=== PATIENT | female | born 1975 | race Caucasian/White ===

== ENCOUNTER → 2023-11-15 | Outpatient (CLI) | payer MEDICAID, SELFPAY ==
[2023-11-15 17:38] LABS: Absolute Lymphocyte Count 2.49 X10^3/uL (0.83-4.51); Absolute Neutrophil Count 3.6 X10^3/uL (2.0-7.7); Basophil# 0.03 X10^3/uL; Basophil% 0.5 % (0-1); Eosinophil# 0.12 X10^3/uL; Eosinophils% 1.8 % (0-5); Hematocrit 40.8 % (37-47); Hemoglobin 13.4 g/dL (12.0-15.0); Lymphocyte # 2.49 X10^3/ul (0.83-4.51); Lymphocyte % 37.4 % (19-41); Mean Corp Hgb Conc 32.8 g/dL (32-36); Mean Corpuscular Hgb 29.8 pg (27.0-32.0); Mean Corpuscular Volume 90.7 fL (81-99); Mean Platelet Vol. 9.5 fl (6.2-12.0); Monocyte# 0.42 X10^3/uL; Monocyte% 6.3 % (0-10); NRBC Flagged by Analyzer 0 % (0-5); Neutrophil # 3.58 X10^3/uL (2.7-7.7); Neutrophil % 53.8 % (47-70); Platelet Count 343 K/mm3 (150-450); RBC Distribution Width CV 12.8 % (11.6-14.6); RBC Distribution Width SD 41.7 fl (35.1-43.9); White Blood Count 6.7 K/mm3 (4.4-11.0)
[2023-11-15 18:07] LABS: AST(SGOT) 34 U/L (15-37); Alanine Aminotransfer ALT/SGPT 42 U/L (13-56); Albumin, Serum 3.9 g/dL (3.2-5.0); Alkaline Phosphatase 82 U/L (45-117); Anion Gap 5 (5-15); BUN 12 mg/dL (7-18); BUN/Creat Ratio 12.3 RATIO (10-20); Chloride 106 mmol/L (98-107); Cholesterol 209 mg/dL (200); Creatinine, Serum 0.98 mg/dL (0.55-1.02); EST Glomerular Filtration Rate 65 mL/min (>60); Est Glom Filt Rate - Afr Amer 79 mL/min (>60); Globulin 3.9 g/dL (2.2-4.2); Glucose 92 mg/dL (74-106); High Density Lipoprotein 53 mg/dL; Potassium 4.2 mmol/L (3.5-5.1); Protein, Total 7.8 g/dL (6.4-8.2); Sodium Level 137 mmol/L (136-145); Thyroid Stim Hormone (TSH) 1.98 uIU/mL (0.358-3.74); Triglycerides 164 mg/dL; Very Low Density Lipoprotein 33 mg/dL (5-40)
[2023-11-15 18:14] LABS: Vitamin D,25 Hydroxy 44.6 ng/mL
== END | disposition home or self-care (01) ==
PROVIDERS: PCP Family Medicine; Visit Provider Family Medicine
DX: I10 Essential (primary) hypertension (principal)
CPT/HCPCS: 36415; 80053; 80061; 82306; 84443; 85025

== ENCOUNTER 2023-12-04 07:02 | Emergency (ER) | payer MEDICAID, SELFPAY ==
[2023-12-04 07:02] VITALS: BP 160/91; PULSE 64; RESP 17; TEMP 35.9; O2SAT 100; BMI 31.3
--- NOTE | 2023-12-04 07:12 | CT_ITS ---
HISTORY: right lower back/flank pain. TECHNIQUE: Helically acquired images were obtained of the abdomen and pelvis without oral or IV contrast. A radiation dose optimization technique was used for this scan. 470 images. COMPARISON: None.. FINDINGS: LOWER CHEST: Mild atelectasis in the lung bases. BOWEL: Bowel including appendix nondilated. No focal pericolonic inflammatory change. PERITONEUM: No significant free fluid. LIVER: Fatty infiltration. Calcified granuloma in the right lobe. GALLBLADDER/BILIARY TREE: Surgical clips in the gallbladder fossa. SPLEEN/PANCREAS/ADRENAL GLANDS: Nonenlarged. KIDNEYS AND URETERS: 4 mm and 7 mm right lower pole calculi without hydronephrosis. No left nephrolithiasis or hydronephrosis. VESSELS: No abdominal aortic aneurysm. PELVIC ORGANS: Absent uterus. 3.3 cm left adnexal cyst. ABDOMINAL WALL: Small fat-containing umbilical hernia. BONES: Intact. CT/Abdomen/Pelvis without Cont IMPRESSION: Nonobstructing right renal calculi. Hepatic steatosis. Cholecystectomy. Small left ovarian cyst. Electronically Signed: Anitra Moya MD at 8:10 EDT ,
--- NOTE | 2023-12-04 07:14 | EDS_ITS ---
HPI History of Present Illness Chief Complaint: Back Detail of Chief Complaint: Back pain Informant: patient Onset/Context/Timing Current Severity: 04/10 Narrative Narrative: Patient presents to the emergency room complaining of back pain. Patient states initially she started with pain in her right lower back/hip a week ago. Pain and can spread across her entire low back and also feels it in her lower abdomen and has had some labor like cramping. Patient's had prior hysterectomy. She denies fevers or chills or sweats. She denies urinary symptoms. She does have remote history of kidney stones and is not sure if this feels the same. Pain is worse with certain movements at times. She denies any pain rating down her legs. She denies numbness or tingling in her legs. She denies weakness to the extremities. Denies loss of bowel or bladder function. She denies dysuria, urgency, or frequency. [facility] Medical History (Updated 12/04/23 @ 08:[address] Attila Mares, DO) Pulmonary embolism Cholecystectomy planned Hypertension Kidney stones Home Medications ?Medication ?Instructions ?Recorded ?Last Taken ?Type albuterol sulfate 90 mcg/actuation 1 - 2 puff inhalation Q4H PRN PRN 05/09/13 01/28/16 History aerosol inhaler (ProAir HFA) Asthma fluticasone propionate 100 1 puff inhalation BID 08/15/15 01/28/16 History mcg/actuation blister powder for inhalation (Flovent Diskus) ondansetron 4 mg disintegrating 4 mg PO Q8H PRN PRN Nausea #10 tabs 01/29/16 Unknown Rx tablet amlodipine 5 mg tablet 5 mg PO DAILY 12/04/23 Unknown History apixaban 5 mg tablet (Eliquis) 5 mg PO BID 12/04/23 Unknown History carvedilol 6.25 mg tablet 6.25 mg PO BID 12/04/23 Unknown History cyclobenzaprine 10 mg tablet 10 mg PO TID PRN Muscle Spasm #20 12/04/23 Unknown Rx TABLETS famotidine 40 mg tablet 40 mg PO QHS 12/04/23 Unknown History fluticasone propionate 50 2 spray intranasal DAILY 12/04/23 Unknown History mcg/actuation nasal spray,suspension hydrocodone-acetaminophen 5-325mg 1 tab PO Q4H PRN PRN Pain 2 days 12/04/23 Unknown Rx 5mg-325mg #10 TABLETS pantoprazole 40 mg tablet,delayed 40 mg PO DAILY 12/04/23 Unknown History release ropinirole 0.25 mg tablet 0.25 mg PO QHS PRN PRN restless 12/04/23 Unknown History legs Allergy/AdvReac Type Severity Reaction Status Date / Time Penicillins Allergy Anaphylaxis Verified 12/04/23 07:34 codeine AdvReac Nausea Verified 12/04/23 07:34 Social History Smoking Status: Never smoker ROS ROS ED Review of Systems ROS Unobtainable: other Constitutional Constitutional ED: Reports lethargy; Denies chills, fever(s), sweats or weight loss Eyes Eyes: Denies blurry vision, change in vision or diplopia ENT ENT ED: Denies rhinorrhea or sore throat Cardiovascular Cardiovascular: Denies chest pain, orthopnea or racing heartbeat Respiratory/Chest Respiratory/Chest: Denies cough, dyspnea, dyspnea on exertion, orthopnea or sputum Gastrointestinal Gastrointestinal: Denies abdominal pain, diarrhea, nausea or vomiting Genitourinary Genitourinary ED: Denies dysuria, hematuria or urinary frequency Musculoskeletal Musculoskeletal: Reports back pain; Denies arthralgias, myalgias or neck pain Integumentary Denies abscess, Abrasions or rash Neurologic Neurologic: Denies headache(s) or weakness Psychiatric Psychiatric: Denies anxiety, depression or suicidal thoughts Endocrine Endocrinology: Denies polydipsia, polyphagia or polyuria Hematologic/Lymphatic Hematologic/Lymphatic: Denies easy bleeding, easy bruising or lymphadenopathy Allergic/Immunologic Allergic/Immunologic ED: Denies mouth swelling, tongue swelling or urticaria EXAM Physical Exam Const Vital Signs: 12/04/23 07:02 Temperature 96.7 F L Temperature Source Temporal Pulse Rate 64 Respiratory Rate 17 Blood Pressure 160/91 H Blood Pressure Mean 114 Pulse Ox 100 Oxygen Delivery Method Room Air Positive well nourished and well developed General Appearance ED: well developed and NAD HEENT Reports TM's clear and moist mucous membranes normocephalic and atraumatic; Negative for trauma or tenderness Tympanic Membrane ED: Yes TM's clear Eyes PERRL and EOMs intact bilaterally General Eye ED: Negative for pale conjunctiva or scleral icterus Neck no lymphadenopathy, supple and no JVD General: Negative for tenderness Chest Wall inspection of chest normal and palpation of chest normal Chest: Negative for tenderness Resp normal respiratory effort and clear to auscultation bilaterally Effort and Inspection: Negative for respiratory distress or pain with movement Auscultation: Negative for rhonchi, wheezes or diminished lung sounds Cardio regular rate, regular rhythm, S1 normal heart sound, S2 normal heart sound and no murmurs Peripheral Pulses: pulses 2+ throughout GI normal to inspection, nondistended, normoactive bowel sounds, soft to palpation, non-tender, non-distended and no masses Back/Spine no thoracic nor lumbar tenderness; Negative for no CVA tenderness Back/Spine Narrative: No erythema or warmth noted to her back. She does have diffuse tenderness palpation over lumbar paraspinal musculature bilaterally. Negative straight leg raises. Deep tendon reflexes plus 2 out of 4 bilaterally at the patella and Achilles. She has normal 5 extension bilaterally. She has normal sensation to light touch. General Back: CVA tenderness bilateral Extremity normal to inspection General Extremety ED: Negative for edema General Extremity: Negative for edema Neuro oriented x3, CN's II-XII intact bilaterally, no sensory deficits noted and gait normal Sensorium / Orientation: awake, alert, oriented to person, oriented to place and oriented to time Motor Exam: strength 5/5 throughout and strength abnormal Psych mental status grossly normal Skin no rashes or lesions noted and no wounds MDM MDM MDM Narrative Medical decision making narrative: Patient presenting with back pain for about a week without injury. Pain towards the right hip and across her lower back and abdomen area. She denies pain down the legs. IV line established. She was medicated with morphine and Zofran and Toradol. CBC with differential obtained showed a white count of 5.5 with hemoglobin 13 and platelet count of 304. Chemistries unremarkable. Urinalysis was normal. I did do a CT scan of the abdomen pelvis with IV contrast to evaluate for kidney stone or other intra-abdominal process and this was essentially unremarkable. She did have nonobstructing right renal calculi. Patient also with a small left ovarian cyst. This point etiology of her pain unclear but I suspect musculoskeletal etiology. Patient will be started on Flexeril and a few [place] for pain. Advised to follow-up with her primary care physician within next 5 to 7 days. Patient advised to return if worsening pain, weakness in extremity, loss of bowel or bladder function, or condition should worsen anyway. Lab Data Attestation: I reviewed the patient's lab results. Labs: Laboratory Results - last 24 hr 12/04/23 07:35 WBC 5.5 RBC 4.34 Hgb 13.0 Hct 39.7 MCV 91.5 MCH 30.0 MCHC 32.7 RDW Std Deviation 42.9 RDW Coeff of Bibi 12.8 Plt Count 304 MPV 8.9 Immature Gran % (Auto) 0.400 Neut % (Auto) 45.7 L Lymph % (Auto) 43.3 H [place] % (Auto) 7.6 Eos % (Auto) 2.5 Baso % (Auto) 0.5 Absolute Neuts (auto) 2.5 Absolute Lymphs (auto) 2.39 Nucleated RBC % 0 Sodium 138 Potassium 3.9 Chloride 108 H Carbon Dioxide 25.0 Anion Gap 5 BUN 11 Creatinine 0.87 Estim Creat Clear Calc 83.18 Est GFR (MDRD) Af Amer 89 Est GFR (MDRD) Non-Af 74 BUN/Creatinine Ratio 12.6 Glucose 105 Calcium 8.9 Urine Color Yellow Urine Clarity Clear Urine pH 6.0 Ur Specific [place] 1.010 Urine Protein Negative Urine Glucose (UA) Normal Urine Ketones Negative Urine Occult Blood Negative Urine Nitrite Negative Urine Bilirubin Negative Urine Urobilinogen Normal Ur Leukocyte Esterase Negative Urine RBC 0 SEEN Urine WBC 0-5 SEEN Ur Squamous Epith Cells 0-5 SEEN Urine Bacteria 0 SEEN Urine Mucus 0 SEEN Radiography Diagnostic Testing: Clinical Impression(s) from Imaging Studies Abdomen/Pelvis CT 12/04/23 07:12 IMPRESSION: Nonobstructing right renal calculi. Hepatic steatosis. Cholecystectomy. Small left ovarian cyst. Electronically Signed: Anitra Moya MD at 8:10 EDT , Discharge Plan Triage Chief Complaint: Back ED Provider: Attila Mares Dx/Rx/DC Orders Clinical Impression: Back pain Instructions: ED Back Pain (Acute or Chronic) Prescriptions: New cyclobenzaprine 10 mg tablet 10 mg PO TID PRN (Reason: Muscle Spasm) Qty: 20 0RF hydrocodone-acetaminophen 5-325 mg tablet 1 tab PO Q4H PRN PRN (Reason: Pain) 2 Days Qty: 10 0RF No Action albuterol sulfate [ProAir HFA] 1 PUFF inhaler 1 - 2 puff inhalation Q4H PRN PRN (Reason: Asthma) Patient Comments: shortness of breath fluticasone propionate [Flovent Diskus] 1 PUFF inhaler 1 puff inhalation BID Patient Comments: breathing ondansetron 4 MG tablet 4 mg PO Q8H PRN PRN (Reason: Nausea) Qty: 10 0RF Patient Comments: nausea famotidine 40 mg tablet 40 mg PO QHS pantoprazole 40 mg tablet,delayed release (DR/EC) 40 mg PO DAILY fluticasone propionate 50 mcg/actuation spray,suspension 2 spray INTRANASAL DAILY carvedilol 6.25 mg tablet 6.25 mg PO BID amlodipine 5 mg tablet 5 mg PO DAILY ropinirole 0.25 mg tablet 0.25 mg PO QHS PRN PRN (Reason: restless legs) Eliquis 5 mg tablet 5 mg PO BID Primary Care Provider: Dwayne Dorado Referrals: Bradly Asher MD [Non-Staff] - Print Language: Slovak Disposition Disposition: Home, Self Care
[2023-12-04] MEDS: 0.9% Normal Saline (1000mL) 1,000 ML 150 ML IV (07:28)
[2023-12-04] MEDS: Ondansetron 4 MG/2 ML Vial IV (07:29)
[2023-12-04] MEDS: Morphine 4 MG/ML Syringe IV (07:29)
[2023-12-04] MEDS: Ketorolac 30 MG/ML Syringe IV (07:29)
[2023-12-04 07:43] LABS: Bacteria 0 SEEN /hpf (None Seen); Mucous, Urine 0 SEEN /hpf (<or=2+); Red Blood Cells-Urine 0 SEEN /hpf (0-5)
[2023-12-04 07:46] LABS: Absolute Lymphocyte Count 2.39 X10^3/uL (0.83-4.51); Absolute Neutrophil Count 2.5 X10^3/uL (2.0-7.7); Basophil# 0.03 X10^3/uL; Basophil% 0.5 % (0-1); Eosinophil# 0.14 X10^3/uL; Eosinophils% 2.5 % (0-5); Hematocrit 39.7 % (37-47); Lymphocyte # 2.39 X10^3/ul (0.83-4.51); Lymphocyte % 43.3 % (19-41); Mean Corp Hgb Conc 32.7 g/dL (32-36); Mean Corpuscular Volume 91.5 fL (81-99); Mean Platelet Vol. 8.9 fl (6.2-12.0); Monocyte# 0.42 X10^3/uL; Monocyte% 7.6 % (0-10); NRBC Flagged by Analyzer 0 % (0-5); Neutrophil # 2.52 X10^3/uL (2.7-7.7); Neutrophil % 45.7 % (47-70); Platelet Count 304 K/mm3 (150-450); RBC Distribution Width CV 12.8 % (11.6-14.6); RBC Distribution Width SD 42.9 fl (35.1-43.9); Red Blood Count 4.34 M/mm3 (4.2-5.4); White Blood Count 5.5 K/mm3 (4.4-11.0)
[2023-12-04 07:57] LABS: Anion Gap 5 (5-15); BUN 11 mg/dL (7-18); BUN/Creat Ratio 12.6 RATIO (10-20); Calcium,Total 8.9 mg/dL (8.5-10.1); Chloride 108 mmol/L (98-107); Creatinine, Serum 0.87 mg/dL (0.55-1.02); EST Glomerular Filtration Rate 74 mL/min (>60); Est Glom Filt Rate - Afr Amer 89 mL/min (>60); Estimated Creatinine Clearance 83.18 ml/min; Glucose 105 mg/dL (74-106); Potassium 3.9 mmol/L (3.5-5.1); Sodium Level 138 mmol/L (136-145)
[2023-12-04 08:12] LABS: Color, Urine Yellow (Yellow); Glucose, Dipstick Normal (Normal); Ketone-Dipstick Negative (Negative); Leukocyte Esterase-Dipstick Negative /ul (Negative); Nitrite-Dipstick Negative (Negative); Occult Blood-Urine Negative /ul (Negative); Protein-Dipstick Negative (Negative); Urine Bilirubin Dipstick Negative (Negative); Urine Clarity Clear (Clear); Urine Urobilinogen Normal (Normal)
[2023-12-04 08:20] LABS: Squamous Epithelial Cells - UA 0-5 SEEN /hpf (5-10); White Blood Cells 0-5 SEEN /hpf (0-5)
[2023-12-04 08:45] VITALS: BP 128/76; PULSE 94; RESP 16; TEMP 36.2; O2SAT 98
== END 2023-12-04 08:48 | disposition home or self-care (01) ==
PROVIDERS: Emergency Provider Emergency Medicine; PCP Family Medicine; Visit Provider Emergency Medicine
DX: M54.9 Dorsalgia, unspecified (principal); Z90.710 Acquired absence of both cervix and uterus; Z90.49 Acquired absence of other specified parts of digestive tract; I10 Essential (primary) hypertension; Z79.899 Other long term (current) drug therapy
CPT/HCPCS: 74176; 80048; 81001; 85025; 96361; 96374; 96375; 99283; J7030; A4216; J2405

== ENCOUNTER 2024-01-03 08:03 | Emergency (ER) | payer MEDICAID, SELFPAY ==
[2024-01-03 08:04] VITALS: BP 153/99; PULSE 95; RESP 14; TEMP 36.6; O2SAT 96; BMI 30.8
--- NOTE | 2024-01-03 08:30 | ED.VIS.LOWEX ---
HPI History of Present Illness Chief Complaint: Lower Extremity Injury Narrative Narrative: 48-year-old female past medical history of pulmonary emboli, on Eliquis, presents with pain in her left calf after trying to push a large vehicle. She states that her daughter ran out of gas, and she was helping to push a large SUV. She felt a pop and cramping in her left calf. She states that the cramping is so bad that she is unable to fully flatten her foot at times. It is worse with movement. She denies other injury. She did not fall, or hit her head. She has diffuse pain throughout her left calf on both sides. She was able to drive herself here, however. This happened a few hours ago. [facility] Medical History Pulmonary embolism Cholecystectomy planned Hypertension Kidney stones Home Medications ?Medication ?Instructions ?Recorded ?Last Taken ?Type albuterol sulfate 90 mcg/actuation 1 - 2 puff inhalation Q4H PRN PRN 05/09/13 01/28/16 History aerosol inhaler (ProAir HFA) Asthma fluticasone propionate 100 1 puff inhalation BID 08/15/15 01/28/16 History mcg/actuation blister powder for inhalation (Flovent Diskus) ondansetron 4 mg disintegrating 4 mg PO Q8H PRN PRN Nausea #10 tabs 01/29/16 Unknown Rx tablet amlodipine 5 mg tablet 5 mg PO DAILY 12/04/23 Unknown History apixaban 5 mg tablet (Eliquis) 5 mg PO BID 12/04/23 Unknown History carvedilol 6.25 mg tablet 6.25 mg PO BID 12/04/23 Unknown History cyclobenzaprine 10 mg tablet 10 mg PO TID PRN Muscle Spasm #20 12/04/23 Unknown Rx TABLETS famotidine 40 mg tablet 40 mg PO QHS 12/04/23 Unknown History fluticasone propionate 50 2 spray intranasal DAILY 12/04/23 Unknown History mcg/actuation nasal spray,suspension hydrocodone-acetaminophen 5-325mg 1 tab PO Q4H PRN PRN Pain 2 days 12/04/23 Unknown Rx 5mg-325mg #10 TABLETS pantoprazole 40 mg tablet,delayed 40 mg PO DAILY 12/04/23 Unknown History release ropinirole 0.25 mg tablet 0.25 mg PO QHS PRN PRN restless 12/04/23 Unknown History legs cyclobenzaprine 10 mg tablet 10 mg PO TID PRN Muscle Spasm #20 01/03/24 Unknown Rx TABLETS tramadol 50 mg tablet 50 mg PO Q6H PRN pain 3 days #12 01/03/24 Unknown Rx tabs Allergy/AdvReac Type Severity Reaction Status Date / Time Penicillins Allergy Anaphylaxis Verified 01/03/24 08:05 codeine AdvReac Nausea Verified 01/03/24 08:05 Social History Smoking Status: Never smoker ROS ROS ED ROS Narrative Constitutional: No fever, no chills. HEENT: No sore throat. No neck pain. No loss of vision. No rhinorrhea. Cardiovascular: No chest pain. No palpitations. No pedal edema. Respiratory: No cough, no shortness of breath. Abdominal: No abdominal pain. No nausea. No vomiting. Genitourinary: No dysuria. No hematuria. Musculoskeletal: Left calf pain. Positive cramping, worse with movement of foot. Mild difficulty standing and weightbearing. No arthralgias. Neurologic: No headaches. No dizziness. No lightheadedness. Skin: No rash. No change in color. EXAM Physical Exam Narrative Exam Narrative: Afebrile. Vital signs noted. Regular rate and rhythm. Lungs clear to auscultation bilaterally. Abdomen soft and nontender with normal active bowel sounds. Diffuse tenderness to palpation left calf. Negative Sotelo sign while lying on stomach. Neurovascular intact distally with palpable dorsalis pedis pulse. No palpable deficit of Achilles tendon distally. Able to flex and extend at left knee. Able to raise leg off bed without difficulty. Const Vital Signs: 01/03/24 08:04 01/03/24 08:04 Temperature 97.9 F Temperature Source Temporal Pulse Rate 95 95 Respiratory Rate 14 14 Blood Pressure 153/99 H 153/99 H Blood Pressure Mean 117 117 Pulse Ox 96 96 Oxygen Delivery Method Room Air Room Air MDM MDM MDM Narrative Medical decision making narrative: In the differential diagnosis would be Achilles tendon rupture versus calf strain. I have low suspicion for DVT as she is already on Eliquis. Given her diffuse tenderness to palpation of the bilateral calfs and negative Sotelo test while lying on stomach, I have low suspicion for Achilles tendon rupture. Patient did drive herself here so I am unable to give her anything stronger for pain. She was given Tylenol. Additionally, she is on a blood thinner. I wrote her prescriptions for a muscle relaxer that she can take at home. I did write her for 12 tramadol tablets as well. She was placed in an [place]ek wrap by the RN and given crutches to be weightbearing as tolerated. I feel she can be discharged to follow-up. Return instructions to the emergency department were reviewed. Disposition is discharged home in stable condition. Discharge Plan Triage Chief Complaint: Lower Extremity Injury ED Provider: Eulogio Acuña Dx/Rx/DC Orders Clinical Impression: Strain of left calf muscle Instructions: ED Muscle Strain, Extremity Prescriptions: New tramadol 50 mg tablet 50 mg PO Q6H PRN (Reason: pain) 3 Days Qty: 12 0RF cyclobenzaprine 10 mg tablet 10 mg PO TID PRN (Reason: Muscle Spasm) Qty: 20 0RF No Action albuterol sulfate [ProAir HFA] 1 PUFF inhaler 1 - 2 puff inhalation Q4H PRN PRN (Reason: Asthma) Patient Comments: shortness of breath fluticasone propionate [Flovent Diskus] 1 PUFF inhaler 1 puff inhalation BID Patient Comments: breathing ondansetron 4 MG tablet 4 mg PO Q8H PRN PRN (Reason: Nausea) Qty: 10 0RF Patient Comments: nausea famotidine 40 mg tablet 40 mg PO QHS pantoprazole 40 mg tablet,delayed release (DR/EC) 40 mg PO DAILY fluticasone propionate 50 mcg/actuation spray,suspension 2 spray INTRANASAL DAILY carvedilol 6.25 mg tablet 6.25 mg PO BID amlodipine 5 mg tablet 5 mg PO DAILY ropinirole 0.25 mg tablet 0.25 mg PO QHS PRN PRN (Reason: restless legs) Eliquis 5 mg tablet 5 mg PO BID cyclobenzaprine 10 mg tablet 10 mg PO TID PRN (Reason: Muscle Spasm) Qty: 20 0RF hydrocodone-acetaminophen 5-325 mg tablet 1 tab PO Q4H PRN PRN (Reason: Pain) 2 Days Qty: 10 0RF Primary Care Provider: Dwayne Dorado Referrals: Dwayne Dorado MD [Primary Care Provider] - 1 Week Print Language: Telugu Disposition Disposition: Home, Self Care
[2024-01-03] MEDS: Acetaminophen 500 MG Tablet 1000 MG PO (08:32)
[2024-01-03 08:41] VITALS: BP 134/66; PULSE 61; RESP 18; TEMP 36.4; O2SAT 99
== END 2024-01-03 08:45 | disposition home or self-care (01) ==
LOC: ED 09:13
PROVIDERS: Emergency Provider Emergency Medicine; PCP Family Medicine; Visit Provider Emergency Medicine
DX: S86.112A Strain of other muscle(s) and tendon(s) of posterior muscle group at lower leg level, left leg, initial encounter (principal); I10 Essential (primary) hypertension; Z86.711 Personal history of pulmonary embolism; Z79.01 Long term (current) use of anticoagulants; X58.XXXA Exposure to other specified factors, initial encounter; Y93.89 Activity, other specified; Z90.49 Acquired absence of other specified parts of digestive tract; Z79.899 Other long term (current) drug therapy
CPT/HCPCS: 99283

== ENCOUNTER 2024-01-22 20:10 | Emergency (ER) | payer MEDICAID, SELFPAY ==
[2024-01-22 20:10] VITALS: BP 148/103; PULSE 132; RESP 22; TEMP 38.2; O2SAT 95
[2024-01-22 20:15] VITALS: BP 134/95; PULSE 117; RESP 19; TEMP 37.6; O2SAT 95
--- NOTE | 2024-01-22 20:23 | EDS_ITS ---
HPI History of Present Illness Chief Complaint: Fever Narrative Narrative: 48-year-old female with cough, congestion, fevers, chills, myalgias. Patient states this started this morning. Patient states has been taking Tylenol and ibuprofen but has to be careful with the ibuprofen because she is on Eliquis for history of PE. She has not missed any doses. She is not having chest pain. She is coughing. She has rhinorrhea congestion. She last took ibuprofen about an hour ago. [facility] Medical History Pulmonary embolism Cholecystectomy planned Hypertension Kidney stones Home Medications ?Medication ?Instructions ?Recorded ?Last Taken ?Type albuterol sulfate 90 mcg/actuation 1 - 2 puff inhalation Q4H PRN PRN 05/09/13 01/22/24 History aerosol inhaler (ProAir HFA) Asthma fluticasone propionate 100 1 puff inhalation BID 08/15/15 01/22/24 History mcg/actuation blister powder for inhalation (Flovent Diskus) amlodipine 5 mg tablet 5 mg PO DAILY 12/04/23 01/22/24 History apixaban 5 mg tablet (Eliquis) 5 mg PO BID 12/04/23 01/22/24 History carvedilol 6.25 mg tablet 6.25 mg PO BID 12/04/23 01/22/24 History famotidine 40 mg tablet 40 mg PO QHS 12/04/23 01/21/24 History fluticasone propionate 50 2 spray intranasal DAILY 12/04/23 01/22/24 History mcg/actuation nasal spray,suspension pantoprazole 40 mg tablet,delayed 40 mg PO DAILY 12/04/23 01/22/24 History release ropinirole 0.25 mg tablet 0.25 mg PO QHS PRN PRN restless 12/04/23 01/21/24 Hi story legs ondansetron 4 mg disintegrating 4 mg PO Q8H PRN PRN Nausea #14 tabs 01/22/24 Unknown Rx tablet Allergy/AdvReac Type Severity Reaction Status Date / Time Penicillins Allergy Anaphylaxis Verified 01/22/24 20:10 codeine AdvReac Nausea Verified 01/22/24 20:10 Surgical History History of bladder surgery History of hysterectomy Social History Smoking Status: Never smoker ROS ROS ED Constitutional Constitutional ED: Reports chills and fever(s); Denies sweats Eyes Eyes: Denies blurry vision or change in vision ENT ENT ED: Reports sore throat; Denies ear pain Cardiovascular Cardiovascular: Denies chest pain, palpitations or racing heartbeat Respiratory/Chest Respiratory/Chest: Reports cough; Denies dyspnea or sputum Gastrointestinal Gastrointestinal: Denies abdominal pain, constipation, diarrhea, nausea or vomiting Genitourinary Genitourinary ED: Denies dysuria, hematuria or urinary frequency Musculoskeletal Musculoskeletal: Reports myalgias; Denies arthralgias or neck pain Integumentary Denies abscess, Abrasions or rash Neurologic Neurologic: Reports headache(s); Denies paresthesias or weakness Psychiatric Psychiatric: Denies anxiety, depression, suicidal ideation or suicidal thoughts Endocrine Endocrinology: Denies polydipsia or polyuria EXAM Physical Exam Const Vital Signs: 01/22/24 20:10 01/22/24 20:15 01/22/24 20:19 Temperature 100.8 F H 99.7 F H Temperature Source Temporal Oral Pulse Rate 132 H 117 H Respiratory Rate 22 H 19 H Respiratory Effort Normal Respiratory Pattern Normal Blood Pressure 148/103 H 134/95 H Blood Pressure Mean 118 108 Pulse Ox 95 95 Oxygen Delivery Method Room Air Room Air Positive well nourished General Appearance ED: NAD; Negative for pallor HEENT Reports moist mucous membranes Eyes PERRL and EOMs intact bilaterally Neck no lymphadenopathy Chest Wall inspection of chest normal Resp normal respiratory effort and clear to auscultation bilaterally Auscultation: Negative for rales, rhonchi or wheezes Cardio regular rhythm Rate: tachycardic GI normal to inspection, nondistended, normoactive bowel sounds Neuro oriented x3 Sensorium / Orientation: alert Psych mental status grossly normal Skin no rashes or lesions noted General Skin Exam: Negative for jaundice or pallor MDM MDM MDM Narrative Medical decision making narrative: Patient presenting with fever, chills, 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 I suspect this is a viral etiology that started this morning. Differential also includes pneumonia, de hydration, anemia. Patient is febrile on arrival but her fever broke. She was initially tachycardic and tachypneic. Will obtain a CBC to assess white blood cell count, hemoglobin complaints. BMP to assess renal function and electrolytes. Patient is given IV fluids. Will check a chest x-ray. CBC shows normal white blood cell count of 6.4. Hemoglobin 13.1. Platelets are normal at 268. Renal function is normal. Electrolytes normal except for potassium 3.3. Chest x-ray interpreted by myself shows no acute cardiopulmonary process. The radiologist interprets this and agrees. Rapid COVID came back as positive. Patient counseled on findings. I will send her home with Kalyani. She is to use Tylenol at home for fevers. I recommend she drink plenty of fluids. Return precautions are discussed. Impression: 1. COVID-19 Lab Data Attestation: I reviewed the patient's lab results. Labs: Laboratory Results - last 24 hr 01/22/24 20:32 WBC 6.4 RBC 4.27 Hgb 13.1 Hct 38.8 MCV 90.9 MCH 30.7 MCHC 33.8 RDW Std Deviation 41.8 RDW Coeff of Bibi 12.8 Plt Count 268 MPV 8.8 Immature Gran % (Auto) 0.200 Neut % (Auto) 79.8 H Lymph % (Auto) 9.5 L [place] % (Auto) 9.1 Eos % (Auto) 1.1 Baso % (Auto) 0.3 Absolute Neuts (auto) 5.1 Absolute Lymphs (auto) 0.61 L Nucleated RBC % 0 Sodium 139 Potassium 3.3 L Chloride 106 Carbon Dioxide 25.0 Anion Gap 8 BUN 7 Creatinine 1.00 Estim Creat Clear Calc 73.56 Est GFR (MDRD) Af Amer 77 Est GFR (MDRD) Non-Af 63 BUN/Creatinine Ratio 7.0 L Glucose 103 Calcium 8.6 Discharge Plan Triage Chief Complaint: Fever ED Provider: Dany Stanley Dx/Rx/DC Orders Instructions: Coronavirus Disease 2019 (COVID-19): Caring for Yourself or Others Prescriptions: New ondansetron 4 mg tablet,disintegrating 4 mg PO Q8H PRN PRN (Reason: Nausea) Qty: 14 0RF No Action albuterol sulfate [ProAir HFA] 1 PUFF inhaler 1 - 2 puff inhalation Q4H PRN PRN (Reason: Asthma) Patient Comments: shortness of breath fluticasone propionate [Flovent Diskus] 1 PUFF inhaler 1 puff inhalation BID Patient Comments: breathing famotidine 40 mg tablet 40 mg PO QHS pantoprazole 40 mg tablet,delayed release (DR/EC) 40 mg PO DAILY fluticasone propionate 50 mcg/actuation spray,suspension 2 spray INTRANASAL DAILY carvedilol 6.25 mg tablet 6.25 mg PO BID amlodipine 5 mg tablet 5 mg PO DAILY ropinirole 0.25 mg tablet 0.25 mg PO QHS PRN PRN (Reason: restless legs) Eliquis 5 mg tablet 5 mg PO BID Stand Alone Forms: ED Work / School Excuse Primary Care Provider: Dwayne Dorado Referrals: Dwayne Dorado MD [Primary Care Provider] - Print Language: Qatari Disposition Disposition: Home, Self Care
[2024-01-22] MEDS: 0.9% Normal Saline (1000mL) 1,000 ML 999 ML IV (20:34)
[2024-01-22] MEDS: Ondansetron 4 MG/2 ML Vial IV (20:35)
--- NOTE | 2024-01-22 20:43 | RAD_ITS ---
INDICATION: cough EXAMINATION/TECHNIQUE: X-RAY - XR Chest 1 View COMPARISON: 11/03/2015 chest radiograph. 03/13/[address] Findings: Single frontal view of the chest. LUNG PARENCHYMA: No acute focal airspace disease or mass lesion. PLEURA: No pleural effusion. No pneumothorax. HEART/GREAT VESSELS: Prominent azygos vein at the azygous fissure again noted. Cardiomediastinal silhouette is otherwise unremarkable. BONES: Osseous structures are unremarkable for age. RAD/Chest 1 View (Portable) IMPRESSION: Stable chest with no acute disease. Electronically Signed: Winston Gomez MD at 21:45 EDT ,
[2024-01-22 20:47] LABS: Absolute Lymphocyte Count 0.61 X10^3/uL (0.83-4.51); Absolute Neutrophil Count 5.1 X10^3/uL (2.0-7.7); Basophil# 0.02 X10^3/uL; Basophil% 0.3 % (0-1); Eosinophil# 0.07 X10^3/uL; Eosinophils% 1.1 % (0-5); Hematocrit 38.8 % (37-47); Hemoglobin 13.1 g/dL (12.0-15.0); Lymphocyte # 0.61 X10^3/ul (0.83-4.51); Lymphocyte % 9.5 % (19-41); Mean Corp Hgb Conc 33.8 g/dL (32-36); Mean Corpuscular Hgb 30.7 pg (27.0-32.0); Mean Corpuscular Volume 90.9 fL (81-99); Mean Platelet Vol. 8.8 fl (6.2-12.0); Monocyte# 0.58 X10^3/uL; Monocyte% 9.1 % (0-10); NRBC Flagged by Analyzer 0 % (0-5); Neutrophil # 5.11 X10^3/uL (2.7-7.7); Neutrophil % 79.8 % (47-70); Platelet Count 268 K/mm3 (150-450); RBC Distribution Width CV 12.8 % (11.6-14.6); RBC Distribution Width SD 41.8 fl (35.1-43.9); Red Blood Count 4.27 M/mm3 (4.2-5.4); White Blood Count 6.4 K/mm3 (4.4-11.0)
[2024-01-22 21:02] LABS: Anion Gap 8 (5-15); BUN 7 mg/dL (7-18); Calcium,Total 8.6 mg/dL (8.5-10.1); Chloride 106 mmol/L (98-107); EST Glomerular Filtration Rate 63 mL/min (>60); Est Glom Filt Rate - Afr Amer 77 mL/min (>60); Estimated Creatinine Clearance 73.56 ml/min; Glucose 103 mg/dL (74-106); Potassium 3.3 mmol/L (3.5-5.1); Sodium Level 139 mmol/L (136-145)
[2024-01-22 21:55] VITALS: BP 142/85; PULSE 118; RESP 18; TEMP 37.6; O2SAT 95
== END 2024-01-22 21:55 | disposition home or self-care (01) ==
PROVIDERS: Emergency Provider Student in an Organized Health Care Education/Training Program; PCP Family Medicine; Visit Provider Student in an Organized Health Care Education/Training Program
DX: U07.1 COVID-19 (principal); I10 Essential (primary) hypertension; Z79.01 Long term (current) use of anticoagulants; Z79.899 Other long term (current) drug therapy; Z86.711 Personal history of pulmonary embolism
CPT/HCPCS: 71045; 80048; 85025; 87631; 96361; 96374; 99282; J7030; A4216; J2405

== ENCOUNTER → 2024-02-18 | Outpatient (CLI) | payer MEDICAID, SELFPAY ==
[2024-02-18 11:02] LABS: Anion Gap 2 (5-15); BUN 13 mg/dL (7-18); BUN/Creat Ratio 14.3 RATIO (10-20); Calcium,Total 9.1 mg/dL (8.5-10.1); Chloride 108 mmol/L (98-107); Creatinine, Serum 0.91 mg/dL (0.55-1.02); EST Glomerular Filtration Rate 71 mL/min (>60); Est Glom Filt Rate - Afr Amer 86 mL/min (>60); Glucose 104 mg/dL (74-106); Potassium 4.3 mmol/L (3.5-5.1); Sodium Level 138 mmol/L (136-145)
== END | disposition home or self-care (01) ==
PROVIDERS: PCP Family Medicine; Referring Provider Family Medicine; Visit Provider Family Medicine
DX: Z00.00 Encounter for general adult medical examination without abnormal findings (principal)
CPT/HCPCS: 36415; 80048

== ENCOUNTER → 2024-02-22 | Outpatient (CLI) | payer MEDICAID, SELFPAY ==
--- NOTE | 2024-02-22 14:18 | BI_ITS ---
MAMMOGRAPHY - BILATERAL SCREENING REASON FOR EXAM: Female, 48 years old. Routine annual screening examination. PERTINENT HISTORY: Grandmother with breast cancer. TECHNIQUE: Digital bilateral breast rebekah (3D mammographic acquisition) in the CC and MLO projections. 2-D mediolateral oblique (MLO) and craniocaudad (CC) views of both breasts were obtained. CAD: Full Field Digital Mammography with Computer Added Detection was performed. COMPARISON: Comparison is made with prior outside examination dated March 09, 2018. FINDINGS: Breast Composition: There are scattered areas of fibroglandular density. There are no dominant masses or suspicious calcifications. No other significant abnormalities are identified. There has been no significant change since the prior study. BI/SCRN MAMM (CAD)W/REBEKAH BILAT IMPRESSION: Stable bilateral screening mammogram. Yearly follow-up mammogram recommended. (A) ASSESSMENT CATEGORY: BIRADS Category 1: Negative. A letter regarding these results will be sent to the patient by the facility within 30 days. Approximately 10% of breast cancers are not detected by mammography. A normal mammogram should not delay biopsy of a clinically suspicious abnormality. [id number] Electronically Signed: Alvaro Ornelas MD at 15:02 EDT ,
== END | disposition home or self-care (01) ==
LOC: OPBI 14:17
PROVIDERS: PCP Family Medicine; Referring Provider Family Medicine; Visit Provider Family Medicine
DX: Z12.31 Encounter for screening mammogram for malignant neoplasm of breast (principal); Z80.3 Family history of malignant neoplasm of breast
CPT/HCPCS: 77063; 77067

== ENCOUNTER 2024-03-24 08:58 | Emergency (ER) | payer MEDICAID, SELFPAY ==
[2024-03-24 08:59] VITALS: BP 170/99; PULSE 71; RESP 16; TEMP 36.6; O2SAT 99
[2024-03-24 09:48] VITALS: BMI 30.4
--- NOTE | 2024-03-24 10:20 | CT_ITS ---
STUDY: CT ABDOMEN AND PELVIS WITH CONTRAST REASON FOR EXAM: Female, 48 years old.abdominal pain diarrhea ABD PAIN X-WEEKS X-HTN SURG-HYST RADIATION DOSAGE (If Supplied By Facility): CTDIvol = ( 17.52 ) mGy, DLP = ( 993.78 ) mGycm TECHNIQUE: Transaxial images were obtained from the dome of the diaphragm to the symphysis pubis without oral contrast. ml of 100mL Isovue-300 contrast was administered. Sagittal and coronal images were reconstructed. Individualized dose optimization techniques were used for this CT. COMPARISON: CT of abdomen and pelvis dated December 04, 2023 FINDINGS: The visualized lung bases are unremarkable. The visualized portions of the heart are within normal limits. There is decreased attenuation of the liver consistent with steatosis. There are surgical clips in the gallbladder fossa consistent with a prior cholecystectomy. Normal spleen. Normal pancreas. Normal bilateral adrenal glands. Redemonstration of multiple calyceal stones of the right kidney maximally measuring 6.5 mm, without hydronephrosis or pyelonephritis or perinephric stranding. No renal masses are present. Normal left kidney. Normal visualized stomach. Normal small intestine. Normal colon. The appendix is visualized and appears normal. No free air or free fluid or bowel dilatation. No abscess is present. No bowel wall thickening is present. No colonic diverticula are seen. Normal abdominal aorta. Normal inferior vena cava. Normal retroperitoneum. Normal urinary bladder. Prior supracervical hysterectomy. No interval change in small simple cyst of the left ovary measuring 3.84 cm in diameter that does not require any additional imaging. Small parenchymal calcification of the left ovary unchanged. Normal abdominal wall. Normal osseous structures. CT/Abdomen/Pelvis W IV Cont ONLY IMPRESSION: 1. Stable nonobstructing right kidney stones 2. Prior supracervical hysterectomy. No interval change in small simple cyst of the left ovary measuring 3.84 cm in diameter that does not require any additional imaging. Small parenchymal calcification of the left ovary unchanged. Electronically Signed: Moses Hernandez MD at 12:03 EDT ,
--- NOTE | 2024-03-24 10:30 | EX.ED.DYSGE1 ---
HPI History of Present Illness Chief Complaint: Abd Pain Informant: patient Narrative Narrative: 48-year-old female presenting to the emergency room with a chief complaint of abdominal pain. Patient states that she has been having abdominal pain for months. She states that last fall she was admitted to [facility] for several weeks following who for ectomy that was complicated with blood clots and neurologic symptoms. She states at that time she had a colonoscopy due to abdominal pain and diarrhea. She states that symptoms have worsened over the past weeks. She notes chronically that when she eats foods she frequently gets diarrhea. She states she saw her primary care doctor who has been trying to get her a CT scan and has referred her to GI with appointment in April. She states that over the weekend the abdominal pain across the lower abdomen and into her low back is worse. No reported fevers. No history of diverticulitis or colitis. She denies any urinary symptoms. She states that she has had prior hysterectomy and cholecystectomy. [facility] Medical History Pulmonary embolism Cholecystectomy planned Hypertension Kidney stones Home Medications ?Medication ?Instructions ?Recorded ?Last Taken ?Type albuterol sulfate 90 mcg/actuation 1 - 2 puff inhalation Q4H PRN PRN 05/09/13 01/22/24 History aerosol inhaler (ProAir HFA) Asthma fluticasone propionate 100 1 puff inhalation BID 08/15/15 01/22/24 History mcg/actuation blister powder for inhalation (Flovent Diskus) amlodipine 5 mg tablet 5 mg PO DAILY 12/04/23 01/22/24 History apixaban 5 mg tablet (Eliquis) 5 mg PO BID 12/04/23 01/22/24 History carvedilol 6.25 mg tablet 6.25 mg PO BID 12/04/23 01/22/24 History famotidine 40 mg tablet 40 mg PO QHS 12/04/23 01/21/24 History fluticasone propionate 50 2 spray intranasal DAILY 12/04/23 01/22/24 History mcg/actuation nasal spray,suspension pantoprazole 40 mg tablet,delayed 40 mg PO DAILY 12/04/23 01/22/24 History release ropinirole 0.25 mg tablet 0.25 mg PO QHS PRN PRN restless 12/04/23 01/21/24 History legs ondansetron 4 mg disintegrating 4 mg PO Q8H PRN PRN Nausea #14 tabs 01/22/24 Unknown Rx tablet potassium chloride 10 mEq 10 meq PO QDAY 03/06/24 Unknown History capsule,extended release dicyclomine 20 mg tablet 20 mg PO TID #30 tabs 03/24/24 Unknown Rx Allergy/AdvReac Type Severity Reaction Status Date / Time Penicillins Allergy Anaphylaxis Verified 03/24/24 09:03 naproxen (From Naprosyn) AdvReac Unknown Nausea Verified 03/24/24 09:03 codeine AdvReac Nausea Verified 03/24/24 09:03 Surgical History History of bladder surgery History of hysterectomy Social History Smoking Status: Never smoker ROS ROS ED Constitutional Constitutional ED: Denies chills, fever(s) or weight loss Eyes Eyes: Denies change in vision or diplopia ENT ENT ED: Denies ear pain, rhinorrhea or sore throat Cardiovascular Cardiovascular: Denies chest pain, orthopnea, palpitations or racing heartbeat Respiratory/Chest Respiratory/Chest: Denies cough, dyspnea or orthopnea Gastrointestinal Gastrointestinal: Reports abdominal pain and diarrhea; Denies nausea or vomiting Genitourinary Genitourinary ED: Denies dysuria, hematuria or urinary frequency Musculoskeletal Musculoskeletal: Reports back pain; Denies arthralgias, myalgias or neck pain Integumentary Denies abscess or rash Neurologic Neurologic: Denies headache(s) or weakness Psychiatric Psychiatric: Denies anxiety, depression, suicidal ideation or suicidal thoughts Endocrine Endocrinology: Denies polydipsia, polyphagia or polyuria Allergic/Immunologic Allergic/Immunologic ED: Denies mouth swelling, tongue swelling or urticaria EXAM Physical Exam Const Vital Signs: 03/24/24 08:59 03/24/24 11:10 Temperature 98 F Temperature Source Oral Pulse Rate 71 75 Respiratory Rate 16 16 Blood Pressure 170/99 H 139/93 H Blood Pressure Mean 122 108 Pulse Ox 99 97 Oxygen Delivery Method Room Air Room Air Positive well nourished, well developed and obese General Appearance ED: well developed Nutritional Appearance: obese HEENT Reports normocephalic, head/scalp atraumatic and moist mucous membranes Eyes PERRL and EOMs intact bilaterally Neck no lymphadenopathy, supple and no JVD Resp normal respiratory effort and clear to auscultation bilaterally Cardio regular rate, regular rhythm and no murmurs GI no masses Inspection: Negative for abdominal distention Auscultation: normoactive bowel sounds Palpation: soft and tender LLQ, RLQ and suprapubic; Negative for guarding or rebound tenderness present Back/Spine no CVA tenderness and normal ROM Extremity normal to inspection General Extremety ED: Negative for edema General Extremity: Negative for edema Neuro oriented x3 and CN's II-XII intact bilaterally Sensorium / Orientation: alert Motor Exam: strength 5/5 throughout Psych mental status grossly normal Mood & Affect: Negative for depressed or tearful Skin no rashes or lesions noted and no wounds MDM MDM MDM Narrative Medical decision making narrative: Differential diagnosis includes but not limited to inflammatory bowel syndrome/disease, colitis, intra-abdominal abscess, food allergy, pancreatitis White count 6.2 hemoglobin 13.9 platelet count 322. BMP liver enzymes and lipase essentially negative. Urinalysis no overt infection. CT of the abdomen pelvis demonstrates an ovarian cyst on the left. This is measuring at 3.84 cm. Do not see any obvious abscess or inflammatory condition. Patient was treated with Toradol and Zofran. Believe the patient can be discharged home I can write for some Bentyl. I suggest she keep a food diary. She should obtain her colonoscopy results from last. Take them with her to her GI appointment the beginning of next month. History & Record Review Discussion w/independent historian: Patient Lab Data Attestation: I reviewed the patient's lab results. Labs: Laboratory Results - last 24 hr 03/24/24 03/24/24 09:50 11:01 WBC 6.2 RBC 4.58 Hgb 13.9 Hct 42.0 MCV 91.7 MCH 30.3 MCHC 33.1 RDW Std Deviation 43.1 RDW Coeff of Bibi 12.9 Plt Count 322 MPV 9.0 Immature Gran % (Auto) 0.200 Neut % (Auto) 49.3 Lymph % (Auto) 41.3 H [place] % (Auto) 6.9 Eos % (Auto) 1.8 Baso % (Auto) 0.5 Absolute Neuts (auto) 3.1 Absolute Lymphs (auto) 2.58 Nucleated RBC % 0 Sodium 140 Potassium 3.7 Chloride 107 Carbon Dioxide 25.0 Anion Gap 8 BUN 17 Creatinine 0.83 Estim Creat Clear Calc 89.21 Est GFR (MDRD) Af Amer 95 Est GFR (MDRD) Non-Af 78 BUN/Creatinine Ratio 20.5 H Glucose 99 Calcium 9.3 Total Bilirubin 0.40 Direct Bilirubin 0.13 AST 25 ALT 32 Alkaline Phosphatase 81 Total Protein 7.9 Albumin 3.7 Globulin 4.2 Lipase 36 Urine Color Yellow Urine Clarity Sl. Cloudy Urine pH 6.0 Ur Specific [place] 1.020 Urine Protein 15 H Urine Glucose (UA) Normal Urine Ketones Negative Urine Occult Blood Negative Urine Nitrite Negative Urine Bilirubin Negative Urine Urobilinogen Normal Ur Leukocyte Esterase 25 H Urine RBC 0 SEEN Urine WBC 0-5 SEEN Ur Squamous Epith Cells 5-10 SEEN Urine Bacteria 1+ Urine Mucus 0 SEEN Radiography Diagnostic Testing: Clinical Impression(s) from Imaging Studies Abdomen/Pelvis CT 03/24/24 10:20 IMPRESSION: 1. Stable nonobstructing right kidney stones 2. Prior supracervical hysterectomy. No interval change in small simple cyst of the left ovary measuring 3.84 cm in diameter that does not require any additional imaging. Small parenchymal calcification of the left ovary unchanged. Electronically Signed: Moses Hernandez MD at 12:03 EDT Reading Location ID and State: [facility] / [place] , Service support , Discharge Plan Triage Chief Complaint: Abd Pain ED Provider: Zen Davis Dx/Rx/DC Orders Clinical Impression: Abdominal pain, Diarrhea Instructions: Abdominal Pain, ED Irritable Bowel Syndrome Prescriptions: New dicyclomine 20 mg tablet 20 mg PO TID Qty: 30 0RF No Action potassium chloride 10 mEq capsule, extended release 10 meq PO QDAY albuterol sulfate [ProAir HFA] 1 PUFF inhaler 1 - 2 puff inhalation Q4H PRN PRN (Reason: Asthma) Patient Comments: shortness of breath fluticasone propionate [Flovent Diskus] 1 PUFF inhaler 1 puff inhalation BID Patient Comments: breathing famotidine 40 mg tablet 40 mg PO QHS pantoprazole 40 mg tablet,delayed release (DR/EC) 40 mg PO DAILY fluticasone propionate 50 mcg/actuation spray,suspension 2 spray INTRANASAL DAILY carvedilol 6.25 mg tablet 6.25 mg PO BID amlodipine 5 mg tablet 5 mg PO DAILY ropinirole 0.25 mg tablet 0.25 mg PO QHS PRN PRN (Reason: restless legs) Eliquis 5 mg tablet 5 mg PO BID ondansetron 4 mg tablet,disintegrating 4 mg PO Q8H PRN PRN (Reason: Nausea) Qty: 14 0RF Primary Care Provider: Dwayne Dorado Referrals: Dwayne Dorado MD [Primary Care Provider] - As soon as possible Print Language: Yoruba Disposition Disposition: Home, Self Care
[2024-03-24 10:46] LABS: Absolute Lymphocyte Count 2.58 X10^3/uL (0.83-4.51); Absolute Neutrophil Count 3.1 X10^3/uL (2.0-7.7); Basophil# 0.03 X10^3/uL; Basophil% 0.5 % (0-1); Eosinophil# 0.11 X10^3/uL; Eosinophils% 1.8 % (0-5); Hemoglobin 13.9 g/dL (12.0-15.0); Lymphocyte # 2.58 X10^3/ul (0.83-4.51); Lymphocyte % 41.3 % (19-41); Mean Corp Hgb Conc 33.1 g/dL (32-36); Mean Corpuscular Hgb 30.3 pg (27.0-32.0); Mean Corpuscular Volume 91.7 fL (81-99); Monocyte# 0.43 X10^3/uL; Monocyte% 6.9 % (0-10); NRBC Flagged by Analyzer 0 % (0-5); Neutrophil # 3.08 X10^3/uL (2.7-7.7); Neutrophil % 49.3 % (47-70); Platelet Count 322 K/mm3 (150-450); RBC Distribution Width CV 12.9 % (11.6-14.6); RBC Distribution Width SD 43.1 fl (35.1-43.9); Red Blood Count 4.58 M/mm3 (4.2-5.4); White Blood Count 6.2 K/mm3 (4.4-11.0)
[2024-03-24] MEDS: 0.9% Normal Saline (1000mL) 1,000 ML 999 ML IV (10:49)
[2024-03-24 10:59] LABS: AST(SGOT) 25 U/L (15-37); Alanine Aminotransfer ALT/SGPT 32 U/L (13-56); Albumin, Serum 3.7 g/dL (3.2-5.0); Alkaline Phosphatase 81 U/L (45-117); Anion Gap 8 (5-15); BUN 17 mg/dL (7-18); BUN/Creat Ratio 20.5 RATIO (10-20); Bilirubin, Direct 0.13 mg/dL (0.00-0.30); Calcium,Total 9.3 mg/dL (8.5-10.1); Chloride 107 mmol/L (98-107); Creatinine, Serum 0.83 mg/dL (0.55-1.02); EST Glomerular Filtration Rate 78 mL/min (>60); Est Glom Filt Rate - Afr Amer 95 mL/min (>60); Estimated Creatinine Clearance 89.21 ml/min; Globulin 4.2 g/dL (2.2-4.2); Glucose 99 mg/dL (74-106); Lipase 36 U/L (13-75); Potassium 3.7 mmol/L (3.5-5.1); Protein, Total 7.9 g/dL (6.4-8.2); Sodium Level 140 mmol/L (136-145)
[2024-03-24 11:07] LABS: Mucous, Urine 0 SEEN /hpf (<or=2+); Red Blood Cells-Urine 0 SEEN /hpf (0-5)
[2024-03-24] MEDS: Ketorolac 30 MG/ML Syringe IV (11:07)
[2024-03-24] MEDS: Ondansetron 4 MG/2 ML Vial IV (11:07)
[2024-03-24 11:10] VITALS: BP 139/93; PULSE 75; RESP 16; O2SAT 97
[2024-03-24 11:29] LABS: Color, Urine Yellow (Yellow); Glucose, Dipstick Normal (Normal); Ketone-Dipstick Negative (Negative); Leukocyte Esterase-Dipstick 25 /ul (Negative); Nitrite-Dipstick Negative (Negative); Occult Blood-Urine Negative /ul (Negative); Protein-Dipstick 15 mg/dl (Negative); Urine Bilirubin Dipstick Negative (Negative); Urine Clarity Sl. Cloudy (Clear); Urine Urobilinogen Normal (Normal)
[2024-03-24 12:20] LABS: Bacteria 1+ /hpf (None Seen); White Blood Cells 0-5 SEEN /hpf (0-5)
[2024-03-24 12:21] LABS: Squamous Epithelial Cells - UA 5-10 SEEN /hpf (5-10)
== END 2024-03-24 12:39 | disposition home or self-care (01) ==
PROVIDERS: Emergency Provider Emergency Medicine; PCP Family Medicine; Visit Provider Emergency Medicine
DX: R10.30 Lower abdominal pain, unspecified (principal); R19.7 Diarrhea, unspecified; I10 Essential (primary) hypertension; Z79.01 Long term (current) use of anticoagulants; Z79.899 Other long term (current) drug therapy; Z90.710 Acquired absence of both cervix and uterus; Z90.49 Acquired absence of other specified parts of digestive tract
CPT/HCPCS: 74177; 80048; 80076; 81001; 83690; 85025; 96361; 96374; 96375; 99282; J7030; Q9967; A4216; J2405

== ENCOUNTER → 2024-04-17 | Outpatient (CLI) | payer MEDICAID, SELFPAY ==
--- NOTE | 2024-04-17 12:58 | NM_ITS ---
CLINICAL: 48-year-old female with history of chronic nausea. SEMI-SOLID PHASE 99m Tc SULFUR COLLOID GASTRIC EMPTYING STUDY COMPARISON: CT of the abdomen-pelvis report 03/24/2024 FINDINGS: The patient was administered 1.0 mCi of 99m Tc sulfur colloid mixed with oatmeal and consumed per os. Image acquisitions in the anterior-posterior projections were obtained for 60 minutes. There is prompt visualization of the stomach. There is no gastroesophageal reflux identified. The T ? raw data emptying was calculated to be 49.38 minutes, (Normal: 12-56 minutes). NM/Gastric Emptying Study IMPRESSION: 1. NORMAL 99m Tc sulfur colloid semi-solid phase (oatmeal) gastric emptying imaging examination. A. There is normal and preserved semi-solid phase gastric emptying compared to normal controls. (Nicky et al, J Nucl Med Tech 38: 186, 2010). Electronically Signed: Gus Farias DO at 9:35 EDT ,
== END | disposition home or self-care (01) ==
LOC: NM 12:58
PROVIDERS: PCP Family Medicine; Referring Provider Student in an Organized Health Care Education/Training Program; Visit Provider Student in an Organized Health Care Education/Training Program
DX: R11.0 Nausea (principal)
CPT/HCPCS: 78264; A9541

== ENCOUNTER → 2024-04-23 | Outpatient (CLI) | payer MEDICAID, SELFPAY ==
--- OUTSIDE RECORDS SUMMARY | 2024-04-23 09:27 | XMS RPT_ITS | CCD ---
Author Organization [facility] Care Team Providers Care User Experience Researcher Name Role Phone Francisco Murguia Unavailable Unavailable Unavailable Kimberly Murguia MD Primary Care Provider iKmberly Murguia MD Primary Care Provider ELIZABETH LOWE Unavailable Yoav HSIEH MD [facility] Primary Care Physician [phone] Yemi Toribio Attending Unavail able KIMBERLY MURGUIA Primary Care UnavailKIMBERLY Hardin Attending Unavailabl e KIMBERLY MURGUIA Primary Care Unavailabl KIMBERLY Rodriguez Primary Care Unavailrose e ELIZABETH LOWE Attending Unavailable AIDAN SHAH Unavailable AIDAN LEMONS Unavailable ROSE JEAN Unavailable Kimberly Murguia Unavailable Main Reed Unavailable Konrad Delgado Unavailable Unavailable Francisco Murguia MD Primary Care Provider Francisco Murguia MD Unavailable Roxana Price Unavailable Unavailable Deejay Cain Referring Unavailable Deejay Cain Attending Unavailable Dr. Francisco Murguia Primary Care Unavailable Dr. Konrad Delgado Attending Unatn Dr. Farnaz Pena Referring Unavailab valentina Murguia, Dr. Francisco Woodall Primary Care Unavailable Emre, Dr. Demarco Ruby Admitting Unavailable Unavailable Unavailable Francisco Murguia MD Unavailable Roxana Price Unavailable Unavailable Blayne Peguero MD Primary Care Provider Francisco MURGUIA Primary Care Unavailable JANNY BAI Attending Unavailable JANNY BAI Referring Unavailable BLAYNE PEGUERO Primary Care Unavailable Kimberly Murguia MD Primary Care Provider Sonja, Dr. Marinelli Attending Unavailable Sonja, Dr. Marinelli Referring Unavailable Yoav, Dr. Francisco Woodall Primary Care Unavailable Galilea, Dr. German Rhodes Attending Unava ilable Yoav, Dr. Francisco Woodall Primary Care Unavailable MAIN REED Admitting Unavailable MAIN REED Attending Unavailable BLAYNE PEGUERO Primary Care Unavailable BLAYNE PEGUERO Attending Unavailable Francisco MURGUIA Primary Care Unavailable BLAYNE PEGUERO Referring Unavailable JANNY BAI Attending Unavailable Francisco MURGUIA Primary Care Unavailable BLAYNE PEGUERO Primary Care Unavailable MAIN REED Attending Unavailable BLAYNE PEGUERO Primary Care Unavailable BLAYNE PEGUERO Attending Unavailable BLAYNE PEGUERO Primary Care Unavailable MAIN REED Attending Unavailable BLAYNE PEGUERO Primary Care Unavailable Unavailable Primary Care Provider UnavailAidan Smith DO Unavailable KIMBERLY MURGUIA Primary Care Unavailable MODE MELINDA Referring Unavailable ZAINAB CROFT Attending Unavailable ZAINAB CROFT Admitting Unavailable Marylin AREVALO Consulting Unavailable KIMBERLY MURGUIA Primary Care Unavailable Unavailable Primary Care Provider UnavailMYNOR Mullins Attending Unavailable MYNOR LYNN Admitting Unavailable JUSTYN MALDONADO Referring Unavailable LUL CHIN Attending Unavailable BLAYNE PEGUERO Primary Care Unavailable LUL CHIN Referring Unavailable BLAYNE PEGUERO Primary Care Unavailable BLAYNE PEGUERO Primary Care Unavailable VERONA COOK Attending Unavailable Allergies Allergy Classification Reported Allergen(s) Allergy Type Date of Onset Reaction(s) Facility Penicillins (antibiotic) (6 sources) Penicillins; Translations: [Penicillins] Drug Allergy [facility] Work Phone: (20 sources) Codeine; Translations: [CODEINE] Drug Allergy 03-13-20 05 Rash [facility] (14 sources) Penicillins; Translations: [PENICILLINS] Drug Allergy 03-13-20 05 Anaphylaxis [facility] (20 sources) Sulfamethoxazole / Trimethoprim; Translations: [SULFAMETHOXAZOLE-T RIMETHOPRIM] Drug Allergy 03-13-20 05 Other [facility] Work Phone: (20 sources) traMADol; Translations: [TRAMADOL HCL] Drug Allergy 03-13-20 05 Intolerance, Unknown [facility] (17 sources) Naproxen; Translations: [Naproxen TABS] Drug Allergy 03-20-20 23 Other [facility] Work Phone: (6 sources) Penicillins; Translations: [Penicillins] Allergy to drug (finding) Anaphylaxis [facility] Work Phone: (20 sources) Penicillins; Translations: [Penicillins] Drug Allergy 03-13-20 05 Anaphylaxis, Hives [facility] (6 sources) Penicillin Drug Allergy ANAPHYLAXIS [facility]. Other (4 sources) Naproxen; Translations: [NAPROXEN] Drug Allergy 03-20-20 23 [facility] (4 sources) Bee Venom Protein (Honey Bee); Translations: [BEE VENOM PROTEIN (HONEY BEE)] Propensity to adverse reactions 08-06-19 24 Anaphylaxis [facility] NEGATED: Highlighted row has been ruled out! (1 source) natural latex rubber; Translations: [LATEX, NATURAL RUBBER] Drug allergy (disorder) [facility] [place] NEGATED: Highlighted row has been ruled out! (1 source) No IV Contrast Allergy.; Translations: [IV Dye, Iodine Containing] Drug allergy (disorder) [facility] [place] Medications Current Medications Medication Drug Class(es) Dates Sig (Normalized) Sig (Original) acetaminophen 500 mg oral tablet (20 sources) Start: 05-28-2023 take 2 tablets by mouth every six hours for pain acetaminophen (Tylenol) 500 mg tablet Indications: Adnexal mass Take 2 tablets (1,000 mg) by mouth every 6 hours if needed for mild pain (1 - 3). 30 tablet 0 05/28/2023 Active Start: 05-14-2023 End: 05-29-2023 take 2 tablets by mouth twice daily acetaminophen (Tylenol) 500 mg tablet Indications: Kidney stone , Abdominal pain, unspecified abdominal location Take 2 tablets (1,000 mg) by mouth 2 times a day for 15 days. 90 tablet 0 05/14/2023 05/29/2023 End: 05-28-2023 take 2 capsules by mouth every six hours as needed acetaminophen (TylenoL) 325 mg capsule Take 2 capsules (650 mg) by mouth every 6 hours if needed. 0 05/28/2023 Discontinued (Med List Cleanup) [id number] 200 actuat albuterol 0.09 mg/actuat metered dose inhaler (20 sources) beta2-Adrenergic Agonist Start: 03-20-2023 End: 03-19-2024 take 2 puff(s) by inhalation every four hours for wheezing albuterol (Ventolin HFA) 90 mcg/actuation inhaler Indications: Moderate asthma without complication, unspecified whether persistent Inhale 2 puffs every 4 hours if needed for wheezing or shortness of breath. 8 g 5 03/20/2023 03/19/2024 Active Start: 02-28-2022 Albuterol Sulf ate (2.5 MG/3ML) 0.083% 3 ml Inhalation Three times a day for 10 day(s) Jan, Active Start: 02-09-2020 End: 05-28-2023 take 1-2 puff(s) by mouth every four to six hours as needed Albuterol Sulfate HFA 108 (90 Base) MCG/ACT Inhalation Aerosol Solution INHALE 1 TO 2 PUFFS BY MOUTH EVERY 4 TO 6 HOURS NEEDED Quantity: 72 Refills: 0 Ordered: 19-Mar-2020 DO Start : 09-Feb-2020 Active Start: 02-09-2020 take 1-2 puff(s) by mouth every four to six hours as needed Albuterol Sulfate HFA 108 (90 Base) MCG/ACT Inhalation Aerosol Solution INHALE 1 TO 2 PUFFS BY MOUTH EVERY 4 TO 6 HOURS NEEDED Quantity: 72 Refills: 0 Ordered: 19-Mar-2020 DO Start : 09-Feb-2020 Active Start: 06-19-2019 take 2.5 mg by inhal ation every six hours as needed albuterol (PROVENTIL) 2.5 mg /3 mL (0.083 %) nebulizer solution Use 3 mL via nebulizer every 6 hours as needed for Wheezing/Shortness of Breath. Inhale over 5-15 minutes 100 Vial 5 06/19/2019 Active Start: 04-14-2016 take 2 puff(s) by in halation every six hours as needed for wheezing albuterol HFA (PROAIR HFA) 90 mcg/actuation inhaler 2 Puffs every 6 hours as needed for Wheezing/Shortness of Breath. Take as directed 3 Inhaler 0 04/14/2016 Active take 2 puff(s) by in halation every six hours as needed albuterol 90 mcg/inh inhalation powder ; 2 puff(s) inhaled every 6 hours, As Needed Quantity: 0 Refills: 0 Ordered: 08-Mar-2023 Judy Mariscal Generic Substitution Allowed take 2 puff(s) by in halation every four hours as needed Ventolin HFA 108 (90 Base) MCG/ACT 2 puffs as needed Inhalation every 4 hrs for 30 days Active Comment on above: 2 Puffs every 6 hour s as needed for Wheezing/Shortness of Breath. Take as directed Use 3 mL via nebuliz er every 6 hours as needed for Wheezing/Shortness of Breath. Inhale over 5-15 minutes amLODIPine 5 mg oral tablet (5 sources) Dihydropyridine Calcium Channel Robby Start: End: take 1 tablet by mouth once amLODIPine (NORVASC) 5 mg tablet Take 1 tablet by mouth every afternoon. 0 09/20/2023 Active Comment on above: Take 1 tablet by arnol th every afternoon. azithromycin 500 mg oral tablet (2 sources) Macrolide Antimicrobial Start: Azithromycin 500 MG as directed Orally Once a day for 5 day(s) Jan, Active benzonatate 100 mg oral capsule (1 source) Non-narcotic Antitussive Start: End: take 2 capsules by mouth three times daily as needed benzonatate (TESSALON PERLE) 100 mg capsule Indications: URI, acute Take 2 capsules by mouth three times a day as needed for up to 10 days. 60 capsule 0 10/09/2023 10/19/2023 Active Comment on above: Take 2 capsules by m outh three times a day as needed for up to 10 days. Blood Pressure Monitor/Arm - (3 sources) Start: Blood Pressure Monitor/Arm - as directed Apr, Active calcium chloride 0.0014 meq/ml / potassium chloride 0.004 meq/ml / sodium chloride 0.103 meq/ml / sodium lactate 0.028 meq/ml injectable solution (1 source) Start: lactated Ringer's infusion carvedilol 3.125 mg oral tablet (19 sources) alpha-Adrenergic Robby, beta-Adrenergic Robby Start: take 1 tablet by mouth twice daily at mealtime carvedilol (COREG) 3.125 mg tablet Take 1 tablet by mouth two times a day with meals. 06/11/2023 Active Start: 03-14-2023 End: 04-19-2023 take 1 tablet by mouth twice daily carvedilol (Coreg) 6.25 mg tablet Indications: Heart failure, unspecified HF chronicity, unspecified heart failure type (CMS/HCC) , Dysphagia, unspecified type Take 1 tablet (6.25 mg) by mouth 2 times a day. 90 tablet 2 04/19/2023 Active Comment on above: Take 6.25 mg by mout h two times a day with meals. Take 1 tablet by arnol th two times a day with meals. ciprofloxacin 500 mg oral tablet (1 source) Quinolone Antimicrobial Start: take 1 tablet by mouth twice daily ciprofloxacin 500 mg oral tablet ; 1 tab(s) orally 2 times a day Quantity: 10 Refills: 0 Ordered: 14-Mar-2023 Konrad Delgado Start: 14-Mar-2023 Generic Substitution Allowed Comments: Avoid prolonged or excessive exposure to direct and/or artificial sunlight while taking this medication.Check with your doctor before becoming .Do not take dairy products, antacids, or iron preparations within one hour of this medication.Finish all this medication unless otherwise directed by prescriber.Medicati on should be taken with plenty of water. Comment on above: Avoid prolonged or e xcessive exposure to direct and/or artificial sunlight while taking this medication.Check with your doctor before becoming .Do not take dairy products, antacids, or iron preparations within one hour of this medication.Finish all this medication unless otherwise directed by prescriber.Medication should be taken with plenty of water. dicyclomine hydrochloride 20 mg oral tablet (8 sources) Anticholinergic Start: 023 take 1 tablet by mouth four times daily before mealtime dicyclomine (Bentyl) 20 mg tablet Indications: Kidney stone , Abdominal pain, unspecified abdominal location Take 1 tablet (20 mg) by mouth 4 times a day before meals. 30 tablet 0 05/14/2023 Active docusate sodium 100 mg oral capsule (5 sources) Start: 017 take 1 capsule by mouth once daily as needed Colace 100 MG 1 capsule as needed Orally Daily prn for 30 day(s) Mar, Active [id number] 0.3 ml EPINEPHrine 1 mg/ml auto-injector (20 sources) alpha-Adrenergic Agonist, beta-Adrenergic Agonist, Catecholamine Start: 020 EPINEPHrine 0.3 mg/0.3 mL injection syringe Use as directed for bee sting 0 08/08/2019 Active Comment on above: Use as directed for bee sting Flovent Diskus 50 MCG/BLIST (1 source) take 1 puff(s) by inhalation twice daily Flovent Diskus 50 MCG/BLIST 1 puff Inhalation Twice a day Active fluticasone propionate 0.05 mg/actuat metered dose nasal spray (20 sources) Corticosteroid Start: 024 take 2 spray(s) by mouth once daily fluticasone (FLONASE) 50 mcg/actuation nasal spray Indications: URI, acute Use 2 Sprays in each nostril once daily. Rinse mouth after use. 1 Each 0 10/09/2023 Active Start: 11-03-2020 End: 08-06-2023 take 1 spray(s) nasal route twice daily fluticasone (Flonase) 50 mcg/actuation nasal spray Administer 1 spray into each nostril 2 times a day. 0 11/03/2020 08/06/2023 Discontinued (Med List Cleanup) Start: 11-03-2020 take 1 spray(s) nasa l route twice daily Fluticasone Propionate 50 MCG/ACT Nasal Suspension APPLY ONE SPRAY INTO EACH NOSTRIL TWICE DAILY Quantity: 16 Refills: 0 Ordered: 03-Nov-2020 DO Start : 03-Nov-2020 Active take 1 puff(s) by in halation twice daily Flovent Diskus 50 MCG/BLIST 1 puff Inhalation Twice a day Active take 1 spray(s) nasa l route once daily Fluticasone Propionate 50 MCG/ACT 1 spray in each nostril Nasally Once a day Active Comment on above: Use 2 Sprays in each nostril once daily. Rinse mouth after use. 60 actuat formoterol fumarate 0.005 mg/actuat / mometasone furoate 0.2 mg/actuat metered dose inhaler (20 sources) Corticosteroid, beta2-Adrenergic Agonist Start: 06-11-2023 take 2 puff(s) by inhalation twice daily mometasone-formoter ol (DULERA) 200-5 mcg/actuation inhaler Inhale 2 Puffs as instructed two times a day. 06/11/2023 Active Start: 06-19-2019 take 2 puff(s) by in halation twice daily mometasone-formoterol (DULERA) 200-5 mcg/actuation inhaler Inhale 2 Puffs as instructed twice daily. 1 Inhaler 5 06/19/2019 Active Comment on above: Inhale 2 Puffs as in structed twice daily. Inhale 2 Puffs as in structed two times a day. furosemide 20 mg oral tablet (1 source) Loop Diuretic take 1 tablet by mouth four times weekly furosemide 20 mg oral tablet ; 1 tab(s) orally 4 times a week Quantity: 0 Refills: 0 Ordered: 08-Mar-2023 Joseline Uriostegui Generic Substitution Allowed homatropine methylbromide 0.3 mg/ml / HYDROcodone bitartrate 1 mg/ml oral solution (6 sources) Opioid Agonist, Cholinergic Muscarinic Agonist Start: 02-29-20 22 0.5 ml HYDROmorphone hydrochloride 1 mg/ml prefilled syringe (3 sources) Opioid Agonist Start: 05-28-20 23 HYDROmorphone (Dilaudid) injection 0.5 mg Start: 05-28-2023 HYDROmorphone PF (Dilaudid) injection 0.2 mg Start: 05-14-2023 End: 05-14-2023 HYDROmorphone (Dilaudid) inj ection 1 mg ibuprofen 800 mg oral tablet (16 sources) Nonsteroidal Anti-inflammatory Drug Start: 03-21-2022 End: 05-19-2023 take 1 tablet by mouth every eight hours as needed for arthritis and arthritis IBU 800 mg tablet Indications: Arthritis Take 1 tablet (800 mg) by mouth every 8 hours if needed for moderate pain (4 - 6). 90 tablet 1 03/20/2023 05/19/2023 Active take 1 tablet by arnol th every six hours at mealtime as needed Ibuprofen 600 MG 1 tablet with food or milk Orally every 6 hours prn Active ketorolac tromethamine 10 mg oral tablet (7 sources) Nonsteroidal Anti-inflammatory Drug, Cyclooxygenase Inhibitor Start: 05-28-2023 take 1 tablet by mouth every six hours for pain ketorolac (Toradol) 10 mg tablet Indications: Adnexal mass Take 1 tablet (10 mg) by mouth every 6 hours if needed for moderate pain (4 - 6). 20 tablet 0 05/28/2023 Active Start: 05-14-2023 End: 05-14-2023 ketorolac (Toradol) injectio n 15 mg Metoprolol (1 source) beta-Adrenergic Robby take 1 tablet by mouth once daily metoprolol tartrate 10 mg/mL oral solution ; 1 tab(s) orally once a day Quantity: 0 Refills: 0 Ordered: 08-Mar-2023 Joseline Uriostegui Generic Substitution Allowed ondansetron 4 mg oral tablet (20 sources) Serotonin-3 Receptor Antagonist Start: 05-28-20 End: 05-28-20 ondansetron (Zofran) injection 4 mg Start: 09-19-2019 take 1 tablet by arnol th every eight hours for nausea ondansetron (Zofran) 4 mg tablet Indications: Adnexal mass Take 1 tablet (4 mg) by mouth every 8 hours if needed for nausea or vomiting. 10 tablet 0 05/28/2023 Active Comment on above: Take 1 tablet by aronl th every 8 hours as needed. pantoprazole 40 mg injection (20 sources) Proton Pump Inhibitor Start: 05-14-2023 pantoprazole (ProtoNix) injection 40 mg Start: 03-14-2023 End: 04-17-2023 take 1 tablet by mouth once daily in the morning pantoprazole (ProtoNix) 40 mg EC tablet Indications: Gastroesophageal reflux disease, unspecified whether esophagitis present TAKE ONE TABLET BY MOUTH ONCE DAILY IN THE MORNING 90 tablet 1 04/17/2023 Active Comment on above: It is very important that you take or use this exactly as directed. Do not skip doses or discontinue unless directed by your doctor.Obtain medical advice before taking any non-prescription drugs as some may affect the action of this medication.Swallow whole. Do not crush. Take 40 mg by mouth once daily. polyethylene glycol 3350 69254 mg powder for oral solution (2 sources) Osmotic Laxative Start: 05-28-2023 End: 06-27-2023 polyethylene glycol (Glycolax, Miralax) 17 gram/dose powder Indications: Adnexal mass Take 17 g by mouth once daily. 510 g 0 05/28/2023 06/27/2023 Active polyethylene glycol 3350 [id number] mg / potassium chloride 1480 mg / sodium bicarbonate 5720 mg / sodium chloride 23528 mg powder for oral solution (16 sources) Osmotic Laxative Start: 04-05-2023 polyethylene glycol-electrolytes (Nulytely) solution 4,000 mL predniSONE 10 mg oral tablet (19 sources) Start: 10-22-2023 End: 10-28-2023 predniSONE (DELTASONE) 10 mg tablet Indications: Acute bilateral low back pain with right-sided sciatica Take by mouth 6 pills on day 1, 5 pills on day 2, 4 pills on day 3, 3 pills on day 4, 2 pills on day 5, 1 pill on day 6 21 tablet 0 10/22/2023 10/28/2023 Active Start: 02-28-2022 predniSONE 10 MG as directed Orally 3 tab for 3 days, then 2 tab for 3 days, then 1 tab for 3 days for 9 days Jan, Active Start: 10-07-2020 predniSONE (DE LTASONE) 10 mg tablet 4 tabs for 4 days, 3 tabs for 3 days, 2 tabs for 2 days, 1 tab for 2 days 31 tablet 0 10/07/2020 Suspended Comment on above: 4 tabs for 4 days, 3 tabs for 3 days, 2 tabs for 2 days, 1 tab for 2 days sertraline 50 mg oral tablet (6 sources) Serotonin Reuptake Inhibitor take 1 tablet by mouth every twenty-four hours Zoloft 50 mg 1 tablet Orally Once a day for 30 day(s) Active sucralfate 100 mg/ml oral suspension (9 sources) Aluminum Complex Start: 05-14-2023 sucralfate (Carafate) suspension 1 g Start: 05-14-2023 End: 05-13-2024 take 1 tablet by mouth four times daily before mealtime sucralfate (Carafate) 1 gram tablet Indications: Kidney stone , Abdominal pain, unspecified abdominal location Take 1 tablet (1 g) by mouth 4 times a day before meals. 120 tablet 0 05/14/2023 05/13/2024 Active Work note (1 source) Start: 03-14-2023 Work note ; Me elliott was admitted to the hospital on 03/08/23 and discharged on 03/14/23.She may return to work with no restrictions on or after 03/19/23 Quantity: 1 Refills: 0 Ordered: 14-Mar-2023 Konrad Delgado Start: 14-Mar-2023 Generic Substitution Allowed Completed/Discontinued Medications Medication Drug Class(es) Dates Sig (Normalized) Sig (Original) acetaminophen 325 mg / oxyCODONE hydrochloride 5 mg oral tablet (8 sources) Opioid Agonist Start: 04-06-2020 take 1 tablet by mouth every six hours as needed for pain oxyCODONE-Acetami nophen 5-325 MG Oral Tablet TAKE ONE TABLET BY MOUTH EVERY 6 HOURS NEEDED FOR PAIN Quantity: 120 Refills: 0 Ordered: 09-Apr-2020 DO Start : 06-Apr-2020 Active aluminum hydroxide 40 mg/ml / magnesium hydroxide 40 mg/ml / simethicone 4 mg/ml oral suspension (1 source) Start: 05-28-2023 End: 05-28-2023 alum-mag hydroxide-simeth (Mylanta) 200-200-20 mg/5 mL oral suspension 30 mL Start: 05-28-2023 End: 05-28-2023 alum-mag hydroxide-simeth (M ylanta) 200-200-20 mg/5 mL oral suspension 30 mL amLODIPine 5 mg / benazepril hydrochloride 10 mg oral capsule (12 sources) Dihydropyridine Calcium Channel Robby, Angiotensin Converting Enzyme Inhibitor Start: 04-05-2022 End: 08-06-2023 take 1 capsule by mouth once daily LotreL 5-10 mg capsule Take 1 capsule by mouth once daily. for 90 day(s) 0 04/05/2022 08/06/2023 Discontinued (Med List Cleanup) apixaban 5 mg oral tablet (12 sources) Factor Xa Inhibitor Start: 06-11-2023 End: 10-01-2023 take 1 tablet by mouth twice daily apixaban (ELIQUIS) 5 mg tab(s) Take 5 mg by mouth two times a day. 06/11/2023 10/01/2023 Comment on above: Take 5 mg by mouth t wo times a day. 24 hr dilTIAZem hydrochloride 180 mg extended release oral capsule (8 sources) Calcium Channel Robby Start: 12-09-2020 take 1 capsule by mouth once daily dilTIAZem HCl ER 180 MG Oral Capsule Extended Release 24 Hour TAKE 1 CAPSULE ONCE DAILY. Quantity: 90 Refills: 3 Ordered: 09-Dec-2020 Catracho Gomez MD Start : 09-Dec-2020 Active Start: 11-25-2020 take 1 tablet by arnol th once daily dilTIAZem HCl ER Coated Beads 180 MG Oral Tablet Extended Release 24 Hour TAKE 1 TABLET DAILY DIRECTED. Quantity: 90 Refills: 3 Ordered: 25-Nov-2020 Catracho Gomez MD Start : 25-Nov-2020 Active 2 ml famotidine 10 mg/ml injection (20 sources) Histamine-2 Receptor Antagonist Start: 05-28-2023 End: 05-28-2023 famotidine PF (Pepcid) injection 20 mg Start: 03-14-2023 End: 04-19-2023 take 1 tablet by mouth once daily at bedtime famotidine (Pepcid) 40 mg tablet Indications: Heart failure, unspecified HF chronicity, unspecified heart failure type (CMS/HCC) , Dysphagia, unspecified type Take 1 tablet (40 mg) by mouth once daily at bedtime. 90 tablet 2 04/19/2023 Active Comment on above: It is very important that you take or use this exactly as directed. Do not skip doses or discontinue unless directed by your doctor.Obtain medical advice before taking any non-prescription drugs as some may affect the action of this medication. Take 40 mg by mouth daily at bedtime. gabapentin 300 mg oral capsule (14 sources) Anti-epileptic Agent Start: 10-18-19 End: 08-06-19 take 300-600 mg by mouth at bedtime Gabapentin 300 MG Oral Capsule 300 to 600 mg at bedtime Quantity: 60 Refills: 5 Ordered: 17-Oct-2021 Joshua Frazier MD Start : 17-Oct-2021 Active gentamicin (Garamycin) 270 mg in dextrose 5 % in water (D5W) 100 mL IV (1 source) Start: 05-28-20 End: 05-28-20 gentamicin (Garamycin) 270 mg in dextrose 5 % in water (D5W) 100 mL IV 1 ml hydrALAZINE hydrochloride 20 mg/ml injection (2 sources) Arteriolar Vasodilator Start: 05-28-20 End: 05-28-20 hydrALAZINE (Apresoline) injection 2.6 mg Start: 05-28-2023 End: 05-28-2023 hydrALAZINE (Apresoline) inj ection 2.6 mg hydrOXYzine hydrochloride 25 mg oral tablet (10 sources) Antihistamine Start: 08-23-2022 End: 08-06-2023 hydrOXYzine HCL (Atarax) 25 mg tablet Take 1 tablet (25 mg) by mouth as needed at bedtime. for 90 day(s) 0 08/23/2022 08/06/2023 Discontinued (Med List Cleanup) lisinopril 20 mg oral tablet (13 sources) Angiotensin Converting Enzyme Inhibitor End: 08-06-2023 take 1 tablet by mouth once daily lisinopril 20 mg tablet Take 1 tablet (20 mg) by mouth once daily. 0 08/06/2023 Discontinued (Med List Cleanup) Lisinopril 20 MG Oral Tablet Quantity: 0 Refills: 0 Ordered: 28-Oct-2021 DO Active loratadine 10 mg oral tablet (16 sources) Start: 04-14-2016 take 1 tablet by mouth once daily loratadine (CLARITIN) 10 mg tablet Take 1 tablet by mouth once daily. 30 tablet 5 04/14/2016 Suspended Comment on above: Take 1 tablet by arnol th once daily. LORazepam 1 mg oral tablet (16 sources) Benzodiazepine End: 08-06-2023 take 1 tablet by mouth every twenty-four hours LORazepam (Ativan) 1 mg tablet Take 1 tablet (1 mg) by mouth once every 24 hours. 0 08/06/2023 Discontinued (Med List Cleanup) take 1 tablet by arnol th every twenty-four hours Ativan 1 MG 1 tablet as needed Orally once a day for 30 days Active losartan potassium 50 mg oral tablet (8 sources) Angiotensin 2 Receptor Robby Start: 11-03-2020 take 1 tablet by mouth once daily Losartan Potassium 50 MG Oral Tablet TAKE ONE TABLET BY MOUTH DAILY Quantity: 90 Refills: 0 Ordered: 03-Nov-2020 DO Start : 03-Nov-2020 Active Nebulizer and Compressor For Neb (18 sources) Start: 02-28-2022 Nebulizer and Compressor For Neb Indications: Mild intermittent asthma, unspecified whether complicated Dispense one nebulizer with lifetime supplies 1 Each 0 02/28/2022 Suspended Start: 02-28-2022 Nebulizer and Compressor For Neb Indications: Mild intermittent asthma, unspecified whether complicated Dispense one nebulizer with lifetime supplies 1 Each 0 02/28/2022 Active Start: 02-28-2022 End: 02-28-2022 Nebulizer and Compressor For Neb Indications: Mild intermittent asthma, unspecified whether complicated Dispense one nebulizer with lifetime supplies 1 Each 0 02/28/2022 02/28/2022 Discontinued Start: 07-07-2020 End: 02-27-2022 Nebulizer and Compressor For Neb Indications: Mild intermittent asthma, unspecified whether complicated Dispense one nebulizer with lifetime supplies 1 Each 0 07/07/2020 02/27/2022 Discontinued Start: 07-07-2020 Nebulizer and Compressor For Neb Indications: Mild intermittent asthma, unspecified whether complicated Dispense one nebulizer with lifetime supplies 1 Each 0 07/07/2020 Active Comment on above: Dispense one nebuliz er with lifetime supplies Nebulizers (18 sources) Start: 02-28-2022 Nebulizers Indications: Mild intermittent asthma, unspecified whether complicated Lifetime supplies 1 Each 0 02/28/2022 Suspended Start: 02-28-2022 Nebulizers Ind ications: Mild intermittent asthma, unspecified whether complicated Lifetime supplies 1 Each 0 02/28/2022 Active Start: 02-28-2022 End: 02-28-2022 Nebulizers Indications: Mild intermittent asthma, unspecified whether complicated Lifetime supplies 1 Each 0 02/28/2022 02/28/2022 Discontinued Start: 06-19-2019 End: 02-27-2022 Nebulizers Indications: Mild intermittent asthma, unspecified whether complicated Lifetime supplies 1 Each 0 06/19/2019 02/27/2022 Discontinued Start: 06-19-2019 Nebulizers Ind ications: Mild intermittent asthma, unspecified whether complicated Lifetime supplies 1 Each 0 06/19/2019 Active Comment on above: Lifetime supplies oxyCODONE hydrochloride 5 mg oral tablet (11 sources) Opioid Agonist Start: 3 End: take 1 tablet by mouth every six hours for pain oxyCODONE (Roxicodone) 5 mg immediate release tablet Indications: Adnexal mass Take 1 tablet (5 mg) by mouth every 6 hours if needed for severe pain (7 - 10). 15 tablet 0 05/28/2023 05/29/2023 Discontinued (Reorder) Start: 03-14-2023 End: 08-06-2023 take 1 tablet by mouth every eight hours as needed oxyCODONE (Roxicodone) 5 mg immediate release tablet Take 1 tablet (5 mg) by mouth every 8 hours if needed (for pain). 0 03/14/2023 08/06/2023 Discontinued (Med List Cleanup) Start: 03-14-2023 take 1 capsule by [facility] every eight hours oxyCODONE 5 mg oral capsule ; 1 cap orally every 8 hours as needed for painDx:N20.0 Quantity: 15 Refills: 0 Ordered: 14-Mar-2023 Konrad Delgado Start: 14-Mar-2023 Generic Substitution Allowed Comments: Caution [employer] law prohibits the transfer of this drug to any person other than the person for whom it was prescribed.It is very important that you take or use this exactly as directed. Do not skip doses or discontinue unless directed by your doctor.May cause drowsiness or dizziness.This prescription cannot be refilled.Using more of this medication than prescribed may cause serious breathing problems. Comment on above: Caution federal law prohibits the transfer of this drug to any person other than the person for whom it was prescribed.It is very important that you take or use this exactly as directed. Do not skip doses or discontinue unless directed by your doctor.May cause drowsiness or dizziness.This prescription cannot be refilled.Using more of this medication than prescribed may cause serious breathing problems. 1000 ml sodium chloride 9 mg/ml injection (1 source) Start: 05-14-20 End: 11-13-20 23 sodium chloride 0.9 % bolus 1,000 mL tamsulosin hydrochloride 0.4 mg oral capsule (20 sources) alpha-Adrenergic Robby Start: 07-25-19 End: 08-06-19 take 1 capsule by mouth once daily tamsulosin (Flomax) 0.4 mg 24 hr capsule Take 1 capsule (0.4 mg) by mouth once daily. 0 07/25/2019 08/06/2023 Discontinued (Med List Cleanup) Comment on above: Take 1 capsule by [facility] once daily. 30 minutes after the same meal each day. traZODone hydrochloride 50 mg oral tablet (12 sources) Serotonin Reuptake Inhibitor End: 08-06-19 24 traZODone (Desyrel) 50 mg tablet 1 tablet (50 mg). 0 08/06/2023 Discontinued (Med List Cleanup) traZODone HCl - 50 MG Oral Tablet Quantity: 0 Refills: 0 Ordered: 28-Oct-2021 DO Active Problems Active Problems Problem Classification Problem Date Documented Da te Episodic/Chronic Acute bronchitis (1 source) Acute bronchitis; Translations: [Acute Bronchitis] 05-04-2015 Episodic Allergic reactions (1 source) Allergy status to penicillin; Translations: [Allergy status to penicillin] Onset: 03-14-2023 Episodic Anxiety disorders (20 sources) Anxiety; Translations: [Anxiety disorder, unspecified] Onset: 03-27-2006 Resolved: 04-16-2008 02-15-2012 Chronic Asthma (20 sources) Asthma; Translations: [Unspecified asthma, uncomplicated] Onset: 02-15-2012 02-15-2012 Chronic Bacterial infection; unspecified site (1 source) Unspecified Escherichia coli [E. coli] as the cause of diseases classified elsewhere; Translations: [Unsp Escherichia coli as the cause of diseases classd elsr] Onset: 03-14-2023 Episodic Cardiac dysrhythmias (20 sources) Cardiac arrhythmia; Translations: [Cardiac dysrhythmia, unspecified] Onset: 04-02-2023 04-02-2023 Chronic Chronic obstructive pulmonary disease and bronchiectasis (1 source) Chronic obstructive pulmonary disease, unspecified; Translations: [Chronic obstructive pulmonary disease, unspecified] Onset: 03-14-2023 Chronic Chronic obstructive pulmonary disease and bronchiectasis (10 sources) Bronchitis; Translations: [Bronchitis, not specified as acute or chronic] Onset: 02-28-2022 Resolved: 02-28-2022 Episodic Congestive heart failure; nonhypertensive (12 sources) Heart failure; Translations: [Heart Failure] Onset: 04-02-2023 06-20-2015 Chronic Coronary atherosclerosis and other heart disease (12 sources) Acute coronary syndrome; Translations: [Acute Coronary Syndrome] Onset: 04-02-2023 07-04-2015 Chronic Disorders of teeth and jaw (1 source) Toothache; Translations: [Toothache] 12-29-2016 Episodic E Codes: Cut/pierceb (1 source) Contact with other sharp object(s), not elsewhere classified, initial encounter; Translations: [Contact with other sharp object(s), NEC, initial encounter] Onset: 03-15-2022 Episodic E Codes: Place of occurrence (1 source) Other place in unspecified non-institutional (private) residence as the place of occurrence of the external cause; Translations: [Oth place in unsp non-institut (private) residence as place] Onset: 03-15-2022 Episodic E Codes: Unspecified (1 source) Activity, other interior property and clothing maintenance; Translations: [Activity, other interior property and clothing maintenance] Onset: 03-15-2022 Episodic Esophageal disorders (1 source) Gastro-esophageal reflux disease without esophagitis; Translations: [Gastro-esophageal reflux disease without esophagitis] Onset: 03-14-2023 Chronic Essential hypertension (20 sources) Hypertensive disorder; Translations: [Unspecified essential hypertension] Onset: 03-14-2023 Chronic Fluid and electrolyte disorders (1 source) Hypokalemia; Translations: [Hypokalemia] Onset: 03-14-2023 Episodic Gastroduodenal ulcer (except hemorrhage) (1 source) Peptic ulcer, site unspecified, unspecified as acute or chronic, without hemorrhage or perforation; Translations: [Peptic ulc, site unsp, unsp as ac or chr, w/o hemor or perf] Onset: 03-14-2023 Chronic Genitourinary symptoms and ill-defined conditions (3 sources) Urinary incontinence; Translations: [Unspecified urinary incontinence] Onset: 05-22-2023 05-22-2023 Chronic Genitourinary symptoms and ill-defined conditions (1 source) Frequency of micturition; Translations: [Frequency of micturition] Onset: 03-14-2023 Episodic Headache; including migraine (1 source) Headache; Translations: [Headache] 07-27-2015 Episodic Immunizations and screening for infectious disease (5 sources) Encounter for immunization; Translations: [Other specified vaccinations against streptococcus pneumoniae [pneumococcus]] Onset: 03-15-2022 Episodic Joint disorders and dislocations; trauma-related (6 sources) Dislocation of shoulder joint; Translations: [Unspecified dislocation of unspecified shoulder joint, initial encounter] Episodic Menstrual disorders (17 sources) Menometrorrhagia; Translations: [Excessive and frequent menstruation with irregular cycle] Onset: 04-02-2023 04-02-2023 Chronic Nausea and vomiting (1 source) Nausea and vomiting; Translations: [Nausea & Vomiting] 11-25-2016 Episodic Open wounds of extremities (9 sources) Laceration of upper limb; Translations: [Upper Extremity Laceration] Onset: 03-15-2022 03-15-2022 Episodic Osteoarthritis (3 sources) Arthritis; Translations: [Unspecified osteoarthritis, unspecified site] Onset: 03-20-2023 03-20-2023 Chronic Other aftercare (3 sources) Prescribed medication regimen behavior finding; Translations: [Long-term (current) use of other medications] Episodic Other aftercare (2 sources) Drug therapy finding; Translations: [Long-term (current) use of other medications] Episodic Other aftercare (1 source) Surgical follow-up; Translations: [Encounter for follow-up examination after completed treatment for conditions other than malignant neoplasm] 06-08-2023 Episodic Other aftercare (2 sources) Encounter for follow-up examination after completed treatment for conditions other than malignant neoplasm; Translations: [Encounter for follow-up examination after completed treatment for conditions other than malignant neoplasm] Onset: 06-07-2023 Episodic Other circulatory disease (5 sources) H/O: hypertension; Translations: [Personal history of other diseases of circulatory system] Onset: 08-15-2023 08-15-2023 Episodic Other circulatory disease (1 source) Postural orthostatic tachycardia syndrome ; Translations: [Postural Orthostatic Tachycardia Syndrome] 02-26-2017 Episodic Other connective tissue disease (1 source) Fibromyalgia; Translations: [Fibromyalgia] Onset: 03-14-2023 Episodic Other connective tissue disease (2 sources) Myalgia, other site; Translations: [Myalgia, other site] Onset: 04-03-2023 Episodic Other diseases of bladder and urethra (2 sources) Overactive bladder; Translations: [Overactive bladder] Onset: 07-09-2023 Chronic Other female genital disorders (17 sources) Abnormal uterine bleeding; Translations: [Abnormal uterine and vaginal bleeding, unspecified] Onset: 04-02-2023 04-02-2023 Chronic Other female genital disorders (2 sources) Other specified conditions associated with female genital organs and menstrual cycle; Translations: [Other specified conditions associated with female genital organs and menstrual cycle] Onset: 05-14-2023 Episodic Other gastrointestinal disorders (3 sources) Esophageal dysphagia; Translations: [Other dysphagia] 04-05-2023 Episodic Other injuries and conditions due to external causes (1 source) Other injury of unspecified body region, initial encounter Episodic Other injuries and conditions due to external causes (2 sources) Injury of forearm; Translations: [Elbow, forearm, and wrist injury] Episodic Other injuries and conditions due to external causes (2 sources) Injury of finger of right hand; Translations: [Unspecified injury of right wrist, hand and finger(s), initial encounter] 09-22-2023 Episodic Other injuries and conditions due to external causes (1 source) Unspecified injury of right wrist, hand and finger(s), initial encounter; Translations: [Injury of finger of right hand, initial encounter] Onset: 09-22-2023 Episodic Other lower respiratory disease (1 source) Chronic pulmonary edema; Translations: [Chronic pulmonary edema] Onset: 03-14-2023 Chronic Other lower respiratory disease (20 sources) Cough; Translations: [Cough] Onset: 06-19-2019 06-19-2019 Episodic Other lower respiratory disease (3 sources) History of chronic obstructive airway disease; Translations: [Personal history of other diseases of respiratory system] Episodic Other lower respiratory disease (1 source) Personal history of pneumonia (recurrent); Translations: [Personal history of pneumonia (recurrent)] Onset: 03-15-2022 Episodic Other nervous system disorders (1 source) Lesion of ulnar nerve, left upper limb; Translations: [Lesion of ulnar nerve] Chronic Other upper respiratory disease (14 sources) Chronic rhinitis; Translations: [Chronic rhinitis] Onset: 04-02-2023 04-02-2023 Chronic Other upper respiratory disease (1 source) Nasal congestion; Translations: [Nasal Congestion] 05-04-2015 Episodic Other upper respiratory disease (1 source) Other diseases of bronchus, not elsewhere classified; Translations: [Bronchiolar disease] Onset: 08-16-2023 Episodic Other upper respiratory infections (2 sources) Acute upper respiratory infection; Translations: [Acute upper respiratory infection, unspecified] 10-09-2023 Episodic Ovarian cyst (1 source) Unspecified ovarian cyst, right side; Translations: [Unspecified ovarian cyst, right side] Onset: 03-14-2023 Episodic Residual codes; unclassified (1 source) Treatment not available; Translations: [Procedure and treatment not carried out for other reasons] Episodic Residual codes; unclassified (1 source) Influenza-like illness; Translations: [Laceration of peroneal artery] 10-14-2020 Episodic Spondylosis; intervertebral disc disorders; other back problems (20 sources) Neck pain; Translations: [Cervicalgia] Onset: 04-02-2023 06-07-2015 Episodic Substance-related disorders (1 source) Nicotine dependence, unspecified, uncomplicated; Translations: [Nicotine dependence, unspecified, uncomplicated] Onset: 03-14-2023 Chronic Unclassified (1 source) NO SHOW Unclassified (2 sources) Primary hypertension 03-09-2023 Unclassified (2 sources) Right nephrolithiasis 03-08-2023 Unclassified (1 source) Bilateral renal stones 03-08-2023 Unclassified (1 source) Adnexal mass 03-10-2023 Urinary tract infections (8 sources) Acute urinary tract infection; Translations: [Type 2 fracture of sacrum] Onset: 03-14-2023 07-04-2015 Episodic Comment on above: PYELONEPHRITIS Past or Other Problems Problem Classification Problem Date Documented Da te Episodic/Chronic Abdominal pain (20 sources) Epigastric pain; Translations: [Epigastric pain] Onset: 03-27-2012 Resolved: 10-14-2013 03-27-2012 Episodic Calculus of urinary tract (20 sources) Kidney stone; Translations: [Calculus of kidney] Onset: 07-24-2019 08-06-2019 Episodic Cardiac dysrhythmias (20 sources) Palpitations; Translations: [Palpitations] Onset: 03-17-2015 03-17-2015 Episodic Gastritis and duodenitis (20 sources) Acute gastritis; Translations: [Acute gastritis without bleeding] Onset: 04-03-2012 04-03-2012 Episodic Inflammatory diseases of female pelvic organs (20 sources) Acute pelvic inflammatory disease; Translations: [Acute parametritis and pelvic cellulitis] Onset: 03-17-2015 03-17-2015 Episodic Malaise and fatigue (20 sources) Fatigue; Translations: [Other fatigue] Onset: 03-17-2015 03-17-2015 Episodic Mood disorders (20 sources) Depressive disorder; Translations: [Major depressive disorder, single episode, unspecified] Onset: 03-27-2006 Resolved: 04-16-2008 04-02-2023 Chronic Nonspecific chest pain (20 sources) Chest pain; Translations: [Chest pain, unspecified] Onset: 04-02-2023 Resolved: 07-03-2023 05-04-2015 Episodic Other aftercare (2 sources) Other shelter (current) drug therapy; Translations: [Other shelter (current) drug therapy] Onset: 08-02-2021 Episodic Other connective tissue disease (20 sources) Myofascial pain; Translations: [Myalgia, other site] Onset: 06-14-2011 06-14-2011 Episodic Other connective tissue disease (16 sources) Fibromyalgia; Translations: [Myalgia and myositis, unspecified] Onset: 04-02-2023 04-02-2023 Episodic Other ear and sense organ disorders (14 sources) Abnormal auditory perception; Translations: [Abnormal auditory perception, unspecified] Onset: 04-02-2023 04-02-2023 Episodic Other ear and sense organ disorders (14 sources) Bilateral tinnitus; Translations: [Tinnitus, unspecified] Onset: 04-02-2023 04-02-2023 Episodic Other female genital disorders (13 sources) Mass of uterine adnexa; Translations: [Other specified symptoms associated with female genital organs] Onset: 05-14-2023 03-10-2023 Episodic Other gastrointestinal disorders (20 sources) Dysphagia; Translations: [Dysphagia, unspecified] Onset: 03-17-2015 03-17-2015 Episodic Other gastrointestinal disorders (4 sources) Other dysphagia; Translations: [Other dysphagia] Onset: 04-03-2023 Episodic Other gastrointestinal disorders (7 sources) Diarrhea; Translations: [Diarrhea, unspecified] Onset: 08-18-2023 08-18-2023 Episodic Other injuries and conditions due to external causes (2 sources) Unspecified injury of left forearm, initial encounter; Translations: [Unspecified injury of left forearm, initial encounter] Onset: 04-10-2022 Episodic Other injuries and conditions due to external causes (7 sources) Foreign body in lung; Translations: [Unspecified foreign body in other parts of respiratory tract causing other injury, initial encounter] Onset: 08-15-2023 08-15-2023 Episodic Other lower respiratory disease (20 sources) Dyspnea on exertion; Translations: [Other respiratory abnormalities] Onset: 04-02-2023 04-02-2023 Episodic Other lower respiratory disease (13 sources) Dyspnea; Translations: [Dyspnea, unspecified] Onset: 03-17-2015 06-06-2023 Episodic Other nervous system disorders (1 source) Other acute postprocedural pain; Translations: [Post-op pain] Onset: 06-01-2023 Episodic Other non-traumatic joint disorders (20 sources) Arthralgia of the pelvic region and thigh; Translations: [Pain in unspecified hip] Onset: 01-28-2008 01-28-2008 Episodic Other non-traumatic joint disorders (20 sources) Pain in lower limb; Translations: [Pain in unspecified knee] Onset: 01-28-2008 01-28-2008 Episodic Other non-traumatic joint disorders (20 sources) Shoulder pain; Translations: [Pain in unspecified shoulder] Onset: 03-18-2012 03-18-2012 Episodic Other screening for suspected conditions (not mental disorders or infectious disease) (20 sources) Patient encounter status; Translations: [Encounter for screening for other disorder] Onset: 03-20-2023 Episodic Otitis media and related conditions (14 sources) Dysfunction of eustachian tube; Translations: [Dysfunction of Eustachian tube] Onset: 04-02-2023 04-02-2023 Episodic Pleurisy; pneumothorax; pulmonary collapse (4 sources) Pleural effusion, not elsewhere classified; Translations: [Bilateral pleural effusion] Onset: 03-17-2015 Resolved: 07-24-2019 07-24-2019 Episodic Pneumonia (except that caused by tuberculosis or sexually transmitted disease) (9 sources) Pneumonia; Translations: [Pneumonia, unspecified organism] Onset: 03-17-2015 Resolved: 07-24-2019 07-24-2019 Episodic Pulmonary heart disease (20 sources) H/O: pulmonary embolus; Translations: [Personal history of pulmonary embolism] Onset: 06-01-2023 06-06-2023 Episodic Residual codes; unclassified (12 sources) Generalized aches and pains; Translations: [Generalized Aches & Pains] Onset: 04-02-2023 04-16-2015 Episodic Residual codes; unclassified (7 sources) Postoperative state; Translations: [Other specified postprocedural states] Onset: 06-07-2023 06-07-2023 Episodic Respiratory failure; insufficiency; arrest (adult) (12 sources) Acute respiratory failure; Translations: [Acute respiratory failure with hypoxia] Onset: 06-04-2023 06-04-2023 Episodic Sprains and strains (20 sources) Sprain of shoulder; Translations: [Unspecified sprain of right shoulder joint, initial encounter] Onset: 05-30-2005 09-08-2015 Episodic Unclassified (6 sources) [facility]; Translations: [[facility]] Unclassified (1 source) STOMACH FEVER CHILLS 03-08-2023 Comment on above: STOMACH FEVER CHILLS Unclassified (12 sources) Onset: 03-20-2023 Resolved: 08-06-2023 03-20-2023 Results Test Name Value Interpretation Reference Range Facility [facility] 10-22-2023 CN Office Visit (UCTR ) DAMARI RIOS ([id number]) 1975 F Date Time Provider Department 10/22/23 1:15 PM NAIF GIORDANO [facility] During your visit today, we recorded the following information about you: Temperature Pulse Respiration Blood pressure 97.5 degrees 82/minute 16/minute 148/82 Weight 81.5 kg Naif Goirdano MD 10/22/2023 1:26 PM Signed Patient presents with: Back Pain: right low back migrating into right leg pain x 10 days, moving furniture HPI: Back pain: Duration: moved about 2 weeks ago and has been hurting since Character: aching in the hips and right leg, pinching in the back Location: bilateral lower back Radiation: both hips, down the back of the leg to the calf and arch of the foot Aggravating: bending and twisting Relieving: Pain relievers: 800mg ibuprofen at night Associated: numbness/left can feel asleep, weakness after extended standing Pertinent negatives: Denies fever, loss of bladder or bowel control, falling ACTIVE PROBLEM LIST Sprain of Shoulder, Right Pain in Joint, Pelvic Region and Thigh Pain in Joint, Lower Leg Myofascial Pain Lumbar Sprain and Strain Anxiety Asthma Shoulder Pain Abdominal pain, epigastric Acute Gastritis Without Mention of Hemorrhage Dyspnea Sinus Tachycardia Pid (Acute Pelvic Inflammatory Disease) Asthma in Adult Fatigue Dysphagia Cough Renal Calculus, Right Other Pulmonary Embolism Without Acute Cor Pulmonale (Hcc) Chest Pain Hypertension History of Pulmonary Embolism Acute Hypoxic Respiratory Failure (Hcc) Abnormal Stress Test Postoperative State Abdominal Pain Moderate Persistent Asthma With Exacerbation Foreign Body in Lung Diarrhea MEDICATIONS: amLODIPine (NORVASC) 5 mg tablet Take 1 tablet by mouth every afternoon. apixaban (ELIQUIS) 5 mg tab(s) Take 5 mg by mouth two times a day. fluticasone (FLONASE) 50 mcg/actuation nasal spray Use 2 Sprays in each nostril once daily. Rinse mouth after use. carvedilol (COREG) 3.125 mg tablet Take 1 tablet by mouth two times a day with meals. mometasone-formoterol (DULERA) 200-5 mcg/actuation inhaler Inhale 2 Puffs as instructed two times a day. pantoprazole DR (PROTONIX) 40 mg tablet Take 40 mg by mouth once daily. famotidine (PEPCID) 40 mg tablet Take 40 mg by mouth daily at bedtime. albuterol (PROVENTIL) 2.5 mg /3 mL (0.083 %) nebulizer solution Use 3 mL via nebulizer every 6 hours as needed for Wheezing/Shortness of Breath. Inhale over 5-15 minutes albuterol HFA (PROAIR HFA) 90 mcg/actuation inhaler 2 Puffs every 6 hours as needed for Wheezing/Shortness of Breath. Take as directed ALLERGIES: ALLERGIES Allergen Reactions Penicillins Anaphylaxis Bactrim [Sulfametho* Ultram [Tramadol Hc* Intolerance VITALS: BP 148/82 Pulse 82 Temp 36.4 ?C (97.5 ?F) Resp 16 Wt 81.5 kg (179 lb 10.8 oz) LMP 07/24/2016 (Approximate) SpO2 98% BMI 30.84 kg/m? PHYSICAL EXAM: GEN: pleasant, no acute distress, alert HEART: regular rate, regular rhythm, no murmurs LUNGS: clear to auscultation, no wheezes or crackles, no increased WOB EXT: no clubbing, no cyanosis, no edema BACK: Normal curvature of spine. lumbar midline and paraspinal tenderness. Straight leg test positive (R>L). Deep tendon reflexes 2+/4 at patellas. Normal lower extremity strength. Mild limping gait. ASSESSMENT/PLAN: 1. Acute bilateral low back pain with right-sided sciatica - ICD9: 724.2, 724.3, 338.19, ICD10: M54.41 Advised against using NSAIDs with eliquis (post-op PE in June) which she is aware of. - PREDNISONE 10 MG TABLET taper. Reports has tolerated in the past for asthma. May use acetaminophen PRN. Continue protonix for gastritis protection. Declines muscle relaxer because of dizziness side effect. Seek immediate evaluation for loss of bladder or bowel control, unexplained fever, or progressive weakness or numbness. Naif Giordano MD Allergies As of Date: 10/22/2023 Noted Allergy Reaction PENICILLINS 03/13/2005 10 - Anaphylaxis BACTRIM (SULFAMETHOXAZOLE-TRIM ETH*03/13/2005 ULTRAM (TRAMADOL HCL) 03/13/2005 5 - Intolerance Date Reviewed: 10/22/2023 Reviewed by: Mounika Acosta MA - Fully Assessed Reason for Visit: Back Pain [12] Cmt: right low back migrating into right leg pain x 10 days, moving furniture Primary Visit Diagnosis:Acute bilateral low back pain with right-sided sciatica [M54.41] Order(s):predniSONE (DELTASONE) 10 mg tabletTake by mouth 6 pills on day 1, 5 pills on day 2, 4 pills on day 3, 3 pills on day 4, 2 pills on day 5, 1 pill on day 6Disp: 21 tabletRfl: 0 Prescriptions as of 10/22/2023 - predniSONE (DELTASONE) 10 mg tablet Take by mouth 6 pills on day 1, 5 pills on day 2, 4 pills on day 3, 3 pills on day 4, 2 pills on day 5, 1 pill on day 6 - amLODIPine (NORVASC) 5 mg tablet Take 1 tablet by mouth every after (more content not included)... Normal [facility] CNOVon 10-09-2023 CNOV Office Visit (UCWSTR ) DAMARI RIOS ([id number]) 1975 F Date Time Provider Department 10/09/23 8:30 AM ROLAND MCDANIEL WSTR During your visit today, we recorded the following information about you: Temperature Pulse Respiration Blood pressure 97.3 degrees 60/minute 18/minute 128/88 Weight 79 kg Destiny Scruggs 10/09/2023 9:06 AM Addendum Subjective Sore Throat Associated symptoms include congestion, coughing and ear pain. Pertinent negatives include no abdominal pain, diarrhea, ear discharge, headaches or vomiting. Pt presents to clinic on October 09, 2023 for CC: congestion and sore throat Symptoms since Sunday: nasal congestion, slight intermittent dry cough, decreased appetite, sore throat, R ear pain 5/10 achy, R ear feels clogged, chills, sweats, body aches, fatigue, not sleeping well due to congestion Denies: postnasal drip, decreased hearing, ringing in the ears, drainage, fever, dizziness, headaches, n/v, stomach pain Meds: tylenol No problems with elimination Has history of blood clots in lungs so gets nervous when she gets sick Sick exposures: granddaughter has strep Review of Systems Constitutional: Positive for chills, diaphoresis and malaise/fatigue. Negative for fever. HENT: Positive for congestion, ear pain and sore throat. Negative for ear discharge, hearing loss, sinus pain and tinnitus. Eyes: Negative for pain. Respiratory: Positive for cough. Negative for sputum production. Cardiovascular: Negative for chest pain. Gastrointestinal: Negative for abdominal pain, constipation, diarrhea, nausea and vomiting. Genitourinary: Negative for dysuria. Musculoskeletal: Positive for myalgias. Neurological: Negative for dizziness and headaches. BP 128/88 Pulse 60 Temp 36.3 ?C (97.3 ?F) Resp 18 Wt 79 kg (174 lb 2.6 oz) LMP 07/24/2016 (Approximate) SpO2 97% BMI 29.90 kg/m? PAST MEDICAL HISTORY Diagnosis Date - Bipolar I disorder, most recent episode (or current) unspecified - Calculus of bile duct without mention of cholecystitis, with obstruction - Irritable bowel syndrome - Kidney stone - Known health problems: none 04/04/2021 - Other and unspecified ovarian cyst - Other cholecystitis - Seasonal allergies - Temporomandibular joint disorders, unspecified - Unspecified asthma(493.90) PAST SURGICAL HISTORY Procedure Laterality Date - ADENOIDECTOMY PRIMARY Adenoidectomy - COLONOSCOPY FLX DX W/COLLJ SPEC WHEN PFRMD 04/03/2012 pt discomfort, normal to transverse colon - ordered BE - EGD TRANSORAL BIOPSY SINGLE/MULTIPLE 04/03/2012 mild gastritis - HYSTERECTOMY HX 2017 - LAPAROSCOPY SURG CHOLECYSTECTOMY 1999 Cholecystectomy, lap - LIG/TRNSXJ FLP TUBE ABDL/VAG APPR UNI/BI 1998 - PAST SURGICAL HISTORY OF 2016 ureteral stent placed - REMOVAL OF OVARY/TUBE(S) 2022 RSO, LS - SLING 2022 - TONSILLECTOMY PRIMARY/SECONDARY Tonsillectomy ALLERGIES Penicillins, Bactrim [Sulfamethoxazole-Trim ethoprim], and Ultram [Tramadol Hcl] MEDICATIONS - amLODIPine (NORVASC) 5 mg tablet Take 1 tablet by mouth every afternoon. - apixaban (ELIQUIS) 5 mg tab(s) Take 5 mg by mouth two times a day. - carvedilol (COREG) 3.125 mg tablet Take 1 tablet by mouth two times a day with meals. - mometasone-formoterol (DULERA) 200-5 mcg/actuation inhaler Inhale 2 Puffs as instructed two times a day. - pantoprazole DR (PROTONIX) 40 mg tablet Take 40 mg by mouth once daily. - famotidine (PEPCID) 40 mg tablet Take 40 mg by mouth daily at bedtime. - albuterol (PROVENTIL) 2.5 mg /3 mL (0.083 %) nebulizer solution Use 3 mL via nebulizer every 6 hours as needed for Wheezing/Shortness of Breath. Inhale over 5-15 minutes - albuterol HFA (PROAIR HFA) 90 mcg/actuation inhaler 2 Puffs every 6 hours as needed for Wheezing/Shortness of Breath. Take as directed FAMILY HISTORY Problem Relation Age of Onset - Hypertension Mother - Breast Cancer Paternal Grandmother lung - GI Paternal Grandfather - Diabetes Maternal Grandmother from lung ca - Diabetes Maternal Grandfather from unk cause - Colon Cancer Maternal Uncle age 43 - other (POTS) Sister - other (Lupus) Other niece - other (lupus) Other - Anesthesia Problems No Family History - Colon Polyps No Family History Social History Tobacco Use - Smoking status: Never - Smokeless tobacco: Never Vaping Use - Vaping Use: Never used Substance Use Topics - Alcohol use: Yes Comment: very rare- maybe 2x/ year - Drug use: No Objective Physical Exam Vitals and nursing note reviewed. Constitutional: General: She is not in acute distress. Appearance: Normal appearance. She is not ill-appearing, toxic-appearing or diaphoretic. HENT: Head: Normocephalic. Right Ear: Tympanic membrane, ear canal and external ear normal. There is no impacted cerumen. Left Ear: Tympanic membrane, (more content not included)... Normal [facility] STREP A MOLECULAR (POC)on Procedural Control Valid [facility] Strep A (POCT) Negative Negative [facility] CNOVon 09-29-2023 CNOV Office Visit (UCWSTR ) DAMARI RIOS ([id number]) 1975 F Date Time Provider Department 09/29/23 9:15 AM [facility] WSTR UCWSTR During your visit today, we recorded the following information about you: Colleen Cisneros PA-C 09/29/2023 9:17 AM Signed Patient presents to express care triage with worsening abdominal pain for 2-3 days. It is painful in the right flank and upper abdomen. She has had nausea. No fever. She has had multiple abdominal surgeries previously. She denies dysuria, frequency, urgency. Her urine has been dark. She does not have a primary care provider. She is already on protonix for gastritis. Discussed to be evaluated for abdominal pain, I would recommend ER at this point. Patient will go to [facility] ED. Allergies As of Date: 09/29/2023 Noted Allergy Reaction PENICILLINS 03/13/2005 10 - Anaphylaxis BACTRIM (SULFAMETHOXAZOLE-TRIM ETH*03/13/2005 ULTRAM (TRAMADOL HCL) 03/13/2005 5 - Intolerance Date Reviewed: 09/22/2023 Reviewed by: Justyn Maldonado APRN.[employer] - Fully Assessed Primary Visit Diagnosis:Abdominal pain, unspecified abdominal location [R10.9] Prescriptions as of 09/29/2023 - apixaban (ELIQUIS) 5 mg tab(s) Take 5 mg by mouth two times a day. - carvedilol (COREG) 3.125 mg tablet Take 1 tablet by mouth two times a day with meals. - mometasone-formoterol (DULERA) 200-5 mcg/actuation inhaler Inhale 2 Puffs as instructed two times a day. - pantoprazole DR (PROTONIX) 40 mg tablet Take 40 mg by mouth once daily. - famotidine (PEPCID) 40 mg tablet Take 40 mg by mouth daily at bedtime. - albuterol (PROVENTIL) 2.5 mg /3 mL (0.083 %) nebulizer solution Use 3 mL via nebulizer every 6 hours as needed for Wheezing/Shortness of Breath. Inhale over 5-15 minutes - albuterol HFA (PROAIR HFA) 90 mcg/actuation inhaler 2 Puffs every 6 hours as needed for Wheezing/Shortness of Breath. Take as directed Problem List As Of Date 09/29/2023 Noted Resolved Sprain of shoulder, right [S43.401A] 05/30/2005 BIPOLAR - MOST RECENTLY MIXED MILD [F31.61] 03/27/2006 04/16/2008 ANXIETY STATE NOS [F41.1] 03/27/2006 04/16/2008 PANIC DISORDER WITHOUT AGORAPHOBIA [F41.0] 03/27/2006 04/16/2008 JOINT PAIN-PELVIS [M25.559] 01/28/2008 PAIN IN JOINT, LOWER LEG [M25.569] 01/28/2008 Myofascial pain [M79.18] 06/14/2011 Lumbar sprain and strain 06/14/2011 Anxiety [F41.9] 02/15/2012 Asthma [J45.909] 02/15/2012 Shoulder pain [M25.519] 03/18/2012 Abdominal pain, epigastric [R10.13] 03/27/2012 Abdominal pain, unspecified site [R10.9] 04/03/2012 10/14/2013 Acute gastritis without mention of hemorrhage [*04/03/2012 Community acquired pneumonia [J18.9] 03/17/2015 07/24/2019 Bilateral pleural effusion [J90] 03/17/2015 07/24/2019 Dyspnea [R06.00] 03/17/2015 Sinus tachycardia [R00.0] 03/17/2015 PID (acute pelvic inflammatory disease) [N73.0] 03/17/2015 Asthma in adult [J45.909] 03/17/2015 Fatigue [R53.83] 03/17/2015 Dysphagia [R13.10] 03/17/2015 Cough [R05.9] 06/19/2019 Renal calculus, right [N20.0] 07/24/2019 Other pulmonary embolism without acute cor pulm*06/01/2023 Chest pain [R07.9] 06/02/2023 Hypertension [I10] 06/02/2023 History of pulmonary embolism [Z86.711] 06/02/2023 Acute hypoxic respiratory failure (HCC) [J96.01]06/04/2023 Abnormal stress test [R94.39] 06/07/2023 Postoperative state [Z98.890] 06/07/2023 Abdominal pain [R10.9] 06/07/2023 Moderate persistent asthma with exacerbation [J*06/11/2023 Foreign body in lung [T17.808A] 08/15/2023 Diarrhea [R19.7] 08/18/2023 Encounter Status:Closed by COLLEEN CISNEROS on 09/29/23 Normal [facility] CNOVon 09-22-2023 CNOV Office Visit (UCWSTR ) DAMARI RIOS ([id number]) 1975 F Date Time Provider Department 09/22/23 8:30 AM JUSTYN MALDONADO [facility] During your visit today, we recorded the following information about you: Temperature Pulse Respiration Blood pressure 97 degrees 84/minute 21/minute 122/90 Weight 78.3 kg Justyn Maldonado APRN.[employer] 09/22/2023 9:24 AM Signed Subjective HPI Nontoxic-appearing female presents urgent care chief complaint hand injury. Duration of symptom 1 day. Associated symptoms right hand pain. Patient states she got fourth digit in the car door yesterday around 8 PM. Feels swollen and painful today. States has not used any OTC medications. No weaknesses. Pain is increased by movement or palpation. [id number]. No surgeries or fractures in the past. Denies chance of . Is not breast-feeding. No numbness no tingling. No decrease sensation. Past medical history prescription medications allergies reviewed. .Patient presents with: Trauma: Smashed rt hand index finger in car door x 1 day PAST MEDICAL HISTORY Diagnosis Date Bipolar I disorder, most recent episode (or current) unspecified Calculus of bile duct without mention of cholecystitis, with obstruction Irritable bowel syndrome Kidney stone Known health problems: none 04/04/2021 Other and unspecified ovarian cyst Other cholecystitis Seasonal allergies Temporomandibular joint disorders, unspecified Unspecified asthma(493.90) PAST SURGICAL HISTORY Procedure Laterality Date ADENOIDECTOMY PRIMARY Adenoidectomy COLONOSCOPY FLX DX W/COLLJ SPEC WHEN PFRMD 04/03/2012 pt discomfort, normal to transverse colon - ordered BE EGD TRANSORAL BIOPSY SINGLE/MULTIPLE 04/03/2012 mild gastritis HYSTERECTOMY HX 2017 LAPAROSCOPY SURG CHOLECYSTECTOMY 2000 Cholecystectomy, lap LIG/TRNSXJ FLP TUBE ABDL/VAG APPR UNI/BI 1998 PAST SURGICAL HISTORY OF 2016 ureteral stent placed REMOVAL OF OVARY/TUBE(S) 2022 RSO, LS SLING 2022 TONSILLECTOMY PRIMARY/SECONDARY Tonsillectomy ALLERGIES Penicillins, Bactrim [Sulfamethoxazole-Trim ethoprim], and Ultram [Tramadol Hcl] MEDICATIONS apixaban (ELIQUIS) 5 mg tab(s) Take 5 mg by mouth two times a day. carvedilol (COREG) 3.125 mg tablet Take 1 tablet by mouth two times a day with meals. mometasone-formoterol (DULERA) 200-5 mcg/actuation inhaler Inhale 2 Puffs as instructed two times a day. pantoprazole DR (PROTONIX) 40 mg tablet Take 40 mg by mouth once daily. famotidine (PEPCID) 40 mg tablet Take 40 mg by mouth daily at bedtime. albuterol (PROVENTIL) 2.5 mg /3 mL (0.083 %) nebulizer solution Use 3 mL via nebulizer every 6 hours as needed for Wheezing/Shortness of Breath. Inhale over 5-15 minutes albuterol HFA (PROAIR HFA) 90 mcg/actuation inhaler 2 Puffs every 6 hours as needed for Wheezing/Shortness of Breath. Take as directed FAMILY HISTORY Problem Relation Age of Onset Hypertension Mother Breast Cancer Paternal Grandmother lung GI Paternal Grandfather Diabetes Maternal Grandmother from lung ca Diabetes Maternal Grandfather from unk cause Colon Cancer Maternal Uncle age 43 other (POTS) Sister other (Lupus) Other niece other (lupus) Other Anesthesia Problems No Family History Colon Polyps No Family History Social History Tobacco Use Smoking status: Never Smokeless tobacco: Never Vaping Use Vaping Use: Never used Substance Use Topics Alcohol use: Yes Comment: very rare- maybe 2x/ year Drug use: No BP 122/90 Pulse 84 Temp 36.1 ?C (97 ?F) Resp 21 Wt 78.3 kg (172 lb 9.9 oz) LMP 07/24/2016 (Approximate) SpO2 99% BMI 29.63 kg/m? Review of Systems Constitutional: Negative for chills, fever and malaise/fatigue. HENT: Negative for congestion, ear discharge, ear pain, sinus pain and sore throat. Eyes: Negative for blurred vision, pain, discharge and redness. Respiratory: Negative for cough, hemoptysis, sputum production, shortness of breath, wheezing and stridor. Cardiovascular: Negative for chest pain. Gastrointestinal: Negative for abdominal pain, diarrhea, nausea and vomiting. Musculoskeletal: Positive for joint pain. Negative for myalgias. Skin: Negative for itching and rash. Neurological: Negative for dizziness and headaches. Objective Physical Exam Constitutional: General: She is not in acute distress. Appearance: She is not toxic-appearing. HENT: Head: Normocephalic. Nose: Nose normal. Eyes: Pupils: Pupils are equal, round, and reactive to light. Cardiovascular: Rate and Rhythm: Normal rate. Pulmonary: Effort: Pulmonary effort is normal. No respiratory distress. Musculoskeletal: Hands: Cervical back: Normal range of motion. Comments: Pain with palpation the highlighted area. No breaks in the skin. No injury to nail or nailbed noted. Neurovascular intact. No weakn (more content not included)... Normal [facility] 09-22-2023 [facility] Telephone (UCTR) DAMARI RIOS ([id number]) 1975 F Date Time Provider Department 09/22/23 JUSTYN MALDONADO [facility] During your visit today, we recorded the following information about you: Justyn Maldonado APRN.BEN 09/22/2023 9:25 AM Signed Radiologist read no acute fractures on x-ray. I would recommend continue wearing splint over the next 5 to 7 days for comfort measures. Follow-up with PCP if symptoms or not improving. Justyn Maldonado APRN.Tammy Laughlin MA 09/22/2023 9:35 AM Signed Patient notified of results, verbalized understanding of instructions given. Tammy Flynn MA Allergies As of Date: 09/22/2023 Noted Allergy Reaction PENICILLINS 03/13/2005 10 - Anaphylaxis BACTRIM (SULFAMETHOXAZOLE-TRIM ETH*03/13/2005 ULTRAM (TRAMADOL HCL) 03/13/2005 5 - Intolerance Date Reviewed: 09/22/2023 Reviewed by: Justyn Maldonado APRN.[employer] - Fully Assessed Reason for Visit: Results [95] Prescriptions as of 09/22/2023 - apixaban (ELIQUIS) 5 mg tab(s) Take 5 mg by mouth two times a day. - carvedilol (COREG) 3.125 mg tablet Take 1 tablet by mouth two times a day with meals. - mometasone-formoterol (DULERA) 200-5 mcg/actuation inhaler Inhale 2 Puffs as instructed two times a day. - pantoprazole DR (PROTONIX) 40 mg tablet Take 40 mg by mouth once daily. - famotidine (PEPCID) 40 mg tablet Take 40 mg by mouth daily at bedtime. - albuterol (PROVENTIL) 2.5 mg /3 mL (0.083 %) nebulizer solution Use 3 mL via nebulizer every 6 hours as needed for Wheezing/Shortness of Breath. Inhale over 5-15 minutes - albuterol HFA (PROAIR HFA) 90 mcg/actuation inhaler 2 Puffs every 6 hours as needed for Wheezing/Shortness of Breath. Take as directed Problem List As Of Date 09/22/2023 Noted Resolved Sprain of shoulder, right [S43.401A] 05/30/2005 BIPOLAR - MOST RECENTLY MIXED MILD [F31.61] 03/27/2006 04/16/2008 ANXIETY STATE NOS [F41.1] 03/27/2006 04/16/2008 PANIC DISORDER WITHOUT AGORAPHOBIA [F41.0] 03/27/2006 04/16/2008 JOINT PAIN-PELVIS [M25.559] 01/28/2008 PAIN IN JOINT, LOWER LEG [M25.569] 01/28/2008 Myofascial pain [M79.18] 06/14/2011 Lumbar sprain and strain 06/14/2011 Anxiety [F41.9] 02/15/2012 Asthma [J45.909] 02/15/2012 Shoulder pain [M25.519] 03/18/2012 Abdominal pain, epigastric [R10.13] 03/27/2012 Abdominal pain, unspecified site [R10.9] 04/03/2012 10/14/2013 Acute gastritis without mention of hemorrhage [*04/03/2012 Community acquired pneumonia [J18.9] 03/17/2015 07/24/2019 Bilateral pleural effusion [J90] 03/17/2015 07/24/2019 Dyspnea [R06.00] 03/17/2015 Sinus tachycardia [R00.0] 03/17/2015 PID (acute pelvic inflammatory disease) [N73.0] 03/17/2015 Asthma in adult [J45.909] 03/17/2015 Fatigue [R53.83] 03/17/2015 Dysphagia [R13.10] 03/17/2015 Cough [R05.9] 06/19/2019 Renal calculus, right [N20.0] 07/24/2019 Other pulmonary embolism without acute cor pulm*06/01/2023 Chest pain [R07.9] 06/02/2023 Hypertension [I10] 06/02/2023 History of pulmonary embolism [Z86.711] 06/02/2023 Acute hypoxic respiratory failure (HCC) [J96.01]06/04/2023 Abnormal stress test [R94.39] 06/07/2023 Postoperative state [Z98.890] 06/07/2023 Abdominal pain [R10.9] 06/07/2023 Moderate persistent asthma with exacerbation [J*06/11/2023 Foreign body in lung [T17.808A] 08/15/2023 Diarrhea [R19.7] 08/18/2023 Encounter Status:Closed by T[facility] FLYNN [facility] 09[facility]22/[facility] ([id number]) 1975 F Date Time Provider Department 09/22/23 [facility] During your visit today, we recorded the following information about you: Janette Santa 09/22/2023 9:26 AM Signed Pt is previous pt of Lb, wondering if she can reestablish as she has recently moved back to [place]. Please review and advise. Janette Santa September 22, 2023 9:26 AM Elizabeth Vergara MA 09/24/2023 8:54 AM Signed Our practice is closed, no longer accepting any patients. She has not see Dr. Asher since 2013 and she no showed 3 times within that year. Elizabeth Vergara MA Allergies As of Date: 09/22/2023 Noted Allergy Reaction PENICILLINS 03/13/2005 10 - Anaphylaxis BACTRIM (SULFAMETHOXAZOLE-TRIM ETH*03/13/2005 ULTRAM (TRAMADOL HCL) 03/13/2005 5 - Intolerance Date Reviewed: 09/22/2023 Reviewed by: Justyn Maldonado APRN.[employer] - Fully Assessed Prescriptions as of 09/24/2023 - apixaban (ELIQUIS) 5 mg tab(s) Take 5 mg by mouth two times a day. - carvedilol (COREG) 3.125 mg tablet Take 1 tablet by mouth two times a day with meals. - mometasone-formoterol (DULERA) 200-5 mcg/actuation inhaler Inhale 2 Puffs as instructed two times a day. - pantoprazole DR (PROTONIX) 40 mg tablet Take 40 mg by mouth once daily. - famotidine (PEPCID) 40 mg tablet Take 40 mg by mouth daily at bedtime. - albuterol (PROVENTIL) 2.5 mg /3 mL (0.083 %) nebulizer solution Use 3 mL via nebulizer every 6 hours as needed for Wheezing/Shortness of Breath. Inhale over 5-15 minutes - albuterol HFA (PROAIR HFA) 90 mcg/actuation inhaler 2 Puffs every 6 hours as needed for Wheezing/Shortness of Breath. Take as directed Problem List As Of Date 09/22/2023 Noted Resolved Sprain of shoulder, right [S43.401A] 05/30/2005 BIPOLAR - MOST RECENTLY MIXED MILD [F31.61] 03/27/2006 04/16/2008 ANXIETY STATE NOS [F41.1] 03/27/2006 04/16/2008 PANIC DISORDER WITHOUT AGORAPHOBIA [F41.0] 03/27/2006 04/16/2008 JOINT PAIN-PELVIS [M25.559] 01/28/2008 PAIN IN JOINT, LOWER LEG [M25.569] 01/28/2008 Myofascial pain [M79.18] 06/14/2011 Lumbar sprain and strain 06/14/2011 Anxiety [F41.9] 02/15/2012 Asthma [J45.909] 02/15/2012 Shoulder pain [M25.519] 03/18/2012 Abdominal pain, epigastric [R10.13] 03/27/2012 Abdominal pain, unspecified site [R10.9] 04/03/2012 10/14/2013 Acute gastritis without mention of hemorrhage [*04/03/2012 Community acquired pneumonia [J18.9] 03/17/2015 07/24/2019 Bilateral pleural effusion [J90] 03/17/2015 07/24/2019 Dyspnea [R06.00] 03/17/2015 Sinus tachycardia [R00.0] 03/17/2015 PID (acute pelvic inflammatory disease) [N73.0] 03/17/2015 Asthma in adult [J45.909] 03/17/2015 Fatigue [R53.83] 03/17/2015 Dysphagia [R13.10] 03/17/2015 Cough [R05.9] 06/19/2019 Renal calculus, right [N20.0] 07/24/2019 Other pulmonary embolism without acute cor pulm*06/01/2023 Chest pain [R07.9] 06/02/2023 Hypertension [I10] 06/02/2023 History of pulmonary embolism [Z86.711] 06/02/2023 Acute hypoxic respiratory failure (HCC) [J96.01]06/04/2023 Abnormal stress test [R94.39] 06/07/2023 Postoperative state [Z98.890] 06/07/2023 Abdominal pain [R10.9] 06/07/2023 Moderate persistent asthma with exacerbation [J*06/11/2023 Foreign body in lung [T17.808A] 08/15/2023 Diarrhea [R19.7] 08/18/2023 Encounter Status:Closed by JANETTE SANTA on 09/24/23 Normal [facility] XR DIGIT 3V FRONTAL/LAT/OBL RTon 09-22-2023 XR DIGIT 3V FRONTAL/LAT/OBL RT * * *Final Report* * * DATE OF EXAM: Sep 22 2023 8:59AM WOX [id number] - XR DIGIT 3V FRONTAL/LAT/OBL RT / PROCEDURE REASON: Injury of finger of right hand, initial encounter * * * * Physician Interpretation * * * * EXAMINATION: XR DIGIT 3V FRONTAL/LAT/OBL RT CLINICAL HISTORY: Right ring finger injury Technique: XR DIGIT 3V FRONTAL/LAT/OBL RT -- RIGHT with 3 views on 3 images Comparison: None RESULT: No acute fracture or dislocation. Joint spaces are maintained. IMPRESSION: No acute osseous abnormality Mounter Saxophones: PSCB Transcribe Date/Time: Sep 22 2023 9:12A Dictated by : RUSS DILLON MD This examination was interpreted and the report reviewed and electronically signed by: RUSS DILLON MD on Sep 22 2023 9:13AM EST [id number] Normal [facility] XR Finger - right AP and Lat eral and obliqueon 09-22-2023 IMPRESSION: No acute osseous abnormality Mounter Saxophones: PSCB Transcribe Date/Time: Sep 22 2023 9:12A Dictated by : RUSS DILLON MD This examination was interpreted and the report reviewed and electronically signed by: RUSS DILLON MD on Sep 22 2023 9:13AM EST DIVISION OF RADIOLOGY * * *Final Report* * * DATE OF EXAM: Sep 22 2023 8:59AM WOX [id number] - XR DIGIT 3V FRONTAL/LAT/OBL RT / PROCEDURE REASON: Injury of finger of right hand, initial encounter * * * * Physician Interpretation * * * * EXAMINATION: XR DIGIT 3V FRONTAL/LAT/OBL RT CLINICAL HISTORY: Right ring finger injury Technique: XR DIGIT 3V FRONTAL/LAT/OBL RT -- RIGHT with 3 views on 3 images Comparison: None RESULT: No acute fracture or dislocation. Joint spaces are maintained. DIVISION OF RADIOLOGY Provider, [facility] - 09/22/2023 * * *Final Report* * * DATE OF EXAM: Sep 22 2023 8:59AM WOX [id number] - XR DIGIT 3V FRONTAL/LAT/OBL RT / PROCEDURE REASON: Injury of finger of right hand, initial encounter * * * * Physician Interpretation * * * * EXAMINATION: XR DIGIT 3V FRONTAL/LAT/OBL RT CLINICAL HISTORY: Right ring finger injury Technique: XR DIGIT 3V FRONTAL/LAT/OBL RT -- RIGHT with 3 views on 3 images Comparison: None RESULT: No acute fracture or dislocation. Joint spaces are maintained. IMPRESSION IMPRESSION: No acute osseous abnormality Mounter Saxophones: PSCB Transcribe Date/Time: Sep 22 2023 9:12A Dictated by : RUSS DILLON MD This examination was interpreted and the report reviewed and electronically signed by: RUSS DILLON MD on Sep 22 2023 9:13AM EST [facility] Radiology Study observation (narrative) [facility] XR Finger - right AP and Lat eral and obliqueOrdered By: Ccf Provider on 09-22-2023 [facility] CNPNon 08-21-2023 CNPN Telephone (PODCCP) DAMARI RIOS ([id number]) 1975 F Date Time Provider Department 08/21/23 NO PCP PODCCP During your visit today, we recorded the following information about you: Allergies As of Date: 08/21/2023 Noted Allergy Reaction PENICILLINS 03/13/2005 10 - Anaphylaxis BACTRIM (SULFAMETHOXAZOLE-TRIM ETH*03/13/2005 ULTRAM (TRAMADOL HCL) 03/13/2005 5 - Intolerance Date Reviewed: 08/18/2023 Reviewed by: Miguel Diaz RN - Fully Assessed Reason for Visit: Follow Up Phone Call [[phone]] Cmt: Post Discharge F/U - attempt made. No answer. Prescriptions as of 08/21/2023 - apixaban (ELIQUIS) 5 mg tab(s) Take 5 mg by mouth two times a day. - carvedilol (COREG) 3.125 mg tablet Take 1 tablet by mouth two times a day with meals. - mometasone-formoterol (DULERA) 200-5 mcg/actuation inhaler Inhale 2 Puffs as instructed two times a day. - pantoprazole DR (PROTONIX) 40 mg tablet Take 40 mg by mouth once daily. - famotidine (PEPCID) 40 mg tablet Take 40 mg by mouth daily at bedtime. - albuterol (PROVENTIL) 2.5 mg /3 mL (0.083 %) nebulizer solution Use 3 mL via nebulizer every 6 hours as needed for Wheezing/Shortness of Breath. Inhale over 5-15 minutes - albuterol HFA (PROAIR HFA) 90 mcg/actuation inhaler 2 Puffs every 6 hours as needed for Wheezing/Shortness of Breath. Take as directed Problem List As Of Date 08/21/2023 Noted Resolved Sprain of shoulder, right [S43.401A] 05/30/2005 BIPOLAR - MOST RECENTLY MIXED MILD [F31.61] 03/27/2006 04/16/2008 ANXIETY STATE NOS [F41.1] 03/27/2006 04/16/2008 PANIC DISORDER WITHOUT AGORAPHOBIA [F41.0] 03/27/2006 04/16/2008 JOINT PAIN-PELVIS [M25.559] 01/28/2008 PAIN IN JOINT, LOWER LEG [M25.569] 01/28/2008 Myofascial pain [M79.18] 06/14/2011 Lumbar sprain and strain 06/14/2011 Anxiety [F41.9] 02/15/2012 Asthma [J45.909] 02/15/2012 Shoulder pain [M25.519] 03/18/2012 Abdominal pain, epigastric [R10.13] 03/27/2012 Abdominal pain, unspecified site [R10.9] 04/03/2012 10/14/2013 Acute gastritis without mention of hemorrhage [*04/03/2012 Community acquired pneumonia [J18.9] 03/17/2015 07/24/2019 Bilateral pleural effusion [J90] 03/17/2015 07/24/2019 Dyspnea [R06.00] 03/17/2015 Sinus tachycardia [R00.0] 03/17/2015 PID (acute pelvic inflammatory disease) [N73.0] 03/17/2015 Asthma in adult [J45.909] 03/17/2015 Fatigue [R53.83] 03/17/2015 Dysphagia [R13.10] 03/17/2015 Cough [R05.9] 06/19/2019 Renal calculus, right [N20.0] 07/24/2019 Other pulmonary embolism without acute cor pulm*06/01/2023 Chest pain [R07.9] 06/02/2023 Hypertension [I10] 06/02/2023 History of pulmonary embolism [Z86.711] 06/02/2023 Acute hypoxic respiratory failure (HCC) [J96.01]06/04/2023 Abnormal stress test [R94.39] 06/07/2023 Postoperative state [Z98.890] 06/07/2023 Abdominal pain [R10.9] 06/07/2023 Moderate persistent asthma with exacerbation [J*06/11/2023 Foreign body in lung [T17.808A] 08/15/2023 Diarrhea [R19.7] 08/18/2023 Encounter Status:Closed by [facility]ILDS on 08/21/23 Normal [facility] CNCOon 08-18-2023 CNCO Letter Text Normal [facility] CNDSon 08-18-2023 [facility] HNO ID: [id number] Author: ZAINAB CROFT MD Service: Hospital Medicine Author Type: Physician Type: Discharge Summary Filed: 09/14/2023 19:38 Note Text: DISCHARGE SUMMARY PATIENT NAME: Damari Rios ADMISSION DATE: 08/14/2023 7:40 PM DISCHARGE DATE: 08/18/2023 Attending Physician: Zainab Croft V, MD Reason for Hospitalization: Primary Diagnosis: Foreign body in airway - Metallic FB in RLL on CT imaging; likely facial piercing she lost recently - successfully removed via bronchoscopy 08/16/23 Recent PE - Dx on CT 06/01/2023 - Likely provoked following salipingo-oophrectomy/ urethral sling surgery May 2023 - on Eliquis prior to admit, switched to heparin for bronch Asthma - Recently started on Dulera on discharge from recent prior admission - Stable Secondary Diagnoses: see hospital course Operations During Hospitalization: None Procedures During Hospitalization: Bronchoscopy Hospital Course: Foreign body in airway - Metallic FB in RLL on CT imaging; likely facial piercing she lost recently - successfully removed via bronchoscopy 08/16/23 Recent PE - Dx on CT 06/01/2023 - Likely provoked following salipingo-oophrectomy/ urethral sling surgery May 2023 - on Eliquis prior to admit, switched to heparin for bronch Asthma - Recently started on Dulera on discharge from recent prior admission - Stable Pulmonary Plan: - Continue LABA/ICS and albuterol nebs. Resume Dulera on discharge. - Ok to resume Eliquis from Pulmonary standpoint - Management for abdominal pain per Primary - Outpatient Pulmonary follow up scheduled Labs and Procedures Pending at Discharge: N/A Consulting Teams During Hospitalization: Treatment Team: Attending Provider: Zainab Croft V, MD Patient Condition @ Discharge: stable Discharge Disposition: Home with Self Care Discharge HPI: Discharge Physical Exam: VITAL SIGNS: BP 102/60 Pulse 68 Temp 36.6 ?C (97.9 ?F) (Oral) Resp 18 Ht 162.6 cm (5' 4 ) Wt 73.5 kg (162 lb) LMP 07/24/2016 (Approximate) SpO2 100% BMI 27.81 kg/m? GENERAL: Alert, no distress, cooperative LUNGS: Lungs clear to auscultation. Good diaphragmatic excursion. CARDIAC: normal S1 and S2; no rubs, murmurs, or gallops ABDOMEN: Soft, nontender EXTREMETIES: No LE edema. NEURO: Alert, oriented X 3, non focal Information Provided to Patient: Educated as appropriate Discharge Medications: Medication List CHANGE how you take these medications carvedilol 3.125 mg tablet Commonly known as: COREG Take 1 tablet by mouth two times a day with meals. What changed: how much to take CONTINUE taking these medications * albuterol HFA 90 mcg/actuation inhaler Commonly known as: PROAIR HFA 2 Puffs every 6 hours as needed for Wheezing/Shortness of Breath. Take as directed * albuterol 2.5 mg /3 mL (0.083 %) nebulizer solution Commonly known as: PROVENTIL Use 3 mL via nebulizer every 6 hours as needed for Wheezing/Shortness of Breath. Inhale over 5-15 minutes apixaban 5 mg tab(s) Commonly known as: ELIQUIS famotidine 40 mg tablet Commonly known as: PEPCID mometasone-formoterol 200-5 mcg/actuation inhaler Commonly known as: DULERA Inhale 2 Puffs as instructed two times a day. pantoprazole DR 40 mg tablet Commonly known as: PROTONIX * This list has 2 medication(s) that are the same as other medications prescribed for you. Read the directions carefully, and ask your doctor or other care provider to review them with you. STOP taking these medications amLODIPine 5 mg tablet Commonly known as: NORVASC EPINEPHrine 0.3 mg/0.3 mL auto-injector Commonly known as: EPIPEN Nebulizer and Compressor For Neb Nebulizers tamsulosin 0.4 mg Commonly known as: FLOMAX Future Appointments: Follow Up with PCP: No primary care provider on file. Discharge Management: I personally spent less than 30 minutes involved in the discharge management of this patient. SIGNATURE: Zainab Croft MD DATE: September 14, 2023 TIME: 7:36 PM [facility] CONSULT PROGon 08-18-2023 CONSULT PROG HNO ID: [id number] Author: HELEN EDWARDS APRN.[employer] Service: Gastroenterology Author Type: Nurse Practitioner Type: Consult Progress Note Filed: 08/18/2023 13:50 Note Text: Hoping to go home Some abdominal discomfort still, but no diarrhea Nausea yesterday, but none today, and tolerating diet Avss Abd soft, tender to palpation in lower quadrants, R>L Labs reviewed; unremarkable CT abd/pelvis wo IV contrast 08/15: LEFT ovarian cyst measuring about 3 cm x 3.8 cm x 2.8 cm. GI: No dilation. No wall thickening. Appendix is not visualized. Stable metallic density in the RIGHT lower quadrant, better demonstrated on the comparison KUB from 06/06/2023. IMPRESSION: Abdominal pain/diarrhea: acute diarrhea in pt with hx IBS -- no diarrhea now -- tolerating diet -- ok for discharge from GI -- discussed with pt: sx's likely due to IBS; will arrange for f/up with office to discuss chronic complaints, IBS Hx hepatic steatosis/elevated LFT s: saw Dr Miranda 2020 Most recent GI OP visit was with Dr Bai ( system). Appears to have had colonoscopy in April 2023. Will [address] contact information in her discharge instructions; she may f/up with either Dr Arita, or myself/Dr Miranda as she prefers. Helen Arvizuite, [place].[employer] August 18, 2023 1:49 PM [phone] [facility] NURSING PROGon 08-18-2023 NURSING PROG HNO ID: [id number] Author: ALVIN STAHL RN Service: ? Author Type: Registered Nurse Type: Nursing Progress Note Filed: 08/18/2023 15:25 Note Text: Other: Daily note 0900 Patient is alert sitting up in bed, denies need for pain medication or lidocaine patch, breathing has improved per patient since she had procedure done on . Still has some stomach upset this morning, denies need for medication, patient is really wanting to go home today. 1525 Patient is being discharged home this afternoon. IV has been removed. Discharge instructions reviewed with patient, denies any questions at this time. [facility] NURSING PROG HNO ID: [id number] Author: MIGUEL DIAZ RN Service: Nursing Author Type: Registered Nurse Type: Nursing Progress Note Filed: 08/18/2023 05:48 Note Text: Daily Note: Report completed. Patient is resting comfortably with call light in reach. 0548 Paged out, patient is having persistent nausea. Got prn zofran - can she have anything else? Thanks [facility] CBC panel Auto (Bld)on 08-17 Erythrocyte distribution width (RBC) [Ratio] 13.0 % Normal 11.5-15.0 [facility] Comment on above: Order Comment: Renetta la Type: BLOOD SPECIMEN Ordering Facility: [facility] Address: [address] [place] [address] Performed By: #### P TTAC #### [facility] CLIA [id number] [address] [place] [address] [place] Hematocrit (Bld) [Volume fraction] 38.8 % Normal 36.0-46.0 [facility] Comment on above: Order Comment: Renetta la Type: BLOOD SPECIMEN Ordering Facility: [facility] Address: [address] [place] [address] Performed By: #### P TTAC #### [facility] CLIA [id number] [address] [place] [address] [place] Hemoglobin (Bld) [Mass/Vol] 13.6 g/dL Normal 11.5-15.5 [facility] Comment on above: Order Comment: Speci men Type: BLOOD SPECIMEN Ordering Facility: [facility] Address: [address] [place] [address] Performed By: #### P TTAC #### [facility] CLIA [id number] [address] [place] [address] [place] MCH (RBC) [Entitic mass] 31.3 pg Normal 26.0-34.0 [facility] Comment on above: Order Comment: Speci men Type: BLOOD SPECIMEN Ordering Facility: [facility] Address: [address] [place] [address] Performed By: #### P TTAC #### [facility] CLIA [id number] [address] [place] [address] [place] MCHC (RBC) [Mass/Vol] 35.1 g/dL Normal 30.5-36.0 [facility] Comment on above: Order Comment: Speci men Type: BLOOD SPECIMEN Ordering Facility: [facility] Address: [address] [place] [address] Performed By: #### P TTAC #### [facility] [place] [id number] [address] [place] [address] [place] MCV (RBC) [Entitic vol] 89.2 fL Normal 80.0-100.0 [facility] Comment on above: Order Comment: Speci men Type: BLOOD SPECIMEN Ordering Facility: [facility] Address: [address] [place] [address] Performed By: #### P TTAC #### [facility] CLIA [id number] [address] [place] [address] [place] Nucleated RBC (Bld) [#/Vol] 10*3/uL Normal <0.01 [facility] Comment on above: Order Comment: Speci men Type: BLOOD SPECIMEN Ordering Facility: [facility] Address: [address] [place] [address] Performed By: #### P TTAC #### [facility] CLIA [id number] [address] [place] [address] [place] Platelet mean volume (Bld) [Entitic vol] 8.5 fL Low 9.0-12.7 [facility] Comment on above: Order Comment: Speci men Type: BLOOD SPECIMEN Ordering Facility: [facility] Address: [address] [place] [address] Performed By: #### P TTAC #### [facility] CLIA [id number] [address] [place] [address] [place] Platelets (Bld) [#/Vol] 286 10*3/uL Normal 150-400 [facility] Comment on above: Order Comment: Speci men Type: BLOOD SPECIMEN Ordering Facility: [facility] Address: [address] [place] [address] Performed By: #### P TTAC #### [facility] CLIA [id number] [address] [place] [address] [place] RBC (Bld) [#/Vol] 4.35 10*6/uL Normal 3.90-5.20 [facility] Comment on above: Order Comment: Speci men Type: BLOOD SPECIMEN Ordering Facility: [facility] Address: [address] [place] [address] Performed By: #### P TTAC #### [facility] CLIA [id number] [address] [place] [address] [place] WBC (Bld) [#/Vol] 9.64 10*3/uL Normal 3.70-11.00 [facility] Comment on above: Order Comment: Speci men Type: BLOOD SPECIMEN Ordering Facility: [facility] Address: [address] [place] [address] Performed By: #### P TTAC #### [facility] CLIA [id number] [address] [place] [address] [place] CONSULTon 08-17-2023 CONSULT HNO ID: [id number] Author: BRYAN CARR MD Service: Gastroenterology Author Type: Physician Type: Consults Filed: 08/17/2023 17:19 Note Text: INITIAL CONSULT GASTROENTEROLOGY SERVICE DATE: 08/17/2023 SERVICE TIME: 1530 Consulting Service: Gastroenterology Opinion/advice regarding: Abdominal pain, diarrhea Subjective HPI: This is a 47 year old female with PE on Eliquis who was admitted 08/14 for foreign body in her lung now s/p bronchoscopy with foreign body removal. GI was consulted for abdominal pain and diarrhea. She notes some lower abdominal discomfort and bloating, accompanied by watery diarrhea that is worsened with PO intake. No bloody stool. No nausea or vomiting. She has a history of IBS. CT a/p on 08/15/2023 showed: 1. No hydroureteronephrosis. Previous RIGHT renal stones or likely obscured by the excreting intravenous contrast, which also opacifies the decompressed urinary bladder. 2. Uterus is absent, probable LEFT ovarian cyst. If symptoms pertain to this region, consider follow-up with ultrasound. 3. Redemonstration of small metallic density in the RIGHT lateral subsegmental bronchus to the posterior segment of the RIGHT lower lobe. 4. No evidence of an obstructive or inflammatory bowel process. PAST MEDICAL HISTORY Diagnosis Date Bipolar I disorder, most recent episode (or current) unspecified Calculus of bile duct without mention of cholecystitis, with obstruction Irritable bowel syndrome Kidney stone Known health problems: none 04/04/2021 Other and unspecified ovarian cyst Other cholecystitis Seasonal allergies Temporomandibular joint disorders, unspecified Unspecified asthma(493.90) PAST SURGICAL HISTORY Procedure Laterality Date ADENOIDECTOMY PRIMARY Adenoidectomy COLONOSCOPY FLX DX W/COLLJ SPEC WHEN PFRMD 04/03/2012 pt discomfort, normal to transverse colon - ordered BE EGD TRANSORAL BIOPSY SINGLE/MULTIPLE 04/03/2012 mild gastritis HYSTERECTOMY HX 2017 LAPAROSCOPY SURG CHOLECYSTECTOMY 1999 Cholecystectomy, lap LIG/TRNSXJ FLP TUBE ABDL/VAG APPR UNI/BI 1998 PAST SURGICAL HISTORY OF 2016 ureteral stent placed REMOVAL OF OVARY/TUBE(S) 2022 RSO, LS SLING 2022 TONSILLECTOMY PRIMARY/SECONDARY Tonsillectomy FAMILY HISTORY Problem Relation Age of Onset Hypertension Mother Breast Cancer Paternal Grandmother lung GI Paternal Grandfather Diabetes Maternal Grandmother from lung ca Diabetes Maternal Grandfather from unk cause Colon Cancer Maternal Uncle age 43 other (POTS) Sister other (Lupus) Other niece other (lupus) Other Anesthesia Problems No Family History Colon Polyps No Family History Social History Tobacco Use Smoking status: Never Smokeless tobacco: Never Vaping Use Vaping Use: Never used Substance Use Topics Alcohol use: Yes Comment: very rare- maybe 2x/ year Drug use: No MEDICATIONS: Prior to Admission Medications: amLODIPine (NORVASC) 5 mg tabletTake 5 mg by mouth every 24 hours.Disp: Rfl: apixaban (ELIQUIS) 5 mg tab(s)Take 5 mg by mouth two times a day.Disp: Rfl: carvedilol (COREG) 3.125 mg tabletTake 1 tablet by mouth two times a day with meals.Disp: Rfl: (Patient taking differently: Take 6.25 mg by mouth two times a day with meals.) pantoprazole DR (PROTONIX) 40 mg tabletTake 40 mg by mouth once daily.Disp: Rfl: famotidine (PEPCID) 40 mg tabletTake 40 mg by mouth daily at bedtime.Disp: Rfl: albuterol (PROVENTIL) 2.5 mg /3 mL (0.083 %) nebulizer solutionUse 3 mL via nebulizer every 6 hours as needed for Wheezing/Shortness of Breath. Inhale over 5-15 minutesDisp: 100 VialRfl: 5 albuterol HFA (PROAIR HFA) 90 mcg/actuation inhaler2 Puffs every 6 hours as needed for Wheezing/Shortness of Breath. Take as directedDisp: 3 InhalerRfl: 0 Nebulizer and Compressor For NebDispense one nebulizer with lifetime suppliesDisp: 1 EachRfl: 0 NebulizersLifetime suppliesDisp: 1 EachRfl: 0 tamsulosin (FLOMAX) 0.4 mgTake 1 capsule by mouth once daily. 30 minutes after the same meal each day.Disp: 30 capsuleRfl: 0 mometasone-formoterol (DULERA) 200-5 mcg/actuation inhalerInhale 2 Puffs as instructed two times a day.Disp: Rfl: EPINEPHrine (EPIPEN) 0.3 mg/0.3 mL auto-injectorUse as directed for bee stingDisp: 2 EachRfl: 1 Current Facility-Administered Medications Medication Dose Route Frequency carvedilol 3.125 mg tab(s) (COREG) 3.125 mg ORAL BID w MEALS amLODIPine 5 mg tab(s) (NORVASC) 5 mg ORAL DAILY NaCl 0.9% iv flush bag 20 mL INTRAVENOUS PRN ondansetron 4 mg tab(s) (ZOFRAN) 4 mg ORAL q 6 H PRN Or ondansetron (PF) 4 mg injection (ZOFRAN) 4 mg INTRAVENOUS q 6 H PRN NaCl 0.9% iv flush bag 20 mL INTRAVENOUS PRN pantoprazole DR 40 mg tab(s) (PROTONIX) 40 mg ORAL DAILY (6 AM) famotidine 40 mg tab(s) (PEPCID) 40 mg ORAL AT BEDTIME mometasone-formoterol 100-5 mcg/actuation 2 Puff inhaler (DULERA) 2 Puff INHALATION BID guaiFENesin-dextrometh orphan 100-10 mg/5 m (more content not included)... Normal [facility] Comprehensive metabolic 2000 panelon 08-17-2023 Albumin [Mass/Vol] 4.1 g/dL Normal 3.9-4.9 [facility] Comment on above: Order Comment: Speci men Type: BLOOD SPECIMENOrdering Facility: [facility] Address: [address] [place] [address] Performed By: #### 2 4323-8 ####[facility] [id number] [place] [address] [place] ALP [Catalytic activity/Vol] 81 U/L Normal 34-123 [facility] Comment on above: Order Comment: Speci men Type: BLOOD SPECIMENOrdering Facility: [facility] Address: [address] [place] [address] Performed By: #### 2 4323-8 ####[facility] [id number] [place] [address] [place] ALT [Catalytic activity/Vol] 17 U/L Normal 7-38 [facility] Comment on above: Order Comment: Speci men Type: BLOOD SPECIMENOrdering Facility: [facility] Address: [address] [place] [address] Performed By: #### 2 4323-8 ####[facility] [id number] [place] [address] [place] Anion gap [Moles/Vol] 12 mmol/L Normal 9-18 [facility] Comment on above: Order Comment: Speci men Type: BLOOD SPECIMENOrdering Facility: [facility] Address: [address] [place] [address] Performed By: #### 2 4323-8 ####[facility] [id number] [place] [address] [place] AST [Catalytic activity/Vol] 14 U/L Normal 13-35 [facility] Comment on above: Order Comment: Speci men Type: BLOOD SPECIMENOrdering Facility: [facility] Address: [address] [place] [address] Performed By: #### 2 4323-8 ####[facility] [id number] [place] [address] [place] Bilirubin [Mass/Vol] 0.3 mg/dL Normal 0.2-1.3 [facility] Comment on above: Order Comment: Speci men Type: BLOOD SPECIMENOrdering Facility: [facility] Address: [address] [place] [address] Performed By: #### 2 4323-8 ####[facility] [id number] [place] [address] [place] Calcium [Mass/Vol] 9.0 mg/dL Normal 8.5-10.2 [facility] Comment on above: Order Comment: Speci men Type: BLOOD SPECIMENOrdering Facility: [facility] Address: [address] [place] [address] Performed By: #### 2 4323-8 ####[facility] [id number] [place] [address] [place] Chloride [Moles/Vol] 106 mmol/L High 97-105 [facility] Comment on above: Order Comment: Speci men Type: BLOOD SPECIMENOrdering Facility: [facility] Address: [address] [place] [address] Performed By: #### 2 4323-8 ####[facility] [id number] [place] [address] [place] CO2 [Moles/Vol] 19 mmol/L Low 22-30 [facility] Comment on above: Order Comment: Speci men Type: BLOOD SPECIMENOrdering Facility: [facility] Address: [address] [place] [address] Performed By: #### 2 4323-8 ####[facility] [id number] [place] [address] [place] Creatinine [Mass/Vol] 0.96 mg/dL Normal 0.58-0.96 [facility] Comment on above: Order Comment: Maikoli men Type: BLOOD SPECIMENOrdering Facility: [facility] Address: [address] [place] [address] Performed By: #### 2 4323-8 ####[facility] [id number] [place] [address] [place] Creatinine and Glomerular filtration rate.predicted panel (S/P/Bld) 74 mL/min/1.73m??? Normal >=60 [facility] Comment on above: Order Comment: Speci abhinav Type: BLOOD SPECIMENOrdering Facility: [facility] Address: [address] [place] [address] Result Comment: [facility] Glomerular Filtration Rate (eGFR) is calculated using the 2020 CKD-EPI creatinine equation. This equation utilizes serum creatinine, sex, and age as parameters. The creatinine assay has traceable calibration to isotope dilution-mass spectrometry. Refer to KDIGO guidelines for clinical interpretation. In patients with unstable renal function, e.g. those with acute kidney injury, the eGFR may not accurately reflect actual GFR. Performed By: #### 2 4323-8 ####[facility] [id number] [place] [address] [place] Glucose [Mass/Vol] 119 mg/dL High 74-99 [facility] Comment on above: Order Comment: Maikoli men Type: BLOOD SPECIMENOrdering Facility: [facility] Address: [address] [place], [place] [address] Result Comment: The [place] [employer] (ADA) provides guidance for cutoff values for fasting glucose and random glucose. The ADA defines fasting as no caloric intake for at least 8 hours. Fasting plasma glucose results between 100 to 125 mg/dL indicate increased risk for diabetes (prediabetes). Fasting plasma glucose results greater than or equal to 126 mg/dL meet the criteria for diagnosis of diabetes. In the absence of unequivocal hyperglycemia, results should be confirmed by repeat testing. In a patient with classic symptoms of hyperglycemia or hyperglycemic crisis, random plasma glucose results greater than or equal to 200 mg/dL meet the criteria for diagnosis of diabetes. Reference: Standards of Medical Care in Diabetes 2016, [place] [employer]. Diabetes Care. 2016.39(Suppl 1). Performed By: #### 2 4323-8 ####[facility] [id number] [place] [address] [place] Potassium [Moles/Vol] 4.1 mmol/L Normal 3.7-5.1 [facility] Comment on above: Order Comment: Speci men Type: BLOOD SPECIMENOrdering Facility: [facility] Address: [address] [place] [address] Performed By: #### 2 4323-8 ####[facility] [id number] [place] [address] [place] Protein [Mass/Vol] 7.2 g/dL Normal 6.3-8.0 [facility] Comment on above: Order Comment: Speci men Type: BLOOD SPECIMENOrdering Facility: [facility] Address: [address] [place] [address] Performed By: #### 2 4323-8 ####[facility] [id number] [place] [address] [place] Sodium [Moles/Vol] 137 mmol/L Normal 136-144 [facility] Comment on above: Order Comment: Speci men Type: BLOOD SPECIMENOrdering Facility: [facility] Address: [address] [place] [address] Performed By: #### 2 4323-8 ####[facility] [id number] [place] [address] [place] Urea nitrogen [Mass/Vol] 15 mg/dL Normal 7-21 [facility] Comment on above: Order Comment: Maikoli abhinav Type: BLOOD SPECIMENOrdering Facility: [facility] Address: [address] [place] [address] Performed By: #### 2 4323-8 ####[facility]ORATORYCLIA [id number] [place] [id number] [place] NURSING PROGon 08-17-2023 NURSING PROG HNO ID: [id number] Author: CRICKET LAU RN Service: Nursing Author Type: Registered Nurse Type: Nursing Progress Note Filed: 08/17/2023 20:20 Note Text: Other: 0718;Report received from RN. Pt resting in bed with call light within reach. No complaints or needs. Pt environment checked. Pt heparin checked and stopped for an hour due to new PTT result will restart in one hour following Aug. 0921: Pt medicated safely per Aug. Pt assessed see NPR. 1118: pt medicated safely per Aug. Due to right flank pain and head ache. 1236: pt medicated safely per Aug. Due to pain stated that pain meds ordered not helping. Will reach out to Dr for new med order. 1820: Verbal from Dr Croft to stop heparin drip and restart eliquis 5mg twice a day. Normal [facility] PTT, ANTICOAGULANT THERAPYon 08-17-2023 aPTT Coag (PPP) [Time] 68.0 s High 23.0-32.4 [facility] Comment on above: Order Comment: Speci men Type: BLOOD SPECIMEN [facility] Address: [address] [place] [address] Performed By: #### 5 8410-2 #### [facility] CLIA [id number] [address] [place] aPTT Coag (PPP) [Time] 100.8 s High 23.0-32.4 [facility] Comment on above: Order Comment: Speci men Type: BLOOD SPECIMENOrdering Facility: [facility] Address: [address] [place] [id number] Performed By: #### P TTAC ####[facility]ORYCLIA [id number] [place] [id number] [place] aPTT Coag (PPP) [Time] 78.0 s High 23.0-32.4 [facility] Comment on above: Order Comment: Speci men Type: BLOOD SPECIMENOrdering Facility: [facility] Address: [address] [place] [address] Performed By: #### P TTAC ####[facility]ORYCLIA [id number] [place] [address] [place] aPTT PPPon 08-17-2023 aPTT Coag (PPP) [Time] 83.7 s High 23.0-32.4 [facility] Comment on above: Order Comment: Speci men Type: BLOOD SPECIMEN [facility] Address: [address] [place] [address] Performed By: #### 5 8410-2 #### [facility] CLIA [id number] [address] [place] [address] [place] ANES POSTPROC EVALon 024 ANES POSTPROC EVAL HNO ID: [id number] Author: CHITO SUTTON MD Service: ? 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 PACU/ICU Patient Condition: stable. Anticipated Disposition: phase 2 then home. Neurological Status: aware and responsive. Pulmonary Status: breathing comfortably on supplemental oxygen Airway Control: returned to baseline unsupported. Cardiovascular Status: stable. Pain Management: clinically adequate - multimodal analgesia pain management approach Postoperative Hydration: acceptable. Intraoperative Events: no significant anesthesia events Post Operative Nausea/Vomiting Status: no significant post operative nausea or vomiting Recommendation: continue current plan of care. Anesthesia Observations No Documentation SIGNATURE: Chito Sutton MD PATIENT NAME: Damari Rios DATE: August 16, 2023 TIME: 4:40 PM CSN: [id number] Normal [facility] ANES PRE-OPon 08-16-2023 ANES PRE-OP HNO ID: [id number] Author: CHITO SUTTON MD Service: ? Author Type: Anesthesiologist Type: Anesthesia Preprocedure Evaluation Filed: 08/16/2023 14:23 Note Text: ANESTHESIOLOGY DAY OF SURGERY NOTE : 1975 Procedure Information Date/Time: 08/16/23 1330 Procedure: BRONCHOSCOPY FLEXIBLE ADULT (Bronchus) - Tier 2 Therapeutic- FB Removal (RLL) Heparin [facility] [phone] (PTP) [id number] Location: [place] [address] / [place] [address] Surgeons: Mynor Lynn MD Estimated body mass index is 27.81 kg/m? as calculated from the following: Height as of this encounter: 162.6 cm (5' 4 ). Weight as of this encounter: 73.5 kg (162 lb). Most recent hematocrit and potassium results: Hematocrit 40.1 08/16/2023 Potassium 4.0 08/15/2023 Relevant Problems CARDIO (+) Hypertension (+) Other pulmonary embolism without acute cor pulmonale (HCC) -RENAL (+) Renal calculus, right NEURO-PSYCH (+) History of pulmonary embolism PULMONARY (+) Asthma (+) Asthma in adult (+) Dyspnea (+) Moderate persistent asthma with exacerbation I - PHYSICAL EVALUATION AIRWAY Patient intubated: No. Tracheostomy tube not present Mallampati: II. TM distance: <3 FB. Neck ROM: full ROM without neurological symptoms. Mouth opening: adequate. Short neck: no. Thick neck: no II - ANESTHESIA PLAN ASA Score: 3 Anesthetic Plan: general Airway type: ETT NPO Status: adequate Beta Robby Monitoring Plan Monitoring plan: standard ASA. Post Procedure Analgesic Plan Postoperative analgesic plan: multimodal analgesia. Informed Consent Anesthetic risks, benefits, alternatives, personnel and consent discussed: yes. Patient / Responsible [employer] agrees to proceed: yes Patient / Surrogate agrees to blood products: Yes Significant changes in the patient condition since the History and Physical, not otherwise documented in primary service progress note: no. Potential Anesthesia issues that may suggest increased risk of complications or contraindication to planned procedure: other. Vitals Value Taken Time BP Pulse 68 08/16/23 1106 Resp 18 08/16/23 1106 Temp 36.4 ?C (97.5 ?F) 08/16/23 1106 SpO2 99 % 08/16/23 1106 Facility-Administered Medications as of 08/16/2023 Medication Dose Route Frequency - [Held on Transfer - Suspended Admission] ibuprofen 800 mg tab(s) (MOTRIN) 800 mg ORAL q 8 H PRN - [Held on Transfer - Suspended Admission] acetaminophen 650 mg tab(s) (TYLENOL) 650 mg ORAL q 6 H PRN - [Held on Transfer - Suspended Admission] mometasone-formoterol 100-5 mcg/actuation 2 Puff inhaler (DULERA) 2 Puff INHALATION BID - [Held on Transfer - Suspended Admission] guaiFENesin-dextrometh orphan 100-10 mg/5 mL 10 mL oral liquid (ROBITUSSIN DM) 10 mL ORAL q 4 H PRN - [] heparin iv infusion 25,000 units in NaCl 0.45% 250 mL STANDARD NOMOGRAM 0-3,000 Units/hr INTRAVENOUS CONTINUOUS And - [Held on Transfer - Suspended Admission] heparin RATE CHANGE bolus 1,000-10,000 Units for subtherapeutic PTTAC results 1,000-10,000 Units INTRAVENOUS PRN - [COMPLETED] heparin nomogram INITIAL BOLUS 80 units/kg/dose INTRAVENOUS ONCE (heparin bolus) - [Held on Transfer - Suspended Admission] methocarbamol 500 mg tab(s) (ROBAXIN) 500 mg ORAL TID PRN - [Held on Transfer - Suspended Admission] albuterol 2.5 mg /3 mL (0.083 %) 2.5 mg (PROVENTIL) 2.5 mg INHALATION q 4 H while awake - [Held on Transfer - Suspended Admission] carvedilol 3.125 mg tab(s) (COREG) 3.125 mg ORAL BID w MEALS - [Held on Transfer - Suspended Admission] amLODIPine 5 mg tab(s) (NORVASC) 5 mg ORAL DAILY - [Held on Transfer - Suspended Admission] NaCl 0.9% iv flush bag 20 mL INTRAVENOUS PRN - [Held on Transfer - Suspended Admission] ondansetron 4 mg tab(s) (ZOFRAN) 4 mg ORAL q 6 H PRN Or - [Held on Transfer - Suspended Admission] ondansetron (PF) 4 mg injection (ZOFRAN) 4 mg INTRAVENOUS q 6 H PRN - [Held on Transfer - Suspended Admission] NaCl 0.9% iv flush bag 20 mL INTRAVENOUS PRN - [COMPLETED] potassium chloride iv piggyback 20 mEq/100 mL 20 mEq INTRAVENOUS ONCE - [Held on Transfer - Suspended Admission] pantoprazole DR 40 mg tab(s) (PROTONIX) 40 mg ORAL DAILY (6 AM) - [Held on Transfer - Suspended Admission] famotidine 40 mg tab(s) (PEPCID) 40 mg ORAL AT BEDTIME - [COMPLETED] enoxaparin 70 mg injection (LOVENOX) 1 mg/kg/dose SUBCUTANEOUS q 12 HR Outpatient Medications as of 08/16/2023 Medication Sig - amLODIPine (NORVASC) 5 mg tablet Take 5 mg by mouth every 24 hours. - apixaban (ELIQUIS) 5 mg tab(s) Take 5 mg by mouth two times a day. - carvedilol (COREG) 3.125 mg tablet Take 1 tablet by mouth two times a day with meals. (Patient taking differently: Take 6.25 mg by mouth two times a day with meals.) - Nebulizer and Compressor For Neb Dispense one nebulizer with lifetime supplies - Nebulizers Lifetime supplies - tamsulosin (FLOMAX) 0.4 mg Take 1 capsule by mouth once daily. 30 minutes (more content not included)... Normal [facility] CBC panel Auto (Bld)on 08-16 Erythrocyte distribution width (RBC) [Ratio] 13.2 % Normal 11.5-15.0 [facility] Comment on above: Order Comment: Speci men Type: BLOOD SPECIMEN [facility] Address: [address] [place] [address] Performed By: #### P TTAC #### [facility] CLIA [id number] [address] [place] [address] [place] Hematocrit (Bld) [Volume fraction] 40.1 % Normal 36.0-46.0 [facility] Comment on above: Order Comment: Speci men Type: BLOOD SPECIMEN [facility] Address: [address] [place] [address] Performed By: #### P TTAC #### [facility] CLIA [id number] [address] [place] [address] [place] Hemoglobin (Bld) [Mass/Vol] 13.6 g/dL Normal 11.5-15.5 [facility] Comment on above: Order Comment: Speci men Type: BLOOD SPECIMEN [facility] Address: [address] [place] [address] Performed By: #### P TTAC #### [facility] CLIA [id number] [address] [place] [address] [place] MCH (RBC) [Entitic mass] 30.6 pg Normal 26.0-34.0 [facility] Comment on above: Order Comment: Speci men Type: BLOOD SPECIMEN [facility] Address: [address] [place] [address] Performed By: #### P TTAC #### [facility] CLIA [id number] [address] [place] [address] [place] MCHC (RBC) [Mass/Vol] 33.9 g/dL Normal 30.5-36.0 [facility] Comment on above: Order Comment: Speci men Type: BLOOD SPECIMEN [facility] Address: [address] [place] [address] Performed By: #### P TTAC #### [facility] CLIA [id number] [address] [place] [address] [place] MCV (RBC) [Entitic vol] 90.3 fL Normal 80.0-100.0 [facility] Comment on above: Order Comment: Speci men Type: BLOOD SPECIMEN [facility] Address: [address] [place] [address] Performed By: #### P TTAC #### [facility] CLIA [id number] [address] [place] [address] [place] Nucleated RBC (Bld) [#/Vol] 10*3/uL Normal <0.01 [facility] Comment on above: Order Comment: Speci men Type: BLOOD SPECIMEN [facility] Address: [address] [place] [address] Performed By: #### P TTAC #### [facility] CLIA [id number] [address] [place] [address] [place] Platelet mean volume (Bld) [Entitic vol] 8.9 fL Low 9.0-12.7 [facility] Comment on above: Order Comment: Speci men Type: BLOOD SPECIMEN [facility] Address: [address] [place] [address] Performed By: #### P TTAC #### [facility] CLIA [id number] [address] [place] [address] [place] Platelets (Bld) [#/Vol] 276 10*3/uL Normal 150-400 [facility] Comment on above: Order Comment: Speci men Type: BLOOD SPECIMEN [facility] Address: [address] [place] [address] Performed By: #### P TTAC #### [facility] CLIA [id number] [address] [place] [address] [place] RBC (Bld) [#/Vol] 4.44 10*6/uL Normal 3.90-5.20 [facility] Comment on above: Order Comment: Speci men Type: BLOOD SPECIMEN [facility] Address: [address] [place] [address] Performed By: #### P TTAC #### [facility] CLIA [id number] [address] [place] [address] [place] WBC (Bld) [#/Vol] 5.37 10*3/uL Normal 3.70-11.00 [facility] Comment on above: Order Comment: Speci men Type: BLOOD SPECIMEN [facility] Address: [facility] [place] [address] Performed By: #### P TTAC #### [facility] CLIA [id number] [address] [place] [id number] [facility] [place] CONSULT PROGon 08-16-2023 CONSULT PROG HNO ID: [id number] Author: ROBY HARRISON MD Service: Vascular Medicine Author Type: Physician Type: Consult Progress Note Filed: 08/16/2023 09:50 Note Text: CONSULT PROGRESS NOTE: VASCULAR MEDICINE SERVICE PATIENT NAME: Damari Rios SERVICE DATE: 08/16/2023 SERVICE TIME: 9:47 AM INTERVAL EVENTS: Feeling okay. She is anxious about the procedure today. Still has the chest pain that brought her into the hospital. Denies shortness of breath at rest. Assessment: Ms. Rios is a 47 yo woman with hx provoked PE on 06/01/23 in setting of right salpingo-oophorectomy and urethral sling procedure who presents with foreign body in lung on CT scan. Have reviewed scan with radiology and fortunately it shows resolution of previously visualized PE. Plan for foreign body retrieval at [facility] today. Plan: -Will remain on heparin infusion in the periprocedural period. Thereafter, she can resume Eliquis 5 mg twice daily once cleared by pulmonary. -Duration of anticoagulation is 6 months for this provoked event (06/01/23-12/01/23). -Already scheduled to follow-up in my vascular medicine clinic on 09/03/2023. Counseling: Discussed test results. Discussed plans. Thank you for this consult. Will sign off now. Do not hesitate to contact me if further questions arise. MEDICATIONS: Current Facility-Administered Medications Medication Dose Route Frequency carvedilol 3.125 mg tab(s) (COREG) 3.125 mg ORAL BID w MEALS amLODIPine 5 mg tab(s) (NORVASC) 5 mg ORAL DAILY NaCl 0.9% iv flush bag 20 mL INTRAVENOUS PRN ondansetron 4 mg tab(s) (ZOFRAN) 4 mg ORAL q 6 H PRN Or ondansetron (PF) 4 mg injection (ZOFRAN) 4 mg INTRAVENOUS q 6 H PRN NaCl 0.9% iv flush bag 20 mL INTRAVENOUS PRN pantoprazole DR 40 mg tab(s) (PROTONIX) 40 mg ORAL DAILY (6 AM) famotidine 40 mg tab(s) (PEPCID) 40 mg ORAL AT BEDTIME mometasone-formoterol 100-5 mcg/actuation 2 Puff inhaler (DULERA) 2 Puff INHALATION BID guaiFENesin-dextrometh orphan 100-10 mg/5 mL 10 mL oral liquid (ROBITUSSIN DM) 10 mL ORAL q 4 H PRN heparin RATE CHANGE bolus 1,000-10,000 Units for subtherapeutic PTTAC results 1,000-10,000 Units INTRAVENOUS PRN methocarbamol 500 mg tab(s) (ROBAXIN) 500 mg ORAL TID PRN albuterol 2.5 mg /3 mL (0.083 %) 2.5 mg (PROVENTIL) 2.5 mg INHALATION q 4 H while awake ibuprofen 800 mg tab(s) (MOTRIN) 800 mg ORAL q 8 H PRN acetaminophen 650 mg tab(s) (TYLENOL) 650 mg ORAL q 6 H PRN PHYSICAL EXAM: Alert, conversant and comfortable. No acute distress. Mood appropriate. JVD: Not present at 90 degrees. Lungs: Clear to ausculation bilaterally. Cardiac: No gallop, click or rub. Abdomen: Normoactive bowel sounds, Nontender, non-distended. Vascular: No carotid bruits. Palpable pedal pulses Lower Extremity Edema: None Body mass index is 27.81 kg/m?. Last 4 Encounter Wt Readings: Date: Wt: 08/14/2023 73.5 kg (162 lb) 06/01/2023 73.5 kg (162 lb) 04/04/2021 91.4 kg (201 lb 9.6 oz) 08/19/2019 79.4 kg (175 lb) O2 Therapy: Room Air No data recorded Patient Vitals for the past 24 hrs: BP Temp Temp src Pulse Resp SpO2 02/15/24 0810 -- -- -- 60 -- -- 08/16/23 0800 -- -- -- 70 18 97 % 08/16/23 0759 152/78 36.3 ?C (97.3 ?F) Oral 60 18 98 % 08/15/23 2336 126/85 36.4 ?C (97.5 ?F) Oral 60 18 98 % 08/15/23 2048 143/87 36.4 ?C (97.5 ?F) Oral 71 18 98 % 08/15/232020 -- -- -- 68 -- -- 08/15/232014 -- -- -- 74 -- 94 % 08/15/23 1554 132/82 36.6 ?C (97.9 ?F) Oral 62 21 97 % 08/15/23 1147 125/90 36.4 ?C (97.5 ?F) Oral 72 20 97 % DATA: Diagnostic tests reviewed for today's visit: Reviewed Labs: Yes. Reviewed Imaging: Yes Reviewed VS: Yes. Reviewed Meds: Yes. Cholesterol, Total (mg/dL) Date Value 06/07/2023 203 HDL Cholesterol (mg/dL) Date Value 06/07/2023 52 LDL Cholesterol (mg/dL) Date Value 06/07/2023 120 LDL Chol, Lianne (mg/dL) Date Value 02/15/2012 108 Triglyceride (mg/dL) Date Value 06/07/2023 156 AST (U/L) Date Value 08/14/2023 20 05/24/2021 58 NT Pro BNP (pg/mL) Date Value 06/01/2023 131 03/17/2015 71 No results found for: DIGOXIN No results found for: GFR @B7LHTYFYO(HbA1C: 1)@ AST (U/L) Date Value 08/14/2023 20 05/24/2021 58 Recent Labs 08/16/23 0505 08/15/23 2330 08/15/23 1957 08/15/23 1736 08/15/23 1103 08/15/23 1103 08/15/23 0748 08/14/23202808/14/23 1625 WBC 5.37 -- -- -- -- 5.14 -- -- 6.01 HB 13.6 -- -- -- -- 14.5 -- -- 15.1 HCT 40.1 -- -- -- -- 43.3 -- -- 45.2 PLT 276 -- -- -- -- 260 -- -- 330 INR -- -- -- -- -- 1.0 -- -- -- APTT -- 40.2* >139.0* >139.0* < > 49.1* -- -- -- NA -- -- -- -- -- -- 139 137 137 K -- -- -- -- -- -- 4.0 3.6* -- CHLOR -- -- -- -- -- -- 105 103 101 CO2 -- -- -- -- -- -- 22 24 25 BUN -- -- -- -- -- -- 19 13 14 CREAT -- -- -- -- -- -- 0.94 0.96 0.91 GLUC -- -- -- -- -- -- 79 86 85 CA -- -- -- -- -- -- 8.8 8.8 8.8 MG -- -- -- -- -- -- -- -- 2.2 < > = values in th (more content not included)... Normal [facility] NURSING PROGon 08-16-2023 NURSING PROG HNO ID: [id number] Author: BÁRBARA POLANCO RN Service: ? Author Type: Registered Nurse Type: Nursing Progress Note Filed: 08/17/2023 06:10 Note Text: Other: 0 text page out for anticoag and diet orders 2200 Phlebotomy aware of PTT due 08/17 413 text page sent to HUSSEIN re pt's pain 0510 phlebotomy aware of 0430 PTT due. 0545 Phlebotomy states that they are short staffed and will be over to draw labs delaney. 0610 Phlebotomy on floor to draw labs [facility] PTT, ANTICOAGULANT THERAPYon 08-16-2023 aPTT Coag (PPP) [Time] 40.2 s High 23.0-32.4 [facility] Comment on above: Order Comment: Speci men Type: BLOOD SPECIMEN [facility] Address: [address] [place] [address] Performed By: #### P [facility] #### [facility] [id number] [address] [place] [address] OF [facility] SURGICAL PATHOLOGYon 024 CASE REPORT Normal [facility] Comment on above: Order Comment: Speci men Type: FOREIGN BODY SUBMITTED SPECIMENOrdering Facility: [facility] Address: [address] [place] [address] Result Comment: Surg ical Pathology Report Case: [id number] Authorizing Provider: Mynor Lynn MD Collected: 08/16/2023 03:49 PM Ordering Location: Admitting Received: 08/16/2023 10:07 PM Pathologist: Abby Devlin MD Specimen: FOREIGN BODY(S), RIGHT LOWER LUNG POST Performed By: #### S ####[facility] LABCLIA [id number] [address] CLINICAL HISTORY Normal [facility] Comment on above: Order Comment: Speci men Type: FOREIGN BODY SUBMITTED SPECIMENOrdering Facility: [facility] Address: [address] [place] [address] Result Comment: Pre- op diagnosis: Bronchiolar disease [J98.09] Performed By: #### S ####[facility] LABCLIA [id number] [address] OF [facility] FINAL DIAGNOSIS Normal [facility] Comment on above: Order Comment: Speci men Type: FOREIGN BODY SUBMITTED SPECIMENOrdering Facility: [facility] Address: [address] [place] [address] Result Comment: A. R ight lower lung, foreign body, removal: - T-shaped metal foreign body (gross examination only). AJP/JENIFER/mm/08/17/2023 Performed By: #### S ####[facility] LABCLIA [id number] [address] [place] FINAL PERFORMING LAB Normal [facility] Comment on above: Order Comment: Speci men Type: FOREIGN BODY SUBMITTED SPECIMENOrdering Facility: [facility] Address: [address] [place] [address] Result Comment: Diag nostic interpretation performed at [facility], [address] [place] [address] CLIA# [id number] Vehicle Body Builder: Brodie Strickland M.D. Performed By: #### S ####[facility] LABCLIA [id number] [address] GROSS DESCRIPTION Normal [facility] Comment on above: Order Comment: Speci men Type: FOREIGN BODY SUBMITTED SPECIMENOrdering Facility: [facility] Address: [address] [place] [address] Result Comment: A. F OREIGN BODY(S) Received in formalin, labeled right lower lung post is a T-shaped metal post measuring 1.0 x 0.2 x 0.2 cm. An inscription is not present. Soft tissue is not attached. No gross abnormalities are identified. The specimen is submitted for gross examination only and reviewed with Dr. Devlin. JENIFER/nesha/08/17/2023 Gross examination performed at [facility], [address] [place] [address] CLIA# [id number] Performed By: #### S ####[facility] LABCLIA [id number] [address] [place] ALLIED HEALTHon 08-15-2023 ALLIED HEALTH HNO ID: [id number] Author: CARLEY SCHWARTZ RT(R) Service: Radiology Author Type: Technologist Type: Allied Health Filed: 08/15/2023 03:58 Note Text: Radiology Service Progress Note PATIENT NAME: Damari Rios DATE OF SERVICE: August 15, 2023 TIME: 3:58 AM PATIENT IDENTITY VERIFICATION COMPLETED USING TWO (2) IDENTIFIERS: Name and Date of confirmed by identification band. FALL SCREENING: Has the patient had 2 falls in the last year or 1 fall with injury or currently using an Ambulatory Assistive Device (Walker, Cane, Wheelchair, Crutches, etc.)? Inpatient: Screened on floor PATIENT GENDER DATA: Female. status: : No status: NO. PATIENT RELEVANT IMPLANT DATA REVIEWED: Not Applicable PATIENT PRESENTS WITH AN IMPLANTABLE OR ATTACHED AUTO BRAKE TECHNICIAN: No RADIOLOGY DEPARTMENT: CT; Exam(s) Completed: Abdomen/Pelvis PERIPHERAL IV DATA: Not applicable SIGNED BY: RT iGuliano(R) August 15, 2023 3:58 AM Normal [facility] Basic metabolic 2000 panelon 08-15-2023 Anion gap [Moles/Vol] 12 mmol/L Normal 9-18 [facility] Comment on above: Order Comment: Speci men Type: BLOOD SPECIMENOrdering Facility: [facility] Address: [address] [place] [address] Performed By: #### 2 4321-2 ####[facility] [id number] [place] [address] [place] Calcium [Mass/Vol] 8.8 mg/dL Normal 8.5-10.2 [facility] Comment on above: Order Comment: Speci men Type: BLOOD SPECIMENOrdering Facility: [facility] Address: [address] [place] [address] Performed By: #### 2 4321-2 ####[facility] [id number] [place] [address] [place] Chloride [Moles/Vol] 105 mmol/L Normal 97-105 [facility] Comment on above: Order Comment: Speci men Type: BLOOD SPECIMENOrdering Facility: [facility] Address: [address] [place] [address] Performed By: #### 2 4321-2 ####[facility] [id number] [place] [id number] [place] CO2 [Moles/Vol] 22 mmol/L Normal 22-30 [facility] Comment on above: Order Comment: Speci men Type: BLOOD SPECIMENOrdering Facility: [facility] Address: [address] [place] [address] Performed By: #### 2 4321-2 ####[facility] LABORATORYCLIA [id number] [place] [id number] [place] Creatinine [Mass/Vol] 0.94 mg/dL Normal 0.58-0.96 [facility] Comment on above: Order Comment: Renetta la Type: BLOOD SPECIMENOrdering Facility: [facility] Address: [address] [place] [address] Performed By: #### 2 4321-2 ####[facility] LABORATORYIA [id number] [place] [address] [place] Creatinine and Glomerular filtration rate.predicted panel (S/P/Bld) 76 mL/min/1.73m??? Normal >=60 [facility] Comment on above: Order Comment: Renetta la Type: BLOOD SPECIMENOrdering Facility: [facility] Address: [address] [place] [address] Result Comment: [facility] Glomerular Filtration Rate (eGFR) is calculated using the 2020 CKD-EPI creatinine equation. This equation utilizes serum creatinine, sex, and age as parameters. The creatinine assay has traceable calibration to isotope dilution-mass spectrometry. Refer to KDIGO guidelines for clinical interpretation. In patients with unstable renal function, e.g. those with acute kidney injury, the eGFR may not accurately reflect actual GFR. Performed By: #### 2 4321-2 ####[facility] LABORATORYIA [id number] [place] [address] [place] Glucose [Mass/Vol] 79 mg/dL Normal 74-99 [facility] Comment on above: Order Comment: Renetta la Type: BLOOD SPECIMENOrdering Facility: [facility] Address: [address] [place] [address] Result Comment: The [place] Diabetes Association (ADA) provides guidance for cutoff values for fasting glucose and random glucose. The ADA defines fasting as no caloric intake for at least 8 hours. Fasting plasma glucose results between 100 to 125 mg/dL indicate increased risk for diabetes (prediabetes). Fasting plasma glucose results greater than or equal to 126 mg/dL meet the criteria for diagnosis of diabetes. In the absence of unequivocal hyperglycemia, results should be confirmed by repeat testing. In a patient with classic symptoms of hyperglycemia or hyperglycemic crisis, random plasma glucose results greater than or equal to 200 mg/dL meet the criteria for diagnosis of diabetes. Reference: Standards of Medical Care in Diabetes 2016, [place] [employer]. Diabetes Care. 2016.39(Suppl 1). Performed By: #### 2 4321-2 ####[facility]ATORYCLIA [id number] [place] [address] [place] Potassium [Moles/Vol] 4.0 mmol/L Normal 3.7-5.1 [facility] Comment on above: Order Comment: Speci abhinav Type: BLOOD SPECIMENOrdering Facility: [facility] Address: [address] [place] [address] Performed By: #### 2 4321-2 ####[facility]ATORYCLIA [id number] [place] [address] [place] Sodium [Moles/Vol] 139 mmol/L Normal 136-144 [facility] Comment on above: Order Comment: Speci abhinav Type: BLOOD SPECIMENOrdering Facility: [facility] Address: [address] [place] [address] Performed By: #### 2 4321-2 ####[facility]ATORYCLIA [id number] [place] [address] [place] Urea nitrogen [Mass/Vol] 19 mg/dL Normal 7-21 [facility] Comment on above: Order Comment: Renetta la Type: BLOOD SPECIMENOrdering Facility: [facility] Address: [address] [place] [address] Performed By: #### 2 4321-2 ####[facility]ATORYCLIA [id number] [place] [address] [place] CBC panel Auto (Bld)on 08-15 Erythrocyte distribution width (RBC) [Ratio] 13.2 % Normal 11.5-15.0 [facility] Comment on above: Order Comment: Renetta la Type: BLOOD SPECIMENOrdering Facility: [facility] Address: [address] [place] [address] Performed By: #### 5 8410-2 ####[facility]ATORYCLIA [id number] [place] [address] [place] Hematocrit (Bld) [Volume fraction] 43.3 % Normal 36.0-46.0 [facility] Comment on above: Order Comment: Speci men Type: BLOOD SPECIMENOrdering Facility: [facility] Address: [address] [place] [address] Performed By: #### 5 8410-2 ####[facility]ORATORYCLIA [id number] [place] [address] [place] Hemoglobin (Bld) [Mass/Vol] 14.5 g/dL Normal 11.5-15.5 [facility] Comment on above: Order Comment: Speci men Type: BLOOD SPECIMENOrdering Facility: [facility] Address: [address] [place] [address] Performed By: #### 5 8410-2 ####[facility] LABORATORYCLIA [id number] [address] [place] MCH (RBC) [Entitic mass] 30.6 pg Normal 26.0-34.0 [facility] Comment on above: Order Comment: Speci men Type: BLOOD SPECIMENOrdering Facility: [facility] Address: [address] [place] [address] Performed By: #### 5 8410-2 ####[facility] LABORATORYCLIA [id number] [place] [address] [place] MCHC (RBC) [Mass/Vol] 33.5 g/dL Normal 30.5-36.0 [facility] Comment on above: Order Comment: Speci men Type: BLOOD SPECIMENOrdering Facility: [facility] Address: [address] [place] [address] Performed By: #### 5 8410-2 ####[facility]ORATORYCLIA [id number] [address] [place] MCV (RBC) [Entitic vol] 91.4 fL Normal 80.0-100.0 [facility] Comment on above: Order Comment: Speci men Type: BLOOD SPECIMENOrdering Facility: [facility] Address: [address] [place] [address] Performed By: #### 5 8410-2 ####[facility]ATORYCLIA [id number] [place] [address] [place] Nucleated RBC (Bld) [#/Vol] 10*3/uL Normal <0.01 [facility] Comment on above: Order Comment: Speci men Type: BLOOD SPECIMENOrdering Facility: [facility] Address: [address] [place] [address] Performed By: #### 5 8410-2 ####[facility]ORATORYCLIA [id number] [place] [address] [place] Platelet mean volume (Bld) [Entitic vol] 8.4 fL Low 9.0-12.7 [facility] Comment on above: Order Comment: Speci men Type: BLOOD SPECIMENOrdering Facility: [facility] Address: [address] [place] [address] Performed By: #### 5 8410-2 ####[facility]ORATORYCLIA [id number] [place] [address] [place] Platelets (Bld) [#/Vol] 260 10*3/uL Normal 150-400 [facility] Comment on above: Order Comment: Speci men Type: BLOOD SPECIMENOrdering Facility: [facility] Address: [address] [place] [address] Performed By: #### 5 8410-2 ####[facility]ATORYCLIA [id number] [place] [address] [place] RBC (Bld) [#/Vol] 4.74 10*6/uL Normal 3.90-5.20 [facility] Comment on above: Order Comment: Speci men Type: BLOOD SPECIMENOrdering Facility: [facility] Address: [address] [place] [address] Performed By: #### 5 8410-2 ####[facility]ORATORYCLIA [id number] [place] [id number] [place] WBC (Bld) [#/Vol] 5.14 10*3/uL Normal 3.70-11.00 [facility] Comment on above: Order Comment: Speci men Type: BLOOD SPECIMENOrdering Facility: [facility] Address: [address] [place] [address] Performed By: #### 5 8410-2 ####[facility]ORATORYCLIA [id number] [place] [address] [place] CONSULTon 08-15-2023 CONSULT HNO ID: [id number] Author: ROBY HARRISON MD Service: Vascular Medicine Author Type: Physician Type: Consults Filed: 08/15/2023 11:29 Note Text: CONSULT NOTE: VASCULAR MEDICINE SERVICE PATIENT NAME: Damari Rios SERVICE DATE: 08/15/2023 SERVICE TIME: 11:19 AM Reason for consult: Chest pain HPI: Ms. Rios is a 47 yo woman with hx provoked PE on 06/01/23 in setting of right salpingo-oophorectomy and urethral sling procedure who presents with foreign body in lung on CT scan. Since dishcarged last month, she has been taking Eliquis 5mg twice daily as prescribed. Has not missed any doses. States that 1 week ago she noticed her lip ring was missing and then developed SOB with exertion and CP. She says that these symptoms have gotten worse in past 2 days which led her to come to ED. She was worried that she could have recurrence of PE. FH: Father had a DVT. SH: She denies ever smoking cigarettes. She does not drink alcohol. She does not use marijuana. Assessment: Ms. Rios is a 47 yo woman with hx provoked PE on 06/01/23 in setting of right salpingo-oophorectomy and urethral sling procedure who presents with foreign body in lung on CT scan. Have reviewed scan with radiology and fortunately it shows resolution of previously visualized PE. Plan: -Hold Eliquis for now. Last dose yesterday morning. Will start heparin infusion now as will need bronchoscopy for FB retrieval. -Will eventually plan to resume Eliquis after all procedures completed. Duration of anticoagulation is 6 months for this provoked event (06/01/23-12/01/23). Counseling: Discussed test results. Discussed plans. Thank you for this consult. We will continue to follow with you. MEDICATIONS: Current Facility-Administered Medications Medication Dose Route Frequency carvedilol 3.125 mg tab(s) (COREG) 3.125 mg ORAL BID w MEALS amLODIPine 5 mg tab(s) (NORVASC) 5 mg ORAL DAILY NaCl 0.9% iv flush bag 20 mL INTRAVENOUS PRN ondansetron 4 mg tab(s) (ZOFRAN) 4 mg ORAL q 6 H PRN Or ondansetron (PF) 4 mg injection (ZOFRAN) 4 mg INTRAVENOUS q 6 H PRN NaCl 0.9% iv flush bag 20 mL INTRAVENOUS PRN acetaminophen 650 mg tab(s) (TYLENOL) 650 mg ORAL q [address] 40 mg tab(s) (PROTONIX) 40 mg ORAL DAILY (6 AM) famotidine 40 mg tab(s) (PEPCID) 40 mg ORAL AT BEDTIME mometasone-formoterol 100-5 mcg/actuation 2 Puff inhaler (DULERA) 2 Puff INHALATION BID albuterol 2.5 mg /3 mL (0.083 %) 2.5 mg (PROVENTIL) 2.5 mg INHALATION q 4 H PRN guaiFENesin-dextrometh orphan 100-10 mg/5 mL 10 mL oral liquid (ROBITUSSIN DM) 10 mL ORAL q 4 H PRN heparin iv infusion 25,000 units in NaCl 0.45% 250 mL STANDARD NOMOGRAM 0-3,000 Units/hr INTRAVENOUS CONTINUOUS And heparin RATE CHANGE bolus 1,000-10,000 Units for subtherapeutic PTTAC results 1,000-10,000 Units INTRAVENOUS PRN heparin nomogram INITIAL BOLUS 80 units/kg/dose INTRAVENOUS ONCE (heparin bolus) Body mass index is 27.81 kg/m?. Last 4 Encounter Wt Readings: Date: Wt: 08/14/2023 73.5 kg (162 lb) 06/01/2023 73.5 kg (162 lb) 04/04/2021 91.4 kg (201 lb 9.6 oz) 08/19/2019 79.4 kg (175 lb) O2 Therapy: Room Air No data recorded Patient Vitals for the past 24 hrs: BP Temp Temp src Pulse Resp SpO2 Height Weight 08/15/23 0715 136/90 36.5 ?C (97.7 ?F) Oral 78 20 97 % -- -- 08/15/23 0355 124/76 36.3 ?C (97.3 ?F) Oral 66 20 92 % -- -- 08/15/23 0114 -- -- -- -- -- -- 162.6 cm (5' 4 ) -- 08/14/23 2330 150/83 36.4 ?C (97.5 ?F) Oral 60 22 97 % -- -- 08/14/23 2233 160/96 36.4 ?C (97.5 ?F) Oral 65 20 99 % -- -- 08/14/23 2130 -- -- -- 75 18 95 % -- -- 08/14/23 2031 173/96 -- -- 68 16 98 % -- -- 08/14/23 1314 187/99 36.6 ?C (97.8 ?F) Oral 73 18 96 % -- 73.5 kg (162 lb) PHYSICAL EXAM: Alert, conversant and comfortable. No acute distress. Mood appropriate. JVD: Not present at 90 degrees. Lungs: Clear to ausculation bilaterally. Cardiac: No gallop, click or rub. Abdomen: Normoactive bowel sounds, Nontender, non-distended. Vascular: No carotid bruits. Palpable pedal pulses Lower Extremity Edema: None DATA: Diagnostic tests reviewed for today's visit: Reviewed Labs: Yes. Reviewed Imaging: Yes Reviewed VS: Yes. Reviewed Meds: Yes. Cholesterol, Total (mg/dL) Date Value 06/07/2023 203 HDL Cholesterol (mg/dL) Date Value 06/07/2023 52 LDL Cholesterol (mg/dL) Date Value 06/07/2023 120 LDL Chol, [place] (mg/dL) Date Value 02/15/2012 108 Triglyceride (mg/dL) Date Value 06/07/2023 156 AST (U/L) Date Value 08/14/2023 20 05/24/2021 58 NT Pro BNP (pg/mL) Date Value 06/01/2023 131 03/17/2015 71 No results found for: DIGOXIN No results found for: GFR No results found for: HBA1C AST (U/L) Date Value 08/14/2023 20 05/24/2021 58 Recent Labs 08/15/23 1103 08/15/23 0748 08/14/23202808/14/23 1625 WBC 5.14 -- -- 6.01 HB 14.5 -- -- 15.1 HCT 43.3 -- -- 45.2 PLT 260 -- -- 330 NA -- 139 (more content not included)... Normal [facility] CONSULT HNO ID: [id number] Author: MARYSOL GREENE MD Service: Pulmonary Disease Author Type: Physician Type: Consults Filed: 08/15/2023 15:37 Note Text: [facility] [place] STAFF PHYSICIAN NOTE OF PERSONAL INVOLVEMENT IN CARE I have reviewed the progress note obtained and documented by Sully Oneill PA-C, and I personally participated in the mayorga and non-keycomponents. I have examined the patient and personally reviewed labs and imaging and discussed the case and management of the patient's care. The following comments revise or confirm relevant mayorga components of their note. IMPRESSION/PLAN: 47F who we have been consulted for foreign body in the lung. Patient presenting with 1 week history of chest discomfort and shortness of breath. CT PE study revealed small metallic foreign body in right lower lobe segmental bronchus. Patient notes that she lost a lip piercing about a [place] ago [place] a water park and suspects that is the foreign body she aspirated. On exam she is AOx3, not in acute distress. Noted to have multiple piercings and tattoos. On room air, VSS, lungs without any wheezes, rhonchi or crackles. Metallic foreign body aspiration Recent acute PE involving lingula and left lower lobe without acute cor pulmonale. Suspected to be provoked secondary to recent surgery. Was on Eliquis Asthma. Never smoker. Last spirometry normal. Not in exacerbation. -Reviewed images and discussed with IP. Patient will go for [id number] bronchoscopy by interventional pulmonary for foreign body removal tomorrow at [facility]. Please keep n.p.o. from midnight. -Last Eliquis was on 2/13 a.m. Agree with heparin drip, needs to be held 6 hours prior to procedure. -Continue Dulera, albuterol as needed. Marysol Greene MD Pager: [phone] DATE OF SERVICE: 08/15/2023 PULMONARY CONSULT NOTE CONSULTING SERVICE: Pulmonary Medicine REQUESTING PHYSICIAN: Zainab Croft V, MD PRIMARY CARE PHYSICIAN: No primary care provider on file. REASON FOR CONSULT Lung FB ASSESSMENT/PLAN Foreign body in airway - Metallic FB in RLL on CT imaging; likely facial piercing she lost recently Recent PE - Dx on CT 06/01/2023 - Likely provoked following salipingo-oophrectomy/ urethral sling surgery May 2023 - on Eliquis prior to admit - last dose morning of 08/14/23 Asthma - Recently started on Dulera on discharge from recent prior admission - Stable Pulmonary Plan: - Will need bronchoscopy for FB retrieval. Dr Greene to review and assess whether advanced bronchoscopy is needed. - Eliquis on hold. Started on heparin while coordinating procedure. - Continue LABA/ICS with albuterol as needed CHIEF COMPLAINT Chest pain, shortness of breath HPI Patient is a 47 year old female, never smoker, with PMH of PE, asthma who presents for evaluation of foreign body in airway. Patient was admitted in Jun 2023 for acute PE. It thought to be provoked following surgery in May. She has been compliant with Eliquis. She developed chest pain and shortness of breath around 1 week days ago. Also has had dry cough. She presented to ED and work up included CT Chest which showed metallic foreign body in RLL segmental airway. She states she recently lost a facial lip piercing 1 week ago while at a water park. She was started on Dulera on discharge from prior admission which was affordable and was able to fill without issue. She has been using consistently since discharge. She has upcoming Pulmonary appointment with plans for lung function testing. She has never smoked. MEDICATIONS Current Facility-Administered Medications Medication Dose Route Frequency enoxaparin 70 mg injection (LOVENOX) 1 mg/kg/dose SUBCUTANEOUS q 12 HR mometasone-formoterol 100-5 mcg/actuation 2 Puff inhaler (DULERA) 2 Puff INHALATION BID albuterol 2.5 mg /3 mL (0.083 %) 2.5 mg (PROVENTIL) 2.5 mg INHALATION q 4 H PRN guaiFENesin-dextrometh orphan 100-10 mg/5 mL 10 mL oral liquid (ROBITUSSIN DM) 10 mL ORAL q 4 H PRN carvedilol 3.125 mg tab(s) (COREG) 3.125 mg ORAL BID w MEALS amLODIPine 5 mg tab(s) (NORVASC) 5 mg ORAL DAILY NaCl 0.9% iv flush bag 20 mL INTRAVENOUS PRN ondansetron 4 mg tab(s) (ZOFRAN) 4 mg ORAL q 6 H PRN Or ondansetron (PF) 4 mg injection (ZOFRAN) 4 mg INTRAVENOUS q 6 H PRN NaCl 0.9% iv flush bag 20 mL INTRAVENOUS PRN acetaminophen 650 mg tab(s) (TYLENOL) 650 mg ORAL q [address] 40 mg tab(s) (PROTONIX) 40 mg ORAL DAILY (6 AM) famotidine 40 mg tab(s) (PEPCID) 40 mg ORAL AT BEDTIME ALLERGIES ALLERGIES Allergen Reactions Penicillins Anaphylaxis Bactrim [Sulfametho* Codeine Rash Ultram [Tramadol Hc* Intolerance PAST MEDICAL HISTORY PAST MEDICAL HISTORY Diagnosis Date Bipolar I disorder, most recent episode (or current) unspecified Calculus of bile duct without mention of cholecystitis, with obstruction Irritable bowel syndrome Kidney stone Known health problems: none 04/04/2021 Other and unspecified ovari (more content not included)... Normal [facility] CT ABD/PEL WO IVCONon 2023 CT ABD/PEL WO IVCON * * *Final Report* * * DATE OF EXAM: Aug 15 2023 4:00AM [facility] 0531 - CT ABD/PEL WO IVCON / PROCEDURE REASON: Flank pain, kidney stone suspected * * * * Physician Interpretation * * * * RESULT: EXAMINATION: CT SCAN OF THE ABDOMEN AND PELVIS WITHOUT IV CONTRAST CLINICAL HISTORY: Flank pain, PE CT earlier TECHNIQUE: Non-IV contrast imaging of the abdomen was performed using standard technique, scanning from just above the dome of the diaphragm to the symphysis pubis. Unenhanced imaging is limited for the evaluation of some intra-abdominal pathology. Contrast: IV: None, however intravenous contrast was administered about 10 hours prior to this study. Oral: None CT Dose-Length Product: 432 mGy*cm CT Dose Reduction Employed: Automated exposure control(AEC) and iterative recon COMPARISON: Chest CT from 08/14/2023, abdomen pelvis CT from 06/06/2023, KUB from 06/06/2023 FINDINGS: Liver: Normal unenhanced liver. Biliary: No bile duct dilation. Cholecystectomy clips. Pancreas: Within normal limits. Spleen: Normal size. Incidental accessory spleen. Adrenal glands: Within normal limits. Kidneys: No hydroureteronephrosis. Collecting systems are opacified bilaterally with the previous intravenous contrast, prior RIGHT renal stones are not distinguishable. No perinephric inflammatory changes or fluid. No visible cyst or mass. GI tract: No dilation. No wall thickening. Appendix is not visualized. Stable metallic density in the RIGHT lower quadrant, better demonstrated on the comparison KUB from 06/06/2023. Lymph nodes: No enlarged retroperitoneal, mesenteric or pelvic lymph nodes. Mesentery/peritoneum: No ascites. No free air. No fluid collections. Retroperitoneum: No mass. Vasculature: Multiple phleboliths in the pelvis. Pelvis: No mass or ascites. Uterus is absent. LEFT ovarian cyst measuring about 3 cm x 3.8 cm x 2.8 cm. Urinary bladder was decompressed containing excreted intravenous contrast. Abdominal wall/musculoskeletal: No suspicious lytic or sclerotic osseous lesions. Subcutaneous gas and trace fluid in the anterior LEFT mid abdomen, suggesting recent injection. Lower thorax: Redemonstration of small metallic density in the RIGHT lateral subsegmental bronchus to the posterior segment of the RIGHT lower lobe. IMPRESSION: 1. No hydroureteronephrosis. Previous RIGHT renal stones or likely obscured by the excreting intravenous contrast, which also opacifies the decompressed urinary bladder. 2. Uterus is absent, probable LEFT ovarian cyst. If symptoms pertain to this region, consider follow-up with ultrasound. 3. Redemonstration of small metallic density in the RIGHT lateral subsegmental bronchus to the posterior segment of the RIGHT lower lobe. 4. No evidence of an obstructive or inflammatory bowel process. Transcribed Using Voice Recognition Transcribe Date/Time: Aug 15 2023 4:03A Dictated by: JENNA HAIDER MD This examination was interpreted and the report reviewed and electronically signed by: JENNA HAIDER MD on Aug 15 2023 4:28AM EST [id number] Normal [facility] HISTORY PHYSICALon HISTORY PHYSICAL HNO ID: [id number] Author: ZAINAB CROFT MD Service: Hospital Medicine Author Type: Physician Type: H&P Filed: 08/15/2023 11:54 Note Text: HISTORY AND PHYSICAL EXAMINATION PATIENT NAME: Damari Rios SERVICE DATE: 08/15/2023 SERVICE TIME: 11:52 AM PRIMARY CARE PHYSICIAN: No primary care provider on file. SUBJECTIVE CHIEF COMPLAINT: cp HPI: This is a 47 year old female who presents with History of asthma, pulm embolism, comes in for chest pain Imaging show metallic foreign body in the right lower lung segment. Apparently she lost the facial lip piercing while she was in a water park. Has had some cough and congestion. Currently seen by pulmonary, vascular medicine team. Plans for bronchoscopy for foreign body retrieval noted. PAST MEDICAL HISTORY: PAST MEDICAL HISTORY Diagnosis Date Bipolar I disorder, most recent episode (or current) unspecified Calculus of bile duct without mention of cholecystitis, with obstruction Irritable bowel syndrome Kidney stone Known health problems: none 04/04/2021 Other and unspecified ovarian cyst Other cholecystitis Seasonal allergies Temporomandibular joint disorders, unspecified Unspecified asthma(493.90) PAST SURGICAL HISTORY: PAST SURGICAL HISTORY Procedure Laterality Date ADENOIDECTOMY PRIMARY Adenoidectomy COLONOSCOPY FLX DX W/COLLJ SPEC WHEN PFRMD 04/03/2012 pt discomfort, normal to transverse colon - ordered BE EGD TRANSORAL BIOPSY SINGLE/MULTIPLE 04/03/2012 mild gastritis HYSTERECTOMY HX 2017 LAPAROSCOPY SURG CHOLECYSTECTOMY 1999 Cholecystectomy, lap LIG/TRNSXJ FLP TUBE ABDL/VAG APPR UNI/BI 1998 PAST SURGICAL HISTORY OF 2016 ureteral stent placed REMOVAL OF OVARY/TUBE(S) 2022 RSO, LS SLING 2022 TONSILLECTOMY PRIMARY/SECONDARY Tonsillectomy FAMILY HISTORY: FAMILY HISTORY Problem Relation Age of Onset Hypertension Mother Breast Cancer Paternal Grandmother lung GI Paternal Grandfather Diabetes Maternal Grandmother from lung ca Diabetes Maternal Grandfather from unk cause Colon Cancer Maternal Uncle age 43 other (POTS) Sister other (Lupus) Other niece other (lupus) Other Anesthesia Problems No Family History Colon Polyps No Family History SOCIAL HISTORY: Social History Tobacco Use Smoking status: Never Smokeless tobacco: Never Vaping Use Vaping Use: Never used Substance Use Topics Alcohol use: Yes Comment: very rare- maybe 2x/ year Drug use: No MEDICATIONS: Prior to Admission Medications amLODIPine (NORVASC) 5 mg tablet, Take 5 mg by mouth every 24 hours., Disp: , Rfl: , 08/14/2023 apixaban (ELIQUIS) 5 mg tab(s), Take 5 mg by mouth two times a day., Disp: , Rfl: , 08/14/2023 carvedilol (COREG) 3.125 mg tablet, Take 1 tablet by mouth two times a day with meals. (Patient taking differently: Take 6.25 mg by mouth two times a day with meals.), Disp: , Rfl: , 08/14/[address] (PROTONIX) 40 mg tablet, Take 40 mg by mouth once daily., Disp: , Rfl: , 08/14/2023 famotidine (PEPCID) 40 mg tablet, Take 40 mg by mouth daily at bedtime., Disp: , Rfl: , 08/13/2023 albuterol (PROVENTIL) 2.5 mg /3 mL (0.083 %) nebulizer solution, Use 3 mL via nebulizer every 6 hours as needed for Wheezing/Shortness of Breath. Inhale over 5-15 minutes, Disp: 100 Vial, Rfl: 5 albuterol HFA (PROAIR HFA) 90 mcg/actuation inhaler, 2 Puffs every 6 hours as needed for Wheezing/Shortness of Breath. Take as directed, Disp: 3 Inhaler, Rfl: 0 Nebulizer and Compressor For Neb, Dispense one nebulizer with lifetime supplies, Disp: 1 Each, Rfl: 0 Nebulizers, Lifetime supplies, Disp: 1 Each, Rfl: 0 tamsulosin (FLOMAX) 0.4 mg, Take 1 capsule by mouth once daily. 30 minutes after the same meal each day., Disp: 30 capsule, Rfl: 0 mometasone-formoterol (DULERA) 200-5 mcg/actuation inhaler, Inhale 2 Puffs as instructed two times a day., Disp: , Rfl: EPINEPHrine (EPIPEN) 0.3 mg/0.3 mL auto-injector, Use as directed for bee sting, Disp: 2 Each, Rfl: 1 CURRENT ALLERGIES: ALLERGIES Allergen Reactions Penicillins Anaphylaxis Bactrim [Sulfametho* Codeine Rash Ultram [Tramadol Hc* Intolerance COMPLETE REVIEW OF SYSTEMS: PAIN ASSESSMENT: Negative for pain, history of chronic pain, or current treatment for a chronic pain condition. GENERAL: No weight loss, malaise or fevers HEENT: Negative for frequent or significant headaches, No changes in hearing or vision, no nose bleeds or other nasal problems NECK: Negative for lumps, goiter, pain and significant neck swelling RESPIRATORY: Negative for cough, hemoptysis, wheezing or shortness of breath CARDIOVASCULAR: Negative for chest pain, leg swelling or palpitations GI: No nausea, vomiting, or diarrhea : No history of dysuria, frequency or incontinence MUSCULOSKELETAL: Negative for joint pain or swelling, back pain or muscle pain SKIN: Negative for lesions, rash, and itching PSYCH: Negative for sle (more content not included)... Normal [facility] HISTORY PHYSICAL HNO ID: [id number] Author: ECTOR LAZARO PA-C Service: Hospital Medicine Author Type: Physician Assembly Line Robot Operator Type: H&P Filed: 08/14/2023 23:49 Note Text: Summary: Admission Note HISTORY AND PHYSICAL EXAMINATION SERVICE DATE: 08/14/2023 SERVICE TIME: 11:07 PM Code Status: Full Code PRIMARY CARE PHYSICIAN: No primary care provider on file. ADMISSION DIAGNOSIS Subjective CHIEF COMPLAINT: Chest pain, SOB, cough, R flank pain HPI: This is a 47 year old female with PMH of HTN, PE on Eliquis, nonobstructing kidney stones, bipolar 1 disorder. She presents for admission with complaints of substernal chest pain mostly sharp at 8/10 worsening over the past few days. Ct imaging in the ED revealed foreign body in the RLL. She states about a week ago she was at [facility] and noted her lip ring came out, at the time she did not have any sx/or concern for aspirating it. She states chest pain, SOB, and cough began shortly after. She also endorses some right flank pain and epigastric pain, notes it is similar to her pain associated with prior kidney stones noted in June - at the time CT imaging showed 6 mm nonobstructing stones. She denies any fevers, dysuria, hematuria, frequency. FUNCTIONAL STATUS: Independent PAST MEDICAL HISTORY Diagnosis Date Bipolar I disorder, most recent episode (or current) unspecified Calculus of bile duct without mention of cholecystitis, with obstruction Irritable bowel syndrome Kidney stone Known health problems: none 04/04/2021 Other and unspecified ovarian cyst Other cholecystitis Seasonal allergies Temporomandibular joint disorders, unspecified Unspecified asthma(493.90) PAST SURGICAL HISTORY Procedure Laterality Date ADENOIDECTOMY PRIMARY Adenoidectomy COLONOSCOPY FLX DX W/COLLJ SPEC WHEN PFRMD 04/03/2012 pt discomfort, normal to transverse colon - ordered BE EGD TRANSORAL BIOPSY SINGLE/MULTIPLE 04/03/2012 mild gastritis HYSTERECTOMY HX 2017 LAPAROSCOPY SURG CHOLECYSTECTOMY 1999 Cholecystectomy, lap LIG/TRNSXJ FLP TUBE ABDL/VAG APPR UNI/BI 1998 PAST SURGICAL HISTORY OF 2016 ureteral stent placed REMOVAL OF OVARY/TUBE(S) 2022 RSO, LS SLING 2022 TONSILLECTOMY PRIMARY/SECONDARY Tonsillectomy FAMILY HISTORY Problem Relation Age of Onset Hypertension Mother Breast Cancer Paternal Grandmother lung GI Paternal Grandfather Diabetes Maternal Grandmother from lung ca Diabetes Maternal Grandfather from unk cause Colon Cancer Maternal Uncle age 43 other (POTS) Sister other (Lupus) Other niece other (lupus) Other Anesthesia Problems No Family History Colon Polyps No Family History Social History Tobacco Use Smoking status: Never Smokeless tobacco: Never Vaping Use Vaping Use: Never used Substance Use Topics Alcohol use: Yes Comment: very rare- maybe 2x/ year Drug use: No No current facility-administered medications on file prior to encounter. Current Outpatient Medications on File Prior to Encounter Medication Sig amLODIPine (NORVASC) 5 mg tablet Take 5 mg by mouth every 24 hours. apixaban (ELIQUIS) 5 mg tab(s) Take 5 mg by mouth two times a day. carvedilol (COREG) 3.125 mg tablet Take 1 tablet by mouth two times a day with meals. (Patient taking differently: Take 6.25 mg by mouth two times a day with meals.) pantoprazole DR (PROTONIX) 40 mg tablet Take 40 mg by mouth once daily. famotidine (PEPCID) 40 mg tablet Take 40 mg by mouth daily at bedtime. albuterol (PROVENTIL) 2.5 mg /3 mL (0.083 %) nebulizer solution Use 3 mL via nebulizer every 6 hours as needed for Wheezing/Shortness of Breath. Inhale over 5-15 minutes albuterol HFA (PROAIR HFA) 90 mcg/actuation inhaler 2 Puffs every 6 hours as needed for Wheezing/Shortness of Breath. Take as directed Nebulizer and Compressor For Neb Dispense one nebulizer with lifetime supplies Nebulizers Lifetime supplies tamsulosin (FLOMAX) 0.4 mg Take 1 capsule by mouth once daily. 30 minutes after the same meal each day. mometasone-formoterol (DULERA) 200-5 mcg/actuation inhaler Inhale 2 Puffs as instructed two times a day. EPINEPHrine (EPIPEN) 0.3 mg/0.3 mL auto-injector Use as directed for bee sting ALLERGIES Allergen Reactions Penicillins Anaphylaxis Bactrim [Sulfametho* Codeine Rash Ultram [Tramadol Hc* Intolerance COMPLETE REVIEW OF SYSTEMS: GENERAL: Negative for malaise, significant weight loss and fever, general weakness HEENT: No changes in hearing or vision, no nose bleeds or other nasal problems RESPIRATORY: Negative for cough, SOB, dyspnea, hemopytsis, exertional dyspnea, dyspnea at rest CARDIOVASCULAR: Negative for chest pain, leg swelling and palpitations GI: Negative for abd pain, constipation, diarrhea, nausea, vomiting, melena, hematoche (more content not included)... Normal [facility] NURSING PROGon 08-15-2023 NURSING PROG HNO ID: [id number] Author: LUDY PERDUE, RN Service: ? Author Type: Registered Nurse Type: Nursing Progress Note Filed: 08/16/2023 04:46 Note Text: [id number] Damari Rios. FYI pts PTT resulted >139.0 running hep gtt. thank you, Ludy [phone] received report from YUNI Delacruz. Pt resting in bed with call light in reach. Hep gtt stopped d/t PTT 2041 Assessment completed per NPR. Pt AANDOx3. Pt denies any dizziness, PACHECO. Pt reporting int SOB on RA. Pt reporting R abd pain and reporting diarrhea. No signs of distress. Call light in reach 2048 Medication administered per AUG. No further needs. Call light in reach [phone] Damari Rios. FYI pts PTT redraw after 1hr was >139 again. when would you like me to recheck PTT? thanks, Ludy [id number] -recheck in 2 hrs, order placed 0117 restarted hep gtt @11 per pharmacy 2 424-2 Damarijojo Rios. pt reporting R side 9/10 back pain and PACHECO, stating other PRNs did not help, is she able to get anything else? thanks, Ludy [phone] -motrin ordered 0406 hep gtt infusion complete 9 pt reporting 8/10 back pain, medication administered per AUG [facility] NURSING PROG HNO ID: [id number] Author: YVETTE PLEITEZ RN Service: ? Author Type: Registered Nurse Type: Nursing Progress Note Filed: 08/15/2023 14:55 Note Text: Spoke to YUNI Zhou at [facility]. Patient scheduled for a point to point bronchoscopy on 08/16/2023. To be NPO after midnight prior to the procedure, including tube feeds Hold anticoagulant (Heparin drip) / diuretic as directed. (Round trip) Transportation to be arranged by requesting Hospital staff. Patient to arrive at [facility] by 1130am on a stretcher/cart, escorted by medical personnel, via ambulance. Pre-op COVID testing: N/A- unless patient is symptomatic. [facility] RN will call for detailed report on the morning of the procedure. RN verbalized understanding. Normal [facility] NURSING PROG HNO ID: [id number] Author: LIZA MCCALLUM RN Service: ? Author Type: Registered Nurse Type: Nursing Progress Note Filed: 08/14/2023 22:28 Note Text: Other: 2225: pt arrived from ED with chest pain, assessment completed, iv site observed, wnl, call light, bedside tray within reach, instructed to use, verbalized understanding, bed in low position, locked. Normal [facility] PT panel Coag (PPP)on 2023 INR Coag (PPP) [Relative time] 1.0 {INR} Normal 0.9-1.3 [facility] Comment on above: Order Comment: Renetta la Type: BLOOD SPECIMEN Ordering Facility: [facility] Address: [address] [place] [address] Result Comment: Tiesha min K Antagonist (VKA) Therapeutic Range: INR 2 to 3 (Target INR of 2.5) Note: For patients treated with VKA drugs, such as warfarin, the [place] [employer] 2012 Guideline recommends a therapeutic INR range of 2 to 3 (target INR of 2.5). This recommendation includes high-risk patients with antiphospholipid syndrome with previous arterial or venous thromboembolism, current-generation mechanical or bioprosthetic aortic heart valve replacement. Note: Patients with mechanical aortic valve replacement and additional risk factors for thromboembolic events (atrial fibrillation, previous thromboembolism, LV dysfunction, hypercoagulable conditions) or an older generation mechanical AVR (i.e., ball in-Cage) or any mechanical MVR should have a INR therapeutic range of 2.5 to 3.5 (target INR of 3). Marisela GH, et al. Chest 2012, 141:7S-47S Roberta RA, et al. [facility] 2017, 70: 252-289 Performed By: #### P TTAC #### [facility] CLIA [id number] [address] [place] [address] [place] PT Coag (PPP) [Time] 10.8 s Normal 9.7-13.0 [facility] Comment on above: Order Comment: Renetta la Type: BLOOD SPECIMEN Ordering Facility: [facility] Address: [address] [place] [address] Performed By: #### P TTAC #### [facility] CLIA [id number] [address] [place] [address] [place] PTT, ANTICOAGULANT THERAPYon 08-15-2023 aPTT Coag (PPP) [Time] s High 23.0-32.4 [facility] Comment on above: Order Comment: Renetta la Type: BLOOD SPECIMENOrdering Facility: [facility] Address: [address] [place] [address] Result Comment: Samp le checked for clot. Result rechecked. Performed By: #### P TTAC ####[facility] [id number] [place] [address] [place] aPTT Coag (PPP) [Time] s High 23.0-32.4 [facility] Comment on above: Order Comment: Speci men Type: BLOOD SPECIMEN Ordering Facility: [facility] Address: [address] [place] [address] Result Comment: [facility]. Result rechecked. Performed By: #### P TTAC #### [facility] CLIA [id number] [address] [place] [address] [place] aPTT Coag (PPP) [Time] 49.1 s High 23.0-32.4 [facility] Comment on above: Order Comment: Speci men Type: BLOOD SPECIMEN Ordering Facility: [facility] Address: [address] [place] [address] Performed By: #### P TTAC #### [facility] CLIA [id number] [address] [place] [address] [place] Urinalysis complete panel (U )on 08-15-2023 Bacteria LM.HPF (Urine sed) [#/Area] Rare Abnormal None Seen [facility] Comment on above: Order Comment: Speci men Type: URINE SPECIMENOrdering Facility: [facility] Address: [address] [place] [address] Performed By: #### 2 4356-8 ####[facility] [id number] [place] [address] [place] Bilirubin Ql (U) Negative Normal Negative [facility] Comment on above: Order Comment: Speci men Type: URINE SPECIMENOrdering Facility: [facility] Address: [address] [place] [address] Performed By: #### 2 4356-8 ####[facility] [id number] [place] [address] [place] Clarity (Unsp spec) Clear Normal Clear [facility] Comment on above: Order Comment: Speci men Type: URINE SPECIMENOrdering Facility: [facility] Address: [address] [place] [address] Performed By: #### 2 4356-8 ####[facility] [id number] [place] [address] [place] Color (U) Light Yellow Normal Yellow [facility] Comment on above: Order Comment: Speci men Type: URINE SPECIMENOrdering Facility: [facility] Address: [address] [place] [address] Performed By: #### 2 4356-8 ####[facility] [id number] [place] [address] [place] Epithelial cells LM.HPF (Urine sed) [#/Area] Many Normal [facility] Comment on above: Order Comment: Speci men Type: URINE SPECIMENOrdering Facility: [facility] Address: [address] [place] [address] Performed By: #### 2 4356-8 ####[facility] [id number] [place] [address] [place] Glucose Test strip (U) [Mass/Vol] Negative Normal Trace, Negative [facility] Comment on above: Order Comment: Speci men Type: URINE SPECIMENOrdering Facility: [facility] Address: [address] [place] [address] Performed By: #### 2 4356-8 ####[facility] [id number] [place] [address] [place] Hemoglobin Ql (U) Negative Normal Negative, Trace [facility] Comment on above: Order Comment: Speci men Type: URINE SPECIMENOrdering Facility: [facility] Address: [address] [place] [address] Performed By: #### 2 4356-8 ####[facility] [id number] [place] [address] [place] Ketones Ql (U) Negative Normal Negative, Trace [facility] Comment on above: Order Comment: Speci men Type: URINE SPECIMENOrdering Facility: [facility] Address: [address] [place] [address] Performed By: #### 2 4356-8 ####[facility] [id number] [place] [address] [place] Leukocyte esterase Test strip Ql (U) Negative Normal Negative, 25 Souleymane/uL [facility] Comment on above: Order Comment: Speci men Type: URINE SPECIMENOrdering Facility: [facility] Address: [address] [place] [address] Performed By: #### 2 4356-8 ####[facility] [id number] [place] [address] [place] Nitrite Ql (U) Negative Normal Negative [facility] Comment on above: Order Comment: Speci men Type: URINE SPECIMENOrdering Facility: [facility] Address: [address] [place] [address] Performed By: #### 2 4356-8 ####[facility] [id number] [place] [address] [place] pH (U) 6.5 [pH] Normal 5.0-8.0 [facility] Comment on above: Order Comment: Speci men Type: URINE SPECIMENOrdering Facility: [facility] Address: [address] [place] [address] Performed By: #### 2 4356-8 ####[facility] [id number] [place] [address] [place] Protein (U) [Mass/Vol] 1+ Abnormal Trace , Negative [facility] Comment on above: Order Comment: Speci men Type: URINE SPECIMENOrdering Facility: [facility] Address: [address] [place] [address] Performed By: #### 2 4356-8 ####[facility] [id number] [place] [address] [place] RBC LM.HPF (Urine sed) [#/Area] 6-10 /HPF Abnormal 0-3 /HPF [facility] Comment on above: Order Comment: Speci men Type: URINE SPECIMENOrdering Facility: [facility] Address: [address] [place] [address] Performed By: #### 2 4356-8 ####[facility] [id number] [place] [id number] [place] Specific gravity (U) [Rel density] 1.010 Normal 1.005-1.030 [facility] Comment on above: Order Comment: Speci men Type: URINE SPECIMENOrdering Facility: [facility] Address: [address] [place] [address] Performed By: #### 2 4356-8 ####[facility] [id number] [place] [address] [place] Urobilinogen Ql (U) Normal Normal Normal [facility] Comment on above: Order Comment: Speci men Type: URINE SPECIMENOrdering Facility: [facility] Address: [address] [place] [address] Performed By: #### 2 4356-8 ####[facility]ORATORYCLIA [id number] [place] [address] [place] WBC LM.HPF (Urine sed) [#/Area] 11-25 /HPF Abnormal 0-5 /HPF [facility] Comment on above: Order Comment: Speci men Type: URINE SPECIMENOrdering Facility: [facility] Address: [address] [place] [address] Performed By: #### 2 4356-8 ####[facility] [id number] [place] [address] [place] ALLIED HEALTHon 08-14-2023 ALLIED HEALTH HNO ID: [id number] Author: SUPA SHERMAN RT(R) Service: ? Author Type: Technologist Type: Allied Health Filed: 08/14/2023 17:53 Note Text: Radiology Service Progress Note DATE OF SERVICE: August 14, 2023 TIME: 5:53 PM PATIENT IDENTITY VERIFICATION COMPLETED USING TWO (2) STANDARD IDENTIFIERS: Name and Date of confirmed by patient verbally. FALL SCREENING: Has the patient had 2 falls in the last year or 1 fall with injury or currently using an Ambulatory Assistive Device (Walker, Cane, Wheelchair, Crutches, etc.)? Emergency Room Patient: Screened in ED PATIENT GENDER DATA: Female. status: : No status: NO. 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 EXAM: CT -CONTRAST INDUCED NEPHROPATHY RISK FACTORS: Not applicable CREATININE: Creatinine Date Value Ref Range Status 08/14/2023 0.91 0.58 - 0.96 mg/dL Final 06/11/2023 0.95 0.58 - 0.96 mg/dL Final 06/06/2023 1.03 (H) 0.58 - 0.96 mg/dL Final Estimated Glomerular Filtration Rate Date Value Ref Range Status 08/14/2023 79 >=60 mL/min/1.73m? Final Comment: Estimated Glomerular Filtration Rate (eGFR) is calculated using the 2020 CKD-EPI creatinine equation. This equation utilizes serum creatinine, sex, and age as parameters. The creatinine assay has traceable calibration to isotope dilution-mass spectrometry. Refer to KDIGO guidelines for clinical interpretation. In patients with unstable renal function, e.g. those with acute kidney injury, the eGFR may not accurately reflect actual GFR. eGFR- Date Value Ref Range Status 06/19/2019 >60 Final P.O.C.T. RESULTS: N/A August 14, 2023 TREATMENT: N/A PERIPHERAL IV DATA: Inpatient - refer to LDA documentation RADIOLOGY DEPARTMENT: CT; Exam(s) Completed: Study SIGNATURE: RT Guicho(R) PATIENT NAME: Damari Rios DATE: August 14, 2023 TIME: 5:53 PM Normal [facility] CBC W Auto Differential pane l (Bld)on 08-14-2023 Basophils (Bld) [#/Vol] 10*3/uL Normal <0.11 [facility] Comment on above: Order Comment: Speci men Type: BLOOD SPECIMENOrdering Facility: [facility] Address: [address] [place] [address] Performed By: #### 5 7021-8 ####[facility]ORYCLIA [id number] [place] [address] [place] Basophils/100 WBC (Bld) 0.3 % Normal [facility] Comment on above: Order Comment: Speci men Type: BLOOD SPECIMENOrdering Facility: [facility] Address: [address] [place] [address] Performed By: #### 5 7021-8 ####[facility] [id number] [place] [address] [place] Differential cell count method Nom (Bld) Auto Normal [facility] Comment on above: Order Comment: Speci men Type: BLOOD SPECIMENOrdering Facility: [facility] Address: [address] [place] [address] Performed By: #### 5 7021-8 ####[facility] [id number] [place] [address] [place] Eosinophils (Bld) [#/Vol] 0.11 10*3/uL Normal <0.46 [facility] Comment on above: Order Comment: Speci men Type: BLOOD SPECIMENOrdering Facility: [facility] Address: [address] [place] [address] Performed By: #### 5 7021-8 ####[facility] [id number] [place] [address] [place] Eosinophils/100 WBC (Bld) 1.8 % Normal [facility] Comment on above: Order Comment: Speci men Type: BLOOD SPECIMENOrdering Facility: [facility] Address: [address] [place] [address] Performed By: #### 5 7021-8 ####[facility] [id number] [place] [address] [place] Erythrocyte distribution width (RBC) [Ratio] 13.3 % Normal 11.5-15.0 [facility] Comment on above: Order Comment: Speci men Type: BLOOD SPECIMENOrdering Facility: [facility] Address: [address] [place] [address] Performed By: #### 5 7021-8 ####[facility] [id number] [place] [address] [place] Hematocrit (Bld) [Volume fraction] 45.2 % Normal 36.0-46.0 [facility] Comment on above: Order Comment: Speci men Type: BLOOD SPECIMENOrdering Facility: [facility] Address: [address] [place] [address] Performed By: #### 5 7021-8 ####[facility] [id number] [place] [address] [place] Hemoglobin (Bld) [Mass/Vol] 15.1 g/dL Normal 11.5-15.5 [facility] Comment on above: Order Comment: Speci men Type: BLOOD SPECIMENOrdering Facility: [facility] Address: [address] [place] [address] Performed By: #### 5 7021-8 ####[facility] [id number] [place] [address] [place] Immature granulocytes (Bld) [#/Vol] 10*3/uL Normal <0.10 [facility] Comment on above: Order Comment: Speci men Type: BLOOD SPECIMENOrdering Facility: [facility] Address: [address] [place] [address] Performed By: #### 5 7021-8 ####[facility] [id number] [place] [address] [place] Immature granulocytes/100 WBC (Bld) 0.3 % Normal [facility] Comment on above: Order Comment: Speci men Type: BLOOD SPECIMENOrdering Facility: [facility] Address: [address] [place] [address] Performed By: #### 5 7021-8 ####[facility] [id number] [place] [address] [place] Lymphocytes (Bld) [#/Vol] 1.72 10*3/uL Normal 1.00-4.00 [facility] Comment on above: Order Comment: Speci men Type: BLOOD SPECIMENOrdering Facility: [facility] Address: [address] [place] [address] Performed By: #### 5 7021-8 ####[facility] [id number] [place] [address] [place] Lymphocytes/100 WBC (Bld) 28.6 % Normal [facility] Comment on above: Order Comment: Speci men Type: BLOOD SPECIMENOrdering Facility: [facility] Address: [address] [place] [address] Performed By: #### 5 7021-8 ####[facility] [id number] [place] [address] [place] MCH (RBC) [Entitic mass] 30.4 pg Normal 26.0-34.0 [facility] Comment on above: Order Comment: Speci men Type: BLOOD SPECIMENOrdering Facility: [facility] Address: [address] [place] [address] Performed By: #### 5 7021-8 ####[facility] [id number] [place] [address] [place] MCHC (RBC) [Mass/Vol] 33.4 g/dL Normal 30.5-36.0 [facility] Comment on above: Order Comment: Speci men Type: BLOOD SPECIMENOrdering Facility: [facility] Address: [address] [place] [address] Performed By: #### 5 7021-8 ####[facility] [id number] [place] [address] [place] MCV (RBC) [Entitic vol] 91.1 fL Normal 80.0-100.0 [facility] Comment on above: Order Comment: Speci men Type: BLOOD SPECIMENOrdering Facility: [facility] Address: [address] [place] [address] Performed By: #### 5 7021-8 ####[facility]ORATORYCLIA [id number] [place] [address] [place] Monocytes (Bld) [#/Vol] 0.35 10*3/uL Normal <0.87 [facility] Comment on above: Order Comment: Speci men Type: BLOOD SPECIMENOrdering Facility: [facility] Address: [address] [place] [address] Performed By: #### 5 7021-8 ####[facility]ORATORYCLIA [id number] [place] [address] [place] Monocytes/100 WBC (Bld) 5.8 % Normal [facility] Comment on above: Order Comment: Speci men Type: BLOOD SPECIMENOrdering Facility: [facility] Address: [address] [place] [address] Performed By: #### 5 7021-8 ####[facility]ORATORYCLIA [id number] [place] [address] [place] Neutrophils (Bld) [#/Vol] 3.79 10*3/uL Normal 1.45-7.50 [facility] Comment on above: Order Comment: Speci men Type: BLOOD SPECIMENOrdering Facility: [facility] Address: [address] [place] [address] Performed By: #### 5 7021-8 ####[facility]ORATORYCLIA [id number] [address] [place] Neutrophils/100 WBC (Bld) 63.2 % Normal [facility] Comment on above: Order Comment: Speci men Type: BLOOD SPECIMENOrdering Facility: [facility] Address: [address] [place] [address] Performed By: #### 5 7021-8 ####[facility]ORATORYCLIA [id number] [place] [address] [place] Nucleated RBC (Bld) [#/Vol] 10*3/uL Normal <0.01 [facility] Comment on above: Order Comment: Speci men Type: BLOOD SPECIMENOrdering Facility: [facility] Address: [address] [place] [address] Performed By: #### 5 7021-8 ####[facility]ORATORYCLIA [id number] [place] [address] [place] Nucleated RBC/100 WBC (Bld) [Ratio] 0.0 /100 WBC Normal [facility] Comment on above: Order Comment: Speci men Type: BLOOD SPECIMENOrdering Facility: [facility] Address: [address] [place] [address] Performed By: #### 5 7021-8 ####[facility]ORATORYCLIA [id number] [place] [address] [place] Platelet mean volume (Bld) [Entitic vol] 9.0 fL Normal 9.0-12.7 [facility] Comment on above: Order Comment: Speci men Type: BLOOD SPECIMENOrdering Facility: [facility] Address: [address] [place] [address] Performed By: #### 5 7021-8 ####[facility] LABORATORYCLIA [id number] [place] [address] [place] Platelets (Bld) [#/Vol] 330 10*3/uL Normal 150-400 [facility] Comment on above: Order Comment: Speci men Type: BLOOD SPECIMENOrdering Facility: [facility] Address: [address] [place] [address] Performed By: #### 5 7021-8 ####[facility] LABORATORYCLIA [id number] [place] [address] [place] RBC (Bld) [#/Vol] 4.96 10*6/uL Normal 3.90-5.20 [facility] Comment on above: Order Comment: Speci men Type: BLOOD SPECIMENOrdering Facility: [facility] Address: [address] [place] [address] Performed By: #### 5 7021-8 ####[facility]ORATORYCLIA [id number] [place] [address] [place] WBC (Bld) [#/Vol] 6.01 10*3/uL Normal 3.70-11.00 [facility] Comment on above: Order Comment: Speci men Type: BLOOD SPECIMENOrdering Facility: [facility] Address: [address] [place] [address] Performed By: #### 5 7021-8 ####[facility] [id number] [address] CHEST W IVCON PEon 2023 CT CHEST W IVCON PE * * *Final Report* * * DATE OF EXAM: Aug 14 2023 5:52PM [facility] 0540 - CT CHEST W IVCON PE / PROCEDURE REASON: Pulmonary embolism (PE) suspected, high prob * * * * Physician Interpretation * * * * RESULT: EXAMINATION: CHEST CT WITH CONTRAST (PULMONARY EMBOLISM PROTOCOL) CLINICAL HISTORY: Pulmonary embolism suspected, high probability Technique: Spiral CT acquisition of the chest from the thoracic inlet to the upper abdomen following IV contrast. Axial 1 mm thick slices plus coronal and sagittal reformatted images. Contrast: 77 mL Omnipaque [address] Radiation dose: Integrated Dose-length product (DLP) for this visit = 380 mGy*cm CT Dose Reduction Employed: Iterative recon and mAs-kVp adjusted using patient size-age Comparison: CT chest 06/01/2023 RESULT: Evaluation for thromboembolic disease: - Main pulmonary arteries: No thromboembolic disease. - Lobar pulmonary arteries: No thromboembolic disease. - Segmental pulmonary arteries: No thromboembolic disease. - Subsegmental pulmonary arteries: No thromboembolic disease. Lungs and pleura: Metallic foreign body in right lower lobe segmental airway best seen on axial image 182 and coronal image 178. This appears to be shaped like a screw and measures approximately 9 mm in length. No infiltrate, pleural effusion, or pneumothorax. Mediastinum: The thoracic aorta is normal in caliber. The cardiac chambers are normal in size. No coronary artery atherosclerotic calcifications are noted, although the study is not optimized for coronary assessment. No pericardial effusion or thickening. Bones and soft tissues: No destructive bone lesion. Chest wall is unremarkable. Upper abdomen: No abnormality in the imaged upper abdomen. Cholecystectomy. IMPRESSION: 1. No CT evidence of pulmonary embolism. 2. Small metallic screw-shaped foreign body in right lower lobe segmental airway measuring approximately 9 mm in length. This was not present on 06/01/2023. Communicated with Dr. Méndez on 08/14/2023 6:18 PM. Transcribed Using Voice Recognition Transcribe Date/Time: Aug 14 2023 6:07P Dictated by: SHANE SIMS MD This examination was interpreted and the report reviewed and electronically signed by: SHANE SIMS MD on Aug 14 2023 6:19PM EST [id number] Normal [facility] Comprehensive metabolic 2000 panelon 08-14-2023 Albumin [Mass/Vol] 4.1 g/dL Normal 3.9-4.9 [facility] Comment on above: Order Comment: Speci men Type: BLOOD SPECIMENOrdering Facility: [facility] Address: [address] [place] [address] Performed By: #### 2 4323-8, 3040-3, HSTNT ####[facility]ORATORYCLIA [id number] [place] [address] [place] ALP [Catalytic activity/Vol] 101 U/L Normal 34-123 [facility] Comment on above: Order Comment: Speci men Type: BLOOD SPECIMENOrdering Facility: [facility] Address: [address] [place] [address] Performed By: #### 2 4323-8, 3040-3, HSTNT ####[facility]ORATORYCLIA [id number] [place] [address] [place] ALT [Catalytic activity/Vol] 21 U/L Normal 7-38 [facility] Comment on above: Order Comment: Speci men Type: BLOOD SPECIMENOrdering Facility: [facility] Address: [address] [place] [address] Performed By: #### 2 4323-8, 3040-3, HSTNT ####[facility]ORATORYCLIA [id number] [place] [address] [place] Anion gap [Moles/Vol] 10 mmol/L Normal 9-18 [facility] Comment on above: Order Comment: Speci men Type: BLOOD SPECIMENOrdering Facility: [facility] Address: [address] [place] [address] Performed By: #### 2 4323-8, 3040-3, HSTNT ####[facility]ORATORYCLIA [id number] [place] [address] [place] AST [Catalytic activity/Vol] 20 U/L Normal 13-35 [facility] Comment on above: Order Comment: Speci men Type: BLOOD SPECIMENOrdering Facility: [facility] Address: [address] [place] [address] Performed By: #### 2 4323-8, 3040-3, HSTNT ####[facility]ORATORYCLIA [id number] [place] [address] [place] Bilirubin [Mass/Vol] 0.6 mg/dL Normal 0.2-1.3 [facility] Comment on above: Order Comment: Speci men Type: BLOOD SPECIMENOrdering Facility: [facility] Address: [address] [place] [address] Performed By: #### 2 4323-8, 3040-3, HSTNT ####[facility]ORATORYCLIA [id number] [place] [address] [place] Calcium [Mass/Vol] 8.8 mg/dL Normal 8.5-10.2 [facility] Comment on above: Order Comment: Speci men Type: BLOOD SPECIMENOrdering Facility: [facility] Address: [address] [place] [address] Performed By: #### 2 4323-8, 3040-3, HSTNT ####[facility]ORATORYCLIA [id number] [place] [address] [place] Chloride [Moles/Vol] 103 mmol/L Normal 97-105 [facility] Comment on above: Order Comment: Speci men Type: BLOOD SPECIMENOrdering Facility: [facility] Address: [address] [place] [address] Performed By: #### 2 4323-8, 3040-3, HSTNT ####[facility]ATORYCLIA [id number] [place] [address] [place] CO2 [Moles/Vol] 24 mmol/L Normal 22-30 [facility] Comment on above: Order Comment: Speci men Type: BLOOD SPECIMENOrdering Facility: [facility] Address: [address] [place] [address] Performed By: #### 2 4323-8, 3040-3, HSTNT ####[facility] LABORATORYCLIA [id number] [place] [id number] [place] Creatinine [Mass/Vol] 0.96 mg/dL Normal 0.58-0.96 [facility] Comment on above: Order Comment: Speci men Type: BLOOD SPECIMENOrdering Facility: [facility] Address: [address] [place] [address] Performed By: #### 2 4323-8, 3040-3, HSTNT ####[facility]ORATORYCLIA [id number] [place] [id number] [place] Creatinine and Glomerular filtration rate.predicted panel (S/P/Bld) 74 mL/min/1.73m??? Normal >=60 [facility] Comment on above: Order Comment: Renetta la Type: BLOOD SPECIMENOrdering Facility: [facility] Address: [address] [place] [address] Result Comment: Nura mated Glomerular Filtration Rate (eGFR) is calculated using the 2020 CKD-EPI creatinine equation. This equation utilizes serum creatinine, sex, and age as parameters. The creatinine assay has traceable calibration to isotope dilution-mass spectrometry. Refer to KDIGO guidelines for clinical interpretation. In patients with unstable renal function, e.g. those with acute kidney injury, the eGFR may not accurately reflect actual GFR. Performed By: #### 2 4323-8, 3040-3, HSTNT ####[facility]ORATORYCLIA [id number] [place] [address] [place] Glucose [Mass/Vol] 86 mg/dL Normal 74-99 [facility] Comment on above: Order Comment: Maikoli men Type: BLOOD SPECIMENOrdering Facility: [facility] Address: [address] [place] [address] Result Comment: The [place] [employer] (ADA) provides guidance for cutoff values for fasting glucose and random glucose. The ADA defines fasting as no caloric intake for at least 8 hours. Fasting plasma glucose results between 100 to 125 mg/dL indicate increased risk for diabetes (prediabetes). Fasting plasma glucose results greater than or equal to 126 mg/dL meet the criteria for diagnosis of diabetes. In the absence of unequivocal hyperglycemia, results should be confirmed by repeat testing. In a patient with classic symptoms of hyperglycemia or hyperglycemic crisis, random plasma glucose results greater than or equal to 200 mg/dL meet the criteria for diagnosis of diabetes. Reference: Standards of Medical Care in Diabetes 2016, [place] [employer]. Diabetes Care. 2016.39(Suppl 1). Performed By: #### 2 4323-8, 3040-3, HSTNT ####[facility]ORATORYCLIA [id number] [place] [address] [place] Potassium [Moles/Vol] 3.6 mmol/L Low 3.7-5.1 [facility] Comment on above: Order Comment: Renetta la Type: BLOOD SPECIMENOrdering Facility: [facility] Address: [address] [place] [address] Performed By: #### 2 4323-8, 0-3, HSTNT ####[facility]ORATORYCLIA [id number] [place] [address] [place] Protein [Mass/Vol] 7.0 g/dL Normal 6.3-8.0 [facility] Comment on above: Order Comment: Renetta la Type: BLOOD SPECIMENOrdering Facility: [facility] Address: [address] [place] [address] Performed By: #### 2 4323-8, 3040-3, HSTNT ####[facility]ORATORYCLIA [id number] [place] [id number] [place] Sodium [Moles/Vol] 137 mmol/L Normal 136-144 [facility] Comment on above: Order Comment: Renetta la Type: BLOOD SPECIMENOrdering Facility: [facility] Address: [address] [place] [address] Performed By: #### 2 4323-8, 3040-3, HSTNT ####[facility]ORATORYCLIA [id number] [place] [id number] [place] Urea nitrogen [Mass/Vol] 13 mg/dL Normal 7-21 [facility] Comment on above: Order Comment: Speci men Type: BLOOD SPECIMENOrdering Facility: [facility] Address: [address] [place] [address] Performed By: #### 2 4323-8, 3040-3, HSTNT ####[facility]ORATORYCLIA [id number] [place] [address] [place] Albumin [Mass/Vol] 4.4 g/dL Normal 3.9-4.9 [facility] Comment on above: Order Comment: Speci men Type: BLOOD SPECIMENOrdering Facility: [facility] Address: [address] [place] [address] Performed By: #### 2 4323-8, HSTNT, ####[facility]ORATORYCLIA [id number] [place] [address] [place] ALP [Catalytic activity/Vol] 100 U/L Normal 34-123 [facility] Comment on above: Order Comment: Speci men Type: BLOOD SPECIMENOrdering Facility: [facility] Address: [address] [place] [address] Performed By: #### 2 4323-8, HSTNT, ####[facility]ORATORYCLIA [id number] [place] [address] [place] ALT [Catalytic activity/Vol] Normal [facility] Comment on above: Order Comment: Speci men Type: BLOOD SPECIMENOrdering Facility: [facility] Address: [address] [place] [address] Result Comment: Unab le to assay due to interference from hemolysis. Suggest reorder as clinically indicated. Performed By: #### 2 4323-8, HSTNT, ####[facility]ORATORYCLIA [id number] [place] [address] [place] Anion gap [Moles/Vol] 11 mmol/L Normal 9-18 [facility] Comment on above: Order Comment: Speci men Type: BLOOD SPECIMENOrdering Facility: [facility] Address: [address] [place] [address] Performed By: #### 2 4323-8, HSTNT, ####[facility]ORATORYCLIA [id number] [place] [address] [place] AST [Catalytic activity/Vol] Normal [facility] Comment on above: Order Comment: Speci men Type: BLOOD SPECIMENOrdering Facility: [facility] Address: [facility] [place] [address] Result Comment: Unab le to assay due to interference from hemolysis. Suggest reorder as clinically indicated. Performed By: #### 2 4323-8, HSTNT, ####[facility]ORATORYCLIA [id number] [place] [address] [place] Bilirubin [Mass/Vol] 0.6 mg/dL Normal 0.2-1.3 [facility] Comment on above: Order Comment: Speci men Type: BLOOD SPECIMENOrdering Facility: [facility] Address: [address] [place] [address] Performed By: #### 2 4323-8, HSTNT, ####[facility]ORATORYCLIA [id number] [place] [address] [place] Calcium [Mass/Vol] 8.8 mg/dL Normal 8.5-10.2 [facility] Comment on above: Order Comment: Speci men Type: BLOOD SPECIMENOrdering Facility: [facility] Address: [address] [place] [address] Performed By: #### 2 4323-8, HSTNT, ####[facility]ORATORYCLIA [id number] [place] [address] [place] Chloride [Moles/Vol] 101 mmol/L Normal 97-105 [facility] Comment on above: Order Comment: Speci men Type: BLOOD SPECIMENOrdering Facility: [facility] Address: [address] [place] [address] Performed By: #### 2 4323-8, HSTNT, ####[facility] LABORATORYCLIA [id number] [place] [address] [place] CO2 [Moles/Vol] 25 mmol/L Normal 22-30 [facility] Comment on above: Order Comment: Speci men Type: BLOOD SPECIMENOrdering Facility: [facility] Address: [address] [place] [address] Performed By: #### 2 4323-8, HSTNT, ####[facility] LABORATORYCLIA [id number] [place] [address] [place] Creatinine [Mass/Vol] 0.91 mg/dL Normal 0.58-0.96 [facility] Comment on above: Order Comment: Speci men Type: BLOOD SPECIMENOrdering Facility: [facility] Address: [address] [place] [address] Performed By: #### 2 4323-8, HSTNT, ####[facility] LABORATORYCLIA [id number] [place] [address] [place] Creatinine and Glomerular filtration rate.predicted panel (S/P/Bld) 79 mL/min/1.73m??? Normal >=60 [facility] Comment on above: Order Comment: Speci men Type: BLOOD SPECIMENOrdering Facility: [facility] Address: [address] [place] [address] Result Comment: Nura mated Glomerular Filtration Rate (eGFR) is calculated using the 2020 CKD-EPI creatinine equation. This equation utilizes serum creatinine, sex, and age as parameters. The creatinine assay has traceable calibration to isotope dilution-mass spectrometry. Refer to KDIGO guidelines for clinical interpretation. In patients with unstable renal function, e.g. those with acute kidney injury, the eGFR may not accurately reflect actual GFR. Performed By: #### 2 4323-8, HSTNT, ####[facility]ORATORYCLIA [id number] [place] [address] [place] Glucose [Mass/Vol] 85 mg/dL Normal 74-99 [facility] Comment on above: Order Comment: Speci men Type: BLOOD SPECIMENOrdering Facility: [facility] Address: [address] [place] [address] Result Comment: The [place] Diabetes [employer] (ADA) provides guidance for cutoff values for fasting glucose and random glucose. The ADA defines fasting as no caloric intake for at least 8 hours. Fasting plasma glucose results between 100 to 125 mg/dL indicate increased risk for diabetes (prediabetes). Fasting plasma glucose results greater than or equal to 126 mg/dL meet the criteria for diagnosis of diabetes. In the absence of unequivocal hyperglycemia, results should be confirmed by repeat testing. In a patient with classic symptoms of hyperglycemia or hyperglycemic crisis, random plasma glucose results greater than or equal to 200 mg/dL meet the criteria for diagnosis of diabetes. Reference: Standards of Medical Care in Diabetes 2016, [place] [employer]. Diabetes Care. 2016.39(Suppl 1). Performed By: #### 2 4323-8, HSTNT, ####[employer] LABORATORYCLIA [id number] [place] [address] [place] Potassium [Moles/Vol] Normal [facility] Comment on above: Order Comment: Speci men Type: BLOOD SPECIMENOrdering Facility: [facility] Address: [address] [place] [address] Result Comment: Unab le to assay due to interference from hemolysis. Suggest reorder as clinically indicated. Performed By: #### 2 4323-8, HSTNT, ####[facility] LABORATORYCLIA [id number] [place] [address] [place] Protein [Mass/Vol] 7.6 g/dL Normal 6.3-8.0 [facility] Comment on above: Order Comment: Speci [facility] Type: BLOOD SPECIMENOrdering Facility: [facility] Address: [address] [place] [address] Performed By: #### 2 4323-8, HSTNT, ####[facility]ATORYCLIA [id number] [place] [address] [place] Sodium [Moles/Vol] 137 mmol/L Normal 136-144 [facility] Comment on above: Order Comment: Speci men Type: BLOOD SPECIMENOrdering Facility: [facility] Address: [address] [place] [address] Performed By: #### 2 4323-8, HSTNT, 94172-6 ####[facility] LABORATORYCLIA [id number] [place] [id number] [place] Urea nitrogen [Mass/Vol] 14 mg/dL Normal 7-21 [facility] Comment on above: Order Comment: Speci men Type: BLOOD SPECIMENOrdering Facility: [facility] Address: [address] [place] [address] Performed By: #### 2 4323-8, HSTNT, ####[facility] LABORATORYCLIA [id number] [place] [id number] [place] ECG COMPLETEon 08-14-2023 ECG COMPLETE Ventricular Rate : 7 3 BPM Atrial Rate : 73 BPM P-R Interval : 152 ms QRS Duration : 76 ms Q-T Interval : 350 ms QTC Calculation(Bazett) : 385 ms Calculated P [place] : 66 degrees Calculated R [place] : 48 degrees Calculated T [place] : 101 degrees NORMAL SINUS RHYTHM NONSPECIFIC T WAVE ABNORMALITY ABNORMAL ECG WHEN COMPARED WITH ECG OF 09-JUN-2023 11:16, NO SIGNIFICANT CHANGE WAS FOUND CONFIRMED 2147 Confirmed by DO PANCHAL STEPHANIE ([id number]), editor school photograph LAKISHA WALSH ([id number]) on 08/16/2023 10:59:59 AM NAME : DAMARI RIOS PID : [id number] : 1975 Gender : Female Race : ORD : [id number] Procedure Date : Aug 14 2023 13:11:33 Edit Date : Aug 16 2023 11:00:01 Diagnosis: NORMAL SINUS RHYTHM NONSPECIFIC T WAVE ABNORMALITY ABNORMAL ECG WHEN COMPARED WITH ECG OF 09-JUN-2023 11:16, NO SIGNIFICANT CHANGE WAS FOUND CONFIRMED 2147 Confirmed by DO PANCHAL STEPHANIE ([id number]), editor school photograph LAKISHA WALSH ([id number]) on 08/16/2023 10:59:59 AM Test Reason : Chest Pain Location : 26 : ER L Overread By : DO PANCHAL STEPHANIE Edited By : LAKISHA WALSH Referred By : , Acquired by : , Normal [facility] ED NOTEon 08-14-2023 ED NOTE HNO ID: [id number] Author: NIRMALA IBANEZ RN Service: ? Author Type: Registered Nurse Type: ED Notes Filed: 08/14/2023 19:40 Note Text: Bed: ED-28 Expected date: Expected time: Means of arrival: Comments: triage [facility] ED NOTE HNO ID: [id number] Author: ANTHONY SOSA RN Service: ? Author Type: Registered Nurse Type: ED Notes Filed: 08/14/2023 13:18 Note Text: Patient arrives to ED from home, patient states chest pain started yesterday around 1999. Patient states pain has been constant since today. Pt states she was here in June and had multiple blood clots, pt takes blood thinners. Patient states she has cardiac history and POTS. Patient ambulatory and AANDOx3. [facility] ED PROV NOTEon 08-14-2023 ED PROV NOTE HNO ID: [id number] Author: SALUD PANCHAL DO Service: Emergency Medicine Author Type: Physician Type: ED Provider Notes Filed: 08/14/2023 23:26 Note Text: ED Provider Note Patient Name: Damari Rios : 1975 SERVICE DATE: 08/14/23 History Patient presents with: Chest Pain Patient is a 47-year-old female with a history of pulmonary embolism on Eliquis taking as prescribed presents to the emergency department for chest discomfort, shortness of breath that is gradually worsened over the past week. Patient states that it feels somewhat similar to when she had her prior pulmonary embolism, she has had centralized chest pressure/sharp pains and shortness of breath that acutely worsened over the past 2 days but has been present for at least a week now, states that she gets winded when walking and talking which is new for her, mild cough present, no fevers or chills, no leg swelling or calf pain, compliant with her blood thinning medication. Patient also complains of mild epigastric abdominal pain. No diarrhea or constipation, no hematochezia or melena. PAST MEDICAL HISTORY Diagnosis Date - Bipolar I disorder, most recent episode (or current) unspecified - Calculus of bile duct without mention of cholecystitis, with obstruction - Irritable bowel syndrome - Kidney stone - Known health problems: none 04/04/2021 - Other and unspecified ovarian cyst - Other cholecystitis - Seasonal allergies - Temporomandibular joint disorders, unspecified - Unspecified asthma(493.90) PAST SURGICAL HISTORY Procedure Laterality Date - ADENOIDECTOMY PRIMARY Adenoidectomy - COLONOSCOPY FLX DX W/COLLJ SPEC WHEN PFRMD 04/03/2012 pt discomfort, normal to transverse colon - ordered BE - EGD TRANSORAL BIOPSY SINGLE/MULTIPLE 04/03/2012 mild gastritis - HYSTERECTOMY HX 2017 - LAPAROSCOPY SURG CHOLECYSTECTOMY 1999 Cholecystectomy, lap - LIG/TRNSXJ FLP TUBE ABDL/VAG APPR UNI/BI 1998 - PAST SURGICAL HISTORY OF 2015 ureteral stent placed - REMOVAL OF OVARY/TUBE(S) 2022 RSO, LS - SLING 2022 - TONSILLECTOMY PRIMARY/SECONDARY Tonsillectomy FAMILY HISTORY Problem Relation Age of Onset - Hypertension Mother - Breast Cancer Paternal Grandmother lung - GI Paternal Grandfather - Diabetes Maternal Grandmother from lung ca - Diabetes Maternal Grandfather from unk cause - Colon Cancer Maternal Uncle age 43 - other (POTS) Sister - other (Lupus) Other niece - other (lupus) Other - Anesthesia Problems No Family History - Colon Polyps No Family History Social History Tobacco Use - Smoking status: Never - Smokeless tobacco: Never Vaping Use - Vaping Use: Never used Substance and Sexual Activity - Alcohol use: Yes Comment: very rare- maybe 2x/ year - Drug use: No - Sexual activity: Yes Partners: Male control/protection: Tubal Ligation ALLERGIES Allergen Reactions - Penicillins Anaphylaxis - Bactrim [Sulfametho* - Codeine Rash - Ultram [Tramadol Hc* Intolerance Review of Systems Constitutional: Negative for activity change, appetite change, fatigue and fever. Respiratory: Positive for cough and shortness of breath. Cardiovascular: Positive for chest pain. Negative for palpitations and leg swelling. Gastrointestinal: Positive for abdominal pain. Negative for blood in stool, diarrhea, nausea and vomiting. Genitourinary: Negative for difficulty urinating, dysuria, frequency, hematuria and urgency. Neurological: Negative for dizziness, weakness and headaches. All other systems reviewed and are negative. Physical Exam Vitals [08/14/23 1314] BP Pulse Temp Temp src Resp SpO2 Weight Height 187/99 73 36.6 ?C (97.8 ?F) Oral 18 96 % 73.5 kg (162 lb) -- Physical Exam Vitals and nursing note reviewed. Constitutional: General: She is not in acute distress. Appearance: Normal appearance. She is normal weight. She is not ill-appearing or toxic-appearing. Cardiovascular: Rate and Rhythm: Normal rate and regular rhythm. Pulses: Normal pulses. Heart sounds: Normal heart sounds. Pulmonary: Effort: Pulmonary effort is normal. No respiratory distress. Breath sounds: Normal breath sounds. No wheezing or rhonchi. Abdominal: General: Abdomen is flat. Bowel sounds are normal. Palpations: Abdomen is soft. Tenderness: There is no abdominal tenderness. Musculoskeletal: General: No deformity. Right lower leg: No edema. Left lower leg: No edema. Skin: General: Skin is warm and dry. Capillary Refill: Capillary refill takes less than 2 seconds. Neurological: Mental Status: She is alert. Diagnostic Testing ED Labs Ordered and Reviewed COMP METABOLIC PANEL - Abnormal; Notable for the following components: Result Value Ref Range Potassium 3.6 (*) 3.7 - 5.1 mmol/L All other components within normal limits MAGNESIUM BLD - Normal HCG QUAL BLD - Normal HIGH SENSITIVITY TROPONIN T (more content not included)... Normal [facility] ED Triage Noteon 08-14-2023 ED Triage Note HNO ID: [id number] Author: ELLIS MÉNDEZ DO Service: Emergency Medicine Author Type: Physician Type: ED Triage Notes Filed: 08/14/2023 14:08 Note Text: ED INTAKE NOTE Patient Name: Damari Rios Service Date: 08/14/23 BRIEF HPI: -constant chest pressure since yesterday -feels SOB -mild cough -grandchildren are sick -Hx of PE which feels similar BRIEF EXAM: Coughing No distress Heart RRR Lungs CTA No leg edema, erythema, or warmth INTAKE WORKUP: CBC,CMP, Mag, Trop EKG CT PE Clinical Impression ICD-10-CM 1. Chest pain, unspecified type R07.9 2. History of pulmonary embolism Z86.711 SIGNATURE: Ellis Méndez DO Normal [facility] FLUABV+SARS-CoV-2+RSV Pnl Re sp ANDRY+probeon 08-14-2023 FLUABV+SARS-CoV-2+RSV Pnl Resp ANDRY+probe COVID 19 RESULT: Not detected The method used is RT-PCR or an equivalent NAAT method. Reference Range(the expected result in uninfected individuals): Not detected INFLUENZA A PCR: Not detected INFLUENZA B PCR: Not detected RSV PCR: Not detected Normal [facility] Comment on above: Performed By: #### 9 5941-1 ####[facility] [id number] [place] [address] [place] HCG QUAL BLDon 08-14-2023 HCG, QUALITATIVE Negative Normal Negative [facility] Comment on above: Order Comment: Renetta la Type: BLOOD SPECIMENOrdering Facility: [facility] Address: [address] [place] [address] Performed By: #### H CG ####[facility] [id number] [place] [address] [place] HIGH SENSITIVITY TROPONIN To n 08-14-2023 Troponin T.cardiac High sensitivity method [Mass/Vol] <6 Normal <12 [facility] Comment on above: Order Comment: Renetta la Type: BLOOD SPECIMENOrdering Facility: [facility] Address: [address] [place] [address] Result Comment: When assessing risk for acute coronary syndromes: In patients undergoing blood draw greater than or equal to 2 hours from symptom onset, with history of very low to moderate risk and non-ischemic ECG, an initial hs-Troponin T less than 12 ng/L AND a 1 hour delta hs-Troponin T less than 3 ng/L should be considered very low risk for 30 day MACE. Performed By: #### 2 4323-8, 3040-3, HSTNT ####[facility]ORYCLIA [id number] [place] [address] [place] Troponin T.cardiac High sensitivity method [Mass/Vol] <6 Normal <12 [facility] Comment on above: Order Comment: Renetta la Type: BLOOD SPECIMENOrdering Facility: [facility] Address: [address] [place] [address] Result Comment: When assessing risk for acute coronary syndromes: In patients undergoing blood draw greater than or equal to 2 hours from symptom onset, with history of very low to moderate risk and non-ischemic ECG, an initial hs-Troponin T less than 12 ng/L AND a 1 hour delta hs-Troponin T less than 3 ng/L should be considered very low risk for 30 day MACE. Performed By: #### H STNT ####[facility]ORYCLIA [id number] [place] [address] [place] Troponin T.cardiac High sensitivity method [Mass/Vol] Normal [facility] Comment on above: Order Comment: Speci men Type: BLOOD SPECIMENOrdering Facility: [facility] Address: [address] [place] [address] Result Comment: Unab le to assay due to interference from hemolysis. Suggest reorder as clinically indicated. Performed By: #### 2 4323-8, HSTNT, ####[facility]ORATORYCLIA [id number] [place] [address] [place] Lipase SerPl-cCncon 08-14-19 24 Lipase [Catalytic activity/Vol] 20 U/L Normal 16- [facility] Comment on above: Order Comment: Speci men Type: BLOOD SPECIMENOrdering Facility: [facility] Address: [address] [place] [address] Performed By: #### 2 4323-8, 3040-3, HSTNT ####[facility]ORATORYCLIA [id number] [place] [address] [place] Magnesium SerPl-mCncon 08-14 Magnesium [Mass/Vol] 2.2 mg/dL Normal 1.7-2.3 [facility] Comment on above: Order Comment: Speci men Type: BLOOD SPECIMENOrdering Facility: [facility] Address: [address] [place] [address] Performed By: #### 2 4323-8, HSTNT, 86488-3 ####[facility]ORATORYCLIA [id number] [place] [id number] [place] Max 06-19-2023 MARLYN Telephone (PODCCP) DAMARI RIOS ([id number]) 1975 F Date Time Provider Department 06/19/23 ADRIEN ALONSO During your visit today, we recorded the following information about you: Allergies As of Date: 06/19/2023 Noted Allergy Reaction PENICILLINS 03/13/2005 10 - Anaphylaxis BACTRIM (SULFAMETHOXAZOLE-TRIM ETH*03/13/2005 CODEINE 03/13/2005 2 - Rash ULTRAM (TRAMADOL HCL) 03/13/2005 5 - Intolerance Date Reviewed: 06/10/2023 Reviewed by: Radha Bill RN - Fully Assessed Reason for Visit: Follow Up Phone Call [1020] Cmt: Post Discharge F/U - attempt made. No answer. Prescriptions as of 06/19/2023 - carvedilol (COREG) 3.125 mg tablet Take 1 tablet by mouth two times a day with meals. - apixaban (ELIQUIS) 5 mg tab(s) Take 1 tablet by mouth two times a day. - Nebulizer and Compressor For Neb Dispense one nebulizer with lifetime supplies - Nebulizers Lifetime supplies - tamsulosin (FLOMAX) 0.4 mg Take 1 capsule by mouth once daily. 30 minutes after the same meal each day. - mometasone-formoterol (DULERA) 200-5 mcg/actuation inhaler Inhale 2 Puffs as instructed two times a day. - pantoprazole DR (PROTONIX) 40 mg tablet Take 40 mg by mouth once daily. - famotidine (PEPCID) 40 mg tablet Take 40 mg by mouth daily at bedtime. - EPINEPHrine (EPIPEN) 0.3 mg/0.3 mL auto-injector Use as directed for bee sting - albuterol (PROVENTIL) 2.5 mg /3 mL (0.083 %) nebulizer solution Use 3 mL via nebulizer every 6 hours as needed for Wheezing/Shortness of Breath. Inhale over 5-15 minutes - albuterol HFA (PROAIR HFA) 90 mcg/actuation inhaler 2 Puffs every 6 hours as needed for Wheezing/Shortness of Breath. Take as directed Problem List As Of Date 06/19/2023 Noted Resolved Sprain of shoulder, right [S43.401A] 05/30/2005 BIPOLAR - MOST RECENTLY MIXED MILD [F31.61] 03/27/2006 04/16/2008 ANXIETY STATE NOS [F41.1] 03/27/2006 04/16/2008 PANIC DISORDER WITHOUT AGORAPHOBIA [F41.0] 03/27/2006 04/16/2008 JOINT PAIN-PELVIS [M25.559] 01/28/2008 PAIN IN JOINT, LOWER LEG [M25.569] 01/28/2008 Myofascial pain [M79.18] 06/14/2011 Lumbar sprain and strain 06/14/2011 Anxiety [F41.9] 02/15/2012 Asthma [J45.909] 02/15/2012 Shoulder pain [M25.519] 03/18/2012 Abdominal pain, epigastric [R10.13] 03/27/2012 Abdominal pain, unspecified site [R10.9] 04/03/2012 10/14/2013 Acute gastritis without mention of hemorrhage [*04/03/2012 Community acquired pneumonia [J18.9] 03/17/2015 07/24/2019 Bilateral pleural effusion [J90] 03/17/2015 07/24/2019 Dyspnea [R06.00] 03/17/2015 Sinus tachycardia [R00.0] 03/17/2015 PID (acute pelvic inflammatory disease) [N73.0] 03/17/2015 Asthma in adult [J45.909] 03/17/2015 Fatigue [R53.83] 03/17/2015 Dysphagia [R13.10] 03/17/2015 Cough [R05.9] 06/19/2019 Renal calculus, right [N20.0] 07/24/2019 Other pulmonary embolism without acute cor pulm*06/01/2023 Chest pain [R07.9] 06/02/2023 Hypertension [I10] 06/02/2023 History of pulmonary embolism [Z86.711] 06/02/2023 Acute hypoxic respiratory failure (HCC) [J96.01]06/04/2023 Abnormal stress test [R94.39] 06/07/2023 Postoperative state [Z98.890] 06/07/2023 Abdominal pain [R10.9] 06/07/2023 Moderate persistent asthma with exacerbation [J*06/11/2023 Encounter Status:Closed by ADRIEN ALONSO on 06/19/23 Normal [facility] ALLIED HEALTHon 06-11-2023 ALLIED HEALTH HNO ID: [id number] Author: Lydia Mcgraw Chaplain Service: ? Author Type: Artistic Director Type: Allied Health Filed: 06/11/2023 12:00 PM Note Text: SPIRITUALCARE Spiritual Care Visit- Brief Note Name: Damari Rios Date: June 11, 2023 Notes: visited briefly with patient, who stated she was eager to be discharged (she is hoping today) so she can get back to her babies -- 15 grandchildren and two more (both boys) on the way. Patient stated she had a lot to do before the holidays. No spiritual needs noted. wished her -- and her family -- well. Artistic Director Signature: Chaplain Jill To contact the Spiritual Care Department: Please call [phone] [place] [phone]. Thank you for the opportunity to be of service. This is an electronically created document. IF PRINTED, PLEASE DO NOT REMOVE FROM THE CHART OR MODIFY PRINTED COPY. Normal [facility] Basic metabolic 2000 panelon 06-11-2023 Anion gap [Moles/Vol] 12 mmol/L Normal 9-18 [facility] Comment on above: Order Comment: Speci men Type: BLOOD SPECIMEN [facility] Address: [place] [address] Performed By: #### 5 8410-2 #### [facility] CLIA [id number] [address] [place] [address] [place] Calcium [Mass/Vol] 9.1 mg/dL Normal 8.5-10.2 [facility] Comment on above: Order Comment: Speci men Type: BLOOD SPECIMEN [facility] Address: [address] [place] [address] Performed By: #### 5 8410-2 #### [facility] CLIA [id number] [address] [place] [address] [place] Chloride [Moles/Vol] 101 mmol/L Normal 97-105 [facility] Comment on above: Order Comment: Speci men Type: BLOOD SPECIMEN [facility] Address: [address] [place] [address] Performed By: #### 5 8410-2 #### [facility] CLIA [id number] [address] [place] [address] [place] CO2 [Moles/Vol] 24 mmol/L Normal 22-30 [facility] Comment on above: Order Comment: Speci men Type: BLOOD SPECIMEN [facility] Address: [address] [place] [address] Performed By: #### 5 8410-2 #### [facility] CLIA [id number] [address] [place] [address] [place] Creatinine [Mass/Vol] 0.95 mg/dL Normal 0.58-0.96 [facility] Comment on above: Order Comment: Speci men Type: BLOOD SPECIMEN [facility] Address: [address] [place] [address] Performed By: #### 5 8410-2 #### [facility] CLIA [id number] [address] [place] [address] [place] Creatinine and Glomerular filtration rate.predicted panel (S/P/Bld) 75 mL/min/1.73m??? Normal >=60 [facility] Comment on above: Order Comment: Speci men Type: BLOOD SPECIMEN [facility] Address: [address] [place] [address] Result Comment: [facility] Glomerular Filtration Rate (eGFR) is calculated using the 2020 CKD-EPI creatinine equation. This equation utilizes serum creatinine, sex, and age as parameters. The creatinine assay has traceable calibration to isotope dilution-mass spectrometry. Refer to KDIGO guidelines for clinical interpretation. In patients with unstable renal function, e.g. those with acute kidney injury, the eGFR may not accurately reflect actual GFR. Performed By: #### 5 8410-2 #### [facility] [place] [id number] [address] [place] [address] [place] Glucose [Mass/Vol] 103 mg/dL High 74-99 [facility] Comment on above: Order Comment: Renetta la Type: BLOOD SPECIMEN [facility] Address: [address] [place] [address] Result Comment: The [place] [employer] (ADA) provides guidance for cutoff values for fasting glucose and random glucose. The ADA defines fasting as no caloric intake for at least 8 hours. Fasting plasma glucose results between 100 to 125 mg/dL indicate increased risk for diabetes (prediabetes). Fasting plasma glucose results greater than or equal to 126 mg/dL meet the criteria for diagnosis of diabetes. In the absence of unequivocal hyperglycemia, results should be confirmed by repeat testing. In a patient with classic symptoms of hyperglycemia or hyperglycemic crisis, random plasma glucose results greater than or equal to 200 mg/dL meet the criteria for diagnosis of diabetes. Reference: Standards of Medical Care in Diabetes 2016, [place] [employer]. Diabetes Care. 2016.39(Suppl 1). Performed By: #### 5 8410-2 #### [facility] [place] [id number] [address] [place] [address] [place] Potassium [Moles/Vol] 3.9 mmol/L Normal 3.7-5.1 [facility] Comment on above: Order Comment: Renetta la Type: BLOOD SPECIMEN [facility] Address: [address] [place] [address] Performed By: #### 5 8410-2 #### [facility] [place] [id number] [address] [place] [address] [place] Sodium [Moles/Vol] 137 mmol/L Normal 136-144 [facility] Comment on above: Order Comment: Renetta la Type: BLOOD SPECIMEN [facility] Address: [address] [place] [address] Performed By: #### 5 8410-2 #### [facility] CLIA [id number] [address] [place] [address] [place] Urea nitrogen [Mass/Vol] 19 mg/dL Normal 7-21 [facility] Comment on above: Order Comment: Speci men Type: BLOOD SPECIMEN [facility] Address: [address] [place] [address] Performed By: #### 5 8410-2 #### [facility] CLIA [id number] [address] [place] [address] [place] CBC panel Auto (Bld)on 06-11 Erythrocyte distribution width (RBC) [Ratio] 12.8 % Normal 11.5-15.0 [facility] Comment on above: Order Comment: Speci men Type: BLOOD SPECIMENOrdering Facility: [facility] Address: [address] [place] [address] Performed By: #### 5 8410-2 ####[facility] [id number] [address] [place] Hematocrit (Bld) [Volume fraction] 40.4 % Normal 36.0-46.0 [facility] Comment on above: Order Comment: Speci men Type: BLOOD SPECIMENOrdering Facility: [facility] Address: [address] [place] [address] Performed By: #### 5 8410-2 ####[facility]ORYCLIA [id number] [place] [address] [place] Hemoglobin (Bld) [Mass/Vol] 13.9 g/dL Normal 11.5-15.5 [facility] Comment on above: Order Comment: Speci men Type: BLOOD SPECIMENOrdering Facility: [facility] Address: [address] [place] [address] Performed By: #### 5 8410-2 ####[facility] [id number] [place] [address] [place] MCH (RBC) [Entitic mass] 31.0 pg Normal 26.0-34.0 [facility] Comment on above: Order Comment: Speci men Type: BLOOD SPECIMENOrdering Facility: [facility] Address: [address] [place] [address] Performed By: #### 5 8410-2 ####[facility]IA [id number] [address] [place] MCHC (RBC) [Mass/Vol] 34.4 g/dL Normal 30.5-36.0 [facility] Comment on above: Order Comment: Speci men Type: BLOOD SPECIMENOrdering Facility: [facility] Address: [address] [place] [address] Performed By: #### 5 8410-2 ####[facility]CLIA [id number] [place] [address] [place] MCV (RBC) [Entitic vol] 90.2 fL Normal 80.0-100.0 [facility] Comment on above: Order Comment: Speci men Type: BLOOD SPECIMENOrdering Facility: [facility] Address: [address] [place] [address] Performed By: #### 5 8410-2 ####[facility]CLIA [id number] [address] [place] Nucleated RBC (Bld) [#/Vol] 10*3/uL Normal <0.01 [facility] Comment on above: Order Comment: Speci men Type: BLOOD SPECIMENOrdering Facility: [facility] Address: [address] [place] [address] Performed By: #### 5 8410-2 ####[facility]CLIA [id number] [place] [address] [place] Platelet mean volume (Bld) [Entitic vol] 8.6 fL Low 9.0-12.7 [facility] Comment on above: Order Comment: Speci men Type: BLOOD SPECIMENOrdering Facility: [facility] Address: [address] [place] [address] Performed By: #### 5 8410-2 ####[facility] [id number] [place] [address] [place] Platelets (Bld) [#/Vol] 321 10*3/uL Normal 150-400 [facility] Comment on above: Order Comment: Speci men Type: BLOOD SPECIMENOrdering Facility: [facility] Address: [address] [place] [address] Performed By: #### 5 8410-2 ####[facility]ORYCLIA [id number] [place] [address] [place] RBC (Bld) [#/Vol] 4.48 10*6/uL Normal 3.90-5.20 [facility] Comment on above: Order Comment: Speci men Type: BLOOD SPECIMENOrdering Facility: [facility] Address: [address] [place] [address] Performed By: #### 5 8410-2 ####[facility]ORYCLIA [id number] [place] [address] [place] WBC (Bld) [#/Vol] 8.72 10*3/uL Normal 3.70-11.00 [facility] Comment on above: Order Comment: Speci men Type: BLOOD SPECIMENOrdering Facility: [facility] Address: [address] [place] [address] Performed By: #### 5 8410-2 ####[facility]ORYCLIA [id number] [address] [place] CNDSon 06-11-2023 CNDS HNO ID: [id number] Author: Zainab Croft V, MD Service: General Internal Medicine Author Type: Physician Type: Discharge Summary Filed: 06/12/2023 10:30 PM Note Text: DISCHARGE SUMMARY PATIENT NAME: Damari Rios Code Status: Not on file Highest Readmission Risk Score: 20 The 30 day readmissions risk score is derived from an internally validated risk model which evaluates patient level characteristics, utilization history, medication orders and lab results up until the day of discharge. Patients with a score of 40 or above are considered highest risk for readmission. Specific patient level drivers will be listed at the bottom of the summary. Admission Information Admission Information ADMIT DATE: 06/01/2023 DISCHARGE DATE: 06/11/23 MY DOCTORS AND MEDICAL TEAM: My Main Hospital Doctor: Zainab Croft V, MD Primary Care Provider: Kimberly Murguia MD My Medical Team Members: Treatment Team: Attending Provider: Zainab Croft V, MD Consulting: Autumn Keller MD Consulting: Adriana Martinez MD Nurse Practitioner: Anya Howard APRN.CNP MY CONDITION AT DISCHARGE: Stable REASON I WAS IN THE HOSPITAL: Pulmonary embolism SUMMARY OF WHAT HAPPENED WHILE I WAS IN THE HOSPITAL: You were admitted to the hospital for pulmonary embolism. Your care was managed by pulmonology, cardiology, vascular medicine and gynecology. Pulmonology was consulted for management of the pulmonary embolism, asthma and low oxygen. You were given a prednisone burst and breathing treatments; you were started on oxygen while in the hospital however you had a desaturation study and you will not require oxygen when discharged. Continue on Eliquis for 3 months. Please follow-up outpatient with pulmonology. Cardiology was consulted for the abnormal stress test and chest pain; you had a left heart catheterization done on 06/08. Vascular medicine was consulted for management of the pulmonary embolism and blood thinner-you are started on Eliquis and are to continue on it for 3 months-please follow-up outpatient with vascular medicine. LATIN PROFESSOR was consulted for follow-up after a salpingo-oophorectomy -no further evaluation was done and you are to follow-up outpatient with LATIN PROFESSOR. Please also follow-up with your primary care doctor. OTHER PROBLEMS/DIAGNOSIS: Principal Problem: Other pulmonary embolism without acute cor pulmonale (HCC) Active Problems: Dyspnea Chest pain Hypertension History of pulmonary embolism Acute hypoxic respiratory failure (HCC) Abnormal stress test Postoperative state Abdominal pain Moderate persistent asthma with exacerbation Resolved Problems: * No resolved hospital problems. * OPERATIONS PERFORMED WHILE IN THE HOSPITAL: None IMPORTANT TEST/PROCEDURES: -X-ray chest -CT chest, CT abdomen -Ultrasound DVT -X-ray abdomen -Stress test -CT flank -MRI lumbar -Echo -Heart catheterization TEST RESULTS NOT AVAILABLE AT THIS TIME: No pending results Discharge Disposition Discharge Disposition: Home With Self Care Activity When You Leave the Hospital Resume pre-hospital activity Diet Instructions Resume your pre-hospital diet Call Your Doctor If You have a severe headache You have lightheadedness, fainting, or confusion You have persistent nausea/vomiting over 24 hours You have persistent or heavy bleeding You have swollen glands or cold and clammy skin Your temperature is greater than 101F Additional Provider to Provider Information: No notes on file Malnutrition Diagnosis supported by Registered Dietitian:Mild Protein-Calorie Malnutrition Based on: Insufficient Energy Intake Assessment: I have reviewed the result of the malnutrition assessment and plan and agree Plan: Diet, Supplements, Medications Treatment Team: Attending Provider: Zainab Croft V, MD Consulting: Autumn Keller MD Consulting: Adriana Martinez MD Nurse Practitioner: Anya Howard APRN.CNP Transitions of Care Critical Issues: NEW BASELINE FOR PATIENT: stable LABS AND PROCEDURES PENDING AT DISCHARGE: No pending results. INCIDENTAL OR ACTIONABLE FINDING (Last Refresh: 06/11/2023 4:19 PM) Test(s): CT FLANK WO IVCON FOLLOW-UP APPOINTMENTS ALREADY SCHEDULED WITH A [facility] PROVIDER: Future Appointments Date Time Provider Department Center 07/24/2023 11:00 AM PULM LAB [address] AT 07/24/2023 11:15 AM PULM LAB [facility] AT 07/24/2023 11:40 AM Adriana Martinez MD [facility] AT Discharge Information Row Name ED to Hosp-Admission (Current) from 06/01/[address] Medical Follow-Up Appointment Specialty Medline: Free Physician Referral Service (Please call if you would like to get established with a [facility] PCP) ALLERGIES Allergen Reactions Penicillins Anaphylaxis Bactrim [Sulfametho* Codeine Rash Ultram [Tramadol Hc* Intolerance DISCHARGE MEDICATION (more content not included)... Normal [facility] CONSULT PROGon 06-11-2023 CONSULT PROG HNO ID: [id number] Author: Remedios Momin APRN.BEN Service: Pulmonary Disease Author Type: Nurse Practitioner Type: Consult Progress Note Filed: 06/11/2023 2:18 PM Note Text: .PULMONARY PROGRESS NOTE PATIENT NAME: Damari Rios DATE OF SERVICE: June 11, 2023 ASSESSMENT Acute hypoxic respiratory failure Pulmonary embolism without acute cor pulmonale -was weaned off O2 -provoked -no RH strain on CT , on echocardiogram RVSP 19 mmHg -LE.neg for DVT -on Eliquis Asthma exacerbation- POA -Improved. Pt having chronic dyspnea -started on Dulera 200-5,albuterol prn, -completed azithromycin, s/p prednisone Chest pain /NSTEMI -status post [facility] 06/08, no stenosis, LVEF 55% PULMONARY PLAN Continue AC Observe off steroids can continue albuterol TID and Dulera BID Cards consulted by attending Pt to f/u as OP with Pulm- appointment requested - will order a nebulizer machine and pt can be dc on Dulera and albuterol Pulm to s/o at this time . Please call with questions or concerns SUBJECTIVE/INTERVAL HISTORY Pt states she has some heart racing and SOB with activities but denies chest tightness, wheezing currently. She is currently on RA. MEDICATIONS Current Facility-Administered Medications Medication Dose Route Frequency carvedilol 3.125 mg tab(s) (COREG) 3.125 mg ORAL BID w MEALS albuterol 2.5 mg /3 mL (0.083 %) 2.5 mg (PROVENTIL) 2.5 mg INHALATION q 4 H while awake oxyCODONE IR 5 mg tab(s) (ROXICODONE) 5 mg ORAL q 8 H PRN acetaminophen 650 mg tab(s) (TYLENOL) 650 mg ORAL q 6 H PRN famotidine 40 mg tab(s) (PEPCID) 40 mg ORAL BID apixaban 5 mg tab(s) (ELIQUIS) 5 mg ORAL BID mometasone-formoterol 200-5 mcg/actuation 2 Puff inhaler (DULERA) 2 Puff INHALATION BID ondansetron (PF) 4 mg injection (ZOFRAN) 4 mg INTRAVENOUS q 6 H PRN docusate sodium 100 mg cap(s) (COLACE) 100 mg ORAL BID polyethylene glycol 3350 17 g packet 17 g ORAL DAILY lidocaine 4 % 1 Patch (SALONPAS) 1 Patch TRANSDERMAL DAILY And lidocaine patch - REMOVE OTHER AT BEDTIME And lidocaine - VERIFY PATCH OTHER q 8 H calcium carbonate 1,000 mg chewable tab(s) (TUMS) 1,000 mg ORAL TID PRN iv contrast (radiology procedure) INTRAVENOUS DIRECTED PRN tamsulosin 0.4 mg cap(s) (FLOMAX) 0.4 mg ORAL DAILY albuterol HFA 90 mcg/actuation 2 Puff (PROVENTIL HFA, VENTOLIN HFA) 2 Puff OTHER q 6 H PRN melatonin 3 mg tab(s) 3 mg ORAL DAILY (8 PM) NaCl 0.9% iv flush bag 20 mL INTRAVENOUS PRN LABS: CBC: Recent Labs 06/11/23 0559 WBC 8.72 RBC 4.48 HB 13.9 HCT 40.4 PLT 321 MCV 90.2 MCH 31.0 MPV 8.6* CMP: Recent Labs 06/11/23 0559 NA 137 K 3.9 CHLOR 101 CO2 24 BUN 19 CREAT 0.95 GLUC 103* CA 9.1 ANION 12 OBJECTIVE BP 126/75 Pulse 79 Temp 36.3 ?C (97.3 ?F) (Oral) Resp 18 Ht 162.6 cm (5' 4 ) Wt 73.5 kg (162 lb) LMP 07/24/2016 (Approximate) SpO2 100% BMI 27.81 kg/m? PHYSICAL EXAMINATION: General - no acute distress HEENT-normocephalic, atraumatic, supple neck, conjunctiva white Lungs - no rhonchi, wheeze or rales Heart - S1S2, RRR, no ectopy noted with auscultation Abd - non-tender, +BS Skin - warm,non-diaphoretic Extremities - no edema Neuro - alert, Moves all extremities grossly, speech is clear and appropriate Data: Reviewed most recent imaging and labs *Some of the elements have been copied from previous pulmonary note dated 06/10/23. The elements have been updated and reflects current decision making from today, 06/10/23. ~~~~~~~~~~~~~~~~~~~~~~ ~~~~~~~~~~~~~~~~~~~~~~ ~~~~~~~~~ HUSSEIN Signature: Remedios Momin [employer] Normal [facility] CBC panel Auto (Bld)on 06-10 Erythrocyte distribution width (RBC) [Ratio] 12.8 % Normal 11.5-15.0 [facility] Comment on above: Order Comment: Speci men Type: BLOOD SPECIMEN Ordering Facility: [facility] Address: [address] [place] [address] Performed By: #### 5 8410-2 #### [facility] CLIA [id number] [address] [place] [address] [place] Hematocrit (Bld) [Volume fraction] 40.7 % Normal 36.0-46.0 [facility] Comment on above: Order Comment: Speci men Type: BLOOD SPECIMEN Ordering Facility: [facility] Address: [address] [place] [address] Performed By: #### 5 8410-2 #### [facility] CLIA [id number] [address] [place] [address] [place] Hemoglobin (Bld) [Mass/Vol] 14.1 g/dL Normal 11.5-15.5 [facility] Comment on above: Order Comment: Speci men Type: BLOOD SPECIMEN Ordering Facility: [facility] Address: [address] [place] [address] Performed By: #### 5 8410-2 #### [facility] CLIA [id number] [address] [place] [address] [place] MCH (RBC) [Entitic mass] 30.9 pg Normal 26.0-34.0 [facility] Comment on above: Order Comment: Speci men Type: BLOOD SPECIMEN Ordering Facility: [facility] Address: [address] [place] [address] Performed By: #### 5 8410-2 #### [facility] CLIA [id number] [address] [place] [address] [place] MCHC (RBC) [Mass/Vol] 34.6 g/dL Normal 30.5-36.0 [facility] Comment on above: Order Comment: Speci men Type: BLOOD SPECIMEN Ordering Facility: [facility] Address: [address] [place] [address] Performed By: #### 5 8410-2 #### [facility] CLIA [id number] [address] [place] [address] [place] MCV (RBC) [Entitic vol] 89.1 fL Normal 80.0-100.0 [facility] Comment on above: Order Comment: Speci men Type: BLOOD SPECIMEN Ordering Facility: [facility] Address: [address] [place] [address] Performed By: #### 5 8410-2 #### [facility] CLIA [id number] [address] [place] [address] [place] Nucleated RBC (Bld) [#/Vol] 10*3/uL Normal <0.01 [facility] Comment on above: Order Comment: Speci men Type: BLOOD SPECIMEN Ordering Facility: [facility] Address: [address] [place] [address] Performed By: #### 5 8410-2 #### [facility] CLIA [id number] [address] [place] [address] [place] Platelet mean volume (Bld) [Entitic vol] 8.4 fL Low 9.0-12.7 [facility] Comment on above: Order Comment: Speci men Type: BLOOD SPECIMEN Ordering Facility: [facility] Address: [address] [place] [address] Performed By: #### 5 8410-2 #### [facility] CLIA [id number] [address] [place] [address] [place] Platelets (Bld) [#/Vol] 317 10*3/uL Normal 150-400 [facility] Comment on above: Order Comment: Speci men Type: BLOOD SPECIMEN Ordering Facility: [facility] Address: [address] [place] [address] Performed By: #### 5 8410-2 #### [facility] CLIA [id number] [address] [place] [address] [place] RBC (Bld) [#/Vol] 4.57 10*6/uL Normal 3.90-5.20 [facility] Comment on above: Order Comment: Speci men Type: BLOOD SPECIMEN Ordering Facility: [facility] Address: [address] [place] [address] Performed By: #### 5 8410-2 #### [facility] CLIA [id number] [address] [place] [address] [place] WBC (Bld) [#/Vol] 10.76 10*3/uL Normal 3.70-11.00 [facility] Comment on above: Order Comment: Speci men Type: BLOOD SPECIMEN Ordering Facility: [facility] Address: [address], [place] [address] Performed By: #### 5 8410-2 #### [facility] CLIA [id number] [address] [id number] [place] CONSULT PROGon 06-10-2023 CONSULT PROG HNO ID: [id number] Author: Jaquan Muñoz, [place].[employer] Service: Pulmonary Disease Author Type: Nurse Practitioner Type: Consult Progress Note Filed: 06/10/2023 9:45 AM Note Text: . PULMONARY PROGRESS NOTE PATIENT NAME: Damari Rios DATE OF SERVICE: June 10, 2023 *Some elements have been copied from Pulmonary/critical care note dated 06/09/23. The elements have been updated and reflect current decision making from today, 06/10/23. ASSESSMENT Pulmonary embolism without acute cor pulmonale -provoked -no RH strain on CT , on echocardiogram RVSP 19 mmHg -LE.neg for DVT -on eliquis Asthma exacerbation -started on dulera 200-5,albuterol prn, -completed azithromycin, prednisone 40 mg x 5 D Chest pain /NSTEMI -status post [facility] 06/08, no stenosis, LVEF 55% Acute hypoxic respiratory failure -was weaned off O2, -placed back on last night, this morning 06/10 followed on room air at 98% -complains of orthopnea, ? Fluid related from heart cath Plan: Monitor O2, currently on room air Scheduled bronchodilators Diuresis per primary Complete azithromycin Prednisone 40 mg x 5 days Recommend outpatient follow-up with pulmonary. SUBJECTIVE/INTERVAL HISTORY Resting in bed in no distress with no oxygen on. SpO2 at 98%. She reports slight SOB with ambulation to the bathroom. Denies wheezing but has slight dry cough. MEDICATIONS Current Facility-Administered Medications Medication Dose Route Frequency albuterol 2.5 mg /3 mL (0.083 %) 2.5 mg (PROVENTIL) 2.5 mg INHALATION q 4 H while awake oxyCODONE IR 5 mg tab(s) (ROXICODONE) 5 mg ORAL q 8 H PRN acetaminophen 650 mg tab(s) (TYLENOL) 650 mg ORAL q 6 H PRN famotidine 40 mg tab(s) (PEPCID) 40 mg ORAL BID apixaban 5 mg tab(s) (ELIQUIS) 5 mg ORAL BID mometasone-formoterol 200-5 mcg/actuation 2 Puff inhaler (DULERA) 2 Puff INHALATION BID ondansetron (PF) 4 mg injection (ZOFRAN) 4 mg INTRAVENOUS q 6 H PRN sodium chloride 0.9 % (flush) 2-10 mL (BD POSIFLUSH) 2-10 mL INTRAVENOUS DIRECTED PRN And perflutren lipid microspheres 1.1 mg/mL 1.3 mL injection (DEFINITY) 1.3 mL INTRAVENOUS DIRECTED PRN docusate sodium 100 mg cap(s) (COLACE) 100 mg ORAL BID polyethylene glycol 3350 17 g packet 17 g ORAL DAILY lidocaine 4 % 1 Patch (SALONPAS) 1 Patch TRANSDERMAL DAILY And lidocaine patch - REMOVE OTHER AT BEDTIME And lidocaine - VERIFY PATCH OTHER q 8 H calcium carbonate 1,000 mg chewable tab(s) (TUMS) 1,000 mg ORAL TID PRN carvedilol 6.25 mg tab(s) (COREG) 6.25 mg ORAL BID w MEALS amLODIPine 5 mg tab(s) (NORVASC) 5 mg ORAL DAILY iv contrast (radiology procedure) INTRAVENOUS DIRECTED PRN tamsulosin 0.4 mg cap(s) (FLOMAX) 0.4 mg ORAL DAILY albuterol HFA 90 mcg/actuation 2 Puff (PROVENTIL HFA, VENTOLIN HFA) 2 Puff OTHER q 6 H PRN melatonin 3 mg tab(s) 3 mg ORAL DAILY (8 PM) NaCl 0.9% iv flush bag 20 mL INTRAVENOUS PRN LABS: CBC: Recent Labs 06/10/23 0536 WBC 10.76 RBC 4.57 HB 14.1 HCT 40.7 PLT 317 MCV 89.1 MCH 30.9 MPV 8.4* OBJECTIVE BP 89/63 Pulse 70 Temp 36.4 ?C (97.5 ?F) (Oral) Resp 18 Ht 162.6 cm (5' 4 ) Wt 73.5 kg (162 lb) LMP 07/24/2016 (Approximate) SpO2 97% BMI 27.81 kg/m? Temp (24hrs), Av.5 ?C (97.7 ?F), Min:36.3 ?C (97.3 ?F), Max:36.7 ?C (98.1 ?F) General - awake, NAD, on room air Eyes - PERRLA, EOMI ENT - trachea midline, no JVD, wheezing, or stridor. MMM Lungs -CTA, no wheezing, rhonchi, rales Heart - RRR, no murmur, gallop, or rub Abd - Soft, NT, BS X4 Skin - warm and dry Extremities - no edema, cyanosis or clubing Neuro - alert and conversational Data: Last CT Chest - Impression Only CT CHEST W IVCON PE Exam End: 06/01/2023 5:49 PM (Final result) Impression: IMPRESSION: Multiple segmental pulmonary emboli in the lingula and left lower lobe as described. No right heart strain. Trace bilateral pleural effusions. Tiny foci of pneumoperitoneum the right upper quadrant likely related to recent surgery. CRITICAL TEST/RESULTS: CRITICAL TEST/RESULTS: Acuity: Critical... Last XR Chest - Impression Only XR CHEST 1V FRONTAL PORT Exam End: 06/06/2023 10:47 AM (Final result) Impression: IMPRESSION: Lines, tubes, and devices: None. Lungs and pleura: No focal infiltrate. No pleural effusion or pneumothorax. Cardiomediastinal silhouette: Stable cardiomediastinal silhouette. ... ~~~~~~~~~~~~~~~~~~~~~~ ~~~~~~~~~~~~~~~~~~~~~~ ~~~~~~~~~ HUSSEIN Signature: Jaquan Muñoz CNP Normal [facility] CBC panel Auto (Bld)on 06-09 Erythrocyte distribution width (RBC) [Ratio] 12.9 % Normal 11.5-15.0 [facility] Comment on above: Order Comment: Speci men Type: BLOOD SPECIMEN Ordering Facility: [facility] Address: [address] [place] [address] Performed By: #### 5 8410-2 #### [facility] CLIA [id number] [address] [id number] [place] Hematocrit (Bld) [Volume fraction] 39.3 % Normal 36.0-46.0 [facility] Comment on above: Order Comment: Speci men Type: BLOOD SPECIMEN Ordering Facility: [facility] Address: [address] [place] [address] Performed By: #### 5 8410-2 #### [facility] CLIA [id number] [address] [place] [address] [place] Hemoglobin (Bld) [Mass/Vol] 13.1 g/dL Normal 11.5-15.5 [facility] Comment on above: Order Comment: Speci men Type: BLOOD SPECIMEN Ordering Facility: [facility] Address: [address] [place] [address] Performed By: #### 5 8410-2 #### [facility] CLIA [id number] [address] [place] [address] [place] MCH (RBC) [Entitic mass] 30.8 pg Normal 26.0-34.0 [facility] Comment on above: Order Comment: Speci men Type: BLOOD SPECIMEN Ordering Facility: [facility] Address: [address] [place] [address] Performed By: #### 5 8410-2 #### [facility] CLIA [id number] [address] [place] [address] [place] MCHC (RBC) [Mass/Vol] 33.3 g/dL Normal 30.5-36.0 [facility] Comment on above: Order Comment: Speci men Type: BLOOD SPECIMEN Ordering Facility: [facility] Address: [address] [place] [address] Performed By: #### 5 8410-2 #### [facility] CLIA [id number] [address] [place] [address] [place] MCV (RBC) [Entitic vol] 92.5 fL Normal 80.0-100.0 [facility] Comment on above: Order Comment: Speci men Type: BLOOD SPECIMEN Ordering Facility: [facility] Address: [address] [place] [address] Performed By: #### 5 8410-2 #### [facility] CLIA [id number] [address] [place] [address] [place] Nucleated RBC (Bld) [#/Vol] 10*3/uL Normal <0.01 [facility] Comment on above: Order Comment: Speci men Type: BLOOD SPECIMEN Ordering Facility: [facility] Address: [address] [place] [address] Performed By: #### 5 8410-2 #### [facility] CLIA [id number] [address] [place] [address] [place] Platelet mean volume (Bld) [Entitic vol] 8.6 fL Low 9.0-12.7 [facility] Comment on above: Order Comment: Speci men Type: BLOOD SPECIMEN Ordering Facility: [facility] Address: [address] [place] [address] Performed By: #### 5 8410-2 #### [facility] CLIA [id number] [address] [place] [address] [place] Platelets (Bld) [#/Vol] 325 10*3/uL Normal 150-400 [facility] Comment on above: Order Comment: Speci men Type: BLOOD SPECIMEN Ordering Facility: [facility] Address: [address] [place] [address] Performed By: #### 5 8410-2 #### [facility] CLIA [id number] [address] [place] [address] [place] RBC (Bld) [#/Vol] 4.25 10*6/uL Normal 3.90-5.20 [facility] Comment on above: Order Comment: Speci men Type: BLOOD SPECIMEN Ordering Facility: [facility] Address: [address] [place] [address] Performed By: #### 5 8410-2 #### [facility] CLIA [id number] [address] [place] [address] [place] WBC (Bld) [#/Vol] 8.70 10*3/uL Normal 3.70-11.00 [facility] Comment on above: Order Comment: Speci men Type: BLOOD SPECIMEN Ordering Facility: [facility] Address: [address] [id number] Performed By: #### 5 8410-2 #### [facility] [id number] [address] [place] [address] [place] CONSULT [facility] 06-09-2023 CONSULT PROG HNO ID: [id number] Author: Brodie Henley MD Service: Pulmonary Disease Author Type: Physician Type: Consult Progress Note Filed: 06/09/2023 2:23 PM Note Text: SERVICE DATE: 06/09/2023 SERVICE TIME: 1400 SERVICE DEPARTMENT: PULMONARY ASSESSMENT AND PLAN: Pulmonary embolism without acute cor pulmonale -provoked -no RH strain on CT , on echocardiogram RVSP 19 mmHg -LE.neg for DVT -on eliquis Asthma exacerbation -started on dulera 200-5,albuterol prn, -completed azithromycin, prednisone 40 mg x 5 D Chest pain /NSTEMI -status post [facility] 06/08, no stenosis, LVEF 55% Acute hypoxic respiratory failure -was weaned off O2, -placed back on last night -complains of orthopnea, ? Fluid related from heart cath Plan: Scheduled bronchodilators 1 dose of lasix INTERVAL HPI: Damari Rios is a 47 year old female last night felt she was having more short of breath, could not lay flat. Continued through today. Asked for 1 aerosol today Hs dry cough unchanged, no chest pain MEDICATIONS: Current Facility-Administered Medications Medication Dose Route Frequency oxyCODONE IR 5 mg tab(s) (ROXICODONE) 5 mg ORAL q 8 H PRN acetaminophen 650 mg tab(s) (TYLENOL) 650 mg ORAL q 6 H PRN famotidine 40 mg tab(s) (PEPCID) 40 mg ORAL BID iv contrast (radiology procedure) INTRAVENOUS DIRECTED PRN mometasone-formoterol 200-5 mcg/actuation 2 Puff inhaler (DULERA) 2 Puff INHALATION BID ondansetron (PF) 4 mg injection (ZOFRAN) 4 mg INTRAVENOUS q 6 H PRN sodium chloride 0.9 % (flush) 2-10 mL (BD POSIFLUSH) 2-10 mL INTRAVENOUS DIRECTED PRN And perflutren lipid microspheres 1.1 mg/mL 1.3 mL injection (DEFINITY) 1.3 mL INTRAVENOUS DIRECTED PRN docusate sodium 100 mg cap(s) (COLACE) 100 mg ORAL BID polyethylene glycol 3350 17 g packet 17 g ORAL DAILY lidocaine 4 % 1 Patch (SALONPAS) 1 Patch TRANSDERMAL DAILY And lidocaine patch - REMOVE OTHER AT BEDTIME And lidocaine - VERIFY PATCH OTHER q 8 H calcium carbonate 1,000 mg chewable tab(s) (TUMS) 1,000 mg ORAL TID PRN carvedilol 6.25 mg tab(s) (COREG) 6.25 mg ORAL BID w MEALS amLODIPine 5 mg tab(s) (NORVASC) 5 mg ORAL DAILY iv contrast (radiology procedure) INTRAVENOUS DIRECTED PRN tamsulosin 0.4 mg cap(s) (FLOMAX) 0.4 mg ORAL DAILY albuterol 2.5 mg /3 mL (0.083 %) 2.5 mg (PROVENTIL) 2.5 mg INHALATION q 6 H PRN albuterol HFA 90 mcg/actuation 2 Puff (PROVENTIL HFA, VENTOLIN HFA) 2 Puff OTHER q 6 H PRN melatonin 3 mg tab(s) 3 mg ORAL DAILY (8 PM) NaCl 0.9% iv flush bag 20 mL INTRAVENOUS PRN OBJECTIVE PHYSICAL EXAM: Patient Vitals for the past 48 hrs: BP Temp Temp src Pulse Resp SpO2 Height Weight 06/09/23 1157 -- -- -- 67 20 100 % -- -- 06/09/23 1156 -- 36.3 ?C (97.3 ?F) -- -- -- -- -- -- 06/09/23 1150 -- -- -- 69 20 90 % -- -- 06/09/23 1059 -- -- -- 67 -- 92 % -- -- 06/09/23 1010 -- -- -- (!) 57 -- 94 % -- -- 06/09/23 0743 114/87 36.6 ?C (97.9 ?F) Oral 90 18 (!) 86 % -- -- 06/09/23 0507 116/62 36.6 ?C (97.9 ?F) Oral (!) 58 16 97 % -- -- 06/09/23 0101 113/69 36.5 ?C (97.7 ?F) Oral 71 18 94 % -- -- 06/08/23 2113 119/76 36.5 ?C (97.7 ?F) Oral 72 18 96 % -- -- 06/08/23 1415 123/76 -- -- 64 (!) 5 92 % -- -- 06/08/23 1400 130/80 -- -- 63 6 92 % -- -- 06/08/23 1345 134/78 -- -- 62 6 93 % -- -- 06/08/23 1330 125/72 -- -- 64 8 93 % -- -- 06/08/23 1315 126/76 -- -- 67 9 93 % -- -- 06/08/23 1300 121/76 -- -- 75 16 93 % -- -- 06/08/23 1245 129/79 -- -- 65 12 93 % -- -- 06/08/23 1230 127/83 -- -- 69 12 92 % -- -- 06/08/23 1215 150/86 -- -- 76 18 93 % -- -- 06/08/23 1205 142/86 -- -- 60 18 93 % -- -- 06/08/23 1015 -- -- -- 61 11 94 % -- -- 06/08/23 1006 179/98 -- -- 65 24 94 % -- -- 06/08/23 1002 164/95 -- -- -- 17 98 % 162.6 cm (5' 4 ) 73.5 kg (162 lb) 06/08/23 0737 121/84 36.5 ?C (97.7 ?F) Oral (!) 51 16 100 % -- -- 06/08/23 0409 98/69 36.5 ?C (97.7 ?F) Oral 60 16 96 % -- -- 06/08/23 0045 120/71 36.6 ?C (97.9 ?F) Oral 71 18 96 % -- -- 06/07/232005 128/63 36.5 ?C (97.7 ?F) Oral 68 16 98 % -- -- 06/07/23 1623 129/81 36.7 ?C (98.1 ?F) Oral 70 18 95 % -- -- O2 Therapy: Nasal Cannula, Liters: 2, %FIO2: 21 General appearance: alert and in no acute distress Respiratory: no rales no wheezing or rhonchi Cardiovascular: RR on gallop Ext; no edema Laboratory Recent Labs 06/09/23 0617 06/08/23 0534 06/07/23 0921 WBC 8.70 12.47* 11.51* RBC 4.25 4.04 4.40 HB 13.1 12.4 13.6 HCT 39.3 37.4 40.6 PLT 325 318 325 MCV 92.5 92.6 92.3 MCH 30.8 30.7 30.9 MCHC 33.3 33.2 33.5 RDWCV 12.9 13.0 13.1 MPV 8.6* 8.8* 8.8* Recent Labs 06/08/23 0534 06/07/23 2239 06/07/23 1643 06/07/23 0921 PTSEC -- -- -- 11.0 INR -- -- -- 1.0 APTT 84.5* 71.3* 113.0* 30.0 DATA: Diagnostic tests reviewed for today's visit, films/specimens were personally reviewed by me: Most recent labs and imaging results. SIGNATURE: Brodie Henley MD PATIENT NAME: Damari Rios DATE: June 09, 2023 (more content not included)... Normal [facility] ECG COMPLETEon 06-09-2023 ECG COMPLETE Ventricular Rate : 6 4 BPM Atrial Rate : 64 BPM P-R Interval : 162 ms QRS Duration : 74 ms Q-T Interval : 374 ms QTC Calculation(Bazett) : 385 ms Calculated P [place] : 57 degrees Calculated R [place] : 31 degrees Calculated T [place] : 75 degrees NORMAL SINUS RHYTHM NONSPECIFIC T WAVE ABNORMALITY ABNORMAL ECG WHEN COMPARED WITH ECG OF 06-JUN-2023 12:16, VENT. RATE HAS DECREASED BY 43 BPM NON-SPECIFIC CHANGE IN ST SEGMENT IN LATERAL LEADS QT HAS SHORTENED Confirmed by DEEJAY ASHRAF M.D. ([id number]) on 06/10/2023 9:59:40 AM NAME : DAMARI RIOS PID : [id number] : 1975 Gender : Female Race : ORD : [id number] Procedure Date : Jun 09 2023 11:16:56 Edit Date : Jun 10 2023 09:59:43 Diagnosis: NORMAL SINUS RHYTHM NONSPECIFIC T WAVE ABNORMALITY ABNORMAL ECG WHEN COMPARED WITH ECG OF 06-JUN-2023 12:16, VENT. RATE HAS DECREASED BY 43 BPM NON-SPECIFIC CHANGE IN ST SEGMENT IN LATERAL LEADS QT HAS SHORTENED Confirmed by DEEJAY ASHRAF M.D. ([id number]) on 06/10/2023 9:59:40 AM Test Reason : Chest Pain Location : 42 : 5W L 508 Overread By : DEEJAY ASHRAF M.D. Edited By : DEEJAY ASHRAF M.D. Referred By : , Acquired by : , [facility] NURSING PROGon 06-09-2023 NURSING PROG HNO ID: [id number] Author: Eliana August, YUNI Service: Nursing Author Type: Registered Nurse Type: Nursing Progress Note Filed: 06/09/2023 7:16 PM Note Text: Other: 1530: Assumed care of patient in stable condition. Report received from dayshift RN. No s/s of acute distress noted. Bed low and call light within reach. 1916: Plan of Care Continuous Tube Drawer VS q4h and PRN Treat pain and reassess per protocol Notify LIP of any acute arrhythmias, cp, sob, pulse ox < 94 percent. Maintain pt. Safety: Call light in reach, side rails up X2, bed low and locked, up with assistance. [facility] NURSING PROG HNO ID: [id number] Author: Sapna Gutierrez RN Service: ? Author Type: Registered Nurse Type: Nursing Progress Note Filed: 06/09/2023 1:44 PM Note Text: Other: At 1100 pt started complaining of SOB and chest tightness. HOB was elevated and vitals were stable. Rapid nurse was called. RN notified Dr of the recent changes. EKG was ordered, pulmonary was consulted. A prn breathing treatment was given from respiratory therapy. Pt is currently on oxygen. Call bender is in reach, patient safety is maintained. 1300 Pt is resting in bed still complaining of pain in chest, but states that the oxygen is helping. Call bender in reach, bed low and locked, patient safety maintained. [facility] ALLIED HEALTHon 06-08-2023 ALLIED HEALTH HNO ID: [id number] Author: Jose C Richmond RT(R) Service: ? Author Type: Technologist Type: Allied Health Filed: 06/08/2023 8:28 PM Note Text: Radiology Service Progress Note PATIENT NAME: Damari Rios DATE OF SERVICE: June 08, 2023 TIME: 8:28 PM PATIENT IDENTITY VERIFICATION COMPLETED USING TWO (2) IDENTIFIERS: Name and Date of confirmed by patient verbally and Name and Date of confirmed by identification band. FALL SCREENING: Has the patient had 2 falls in the last year or 1 fall with injury or currently using an Ambulatory Assistive Device (Walker, Cane, Wheelchair, Crutches, etc.)? Inpatient: Screened on floor PATIENT GENDER DATA: Female. status: : No status: NO. PATIENT RELEVANT IMPLANT DATA REVIEWED: Yes RADIOLOGY DEPARTMENT: MR; Exam(s) Completed: Spine: Lumbar spine PERIPHERAL IV DATA: Inpatient: see LDA documentation SIGNED BY: RT Nolberto(R) June 08, 2023 8:28 PM DERMAL PIERCING NON FERROMAGNETIC, PATIENT GIVEN SQUEEZEBALL. METAL ARTIFACT FROM ENDOSCOPIC CLIP, 3T COMPATIBLE Normal [facility] CBC panel Auto (Bld)on 06-08 Erythrocyte distribution width (RBC) [Ratio] 13.0 % Normal 11.5-15.0 [facility] Comment on above: Order Comment: Renetta la Type: BLOOD SPECIMENOrdering Facility: [facility] Address: [address] [place] [address] Performed By: #### 5 8410-2 ####[facility] LABORATORYCLIA [id number] [place] [address] [place] Hematocrit (Bld) [Volume fraction] 37.4 % Normal 36.0-46.0 [facility] Comment on above: Order Comment: Renetta la Type: BLOOD SPECIMENOrdering Facility: [facility] Address: [address] [place] [address] Performed By: #### 5 8410-2 ####[facility] LABORATORYCLIA [id number] [place] [address] [place] Hemoglobin (Bld) [Mass/Vol] 12.4 g/dL Normal 11.5-15.5 [facility] Comment on above: Order Comment: Speci men Type: BLOOD SPECIMENOrdering Facility: [facility] Address: [address] [place] [address] Performed By: #### 5 8410-2 ####[facility] [id number] [address] [place] [facility] MCH (RBC) [Entitic mass] 30.7 pg Normal 26.0-34.0 [facility] Comment on above: Order Comment: Speci men Type: BLOOD SPECIMENOrdering Facility: [facility] Address: [address] [place] [address] Performed By: #### 5 8410-2 ####[facility]ORY[facility] [id number] [address] [place] MCHC (RBC) [Mass/Vol] 33.2 g/dL Normal 30.5-36.0 [facility] Comment on above: Order Comment: Speci men Type: BLOOD SPECIMENOrdering Facility: [facility] Address: [address] [place] [address] Performed By: #### 5 8410-2 ####[facility]ORYCLIA [id number] [address] [place] MCV (RBC) [Entitic vol] 92.6 fL Normal 80.0-100.0 [facility] Comment on above: Order Comment: Speci men Type: BLOOD SPECIMENOrdering Facility: [facility] Address: [address] [place] [address] Performed By: #### 5 8410-2 ####[facility]ORYCL[facility] [id number] [address] [place] Nucleated RBC (Bld) [#/Vol] 10*3/uL Normal <0.01 [facility] Comment on above: Order Comment: Speci men Type: BLOOD SPECIMENOrdering Facility: [facility] Address: [address] [place] [address] Performed By: #### 5 8410-2 ####[facility]ORYCLIA [id number] [place] [address] [place] Platelet mean volume (Bld) [Entitic vol] 8.8 fL Low 9.0-12.7 [facility] Comment on above: Order Comment: Speci men Type: BLOOD SPECIMENOrdering Facility: [facility] Address: [place] [address] Performed By: #### 5 8410-2 ####[facility] LABORATORYCLIA [id number] [place] [id number] [place] Platelets (Bld) [#/Vol] 318 10*3/uL Normal 150-400 [facility] Comment on above: Order Comment: Speci men Type: BLOOD SPECIMENOrdering Facility: [facility] Address: [address] [place] [address] Performed By: #### 5 8410-2 ####[facility] LABORATORYCLIA [id number] [place] [address] [place] RBC (Bld) [#/Vol] 4.04 10*6/uL Normal 3.90-5.20 [facility] Comment on above: Order Comment: Speci men Type: BLOOD SPECIMENOrdering Facility: [facility] Address: [address] [place] [address] Performed By: #### 5 8410-2 ####[facility] LABORATORYCLIA [id number] [place] [address] [place] WBC (Bld) [#/Vol] 12.47 10*3/uL High 3.70-11.00 [facility] Comment on above: Order Comment: Speci men Type: BLOOD SPECIMENOrdering Facility: [facility] Address: [address] [place] [address] Performed By: #### 5 8410-2 ####[facility] LABORATORYCLIA [id number] [place] [address] [place] MRI LUMBAR SPINE WO/W IVCONo n 06-08-2023 MRI LUMBAR SPINE WO/W IVCON * * *Final Report* * * DATE OF EXAM: Jun 08 2023 8:54PM HCM 0304 - MRI LUMBAR SPINE WO/W IVCON / PROCEDURE REASON: Low back pain, cancer suspected * * * * Physician Interpretation * * * * RESULT: EXAMINATION: MRI LUMBAR SPINE WO/W IVCON CLINICAL HISTORY: Low back pain, cancer suspected TECHNIQUE: Routine lumbosacral spine MR protocol without and with intravenous gadolinium. MQ: [id number] Contrast: Dotarem. Contrast Dose: 15 cc Route of Administration: IV COMPARISON: CT flank 06/06/2023 RESULT: Counting reference: Lumbosacral junction. For the purposes of this report, L4-5 is considered the level of the iliac crest and assume there are 5 lumbar-type vertebrae. Anatomic variant: None. Localizer images: No significant findings. Alignment: Alignment is anatomic. Bone marrow signal/fracture: There are 2 intraosseous hemangiomas in the L2 vertebral body, with the largest one measuring up to 1.6 cm with intrinsic T1 hyperintensity corresponding to the lesion seen on the recent CT flank. The smaller intraosseous hemangioma measuring up to 8 mm. Few additional small intraosseous hemangiomas in the L5 vertebral body and S2 vertebral body. No evidence of pathologic marrow infiltration. No evidence of prior fracture. Conus: The conus is within normal limits of signal intensity and morphology. No abnormal enhancement. Paraspinal soft tissues: Paraspinal soft tissues are within normal limits. T11-T12 and T12-L1: Visualized lower thoracic canal and foramina are patent. L1-L2: Canal and foramina are patent. L2-L3: Canal and foramina are patent L3-L4: Canal and foramina are patent. Facet arthropathy is noted. L4-L5: Canal and foramina are patent. Facet arthropathy is noted. L5-S1: Canal and foramina are patent. Facet arthropathy is noted. Sacrum and iliac wings: The visualized sacrum and iliac wings are within normal limits. IMPRESSION: Minimal lumbar spondylosis without high-grade canal narrowing. Multiple benign intraosseous hemangiomas, for which no follow-up is needed, including the lucent lesion in the L2 vertebral body seen on the recent CT flank. Anatomic Lumbar Variant: None. L4-5 is considered the level of the iliac crest and assume there are 5 lumbar-type vertebrae. Transcribed Using Voice Recognition Transcribe Date/Time: Jun 08 2023 9:11P Dictated by: DEEJAY RUBY MD This examination was interpreted and the report reviewed and electronically signed by: DEEJAY RUBY MD on Jun 08 2023 9:17PM EST [id number] [facility] NURSING PROGon 06-08-2023 NURSING PROG HNO ID: [id number] Author: Kimberly Pino RN Service: Nursing Author Type: Registered Nurse Type: Nursing Progress Note Filed: 06/08/2023 8:25 PM Note Text: 0700, Assumed care of patient-- received bedside report from PM shift RN; Patient alert and oriented x3 per report, no complaints of pain/SOB noted. Patient resting in bed with eyes closed at this time; call bender within reach, patient safety maintained. Heparin gtt running, will continue to monitor. 0935 Patient off floor to [facility] at this time. 1500 Patient returned to floor at this time. [facility] NUTRITIONon 06-08-2023 NUTRITION HNO ID: [id number] Author: Francis Roman RD Service: Nutrition Therapy Author Type: Registered Dietitian Type: Nutrition Filed: 06/08/2023 10:31 AM Note Text: NUTRITION THERAPY INITIAL ASSESSMENT SERVICE DATE: 06/08/2023 SERVICE TIME: 8:45 am Nutrition Assessment: Recommended Malnutrition Diagnosis: Mild Protein-Calorie Malnutrition In the context of: Chronic Illness or Injury (With an acute component) Based on: Insufficient Energy Intake Nutrition Diagnosis: Problem: Suboptimal protein/energy intake Related to: Chronic illness As evidenced by: Food/nutrition related history, Intake records, Patient/family self-report, Medical condition Estimated kilocalorie needs: 1181-6090 Calorie Calculation Method: 20-25 kcals/kg Estimated protein needs (grams): 74-88 Grams protein determined by: 1.0 - 1.2 g/kg Care Plan: Follow for diet advancement to goal Supplements: Ensure Max (Upon diet advancement - BID total of 300 calories and 60g protein) Medications: Stool softener (Continue) Monitor and Evaluation: Monitor labs, I/Os, vital signs, weight, Monitor fluid/electrolyte balance, Monitor bowel function, Meet greater than 75% of estimated needs Discharge Recommendations: Diet;Oral Supplements Diet: Regular diet Oral Supplements: Daily nutrition supplement or per PO intake HPI: This patient is a 47 year old female with a PMHx of HTN, asthma, and pulmonary embolism. The patient presented with pleuritic pain and SOB, found to have pulmonary embolism. Of note, patient reports symptoms of not feeling well for several weeks leading up to this admission + has had other hospital admissions. This service is seeing patient for a LOS of 7 days. Intake History: Nutrition Intake Prior to Admission: Less than 75% estimated energy needs (Patient reports appetite has not been too good over the last few months, reports eating 1 meal/day with intermittent snacks, typically finishing 100% of the 1 meal. Reports drinking Boost intermittently for breakfast.) greater than or equal to 1 month Current Nutrition Intake: Less than 75% estimated energy needs (Patient with 25-80% intake of meals recorded x the past 6 days. Patient currently NPO after midnight for procedure, also prevously NPO after midnight on 06/06. Patient reports a so-so appetite this admission, reports eating ~25% of 3 meals/day.) Patient is agreeable to daily nutrition supplements, requesting strawberry. Current Intake Over time: Greater than or equal to 7 days Diet Orders (From admission, onward) Start Ordered 06/08/23 0001 DIET NPO AFTER MIDNIGHT Question Answer Comment NPO Restrictions EXCEPT MEDS NPO Restrictions FOR PROCEDURE 06/07/23 0906 Anthropometrics: Height: 162.6 cm (5' 4 ) Weight: 73.5 kg (162 lb) Dosing Weight: 73.5 kg (162 lb 0.6 oz) Usual Weight: 63.5 kg (140 lb) Few months ago - Last time this patient weighed ~140 lbs via chart review was 2014, questioning accuracy Usual Weight Obtained From: Patient Body mass index is 27.81 kg/m?. Weight change percentage over time: Potential 15.7% weight gain per subjective UBW, last weight recorded in chart from 04/2021 Weight Change: Weight gain Physical Exam: Subcutaneous fat loss: No fat loss Muscle loss: No muscle loss Potential micronutrient deficiency: No deficiency identified Edema/Ascites: No edema GI Symptoms: Constipation (+ tender abdomen. No BM recorded in chart yet, on bowel regimen.) Stool Amount: Decreased (No BM recorded x 7 days) Functional Status: Unable to assess Potential Signs of Inflammation: Chronic condition, Hyperglycemia, Leukocytosis MNT Billing: $ Initial Assessment: 1-15 minutes SIGNATURE: Francis Roman RD PATIENT NAME: Damari Rios DATE: June 08, 2023 TIME: 10:27 AM [facility] OPERATIVE NOon 06-08-2023 OPERATIVE NO HNO ID: [id number] Author: Tyler Greene MD Service: Interventional Cardiology Author Type: Physician Type: Operative Report Filed: 07/03/2023 12:01 PM Note Text: HOIST OPERATOR PROCEDURE REPORT SERVICE DATE: 06/08/2023 SERVICE TIME: 1:06 PM MANAGER UI: Tyler Greene MD ATTENDING: Zainab Croft V, MD PRIMARY CARE PHYSICIAN: Kimberly Murguia MD REFERRING PROVIDER: Marylin Arevalo MD [employer] [employer] HE[employer] and AGING SCALE:2=Well CARDIOVASCULAR INSTABILITY:No PRE-PROCEDURE DIAGNOSIS: Non-STEMI POST PROCEDURE DIAGNOSIS: Normal epicardial coronary arteries Preserved LV systolic function PROCEDURE: Left Heart Catheterization LV Gram MODERATE SEDATION: Moderate Sedation provided by Cardiology Nursing Staff. Moderate sedation consisting of continuous ECG, pulse oximetry and cardiopulmonary monitoring was performed by the Cardiology Nurse, overseen by supervising physician, for an intra-service time of 0 hr. 16 min. Sedative Medications: Drug: Versed Dose: 2 mg Route: IV Drug: Fentanyl Dose: 50 mcg Route: IV PRIORITY AT TIME OF PROCEDURE: Urgent SITE OF ENTRY: Radial:Right Radial CONTRAST: Omnipaque 350 mg Iodine/mL (iohexol injection, solution): 50 mL LEFT HEART CATHETERIZATION AND FINDINGS: The patient was taken to the cardiac manufacturing laborer where the entry site was prepped and draped in a sterile manner. Under local anesthesic with 2% Lidocaine, the vessel was cannulated with micropuncture technique using an arterial needle and a 5F sheath was introduced. Selective injections were made in the left and right coronary arteries and various right, left and oblique views were obtained. The aortic valve was crossed and hemodynamic measurements were recorded. LV Angiogram was performed. CORONARY ANGIOGRAPHY: LEFT MAIN TRUNK: No Stenosis LEFT ANTERIOR DESCENDING: No Stenosis DIAGONAL #1: No Stenosis LEFT CIRCUMFLEX: No Stenosis MARGINAL #1: No Stenosis MARGINAL #2: No Stenosis DOMINANT: NO RIGHT CORONARY: No Stenosis DOMINANT: YES POSTERIOR DESCENDING: No Stenosis POSTERIOR LATERAL: No Stenosis LV GRAM: LVEF: Normal ( 55% or Greater) WALL MOTION: Normal MITRAL VALVE REGURGITATION: Mild HEMODYNAMICS: LVEDP: 11 mmHg LV - AORTA: No Gradient The sheath was removed and hemostatsis was established using manual pressure using wrist band. There was no bleeding at the end of the procedure. The pt was returned to the recovery room in a stable condition. ESTIMATED BLOOD LOSS: Less Than Minimal Unless Noted Here. COMPLICATIONS: None SPECIMENS: No specimens obtained unless noted here. CONDITION: Stable RECOMMENDATIONS: Follow protocol of post-op orders. Aggressive modification of risk factors. Optimize Medical Management. May resume oral anticoagulation tonight at 9 PM if no access site bleeding. SIGNATURE: Tyler Greene MD PATIENT NAME: Damari Rios DATE: June 08, 2023 TIME: 1:06 PM Normal [facility] PTT, ANTICOAGULANT THERAPYon 06-08-2023 aPTT Coag (PPP) [Time] 84.5 s High 23.0-32.4 [facility] Comment on above: Order Comment: Renetta la Type: BLOOD SPECIMEN [facility] Address: [address] [place] [address] Performed By: #### P TTAC #### [facility] CLIA [id number] [address] [place] [address] [place] aPTT Coag (PPP) [Time] 71.3 s High 23.0-32.4 [facility] Comment on above: Order Comment: Renetta la Type: BLOOD SPECIMEN [facility] Address: [address] [place] [address] Performed By: #### P TTAC #### [facility] CLIA [id number] [address] [place] [address] [place] CBC panel Auto (Bld)on 06-07 Erythrocyte distribution width (RBC) [Ratio] 13.1 % Normal 11.5-15.0 [facility] Comment on above: Order Comment: Renetta la Type: BLOOD SPECIMENOrdering Facility: [facility] Address: [address] [place] [address] Performed By: #### 5 8410-2 ####[facility]ORATORYCLIA [id number] [place] [address] [place] Hematocrit (Bld) [Volume fraction] 40.6 % Normal 36.0-46.0 [facility] Comment on above: Order Comment: Speci men Type: BLOOD SPECIMENOrdering Facility: [facility] Address: [address] [place] [address] Performed By: #### 5 8410-2 ####[facility]CLIA [id number] [place] [address] [place] Hemoglobin (Bld) [Mass/Vol] 13.6 g/dL Normal 11.5-15.5 [facility] Comment on above: Order Comment: Speci men Type: BLOOD SPECIMENOrdering Facility: [facility] Address: [address] [place] [address] Performed By: #### 5 8410-2 ####[facility]ORYCLIA [id number] [place] [address] [place] MCH (RBC) [Entitic mass] 30.9 pg Normal 26.0-34.0 [facility] Comment on above: Order Comment: Speci men Type: BLOOD SPECIMENOrdering Facility: [facility] Address: [address] [place] [address] Performed By: #### 5 8410-2 ####[facility]ORYCLIA [id number] [place] [address] [place] MCHC (RBC) [Mass/Vol] 33.5 g/dL Normal 30.5-36.0 [facility] Comment on above: Order Comment: Speci men Type: BLOOD SPECIMENOrdering Facility: [facility] Address: [address] [place] [address] Performed By: #### 5 8410-2 ####[facility]ORYCLIA [id number] [place] [address] [place] MCV (RBC) [Entitic vol] 92.3 fL Normal 80.0-100.0 [facility] Comment on above: Order Comment: Speci men Type: BLOOD SPECIMENOrdering Facility: [facility] Address: [address] [place] [address] Performed By: #### 5 8410-2 ####[facility]ORYCLIA [id number] [place] [address] [place] Nucleated RBC (Bld) [#/Vol] 10*3/uL Normal <0.01 [facility] Comment on above: Order Comment: Speci men Type: BLOOD SPECIMENOrdering Facility: [facility] Address: [address] [place] [address] Performed By: #### 5 8410-2 ####[facility]ORYCLIA [id number] [place] [address] [place] Platelet mean volume (Bld) [Entitic vol] 8.8 fL Low 9.0-12.7 [facility] Comment on above: Order Comment: Speci men Type: BLOOD SPECIMENOrdering Facility: [facility] Address: [address] [place] [address] Performed By: #### 5 8410-2 ####[facility]ORATORYCLIA [id number] [place] [address] [place] Platelets (Bld) [#/Vol] 325 10*3/uL Normal 150-400 [facility] Comment on above: Order Comment: Speci men Type: BLOOD SPECIMENOrdering Facility: [facility] Address: [address] [place] [address] Performed By: #### 5 8410-2 ####[facility]ORATORYCLIA [id number] [place] [address] [place] RBC (Bld) [#/Vol] 4.40 10*6/uL Normal 3.90-5.20 [facility] Comment on above: Order Comment: Speci men Type: BLOOD SPECIMENOrdering Facility: [facility] Address: [address] [place] [address] Performed By: #### 5 8410-2 ####[facility]ORATORYCLIA [id number] [place] [address] [place] WBC (Bld) [#/Vol] 11.51 10*3/uL High 3.70-11.00 [facility] Comment on above: Order Comment: Speci men Type: BLOOD SPECIMENOrdering Facility: [facility] Address: [address] [place] [address] Performed By: #### 5 8410-2 ####[facility]ORYCLIA [id number] [place] [address] [place] CK TOTAL AND CK-MBon 023 CK [Catalytic activity/Vol] 24 U/L Low 42-196 [facility] Comment on above: Order Comment: Speci men Type: BLOOD SPECIMEN [facility] Address: [address] [place] [address] Performed By: #### 5 8410-2 #### [facility] CLIA [id number] [place] CK.MB [Mass/Vol] ng/mL Normal <4.4 [facility] Comment on above: Order Comment: Speci men Type: BLOOD SPECIMEN [facility] Address: [address] [place] [address] Performed By: #### 5 8410-2 #### [facility] CLIA [id number] [address] [place] [address] [place] CK.MB [Ratio] Normal [facility] Comment on above: Order Comment: Speci abhinav Type: BLOOD SPECIMEN [facility] Address: [address] [place] [address] Result Comment: CK M B % not reported with CK <100 U/L. Performed By: #### 5 8410-2 #### [facility] CLIA [id number] [address] [place] [address] [place] CONSULT PROGon 06-07-2023 CONSULT PROG HNO ID: [id number] Author: Melinda Mcqueen APRN.[employer] Service: Pulmonary Disease Author Type: Nurse Practitioner Type: Consult Progress Note Filed: 06/07/2023 12:25 PM Note Text: CONSULT PROGRESS NOTES Patient Name: Damari Rios SERVICE DATE: 06/07/2023 Consult Progress Note CONSULTING SERVICE: [facility] Some elements have been copied from consult note dated 06/05/23 The elements have been updated and reflect current decision making from today 06/07/23 ASSESSMENT AND PLAN: Provoked PE (post op) - resume Eliquis post LHC - no right heart strain, neg DVT study Asthma exacerbation - possibly contributing to symptoms, prednisone burst and Zithromax for possible sinusitis Hypoxia - resolved PLAN: Complete 5 days course of Zithromax, last day of Prednisone Continue albuterol prn Resume Eliquis post catheterization O/p follow up for asthma with Dr. Martinez in about 6 weeks - will order PFT, Vaughn O/p follow up with vascular medicine for PE Will start Dulera, continue as outpatient Pulmonary service will sign off, please, call if needed PERTINENT ROS and INTERVAL HISTORY: Laying in the bed, alert, NAD Still having continuous chest pain, anticipating LHC tomorrow, on heparin drip now for procedure Has dry cough. Has GARCÍA. Sinus symptomatology improving Underwent desaturation study, no need for supplemental oxygen VITALS: Temp (24hrs), Av.3 ?C (97.3 ?F), Min:36.3 ?C (97.3 ?F), Max:36.4 ?C (97.5 ?F) BP 118/67 Pulse (!) 58 Temp 36.3 ?C (97.3 ?F) (Oral) Resp 20 Ht 162.6 cm (5' 4 ) Wt 73.5 kg (162 lb) LMP 07/24/2016 (Approximate) SpO2 100% BMI 27.81 kg/m? INTAKE AND OUTPUT No intake or output data in the 24 hours ending 06/07/23 1218 Patient Vitals for the past 24 hrs: BP Temp Temp src Pulse Resp SpO2 06/07/23 0710 118/67 36.3 ?C (97.3 ?F) Oral (!) 58 20 100 % 06/07/23 0400 122/65 36.3 ?C (97.3 ?F) Oral (!) 55 15 93 % 06/07/23 0042 103/64 36.3 ?C (97.3 ?F) Oral 73 17 96 % 06/06/23 2004 119/67 36.3 ?C (97.3 ?F) Oral 64 16 -- 06/06/23 1546 120/75 36.3 ?C (97.3 ?F) Oral 60 20 100 % 06/06/23 1348 129/71 36.4 ?C (97.5 ?F) Oral 80 17 95 % PHYSICAL EXAMINATION: General appearance: Well appearing, alert, in no acute distress Skin: Skin color, texture, turgor normal Head: Normocephalic, no masses, lesions Oropharynx: Lips, mucosa, and tongue normal Lungs: Lungs clear to auscultation. No wheezing, rhonchi, rales Heart: RRR without murmur, gallop, or rubs. No ectopy Abdomen: Normal abdominal exam Extremities: No deformities, edema, skin discoloration, clubbing Peripheral pulses: Normal MEDICATIONS Current Facility-Administered Medications Medication Dose Route Frequency iv contrast (radiology procedure) INTRAVENOUS DIRECTED PRN tamsulosin 0.4 mg cap(s) (FLOMAX) 0.4 mg ORAL DAILY albuterol 2.5 mg /3 mL (0.083 %) 2.5 mg (PROVENTIL) 2.5 mg INHALATION q 6 H PRN albuterol HFA 90 mcg/actuation 2 Puff (PROVENTIL HFA, VENTOLIN HFA) 2 Puff OTHER q 6 H PRN acetaminophen 650 mg tab(s) (TYLENOL) 650 mg ORAL q 6 H PRN melatonin 3 mg tab(s) 3 mg ORAL DAILY (8 PM) NaCl 0.9% iv flush bag 20 mL INTRAVENOUS PRN carvedilol 6.25 mg tab(s) (COREG) 6.25 mg ORAL BID w MEALS amLODIPine 5 mg tab(s) (NORVASC) 5 mg ORAL DAILY famotidine 40 mg tab(s) (PEPCID) 40 mg ORAL AT BEDTIME calcium carbonate 1,000 mg chewable tab(s) (TUMS) 1,000 mg ORAL TID PRN lidocaine 4 % 1 Patch (SALONPAS) 1 Patch TRANSDERMAL DAILY And lidocaine patch - REMOVE OTHER AT BEDTIME And lidocaine - VERIFY PATCH OTHER q 8 H azithromycin 500 mg tab(s) (ZITHROMAX) 500 mg ORAL DAILY oxyCODONE IR 5 mg tab(s) (ROXICODONE) 5 mg ORAL q 6 H PRN ondansetron (PF) 4 mg injection (ZOFRAN) 4 mg INTRAVENOUS q 6 H PRN sodium chloride 0.9 % (flush) 2-10 mL (BD POSIFLUSH) 2-10 mL INTRAVENOUS DIRECTED PRN And perflutren lipid microspheres 1.1 mg/mL 1.3 mL injection (DEFINITY) 1.3 mL INTRAVENOUS DIRECTED PRN docusate sodium 100 mg cap(s) (COLACE) 100 mg ORAL BID polyethylene glycol 3350 17 g packet 17 g ORAL DAILY heparin iv infusion 25,000 units in NaCl 0.45% 250 mL STANDARD NOMOGRAM 0-3,000 Units/hr INTRAVENOUS CONTINUOUS And heparin RATE CHANGE bolus 1,000-10,000 Units for subtherapeutic PTTAC results 1,000-10,000 Units INTRAVENOUS PRN heparin nomogram - NO INITIAL BOLUS OTHER ONCE (heparin bolus) LABORATORY DATA Recent Labs 06/07/23 0921 06/06/23 0948 06/05/23 0940 WBC 11.51* 15.26* 12.53* RBC 4.40 4.41 4.43 HB 13.6 13.4 13.7 HCT 40.6 40.9 41.1 PLT 325 339 316 MCV 92.3 92.7 92.8 MCH 30.9 30.4 30.9 MCHC 33.5 32.8 33.3 RDWCV 13.1 13.0 13.1 MPV 8.8* 8.6* 8.7* NEUTP -- -- 60.1 ABSNEUT -- -- 7.52* LYMPHP -- -- 32.2 MONOP -- -- 6.1 BASOP -- -- 0.2 ABSMONO -- -- 0.77 ABSEOSIN -- -- 0.09 ABSBASO -- -- 0.03 Recent Labs 06/07/2392006/06/2348 06/05/23 0940 NA -- 139 139 K -- 4.2 3.8 CHLOR -- 1 (more content not included)... [facility] CONSULT PROG HNO ID: [id number] Author: Autumn Keller MD Service: Gynecology Author Type: Physician Type: Consult Progress Note Filed: 06/07/2023 12:47 PM Note Text: GYNECOLOGY INITIAL CONSULTATION SERVICE DATE: 06/07/2023 SERVICE TIME: 1230 CONSULTING PHYSICIAN: Zainab Croft MD REASON FOR CONSULT: abdominal pain Subjective HISTORY OF THE PRESENT ILLNESS This 47 year old female currently admitted since 06/02/23 for Pulmonary Embolism, Chest pain with plans for Heart Catheterization tomorrow. She underwent a laparoscopy RSO, LS and sling per patient on 05/28/2023 due to right abdominal pain that she had had for some time. She also has a history of hysterectomy in 2017. She notes she has continued to have that preop right sided abdominal pain. This is the same pain she notes today. Path noted in care everywhere to be simple ovarian cyst from the recent surgery. History regarding abdominal pain also significant for INA, epigastric pain with recent EGD. On Pepcid and Protonix. HISTORY: PAST MEDICAL HISTORY Diagnosis Date Bipolar I disorder, most recent episode (or current) unspecified Calculus of bile duct without mention of cholecystitis, with obstruction Irritable bowel syndrome Kidney stone Known health problems: none 04/04/2021 Other and unspecified ovarian cyst Other cholecystitis Seasonal allergies Temporomandibular joint disorders, unspecified Unspecified asthma(493.90) PAST SURGICAL HISTORY Procedure Laterality Date ADENOIDECTOMY PRIMARY Adenoidectomy COLONOSCOPY FLX DX W/COLLJ SPEC WHEN PFRMD 04/03/2012 pt discomfort, normal to transverse colon - ordered BE EGD TRANSORAL BIOPSY SINGLE/MULTIPLE 04/03/2012 mild gastritis HYSTERECTOMY HX 2017 LAPAROSCOPY SURG CHOLECYSTECTOMY 1999 Cholecystectomy, lap LIG/TRNSXJ FLP TUBE ABDL/VAG APPR UNI/BI 1998 PAST SURGICAL HISTORY OF 2015 ureteral stent placed REMOVAL OF OVARY/TUBE(S) 2022 RSO, LS SLING 2022 TONSILLECTOMY PRIMARY/SECONDARY Tonsillectomy FAMILY HISTORY Problem Relation Age of Onset Hypertension Mother Breast Cancer Paternal Grandmother lung GI Paternal Grandfather Diabetes Maternal Grandmother from lung ca Diabetes Maternal Grandfather from unk cause Colon Cancer Maternal Uncle age 43 other (POTS) Sister other (Lupus) Other niece other (lupus) Other Anesthesia Problems No Family History Colon Polyps No Family History Social History Tobacco Use Smoking status: Never Smokeless tobacco: Never Vaping Use Vaping Use: Never used Substance Use Topics Alcohol use: Yes Comment: very rare- maybe 2x/ year Drug use: No OB History T3 L4 SAB1 IAB0 Ectopic0 Multiple0 Live Births0 ALLERGIES Allergen Reactions Penicillins Anaphylaxis Bactrim [Sulfametho* Codeine Rash Ultram [Tramadol Hc* Intolerance No current facility-administered medications on file prior to encounter. Current Outpatient Medications on File Prior to Encounter Medication Sig pantoprazole DR (PROTONIX) 40 mg tablet Take 40 mg by mouth once daily. carvedilol (COREG) 6.25 mg tablet Take 6.25 mg by mouth two times a day with meals. famotidine (PEPCID) 40 mg tablet Take 40 mg by mouth daily at bedtime. Nebulizers Lifetime supplies ondansetron (ZOFRAN) 4 mg tablet Take 1 tablet by mouth every 8 hours as needed. tamsulosin ER (FLOMAX) 0.4 mg cap Take 1 capsule by mouth once daily. 30 minutes after the same meal each day. albuterol (PROVENTIL) 2.5 mg /3 mL (0.083 %) nebulizer solution Use 3 mL via nebulizer every 6 hours as needed for Wheezing/Shortness of Breath. Inhale over 5-15 minutes albuterol HFA (PROAIR HFA) 90 mcg/actuation inhaler 2 Puffs every 6 hours as needed for Wheezing/Shortness of Breath. Take as directed Nebulizer and Compressor For Neb Dispense one nebulizer with lifetime supplies predniSONE (DELTASONE) 10 mg tablet 4 tabs for 4 days, 3 tabs for 3 days, 2 tabs for 2 days, 1 tab for 2 days (Patient not taking: Reported on 04/04/2021 ) EPINEPHrine (EPIPEN) 0.3 mg/0.3 mL auto-injector Use as directed for bee sting loratadine (CLARITIN) 10 mg tablet Take 1 tablet by mouth once daily. (Patient not taking: Reported on 06/19/2019 ) Objective PHYSICAL EXAM: Blood pressure 125/75, pulse 83, temperature 36.3 ?C (97.3 ?F), temperature source Oral, resp. rate 20, height 162.6 cm (5' 4 ), weight 73.5 kg (162 lb), last menstrual period 07/24/2016, SpO2 95%. GENERAL: In no apparent distress. CARDIOVASCULAR: Regular rate and rhythm. PULMONARY: Lungs clear to all vora. ABDOMEN: Soft, mildly tender, non-distended, no rebound, no guarding, incisions all well healing including suprapubic incisions. BME: anterior vaginal wall sutures intact with no tenderness or evidence of hematoma. ASSESSMENT/PLAN 1) Abdominal pain, chronic not improved since surgical intervention with recent l/s RSO, LS no acute findings and benign exam maybe be s (more content not included)... Normal [facility] ECHOon 06-07-2023 Echocardiography Echocardiography Report: Transthoracic Echo [facility] Date of service: 06/07/2023 10:25:11 AM [facility] Ordering physician: SUKHJINDER LANDAVERDE Indication: Pulmonary embolism Technologist: Celestine Ramos [facility] Interpreting physician: Fernandez Arevalo MD PATIENT: Name: MRS. DAMARI RIOS : 1975 Age: 47 years Gender: F History of hypertension. Primary rhythm: sinus. Height: 162.56 cm BSA: 1.82 m Weight: 73.48 kg BMI: 27.8 kg/m Heart rate 67 bpm Blood pressure 118/67 mmHg Color Doppler was utilized to interrogate the cardiac valves assessed and spectral Doppler was utilized to determine the flow velocities and pressure gradients reported in this exam. Myocardial strain analysis was performed in this exam to aid in the assessment of cardiac function. MEASUREMENTS: Value Indexed Normal Max aortic dimension 3.1 cm Ao < 3.8 Left atrial volume 51 ml (biplane A-L) 28 ml/m Amilcar <= 34 LV ID (diastole) 3.9 cm (2D) 2.16 cm/m LV ID (systole) 2.4 cm (2D) 1.33 cm/m IVS, leaflet tips 1.2 cm (2D) Posterior wall thickness 1.2 cm (2D) Left ventricular mass 157 g (2D) 86 g/m Global peak long strain -17.6 % LV stroke volume 62 ml (2D biplane) LV end diastolic volume 95 ml (2D biplane) 52.3 ml/m 29<=EDVi<62 LV end systolic volume 33 ml (2D biplane) 18.2 ml/m Ejection Fraction 65 % (2D biplane) EF > 54 FINDINGS: LEFT VENTRICLE The left ventricle is normal in size. There is mild left ventricular hypertrophy. Left ventricular systolic function is normal globally. Global LV myocardial strain is normal. Normal left ventricular diastolic function. Mitral annular lateral E/e': 6.6. Mitral annular septal E/e': 8.9. Wall Motion: All scored segments are normal. RIGHT VENTRICLE The right ventricle is normal in size. Right ventricular systolic function is normal. RV systolic tissue Doppler velocity is 12.4 cm/s. Tricuspid annular displacement is 2.2 cm. Estimated right ventricular systolic pressure is likely underestimated due to a weak or incomplete tricuspid regurgitation signal and is, at least, 19 mmHg consistent with normal pulmonary artery pressures. Estimated right atrial pressure is 3 mmHg based on IVC assessment. LEFT ATRIUM The left atrial cavity is normal in size. RIGHT ATRIUM The right atrial cavity is normal in size. Inferior Vena Cava: The inferior vena cava appears normal measuring 2.0 cm. The vessel decreases greater than 50 percent with inspiration. MITRAL VALVE There is trace (trace - 1+) mitral valve regurgitation. There is mild thickening. The pressure half time is 74 msec. The peak mitral E/A ratio is 1.60. The average mitral E/e' ratio is 7.8. The mitral flow deceleration time is 255 msec. TRICUSPID VALVE The tricuspid valve leaflets are structurally normal. There is trace tricuspid valve regurgitation. The hepatic venous pattern showed normal systolic flow. AORTIC VALVE There is no aortic valve stenosis. There is mild (1+ - 2+) aortic valve regurgitation. There is mild thickening. There is mild calcification. The peak gradient is 11 mmHg (peak velocity = 168.0 cm/s). The LVOT diameter is 1.9 cm. PULMONIC VALVE The pulmonic valve was not seen or not interrogated. AORTA The visualized aorta is normal in size. Measurements - Sinus: 3.1 cm. Sinotubular junction 2.5 cm. Mid ascending aorta 3.1 cm. PULMONARY ARTERIES The pulmonary arteries are unseen or not interrogated. INTERATRIAL SEPTUM There is no evidence of intracardiac shunting as detected by Doppler. INTERVENTRICULAR SEPTUM There is no flow through the interventricular septum as detected by Doppler. PERICARDIUM There is no pericardial effusion. There is an epicardial fat pad. CONCLUSIONS: - Exam indication: Pulmonary embolism - The left ventricle is normal in size. There is mild left ventricular hypertrophy. Left ventricular systolic function is normal. EF = 65 5% (2D biplane) Normal left ventricular diastolic function. - The right ventricle is normal in size. Right ventricular systolic function is normal. - Unable to visualize aortic valve morphology. There is mild (1+ - 2+) aortic valve regurgitation. - Estimated right ventricular systolic pressure is likely underestimated due to a weak or incomplete tricuspid regurgitation signal and is, at least, 19 mmHg consistent with normal pulmonary artery pressures. Estimated right atrial pressure is 3 mmHg based on IVC assessment. - The patient has not had a prior CC echocardiographic exam for comparison. * * * Final * * * [facility] [employer] [facility] : [id number] Normal [facility] HCG Preg Ur Qlon 06-07-2023 HCG ( test) Ql (U) Negative Normal Negative [facility] Comment on above: Order Comment: Renetta la Type: URINE SPECIMENOrdering Facility: [facility] Address: [address] [place] [address] Result Comment: This test is intended to aid in the early detection of . Very dilute urine samples, as indicated by a low specific gravity, may not contain territory account representative levels of hCG. This test detects intact hCG only. This test does not reliably detect hCG degradation products, including free-beta subunit and beta-core fragment. Therefore, this test may show reduced reactivity in urine after 8 weeks gestation. A number of conditions other than , including trophoblastic disease and certain non-trophoblastic neoplasms cause elevated levels of hCG. As with any assay employing mouse antibodies, the possibility exists for interference by human anti-mouse antibodies (HAMA) in the specimen. The test provides a presumptive diagnosis for . Performed By: #### 2 106-3 ####[facility] [id number] [place] [address] [place] HIGH SENSITIVITY TROPONIN To n 06-07-2023 Troponin T.cardiac High sensitivity method [Mass/Vol] <6 Normal <12 [facility] Comment on above: Order Comment: Renetta la Type: BLOOD SPECIMEN [facility] Address: [address] [place] [address] Result Comment: When assessing risk for acute coronary syndromes: In patients undergoing blood draw greater than or equal to 2 hours from symptom onset, with history of very low to moderate risk and non-ischemic ECG, an initial hs-Troponin T less than 12 ng/L AND a 1 hour delta hs-Troponin T less than 3 ng/L should be considered very low risk for 30 day MACE. Performed By: #### 5 8410-2 #### [facility] CLIA [id number] [address] [place] [address] [place] Lipid 1996 panelon 3 Cholesterol [Mass/Vol] 203 mg/dL High <200 [facility] Comment on above: Order Comment: Speci men Type: BLOOD SPECIMEN [facility] Address: [address] [place] [address] Result Comment: <200 mg/dL, Desirable 200-239 mg/dL, Borderline high >239 mg/dL, High Performed By: #### 5 8410-2 #### [facility] CLIA [id number] [address] [place] [address] [place] Cholesterol in HDL [Mass/Vol] 52 mg/dL Normal >39 [facility] Comment on above: Order Comment: Speci men Type: BLOOD SPECIMEN [facility] Address: [address] [place] [address] Result Comment: 40-5 9 mg/dL, Acceptable >59 mg/dL, High: Negative risk factor for coronary heart disease <40 mg/dL, Low: Positive risk factor for coronary heart disease Performed By: #### 5 8410-2 #### [facility] CLIA [id number] [address] [place] [address] [place] Cholesterol in LDL [Mass/Vol] 120 mg/dL High <100 [facility] Comment on above: Order Comment: Speci men Type: BLOOD SPECIMEN [facility] Address: [address] [place] [address] Result Comment: <100 mg/dL, Optimal 100-129 mg/dL, Near optimal/above optimal 130-159 mg/dL, Borderline high 160-189 mg/dL, High >189 mg/dL, Very high Secondary prevention optimal LDL Cholesterol levels are recommended to be < 70 mg/dL Performed By: #### 5 8410-2 #### [facility] CLIA [id number] [address] [place] [address] [place] Cholesterol in LDL/Cholesterol in HDL [Mass ratio] 2.31 {ratio} Normal <2.54 [facility] Comment on above: Order Comment: Speci men Type: BLOOD SPECIMEN [facility] Address: [address] [place] [address] Result Comment: Mojgan ramon: 1. National Cholesterol Education Program ATP III Guideline At-A-Glance Quick Desk Reference: National Heart, Lung, and Blood [place]. National Institutes of Health. 2001: NIH Publication No. 01-3305. 2. An International Atherosclerosis Society position paper: global recommendations for the management of dyslipidemia: executive summary, Atherosclerosis. 2014: 232(2):410-413. Performed By: #### 5 8410-2 #### [facility] CLIA [id number] [address] [place] [address] [place] Cholesterol in VLDL [Mass/Vol] 31 mg/dL High <30 [facility] Comment on above: Order Comment: Renetta la Type: BLOOD SPECIMEN [facility] Address: [address] [place] [address] Performed By: #### 5 8410-2 #### [facility] CLIA [id number] [address] [place] [address] [place] Cholesterol non HDL [Mass/Vol] 151 mg/dL High <130 [facility] Comment on above: Order Comment: Maikolmiguel la Type: BLOOD SPECIMEN [facility] Address: [address] [place] [address] Result Comment: <130 mg/dL, Optimal 130-159 mg/dL, Near optimal/above optimal 160-189 mg/dL, Borderline high 190-219 mg/dL, High >219 mg/dL, Very high Secondary prevention optimal non HDL Cholesterol levels are recommended to be <100 mg/dL Performed By: #### 5 8410-2 #### [facility] CLIA [id number] [address] [place] [address] [place] Cholesterol.total/Chol esterol in HDL [Mass ratio] 3.90 {ratio} Normal <5.10 [facility] Comment on above: Order Comment: Renetta la Type: BLOOD SPECIMEN [facility] Address: [address] [place] [address] Performed By: #### 5 8410-2 #### [facility] CLIA [id number] [address] [place] [address] [place] FASTING TIME Normal [facility] Comment on above: Order Comment: Renetta la Type: BLOOD SPECIMEN [facility] Address: [address] [place] [address] Result Comment: Unkn own Performed By: #### 5 8410-2 #### [facility] CLIA [id number] [address] [place] [address] [place] Triglyceride [Mass/Vol] 156 mg/dL High <150 [facility] Comment on above: Order Comment: Renetta la Type: BLOOD SPECIMEN [facility] Address: [address] [place] [address] Result Comment: <150 mg/dL, Normal 150-199 mg/dL, Borderline high 200-499 mg/dL, High >499 mg/dL, Very high Performed By: #### 5 8410-2 #### [facility] CLIA [id number] [address] [place] [address] [place] PT panel Coag (PPP)on 2022 INR Coag (PPP) [Relative time] 1.0 {INR} Normal 0.9-1.3 [facility] Comment on above: Order Comment: Renetta la Type: BLOOD SPECIMENOrdering Facility: [facility] Address: [address] [place] [address] Result Comment: Tiesha min K Antagonist (VKA) Therapeutic Range: INR 2 to 3 (Target INR of 2.5) Note: For patients treated with VKA drugs, such as warfarin, the [place] [employer] 2012 Guideline recommends a therapeutic INR range of 2 to 3 (target INR of 2.5). This recommendation includes high-risk patients with antiphospholipid syndrome with previous arterial or venous thromboembolism, current-generation mechanical or bioprosthetic aortic heart valve replacement. Note: Patients with mechanical aortic valve replacement and additional risk factors for thromboembolic events (atrial fibrillation, previous thromboembolism, LV dysfunction, hypercoagulable conditions) or an older generation mechanical AVR (i.e., ball in-Cage) or any mechanical MVR should have a INR therapeutic range of 2.5 to 3.5 (target INR of 3). Marisela TIDWELL, et al. Chest 2012, 141:7S-47S Roberta RA, et al. [facility] 2017, 70: 252-289 Performed By: #### 3 4528-0, PTTAC ####[facility]IA [id number] [place] [address] [place] PT Coag (PPP) [Time] 11.0 s Normal 9.7-13.0 [facility] Comment on above: Order Comment: Speci men Type: BLOOD SPECIMENOrdering Facility: [facility] Address: [address] [place] [address] Performed By: #### 3 4528-0, PTTAC ####[facility] [id number] [address] [place] PTT, ANTICOAGULANT THERAPYon 06-07-2023 aPTT Coag (PPP) [Time] 113.0 s High 23.0-32.4 [facility] Comment on above: Order Comment: Speci men Type: BLOOD SPECIMEN [facility] Address: [address] [place] [address] Performed By: #### 5 8410-2 #### [facility] CLIA [id number] OF [facility] aPTT Coag (PPP) [Time] 30.0 s Normal 23.0-32.4 [facility] Comment on above: Order Comment: Speci men Type: BLOOD SPECIMENOrdering Facility: [facility] Address: [address] [place] [address] Performed By: #### 3 4528-0, PTTAC ####[facility] [id number] [address] [place] Urinalysis complete panel (U )on 06-07-2023 Bilirubin Ql (U) Negative Normal Negative [facility] Comment on above: Order Comment: Speci men Type: URINE SPECIMEN [facility] Address: [address] [place] [address] Performed By: #### 2 4356-8 #### [facility] CLIA [id number] [address] [place] [address] [place] Clarity (Unsp spec) Clear Normal Clear [facility] Comment on above: Order Comment: Speci men Type: URINE SPECIMEN [facility] Address: [address] [place] [address] Performed By: #### 2 4356-8 #### [facility] CLIA [id number] [address] [place] [address] [place] Color (U) Light Yellow Normal Yellow [facility] Comment on above: Order Comment: Speci men Type: URINE SPECIMEN [facility] Address: [address] [place] [address] Performed By: #### 2 4356-8 #### [facility] CLIA [id number] [address] [place] [address] [place] Epithelial cells LM.HPF (Urine sed) [#/Area] Few Normal [facility] Comment on above: Order Comment: Speci men Type: URINE SPECIMEN [facility] Address: [address] [place] [address] Performed By: #### 2 4356-8 #### [facility] CLIA [id number] [address] [place] [address] [place] Glucose Test strip (U) [Mass/Vol] Trace Normal Trace, Negative [facility] Comment on above: Order Comment: Speci men Type: URINE SPECIMEN [facility] Address: [address] [place] [address] Performed By: #### 2 4356-8 #### [facility] CLIA [id number] [address] [place] [address] [place] Hemoglobin Ql (U) Negative Normal Negative, Trace [facility] Comment on above: Order Comment: Speci men Type: URINE SPECIMEN [facility] Address: [address] [place] [address] Performed By: #### 2 4356-8 #### [facility] CLIA [id number] [address] [place] [address] [place] Ketones Ql (U) Negative Normal Negative, Trace [facility] Comment on above: Order Comment: Speci men Type: URINE SPECIMEN [facility] Address: [address] [place] [address] Performed By: #### 2 4356-8 #### [facility] CLIA [id number] [address] [place] [address] [place] Leukocyte esterase Test strip Ql (U) Negative Normal Negative, 25 Souleymane/uL [facility] Comment on above: Order Comment: Speci men Type: URINE SPECIMEN [facility] Address: [address] [place] [address] Performed By: #### 2 4356-8 #### [facility] CLIA [id number] [address] [place] [address] [place] Nitrite Ql (U) Negative Normal Negative [facility] Comment on above: Order Comment: Speci men Type: URINE SPECIMEN [facility] Address: [address] [place] [address] Performed By: #### 2 4356-8 #### [facility] CLIA [id number] [address] [place] [address] [place] pH (U) 6.5 [pH] Normal 5.0-8.0 [facility] Comment on above: Order Comment: Speci men Type: URINE SPECIMEN [facility] Address: [address] [place] [address] Performed By: #### 2 4356-8 #### [facility] CLIA [id number] [address] [place] [address] [place] Protein (U) [Mass/Vol] Negative Normal Trace , Negative [facility] Comment on above: Order Comment: Speci men Type: URINE SPECIMEN [facility] Address: [address] [place] [address] Performed By: #### 2 4356-8 #### [facility] CLIA [id number] [address] [place] [address] [place] RBC LM.HPF (Urine sed) [#/Area] 0-3 /HPF Normal 0-3 /HPF [facility] Comment on above: Order Comment: Speci men Type: URINE SPECIMEN Ordering Facility: [facility] Address: [address] [place] [address] Performed By: #### 2 4356-8 #### [facility] CLIA [id number] [address] [place] [address] [place] Specific gravity (U) [Rel density] 1.018 Normal 1.005-1.030 [facility] Comment on above: Order Comment: Speci men Type: URINE SPECIMEN Ordering Facility: [facility] Address: [address] [place] [address] Performed By: #### 2 4356-8 #### [facility] CLIA [id number] [address] [place] [address] Urobilinogen Ql (U) Negative Normal Negative [facility] Comment on above: Order Comment: Speci men Type: URINE SPECIMEN Ordering Facility: [facility] Address: [address] [place] [address] Performed By: #### 2 4356-8 #### [facility] CLIA [id number] [address] [place] [address] [place] WBC LM.HPF (Urine sed) [#/Area] 0-5 /HPF Normal 0-5 /HPF [facility] Comment on above: Order Comment: Speci men Type: URINE SPECIMEN Ordering Facility: [facility] Address: [address] [place] [address] Performed By: #### 2 4356-8 #### [facility] CLIA [id number] [address] [place] [address] [place] ALLIED HEALTHon 06-06-2023 ALLIED [facility]ALTH HNO ID: [id number] Author: Carley Schwartz RT(R) Service: Radiology Author Type: Technologist Type: Allied Health Filed: 06/06/2023 5:49 PM Note Text: Radiology Service Progress Note PATIENT NAME: Damari Rios DATE OF SERVICE: June 06, 2023 TIME: 5:48 PM PATIENT IDENTITY VERIFICATION COMPLETED USING TWO (2) IDENTIFIERS: Name and Date of confirmed by patient verbally and Name and Date of confirmed by identification band. FALL SCREENING: Has the patient had 2 falls in the last year or 1 fall with injury or currently using an Ambulatory Assistive Device (Walker, Cane, Wheelchair, Crutches, etc.)? Inpatient: Screened on floor PATIENT GENDER DATA: Female. status: : No status: NO. PATIENT RELEVANT IMPLANT DATA REVIEWED: Not Applicable RADIOLOGY DEPARTMENT: CT; Exam(s) Completed: Abdomen/Pelvis PERIPHERAL IV DATA: Not applicable SIGNED BY: RT Giuliano(R) June 06, 2023 5:48 PM [facility] HNO ID: [id number] Author: Suzanne Soliz RT(R) Service: Radiology Author Type: Technologist Type: Allied Health Filed: 06/06/2023 1:35 PM Note Text: Radiology Service Progress Note PATIENT NAME: Damari Rios DATE OF SERVICE: June 06, 2023 TIME: 1:35 PM PATIENT IDENTITY VERIFICATION COMPLETED USING TWO (2) IDENTIFIERS: Name and Date of confirmed by patient verbally and Name and Date of confirmed by identification band. FALL SCREENING: Has the patient had 2 falls in the last year or 1 fall with injury or currently using an Ambulatory Assistive Device (Walker, Cane, Wheelchair, Crutches, etc.)? Inpatient: Screened on floor PATIENT GENDER DATA: Female. status: : No status: NO. PATIENT RELEVANT IMPLANT DATA REVIEWED: Not Applicable RADIOLOGY DEPARTMENT: Ultrasound PERIPHERAL IV DATA: Not applicable SIGNED BY: RT Antoine(R) June 06, 2023 1:35 PM [facility] HNO ID: [id number] Author: Levy Tubbs RT(R) Service: Radiology Author Type: Technologist Type: Allied Health Filed: 06/06/2023 10:51 AM Note Text: Radiology Service Progress Note PATIENT NAME: Damari Rios DATE OF SERVICE: June 06, 2023 TIME: 10:50 AM PATIENT IDENTITY VERIFICATION COMPLETED USING TWO (2) IDENTIFIERS: Name and Date of confirmed by patient verbally and Name and Date of confirmed by identification band. FALL SCREENING: Has the patient had 2 falls in the last year or 1 fall with injury or currently using an Ambulatory Assistive Device (Walker, Cane, Wheelchair, Crutches, etc.)? Inpatient: Screened on floor PATIENT GENDER DATA: NO PATIENT RELEVANT IMPLANT DATA REVIEWED: Yes RADIOLOGY DEPARTMENT: General X-ray: Exam(s) Completed: Chest X-Ray Abdomen X-Ray: Abdomen PERIPHERAL IV DATA: Not applicable SIGNED BY: Levy Tubbs RT(R) June 06, 2023 10:50 AM Normal [facility] CBC panel Auto (Bld)on 06-06 Erythrocyte distribution width (RBC) [Ratio] 13.0 % Normal 11.5-15.0 [facility] Comment on above: Order Comment: Renetta la Type: BLOOD SPECIMENOrdering Facility: [facility] Address: [address] [place] [address] Performed By: #### 5 8410-2 ####[facility] [id number] [place] [address] [place] Hematocrit (Bld) [Volume fraction] 40.9 % Normal 36.0-46.0 [facility] Comment on above: Order Comment: Renetta la Type: BLOOD SPECIMENOrdering Facility: [facility] Address: [address] [place] [address] Performed By: #### 5 8410-2 ####[facility] [id number] [place] [address] [place] Hemoglobin (Bld) [Mass/Vol] 13.4 g/dL Normal 11.5-15.5 [facility] Comment on above: Order Comment: Renetta la Type: BLOOD SPECIMENOrdering Facility: [facility] Address: [address] [place] [address] Performed By: #### 5 8410-2 ####[facility] [id number] [place] [address] [place] MCH (RBC) [Entitic mass] 30.4 pg Normal 26.0-34.0 [facility] Comment on above: Order Comment: Speci men Type: BLOOD SPECIMENOrdering Facility: [facility] Address: [address] [place] [address] Performed By: #### 5 8410-2 ####[facility] [id number] [place] [address] [place] MCHC (RBC) [Mass/Vol] 32.8 g/dL Normal 30.5-36.0 [facility] Comment on above: Order Comment: Speci men Type: BLOOD SPECIMENOrdering Facility: [facility] Address: [address] [place] [address] Performed By: #### 5 8410-2 ####[facility] [id number] [place] [address] [place] MCV (RBC) [Entitic vol] 92.7 fL Normal 80.0-100.0 [facility] Comment on above: Order Comment: Speci men Type: BLOOD SPECIMENOrdering Facility: [facility] Address: [address] [place] [address] Performed By: #### 5 8410-2 ####[facility] [id number] [place] [address] [place] Nucleated RBC (Bld) [#/Vol] 10*3/uL Normal <0.01 [facility] Comment on above: Order Comment: Speci men Type: BLOOD SPECIMENOrdering Facility: [facility] Address: [address] [place] [address] Performed By: #### 5 8410-2 ####[facility] [id number] [place] [address] [place] Platelet mean volume (Bld) [Entitic vol] 8.6 fL Low 9.0-12.7 [facility] Comment on above: Order Comment: Speci men Type: BLOOD SPECIMENOrdering Facility: [facility] Address: [address] [place] [address] Performed By: #### 5 8410-2 ####[facility] [id number] [place] [address] [place] Platelets (Bld) [#/Vol] 339 10*3/uL Normal 150-400 [facility] Comment on above: Order Comment: Speci men Type: BLOOD SPECIMENOrdering Facility: [facility] Address: [address] [place] [address] Performed By: #### 5 8410-2 ####[facility] [id number] [place] [address] [place] RBC (Bld) [#/Vol] 4.41 10*6/uL Normal 3.90-5.20 [facility] Comment on above: Order Comment: Speci men Type: BLOOD SPECIMENOrdering Facility: [facility] Address: [address] [place] [address] Performed By: #### 5 8410-2 ####[facility] [id number] [place] [address] [place] WBC (Bld) [#/Vol] 15.26 10*3/uL High 3.70-11.00 [facility] Comment on above: Order Comment: Speci men Type: BLOOD SPECIMENOrdering Facility: [facility] Address: [address] [place] [address] Performed By: #### 5 8410-2 ####[facility] [id number] [place] [address] [place] CK TOTAL AND CK-MBon 023 CK [Catalytic activity/Vol] 32 U/L Low 42-196 [facility] Comment on above: Order Comment: Speci men Type: BLOOD SPECIMENOrdering Facility: [facility] Address: [address] [place] [address] Performed By: #### H STNT, CKCKMB ####[facility] [id number] [place] [address] [place] CK.MB [Mass/Vol] 1.1 ng/mL Normal <4.4 [facility] Comment on above: Order Comment: Speci men Type: BLOOD SPECIMENOrdering Facility: [facility] Address: [address] [place] [address] Performed By: #### H STNT, CKCKMB ####[facility] [id number] [address] [place] CK.MB [Ratio] Normal [facility] Comment on above: Order Comment: Speci men Type: BLOOD SPECIMENOrdering Facility: [facility] Address: [address] [place] [address] Result Comment: CK M B % not reported with CK <100 U/L. Performed By: #### H STNT, CKCKMB ####[facility] [id number] [address] [place] CNOVon 06-06-2023 CNOV Office Visit (PLMLBH ) DAMARI RIOS ([id number]) 1975 F Date Time Provider Department 06/06/23 10:00 AM [facility] PULM FCT 1PLMLBH During your visit today, we recorded the following information about you: Dania Sosa RRT 06/06/2023 10:20 AM Signed PULM FUNCTION SMARTBLOCK: Provider: Melinda Mcqueen APRN.[facility] Oximetry - Ambulation: 1 Dania Sosa RRT 06/06/2023 10:20 AM Signed RESPIRATORY THERAPY OXIMETRY WITH AMBULATION Oximetry with Ambulation Test for This Encounter O2 Device O2 Adapter NC O2 Flow SpO2% HR Activity Ft Walked (ft) Time (min) Avg Speed (MPH) R/A 99 67 Resting R/A 97 83 Walking, usual pace General Information Pulse Oximetry Site Total Time Spent 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 Patient reports feeling foggy with activity, requiring periods of rest x2 Referring Provider: MELINDA MCQUEEN [[id number]] Allergies As of Date: 06/06/2023 Noted Allergy Reaction PENICILLINS 03/13/2005 10 - Anaphylaxis BACTRIM (SULFAMETHOXAZOLE-TRIM ETH*03/13/2005 CODEINE 03/13/2005 2 - Rash ULTRAM (TRAMADOL HCL) 03/13/2005 5 - Intolerance Date Reviewed: 06/06/2023 Reviewed by: Marichuy Kwon, YUNI - Fully Assessed Reason for Visit: Dyspnea On Exertion [1283] Primary Visit Diagnosis:History of pulmonary embolism [Z86.711] Prescriptions as of 06/06/2023 - pantoprazole DR (PROTONIX) 40 mg tablet Take 40 mg by mouth once daily. - carvedilol (COREG) 6.25 mg tablet Take 6.25 mg by mouth two times a day with meals. - famotidine (PEPCID) 40 mg tablet Take 40 mg by mouth daily at bedtime. - Nebulizers Lifetime supplies - Nebulizer and Compressor For Neb Dispense one nebulizer with lifetime supplies - predniSONE (DELTASONE) 10 mg tablet 4 tabs for 4 days, 3 tabs for 3 days, 2 tabs for 2 days, 1 tab for 2 days - ondansetron (ZOFRAN) 4 mg tablet Take 1 tablet by mouth every 8 hours as needed. - EPINEPHrine (EPIPEN) 0.3 mg/0.3 mL auto-injector Use as directed for bee sting - tamsulosin ER (FLOMAX) 0.4 mg cap Take 1 capsule by mouth once daily. 30 minutes after the same meal each day. - albuterol (PROVENTIL) 2.5 mg /3 mL (0.083 %) nebulizer solution Use 3 mL via nebulizer every 6 hours as needed for Wheezing/Shortness of Breath. Inhale over 5-15 minutes - albuterol HFA (PROAIR HFA) 90 mcg/actuation inhaler 2 Puffs every 6 hours as needed for Wheezing/Shortness of Breath. Take as directed - loratadine (CLARITIN) 10 mg tablet Take 1 tablet by mouth once daily. Facility-Administered Medications as of 06/06/2023 - oxyCODONE IR 5 mg tab(s) (ROXICODONE) - ondansetron (PF) 4 mg injection (ZOFRAN) - sodium chloride 0.9 % (flush) 2-10 mL (BD POSIFLUSH) - perflutren lipid microspheres 1.1 mg/mL 1.3 mL injection (DEFINITY) - azithromycin 500 mg tab(s) (ZITHROMAX) - lidocaine 4 % 1 Patch (SALONPAS) - lidocaine patch - REMOVE - lidocaine - VERIFY PATCH - calcium carbonate 1,000 mg chewable tab(s) (TUMS) - predniSONE 40 mg tab(s) (DELTASONE) - carvedilol 6.25 mg tab(s) (COREG) - amLODIPine 5 mg tab(s) (NORVASC) - apixaban 10 mg tab(s) (ELIQUIS) - apixaban 5 mg tab(s) (ELIQUIS) - famotidine 40 mg tab(s) (PEPCID) - iv contrast (radiology procedure) - tamsulosin 0.4 mg cap(s) (FLOMAX) - albuterol 2.5 mg /3 mL (0.083 %) 2.5 mg (PROVENTIL) - albuterol HFA 90 mcg/actuation 2 Puff (PROVENTIL HFA, VENTOLIN HFA) - acetaminophen 650 mg tab(s) (TYLENOL) - melatonin 3 mg tab(s) - NaCl 0.9% iv flush bag Problem List As Of Date 06/06/2023 Noted Resolved Sprain of shoulder, right [S43.401A] 05/30/2005 BIPOLAR - MOST RECENTLY MIXED MILD [F31.61] 03/27/2006 04/16/2008 ANXIETY STATE NOS [F41.1] 03/27/2006 04/16/2008 PANIC DISORDER WITHOUT AGORAPHOBIA [F41.0] 03/27/2006 04/16/2008 JOINT PAIN-PELVIS [M25.559] 01/28/2008 PAIN IN JOINT, LOWER LEG [M25.569] 01/28/2008 Myofascial pain [M79.18] 06/14/2011 Lumbar sprain and strain 06/14/2011 Anxiety [F41.9] 02/15/2012 Asthma [J45.909] 02/15/2012 Shoulder pain [M25.519] 03/18/2012 Abdominal pain, epigastric [R10.13] 03/27/2012 Abdominal pain, unspecified site [R10.9] 04/03/2012 10/14/2013 Acute gastritis without mention of hemorrhage [*04/03/2012 Community acquired pneumonia [J18.9] 03/17/2015 07/24/2019 Bilateral pleural effusion [J90] 03/17/2015 07/24/2019 SOB (shortness of breath) [R06.02] 03/17/2015 07/24/2019 Sinus tachycardia [R00.0] 03/17/2015 PID (acute pelvic inflammatory disease) [N73.0] 03/17/2015 Asthma in adult [J45.909] 03/17/2015 Fatigue [R53.83] 03/17/2015 Dysphagia [R13.10] 03/17/2015 Cough [R05.9] 06/19/2019 Renal calculus, right [N20.0] 07/24/2019 Other pulmonary embolism wi (more content not included)... [facility] CONSULTon 06-06-2023 CONSULT HNO ID: [id number] Author: Marylin Arevalo MD Service: Clinical Cardiology Author Type: Physician Type: Consults Filed: 06/06/2023 1:50 PM Note Text: [facility]ARDI[facility]ASCULAR [facility]ICINE CONSULT NOTE [facility] Damari Rios [id number] PRIMARY SERVICE: Medicine CONSULTING SERVICE: CVM TEAM B DATE OF ADMISSION: 06/01/2023 DATE OF CONSULT: 06/06/2023 REASON FOR CONSULT CP, EKG changes HISTORY OF PRESENT ILLNESS Damari Rios is a 47 year old female with PMH of asthma and HTN presents with SOB and chest pain. She had right salpingo-oophorectomy and a urethral sling placed at about 1 week ago. Troponin levels negative. CTA shows acute PE. She is currently on Eliquis. Today reported chest burning and persistent GARCÍA, EKg shows non specific T waves changes, most likely consistent with known PE. She does report non radiating chest burning for quite some time, feels like something is stuck in her throat. No LE edema. Reports dizziness when she was walking with PT/ OT. No fever or chills. No cough or wheezing. No abd pain/n/v/d. PAST MEDICAL HISTORY PAST MEDICAL HISTORY Diagnosis Date Bipolar I disorder, most recent episode (or current) unspecified Calculus of bile duct without mention of cholecystitis, with obstruction Irritable bowel syndrome Kidney stone Known health problems: none 04/04/2021 Other and unspecified ovarian cyst Other cholecystitis Seasonal allergies Temporomandibular joint disorders, unspecified Unspecified asthma(493.90) PAST SURGICAL HISTORY Procedure Laterality Date COLONOSCOP W/ OR W/O BRSH SPEC 04/03/12 pt discomfort, normal to transverse colon - ordered BE EGD W/O BRSH SPECIMEN W/BX 04/03/12 mild gastritis HYSTERECTOMY HX 2017 LAPAROSCOPIC CHOLEYCYSTECTOMY 2000 Cholecystectomy, lap LIGATE FALLOPIAN TUBE 1998 NONE 04/04/2021 PAST SURGICAL HISTORY OF 2016 ureteral stent placed REMOVAL ADENOIDS,PRIMARY,<12 Y/O 2000 Adenoidectomy REMOVAL OF TONSILS,<12 Y/O 2000 Tonsillectomy FAMILY HISTORY FAMILY HISTORY Problem Relation Age of Onset Hypertension Mother Breast Cancer Paternal Grandmother lung GI Paternal Grandfather Diabetes Maternal Grandmother from lung ca Diabetes Maternal Grandfather from unk cause Colon Cancer Maternal Uncle age 43 other (POTS) Sister other (Lupus) Other niece other (lupus) Other Anesthesia Problems No Family History Colon Polyps No Family History SOCIAL HISTORY Social History Tobacco Use Smoking status: Never Smokeless tobacco: Never Vaping Use Vaping Use: Never used Substance Use Topics Alcohol use: Yes Comment: very rare- maybe 2x/ year Drug use: No HOME MEDICATIONS pantoprazole DR (PROTONIX) 40 mg tabletTake 40 mg by mouth once daily.Disp: Rfl: carvedilol (COREG) 6.25 mg tabletTake 6.25 mg by mouth two times a day with meals.Disp: Rfl: famotidine (PEPCID) 40 mg tabletTake 40 mg by mouth daily at bedtime.Disp: Rfl: NebulizersLifetime suppliesDisp: 1 EachRfl: 0 ondansetron (ZOFRAN) 4 mg tabletTake 1 tablet by mouth every 8 hours as needed.Disp: 10 tabletRfl: 0 tamsulosin ER (FLOMAX) 0.4 mg capTake 1 capsule by mouth once daily. 30 minutes after the same meal each day.Disp: 30 capsuleRfl: 0 albuterol (PROVENTIL) 2.5 mg /3 mL (0.083 %) nebulizer solutionUse 3 mL via nebulizer every 6 hours as needed for Wheezing/Shortness of Breath. Inhale over 5-15 minutesDisp: 100 VialRfl: 5 albuterol HFA (PROAIR HFA) 90 mcg/actuation inhaler2 Puffs every 6 hours as needed for Wheezing/Shortness of Breath. Take as directedDisp: 3 InhalerRfl: 0 Nebulizer and Compressor For NebDispense one nebulizer with lifetime suppliesDisp: 1 EachRfl: 0 predniSONE (DELTASONE) 10 mg tablet4 tabs for 4 days, 3 tabs for 3 days, 2 tabs for 2 days, 1 tab for 2 daysDisp: 31 tabletRfl: 0 (Patient not taking: Reported on 04/04/2021 ) EPINEPHrine (EPIPEN) 0.3 mg/0.3 mL auto-injectorUse as directed for bee stingDisp: 2 EachRfl: 1 loratadine (CLARITIN) 10 mg tabletTake 1 tablet by mouth once daily.Disp: 30 tabletRfl: 5 (Patient not taking: Reported on 06/19/2019 ) INPATIENT MEDICATIONS Current Facility-Administered Medications Medication Dose Route Frequency iv contrast (radiology procedure) INTRAVENOUS DIRECTED PRN tamsulosin 0.4 mg cap(s) (FLOMAX) 0.4 mg ORAL DAILY albuterol 2.5 mg /3 mL (0.083 %) 2.5 mg (PROVENTIL) 2.5 mg INHALATION q 6 H PRN albuterol HFA 90 mcg/actuation 2 Puff (PROVENTIL HFA, VENTOLIN HFA) 2 Puff OTHER q 6 H PRN acetaminophen 650 mg tab(s) (TYLENOL) 650 mg ORAL q 6 H PRN melatonin 3 mg tab(s) 3 mg ORAL DAILY (8 PM) NaCl 0.9% iv flush bag 20 mL INTRAVENOUS PRN carvedilol 6.25 mg tab(s) (COREG) 6.25 mg ORAL BID w MEALS amLODIPine 5 mg tab(s) (NORVASC) 5 mg ORAL DAILY apixaban 10 mg tab(s) (ELIQUIS) 10 mg ORAL BID Followed by [START ON 06/09/2023] apixaban 5 mg tab(s) (ELIQUIS) 5 m (more content not included)... Normal [facility] CT FLANK WO IVCONon 06-06-[address] FLANK WO IVCON * * *Final Report* * * DATE OF EXAM: Jun 06 2023 5:53PM [facility] 0529 - CT FLANK WO IVCON / PROCEDURE REASON: Flank pain, kidney stone suspected () * * * * Physician Interpretation * * * * RESULT: EXAMINATION: CT ABDOMEN AND PELVIS WITHOUT IV CONTRAST (Renal stone protocol) CLINICAL HISTORY: Unspecified flank pain. TECHNIQUE: Non-contrast imaging of the abdomen and pelvis was performed through the urinary tract. Study performed without intravenous or oral contrast to evaluate for urinary tract calculus. MQ: [id number] Contrast: IV contrast: None Oral contrast: None CT Radiation dose: Integrated dose-length product (DLP) for this visit = 202 mGy*cm. CT Dose Reduction Employed: Automated exposure control(AEC) and iterative recon COMPARISON: 06/01/2023 RESULT: Limitations: Unenhanced imaging is limited for the evaluation of some renal and other intra-abdominal and pelvic pathology. Urinary Tract: Right kidney and ureter: peripelvic calculi measuring up to 6 mm. Numerous pelvic phleboliths. No clear ureteral stone. No hydronephrosis. No finding to suggest cyst or mass in the unenhanced kidney. Left kidney and ureter: No calculus. No hydronephrosis. No finding to suggest cyst or mass in the unenhanced kidney. Bladder: No calculus. Abdomen and Pelvis: Liver: Unremarkable. Biliary: S/p cholecystectomy. Spleen: No splenomegaly. Pancreas: Unremarkable. Adrenals: Normal. GI Tract: No bowel dilation. Normal appendix. Lymph Nodes: No lymphadenopathy. Mesentery/peritoneum: No ascites. Vasculature: No abdominal aortic or iliac artery aneurysm. Pelvis: No mass or ascites. Bones and Soft Tissues: Thoracic lesion L2 vertebral body measures up to 1.5 cm Lower thorax: Tiny bilateral pleural effusions. Product Design Specialist (topogram) images: Unremarkable. IMPRESSION: Peripelvic nonobstructing right renal calculi. Tiny bilateral pleural effusions. Lucent lesion L2 vertebral body is indeterminate. This could be further characterized with MRI and/or nuclear medicine bone scan if necessary. ACTIONABLE RESULT: FOLLOW-UP Acuity: Actionable Findings: Musculoskeletal/Rheuma tologic System Routing Code: MSK_1 Recommendation: Unlisted Recommendation (see report) Time Frame: At the discretion of the clinical team. COMMUNICATION: Results will be communicated with the ordering provider via [employer] staff message or phone message by [facility] within 2 business days of report finalization. --END OF FINDING-- Transcribed Using Voice Recognition Transcribe Date/Time: Jun 06 2023 6:12P Dictated by: SUPA BEAR MD This examination was interpreted and the report reviewed and electronically signed by: SUPA BEAR MD on Jun 06 2023 6:19PM EST [id number] ACTIONABLE Invalid Interpretation Code [facility] Comprehensive metabolic 2000 panelon 06-06-2023 Albumin [Mass/Vol] 4.3 g/dL Normal 3.9-4.9 [facility] Comment on above: Order Comment: Speci men Type: BLOOD SPECIMEN Ordering Facility: [facility] Address: [address] [place] [address] Performed By: #### P TTAC #### [facility] CLIA [id number] [address] [place] [address] [place] ALP [Catalytic activity/Vol] 63 U/L Normal 34-123 [facility] Comment on above: Order Comment: Speci men Type: BLOOD SPECIMEN Ordering Facility: [facility] Address: [address] [place] [address] Performed By: #### P TTAC #### [facility] CLIA [id number] [address] [place] [address] [place] ALT [Catalytic activity/Vol] 9 U/L Normal 7-38 [facility] Comment on above: Order Comment: Speci men Type: BLOOD SPECIMEN Ordering Facility: [facility] Address: [address] [place] [address] Performed By: #### P TTAC #### [facility] CLIA [id number] [address] [place] [address] [place] Anion gap [Moles/Vol] 11 mmol/L Normal 9-18 [facility] Comment on above: Order Comment: Speci men Type: BLOOD SPECIMEN Ordering Facility: [facility] Address: [address] [place] [address] Performed By: #### P TTAC #### [facility] CLIA [id number] [address] [place] [address] [place] AST [Catalytic activity/Vol] 10 U/L Low 13-35 [facility] Comment on above: Order Comment: Speci men Type: BLOOD SPECIMEN Ordering Facility: [facility] Address: [address] [place] [address] Performed By: #### P TTAC #### [facility] CLIA [id number] [address] [place] [address] [place] Bilirubin [Mass/Vol] 0.4 mg/dL Normal 0.2-1.3 [facility] Comment on above: Order Comment: Speci men Type: BLOOD SPECIMEN Ordering Facility: [facility] Address: [address] [place] [address] Performed By: #### P TTAC #### [facility] CLIA [id number] [address] [place] [address] [place] Calcium [Mass/Vol] 10.0 mg/dL Normal 8.5-10.2 [facility] Comment on above: Order Comment: Speci men Type: BLOOD SPECIMEN Ordering Facility: [facility] Address: [address] [place] [address] Performed By: #### P TTAC #### [facility] CLIA [id number] [address] [place] [address] [place] Chloride [Moles/Vol] 102 mmol/L Normal 97-105 [facility] Comment on above: Order Comment: Speci men Type: BLOOD SPECIMEN Ordering Facility: [facility] Address: [address] [place] [address] Performed By: #### P TTAC #### [facility] CLIA [id number] [address] [place] [address] [place] CO2 [Moles/Vol] 26 mmol/L Normal 22-30 [facility] Comment on above: Order Comment: Speci men Type: BLOOD SPECIMEN Ordering Facility: [facility] Address: [address] [place] [address] Performed By: #### P TTAC #### [facility] CLIA [id number] [address] [place] [address] [place] Creatinine [Mass/Vol] 1.03 mg/dL High 0.58-0.96 [facility] Comment on above: Order Comment: Renetta la Type: BLOOD SPECIMEN Ordering Facility: [facility] Address: [address] [place] [address] Performed By: #### P TTAC #### [facility] CLIA [id number] [address] [place] [address] [place] Creatinine and Glomerular filtration rate.predicted panel (S/P/Bld) 68 mL/min/1.73m??? Normal >=60 [facility] Comment on above: Order Comment: Renetta la Type: BLOOD SPECIMEN Ordering Facility: [facility] Address: [address] [place] [address] Result Comment: [facility] Glomerular Filtration Rate (eGFR) is calculated using the 2020 CKD-EPI creatinine equation. This equation utilizes serum creatinine, sex, and age as parameters. The creatinine assay has traceable calibration to isotope dilution-mass spectrometry. Refer to KDIGO guidelines for clinical interpretation. In patients with unstable renal function, e.g. those with acute kidney injury, the eGFR may not accurately reflect actual GFR. Performed By: #### P TTAC #### [facility] CLIA [id number] [address] [place] [address] [place] Glucose [Mass/Vol] 100 mg/dL High 74-99 [facility] Comment on above: Order Comment: Renetta la Type: BLOOD SPECIMEN Ordering Facility: [facility] Address: [address] [place] [address] Result Comment: The [place] [employer] (ADA) provides guidance for cutoff values for fasting glucose and random glucose. The ADA defines fasting as no caloric intake for at least 8 hours. Fasting plasma glucose results between 100 to 125 mg/dL indicate increased risk for diabetes (prediabetes). Fasting plasma glucose results greater than or equal to 126 mg/dL meet the criteria for diagnosis of diabetes. In the absence of unequivocal hyperglycemia, results should be confirmed by repeat testing. In a patient with classic symptoms of hyperglycemia or hyperglycemic crisis, random plasma glucose results greater than or equal to 200 mg/dL meet the criteria for diagnosis of diabetes. Reference: Standards of Medical Care in Diabetes 2016, [place] [employer]. Diabetes Care. 2016.39(Suppl 1). Performed By: #### P TTAC #### [facility] CLIA [id number] [address] [place] [address] [place] Potassium [Moles/Vol] 4.2 mmol/L Normal 3.7-5.1 [facility] Comment on above: Order Comment: Speci men Type: BLOOD SPECIMEN Ordering Facility: [facility] Address: [address] [place] [address] Performed By: #### P TTAC #### [facility] CLIA [id number] [address] [place] [address] [place] Protein [Mass/Vol] 7.4 g/dL Normal 6.3-8.0 [facility] Comment on above: Order Comment: Renetta la Type: BLOOD SPECIMEN Ordering Facility: [facility] Address: [address] [place] [address] Performed By: #### P TTAC #### [facility] CLIA [id number] [address] [place] [address] [place] Sodium [Moles/Vol] 139 mmol/L Normal 136-144 [facility] Comment on above: Order Comment: Maikoli abhinav Type: BLOOD SPECIMEN Ordering Facility: [facility] Address: [address] [place] [address] Performed By: #### P TTAC #### [facility] CLIA [id number] [address] [place] [address] [place] Urea nitrogen [Mass/Vol] 31 mg/dL High 7-21 [facility] Comment on above: Order Comment: Maikoli abhinav Type: BLOOD SPECIMEN Ordering Facility: [facility] Address: [address] [place] [address] Performed By: #### P TTAC #### [facility] CLIA [id number] [address] [place] [address] [place] ECG COMPLETEon 06-06-2023 ECG COMPLETE Ventricular Rate : 5 7 BPM Atrial Rate : 57 BPM P-R Interval : 160 ms QRS Duration : 80 ms Q-T Interval : 412 ms QTC Calculation(Bazett) : 401 ms Calculated P [place] : 51 degrees Calculated R [place] : 31 degrees Calculated T [place] : 98 degrees SINUS BRADYCARDIA WITH SINUS ARRHYTHMIA T WAVE ABNORMALITY, CONSIDER LATERAL ISCHEMIA ABNORMAL ECG WHEN COMPARED WITH ECG OF 01-JUN-2023 15:34, MINIMAL CRITERIA FOR INFERIOR INFARCT ARE NO LONGER PRESENT T WAVE INVERSION NO LONGER EVIDENT IN INFERIOR LEADS T WAVE INVERSION MORE EVIDENT IN LATERAL LEADS Confirmed by DEEJAY ASHRAF M.D. ([id number]) on 06/06/2023 2:49:14 PM NAME : DAMARI RIOS PID : [id number] : 1975 Gender : Female Race : ORD : [id number] Procedure Date : Jun 06 2023 09:22:38 Edit Date : Jun 06 2023 14:49:19 Diagnosis: SINUS BRADYCARDIA WITH SINUS ARRHYTHMIA T WAVE ABNORMALITY, CONSIDER LATERAL ISCHEMIA ABNORMAL ECG WHEN COMPARED WITH ECG OF 01-JUN-2023 15:34, MINIMAL CRITERIA FOR INFERIOR INFARCT ARE NO LONGER PRESENT T WAVE INVERSION NO LONGER EVIDENT IN INFERIOR LEADS T WAVE INVERSION MORE EVIDENT IN LATERAL LEADS Confirmed by DEEJAY ASHRAF M.D. ([id number]) on 06/06/2023 2:49:14 PM Test Reason : Chest Pain Location : 40 : 5E L 508 Overread By : DEEJAY ASHRAF M.D. Edited By : DEEJAY ASHRAF M.D. Referred By : , Acquired by : JOSE ALMAGUER Normal [facility] HIGH SENSITIVITY TROPONIN To n 06-06-2023 Troponin T.cardiac High sensitivity method [Mass/Vol] <6 Normal <12 [facility] Comment on above: Order Comment: Speci men Type: BLOOD SPECIMENOrdering Facility: [facility] Address: [address] [place] [address] Result Comment: When assessing risk for acute coronary syndromes: In patients undergoing blood draw greater than or equal to 2 hours from symptom onset, with history of very low to moderate risk and non-ischemic ECG, an initial hs-Troponin T less than 12 ng/L AND a 1 hour delta hs-Troponin T less than 3 ng/L should be considered very low risk for 30 day MACE. Performed By: #### H STNT, CKCKMB ####[facility] [id number] [place] [address] [place] Troponin T.cardiac High sensitivity method [Mass/Vol] <6 Normal <12 [facility] Comment on above: Order Comment: Renetta la Type: BLOOD SPECIMEN Ordering Facility: [facility] Address: [address] [place] [address] Result Comment: When assessing risk for acute coronary syndromes: In patients undergoing blood draw greater than or equal to 2 hours from symptom onset, with history of very low to moderate risk and non-ischemic ECG, an initial hs-Troponin T less than 12 ng/L AND a 1 hour delta hs-Troponin T less than 3 ng/L should be considered very low risk for 30 day MACE. Performed By: #### P TTAC #### [facility] [place] [id number] [address] [place] [id number] [place] Magnesium SerPl-mCncon 06-06 Magnesium [Mass/Vol] 2.1 mg/dL Normal 1.7-2.3 [facility] Comment on above: Order Comment: Renetta la Type: BLOOD SPECIMEN Ordering Facility: [facility] Address: [address] [place] [address] Performed By: #### P TTAC #### [facility] [place] [id number] [address] [id number] [place] NM CARDIAC PERF STRESS/PHARM on 06-06-2023 NM CARDIAC PERF STRESS/PHARM * * *Final Report* * * * * * SEE BOTTOM OF REPORT FOR ADDENDED TEXT * * * DATE OF EXAM: Jun 06 2023 1:17PM [facility] 0006 - NM CARDIAC PERF STRESS/PHARM / PROCEDURE REASON: Chest pain/anginal equiv, intermediate CAD risk, not treadmill candidate * * * * Physician Interpretation * * * * RESULT: PATIENT: Name: MRS. DAMARI RIOS Age: 47 years Gender: F CONCLUSIONS: Images were re-acquired after waiting further. 1. Inferior segment is now better visualized and appears unremarkable. 2. There is now a small area of mild ischemia the territory of the LAD. 3. Left ventricle is normal in size. The left ventricle systolic function is normal. 4. This is a low risk scan. LVEF % 73 Prior Study Comparison No prior nuclear cardiology exam available for comparison. Nuclear Med Report:1-Day Gated SPECT Myocardial Perfusion with Regadenoson Stress: Myocardial perfusion imaging was performed at rest 30 minutes following the IV injection of the radiotracer. The patient received 0.4 mg of regadenoson, via rapid IV push, immediately followed by radiotracer IV. Gated post stress tomographic imaging was performed 30 to 60 minutes later. See administered radiotracer and doses below. [facility] Date of service: 06/06/2023 11:47:39 AM Ordering Physician: ADRIANA SHELBY. Requesting Physician: ADRIANA SHELBY Indication: Assessment for suspected CAD Interpreting physician: Tania Stewart MD Height: 162.56 cm BSA: 1.82 m? Weight: 73.48 kg BMI: 27.8 kg/m? Imaging Protocol Limitation Reason G.I. uptake. Exam Type: Rest Stress Radiopharm: Tc-99m Tetrofosmin Tc-99m Tetrofosmin Dosage(mCi): 12.8 34.8 Atten Correction: not performed not performed Stress Agent: Regadenoson 0.4mg Supply provided from [facility] Resting Blood Press: 139/78 mmHg Image Quality The overall study imaging quality was deemed to be poor. The following technical issues were noted: G.I. uptake. FINDINGS: LVEF: 73 % LEFT VENTRICLE The left ventricle is normal in size. Left ventricular systolic function is normal. Right Ventricle The right ventricle is unseen or not interrogated. * * * Final (Updated) * * * ------ Stress ECG Report: [facility] Date of service: 06/06/2023 11:47:39 AM Ordering physician: ADRIANA SHELBY flow specialist: Aliyah Rosenberg Assembly Line Robot Operator: Lydia Parrish Interpreting physician: Fernandez Arevalo MD Patient name: MRS. DAMARI RIOS Age: 47 years Gender: F Height: 162.56 cm BSA: 1.82 m? Weight: 73.48 kg BMI: 27.8 kg/m? Indication: Chest pressure / Chest tightness Stress ECG Conclusion: Conclusion: Normal with exception due to borderline ST changes Stress ECG Summary: The patient's resting heart rate was 63 bpm and blood pressure was 139/78 mmHg. The patient received regadenoson 0.4 mg IVP over approximately 15 seconds followed immediately by injection of nuclear isotope. The test was terminated due to end of protocol. No symptoms provoked during stress. The maximum heart rate was 136 bpm, which is 78% of the predicted heart rate for age. Peak blood pressure was 121/60 mmHg. The double product achieved was [address]. Medications: Last Used NORVASC 1 Days ELIQUIS 1 Days COREG 1 Days PEPCID 1 Days PROTONIX 1 Days PREDNISONE 1 Days FLOMAX 1 Days Resting ECG: Normal Sinus Rhythm and Nonspecific T Wave Changes Symptoms at rest: No symptoms Pharamcologic Protocol: Regadenoson Stress Exercise Table: +------+ +--- +---+---+ Stage Time (min) HR SYS ORAINA +------+ +--- +---+---+ 1 1.3 136 121 60 +------+ +--- +---+---+ +-----+---+---+---+ HR SYS ORIANA +-----+---+---+---+ Final 136 121 60 +-----+---+---+---+ Recovery Table: +------+ +--- +---+---+ Stage Time (min) HR SYS ORIANA +------+ +--- +---+---+ 1 0.5 126 144 61 +------+ +--- +---+---+ 2 2.5 114 138 64 +------+ +--- +---+---+ 3 4.5 105 136 66 +------+ +--- +---+---+ 4 5.1 100 +------+ +--- +---+---+ Stress Observations: Resting HR: 63 bpm Peak HR: 136 bpm (78% MPHR) Resting BP: 139 / 78 mmHg Peak BP: 121 / 60 mmHg Rate Pressure Product (RPP): 05621 Stress Exercise Observations: Reason for test termination: end of protocol, Symptoms during test: No symptoms provoked during stress, Blood pressure response: Normal BP response, ST segment and T wave changes: Borderline ST depression (<1 mm or any upslope) during stress and Borderline ST depression (<1 mm or any upslope) after stress and Arrhythmias: No arrhythmias Comments: Dr. Arevalo providing direct supervision during test Metabolic Exercise Data Variable: Observed (more content not included)... Normal [facility] NURSING PROGon 06-06-2023 NURSING PROG HNO ID: [id number] Author: Aliyah Rosenberg RN Service: ? Author Type: Registered Nurse Type: Nursing Progress Note Filed: 06/06/2023 12:29 PM Note Text: Covering staff development nurse, Dr. Arevalo, was contacted. Availability verified for direct supervision of the stress test. No contraindications to stress test noted. Pt. Id confirmed, allergies reviewed. IV assessed for patency. Lexiscan administered and observed per protocol. Denies c/o discomfort or allergic reaction. Normal [facility] Phosphate SerPl-mCncon 06-06 Phosphate [Mass/Vol] 4.0 mg/dL Normal 2.7-4.8 [facility] Comment on above: Order Comment: Speci men Type: BLOOD SPECIMEN Ordering Facility: [facility] Address: [address] [place] [address] Performed By: #### 5 8410-2 #### [facility] CLIA [id number] [address] [place] [address] [place] US KIDNEY/BLADDERon 06-06-20 US KIDNEY/BLADDER * * *Final Report* * * DATE OF EXAM: Jun 06 2023 1:34PM [facility]55 - US KIDNEY/BLADDER / PROCEDURE REASON: Flank pain, kidney stone suspected * * * * Physician Interpretation * * * * RESULT: EXAMINATION: RENAL ULTRASOUND CLINICAL HISTORY: Flank pain TECHNIQUE: Sonography of the kidneys and urinary bladder was performed. Images were obtained and stored in a permanent archive. MQ: UR_1 COMPARISON: 06/01/2023 RESULT: Right Kidney: -Renal length: 10.0 cm -Parenchyma: Normal parenchymal echogenicity. Normal parenchymal thickness. -Collecting system: No hydronephrosis. -Calculus: Lower pole calculi measuring 5-8 mm -Lesion: None. Left Kidney: -Renal length: 10.6 cm -Parenchyma: Normal parenchymal echogenicity. Normal parenchymal thickness. -Collecting system: No hydronephrosis. -Calculus: No echogenic, shadowing calculus. -Lesion: None. Bladder: Normal sonographic appearance. IMPRESSION: Nonobstructing right nephrolithiasis. No hydronephrosis Transcribed Using Voice Recognition Transcribe Date/Time: Jun 06 2023 2:24P Dictated by: ARISTEO STEPHENSON MD This examination was interpreted and the report reviewed and electronically signed by: ARISTEO STEPHENSON MD on Jun 06 2023 2:30PM EST [id number] [facility] XR ABDOMEN 1V SUPINEon 06-06 XR ABDOMEN 1V SUPINE * * *Final Report* * * DATE OF EXAM: Jun 06 2023 10:46AM [facility] 5289 - XR ABDOMEN 1V SUPINE / PROCEDURE REASON: Ileus vs obstruction * * * * Physician Interpretation * * * * RESULT: ABDOMINAL X-RAY, 1 VIEW. CLINICAL INFORMATION: Ileus versus obstruction CURRENT STUDY: 06/06/2023 10:46 AM COMPARISON: CT abdomen pelvis 06/01/2023 TECHNIQUE: Supine abdomen, 2 image(s) RESULT: See impression. IMPRESSION: Lines, tubes, and devices: None. Bowel: No air-filled dilated loops of large or small bowel. Moderate colonic fecal burden. Other: Pelvic phleboliths. Endoscopy clips overlie the right hemipelvis. Cholecystectomy clips. Right renal calculi. Transcribed Using Voice Recognition Transcribe Date/Time: Jun 06 2023 10:47A Dictated by: JYOTHI DELGADO MD This examination was interpreted and the report reviewed and electronically signed by: JYOTHI DELGADO MD on Jun 06 2023 10:48AM EST [id number] Normal [facility] XR CHEST 1V FRONTAL PORTon 1 08-07-2022 XR CHEST 1V FRONTAL PORT * * *Final Report* * * DATE OF EXAM: Jun 06 2023 10:46AM [facility] 5376 - XR CHEST 1V FRONTAL PORT / PROCEDURE REASON: Chest pain * * * * Physician Interpretation * * * * RESULT: EXAMINATION: CHEST RADIOGRAPH (PORTABLE SINGLE VIEW AP) Exam Date/Time: 06/06/2023 10:46 AM CLINICAL HISTORY: Chest pain MQ: XCPR_5 Comparison: 1 day prior RESULT: See impression. IMPRESSION: Lines, tubes, and devices: None. Lungs and pleura: No focal infiltrate. No pleural effusion or pneumothorax. Cardiomediastinal silhouette: Stable cardiomediastinal silhouette. Transcribed Using Voice Recognition Transcribe Date/Time: Jun 06 2023 10:58A Dictated by: JYOTHI DELGADO MD This examination was interpreted and the report reviewed and electronically signed by: JYOTHI DELGADO MD on Jun 06 2023 10:59AM EST [id number] Normal [facility] Basic metabolic 2000 panelon 06-05-2023 Anion gap [Moles/Vol] 9 mmol/L Normal 9-18 [facility] Comment on above: Order Comment: Speci men Type: BLOOD SPECIMENOrdering Facility: [facility] Address: [address] [place] [address] Performed By: #### 2 4321-2, 60241-2 ####[facility] [id number] [place] [address] [place] Calcium [Mass/Vol] 9.7 mg/dL Normal 8.5-10.2 [facility] Comment on above: Order Comment: Speci men Type: BLOOD SPECIMENOrdering Facility: [facility] Address: [address] [place] [address] Performed By: #### 2 4321-2, 21198-1 ####[facility] [id number] [place] [address] [place] Chloride [Moles/Vol] 103 mmol/L Normal 97-105 [facility] Comment on above: Order Comment: Speci men Type: BLOOD SPECIMENOrdering Facility: [facility] Address: [address] [place] [address] Performed By: #### 2 4321-2, 45944-6 ####[facility] [id number] [address] [place] [id number] [place] CO2 [Moles/Vol] 27 mmol/L Normal 22-30 [facility] Comment on above: Order Comment: Speci men Type: BLOOD SPECIMENOrdering Facility: [facility] Address: [address] [place] [address] Performed By: #### 2 4321-2, 40698-8 ####[facility] [id number] [place] [address] [place] Creatinine [Mass/Vol] 0.95 mg/dL Normal 0.58-0.96 [facility] Comment on above: Order Comment: Speci men Type: BLOOD SPECIMENOrdering Facility: [facility] Address: [address] [place] [address] Performed By: #### 2 4321-2, 36443-5 ####[facility] [id number] [place] [address] [place] Creatinine and Glomerular filtration rate.predicted panel (S/P/Bld) 75 mL/min/1.73m??? Normal >=60 [facility] Comment on above: Order Comment: Speci men Type: BLOOD SPECIMENOrdering Facility: [facility] Address: [address] [place] [address] Result Comment: Nura mated Glomerular Filtration Rate (eGFR) is calculated using the 2020 CKD-EPI creatinine equation. This equation utilizes serum creatinine, sex, and age as parameters. The creatinine assay has traceable calibration to isotope dilution-mass spectrometry. Refer to KDIGO guidelines for clinical interpretation. In patients with unstable renal function, e.g. those with acute kidney injury, the eGFR may not accurately reflect actual GFR. Performed By: #### 2 4321-2, 54541-7 ####[facility] [id number] [place] [address] [place] Glucose [Mass/Vol] 102 mg/dL High 74-99 [facility] Comment on above: Order Comment: Renetta la Type: BLOOD SPECIMENOrdering Facility: [facility] Address: [address] [place] [address] Result Comment: The [place] Diabetes [employer] (ADA) provides guidance for cutoff values for fasting glucose and random glucose. The ADA defines fasting as no caloric intake for at least 8 hours. Fasting plasma glucose results between 100 to 125 mg/dL indicate increased risk for diabetes (prediabetes). Fasting plasma glucose results greater than or equal to 126 mg/dL meet the criteria for diagnosis of diabetes. In the absence of unequivocal hyperglycemia, results should be confirmed by repeat testing. In a patient with classic symptoms of hyperglycemia or hyperglycemic crisis, random plasma glucose results greater than or equal to 200 mg/dL meet the criteria for diagnosis of diabetes. Reference: Standards of Medical Care in Diabetes 2016, [place] [employer]. Diabetes Care. 2016.39(Suppl 1). Performed By: #### 2 4321-2, 75474-5 ####[facility] [id number] [place] [id number] [place] Potassium [Moles/Vol] 3.8 mmol/L Normal 3.7-5.1 [facility] Comment on above: Order Comment: Renetta la Type: BLOOD SPECIMENOrdering Facility: [facility] Address: [address] [place] [address] Performed By: #### 2 4321-2, 91002-3 ####[facility] [id number] [place] [id number] [place] Sodium [Moles/Vol] 139 mmol/L Normal 136-144 [facility] Comment on above: Order Comment: Renetta la Type: BLOOD SPECIMENOrdering Facility: [facility] Address: [address] [place] [address] Performed By: #### 2 4321-2, 73373-8 ####[facility] [id number] [place] [address] [place] Urea nitrogen [Mass/Vol] 26 mg/dL High 7-21 [facility] Comment on above: Order Comment: Speci men Type: BLOOD SPECIMENOrdering Facility: [facility] Address: [address] [place] [address] Performed By: #### 2 4321-2, 29086-2 ####[facility] [id number] [place] [address] [place] CBC W Auto Differential pane l (Bld)on 06-05-2023 Basophils (Bld) [#/Vol] 0.03 10*3/uL Normal <0.11 [facility] Comment on above: Order Comment: Speci men Type: BLOOD SPECIMENOrdering Facility: [facility] Address: [address] [place] [address] Performed By: #### 5 7021-8 ####[facility] [id number] [place] [address] [place] Basophils/100 WBC (Bld) 0.2 % Normal [facility] Comment on above: Order Comment: Speci men Type: BLOOD SPECIMENOrdering Facility: [facility] Address: [address] [place] [address] Performed By: #### 5 7021-8 ####[facility] [id number] [place] [address] [place] Differential cell count method Nom (Bld) Auto Normal [facility] Comment on above: Order Comment: Speci men Type: BLOOD SPECIMENOrdering Facility: [facility] Address: [address] [place] [address] Performed By: #### 5 7021-8 ####[facility] [id number] [place] [address] [place] Eosinophils (Bld) [#/Vol] 0.09 10*3/uL Normal <0.46 [facility] Comment on above: Order Comment: Speci men Type: BLOOD SPECIMENOrdering Facility: [facility] Address: [address] [place] [address] Performed By: #### 5 7021-8 ####[facility] [id number] [place] [address] [place] Eosinophils/100 WBC (Bld) 0.7 % Normal [facility] Comment on above: Order Comment: Speci men Type: BLOOD SPECIMENOrdering Facility: [facility] Address: [address] [place] [address] Performed By: #### 5 7021-8 ####[facility] [id number] [place] [address] [place] Erythrocyte distribution width (RBC) [Ratio] 13.1 % Normal 11.5-15.0 [facility] Comment on above: Order Comment: Speci men Type: BLOOD SPECIMENOrdering Facility: [facility] Address: [address] [place] [address] Performed By: #### 5 7021-8 ####[facility] [id number] [place] [address] [place] Hematocrit (Bld) [Volume fraction] 41.1 % Normal 36.0-46.0 [facility] Comment on above: Order Comment: Speci men Type: BLOOD SPECIMENOrdering Facility: [facility] Address: [address] [place] [address] Performed By: #### 5 7021-8 ####[facility]ATORYCLIA [id number] [place] [address] [place] Hemoglobin (Bld) [Mass/Vol] 13.7 g/dL Normal 11.5-15.5 [facility] Comment on above: Order Comment: Speci men Type: BLOOD SPECIMENOrdering Facility: [facility] Address: [address] [place] [address] Performed By: #### 5 7021-8 ####[facility]ORATORYCLIA [id number] [place] [address] [place] Immature granulocytes (Bld) [#/Vol] 0.09 10*3/uL Normal <0.10 [facility] Comment on above: Order Comment: Speci men Type: BLOOD SPECIMENOrdering Facility: [facility] Address: [address] [place] [address] Performed By: #### 5 7021-8 ####[facility] LABORATORYCLIA [id number] [place] [address] [place] Immature granulocytes/100 WBC (Bld) 0.7 % Normal [facility] Comment on above: Order Comment: Speci men Type: BLOOD SPECIMENOrdering Facility: [facility] Address: [address] [place] [address] Performed By: #### 5 7021-8 ####[facility]ATORYCLIA [id number] [place] [address] [place] Lymphocytes (Bld) [#/Vol] 4.03 10*3/uL High 1.00-4.00 [facility] Comment on above: Order Comment: Speci men Type: BLOOD SPECIMENOrdering Facility: [facility] Address: [address] [place] [address] Performed By: #### 5 7021-8 ####[facility]ATORYCLIA [id number] [place] [address] [place] Lymphocytes/100 WBC (Bld) 32.2 % Normal [facility] Comment on above: Order Comment: Speci men Type: BLOOD SPECIMENOrdering Facility: [facility] Address: [address] [place] [address] Performed By: #### 5 7021-8 ####[facility]ATORYCLIA [id number] [place] [address] [place] MCH (RBC) [Entitic mass] 30.9 pg Normal 26.0-34.0 [facility] Comment on above: Order Comment: Speci men Type: BLOOD SPECIMENOrdering Facility: [facility] Address: [address] [place] [address] Performed By: #### 5 7021-8 ####[facility]ATORYCLIA [id number] [place] [address] [place] MCHC (RBC) [Mass/Vol] 33.3 g/dL Normal 30.5-36.0 [facility] Comment on above: Order Comment: Speci men Type: BLOOD SPECIMENOrdering Facility: [facility] Address: [address] [place] [address] Performed By: #### 5 7021-8 ####[facility]ORYCLIA [id number] [place] [address] [place] MCV (RBC) [Entitic vol] 92.8 fL Normal 80.0-100.0 [facility] Comment on above: Order Comment: Speci men Type: BLOOD SPECIMENOrdering Facility: [facility] Address: [address] [place] [address] Performed By: #### 5 7021-8 ####[facility]ORYCLIA [id number] [place] [address] [place] Monocytes (Bld) [#/Vol] 0.77 10*3/uL Normal <0.87 [facility] Comment on above: Order Comment: Speci men Type: BLOOD SPECIMENOrdering Facility: [facility] Address: [address] [place] [address] Performed By: #### 5 7021-8 ####[facility]ORYCLIA [id number] [place] [address] [place] Monocytes/100 WBC (Bld) 6.1 % Normal [facility] Comment on above: Order Comment: Speci men Type: BLOOD SPECIMENOrdering Facility: [facility] Address: [address] [place] [address] Performed By: #### 5 7021-8 ####[facility]ORYCLIA [id number] [place] [address] [place] Neutrophils (Bld) [#/Vol] 7.52 10*3/uL High 1.45-7.50 [facility] Comment on above: Order Comment: Speci men Type: BLOOD SPECIMENOrdering Facility: [facility] Address: [address] [place] [address] Performed By: #### 5 7021-8 ####[facility]ATORYCLIA [id number] [place] [address] [place] Neutrophils/100 WBC (Bld) 60.1 % Normal [facility] Comment on above: Order Comment: Speci men Type: BLOOD SPECIMENOrdering Facility: [facility] Address: [address] [place] [address] Performed By: #### 5 7021-8 ####[facility]ATORYCLIA [id number] [place] [address] [place] Nucleated RBC (Bld) [#/Vol] 10*3/uL Normal <0.01 [facility] Comment on above: Order Comment: Speci men Type: BLOOD SPECIMENOrdering Facility: [facility] Address: [address] [place] [address] Performed By: #### 5 7021-8 ####[facility]ATORYCLIA [id number] [place] [address] [place] Nucleated RBC/100 WBC (Bld) [Ratio] 0.0 /100 WBC Normal [facility] Comment on above: Order Comment: Speci men Type: BLOOD SPECIMENOrdering Facility: [facility] Address: [address] [place] [address] Performed By: #### 5 7021-8 ####[facility]ATORYCLIA [id number] [place] [address] [place] Platelet mean volume (Bld) [Entitic vol] 8.7 fL Low 9.0-12.7 [facility] Comment on above: Order Comment: Speci men Type: BLOOD SPECIMENOrdering Facility: [facility] Address: [address] [place] [address] Performed By: #### 5 7021-8 ####[facility]ATORYCLIA [id number] [place] [address] [place] Platelets (Bld) [#/Vol] 316 10*3/uL Normal 150-400 [facility] Comment on above: Order Comment: Speci men Type: BLOOD SPECIMENOrdering Facility: [facility] Address: [address] [place] [address] Performed By: #### 5 7021-8 ####[facility] LABORATORYCLIA [id number] [place] [address] [place] RBC (Bld) [#/Vol] 4.43 10*6/uL Normal 3.90-5.20 [facility] Comment on above: Order Comment: Speci men Type: BLOOD SPECIMENOrdering Facility: [facility] Address: [address] [place] [address] Performed By: #### 5 7021-8 ####[facility] LABORATORYCLIA [id number] [place] [address] [place] WBC (Bld) [#/Vol] 12.53 10*3/uL High 3.70-11.00 [facility] Comment on above: Order Comment: Speci men Type: BLOOD SPECIMENOrdering Facility: [facility] Address: [place] [address] Performed By: #### 5 7021-8 ####[facility] LABORATORYCLIA [id number] [address] OF [facility] CONSULT PROGon 06-05-2023 CONSULT PROG HNO ID: [id number] Author: Meilnda Mcqueen APRN.[employer] Service: Pulmonary Disease Author Type: Nurse Practitioner Type: Consult Progress Note Filed: 06/05/2023 3:24 PM Note Text: CONSULT PROGRESS NOTES Patient Name: Damari Rios SERVICE DATE: 06/05/2023 Consult Progress Note CONSULTING SERVICE: [facility] Some elements have been copied from consult note dated 06/04/23 The elements have been updated and reflect current decision making from today 06/05/23 ASSESSMENT AND PLAN: Provoked PE (post op) - cont Eliquis - no right heart strain, neg DVT study Asthma exacerbation - possibly contributing to symptoms, prednisone burst Hypoxia - now on 2 L , wean as able PLAN: Continue Eliquis Continue prednisone burst and add a dose of Solumedrol Continue Duoneb Continue Lidocaine patches Wean supplemental oxygen to maintain saturation >92% Add a course of Zithromax for asthma exacerbation/URI Desaturation study in am Will need to follow up with vascular medicine in 3-4 weeks - per notes review Screened for COVID/flu/RSV - negative Will check CXR given increased cough and SOB PERTINENT ROS and INTERVAL HISTORY: Laying in the bed, alert, NAD Still having mid-sternal chest pain, patches are not staying on well States getting very SOB and dizzy with activities, oxygen seems to help - saturating 100% with 2 lpm States developed increased cough, chest congestion, sinuses congestion, rhinorrhea , intermittent wheezing Afebrile, no leucocytosis VITALS: Temp (24hrs), Av.4 ?C (97.5 ?F), Min:36.3 ?C (97.3 ?F), Max:36.5 ?C (97.7 ?F) BP 129/76 Pulse 64 Temp 36.3 ?C (97.3 ?F) (Oral) Resp 20 Ht 162.6 cm (5' 4 ) Wt 73.5 kg (162 lb) LMP 07/24/2016 (Approximate) SpO2 100% BMI 27.81 kg/m? INTAKE AND OUTPUT No intake or output data in the 24 hours ending 06/05/23 1513 Patient Vitals for the past 24 hrs: BP Temp Temp src Pulse Resp SpO2 06/05/23 1117 129/76 36.3 ?C (97.3 ?F) Oral 64 20 100 % 06/05/23 0903 -- -- -- 78 18 -- 06/05/23 0853 -- -- -- 76 18 100 % 06/05/23 0728 120/71 36.4 ?C (97.5 ?F) Oral 62 20 100 % 06/05/23 0403 -- -- -- 81 18 -- 06/04/23 2312 112/62 36.4 ?C (97.5 ?F) Oral 74 17 100 % 06/04/23 2050 138/79 36.5 ?C (97.7 ?F) Oral 94 18 100 % 06/04/23 1642 143/96 36.5 ?C (97.7 ?F) Oral 93 18 98 % 06/04/23 1635 -- -- -- 90 18 97 % PHYSICAL EXAMINATION: General appearance: Well appearing, alert, in no acute distress Skin: Skin color, texture, turgor normal Head: Normocephalic, no masses Oropharynx: Lips, mucosa, and tongue normal Lungs: Lungs with decreased air exchange, very mild end of expiration wheezing Heart: RRR without murmur, gallop, or rubs. Abdomen: Normal abdominal exam Extremities: No deformities, edema, skin discoloration Peripheral pulses: Normal MEDICATIONS Current Facility-Administered Medications Medication Dose Route Frequency iv contrast (radiology procedure) INTRAVENOUS DIRECTED PRN tamsulosin 0.4 mg cap(s) (FLOMAX) 0.4 mg ORAL DAILY albuterol 2.5 mg /3 mL (0.083 %) 2.5 mg (PROVENTIL) 2.5 mg INHALATION q 6 H PRN albuterol HFA 90 mcg/actuation 2 Puff (PROVENTIL HFA, VENTOLIN HFA) 2 Puff OTHER q 6 H PRN acetaminophen 650 mg tab(s) (TYLENOL) 650 mg ORAL q 6 H PRN melatonin 3 mg tab(s) 3 mg ORAL DAILY (8 PM) NaCl 0.9% iv flush bag 20 mL INTRAVENOUS PRN carvedilol 6.25 mg tab(s) (COREG) 6.25 mg ORAL BID w MEALS amLODIPine 5 mg tab(s) (NORVASC) 5 mg ORAL DAILY apixaban 10 mg tab(s) (ELIQUIS) 10 mg ORAL BID Followed by [START ON 06/09/2023] apixaban 5 mg tab(s) (ELIQUIS) 5 mg ORAL BID famotidine 40 mg tab(s) (PEPCID) 40 mg ORAL AT BEDTIME calcium carbonate 1,000 mg chewable tab(s) (TUMS) 1,000 mg ORAL TID PRN predniSONE 40 mg tab(s) (DELTASONE) 40 mg ORAL DAILY lidocaine 4 % 1 Patch (SALONPAS) 1 Patch TRANSDERMAL DAILY And lidocaine patch - REMOVE OTHER AT BEDTIME And lidocaine - VERIFY PATCH OTHER q 8 H oxyCODONE IR 5 mg tab(s) (ROXICODONE) 5 mg ORAL BID PRN azithromycin 500 mg tab(s) (ZITHROMAX) 500 mg ORAL DAILY LABORATORY DATA Recent Labs 06/05/23 0940 WBC 12.53* RBC 4.43 HB 13.7 HCT 41.1 PLT 316 MCV 92.8 MCH 30.9 MCHC 33.3 RDWCV 13.1 MPV 8.7* NEUTP 60.1 ABSNEUT 7.52* LYMPHP 32.2 MONOP 6.1 BASOP 0.2 ABSMONO 0.77 ABSEOSIN 0.09 ABSBASO 0.03 Recent Labs 06/05/23 0940 NA 139 K 3.8 CHLOR 103 CO2 27 CREAT 0.95 BUN 26* GLUC 102* CA 9.7 ABG: Invalid input(s): [id number] Respiratory/Nursing Documentation: O2 Therapy: Nasal Cannula (06/05/23 1117) DATA: Diagnostic tests reviewed for today's visit: Most recent labs and imaging results. Melinda Mcqueen APRN.[employer] Case discussed with a respiratory institute staff physician DATE: June 05, 2023 TIME: 3:13 PM Normal [facility] FLUABV+SARS-CoV-2+RSV Pnl Re sp ANDRY+probeon 06-05-2023 FLUABV+SARS-CoV-2+RSV Pnl Resp ANDRY+probe COVID 19 RESULT: Not detected The method used is RT-PCR or an equivalent NAAT method. Reference Range(the expected result in uninfected individuals): Not detected INFLUENZA A PCR: Not detected INFLUENZA B PCR: Not detected RSV PCR: Not detected Normal [facility] Comment on above: Performed By: #### 9 5941-1 ####[facility] LABORATORYCLIA [id number] [place] [address] [place] Procalcitonin SerPl-mCncon 1 08-06-2022 Procalcitonin [Mass/Vol] ng/mL Normal <0.09 [facility] Comment on above: Order Comment: Speci men Type: BLOOD SPECIMENOrdering Facility: [facility] Address: [address] [place], [place] [address] [address] Result Comment: For a guided interpretation of test results, please visit the Change in Procalcitonin Calculator, [email or web address]. Performed By: #### 2 4321-2, 55415-0 ####[facility] LABORATORYCLIA [id number] [place] [address] [place] XR CHEST 2V FRONTAL/LATon XR CHEST 2V FRONTAL/LAT * * *Final Report* * * DATE OF EXAM: Jun 05 2023 4:09PM HCX 5291 - XR CHEST 2V FRONTAL/LAT / PROCEDURE REASON: Chest Pain * * * * Physician Interpretation * * * * RESULT: EXAMINATION: CHEST RADIOGRAPH (2 VIEW FRONTAL and LATERAL) CLINICAL HISTORY: Chest Pain, Cough, Shortness of breath MQ: [id number]_6 EXAM DATE/TIME: 06/05/2023 4:09 PM COMPARISON: 06/01/2023 RESULT: See impression IMPRESSION: Lines, tubes, and devices: None. Lungs and pleura: Mild left basilar atelectasis, otherwise no focal consolidation. No effusion or pneumothorax. Cardiomediastinal silhouette: Normal cardiomediastinal silhouette. Bones and soft tissues: Unremarkable. Transcribed Using Voice Recognition Transcribe Date/Time: Jun 06 2023 9:00A Dictated by: ARISTEO STEPHENSON MD This examination was interpreted and the report reviewed and electronically signed by: ARISTEO STEPHENSON MD on Jun 06 2023 9:02AM EST [id number] [facility] HEALTH 06-04-2023 ALLIED HEALTH HNO ID: [id number] Author: Alex Maddox RT(R) Service: ? Author Type: Technologist Type: Allied Health Filed: 06/04/2023 8:19 AM Note Text: Radiology Service Progress Note PATIENT NAME: Damari Rios DATE OF SERVICE: June 04, 2023 TIME: 8:18 AM PATIENT IDENTITY VERIFICATION COMPLETED USING TWO (2) IDENTIFIERS: Name and Date of confirmed by patient verbally and Name and Date of confirmed by identification band. FALL SCREENING: Has the patient had 2 falls in the last year or 1 fall with injury or currently using an Ambulatory Assistive Device (Walker, Cane, Wheelchair, Crutches, etc.)? Inpatient: Screened on floor PATIENT GENDER DATA: Female. status: : No status: NO. PATIENT RELEVANT IMPLANT DATA REVIEWED: Not Applicable RADIOLOGY DEPARTMENT: Ultrasound PERIPHERAL IV DATA: Not applicable SIGNED BY: Alex Maddox, RT(R) June 04, 2023 8:18 AM [facility] CONSULT PROGon 06-04-2023 CONSULT PROG HNO ID: [id number] Author: Melinda Mcqueen APRN.BEN Service: Pulmonary Disease Author Type: Nurse Practitioner Type: Consult Progress Note Filed: 06/04/2023 4:28 PM Note Text: CONSULT PROGRESS NOTES Patient Name: Damari Rios SERVICE DATE: 06/04/2023 Consult Progress Note CONSULTING SERVICE: [facility] Some elements have been copied from Dr. Martinez consult note dated 06/03/23 The elements have been updated and reflect current decision making from today 06/04/23 ASSESSMENT AND PLAN: Provoked PE (post op) - cont eliquis, no right heart strain, neg DVT study Asthma - possibly contributing to symptoms, prednisone burst Hypoxia - now on 2 L , wean as able PLAN: Wean supplemental oxygen to maintain saturation >92% Continue Eliquis Add Lidocaine patches for chest pain Will need to follow up with vascular medicine in 3-4 weeks - per notes review PERTINENT ROS and INTERVAL HISTORY: Laying in the bed, alert, NAD States still has mid-sternal chest pain, sharp/stabbing. Has SOB, worse with exertion Saturating sufficiently with 2 lpm VITALS: Temp (24hrs), Av.4 ?C (97.6 ?F), Min:36.3 ?C (97.3 ?F), Max:36.6 ?C (97.9 ?F) BP 115/86 Pulse 76 Temp 36.4 ?C (97.5 ?F) (Oral) Resp 18 Ht 162.6 cm (5' 4 ) Wt 73.5 kg (162 lb) LMP 07/24/2016 (Approximate) SpO2 97% BMI 27.81 kg/m? INTAKE AND OUTPUT Intake/Output Summary (Last 24 hours) at 06/04/2023 1616 Last data filed at 06/04/2023 1447 Gross per 24 hour Intake 400 ml Output 200 ml Net 200 ml Patient Vitals for the past 24 hrs: BP Temp Temp src Pulse Resp SpO2 06/04/23 1157 -- -- -- 76 -- 97 % 06/04/23 1157 115/86 36.4 ?C (97.5 ?F) Oral 71 18 (!) 75 % 06/04/23 1123 -- -- -- 88 18 -- 06/04/23 1101 -- -- -- 88 18 92 % 06/04/23 0743 135/96 36.3 ?C (97.3 ?F) Oral 86 18 92 % 06/04/23 0711 -- -- -- 100 18 -- 06/04/23 0701 -- -- -- 102 18 93 % 06/04/23 0448 -- -- -- 107 22 93 % 06/03/23 1947 -- -- -- 111 20 -- 06/03/23 1935 -- -- -- 99 20 93 % 06/03/23 1914 122/71 36.6 ?C (97.9 ?F) Oral 72 18 97 % PHYSICAL EXAMINATION: General appearance: Well appearing, alert, in no acute distress Skin: Skin color, texture, turgor normal Head: Normocephalic, no masses, lesions, tenderness Oropharynx: Lips, mucosa, and tongue normal Lungs: Lungs clear to auscultation. No wheezing, rhonchi, rales Heart: RRR without murmur, gallop, or rubs. No ectopy Abdomen: Normal abdominal exam Extremities: No deformities, edema, skin discoloration, clubbing Peripheral pulses: Normal MEDICATIONS Current Facility-Administered Medications Medication Dose Route Frequency iv contrast (radiology procedure) INTRAVENOUS DIRECTED PRN tamsulosin 0.4 mg cap(s) (FLOMAX) 0.4 mg ORAL DAILY albuterol 2.5 mg /3 mL (0.083 %) 2.5 mg (PROVENTIL) 2.5 mg INHALATION q 6 H PRN albuterol HFA 90 mcg/actuation 2 Puff (PROVENTIL HFA, VENTOLIN HFA) 2 Puff OTHER q 6 H PRN acetaminophen 650 mg tab(s) (TYLENOL) 650 mg ORAL q 6 H PRN melatonin 3 mg tab(s) 3 mg ORAL DAILY (8 PM) NaCl 0.9% iv flush bag 20 mL INTRAVENOUS PRN oxyCODONE IR 5 mg tab(s) (ROXICODONE) 5 mg ORAL q 8 H PRN carvedilol 6.25 mg tab(s) (COREG) 6.25 mg ORAL BID w MEALS amLODIPine 5 mg tab(s) (NORVASC) 5 mg ORAL DAILY apixaban 10 mg tab(s) (ELIQUIS) 10 mg ORAL BID Followed by [START ON 06/09/2023] apixaban 5 mg tab(s) (ELIQUIS) 5 mg ORAL BID famotidine 40 mg tab(s) (PEPCID) 40 mg ORAL AT BEDTIME calcium carbonate 1,000 mg chewable tab(s) (TUMS) 1,000 mg ORAL TID PRN predniSONE 40 mg tab(s) (DELTASONE) 40 mg ORAL DAILY lidocaine 4 % 1 Patch (SALONPAS) 1 Patch TRANSDERMAL DAILY And lidocaine patch - REMOVE OTHER AT BEDTIME And lidocaine - VERIFY PATCH OTHER q 8 H LABORATORY DATA Recent Labs 06/02/23 0553 WBC 9.25 RBC 4.65 HB 14.1 HCT 42.4 PLT 334 MCV 91.2 MCH 30.3 MCHC 33.3 RDWCV 13.2 MPV 8.8* Recent Labs 06/02/23 0553 06/01/23 1853 PTSEC -- 10.3 INR -- 1.0 APTT 83.7* 28.6 ABG: Invalid input(s): [id number] Respiratory/Nursing Documentation: O2 Therapy: Nasal Cannula (06/04/23 1157) DATA: Diagnostic tests reviewed for today's visit: Most recent labs and imaging results. Melinda Mcqueen APRN.[employer] Case discussed with a respiratory institute staff physician DATE: June 04, 2023 TIME: 4:16 PM [facility] PT EDon 06-04-2023 PT ED HNO ID: [id number] Author: Tommy Diggs RPh Service: Pharmacy Author Type: Pharmacist Type: Patient Education Filed: 06/04/2023 2:39 PM Note Text: PHARMACY ANTICOAGULATION EDUCATION Patient Name: Damari Rios Account #: Data Unavailable Admission Date: 06/01/2023 5:29 PM Date of Contact: June 04, 2023 Time of Contact: 2:39 PM Patient anticipated to be discharged on Apixaban as oral anticoagulation therapy. Anticoagulant history: Patient is new to anticoagulation therapy Indication for oral anticoagulation: pulmonary embolus (PE) Anticoagulant education status: Patient received full anticoagulation education Reason for taking anticoagulation How this anticoagulant works When to take medication and what to do if a dose is missed Drug interactions (Rx, OTC, herbal) and importance of notifying the doctor with any changes Do not take or discontinue any medication or over the counter medication except on the advice of the physician or pharmacist Signs/symptoms of bleeding and what to do if they occur Precautionary measures to decrease trauma/bleeding Signs/symptoms of thrombosis and what to do if they occur Need to limit or avoid alcohol consumption Carrying identification Importance of notifying healthcare provider when hospitalizations occur and when another healthcare provider has asked them to stop/hold anticoagulation medication before any procedure Importance of notifying all healthcare providers they are taking an anticoagulant Use of control measures, if applicable The importance of taking anticoagulation medication as instructed and the potential ramifications of non-compliance were explained to the patient The patient was provided supplemental material which includes the following topics: compliance Issues, follow-up with physician, follow-up monitoring, potential adverse drug reactions, and interactions. Tommy Diggs [facility] US DVT LOWER BILon 3 US DVT LOWER HANNA * * *Final Report* * * DATE OF EXAM: Jun 04 2023 8:17AM [facility] - US DVT LOWER HANNA / PROCEDURE REASON: Pulmonary embolism (PE), eval for therapy * * * * Physician Interpretation * * * * RESULT: EXAMINATION: RIGHT AND LEFT LOWER EXTREMITY DEEP VENOUS ULTRASOUND WITH DOPPLER IMAGING CLINICAL HISTORY: CT positive for pulmonary embolism. Evaluate for DVT. TECHNIQUE: Grayscale with compression maneuvers, color Doppler and spectral Doppler imaging of the right and left proximal deep veins was performed. Grayscale with compression maneuvers of the right and left peroneal and posterior tibial veins was performed. The right and left great and small saphenous veins were evaluated at their insertion to the deep system. Images were obtained and stored in a permanent archive. MQ: [id number]_1 COMPARISON: None RESULT: RIGHT LOWER EXTREMITY PROXIMAL DEEP VEINS Distal External Iliac, Common Femoral and Proximal Profunda Veins: Compression: Normal Doppler: Normal, spontaneous respirophasic flow. Normal response to augmentation. Femoral vein: Compression: Normal Doppler: Normal, spontaneous respirophasic flow. Normal response to augmentation. Popliteal vein: Compression: Normal Doppler: Normal, spontaneous respirophasic flow. Normal response to augmentation. CALF DEEP VEINS Peroneal veins: Normal compression. Posterior tibial veins: Normal compression. Gastrocnemius and Soleal veins: Not imaged. SUPERFICIAL VEINS Great saphenous: Patent and compressible at insertion into common femoral vein; not otherwise assessed. Small Saphenous: Patent and compressible in the proximal calf, not otherwise assessed. LEFT LOWER EXTREMITY PROXIMAL DEEP VEINS Distal External Iliac, Common Femoral and Proximal Profunda Veins: Compression: Normal Doppler: Normal, spontaneous respirophasic flow. Normal response to augmentation. Femoral vein: Compression: Normal Doppler: Normal, spontaneous respirophasic flow. Normal response to augmentation. Popliteal vein: Compression: Normal Doppler: Normal, spontaneous respirophasic flow. Normal response to augmentation. CALF DEEP VEINS Peroneal veins: Normal compression. Posterior tibial veins: Normal compression. Gastrocnemius and Soleal veins: Not imaged. SUPERFICIAL VEINS Great saphenous: Patent and compressible at insertion into common femoral vein; not otherwise assessed. Small Saphenous: Patent and compressible in the proximal calf, not otherwise assessed. IMPRESSION: Negative study for proximal DVT in the left and right lower extremities. Negative study for calf DVT in the left and right lower extremities. Negative study for superficial thrombophlebitis in the imaged segments of the left and right lower extremities. Transcribed Using Voice Recognition Transcribe Date/Time: Jun 04 2023 4:03P Dictated by: MARLA TANNER MD This examination was interpreted and the report reviewed and electronically signed by: MARLA TANNER MD on Jun 04 2023 4:03PM EST [id number] Normal [facility] Urinalysis complete panel (U )on 06-03-2023 Bacteria LM.HPF (Urine sed) [#/Area] Rare Abnormal None Seen [facility] Comment on above: Order Comment: Speci men Type: BLOOD SPECIMEN [facility] Address: [address] [place] [address] Performed By: #### 5 8410-2 #### [facility] CLIA [id number] [address] [place] [address] [place] Bilirubin Ql (U) Negative Normal Negative [facility] Comment on above: Order Comment: Renetta men Type: BLOOD SPECIMEN [facility] Address: [address] [place] [address] Performed By: #### 5 8410-2 #### [facility] CLIA [id number] [address] [place] [address] [place] Clarity (Unsp spec) Clear Normal Clear [facility] Comment on above: Order Comment: Speci men Type: BLOOD SPECIMEN [facility] Address: [address] [place], [place] [address] Performed By: #### 5 8410-2 #### [facility] CLIA [id number] [address] [place] [address] [place] Color (U) Light Yellow Normal Yellow [facility] Comment on above: Order Comment: Speci men Type: BLOOD SPECIMEN Ordering Facility: [facility] Address: [address] [place] [address] Performed By: #### 5 8410-2 #### [facility] CLIA [id number] [address] [place] [address] [place] Epithelial cells LM.HPF (Urine sed) [#/Area] Moderate Normal [facility] Comment on above: Order Comment: Speci men Type: BLOOD SPECIMEN Ordering Facility: [facility] Address: [address] [place] [address] Performed By: #### 5 8410-2 #### [facility] CLIA [id number] [address] [place] [address] [place] Glucose Test strip (U) [Mass/Vol] Negative Normal Trace, Negative [facility] Comment on above: Order Comment: Speci men Type: BLOOD SPECIMEN Ordering Facility: [facility] Address: [address] [place] [address] Performed By: #### 5 8410-2 #### [facility] CLIA [id number] [address] [place] [address] [place] Hemoglobin Ql (U) Negative Normal Negative, Trace [facility] Comment on above: Order Comment: Speci men Type: BLOOD SPECIMEN Ordering Facility: [facility] Address: [address] [place] [address] Performed By: #### 5 8410-2 #### [facility] CLIA [id number] [address] [place] [address] [place] Ketones Ql (U) Negative Normal Negative, Trace [facility] Comment on above: Order Comment: Speci men Type: BLOOD SPECIMEN Ordering Facility: [facility] Address: [address] [place] [address] Performed By: #### 5 8410-2 #### [facility] CLIA [id number] [address] [place] [address] [place] Leukocyte esterase Test strip Ql (U) Negative Normal Negative, 25 Souleymane/uL [facility] Comment on above: Order Comment: Speci men Type: BLOOD SPECIMEN Ordering Facility: [facility] Address: [address] [place] [address] Performed By: #### 5 8410-2 #### [facility] CLIA [id number] [address] [place] [address] [place] Nitrite Ql (U) Negative Normal Negative [facility] Comment on above: Order Comment: Speci men Type: BLOOD SPECIMEN Ordering Facility: [facility] Address: [address] [place] [address] Performed By: #### 5 8410-2 #### [facility] CLIA [id number] [address] [place] [address] [place] pH (U) 6.5 [pH] Normal 5.0-8.0 [facility] Comment on above: Order Comment: Speci men Type: BLOOD SPECIMEN Ordering Facility: [facility] Address: [address] [place] [address] Performed By: #### 5 8410-2 #### [facility] CLIA [id number] [address] [place] [address] [place] Protein (U) [Mass/Vol] Negative Normal Trace , Negative [facility] Comment on above: Order Comment: Speci men Type: BLOOD SPECIMEN Ordering Facility: [facility] Address: [address] [place] [address] Performed By: #### 5 8410-2 #### [facility] CLIA [id number] [address] [place] [address] [place] RBC LM.HPF (Urine sed) [#/Area] 0-3 /HPF Normal 0-3 /HPF [facility] Comment on above: Order Comment: Speci men Type: BLOOD SPECIMEN Ordering Facility: [facility] Address: [address] [place] [address] Performed By: #### 5 8410-2 #### [facility] CLIA [id number] [address] [place] [address] [place] Specific gravity (U) [Rel density] 1.012 Normal 1.005-1.030 [facility] Comment on above: Order Comment: Speci men Type: BLOOD SPECIMEN Ordering Facility: [facility] Address: [address] [place] [address] Performed By: #### 5 8410-2 #### [facility] CLIA [id number] [address] [place] [address] [place] Urobilinogen Ql (U) Negative Normal Negative [facility] Comment on above: Order Comment: Speci men Type: BLOOD SPECIMEN Ordering Facility: [facility] Address: [address] [place] [address] Performed By: #### 5 8410-2 #### [facility] CLIA [id number] [address] [place] [address] [place] WBC LM.HPF (Urine sed) [#/Area] 0-5 /HPF Normal 0-5 /HPF [facility] Comment on above: Order Comment: Speci men Type: BLOOD SPECIMEN Ordering Facility: [facility] Address: [address] [place] [address] Performed By: #### 5 8410-2 #### [facility] CLIA [id number] [address] [place] [address] [place] CBC panel Auto (Bld)on 06-02 Erythrocyte distribution width (RBC) [Ratio] 13.2 % Normal 11.5-15.0 [facility] Comment on above: Order Comment: Speci men Type: BLOOD SPECIMEN Ordering Facility: [facility] Address: [address] [place] [address] Performed By: #### [facility] #### [facility] CLIA [id number] [address] [place] [address] [place] Hematocrit (Bld) [Volume fraction] 42.4 % Normal 36.0-46.0 [facility] Comment on above: Order Comment: Speci men Type: BLOOD SPECIMEN Ordering Facility: [facility] Address: [address] [place] [address] Performed By: #### P TTAC #### [facility] CLIA [id number] [address] [place] [address] [place] Hemoglobin (Bld) [Mass/Vol] 14.1 g/dL Normal 11.5-15.5 [facility] Comment on above: Order Comment: Speci men Type: BLOOD SPECIMEN Ordering Facility: [facility] Address: [address] [place] [address] Performed By: #### P TTAC #### [facility] IA [id number] [address] [place] [address] [place] MCH (RBC) [Entitic mass] 30.3 pg Normal 26.0-34.0 [facility] Comment on above: Order Comment: Speci men Type: BLOOD SPECIMEN Ordering Facility: [facility] Address: [address] [place] [address] Performed By: #### P TTAC #### [facility] IA [id number] [address] [place] [address] [place] MCHC (RBC) [Mass/Vol] 33.3 g/dL Normal 30.5-36.0 [facility] Comment on above: Order Comment: Speci men Type: BLOOD SPECIMEN Ordering Facility: [facility] Address: [address] [place] [address] Performed By: #### P TTAC #### [facility] IA [id number] [address] [place] [address] [place] MCV (RBC) [Entitic vol] 91.2 fL Normal 80.0-100.0 [facility] Comment on above: Order Comment: Speci men Type: BLOOD SPECIMEN Ordering Facility: [facility] Address: [address] [place] [address] Performed By: #### P TTAC #### [facility] CLIA [id number] [address] [place] [address] [place] Nucleated RBC (Bld) [#/Vol] 10*3/uL Normal <0.01 [facility] Comment on above: Order Comment: Speci men Type: BLOOD SPECIMEN Ordering Facility: [facility] Address: [address] [place] [address] Performed By: #### P TTAC #### [facility] CLIA [id number] [address] [place] [address] [place] Platelet mean volume (Bld) [Entitic vol] 8.8 fL Low 9.0-12.7 [facility] Comment on above: Order Comment: Speci men Type: BLOOD SPECIMEN Ordering Facility: [facility] Address: [address] [place] [address] Performed By: #### P TTAC #### [facility] CLIA [id number] [address] [place] [address] [place] Platelets (Bld) [#/Vol] 334 10*3/uL Normal 150-400 [facility] Comment on above: Order Comment: Speci men Type: BLOOD SPECIMEN Ordering Facility: [facility] Address: [address] [place] [address] Performed By: #### P TTAC #### [facility] CLIA [id number] [address] [place] [address] [place] RBC (Bld) [#/Vol] 4.65 10*6/uL Normal 3.90-5.20 [facility] Comment on above: Order Comment: Speci men Type: BLOOD SPECIMEN Ordering Facility: [facility] Address: [address] [place] [address] Performed By: #### P TTAC #### [facility] CLIA [id number] [address] [place] [address] [place] WBC (Bld) [#/Vol] 9.25 10*3/uL Normal 3.70-11.00 [facility] Comment on above: Order Comment: Speci men Type: BLOOD SPECIMEN Ordering Facility: [facility] Address: [address], [place] [address] Performed By: #### [facility] #### [facility] CLIA [id number] [address] [place] [address] [place] CONSULTon 06-02-2023 CONSULT HNO ID: [id number] Author: Adriana Martinez MD Service: Pulmonary Disease Author Type: Physician Type: Consults Filed: 06/02/2023 3:57 PM Note Text: pulmonary INITIAL CONSULT NOTE SERVICE DATE: 06/02/2023 REASON FOR CONSULT: pulmonary embolism REQUESTING PHYSICIAN: dr zainab croft PRIMARY CARE PHYSICIAN: Kimberly Murguia MD Subjective Ms. Rios is a 47 year old female who presents for PE. Hx of asthma, bipolar disorder, just had a right salpingooophorectomy and urethral sling placed on may 28. Here for sob, chest pain, abdominal pain.ct chest with PE in the lingula and LLL, minimal bibasilar atelectasis. Seen by vascular medicine and eliquis started for a provoked PE. Feeling better but still with some chest pain. FUNCTIONAL STATUS: Independent PAST MEDICAL HISTORY Diagnosis Date Bipolar I disorder, most recent episode (or current) unspecified Calculus of bile duct without mention of cholecystitis, with obstruction Irritable bowel syndrome Kidney stone Known health problems: none 04/04/2021 Other and unspecified ovarian cyst Other cholecystitis Seasonal allergies Temporomandibular joint disorders, unspecified Unspecified asthma(493.90) PAST SURGICAL HISTORY Procedure Laterality Date COLONOSCOP W/ OR W/O BRSH SPEC 04/03/12 pt discomfort, normal to transverse colon - ordered BE EGD W/O BRSH SPECIMEN W/BX 04/03/12 mild gastritis HYSTERECTOMY HX 2017 LAPAROSCOPIC CHOLEYCYSTECTOMY 1999 Cholecystectomy, lap LIGATE FALLOPIAN TUBE 1998 NONE 04/04/2021 PAST SURGICAL HISTORY OF 2016 ureteral stent placed REMOVAL ADENOIDS,PRIMARY,<12 Y/O 2000 Adenoidectomy REMOVAL OF TONSILS,<12 Y/O 2000 Tonsillectomy FAMILY HISTORY Problem Relation Age of Onset Hypertension Mother Breast Cancer Paternal Grandmother lung GI Paternal Grandfather Diabetes Maternal Grandmother from lung ca Diabetes Maternal Grandfather from unk cause Colon Cancer Maternal Uncle age 43 other (POTS) Sister other (Lupus) Other niece other (lupus) Other Anesthesia Problems No Family History Colon Polyps No Family History Social History Tobacco Use Smoking status: Never Smokeless tobacco: Never Vaping Use Vaping Use: Never used Substance Use Topics Alcohol use: Yes Comment: very rare- maybe 2x/ year Drug use: No pantoprazole DR (PROTONIX) 40 mg tablet, Take 40 mg by mouth once daily., Disp: , Rfl: , 06/01/2023 carvedilol (COREG) 6.25 mg tablet, Take 6.25 mg by mouth two times a day with meals., Disp: , Rfl: , 06/01/2023 famotidine (PEPCID) 40 mg tablet, Take 40 mg by mouth daily at bedtime., Disp: , Rfl: , 06/01/2023 Nebulizers, Lifetime supplies, Disp: 1 Each, Rfl: 0, 06/01/2023 ondansetron (ZOFRAN) 4 mg tablet, Take 1 tablet by mouth every 8 hours as needed., Disp: 10 tablet, Rfl: 0, Unknown tamsulosin ER (FLOMAX) 0.4 mg cap, Take 1 capsule by mouth once daily. 30 minutes after the same meal each day., Disp: 30 capsule, Rfl: 0, 06/01/2023 albuterol (PROVENTIL) 2.5 mg /3 mL (0.083 %) nebulizer solution, Use 3 mL via nebulizer every 6 hours as needed for Wheezing/Shortness of Breath. Inhale over 5-15 minutes, Disp: 100 Vial, Rfl: 5, 06/01/2023 albuterol HFA (PROAIR HFA) 90 mcg/actuation inhaler, 2 Puffs every 6 hours as needed for Wheezing/Shortness of Breath. Take as directed, Disp: 3 Inhaler, Rfl: 0, 06/01/2023 Nebulizer and Compressor For Neb, Dispense one nebulizer with lifetime supplies, Disp: 1 Each, Rfl: 0 predniSONE (DELTASONE) 10 mg tablet, 4 tabs for 4 days, 3 tabs for 3 days, 2 tabs for 2 days, 1 tab for 2 days (Patient not taking: Reported on 04/04/2021 ), Disp: 31 tablet, Rfl: 0 EPINEPHrine (EPIPEN) 0.3 mg/0.3 mL auto-injector, Use as directed for bee sting, Disp: 2 Each, Rfl: 1, Unknown loratadine (CLARITIN) 10 mg tablet, Take 1 tablet by mouth once daily. (Patient not taking: Reported on 06/19/2019 ), Disp: 30 tablet, Rfl: 5 Current Facility-Administered Medications Medication Dose Route Frequency iv contrast (radiology procedure) INTRAVENOUS DIRECTED PRN tamsulosin 0.4 mg cap(s) (FLOMAX) 0.4 mg ORAL DAILY albuterol 2.5 mg /3 mL (0.083 %) 2.5 mg (PROVENTIL) 2.5 mg INHALATION q 6 H PRN albuterol HFA 90 mcg/actuation 2 Puff (PROVENTIL HFA, VENTOLIN HFA) 2 Puff OTHER q 6 H PRN acetaminophen 650 mg tab(s) (TYLENOL) 650 mg ORAL q 6 H PRN melatonin 3 mg tab(s) 3 mg ORAL DAILY (8 PM) NaCl 0.9% iv flush bag 20 mL INTRAVENOUS PRN oxyCODONE IR 5 mg tab(s) (ROXICODONE) 5 mg ORAL q 8 H PRN carvedilol 6.25 mg tab(s) (COREG) 6.25 mg ORAL BID w MEALS amLODIPine 5 mg tab(s) (NORVASC) 5 mg ORAL DAILY apixaban 10 mg tab(s) (ELIQUIS) 10 mg ORAL BID Followed by [START ON 06/09/2023] apixaban 5 mg tab(s) (ELIQUIS) 5 mg ORAL BID Allergies As of Date: 06/01/2023 Allergen Noted Reaction PENICILLINS 03/13/2005 Anaphylaxis BACTRIM [SULFAMETHOXAZOLE-TRIM ETH*03/13/2005 CODEINE 03/13/2005 Rash ULTRAM [TRAMADOL HCL] (more content not included)... [facility] CONSULT HNO ID: [id number] Author: Roby Harrison MD Service: Vascular Medicine Author Type: Physician Type: Consults Filed: 06/02/2023 9:51 AM Note Text: CONSULT NOTE: VASCULAR MEDICINE SERVICE PATIENT NAME: Damari Rios SERVICE DATE: 06/02/2023 SERVICE TIME: 9:46 AM Reason for consult: PE HPI: Ms. Rios is a 47-year-old woman with right salpingo-oophorectomy and urethral sling placed on Sunday who presents with shortness of breath and chest pain. She states that the chest pain is sharp and worse with deep breaths. She denies any lightheadedness or syncope. She had a CT chest that showed multiple segmental left-sided PE with no evidence of right heart strain. High-sensitivity troponin was negative and she remains in normal sinus rhythm. This morning, she states that she began feeling right leg cramping shortly after her surgery. She states that she developed chest discomfort and shortness of breath the following day which progressively got worse and led her to come into the hospital. She has never had DVT or PE in the past. Provoking factors Trauma: No Hospitalization or surgery: Yes COVID 19 infection: No Relevant illness: No Malignancy: No known Travel: No no Prolonged immobility: Hormonal therapy/OTC supplements: No FH: She states that her father had a DVT. She does not know the circumstances regarding that. SH: She denies ever smoking cigarettes. She does not drink alcohol. She does not use marijuana or illicit drugs. Assessment: Ms. Rios is a 47-year-old woman with right salpingo-oophorectomy and urethral sling placed on Sunday who presents with shortness of breath and chest pain and found to have acute PE. This will be considered a provoked event in the setting of her recent surgery. She has been maintained on therapeutic heparin infusion since presenting to the emergency department yesterday. Plan: -Okay to transition from heparin infusion to Eliquis 10 mg twice daily x 7 days followed by 5 mg twice daily. -Will obtain duplex lower extremity ultrasound. -Given negative cardiac biomarkers and no evidence of right heart strain on CT chest, no indication to obtain echocardiogram at this time. -No indication for hypercoagulable workup in the setting of this provoked event. -DVT ultrasound of the lower extremities have been ordered, will follow-up results. -Recommend follow-up in my vascular medicine clinic in 3 to 4 weeks. -OK for discharge from perspective. Counseling: Discussed test results. Discussed plans. Thank you for this consult. MEDICATIONS: Current Facility-Administered Medications Medication Dose Route Frequency iv contrast (radiology procedure) INTRAVENOUS DIRECTED PRN tamsulosin 0.4 mg cap(s) (FLOMAX) 0.4 mg ORAL DAILY albuterol 2.5 mg /3 mL (0.083 %) 2.5 mg (PROVENTIL) 2.5 mg INHALATION q 6 H PRN albuterol HFA 90 mcg/actuation 2 Puff (PROVENTIL HFA, VENTOLIN HFA) 2 Puff OTHER q 6 H PRN acetaminophen 650 mg tab(s) (TYLENOL) 650 mg ORAL q 6 H PRN melatonin 3 mg tab(s) 3 mg ORAL DAILY (8 PM) NaCl 0.9% iv flush bag 20 mL INTRAVENOUS PRN oxyCODONE IR 5 mg tab(s) (ROXICODONE) 5 mg ORAL q 8 H PRN carvedilol 6.25 mg tab(s) (COREG) 6.25 mg ORAL BID w MEALS amLODIPine 5 mg tab(s) (NORVASC) 5 mg ORAL DAILY apixaban 10 mg tab(s) (ELIQUIS) 10 mg ORAL BID Followed by [START ON 06/09/2023] apixaban 5 mg tab(s) (ELIQUIS) 5 mg ORAL BID Body mass index is 27.81 kg/m?. Last 4 Encounter Wt Readings: Date: Wt: 06/01/2023 73.5 kg (162 lb) 04/04/2021 91.4 kg (201 lb 9.6 oz) 08/19/2019 79.4 kg (175 lb) 07/24/2019 89.8 kg (198 lb) O2 Therapy: Room Air No data recorded Patient Vitals for the past 24 hrs: BP Temp Temp src Pulse Resp SpO2 Height Weight 06/02/23 0745 161/93 36.3 ?C (97.3 ?F) Oral 64 19 91 % -- -- 06/02/23 0426 155/101 -- Oral 65 18 100 % -- -- 06/01/23 2324 158/88 -- -- 80 17 97 % -- -- 06/01/23 2258 182/100 36.6 ?C (97.9 ?F) Oral 71 16 98 % -- -- 06/01/23 2230 164/94 -- -- 86 16 98 % -- -- 06/01/23 2100 160/92 -- -- 85 16 98 % -- -- 06/01/23 1930 195/101 -- -- 84 16 100 % -- -- 06/01/23 1855 (!) 213/95 -- -- 73 18 96 % -- -- 06/01/23 1735 (!) 206/105 36.9 ?C (98.4 ?F) Oral 66 18 96 % -- -- 06/01/23 1530 (!) 205/106 36.4 ?C (97.5 ?F) -- 74 18 (!) 94 % 162.6 cm (5' 4 ) 73.5 kg (162 lb) PHYSICAL EXAM: Alert, conversant and comfortable. No acute distress. Mood appropriate. JVD: Not present at 90 degrees. Lungs: Clear to ausculation bilaterally. Cardiac: No gallop, click or rub. Abdomen: Normoactive bowel sounds, Nontender, non-distended. Vascular: No carotid bruits. Palpable pedal pulses Lower Extremity Edema: None DATA: Diagnostic tests reviewed for today's visit: Reviewed Labs: Yes. Reviewed Imaging: Yes Reviewed VS: Yes. Reviewed Meds: Yes. LDL Chol, Lianne (mg/dL) Date Value 02/15/2012 108 AST (U/L) Date Value 06/01/2023 15 05/24/2021 58 N (more content not included)... Normal [facility] HISTORY PHYSICALon 3 HISTORY PHYSICAL HNO ID: [id number] Author: Zainab Croft V, MD Service: Hospital Medicine Author Type: Physician Type: HANDP Filed: 06/02/2023 2:46 PM Note Text: HISTORY AND PHYSICAL EXAMINATION PATIENT NAME: Damari Rios SERVICE DATE: 06/02/2023 SERVICE TIME: 2:42 PM PRIMARY CARE PHYSICIAN: Kimberly Murguia MD SUBJECTIVE CHIEF COMPLAINT: Pulm embolism HPI: This is a 47 year old female who presents with with family history of multiple family members having blood clots etc., recent right salpingo-oophorectomy and urethral sling at outside hospital comes in for pleuritic pain and found to have pulm embolism Of note that she has been having symptoms of not feeling well for several weeks leading up to that and has had other hospital admissions. In any event currently seen by cardiology/vascular medicine, with the transitioning from heparin to Eliquis. Ultrasound lower extremity ordered This was thought to be provoked. Awake alert comfortable. PAST MEDICAL HISTORY: PAST MEDICAL HISTORY Diagnosis Date Bipolar I disorder, most recent episode (or current) unspecified Calculus of bile duct without mention of cholecystitis, with obstruction Irritable bowel syndrome Kidney stone Known health problems: none 04/04/2021 Other and unspecified ovarian cyst Other cholecystitis Seasonal allergies Temporomandibular joint disorders, unspecified Unspecified asthma(493.90) PAST SURGICAL HISTORY: PAST SURGICAL HISTORY Procedure Laterality Date COLONOSCOP W/ OR W/O BRSH SPEC 04/03/12 pt discomfort, normal to transverse colon - ordered BE EGD W/O BRSH SPECIMEN W/BX 04/03/12 mild gastritis HYSTERECTOMY HX 2017 LAPAROSCOPIC CHOLEYCYSTECTOMY 2000 Cholecystectomy, lap LIGATE FALLOPIAN TUBE 1998 NONE 04/04/2021 PAST SURGICAL HISTORY OF 2016 ureteral stent placed REMOVAL ADENOIDS,PRIMARY,<12 Y/O 2000 Adenoidectomy REMOVAL OF TONSILS,<12 Y/O 2000 Tonsillectomy FAMILY HISTORY: FAMILY HISTORY Problem Relation Age of Onset Hypertension Mother Breast Cancer Paternal Grandmother lung GI Paternal Grandfather Diabetes Maternal Grandmother from lung ca Diabetes Maternal Grandfather from unk cause Colon Cancer Maternal Uncle age 43 other (POTS) Sister other (Lupus) Other niece other (lupus) Other Anesthesia Problems No Family History Colon Polyps No Family History SOCIAL HISTORY: Social History Tobacco Use Smoking status: Never Smokeless tobacco: Never Vaping Use Vaping Use: Never used Substance Use Topics Alcohol use: Yes Comment: very rare- maybe 2x/ year Drug use: No MEDICATIONS: Prior to Admission Medications pantoprazole DR (PROTONIX) 40 mg tablet, Take 40 mg by mouth once daily., Disp: , Rfl: , 06/01/2023 carvedilol (COREG) 6.25 mg tablet, Take 6.25 mg by mouth two times a day with meals., Disp: , Rfl: , 06/01/2023 famotidine (PEPCID) 40 mg tablet, Take 40 mg by mouth daily at bedtime., Disp: , Rfl: , 06/01/2023 Nebulizers, Lifetime supplies, Disp: 1 Each, Rfl: 0, 06/01/2023 ondansetron (ZOFRAN) 4 mg tablet, Take 1 tablet by mouth every 8 hours as needed., Disp: 10 tablet, Rfl: 0, Unknown tamsulosin ER (FLOMAX) 0.4 mg cap, Take 1 capsule by mouth once daily. 30 minutes after the same meal each day., Disp: 30 capsule, Rfl: 0, 06/01/2023 albuterol (PROVENTIL) 2.5 mg /3 mL (0.083 %) nebulizer solution, Use 3 mL via nebulizer every 6 hours as needed for Wheezing/Shortness of Breath. Inhale over 5-15 minutes, Disp: 100 Vial, Rfl: 5, 06/01/2023 albuterol HFA (PROAIR HFA) 90 mcg/actuation inhaler, 2 Puffs every 6 hours as needed for Wheezing/Shortness of Breath. Take as directed, Disp: 3 Inhaler, Rfl: 0, 06/01/2023 Nebulizer and Compressor For Neb, Dispense one nebulizer with lifetime supplies, Disp: 1 Each, Rfl: 0 predniSONE (DELTASONE) 10 mg tablet, 4 tabs for 4 days, 3 tabs for 3 days, 2 tabs for 2 days, 1 tab for 2 days (Patient not taking: Reported on 04/04/2021 ), Disp: 31 tablet, Rfl: 0 EPINEPHrine (EPIPEN) 0.3 mg/0.3 mL auto-injector, Use as directed for bee sting, Disp: 2 Each, Rfl: 1, Unknown loratadine (CLARITIN) 10 mg tablet, Take 1 tablet by mouth once daily. (Patient not taking: Reported on 06/19/2019 ), Disp: 30 tablet, Rfl: 5 CURRENT ALLERGIES: ALLERGIES Allergen Reactions Penicillins Anaphylaxis Bactrim [Sulfametho* Codeine Rash Ultram [Tramadol Hc* Intolerance COMPLETE REVIEW OF SYSTEMS: PAIN ASSESSMENT: Negative for pain, history of chronic pain, or current treatment for a chronic pain condition. GENERAL: No weight loss, malaise or fevers HEENT: Negative for frequent or significant headaches, No changes in hearing or vision, no nose bleeds or other nasal problems NECK: Negative for lumps, goiter, pain and significant neck swelling RESPIRATORY: Negative for cough, hemoptysis, wheezing or shortness of breath CARDIOVASCULAR: Positive for chest pain, shortness of breath GI: (more content not included)... Normal [facility] HISTORY PHYSICAL HNO ID: [id number] Author: Maggi Harrison APRN.BEN Service: General Internal Medicine Author Type: Nurse Practitioner Type: HANDP Filed: 06/02/2023 6:46 AM Note Text: Summary: admission History and Physical Examination SERVICE DATE: 06/02/2023 SERVICE TIME: 6:40 AM PRIMARY CARE PHYSICIAN: Kimberly Murguia MD Subjective CHIEF COMPLAINT: sob HPI: This is a 47 year old female who presents with sob and found to have a PE. Heparin IV started, home meds reviewed and continued. The PE is in lingula and left Lower lobe of lung space. EKG NSR, Chest xray was wnl. She does have a trace of pleural effusion. CMP and H+H wnl. Pleasant and cooperative. VS stable, no fever FUNCTIONAL STATUS: Independent PAST MEDICAL HISTORY Diagnosis Date Bipolar I disorder, most recent episode (or current) unspecified Calculus of bile duct without mention of cholecystitis, with obstruction Irritable bowel syndrome Kidney stone Known health problems: none 04/04/2021 Other and unspecified ovarian cyst Other cholecystitis Seasonal allergies Temporomandibular joint disorders, unspecified Unspecified asthma(493.90) PAST SURGICAL HISTORY Procedure Laterality Date COLONOSCOP W/ OR W/O BRSH SPEC 04/03/12 pt discomfort, normal to transverse colon - ordered BE EGD W/O BRSH SPECIMEN W/BX 04/03/12 mild gastritis HYSTERECTOMY HX 2017 LAPAROSCOPIC CHOLEYCYSTECTOMY 2000 Cholecystectomy, lap LIGATE FALLOPIAN TUBE 1998 NONE 04/04/2021 PAST SURGICAL HISTORY OF 2016 ureteral stent placed REMOVAL ADENOIDS,PRIMARY,<12 Y/O 2000 Adenoidectomy REMOVAL OF TONSILS,<12 Y/O 2000 Tonsillectomy FAMILY HISTORY Problem Relation Age of Onset Hypertension Mother Breast Cancer Paternal Grandmother lung GI Paternal Grandfather Diabetes Maternal Grandmother from lung ca Diabetes Maternal Grandfather from unk cause Colon Cancer Maternal Uncle age 43 other (POTS) Sister other (Lupus) Other niece other (lupus) Other Anesthesia Problems No Family History Colon Polyps No Family History Social History Tobacco Use Smoking status: Never Smokeless tobacco: Never Vaping Use Vaping Use: Never used Substance Use Topics Alcohol use: Yes Comment: very rare- maybe 2x/ year Drug use: No Nebulizers, Lifetime supplies, Disp: 1 Each, Rfl: 0, 06/01/2023 ondansetron (ZOFRAN) 4 mg tablet, Take 1 tablet by mouth every 8 hours as needed., Disp: 10 tablet, Rfl: 0, Unknown tamsulosin ER (FLOMAX) 0.4 mg cap, Take 1 capsule by mouth once daily. 30 minutes after the same meal each day., Disp: 30 capsule, Rfl: 0, 06/01/2023 albuterol (PROVENTIL) 2.5 mg /3 mL (0.083 %) nebulizer solution, Use 3 mL via nebulizer every 6 hours as needed for Wheezing/Shortness of Breath. Inhale over 5-15 minutes, Disp: 100 Vial, Rfl: 5, 06/01/2023 albuterol HFA (PROAIR HFA) 90 mcg/actuation inhaler, 2 Puffs every 6 hours as needed for Wheezing/Shortness of Breath. Take as directed, Disp: 3 Inhaler, Rfl: 0, 06/01/2023 Nebulizer and Compressor For Neb, Dispense one nebulizer with lifetime supplies, Disp: 1 Each, Rfl: 0 predniSONE (DELTASONE) 10 mg tablet, 4 tabs for 4 days, 3 tabs for 3 days, 2 tabs for 2 days, 1 tab for 2 days (Patient not taking: Reported on 04/04/2021 ), Disp: 31 tablet, Rfl: 0 EPINEPHrine (EPIPEN) 0.3 mg/0.3 mL auto-injector, Use as directed for bee sting, Disp: 2 Each, Rfl: 1, Unknown loratadine (CLARITIN) 10 mg tablet, Take 1 tablet by mouth once daily. (Patient not taking: Reported on 06/19/2019 ), Disp: 30 tablet, Rfl: 5 ALLERGIES Allergen Reactions Penicillins Anaphylaxis Bactrim [Sulfametho* Codeine Rash Ultram [Tramadol Hc* Intolerance COMPLETE REVIEW OF SYSTEMS: GENERAL: No weight loss, malaise or fevers HEENT: Negative for frequent or significant headaches, No changes in hearing or vision, no nose bleeds or other nasal problems NECK: Negative for lumps, goiter, pain and significant neck swelling, trachea midline RESPIRATORY: mild shortness of breath CARDIOVASCULAR: Negative for chest pain and palpitations GI: No nausea, vomiting, or diarrhea : No history of dysuria, frequency or incontinence MUSCULOSKELETAL: Negative for joint pain or swelling, back pain or muscle pain SKIN: Negative for lesions, rash, and itching PSYCH: Negative for sleep disturbance, mood disorder and recent psychosocial stressors NEURO: No history of headaches, syncope, paralysis, seizures or tremors Objective PHYSICAL EXAM: Physical Exam Performed: GENERAL: Alert, no distress, cooperative SKIN: Skin color, texture, turgor normal. No rashes or lesions. HEAD/SINUSES: No significant findings EYES: PERRLA, EOMI EARS: External ears normal, canals clear NOSE: Nares normal. Septum midline. OROPHARYNX: Neg (more content not included)... Normal [facility] NURSING PROGon 06-02-2023 NURSING PROG HNO ID: [id number] Author: Zuri Rascon RN Service: ? Author Type: Registered Nurse Type: Nursing Progress Note Filed: 06/01/2023 11:34 PM Note Text: Patient up to floor with belongings. AxOx3. Reports 4/10 abdominal pain and weakness. PRN Medication given and repositioned for comfort. Patient able to ambulate to bathroom with help. Educated patient on using call light and asking for assistance when ambulating to bathroom. Patient voiced understanding. Non skid footwear on, bed locked and in lowest position and call light in reach. Bed alarm on and functioning. [facility] PTT, ANTICOAGULANT THERAPYon 06-02-2023 aPTT Coag (PPP) [Time] 83.7 s High 23.0-32.4 [facility] Comment on above: Order Comment: Speci men Type: BLOOD SPECIMENOrdering Facility: [facility] Address: [place] [address] Performed By: #### P TTA ####[facility] [id number] [place] [id number] [place] [facility] HNO ID: [id number] Author: Selvin Duvall RT(Manuel) Service: Radiology Author Type: Technologist Type: Allied Health Filed: 06/01/2023 7:56 PM Note Text: Radiology Service Progress Note PATIENT NAME: Damari Rios DATE OF SERVICE: June 01, 2023 TIME: 7:56 PM PATIENT IDENTITY VERIFICATION COMPLETED USING TWO (2) IDENTIFIERS: Name and Date of confirmed by patient verbally and Name and Date of confirmed by identification band. FALL SCREENING: Has the patient had 2 falls in the last year or 1 fall with injury or currently using an Ambulatory Assistive Device (Walker, Cane, Wheelchair, Crutches, etc.)? Emergency Room Patient: Screened in ED PATIENT GENDER DATA: Female. status: : No status: NO. PATIENT RELEVANT IMPLANT DATA REVIEWED: Not Applicable RADIOLOGY DEPARTMENT: CT; Exam(s) Completed: Abdomen/Pelvis PERIPHERAL IV DATA: Not applicable SIGNED BY: RT Mauricio(Manuel) June 01, 2023 7:56 PM [facility] HNO ID: [id number] Author: Selvin Duvall RT(Manuel) Service: Radiology Author Type: Technologist Type: Allied Health Filed: 06/01/2023 5:46 PM Note Text: Radiology Service Progress Note DATE OF SERVICE: June 01, 2023 TIME: 5:45 PM PATIENT IDENTITY VERIFICATION COMPLETED USING TWO (2) STANDARD IDENTIFIERS: Name and Date of confirmed by patient verbally and Name and Date of confirmed by identification band. FALL SCREENING: Has the patient had 2 falls in the last year or 1 fall with injury or currently using an Ambulatory Assistive Device (Walker, Cane, Wheelchair, Crutches, etc.)? Emergency Room Patient: Screened in ED PATIENT GENDER DATA: Female. status: : No status: NO. PATIENT RELEVANT IMPLANT DATA REVIEWED: Not Applicable ALLERGIES: Reviewed and unchanged CONTRAST ALLERGY: NO. EXAM: CT -CONTRAST INDUCED NEPHROPATHY RISK FACTORS: Not applicable CREATININE: Creatinine Date Value Ref Range Status 06/01/2023 1.08 (H) 0.58 - 0.96 mg/dL Final 08/06/2019 1.11 (H) 0.58 - 0.96 mg/dL Final 08/05/2019 1.05 (H) 0.58 - 0.96 mg/dL Final Estimated Glomerular Filtration Rate Date Value Ref Range Status 06/01/2023 64 >=60 mL/min/1.73m? Final Comment: Estimated Glomerular Filtration Rate (eGFR) is calculated using the 2020 CKD-EPI creatinine equation. This equation utilizes serum creatinine, sex, and age as parameters. The creatinine assay has traceable calibration to isotope dilution-mass spectrometry. Refer to KDIGO guidelines for clinical interpretation. In patients with unstable renal function, e.g. those with acute kidney injury, the eGFR may not accurately reflect actual GFR. eGFR- Date Value Ref Range Status 06/19/2019 >60 Final P.O.C.T. RESULTS: POC done: Yes, See Lab Tab June 01, 2023 TREATMENT: N/A PERIPHERAL IV DATA: Inpatient - refer to LDA documentation RADIOLOGY DEPARTMENT: CT; Exam(s) Completed: PE Study SIGNATURE: RT Mauricio(Manuel) PATIENT NAME: Damari Rios DATE: June 01, 2023 TIME: 5:45 PM [facility] HNO ID: [id number] Author: Lelia Birmingham RT(Manuel) Service: Radiology Author Type: Technologist Type: Allied Health Filed: 06/01/2023 4:17 PM Note Text: Radiology Service Progress Note PATIENT NAME: Damari Rios DATE OF SERVICE: June 01, 2023 TIME: 4:17 PM PATIENT IDENTITY VERIFICATION COMPLETED USING TWO (2) IDENTIFIERS: Name and Date of confirmed by patient verbally. FALL SCREENING: Has the patient had 2 falls in the last year or 1 fall with injury or currently using an Ambulatory Assistive Device (Walker, Cane, Wheelchair, Crutches, etc.)? Emergency Room Patient: Screened in ED PATIENT GENDER DATA: Female. status: : No status: NO. PATIENT RELEVANT IMPLANT DATA REVIEWED: Not Applicable RADIOLOGY DEPARTMENT: General X-ray: Exam(s) Completed: Chest X-Ray PERIPHERAL IV DATA: Not applicable SIGNED BY: RT Agustín(R) June 01, 2023 4:17 PM Normal [facility] CBC panel Auto (Bld)on 06-01 Erythrocyte distribution width (RBC) [Ratio] 13.1 % Normal 11.5-15.0 [facility] Comment on above: Order Comment: Speci abhinav Type: BLOOD SPECIMEN [facility] Address: [address] [place] [address] Performed By: #### 5 8410-2 #### [facility] CLIA [id number] [address] [place] [address] [place] Hematocrit (Bld) [Volume fraction] 40.2 % Normal 36.0-46.0 [facility] Comment on above: Order Comment: Renetta la Type: BLOOD SPECIMEN [facility]: [facility] Address: [address] [place] [address] Performed By: #### 5 8410-2 #### [facility] CLIA [id number] [address] [place] [address] [place] Hemoglobin (Bld) [Mass/Vol] 13.8 g/dL Normal 11.5-15.5 [facility] Comment on above: Order Comment: Renetta la Type: BLOOD SPECIMEN [facility]: [facility] Address: [address] [place] [address] Performed By: #### 5 8410-2 #### [facility] CLIA [id number] [address] [place] [address] [place] MCH (RBC) [Entitic mass] 30.9 pg Normal 26.0-34.0 [facility] Comment on above: Order Comment: Renetta la Type: BLOOD SPECIMEN [facility] Address: [address] [place] [address] Performed By: #### 5 8410-2 #### [facility] CLIA [id number] [address] [place] [address] [place] MCHC (RBC) [Mass/Vol] 34.3 g/dL Normal 30.5-36.0 [facility] Comment on above: Order Comment: Speci men Type: BLOOD SPECIMEN [facility]: [facility] Address: [address] [place] [address] Performed By: #### 5 8410-2 #### [facility] CLIA [id number] [address] [place] [address] [place] MCV (RBC) [Entitic vol] 89.9 fL Normal 80.0-100.0 [facility] Comment on above: Order Comment: Speci men Type: BLOOD SPECIMEN [facility] Address: [address] [place] [address] Performed By: #### 5 8410-2 #### [facility] CLIA [id number] [address] [place] [address] [place] Nucleated RBC (Bld) [#/Vol] 10*3/uL Normal <0.01 [facility] Comment on above: Order Comment: Speci men Type: BLOOD SPECIMEN [facility]: [facility] Address: [address] [place] [address] Performed By: #### 5 8410-2 #### [facility] CLIA [id number] [address] [place] [address] [place] Platelet mean volume (Bld) [Entitic vol] 8.7 fL Low 9.0-12.7 [facility] Comment on above: Order Comment: Speci men Type: BLOOD SPECIMEN [facility] Address: [address] [place] [address] Performed By: #### 5 8410-2 #### [facility] CLIA [id number] [address] [place] [address] [place] Platelets (Bld) [#/Vol] 346 10*3/uL Normal 150-400 [facility] Comment on above: Order Comment: Speci men Type: BLOOD SPECIMEN [facility] Address: [address] [place] [address] Performed By: #### 5 8410-2 #### [facility] CLIA [id number] [address] [place] [address] [place] RBC (Bld) [#/Vol] 4.47 10*6/uL Normal 3.90-5.20 [facility] Comment on above: Order Comment: Speci men Type: BLOOD SPECIMEN [facility] Address: [address] [place] [address] Performed By: #### 5 8410-2 #### [facility] CLIA [id number] [address] [place] [address] [place] WBC (Bld) [#/Vol] 8.26 10*3/uL Normal 3.70-11.00 [facility] Comment on above: Order Comment: Speci men Type: BLOOD SPECIMEN [facility] Address: [address] [place] [address] Performed By: #### 5 8410-2 #### [facility] CLIA [id number] [address] [place] CT ABD/PEL WO IVCONon 2022 CT ABD/PEL WO IVCON * * *Final Report* * * DATE OF EXAM: Jun 01 2023 8:00PM [facility] 0531 - CT ABD/PEL WO IVCON / PROCEDURE REASON: Abdominal pain, post-op * * * * Physician Interpretation * * * * RESULT: EXAMINATION: CT ABDOMEN AND PELVIS WITHOUT IV CONTRAST HISTORY: Abdominal pain status post right salpingo-oophorectomy several days ago TECHNIQUE: CT of the abdomen and pelvis was performed using standard technique, scanning from just above the dome of the diaphragm to the symphysis pubis. M: CTAP_2 Contrast: None CT Radiation dose: Integrated Dose-length product (DLP) for this visit = 415 mGy*cm. CT Dose Reduction Employed: Automated exposure control. COMPARISON: CT abdomen pelvis 05/23/2019 RESULT: Liver: No mass. Biliary: No bile duct dilation. Cholecystectomy. Spleen: No mass. No splenomegaly. Small splenule. Pancreas: No mass or duct dilation. Adrenals: No mass. Kidneys: Contrast opacifies the bilateral collecting systems. No contour deforming mass or hydronephrosis. GI tract: Small hiatal hernia. No obstruction or wall thickening. Normal appendix. Lymph nodes: No abdominal or pelvic lymphadenopathy. Mesentery/Peritoneum: No ascites or mass. Small volume dependent pneumoperitoneum about the liver likely related to recent surgery. Vasculature: No abdominal aortic aneurysm. Pelvis: Hysterectomy and right salpingo-oophorectomy. Contrast opacifies the bladder. There is minimal stranding about the right vaginal cuff likely related to recent surgery. No pelvic ascites or mass. Bones/Soft Tissues: No suspicious osseous lesions. Subcutaneous gas about the right lower quadrant likely related to trocar insertion from salpingo-oophorectomy. Lower thorax: See concurrent CT PE for thoracic findings. IMPRESSION: No acute findings in the abdomen and pelvis. Minimal stranding about the right vaginal cuff likely related to recent right salpingo-oophorectomy. Trace residual pneumoperitoneum about the liver, likely within normal limits given recent postop status. Transcribed Using Voice Recognition Transcribe Date/Time: Jun 01 2023 8:04P Dictated by: LEIGH BLACK MD This examination was interpreted and the report reviewed and electronically signed by: LEIGH BLACK MD on Jun 01 2023 8:13PM EST [id number] Normal [facility] CT CHEST W IVCON PEon 2022 CT CHEST W IVCON PE * * *Final Report* * * DATE OF EXAM: Jun 01 2023 5:49PM [facility] 0540 - CT CHEST W IVCON PE / PROCEDURE REASON: Pulmonary embolism (PE) suspected, high prob * * * * Physician Interpretation * * * * RESULT: EXAMINATION: CHEST CT WITH CONTRAST (PULMONARY EMBOLISM PROTOCOL) CLINICAL HISTORY: Pulmonary embolism suspected, high pretest probability. Technique: Spiral CT acquisition of the chest from the thoracic inlet to the upper abdomen following IV contrast. Axial 1 and 3 mm thick slices plus coronal and sagittal reformatted images. MQ: CTCP_5 Contrast: 79 mL Omnipaque [address] Radiation dose: Integrated Dose-length product (DLP) for this visit = 291 mGy*cm CT Dose Reduction Employed: Automated exposure control(AEC) and iterative recon Comparison: CT PET 03/19/2015 RESULT: Limitations: None. Evaluation for thromboembolic disease: - Right heart chambers: No thromboembolic disease. No right heart strain. - Main pulmonary arteries: No thromboembolic disease. - Lobar pulmonary arteries: Multiple segmental pulmonary emboli in the lingula and left lower lobe. - Segmental pulmonary arteries: No thromboembolic disease. - Subsegmental pulmonary arteries: No thromboembolic disease. - Additional pulmonary artery findings: The main pulmonary artery is normal in caliber. Lines, tubes, and devices: None. Lung parenchyma and airways: Central airways are patent. No consolidating airspace opacities. Minimal bibasilar atelectasis. Pleural space: Trace bilateral pleural effusions. No pneumothorax. Lower neck, lymph nodes, and mediastinum: The imaged thyroid gland is normal. No lymphadenopathy in the supraclavicular, axillary, mediastinal, or hilar regions. Heart, pericardium, and thoracic vessels: The thoracic aorta is normal in caliber. The cardiac chambers are normal in size. No coronary artery atherosclerotic calcifications are noted, although the study is not optimized for coronary assessment. No pericardial effusion or thickening. Bones and soft tissues: No destructive bone lesion. Chest wall is unremarkable. Upper abdomen: Cholecystectomy. Tiny foci of dependent pneumoperitoneum in the right upper quadrant likely related to recent surgery. Product Design Specialist (topogram) images: Unremarkable. IMPRESSION: Multiple segmental pulmonary emboli in the lingula and left lower lobe as described. No right heart strain. Trace bilateral pleural effusions. Tiny foci of pneumoperitoneum the right upper quadrant likely related to recent surgery. CRITICAL TEST/RESULTS: CRITICAL TEST/RESULTS: Acuity: Critical Finding: Pulmonary embolus Communication: Communicated with Salud Panchal on 06/01/2023 6:05 PM via verbal communication. --END OF FINDING-- Transcribed Using Voice Recognition Transcribe Date/Time: Jun 01 2023 5:57P Dictated by: LEIGH BLACK MD This examination was interpreted and the report reviewed and electronically signed by: LEIGH BLACK MD on Jun 01 2023 6:06PM EST [id number] CRITICAL!! Invalid Interpretation Code [facility] Comprehensive metabolic 2000 panelon 06-01-2023 Albumin [Mass/Vol] 4.2 g/dL Normal 3.9-4.9 [facility] Comment on above: Order Comment: Speci men Type: BLOOD SPECIMEN [facility] Address: [address] [place] [address] Performed By: #### 5 8410-2 #### [facility] CLIA [id number] [address] [place] [address] [place] ALP [Catalytic activity/Vol] 65 U/L Normal 34-123 [facility] Comment on above: Order Comment: Speci men Type: BLOOD SPECIMEN [facility] Address: [address] [place] [address] Performed By: #### 5 8410-2 #### [facility] CLIA [id number] [address] [place] [address] [place] ALT [Catalytic activity/Vol] 14 U/L Normal 7-38 [facility] Comment on above: Order Comment: Speci men Type: BLOOD SPECIMEN [facility] Address: [address] [place] [address] Performed By: #### 5 8410-2 #### [facility] CLIA [id number] [address] [place] [address] [place] Anion gap [Moles/Vol] 10 mmol/L Normal 9-18 [facility] Comment on above: Order Comment: Speci men Type: BLOOD SPECIMEN [facility] Address: [address] [place] [address] Performed By: #### 5 8410-2 #### [facility] CLIA [id number] [address] [place] [address] [place] AST [Catalytic activity/Vol] 15 U/L Normal 13-35 [facility] Comment on above: Order Comment: Speci men Type: BLOOD SPECIMEN [facility] Address: [address] [place] [address] Performed By: #### 5 8410-2 #### [facility] CLIA [id number] [address] [place] [address] [place] Bilirubin [Mass/Vol] 0.4 mg/dL Normal 0.2-1.3 [facility] Comment on above: Order Comment: Speci men Type: BLOOD SPECIMEN [facility] Address: [address] [place] [address] Performed By: #### 5 8410-2 #### [facility] CLIA [id number] [address] [place] [address] [place] Calcium [Mass/Vol] 9.5 mg/dL Normal 8.5-10.2 [facility] Comment on above: Order Comment: Speci men Type: BLOOD SPECIMEN [facility] Address: [address] [place] [address] Performed By: #### 5 8410-2 #### [facility] CLIA [id number] [address] [place] [address] [place] Chloride [Moles/Vol] 102 mmol/L Normal 97-105 [facility] Comment on above: Order Comment: Speci men Type: BLOOD SPECIMEN [facility] Address: [address] [place] [address] Performed By: #### 5 8410-2 #### [facility] CLIA [id number] [address] [place] [address] [place] CO2 [Moles/Vol] 28 mmol/L Normal 22-30 [facility] Comment on above: Order Comment: Speci men Type: BLOOD SPECIMEN [facility] Address: [address] [place] [address] Performed By: #### 5 8410-2 #### [facility] CLIA [id number] [address] [place] [address] [place] Creatinine [Mass/Vol] 1.08 mg/dL High 0.58-0.96 [facility] Comment on above: Order Comment: Speci men Type: BLOOD SPECIMEN [facility] Address: [address] [place] [address] Performed By: #### 5 8410-2 #### [facility] CLIA [id number] [address] [place] [address] [place] Creatinine and Glomerular filtration rate.predicted panel (S/P/Bld) 64 mL/min/1.73m??? Normal >=60 [facility] Comment on above: Order Comment: Speci men Type: BLOOD SPECIMEN [facility] Address: [address] [place] [address] Result Comment: [facility] Glomerular Filtration Rate (eGFR) is calculated using the 2020 CKD-EPI creatinine equation. This equation utilizes serum creatinine, sex, and age as parameters. The creatinine assay has traceable calibration to isotope dilution-mass spectrometry. Refer to KDIGO guidelines for clinical interpretation. In patients with unstable renal function, e.g. those with acute kidney injury, the eGFR may not accurately reflect actual GFR. Performed By: #### 5 8410-2 #### [facility] CLIA [id number] [address] [place] [address] [place] Glucose [Mass/Vol] 90 mg/dL Normal 74-99 [facility] Comment on above: Order Comment: Renetta la Type: BLOOD SPECIMEN [facility] Address: [address] [place] [address] Result Comment: The [place] [employer] (ADA) provides guidance for cutoff values for fasting glucose and random glucose. The ADA defines fasting as no caloric intake for at least 8 hours. Fasting plasma glucose results between 100 to 125 mg/dL indicate increased risk for diabetes (prediabetes). Fasting plasma glucose results greater than or equal to 126 mg/dL meet the criteria for diagnosis of diabetes. In the absence of unequivocal hyperglycemia, results should be confirmed by repeat testing. In a patient with classic symptoms of hyperglycemia or hyperglycemic crisis, random plasma glucose results greater than or equal to 200 mg/dL meet the criteria for diagnosis of diabetes. Reference: Standards of Medical Care in Diabetes 2016, [place] [employer]. Diabetes Care. 2016.39(Suppl 1). Performed By: #### 5 8410-2 #### [facility] CLIA [id number] [address] [place] [address] [place] Potassium [Moles/Vol] 4.2 mmol/L Normal 3.7-5.1 [facility] Comment on above: Order Comment: Renetta la Type: BLOOD SPECIMEN [facility] [facility] Address: [address] [place] [address] Performed By: #### 5 8410-2 #### [facility] CLIA [id number] [address] [place], [place] [id number] [place] Protein [Mass/Vol] 7.3 g/dL Normal 6.3-8.0 [facility] Comment on above: Order Comment: Speci men Type: BLOOD SPECIMEN Ordering Facility: [facility] Address: [address] [place] [address] Performed By: #### 5 8410-2 #### [facility] CLIA [id number] [address] [place] [address] [place] Sodium [Moles/Vol] 140 mmol/L Normal 136-144 [facility] Comment on above: Order Comment: Speci men Type: BLOOD SPECIMEN Ordering Facility: [facility] Address: [address] [place] [address] Performed By: #### 5 8410-2 #### [facility] CLIA [id number] [address] [place] [address] [place] Urea nitrogen [Mass/Vol] 18 mg/dL Normal 7-21 [facility] Comment on above: Order Comment: Speci men Type: BLOOD SPECIMEN Ordering Facility: [facility] Address: [place] [address] Performed By: #### 5 8410-2 #### [facility] CLIA [id number] [address] [place] [address] [place] ECG COMPLETEon 06-01-2023 ECG COMPLETE Ventricular Rate : 6 6 BPM Atrial Rate : 66 BPM P-R Interval : 150 ms QRS Duration : 78 ms Q-T Interval : 382 ms QTC Calculation(Bazett) : 400 ms Calculated P [place] : 44 degrees Calculated R [place] : 62 degrees Calculated T [place] : 1 degrees NORMAL SINUS RHYTHM WITH SINUS ARRHYTHMIA CANNOT RULE OUT INFERIOR INFARCT , AGE UNDETERMINED ABNORMAL ECG WHEN COMPARED WITH ECG OF 17-MAR-2015 08:30, ST NO LONGER ELEVATED IN LATERAL LEADS T WAVE INVERSION NOW EVIDENT IN INFERIOR LEADS T WAVE INVERSION NOW EVIDENT IN LATERAL LEADS Confirmed by MD LYDIA, KONRAD ([id number]), editor school photograph JOSE C STEVE ([id number]) on 06/02/2023 10:12:19 AM NAME : DAMARI RIOS PID : [id number] : 1975 Gender : Female Race : ORD : [id number] Procedure Date : Jun 01 2023 15:34:17 Edit Date : Jun 02 2023 10:12:20 Diagnosis: NORMAL SINUS RHYTHM WITH SINUS ARRHYTHMIA CANNOT RULE OUT INFERIOR INFARCT , AGE UNDETERMINED ABNORMAL ECG WHEN COMPARED WITH ECG OF 17-MAR-2015 08:30, ST NO LONGER ELEVATED IN LATERAL LEADS T WAVE INVERSION NOW EVIDENT IN INFERIOR LEADS T WAVE INVERSION NOW EVIDENT IN LATERAL LEADS Confirmed by MD FREEMAN BRIAN ([id number]), editor school photograph JOSE C STEVE ([id number]) on 06/02/2023 10:12:19 AM Test Reason : Chest Pain Location : 26 : ER L ED Overread By : MD FREEMAN BRIAN Edited By : JOSE C STEVE Referred By : , Acquired by : , [facility] ED NOTEon 06-01-2023 ED NOTE HNO ID: [id number] Author: Amy Ralph RN Service: ? Author Type: Registered Nurse Type: ED Notes Filed: 06/01/2023 5:29 PM Note Text: Bed: ED-10 Expected date: Expected time: Means of arrival: Comments: Triage when clean [facility] ED PROV NOTEon 06-01-2023 ED PROV NOTE HNO ID: [id number] Author: Salud Panchal DO Service: Emergency Medicine Author Type: Physician Type: ED Provider Notes Filed: 06/02/2023 12:49 AM Note Text: ED Provider Note Patient Name: Damari Rios : 1975 SERVICE DATE: 06/01/23 History Patient presents with: Shortness of Breath Chest Pain: Pressure Post Op: Cyst removal Patient is a 47-year-old female with history of kidney stones, hypertension presenting with concerns for chest pain, abdominal pain. Patient states that she had surgery at on Sunday. She had a right salpingo-oophorectomy and a urethral sling placed. She notes that over the last day or so she started developing chest pain as well as some shortness of breath and the pain seemed to have gotten worse. She endorses right-sided abdominal pain that she has had since surgery but persistent. She denies history of DVT or PE. Denies other recent surgery, recent travel or major injury. She denies any hemoptysis, history of malignancy, leg edema or calf pain. She does endorse some right leg pain since surgery. She denies history of CAD. Does have history of hypertension but denies hyperlipidemia, diabetes. Non-smoker. She has had occasional vomiting without diarrhea, melena or hematochezia. She reports some dysuria on arrival to ED without other urinary symptoms. She denies any other acute complaints. PAST MEDICAL HISTORY Diagnosis Date Bipolar I disorder, most recent episode (or current) unspecified Calculus of bile duct without mention of cholecystitis, with obstruction Irritable bowel syndrome Kidney stone Known health problems: none 04/04/2021 Other and unspecified ovarian cyst Other cholecystitis Seasonal allergies Temporomandibular joint disorders, unspecified Unspecified asthma(493.90) PAST SURGICAL HISTORY Procedure Laterality Date COLONOSCOP W/ OR W/O BRSH SPEC 04/03/12 pt discomfort, normal to transverse colon - ordered BE EGD W/O BRSH SPECIMEN W/BX 04/03/12 mild gastritis HYSTERECTOMY HX 2017 LAPAROSCOPIC CHOLEYCYSTECTOMY 2000 Cholecystectomy, lap LIGATE FALLOPIAN TUBE 1998 NONE 04/04/2021 PAST SURGICAL HISTORY OF 2016 ureteral stent placed REMOVAL ADENOIDS,PRIMARY,<12 Y/O 2000 Adenoidectomy REMOVAL OF TONSILS,<12 Y/O 2000 Tonsillectomy FAMILY HISTORY Problem Relation Age of Onset Hypertension Mother Breast Cancer Paternal Grandmother lung GI Paternal Grandfather Diabetes Maternal Grandmother from lung ca Diabetes Maternal Grandfather from unk cause Colon Cancer Maternal Uncle age 43 other (POTS) Sister other (Lupus) Other niece other (lupus) Other Anesthesia Problems No Family History Colon Polyps No Family History Social History Tobacco Use Smoking status: Never Smokeless tobacco: Never Vaping Use Vaping Use: Never used Substance and Sexual Activity Alcohol use: Yes Comment: very rare- maybe 2x/ year Drug use: No Sexual activity: Yes Partners: Male control/protection: Tubal Ligation ALLERGIES Allergen Reactions Penicillins Anaphylaxis Bactrim [Sulfametho* Codeine Rash Ultram [Tramadol Hc* Intolerance Review of Systems Constitutional: Negative for chills and fever. Respiratory: Positive for shortness of breath. Cardiovascular: Positive for chest pain. Gastrointestinal: Positive for abdominal pain and vomiting. Negative for blood in stool and diarrhea. Genitourinary: Positive for dysuria. Negative for frequency, hematuria and urgency. Hematological: Does not bruise/bleed easily. Physical Exam Vitals BP Pulse Temp Temp src Resp SpO2 Weight Height 06/01/23 1530 06/01/23 1530 06/01/23 1530 06/01/23 1735 06/01/23 1530 06/01/23 1530 06/01/23 1530 06/01/23 1530 (!) 205/106 74 36.4 ?C (97.5 ?F) Oral 18 (!) 94 % 73.5 kg (162 lb) 1.626 m (5' 4 ) Physical Exam Vitals and nursing note reviewed. Constitutional: General: She is not in acute distress. Appearance: Normal appearance. She is not toxic-appearing or diaphoretic. HENT: Head: Normocephalic. Eyes: General: No scleral icterus. Conjunctiva/sclera: Conjunctivae normal. Cardiovascular: Rate and Rhythm: Normal rate and regular rhythm. Pulses: Radial pulses are 2+ on the right side and 2+ on the left side. Dorsalis pedis pulses are 2+ on the right side and 2+ on the left side. Pulmonary: Effort: Pulmonary effort is normal. No respiratory distress. Breath sounds: No wheezing or rales. Abdominal: Palpations: Abdomen is soft. Tenderness: There is abdominal tenderness. There is no guarding or rebound. Comments: Surgical incisions to abdomen are clean, dry and intact without signs of infection. Abdomen is soft, diffuse tenderness mostly on the right side without peritonitis Musculoskeletal: Right lower leg: No edema. Left lower leg: No edema. Comments: No leg edema, no calf tenderness to palpation bilaterally. No palpable (more content not included)... Normal [facility] FLUABV+SARS-CoV-2+RSV Pnl Re sp ANDRY+probeon 06-01-2023 FLUABV+SARS-CoV-2+RSV Pnl Resp ANDRY+probe COVID 19 RESULT: Not detected The method used is RT-PCR or an equivalent NAAT method. Reference Range(the expected result in uninfected individuals): Not detected INFLUENZA A PCR: Not detected INFLUENZA B PCR: Not detected RSV PCR: Not detected Normal [facility] Comment on above: Performed By: #### 9 5941-1 ####[facility] [id number] [place] [address] [place] HIGH SENSITIVITY TROPONIN T (INITIAL)on 06-01-2023 Troponin T.cardiac High sensitivity method [Mass/Vol] <6 Normal <12 [facility] Comment on above: Order Comment: Renetta la Type: BLOOD SPECIMEN Ordering Facility: [facility] Address: [address] [place] [address] Result Comment: When assessing risk for acute coronary syndromes: In patients undergoing blood draw greater than or equal to 2 hours from symptom onset, with history of very low to moderate risk and non-ischemic ECG, an initial hs-Troponin T less than 12 ng/L AND a 1 hour delta hs-Troponin T less than 3 ng/L should be considered very low risk for 30 day MACE. Performed By: #### 5 8410-2 #### [facility] CLIA [id number] [address] [place] [address] [place] HIGH SENSITIVITY TROPONIN T (SECOND)on 06-01-2023 Troponin T.cardiac High sensitivity method [Mass/Vol] <6 Normal <12 [facility] Comment on above: Order Comment: Renetta la Type: BLOOD SPECIMENOrdering Facility: [facility] Address: [address] [place] [address] Result Comment: When assessing risk for acute coronary syndromes: In patients undergoing blood draw greater than or equal to 2 hours from symptom onset, with history of very low to moderate risk and non-ischemic ECG, an initial hs-Troponin T less than 12 ng/L AND a 1 hour delta hs-Troponin T less than 3 ng/L should be considered very low risk for 30 day MACE. Performed By: #### 3 3762-6, [id number] ####[facility] [id number] [place] [address] [place] Magnesium SerPl-mCncon 06-01 Magnesium [Mass/Vol] 2.1 mg/dL Normal 1.7-2.3 [facility] Comment on above: Order Comment: Renetta la Type: BLOOD SPECIMEN Ordering Facility: [facility] Address: [address] [place] [address] Performed By: #### 5 8410-2 #### [facility] CLIA [id number] [address] [place] [address] [place] NT-proBNP SerPl-mCncon 06-01 Natriuretic peptide.B prohormone N-Terminal [Mass/Vol] 131 pg/mL High <125 [facility] Comment on above: Order Comment: Renetta la Type: BLOOD SPECIMENOrdering Facility: [facility] Address: [address] [place] [address] Performed By: #### 3 3762-6, [id number] ####[facility] [id number] [place] [address] [place] PT panel Coag (PPP)on 2022 INR Coag (PPP) [Relative time] 1.0 {INR} Normal 0.9-1.3 [facility] Comment on above: Order Comment: Renetta la Type: BLOOD SPECIMENOrdering Facility: [facility] Address: [address] [place] [address] Result Comment: Tiesha min K Antagonist (VKA) Therapeutic Range: INR 2 to 3 (Target INR of 2.5) Note: For patients treated with VKA drugs, such as warfarin, the [place] [employer] 2012 Guideline recommends a therapeutic INR range of 2 to 3 (target INR of 2.5). This recommendation includes high-risk patients with antiphospholipid syndrome with previous arterial or venous thromboembolism, current-generation mechanical or bioprosthetic aortic heart valve replacement. Note: Patients with mechanical aortic valve replacement and additional risk factors for thromboembolic events (atrial fibrillation, previous thromboembolism, LV dysfunction, hypercoagulable conditions) or an older generation mechanical AVR (i.e., ball in-Cage) or any mechanical MVR should have a INR therapeutic range of 2.5 to 3.5 (target INR of 3). Marisela TIDWELL, et al. Chest 2012, 141:7S-47S Roberta RA, et al. JAC 2017, 70: 252-289 Performed By: #### 3 4528-0, 81317-3 ####[facility]IA [id number] [place] [address] [place] PT Coag (PPP) [Time] 10.3 s Normal 9.7-13.0 [facility] Comment on above: Order Comment: Renetta la Type: BLOOD SPECIMENOrdering Facility: [facility] Address: [address] [place] [address] [place] [address] Performed By: #### 3 4528-0, 44926-2 ####[facility] [id number] [address] Surgical pathology studyOrde red By: Mia Terry on 06-01-2023 Laboratory comment Ed (Report) a8wfdROzQCCzk7jaBLFcuL FuZzEwMzNcZnRuYmpcdWMx KFsqikHhSWsen7XbB6UtEi AwMFxhbnNpXGRlZmxhbmcx IAWoYUU5dhRmJFZnADlsWK TlYColDr7owTTkyZizCkXr IEGhq8twycCJTKezTVNDMX a5a6kxFJRtScP4iWNaSMmo A5umehTjtMMqR6Nwu3UwBK v0nN90IOGnyS8xkHGaSVuh acHqPbT4VXcoIUNuYlR0VU AozEEwOYWzO7caPIYeLJtw CHVuCGmdrDIcQTX9bYrrc4 T9dAAdyPKsmJftOyRfZvPv TwRHu6AaZKt6sEnaZ8ViBL JiSbE8mVYmSICzFTaePSMv TESyafH9sY15AVxperJ5cR Tkf1Tmc37pn238pO9psAMk RAJ1FQQfUYBptXBmFJVcOY G2JTFhbDTaI6puMwKrkKRo H2YzAfNpqOWkL3OyPgFssZ OzC9QqYfUzvWKfSNUmdNI8 VBihx384AZA0EgDjGO1hS9 Uqi1G3bH7tqUAeSYIblZCy LtFwRRPfsn8mvCLfWXsjx1 BdBAO2jyO2qLCcrZBwQQYa KC32Hexrx1HaPqijCOE0UX OqslYhs6Rbn1qtIqBjbtSp T9wmJ7GhLRXmOQAmTLSvXd EiotNdq3Mcl3NstZQgjDx9 w2dvDOZsRAQlaOkbz6egKH L2HXQuN1V2hRZll7psPNuh YWWivXR9hoT8ALxtBZSibp B0ejW8FXjvLUAevSP0heI0 JPaqWMFxKoQ8nqQ0PSfzBD LdWVA0WaGkXFTlv2Afjbfd PeQgo9DnoAYvRBrhI61yx1 43YTLblpUrE0ppyNQjzcww dDSmrmooPUmqwiU9CYTdXA BsYWluXGYxXGZzMjBcbGFu ZzEwMzNcaGljaFxmMVxkYm XmJOKbVKjlE2atNiFdYyGq IHALjJN0jNHcp5ztmtC9uL FsPZ8fGPPyvLDfptTvf3J0 TUY5vPLthS9nwEWmRQTcdA EdbkFjtd71kKDaqEZ2PPPs QEPscAOtzS3eWJMxAPOMqN 5hbCBJbnRlcnByZXRhdGlv os7VgEZelx3cnZUlF6KibL lmaWVzIHRoYXQgdGhleSBo ZHOzBBLgcfggy0AiRUAtlK [id number] [facility] Work Phone: Pathology report Cancer Narrative Surgical Pathology Case: [id number] Authorizing Provider: Main Reed MD Collected: 05/28/2023 1335 Ordering Location: [facility] Received: 05/28/2023 1415 OR Pathologist: Mia Terry MD Specimen: OVARY OOPHORECTOMY RIGHT, RIGHT OVARY [facility] Work Phone: Pathology report final diagnosis Narrative e0cawMBtBTCerDNzTSPcQP wnucLhWZGrzVFfG8Jdsufy CIckJW9aRO7omEdamDJuyS OiVDQcLuYwy7zre560lGRt i0bcOYGAKKfxBKEJOCl2iZ rrG29zo0C5PvlsL97elRBf FKO9NVNwAUVdjLAcYJUgCO W6KKDahHVlM3lpXUDqGX0s nlepTHihNCohVMEkcIH2YC UkhPZeG7VmYBYmPRddIVZx ggg2QnTgDg4jkZFzoKkiHU xwYXJkXHBsYWluXGJcZnMy MCBBLiBSSUdIVCBPVkFSWS ygW23SUN7LTVHDD22NRHky YjAgIFxwYXJccGFyZCAtLS SViiFlpWL8wXQxKDGoiHxp D0SbDJTkS2ctuTipJCA0 [facility] Work Phone: Pathology report gross observation Narrative g5dtxVGeZPNvrNOERRA1UN JuLL0piXybqTt3gIztXAJl srW7eNQeSKeaq4fbUJC8p6 fwojWLBblkFCAoCC2uXAde ZMLnRN7nYkXcWVSrJxWgSO BhcGVydzEyMjQwXHBhcGVy eQJ0WEJcQO4jhunqOZylMQ ymMMCaqhA2UVJhsLTfW1Hf MSKdFT2trpjmVGH7BLESPb zuHo0hyFAalQfuFmCkPpJo HYPiJYWrLJNnuPiuK0Tte0 UcKJp2eH0NJyyfXST7BFYS WgyvXqojtIlkc6XrtOWfMN NnIFxcaWQgNTEwMDAgXFxk OoYNKxXiDeM6Eds6HOw1Uz C9SGh6GAZJAAIiQlG6Ahl3 OYK5QXd4UHTkFN7pTZkdsT NiKRylSnszYAxaA444DShm OKVvG0FfK1LaZMctWnEhAX ktGKIzTBEiMAxnNTBjS2TL YGSbIOS2HBI7QiSgIWc5WN lpE9GRBFFvLGR4Vuu5CWR1 DzT0EFt0LTLMCb3sNkB3Nf SbUylyKTV5GpC0KNehegdx RKh8JAExSZtlpyBuDJsuQk frZBgmY08qdKDpLBNYQkqa bGFpblxlcGljTmVzdERvYz GiCIvujPTjmQSeGV6SYKu9 cmNoXGZzMjIgQTogUmVjZW a1OBLhcS9iYo2fdKZrcB6f OKouXhAxXKBhk3g1xRO3bF EuePL5tLXkiSmcUR7kmXUp IE9uCUyow2XljTZtJE33zF AbvzVyxmVlKtJkO9u6YC19 XOI5GgdddCHyDE8fqO80JF A4MJNrk5UqxTs3TLR2moD4 lDFiWEVfxoWjeHZ7cGInUF KisGUbJN8ujC0kdjXdiSZy hV3kjWgck8vhkFRzmRuiTF ZwKTy9RodwRQteh8Q2MVQx p5WxBtYkPTinnBXmi9XltA 7sBBCuISP4LRAlTzC8MTCk MCBjbSBhbmQgMTAuMSBnLi BhWLqsOPQ6vPRpnaMzCCV5 maFzJ6ZljTJpsP0uMRXxKp vwB2jxWZCNTGR8bN6rpF5z IHJldmVhbHMgYSBkaXNydX W7LCVcWUCxm635mKYwfK5b SOPscVO1VKUjxq6bVKAuEb Oaj002XG29qcmudIDbd2Ll aU8nXNVpKKX9QXFuFPV9DO EqOGKsgL5qWJHdCYKsQV6p cS8mrpvjR1P1BBA2zoTqX4 UrfLGdxJcnl6i3NHQpMIBu Jyg9vXDdeR75ZBBjk4AheE h2QYPqAD6vuC22sknrAP5i IGZpYnJvdGljLiAgQSBkZW Prxpa2aYKoJU3tr1RzyUSe df32RNtjJU38tGLoYHVlPB FSYGRlFUCboyXohOa1LFHp NYL7bM1rysXielXjn3WuwB z0xFQcISwaOPRnG3Gkr9K1 bWXiCFXgWSdxP6b1VCGxIF wzgqJhbYVtTYX8q6JuPWGI mG13b8weVCMrhnAeanEthK KdDK9xILMhimIKEaAAI1wy HGDlIJxcv3AgLZuhyIqcRR PjCyJsCPgkCEGrA18wm0HR j3Njv2hsiDefr3SnpAJdUL 06NNFkjMXiSLH2OB4gdFhw YXIgDQpccGFyZCANClxwbG FpbiANCn0= [facility] Work Phone: Pathology report relevant history Narrative d7wgsUUzZIJft9vdAOYdnL NtEzIgBtIhVwLaCxz4BBHy uxC5Bti1UJXbMHspgV5kRR IxKYpfG6plqiAlgJOdB6Cb p2QiRCy5iI2lnVkdvS8pLv LjOyGqZFZCygRoh7NmWOge B69lz6tdWemmVSVkQDHkTM hhbCBtYXNzIFtOOTQuODld XHBhciB9 [facility] Work Phone: [facility] Work Phone: XR CHEST 1V FRONTAL PORTon 1 08-02-2022 XR CHEST 1V FRONTAL PORT * * *Final Report* * * DATE OF EXAM: Jun 01 2023 4:17PM HCX [id number] - XR CHEST 1V FRONTAL PORT / PROCEDURE REASON: Chest pain * * * * Physician Interpretation * * * * RESULT: EXAMINATION: CHEST RADIOGRAPH (PORTABLE SINGLE VIEW AP) Exam Date/Time: 06/01/2023 4:17 PM CLINICAL HISTORY: Chest pain MQ: XCPR_5 Comparison: 10/27/2020, and others RESULT: Lines, tubes, and devices: None. Lungs and pleura: No consolidation. No lung mass. No pleural effusion. Right azygos lobe. Cardiomediastinal silhouette: Normal cardiomediastinal silhouette. Other: No acute bony abnormalities. IMPRESSION: No acute radiographic abnormality. Transcribed Using Voice Recognition Transcribe Date/Time: Jun 01 2023 4:46P Dictated by: SUPA BEAR MD This examination was interpreted and the report reviewed and electronically signed by: SUPA BEAR MD on Jun 01 2023 4:47PM EST [id number] Normal [facility] aPTT PPPon 06-01-2023 aPTT Coag (PPP) [Time] 28.6 s Normal 23.0-32.4 [facility] Comment on above: Order Comment: Speci men Type: BLOOD SPECIMENOrdering Facility: [facility] Address: [address] [place] [address] Performed By: #### 3 4528-0, 21928-7 ####[facility]ORYCLIA [id number] [address] OF [facility] ECG 12 leadOrdered By: Mahesh Harrell on 05-29-2023 Atrial Rate 63 BPM [facility] Work Phone: P [place] 50 degrees [facility] Work Phone: MI Interval 173 ms [facility] Work Phone: Q Onset 252 ms [facility] Work Phone: QRS Count 12 beats [facility] Work Phone: QRS Duration 89 ms [facility] Work Phone: QT Interval 399 ms [facility] Work Phone: QTC Calculation(Bazett) 418 ms [facility] Work Phone: QTC Fredericia 412 ms [facility] Work Phone: R [place] 24 degrees [facility] Work Phone: T [place] 103 degrees [facility] Work Phone: T Offset 452 ms [facility] Work Phone: Ventricular Rate 66 BPM [facility] Work Phone: [facility] Work Phone: ECG 12 leadon 05-29-2023 Sinus rhythm Ventricular premature complex Nonspecific T abnormalities, lateral leads ST elev, probable normal early repol pattern Baseline wander in lead(s) V3,V6 Confirmed by Mahesh Harrell ([id number]) on 05/29/2023 9:35:19 AM MUSE Mahesh Harrell DO - 05/29/2023 Sinus rhythm Ventricular premature complex Nonspecific T abnormalities, lateral leads ST elev, probable normal early repol pattern Baseline wander in lead(s) V3,V6 Confirmed by Mahesh Harrell ([id number]) on 05/29/2023 9:35:19 AM [facility] Work Phone: ECG 12-LEADon 05-28-2023 ECG 12-LEAD Ventricular Rate 66 Atrial Rate 63 P-R Interval 173 QRS Duration 89 Q-T Interval 399 QTC Calculation(Bazett) 418 P [place] 50 R [place] 24 T [place] 103 QRS Count 12 Q Onset 252 T Offset 452 QTC Fredericia 412 Diagnosis Sinus rhythm Ventricular premature complex Nonspecific T abnormalities, lateral leads ST elev, probable normal early repol pattern Baseline wander in lead(s) V3,V6 Confirmed by Mahesh Harrell ([id number]) on 05/29/2023 9:35:19 AM Normal [facility] Surgical pathology studyon 1 07-28-2022 Surgical pathology study Pathology report.total SEE COMMENT Surgical Pathology Case: [id number] Authorizing Provider: Mani Reed MD Collected: 05/28/2023 1335 Ordering Location: [facility] Received: 05/28/2023 1415 OR Pathologist: Mia Terry MD Specimen: OVARY OOPHORECTOMY RIGHT, RIGHT OVARY Path report.final diagnosis SEE COMMENT A. RIGHT OVARY, OOPHORECTOMY : -- Ovary with follicular cyst Laboratory comment By the signature on this report, the individual or group listed as making the Final Interpretation/Diagnos is certifies that they have reviewed this case. Path report.relevant Hx SEE COMMENT Pre-op diagnosis: Adnexal mass [N94.89] Path report.gross observation SEE COMMENT A: Received in formalin, labeled with the patient's name and hospital number and right ovary , is an intact, focally punctured ovary with a predominantly smooth white-leiva outer surface, measuring 3.5 x 3.3 x 2.0 cm and 10.1 g. The external surface is inked black. Sectioning reveals a disrupted, smooth lined cyst devoid of contents, measuring 1.5 x 1.0 x 0.5 cm. The remaining cut surface is pink-yellow, focally edematous, and fibrotic. A definitive mass is not identified. [employer] Pick[employer] sections are submitted in 4 cassettes to include disrupted cyst. Photographs are taken. ANS Normal [facility] Comment on above: Order Comment: Pre-o p diagnosis: Adnexal mass [N94.89] Tropinin I.cardiac panel Hig h sensitivity methodon 05-28-2023 Interpretation and review of laboratory results Normal [facility] Less than 99th percentile of normal range cutoff- Female and children under 18 years old <14 ng/L; Male <21 ng/L: Negative Repeat testing should be performed if clinically indicated. Female and children under 18 years old 14-50 ng/L; Male 21-50 ng/L: Consistent with possible cardiac damage and possible increased clinical risk. Serial measurements may help to assess extent of myocardial damage. >50 ng/L: Consistent with cardiac damage, increased clinical risk and myocardial infarction. Serial measurements may help assess extent of myocardial damage. NOTE: Children less than 1 year old may have higher baseline troponin levels and results should be interpreted in conjunction with the overall clinical context. NOTE: Troponin I testing is performed using a different testing methodology at [facility] than at other [facility]. Direct result comparisons should only be made within the same method. [facility] Troponin I, High Sensitivity , Initialon 05-28-2023 Tropinin I.cardiac panel High sensitivity method 3 ng/L 0 - 13 ng/L [facility] Troponin I.cardiac panelon 1 07-28-2022 Tropinin I.cardiac panel High sensitivity method 3 ng/L Normal 0-13 [facility] Comment on above: Order Comment: LIBRADO MAL PACU GERD SYMPTOMS Less than 99th percentile of normal range cutoff- Female and children under 18 years old <14 ng/L; Male <21 ng/L: Negative Repeat testing should be performed if clinically indicated. Female and children under 18 years old 14-50 ng/L; Male 21-50 ng/L: Consistent with possible cardiac damage and possible increased clinical risk. Serial measurements may help to assess extent of myocardial damage. >50 ng/L: Consistent with cardiac damage, increased clinical risk and myocardial infarction. Serial measurements may help assess extent of myocardial damage. NOTE: Children less than 1 year old may have higher baseline troponin levels and results should be interpreted in conjunction with the overall clinical context. NOTE: Troponin I testing is performed using a different testing methodology at [facility] than at other [facility]. Direct result comparisons should only be made within the same method. Performed By: #### 8 9577-1 #### RADHA Mcclain ([id number]) [facility] ([facility] [place]) [address] [place] [address] POCT UA (nonautomated) vini zepeda 05-22-2023 Appearance (U) Clear Clear [facility] Work Phone: Glucose Test strip (U) [Mass/Vol] Negative NEGATIVE mg/dl [facility] Work Phone: Hemoglobin Ql (U) Negative NEGATIVE [facility] Work Phone: Leukocyte esterase Test strip Ql (U) Negative NEGATIVE [facility] Work Phone: Nitrite Ql (U) Negative NEGATIVE [facility] Work Phone: pH (U) 6.5 [pH] No Reference Range Established [facility] Work Phone: POC Bilirubin, Urine Negative NEGATIVE [facility] Work Phone: POC Color, Urine Yellow Straw, Yellow, Light-Yellow [facility] Work Phone: POC Ketones, Urine Negative NEGATIVE mg/dl [facility] Work Phone: POC Protein, Urine Negative NEGATIVE, 30 (1+) mg/dl [facility] Work Phone: POC Specific Raysal, Urine 1.025 1.005 - 1.035 [facility] Work Phone: POC Urobilinogen, Urine 0.2 0.2, 1.0 EU/DL [facility] Work Phone: [facility] Work Phone: CBC W Auto Differential pane l (Bld)on 05-14-2023 Basophils (Bld) [#/Vol] 0.04 10*3/uL [facility] Basophils/100 WBC (Bld) 0.5 % 0.0 - 2.0 % [facility] Eosinophils (Bld) [#/Vol] 0.22 10*3/uL [facility] Eosinophils/100 WBC (Bld) 2.8 % 0.0 - 6.0 % [facility] Erythrocyte distribution width (RBC) [Ratio] 12.8 % 11.5 - 14.5 % [facility] Hematocrit (Bld) [Volume fraction] 43.2 % 36.0 - 46.0 % [facility] Hemoglobin (Bld) [Mass/Vol] 14.1 g/dL 12.0 - 16.0 g/dL [facility] Immature granulocytes (Bld) [#/Vol] 0.02 10*3/uL [facility] Immature granulocytes/100 WBC (Bld) 0.3 % 0.0 - 0.9 % [facility] Comment on above: Immature Granulocyte Count (IG) includes promyelocytes, myelocytes and metamyelocytes but does not include bands. Percent differential counts (%) should be interpreted in the context of the absolute cell counts (cells/UL). Lymphocytes (Bld) [#/Vol] 2.58 10*3/uL [facility] Lymphocytes/100 WBC (Bld) 32.3 % 13.0 - 44.0 % [facility] MCH (RBC) [Entitic mass] 29.7 pg 26.0 - 34.0 pg [facility] MCHC (RBC) [Mass/Vol] 32.6 g/dL 32.0 - 36.0 g/dL [facility] MCV (RBC) [Entitic vol] 91 fL 80 - 100 fL [facility] Monocytes (Bld) [#/Vol] 0.48 10*3/uL [facility] Monocytes/100 WBC (Bld) 6.0 % 2.0 - 10.0 % [facility] Neutrophils (Bld) [#/Vol] 4.66 10*3/uL [facility] Comment on above: Percent differential counts (%) should be interpreted in the context of the absolute cell counts (cells/uL). Neutrophils/100 WBC (Bld) 58.1 % 40.0 - 80.0 % [facility] Nucleated RBC/100 WBC (Bld) [Ratio] 0.0 % [facility] Platelets (Bld) [#/Vol] 352 10*3/uL [facility] RBC (Bld) [#/Vol] 4.74 10*6/uL [facility] WBC (Bld) [#/Vol] 8.0 10*3/uL [facility] Basophils (Bld) [#/Vol] 0.04 x10*3/uL Normal 0.00-0.10 [facility] Comment on above: Performed By: #### 5 7021-8 #### RIRI Hawkins ([id number]) [facility] ([facility]) [address] [place] [address] Basophils/100 WBC (Bld) 0.5 % Normal 0.0-2.0 [facility] Comment on above: Performed By: #### 5 7021-8 #### RIRI Hawkins ([id number]) [facility] ([facility]) [address] [place] [address] Eosinophils (Bld) [#/Vol] 0.22 x10*3/uL Normal 0.00-0.70 [facility] Comment on above: Performed By: #### 5 7021-8 #### RIRI Hawkins ([id number]) [facility] ([facility]) [address] [place] [address] Eosinophils/100 WBC (Bld) 2.8 % Normal 0.0-6.0 [facility] Comment on above: Performed By: #### 5 7021-8 #### RIRI Hawkins ([id number]) [facility] ([facility]) [address] [place] [address] Erythrocyte distribution width (RBC) [Ratio] 12.8 % Normal 11.5-14.5 [facility] Comment on above: Performed By: #### 5 7021-8 #### RIRI Hawkins ([id number]) [facility] ([facility]) [address] [place] [address] Hematocrit (Bld) [Volume fraction] 43.2 % Normal 36.0-46.0 [facility] Comment on above: Performed By: #### 5 7021-8 #### RIRI Hawkins ([id number]) [facility] ([facility]) [address] [facility] [place] [address] Hemoglobin (Bld) [Mass/Vol] 14.1 g/dL Normal 12.0-16.0 [facility] Comment on above: Performed By: #### 5 7021-8 #### RIRI Hawkins ([id number]) [facility] ([facility]) [address] [facility] [place] [address] Immature granulocytes (Bld) [#/Vol] 0.02 x10*3/uL Normal 0.00-0.70 [facility] Comment on above: Performed By: #### 5 7021-8 #### RIRI Hawkins ([id number]) [facility] ([facility]) [address] [place] [address] Immature granulocytes/100 WBC (Bld) 0.3 % Normal 0.0-0.9 [facility] Comment on above: Result Comment: Evelina ture Granulocyte Count (IG) includes promyelocytes, myelocytes and metamyelocytes but does not include bands. Percent differential counts (%) should be interpreted in the context of the absolute cell counts (cells/UL). Performed By: #### 5 7021-8 #### RIRI Hawkins ([id number]) [facility] ([facility]) [address] [place] [address] Lymphocytes (Bld) [#/Vol] 2.58 x10*3/uL Normal 1.20-4.80 [facility] Comment on above: Performed By: #### 5 7021-8 #### RIRI Hawkins ([id number]) [facility] ([facility]) [address] [place] [address] Lymphocytes/100 WBC (Bld) 32.3 % Normal 13.0-44.0 [facility] Comment on above: Performed By: #### 5 7021-8 #### RIRI Hawkins ([id number]) [facility] ([facility]) [address] [facility] [place] [address] MCH (RBC) [Entitic mass] 29.7 pg Normal 26.0-34.0 [facility] Comment on above: Performed By: #### 5 7021-8 #### RIRI Hawkins ([id number]) [facility] ([facility]) [address] [place] [address] MCHC (RBC) [Mass/Vol] 32.6 g/dL Normal 32.0-36.0 [facility] Comment on above: Performed By: #### 5 7021-8 #### RIRI Hawkins ([id number]) [facility] ([facility]) [address] [place] [address] MCV (RBC) [Entitic vol] 91 fL Normal 80-100 [facility] Comment on above: Performed By: #### 5 7021-8 #### RIRI Hawkins ([id number]) [facility] ([facility]) [address] [place] [address] Monocytes (Bld) [#/Vol] 0.48 x10*3/uL Normal 0.10-1.00 [facility] Comment on above: Performed By: #### 5 7021-8 #### RIRI Hawkins ([id number]) [facility] ([facility]) [address] [place] [address] Monocytes/100 WBC (Bld) 6.0 % Normal 2.0-10.0 [facility] Comment on above: Performed By: #### 5 7021-8 #### RIRI Hawkins ([id number]) [facility] ([facility]) [address] [place] [address] Neutrophils (Bld) [#/Vol] 4.66 x10*3/uL Normal 1.20-7.70 [facility] Comment on above: Result Comment: Perc ent differential counts (%) should be interpreted in the context of the absolute cell counts (cells/uL). Performed By: #### 5 7021-8 #### RIRI Hawkins ([id number]) [facility] ([facility]) [address] [facility] [place] [address] Neutrophils/100 WBC (Bld) 58.1 % Normal 40.0-80.0 [facility] Comment on above: Performed By: #### 5 7021-8 #### RIRI Hawkins ([id number]) [facility] ([facility]) [address] [facility] [place] [address] Nucleated RBC/100 WBC (Bld) [Ratio] 0.0 /100 WBCs Normal 0.0-0.0 [facility] Comment on above: Performed By: #### 5 7021-8 #### RIRI Hawkins ([id number]) [facility] ([facility]) [address] [facility] [place] [address] Platelets (Bld) [#/Vol] 352 x10*3/uL Normal 150-450 [facility] Comment on above: Performed By: #### 5 7021-8 #### RIRI Hawkins ([id number]) [facility] ([facility]) [address] [facility] [place] [address] RBC (Bld) [#/Vol] 4.74 x10*6/uL Normal 4.00-5.20 [facility] Comment on above: Performed By: #### 5 7021-8 #### RIRI Hawkins ([id number]) [facility] ([facility]) [address] [place] [address] WBC (Bld) [#/Vol] 8.0 x10*3/uL Normal 4.4-11.3 [facility] Comment on above: Performed By: #### 5 7021-8 #### RIRI Hawkins ([id number]) [facility] ([facility]) [address] [place] [address] CT ABDOMEN PELVIS WO IV CONT RASTon 05-14-2023 CT ABDOMEN PELVIS WO IV CONTRAST STUDY: CT Abdomen and Pelvis without IV Contrast; 05/14/2023 at 5:41 PM. INDICATION: Pain. COMPARISON: US pelvis 03/09/2023; CT AP 03/08/2023. ACCESSION NUMBER(S): [id number] ORDERING CLINICIAN: MERCEDES AZUL TECHNIQUE: CT of the abdomen and pelvis was performed. Contiguous axial images were obtained at 3 mm slice thickness through the abdomen and pelvis. Coronal and sagittal reconstructions at 3 mm slice thickness were performed. No intravenous contrast was administered. Automated mA/kV exposure control was utilized and patient examination was performed in strict accordance with principles of ALARA. FINDINGS: Please note that the evaluation of vessels, lymph nodes and organs is limited without intravenous contrast. LOWER CHEST: No cardiomegaly. No pericardial effusion. Lung bases are clear. ABDOMEN: LIVER: No hepatomegaly. Smooth surface contour. Normal attenuation. BILE DUCTS: No intrahepatic or extrahepatic biliary ductal dilatation. GALLBLADDER: The gallbladder is surgically absent. STOMACH: No abnormalities identified. PANCREAS: No masses or ductal dilatation. SPLEEN: No splenomegaly or focal splenic lesion. ADRENAL GLANDS: No thickening or nodules. KIDNEYS AND URETERS: Kidneys are normal in size and location. On the right there are nonobstructing calculi in the lower pole collecting system 4 and 7 mm in diameter but there is no hydronephrosis on either side and both ureters appear normal. No calculi are identified on the left. PELVIS: BLADDER: No abnormalities identified. REPRODUCTIVE ORGANS: There has been a hysterectomy. The cystic mass seen in the right adnexa on the prior study is no longer present BOWEL: No abnormalities identified. The appendix is normal. VESSELS: No abnormalities identified. Abdominal aorta is normal in caliber. PERITONEUM/RETROPERITO NEUM/LYMPH NODES: No free fluid. No pneumoperitoneum. No lymphadenopathy. ABDOMINAL WALL: No abnormalities identified. SOFT TISSUES: No abnormalities identified. BONES: No acute fracture or aggressive osseous lesion. IMPRESSION: 2 nonobstructing calculi are seen in the lower pole collecting system on the right but no additional calculi are seen and there is no hydronephrosis on either side.. Signed by Jose C Paz MD [facility] CT Abdomen WO contraston 2 nonobstructing calculi are seen in the lower pole collecting system on the right but no additional calculi are seen and there is no hydronephrosis on either side.. Signed by Jose C Paz MD TELERADIOLOGY STUDY: CT Abdomen and Pelvis without IV Contrast; 05/14/2023 at 5:41 PM. INDICATION: Pain. COMPARISON: US pelvis 03/09/2023; CT AP 03/08/2023. ACCESSION NUMBER(S): [id number] ORDERING CLINICIAN: MERCEDES AZUL TECHNIQUE: CT of the abdomen and pelvis was performed. Contiguous axial images were obtained at 3 mm slice thickness through the abdomen and pelvis. Coronal and sagittal reconstructions at 3 mm slice thickness were performed. No intravenous contrast was administered. Automated mA/kV exposure control was utilized and patient examination was performed in strict accordance with principles of ALARA. FINDINGS: Please note that the evaluation of vessels, lymph nodes and organs is limited without intravenous contrast. LOWER CHEST: No cardiomegaly. No pericardial effusion. Lung bases are clear. ABDOMEN: LIVER: No hepatomegaly. Smooth surface contour. Normal attenuation. BILE DUCTS: No intrahepatic or extrahepatic biliary ductal dilatation. GALLBLADDER: The gallbladder is surgically absent. STOMACH: No abnormalities identified. PANCREAS: No masses or ductal dilatation. SPLEEN: No splenomegaly or focal splenic lesion. ADRENAL GLANDS: No thickening or nodules. KIDNEYS AND URETERS: Kidneys are normal in size and location. On the right there are nonobstructing calculi in the lower pole collecting system 4 and 7 mm in diameter but there is no hydronephrosis on either side and both ureters appear normal. No calculi are identified on the left. PELVIS: BLADDER: No abnormalities identified. REPRODUCTIVE ORGANS: There has been a hysterectomy. The cystic mass seen in the right adnexa on the prior study is no longer present BOWEL: No abnormalities identified. The appendix is normal. VESSELS: No abnormalities identified. Abdominal aorta is normal in caliber. PERITONEUM/RETROPERITO NEUM/LYMPH NODES: No free fluid. No pneumoperitoneum. No lymphadenopathy. ABDOMINAL WALL: No abnormalities identified. SOFT TISSUES: No abnormalities identified. BONES: No acute fracture or aggressive osseous lesion. TELERADIOLOGY Jose C Paz MD - 05/14/2023 STUDY: CT Abdomen and Pelvis without IV Contrast; 05/14/2023 at 5:41 PM. INDICATION: Pain. COMPARISON: US pelvis 03/09/2023; CT AP 03/08/2023. ACCESSION NUMBER(S): [id number] ORDERING CLINICIAN: MERCEDES AZUL TECHNIQUE: CT of the abdomen and pelvis was performed. Contiguous axial images were obtained at 3 mm slice thickness through the abdomen and pelvis. Coronal and sagittal reconstructions at 3 mm slice thickness were performed. No intravenous contrast was administered. Automated mA/kV exposure control was utilized and patient examination was performed in strict accordance with principles of ALARA. FINDINGS: Please note that the evaluation of vessels, lymph nodes and organs is limited without intravenous contrast. LOWER CHEST: No cardiomegaly. No pericardial effusion. Lung bases are clear. ABDOMEN: LIVER: No hepatomegaly. Smooth surface contour. Normal attenuation. BILE DUCTS: No intrahepatic or extrahepatic biliary ductal dilatation. GALLBLADDER: The gallbladder is surgically absent. STOMACH: No abnormalities identified. PANCREAS: No masses or ductal dilatation. SPLEEN: No splenomegaly or focal splenic lesion. ADRENAL GLANDS: No thickening or nodules. KIDNEYS AND URETERS: Kidneys are normal in size and location. On the right there are nonobstructing calculi in the lower pole collecting system 4 and 7 mm in diameter but there is no hydronephrosis on either side and both ureters appear normal. No calculi are identified on the left. PELVIS: BLADDER: No abnormalities identified. REPRODUCTIVE ORGANS: There has been a hysterectomy. The cystic mass seen in the right adnexa on the prior study is no longer present BOWEL: No abnormalities identified. The appendix is normal. VESSELS: No abnormalities identified. Abdominal aorta is normal in caliber. PERITONEUM/RETROPERITO NEUM/LYMPH NODES: No free fluid. No pneumoperitoneum. No lymphadenopathy. ABDOMINAL WALL: No abnormalities identified. SOFT TISSUES: No abnormalities identified. BONES: No acute fracture or aggressive osseous lesion. IMPRESSION: 2 nonobstructing calculi are seen in the lower pole collecting system on the right but no additional calculi are seen and there is no hydronephrosis on either side.. Signed by Jose C Paz MD [facility] Work Phone: Radiology Study observation (narrative) [facility] Work Phone: CT Abdomen WO contrastOrdere d By: Jose C Paz on 05-14-2023 [facility] Work Phone: Comprehensive metabolic 2000 panelon 05-14-2023 Albumin BCP dye [Mass/Vol] 4.2 g/dL 3.4 - 5.0 g/dL [facility] ALP [Catalytic activity/Vol] 57 U/L 33 - 110 U/L [facility] ALT With P-5'-P [Catalytic activity/Vol] 14 U/L 7 - 45 U/L [facility] Comment on above: Patients treated wit h Sulfasalazine may generate falsely decreased results for ALT. Anion gap [Moles/Vol] 12 mmol/L 10 - 2 0 mmol/L [facility] AST With P-5'-P [Catalytic activity/Vol] 16 U/L 9 - 39 U/L [facility] Bilirubin [Mass/Vol] 0.3 mg/dL 0.0 - 1 .2 mg/dL [facility] Calcium [Mass/Vol] 9.4 mg/dL 8.6 - 10. 3 mg/dL [facility] Chloride [Moles/Vol] 104 mmol/L 98 - 10 7 mmol/L [facility] CO2 [Moles/Vol] 28 mmol/L 21 - 32 mmol/L [facility] Creatinine [Mass/Vol] 1.17 mg/dL High 0.50 - 1.05 mg/dL [facility] GFR/1.73 sq M.predicted MDRD (S/P/Bld) [Vol rate/Area] 58 mL/min/{1.73_m2} Low - PINF [facility] Comment on above: Calculations of nura mated GFR are performed using the 2020 CKD-EPI Study Refit equation without the race variable for the IDMS-Traceable creatinine methods. https://jasn.asnjournals.org/content/early//ASN.31484 58950 Glucose [Mass/Vol] 93 mg/dL 74 - 99 mg/dL [facility] Interpretation and review of laboratory results Abnormal [facility] Potassium [Moles/Vol] 3.9 mmol/L 3.5 - 5.3 mmol/L [facility] Protein [Mass/Vol] 7.2 g/dL 6.4 - 8.2 g/dL [facility] Sodium [Moles/Vol] 140 mmol/L 136 - 145 mmol/L [facility] Urea nitrogen [Mass/Vol] 21 mg/dL 6 - 23 mg/dL [facility] Albumin BCP dye [Mass/Vol] 4.2 g/dL Normal 3.4-5.0 [facility] Comment on above: Performed By: #### 2 4323-8 #### RIRI Hawkins ([id number]) [facility] ([facility]) [address] [place] [address] ALP [Catalytic activity/Vol] 57 U/L Normal 33-110 [facility] Comment on above: Performed By: #### 2 4323-8 #### RIRI Hawkins ([id number]) [facility] ([facility]) [address] [place] [address] ALT With P-5'-P [Catalytic activity/Vol] 14 U/L Normal 7-45 [facility] Comment on above: Result Comment: Anjelica ents treated with Sulfasalazine may generate falsely decreased results for ALT. Performed By: #### 2 4323-8 #### RIRI Hawkins ([id number]) [facility] ([facility]) [address] [place] [address] Anion gap [Moles/Vol] 12 mmol/L Normal 10-20 [facility] Comment on above: Performed By: #### 2 4323-8 #### RIRI Hawkins ([id number]) [facility] ([facility]) [address] [place] [address] AST With P-5'-P [Catalytic activity/Vol] 16 U/L Normal 9-39 [facility] Comment on above: Performed By: #### 2 4323-8 #### RIRI Hawkins ([id number]) [facility] ([facility]) [address] [place] [address] Bilirubin [Mass/Vol] 0.3 mg/dL Normal 0.0-1.2 [facility] Comment on above: Performed By: #### 2 4323-8 #### RIRI Hawkins ([id number]) [facility] ([facility]) [address] [place] [address] Calcium [Mass/Vol] 9.4 mg/dL Normal 8.6-10.3 [facility] Comment on above: Performed By: #### 2 4323-8 #### RIRI Hawkins ([id number]) [facility] ([facility]) [address] [place] [address] Chloride [Moles/Vol] 104 mmol/L Normal 98-107 [facility] Comment on above: Performed By: #### 2 4323-8 #### RIRI Hawkins ([id number]) [facility] ([facility]) [address] [place] [address] CO2 [Moles/Vol] 28 mmol/L Normal 21-32 [facility] Comment on above: Performed By: #### 2 4323-8 #### RIRI Hawkins ([id number]) [facility] ([facility]) [address] [place] [address] Creatinine [Mass/Vol] 1.17 mg/dL High 0.50-1.05 [facility] Comment on above: Performed By: #### 2 4323-8 #### RIRI Hawkins ([id number]) [facility] ([facility]) [address] [place] [address] GFR/1.73 sq M.predicted MDRD (S/P/Bld) [Vol rate/Area] 58 mL/min/1.73m*2 Low >60 [facility] Comment on above: Result Comment: Calc ulations of estimated GFR are performed using the 2020 CKD-EPI Study Refit equation without the race variable for the IDMS-Traceable creatinine methods. https://jasn.asnjournals.org/content/early/ASN.54481 97274 Performed By: #### 2 4323-8 #### RIRI Hawkins ([id number]) [facility] ([facility]) [address] [place] [address] Glucose [Mass/Vol] 93 mg/dL Normal 74-99 [facility] Comment on above: Performed By: #### 2 4323-8 #### RIRI Hawkins ([id number]) [facility] ([facility]) [address] [place] [address] Potassium [Moles/Vol] 3.9 mmol/L Normal 3.5-5.3 [facility] Comment on above: Performed By: #### 2 4323-8 #### RIRI Hawkins ([id number]) [facility] ([facility]) [address] [place] [address] Protein [Mass/Vol] 7.2 g/dL Normal 6.4-8.2 [facility] Comment on above: Performed By: #### 2 4323-8 #### RIRI Hawkins ([id number]) [facility] ([facility]) [address] [place] [address] Sodium [Moles/Vol] 140 mmol/L Normal 136-145 [facility] Comment on above: Performed By: #### 2 4323-8 #### RIRI Hawkins ([id number]) [facility] ([facility]) [address] [place] [address] Urea nitrogen [Mass/Vol] 21 mg/dL Normal 6-23 [facility] Comment on above: Performed By: #### 2 4323-8 #### RIRI Hawkins ([id number]) [facility] ([facility]) [address] [place] [address] FLUAV and FLUBV RNA ANDRY+prob e Nom (Unsp spec)on 05-14-2023 FLUAV RNA ANDRY+probe Ql (Resp) Not detected Not Detected [facility] FLUBV RNA ANDRY+probe Ql (Resp) Not detected Not Detected [facility] This assay is an in vitro diagnostic multiplex nucleic acid amplification test for the detection and discrimination of Influenza A & B from nasopharyngeal specimens, and has been validated for use at [facility]. Negative results do not preclude Influenza A/B infections, and should not be used as the sole basis for diagnosis, treatment, or other management decisions. If Influenza A/B and RSV PCR results are negative, testing for Parainfluenza virus, Adenovirus and Metapneumovirus is routinely performed for [facility] pediatric oncology and intensive care inpatients, and is available on other patients by placing an add-on request. [facility] FLUAV RNA ANDRY+probe Ql (Resp) Not detected Normal Not Detected [facility] Comment on above: Order Comment: This assay is an in vitro diagnostic multiplex nucleic acid amplification test for the detection and discrimination of Influenza A & B from nasopharyngeal specimens, and has been validated for use at [facility]. Negative results do not preclude Influenza A/B infections, and should not be used as the sole basis for diagnosis, treatment, or other management decisions. If Influenza A/B and RSV PCR results are negative, testing for Parainfluenza virus, Adenovirus and Metapneumovirus is routinely performed for [facility] pediatric oncology and intensive care inpatients, and is available on other patients by placing an add-on request. Performed By: #### 4 8509-4 #### RIRI Hawkins ([id number]) [facility] ([facility]) [address] [place] [address] FLUBV RNA ANDRY+probe Ql (Resp) Not detected Normal Not Detected [facility] Comment on above: Order Comment: This assay is an in vitro diagnostic multiplex nucleic acid amplification test for the detection and discrimination of Influenza A & B from nasopharyngeal specimens, and has been validated for use at [facility]. Negative results do not preclude Influenza A/B infections, and should not be used as the sole basis for diagnosis, treatment, or other management decisions. If Influenza A/B and RSV PCR results are negative, testing for Parainfluenza virus, Adenovirus and Metapneumovirus is routinely performed for [facility] pediatric oncology and intensive care inpatients, and is available on other patients by placing an add-on request. Performed By: #### 4 8509-4 #### RIRI Hawkins ([id number]) [facility] ([facility]) [address] [place] [address] Lactateon 05-14-2023 Lactate [Moles/Vol] 0.9 mmol/L 0.4 - 2. 0 mmol/L [facility] Lactate [Moles/Vol] 0.9 mmol/L Normal 0.4-2.0 [facility] Comment on above: Order Comment: Venip uncture immediately after or during the administration of Metamizole may lead to falsely low results. Testing should be performed immediately prior to Metamizole dosing. Performed By: #### 2 524-7 #### RIRI Hawkins ([id number]) [facility] ([facility]) [address] [place] [address] Lactate [Moles/Vol]on 2022 Interpretation and review of laboratory results Normal [facility] Venipuncture immediately after or during the administration of Metamizole may lead to falsely low results. Testing should be performed immediately prior to Metamizole dosing. [facility] Lipaseon 05-14-2023 Lipase [Catalytic activity/Vol] 42 U/L 9 - 82 U/L [facility] Lipase [Catalytic activity/V ol]on 05-14-2023 Interpretation and review of laboratory results Normal [facility] Venipuncture immediately after or during the administration of Metamizole may lead to falsely low results. Testing should be performed immediately prior to Metamizole dosing. [facility] No Panel Informationon 05-14 Interpretation and review of laboratory results Normal [facility] RSV PCRon 05-14-2023 RSV RNA ANDRY+probe Ql (Resp) Not detected Not Detected [facility] RSV RNA ANDRY+probe Ql (Resp)o n 05-14-2023 This assay is an FDA-cleared, in vitro diagnostic nucleic acid amplification test for the detection of RSV from nasopharyngeal specimens, and has been validated for use at [facility]. Negative results do not preclude RSV infections, and should not be used as the sole basis for diagnosis, treatment, or other management decisions. If Influenza A/B and RSV PCR results are negative, testing for Parainfluenza virus, Adenovirus and Metapneumovirus is routinely performed for pediatric oncology and intensive care inpatients at [facility], and is available on other patients by placing an add-on request. [facility] Respiratory syncytial virus RNAon 05-14-2023 RSV RNA ANDRY+probe Ql (Resp) Not detected Normal Not Detected [facility] Comment on above: Order Comment: This assay is an FDA-cleared, in vitro diagnostic nucleic acid amplification test for the detection of RSV from nasopharyngeal specimens, and has been validated for use at [facility]. Negative results do not preclude RSV infections, and should not be used as the sole basis for diagnosis, treatment, or other management decisions. If Influenza A/B and RSV PCR results are negative, testing for Parainfluenza virus, Adenovirus and Metapneumovirus is routinely performed for pediatric oncology and intensive care inpatients at [facility], and is available on other patients by placing an add-on request. Performed By: #### 9 2131-2 #### RIRI Hawkins ([id number]) [facility] ([facility]) [address] [place] [address] SARS coronavirus 2 RNAon SARS-CoV-2 (COVID-19) RNA ANDRY+probe Ql (Resp) Not detected Normal Not Detected [facility] Comment on above: Order Comment: This assay has received FDA Emergency Use Authorization (EUA) and is only authorized for the duration of time that circumstances exist to justify the authorization of the emergency use of in vitro diagnostic tests for the detection of SARS-CoV-2 virus and/or diagnosis of COVID-19 infection under section 564(b)(1) of the Act, 21 U.S.C. 360bbb-3(b)(1). This assay is an in vitro diagnostic nucleic acid amplification test for the qualitative detection of SARS-CoV-2 from nasopharyngeal specimens and has been validated for use at [facility]. Negative results do not preclude COVID-19 infections and should not be used as the sole basis for diagnosis, treatment, or other management decisions. Performed By: #### 9 4500-6 #### RIRI Hawkins ([id number]) [facility] ([facility]) [address] [place] [address] SARS-CoV-2 (COVID-19) RNA NA A+probe Ql (Resp)on 05-14-2023 This assay has received FDA Emergency Use Authorization (EUA) and is only authorized for the duration of time that circumstances exist to justify the authorization of the emergency use of in vitro diagnostic tests for the detection of SARS-CoV-2 virus and/or diagnosis of COVID-19 infection under section 564(b)(1) of the Act, 21 U.S.C. 360bbb-3(b)(1). This assay is an in vitro diagnostic nucleic acid amplification test for the qualitative detection of SARS-CoV-2 from nasopharyngeal specimens and has been validated for use at [facility]. Negative results do not preclude COVID-19 infections and should not be used as the sole basis for diagnosis, treatment, or other management decisions. [facility] Sars-CoV-2 PCR, Symptomatico n 05-14-2023 SARS-CoV-2 (COVID-19) RNA ANDRY+probe Ql (Resp) Not detected Not Detected [facility] Triacylglycerol lipaseon Lipase [Catalytic activity/Vol] 42 U/L Normal 9-82 [facility] Comment on above: Order Comment: Venip uncture immediately after or during the administration of Metamizole may lead to falsely low results. Testing should be performed immediately prior to Metamizole dosing. Performed By: #### 3 040-3 #### RIRI Hawkins ([id number]) [facility] ([facility]) [address] [place] [address] Tropinin I.cardiac panel Hig h sensitivity methodon 05-14-2023 Interpretation and review of laboratory results Normal [facility] Less than 99th percentile of normal range cutoff- Female and children under 18 years old <14 ng/L; Male <21 ng/L: Negative Repeat testing should be performed if clinically indicated. Female and children under 18 years old 14-50 ng/L; Male 21-50 ng/L: Consistent with possible cardiac damage and possible increased clinical risk. Serial measurements may help to assess extent of myocardial damage. >50 ng/L: Consistent with cardiac damage, increased clinical risk and myocardial infarction. Serial measurements may help assess extent of myocardial damage. NOTE: Children less than 1 year old may have higher baseline troponin levels and results should be interpreted in conjunction with the overall clinical context. NOTE: Troponin I testing is performed using a different testing methodology at [facility] than at other [facility]. Direct result comparisons should only be made within the same method. [facility] Troponin I, High Sensitivity on 05-14-2023 Tropinin I.cardiac panel High sensitivity method 4 ng/L 0 - 13 ng/L [facility] Troponin I.cardiac panelon 1 07-14-2022 Tropinin I.cardiac panel High sensitivity method 4 ng/L Normal 0-13 [facility] Comment on above: Order Comment: Less than 99th percentile of normal range cutoff- Female and children under 18 years old <14 ng/L; Male <21 ng/L: Negative Repeat testing should be performed if clinically indicated. Female and children under 18 years old 14-50 ng/L; Male 21-50 ng/L: Consistent with possible cardiac damage and possible increased clinical risk. Serial measurements may help to assess extent of myocardial damage. >50 ng/L: Consistent with cardiac damage, increased clinical risk and myocardial infarction. Serial measurements may help assess extent of myocardial damage. NOTE: Children less than 1 year old may have higher baseline troponin levels and results should be interpreted in conjunction with the overall clinical context. NOTE: Troponin I testing is performed using a different testing methodology at [facility] than at other [facility]. Direct result comparisons should only be made within the same method. Performed By: #### 8 9577-1 #### RIRI Hawkins ([id number]) [facility] ([facility]) [address] [place] [address] Urinalysis complete panel (U )on 05-14-2023 Appearance (U) Hazy Abnormal Clear [facility] Bilirubin (U) [Mass/Vol] Negative NEGATIVE [facility] Color (U) Yellow Straw, Yellow [facility] Glucose Auto test strip (U) [Mass/Vol] Negative NEGATIVE mg/dL [facility] Interpretation and review of laboratory results Abnormal [facility] Ketones (U) [Mass/Vol] Negative NEGAT MARIBELL mg/dL [facility] Leukocyte esterase Auto test strip Ql (U) Negative NEGATIVE [facility] Nitrite Auto test strip Ql (U) Negative NEGATIVE [facility] pH (U) 7.0 [pH] 5.0, 5.5, 6.0, 6.5, 7.0, 7.5, 8.0 [facility] Protein (U) [Mass/Vol] Negative NEGAT MARIBELL mg/dL [facility] RBC (U) [#/Vol] Negative NEGATIVE [facility] Specific gravity (U) [Rel density] 1.017 1.005 - 1.035 [facility] Urobilinogen (U) [Mass/Vol] mg/dL NINF - 2.0 mg/dL [facility] Appearance (U) Hazy Normal Clear [facility] Comment on above: Performed By: #### 2 4356-8 ####RIRI Hawkins ([id number])[facility] ([facility])[address] [place] [address] Bilirubin (U) [Mass/Vol] Negative Normal NEGATIVE [facility] Comment on above: Performed By: #### 2 4356-8 ####RIRI Hawkins ([id number])[facility] ([facility])[address] [place] [address] Color (U) Yellow Normal Straw, Yellow [facility] Comment on above: Performed By: #### 2 4356-8 ####RIRI Hawkins ([id number])[facility] ([facility])[address] [place] [address] Glucose Auto test strip (U) [Mass/Vol] Negative Normal NEGATIVE [facility] Comment on above: Performed By: #### 2 4356-8 ####RIRI Hawkins ([id number])[facility] ([facility])[address] [place] [address] Ketones (U) [Mass/Vol] Negative Normal NEGATIVE Un [facility] Comment on above: Performed By: #### 2 4356-8 ####RIRI Hawkins ([id number])[facility] ([facility])[address] [place] [address] Leukocyte esterase Auto test strip Ql (U) Negative Normal NEGATIVE [facility] Comment on above: Performed By: #### 2 4356-8 ####RIRI Hawkins ([id number])[facility] ([facility])[address] [place] [address] Nitrite Auto test strip Ql (U) Negative Normal NEGATIVE [facility] Comment on above: Performed By: #### 2 4356-8 ####RIRI Hawkins ([id number])[facility] ([facility])[address] [place] [address] pH (U) 7.0 [pH] Normal 5.0, 5.5, 6.0, 6.5, 7.0, 7.5, 8.0 [facility] Comment on above: Performed By: #### 2 4356-8 ####RIRI Hawkins ([id number])[facility] ([facility])[address] [place] [address] Protein (U) [Mass/Vol] Negative Normal NEGATIVE Un [facility] Comment on above: Performed By: #### 2 4356-8 ####RIRI Hawkins ([id number])[facility] ([facility])[address] [place] [address] RBC (U) [#/Vol] Negative Normal NEGATIVE [facility] Comment on above: Performed By: #### 2 4356-8 ####RIRI Hawkins ([id number])[facility] ([facility])[address] [place] [address] Specific gravity (U) [Rel density] 1.017 Normal 1.005-1.035 [facility] Comment on above: Performed By: #### 2 4356-8 ####RIRI Hawkins ([id number])[facility] ([facility])[address] [place] [address] Urobilinogen (U) [Mass/Vol] mg/dL Normal <2.0 [facility] Comment on above: Performed By: #### 2 4356-8 ####RIRI Hawkins ([id number])[facility] ([facility])[address] [place] [address] XR CHEST 1 VIEWon 05-14-2023 XR CHEST 1 VIEW STUDY: Chest Radiograph; 05/14/2023 at 5:17 PM INDICATION: Chest pain. COMPARISON: 03/11/23 XR Chest ACCESSION NUMBER(S): [id number] ORDERING CLINICIAN: MERCEDES AZUL TECHNIQUE: Frontal chest was obtained at 17:17 hours. FINDINGS: CARDIOMEDIASTINAL SILHOUETTE: Cardiomediastinal silhouette is normal in size and configuration. LUNGS: Lungs are clear. ABDOMEN: No remarkable upper abdominal findings. BONES: No acute osseous changes. IMPRESSION: No regions of airspace consolidation. Signed by Riri Zavala MD [facility] XR Chest Single viewon 05-14 No regions of airspa ce consolidation. Signed by Riri Zavala MD TELERADIOLOGY STUDY: Chest Radiograph; 05/14/2023 at 5:17 PM INDICATION: Chest pain. COMPARISON: 03/11/23 XR Chest ACCESSION NUMBER(S): [id number] ORDERING CLINICIAN: MERCEDES AZUL TECHNIQUE: Frontal chest was obtained at 17:17 hours. FINDINGS: CARDIOMEDIASTINAL SILHOUETTE: Cardiomediastinal silhouette is normal in size and configuration. LUNGS: Lungs are clear. ABDOMEN: No remarkable upper abdominal findings. BONES: No acute osseous changes. TELERADIOLOGY Riri Zavala MD - 05/14/2023 STUDY: Chest Radiograph; 05/14/2023 at 5:17 PM INDICATION: Chest pain. COMPARISON: 03/11/23 XR Chest ACCESSION NUMBER(S): [id number] ORDERING CLINICIAN: MERCEDES AZUL TECHNIQUE: Frontal chest was obtained at 17:17 hours. FINDINGS: CARDIOMEDIASTINAL SILHOUETTE: Cardiomediastinal silhouette is normal in size and configuration. LUNGS: Lungs are clear. ABDOMEN: No remarkable upper abdominal findings. BONES: No acute osseous changes. IMPRESSION: No regions of airspace consolidation. Signed by Riri Zavala MD [facility] Work Phone: Radiology Study observation (narrative) [facility] Work Phone: XR Chest Single viewOrdered By: Riri Zavala on 05-14-2023 [facility] Work Phone: Surgical pathology studyon 1 Surgical pathology study Pathology report.total SEE COMMENT Surgical Pathology Case: [id number] Authorizing Provider: Janny Bai MD Collected: 04/24/2023 1028 Ordering Location: [facility] Received: 04/25/2023 1155 Center Pathologist: Radha Sheirdan MD Specimens: A) - DUODENAL BULB BIOPSY, DUODENUM, DUODENAL BULB, SECOND PART, COLD FORCEP B) - STOMACH ANTRUM BIOPSY, STOMACH, BODY, ANTRUM, COLD FORCEP BIOPSY C) - ESOPHAGOGASTRIC JUNCTION BIOPSY, ESOPHAGUS, G-E JUNCTION, IRREGULAR ZLINE, COLD FORCEP BIOPSY D) - ESOPHAGUS MID BIOPSY, ESOPHAGUS, MIDDLE THIRD, COLD FORCEP BIOPSY E) - COLON - RANDOM BIOPSY, RANDOM BIOPSY, COLD FORCEP BIOPSY F) - COLON - CECUM BIOPSY, COLON, CECUM, POLYP, COLD SNARE POLYPECTOMY Path report.final diagnosis SEE COMMENT A. DUODENAL BULB AND SECOND PART DUODENUM, BIOPSIES: - NO SIGNIFICANT HISTOPATHOLOGIC CHANGES; NEGATIVE FOR DUODENITIS. - SPRUE/SPRUE-LIKE CHANGES NOT PRESENT. - PARASITES NOT IDENTIFIED. B. ANTRUM AND BODY (STOMACH), BIOPSIES: - NO SIGNIFICANT HISTOPATHOLOGIC CHANGES; NEGATIVE FOR GASTRITIS AND DYSPLASIA/MALIGNANCY. - H. PYLORI MICROORGANISMS NOT IDENTIFIED. - NO EVIDENCE OF INTESTINAL METAPLASIA. C. GE JUNCTION, BIOPSIES: - BENIGN CARDIA-TYPE MUCOSA WITH MILD CHRONIC INFLAMMATION; NEGATIVE FOR DYSPLASIA. - NONKERATINIZED SQUAMOUS (ESOPHAGEAL) EPITHELIUM AND SPECIALIZED COLUMNAR (GOBLET CELL METAPLASTIC) EPITHELIUM NOT PRESENT IN SUBMITTED MATERIAL. D. MID ESOPHAGUS, BIOPSIES: - UNREMARKABLE NONKERATINIZED SQUAMOUS (ESOPHAGEAL) EPITHELIUM; NEGATIVE FOR DYSPLASIA. - NO EVIDENCE OF EOSINOPHILIC ESOPHAGITIS IN SUBMITTED MATERIAL. - GLANDULAR/SPECIALIZED COLUMNAR (GOBLET CELL METAPLASTIC) EPITHELIUM NOT PRESENT. E. COLON, RANDOM BIOPSIES: - NO SIGNIFICANT HISTOPATHOLOGIC CHANGES; NEGATIVE FOR COLITIS AND DYSPLASIA. - GRANULOMAS NOT PRESENT IN SUBMITTED MATERIAL. F. POLYP (CECUM), EXCISIONAL BIOPSIES: - ADENOMATOUS POLYP (TUBULAR ADENOMA). Laboratory comment By the signature on this report, the individual or group listed as making the Final Interpretation/Diagnos is certifies that they have reviewed this case. Path report.relevant Hx SEE COMMENT Screening for colorectal malignant neoplasm, this is the patient's first colonoscopy, chronic diarrhea-starts prio to cholecystectomy, dyphagia, gastro-esophageal reflux disease A: diarrhea, rule out celiac sprue B: gastritis, rule out helicobacter pylori C: rule out haque's D: rule out EoE E: rule out microscopic colitis Path report.gross observation SEE COMMENT A: Received in formalin, labeled with the patient's name and hospital number and duodenum-duodenal bulb, second part, cold forceps , are multiple fragments of shaw, soft tissue aggregating to 0.5 x 0.3 x 0.2 cm. The specimen is submitted in toto in one cassette. MKM B: Received in formalin, labeled with the patient's name and hospital number and stomach body, antrum, cold forceps , are multiple fragments of shaw, soft tissue aggregating to 0.4 x 0.3 x 0.2 cm. The specimen is submitted in toto in one cassette. MKM C: Received in formalin, labeled with the patient's name and hospital number and esophagus-GE junction, irregular Z-line, cold forceps , are multiple fragments of shaw, soft tissue aggregating to 0.4 x 0.3 x 0.2 cm. The specimen is submitted in toto in one cassette. MKM D: Received in formalin, labeled with the patient's name and hospital number and esophagus-middle third, cold forceps , are multiple fragments of shaw, soft tissue aggregating to 0.5 x 0.3 x 0.2 cm. The specimen is submitted in toto in one cassette. MKM E: Received in formalin, labeled with the patient's name and hospital number and random biopsy, cold forceps , are multiple fragments of shaw, soft tissue aggregating to 0.5 x 0.3 x 0.2 cm. The specimen is submitted in toto in one cassette. MKM F: Received in formalin, labeled with the patient's name and hospital number and colon-cecum, polyp, cold snare , are 2 fragments of shaw, soft tissue aggregating to 0.4 x 0.3 x 0.2 cm. The specimen is submitted in toto in one cassette. [facility] Path report.microscopic observation Microscopic slides examined. [facility] HIV 1/2 ANTIGEN/ANTIBODY SCR EEN WITH REFLEX TO CONFIRMATIONon 03-26-2023 HIV 1+2 Ab Qn (S) Non-Reactive See Below [facility] Work Phone: Comment on above: SOURCE: Reference Ra nge: NONREACTIVE HIV Ag/Ab screen is performed using the [employer] HIV Ag/Ab Combo assay which detects the presence of HIV p24 antigen as well as antibodies to HIV-1 (Group M and O) and HIV-2..No laboratory evidence of HIV infection. If acute HIV infection is suspected, consider testing for HIV RNA by PCR (viral load). Hemoglobin A1Con 03-26-2023 Glucose [Mass/Vol] 108 mg/dL [facility] Work Phone: HbA1c (Bld) [Mass fraction] 5.4 % [facility] Work Phone: Comment on above: Diagnosis of Diabete s-Adults Non-Diabetic: < or = 5.6% Increased risk for developing diabetes: 5.7-6.4% Diagnostic of diabetes: > or = 6.5%. Monitoring of Diabetes Age (y) Therapeutic Goal (%) Adults: >18 <7.0 Pediatrics: 13-18 <7.5 7-12 <8.0 0- 6 7.5-8.5 [place] [employer]. Diabetes Care 33(S1), Jul 2009. Hepatitis C Antibody Teston 03-26-2023 Hepatitis C Antibody Test Non-Reactive See Below [facility] Work Phone: Comment on above: SOURCE: Reference Ra nge: NONREACTIVE Results from patients taking biotin supplements or receiving high-dose biotin therapy should be interpreted with caution due to possible interference with this test. Providers may contact their local laboratory for further information. Lipid Panelon 03-26-2023 Cholesterol [Mass/Vol] 178 mg/dL 0 - 199 [facility] Work Phone: Comment on above: SOURCE: . AGE DESIRA BLE BORDERLINE HIGH HIGH 0-19 Y 0 - 169 170 - 199 >/= 200 20-24 Y 0 - 189 190 - 224 >/= 225 >24 Y 0 - 199 200 - 239 >/= 240 All ranges are based on fasting samples. Specific therapeutic targets will vary based on patient-specific cardiac risk.. Pediatric guidelines reference:Pediatrics 2011, 128(S5). Adult guidelines reference: NCEP ATPIII Guidelines, NANCY 2001, 258:2486-97. Venipuncture immediately after or during the administration of Metamizole may lead to falsely low results. Testing should be performed immediately prior to Metamizole dosing. Cholesterol in HDL [Mass/Vol] 56.2 mg/dL [facility] Work Phone: Comment on above: . AGE VERY LOW LOW N ORMAL HIGH 0-19 Y < 35 < 40 40-45 ---- 20-24 Y ---- < 40 >45 ---- >24 Y ---- < 40 40-60 >60. Cholesterol in LDL [Mass/Vol] 103 mg/dL above high threshold 0 - 99 [facility] Work Phone: Comment on above: . NEAR BORD AGE BECKY RABLE OPTIMAL HIGH HIGH VERY HIGH 0-19 Y 0 - 109 --- 110-129 >/= 130 ---- 20-24 Y 0 - 119 --- 120-159 >/= 160 ---- >24 Y 0 - 99 100-129 130-159 160-189 >/=190. Cholesterol.total/Chol esterol in HDL [Mass ratio] 3.2 {ratio} [facility] Work Phone: Comment on above: REF VALUESDESIRABLE < 3.4HIGH RISK > 5.0 Triglyceride [Mass/Vol] 93 mg/dL 0 - 149 [facility] Work Phone: Comment on above: . AGE DESIRABLE BORD LILIA HIGH HIGH VERY HIGH 0 D-90 D 19 - 174 ---- ---- ----91 D- 9 Y 0 - 74 75 - 99 >/= 100 ---- 10-19 Y 0 - 89 90 - 129 >/= 130 ---- 20-24 Y 0 - 114 115 - 149 >/= 150 ---- >24 Y 0 - 149 150 - 199 200- 499 >/= 500. Venipuncture immediately after or during the administration of Metamizole may lead to falsely low results. Testing should be performed immediately prior to Metamizole dosing. Lipid Panel 19 mg/dL 0 - 40 [facility] Work Phone: Vitamin D 25-Hydroxyon 03-26 25-hydroxyvitamin D3 [Mass/Vol] 57 ng/mL [facility] Work Phone: Comment on above: SOURCE: .DEFICIENCY: < 20 NG/MLINSUFFICIENCY: 20-29 NG/MLSUFFICIENCY: 30-100 NG/MLTHIS ASSAY ACCURATELY QUANTIFIES THE SUM OFVITAMIN D3, 25-HYDROXY AND VIT D2,25-HYDROXY. BASIC METABOLIC PANELon 03-02 Anion gap [Moles/Vol] 10 mmol/L Normal 10 - 20 [facility] Comment on above: Performed By: #### B MP #### [facility] [address] [place] [address] Calcium [Mass/Vol] 9.0 mg/dL Normal 8.6 - 10.3 [facility] Comment on above: Performed By: #### B MP #### [facility] [address] [place] [address] Chloride [Moles/Vol] 101 mmol/L Normal 98 - 107 [facility] Comment on above: Performed By: #### B MP #### [facility] [address] [place] [address] Creatinine [Mass/Vol] 1.06 mg/dL High 0.50 - 1.05 [facility] Comment on above: Performed By: #### B MP #### [facility] [address] [place] [address] GFR/1.73 sq M.predicted among non-blacks MDRD (S/P/Bld) [Vol rate/Area] 65 mL/min/{1.73_m2} Normal >90 [facility] Comment on above: Result Comment: CALC ULATIONS OF ESTIMATED GFR ARE PERFORMED USING THE 2020 CKD-EPI STUDY REFIT EQUATION WITHOUT THE RACE VARIABLE FOR THE IDMS-TRACEABLE CREATININE METHODS. https://jasn.asnjournals.org/content//ASN.03248 25237 Performed By: #### B MP #### [facility] [address] [place] [address] Glucose [Mass/Vol] 90 mg/dL Normal 74 - 99 [facility] Comment on above: Performed By: #### B MP #### [facility] [address] [place] [address] HCO3 (Bld) [Moles/Vol] 31 mmol/L Normal 21 - 32 [facility] Comment on above: Performed By: #### B MP #### [facility] [address] [place] [address] Potassium [Moles/Vol] 3.8 mmol/L Normal 3.5 - 5.3 [facility] Comment on above: Performed By: #### B MP #### [facility] [address] [place] [address] Sodium [Moles/Vol] 138 mmol/L Normal 136 - 145 [facility] Comment on above: Performed By: #### B MP #### [facility] [address] [place] [address] Urea nitrogen [Mass/Vol] 11 mg/dL Normal 6 - 23 [facility] Comment on above: Performed By: #### B MP #### [facility] [address] [place] [address] ANION GAP Canceled Normal [facility] Comment on above: Order Comment: TEST BASIC METABOLIC PANEL WAS CANCELLED, 03/14/2023 10:39 Performed By: #### T RP #### [facility] [address] [place] [address] BICARBONATE Canceled Normal [facility] Comment on above: Order Comment: TEST BASIC METABOLIC PANEL WAS CANCELLED, 03/14/2023 10:39 Performed By: #### T RPHS #### [facility] [address] [place] [address] CALCIUM Canceled Normal [facility] Comment on above: Order Comment: TEST BASIC METABOLIC PANEL WAS CANCELLED, 03/14/2023 10:39 Performed By: #### T RPHS #### [facility] [address] [place] [address] CHLORIDE Canceled Normal [facility] Comment on above: Order Comment: TEST BASIC METABOLIC PANEL WAS CANCELLED, 03/14/2023 10:39 Performed By: #### T RPHS #### [facility] [address] [place] [address] CREATININE Canceled Normal [facility] Comment on above: Order Comment: TEST BASIC METABOLIC PANEL WAS CANCELLED, 03/14/2023 10:39 Performed By: #### T RPHS #### [facility] [address] [place] [address] eGFR FEMALE Canceled Normal [facility] Comment on above: Order Comment: TEST BASIC METABOLIC PANEL WAS CANCELLED, 03/14/2023 10:39 Result Comment: CALC ULATIONS OF ESTIMATED GFR ARE PERFORMED USING THE 2020 CKD-EPI STUDY REFIT EQUATION WITHOUT THE RACE VARIABLE FOR THE IDMS-TRACEABLE CREATININE METHODS. https://jasn.asnjournals.org/content/early/ASN.32599 78463 Performed By: #### T RPHS #### [facility] [address] [place] [address] eGFR MALE Canceled Normal [facility] Comment on above: Order Comment: TEST BASIC METABOLIC PANEL WAS CANCELLED, 03/14/2023 10:39 Result Comment: CALC ULATIONS OF ESTIMATED GFR ARE PERFORMED USING THE 2020 CKD-EPI STUDY REFIT EQUATION WITHOUT THE RACE VARIABLE FOR THE IDMS-TRACEABLE CREATININE METHODS. https://jasn.asnjournals.org/content/early/ASN.89891 50720 Performed By: #### T RPHS #### [facility] [address] [place] [address] GLUCOSE Canceled Normal [facility] Comment on above: Order Comment: TEST BASIC METABOLIC PANEL WAS CANCELLED, 03/14/2023 10:39 Performed By: #### T RPHS #### [facility] [address] [place] [address] POTASSIUM Canceled Normal [facility] Comment on above: Order Comment: TEST BASIC METABOLIC PANEL WAS CANCELLED, 03/14/2023 10:39 Performed By: #### T RPHS #### [facility] [address] [place] [address] SODIUM Canceled Normal [facility] Comment on above: Order Comment: TEST BASIC METABOLIC PANEL WAS CANCELLED, 03/14/2023 10:39 Performed By: #### T RPHS #### [facility] [address] [place] [address] UREA NITROGEN Canceled Normal [facility] Comment on above: Order Comment: TEST BASIC METABOLIC PANEL WAS CANCELLED, 03/14/2023 10:39 Performed By: #### T RPHS #### [facility] [address] [place] [address] Clinical Event Note-Patient called backon 03-14-2023 Clinical Event Note-Patient called back Clinical Event: Clinical Event Note: TopicPatient called back Details Patient called concerning blood pressure medication. She reports she was out of her previously prescribed metoprolol and Lasix. She reports she has not been unable to fill these medications due to loss of her PCP. In review of her chart her blood pressure did not have good control with metoprolol, so metoprolol which changed to Coreg 6.25 mg twice daily, and called in. The Lasix will be deferred to PCP Electronic Signatures: Konrad Delgado () (Signed 14-Mar-2023 17:39) Authored: Clinical Event Note Last Updated: 14-Mar-2023 17:39 by Konrad Delgado () Normal [facility] - Chemistry and C hemistry - challengeon 03-14-2023 Anion gap [Moles/Vol] 10 mmol/L 10 - 20 [facility] Work Phone: Calcium [Mass/Vol] 9.0 mg/dL 8.6 - 10.3 [facility] Work Phone: Chloride [Moles/Vol] 101 mmol/L 98 - 107 [facility] Work Phone: CO2 [Moles/Vol] 31 mmol/L 21 - 32 [facility] Work Phone: Creatinine [Mass/Vol] 1.06 mg/dL above high threshold See Below [facility] Work Phone: Comment on above: Reference Range: 0.5 0 - 1.05 Glucose [Mass/Vol] 90 mg/dL 74 - 99 [facility] Work Phone: Potassium [Moles/Vol] 3.8 mmol/L 3.5 - 5.3 [facility] Work Phone: Sodium [Moles/Vol] 138 mmol/L 136 - 145 [facility] Work Phone: Urea nitrogen [Mass/Vol] 11 mg/dL 6 - 23 [facility] Work Phone: No Panel Informationon 03-14 65 {mL/min/1.73m2} >90 [facility] Work Phone: Comment on above: CALCULATIONS OF NURA MATED GFR ARE PERFORMED USING THE 2020 CKD-EPI STUDY REFIT EQUATION WITHOUT THE RACE VARIABLE FOR THE IDMS-TRACEABLE CREATININE METHODS.https://jasn.asnjournals.org/content//A SN.[email or web address] CBCon 03-13-2023 Erythrocyte distribution width (RBC) [Ratio] 12.5 % Normal 11.5 - 14.5 [facility] Comment on above: Performed By: #### C BC #### [facility] [address] [place] [address] Hematocrit (Bld) [Volume fraction] 39.3 % Normal 36.0 - 46.0 [facility] Comment on above: Performed By: #### C BC #### [facility] [address] [place] [address] Hemoglobin (Bld) [Mass/Vol] 12.9 g/dL Normal 12.0 - 16.0 [facility] Comment on above: Performed By: #### C BC #### [facility] [address] [place] [address] MCHC (RBC) [Mass/Vol] 32.8 g/dL Normal 32.0 - 36.0 [facility] Comment on above: Performed By: #### C BC #### [facility] [address] [place] [address] MCV (RBC) [Entitic vol] 90 fL Normal 80 - 100 [facility] Comment on above: Performed By: #### C BC #### [facility] [address] [place] [address] Platelets (Bld) [#/Vol] 304 10*3/uL Normal 150 - 450 [facility] Comment on above: Performed By: #### C BC #### [facility] [address] [place] [address] RBC 4.35 x10E12/L Normal 4.00 - 5.20 [facility] Comment on above: Performed By: #### C BC #### [facility] [address] [place] [address] WBC (Bld) [#/Vol] 7.8 10*3/uL Normal 4.4 - 11.3 [facility] Comment on above: Performed By: #### C BC #### [facility] [address] [place] [address] Daily Progress Note-Medicine on 03-13-2023 Daily Progress Note-Medicine Service: Medicine Subjective Data: DAMARI RIOS is a 47 year old Female who is Hospital Day # 6. Overnight Events: Patient had an uneventful night. Objective Data: Objective Information: T PRBPMAPSpO2 [id number]/9096% Date/Time03/13 5: 5: 5: 5: 5:20 Range(35.6C - 36.4C ) (55 - 83 ) (16 - 18 ) (152 - 174 )/ (89 - 109 ) (96% - 97% ) Pain reported at 03/13 10:14: 7 = Severe Physical Exam by System: Constitutional: Patient is alert. NAD. Eyes: Clear sclera. Respiratory/Thorax: CTAB. Cardiovascular: RRR. Gastrointestinal: Soft. Mild, diffuse abdominal tenderness with no guarding. Bowel sounds present. Extremities: No pitting edema bilat ankles. Psychological: Cooperative. Recent Lab Results: Results: CBC: 03/13/2023 06:10 \ Hgb / \ 12.9 / WBC Plt 7.8 304 / Hct \ / 39.3 \ RBC: 4.35 MCV: 90 RFP: 03/13/2023 06:10 NA+ Cl- BUN / 138 100 9 / Glucose ----- 110 H K+ HCO3- Creat \ 3.9 32 1.14 H \ Calcium : 8.8Anion Gap : 10 Albumin : 3.4 Phos : 2.9 Radiology Results: Results: Impression: No acute pulmonary embolism Small pleural effusions as well as moderate interstitial pulmonary edema Signed by Aristeo Muñoz MD CT Angio Chest for PE [Mar 11 2023 9:25PM] Assessment and Plan: Comorbidities: ComorbidityOther Code Status: Code StatusFull Code Assessment: Patient is a 47-year-old female with past medical history of nephrolithiasis, hypertension, fibromyalgia, chronic opiate use, COPD, was admitted to the hospital with pyelonephritis, right renal calculi. Pyelonephritis -Question of possible recently passed calculus but pyelonephritis could not be excluded. -Urine culture growing E. coli which is sensitive to cipro. -Continue Cipro. -Urology following and did not recommend any acute urologic interventions at this time. -Continue IV fluids, antiemetics. -Monitor. Pulmonary edema -Patient complained of shortness of breath and some chest pain on 03/11. -EKG was performed which did not reveal any acute ST-T changes. -Troponin x2 was within normal limits. -D-dimer was elevated, so obtained CT angiogram of the chest which did not reveal PE, but did reveal small pleural effusions as well as moderate interstitial pulm edema. -BNP was mildly elevated at 199. Pulmonary edema likely secondary to IV fluids which were going at 125 cc/h discontinued on 03/11. No known history of CHF. -Improved with lasix Right ovarian cystic lesion -Urogyn following and patient with a complex adnexal mass. Urogyn recommends a CA125 and if normal, urogyn adding her on for laparoscopic right oophorectomy at the end of the month, but if positive, will refer to Dr. Herr. CA 125 was within normal limits at 8.8. to follow up with Urogyn as an outpatient Nephrolithiasis -Urology following and does not recommend any acute urologic invention at this time. -To follow up with urology at discharge Hypokalemia -resolved Hypertension -Continue metoprolol and monitor. DVT prophylaxis -Lovenox subcu. Disposition: Patient being treated for pyelonephritis now with some pulmonary edema. Patient is very slowly improving with continued nausea, abdominal pain. Patient's oral intake is limited, I am concerned about dehydration upon discharge. We will continue treatment another day and reevaluate in a.m. with hopes of discharging in a.m. Electronic Signatures: Konrad Delgado () (Signed 13-Mar-2023 12:47) Authored: Service, Subjective Data, Objective Data, Assessment and Plan, Note Completion Last Updated: 13-Mar-2023 12:47 by Konrad Delgado () [facility] Discharge [id number] Discharge Profile2 Discharge Orders: Anticipated Discharge Date: Anticipated Discharge [id number] Code Status: Code Status at Discharge: Full Code DNR Order Additional Instructions (peds only): Activity: activity as tolerated. Diet: Dietregular Hospital Course (Home Care/Gold Form): Hospital Course: Hospital Course: include significant abnormal lab values Patient is a 47-year-old female with past medical history of nephrolithiasis, hypertension, fibromyalgia, chronic opiate use, COPD, was admitted to the hospital with pyelonephritis, right renal calculi. She was found to have acute pyelonephritis complicated by nephrolithiasis. She was evaluated by urology who recommended no acute urologic intervention at this time but to follow-up with urology as an outpatient. Imaging also noted a right ovarian cystic lesion. Here I see a 125 was ordered and found to be within normal limits. She is advised to follow-up with urogyn for a possible laparoscopic right oophorectomy near the end of the month. Her stay was complicated by shortness of breath. This was attributed to pulmonary edema. EKG showed no acute ST/T wave changes, troponins were within normal limits x2 and D-dimer was elevated and a CT angio was obtained that did not reveal a PE but did reveal a small pleural effusion and moderate interstitial pulmonary edema. This was attributed to IV fluids. She received Lasix during this hospitalization and her symptoms improved. Patient also reported epigastric pain with eating. She is status postcholecystectomy however reports that her symptoms have been present over the past month. She also reports recent NSAID use. She is advised to decrease the bout of NSAIDs and start Protonix. 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 Provider FINAL REVIEW of Orders: Final Review: Final Review of Medication Reconciliation and Orders Completedby Physician Reviewing ProviderKonrad Delgado DO at 14-Mar-2023 12:19:10 Appointments: Follow-Up Appointment 01: Physician/Dept/Service Dr. Reed Reason for ReferralNephrolithasis and right ovarian cystic lesion Follow-Up Appointment 02: Physician/Dept/Service PCP Reason for ReferralHospital follow up Call to Schedule in1 week Follow-Up Appointment 03: Physician/Dept/Service Dr. Bai Other Clinician Instructions: Other Instructions: Nursing InstructionsSIGNS AND SYMPTOMS Painful or burning urination Frequency or urgency Increased side or back pain Fever/chills Weakness Confusion Other Clinician InstructionsRESPONSIBI LITIES FOR HEALTH MANAGEMENT Take medications as directed and DO NOT stop any without talking to your doctor first Attend follow up appointments Drink plenty of fluids Take complete course of antibiotics Incorporate rest periods with activity Electronic Signatures: Konrad Delgado) (Signed 14-Mar-2023 12:19) Authored: Discharge Orders, Hospital Course (Home Care/Gold Form), Provider FINAL REVIEW of Orders, Appointments, Gold Form - Buffing Line Set Up Worker Summary Jayce Cuellar (BRYS[place]) (Signed 14-Mar-2023 13:23) Authored: Discharge Orders, Other Clinician Instructions Last Updated: 14-Mar-2023 13:23 by Jayce Cuellar (BRYS[place]) Normal [facility] - Hematology and Cell countson 03-13-2023 Erythrocyte distribution width (RBC) [Ratio] 12.5 % See Below [facility] Work Phone: Comment on above: Reference Range: 11. 5 - 14.5 Hematocrit (Bld) [Volume fraction] 39.3 % See Below [facility] Work Phone: Comment on above: Reference Range: 36. 0 - 46.0 Hemoglobin (Bld) [Mass/Vol] 12.9 g/dL See Below [facility] Work Phone: Comment on above: Reference Range: 12. 0 - 16.0 MCHC (RBC) [Mass/Vol] 32.8 g/dL See Below [facility] Work Phone: Comment on above: Reference Range: 32. 0 - 36.0 MCV (RBC) [Entitic vol] 90 fL 80 - 100 [facility] Work Phone: Platelets (Bld) [#/Vol] 304 10*3/uL 150 - 450 [facility] Work Phone: RBC (Bld) [#/Vol] 4.35 {x10E12/L} See Below [facility] Work Phone: Comment on above: Reference Range: 4.0 0 - 5.20 WBC (Bld) [#/Vol] 7.8 10*3/uL 4.4 - 11.3 [facility] Work Phone: Order Reconciliationon 03-13 Order Reconciliation Page 1 Discharge Reconciliation Document Reconciliation Type: Discharge requested on behalf of Konrad Delgado (Physician) done by Konrad Delgado () Discharge - Partial Reconciliation: 13-Mar-2023 10:16 by: Konrad Delgado () Discharge - Reconciliation: 14-Mar-2023 11:58 by: Konrad Delgado () Discharge - Reset to Incomplete: 14-Mar-2023 17:36 by: Konrad Delgado (DO) Discharge - Reconciliation: 14-Mar-2023 17:37 by: Konrad Delgado (DO) Home Medications EnteredHOME MEDICATIONS AT DISCHARGE DateReconciliation Comment/ Additional Information albuterol 90 mcg/inh inhalation powder 2 puff(s) inhaled every 6 hours, As Needed 08-Mar-2023 20:34 albuterol 90 mcg/inh inhalation powder 2 puff(s) inhaled every 6 hours, As Needed 08-Mar-2023 20:34 albuterol 90 mcg/inh inhalation powder is continued as albuterol 90 mcg/inh inhalation powder furosemide 20 mg oral tablet 1 tab(s) orally 4 times a week 08-Mar-2023 22:09 furosemide 20 mg oral tablet 1 tab(s) orally 4 times a week 08-Mar-2023 22:09 furosemide 20 mg oral tablet is continued as furosemide 20 mg oral tablet ibuprofen 800 mg oral tablet 1 tab(s) orally every 8 hours, As Needed 08-Mar-2023 20:33 ibuprofen 800 mg oral tablet 1 tab(s) orally every 8 hours, As Needed 08-Mar-2023 20:33 ibuprofen 800 mg oral tablet is continued as ibuprofen 800 mg oral tablet metoprolol tartrate 10 mg/mL oral solution 1 tab(s) orally once a day 08-Mar-2023 22:08 metoprolol tartrate 10 mg/mL oral solution 1 tab(s) orally once a day 08-Mar-2023 22:08 metoprolol tartrate 10 mg/mL oral solution is continued as metoprolol tartrate 10 mg/mL oral solution Current OrdersDateHOME MEDICATIONS AT DISCHARGE DateReconciliation Comment/ Additional Information Acetaminophen Tablet (TYLENOL)DOSE = 975 mg Oral Every 8 Hours 08-Mar-2023 20:17 Acetaminophen is not required Ciprofloxacin 400 mg IVPB/ Premixed Soln 200 mL (CIPRO)Every 12 HoursRecommended Infusion Time: 60 minute(s) 08-Mar-2023 20:17 Ciprofloxacin 400 mg IVPB/ Premixed Soln 200 mL is not required Dicyclomine Capsule (BENTYL)DOSE = 10 mg Oral 4 Times a Day Before Meals 14-Mar-2023 08:33 Dicyclomine is not required Docusate Capsule (COLACE)DOSE = 100 mg Oral 2 Times a Day 07-Sep-2023 20:17 Docusate is not required Enoxaparin SubCutaneous (LOVENOX)DOSE = 40 mg SubCutaneous Every 24 Hours 08-Mar-2023 20:17 Enoxaparin SubCutaneous is not required Ketorolac Injectable (TORADOL)DOSE = 30 mg IntraVenous Push Every 6 HoursStop After 5 Days 08-Mar-2023 20:17 Ketorolac Injectable is not required Magnesium Hydroxide Oral Liquid (MILK OF MAGNESIA)DOSE = 10 mL Oral Every 24 Hours, PRN Constipation 08-Mar-2023 20:17 Magnesium Hydroxide Oral Liquid is not required Melatonin TabletDOSE = 3 mg Oral At Bedtime, PRN Insomnia 08-Mar-2023 20:17 Melatonin is not required Metoprolol Succinate Extended Release Tablet, Extended Release (TOPROL-XL)DOSE = 25 mg Oral Daily 09-Mar-2023 00:23 Metoprolol Succinate Extended Release is not required Ondansetron Injectable (ZOFRAN)DOSE = 4 mg IntraVenous Push Every 4 Hours, PRN Nausea and/or Vomiting 08-Mar-2023 20:17 Ondansetron Injectable is not required oxyCODONE Immediate Release Tablet (OXYIR, ROXICODONE)DOSE = 5 mg Oral Every 6 Hours, PRN Pain - Severe (7-10) 12-Mar-2023 14:30 oxyCODONE Immediate Release is not required Pantoprazole Injectable (PROTONIX)DOSE = 40 mg IntraVenous Push Every 12 Hours 12-Mar-2023 19:39 Pantoprazole Injectable is not required Prochlorperazine Injectable (COMPAZINE)DOSE = 5 mg IntraVenous Push Every 6 Hours, PRN Nausea 10-Mar-2023 11:27 Prochlorperazine Injectable is not required Sodium Chloride 0.9% Injectable Flush via Peripheral LineVolume = 10 mL IntraVenous Flush Every 8 Hours and as Needed 08-Mar-2023 20:17 Sodium Chloride 0.9% Injectable Flush is not required Home Medications Added During Discharge Reconciliation ciprofloxacin 500 mg oral tablet 1 tab(s) orally 2 times a day Coreg 6.25 mg oral tablet 1 tab(s) orally 2 times a day Discharge Discharge Diagnosis< N12 Pyelonephritis Discharge Provider, Konrad Delgado Discharge Disposition : .Home Condition at Discharge: Satisfactory Discharge Communication Instructions for Nursing Only: Remove IV prior to discharge from hospital. Do not remove any midline, if present, without an order from the provider. Discharge Instructions - PHR After your discharge from the hospital, two Summary of Care Documents will be available online in your Personal Health Record (PHR). [facility] ([facility]) Patient Discharge Summary This document is a summary of your hospital stay to be kept for your reference.2.C-CDA Visit Summary This document is a summary of your hospital stay to be shared with your follow-up providers (doctor, beverage sales consultant, physical therapist, etc.). Guidelines for a Healthy Lifestyle oxyCODONE 5 mg oral capsule 1 c (more content not included)... Normal [facility] RENAL FUNCTION PANELon 03-13 Albumin [Mass/Vol] 3.4 g/dL Normal 3.4 - 5.0 [facility] Comment on above: Performed By: #### R ENAL #### [facility] [address] [place] [address] Anion gap [Moles/Vol] 10 mmol/L Normal 10 - 20 [facility] Comment on above: Performed By: #### R ENAL #### [facility] [address] [place] [address] Calcium [Mass/Vol] 8.8 mg/dL Normal 8.6 - 10.3 [facility] Comment on above: Performed By: #### R ENAL #### [facility] [address] [place] [address] Chloride [Moles/Vol] 100 mmol/L Normal 98 - 107 [facility] Comment on above: Performed By: #### R ENAL #### [facility] [address] [place] [address] Creatinine [Mass/Vol] 1.14 mg/dL High 0.50 - 1.05 [facility] Comment on above: Performed By: #### R ENAL #### [facility] [address] [place] [address] GFR/1.73 sq M.predicted among non-blacks MDRD (S/P/Bld) [Vol rate/Area] 60 mL/min/{1.73_m2} Normal >90 [facility] Comment on above: Result Comment: CALC ULATIONS OF ESTIMATED GFR ARE PERFORMED USING THE 2020 CKD-EPI STUDY REFIT EQUATION WITHOUT THE RACE VARIABLE FOR THE IDMS-TRACEABLE CREATININE METHODS. https://jasn.asnjournals.org/content//ASN.79446 43542 Performed By: #### R ENAL #### [facility] [address] [place] [address] Glucose [Mass/Vol] 110 mg/dL High 74 - 99 [facility] Comment on above: Performed By: #### R ENAL #### [facility] [address] [place] [address] HCO3 (Bld) [Moles/Vol] 32 mmol/L Normal 21 - 32 [facility] Comment on above: Performed By: #### R ENAL #### [facility] [address] [place] [address] Phosphate [Mass/Vol] 2.9 mg/dL Normal 2.5 - 4.9 [facility] Comment on above: Result Comment: The performance characteristics of phosphorus testing in heparinized plasma have been validated by the individual laboratory site where testing is performed. Testing on heparinized plasma is not approved by the FDA; however, such approval is not necessary. Performed By: #### R ENAL #### [facility] [address] [place] [address] Potassium [Moles/Vol] 3.9 mmol/L Normal 3.5 - 5.3 [facility] Comment on above: Performed By: #### R ENAL #### [facility] [address] [place] [address] Sodium [Moles/Vol] 138 mmol/L Normal 136 - 145 [facility] Comment on above: Performed By: #### R ENAL #### [facility] [address] [place] [address] Urea nitrogen [Mass/Vol] 9 mg/dL Normal 6 - 23 [facility] Comment on above: Performed By: #### R ENAL #### [facility] [address] [place] [address] Renal Function Panelon 03-13 Albumin BCP dye [Mass/Vol] 3.4 g/dL 3.4 - 5.0 [facility] Work Phone: Anion gap [Moles/Vol] 10 mmol/L 10 - 20 [facility] Work Phone: Calcium [Mass/Vol] 8.8 mg/dL 8.6 - 10.3 [facility] Work Phone: Chloride [Moles/Vol] 100 mmol/L 98 - 107 [facility] Work Phone: CO2 [Moles/Vol] 32 mmol/L 21 - 32 [facility] Work Phone: Creatinine [Mass/Vol] 1.14 mg/dL above high threshold See Below [facility] Work Phone: Comment on above: Reference Range: 0.5 0 - 1.05 Glucose [Mass/Vol] 110 mg/dL above high threshold 74 - 99 [facility] Work Phone: Phosphate [Mass/Vol] 2.9 mg/dL 2.5 - 4.9 [facility] Work Phone: Comment on above: The performance casey acteristics of phosphorus testing in heparinized plasma have been validated by the individual laboratory site where testing is performed. Testing on heparinized plasma is not approved by the FDA; however, such approval is not necessary. Potassium [Moles/Vol] 3.9 mmol/L 3.5 - 5.3 [facility] Work Phone: Sodium [Moles/Vol] 138 mmol/L 136 - 145 [facility] Work Phone: Urea nitrogen [Mass/Vol] 9 mg/dL 6 - 23 [facility] Work Phone: Renal Function Panel 60 {mL/min/1.73m2} >90 [facility] Work Phone: Comment on above: CALCULATIONS OF NURA MATED GFR ARE PERFORMED USING THE 2020 CKD-EPI STUDY REFIT EQUATION WITHOUT THE RACE VARIABLE FOR THE IDMS-TRACEABLE CREATININE METHODS.https://jasn.asnjournals.org/content//A SN.7379467344 CBCon 03-12-2023 Erythrocyte distribution width (RBC) [Ratio] 12.9 % Normal 11.5 - 14.5 [facility] Comment on above: Performed By: #### R ENAL #### [facility] [address] [place] [address] Hematocrit (Bld) [Volume fraction] 37.7 % Normal 36.0 - 46.0 [facility] Comment on above: Performed By: #### R ENAL #### [facility] [address] [facility] [place] [place] [address] Hemoglobin (Bld) [Mass/Vol] 12.1 g/dL Normal 12.0 - 16.0 [facility] Comment on above: Performed By: #### R ENAL #### [facility] [address] [place] [address] MCHC (RBC) [Mass/Vol] 32.1 g/dL Normal 32.0 - 36.0 [facility] Comment on above: Performed By: #### R ENAL #### [facility] [address] [place] [address] MCV (RBC) [Entitic vol] 92 fL Normal 80 - 100 [facility] Comment on above: Performed By: #### R ENAL #### [facility] [address] [facility] [place] [address] Platelets (Bld) [#/Vol] 288 10*3/uL Normal 150 - 450 [facility] Comment on above: Performed By: #### R ENAL #### [facility] [address] [place] [address] RBC 4.09 x10E12/L Normal 4.00 - 5.20 [facility] Comment on above: Performed By: #### R ENAL #### [facility] [address] [place] [address] WBC (Bld) [#/Vol] 6.1 10*3/uL Normal 4.4 - 11.3 [facility] Comment on above: Performed By: #### R ENAL #### [facility] [address] [place] [address] Clinical Event Noteon 2022 Clinical Event Note Clinical Event: Clinical Event Note: Details I interviewed the patient again this evening and she states she still having some shortness of breath with lying flat. Patient still having some abdominal pain and nausea. We will give another dose of Lasix 20 mg IV x1 now. We will also start patient on Protonix 40 mg IV twice daily in case she has gastritis complicating her pyelonephritis with nausea as well. If no improvement of abdominal pain, may consider repeat imaging at some point. Monitor. Demarco Alcazar D.O. Electronic Signatures: Demarco Alcazar (DO) (Signed 12-Mar-2023 19:40) Authored: Clinical Event Note Last Updated: 12-Mar-2023 19:40 by Demarco Alcazar (DO) Normal [facility] Clinical Event Note-CT PEon 03-12-2023 Clinical Event Note-CT PE Clinical Event: Clinical Event Note: TopicCT PE Details CT PE neg and no evidence for PE, some evidence of interstitial edema. Objective Information T PRBPMAPSpO2 [id number] % Date/Time03/11 19:319/10 20:159/10 19:31910 20:15910 19:31 Range(35.9C - 36.7C ) (55 - 73 ) (18 - 18 ) (126 - 190 )/ (83 - 109 ) (92% - 97% ) Electronic Signatures: JANA ESTRADA (ETL PROGRAMMER[employer]IAN [employer]) (Signed 11-Mar-2023 22:33) Authored: Clinical Event Note Last Updated: 11-Mar-2023 22:33 by JANA ESTRADA (ETL PROGRAMMER[employer]IAN [employer]) Normal [facility] Daily Progress Note-Medicine on 03-12-2023 Daily Progress Note-Medicine Service: Medicine Subjective Data: DAMARI RIOS is a 47 year old Female who is Hospital Day # 5. Patient reports having shortness of breath with lying flat primarily. She admits to still having some nausea. She reports having diarrhea yesterday. Objective Data: Objective Information: T PRBPMAPSpO2 [id number] % Date/Time03/12 5: 5: 5: 5: 5:45 Range(36C - 36.7C ) (55 - 83 ) (16 - 18 ) (147 - 190 )/ (87 - 109 ) (94% - 97% ) Pain reported at 03/12 12:00: 7 = Severe Physical Exam by System: Constitutional: Patient is alert. NAD. Eyes: Clear sclera. Respiratory/Thorax: CTAB. Cardiovascular: RRR. Gastrointestinal: Soft. Mild, diffuse abdominal tenderness with no guarding. Bowel sounds present. Extremities: No pitting edema bilat ankles. Psychological: Cooperative. Medication: Medications: Continuous Medications No continuous medications are active Scheduled Medications 1. Acetaminophen: 975 mg Oral Every 8 Hours 2. Ciprofloxacin 400 mg IVPB/ Premixed Soln 200 mL: 200 mL IntraVenous Piggyback Every 12 Hours 3. Docusate: 100 mg Oral 2 Times a Day 4. Enoxaparin SubCutaneous: 40 mg SubCutaneous Every 24 Hours 5. Ketorolac Injectable: 30 mg IntraVenous Push Every 6 Hours 6. Metoprolol Succinate Extended Release: 25 mg Oral Daily PRN Medications 1. HYDROmorphone Injectable: 1 mg IntraVenous Push Every 3 Hours 2. Magnesium Hydroxide Oral Liquid: 10 mL Oral Every 24 Hours 3. Melatonin: 3 mg Oral At Bedtime 4. Ondansetron Injectable: 4 mg IntraVenous Push Every 4 Hours 5. Prochlorperazine Injectable: 5 mg IntraVenous Push Every 6 Hours 6. Sodium Chloride 0.9% Injectable Flush: 10 mL IntraVenous Flush Every 8 Hours and as Needed Recent Lab Results: Results: CBC: 03/12/2023 06:21 \ Hgb / \ 12.1 / WBC Plt 6.1 288 / Hct \ / 37.7 \ RBC: 4.09 MCV: 92 CMP: 03/11/2023 16:28 NA+ Cl- BUN / 137 104 8 / Glucose ----- 92 K+ HCO3- Creat \ 4.0 27 0.85 \ \ T Bili / \ 0.3 / AST x ---- x ALT 19 x ---- x 20 / Alk P \ / 89 \ Calcium : 8.1 L Anion Gap : 10 Albumin : 3.0 L T Protein : 5.7 L RFP: 03/12/2023 06:21 NA+ Cl- BUN / 139 103 5 L / Glucose ----- 83 K+ HCO3- Creat \ 3.9 30 0.84 \ Calcium : 8.5 LAnion Gap : 10 Albumin : 3.2 L Phos : 3.3 Coagulation: null PT / / -------< INR < PTT\ \ Radiology Results: Results: Impression: No acute pulmonary embolism Small pleural effusions as well as moderate interstitial pulmonary edema Signed by Aristeo Muñoz MD CT Angio Chest for PE [Mar 11 2023 9:25PM] Assessment and Plan: Comorbidities: ComorbidityOther Code Status: Code StatusFull Code Assessment: Patient is a 47-year-old female with past medical history of nephrolithiasis, hypertension, fibromyalgia, chronic opiate use, COPD, was admitted to the hospital with pyelonephritis, right renal calculi. Pyelonephritis -Question of possible recently passed calculus but pyelonephritis could not be excluded. -Urine culture growing E. coli which is sensitive to cipro. -Continue Cipro. -Urology following and did not recommend any acute urologic interventions at this time. -Continue IV fluids, antiemetics. -Monitor. Pulmonary edema -Patient complained of shortness of breath and some chest pain on 03/11. EKG was performed which did not reveal any acute ST-T changes. Troponin x2 was within normal limits. D-dimer was elevated, so obtained CT angiogram of the chest which did not reveal PE, but did reveal small pleural effusions as well as moderate interstitial pulm edema. Patient reports increased shortness of breath with lying flat. BNP was mildly elevated at 199. Pulmonary edema likely secondary to IV fluids which were going at 125 cc/h discontinued on 03/11. No known history of CHF. -We will give Lasix 20 mg IV x1 now and holding off on further Lasix at the moment as patient has decreased oral intake. If patient still having symptoms, will give another 20 mg of IV Lasix. Monitor. Right ovarian cystic lesion -Urogyn following and patient with a complex adnexal mass. Urogyn recommends a CA125 and if normal, urogyn adding her on for laparoscopic right oophorectomy at the end of the month, but if positive, will refer to Dr. Herr. CA 125 was within normal limits at 8.8. We will discuss with urogyn. Nephrolithiasis -Urology following and does not recommend any acute urologic invention at this time. Urology recommends to follow-up with Dr. Peraza in the office upon discharge. Hypokalemia -Replaced. -Monitor. Hypert (more content not included)... Normal [facility] Laboratory - Hematology and Cell countson 03-12-2023 Erythrocyte distribution width (RBC) [Ratio] 12.9 % See Below [facility] Work Phone: Comment on above: Reference Range: 11. 5 - 14.5 Hematocrit (Bld) [Volume fraction] 37.7 % See Below [facility] Work Phone: Comment on above: Reference Range: 36. 0 - 46.0 Hemoglobin (Bld) [Mass/Vol] 12.1 g/dL See Below [facility] Work Phone: Comment on above: Reference Range: 12. 0 - 16.0 MCHC (RBC) [Mass/Vol] 32.1 g/dL See Below [facility] Work Phone: Comment on above: Reference Range: 32. 0 - 36.0 MCV (RBC) [Entitic vol] 92 fL 80 - 100 [facility] Work Phone: Platelets (Bld) [#/Vol] 288 10*3/uL 150 - 450 [facility] Work Phone: RBC (Bld) [#/Vol] 4.09 {x10E12/L} See Below [facility] Work Phone: Comment on above: Reference Range: 4.0 0 - 5.20 WBC (Bld) [#/Vol] 6.1 10*3/uL 4.4 - 11.3 [facility] Work Phone: MAGNESIUMon 03-12-2023 Magnesium [Mass/Vol] 1.94 mg/dL Normal 1.60 - 2.40 [facility] Comment on above: Performed By: #### M G #### [facility] [address] [place] [address] Magnesium [Mass/Vol] 1.89 mg/dL Normal 1.60 - 2.40 [facility] Comment on above: Performed By: #### R ENAL #### [facility] [address] [place] [address] Magnesium, Serumon Magnesium [Mass/Vol] 1.94 mg/dL See Below [facility] Work Phone: Comment on above: Reference Range: 1.6 0 - 2.40 Magnesium [Mass/Vol] 1.89 mg/dL See Below [facility] Work Phone: Comment on above: Reference Range: 1.6 0 - 2.40 RENAL FUNCTION PANELon 03-12 Albumin [Mass/Vol] 3.2 g/dL Low 3.4 - 5.0 [facility] Comment on above: Performed By: #### R ENAL #### [facility] [address] [place] [address] Anion gap [Moles/Vol] 10 mmol/L Normal 10 - 20 [facility] Comment on above: Performed By: #### R ENAL #### [facility] [address] [place] [address] Calcium [Mass/Vol] 8.5 mg/dL Low 8.6 - 10.3 [facility] Comment on above: Performed By: #### R ENAL #### [facility] [address] [place] [address] Chloride [Moles/Vol] 103 mmol/L Normal 98 - 107 [facility] Comment on above: Performed By: #### R ENAL #### [facility] [address] [place] [address] Creatinine [Mass/Vol] 0.84 mg/dL Normal 0.50 - 1.05 [facility] Comment on above: Performed By: #### R ENAL #### [facility] [address] [place] [address] GFR/1.73 sq M.predicted among non-blacks MDRD (S/P/Bld) [Vol rate/Area] 87 mL/min/{1.73_m2} Normal >90 [facility] Comment on above: Result Comment: CALC ULATIONS OF ESTIMATED GFR ARE PERFORMED USING THE 2020 CKD-EPI STUDY REFIT EQUATION WITHOUT THE RACE VARIABLE FOR THE IDMS-TRACEABLE CREATININE METHODS. https://jasn.asnjournals.org/content//ASN.96035 [id number] Performed By: #### R ENAL #### [facility] [address] [place] [address] Glucose [Mass/Vol] 83 mg/dL Normal 74 - 99 [facility] Comment on above: Performed By: #### R ENAL #### [facility] [address] [place] [address] HCO3 (Bld) [Moles/Vol] 30 mmol/L Normal 21 - 32 [facility] Comment on above: Performed By: #### R ENAL #### [facility] [address] [place] [address] Phosphate [Mass/Vol] 3.3 mg/dL Normal 2.5 - 4.9 [facility] Comment on above: Result Comment: The performance characteristics of phosphorus testing in heparinized plasma have been validated by the individual laboratory site where testing is performed. Testing on heparinized plasma is not approved by the FDA; however, such approval is not necessary. Performed By: #### R ENAL #### [facility] [address] [place] [address] Potassium [Moles/Vol] 3.9 mmol/L Normal 3.5 - 5.3 [facility] Comment on above: Performed By: #### R ENAL #### [facility] [address] [place] [address] Sodium [Moles/Vol] 139 mmol/L Normal 136 - 145 [facility] Comment on above: Performed By: #### R ENAL #### [facility] [address] [place] [address] Urea nitrogen [Mass/Vol] 5 mg/dL Low 6 - 23 [facility] Comment on above: Performed By: #### R ENAL #### [facility] [address] [place] [address] Renal Function Panelon 03-12 Albumin BCP dye [Mass/Vol] 3.2 g/dL below low threshold 3.4 - 5.0 [facility] Work Phone: Anion gap [Moles/Vol] 10 mmol/L 10 - 20 [facility] Work Phone: Calcium [Mass/Vol] 8.5 mg/dL below low threshold 8.6 - 10.3 [facility] Work Phone: Chloride [Moles/Vol] 103 mmol/L 98 - 107 [facility] Work Phone: CO2 [Moles/Vol] 30 mmol/L 21 - 32 [facility] Work Phone: Creatinine [Mass/Vol] 0.84 mg/dL See Below [facility] Work Phone: Comment on above: Reference Range: 0.5 0 - 1.05 Glucose [Mass/Vol] 83 mg/dL 74 - 99 [facility] Work Phone: Phosphate [Mass/Vol] 3.3 mg/dL 2.5 - 4.9 [facility] Work Phone: Comment on above: The performance casey acteristics of phosphorus testing in heparinized plasma have been validated by the individual laboratory site where testing is performed. Testing on heparinized plasma is not approved by the FDA; however, such approval is not necessary. Potassium [Moles/Vol] 3.9 mmol/L 3.5 - 5.3 [facility] Work Phone: Sodium [Moles/Vol] 139 mmol/L 136 - 145 [facility] Work Phone: Urea nitrogen [Mass/Vol] 5 mg/dL below low threshold 6 - 23 [facility] Work Phone: Renal Function Panel 87 {mL/min/1.73m2} >90 [facility] Work Phone: Comment on above: CALCULATIONS OF NURA MATED GFR ARE PERFORMED USING THE 2020 CKD-EPI STUDY REFIT EQUATION WITHOUT THE RACE VARIABLE FOR THE IDMS-TRACEABLE CREATININE METHODS.https://jasn.asnjournals.org/content//A SN.9166042742 BNPon 03-11-2023 Natriuretic peptide B (Bld) [Mass/Vol] 199 pg/mL High 0 - 99 [facility] Comment on above: Result Comment: . <1 00 pg/mL - Heart failure unlikely 100-299 pg/mL - Intermediate probability of acute heart . failure exacerbation. Correlate with clinical . context and patient history. >=300 pg/mL - Heart Failure likely. Correlate with clinical . context and patient history. BNP testing is performed using different testing methodology at [facility] than at other [facility]. Direct result comparisons should only be made within the same method. Performed By: #### M G #### [facility] [address] [place] [address] CANCER AG 125on 03-11-2023 Cancer Ag 125 Qn 8.8 [arb'U]/mL Normal 0.0 - 30.2 [facility] Comment on above: Result Comment: CA 1 25 testing is performed by chemiluminescent immunoassay using the [employer]. Values obtained with different analytic methods cannot be used interchangeably. . Serum CA 125 measurement is intended for use as an aid in monitoring patients previously treated for ovarian cancer. This assay is not intended for screening or diagnosis of cancer in the general population. The results must not be used as the sole means for clinical diagnosis or patient management decisions. Performed By: #### T RP #### [facility] [address] [place] [address] CBCon 03-11-2023 Erythrocyte distribution width (RBC) [Ratio] 13.2 % Normal 11.5 - 14.5 [facility] Comment on above: Performed By: #### T RP #### [place] [id number] [place] [address] Hematocrit (Bld) [Volume fraction] 34.9 % Low 36.0 - 46.0 [facility] Comment on above: Performed By: #### T RP #### [address] [address] Hemoglobin (Bld) [Mass/Vol] 11.5 g/dL Low 12.0 - 16.0 [facility] Comment on above: Performed By: #### T RP #### [facility] [id number] [place] [address] MCHC (RBC) [Mass/Vol] 33.0 g/dL Normal 32.0 - 36.0 [facility] Comment on above: Performed By: #### T RP #### [facility] [address] [place] [address] MCV (RBC) [Entitic vol] 94 fL Normal 80 - 100 [facility] Comment on above: Performed By: #### T RP #### [facility] [address] [place] [address] Platelets (Bld) [#/Vol] 253 10*3/uL Normal 150 - 450 [facility] Comment on above: Performed By: #### T RP #### [facility] [address] [place] [address] RBC 3.73 x10E12/L Low 4.00 - 5.20 [facility] Comment on above: Performed By: #### T RPHS #### [facility] [address] [facility] [place] [address] WBC (Bld) [#/Vol] 6.8 10*3/uL Normal 4.4 - 11.3 [facility] Comment on above: Performed By: #### T RPHS #### [facility] [address] [facility] [place] [address] Erythrocyte distribution width (RBC) [Ratio] 13.0 % Normal 11.5 - 14.5 [facility] Comment on above: Performed By: #### T RP #### [facility] [id number] [place] [address] [place] [address] Hematocrit (Bld) [Volume fraction] 33.7 % Low 36.0 - 46.0 [facility] Comment on above: Performed By: #### T RP #### [facility] [id number] [place] [address] [place] [address] Hemoglobin (Bld) [Mass/Vol] 10.8 g/dL Low 12.0 - 16.0 [facility] Comment on above: Performed By: #### T RP #### [facility] [id number] [place] [address] [place] [address] MCHC (RBC) [Mass/Vol] 32.0 g/dL Normal 32.0 - 36.0 [facility] Comment on above: Performed By: #### T RP #### [facility] [address] [place] [address] MCV (RBC) [Entitic vol] 93 fL Normal 80 - 100 [facility] Comment on above: Performed By: #### T RPHS #### [facility] [address] [place] [address] Platelets (Bld) [#/Vol] 220 10*3/uL Normal 150 - 450 [facility] Comment on above: Performed By: #### T RPHS #### [facility] [address] [place] [address] RBC 3.61 x10E12/L Low 4.00 - 5.20 [facility] Comment on above: Performed By: #### T [facility] #### [facility] [address] [place] [address] WBC (Bld) [#/Vol] 6.5 10*3/uL Normal 4.4 - 11.3 [facility] Comment on above: Performed By: #### T [facility] #### [facility] [address] [place] [address] COMPREHENSIVE PANELon 2022 Albumin [Mass/Vol] 3.0 g/dL Low 3.4 - 5.0 [facility] Comment on above: Performed By: #### R ENAL #### [facility] [address] [place] [address] ALP [Catalytic activity/Vol] 89 U/L Normal 33 - 110 [facility] Comment on above: Performed By: #### R ENAL #### [facility] [address] [facility] [place] [address] ALT [Catalytic activity/Vol] 20 U/L Normal 7 - 45 [facility] Comment on above: Result Comment: Anjelica ents treated with Sulfasalazine may generate falsely decreased results for ALT. Performed By: #### R ENAL #### [facility] [address] [place] [address] Anion gap [Moles/Vol] 10 mmol/L Normal 10 - 20 [facility] Comment on above: Performed By: #### R ENAL #### [facility] [address] [place] [address] AST [Catalytic activity/Vol] 19 U/L Normal 9 - 39 [facility] Comment on above: Performed By: #### R ENAL #### [facility] [address] [facility] [place] [address] Bilirubin [Mass/Vol] 0.3 mg/dL Normal 0.0 - 1.2 [facility] Comment on above: Performed By: #### R ENAL #### [facility] [address] [place] [address] Calcium [Mass/Vol] 8.1 mg/dL Low 8.6 - 10.3 [facility] [facility] Comment on above: Performed By: #### R ENAL #### [facility] [address] [place] [address] Chloride [Moles/Vol] 104 mmol/L Normal 98 - 107 [facility] Comment on above: Performed By: #### R ENAL #### [facility] [address] [place] [address] Creatinine [Mass/Vol] 0.85 mg/dL Normal 0.50 - 1.05 [facility] Comment on above: Performed By: #### R ENAL #### [facility] [address] [place] [address] GFR/1.73 sq M.predicted among non-blacks MDRD (S/P/Bld) [Vol rate/Area] 85 mL/min/{1.73_m2} Normal >90 [facility] Comment on above: Result Comment: CALC ULATIONS OF ESTIMATED GFR ARE PERFORMED USING THE 2020 CKD-EPI STUDY REFIT EQUATION WITHOUT THE RACE VARIABLE FOR THE IDMS-TRACEABLE CREATININE METHODS. https://jasn.asnjournals.org/content/early//ASN.56528 38340 Performed By: #### R ENAL #### [facility] [address] [place] [address] Glucose [Mass/Vol] 92 mg/dL Normal 74 - 99 [facility] Comment on above: Performed By: #### R ENAL #### [facility] [address] [place] [address] HCO3 (Bld) [Moles/Vol] 27 mmol/L Normal 21 - 32 [facility] Comment on above: Performed By: #### R ENAL #### [facility] [address] [place] [address] Potassium [Moles/Vol] 4.0 mmol/L Normal 3.5 - 5.3 [facility] Comment on above: Performed By: #### R ENAL #### [facility] [address] [place] [address] Protein [Mass/Vol] 5.7 g/dL Low 6.4 - 8.2 [facility] Comment on above: Performed By: #### R ENAL #### [facility] [address] [place] [address] Sodium [Moles/Vol] 137 mmol/L Normal 136 - 145 [facility] Comment on above: Performed By: #### R ENAL #### [facility] [address] [facility] [place] [address] Urea nitrogen [Mass/Vol] 8 mg/dL Normal 6 - 23 [facility] Comment on above: Performed By: #### R ENAL #### [facility] [address] [facility] [place] [address] CT ANGIO CHEST FOR PEon - CT ANGIO CHEST FOR PE STUDY: CT Angiogram of the Chest; 03/11/2023 at 8:39 PM INDICATION: Dyspnea with elevated D-dimer, chest pressure and non-productive cough for a couple of days, getting worse. No surgeries to chest. COMPARISON: XR chest 03/08/2023, XR chest 02/28/2022 (images only; no report). ACCESSION NUMBER(S): [id number] ORDERING CLINICIAN: DEMARCO ALCAZAR DO TECHNIQUE: CTA of the chest was performed with intravenous contrast. Image post-processing was generated on workstation. Omnipaque 350 71 mL was administered intravenously. Automated mA/kV exposure control was utilized and patient examination was performed in strict accordance with principles of ALARA. FINDINGS: Pulmonary arteries are adequately opacified without acute or chronic filling defects. The thoracic aorta is normal in course and caliber without dissection or aneurysm. Borderline cardiomegaly. Thoracic lymph nodes are not enlarged. Small pleural effusions. The airways are patent. Moderate interstitial pulmonary edema as well as diffuse moderate bronchial thickening. The. Upper abdomen demonstrates no acute pathology. There are no acute fractures. No suspicious bony lesions. IMPRESSION: No acute pulmonary embolism Small pleural effusions as well as moderate interstitial pulmonary edema Signed by Aristeo Muñoz MD Electronically signed by: ARISTEO MUÑOZ MD [facility] Clinical Event Note-ED Post Discharge Result Follow Up: [facility] 03-11-2023 Clinical Event Note-ED Post Discharge Result Follow Up: Comp Clinical Event: Clinical Event Note: TopicED Post Discharge Result Follow Up: Complete : Urine : E.coli Details Emergency Department Post-Discharge Group (outpatient pharmacists) reviewed the results of a positive urine culture that was collected from the patient in the emergency room. The patient was admitted to [facility]). The Culture Callback Team will turn over care to the inpatient providers. Please refer to inpatient pharmacist team if providers would like recommendations regarding these results. No further follow up is necessary. Patient's urine culture positive for E.coli. Inpatient treatment includes ciprofloxacin which is appropriate and susceptible per C/S report. If there are any other questions for the ED Post-Discharge Culture Follow Up Team, please contact [phone]. . Adriana Thrasher, PharmD, [facility] PGY1 [employer] Electronic Signatures: Dora Singh ([facility]) (Signed 12-Mar-2023 14:59) Co-Signer: Clinical Event Note Adriana Thrasher ([facility]) (Signed 11-Mar-2023 11:20) Authored: Clinical Event Note Last Updated: 12-Mar-2023 14:59 by Dora Singh ([facility]) Normal [facility] D-DIMER, NON VTEon 3 D-DIMER, NON VTE 1589 ng/mL FEU Abnormal = 500 [facility] Comment on above: Result Comment: THE D-DIMER ASSAY IS REPORTED IN NG/ML FIBRINOGEN EQUIVALENT UNITS (FEU). THE RESULTS OF THIS ASSAY SHOULD NOT BE USED FOR THE EXCLUSION OF DEEP VEIN THROMBOSIS AND/OR PULMONARY EMBOLISM. Performed By: #### M G #### [facility] [address] [place] [address] Daily Progress Note-Medicine on 03-11-2023 Daily Progress Note-Medicine Service: Medicine Subjective Data: DAMARI RIOS is a 47 year old Female who is Hospital Day # 4. Patient reports still having nausea and did have some diarrhea overnight. She denies chest pain, shortness of breath. Objective Data: Objective Information: T PRBPMAPSpO2 [id number]% Date/Time03/11 9: 9: 9: 9: 9:30 Range(35.9C - 36.2C ) (55 - 73 ) (18 - 18 ) (126 - 156 )/ (83 - 99 ) (92% - 97% ) Pain reported at 03/11 8:59: 8 = Severe Physical Exam by System: Constitutional: Patient is alert. No acute distress. Eyes: Clear sclera. Respiratory/Thorax: CTAB. Cardiovascular: RRR. Gastrointestinal: Soft. Bowel sounds present. Mild diffuse abdominal tenderness to palpation without guarding. Bilateral flank tenderness on palpation as well. Extremities: No pitting edema bilateral ankles. Psychological: Cooperative. Medication: Medications: Continuous Medications 1. Lactated Ringers Infusion: 1000 mL IntraVenous Scheduled Medications 1. Acetaminophen: 975 mg Oral Every 8 Hours 2. Ciprofloxacin 400 mg IVPB/ Premixed Soln 200 mL: 200 mL IntraVenous Piggyback Every 12 Hours 3. Docusate: 100 mg Oral 2 Times a Day 4. Enoxaparin SubCutaneous: 40 mg SubCutaneous Every 24 Hours 5. Ketorolac Injectable: 30 mg IntraVenous Push Every 6 Hours 6. Metoprolol Succinate Extended Release: 25 mg Oral Daily 7. Potassium Chloride 20 mEq/Sterile Water 100 mL Premix IVPB: 20 mEq IntraVenous Piggyback Every 2 Hours PRN Medications 1. HYDROmorphone Injectable: 1 mg IntraVenous Push Every 3 Hours 2. Magnesium Hydroxide Oral Liquid: 10 mL Oral Every 24 Hours 3. Melatonin: 3 mg Oral At Bedtime 4. Ondansetron Injectable: 4 mg IntraVenous Push Every 4 Hours 5. Prochlorperazine Injectable: 5 mg IntraVenous Push Every 6 Hours 6. Sodium Chloride 0.9% Injectable Flush: 10 mL IntraVenous Flush Every 8 Hours and as Needed Recent Lab Results: Results: CBC: 03/11/2023 05:58 \ Hgb / \ 10.8 L / WBC Plt 6.5 220 / Hct \ / 33.7 L \ RBC: 3.61 L MCV: 93 RFP: 03/11/2023 05:58 NA+ Cl- BUN / 137 105 9 / Glucose ----- 80 K+ HCO3- Creat \ 3.4 L 24 0.85 \ Calcium : 8.1 LAnion Gap : 11 Albumin : 2.8 L Phos : 3.0 Radiology Results: Results: Impression: 1. There is mild fullness of the right renal collecting system and proximal right ureter with extensive urothelial hyperenhancement of the right renal pelvis and right perinephric edema without evidence of obstructing renalcalculus. This may represent recently passed calculus, however pyelonephritis can not be excluded. There are additionally multiple nonobstructing right-sided intrarenal calculi. 2. Right ovarian cystic lesion has increased since 2019, now measuring 5.0 x 5.3 cm, previously 4.1 cm. Further evaluation with pelvic ultrasound is recommended. CT Abdomen and Pelvis with IV Contrast [Mar 08 2023 7:22PM] Impression: No acute cardiopulmonary process. Xray Chest 2 View PA + Lateral [Mar 08 2023 5:42PM] Assessment and Plan: Comorbidities: ComorbidityOther Code Status: Code StatusFull Code Assessment: Patient is a 47-year-old female with past medical history of nephrolithiasis, hypertension, fibromyalgia, chronic opiate use, COPD, was admitted to the hospital with pyelonephritis, right renal calculi. Pyelonephritis -Question of possible recently passed calculus but pyelonephritis could not be excluded. -Urine culture growing E. coli which is sensitive to cipro. -Continue Cipro. -Urology following and did not recommend any acute urologic interventions at this time. -Continue IV fluids, antiemetics. -Monitor. Right ovarian cystic lesion -Urogyn following and patient with a complex adnexal mass. Urogyn recommends a CA125 and if normal, urogyn adding her on for laparoscopic right oophorectomy at the end of the month, but if positive, will refer to Dr. Herr. CA 125 was within normal limits at 8.8. We will discuss with urogyn. Nephrolithiasis -Urology following and does not recommend any acute urologic invention at this time. Urology recommends to follow-up with Dr. Peraza in the office upon discharge. Hypokalemia -Replace and monitor. Hypertension -Continue metoprolol and monitor. DVT prophylaxis -Lovenox subcu. Electronic Signatures: Demarco Alcazar (DO) (Signed 11-Mar-2023 12:04) Authored: Service, Subjective Data, Objective Data, Assessment and Plan, Note Completion Last Updated: 11-Mar-2023 12:04 by Demarco Alcazar (DO) Normal [facility] EMR ADDONon 03-11-2023 ADDON CONFIRMATION REQUEST REC'D Normal [facility] Comment on above: Performed By: #### R ENAL #### [facility] [address] [place] [address] Performed By: #### M G #### [facility] [address] [place] [address] Electrocardiogram 12 Leadon 03-11-2023 Electrocardiogram 12 Lead Ventricular Rate 67 Atrial Rate 67 P-R Interval 148 QRS Duration 76 Q-T Interval 390 QTC Calculation(Bazett) 412 P [place] 38 R [place] 5 T [place] 89 QRS Count 11 Q Onset 220 P Onset 146 P Offset 191 T Offset 415 QTC Fredericia 404 Diagnosis Class Abnormal Diagnosis Normal sinus rhythm Nonspecific ST and T wave abnormality Abnormal ECG Confirmed by Sina Medina ([id number]) on 03/17/2023 11:44:43 AM Normal [facility] Laboratory - Chemistry and C hemistry - challengeon 03-11-2023 Albumin BCP dye [Mass/Vol] 3.0 g/dL below low threshold 3.4 - 5.0 [facility] Work Phone: ALP [Catalytic activity/Vol] 89 U/L 33 - 110 [facility] Work Phone: ALT With P-5'-P [Catalytic activity/Vol] 20 U/L 7 - 45 [facility] Work Phone: Comment on above: Patients treated wit h Sulfasalazine may generate falsely decreased results for ALT. Anion gap [Moles/Vol] 10 mmol/L 10 - 20 [facility] Work Phone: AST With P-5'-P [Catalytic activity/Vol] 19 U/L 9 - 39 [facility] Work Phone: Bilirubin [Mass/Vol] 0.3 mg/dL 0.0 - 1.2 [facility] Work Phone: Calcium [Mass/Vol] 8.1 mg/dL below low threshold 8.6 - 10.3 [facility] Work Phone: Chloride [Moles/Vol] 104 mmol/L 98 - 107 [facility] Work Phone: CO2 [Moles/Vol] 27 mmol/L 21 - 32 [facility] Work Phone: Creatinine [Mass/Vol] 0.85 mg/dL See Below [facility] Work Phone: Comment on above: Reference Range: 0.5 0 - 1.05 Glucose [Mass/Vol] 92 mg/dL 74 - 99 [facility] Work Phone: Natriuretic peptide B (Bld) [Mass/Vol] 199 pg/mL above high threshold 0 - 99 [facility] Work Phone: Comment on above: . <100 pg/mL - Heart failure -034 pg/mL - Intermediate probability of acute heart. failure exacerbation. Correlate with clinical. context and patient history. >=300 pg/mL - Heart Failure likely. Correlate with clinical. context and patient history.BNP testing is performed using different testing methodology at [facility] than at other [facility]. Direct result comparisons should only be made within the same method. Potassium [Moles/Vol] 4.0 mmol/L 3.5 - 5.3 [facility] Work Phone: Protein [Mass/Vol] 5.7 g/dL below low threshold 6.4 - 8.2 [facility] Work Phone: Sodium [Moles/Vol] 137 mmol/L 136 - 145 [facility] Work Phone: Urea nitrogen [Mass/Vol] 8 mg/dL 6 - 23 [facility] Work Phone: Laboratory - Coagulationon 0 03-11-2023 Fibrin D-dimer DDU (PPP) [Mass/Vol] 1589 {ng/mL_FEU} Abnormal = 500 [facility] Work Phone: Comment on above: THE D-DIMER ASSAY IS REPORTED IN NG/ML FIBRINOGEN EQUIVALENT UNITS (FEU). THE RESULTS OF THIS ASSAY SHOULD NOT BE USED FOR THE EXCLUSION OF DEEP VEIN THROMBOSIS AND/OR PULMONARY EMBOLISM. Laboratory - Hematology and Cell countson 03-11-2023 Erythrocyte distribution width (RBC) [Ratio] 13.2 % See Below [facility] Work Phone: Comment on above: Reference Range: 11. 5 - 14.5 Hematocrit (Bld) [Volume fraction] 34.9 % below low threshold See Below [facility] Work Phone: Comment on above: Reference Range: 36. 0 - 46.0 Hemoglobin (Bld) [Mass/Vol] 11.5 g/dL below low threshold See Below [facility] Work Phone: Comment on above: Reference Range: 12. 0 - 16.0 MCHC (RBC) [Mass/Vol] 33.0 g/dL See Below [facility] Work Phone: Comment on above: Reference Range: 32. 0 - 36.0 MCV (RBC) [Entitic vol] 94 fL 80 - 100 [facility] Work Phone: Platelets (Bld) [#/Vol] 253 10*3/uL 150 - 450 [facility] Work Phone: RBC (Bld) [#/Vol] 3.73 {x10E12/L} below low threshold See Below [facility] Work Phone: Comment on above: Reference Range: 4.0 0 - 5.20 WBC (Bld) [#/Vol] 6.8 10*3/uL 4.4 - 11.3 [facility] Work Phone: Erythrocyte distribution width (RBC) [Ratio] 13.0 % See Below [facility] Work Phone: Comment on above: Reference Range: 11. 5 - 14.5 Hematocrit (Bld) [Volume fraction] 33.7 % below low threshold See Below [facility] Work Phone: Comment on above: Reference Range: 36. 0 - 46.0 Hemoglobin (Bld) [Mass/Vol] 10.8 g/dL below low threshold See Below [facility] Work Phone: Comment on above: Reference Range: 12. 0 - 16.0 MCHC (RBC) [Mass/Vol] 32.0 g/dL See Below [facility] Work Phone: Comment on above: Reference Range: 32. 0 - 36.0 MCV (RBC) [Entitic vol] 93 fL 80 - 100 [facility] Work Phone: Platelets (Bld) [#/Vol] 220 10*3/uL 150 - 450 [facility] Work Phone: RBC (Bld) [#/Vol] 3.61 {x10E12/L} below low threshold See Below [facility] Work Phone: Comment on above: Reference Range: 4.0 0 - 5.20 WBC (Bld) [#/Vol] 6.5 10*3/uL 4.4 - 11.3 [facility] Work Phone: MAGNESIUMon 03-11-2023 Magnesium [Mass/Vol] 1.80 mg/dL Normal 1.60 - 2.40 [facility] Comment on above: Performed By: #### M G #### [facility] [address] [place] [address] Magnesium [Mass/Vol] 1.91 mg/dL Normal 1.60 - 2.40 [facility] Comment on above: Performed By: #### M G #### [facility] [address] [place] [address] Magnesium, Serumon Magnesium [Mass/Vol] 1.80 mg/dL See Below [facility] Work Phone: Comment on above: Reference Range: 1.6 0 - 2.40 Magnesium [Mass/Vol] 1.91 mg/dL See Below [facility] Work Phone: Comment on above: Reference Range: 1.6 0 - 2.40 No Panel Informationon 03-11 85 {mL/min/1.73m2} >90 [facility] Work Phone: Comment on above: CALCULATIONS OF NURA MATED GFR ARE PERFORMED USING THE 2020 CKD-EPI STUDY REFIT EQUATION WITHOUT THE RACE VARIABLE FOR THE IDMS-TRACEABLE CREATININE METHODS.https://jasn.asnjournals.org/content/early//A SN.0411273062 https://[facility] – CLEVELANDEXPRDWE 1:8080/musescripts/mus eweb.dll?RetrieveTestB yDateTime?PatientID=[id number]&Date= 3&Time=16%3a16%3a38%3a 00&TestType=ECG&Site=1 &OutputType=PDF&Ext=PD F [facility] Work Phone: Normal sinus rhythm [facility] Work Phone: Abnormal [facility] Work Phone: [phone] [facility] Work Phone: [phone] [facility] Work Phone: [phone] [facility] Work Phone: [phone] [facility] Work Phone: [phone] [facility] Work Phone: 11 [phone] [facility] Work Phone: [phone] [facility] Work Phone: [phone] [facility] Work Phone: [phone] [facility] Work Phone: [phone] [facility] Work Phone: [phone] [facility] Work Phone: [phone] [facility] Work Phone: [phone] [facility] Work Phone: [phone] [facility] Work Phone: PHOSPHORUSon 03-11-2023 Phosphate [Mass/Vol] 2.7 mg/dL Normal 2.5 - 4.9 [facility] Comment on above: Result Comment: The performance characteristics of phosphorus testing in heparinized plasma have been validated by the individual laboratory site where testing is performed. Testing on heparinized plasma is not approved by the FDA; however, such approval is not necessary. Performed By: #### R ENAL #### [facility] [address] [place] [address] Phosphorus, Serumon 03-11-20 23 Phosphate [Mass/Vol] 2.7 mg/dL 2.5 - 4.9 [facility] Work Phone: Comment on above: The performance casey acteristics of phosphorus testing in heparinized plasma have been validated by the individual laboratory site where testing is performed. Testing on heparinized plasma is not approved by the FDA; however, such approval is not necessary. RENAL FUNCTION PANELon 03-11 Albumin [Mass/Vol] 2.8 g/dL Low 3.4 - 5.0 [facility] Comment on above: Performed By: #### R ENAL #### [facility] [address] [place] [address] Anion gap [Moles/Vol] 11 mmol/L Normal 10 - 20 [facility] Comment on above: Performed By: #### R ENAL #### [facility] [address] [place] [address] Calcium [Mass/Vol] 8.1 mg/dL Low 8.6 - 10.3 [facility] Comment on above: Performed By: #### R ENAL #### [facility] [address] [place] [address] Chloride [Moles/Vol] 105 mmol/L Normal 98 - 107 [facility] Comment on above: Performed By: #### R ENAL #### [facility] [address] [place] [address] Creatinine [Mass/Vol] 0.85 mg/dL Normal 0.50 - 1.05 [facility] Comment on above: Performed By: #### R ENAL #### [facility] [address] [place] [address] GFR/1.73 sq M.predicted among non-blacks MDRD (S/P/Bld) [Vol rate/Area] 85 mL/min/{1.73_m2} Normal >90 [facility] Comment on above: Result Comment: CALC ULATIONS OF ESTIMATED GFR ARE PERFORMED USING THE 2020 CKD-EPI STUDY REFIT EQUATION WITHOUT THE RACE VARIABLE FOR THE IDMS-TRACEABLE CREATININE METHODS. https://jasn.asnjournals.org/content//ASN.48363 77036 Performed By: #### R ENAL #### [facility] [address] [place] [address] Glucose [Mass/Vol] 80 mg/dL Normal 74 - 99 [facility] Comment on above: Performed By: #### R ENAL #### [facility] [address] [facility] [place] [address] HCO3 (Bld) [Moles/Vol] 24 mmol/L Normal 21 - 32 [facility] Comment on above: Performed By: #### R ENAL #### [facility] [address] [place] [address] Phosphate [Mass/Vol] 3.0 mg/dL Normal 2.5 - 4.9 [facility] Comment on above: Result Comment: The performance characteristics of phosphorus testing in heparinized plasma have been validated by the individual laboratory site where testing is performed. Testing on heparinized plasma is not approved by the FDA; however, such approval is not necessary. Performed By: #### R ENAL #### [facility] [address] [place] [address] Potassium [Moles/Vol] 3.4 mmol/L Low 3.5 - 5.3 [facility] Comment on above: Performed By: #### R ENAL #### [facility] [address] [place] [address] Sodium [Moles/Vol] 137 mmol/L Normal 136 - 145 [facility] Comment on above: Performed By: #### R ENAL #### [facility] [address] [facility] [place] [address] Urea nitrogen [Mass/Vol] 9 mg/dL Normal 6 - 23 [facility] Comment on above: Performed By: #### R ENAL #### [facility] [address] [place] [address] Radiologyon 03-11-2023 XR Chest Single view Normal [facility] Work Phone: Renal Function Panelon 03-11 Albumin BCP dye [Mass/Vol] 2.8 g/dL below low threshold 3.4 - 5.0 [facility] Work Phone: Anion gap [Moles/Vol] 11 mmol/L 10 - 20 [facility] Work Phone: Calcium [Mass/Vol] 8.1 mg/dL below low threshold 8.6 - 10.3 [facility] Work Phone: Chloride [Moles/Vol] 105 mmol/L 98 - 107 [facility] Work Phone: CO2 [Moles/Vol] 24 mmol/L 21 - 32 [facility] Work Phone: Creatinine [Mass/Vol] 0.85 mg/dL See Below [facility] Work Phone: Comment on above: Reference Range: 0.5 0 - 1.05 Glucose [Mass/Vol] 80 mg/dL 74 - 99 [facility] Work Phone: Phosphate [Mass/Vol] 3.0 mg/dL 2.5 - 4.9 [facility] Work Phone: Comment on above: The performance casey acteristics of phosphorus testing in heparinized plasma have been validated by the individual laboratory site where testing is performed. Testing on heparinized plasma is not approved by the FDA; however, such approval is not necessary. Potassium [Moles/Vol] 3.4 mmol/L below low threshold 3.5 - 5.3 [facility] Work Phone: Sodium [Moles/Vol] 137 mmol/L 136 - 145 [facility] Work Phone: Urea nitrogen [Mass/Vol] 9 mg/dL 6 - 23 [facility] Work Phone: Renal Function Panel 85 {mL/min/1.73m2} >90 [facility] Work Phone: Comment on above: CALCULATIONS OF NURA MATED GFR ARE PERFORMED USING THE 2020 CKD-EPI STUDY REFIT EQUATION WITHOUT THE RACE VARIABLE FOR THE IDMS-TRACEABLE CREATININE METHODS.https://jasn.asnjournals.org/content//A SN.5780369253 CT Angio Chest For PEon 0 03-11-2023 CT Angio Chest For PE Normal [facility] Work Phone: TROPONIN I, HIGH SENSITIVITY on 03-11-2023 TROPONIN I, HIGH SENSITIVITY 8 ng/L Normal 0 - 13 [facility] Comment on above: Result Comment: . Less than 99th percentile of normal range cutoff- Female and children under 18 years old <14 ng/L; Male <21 ng/L: Negative Repeat testing should be performed if clinically indicated. . Female and children under 18 years old 14-50 ng/L; Male 21-50 ng/L: Consistent with possible cardiac damage and possible increased clinical risk. Serial measurements may help to assess extent of myocardial damage. . >50 ng/L: Consistent with cardiac damage, increased clinical risk and myocardial infarction. Serial measurements may help assess extent of myocardial damage. . NOTE: Children less than 1 year old may have higher baseline troponin levels and results should be interpreted in conjunction with the overall clinical context. . NOTE: Troponin I testing is performed using a different testing methodology at [facility] than at other [facility]. Direct result comparisons should only be made within the same method. Performed By: #### T [facility] #### [facility] [address] [place] [address] TROPONIN I, HIGH SENSITIVITY 8 ng/L Normal 0 - 13 [facility] Comment on above: Result Comment: . Less than 99th percentile of normal range cutoff- Female and children under 18 years old <14 ng/L; Male <21 ng/L: Negative Repeat testing should be performed if clinically indicated. . Female and children under 18 years old 14-50 ng/L; Male 21-50 ng/L: Consistent with possible cardiac damage and possible increased clinical risk. Serial measurements may help to assess extent of myocardial damage. . >50 ng/L: Consistent with cardiac damage, increased clinical risk and myocardial infarction. Serial measurements may help assess extent of myocardial damage. . NOTE: Children less than 1 year old may have higher baseline troponin levels and results should be interpreted in conjunction with the overall clinical context. . NOTE: Troponin I testing is performed using a different testing methodology at [facility] than at other [facility]. Direct result comparisons should only be made within the same method. Performed By: #### T [facility] #### [facility] [address] [place] [address] Tropinin I.cardiac panel High sensitivity method 8 ng/L 0 - 13 [facility] Work Phone: Comment on above: .Less than 99th perc entile of normal range cutoff-Female and children under 18 years old <14 ng/L; Male <21 ng/L: NegativeRepeat testing should be performed if clinically indicated. .Female and children under 18 years old 14-50 ng/L; Male 21-50 ng/L:Consistent with possible cardiac damage and possible increased clinical risk. Serial measurements may help to assess extent of myocardial damage. .>50 ng/L: Consistent with cardiac damage, increased clinical risk andmyocardial infarction. Serial measurements may help assess extent of myocardial damage. . NOTE: Children less than 1 year old may have higher baseline troponin levels and results should be interpreted in conjunction with the overall clinical context. .NOTE: Troponin I testing is performed using a different testing methodology at [facility] than at other [facility]. Direct result comparisons should only be made within the same method. Tropinin I.cardiac panel High sensitivity method 8 ng/L 0 - 13 [facility] Work Phone: Comment on above: .Less than 99th perc entile of normal range cutoff-Female and children under 18 years old <14 ng/L; Male <21 ng/L: NegativeRepeat testing should be performed if clinically indicated. .Female and children under 18 years old 14-50 ng/L; Male 21-50 ng/L:Consistent with possible cardiac damage and possible increased clinical risk. Serial measurements may help to assess extent of myocardial damage. .>50 ng/L: Consistent with cardiac damage, increased clinical risk andmyocardial infarction. Serial measurements may help assess extent of myocardial damage. . NOTE: Children less than 1 year old may have higher baseline troponin levels and results should be interpreted in conjunction with the overall clinical context. .NOTE: Troponin I testing is performed using a different testing methodology at [facility] than at other [facility]. Direct result comparisons should only be made within the same method. BASIC METABOLIC PANELon 09-0 Anion gap [Moles/Vol] 10 mmol/L Normal 10 - 20 [facility] Comment on above: Performed By: #### M G #### [facility] [address] [place] [address] Calcium [Mass/Vol] 8.0 mg/dL Low 8.6 - 10.3 [facility] Comment on above: Performed By: #### M G #### [facility] [address] [place] [address] Chloride [Moles/Vol] 102 mmol/L Normal 98 - 107 [facility] Comment on above: Performed By: #### M G #### [facility] [address] [place] [address] Creatinine [Mass/Vol] 0.91 mg/dL Normal 0.50 - 1.05 [facility] Comment on above: Performed By: #### M G #### [facility] [address] [place] [address] GFR/1.73 sq M.predicted among non-blacks MDRD (S/P/Bld) [Vol rate/Area] 79 mL/min/{1.73_m2} Normal >90 [facility] Comment on above: Result Comment: CALC ULATIONS OF ESTIMATED GFR ARE PERFORMED USING THE 2020 CKD-EPI STUDY REFIT EQUATION WITHOUT THE RACE VARIABLE FOR THE IDMS-TRACEABLE CREATININE METHODS. https://jasn.asnjournals.org/content//ASN.62028 31934 Performed By: #### M G #### [facility] [address] [place] [address] Glucose [Mass/Vol] 89 mg/dL Normal 74 - 99 [facility] Comment on above: Performed By: #### M G #### [facility] [address] [place] [address] HCO3 (Bld) [Moles/Vol] 28 mmol/L Normal 21 - 32 [facility] Comment on above: Performed By: #### M G #### [facility] [address] [place] [address] Potassium [Moles/Vol] 3.7 mmol/L Normal 3.5 - 5.3 [facility] Comment on above: Performed By: #### M G #### [facility] [address] [place] [address] Sodium [Moles/Vol] 136 mmol/L Normal 136 - 145 [facility] Comment on above: Performed By: #### M G #### [facility] [address] [place] [address] Urea nitrogen [Mass/Vol] 10 mg/dL Normal 6 - 23 [facility] Comment on above: Performed By: #### M G #### [facility] [address] [place] [address] CBCon 03-10-2023 Erythrocyte distribution width (RBC) [Ratio] 12.8 % Normal 11.5 - 14.5 [facility] Comment on above: Performed By: #### T RPHS #### [facility] [address] [place] [address] Hematocrit (Bld) [Volume fraction] 33.8 % Low 36.0 - 46.0 [facility] Comment on above: Performed By: #### T RPHS #### [facility] [address] [place] [address] Hemoglobin (Bld) [Mass/Vol] 11.0 g/dL Low 12.0 - 16.0 [facility] Comment on above: Performed By: #### T RP #### [facility] [address] [place] [address] MCHC (RBC) [Mass/Vol] 32.5 g/dL Normal 32.0 - 36.0 [facility] Comment on above: Performed By: #### T RP #### [facility] [address] [place] [address] MCV (RBC) [Entitic vol] 93 fL Normal 80 - 100 [facility] Comment on above: Performed By: #### T RPHS #### [facility] [address] [place] [address] Platelets (Bld) [#/Vol] 222 10*3/uL Normal 150 - 450 [facility] Comment on above: Performed By: #### T RP #### [facility] [address] [place] [address] RBC 3.63 x10E12/L Low 4.00 - 5.20 [facility] Comment on above: Performed By: #### T RP #### [facility] [address] [place] [address] WBC (Bld) [#/Vol] 8.0 10*3/uL Normal 4.4 - 11.3 [facility] Comment on above: Performed By: #### T RP #### [facility] [address] [place] [address] Cancer Antigen, 125on 2022 Cancer Ag 125 Qn 8.8 [arb'U]/mL 0.0 - 30.2 [facility] Work Phone: Comment on above: CA 125 testing is pe rformed by chemiluminescent immunoassay using the [employer]. Values obtained with different analytic methods cannot be used interchangeably.. Serum CA 125 measurement is intended for use as an aid in monitoring patients previously treated for ovarian cancer. This assay is not intended for screening or diagnosis of cancer in the general population. The results must not be used as the sole means for clinical diagnosis or patient management decisions. Consult-Urologyon 03-10-2023 Consult-Urology Service: Service: Urology Consult: Consult requested by (Attending Name): Zina Alexander Reason: Right renal calculi History of Present Illness: HPI: DAMARI RIOS is a 47 year old Female Admitted with right flank pain. Urine culture is positive but still pending on sensitivities and speciation. CT scan revealed kidney stones in the right kidney, none of these are obstructive, there is some enhancement of the renal pelvis and perinephric stranding. He is complaining of flank pain. She did have fevers at home. She has a history of kidney stones. CT also made note of a right ovarian mass, this was seen on 2019 and has slightly increased in size. Ultrasound confirmed a complex mass measuring a little over 5 cm in the right adnexa. Patient has a history of hysterectomy for abnormal bleeding, she reports this was done vaginally at [facility]. She reports her maternal aunt had some history of of reproductive organ cancer but she is not sure what it was. 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) Constitutional: COMMENTS: See HPI Eyes: NEGATIVE: Blurry Vision, Drainage, Diploplia, Redness, Vision Loss/ Change ENMT: NEGATIVE: Nasal Discharge, Nasal Congestion, Ear Pain, Mouth Pain, Throat Pain Respiratory: NEGATIVE: Dry Cough, Productive Cough, Hemoptysis, Wheezing, Shortness of Breath Cardiac: NEGATIVE: Chest Pain, Dyspnea on Exertion, Orthopnea, Palpitations, Syncope Gastrointestinal: COMMENTS: See HPI Genitourinary: COMMENTS: See HPI Musculoskeletal: NEGATIVE: Decreased ROM, Pain, Swelling, Stiffness, Weakness Neurological: NEGATIVE: Dizziness, Confusion, Headache, Seizures, Syncope Psychiatric: NEGATIVE: Mood Changes, Anxiety, Hallucinations, Sleep Changes, Suicidal Ideas Skin: NEGATIVE: Mass, Pain, Pruritus, Rash, Ulcer Endocrine: NEGATIVE: Heat Intolerance, Cold Intolerance, Sweat, Polyuria, Thirst Hematologic/Lymph: NEGATIVE: Anemia, Bruising, Easy Bleeding, Night Sweats, Petechiae Allergic/Immunologic: NEGATIVE: Anaphylaxis, Itchy/ Teary Eyes, Itching, Sneezing, Swelling Allergies: penicillin: Anaphylaxis Intolerances: codeine: GI Upset Objective: Physical Exam by System: Constitutional: Well developed, well nourished and in no apparent distress at rest. Alert and oriented x3, cooperative. Eyes: EOMI, no scleral icterus and no conjunctival injection ENMT: Mucous membranes moist, clear throat without erythema or exudate Head/Neck: Neck supple, thyroid without mass or tenderness, No JVD, no carotid bruits, trachea midline. Respiratory/Thorax: CTAB. No rales, rhonchi or wheezes. Thorax symmetric Cardiovascular: S1 and S2 regular. No murmur, rub or gallop. [place] beat not displaced. Gastrointestinal: Soft, tender in RLQ, no rebound tenderness or guarding, no masses palpable, no organomegaly, normoactive bowel sounds, no bruits Genitourinary: Right CVAT Musculoskeletal: FROM present in all major joints. No visible joint deformities. No muscle, bone or joint tenderness. Extremities: No cyanosis, clubbing or edema. Distal pulses palpable 2+ Neurological: Normal cognition. No focal motor or sensory deficits. Lymphatic: No significant lymphadenopathy Psychological: Appropriate mood and behavior Skin: Intact, warm and dry, no lesions, no rashes Medications: Medications: Continuous Medications 1. Lactated Ringers Infusion: 1000 mL IntraVenous Scheduled Medications 1. Acetaminophen: 975 mg Oral Every 8 Hours 2. Ciprofloxacin 400 mg IVPB/ Premixed Soln 200 mL: 200 mL IntraVenous Piggyback Every 12 Hours 3. Docusate: 100 mg Oral 2 Times a Day 4. Enoxaparin SubCutaneous: 40 mg SubCutaneous Every 24 Hours 5. Influenza Virus QUADRIVALENT (Inactive) ADULT Vaccine: 0.5 mL IntraMuscular Once 6. Ketorolac Injectable: 30 mg IntraVenous Push Every 6 Hours 7. Metoprolol Succinate Extended Release: 25 mg Oral Daily PRN Medications 1. HYDROmorphone Injectable: 1 mg IntraVenous Push Every 3 Hours 2. Magnesium Hydroxide Oral Liquid: 10 mL Oral Every 24 Hours 3. Melatonin: 3 mg Oral At Bedtime 4. Ondansetron Injectable: 4 mg IntraVenous Push Every 4 Hours 5. Prochlorperazine Injectable: 5 mg IntraVenous Push Every 6 Hours 6. Sodium Chloride 0.9% Injectable Flush: 10 mL IntraVenous Flush Every 8 Hours and as Needed Recent Lab Results: Results: I have reviewed these laboratory results: Hepatic Function Panel 08-Mar-2023 17:46:00 ResultValue Aspartate Transaminase, Serum 26 ALB 3. (more content not included)... Normal [facility] Daily Progress Note-Medicine on 03-10-2023 Daily Progress Note-Medicine Service: Medicine Subjective Data: DAMARI RIOS is a 47 year old Female who is Hospital Day # 3. Patient reports still having some nausea and some diffuse abdominal pain. She denies chest pain or shortness of breath. Objective Data: Objective Information: T PRBPMAPSpO2 [id number]% Date/Time03/10 14: 14: 14: 14: 14:31 Range(36C - 36.6C ) (55 - 84 ) (16 - 18 ) (115 - 174 )/ (70 - 99 ) (92% - 96% ) Pain reported at 03/10 9:51: 8 = Severe Physical Exam by System: Constitutional: Patient is alert. NAD. Eyes: Clear sclera. Respiratory/Thorax: CTAB. Cardiovascular: RRR. Gastrointestinal: Soft. +BS. Mild diffuse abdominal tenderness to palpation without guarding. Extremities: No pitting edema bilat ankles. Psychological: Cooperative. Medication: Medications: Continuous Medications 1. Lactated Ringers Infusion: 1000 mL IntraVenous Scheduled Medications 1. Acetaminophen: 975 mg Oral Every 8 Hours 2. Ciprofloxacin 400 mg IVPB/ Premixed Soln 200 mL: 200 mL IntraVenous Piggyback Every 12 Hours 3. Docusate: 100 mg Oral 2 Times a Day 4. Enoxaparin SubCutaneous: 40 mg SubCutaneous Every 24 Hours 5. Influenza Virus QUADRIVALENT (Inactive) ADULT Vaccine: 0.5 mL IntraMuscular Once 6. Ketorolac Injectable: 30 mg IntraVenous Push Every 6 Hours 7. Metoprolol Succinate Extended Release: 25 mg Oral Daily PRN Medications 1. HYDROmorphone Injectable: 1 mg IntraVenous Push Every 3 Hours 2. Magnesium Hydroxide Oral Liquid: 10 mL Oral Every 24 Hours 3. Melatonin: 3 mg Oral At Bedtime 4. Ondansetron Injectable: 4 mg IntraVenous Push Every 4 Hours 5. Prochlorperazine Injectable: 5 mg IntraVenous Push Every 6 Hours 6. Sodium Chloride 0.9% Injectable Flush: 10 mL IntraVenous Flush Every 8 Hours and as Needed Recent Lab Results: Results: CBC: 03/10/2023 06:02 \ Hgb / \ 11.0 L / WBC Plt 8.0 222 / Hct \ / 33.8 L \ RBC: 3.63 L MCV: 93 BMP: 03/10/2023 06:02 NA+ Cl- BUN / 136 102 10 / Glucose ----- 89 K+ HCO3- Creat \ 3.7 28 0.91 \ Calcium : 8.0 L Anion Gap : 10 Radiology Results: Results: Impression: 1. There is mild fullness of the right renal collecting system and proximal right ureter with extensive urothelial hyperenhancement of the right renal pelvis and right perinephric edema without evidence of obstructing renalcalculus. This may represent recently passed calculus, however pyelonephritis can not be excluded. There are additionally multiple nonobstructing right-sided intrarenal calculi. 2. Right ovarian cystic lesion has increased since 2019, now measuring 5.0 x 5.3 cm, previously 4.1 cm. Further evaluation with pelvic ultrasound is recommended. CT Abdomen and Pelvis with IV Contrast [Mar 08 2023 7:22PM] Impression: No acute cardiopulmonary process. Xray Chest 2 View PA + Lateral [Mar 08 2023 5:42PM] Assessment and Plan: Comorbidities: ComorbidityOther Code Status: Code StatusFull Code Assessment: Patient is a 47-year-old female with past medical history of nephrolithiasis, hypertension, fibromyalgia, chronic opiate use, COPD, was admitted to the hospital with pyelonephritis, right renal calculi. Pyelonephritis -Question of possible recently passed calculus but pyelonephritis could not be excluded. -Continue Cipro and follow urine cultures. -Urology following and did not recommend any acute urologic interventions at this time. -Continue IV fluids, antiemetics. -Monitor. Right ovarian cystic lesion -Urogyn following and patient with a complex adnexal mass. Urogyn recommends a CA125 and if normal, urogyn adding her on for laparoscopic right oophorectomy at the end of the month, but if positive, will refer to Dr. Herr. Nephrolithiasis -Urology following and does not recommend any acute urologic invention at this time. Urology recommends to follow-up with Dr. Peraza in the office upon discharge. I discussed case with urology and he recommends pelvic ultrasound. -Monitor. Hypertension -Continue metoprolol and monitor. DVT prophylaxis -Lovenox subcu. Electronic Signatures: Demarco Alcazar (DO) (Signed 10-Mar-2023 18:05) Authored: Service, Subjective Data, Objective Data, Assessment and Plan, Note Completion Last Updated: 10-Mar-2023 18:05 by Demarco Alcazar (DO) Normal [facility] Laboratory - Chemistry and C hemistry - challengeon 03-10-2023 Anion gap [Moles/Vol] 10 mmol/L 10 - 20 [facility] Work Phone: Calcium [Mass/Vol] 8.0 mg/dL below low threshold 8.6 - 10.3 [facility] Work Phone: Chloride [Moles/Vol] 102 mmol/L 98 - 107 [facility] Work Phone: CO2 [Moles/Vol] 28 mmol/L 21 - 32 [facility] Work Phone: Creatinine [Mass/Vol] 0.91 mg/dL See Below [facility] Work Phone: Comment on above: Reference Range: 0.5 0 - 1.05 Glucose [Mass/Vol] 89 mg/dL 74 - 99 [facility] Work Phone: Potassium [Moles/Vol] 3.7 mmol/L 3.5 - 5.3 [facility] Work Phone: Sodium [Moles/Vol] 136 mmol/L 136 - 145 [facility] Work Phone: Urea nitrogen [Mass/Vol] 10 mg/dL 6 - 23 [facility] Work Phone: Laboratory - Hematology and Cell countson 03-10-2023 Erythrocyte distribution width (RBC) [Ratio] 12.8 % See Below [facility] Work Phone: Comment on above: Reference Range: 11. 5 - 14.5 Hematocrit (Bld) [Volume fraction] 33.8 % below low threshold See Below [facility] Work Phone: Comment on above: Reference Range: 36. 0 - 46.0 Hemoglobin (Bld) [Mass/Vol] 11.0 g/dL below low threshold See Below [facility] Work Phone: Comment on above: Reference Range: 12. 0 - 16.0 MCHC (RBC) [Mass/Vol] 32.5 g/dL See Below [facility] Work Phone: Comment on above: Reference Range: 32. 0 - 36.0 MCV (RBC) [Entitic vol] 93 fL 80 - 100 [facility] Work Phone: Platelets (Bld) [#/Vol] 222 10*3/uL 150 - 450 [facility] Work Phone: RBC (Bld) [#/Vol] 3.63 {x10E12/L} below low threshold See Below [facility] Work Phone: Comment on above: Reference Range: 4.0 0 - 5.20 WBC (Bld) [#/Vol] 8.0 10*3/uL 4.4 - 11.3 [facility] Work Phone: No Panel Informationon 03-10 79 {mL/min/1.73m2} >90 [facility] Work Phone: Comment on above: CALCULATIONS OF NURA MATED GFR ARE PERFORMED USING THE 2020 CKD-EPI STUDY REFIT EQUATION WITHOUT THE RACE VARIABLE FOR THE IDMS-TRACEABLE CREATININE METHODS.https://jasn.asnjournals.org/content//A [id number] BASIC METABOLIC PANELon Calcium [Mass/Vol] 8.5 mg/dL Low 8.6 - 10.3 [facility] Comment on above: Performed By: #### T RPHS #### [facility] [address] [place] [address] Anion gap [Moles/Vol] 10 mmol/L Normal 10 - 20 [facility] Comment on above: Performed By: #### T RPHS #### [facility] [address] [place] [address] Chloride [Moles/Vol] 103 mmol/L Normal 98 - 107 [facility] Comment on above: Performed By: #### T RPHS #### [facility] [address] [place] [address] Creatinine [Mass/Vol] 0.96 mg/dL Normal 0.50 - 1.05 [facility] Comment on above: Performed By: #### T RPHS #### [facility] [address] [place] [address] GFR/1.73 sq M.predicted among non-blacks MDRD (S/P/Bld) [Vol rate/Area] 74 mL/min/{1.73_m2} Normal >90 [facility] Comment on above: Result Comment: CALC ULATIONS OF ESTIMATED GFR ARE PERFORMED USING THE 2020 CKD-EPI STUDY REFIT EQUATION WITHOUT THE RACE VARIABLE FOR THE IDMS-TRACEABLE CREATININE METHODS. https://jasn.asnjournals.org/content//ASN.42773 82039 Performed By: #### T RPHS #### [facility] [address] [place] [address] Glucose [Mass/Vol] 96 mg/dL Normal 74 - 99 [facility] Comment on above: Performed By: #### T RPHS #### [facility] [address] [place] [address] HCO3 (Bld) [Moles/Vol] 27 mmol/L Normal 21 - 32 [facility] Comment on above: Performed By: #### T RPHS #### [facility] [address] [place] [address] Potassium [Moles/Vol] 3.7 mmol/L Normal 3.5 - 5.3 [facility] Comment on above: Performed By: #### T RPHS #### [facility] [address] [place] [address] Sodium [Moles/Vol] 136 mmol/L Normal 136 - 145 [facility] Comment on above: Performed By: #### T RPHS #### [facility] [address] [place] [address] Urea nitrogen [Mass/Vol] 14 mg/dL Normal 6 - 23 [facility] Comment on above: Performed By: #### T RPHS #### [facility] [address] [place] [address] CBCon 03-09-2023 Erythrocyte distribution width (RBC) [Ratio] 12.9 % Normal 11.5 - 14.5 [facility] Comment on above: Performed By: #### T RPHS #### [facility] [address] [place] [address] Hematocrit (Bld) [Volume fraction] 37.0 % Normal 36.0 - 46.0 [facility] Comment on above: Performed By: #### T RPHS #### [facility] [address] [place] [address] Hemoglobin (Bld) [Mass/Vol] 11.9 g/dL Low 12.0 - 16.0 [facility] Comment on above: Performed By: #### T [facility] #### [facility] [address] [place] [address] MCHC (RBC) [Mass/Vol] 32.2 g/dL Normal 32.0 - 36.0 [facility] Comment on above: Performed By: #### T [facility] #### [facility] [address] [place] [address] MCV (RBC) [Entitic vol] 93 fL Normal 80 - 100 [facility] Comment on above: Performed By: #### T [facility] #### [facility] [address] [place] [address] Platelets (Bld) [#/Vol] 203 10*3/uL Normal 150 - 450 [facility] Comment on above: Performed By: #### T [facility] #### [facility] [address] [place] [address] RBC 3.97 x10E12/L Low 4.00 - 5.20 [facility] Comment on above: Performed By: #### T RP #### [facility] [address] [place] [address] WBC (Bld) [#/Vol] 8.1 10*3/uL Normal 4.4 - 11.3 [facility] Comment on above: Performed By: #### T [facility] #### [facility] [address] [place] [address] Daily Progress Note-Medicine on 03-09-2023 Daily Progress Note-Medicine Service: Medicine Subjective Data: DAMARI RIOS is a 47 year old Female who is Hospital Day # 2. Patient reports having nausea, vomiting, abdominal pain, right flank pain. She denies shortness of breath or diarrhea. Objective Data: Objective Information: T PRBPMAPSpO2 [id number]% Date/Time03/09 13: 13: 13: 13: 13:44 Range(36.2C - 37.1C ) (70 - 119 ) (16 - 18 ) (115 - 192 )/ (70 - 99 ) (94% - 100% ) Highest temp of 37.1 C was recorded at 03/08 15:54 Pain reported at 03/09 14:09: 8 = Severe Physical Exam by System: Constitutional: Patient is alert. No acute distress. Eyes: Clear sclera. Respiratory/Thorax: CTAB. Cardiovascular: RRR. Gastrointestinal: Soft. Bowel sounds present. Mild diffuse abdominal tenderness to palpation. Bilateral flank tenderness on palpation worse on the right side. Extremities: No pitting edema bilateral ankles. Psychological: Cooperative. Medication: Medications: Continuous Medications 1. Lactated Ringers Infusion: 1000 mL IntraVenous Scheduled Medications 1. Acetaminophen: 975 mg Oral Every 8 Hours 2. Ciprofloxacin 400 mg IVPB/ Premixed Soln 200 mL: 200 mL IntraVenous Piggyback Every 12 Hours 3. Docusate: 100 mg Oral 2 Times a Day 4. Enoxaparin SubCutaneous: 40 mg SubCutaneous Every 24 Hours 5. Influenza Virus QUADRIVALENT (Inactive) ADULT Vaccine: 0.5 mL IntraMuscular Once 6. Iohexol (Omnipaque 350-Radiology Contrast): 116.1 mL IntraVenous Push Once 7. Ketorolac Injectable: 30 mg IntraVenous Push Every 6 Hours 8. Metoprolol Succinate Extended Release: 25 mg Oral Daily PRN Medications 1. HYDROmorphone Injectable: 1 mg IntraVenous Push Every 3 Hours 2. Magnesium Hydroxide Oral Liquid: 10 mL Oral Every 24 Hours 3. Melatonin: 3 mg Oral At Bedtime 4. Ondansetron Injectable: 4 mg IntraVenous Push Every 4 Hours 5. Sodium Chloride 0.9% Injectable Flush: 10 mL IntraVenous Flush Every 8 Hours and as Needed Recent Lab Results: Results: CBC: 03/09/2023 05:59 \ Hgb / \ 11.9 L / WBC Plt 8.1 203 / Hct \ / 37.0 \ RBC: 3.97 L MCV: 93 Neutrophil %: 80.5 BMP: 03/09/2023 05:59 NA+ Cl- BUN / 136 103 14 / Glucose ----- 96 K+ HCO3- Creat \ 3.7 27 0.96 \ Calcium : 8.5 L Anion Gap : 10 Radiology Results: Results: Impression: 1. There is mild fullness of the right renal collecting system and proximal right ureter with extensive urothelial hyperenhancement of the right renal pelvis and right perinephric edema without evidence of obstructing renalcalculus. This may represent recently passed calculus, however pyelonephritis can not be excluded. There are additionally multiple nonobstructing right-sided intrarenal calculi. 2. Right ovarian cystic lesion has increased since 2019, now measuring 5.0 x 5.3 cm, previously 4.1 cm. Further evaluation with pelvic ultrasound is recommended. CT Abdomen and Pelvis with IV Contrast [Mar 08 2023 7:22PM] Impression: No acute cardiopulmonary process. Xray Chest 2 View PA + Lateral [Mar 08 2023 5:42PM] Assessment and Plan: Comorbidities: ComorbidityOther Code Status: Code StatusFull Code Assessment: Patient is a 47-year-old female with past medical history of nephrolithiasis, hypertension, fibromyalgia, chronic opiate use, COPD, was admitted to the hospital with pyelonephritis, right renal calculi. Pyelonephritis -Question of possible recently passed calculus but pyelonephritis could not be excluded. -Continue Cipro and follow urine cultures. -Urology consulted and await their recommendations. -Follow cultures. -Patient still having significant nausea and vomiting. Also, patient with decreased urine output today and bladder scan did not show significant retention. We will continue maintenance IV fluids and also give a 500 cc IV fluid bolus. -Monitor. Right ovarian cystic lesion -I discussed case with urology and he recommends pelvic ultrasound. -Monitor. Hypertension -Continue metoprolol and monitor. DVT prophylaxis -Lovenox subcu. Electronic Signatures: Demarco Alcazar (DO) (Signed 09-Mar-2023 17:30) Authored: Service, Subjective Data, Objective Data, Assessment and Plan, Note Completion Last Updated: 09-Mar-2023 17:30 by Demarco Alcazar (DO) [facility] Discharge Planning Mxna2io 0 03-09-2023 Discharge Planning Note2 Discharge Planning: Planned Dispositionhome Discharge DestinationHome with roommate AMPAC < 20no [place] of Choice Explainedyes Anticipated Discharge [id number] Discharge Planning 03/09/23: 13:33 Transitional Greenhouse Worker Note: Discussed with interdisciplinary team. Met with the patient at the bedside to discuss discharge planning. The patient is alert and oriented x 3 and lives independently at home with her roommate. The patient uses no assistive devices and does drive. The patient is admitted for Pyelonephritis and (R) Nephrolithiasis. Urology is on consult. The patient is denying any discharge needs at this time. Will continue to follow. Nataly Saenz RNrn training Coordinator 03/13/23: 14:03 Transitional Greenhouse Worker Note: Discussed with interdisciplinary team. Met with the patient at the bedside to touch base regarding discharge plan. The patient continues to feel poorly. The patient continues to deny any discharge needs at this time. Will continue to follow. Nataly Saenz RNrn training Coordinator 03/14/23 supervisor [employer] dc pt to home. RN removed 1 IV intact. RN provided dc instructions, educational material and teaching. Pt stated they understood teaching. Pt is being transported to ride by wheelchair. Jayce Cuellar RN Assessment: Discharge Planning Assessment [id number] Discharge Planning Assessment Completed byNataly Saenz RNrn training Coordinator Primary Contact Name and NumberStacy Rory (Friend) [phone] Prior Level of FunctioningIndependent Lives Withalone(1) Living Arrangementshouse(1) Stated Reason for AdmissionDamien stones(1) Arrived Fromemergency department (1) PCPDr. Kimberly Murguia MD [facility] [place] Resource/Environmental Concernsnone(1) Anticipated Transition [place](1) Services Anticipated at Transitionnone(1) Readmission Within the Last 30 Daysno previous admission in last 30 days InsuranceCaresource Anticipated Changes Related to Illnessnone Equipment Needed After Dischargenone Anticipated Discharge Facility/Level of Care Needs.Home Transportation Home Who/HowFriend Medication Adherence/Afford/Obtai jess Nursing Checklist: Lines/Cathetersremoved /appropriate for next level of care Discharge Med Rec Reconciled with Gisele Patient has Prescriptionsyes Transportation for Discharge Confirmedyes Follow up Reviewedyes Discharge Instructions Reviewed WithPatient Discharge Instructions Outcomeverbalize recall/understanding Discharge Instructions Review Completed with Patient/Family (diet, activity, pt instructions)yes Discharge Documentation: Discharge/Transfer Date/[id number] 13:53 Transportation Methodprivate car Discharge Modewheelchair Code StatusCode Status order at time of discharge: Full Code Discharge Order Writtenyes [place] DNR Form Sent with Patient and/or Familyn/a Belongings CommentTele in bin Final Disposition.Home Electronic Signatures: Nataly Saenz (CLIN [place]OR) (Signed 13-Mar-2023 14:04) Authored: Discharge Planning, Assessment, Discharge Documentation Jayce Cuellar (BRYSON) (Signed 14-Mar-2023 13:53) Authored: Discharge Planning, Nursing Checklist, Discharge Documentation Last Updated: 14-Mar-2023 13:53 by Jayce Cuellar (BRYSON) References: 1. Data Referenced From Patient Profile - Adult v2 09-Mar-2023 13:00 Normal [facility] Laboratory - Chemistry and C hemistry - challengeon 03-09-2023 Anion gap [Moles/Vol] 10 mmol/L 10 - 20 [facility] Work Phone: Calcium [Mass/Vol] 8.5 mg/dL below low threshold 8.6 - 10.3 [facility] Work Phone: Chloride [Moles/Vol] 103 mmol/L 98 - 107 [facility] Work Phone: CO2 [Moles/Vol] 27 mmol/L 21 - 32 [facility] Work Phone: Creatinine [Mass/Vol] 0.96 mg/dL See Below [facility] Work Phone: Comment on above: Reference Range: 0.5 0 - 1.05 Glucose [Mass/Vol] 96 mg/dL 74 - 99 [facility] Work Phone: Potassium [Moles/Vol] 3.7 mmol/L 3.5 - 5.3 [facility] Work Phone: Sodium [Moles/Vol] 136 mmol/L 136 - 145 [facility] Work Phone: Urea nitrogen [Mass/Vol] 14 mg/dL 6 - 23 [facility] Work Phone: Laboratory - Hematology and Cell countson 03-09-2023 Erythrocyte distribution width (RBC) [Ratio] 12.9 % See Below [facility] Work Phone: Comment on above: Reference Range: 11. 5 - 14.5 Hematocrit (Bld) [Volume fraction] 37.0 % See Below [facility] Work Phone: Comment on above: Reference Range: 36. 0 - 46.0 Hemoglobin (Bld) [Mass/Vol] 11.9 g/dL below low threshold See Below [facility] Work Phone: Comment on above: Reference Range: 12. 0 - 16.0 MCHC (RBC) [Mass/Vol] 32.2 g/dL See Below [facility] Work Phone: Comment on above: Reference Range: 32. 0 - 36.0 MCV (RBC) [Entitic vol] 93 fL 80 - 100 [facility] Work Phone: Platelets (Bld) [#/Vol] 203 10*3/uL 150 - 450 [facility] Work Phone: RBC (Bld) [#/Vol] 3.97 {x10E12/L} below low threshold See Below [facility] Work Phone: Comment on above: Reference Range: 4.0 0 - 5.20 WBC (Bld) [#/Vol] 8.1 10*3/uL 4.4 - 11.3 [facility] Work Phone: No Panel Informationon 03-09 Normal [facility] Work Phone: 74 {mL/min/1.73m2} >90 [facility] Work Phone: Comment on above: CALCULATIONS OF NURA MATED GFR ARE PERFORMED USING THE 2020 CKD-EPI STUDY REFIT EQUATION WITHOUT THE RACE VARIABLE FOR THE IDMS-TRACEABLE CREATININE METHODS.https://jasn.asnjournals.org/content/22/A .4122375001 Order Reconciliationon 03-09 Order Reconciliation Page 1 Admission Reconciliation Document Reconciliation Type: ED to Observation requested on behalf of Zina Alexander (Physician) done by Zina Alexander) ED to Observation - Reconciliation: 08-Mar-2023 23:47 by: Zina Alexander) ED to Observation - AutoLinked: 08-Mar-2023 23:47 by: Zina Alexander) Home MedicationsEnteredLast Dose TakenReconciled with current Order Reconciliation Comment/ Additional Information albuterol 90 mcg/inh inhalation powder 2 puff(s) inhaled every 6 hours, As [id number] p-2022 AM Reviewed and Held furosemide 20 mg oral tablet 1 tab(s) orally 4 times a [id number] Reviewed and Held ibuprofen 800 mg oral tablet 1 tab(s) orally every 8 hours, As Needed 12:00 AM Reviewed and Held metoprolol tartrate 10 mg/mL oral solution 1 tab(s) orally once a day 08-Mar-2023 Reviewed and Held Additional Current Orders Acetaminophen Tablet (TYLENOL)DOSE = 975 mg Oral Every 8 Hours Ciprofloxacin 400 mg IVPB/ Premixed Soln 200 mL (CIPRO)Every 12 HoursRecommended Infusion Time: 60 minute(s) Docusate Capsule (COLACE)DOSE = 100 mg Oral 2 Times a Day Enoxaparin SubCutaneous (LOVENOX)DOSE = 40 mg SubCutaneous Every 24 Hours Influenza Virus QUADRIVALENT (Inactive) ADULT Vaccine DOSE = 0.5 mL IntraMuscular OnceClinician Notes: :: Must be given prior to discharge. Order entered from Admission Screen. Iohexol (Omnipaque 350-Radiology Contrast) (OMNIPAQUE)DOSE = 116.1 mL IntraVenous Push OnceCa.5 mL/Kg/DOSE x 77.4 Kg = 116.1 mL/Dose (Daily Total is 116.1 mL) Ketorolac Injectable (TORADOL)DOSE = 30 mg IntraVenous Push Every 6 HoursStop After 5 Days Lactated Ringers Infusion IV Bag Volume = 1,000 mL Run at: 125 mL/hr IntraVenous Magnesium Hydroxide Oral Liquid (MILK OF MAGNESIA)DOSE = 10 mL Oral Every 24 Hours, PRN Constipation Melatonin TabletDOSE = 3 mg Oral At Bedtime, PRN Insomnia Ondansetron Injectable (ZOFRAN)DOSE = 4 mg IntraVenous Push Every 4 Hours, PRN Nausea and/or Vomiting Sodium Chloride 0.9% Injectable Flush via Peripheral LineVolume = 10 mL IntraVenous Flush Every 8 Hours and as Needed Normal [facility] Patient Profile - Adult v2on 03-09-2023 Patient Profile - Adult v2 Profile: Initial Info: How to be AddressedMelanie Spoken Language PreferredEnglish Stated Reason for AdmissionKidney stones Wants Family/Rep Notified of Admissionaware Notify PCPdo not notify PCP Informed of Patient Visiting Rightsyes Arrived Fromemergency department Patient Belongingsremains with patient Patient Belongings Remaining with Patientclothing; cell phone/electronics Medications Brought to Hospitalno General Health: Weight in kg77.4 kilogram(s)(1) Weight in wso744.6 pound(s) Weight Methodactual (measured) Scale Typebed Height in cm162.5 centimeter(s)(1) Height in feet5 feet Height in inches3.98 inch(es) Height Methodstated BMI (kg/m2)29.311 square meter RSP Based Care: How would you like to participate in your careHowever is needed What is the number one concern for you during this hospitalizationPain control. getting rid of the kidney stones What is the most important thing we can do to support you during this hospitalizationRelief from pain Is there anything we need to know to best care for youNo Substance: Smoking Statusmoderate user (uses 11-30 cig/day, OR 0.5-1.5 ppd, OR 2-3 cans/pouches loose leaf tobacco per week, OR 0.5-1.5 vape pods per day) (2) Tobacco Cessation Education (provide if tobacco use within the last 12 mos) patient declined Alcohol Usedenies(2) Drug Usedenies (2) Health Mgmt: Symptoms/Conditions Managed at [place] Are You no (2) Are You Currently Breastfeedingno (2) Relationship/Environ: Resource/Environmental Concernsnone Primary Source of Support/Comfortfriend Lives Withalone Living Arrangementshouse Services Anticipated at Transitionnone [facility] Significant IndicatorsComplete Information Review: Allergies, Home Meds and Significant Events have been Reviewed and Verified with Patient/Familyyes ALLERGY, INTOLERANCE, ADVERSE EVENT: Allergies: penicillin: Drug, Anaphylaxis, Active Intolerances: codeine: Drug, GI Upset, Active Electronic Signatures: Suzanne Nj (YUNI) (Signed 09-Mar-2023 13:02) Authored: Initial Info, General Health, RSP Based Care, Substance, Health Mgmt, Relationship/Environ, Additional Information Last Updated: 09-Mar-2023 13:02 by Suzanne Nj (YUNI) References: 1. Data Referenced From 1. Vital Signs 08-Mar-2023 15:54 2. Data Referenced From History and Physical 08-Mar-2023 23:30 Normal [facility] Admission Risk Screen - Adul ton 03-08-2023 Admission Risk Screen - Adult Allergies: Allergies: penicillin: Anaphylaxis Intolerances: codeine: GI Upset Patient Verification: New W ID Band Applied in my Departmentno Type of ID Patient is WearingW wristband, but not applied here Patient Transferred from Other Facility ([facility], [facility],etc)no Patient Identity Verified Bypatient ID Band FULL Name, include Middle, spelling matches patient's ID used for verificationyes ID Band Matches Patient ID used for Verficationyes ID Band MRN Matches EMR MRNyes Visitor Restriction: Coronavirus Visitor Restriction: Reasonable restrictions to in-person visitors will be observed due to current coronavirus pandemic. Travel History: COVID-19 Screening Completedno exposure or symptoms(1) Travel or Exposure Past 30 DaysNO travel to International locations in the past 30 days Ebola AlertFor Ebola-like Symptoms: Isolate Patient and Notify Provider/Pet House Sitter For Contact: Notify Provider/Pet House Sitter Advance Directive: Advance Directive/DNRno (2) Advance Directive Information Givenpatient/family declined [place] Fall Screen: History of falling (immediate or previous)no (0) Secondary Diagnosisyes (15) Intravenous Therapy/ Heparin/Saline Lockyes (20) Gait/Transferringnorma l/bedrest/wheelchair (0) Ambulatory Aidsnone/bedrest/nurse assist (0) Mental Statusoriented to own ability (0) Score: Low risk (<25). Moderate risk (25-44). High risk (>44).35 Cooper InterventionsMODERATE INTERVENTIONS: *Low Interventions Plus: * falls risk band/sticker applied to patient, *yellow non-skid footwear, *instruct to call for assistance before getting out of bed, *bed/chair/bedside commode/toilet alarms, *sensory devices/ambulatory aides available and in reach, *medications reviewed for potential side effects and care planning. Family Violence Screen: Are you or have you been threatened or abused physically, emotionally, or sexually by anyoneno Do you feel UNSAFE going back to the place where you are livingno Clinical assessment: Are there any apparent signs of injuries/behaviors that could be related to abuse/neglectno Social Service Consult for abuse/neglect needed this visitno Functional Screen: Functional Screen: In the recent/past 2-4 weeks, patient or family have noticedno issues that require a speech/language consult at this time AM-PAC- Basic Mobility/Daily Activity: Patient baseline bedboundno Learning Assessment (Patient): Patient is Able to be Assessed for Learningyes Factors Influencing Readiness to Learninterest in learning Factors that Impact Ability to Learnnone Devices/Methods Used to Communicatenone Learning Preferencesaudio; skill demonstration; verbal instruction Cultural Considerationsnone Developmental Considerationsnone Islam Considerationsnone Learning Assessment (Other Learner): Other learner availableno Depression Screen: During the past month, have you often been bothered by feeling down, depressed or hopelessno During the past month, have you often had little interest or pleasure in doing thingsno Have you had any thoughts of harming anyone elseno (1) [place] Suicide: Risk Screen Not Applicable/Able to Answerable to be screened In the Past Month: Have you wished you were or could go to sleep and not wake upno(1) In the Past Month: Have you had any actual thoughts of killing yourself no(1) Lifetime: Have you ever done, started to do, or prepared to do anything to end your lifeno [place] Suicide Risknegative Adult Nutrition Screen: Have you recently lost weight without tryingno Have you been eating poorly because of a decreased appetiteno Malnutrition Screening Tool Score0 Malnutrition Screening Tool RiskMST = 0 or 1 Not at risk. Eating well with little or no weight loss Nutrition Consult needed this visitno Can Patient Participate in Room Serviceyes, with assistance Patient requires Paper Dishes/Plastic Utensilsno Pain Screen: Pain Scalenumerical 0-10 Pain Scale Educationteaching provided Current Pain Level7 = Severe Acceptable Pain Level2 = Mild Expression of Pain (nonverbal)none Chronic Painno Spiritual Screen: Are there any cultural, spiritual, yazidism practices/values/needs that are important for us to knowno CAGE: Is this an injured patient at a Trauma Center ([facility]/[place]/[facility]/[place]): no (2) Vaccinations: Vaccination - Influenza Vaccination Screen: Is it flu season (between and September 29)Yes Screening for identified contraindications to influenza vaccinationno contraindications identified Influenza vaccine indicatedyes Vaccination - Pneumonia Vaccination Screen: Patient has received a previous pneumonia vaccine:no/unknown... Immunocompetent persons with underlying chronic conditions or reside in shelter care facilitiesnone of these conditions Persons with Functional o (more content not included)... Normal [facility] BASIC METABOLIC PANELon 09-0 -2022 Anion gap [Moles/Vol] 15 mmol/L Normal 10 - 20 [facility] Comment on above: Performed By: #### B MP #### [facility] [address] [place] [address] Calcium [Mass/Vol] 9.1 mg/dL Normal 8.6 - 10.3 [facility] Comment on above: Performed By: #### B MP #### [facility] [address] [place] [address] Chloride [Moles/Vol] 100 mmol/L Normal 98 - 107 [facility] Comment on above: Performed By: #### B MP #### [facility] [address] [place] [address] Creatinine [Mass/Vol] 0.96 mg/dL Normal 0.50 - 1.05 [facility] Comment on above: Performed By: #### B MP #### [facility] [address] [place] [address] GFR/1.73 sq M.predicted among non-blacks MDRD (S/P/Bld) [Vol rate/Area] 74 mL/min/{1.73_m2} Normal >90 [facility] Comment on above: Result Comment: CALC ULATIONS OF ESTIMATED GFR ARE PERFORMED USING THE 2020 CKD-EPI STUDY REFIT EQUATION WITHOUT THE RACE VARIABLE FOR THE IDMS-TRACEABLE CREATININE METHODS. https://jasn.asnjournals.org/content/early/ASN.29852 38246 Performed By: #### B MP #### [facility] [address] [place] [address] Glucose [Mass/Vol] 87 mg/dL Normal 74 - 99 [facility] Comment on above: Performed By: #### B MP #### [facility] [address] [place] [address] HCO3 (Bld) [Moles/Vol] 25 mmol/L Normal 21 - 32 [facility] Comment on above: Performed By: #### B MP #### [facility] [address] [place] [address] Potassium [Moles/Vol] 4.6 mmol/L Normal 3.5 - 5.3 [facility] Comment on above: Result Comment: MILD HEMOLYSIS DETECTED. The result may be falsely elevated due to hemolysis or other interferents. Clinical correlation is recommended. Repeat testing may be considered. Performed By: #### B MP #### [facility] [address] [place] [address] Sodium [Moles/Vol] 135 mmol/L Low 136 - 145 [facility] Comment on above: Performed By: #### B MP #### [facility] [address] [place] [address] Urea nitrogen [Mass/Vol] 15 mg/dL Normal 6 - 23 [facility] Comment on above: Performed By: #### B MP #### [facility] [address] [place] [address] CBC AND DIFFERENTIALon 03-08 % AUTOMATED IMMATURE GRAN 0.5 % Normal 0.0 - 0.9 [facility] Comment on above: Result Comment: Evelina ture Granulocyte Count (IG) includes promyelocytes, myelocytes and metamyelocytes but does not include bands. Percent differential counts (%) should be interpreted in the context of the absolute cell counts (cells/L). Performed By: #### C BCDF #### [facility] [address] [place] [address] Basophils (Bld) [#/Vol] 0.03 10*3/uL Normal 0.00 - 0.10 [facility] Comment on above: Performed By: #### C BCDF #### [facility] [id number] [place] [address] Basophils/100 WBC (Bld) 0.3 % Normal 0.0 - 2.0 [facility] Comment on above: Performed By: #### C BCDF #### [facility] [id number] [place] [address] Eosinophils (Bld) [#/Vol] 0.01 10*3/uL Normal 0.00 - 0.70 [facility] [facility] Comment on above: Performed By: #### C BCDF #### [facility] [id number] [place] [address] Eosinophils/100 WBC (Bld) 0.1 % Normal 0.0 - 6.0 [facility] Comment on above: Performed By: #### C BCDF #### [facility] [address] [place] [address] Erythrocyte distribution width (RBC) [Ratio] 12.9 % Normal 11.5 - 14.5 [facility] Comment on above: Performed By: #### C BCDF #### [facility] [address] [place] [address] Hematocrit (Bld) [Volume fraction] 41.6 % Normal 36.0 - 46.0 [facility] Comment on above: Performed By: #### C BCDF #### [facility] [address] [place] [address] Hemoglobin (Bld) [Mass/Vol] 14.0 g/dL Normal 12.0 - 16.0 [facility] Comment on above: Performed By: #### C BCDF #### [facility] [address] [facility] [place] [address] Lymphocytes (Bld) [#/Vol] 1.09 10*3/uL Low 1.20 - 4.80 [facility] Comment on above: Performed By: #### C BCDF #### [facility] [address] [place] [address] Lymphocytes/100 WBC (Bld) 10.1 % Normal 13.0 - 44.0 [facility] Comment on above: Performed By: #### C BCDF #### [facility] [id number] [place] [address] [place] [address] MCHC (RBC) [Mass/Vol] 33.7 g/dL Normal 32.0 - 36.0 [facility] Comment on above: Performed By: #### C BCDF #### [facility] [id number] [place], [place] [address] [address] MCV (RBC) [Entitic vol] 90 fL Normal 80 - 100 [facility] Comment on above: Performed By: #### C BCDF #### [facility] [id number] [place] [place] [address] [place] [address] Monocytes (Bld) [#/Vol] 0.92 10*3/uL Normal 0.10 - 1.00 [facility] Comment on above: Performed By: #### C BCDF #### [facility] [id number] [place], [place] [address] [address] Monocytes/100 WBC (Bld) 8.5 % Normal 2.0 - 10.0 [facility] Comment on above: Performed By: #### C BCDF #### [facility] [address] [facility] [place] [address] Neutrophils (Bld) [#/Vol] 8.73 10*3/uL High 1.20 - 7.70 [facility] Comment on above: Performed By: #### C BCDF #### [facility] [address] [place] [address] Neutrophils/100 WBC (Bld) 80.5 % Normal 40.0 - 80.0 [facility] Comment on above: Performed By: #### C BCDF #### [facility] [address] [place] [address] Platelets (Bld) [#/Vol] 260 10*3/uL Normal 150 - 450 [facility] Comment on above: Performed By: #### C BCDF #### [facility] [address] [place] [address] RBC 4.64 x10E12/L Normal 4.00 - 5.20 [facility] Comment on above: Performed By: #### C BCDF #### [facility] [address] [place] [address] WBC (Bld) [#/Vol] 10.8 10*3/uL Normal 4.4 - 11.3 [facility] Comment on above: Performed By: #### C BCDF #### [facility] [address] [place] [address] CT Abdomen and Pelvis with I V Contraston 03-08-2023 CT Abdomen and Pelvis W contrast IV Normal [facility] Work Phone: Complete Blood Count + Diffe rentialon 03-08-2023 Basophils/100 WBC (Bld) 0.3 % 0.0 - 2.0 [facility] Work Phone: Erythrocyte distribution width (RBC) [Ratio] 12.9 % See Below [facility] Work Phone: Comment on above: Reference Range: 11. 5 - 14.5 Hematocrit (Bld) [Volume fraction] 41.6 % See Below [facility] Work Phone: Comment on above: Reference Range: 36. 0 - 46.0 Hemoglobin (Bld) [Mass/Vol] 14.0 g/dL See Below [facility] Work Phone: Comment on above: Reference Range: 12. 0 - 16.0 Lymphocytes/100 WBC (Bld) 10.1 % See Below [facility] Work Phone: Comment on above: Reference Range: 13. 0 - 44.0 MCHC (RBC) [Mass/Vol] 33.7 g/dL See Below [facility] Work Phone: Comment on above: Reference Range: 32. 0 - 36.0 MCV (RBC) [Entitic vol] 90 fL 80 - 100 [facility] Work Phone: Monocytes/100 WBC (Bld) 8.5 % 2.0 - 10.0 [facility] Work Phone: Neutrophils/100 WBC (Bld) 80.5 % See Below [facility] Work Phone: Comment on above: Reference Range: 40. 0 - 80.0 Platelets (Bld) [#/Vol] 260 10*3/uL 150 - 450 [facility] Work Phone: RBC (Bld) [#/Vol] 4.64 {x10E12/L} See Below [facility] Work Phone: Comment on above: Reference Range: 4.0 0 - 5.20 WBC (Bld) [#/Vol] 10.8 10*3/uL 4.4 - 11.3 [facility] Work Phone: Complete Blood Count + Differential 0.03 {x10E9/L} See Below [facility] Work Phone: Comment on above: Reference Range: 0.0 0 - 0.10 Complete Blood Count + Differential 0.01 {x10E9/L} See Below [facility] Work Phone: Comment on above: Reference Range: 0.0 0 - 0.70 Complete Blood Count + Differential 0.92 {x10E9/L} See Below [facility] Work Phone: Comment on above: Reference Range: 0.1 0 - 1.00 Complete Blood Count + Differential 1.09 {x10E9/L} below low threshold See Below [facility] Work Phone: Comment on above: Reference Range: 1.2 0 - 4.80 Complete Blood Count + Differential 8.73 {x10E9/L} above high threshold See Below [facility] Work Phone: Comment on above: Reference Range: 1.2 0 - 7.70 Complete Blood Count + Differential 0.1 % 0.0 - 6.0 [facility] Work Phone: Complete Blood Count + Differential 0.5 % 0.0 - 0.9 [facility] Work Phone: Comment on above: Immature Granulocyte Count (IG) includes promyelocytes, myelocytes and metamyelocytes but does not include bands. Percent differential counts (%) should be interpreted in the context of the absolute cell counts (cells/L). Cult, Urineon 03-08-2023 Bacteria identified Cx Nom (U) Abnormal [facility] Work Phone: HEPATIC FUNCTION PANELon Albumin [Mass/Vol] 3.8 g/dL Normal 3.4 - 5.0 [facility] Comment on above: Performed By: #### T RPHS #### [facility] [address] [place] [address] ALP [Catalytic activity/Vol] 73 U/L Normal 33 - 110 [facility] Comment on above: Performed By: #### T RPHS #### [facility] [address] [place] [address] ALT [Catalytic activity/Vol] 16 U/L Normal 7 - 45 [facility] Comment on above: Result Comment: Anjelica ents treated with Sulfasalazine may generate falsely decreased results for ALT. Performed By: #### T RPHS #### [facility] [address] [place] [address] AST [Catalytic activity/Vol] 26 U/L Normal 9 - 39 [facility] Comment on above: Result Comment: MILD HEMOLYSIS DETECTED. The result may be falsely elevated due to hemolysis or other interferents. Clinical correlation is recommended. Repeat testing may be considered. Performed By: #### T RPHS #### [facility] [address] [place] [address] Bilirubin [Mass/Vol] 0.9 mg/dL Normal 0.0 - 1.2 [facility] Comment on above: Performed By: #### T RP #### [facility] [address] [place] [address] Bilirubin.indirect [Mass/Vol] 0.1 mg/dL Normal 0.0 - 0.3 [facility] Comment on above: Result Comment: MILD HEMOLYSIS DETECTED. The result may be falsely decreased due to hemolysis or other interferents. Clinical correlation is recommended. Repeat testing may be considered. Performed By: #### T RP #### [facility] [address] [place] [address] Protein [Mass/Vol] 7.3 g/dL Normal 6.4 - 8.2 [facility] Comment on above: Performed By: #### T [facility] #### [facility] [address] [place] [address] Hepatic Function Panelon Albumin BCP dye [Mass/Vol] 3.8 g/dL 3.4 - 5.0 [facility] Work Phone: ALP [Catalytic activity/Vol] 73 U/L 33 - 110 [facility] Work Phone: ALT With P-5'-P [Catalytic activity/Vol] 16 U/L 7 - 45 [facility] Work Phone: Comment on above: Patients treated wit h Sulfasalazine may generate falsely decreased results for ALT. AST With P-5'-P [Catalytic activity/Vol] 26 U/L 9 - 39 [facility] Work Phone: Comment on above: MILD HEMOLYSIS DETEC IMELDA. The result may be falsely elevated due tohemolysis or other interferents. Clinical correlation is recommended.Repeat testing may be considered. Bilirubin [Mass/Vol] 0.9 mg/dL 0.0 - 1.2 [facility] Work Phone: Bilirubin.direct [Mass/Vol] 0.1 mg/dL 0.0 - 0.3 [facility] Work Phone: Comment on above: MILD HEMOLYSIS DETEC IMELDA. The result may be falsely decreased due tohemolysis or other interferents. Clinical correlation is recommended.Repeat testing may be considered. Protein [Mass/Vol] 7.3 g/dL 6.4 - 8.2 [facility] Work Phone: LACTATEon 03-08-2023 Lactate [Moles/Vol] 0.5 mmol/L Normal 0.4 - 2.0 [facility] Comment on above: Result Comment: Yesi puncture immediately after or during the administration of Metamizole may lead to falsely low results. Testing should be performed immediately prior to Metamizole dosing. Performed By: #### L ACT #### [facility] [address] [place] [address] LIPASEon 03-08-2023 Lipase [Catalytic activity/Vol] 13 U/L Normal 9 - 82 [facility] Comment on above: Result Comment: Yesi puncture immediately after or during the administration of Metamizole may lead to falsely low results. Testing should be performed immediately prior to Metamizole dosing. D-zukwxj-d-benzoquinone imine (metabolite of Acetaminophen) will generate erroneously low results in samples for patients that have taken toxic doses of acetaminophen. Performed By: #### R ENAL #### [facility] [address] [place] [address] Laboratory - Chemistry and C hemistry - challengeon 03-08-2023 Anion gap [Moles/Vol] 15 mmol/L 10 - 20 [facility] Work Phone: Calcium [Mass/Vol] 9.1 mg/dL 8.6 - 10.3 [facility] Work Phone: Chloride [Moles/Vol] 100 mmol/L 98 - 107 [facility] Work Phone: CO2 [Moles/Vol] 25 mmol/L 21 - 32 [facility] Work Phone: Creatinine [Mass/Vol] 0.96 mg/dL See Below [facility] Work Phone: Comment on above: Reference Range: 0.5 0 - 1.05 Glucose [Mass/Vol] 87 mg/dL 74 - 99 [facility] Work Phone: Potassium [Moles/Vol] 4.6 mmol/L 3.5 - 5.3 [facility] Work Phone: Comment on above: MILD HEMOLYSIS DETEC IMELDA. The result may be falsely elevated due tohemolysis or other interferents. Clinical correlation is recommended.Repeat testing may be considered. Sodium [Moles/Vol] 135 mmol/L below low threshold 136 - 145 [facility] Work Phone: TSH Qn 0.67 m[IU]/L See Below [facility] Work Phone: Comment on above: Reference Range: 0.4 4 - 3.98 TSH testing is performed using different testing methodology at [facility] than at [facility]. Direct result comparisons should only be made within the same method. TSH Qn Canceled [facility] Work Phone: Comment on above: TSH testing is perfo rmed using different testing methodology at [facility] than at [facility]. Direct result comparisons should only be made within the same method. Urea nitrogen [Mass/Vol] 15 mg/dL 6 - 23 [facility] Work Phone: Lactate, Levelon 03-08-2023 Lactate [Moles/Vol] 0.5 mmol/L 0.4 - 2.0 [facility] Work Phone: Comment on above: Venipuncture immedia tely after or during the administration of Metamizole may lead to falsely low results. Testing should be performed immediately prior to Metamizole dosing. Lipase, Serumon 03-08-2023 Lipase [Catalytic activity/Vol] 13 U/L 9 - 82 [facility] Work Phone: Comment on above: Venipuncture immedia tely after or during the administration of Metamizole may lead to falsely low results. Testing should be performed immediately prior to Metamizole dosing. H-alarov-l-benzoquinone imine (metabolite of Acetaminophen) will generate erroneously low results in samples for patients that have taken toxic doses of acetaminophen. No Panel Informationon 03-08 74 {mL/min/1.73m2} >90 [facility] Work Phone: Comment on above: CALCULATIONS OF NURA MATED GFR ARE PERFORMED USING THE 2020 CKD-EPI STUDY REFIT EQUATION WITHOUT THE RACE VARIABLE FOR THE IDMS-TRACEABLE CREATININE METHODS.https://jasn.asnjournals.org/content//A SN.1079680498 Provider Note - ED v3on Provider Note - ED v3 Provider Note: Results/Vital Signs: Pediatric Clinical Scoring (TERRY) is no recent TERRY charted on this account Chart Review: ED NOTES ED NOTES: HPI: 47-year-old female with a past medical history of nephrolithiasis, hypertension, presents to the emergency department complaining of right-sided abdominal, flank pain since yesterday, patient states that she noticed a fever yesterday as well, states that she has had vague generalized abdominal pain over the past 1 week. Currently describes the pain as punching like states that it does not travel however does cover that large area. She denies any urinary symptoms but does endorse suprapubic tenderness. Denies any abnormal vaginal bleeding or vaginal discharge, denies any concern for STI. Does endorse that she feels it is difficult to breathing when she is in a lot of pain however denies any shortness of breath or chest pain otherwise. States that she does have high heart rate at baseline, additionally does feel as though her heart is racing. Endorse that her symptoms do not relate to food, states that she did have a cholecystectomy many years ago with no complications as well as a hysterectomy. Has been stooling at baseline, denies any vomiting though does endorse nausea. Denies any recent cough, congestion. Has been out of her home medications thus has not taken her hypertension medications for some time, has been trying to get in touch with her PCP. Limitations to history: none Independent Historians: friend at bedside ROS: 10 point ROS negative except as indicated in HPI. PE: VITALS: Vital signs reviewed in nursing triage note, EMR flow sheets, and at patient's bedside. CONSTITUTIONAL: 47F, laying in bed. VS on arrival show tachycardia, elevated BP. afebrile, stating well on RA without increased respiratory effort. HEAD: Normocephalic; atraumatic. EYES: Conjunctiva and sclera are clear bilaterally. PERRL; EOMI. ENT: No rhinorrhea noted. Normal pharynx with no tonsillar hypertrophy; uvula midline; mucous membranes pink/moist, no erythema, no exudate. NECK: Supple; non-tender CARD: tachycardic, regular rhythm, no murmurs RESP: Normal respiratory effort; breath sounds clear and equal bilaterally; no wheezes, rhonchi, or crackles. ABD:, Nondistended, patient does have tenderness to palpation over the right upper, right lower, suprapubic quadrants without rebound or rigidity, does have some voluntary guarding. Right and left flank tenderness with no overlying skin changes. EXT: Normal ROM in all four extremities; 2+ radial and DP pulses bilaterally, no edema. SKIN: Normal for age and race; warm; dry; good turgor; no apparent lesions, rashes or ulcers. NEURO: Alert, lucid; Articulate speech, moves all 4 extremities freely and independently. CN II-XII grossly intact. 5/5 strength and LT sensation in all 4 extremities. PSYCH: Appropriate mood and affect. Assessment/Plan/MDM 47-year-old female the past medical history of nephrolithiasis, hypertension, presents to the emergency department complaining of right-sided abdominal, flank pain, fevers and nausea. Vital signs on arrival do show tachycardia, she is hypertensive. On my evaluation, she is lying comfortably in bed, does have tenderness to palpation over the right upper, right lower and suprapubic regions as well as bilateral flanks, is soft and nondistended, does have some voluntary guarding. Differential includes nephrolithiasis, infected stone, pyelonephritis, appendicitis, pneumonia, lower suspicion for PE as patient does not have any pleuritic component to her pain, she is tachycardic though notes that this is at her baseline. Low suspicion for PID, patient denies any concerns for STI, denies any vaginal discharge and has had a hysterectomy. IV analgesia administered, in addition to IV fluids. We will plan on obtaining CT, labs, and reevaluation. On reevaluation, patient is only slightly improved. No leukocytosis, metabolic panel is unremarkable, creatinine within normal limits, lactate is negative. CT does show concern for pyelonephritis, multiple intrarenal stones are noted, in setting of UA concerning for UTI, concern for Matthieu nephritis and nephrolithiasis, no obstructive stone is appreciated thus urology does not need to be consulted at this time, she does remain hemodynamically stable. She was started on IV ciprofloxacin as she does have an anaphylactic allergy to penicillins. Discussed with the medicine team for admission, they accepted, she remains hemodynamically stable. Clinical Impression: nephrolithiasis, pyelonephritis Dispo: ADM Patient seen and discussed with attending physician Dr. Kelly Matthews, DO EM PGY3 HISTORY OF PRESENTING ILLNESS DAMARI is a 47 year old Female and was seen by me at 08-Mar-2023 15:58 for a chief complaint of abdominal pain (Patient c/o right sided abdominal pain for the past week, (more content not included)... Normal [facility] Radiologyon 03-08-2023 XR Chest [address] [facility] Work Phone: Risk Screen - Adult Emergenc yon 03-08-2023 Risk Screen - Adult Emergency Preferred Language: Preferred Language: Preferred Language for Discussing Health Care (patient/designee)Engl [facility] Patient Preferred Pharmacy: Patient Preferred Pharmacy Statement: I have reviewed and updated the patient's preferred pharmacy selection for today's visit. Advanced Directives: Advance Directive/DNRno Family Violence Adult: Abuse Screen: Are you or have you been threatened or abused physically, emotionally, or sexually by anyoneno Learning Assessment (Patient): Learning Assessment (Patient): Patient is Able to be Assessed for Learningno Reason Unable to Assessed Learning Assessment (Other Learner): Learning Assessment (Other Learner): Other learner availableno Pressure Injury/TB/Substance: Pressure Injury: Do you have a coughno Smoking Statusmoderate user (uses 11-30 cig/day, OR 0.5-1.5 ppd, OR 2-3 cans/pouches loose leaf tobacco per week, OR 0.5-1.5 vape pods per day) Tobacco Cessation Education (provide if tobacco use within the last 12 mos) patient declined Alcohol Usedenies Drug Usedenies Admission Risk Screen: Significant IndicatorsComplete CAGE: CAGE: Is this an injured patient at a Trauma Center ([facility]/[place]/[facility]/[place]): no Electronic Signatures: Dion Cedeño (RN) (Signed 08-Mar-2023 15:56) Authored: Preferred Language, Patient Preferred Pharmacy, Advanced Directives, Family Violence Adult, Learning Assessment (Patient), Learning Assessment (Other Learner), Pressure Injury/TB/Substance, Pressure Injury, CAGE Last Updated: 08-Mar-2023 15:56 by Dion Cedeño (RN) Normal [facility] TSH WITH REFLEX TO FREE T4 I F ABNORMALon 03-08-2023 TSH Qn 0.67 m[IU]/L Normal 0.44 - 3.98 [facility] Comment on above: Result Comment: TSH testing is performed using different testing methodology at [facility] than at [facility]. Direct result comparisons should only be made within the same method. Performed By: #### R ENAL #### [facility] [address] [facility] [place] [address] TSH Canceled Normal [facility] Comment on above: Order Comment: TEST TSH WITH REFLEX TO FREE T4 IF ABNORMAL WAS CANCELLED, 03/08/2023 17:57Condensed orders with other chemistries. Result Comment: TSH testing is performed using different testing methodology at [facility] than at [facility]. Direct result comparisons should only be made within the same method. Performed By: #### R ENAL #### [facility] [address] [facility] [place] [address] Triage - EDon 03-08-2023 Triage - ED Quick Triage: Are You no Have You Given In The Last 6 Weeksno Are You Currently Breastfeedingno Chart Review: ARRIVAL INFORMATION Mode of Arrival: private vehicle CHIEF COMPLAINT DAMARI RIOS is a Female patient with a chief complaint of abdominal pain (Patient c/o right sided abdominal pain for the past week, yesterday she developed nausea, fevers and chills.). Triage Date/Time: 08-Mar-2023 15:54 NUHA: 3 Pain Rating (0-10): 6 = Moderate Vital Signs: Temperature: 98.7F ( 37.1C) taken skin probe Blood Pressure: 192/99 Mean: Heart Rate: 119 Respiratory Rate: 18 Pulse Oximetry: 100% on room air, no respiratory support. Height: 5 feet 4.00 inches. 162.5 CM Weight: 170.6 pounds. Calculated 77.4 kg. (scale measurement) Calculated BMI (kg/m2): 29.311 Calculated BSA (m2) 1.87 Patrick Coma Scale: Best Eye Response: (E4) spontaneous Best Motor Response: (M6) obeys commands Best Verbal Response: (V5) oriented Patrick Score: 15 Allergies: yes Patient has homicidal thoughts: no Symptoms Are POSITIVE For: fever and nausea. Symptoms Are Negative For: anorexia, constipation, diaphoresis, diarrhea, distention, rectal blood and vomiting. Risk Screens Suicide Risk Screen In the Past Month: Have you wished you were or wished you could go to sleep and not wake up no In the Past Month: Have you had any actual thoughts of killing yourself no In Your Lifetime: Have you ever done anything, started to do anything, or prepared to do anything to end your life no Cooper Fall Scale Screening Has the patient fallen before (or is the patient in the ED as a result of a fall) has not had a fall Does the patient have an impaired gait does not have impaired gait Is the patient cognitively impaired not cognitively impaired Interventions: Cooper Fall Interventions: LOW INTERVENTIONS: *patient oriented to surroundings and call system, * patient/family falls education completed and documented, *patients fall status communicated during bedside handoff, *whiteboard updated, *mode of toileting discussed with patient, *bed in low position with brakes locked, *call light in reach, * non-skid footwear TRAVEL HISTORY Travel History Coronavirus Screening: no exposure or symptoms Travel Exposure History: NO travel to International locations in the past 30 days PAIN Pain Scale Used: SIVA Pain Rating (0-10): 6 = Moderate Past Medical History: Past Medical History Reviewedno Electronic Signatures: Dion Cedeño (YUNI) (Signed 08-Mar-2023 15:56) Entered: Risk Screens, Pain, Travel History, Chart Review, Scores, Past Medical History Authored: Quick Triage, Risk Screens, Pain, Travel History, Chart Review, Scores, Past Medical History Last Updated: 08-Mar-2023 15:56 by Dion Cedeño (YUNI) Normal [facility] UA MICROSCOPICon 03-08-2023 BACTERIA 4+ /HPF Abnormal [facility] Comment on above: Performed By: #### R ENAL #### [facility] [address] [place] [address] Mucus Ql (Urine sed) 3+ /LPF Normal [facility] Comment on above: Performed By: #### R ENAL #### [facility] [address] [place] [address] RBC 4 /HPF Normal 0-5 [facility] Comment on above: Performed By: #### R ENAL #### [facility] [address] [place] [address] SQUAMOUS EPITH. CELLS 11 /HPF Normal [facility] Comment on above: Performed By: #### R ENAL #### [facility] [address] [place] [address] WBC (U) [#/Vol] /uL Abnormal 0-5 [facility] Comment on above: Performed By: #### R ENAL #### [facility] [address] [place] [address] WBC CLUMPS FEW Normal [facility] Comment on above: Performed By: #### R ENAL #### [facility] [address] [place] [address] URINALYSIS WITH CULTURE IF I NDICATEDon 03-08-2023 Appearance (U) HAZY Normal CLEAR [facility] Comment on above: Performed By: #### R ENAL #### [facility] [address] [place] [address] Bilirubin Ql (U) Negative Normal NEGATIVE [facility] Comment on above: Performed By: #### R ENAL #### [facility] [address] [place] [address] Color (U) YELLOW Normal STRAW,YELLOW [facility] Comment on above: Performed By: #### R ENAL #### [facility] [address] [place] [address] Glucose Ql (U) Negative Normal NEGATIVE [facility] Comment on above: Performed By: #### R ENAL #### [facility] [address] [place] [address] Hemoglobin Ql (U) SMALL(1+) Abnormal NEGATIVE [facility] Comment on above: Performed By: #### R ENAL #### [facility] [address] [facility] [place] [address] Ketones Ql (U) Negative Normal NEGATIVE [facility] Comment on above: Performed By: #### R ENAL #### [facility] [address] [facility] [address] Leukocyte esterase Test strip Ql (U) LARGE(3+) Abnormal NEGATIVE [facility] Comment on above: Performed By: #### R ENAL #### [facility] [address] [place] [address] Nitrite Ql (U) Positive Abnormal NEGATIVE [facility] Comment on above: Performed By: #### R ENAL #### [facility] [address] [facility] [place] [address] pH (U) 5.0 [pH] Normal 5.0 - 8.0 [facility] Comment on above: Performed By: #### R ENAL #### [facility] [id number] [place] [address] Protein Ql (U) 100(2+) Abnormal NEGATIVE [facility] Comment on above: Performed By: #### R ENAL #### [facility] [address] [place] [address] Specific gravity (U) [Rel density] 1.018 Normal 1.005 - 1.035 [facility] Comment on above: Performed By: #### R ENAL #### [facility] [address] [place] [address] Urobilinogen (U) [Mass/Vol] mg/dL Normal 0.0 - 1.9 [facility] Comment on above: Performed By: #### R ENAL #### [facility] [address] [place] [address] Color (U) YELLOW See Below [facility] Work Phone: Comment on above: Reference Range: STR AW,YELLOW Glucose Ql (U) Negative NEGATIVE [facility] Work Phone: Ketones Ql (U) Negative NEGATIVE [facility] Work Phone: Leukocyte esterase Test strip Ql (U) LARGE(3+) Abnormal NEGATIVE [facility] Work Phone: pH (U) 5.0 [pH] 5.0 - 8.0 [facility] Work Phone: Protein (U) [Mass/Vol] 100(2+) Abnormal NEGATIVE [facility] Work Phone: RBC (U) [#/Vol] SMALL(1+) Abnormal NEGATIVE [facility] Work Phone: Specific gravity (U) [Rel density] 1.018 1 See Below [facility] Work Phone: Comment on above: Reference Range: 1.0 05 - 1.035 URINALYSIS WITH CULTURE IF INDICATED Positive Abnormal NEGATIVE [facility] Work Phone: URINALYSIS WITH CULTURE IF INDICATED <2.0 0.0 - 1.9 [facility] Work Phone: URINALYSIS WITH CULTURE IF INDICATED Negative NEGATIVE [facility] Work Phone: URINALYSIS WITH CULTURE IF INDICATED HAZY CLEAR [facility] Work Phone: URINE CULTURE,BACTERIALon URINE CULTURE,BACTERIAL PATIENT: DAMARI RIOS LOCATION: [address]#: [id number] : 77 AGE: SEX: F ORDERED BY: FARNAZ WILSON SOURCE: URINE COLLECTED: 03/08/23 16:54 ANTIBIOTICS AT [facility].: RECEIVED : 03/09/23 01:06 SITE: R E S U L T S URINE CULTURE,BACTERIAL FINAL 03/11/23 09:04 ISOLATE1 : Escherichia coli >100,000 CFU/ML Organism E coli Antibiotic BP INTRP Ampicillin R Amox/Clavulanate S Ceftriaxone S Cefazolin S Ciprofloxacin S Nitrofurantoin S Gentamicin S Levofloxacin S Piperc/Tazobact S Trimeth/Sulfa R S=SUSCEPTIBLE I=INTERMEDIATE R=RESISTANT SDD=SUSCEPTIBLE DOSE DEPENDENT NS=NONSUSCEPTIBLE X=REPORTED IN ERROR Normal [facility] Comment on above: Performed By: #### T [facility] #### [facility] [address] [place] [address] Urinalysis, Microscopicon Urinalysis, Microscopic 3+ [facility] Work Phone: Urinalysis, Microscopic 4+ Abnormal [facility] Work Phone: Urinalysis, Microscopic 11 {/HPF} [facility] Work Phone: Urinalysis, Microscopic 4 {/HPF} 0-5 [facility] Work Phone: Urinalysis, Microscopic FEW [facility] Work Phone: Urinalysis, Microscopic >182 Abnormal 0-5 [facility] Work Phone: CHEST 2 VIEWon 02-28-2022 CHEST 2 VIEW *FINAL Date of Service: 02/28/2022 15:21 Adm #: [id number] Reading Dr:ELLIS Oliveros Dr: ELLIS VARGAS PROCEDURE: CHEST 2 VIEW - NXR 0020 REASON FOR EXAM: cough short of breath RESULT: Patient Name: DAMARI RIOS STUDY: CHEST 2 VIEW; 02/28/2022 3:21 pm INDICATION: cough short of breath; COMPARISON: October 31, 2016 ACCESSION NUMBER(S): [id number] ORDERING CLINICIAN: ELIZABETH LOWE TECHNIQUE: Views: PA and Lateral FINDINGS: RESULTS: The cardiac silhouette is within normal limits. Mediastinal contours are unremarkable. The lungs demonstrate no infiltrate or atelectasis. There is no evidence for pleural effusion. The osseous structures are unremarkable. IMPRESSION: No radiographic evidence for acute cardiopulmonary disease. Dictation workstation: [id number] Original Interpreting Physician: ELLIS VARGAS MD Original Transcribed by/Date: MMNICK Feb 28 2022 3:09P Original Electronically Signed by/Date: ELLIS VARGAS MD Feb 28 2022 4:58P Addendum Interpreting Physician: Addendum Transcribed by/Date: NO ADDENDUM Addendum Electronically Signed by/Date: [facility] Tobacco Screening.on 022 Tobacco use status CPHS b) No [facility] 103 DO Work Phone: Falls Risk Screeningon 10-17 Fall risk assessment a) No falls within the last year [facility] 2300 Work Phone: Laboratory - Drug toxicology on 10-17-2021 Amphetamines Screen Ql (U) Negative NEGATIVE [facility] 890 202 DO Work Phone: Comment on above: CUTOFF LEVEL: 500 NG /ML Cross-reactivity has been reported with high concentrations of the following drugs: buproprion, chloroquine, chlorpromazine, ephedrine, mephentermine, fenfluramine, phentermine, phenylpropanolamine, pseudoephedrine, and propranolol. Barbiturates Screen Ql (U) Negative NEGATIVE [facility] 890 202 DO Work Phone: Comment on above: CUTOFF LEVEL: 200 NG /ML Benzodiazepines Ql (U) Negative NEGATIVE [facility] 890 202 DO Work Phone: Comment on above: CUTOFF LEVEL: 200 NG /ML Benzoylecgonine Screen Ql (U) Negative NEGATIVE [facility] 890 202 DO Work Phone: Comment on above: CUTOFF LEVEL: 150 NG /ML Cannabinoids Screen Ql (U) Negative NEGATIVE [facility] 890 202 DO Work Phone: Comment on above: CUTOFF LEVEL: 50 NG/ ML Methadone Screen Ql (U) Negative NEGATIVE [facility] 890 202 DO Work Phone: Comment on above: CUTOFF LEVEL: 150 NG /ML The metabolite Y-lohzv-luxnkqwhsqeyql (LAAM) is not detected by this method in concentrations that would be found in the urine of patients on LAAM therapy. Opiates Screen Ql (U) Negative NEGATIVE [facility] 890 202 DO Work Phone: Comment on above: CUTOFF LEVEL: 300 NG /ML The opiate screen does not detect fentanyl, meperidine, or tramadol. Oxycodone is not consistently detected (refer to Oxycodone Screen, Urine result). oxyCODONE+oxyMORphone Screen Ql (U) Negative NEGATIVE [facility] 890 202 DO Work Phone: Comment on above: CUTOFF LEVEL: 100 NG /ML This test will accurately detect both oxycodone and oxymorphone. Phencyclidine Ql (U) Negative NEGATIVE [facility] 890 202 DO Work Phone: Comment on above: CUTOFF LEVEL: 25 NG/ ML Cross-reactivity has been reported with dextromethorphan. No Panel Informationon 10-17 Negative NEGATIVE [facility] 890 202 DO Work Phone: Comment on above: CUTOFF LEVEL: 1 NG/M L SEE BELOW [facility] 890 202 DO Work Phone: Comment on above: Drug screen results are presumptive and should not be used to assess compliance with prescribed medication. Definitive confirmatory drug testing has been added to this sample for any positive screen result and will be reported separately. .Toxicology screening results are reported qualitatively. The concentration must be greater than or equal to the cutoff to be reported as positive. The concentration at which the screening test can detect an individual drug or metabolite varies. The absence of expected drug(s) and/or drug metabolite(s) may indicate non-compliance, inappropriate timing of specimen collection relative to drug administration, poor drug absorption, diluted/adulterated urine, or limitations of testing. For medical purposes only; not valid for forensic use. .Interpretive questions should be directed to the laboratory medical directors. Radiologyon 10-17-2021 XR Lumbar spine AP and Lateral Normal [facility] 890 202 DO Work Phone: CALCIUM TOTAL [facility] 09-27-19 22 Calcium [Mass/Vol] 9.5 mg/dL 8.5 - 10. 2 mg/dL [facility] PTH INTACT Don 09-26-2021 Parathyrin.intact [Mass/Vol] 33 pg/mL 15 - 65 pg/mL [facility] UA DIP, URINE (POC)on 2021 BILIRUBIN UA (POCT) Negative Negative [facility] CLARITY UA (POCT) Clear [facility] COLOR UA (POCT) Yellow [facility] GLUCOSE UA (POCT) Negative Negative mg/dL [facility] HEMOGLOBIN/BLOOD UA (POCT) Large Abnormal Negative [facility] KETONE UA (POCT) Negative Negative mg/dL [facility] LEUKOCYTES UA (POCT) Negative Negative [facility] NITRITE UA (POCT) Negative Negative [facility] PH UA (POCT) 5.0 4.5 - 8.0 [facility] Protein Ql (U) 100 mg/dL Abnormal Negative mg/dL [facility] SPECIFIC GRAVITY UA (POCT) >=1.030 1.005 - 1.030 [facility] UROBILINOGEN UA (POCT) 0.2 E.U./dL Alexa l E.U./dL [facility] URIC ACID BLOODon 09-26-2021 Urate [Mass/Vol] 5.1 mg/dL 2.5 - 6.6 mg/dL [facility] Antidep Panel, Urineon 08-11 AMITRIPTYLINE [facility] Comment on above: Result Comment: NONE DET Unit: ng/mL Urine Reporting Limit: 100 ng/mL Synonym(s): Elavil(R); Endep(R) Analysis by Gas Chromatography (GC) and Gas Chromatography/Mass Spectrometry (GC/MS) Performed By: #### U TCAQT #### [address] [address] AMOXAPINE [facility] Comment on above: Result Comment: NONE DET Unit: ng/mL Urine Reporting Limit: 100 ng/mL Synonym(s): Asendin(R) Analysis by Gas Chromatography (GC) and Gas Chromatography/Mass Spectrometry (GC/MS) Performed By: #### U TCAQT #### [address] [address] CLOMIPRAMINE [facility] Comment on above: Result Comment: NONE DET Unit: ng/mL Urine Reporting Limit: 100 ng/mL Synonym(s): Anafranil(R) Analysis by Gas Chromatography (GC) and Gas Chromatography/Mass Spectrometry (GC/MS) Performed By: #### U TCAQT #### [place] [address] DESIPRAMINE [facility] Comment on above: Result Comment: NONE DET Unit: ng/mL Urine Reporting Limit: 100 ng/mL Synonym(s): Imipramine Metabolite; Norpramin(R); Pertofrane(R) Desipramine is a metabolite of Imipramine and is also available as an independent therapeutic agent. 24-hour post-dose urine typically contains less than 1% of an administered dose. Analysis by Gas Chromatography (GC) and Gas Chromatography/Mass Spectrometry (GC/MS) Performed By: #### U TCAQT #### [place] [address] DESMETHYLCLOMIPRAMINE [facility] Comment on above: Result Comment: NONE DET Unit: ng/mL Urine Reporting Limit: 100 ng/mL Synonym(s): Clomipramine Metabolite Analysis by Gas Chromatography (GC) and Gas Chromatography/Mass Spectrometry (GC/MS) Performed By: #### U TCAQT #### [address] [address] DESMETHYLDOXEPIN [facility] Comment on above: Result Comment: NONE DET Unit: ng/mL Urine Reporting Limit: 100 ng/mL Synonym(s): Doxepin Metabolite Analysis by Gas Chromatography (GC) and Gas Chromatography/Mass Spectrometry (GC/MS) Performed By: #### U TCAQT #### [place] [address] DESMETHYLTRIMIPRAMINE [facility] Comment on above: Result Comment: NONE DET Unit: ng/mL Urine Reporting Limit: 100 ng/mL Synonym(s): Trimipramine Metabolite Analysis by Gas Chromatography (GC) and Gas Chromatography/Mass Spectrometry (GC/MS) Performed By: #### U TCAQT #### [place] [address] DOXEPIN [facility] Comment on above: Result Comment: NONE DET Unit: ng/mL Urine Reporting Limit: 100 ng/mL Synonym(s): Sinequan(R) Analysis by Gas Chromatography (GC) and Gas Chromatography/Mass Spectrometry (GC/MS) Performed By: #### U TCAQT #### [place] [address] FLUOXETINE [facility] Comment on above: Result Comment: NONE DET Unit: ng/mL Urine Reporting Limit: 100 ng/mL Synonym(s): Prozac(R) Analysis by Gas Chromatography (GC) and Gas Chromatography/Mass Spectrometry (GC/MS) Performed By: #### U TCAQT #### [place] [address] IMIPRAMINE [facility] Comment on above: Result Comment: NONE DET Unit: ng/mL Urine Reporting Limit: 100 ng/mL Synonym(s): Tofranil(R) Analysis by Gas Chromatography (GC) and Gas Chromatography/Mass Spectrometry (GC/MS) Performed By: #### U TCAQT #### [place] [address] MAPROTILINE [facility] Comment on above: Result Comment: NONE DET Unit: ng/mL Urine Reporting Limit: 100 ng/mL Synonym(s): Ludiomil(R) Analysis by Gas Chromatography (GC) and Gas Chromatography/Mass Spectrometry (GC/MS) Performed By: #### U TCAQT #### [place] [address] MIRTAZAPINE [facility] Comment on above: Result Comment: NONE DET Unit: ng/mL Urine Reporting Limit: 100 ng/mL Synonym(s): Remeron(R) Analysis by Gas Chromatography (GC) and Gas Chromatography/Mass Spectrometry (GC/MS) This test was developed and its performance characteristics determined by [facility]. It has not been cleared or approved by the [place] Food and Drug Administration. Testing performed at [facility] [address] [place] [phone] CLIA [id number] Test performed by: [facility], [address] [place] [address], unless otherwise specified. Performed at the [facility] Laboratory unless otherwise noted. Performed By: #### U TCAQT #### [facility] [address] [place] [address] NORFLUOXETINE [facility] Comment on above: Result Comment: NONE DET Unit: ng/mL Urine Reporting Limit: 100 ng/mL Synonym(s): Fluoxetine Metabolite Analysis by Gas Chromatography (GC) and Gas Chromatography/Mass Spectrometry (GC/MS) Performed By: #### U TCAQT #### [address] [address] NORTRIPTYLINE [facility] Comment on above: Result Comment: NONE DET Unit: ng/mL Urine Reporting Limit: 100 ng/mL Synonym(s): Amitriptyline Metabolite; Aventyl(R); Pamelor(R) Nortriptyline is a metabolite of Amitriptyline and is also available as an independent therapeutic agent. Less than 5% of a given dose is typically excreted as unchanged drug in 24-hour post-dose urine. Analysis by Gas Chromatography (GC) and Gas Chromatography/Mass Spectrometry (GC/MS) Performed By: #### U TCAQT #### [address] [address] PROTRIPTYLINE [facility] Comment on above: Result Comment: NONE DET Unit: ng/mL Urine Reporting Limit: 100 ng/mL Synonym(s): Vivactil(R) Substance(s) known to interfere with the identity and/or quantity of the reported result: Norcyclobenzaprine (Cyclobenzaprine metabolite) and Desmethylsertraline (Sertraline metabolite). Analysis by Gas Chromatography (GC) and Gas Chromatography/Mass Spectrometry (GC/MS) Performed By: #### U TCAQT #### [place] [address] [place] [address] TRAZODONE [facility] Comment on above: Result Comment: NONE DET Unit: mcg/mL Urine Reporting Limit: 0.20 mcg/mL Synonym(s): Desyrel(R) Analysis by Gas Chromatography (GC) and Gas Chromatography/Mass Spectrometry (GC/MS) Performed By: #### U TCAQT #### [place] [address] [place] [address] TRIMIPRAMINE [facility] Comment on above: Result Comment: NONE DET Unit: ng/mL Urine Reporting Limit: 100 ng/mL Synonym(s): Surmontil(R) Analysis by Gas Chromatography (GC) and Gas Chromatography/Mass Spectrometry (GC/MS) Performed By: #### U TCAQT #### [address] [address] URINE DRUG SCREENon 08-02-19 AMPHETAMINE/ECSTASY [facility] Comment on above: Result Comment: NEGA TIVE Performed at [address] [place] [address] Performed By: #### U DS #### [facility] [address] [place] [address] [address] BARBITURATE [facility] Comment on above: Result Comment: NEGA TIVE Performed at [address] [place] [address] Performed By: #### U DS #### [facility] [address] [place] [address] [facility] [address] [place] [address] [place] [address] BENZODIAZEPINE [facility] Comment on above: Result Comment: NEGA TIVE Performed at [address] [place] [address] Performed By: #### U DS #### [facility] [address] [place] [address] [facility] [address] [place] [address] COCAINE METABOLITES [facility] Comment on above: Result Comment: NEGA TIVE Performed at [facility] [address] [place] [address] Performed By: #### U DS #### [facility] [address] [place] [address] [facility] [address] [place] [address] METHADONE [facility] Comment on above: Result Comment: NEGA TIVE Performed at [facility] [address] [place] [address] Performed By: #### U DS #### [facility] [address] [place] [address] [facility] [address] [place] [address] OPIATE [facility] Comment on above: Result Comment: NEGA TIVE Performed at [facility] [address] [place] [address] Performed By: #### U DS #### [facility] [address] [place] [address] [facility] [address] [place] [address] OXYCODONE [facility] Comment on above: Result Comment: NEGA TIVE Performed at [facility] [address] [place] [address] Performed By: #### U DS #### [facility] [address] [place] [address] [facility] [address] [place] [address] PCP [facility] Comment on above: Result Comment: NEGA TIVE Performed at [facility] [address] [place] [address] Performed By: #### U DS #### [facility] [address] [place] [address] [facility] [address] [place] [address] THC/CANNABINOIDS [facility] Comment on above: Result Comment: NEGA TIVE Performed at [facility] [address] [place] [address] Performed By: #### U DS #### [facility] [address] [place] [address] [facility] [address] [place] [address] COMMENT [facility] Comment on above: Result Comment: Thes e Toxicological Screening Tests provide unconfirmed qualitative measurements to aid in treatment and diagnosis in cases of drug use or overdose. This test is used only for medical purposes. A positive result does not indicate or measure intoxication. For specific test performance or pathologist consultation, please contact the Laboratory. The following threshold concentrations are used for these analyses. Values at or above the threshold concentration are reported as Positive. Values below the threshold are reported as negative. Drug Screening Threshold THC/CANNABINOIDS 50 ng/ml METHADONE 300 ng/ml COCAINE METABOLITES 300 ng/ml BENZODIAZEPINE 300 ng/ml PCP 25 ng/ml OPIATE 300 ng/ml AMPHETAMINE/ECSTASY 1000 ng/ml BARBITURATE 200 ng/ml OXYCODONE 100 ng/ml Performed at [facility],[address] [place] [address] Performed By: #### U DS #### [address] [place] [address] [facility] [address] [place] [address] US KIDNEY/BLADDERon 03-04-20 21 [facility] [address] Cardiac Scoringon 021 CT Cardiac Scoring Normal [facility] [place] Work Phone: Laboratory - Chemistry and C hemistry - challengeon 11-25-2020 Albumin BCP dye [Mass/Vol] 4.3 g/dL 3.4 - 5.0 [facility] Work Phone: ALP [Catalytic activity/Vol] 86 U/L 33 - 110 [facility] Work Phone: ALT With P-5'-P [Catalytic activity/Vol] 116 U/L above high threshold 7 - 45 [facility] Work Phone: Comment on above: Patients treated wit h Sulfasalazine may generate falsely decreased results for ALT. Anion gap [Moles/Vol] 12 mmol/L 10 - 20 [facility] Work Phone: AST With P-5'-P [Catalytic activity/Vol] 107 U/L above high threshold 9 - 39 [facility] Work Phone: Bilirubin [Mass/Vol] 0.8 mg/dL 0.0 - 1.2 [facility] Work Phone: Calcium [Mass/Vol] 9.2 mg/dL 8.6 - 10.3 [facility] Work Phone: Chloride [Moles/Vol] 104 mmol/L 98 - 107 [facility] Work Phone: CO2 [Moles/Vol] 26 mmol/L 21 - 32 [facility] Work Phone: Creatinine [Mass/Vol] 0.97 mg/dL See Below [facility] Work Phone: Comment on above: Reference Range: 0.5 0 - 1.05 Glucose [Mass/Vol] 98 mg/dL 74 - 99 [facility] [employer] Work Phone: Potassium [Moles/Vol] 3.9 mmol/L 3.5 - 5.3 [facility] Work Phone: Protein [Mass/Vol] 7.3 g/dL 6.4 - 8.2 [facility] Work Phone: Sodium [Moles/Vol] 138 mmol/L 136 - 145 [facility] Work Phone: TSH Qn 1.84 m[IU]/L See Below [facility] Work Phone: Comment on above: Reference Range: 0.4 4 - 3.98 TSH testing is performed using different testing methodology at [facility] than at other [facility]. Direct result comparisons should only be made within the same method. Urea nitrogen [Mass/Vol] 12 mg[facility]dL - [facility]: Laboratory - Hematology and Cell countson 11-25-2020 Erythrocyte distribution width (RBC) [Ratio] 13.5 % See Below [facility]: Comment on above: Reference Range: 11. 5 - 14.5 Hematocrit (Bld) [Volume fraction] 43.2 % See Below [facility] [employer] Phone: Comment on above: Reference Range: 36. 0 - 46.0 Hemoglobin (Bld) [Mass/Vol] 14.2 g/dL See Below [facility] Phone: Comment on above: Reference Range: 12. 0 - 16.0 MCHC (RBC) [Mass/Vol] 32.9 g/dL See Below [facility] Work Phone: Comment on above: Reference Range: 32. 0 - 36.0 MCV (RBC) [Entitic vol] 95 fL 80 - 100 [facility] [employer] Phone: Platelets (Bld) [#/Vol] 299 10*3/uL 150 - 450 [facility] [employer] Phone: RBC (Bld) [#/Vol] 4.55 {x10E12/L} See Below [facility] Work Phone: Comment on above: Reference Range: 4.0 0 - 5.20 WBC (Bld) [#/Vol] 5.8 10*3/uL 4.4 - 11.3 [facility] Work Phone: Lipid Panelon 11-25-2020 Cholesterol [Mass/Vol] 169 mg/dL 0 - 199 [facility] [employer] Phone: Comment on above: . AGE DESIRABLE BORD LILIA HIGH HIGH 0-19 Y 0 - 169 170 - 199 >/= 200 20-24 Y 0 - 189 190 - 224 >/= 225 >24 Y 0 - 199 200 - 239 >/= 240 All ranges are based on fasting samples. Specific therapeutic targets will vary based on patient-specific cardiac risk.. Pediatric guidelines reference:Pediatrics 2011, 128(S5). Adult guidelines reference: NCEP ATPIII Guidelines, NANCY 2001, 258:2486-97. Venipuncture immediately after or during the administration of Metamizole may lead to falsely low results. Testing should be performed immediately prior to Metamizole dosing. Cholesterol in HDL [Mass/Vol] 34.9 mg/dL Abnormal [employer] Work Phone: Comment on above: . AGE VERY LOW LOW N ORMAL HIGH 0-19 Y < 35 < 40 40-45 ---- 20-24 Y ---- < 40 >45 ---- >24 Y ---- < 40 40-60 >60. Cholesterol in LDL [Mass/Vol] 100 mg/dL above high threshold 0 - 99 [employer] Phone: Comment on above: . NEAR BORD AGE BECKY RABLE OPTIMAL HIGH HIGH VERY HIGH 0-19 Y 0 - 109 --- 110-129 >/= 130 ---- 20-24 Y 0 - 119 --- 120-159 >/= 160 ---- >24 Y 0 - 99 100-129 130-159 160-189 >/=190. Cholesterol.total/Chol esterol in HDL [Mass ratio] 4.8 {ratio} [employer] Phone: Comment on above: REF VALUESDESIRABLE < 3.4HIGH RISK > 5.0 Triglyceride [Mass/Vol] 171 mg/dL above high threshold 0 - 149 [employer] Phone: Comment on above: . AGE DESIRABLE BORD LILIA HIGH HIGH VERY HIGH 0 D-90 D 19 - 174 ---- ---- ----91 D- 9 Y 0 - 74 75 - 99 >/= 100 ---- 10-19 Y 0 - 89 90 - 129 >/= 130 ---- 20-24 Y 0 - 114 115 - 149 >/= 150 ---- >24 Y 0 - 149 150 - 199 200- 499 >/= 500. Venipuncture immediately after or during the administration of Metamizole may lead to falsely low results. Testing should be performed immediately prior to Metamizole dosing. Lipid Panel 34 mg/dL 0 - 40 [employer] Phone: No Panel Informationon 11-25 >60 >60 [employer] Phone: Comment on above: CALCULATIONS OF NURA MATED GFR ARE PERFORMED USING THE MDRD STUDY EQUATION FOR THE IDMS-TRACEABLE CREATININE METHODS. CLIN CHEM 2007;53:766-72 [email or web address] 1: [email or web address] eb.[email or web address]?RetrieveTestByD ateTime?LjrouafRA=[email or web address]&Date=25-11-2020& Time=10%3a52%3a21%3a00 &TestType=ECG&Site=7&O utputType=PDF&Ext=PDF [facility] Work Phone: Normal sinus rhythm with sinus arrhythmia [facility] Work Phone: Borderline Abnormal Unive [facility] [employer] Work Phone: [phone] [facility] Work Phone: 200 1 [facility] Work Phone: 146 1 [facility] Work Phone: [phone] 1 [facility] Work Phone: 13 1 [facility] Work Phone: 52 1 [facility] Work Phone: 34 1 [facility] Work Phone: 45 1 [facility] Work Phone: [phone] 1 [facility] Work Phone: 370 1 [facility] Work Phone: 74 1 [facility] Work Phone: 148 1 [facility] Work Phone: 79 1 [facility] Work Phone: XR Chest PA and Lateralon IMPRESSION: No acute radiographic abnormality. Mounter Saxophones: PSCB Transcribe Date/Time: Oct 08 2020 3:02P Dictated by : NABOR SELF MD This examination was interpreted and the report reviewed and electronically signed by: NABOR SELF MD on Oct 08 2020 3:02PM [facility] DIVISION OF RADIOLOGY * * *Final Report* * * DATE OF EXAM: Oct 08 2020 2:34PM [id number] - XR CHEST 2V FRONTAL/LAT / PROCEDURE REASON: Cough * * * * Physician Interpretation * * * * EXAMINATION: CHEST RADIOGRAPH (2 VIEW FRONTAL & LATERAL) CLINICAL HISTORY: Cough MQ: XC2_6 EXAM DATE/TIME: 10/08/2020 2:34 PM COMPARISON: 12/30/2019 RESULT: Lines, tubes, and devices: None. Lungs and pleura: No consolidation. No lung mass. No pleural effusion. No pneumothorax. Cardiomediastinal silhouette: Normal cardiomediastinal silhouette. Bones and soft tissues: Unremarkable. DIVISION OF RADIOLOGY Provider, Joseph Barker - 10/08/2020 * * *Final Report* * * DATE OF EXAM: Oct 08 2020 2:34PM [id number] - XR CHEST 2V FRONTAL/LAT / PROCEDURE REASON: Cough * * * * Physician Interpretation * * * * EXAMINATION: CHEST RADIOGRAPH (2 VIEW FRONTAL & LATERAL) CLINICAL HISTORY: Cough MQ: XC2_6 EXAM DATE/TIME: 10/08/2020 2:34 PM COMPARISON: 12/30/2019 RESULT: Lines, tubes, and devices: None. Lungs and pleura: No consolidation. No lung mass. No pleural effusion. No pneumothorax. Cardiomediastinal silhouette: Normal cardiomediastinal silhouette. Bones and soft tissues: Unremarkable. IMPRESSION IMPRESSION: No acute radiographic abnormality. Mounter Sax[employer]: PSCB Transcribe Date/Time: Oct 08 2020 3:02P Dictated by : NABOR SELF MD This examination was interpreted and the report reviewed and electronically signed by: NABOR SELF MD on Oct 08 2020 3:02PM EST [facility] Radiology Study observation (narrative) [facility] XR Chest PA and LateralOrder ed By: [facility] Provider on 10-08-2020 [facility] Vital Signs Date Time Vital Sign Value Performing Clinician Faci lity 10-22-2023 13:04-0400 Body mass index (BMI) [Ratio] 30.84 kg/m2 Naif Giordano MD Work Phone: [facility] 10-22-2023 13:04040 Body temperature 97.5 [degF] Naif Giordano MD Work Phone: [facility] 10-22-2023 13:04-0400 Body weight 81.5 kg Naif Giordano MD Work Phone: [facility] 10-22-2023 13:04-0400 Diastolic blood pressure 82 mm[Hg] Naif Giordano MD Work Phone: [facility] 10-22-2023 13:04-0400 Heart rate 82 /min Naif Giordano MD Work Phone: [facility] 10-22-2023 13:04-0400 Respiratory rate 16 /min Naif Giordano MD Work Phone: [facility] 10-22-2023 13:04-0400 SaO2% (BldA) [Mass fraction] 98 % Naif Giordano MD Work Phone: [facility] 10-22-2023 13:04-0400 Systolic blood pressure 148 mm[Hg] Naif Giordano MD Work Phone: [facility] 10-09-2023 08:36-0400 Body temperature 97.3 [degF] Roland Praisler-Wood [employer] Work Phone: [facility] 10-09-2023 08:36-0400 Body weight 79 kg Roland Praisler-Wood [employer] Work Phone: [facility] 10-09-2023 08:36-0400 Diastolic blood pressure 88 mm[Hg] Roland Praisler-Wood [employer] PROGRAM[employer] Work Phone: [facility] 10-09-2023 08:36-0400 Heart rate 60 /min Roland Praisler-Wood [employer] PRO[employer] Work Phone: [facility] 10-09-2023 08:36-0400 Respiratory rate 18 /min Roland Praisler-Wood [employer] PRO[employer] Work Phone: [facility] 10-09-2023 08:36-0400 SaO2% (BldA) [Mass fraction] 97 % Roland Praisler-Wood [employer] Work Phone: [facility] 10-09-2023 08:36-0400 Systolic blood pressure 128 mm[Hg] Roland Praisler-Wood [employer] PRO[employer] Work Phone: [facility] 09-22-2023 08:26-0400 Body temperature 97 [degF] Justyn Maldonado [employer] Work Phone: [facility] 09-22-2023 08:26-0400 Body weight 78.3 kg Justyn Maldonado [employer]TL PROGRAM[employer] Work Phone: [facility] 09-22-2023 08:26-0400 Diastolic blood pressure 90 mm[Hg] Justyn Maldonado [employer] PRO[employer] Work Phone: [facility] 09-22-2023 08:26-0400 Heart rate 84 /min Justyn Maldonado [employer] Work Phone: [facility] 09-22-2023 08:26-0400 Respiratory rate 21 /min Justyn Maldonado [employer] PROGRAM[employer] Work Phone: [facility] 09-22-2023 08:26-0400 SaO2% (BldA) [Mass fraction] 99 % Justyn Maldonado [employer] PROGRAM[employer] Work Phone: [facility] 09-22-2023 08:26-0400 Systolic blood pressure 122 mm[Hg] Justyn Maldonado [employer] PROGRAM[employer] Work Phone: [facility] 08-06-2023 14:34-0500 Body mass index (BMI) [Ratio] 29.74 kg/m2 Lul de Capite [employer] Work Phone: [facility] 08-06-2023 14:34-0500 Body weight 78.6 kg Lul de Capite [employer] Work Phone: [facility] 08-06-2023 14:34-0500 Diastolic blood pressure 90 mm[Hg] Lul de Capite [employer] Work Phone: [facility] 08-06-2023 14:34-0500 Heart rate 66 /min Lul de Capite [employer] Work Phone: [facility] 08-06-2023 14:34-0500 SaO2% (BldA) [Mass fraction] 94 % Lul Chin [employer] Work Phone: [facility] 08-06-2023 14:34-0500 Systolic blood pressure 162 mm[Hg] Lul Chin [employer] Work Phone: [facility] 07-03-2023 15:03-0500 Body height 162.6 cm Blayne Peguero MD Work Phone: [facility] 07-03-2023 15:03-0500 Body mass index (BMI) [Ratio] 29.35 kg/m2 Blayne Peguero MD Work Phone: [facility] 07-03-2023 15:03-0500 Body temperature 97.11 [degF] Blayne Peguero MD Work Phone: [facility] 07-03-2023 15:03-0500 Body weight 77.56 kg Blayne Peguero MD Work Phone: [facility] 07-03-2023 15:03-0500 Diastolic blood pressure 80 mm[Hg] Blayne Peguero MD Work Phone: [facility] 07-03-2023 15:03-0500 Heart rate 106 /min Blayne Peguero MD Work Phone: [facility] 07-03-2023 15:03-0500 SaO2% (BldA) [Mass fraction] 97 % Blayne Peguero MD Work Phone: [facility] 07-03-2023 15:03-0500 Systolic blood pressure 130 mm[Hg] Blayne Peguero MD Work Phone: [facility] 05-28-2023 17:15-0500 Heart rate 73 /min Main Reed MD Work Phone: [facility] 05-28-2023 17:15-0500 SaO2% (BldA) [Mass fraction] 95 % Main Reed MD Work Phone: [facility] 05-28-2023 17:00-0500 Diastolic blood pressure 90 mm[Hg] Main Reed MD Work Phone: [facility] 05-28-2023 17:00-0500 Respiratory rate 20 /min Main Reed MD Work Phone: [facility] 05-28-2023 17:00-0500 Systolic blood pressure 143 mm[Hg] Main Reed MD Work Phone: [facility] 05-28-2023 14:01-0500 Body temperature 97.11 [degF] Main Reed MD Work Phone: [facility] 05-28-2023 10:40-0500 Body height 162.6 cm Main Reed MD Work Phone: [facility] 05-28-2023 10:40-0500 Body mass index (BMI) [Ratio] 27.81 kg/m2 Main Reed MD Work Phone: [facility] 05-28-2023 10:40-0500 Body weight 73.48 kg Main Reed MD Work Phone: [facility] 05-14-2023 19:56-0500 Diastolic blood pressure 76 mm[Hg] Verona Cook MD Work Phone: [facility] 05-14-2023 19:56-0500 Heart rate 81 /min Verona Cook MD Work Phone: [facility] 05-14-2023 19:56-0500 SaO2% (BldA) [Mass fraction] 98 % Verona Cook MD Work Phone: [facility] 05-14-2023 19:56-0500 Systolic blood pressure 168 mm[Hg] Verona Cook MD Work Phone: [facility] 05-14-2023 19:28-0500 Respiratory rate 16 /min Verona Cook MD Work Phone: [facility] 05-14-2023 16:11-0500 Body height 162.6 cm Verona Cook MD Work Phone: [facility] 05-14-2023 16:11-0500 Body mass index (BMI) [Ratio] 27.81 kg/m2 Verona Cook MD Work Phone: [facility] 05-14-2023 16:11-0500 Body weight 73.48 kg Verona Cook MD Work Phone: [facility] 04-05-2023 15:07-0400 Body height 162.6 cm Janny Bai MD Work Phone: [facility] 04-05-2023 15:07-0400 Body mass index (BMI) [Ratio] 27.64 kg/m2 Janny Bai MD Work Phone: [facility] 04-05-2023 15:07-0400 Body weight 73.03 kg Janny Bai MD Work Phone: [facility] 04-05-2023 15:07-0400 Diastolic blood pressure 96 mm[Hg] Janny Bai MD Work Phone: [facility] 04-05-2023 15:07-0400 Heart rate 73 /min Janny Bai MD Work Phone: [facility] 04-05-2023 15:07-0400 Systolic blood pressure 186 mm[Hg] Janny Bai MD Work Phone: [facility] 03-20-2023 14:46-0400 Body height 163.8 cm Blayne Peguero MD Work Phone: [facility] 03-20-2023 14:46-0400 Body mass index (BMI) [Ratio] 27.55 kg/m2 Blayne Peguero MD Work Phone: [facility] 03-20-2023 14:46-0400 Body temperature 96.91 [degF] Blayne Peguero MD Work Phone: [facility] 03-20-2023 14:46-0400 Body weight 73.94 kg Blayne Peguero MD Work Phone: [facility] 03-20-2023 14:46-0400 Diastolic blood pressure 74 mm[Hg] Blayne Peguero MD Work Phone: [facility] 03-20-2023 14:46-0400 Heart rate 60 /min Blayne Peguero MD Work Phone: [facility] 03-20-2023 14:46-0400 SaO2% (BldA) [Mass fraction] 97 % Blayne Peguero MD Work Phone: [facility] 03-20-2023 14:46-0400 Systolic blood pressure 126 mm[Hg] Blayne Peguero MD Work Phone: [facility] 03-14-2023 11:59-0400 Body temperature 97.16 [degF] Haitham Kousa Other Phone: [facility] 03-14-2023 11:59-0400 Diastolic blood pressure 104 mm[Hg] Haitham Kousa Other Phone: [facility] 03-14-2023 11:59-0400 Heart rate 56 /min Haitham Kousa Other Phone: [facility] 03-14-2023 11:59-0400 Respiratory rate 18 /min Haitham Kousa Other Phone: [facility] 03-14-2023 11:59-0400 SaO2% (BldA) [Mass fraction] 96 % Haitham Kousa Other Phone: [facility] 03-14-2023 11:59-0400 Systolic blood pressure 162 mm[Hg] Haitham Kousa Other Phone: [facility] 08-23-2022 09:30-0500 Body height 163.83 cm ROSE JEAN Other [facility] [employer] Other 08-23-2022 09:30-0500 Body mass index (BMI) [Ratio] 29.91 kg/m2 ROSEMADELYN JEAN Other [facility] [employer] Other 08-23-2022 09:30-0500 Body temperature 96.6 [degF] ROSE JEAN Other [facility] [employer] Other 08-23-2022 09:30-0500 Body weight 80.29 kg ROSE JEAN Other [facility] [employer] Other 08-23-2022 09:30-0500 Diastolic blood pressure 100 mm[Hg] ROSE JEAN Other [facility] [employer] Other 08-23-2022 09:30-0500 Heart rate 76 /min ROSE JEAN Other [facility] [employer] Other 08-23-2022 09:30-0500 Respiratory rate 18 /min ROSEMADELYN JEAN Other [facility] [employer] Other 08-23-2022 09:30-0500 Systolic blood pressure 142 mm[Hg] ROSE JEAN Other [facility] [employer] Other 04-05-2022 12:00-0400 Body height 163.83 cm AIDAN SHAH Other [facility] [employer] Other 04-05-2022 12:00-0400 Body mass index (BMI) [Ratio] 32.44 kg/m2 AIDAN SHAH Other [facility] [employer] Other 04-05-2022 12:00-0400 Body temperature 98 [degF] AIDAN SHAH Other [facility] [employer] Other 04-05-2022 12:00-0400 Body weight 87.09 kg AIDAN SHAH Other [facility] [employer] Other 04-05-2022 12:00-0400 Diastolic blood pressure 106 mm[Hg] AIDAN SHAH Other [facility] [employer] Other 04-05-2022 12:00-0400 Heart rate 74 /min AIDAN SHAH Other [facility] [employer] Other 04-05-2022 12:00-0400 Respiratory rate 18 /min AIDAN SHAH Other [facility] [employer] Other 04-05-2022 12:00-0400 Systolic blood pressure 192 mm[Hg] AIDAN SHAH Other [facility] [employer] Other 03-21-2022 12:00-0400 Body height 163.83 cm AIDAN SHAH Other [facility] [employer] Other 03-21-2022 12:00-0400 Body mass index (BMI) [Ratio] 27.88 kg/m2 AIDAN SHAH Other [facility] [employer] Other 03-21-2022 12:00-0400 Body temperature 98 [degF] AIDAN LÓPEZUS Other [facility] [employer] Other 03-21-2022 12:00-0400 Body weight 74.84 kg AIDAN SHAH Other [facility] [employer] Other 03-21-2022 12:00-0400 Diastolic blood pressure 94 mm[Hg] AIDAN SHAH Other [employer] [facility] [employer] Other 03-21-2022 12:00-0400 Heart rate 67 /min AIDAN SHAH Other [facility] [employer] Other 03-21-2022 12:00-0400 Respiratory rate 21 /min AIDAN SHAH Other [facility] [employer] Other 03-21-2022 12:00-0400 Systolic blood pressure 164 mm[Hg] AIDAN SHAH Other [facility] [employer] Other 03-15-2022 23:12-0400 Body height 172.72 cm DO Christopher Longinow DO [employer] 03-15-2022 23:12-0400 Body mass index (BMI) [Ratio] 29.4 kg/m2 DO Christopher Longinow DO [employer] 03-15-2022 23:12-0400 Body weight 87.9 kg DO Christopher Longinow DO [employer] 02-28-2022 13:30-0400 Body height 163.83 cm ELIZABETH LOWE Other [facility] [employer] Other 02-28-2022 13:30-0400 Body mass index (BMI) [Ratio] 27.88 kg/m2 ELIZABETH LOWE Other [employer] [facility] [employer] Other 02-28-2022 13:30-0400 Body temperature 97 [degF] ELIZABETH LOWE Other [facility] [employer] Other 02-28-2022 13:30-0400 Body weight 74.84 kg ELIZABETH LOWE Other [facility] [employer] Other 02-28-2022 13:30-0400 Diastolic blood pressure 100 mm[Hg] ELIZABETH LOWE Other [facility] [employer] Other 02-28-2022 13:30-0400 Systolic blood pressure 178 mm[Hg] ELIZABETH LOWE Other [facility] [employer] Other 10-28-2021 12:11-0400 Body height 162.56 cm H J [employer] Work Phone: [place] [id number] DO Work Phone: 10-28-2021 12:11-0400 Body mass index (BMI) [Ratio] 33.82 kg/m2 H J [employer] Work Phone: [place] [address] DO Work Phone: 10-28-2021 12:11-0400 Body surface area Derived from formula 1.94 m2 H J Kousa Work Phone: [place] [address] DO Work Phone: 10-28-2021 12:11-0400 Body temperature 97.6 [degF] H J Kousa Work Phone: [place] [address] DO Work Phone: 10-28-2021 12:11-0400 Body weight 89.36 kg H J Kousa Work Phone: [place] [address] DO Work Phone: 10-17-2021 09:42-0400 Body height 162.56 cm H J Kousa Work Phone: [facility] Work Phone: 10-17-2021 09:42-0400 Body mass index (BMI) [Ratio] 33.99 kg/m2 H J Kousa Work Phone: [facility] Work Phone: 10-17-2021 09:42-0400 Body surface area Derived from formula 1.95 m2 H J Kousa Work Phone: [facility] Work Phone: 10-17-2021 08:13-0400 Body height 10.16 cm H J Kousa Work Phone: [facility] Work Phone: 10-17-2021 08:13-0400 Body mass index (BMI) [Ratio] 8700.65 kg/m2 H J Kousa Work Phone: [facility] Work Phone: 10-17-2021 08:13-0400 Body surface area Derived from formula 0.26 m2 H J Kousa Work Phone: [facility] Work Phone: 10-17-2021 08:13-0400 Body weight 89.81 kg H J Kousa Work Phone: [facility] Work Phone: 10-17-2021 08:13-0400 Diastolic blood pressure 84 mm[Hg] H J Kousa Work Phone: [facility] Work Phone: 10-17-2021 08:13-0400 Heart rate 84 /min H J Kousa Work Phone: [facility] Work Phone: 10-17-2021 08:13-0400 Respiratory rate 18 /min H J Kousa Work Phone: [facility] Work Phone: 10-17-2021 08:13-0400 SaO2% (BldA) [Mass fraction] 98 % H J Kousa Work Phone: [facility] Work Phone: 10-17-2021 08:13-0400 Systolic blood pressure 148 mm[Hg] H J Kousa Work Phone: [facility] Work Phone: 11-25-2020 11:01-0400 Diastolic blood pressure 96 mm[Hg] H J Kousa Work Phone: [facility] Work Phone: 11-25-2020 11:01-0400 Systolic blood pressure 158 mm[Hg] H J Kousa Work Phone: [facility]Br[facility]kt [facility] Work Phone: 11-25-2020 10:53-0400 Body height 162.56 cm H J Kousa Work Phone: [facility]hy[facility]ly [facility] Work Phone: 11-25-2020 10:53-0400 Body mass index (BMI) [Ratio] 28.32 kg/m2 H J Kousa Work Phone: [facility] Work Phone: 11-25-2020 10:53-0400 Body surface area Derived from formula 1.8 m2 H J Kousa Work Phone: [facility]Knlfgbycwh-Nlgj [facility] Work Phone: 11-25-2020 10:53-0400 Body weight 74.84 kg H J Kousa Work Phone: MH[facility]Jrbtskcexb-Ucyk [facility] Work Phone: 11-25-2020 10:53-0400 Diastolic blood pressure 99 mm[Hg] H J Kousa Work Phone: CQ[facility]zqunks[facility] Work Phone: 11-25-2020 10:53-0400 Heart rate 84 /min H J Kousa Work Phone: CA[facility]Vldsgajrye[facility]Awcf [facility] Work Phone: 11-25-2020 10:53-0400 SaO2% (BldA) [Mass fraction] 95 % H J Kousa Work Phone: IV[facility]Neixchnkfh-Bjwx [facility] Work Phone: 11-25-2020 10:53-0400 Systolic blood pressure 154 mm[Hg] H J Kousa Work Phone: WC-Xpttxfbawr-Qgiz [facility] Work Phone: Encounters Encounter Date Encounter Type Care Provider Facility Start: 10-22-2023 End: 10-22-2023 [facility] Facility:[facility] Start: 10-22-2023 End: 10-22-2023 Patient encounter procedure Naif Giordano MD Work Phone: [facility] Comment on above: Acute bilateral low back pain with right-sided sciatica (Primary Dx) Start: 10-09-2023 End: 10-09-2023 [facility] Facility:[facility] Start: 10-09-2023 End: 10-09-2023 Patient encounter procedure Roland Mcdaniel ETL PROGRAMMER.[employer]IAN [employer] Work Phone: [facility] Comment on above: URI, acute (Primary Dx); Sore throat Start: 09-29-2023 End: 09-29-2023 [facility] Facility:[facility] Start: 09-22-2023 Telephone encounter Justyn lund ETL PROGRAMMER.[employer]IAN [employer] Work Phone: [facility] Comment on above: Results Start: 09-22-2023 End: 09-22-2023 ambulatory JUSTYN MALDONADO Facility:[facility] Start: 09-22-2023 End: 09-22-2023 Subsequent hospital visit by physician Barb [facility] Work Phone: Radiology Comment on above: Injury of finger of right hand, initial encounter [S69.91XA] Start: 09-22-2023 End: 09-22-2023 Office outpatient visit 15 minutes Justyn Maldonado ETL PROGRAMMER.[employer] Work Phone: [facility] Comment on above: Injury of finger of right hand, initial encounter (Primary Dx) Start: 08-31-2023 End: 08-31-2023 Subsequent hospital visit by physician Darby [facility] Comment on above: Heart palpitations Start: 08-31-2023 End: 08-31-2023 ambulatory [facility] Start: 08-21-2023 Telephone encounter No Pcp ETL PROGRAMMER NOC Comment on above: Follow Up Phone Call (Post Discharge F/U - attempt made. No answer.) Start: 08-16-2023 End: 08-16-2023 ambulatory MYNOR LYNN Facility:[facility] Start: 08-06-2023 End: 08-06-2023 Office outpatient new 45 minutes Lul Chin ETL PROGRAMMER-[employer]IAN [employer] Work Phone: [facility] Office Building Comment on above: Heart palpitations ( Primary Dx); Essential hypertension Start: 08-06-2023 End: 08-06-2023 ambulatory [facility] Start: 07-09-2023 End: 07-09-2023 ambulatory [facility] Ambulatory Start: 07-03-2023 End: 07-04-2023 ambulatory [facility] Ambulatory Start: 07-03-2023 End: 07-03-2023 Office outpatient visit 15 minutes Blayne Peguero MD Work Phone: [facility] Comment on above: Other acute pulmonar y embolism without acute cor pulmonale (CMS/HCC) (Primary Dx); Need for pneumococcal vaccine Start: 06-07-2023 ambulatory [facility] Ambulatory Start: 06-07-2023 End: 06-07-2023 Postop follow up visit related to original px Main Reed MD Work Phone: [facility] Comment on above: Postop check (Primar y Dx) Start: 06-06-2023 End: 06-06-2023 Evaluation and management of inpatient [facility] Pulm Fct 1 Work Phone: [facility] Pulmonary Function Lab Comment on above: History of pulmonary embolism (Primary Dx) Start: 06-01-2023 End: 06-11-2023 Evaluation and management of inpatient ZAINAB CROFT Facility:[facility] Start: 05-28-2023 End: 05-28-2023 ambulatory [facility] Start: 05-28-2023 End: 05-28-2023 Subsequent hospital visit by physician Main Reed MD Work Phone: [facility] [place] Comment on above: Adnexal mass (Primar y Dx); Myofascial pain Start: 05-22-2023 End: 05-22-2023 ambulatory [facility] Ambulatory Start: 05-22-2023 End: 05-22-2023 Patient encounter procedure Urology [address] Comment on above: Urinary incontinence in female (Primary Dx) Start: 05-14-2023 End: 05-14-2023 Emergency department patient visit Verona Cook MD Work Phone: [facility] Emergency Medicine Comment on above: Kidney stone (Primar y Dx); Abdominal pain, unspecified abdominal location Start: 04-27-2023 End: 04-27-2023 ambulatory [facility] Start: 04-24-2023 End: 04-27-2023 Patient encounter procedure Janny Bai MD Work Phone: [facility] Comment on above: Esophageal dysphagia ; Colon cancer screening Start: 04-05-2023 End: 04-05-2023 ambulatory [facility] Ambulatory Start: 04-05-2023 End: 04-05-2023 Office outpatient new 30 minutes Janny Bai MD Work Phone: [facility] Comment on above: Colon cancer screeni ng (Primary Dx); Esophageal dysphagia Start: 03-28-2023 SURGGRH, Provider: Main Reed, Status: Pen, Time: 7:30 AM Francisco Murguia Work Phone: [facility] Work Phone: Start: 03-26-[address] Main Reed Facilit y:[id number] Start: 03-26-2023 Office outpatient vi sit 40 minutes H Grace [facility] Work Phone: [facility] Work Phone: Start: 03-26-2023 Patient encounter procedure H Grace Murguia Work Phone: [facility] Work Phone: Start: 03-26-2023 End: 03-27-2023 ambulatory [facility] Start: 03-26-2023 End: 03-27-2023 Encounter for general adult medical examination without abnormal findings [facility] Start: 03-21-[address] German Quezada [facility] Facility:[id number] Start: 03-20-2023 End: 03-21-2023 ambulatory [facility] Ambulatory Start: 03-20-2023 End: 03-21-2023 Encounter for general adult medical examination without abnormal findings [facility] Ambulatory Start: 03-20-2023 End: 03-20-2023 Initial preventive medicine new patient 40-64yrs Blayne Peguero MD Work Phone: [facility] Comment on above: Breast cancer screen ing by mammogram (Primary Dx); Encounter for annual physical exam; Colon cancer screening; Arthritis; Moderate asthma without complication, unspecified whether persistent Start: 03-20-2023 End: 03-20-2023 Patient encounter procedure Blayne Peguero MD Work Phone: [facility] Work Phone: Start: 03-09-2023 End: 03-14-2023 Evaluation and management of inpatient Dr. Konrad Delgado Facility: Start: 03-08-2023 End: 03-14-2023 Evaluation and management of inpatient Konradwayne Pastor Obs 2 Rm 219 [address] B Start: 08-23-2022 End: 08-23-2022 ambulatory ROSE JEAN Other [facility] 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 Other Start: 04-05-2022 Office outpatient vi sit 15 minutes [facility] Start: 04-04-2022 End: 04-04-2022 ambulatory AIDAN LEMONS Other [facility] Other Start: 04-04-2022 Telephone encounter [facility]EMONS [facility] Start: 03-21-2022 End: 03-21-2022 ambulatory AIDAN SHAH Other [facility] Other Start: 03-21-2022 Office outpatient vi sit 15 minutes [facility] SHAH [facility] Start: 03-15-2022 End: 03-16-2022 ambulatory Yemi Toribio Facility:UNKNOWN Start: 02-28-2022 (TELEVNP) Televisit with HAND SURGEON ELIZABETH LOWE [facility] Start: 02-28-2022 (X-RAY) X-RAY Inhouse [facility]ETH LOWE [facility] Start: 02-28-2022 End: 02-28-2022 Refill Adriana Martinez MD Work Phone: Pulmonary Medicine Comment on above: Refill Request Start: 02-27-2022 Refill Adriana Curtis Work Phone: Pulmonary Medicine Comment on above: Refill Request Start: 02-21-2022 ambulatory Bárbara Campuzano ams ETL PROGRAMMER.LIBR[employer]IAN [employer] Work Phone: Telemedicine Comment on above: Treatment not availa ble (Primary Dx) Start: 10-28-2021 NPV, Provider: Keo Brown, Status: Pen, Time: 11:30 AM H J Kousa Work Phone: [facility] [phone] DO Work Phone: Start: 10-28-2021 DUALAUDIO, Provider: Lucila Davis, Status: Pen, Time: 11:00 AM H J Kousa Work Phone: [facility] [phone] DO Work Phone: Start: 10-28-2021 Patient encounter procedure H J Kousa Work Phone: [facility] 103 DO Work Phone: Start: 10-26-2021 Chart Update H J Kousa Work Phone: [facility] [phone] DO Work Phone: Start: 10-18-2021 ambulatory Riri Matthew MD Work Phone: Urology Start: 10-17-2021 Office outpatient ne w 45 minutes H J Kousa Work Phone: [facility] 2300 Work Phone: Start: 10-04-2021 ambulatory Riri Matthew MD Work Phone: Urology Start: 09-29-2021 ambulatory Marin ortiz MD Work Phone: Urology Comment on above: Question regarding U S ABD RT UPPER QUADRANT Start: 09-29-2021 Patient encounter procedure Marin Gutierrez MD Work Phone: Urology Start: 09-28-2021 ambulatory Bárbara Escudero RN [facility] Comment on above: UTI Start: 09-28-2021 Patient encounter procedure Marin Gutierrez MD Work Phone: Urology Start: 09-26-2021 End: 09-26-2021 Patient encounter procedure Marin Gutierrez MD Work Phone: Urology Comment on above: Kidney stones (Prima ry Dx) Start: 09-25-2021 ambulatory Adriana Curtis Work Phone: Pulmonary Medicine Comment on above: Make apt Start: 08-02-2021 ambulatory KIMBERLY MURGUIA Fa cility:UNKNOWN Start: 03-04-2021 End: 03-04-2021 Subsequent hospital visit by physician [facility] Radiology Comment on above: Renal calculus, righ t [N20.0] Start: 01-20-2021 ECHO, Provider: GILBERTO ORD ECHOCARDIOGRAM 1,CHCECHO 1, Status: Pen, Time: 8:00 AM H [facility] Work Phone: [facility] Work Phone: Start: 01-19-2021 Chart Update H J [employer] Work Phone: DZ[facility]Urymdponfm[facility]Rqwbsan Work Phone: Start: 12-09-2020 AUDIT H J [employer] Work Phone: [facility]Ogkmdeodrk[facility]gkjnbd Work Phone: Start: 11-25-2020 Current tobacco non- user cad cap copd pv dm H J [employer] Work Phone: XI-Izqpvqovbs-Codpcfg [facility] Work Phone: Start: 10-08-2020 End: 10-08-2020 Subsequent hospital visit by physician Xr [facility] Work Phone: Radiology Comment on above: Cough [R05] Start: 04-13-2015 Physical examination ELIZABETH HOOVER Other [facility]. Other DO Yemi Toribio DO [facility] Procedures Date Procedure Procedure Detail Performing Clinician Start: 10-09-2023 STREP A MOLECULAR (POC) [facility] Provider Start: 09-22-2023 Radex fingr minimum 2 views Justyn bassett ETL PROGRAMMER.LIBR[employer]IAN [employer] Work Phone: Start: 08-31-2023 HOLTER OR EVENT WASTEWATER [employer]ANT CIVIL ENGINEER LUL MARIE Start: 07-03-2023 PNEUMOCOCCAL CONJUGATE VACCINE 20-VALENT IM BLAYNE PEGUERO Start: 06-07-2023 Lipid 1996 panel - Serum or Plasma No Pc p ETL PROGRAMMER Start: 06-06-2023 Noninvasive ear/pulse oximetry multiple deter Melinda Mcqueen ETL PROGRAMMER.LIBR[employer]IAN [employer] Work Phone: Start: 05-29-2023 ECG 12-LEAD MAIN REED Start: 05-29-2023 Ecg routine ecg w/least 12 lds trcg only w/o i&r Jean Schreiber DO Work Phone: Start: 05-28-2023 TROPONIN SERIES- (INITIAL, 1 HR) MAIN TRAN Start: 05-28-2023 Assay of troponin quantitative Jean maradiaga DO Work Phone: Start: 05-28-2023 PULSE OXIMETRY, CONTINUOUS MAIN REED Start: 05-28-2023 SURGICAL PATHOLOGY EXAM MAIN REED Start: 05-28-2023 PULSE OXIMETRY, CONTINUOUS Jean Schreiber DO Work Phone: Start: 05-28-2023 DISCHARGE PATIENT MAIN REED Start: 05-28-2023 Level iv surg pathology gross&microscopic exam Main Reed MD Work Phone: Start: 05-28-2023 End: 05-28-2023 Oophorectomy partial/total uni/bi Main Reed MD Work Phone: Start: 05-28-2023 FULL CODE MAIN REED Start: 05-28-2023 PLACE IN OUTPATIENT/HOSPITAL AMBULATORY SURGERY MAIN REED Start: 05-22-2023 Urnls dip stick/tablet rgnt non-auto w/o micrscp Melinda Perez MD Work Phone: Start: 05-14-2023 URINALYSIS WITH REFLEX MICROSCOPIC RACHE L DE CAPITE Start: 05-14-2023 CT ABDOMEN PELVIS WO IV CONTRAST LUL DE CAPITE Start: 05-14-2023 INFLUENZA A AND B PCR LUL DE CAPITE Start: 05-14-2023 RSV PCR LUL DE CAPITE Start: 05-14-2023 SARS-COV-2 PCR, SYMPTOMATIC [facility] P[facility] Start: 05-14-2023 XR CHEST 1 VIEW LUL DE CAPITE Start: 05-14-2023 CBC W Auto Differential panel - Blood LUL DE CAPITE Start: 05-14-2023 Comprehensive metabolic 2000 panel - Serum or Plasma LUL DE CAPITE Start: 05-14-2023 Lactate [Moles/volume] in Serum or Plasma LUL DE CAPITE Start: 05-14-2023 Lipase [Enzymatic activity/volume] in Serum or Plasma LUL DE CAPITE Start: 05-14-2023 TROPONIN I, HIGH SENSITIVITY [facility] Start: 05-14-2023 ECG 12-LEAD LUL DE CAPITE Start: 05-14-2023 Urnls dip stick/tablet rgnt auto w/o microscopy Mercedes Azul ETL PROGRAMMER-[employer]IAN [employer] Work Phone: Start: 05-14-2023 Ct abdomen & pelvis w/o contrast material Mercedes Azul ETL PROGRAMMER-[employer] Work Phone: Start: 05-14-2023 Influenza virus A and B RNA [Identifier] in Unspecified specimen by ANDRY with probe detection Mercedes Azul ETL PROGRAMMER-[employer] Work Phone: Start: 05-14-2023 Respiratory syncytial virus RNA [Presence] in Respiratory specimen by ANDRY with probe detection Mercedes Azul ETL PROGRAMMER-[employer] Work Phone: Start: 05-14-2023 SARS-CoV-2 (COVID-19) RNA [Presence] in Respiratory specimen by ANDRY with probe detection Mercedes Azul ETL PROGRAMMER-[employer]IAN [employer]RARY Work Phone: Start: 05-14-2023 Radiologic exam chest single view Willia pau Azul ETL PROGRAMMER-[facility] Work Phone: Start: 05-14-2023 Comprehensive metabolic panel Mercedes Azul ETL PROGRAMMER-[facility] Work Phone: Start: 05-04-2023 Colonoscopy Janny Bai MD Work Phone: Start: 04-27-2023 Colonoscopy NA KOUSA Start: 04-27-2023 Esophagogastroduodenoscopy NA KOUSA Start: 03-26-2023 Hemoglobin A1c/Hemoglobin.total in Blood NA KOUSA Start: 03-26-2023 HEPATITIS C ANTIBODY NA KOUSA Start: 03-26-2023 HIV 1/2 ANTIGEN/ANTIBODY SCREEN WIH REFLEX TO CONFIRMATION NA KOUSA Start: 03-26-2023 Lipid panel NA KOUSA Start: 03-26-2023 VITAMIN D 25-HYDROXY,TOTAL NA KOUSA Start: 03-26-2023 Lipid 1996 panel - Serum or Plasma Richi Bai MD Work Phone: Start: 03-11-2023 End: 03-11-2023 EKG impression Zeeshan Matthews Start: 03-08-2023 End: 03-08-2023 EKG impression Zeeshan Matthews Start: 09-26-2021 Urnls dip stick/tablet rgnt auto w/o microscopy Marin Gutierrez MD Work Phone: Start: 03-04-2021 Us retroperitoneal real time w/image complete Marin Gutierrez MD Work Phone: Start: 11-25-2020 Lipid 1996 panel - Serum or Plasma Blayne Peguero MD Work Phone: Start: 10-08-2020 Radiologic exam chest 2 views Adriana beltran MD Work Phone: Start: 11-01-2018 Mammography Blayne Peguero MD Work Phone: Start: 03-01-2017 Completed VAG HYST INCLUDING T/O, on 03/01/2017 10:59 AM DO Yemi Toribio DO Start: 12-25-2016 Microscopic observation [Identifier] in Cervix by Cyto stain Blayne Peguero MD Work Phone: Start: 12-09-2015 Adult depression screening assessment Adriana Martinez MD Work Phone: Start: 04-03-2012 Colonoscopy Bárbara Chan ETL PROGRAMMER.LIBR[employer]IAN [employer]RARY Work Phone: Start: 02-15-2012 Lipid 1996 panel - Serum or Plasma Us 1 Plan of Treatment Date Care Activity Detail Author Start: 05-04-2033 Screening for malignant neoplasm of colon [facility] Start: 03-21-2032 DTaP/Tdap/Td Vaccines (3 - Td or Tdap) DTaP/Tdap/Td Vaccines (3 - Td or Tdap) [facility] Start: 03-21-2032 Urine microalbumin profile DTaP,Tdap,Td Vaccine (3 - Td or Tdap) [facility] Start: 06-07-2028 Lipid panel Lipid Screening [facility] Start: 03-26-2028 Lipid 1996 panel - Serum or Plasma Lipid Screening [facility] Start: 03-26-2028 Lipid panel Lipid Panel [facility] Start: 2026 Zoster Vaccines (1 of 2) Zoster Vaccines (1 of 2) [facility] Start: 08-17-2026 Diabetes Screening Diabetes Screening [facility] Start: 06-06-2026 Diabetes Screening Diabetes Screening [facility] Start: 11-25-2025 Lipid panel Lipid Panel [facility] Start: 03-26-2024 Diabetes mellitus screening Diabetes Screening [facility] Start: 03-21-2024 Yearly Adult Physical Yearly Adult Physical [facility] Start: 03-02-2024 Covid-19 Vaccine () Covid-19 Vaccine () [facility] Start: 03-02-2024 Covid-19 Vaccine (3 - 2024-25 season) Covid-19 Vaccine ( season) [facility] Start: 03-02-2024 Influenza vaccination Influenza Vaccine (#1) [facility] Start: 12-03-2023 End: 12-03-2023 Patient encounter procedure 12/03/2023 9:00 AM EDT Office Visit Cardiology [address] [place] [address] Blayne Guerra MD [address] [place] [address] Elevated BP Cardiology Comment on above: Elevated BP Start: 12-03-2023 End: 12-03-2023 ambulatory 12/03/2023 8:00 AM EDT Results Only Cardiology [address] [place] [address] Elevated BP Cardiology Comment on above: Elevated BP Start: 11-21-2023 End: 11-21-2023 Patient encounter procedure 11/21/2023 10:00 AM EDT Office Visit OB/Gynecology [address] [place] [address] Suzanne Gallardo APRN.CN [address] [place] [address] annual OB/Gynecology Comment on above: annual Start: 10-22-2023 End: 10-22-2023 Patient encounter procedure 10/22/2023 1:40 PM EDT Office Visit [facility] [address] [address] [facility] [address] [place] [phone] [place] [address] [facility] [address] [place] [address] [facility] Start: 10-10-2023 End: 10-10-2023 Patient encounter procedure 10/10/2023 1:40 PM EDT Office Visit [facility] [address] [place] [phone] Lul Chin, ETL PROGRAMMER-LIBRARIAN [employer]RARY [address] [facility] [place] [address] [facility] Start: 10-08-2023 End: 10-08-2023 Patient encounter procedure 10/08/2023 1:40 PM EDT Office Visit [facility] [address] [place] [phone] Lul Chin, ETL PROGRAMMER-LIBRARIAN [employer]RARY [address] [facility] [place] [address] [facility] Start: 10-04-2023 End: 10-04-2023 Patient encounter procedure 10/04/2023 2:00 PM EDT Office Visit [facility] [address] [phone] Blayne Peguero MD [address] [address] [facility] Start: 08-20-2023 End: 08-20-2023 Patient encounter procedure 08/20/2023 1:30 PM EST Office Visit [facility] [address] [facility] [address] [place] [address] [place] [address] [facility] [place] [address] [facility] Start: 08-13-2023 End: 08-13-2023 Patient encounter procedure 08/13/2023 1:30 PM EST Appointment [facility] [address] [place] [phone] [facility] Start: 08-06-2023 End: 08-06-2025 Holter monitor study Holter Or Event Tube [facility] Routine Heart palpitations Expected: 08/06/2023 (Approximate), Expires: 08/06/2025 [facility] Service Area Work Phone: Comment on above: Expected: 08/06/2023 (Approximate), Expi res: 08/06/2025 Start: 07-31-2023 End: 07-31-2023 Patient encounter procedure 07/31/2023 1:30 PM EST Office Visit [facility] [address] [facility]Note 2] [address] [place] [address] [place] [address] [place] [address] [facility] Start: 07-05-2023 End: 07-05-2023 Patient encounter procedure 07/05/2023 9:20 AM EST Office Visit [facility] [address] [phone] [place] [address] [phone] [facility] Start: 07-02-2023 Behavioral Health Screening Behavioral Health Screening [facility] Start: 07-02-2023 Depression Assessment Depression Assessment [facility] Start: 06-08-2023 End: 06-08-2023 Admission to same day surgery center 06/08/2023 1:00 PM EST - 06/08/2023 2:00 PM EST Surgery [facility] [place] [address] [place] [phone] [place] [address] [address] RIGHT OOPHORECTOMY, SLING PLACEMENT [97411 (CPT )] [facility] [place] Comment on above: RIGHT OOPHORECTOMY, SLING PLACEMENT [586 61 (CPT )] Start: 06-08-2023 End: 06-08-2023 Laparoscopy w/rmvl adnexal structures Excision Cyst Laparoscopy Ovary 06/08/2023 1:00 PM EST [facility] Start: 06-08-2023 End: 06-08-2023 Sling operation stress incontinence Suspension Urethra with Retropubic Sling 06/08/2023 1:00 PM EST [facility] Start: 06-08-2023 Subsequent hospital visit by physician 06/08/2023 11:30 AM EST Hospital Encounter [facility] [place] [address] [place] [phone] [place] [address] [facility], [address] [address] [facility] [place] Start: 06-07-2023 End: 06-07-2023 Patient encounter procedure 06/07/2023 3:00 PM EST Office Visit [facility] [address] [facility] 1st [place] [phone] [place] [address] [place], [place] [phone] [facility] Start: 06-07-2023 End: 06-07-2023 Telemedicine consultation with patient 06/07/2023 9:20 AM EST Telemedicine [facility] [address] [phone] [place] [address] [facility], [address] [address] [facility] Start: 05-28-2023 End: 05-28-2023 Admission to same day surgery center 05/28/2023 12:00 PM EST - 05/28/2023 1:15 PM EST Surgery [facility] [place] [address] [place] [phone] [place] [address] [facility], [address] [phone] Oophorectomy [49349 (CPT )] [facility] [place] Comment on above: Oophorectomy [60936 (CPT )] Start: 05-28-2023 End: 05-28-2023 Anesthesia consultation 05/28/2023 12:00 PM EST Anesthesia Event [facility] [place] [address] [place] [phone] Jean Schreiber DO [address] [place] [address] [phone] [facility] [place] Start: 05-28-2023 End: 05-28-2023 Oophorectomy partial/total uni/bi Oophorectomy Adnexal mass 05/28/2023 12:00 PM EST [facility] [place] Start: 05-28-2023 Subsequent hospital visit by physician 05/28/2023 10:30 AM EST Hospital Encounter [facility] [place] [address] [place] [phone] [place] [address] [facility], [address] [address] [facility] [place] Start: 05-22-2023 End: 05-22-2023 Patient encounter procedure 05/22/2023 8:30 AM EST Procedure Visit [facility] [address] [place] [address] [address] [place] [address] [facility] Start: 05-21-2023 End: 05-21-2023 Patient encounter procedure 05/21/2023 3:00 PM EST Office Visit [facility] [address] [id number] Blayne Peguero MD [address] [id number] [facility] Start: 04-05-2023 End: 10-04-2024 Colonoscopy Colonoscopy Screening Endoscopy Routine Esophageal dysphagia Colon cancer screening Expected: 04/05/2023, Expires: 10/04/2024 [facility] Work Phone: Comment on above: Expected: 04/05/2023, Expires: Start: 04-05-2023 End: 04-05-2024 Esophagogastroduodenoscopy EGD Endoscopy Routine Esophageal dysphagia Colon cancer screening Expected: 04/05/2023 (Approximate), Expires: 04/05/2024 [facility] Work Phone: Comment on above: Expected: 04/05/2023 (Approximate), Expi res: 04/05/2024 Start: 03-20-2023 End: 03-20-2024 25-hydroxyvitamin D3 [Mass/volume] in Serum or Plasma Vitamin D 25-Hydroxy,Total (for eval of Vitamin D levels) Lab Routine Encounter for annual physical exam Expected: 03/20/2023 (Approximate), Expires: 03/20/2024 [facility] Work Phone: Comment on above: Expected: 03/20/2023 (Approximate), Expi res: 03/20/2024 Start: 03-20-2023 End: 03-20-2024 Colonoscopy Colonoscopy Screening Endoscopy Routine Colon cancer screening Expected: 03/20/2023 (Approximate), Expires: 03/20/2024 [facility] Work Phone: Comment on above: Expected: 03/20/2023 (Approximate), Expi res: 03/20/2024 Start: 03-20-2023 End: 05-20-2024 DBT Breast - bilateral BI mammo bilateral screening tomosynthesis Imaging Routine Breast cancer screening by mammogram Expected: 03/20/2023, Expires: 05/20/2024 [facility] Work Phone: Comment on above: Expected: 03/20/2023, Expires: Start: 03-20-2023 End: 03-20-2024 Hemoglobin A1c/Hemoglobin.total in Blood Hemoglobin A1C Lab Routine Encounter for annual physical exam Expected: 03/20/2023 (Approximate), Expires: 03/20/2024 [facility] Work Phone: Comment on above: Expected: 03/20/2023 (Approximate), Expi res: 03/20/2024 Start: 03-20-2023 End: 03-20-2024 Hepatitis C virus Ab [Presence] in Serum Hepatitis C Antibody Lab Routine Encounter for annual physical exam Expected: 03/20/2023 (Approximate), Expires: 03/20/2024 [facility] Work Phone: Comment on above: Expected: 03/20/2023 (Approximate), Expi res: 03/20/2024 Start: 03-20-2023 End: 03-20-2024 HIV 1+2 Ab+HIV1 p24 Ag [Presence] in Serum or Plasma by Immunoassay HIV 1/2 Antigen/Antibody Screen with Reflex to Confirmation Lab Routine Encounter for annual physical exam Expected: 03/20/2023 (Approximate), Expires: 03/20/2024 [facility] Work Phone: Comment on above: Expected: 03/20/2023 (Approximate), Expi res: 03/20/2024 Start: 03-20-2023 End: 03-20-2024 Lipid 1996 panel - Serum or Plasma Lipid Panel Lab Routine Encounter for annual physical exam Expected: 03/20/2023 (Approximate), Expires: 03/20/2024 [facility] Work Phone: Comment on above: Expected: 03/20/2023 (Approximate), Expi res: 03/20/2024 Start: 03-08-2023 End: 03-08-2024 [facility] Start: 03-02-2023 Covid-19 Vaccine ( season) Covid-19 Vaccine ( season) [facility] Start: 03-02-2023 Influenza vaccination Influenza Vaccine (#1) [facility] Start: 08-06-2022 DIABETES SCREEN DIABETES SCREEN [facility] Start: 08-06-2022 Diabetes Screening Diabetes Screening [facility] Start: 07-02-2022 Depression Assessment Depression Assessment [facility] Start: 03-02-2022 Influenza vaccination [facility] Start: 12-05-2021 FUV, Provider: Joshua Tena, Status: Pen, Time: 8:15 AM FUV, Provider: Joshua Tena, Status: Pen, Time: 8:15 AM [facility] Work Phone: Start: 2021 COLOGUARD (FIT-DNA) COLOGUARD (FIT-DNA) [facility] Start: 2021 Colonoscopy COLONOSCOPY [facility] Start: 2021 COLORECTAL CANCER SCREENING COLORECTAL CANCER SCREENING [facility] Start: [address] COLONOGRAPHY [facility] Start: 2021 FECAL OCCULT BLOOD FECAL OCCULT BLOOD [facility] Start: 2021 Lipid 1996 panel - Serum or Plasma Lipid Screening [facility] Start: 2021 LIPID SCREEN LIPID SCREEN [facility] Start: 2021 Screening for malignant neoplasm of colon [facility] Start: 2021 SIGMOIDOSCOPY SIGMOIDOSCOPY [facility] Start: 10-28-2021 NPV, Provider: Keo Brown, Status: Pen, Time: 11:30 AM NPV, Provider: Keo Brown, Status: Pen, Time: 11:30 AM [facility] Work Phone: Start: 10-28-2021 DUALDM, Provider: Lucila Davis, Status: Pen, Time: 11:00 AM DUALAUDIO, Provider: Lucila Davis, Status: Pen, Time: 11:00 AM [facility] Work Phone: Start: 09-26-2021 End: 11-26-2021 STONE PANEL URINE STONE PANEL URINE Lab Routine Kidney stones Expected: 09/26/2021, Expires: 11/26/2021 [facility] Work Phone: Comment on above: Expected: 09/26/2021, Expires: 2 Start: 09-15-2021 COVID-19 VACCINE (3 - Booster for Pfizer series) COVID-19 VACCINE (3 - Booster for Pfizer series) [facility] Start: 07-02-2021 DEPRESSION ASSESSMENT DEPRESSION ASSESSMENT [facility] Start: 06-12-2021 COVID-19 VACCINE (3 - Booster for Pfizer series) COVID-19 VACCINE (3 - Booster for Pfizer series) [facility] Start: 06-12-2021 COVID-19 Vaccine (3 - Pfizer series) COVID-19 Vaccine (3 - Pfizer series) [facility] Start: 03-02-2021 Influenza vaccination INFLUENZA (#1) [facility] Start: 01-27-2021 STRESS DONA, Provider: [facility] STRESS TEST,CHCSTRESS, Status: Pen, Time: 11:00 AM STRESS DONA, Provider: [facility]CORD STRESS TEST,CHCSTRESS, Status: Pen, Time: 11:00 AM [facility] Work Phone: Start: 01-20-2021 STRESS DONA, Provider: [facility]ORD STRESS TEST,CHCSTRESS, Status: Pen, Time: 9:00 AM STRESS DONA, Provider: [facility]CORD STRESS TEST,CHCSTRESS, Status: Pen, Time: 9:00 AM [facility] Work Phone: Start: 01-20-2021 ECHO, Provider: [facility] ECHOCARDIOGRAM 1,CHCECHO 1, Status: Pen, Time: 8:00 AM ECHO, Provider: [facility] ECHOCARDIOGRAM 1,CHCECHO 1, Status: Pen, Time: 8:00 AM [facility] Work Phone: Start: 12-30-2020 STRESS DONA, Provider: [facility]CORD STRESS TEST,CHCSTRESS, Status: Pen, Time: 11:00 AM STRESS DONA, Provider: [facility]CORD STRESS TEST,CHCSTRESS, Status: Pen, Time: 11:00 AM [facility] Work Phone: Start: 12-30-2020 ECHO, Provider: CONCORD ECHOCARDIOGRAM 1,CHCECHO 1, Status: Pen, Time: 10:00 AM ECHO, Provider: CONCORD ECHOCARDIOGRAM 1,CHCECHO 1, Status: Pen, Time: 10:00 AM [facility] Work Phone: Start: 12-26-2019 Screening for malignant neoplasm of cervix Pap Smear [facility] Start: 11-02-2019 Screening for malignant neoplasm of breast Mammogram [facility] Start: 03-09-2019 Screening for malignant neoplasm of breast Mammogram Screening [facility] Start: 10-14-2018 HPV TESTING HPV TESTING [facility] Start: 10-14-2018 PAP TESTING PAP TESTING [facility] Start: 10-14-2018 Screening for malignant neoplasm of cervix [facility] Start: 12-08-2016 Adult depression screening assessment DEPRESSION SCREENING [facility] Start: 2016 Mammography [facility] Start: 10-30-2013 Urine microalbumin profile DTAP,TDAP,TD (2 - Tdap) [facility] Start: 1997 Screening for malignant neoplasm of cervix HPV/Cotest [facility] Start: 11-16-1995 Hepatitis B Vaccine (1 of 3 - 19+ 3-dose series) Hepatitis B Vaccine (1 of 3 - 19+ 3-dose series) [facility] Start: 1994 ANNUAL PCP TEAM CHRONIC DISEASE VISIT ANNUAL PCP TEAM CHRONIC DISEASE VISIT [facility] Start: 1994 BP Controlled (<130/80) BP Controlled (<130/80) [facility] Start: 1994 Depression Screening Depression Screening [facility] Start: 1994 Diabetes mellitus screening Diabetes Screening [facility] Start: 1994 Hepatitis C screening Hepatitis C Screening [facility] Start: 1994 HIV SCREENING HIV SCREENING [facility] Start: 1994 HIV screening HIV Screening [facility] Start: 1982 PNEUMOCOCCAL (1 - PCV) PNEUMOCOCCAL (1 - PCV) [facility] Start: 1982 Pneumococcal vaccination Pneumococcal Vaccine (1 - PCV) [facility] Start: 1982 Pneumococcal Vaccine: Pediatrics (0 to 5 Years) and At-Risk Patients (6 to 64 Years) (1 - PCV) Pneumococcal Vaccine: Pediatrics (0 to 5 Years) and At-Risk Patients (6 to 64 Years) (1 - PCV) [facility] Start: 1977 MMR Vaccines (1 of 1 - Standard series) MMR Vaccines (1 of 1 - Standard series) [facility] Start: 1976 HEPATITIS B (1 of 3 - 3-dose series) HEPATITIS B (1 of 3 - 3-dose series) [facility] Start: 1976 Hepatitis B Vaccine (1 of 3 - 3-dose series) Hepatitis B Vaccine (1 of 3 - 3-dose series) [facility] Start: 1976 Hepatitis B Vaccines (1 of 3 - 3-dose series) Hepatitis B Vaccines (1 of 3 - 3-dose series) [facility] Start: 1976 HIV screening HIV Screening [facility] Start: 1976 Screening for malignant neoplasm of colon [facility] End: 05-28-2023 Choriogonadotropin ( test) [Presence] in Urine POCT , urine manually resulted Point of Care Testing Routine Once (Lab) for 1 Occurrences starting 05/28/2023 until 05/28/2023 [facility] Work Phone: Comment on above: Once (Lab) for 1 Occurrences starting until 05/28/2023 End: 10-26-2022 Ct abdomen & pelvis w/o contrast material CT FLANK WO IVCON Radiology Routine Kidney stones 1 Occurrences starting 09/26/2021 until 10/26/2022 [facility] Work Phone: Comment on above: 1 Occurrences starting 09/26/2021 until 10/26/2022 End: 05-14-2023 ECG 12 lead ECG 12 lead ECG STAT Once for 1 Occurrences starting 05/14/2023 until 05/14/2023 [facility] Work Phone: Comment on above: Once for 1 Occurrences starting 05/14/20 23 until 05/14/2023 End: 04-25-2023 EMG(NEURO/NI) EMG(NEURO/NI) EMG Routine Cubital tunnel syndrome on left 1 Occurrences starting 04/25/2022 until 04/25/2023 [facility] Work Phone: Comment on above: 1 Occurrences starting 04/25/2022 until 04/25/2023 Glucose [Mass/volume ] in Serum or Plasma POCT Glucose Point of Care Testing - Docked Device Routine As needed (Lab) until discontinued starting 05/28/2023 [facility] Work Phone: Comment on above: As needed (Lab) until discontinued start ing 05/28/2023 End: 08-31-2023 Holter monitor study [facility] Work Phone: Comment on above: Once for 1 Occurrences starting 08/31/19 24 until 08/31/2023 NEUROMUSCULAR ULTRASOUND/NEUROLOGY NEUROMUSCULAR ULTRASOUND/NEUROLOGY Procedures Routine Cubital tunnel syndrome on left Laceration of left forearm, sequela Ordered: 04/25/2022 [facility] Work Phone: Comment on above: Ordered: 04/25/2022 End: 05-28-2023 Troponin I.cardiac panel - Serum or Plasma by High sensitivity method [facility] Work Phone: Comment on above: STAT (Lab) for 1 Occurrences starting until 05/28/2023 Once for 1 Occurrenc es starting 05/28/2023 until 05/28/2023 URINALYSIS, REFLEX MICROSCOPIC U RINALYSIS, REFLEX MICROSCOPIC Lab Routine Screening for genitourinary condition Ordered: 10/04/2021 [facility] Work Phone: Comment on above: Ordered: 10/04/2021 [facility] Immunizations Immunization Date Immunization Notes Care Provider Fa bib 07-03-2023 Pneumococcal conjugate vaccine, 20-valent (PREVNAR 20) Blayne Peguero MD Work Phone: [facility] Work Phone: 03-11-2023 influenza, injectable, quadrivalent, preservative free Haitham Kousa Other Phone: [facility] 03-11-2023 influenza virus vaccine, unspecified formulation Xr Lianne Work Phone: [facility] 03-21-2022 influenza, injectable, quadrivalent, preservative free H J Kousa Work Phone: [facility] Work Phone: 03-21-2022 tetanus toxoid, reduced diphtheria toxoid, and acellular pertussis vaccine, adsorbed AIDAN SHAH Other [facility]. Other 03-21-2022 influenza, injectable, quadrivalent, contains preservative AIDAN SHAH Other [facility] Other 03-21-2022 influenza virus vaccine, unspecified formulation 1 [facility] 04-17-2021 Pfizer-BioNTech COVID-19 Vacc 30 MCG/0.3ML Intramuscular Suspension H J Kousa Work Phone: [facility] Work Phone: 03-27-2021 Pfizer-BioNTech COVID-19 Vacc 30 MCG/0.3ML Intramuscular Suspension H J Kousa Work Phone: [facility] Work Phone: 06-19-2019 influenza, injectable, quadrivalent, contains preservative H J Kousa Work Phone: [facility] 04-13-2015 influenza, injectable, quadrivalent, contains preservative H J Kousa Work Phone: [facility] Work Phone: 04-28-2013 influenza virus vaccine, unspecified formulation Adriana Martinez MD Work Phone: [facility] 04-12-2012 influenza virus vaccine, unspecified formulation Adriana Martinez MD Work Phone: [facility] Work Phone: 03-02-2010 influenza virus vaccine, unspecified formulation Adriana Martinez MD Work Phone: [facility] 10-31-2003 diphtheria and tetanus toxoids, adsorbed for pediatric use Adriana Martinez MD Work Phone: [facility] Work Phone: NEGATED: Highlighted row has not occurred! 2 tetanus toxoid, reduced diphtheria toxoid, and acellular pertussis vaccine, adsorbed; Translations: [DIPH/PERTUSS(ACELL )/TET (TDAP)] Patient Objection DO Yemi Toribio DO [facility] [place] Payers Date Payer Category Payer Medicaid [employer] [facility] [id number] 2014-Present [phone] [address] [place] [address] Medicaid [id number] 2014 Medicaid [id number] 2014 Unknown 2014 Unknown [id number] 1976 Unknown [id number] [id number] 1976 Unknown [id number] [id number] 1976 Unknown [id number] [id number]. 1976 Unknown [id number] [id number] 1976 Unknown [id number] [id number]6 1976 Unknown [id number] [id number] 1976 Unknown [id number] 2.16.840.1.349602.3.579.2.1244 1976 Unknown [id number] 2.16.840.1.043091.3.579.2.356 1976 Unknown [id number] 2.16.840.1.514876.3.579.2.356 1976 Unknown [id number] 2.16.840.1.648613.3.579.2.1242 1976 Unknown [id number] 2.16.840.1.785748.3.579.2.1244 1976 Unknown [id number] 2.16.840.1.260282.3.579.2.1244 1976 Unknown [id number] 2.16.840.1.282414.3.579.2.4 1976 Unknown [id number] 2.16.840.1.621407.3.579.2.1244 1976 Unknown [id number] 2.16.840.1.761265.3.579.2.1243 1976 Unknown [id number] 2.16.840.1.337838.3.579.2.124 1976 Unknown [id number] 2.16.840.1.062656.3.579.2.1241 1976 Unknown [id number] 2.16.840.1.195673.3.579.2.2 1976 Unknown [id number] [id number] Medicaid [id number] Social History Date Type Detail Facility Start: 06-07-2020 End: 03-20-2023 Never a smoker Never a smoker [facility] Work Phone: Comment on above: 2 cups per day; Start: 12-19-2013 End: 06-06-2019 Tobacco smoking status NHIS Never smoked tobacco [facility] Start: 12-19-2013 End: 06-06-2019 Tobacco use and exposure Smokeless tobacco non-user [facility] Start: 07-24-2019 End: 04-04-2021 Alcohol intake Current drinker of alcohol (finding) [facility] Start: 07-24-2019 History SDOH Alcohol Frequency 99 [facility] Start: 07-24-2019 History SDOH Alcohol Comment very rare- maybe 2x/ year [facility] Start: 1975 Sex Assigned At Not on file [facility] Start: 09-08-2020 End: 08-31-2023 Exposure to SARS-CoV-2 (event) Not sure [facility] Start: 06-07-2020 End: 03-20-2023 Sex Assigned At [facility] [place] Tobacco smoking consumption unknown [facility] Start: 03-20-2023 End: 08-06-2023 Alcohol intake Lifetime non-drinker (finding) [facility] Work Phone: Frequency of Alcohol Consumption Monthly or less [facility] Start: 04-17-2023 End: 04-27-2023 Exposure to SARS-CoV-2 (event) Unable to assess [facility] Start: 05-28-2023 Alcohol Comment onoce every co uple months [facility] Work Phone: Start: 08-06-2023 Alcohol Comment once every cou ple months [facility] Work Phone: NEGATED: Highlighted rowStart: NINF History of tobacco use Passive smoker [facility] Work Phone: Functional Status Date Assessment Result Facility Functional observable [facility] Mental Status Date Assessment Result Facility 03-13-2023 Cognitive functions [id number] [facility] Clinical Notes 03-17-2015 to 10-22-2023 Naif Giordano MD - 10/22/2023 1:05 PM EDTPatient InstructionsDestiny Scruggs - 10/09/2023 8:56 AM EDTTelephone Encounter - Elizabeth Vergara MA - 09/24/2023 8:52 AM EDTPatient Instructions Note Date & Type Note Facility 10-22-2023 Note HNO ID: [id number] Author: NAIF GIORDANO MD Service: ? Author Type: Physician Type: Progress Notes Filed: 10/22/2023 13:26 Note Text: Patient presents with: Back Pain: right low back migrating into right leg pain x 10 days, moving furniture HPI: Back pain: Duration: moved about 2 weeks ago and has been hurting since Character: aching in the hips and right leg, pinching in the back Location: bilateral lower back Radiation: both hips, down the back of the leg to the calf and arch of the foot Aggravating: bending and twisting Relieving: Pain relievers: 800mg ibuprofen at night Associated: numbness/left can feel asleep, weakness after extended standing Pertinent negatives: Denies fever, loss of bladder or bowel control, falling ACTIVE PROBLEM LIST Sprain of Shoulder, Right Pain in Joint, Pelvic Region and Thigh Pain in Joint, Lower Leg Myofascial Pain Lumbar Sprain and Strain Anxiety Asthma Shoulder Pain Abdominal pain, epigastric Acute Gastritis Without Mention of Hemorrhage Dyspnea Sinus Tachycardia Pid (Acute Pelvic Inflammatory Disease) Asthma in Adult Fatigue Dysphagia Cough Renal Calculus, Right Other Pulmonary Embolism Without Acute Cor Pulmonale (Hcc) Chest Pain Hypertension History of Pulmonary Embolism Acute Hypoxic Respiratory Failure (Hcc) Abnormal Stress Test Postoperative State Abdominal Pain Moderate Persistent Asthma With Exacerbation Foreign Body in Lung Diarrhea MEDICATIONS: amLODIPine (NORVASC) 5 mg tablet Take 1 tablet by mouth every afternoon. apixaban (ELIQUIS) 5 mg tab(s) Take 5 mg by mouth two times a day. fluticasone (FLONASE) 50 mcg/actuation nasal spray Use 2 Sprays in each nostril once daily. Rinse mouth after use. carvedilol (COREG) 3.125 mg tablet Take 1 tablet by mouth two times a day with meals. mometasone-formoterol (DULERA) 200-5 mcg/actuation inhaler Inhale 2 Puffs as instructed two times a day. pantoprazole DR (PROTONIX) 40 mg tablet Take 40 mg by mouth once daily. famotidine (PEPCID) 40 mg tablet Take 40 mg by mouth daily at bedtime. albuterol (PROVENTIL) 2.5 mg /3 mL (0.083 %) nebulizer solution Use 3 mL via nebulizer every 6 hours as needed for Wheezing/Shortness of Breath. Inhale over 5-15 minutes albuterol HFA (PROAIR HFA) 90 mcg/actuation inhaler 2 Puffs every 6 hours as needed for Wheezing/Shortness of Breath. Take as directed ALLERGIES: ALLERGIES Allergen Reactions Penicillins Anaphylaxis Bactrim [Sulfametho* Ultram [Tramadol Hc* Intolerance VITALS: BP 148/82 Pulse 82 Temp 36.4 ?C (97.5 ?F) Resp 16 Wt 81.5 kg (179 lb 10.8 oz) LMP 07/24/2016 (Approximate) SpO2 98% BMI 30.84 kg/m? PHYSICAL EXAM: GEN: pleasant, no acute distress, alert HEART: regular rate, regular rhythm, no murmurs LUNGS: clear to auscultation, no wheezes or crackles, no increased WOB EXT: no clubbing, no cyanosis, no edema BACK: Normal curvature of spine. lumbar midline and paraspinal tenderness. Straight leg test positive (R>L). Deep tendon reflexes 2+/4 at patellas. Normal lower extremity strength. Mild limping gait. ASSESSMENT/PLAN: 1. Acute bilateral low back pain with right-sided sciatica - ICD9: 724.2, 724.3, 338.19, ICD10: M54.41 Advised against using NSAIDs with eliquis (post-op PE in June) which she is aware of. - PREDNISONE 10 MG TABLET taper. Reports has tolerated in the past for asthma. May use acetaminophen PRN. Continue protonix for gastritis protection. Declines muscle relaxer because of dizziness side effect. Seek immediate evaluation for loss of bladder or bowel control, unexplained fever, or progressive weakness or numbness. Naif Giordano MD [facility] 10-22-2023 History of Present illness Narrative Patient presents with: Back Pain: right low back migrating into right leg pain x 10 days, moving furniture HPI: Back pain: Duration: moved about 2 weeks ago and has been hurting since Character: aching in the hips and right leg, pinching in the back Location: bilateral lower back Radiation: both hips, down the back of the leg to the calf and arch of the foot Aggravating: bending and twisting Relieving: Pain relievers: 800mg ibuprofen at night Associated: numbness/left can feel asleep, weakness after extended standing Pertinent negatives: Denies fever, loss of bladder or bowel control, falling ACTIVE PROBLEM LIST Sprain of Shoulder, Right Pain in Joint, Pelvic Region and Thigh Pain in Joint, Lower Leg Myofascial Pain Lumbar Sprain and Strain Anxiety Asthma Shoulder Pain Abdominal pain, epigastric Acute Gastritis Without Mention of Hemorrhage Dyspnea Sinus Tachycardia Pid (Acute Pelvic Inflammatory Disease) Asthma in Adult Fatigue Dysphagia Cough Renal Calculus, Right Other Pulmonary Embolism Without Acute Cor Pulmonale (Hcc) Chest Pain Hypertension History of Pulmonary Embolism Acute Hypoxic Respiratory Failure (Hcc) Abnormal Stress Test Postoperative State Abdominal Pain Moderate Persistent Asthma With Exacerbation Foreign Body in Lung Diarrhea MEDICATIONS: amLODIPine (NORVASC) 5 mg tablet Take 1 tablet by mouth every afternoon. apixaban (ELIQUIS) 5 mg tab(s) Take 5 mg by mouth two times a day. fluticasone (FLONASE) 50 mcg/actuation nasal spray Use 2 Sprays in each nostril once daily. Rinse mouth after use. carvedilol (COREG) 3.125 mg tablet Take 1 tablet by mouth two times a day with meals. mometasone-formoterol (DULERA) 200-5 mcg/actuation inhaler Inhale 2 Puffs as instructed two times a day. pantoprazole DR (PROTONIX) 40 mg tablet Take 40 mg by mouth once daily. famotidine (PEPCID) 40 mg tablet Take 40 mg by mouth daily at bedtime. albuterol (PROVENTIL) 2.5 mg /3 mL (0.083 %) nebulizer solution Use 3 mL via nebulizer every 6 hours as needed for Wheezing/Shortness of Breath. Inhale over 5-15 minutes albuterol HFA (PROAIR HFA) 90 mcg/actuation inhaler 2 Puffs every 6 hours as needed for Wheezing/Shortness of Breath. Take as directed ALLERGIES: ALLERGIES Allergen Reactions Penicillins Anaphylaxis Bactrim [Sulfametho* Ultram [Tramadol Hc* Intolerance VITALS: BP 148/82 Pulse 82 Temp 36.4 C (97.5 F) Resp 16 Wt 81.5 kg (179 lb 10.8 oz) LMP 07/24/2016 (Approximate) SpO2 98% BMI 30.84 kg/m PHYSICAL EXAM: GEN: pleasant, no acute distress, alert HEART: regular rate, regular rhythm, no murmurs LUNGS: clear to auscultation, no wheezes or crackles, no increased WOB EXT: no clubbing, no cyanosis, no edema BACK: Normal curvature of spine. lumbar midline and paraspinal tenderness. Straight leg test positive (R>L). Deep tendon reflexes 2+/4 at patellas. Normal lower extremity strength. Mild limping gait. ASSESSMENT/PLAN: 1. Acute bilateral low back pain with right-sided sciatica - ICD9: 724.2, 724.3, 338.19, ICD10: M54.41 Advised against using NSAIDs with eliquis (post-op PE in June) which she is aware of. - PREDNISONE 10 MG TABLET taper. Reports has tolerated in the past for asthma. May use acetaminophen PRN. Continue protonix for gastritis protection. Declines muscle relaxer because of dizziness side effect. Seek immediate evaluation for loss of bladder or bowel control, unexplained fever, or progressive weakness or numbness. Naif Giordano MD documented in this encounter [facility] 10-09-2023 Note HNO ID: [id number] Author: ROLAND MCDANIEL APRN.CNP Service: ? Author Type: ? Type: Progress Notes Filed: 10/09/2023 09:13 Note Text: Subjective Sore Throat Associated symptoms include congestion, coughing and ear pain. Pertinent negatives include no abdominal pain, diarrhea, ear discharge, headaches or vomiting. Pt presents to clinic on October 09, 2023 for CC: congestion and sore throat Symptoms since Sunday: nasal congestion, slight intermittent dry cough, decreased appetite, sore throat, R ear pain 5/10 achy, R ear feels clogged, chills, sweats, body aches, fatigue, not sleeping well due to congestion Denies: postnasal drip, decreased hearing, ringing in the ears, drainage, fever, dizziness, headaches, n/v, stomach pain Meds: tylenol No problems with elimination Has history of blood clots in lungs so gets nervous when she gets sick Sick exposures: granddaughter has strep Review of Systems Constitutional: Positive for chills, diaphoresis and malaise/fatigue. Negative for fever. HENT: Positive for congestion, ear pain and sore throat. Negative for ear discharge, hearing loss, sinus pain and tinnitus. Eyes: Negative for pain. Respiratory: Positive for cough. Negative for sputum production. Cardiovascular: Negative for chest pain. Gastrointestinal: Negative for abdominal pain, constipation, diarrhea, nausea and vomiting. Genitourinary: Negative for dysuria. Musculoskeletal: Positive for myalgias. Neurological: Negative for dizziness and headaches. BP 128/88 Pulse 60 Temp 36.3 ?C (97.3 ?F) Resp 18 Wt 79 kg (174 lb 2.6 oz) LMP 07/24/2016 (Approximate) SpO2 97% BMI 29.90 kg/m? PAST MEDICAL HISTORY Diagnosis Date - Bipolar I disorder, most recent episode (or current) unspecified - Calculus of bile duct without mention of cholecystitis, with obstruction - Irritable bowel syndrome - Kidney stone - Known health problems: none 04/04/2021 - Other and unspecified ovarian cyst - Other cholecystitis - Seasonal allergies - Temporomandibular joint disorders, unspecified - Unspecified asthma(493.90) PAST SURGICAL HISTORY Procedure Laterality Date - ADENOIDECTOMY PRIMARY Adenoidectomy - COLONOSCOPY FLX DX W/COLLJ SPEC WHEN PFRMD 04/03/2012 pt discomfort, normal to transverse colon - ordered BE - EGD TRANSORAL BIOPSY SINGLE/MULTIPLE 04/03/2012 mild gastritis - HYSTERECTOMY HX 2017 - LAPAROSCOPY SURG CHOLECYSTECTOMY 1999 Cholecystectomy, lap - LIG/TRNSXJ FLP TUBE ABDL/VAG APPR UNI/BI 1998 - PAST SURGICAL HISTORY OF 2016 ureteral stent placed - REMOVAL OF OVARY/TUBE(S) 2022 RSO, LS - SLING 2022 - TONSILLECTOMY PRIMARY/SECONDARY Tonsillectomy ALLERGIES Penicillins, Bactrim [Sulfamethoxazole-Trimethoprim], and Ultram [Tramadol Hcl] MEDICATIONS - amLODIPine (NORVASC) 5 mg tablet Take 1 tablet by mouth every afternoon. - apixaban (ELIQUIS) 5 mg tab(s) Take 5 mg by mouth two times a day. - carvedilol (COREG) 3.125 mg tablet Take 1 tablet by mouth two times a day with meals. - mometasone-formoterol (DULERA) 200-5 mcg/actuation inhaler Inhale 2 Puffs as instructed two times a day. - pantoprazole DR (PROTONIX) 40 mg tablet Take 40 mg by mouth once daily. - famotidine (PEPCID) 40 mg tablet Take 40 mg by mouth daily at bedtime. - albuterol (PROVENTIL) 2.5 mg /3 mL (0.083 %) nebulizer solution Use 3 mL via nebulizer every 6 hours as needed for Wheezing/Shortness of Breath. Inhale over 5-15 minutes - albuterol HFA (PROAIR HFA) 90 mcg/actuation inhaler 2 Puffs every 6 hours as needed for Wheezing/Shortness of Breath. Take as directed FAMILY HISTORY Problem Relation Age of Onset - Hypertension Mother - Breast Cancer Paternal Grandmother lung - GI Paternal Grandfather - Diabetes Maternal Grandmother from lung ca - Diabetes Maternal Grandfather from unk cause - Colon Cancer Maternal Uncle age 43 - other (POTS) Sister - other (Lupus) Other niece - other (lupus) Other - Anesthesia Problems No Family History - Colon Polyps No Family History Social History Tobacco Use - Smoking status: Never - Smokeless tobacco: Never Vaping Use - Vaping Use: Never used Substance Use Topics - Alcohol use: Yes Comment: very rare- maybe 2x/ year - Drug use: No Objective Physical Exam Vitals and nursing note reviewed. Constitutional: General: She is not in acute distress. Appearance: Normal appearance. She is not ill-appearing, toxic-appearing or diaphoretic. HENT: Head: Normocephalic. Right Ear: Tympanic membrane, ear canal and external ear normal. There is no impacted cerumen. Left Ear: Tympanic membrane, ear canal and external ear normal. There is no impacted cerumen. Nose: Congestion present. No rhinorrhea. Mouth/Throat: Mouth: Mucous membranes are moist. Pharynx: No oropharyngeal exudate or posterior oropharyngeal erythema. Eyes: General: Right eye: No discharge. Left eye: (more content not included)... [facility] 10-09-2023 Instructions Roland Mcdaniel, [place].[facility] - 10/09/2023 9:05 AM EDT ASSESSMENT/PLAN: 1. URI, acute - ICD9: 465.9, ICD10: J06.9 - Discussed viral etiology and rationale for treatment. - Group A strep molecular testing negative Office Visit on 10/09/2023 Component Date Value Ref Range Status Strep A (POCT) 10/09/2023 Negative Negative Final Procedural Control 10/09/2023 Valid Final - Symptomatic treatment with prn analgesia - Supportive care with fluids and rest - Recommended us of Flonase nasal spray to help with congestion - FLUTICASONE PROPIONATE 50 MCG/ACTUATION NASAL SPRAY,SUSPENSION 2. Sore throat - ICD9: 462, ICD10: J02.9 - Group A strep molecular testing negative Treatment for Viral Upper Respiratory Tract Infections Your body will kill off the virus by itself. Additionally, you can prime your body's immune system. This may help you get better more quickly. Drink lots of fluids Make sure you are eating well Get plenty of rest We do not have any medications that kill off these viruses. Antibiotics are used to treat bacterial infections; however, they are not active against viral infections. There are some things that might help you feel better, though. Vaporizers, humidifiers, hot showers, and hot fluids help open respiratory and sinus passages [place] Nasal [place] may offer relief of nasal and head congestion Scot's Vapor Rub may relieve congestion Tylenol and Advil help control fevers and headaches Salt water gargles help relieve sore throats Chloraceptic spray or throat lozenges may also help relieve sore throat symptoms Occasionally, viral infections turn into something more serious. You should see your doctor or return to the Urgent Care if: You have fevers for longer than five days You have fevers above 102 degrees You are still sick after 10 days You have shortness of breath or wheezing After several days you are getting worse rather than better documented in this encounter [facility] 10-09-2023 History of Present illness Narrative Subjective Sore Throat Associated symptoms include congestion, coughing and ear pain. Pertinent negatives include no abdominal pain, diarrhea, ear discharge, headaches or vomiting. Pt presents to clinic on October 09, 2023 for CC: congestion and sore throat Symptoms since Sunday: nasal congestion, slight intermittent dry cough, decreased appetite, sore throat, R ear pain 5/10 achy, R ear feels clogged, chills, sweats, body aches, fatigue, not sleeping well due to congestion Denies: postnasal drip, decreased hearing, ringing in the ears, drainage, fever, dizziness, headaches, n/v, stomach pain Meds: tylenol No problems with elimination Has history of blood clots in lungs so gets nervous when she gets sick Sick exposures: granddaughter has strep Review of Systems Constitutional: Positive for chills, diaphoresis and malaise/fatigue. Negative for fever. HENT: Positive for congestion, ear pain and sore throat. Negative for ear discharge, hearing loss, sinus pain and tinnitus. Eyes: Negative for pain. Respiratory: Positive for cough. Negative for sputum production. Cardiovascular: Negative for chest pain. Gastrointestinal: Negative for abdominal pain, constipation, diarrhea, nausea and vomiting. Genitourinary: Negative for dysuria. Musculoskeletal: Positive for myalgias. Neurological: Negative for dizziness and headaches. BP 128/88 Pulse 60 Temp 36.3 C (97.3 F) Resp 18 Wt 79 kg (174 lb 2.6 oz) LMP 07/24/2016 (Approximate) SpO2 97% BMI 29.90 kg/m PAST MEDICAL HISTORY Diagnosis Date Bipolar I disorder, most recent episode (or current) unspecified Calculus of bile duct without mention of cholecystitis, with obstruction Irritable bowel syndrome Kidney stone Known health problems: none 04/04/2021 Other and unspecified ovarian cyst Other cholecystitis Seasonal allergies Temporomandibular joint disorders, unspecified Unspecified asthma(493.90) PAST SURGICAL HISTORY Procedure Laterality Date ADENOIDECTOMY PRIMARY <AGE 12 2000 Adenoidectomy COLONOSCOPY FLX DX W/COLLJ SPEC WHEN PFRMD 04/03/2012 pt discomfort, normal to transverse colon - ordered BE EGD TRANSORAL BIOPSY SINGLE/MULTIPLE 04/03/2012 mild gastritis HYSTERECTOMY HX 2017 LAPAROSCOPY SURG CHOLECYSTECTOMY 1999 Cholecystectomy, lap LIG/TRNSXJ FLP TUBE ABDL/VAG APPR UNI/BI 1998 PAST SURGICAL HISTORY OF 2016 ureteral stent placed REMOVAL OF OVARY/TUBE(S) 2022 RSO, LS SLING 2022 TONSILLECTOMY PRIMARY/SECONDARY <AGE 13 2000 Tonsillectomy ALLERGIES Penicillins, Bactrim [Sulfamethoxazole-Trimethoprim], and Ultram [Tramadol Hcl] MEDICATIONS amLODIPine (NORVASC) 5 mg tablet Take 1 tablet by mouth every afternoon. apixaban (ELIQUIS) 5 mg tab(s) Take 5 mg by mouth two times a day. carvedilol (COREG) 3.125 mg tablet Take 1 tablet by mouth two times a day with meals. mometasone-formoterol (DULERA) 200-5 mcg/actuation inhaler Inhale 2 Puffs as instructed two times a day. pantoprazole DR (PROTONIX) 40 mg tablet Take 40 mg by mouth once daily. famotidine (PEPCID) 40 mg tablet Take 40 mg by mouth daily at bedtime. albuterol (PROVENTIL) 2.5 mg /3 mL (0.083 %) nebulizer solution Use 3 mL via nebulizer every 6 hours as needed for Wheezing/Shortness of Breath. Inhale over 5-15 minutes albuterol HFA (PROAIR HFA) 90 mcg/actuation inhaler 2 Puffs every 6 hours as needed for Wheezing/Shortness of Breath. Take as directed FAMILY HISTORY Problem Relation Age of Onset Hypertension Mother Breast Cancer Paternal Grandmother lung GI Paternal Grandfather Diabetes Maternal Grandmother from lung ca Diabetes Maternal Grandfather from unk cause Colon Cancer Maternal Uncle age 43 other (POTS) Sister other (Lupus) Other niece other (lupus) Other Anesthesia Problems No Family History Colon Polyps No Family History Social History Tobacco Use Smoking status: Never Smokeless tobacco: Never Vaping Use Vaping Use: Never used Substance Use Topics Alcohol use: Yes Comment: very rare- maybe 2x/ year Drug use: No Objective Physical Exam Vitals and nursing note reviewed. Constitutional: General: She is not in acute distress. Appearance: Normal appearance. She is not ill-appearing, toxic-appearing or diaphoretic. HENT: Head: Normocephalic. Right Ear: Tympanic membrane, ear canal and external ear normal. There is no impacted cerumen. Left Ear: Tympanic membrane, ear canal and external ear normal. There is no impacted cerumen. Nose: Congestion present. No rhinorrhea. Mouth/Throat: Mouth: Mucous membranes are moist. Pharynx: No oropharyngeal exudate or posterior oropharyngeal erythema. Eyes: General: Right eye: No discharge. Left eye: No discharge. Conjunctiva/sclera: Conjunctivae normal. Cardiovascular: Rate and Rhythm: Normal rate and regular rhythm. Heart sounds: Normal heart sounds. No murmur heard. No gallop. Pulmonary: Effort: Pulmonary effort is normal. No respiratory distress. Breath sounds: Normal breath sounds. No stridor. No wheezing, rhonchi or rales. Chest: Chest wall: No tenderness. Neurological: Mental Status: She is alert and oriented to person, place, and time. Psychiatric: Mood and Affect: Mood normal. Behavior: Behavior normal. Thought Content: Thought content normal. Judgment: Judgment normal. ASSESSMENT/PLAN: 1. URI, acute - ICD9: 465.9, ICD10: J06.9 - Discussed viral etiology and rationale for treatment. - Group A strep molecular testing negative Office Visit on 10/09/2023 Component Date Value Ref Range Status Strep A (POCT) 10/09/2023 Negative Negative Final Procedural Control 10/09/2023 Valid Final - Symptomatic treatment with prn analgesia - Supportive care with fluids and rest - Recommended us of Flonase nasal spray to help with congestion - FLUTICASONE PROPIONATE 50 MCG/ACTUATION NASAL SPRAY,SUSPENSION 2. Sore throat - ICD9: 462, ICD10: J02.9 - Group A strep molecular testing negative ALBINA Loera TEACHING PROVIDER (Physician/PA/ETL PROGRAMMER) NOTE OF PERSONAL INVOLVEMENT IN CARE: I have personally seen and examined the patient and performed the medical decision-making components. I have reviewed the Advanced Practice Registered Nurse (ETL PROGRAMMER) Student's documentation and verified the findings in the note as written. Any additions or changes are noted in bold/italics. Signature: Roland Mcdaniel Date: 10/09/2023 Time: 9:13 AM documented in this encounter [facility] 09-29-2023 Note HNO ID: [id number] Author: COLLEEN CISNEROS PA-C Service: ? Author Type: Physician Assembly Line Robot Operator Type: Progress Notes Filed: 09/29/2023 09:17 Note Text: Patient presents to express care triage with worsening abdominal pain for 2-3 days. It is painful in the right flank and upper abdomen. She has had nausea. No fever. She has had multiple abdominal surgeries previously. She denies dysuria, frequency, urgency. Her urine has been dark. She does not have a primary care provider. She is already on protonix for gastritis. Discussed to be evaluated for abdominal pain, I would recommend ER at this point. Patient will go to [facility] ED. [facility] 09-24-2023 Miscellaneous Notes Our practice is closed, no longer accepting any patients. She has not see Dr. Asher since 2013 and she no showed 3 times within that year. Elizabeth Vergara MA Pt is previous pt of Lb, wondering if she can reestablish as she has recently moved back to [place]. Please review and advise. Janette Santa September 22, 2023 9:26 AM documented in this encounter [facility] 09-22-2023 Note HNO ID: [id number] Author: LEVY ELIAS RT(R) Service: Radiology Author Type: Technologist Type: Progress Notes Filed: 09/22/2023 09:00 Note Text: Radiology Service Progress Note PATIENT NAME: Damari Rios DATE OF SERVICE: September 22, 2023 TIME: 8:54 AM PATIENT IDENTITY VERIFICATION COMPLETED USING TWO (2) IDENTIFIERS: Name and Date of confirmed by patient verbally. FALL SCREENING: Has the patient had 2 falls in the last year or 1 fall with injury or currently using an Ambulatory Assistive Device (Walker, Cane, Wheelchair, Crutches, etc.)? No PATIENT GENDER DATA: Female. status: : No status: NO. PATIENT RELEVANT IMPLANT DATA REVIEWED: Not Applicable PATIENT PRESENTS WITH AN IMPLANTABLE OR ATTACHED AUTO BRAKE TECHNICIAN: No RADIOLOGY DEPARTMENT: General X-ray: Exam(s) Completed: Upper Extremity X-Ray(s): Fingers/Thumb, right PERIPHERAL IV DATA: Not applicable SIGNED BY: RT Shruthi(R) September 22, 2023 8:54 AM [facility] 09-22-2023 Note HNO ID: [id number] Author: JUSTYN MALDONADO APRN.[facility] Service: ? Author Type: Nurse Practitioner Type: Progress Notes Filed: 09/22/2023 09:24 Note Text: Subjective HPI Nontoxic-appearing female presents urgent care chief complaint hand injury. Duration of symptom 1 day. Associated symptoms right hand pain. Patient states she got fourth digit in the car door yesterday around 8 PM. Feels swollen and painful today. States has not used any OTC medications. No weaknesses. Pain is increased by movement or palpation. [id number]. No surgeries or fractures in the past. Denies chance of . Is not breast-feeding. No numbness no tingling. No decrease sensation. Past medical history prescription medications allergies reviewed. .Patient presents with: Trauma: Smashed rt hand index finger in car door x 1 day PAST MEDICAL HISTORY Diagnosis Date Bipolar I disorder, most recent episode (or current) unspecified Calculus of bile duct without mention of cholecystitis, with obstruction Irritable bowel syndrome Kidney stone Known health problems: none 04/04/2021 Other and unspecified ovarian cyst Other cholecystitis Seasonal allergies Temporomandibular joint disorders, unspecified Unspecified asthma(493.90) PAST SURGICAL HISTORY Procedure Laterality Date ADENOIDECTOMY PRIMARY Adenoidectomy COLONOSCOPY FLX DX W/COLLJ SPEC WHEN PFRMD 04/03/2012 pt discomfort, normal to transverse colon - ordered BE EGD TRANSORAL BIOPSY SINGLE/MULTIPLE 04/03/2012 mild gastritis HYSTERECTOMY HX 2017 LAPAROSCOPY SURG CHOLECYSTECTOMY 2000 Cholecystectomy, lap LIG/TRNSXJ FLP TUBE ABDL/VAG APPR UNI/BI 1998 PAST SURGICAL HISTORY OF 2015 ureteral stent placed REMOVAL OF OVARY/TUBE(S) 2022 RSO, LS SLING 2022 TONSILLECTOMY PRIMARY/SECONDARY Tonsillectomy ALLERGIES Penicillins, Bactrim [Sulfamethoxazole-Trimethoprim], and Ultram [Tramadol Hcl] MEDICATIONS apixaban (ELIQUIS) 5 mg tab(s) Take 5 mg by mouth two times a day. carvedilol (COREG) 3.125 mg tablet Take 1 tablet by mouth two times a day with meals. mometasone-formoterol (DULERA) 200-5 mcg/actuation inhaler Inhale 2 Puffs as instructed two times a day. pantoprazole DR (PROTONIX) 40 mg tablet Take 40 mg by mouth once daily. famotidine (PEPCID) 40 mg tablet Take 40 mg by mouth daily at bedtime. albuterol (PROVENTIL) 2.5 mg /3 mL (0.083 %) nebulizer solution Use 3 mL via nebulizer every 6 hours as needed for Wheezing/Shortness of Breath. Inhale over 5-15 minutes albuterol HFA (PROAIR HFA) 90 mcg/actuation inhaler 2 Puffs every 6 hours as needed for Wheezing/Shortness of Breath. Take as directed FAMILY HISTORY Problem Relation Age of Onset Hypertension Mother Breast Cancer Paternal Grandmother lung GI Paternal Grandfather Diabetes Maternal Grandmother from lung ca Diabetes Maternal Grandfather from unk cause Colon Cancer Maternal Uncle age 43 other (POTS) Sister other (Lupus) Other niece other (lupus) Other Anesthesia Problems No Family History Colon Polyps No Family History Social History Tobacco Use Smoking status: Never Smokeless tobacco: Never Vaping Use Vaping Use: Never used Substance Use Topics Alcohol use: Yes Comment: very rare- maybe 2x/ year Drug use: No BP 122/90 Pulse 84 Temp 36.1 ?C (97 ?F) Resp 21 Wt 78.3 kg (172 lb 9.9 oz) LMP 07/24/2016 (Approximate) SpO2 99% BMI 29.63 kg/m? Review of Systems Constitutional: Negative for chills, fever and malaise/fatigue. HENT: Negative for congestion, ear discharge, ear pain, sinus pain and sore throat. Eyes: Negative for blurred vision, pain, discharge and redness. Respiratory: Negative for cough, hemoptysis, sputum production, shortness of breath, wheezing and stridor. Cardiovascular: Negative for chest pain. Gastrointestinal: Negative for abdominal pain, diarrhea, nausea and vomiting. Musculoskeletal: Positive for joint pain. Negative for myalgias. Skin: Negative for itching and rash. Neurological: Negative for dizziness and headaches. Objective Physical Exam Constitutional: General: She is not in acute distress. Appearance: She is not toxic-appearing. HENT: Head: Normocephalic. Nose: Nose normal. Eyes: Pupils: Pupils are equal, round, and reactive to light. Cardiovascular: Rate and Rhythm: Normal rate. Pulmonary: Effort: Pulmonary effort is normal. No respiratory distress. Musculoskeletal: Hands: Cervical back: Normal range of motion. Comments: Pain with palpation the highlighted area. No breaks in the skin. No injury to nail or nailbed noted. Neurovascular intact. No weaknesses. Mild edema noted. No erythema. Skin: General: Skin is warm and dry. Neurological: General: No focal deficit present. Mental Status: She is alert. ASSESSMENT/PLAN: 1. Injury of finger of right hand, initial encounter - ICD9: 959.5, ICD10: S69.91XA - XR DIGIT GENERAL 3V (more content not included)... [facility] 09-22-2023 Miscellaneous Notes Patient notified of results, verbalized understanding of instructions given. Tammy Flynn MA Radiologist read no acute fractures on x-ray. I would recommend continue wearing splint over the next 5 to 7 days for comfort measures. Follow-up with PCP if symptoms or not improving. Justyn Maldonado APRN.[facility] documented in this encounter [facility] 09-22-2023 History of Present illness Narrative Radiology Service Progress Note PATIENT NAME: Damari Rios DATE OF SERVICE: September 22, 2023 TIME: 8:54 AM PATIENT IDENTITY VERIFICATION COMPLETED USING TWO (2) IDENTIFIERS: Name and Date of confirmed by patient verbally. FALL SCREENING: Has the patient had 2 falls in the last year or 1 fall with injury or currently using an Ambulatory Assistive Device (Walker, Cane, Wheelchair, Crutches, etc.)? No PATIENT GENDER DATA: Female. status: : No status: NO. PATIENT RELEVANT IMPLANT DATA REVIEWED: Not Applicable PATIENT PRESENTS WITH AN IMPLANTABLE OR ATTACHED AUTO BRAKE TECHNICIAN: No RADIOLOGY DEPARTMENT: General X-ray: Exam(s) Completed: Upper Extremity X-Ray(s): Fingers/Thumb, right PERIPHERAL IV DATA: Not applicable SIGNED BY: RT Shruthi(R) September 22, 2023 8:54 AM documented in this encounter [facility] 09-22-2023 History of Present illness Narrative Images from the original note were not included. Subjective HPI Nontoxic-appearing female presents urgent care chief complaint hand injury. Duration of symptom 1 day. Associated symptoms right hand pain. Patient states she got fourth digit in the car door yesterday around 8 PM. Feels swollen and painful today. States has not used any OTC medications. No weaknesses. Pain is increased by movement or palpation. [id number]. No surgeries or fractures in the past. Denies chance of . Is not breast-feeding. No numbness no tingling. No decrease sensation. Past medical history prescription medications allergies reviewed. .Patient presents with: Trauma: Smashed rt hand index finger in car door x 1 day PAST MEDICAL HISTORY Diagnosis Date Bipolar I disorder, most recent episode (or current) unspecified Calculus of bile duct without mention of cholecystitis, with obstruction Irritable bowel syndrome Kidney stone Known health problems: none 04/04/2021 Other and unspecified ovarian cyst Other cholecystitis Seasonal allergies Temporomandibular joint disorders, unspecified Unspecified asthma(493.90) PAST SURGICAL HISTORY Procedure Laterality Date ADENOIDECTOMY PRIMARY <AGE 12 2000 Adenoidectomy COLONOSCOPY FLX DX W/COLLJ SPEC WHEN PFRMD 04/03/2012 pt discomfort, normal to transverse colon - ordered BE EGD TRANSORAL BIOPSY SINGLE/MULTIPLE 04/03/2012 mild gastritis HYSTERECTOMY HX 2017 LAPAROSCOPY SURG CHOLECYSTECTOMY 1999 Cholecystectomy, lap LIG/TRNSXJ FLP TUBE ABDL/VAG APPR UNI/BI 1998 PAST SURGICAL HISTORY OF 2016 ureteral stent placed REMOVAL OF OVARY/TUBE(S) 2022 RSO, LS SLING 2022 TONSILLECTOMY PRIMARY/SECONDARY <AGE 13 2000 Tonsillectomy ALLERGIES Penicillins, Bactrim [Sulfamethoxazole-Trimethoprim], and Ultram [Tramadol Hcl] MEDICATIONS apixaban (ELIQUIS) 5 mg tab(s) Take 5 mg by mouth two times a day. carvedilol (COREG) 3.125 mg tablet Take 1 tablet by mouth two times a day with meals. mometasone-formoterol (DULERA) 200-5 mcg/actuation inhaler Inhale 2 Puffs as instructed two times a day. pantoprazole DR (PROTONIX) 40 mg tablet Take 40 mg by mouth once daily. famotidine (PEPCID) 40 mg tablet Take 40 mg by mouth daily at bedtime. albuterol (PROVENTIL) 2.5 mg /3 mL (0.083 %) nebulizer solution Use 3 mL via nebulizer every 6 hours as needed for Wheezing/Shortness of Breath. Inhale over 5-15 minutes albuterol HFA (PROAIR HFA) 90 mcg/actuation inhaler 2 Puffs every 6 hours as needed for Wheezing/Shortness of Breath. Take as directed FAMILY HISTORY Problem Relation Age of Onset Hypertension Mother Breast Cancer Paternal Grandmother lung GI Paternal Grandfather Diabetes Maternal Grandmother from lung ca Diabetes Maternal Grandfather from unk cause Colon Cancer Maternal Uncle age 43 other (POTS) Sister other (Lupus) Other niece other (lupus) Other Anesthesia Problems No Family History Colon Polyps No Family History Social History Tobacco Use Smoking status: Never Smokeless tobacco: Never Vaping Use Vaping Use: Never used Substance Use Topics Alcohol use: Yes Comment: very rare- maybe 2x/ year Drug use: No BP 122/90 Pulse 84 Temp 36.1 C (97 F) Resp 21 Wt 78.3 kg (172 lb 9.9 oz) LMP 07/24/2016 (Approximate) SpO2 99% BMI 29.63 kg/m Review of Systems Constitutional: Negative for chills, fever and malaise/fatigue. HENT: Negative for congestion, ear discharge, ear pain, sinus pain and sore throat. Eyes: Negative for blurred vision, pain, discharge and redness. Respiratory: Negative for cough, hemoptysis, sputum production, shortness of breath, wheezing and stridor. Cardiovascular: Negative for chest pain. Gastrointestinal: Negative for abdominal pain, diarrhea, nausea and vomiting. Musculoskeletal: Positive for joint pain. Negative for myalgias. Skin: Negative for itching and rash. Neurological: Negative for dizziness and headaches. Objective Physical Exam Constitutional: General: She is not in acute distress. Appearance: She is not toxic-appearing. HENT: Head: Normocephalic. Nose: Nose normal. Eyes: Pupils: Pupils are equal, round, and reactive to light. Cardiovascular: Rate and Rhythm: Normal rate. Pulmonary: Effort: Pulmonary effort is normal. No respiratory distress. Musculoskeletal: Hands: Cervical back: Normal range of motion. Comments: Pain with palpation the highlighted area. No breaks in the skin. No injury to nail or nailbed noted. Neurovascular intact. No weaknesses. Mild edema noted. No erythema. Skin: General: Skin is warm and dry. Neurological: General: No focal deficit present. Mental Status: She is alert. ASSESSMENT/PLAN: 1. Injury of finger of right hand, initial encounter - ICD9: 959.5, ICD10: S69.91XA - XR DIGIT GENERAL 3V FRONTAL/LAT/OBL RIGHT IMPRESSION: No acute osseous abnormality Placed in splint. Use as needed for comfort. Follow-up with PCP if symptoms or not improving. Patient was educated on supportive therapies. Patient will follow up with primary care provider as needed. Patient was instructed to immediately proceed to emergency room for any new, worsening, or symptoms lasting longer than anticipated. The patient's clinical presentation is otherwise unremarkable at this time. Based on exam and clinical finding, the patient is stable for discharge. Plan of care was discussed with patient. Patient verbalizes understanding and agrees to plan of care. This note was generated using [employer] software. It may contain errors in wording, punctuation, or spelling. Justyn Maldonado APRN.LIBR[employer] documented in this encounter [facility] 08-18-2023 Note HNO ID: [id number] Author: DEMETRICE HENLEY RN Service: Care Management Author Type: Registered Nurse Type: Care Mgt Progress Note Filed: 08/18/2023 13:30 Note Text: CARE MANAGEMENT DISCHARGE NOTE SERVICE DATE: August 18, 2023 SERVICE TIME: 1:29 PM Admission Date: 08/14/2023 LOS: 4 days Discharge Arrangement Discharge Arrangement: Home with Self Care Caregiver Assessment Caregiver is ready, willing and able to meet the patient's needs as recommended by the inter-professional team: No Caregiver needed Additional Information: Pt medically cleared for discharge. Disposition home, self-care. Friend, Ysabel, to transport patient home. No skilled needs. SIGNATURE: Demetrice Henley RN PATIENT NAME: Damari Rios DATE: August 18, 2023 TIME: 1:29 PM CONTACT #: [phone] [facility] 08-17-2023 Note HNO ID: [id number] Author: ZAINAB CROFT MD Service: Hospital Medicine Author Type: Physician Type: Progress Notes Filed: 08/17/2023 20:19 Note Text: PROGRESS NOTE - INTERNAL MEDICINE PATIENT NAME: Damari Rios SERVICE DATE: 08/17/2023 SERVICE TIME: 8:18 PM SUBJECTIVE INTERVAL HISTORY OF PRESENT ILLNESS: Irritable bowel suspected. GI following. Stool studies ordered. Remains on as needed Levsin Diet advance. Discussed with nursing staff, heparin discontinued back on Eliquis. ROS: OBJECTIVE PHYSICAL EXAM: Patient Vitals for the past 24 hrs: BP Temp Temp src Pulse Resp SpO2 08/17/232008 112/65 36.5 ?C (97.7 ?F) Oral 76 18 100 % 08/17/23 1730 113/67 -- -- 60 -- 100 % 08/17/23 1506 104/66 36.7 ?C (98.1 ?F) Oral 61 18 98 % 08/17/23 1210 -- -- -- 67 -- -- 08/17/23 1202 -- -- -- 69 18 98 % 08/17/23 1106 104/61 36.5 ?C (97.7 ?F) Oral (!) 57 18 96 % 08/17/23 0919 -- -- -- 72 -- 100 % 08/17/23 0823 -- -- -- 61 -- -- 08/17/23 0814 -- -- -- 67 16 100 % 08/17/23 0714 122/73 36.6 ?C (97.9 ?F) Oral (!) 59 18 97 % 08/17/23 0405 122/63 36.3 ?C (97.3 ?F) Oral 70 18 96 % 08/16/23 2259 129/76 36.4 ?C (97.5 ?F) Oral 83 18 92 % 08/16/232108 -- -- -- 88 -- 96 % 08/16/232101 -- -- -- 74 18 94 % Body mass index is 27.81 kg/m?. Intake/Output Summary (Last 24 hours) at 08/17/2023 0659 Last data filed at 08/16/2023 1615 Gross per 24 hour Intake 600 ml Output -- Net 600 ml GENERAL: healthy, alert, no distress, cooperative SKIN: NECK: no jugulovenous distention, no carotid bruits, carotid pulse normal contour, supple LUNGS: Lungs clear to auscultation. Good diaphragmatic excursion. CARDIAC: normal S1 and S2; no rubs, murmurs, or gallops ABDOMEN: Abdomen soft, non-tender. BS normal. No masses or organomegaly. EXTREMETIES: Extremities normal. No deformities, edema, clubbing or skin discoloration. NEURO: Alert, oriented X 3, Gait normal. Reflexes normal and symmetric. Sensation grossly intact., Cranial nerves II-XII intact PULSES: 2+ radial, 2+ carotid DATA: Diagnostic tests reviewed for today's visit: CBC: Recent Labs 08/17/23918 WBC 9.64 RBC 4.35 HB 13.6 HCT 38.8 PLT 286 MCV 89.2 MCH 31.3 MPV 8.5* Coags: Recent Labs 08/17/23 1253 APTT 68.0* BMP: Recent Labs 08/17/23 0919 NA 137 K 4.1 CHLOR 106* CO2 19* BUN 15 CREAT 0.96 GLUC 119* Cardiac Enzymes: No results for input(s): CK , MB , CKMB , TROPT in the last 24 hours. Liver Function, Amylase, Lipase: Recent Labs 08/17/23 0919 TPROT 7.2 ALB 4.1 ALT 17 AST 14 ALKPHOS 81 TBILI 0.3 MG/PHOS: No results for input(s): MG , P in the last 24 hours. ABG's: No results for input(s): PH , PCO2 , PO2 , BE , HCO3 , CO2CT , O2HB , COHB , MHGB , TEMP , PHTC , PCO2T , PO2T , O2AD in the last 24 hours. Recent diagnostic tests reviewed. ASSESSMENT AND PLAN Active Hospital Problems Chest pain [R07.9] Foreign body in lung [T17.808A] S/p bronchoscopic retrieval. Abdominal pain being well for GI. Approaching discharge, likely discharge tomorrow SIGNATURE: Zainab Croft MD DATE: August 17, 2023 TIME: 8:18 PM [facility] 08-17-2023 Note HNO ID: [id number] Author: SULLY ONEILL PA-C Service: Pulmonary Disease Author Type: Physician Assembly Line Robot Operator Type: Progress Notes Filed: 08/17/2023 11:49 Note Text: PULMONARY PROGRESS NOTE *Some elements have been copied from the Pulmonary note dated 08/16/23. The elements have been updated where appropriate and reflect current decision making from today, August 17, 2023. ASSESSMENT/PLAN Foreign body in airway - Metallic FB in RLL on CT imaging; likely facial piercing she lost recently - successfully removed via bronchoscopy 08/16/23 Recent PE - Dx on CT 06/01/2023 - Likely provoked following salipingo-oophrectomy/urethral sling surgery May 2023 - on Eliquis prior to admit, switched to heparin for bronch Asthma - Recently started on Dulera on discharge from recent prior admission - Stable Pulmonary Plan: - Continue LABA/ICS and albuterol nebs. Resume Dulera on discharge. - Ok to resume Eliquis from Pulmonary standpoint - Management for abdominal pain per Primary - Outpatient Pulmonary follow up scheduled No further recommendations at this time. Will sign off. Thank you for allowing us to participate in the care of this patient. Please call with any questions. TODAY'S VISIT Reassess respiratory status INTERVAL HISTORY Underwent bronchoscopy with facial piercing removed yesterday. Breathing stable. No wheezing or hemoptysis. Reports abdomonial pain which has persisted since admission. MEDICATIONS Current Facility-Administered Medications Medication Dose Route Frequency lidocaine 4 % 1 Patch (SALONPAS) 1 Patch TRANSDERMAL DAILY And lidocaine - VERIFY PATCH OTHER q 8 H ibuprofen 800 mg tab(s) (MOTRIN) 800 mg ORAL q 8 H PRN acetaminophen 650 mg tab(s) (TYLENOL) 650 mg ORAL q 6 H PRN heparin iv infusion 25,000 units in NaCl 0.45% 250 mL STANDARD NOMOGRAM 0-3,000 Units/hr INTRAVENOUS CONTINUOUS And heparin RATE CHANGE bolus 1,000-10,000 Units for subtherapeutic PTTAC results 1,000-10,000 Units INTRAVENOUS PRN HYDROcodone 5 mg - acetaminophen 325 mg tablet (NORCO) 1 tablet ORAL q 6 H PRN benzocaine-menthol 1 Lozenge (CEPACOL) 1 Lozenge MUCOUS MEMBRANE (TOPICAL MOUTH AND THROAT) q 2 H PRN mometasone-formoterol 100-5 mcg/actuation 2 Puff inhaler (DULERA) 2 Puff INHALATION BID guaiFENesin-dextromethorphan 100-10 mg/5 mL 10 mL oral liquid (ROBITUSSIN DM) 10 mL ORAL q 4 H PRN heparin RATE CHANGE bolus 1,000-10,000 Units for subtherapeutic PTTAC results 1,000-10,000 Units INTRAVENOUS PRN methocarbamol 500 mg tab(s) (ROBAXIN) 500 mg ORAL TID PRN albuterol 2.5 mg /3 mL (0.083 %) 2.5 mg (PROVENTIL) 2.5 mg INHALATION q 4 H while awake carvedilol 3.125 mg tab(s) (COREG) 3.125 mg ORAL BID w MEALS amLODIPine 5 mg tab(s) (NORVASC) 5 mg ORAL DAILY NaCl 0.9% iv flush bag 20 mL INTRAVENOUS PRN ondansetron 4 mg tab(s) (ZOFRAN) 4 mg ORAL q 6 H PRN Or ondansetron (PF) 4 mg injection (ZOFRAN) 4 mg INTRAVENOUS q 6 H PRN NaCl 0.9% iv flush bag 20 mL INTRAVENOUS PRN pantoprazole DR 40 mg tab(s) (PROTONIX) 40 mg ORAL DAILY (6 AM) famotidine 40 mg tab(s) (PEPCID) 40 mg ORAL AT BEDTIME OBJECTIVE BP 104/61 Pulse (!) 57 Temp 36.5 ?C (97.7 ?F) (Oral) Resp 18 Ht 162.6 cm (5' 4 ) Wt 73.5 kg (162 lb) LMP 07/24/2016 (Approximate) SpO2 96% BMI 27.81 kg/m? Temp (24hrs), Av.4 ?C (97.6 ?F), Min:36.3 ?C (97.3 ?F), Max:36.6 ?C (97.9 ?F) Oxygen - Room air Gen'l - Awake in bed. Conversant. HENT - Normocephalic, atraumatic Lungs - Clear to auscultation, bilaterally Cardio/Vasc - No LE edema Skin - No cyanosis MS/Extrems - NORTON Neuro/Psych - Alert and oriented Data: CBC, Coags, BMP, Mg, Phos Recent Labs 08/17/23 0919 08/17/23 0559 08/16/23 2219 08/16/23 0505 08/15/23 2330 08/15/23 1736 08/15/23 1103 08/15/23 0748 08/14/23 2029 08/14/23 1625 WBC 9.64 -- -- 5.37 -- -- 5.14 -- -- 6.01 HB 13.6 -- -- 13.6 -- -- 14.5 -- -- 15.1 HCT 38.8 -- -- 40.1 -- -- 43.3 -- -- 45.2 PLT 286 -- -- 276 -- -- 260 -- -- 330 INR -- -- -- -- -- -- 1.0 -- -- -- APTT -- 100.8* 78.0* -- 40.2* < > 49.1* -- -- -- NA 137 -- -- -- -- -- -- 139 137 137 K 4.1 -- -- -- -- -- -- 4.0 3.6* -- CHLOR 106* -- -- -- -- -- -- 105 103 101 CO2 19* -- -- -- -- -- -- 22 24 25 BUN 15 -- -- -- -- -- -- 19 13 14 CREAT 0.96 -- -- -- -- -- -- 0.94 0.96 0.91 GLUC 119* -- -- -- -- -- -- 79 86 85 CA 9.0 -- -- -- -- -- -- 8.8 8.8 8.8 MG -- -- -- -- -- -- -- -- -- 2.2 < > = values in this interval not displayed. Plan above discussed with staff Trim Sawyer Dr. Greene ~~~~~~~~~~~~~~~~~~~~~~~~~~~~~~~~~~~ ~~~~~~~~~~~~~~~~~~ Sully Oneill PA-C [facility] Pager: [phone] [facility] 08-17-2023 Note HNO ID: [id number] Author: SUMANTH ESCALANTE RN Service: Care Management Author Type: Registered Nurse Type: Care Mgt Progress Note Filed: 08/17/2023 10:50 Note Text: CARE MANAGEMENT PROGRESS NOTE SERVICE DATE: 08/17/2023 SERVICE TIME: 10:49 AM LOS: 3 days Medical/Social barriers to discharge: None Discharge plan: Plan is discharge home self care, friend to transport home at discharge. CM to continue to follow. SIGNATURE: Sumanth Escalante RN PATIENT NAME: Damari Rios DATE: August 17, 2023 TIME: 10:49 AM PAGER/CONTACT #: [phone] [facility] 08-16-2023 Note HNO ID: [id number] Author: ZAINAB CROFT MD Service: Hospital Medicine Author Type: Physician Type: Progress Notes Filed: 08/16/2023 15:51 Note Text: PROGRESS NOTE - INTERNAL MEDICINE PATIENT NAME: Damari Rios SERVICE DATE: 08/16/2023 SUBJECTIVE INTERVAL HISTORY OF PRESENT ILLNESS: Plans for bronchoscopy to remove foreign body retrieval noted Pulmonary, vascular medicine team following. ROS: OBJECTIVE PHYSICAL EXAM: Patient Vitals for the past 24 hrs: BP Temp Temp src Pulse Resp SpO2 08/16/23 0810 -- -- -- 60 -- -- 08/16/23 0800 -- -- -- 70 18 97 % 08/16/23 0759 152/78 36.3 ?C (97.3 ?F) Oral 60 18 98 % 08/15/23 2336 126/85 36.4 ?C (97.5 ?F) Oral 60 18 98 % 08/15/23 2048 143/87 36.4 ?C (97.5 ?F) Oral 71 18 98 % 08/15/232020 -- -- -- 68 -- -- 08/15/232014 -- -- -- 74 -- 94 % 08/15/23 1554 132/82 36.6 ?C (97.9 ?F) Oral 62 21 97 % Body mass index is 27.81 kg/m?. Intake/Output Summary (Last 24 hours) at 08/16/2023 0659 Last data filed at 08/15/2023 1309 Gross per 24 hour Intake 0 ml Output -- Net 0 ml GENERAL: healthy, alert, no distress, cooperative SKIN: NECK: no jugulovenous distention, no carotid bruits, carotid pulse normal contour, supple LUNGS: Lungs clear to auscultation. Good diaphragmatic excursion. CARDIAC: normal S1 and S2; no rubs, murmurs, or gallops ABDOMEN: Abdomen soft, non-tender. BS normal. No masses or organomegaly. EXTREMETIES: Extremities normal. No deformities, edema, clubbing or skin discoloration. NEURO: Alert, oriented X 3, Gait normal. Reflexes normal and symmetric. Sensation grossly intact., Cranial nerves II-XII intact PULSES: 2+ radial, 2+ carotid DATA: Diagnostic tests reviewed for today's visit: CBC: Recent Labs 08/16/23 0505 WBC 5.37 RBC 4.44 HB 13.6 HCT 40.1 PLT 276 MCV 90.3 MCH 30.6 MPV 8.9* Coags: Recent Labs 08/15/23 2330 APTT 40.2* BMP: No results for input(s): NA , K , CHLOR , CO2 , BUN , CREAT , GLUC in the last 24 hours. Cardiac Enzymes: No results for input(s): CK , MB , CKMB , TROPT in the last 24 hours. Liver Function, Amylase, Lipase: No results for input(s): TPROT , ALB , ALT , AST , ALKPHOS , TBILI , AMYLASE , LIPASE , LACTATE in the last 24 hours. MG/PHOS: No results for input(s): MG , P in the last 24 hours. ABG's: No results for input(s): PH , PCO2 , PO2 , BE , HCO3 , CO2CT , O2HB , COHB , MHGB , TEMP , PHTC , PCO2T , PO2T , O2AD in the last 24 hours. Recent diagnostic tests reviewed. ASSESSMENT AND PLAN Active Hospital Problems Chest pain [R07.9] Foreign body in lung [T17.808A] Pulm embolism Case management following for discharge considerations SIGNATURE: Zainab Croft MD DATE: August 16, 2023 TIME: 3:50 PM [facility] 08-16-2023 Note HNO ID: [id number] Author: TOBIN SONI APRN.ASSISTANT COUNTY ENGINEER Service: ? Author Type: Nurse Blunger Loader Type: Anesthesia Procedure Notes Filed: 08/16/2023 15:31 Note Text: ANESTHESIOLOGY PROCEDURE NOTE Airway General Information Procedure Start Time/Medication Administration: 08/16/2023 3:18 PM Patient location during procedure: OR Timeout Performed Pre-procedure: timeout performed Patient identity confirmed: arm band, care steam fitter and patient Staffing Anesthesiologist: Chito Sutton MD ASSISTANT COUNTY ENGINEER: Tobin Soni APRN.ASSISTANT COUNTY ENGINEER Performed by: WEI Indications and Patient Condition Indications for airway management: anesthesia Preoxygenated: yes anesthesia circuit Patient position: sniffing Method: asleep Cricoid Pressure: No Manual In-Line Stabilization: No Difficult Mask: No Final Airway Details Final airway type: endotracheal airway Final Endotracheal Airway: ETT Cuffed: yes Successful intubation technique: video laryngoscopy Devices used: Gregory Endotracheal tube insertion site: oral Blade size: #3 ETT size (mm): 8.5 Measured from: lips Measurement (cm): 22 Placement verified by: bronchoscopy and capnometry Cormack-Lehane Classification: grade I - full view of glottis Number of attempts at approach: 1 Failed airway: no Unrecognized esophageal intubation: no Airway not difficult SIGNATURE: Tobin Soni APRN.CRNA PATIENT NAME: Damari Rios DATE: August 16, 2023 TIME: 3:29 PM CSN: [id number] [facility] 08-16-2023 Note Patient Name: Jelena Rios Procedure Date: 08/16/2023 2:56 PM Date of : 1975 Admit Type: Outpatient Age: 47 Gender: Female Note Status: Finalized Procedure: Bronchoscopy Indications: Foreign body retrieval Providers: Mynor Lynn MD (Doctor) Referring MD: Requesting Physician: Marysol Greene MD Patient Profile: This is a 47 year old female. Refer to note in patient chart for documentation of history and physical. Medicines: General Anesthesia Complications: No immediate complications Estimated Blood Loss: Estimated blood loss: none. Procedure: Pre-Anesthesia Assessment: - A History and Physical has been performed. Patient meds and allergies have been reviewed. The risks and benefits of the procedure and the sedation options and risks were discussed with the patient. All questions were answered and informed consent was obtained. Patient identification and proposed procedure were verified prior to the procedure by the physician, the nurse, the anesthesiologist and the medicine technologist in the procedure room. Mental Status Examination: normal. Airway Examination: normal oropharyngeal airway. Respiratory Examination: clear to auscultation. CV Examination: regular rate and rhythm. ASA Grade Assessment: I - A normal healthy patient. After reviewing the risks and benefits, the patient was deemed in satisfactory condition to undergo the procedure. The anesthesia plan was to use general anesthesia. Immediately prior to administration of medications, the patient was re-assessed for adequacy to receive sedatives. The heart rate, respiratory rate, oxygen saturations, blood pressure, adequacy of pulmonary ventilation, and response to care were monitored throughout the procedure. The physical status of the patient was re-assessed after the procedure. After confirmation of universal protocol, the bronchoscope was introduced. The Bronchoscope was introduced through the mouth, via the endotracheal tube (the patient was intubated for the procedure) and advanced to the tracheobronchial tree. The bronchoscope was introduced through the mouth, via the endotracheal tube (the patient was intubated for the procedure) and advanced to the right lung only. The procedure was accomplished without difficulty. The patient tolerated the procedure well. Findings: The endotracheal tube is well positioned via the tracheostomy. The visualized portion of the trachea is of normal caliber. The oswaldo is sharp. The tracheobronchial tree of the left lung was examined to at least the first subsegmental level. Bronchial mucosa and anatomy are normal; there are no endobronchial lesions, and no secretions. Right Lung Abnormalities: Piercing post was found in the lateral basal segment of the right lower lobe (B9). Could not retrieve with forceps, could not pull forward with #3 Franco Balloon. Was able to get the NCircle Nitinol Stone extractor to pull back the retrieve the post. No airway injury- the segment was washed with saline. no other lesion seen- limited exam Impression: - The airway examination of the left lung was normal. - Piercing post was found in the lateral basal segment of the right lower lobe (B9). and removed. Recommendation: - [facility]. Attending Participation: I personally performed the entire procedure. MD Mynor Valdes MD 08/16/2023 4:02:52 PM This report has been signed electronically by Mynor Lynn MD Number of Addenda: 0 Note Initiated On: 08/16/2023 2:56 PM Procedure Start: 3:23:58 PM Procedure End: 3:45:43 PM [facility] 08-16-2023 Note HNO ID: [id number] Author: SULLY ONEILL PA-C Service: Pulmonary Disease Author Type: Physician Assembly Line Robot Operator Type: Progress Notes Filed: 08/16/2023 09:53 Note Text: PULMONARY PROGRESS NOTE *Some elements have been copied from the Pulmonary note dated 08/15/23. The elements have been updated where appropriate and reflect current decision making from today, August 16, 2023. ASSESSMENT/PLAN Foreign body in airway - Metallic FB in RLL on CT imaging; likely facial piercing she lost recently Recent PE - Dx on CT 06/01/2023 - Likely provoked following salipingo-oophrectomy/urethral sling surgery May 2023 - on Eliquis prior to admit - last dose morning of 08/14/23 Asthma - Recently started on Dulera on discharge from recent prior admission - Stable Pulmonary Plan: - Planned for point to point bronchoscopy by IP team today to remove foreign body - AC on hold - Continue LABA/ICS with bronchodilator nebs - Patient states that previously listed allergy to codeine (reaction: rash) is incorrect and she has taken it in the past without adverse reactions. Allergy was removed. TODAY'S VISIT Reassess respiratory status INTERVAL HISTORY Feeling ok. No wheeze. Remains on room air. Have discussed with nursing and HOIST OPERATOR. HOIST OPERATOR called this morning to confirm transport for point to point bronchoscopy. MEDICATIONS Current Facility-Administered Medications Medication Dose Route Frequency ibuprofen 800 mg tab(s) (MOTRIN) 800 mg ORAL q 8 H PRN acetaminophen 650 mg tab(s) (TYLENOL) 650 mg ORAL q 6 H PRN mometasone-formoterol 100-5 mcg/actuation 2 Puff inhaler (DULERA) 2 Puff INHALATION BID guaiFENesin-dextromethorphan 100-10 mg/5 mL 10 mL oral liquid (ROBITUSSIN DM) 10 mL ORAL q 4 H PRN heparin RATE CHANGE bolus 1,000-10,000 Units for subtherapeutic PTTAC results 1,000-10,000 Units INTRAVENOUS PRN methocarbamol 500 mg tab(s) (ROBAXIN) 500 mg ORAL TID PRN albuterol 2.5 mg /3 mL (0.083 %) 2.5 mg (PROVENTIL) 2.5 mg INHALATION q 4 H while awake carvedilol 3.125 mg tab(s) (COREG) 3.125 mg ORAL BID w MEALS amLODIPine 5 mg tab(s) (NORVASC) 5 mg ORAL DAILY NaCl 0.9% iv flush bag 20 mL INTRAVENOUS PRN ondansetron 4 mg tab(s) (ZOFRAN) 4 mg ORAL q 6 H PRN Or ondansetron (PF) 4 mg injection (ZOFRAN) 4 mg INTRAVENOUS q 6 H PRN NaCl 0.9% iv flush bag 20 mL INTRAVENOUS PRN pantoprazole DR 40 mg tab(s) (PROTONIX) 40 mg ORAL DAILY (6 AM) famotidine 40 mg tab(s) (PEPCID) 40 mg ORAL AT BEDTIME OBJECTIVE BP 152/78 Pulse 60 Temp 36.3 ?C (97.3 ?F) (Oral) Resp 18 Ht 162.6 cm (5' 4 ) Wt 73.5 kg (162 lb) LMP 07/24/2016 (Approximate) SpO2 97% BMI 27.81 kg/m? Temp (24hrs), Av.4 ?C (97.5 ?F), Min:36.3 ?C (97.3 ?F), Max:36.6 ?C (97.9 ?F) Oxygen - Room air Gen'l - Awake in bed. Conversant. HENT - Normocephalic, atraumatic Lungs - Clear to auscultation, bilaterally Cardio/Vasc - No LE edema Skin - Warm, dry MS/Extrems - [place] Neuro/Psych - Alert and oriented Data: CBC, Coags, BMP, Mg, Phos Recent Labs 08/16/23 0505 08/15/23 2330 08/15/23 1957 08/15/23 1736 08/15/23 1103 08/15/23 1103 08/15/23 0748 08/14/23202808/14/23 1625 WBC 5.37 -- -- -- -- 5.14 -- -- 6.01 HB 13.6 -- -- -- -- 14.5 -- -- 15.1 HCT 40.1 -- -- -- -- 43.3 -- -- 45.2 PLT 276 -- -- -- -- 260 -- -- 330 INR -- -- -- -- -- 1.0 -- -- -- APTT -- 40.2* >139.0* >139.0* < > 49.1* -- -- -- NA -- -- -- -- -- -- 139 137 137 K -- -- -- -- -- -- 4.0 3.6* -- CHLOR -- -- -- -- -- -- 105 103 101 CO2 -- -- -- -- -- -- 24 25 BUN -- -- -- -- -- -- 19 13 14 CREAT -- -- -- -- -- -- 0.94 0.96 0.91 GLUC -- -- -- -- -- -- 79 86 85 CA -- -- -- -- -- -- 8.8 8.8 8.8 MG -- -- -- -- -- -- -- -- 2.2 < > = values in this interval not displayed. Plan above discussed with staff Trim Sawyer Dr. Greene ~~~~~~~~~~~~~~~~~~~~~~~~~~~~~~~~~~~ ~~~~~~~~~~~~~~~~~~ Sully Oneill PA-C [facility] Pager: [phone] [facility] 08-16-2023 Note HNO ID: [id number] Author: CATRACHITA WELDON RN Service: Care Management Author Type: Registered Nurse Type: Care Mgt Progress Note Filed: 08/16/2023 09:00 Note Text: CARE MANAGEMENT PROGRESS NOTE SERVICE DATE: 08/16/2023 SERVICE TIME: 8:59 AM LOS: 2 days Post-Acute Discharge Planning Patient Goal(s): The patient/family expressed post-acute services are not needed at this time. Anticipated # of Days Until Discharge: 2 Needs Prior to Discharge: Needs Prior to Discharge: Discharge Prescriptions Post-Acute Discharge Plan: Bronchoscopy scheduled for today at [facility], for removal of foreign body. Spoke with [facility] transport set up for [phone], she is calling to confirm. Per staff, patient to return following procedure. Current plan to return home with self-care, independent prior to admission. Anticipate no skilled needs or d/c transport. SIGNATURE: Catarchita Weldon RN PATIENT NAME: Damari Rios DATE: August 16, 2023 TIME: 8:59 AM PAGER/CONTACT #: [facility] 08-15-2023 Note HNO ID: [id number] Author: RODDY RASHEED RN Service: Care Management Author Type: Registered Nurse Type: Care Mgt Initial Assessment Filed: 08/15/2023 14:43 Note Text: CARE MANAGEMENT: ASSESSMENT AND DISCHARGE PLAN SERVICE DATE: August 15, 2023 SERVICE TIME: 2:40 PM PCP: No primary care provider on file. Primary Contact: Extended Emergency Contact Information Primary Emergency Contact: Ysabel Valadez Address: [address] [address] [facility] Mobile Relation: Friend Admission Status: Inpatient Insurance Provider: [facility] MEDICA[employer] Discharge Planning requested by: Per Department Practice Potential Transition Plans Home Advance Directives Current Advance Directive: Health Care Power of Casino Gaming Worker In Chart: Yes Up To Date and Valid: Yes Current Living Arrangements and Support Lives with: Friends Type of Residence: Private Residence (House) Does the patient have to climb stairs at home?: Yes;stairs outside the home Support: Children, Family members, Friends/neighbors How do you manage to accomplish the following: Independent: Ambulation;Bathe/Shower;Dress;Meals /Meal Prep;Going to the bathroom;Medication Management;Transportation to appointments/community Current Services/Equipment Current Post-Acute Service(s): None Discharge Planning Patient Goal(s): The patient/family expressed post-acute services are not needed at this time. [place] of Choice Explained: [place] of Choice Given: No Reason Not Given: No placements necessary Are you interested in bedside delivery of your medications? No Discharge Planning Participant(s): Patient Caregiver Assessment: Caregiver is ready, willing and able to meet the patient's needs as recommended by the inter-professional team: No Caregiver needed Transport at Discharge: Transportation Arrangements: Car Needs Prior to Discharge: Needs Prior to Discharge: Discharge Prescriptions Post-Acute Discharge Plan: NCM spoke with patient at bedside. Patient admitted with chest pain. Telemetry. NPO. Heparin drip. Lovenox. Gastroccult. Monitor IANDO's. Monitor lab and imaging results. Cardiology consult. Patient plans to discharge home self-care. Patient drove herself to the hospital and plans to drive herself home. CM to continue to follow. SIGNATURE: Roddy Rasheed RN PATIENT NAME: Damari Rios DATE: August 15, 2023 TIME: 2:40 PM CONTACT #: [phone] [facility] 08-06-2023 History of Present illness Narrative Referred by Dr. No ref. provider found for Hypertension History Of Present Illness: Dear Dr. Peguero, I had the pleasure of meeting Mrs. Brand today at [facility] for evaluation of hypertension. The patient is seen in collaboration with Dr. Veronica. Mrs. Brand is a very pleasant 47 year old female with a history of HTN, fibromyalgia, astthma, GERD and PE (06/2023), she denies history of smoking. Family history of HTN, and CAD. She has had difficulty controlling her blood pressure. She was admitted in June 2023 with a PE at [facility], echocardiogram showed a preserved LV function. Heart cath during her admission showed normal coronary arteries. Blood pressure has been elevated. She complains of frequent intermittent heart palpitations, will notice them sitting and on exertion. With the heart palpitations she has shortness of breath and chest pain. She states she feels her heart is popping out of her chest and has lightheadness. Complains of general fatigue and frequent heart burn. She will notice the heart palpitations wake her up at night. Feels her hands are swollen at times. Review of Systems Constitutional: Positive for malaise/fatigue. HENT: Negative. Eyes: Negative. Cardiovascular: Positive for dyspnea on exertion and palpitations. Respiratory: Negative. Endocrine: Negative. Hematologic/Lymphatic: Negative. Skin: Negative. Musculoskeletal: Positive for muscle weakness and myalgias. Gastrointestinal: Negative. Neurological: Negative. Psychiatric/Behavioral: Negative. Past Medical History: She has a past medical history of Asthma, Colon polyp, COPD (chronic obstructive pulmonary disease) ([facility]), Dysfunctional uterine bleeding, GERD (gastroesophageal reflux disease), Hypertension, Nephrolithiasis, Personal history of other diseases of the circulatory system, Personal history of other diseases of the respiratory system, and Polycystic ovarian disease. Past Surgical History: She has a past surgical history that includes Hysterectomy; Tubal ligation; Cholecystectomy; and Cystoscopy. Social History: She reports that she has never smoked. She has never been exposed to tobacco smoke. She has never used smokeless tobacco. She reports that she does not drink alcohol and does not use drugs. Family History: Family History Problem Relation Name Age of Onset Ovarian cancer Mother Coronary artery disease Mother Other (Diabetes mellitus) Mother Hypertension Father Heart disease Father Hypertension Sister Heart disease Sister Hypertension Other grandparent Heart disease Other grandparent Heart disease Other grandmother 52 Allergies: Bee venom protein (honey bee), Penicillins, Naproxen, Sulfamethoxazole-trimethoprim, and Tramadol hcl Outpatient Medications: Current Outpatient Medications Medication Instructions acetaminophen (TYLENOL) 1,000 mg, oral, Every 6 hours PRN albuterol (Ventolin HFA) 90 mcg/actuation inhaler 2 puffs, inhalation, Every 4 hours PRN albuterol 2.5 mg /3 mL (0.083 %) nebulizer solution 3 mL, inhalation, Every 6 hours PRN, Inhale over 5-15 minutes
apixaban (ELIQUIS) 5 mg, oral, 2 times daily carvedilol (COREG) 6.25 mg, oral, 2 times daily dicyclomine (BENTYL) 20 mg, oral, 4 times daily before meals and nightly EPINEPHrine 0.3 mg/0.3 mL injection syringe Use as directed for bee sting famotidine (PEPCID) 40 mg, oral, Nightly ketorolac (TORADOL) 10 mg, oral, Every 6 hours PRN ondansetron (ZOFRAN) 4 mg, oral, Every 8 hours PRN pantoprazole (PROTONIX) 40 mg, oral, Daily before breakfast sucralfate (CARAFATE) 1 g, oral, 4 times daily before meals and nightly Last Recorded Vitals: Vitals: 08/06/23 1434 BP: 162/90 Pulse: 66 SpO2: 94% Weight: 78.6 kg (173 lb 4.5 oz) Physical Exam: Physical Exam Vitals reviewed. HENT: Head: Normocephalic. Nose: Nose normal. Eyes: Pupils: Pupils are equal, round, and reactive to light. Cardiovascular: Rate and Rhythm: Normal rate and regular rhythm. Pulmonary: Effort: Pulmonary effort is normal. Breath sounds: Normal breath sounds. Abdominal: General: Abdomen is flat. Palpations: Abdomen is soft. Musculoskeletal: General: Normal range of motion. Cervical back: Normal range of motion. Skin: General: Skin is warm and dry. Neurological: General: No focal deficit present. Mental Status: He is alert and oriented to person, place, and time. Psychiatric: Mood and Affect: Mood normal. Last Labs: CBC - Lab Results Component Value Date WBC 8.0 05/14/2023 HGB 14.1 05/14/2023 HCT 43.2 05/14/2023 MCV 91 05/14/2023 PLT 352 05/14/2023 CMP - Lab Results Component Value Date CALCIUM 9.4 05/14/2023 PHOS 2.9 03/13/2023 PROT 7.2 05/14/2023 ALBUMIN 4.2 05/14/2023 AST 16 05/14/2023 ALT 14 05/14/2023 ALKPHOS 57 05/14/2023 BILITOT 0.3 05/14/2023 LIPID PANEL - Lab Results Component Value Date CHOL 178 03/26/2023 TRIG 93 03/26/2023 HDL 56.2 03/26/2023 CHHDL 3.2 03/26/2023 CHHDL 4.3 07/08/2020 LDLF 103 (H) 03/26/2023 VLDL 19 03/26/2023 RENAL FUNCTION PANEL - Lab Results Component Value Date GLUCOSE 93 05/14/2023 NA 140 05/14/2023 K 3.9 05/14/2023 CL 104 05/14/2023 CO2 28 05/14/2023 ANIONGAP 12 05/14/2023 BUN 21 05/14/2023 CREATININE 1.17 (H) 05/14/2023 GFRMALE CANCELED 03/14/2023 CALCIUM 9.4 05/14/2023 PHOS 2.9 03/13/2023 ALBUMIN 4.2 05/14/2023 Lab Results Component Value Date BNP 199 (H) 03/11/2023 HGBA1C 5.4 03/26/2023 Last Cardiology Tests: ECG: ECG 12 lead 05/29/2023 sinus rhythm heart rate 54 bpm Echo: Echo 12/2020 1. The left ventricular systolic function is normal with a 65% estimated ejection fraction. 2. There is mild aortic valve regurgitation. Ejection Fractions: LVEF 65% Cath: Stress Test: Stress test 12/2020 1. No electrocardiographic evidence for ischemia at a maximal workload. 2. Patient had chest pain with exercise. 3. The adequate level of stress was achieved. Cardiac Imaging: CT HEART CALCIUM SCORING WO IV CONTRAST 01/18/2021 LM 0, LAD 0, LCx 0, RCA 0, Total 0 Assessment/Plan Mrs. Rios is a very pleasant 47 year old female with a history of asthma, HTN, and GERD, recently admitted to [facility] 06/2023 with PE. She had a heart cath that showed normal coronary arteries, echo showed a preserved LV function. She complains of increased heart palpitations that occur intermittently through out the day. She will have a heart monitor to evaluate for an arrhythmia. Blood pressure is elevated, she will be started on Amlodipine 5 mg daily. Plan -call with any questions -start Amlodipine 5 mg daily -continue Carvedilol -heart monitor for two weeks -follow up in two months -continue Eliquis I appreciate the opportunity to participate in the patient's care, please call with any questions NASREEN Hawley documented in this encounter [facility] Work Phone: 08-06-2023 Instructions NASREEN Hawley - 08/06/2023 2:20 PM EST CALL WITH ANY QUESTIONS HEART MONITOR FOR TWO WEEKS START AMLODIPINE 5 MG DAILY FOLLOW UP IN TWO MONTHS documented in this encounter [facility] Work Phone: 07-03-2023 History of Present illness Narrative Subjective Patient ID: Damari Rios is a 47 y.o. female who presents for URI (Recent PE-06/07. Now URI, negative covid test today. States recent exposure to RSV). HPI Patient recently diagnosed with left sided multiple segmental PE after recent surgical procedure. She is on Eliquis now. Patient need medicine to be renewed. Also patient has been exposed to RSV and has fatigue symptoms. Review of Systems Constitutional: Positive for fatigue. Negative for activity change, appetite change, fever and unexpected weight change. HENT: Negative for dental problem, ear discharge, hearing loss, nosebleeds, postnasal drip, sinus pain, sore throat, trouble swallowing and voice change. Eyes: Negative for photophobia, pain and visual disturbance. Respiratory: Negative for cough, chest tightness, shortness of breath, wheezing and stridor. Cardiovascular: Negative for chest pain, palpitations and leg swelling. Gastrointestinal: Negative for abdominal pain, blood in stool, constipation, diarrhea, nausea and vomiting. Endocrine: Negative for polydipsia, polyphagia and polyuria. Genitourinary: Negative for decreased urine volume, dyspareunia, dysuria, flank pain, hematuria and urgency. Musculoskeletal: Negative for arthralgias, back pain, gait problem, joint swelling, myalgias and neck pain. Skin: Negative for color change, rash and wound. Allergic/Immunologic: Negative for environmental allergies and food allergies. Neurological: Positive for weakness. Negative for dizziness, tremors, seizures, syncope, facial asymmetry, speech difficulty, numbness and headaches. Hematological: Negative for adenopathy. Psychiatric/Behavioral: Negative for behavioral problems, confusion, hallucinations, self-injury, sleep disturbance and suicidal ideas. The patient is not nervous/anxious. Objective BP 130/80 Pulse 106 Temp 36.2 C (97.1 F) Ht 1.626 m (5' 4 ) Wt 77.6 kg (171 lb) LMP 07/01/2017 (Approximate) Comment: hyster in 2017 SpO2 97% BMI 29.35 kg/m Physical Exam Constitutional: General: She is not in acute distress. Appearance: Normal appearance. She is not ill-appearing or toxic-appearing. HENT: Head: Normocephalic and atraumatic. Nose: Nose normal. Cardiovascular: Rate and Rhythm: Normal rate and regular rhythm. Pulses: Normal pulses. Heart sounds: Normal heart sounds. No murmur heard. Pulmonary: Effort: Pulmonary effort is normal. No respiratory distress. Breath sounds: Normal breath sounds. No stridor. No wheezing or rales. Musculoskeletal: General: No swelling or deformity. Normal range of motion. Cervical back: Normal range of motion and neck supple. No rigidity or tenderness. Skin: General: Skin is warm. Neurological: General: No focal deficit present. Mental Status: She is alert and oriented to person, place, and time. Psychiatric: Mood and Affect: Mood normal. Behavior: Behavior normal. Thought Content: Thought content normal. Judgment: Judgment normal. Assessment/Plan Problem List Items Addressed This Visit Coag and Thromboembolic Other pulmonary embolism without acute cor pulmonale (CMS/HCC) - Primary Relevant Medications apixaban (Eliquis) 5 mg tablet Other Visit Diagnoses Need for pneumococcal vaccine Relevant Orders Pneumococcal conjugate vaccine, 20-valent (PREVNAR 20) (Completed) documented in this encounter [facility] Work Phone: 06-11-2023 Note HNO ID: [id number] Author: Gerry (HumanAPI)Shyam Service: Pharmacy Author Type: ? Type: Plan of Care Filed: 06/11/2023 4:49 PM Note Text: The following medications were delivered to the patient: ELIQUIS 5 mg tab(s) Generic drug: apixaban Take 1 tablet by mouth two times a day. tamsulosin 0.4 mg Commonly known as: FLOMAX Take 1 capsule by mouth once daily. 30 minutes after the same meal each day. Shyam Garrett (Human[employer]) PAGER: discharge pharmacy [facility] June 11, 2023 4:49 PM [facility] 06-11-2023 Note HNO ID: [id number] Author: Sumanth Greene RN Service: Care Management Author Type: Registered Nurse Type: Care Mgt Progress Note Filed: 06/11/2023 3:51 PM Note Text: CARE MANAGEMENT DISCHARGE NOTE SERVICE DATE: June 11, 2023 SERVICE TIME: 3:50 PM Admission Date: 06/01/2023 LOS: 10 days Discharge Arrangement Discharge Arrangement: Home with Self Care Services Arranged Medical Services: Other: See Comment (none) Caregiver Assessment Caregiver is ready, willing and able to meet the patient's needs as recommended by the inter-professional team: No Caregiver needed Transportation Arrangements Transportation Arrangements: Car Handoff Communication: Handoff to: Primary Care Physician Primary Care Physician Name/Phone: Dr. Kimberly Murguia sent summary of care Additional Information: none Discharge Information Row Name ED to Hosp-Admission (Current) from 06/01/[address] Medical Follow-Up Appointment Specialty Medline: Free Physician Referral Service (Please call if you would like to get established with a CC PCP) Pt medically cleared for discharge. Pt will return home, family/friend to provide transport. Pt returns home w/no skilled needs identified at this time. Pt aware of discharge and agreeable. SIGNATURE: Sumanth Greene RN PATIENT NAME: Damari Rios DATE: June 11, 2023 TIME: 3:50 PM CONTACT #: [phone] [facility] 06-11-2023 Note HNO ID: [id number] Author: Zainab Croft V, MD Service: General Internal Medicine Author Type: Physician Type: Progress Notes Filed: 06/12/2023 10:29 PM Note Text: PROGRESS NOTE - INTERNAL MEDICINE PATIENT NAME: Damari Rios ADMITTING PHYSICIAN: Zainab Croft V, MD SUBJECTIVE INTERVAL HISTORY OF PRESENT ILLNESS: Resting in bed. Reports chest pain and shortness of breath improved. Anxious for discharge. OBJECTIVE PHYSICAL EXAM: BP 126/75 Pulse 79 Temp 36.3 ?C (97.3 ?F) (Oral) Resp 18 Ht 162.6 cm (5' 4 ) Wt 73.5 kg (162 lb) LMP 07/24/2016 (Approximate) SpO2 100% BMI 27.81 kg/m? No intake or output data in the 24 hours ending 06/11/23 1117 GENERAL: Alert, no distress, cooperative LUNGS: Lungs clear to auscultation. Breathing unlabored CARDIAC: normal S1 and S2; no rubs, murmurs, or gallops ABDOMEN: Soft, + BS EXTREMETIES: No LE edema. NEURO: Alert, oriented X 3, [place] DATA: Diagnostic tests reviewed for today's visit: Most recent labs Most recent imaging CBC, Coags, BMP, Mg, Phos Recent Labs 06/11/23 0559 06/10/23 0536 06/09/23 0617 WBC 8.72 10.76 8.70 HB 13.9 14.1 13.1 HCT 40.4 40.7 39.3 PLT 321 317 325 NA 137 -- -- K 3.9 -- -- CHLOR 101 -- -- CO2 24 -- -- BUN 19 -- -- CREAT 0.95 -- -- GLUC 103* -- -- CA 9.1 -- -- Liver Function, Amylase, AND Lipase Cardiac Enzymes ASSESSMENT AND PLAN PE, provoked - Eliquis- on heparin gtt for now - Needs a/c for 3 months per Pulm- s/o - desat study 06/06- Patient does not require oxygen - titrate O2- RA Asthma exacerbation -started on dulera 200-5,albuterol prn, -completed azithromycin, prednisone 40 mg x 5 D per Pulmonary - OP f/u Chest pain - Nuclear stress test shows mild ischemia in the LAD - ECHO - EF = 65 ? 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 PROFESSOR- OP f/u Bipolar dx Mild Protein-Calorie Malnutrition DVT prophylaxis: AC D/c planning Megan Joshua APRN.[employer] June 11, 2023 [facility] 06-11-2023 Note HNO ID: [id number] Author: Adriana Shelby APRN.BEN Service: Clinical Cardiology Author Type: Nurse Practitioner Type: Plan of Care Filed: 06/11/2023 11:15 AM Note Text: CHART REVIEWED CONSULTING SERVICE: CVM TEAM B Part of this note was copied from my service's previous note, all content has been individually reviewed, updated as necessary, and thoroughly reviewed, and patient assessed with updates/ changes documented/adjusted. ASSESSMENT AND RECOMMENDATIONS Current presentation for acute provoked PE in the setting of recent surgery (right salpingo-oophorectomy and a urethral sling placed at about 1 week ago) Chest pain. Non specific T wave changes noted. Negative troponin levels. Nuclear stress test shows mild ischemia in the LAD. S/p LHC showing Normal epicardial coronary arteries HTN Asthma exacerbation L2 lesion noted on CT HLD, LDL 120 Re consulted for tachycardia with ambulation in the setting of PE. Continue current medications. No need for additional cardiac testing Continue current meds for HTN On eliquis for acute PE Will sign off Assessment and Recommendations discussed and collaborated with Dr. Okeefe SIGNATURE: Adriana Shelby APRN.CNP DATE: June 11, 2023 TIME: 11:12 AM CONTACTING [facility] CARDIOVASCULAR MEDICINE: Team A: (M-F 8:00 am - 5:00 pm) Sheela Mishra Scharfstein, Sparano, Vekstein, Wiseman, Gupta, Rogers - PAGE [phone] Team B: (M-F 8:00 am - 5:00 pm) Janny Flores Hawwa, Kaminski, Kruithoff, Mattina, Taraben, Mercedes, Abdelghany- PAGE [phone] Night and Weekend Cardiovascular Medicine (consults, inpatient management questions, transfers, etc.): CALL [phone] (not the physician listed) - All calls triaged via answering service. Please include the patient's name, location, MRN, and 10-digit call-back number. [facility] 06-10-2023 Note HNO ID: [id number] Author: Zainab Croft V, MD Service: Hospital Medicine Author Type: Physician Type: Progress Notes Filed: 06/10/2023 1:48 PM Note Text: PROGRESS NOTE - INTERNAL MEDICINE PATIENT NAME: Damari Rios ADMITTING PHYSICIAN: Zainab Croft V, MD SUBJECTIVE INTERVAL HISTORY OF PRESENT ILLNESS: Requiring any oxygen. Overall feeling better. Blood pressure borderline low, amlodipine discontinued Remains on Eliquis. Pulmonary following. Had some tachycardia when ambulating, will watch her overnight. Remains on beta-blockers with parameters OBJECTIVE PHYSICAL EXAM: BP 96/66 Pulse 75 Temp 36.4 ?C (97.5 ?F) (Oral) Resp 16 Ht 162.6 cm (5' 4 ) Wt 73.5 kg (162 lb) LMP 07/24/2016 (Approximate) SpO2 95% BMI 27.81 kg/m? No intake or output data in the 24 hours ending 06/10/23 1348 GENERAL: Alert, no distress, cooperative LUNGS: Lungs clear to auscultation. Good diaphragmatic excursion. CARDIAC: normal S1 and S2; no rubs, murmurs, or gallops ABDOMEN: Soft, tender EXTREMETIES: No LE edema. NEURO: Alert, oriented X 3, [place] DATA: Diagnostic tests reviewed for today's visit: Most recent labs Most recent imaging CBC, Coags, BMP, Mg, Phos Recent Labs 06/10/23 0536 06/09/23 0617 06/08/23 0534 06/07/23 2239 06/07/23 1643 WBC 10.76 8.70 12.47* -- -- HB 14.1 13.1 12.4 -- -- HCT 40.7 39.3 37.4 -- -- PLT 317 325 318 -- -- APTT -- -- 84.5* 71.3* 113.0* Liver Function, Amylase, AND Lipase Cardiac Enzymes ASSESSMENT AND PLAN PE, provoked - Eliquis- on heparin gtt for now - Needs a/c for 3 months per Pulm- s/o - desat study 06/06- Patient does not require oxygen - titrate O2- RA Chest pain - Nuclear stress test shows mild ischemia in the LAD - ECHO - EF = 65 ? 5%, mild AR - LHC 06/08 Abdominal pain - Recent right salpingo-oophorectomy and urethral sling at OSH - LATIN PROFESSOR- OP f/u Bipolar dx Mild Protein-Calorie Malnutrition DVT prophylaxis: AC Zainab Croft MD [facility] 06-09-2023 Note HNO ID: [id number] Author: Zainab Croft V, MD Service: Hospital Medicine Author Type: Physician Type: Progress Notes Filed: 06/09/2023 3:46 PM Note Text: PROGRESS NOTE - INTERNAL MEDICINE PATIENT NAME: Damari Rios ADMITTING PHYSICIAN: Zainab Croft V, MD SUBJECTIVE INTERVAL HISTORY OF PRESENT ILLNESS: Had some shortness of breath now requiring oxygen Cardiac catheterization completed. Seen by pulmonary, plans for diuresis noted. Remains on aerosol Back on anticoagulation. Remains on Dulera. MRI discussed with the patient, no discharge today OBJECTIVE PHYSICAL EXAM: BP 114/87 Pulse 67 Temp 36.3 ?C (97.3 ?F) Resp 20 Ht 162.6 cm (5' 4 ) Wt 73.5 kg (162 lb) LMP 07/24/2016 (Approximate) SpO2 100% BMI 27.81 kg/m? Intake/Output Summary (Last 24 hours) at 06/09/2023 1545 Last data filed at 06/09/2023 1342 Gross per 24 hour Intake 380 ml Output -- Net 380 ml GENERAL: Alert, no distress, cooperative LUNGS: Lungs clear to auscultation. Good diaphragmatic excursion. CARDIAC: normal S1 and S2; no rubs, murmurs, or gallops ABDOMEN: Soft, tender EXTREMETIES: No LE edema. NEURO: Alert, oriented X 3, [place] DATA: Diagnostic tests reviewed for today's visit: Most recent labs Most recent imaging CBC, Coags, BMP, Mg, Phos Recent Labs 06/09/23 0617 06/08/23 0534 06/07/23 2239 06/07/23 1643 06/07/23 0921 WBC 8.70 12.47* -- -- 11.51* HB 13.1 12.4 -- -- 13.6 HCT 39.3 37.4 -- -- 40.6 PLT 325 318 -- -- 325 INR -- -- -- -- 1.0 APTT -- 84.5* 71.3* 113.0* 30.0 Liver Function, Amylase, AND Lipase Cardiac Enzymes Recent Labs 06/07/23 0448 06/06/23 2133 CK 24* 32* MB <1.0 1.1 ASSESSMENT AND PLAN PE, provoked - Eliquis- on heparin gtt for now - Needs a/c for 3 months per Pulm- s/o - desat study 06/06- Patient does not require oxygen - titrate O2- RA Chest pain - Nuclear stress test shows mild ischemia in the LAD - ECHO - EF = 65 ? 5%, mild AR - LHC 06/08 Abdominal pain - Recent right salpingo-oophorectomy and urethral sling at OSH - LATIN PROFESSOR- OP f/u Bipolar dx Mild Protein-Calorie Malnutrition DVT prophylaxis: DAVID Croft MD [facility] 06-08-2023 Note HNO ID: [id number] Author: Sina Emmanuel RN Service: Care Management Author Type: Registered Nurse Type: Care Mgt Progress Note Filed: 06/08/2023 3:44 PM Note Text: CARE MANAGEMENT PROGRESS NOTE SERVICE DATE: 06/08/2023 SERVICE TIME: 3:30 PM LOS: 7 days Post-Acute Discharge Planning Patient Goal(s): Be able to go home, General wellness Needs Prior to Discharge: Needs Prior to Discharge: To Be Determined, None Post-Acute Discharge Plan: Plan to return home, self-care, independent prior to admission with ADL's, still drives, lives with a roommate. 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 Back to room air. + stress test, Heart cath done today. SIGNATURE: Sina Emmanuel RN PATIENT NAME: Damari Rios DATE: June 08, 2023 TIME: 3:30 PM PAGER/CONTACT #: Office:[phone] [facility] 06-08-2023 Note HNO ID: [id number] Author: Zainab Croft V, MD Service: General Internal Medicine Author Type: Physician Type: Progress Notes Filed: 06/08/2023 7:24 PM Note Text: PROGRESS NOTE - INTERNAL MEDICINE PATIENT NAME: Damari Rios ADMITTING PHYSICIAN: Zainab Croft V, MD SUBJECTIVE INTERVAL HISTORY OF PRESENT ILLNESS: Resting in bed. Seen in [facility]. Reports her breathing is little better. Still with abdominal pain and chest pain as well as nausea. OBJECTIVE PHYSICAL EXAM: BP 179/98 Pulse 61 Temp 36.5 ?C (97.7 ?F) (Oral) Resp 11 Ht 162.6 cm (5' 4 ) Wt 73.5 kg (162 lb) LMP 07/24/2016 (Approximate) SpO2 94% BMI 27.81 kg/m? Intake/Output Summary (Last 24 hours) at 06/08/2023 1040 Last data filed at 06/08/2023 0536 Gross per 24 hour Intake 176 ml Output -- Net 176 ml GENERAL: Alert, no distress, cooperative LUNGS: Lungs clear to auscultation. Good diaphragmatic excursion. CARDIAC: normal S1 and S2; no rubs, murmurs, or gallops ABDOMEN: Soft, tender EXTREMETIES: No LE edema. NEURO: Alert, oriented X 3, [place] DATA: Diagnostic tests reviewed for today's visit: Most recent labs Most recent imaging CBC, Coags, BMP, Mg, Phos Recent Labs 06/08/23 0534 06/07/23 2239 06/07/23 1643 06/07/23 0921 06/07/23 0921 06/06/23 0948 WBC 12.47* -- -- -- 11.51* 15.26* HB 12.4 -- -- -- 13.6 13.4 HCT 37.4 -- -- -- 40.6 40.9 PLT 318 -- -- -- 325 339 INR -- -- -- -- 1.0 -- APTT 84.5* 71.3* 113.0* < > 30.0 -- NA -- -- -- -- -- 139 K -- -- -- -- -- 4.2 CHLOR -- -- -- -- -- 102 CO2 -- -- -- -- -- 26 BUN -- -- -- -- -- 31* CREAT -- -- -- -- -- 1.03* GLUC -- -- -- -- -- 100* CA -- -- -- -- -- 10.0 MG -- -- -- -- -- 2.1 P -- -- -- -- -- 4.0 < > = values in this interval not displayed. Liver Function, Amylase, AND Lipase Recent Labs 06/06/23 0948 TPROT 7.4 ALB 4.3 ALT 9 AST 10* ALKPHOS 63 TBILI 0.4 Cardiac Enzymes Recent Labs 06/07/23 0448 06/06/23 2133 CK 24* 32* MB <1.0 1.1 ASSESSMENT AND PLAN PE, provoked - Eliquis- on heparin gtt for now - Needs a/c for 3 months per Pulm- s/o - desat study 06/06- Patient does not require oxygen - titrate O2- RA Chest pain - Nuclear stress test shows mild ischemia in the LAD - ECHO - EF = 65 ? 5%, mild AR - LHC 06/08 Abdominal pain - Recent right salpingo-oophorectomy and urethral sling at [facility] - [employer] PROF[employer]- OP f/u Bipolar dx Mild Protein-Calorie Malnutrition DVT prophylaxis: AC SIGNATURE: Megan Joshua APRN.[employer] DATE: June 08, 2023 Cardiac catheterization completed. Restart Eliquis tonight. Having some vague abdominal discomfort. MRI pending. Cardiology pulm examination as noted above. Approaching discharge. Likely discharge tomorrow [facility] 06-07-2023 Note HNO ID: [id number] Author: Zainab Croft V, MD Service: Hospital Medicine Author Type: Physician Type: Progress Notes Filed: 06/07/2023 5:08 PM Note Text: PROGRESS NOTE - INTERNAL MEDICINE PATIENT NAME: Damari Rios SERVICE DATE: 06/07/2023 SUBJECTIVE INTERVAL HISTORY OF PRESENT ILLNESS: Finishing up prednisone, antibiotics. Gynecological team following for abdominal pain but no further intervention. Appreciate input. ROS: OBJECTIVE PHYSICAL EXAM: Patient Vitals for the past 24 hrs: BP Temp Temp src Pulse Resp SpO2 06/07/23 1623 129/81 36.7 ?C (98.1 ?F) Oral 70 18 95 % 06/07/23 1224 125/75 -- -- 83 -- 95 % 06/07/23 0710 118/67 36.3 ?C (97.3 ?F) Oral (!) 58 20 100 % 06/07/23 0400 122/65 36.3 ?C (97.3 ?F) Oral (!) 55 15 93 % 06/07/23 0042 103/64 36.3 ?C (97.3 ?F) Oral 73 17 96 % 06/06/232003 119/67 36.3 ?C (97.3 ?F) Oral 64 16 -- Body mass index is 27.81 kg/m?. No intake or output data in the 24 hours ending 06/07/23 0659 GENERAL: healthy, alert, no distress, cooperative SKIN: NECK: no jugulovenous distention, no carotid bruits, carotid pulse normal contour, supple LUNGS: Lungs clear to auscultation. Good diaphragmatic excursion. CARDIAC: normal S1 and S2; no rubs, murmurs, or gallops ABDOMEN: Abdomen soft, non-tender. BS normal. No masses or organomegaly. EXTREMETIES: Extremities normal. No deformities, edema, clubbing or skin discoloration. NEURO: Alert, oriented X 3, Gait normal. Reflexes normal and symmetric. Sensation grossly intact., Cranial nerves II-XII intact PULSES: 2+ radial, 2+ carotid DATA: Diagnostic tests reviewed for today's visit: CBC: Recent Labs 06/07/23920 WBC 11.51* RBC 4.40 HB 13.6 HCT 40.6 PLT 325 MCV 92.3 MCH 30.9 MPV 8.8* Coags: Recent Labs 06/07/23920 INR 1.0 APTT 30.0 BMP: No results for input(s): NA , K , CHLOR , CO2 , BUN , CREAT , GLUC in the last 24 hours. Cardiac Enzymes: Recent Labs 06/07/23 0448 CK 24* MB <1.0 Liver Function, Amylase, Lipase: No results for input(s): TPROT , ALB , ALT , AST , ALKPHOS , TBILI , AMYLASE , LIPASE , LACTATE in the last 24 hours. MG/PHOS: No results for input(s): MG , P in the last 24 hours. ABG's: No results for input(s): PH , PCO2 , PO2 , BE , HCO3 , CO2CT , O2HB , COHB , MHGB , TEMP , PHTC , PCO2T , PO2T , O2AD in the last 24 hours. Recent diagnostic tests reviewed. ASSESSMENT AND PLAN Active Hospital Problems Other pulmonary embolism without acute cor pulmonale (HCC) [I26.99] Abnormal stress test [R94.39] Postoperative state [Z98.890] Abdominal pain [R10.9] Acute respiratory failure with hypoxia (HCC) [J96.01] Chest pain [R07.9] Hypertension [I10] History of pulmonary embolism [Z86.711] Dyspnea [R06.00] Stress test positive, plans for cardiac catheterization noted. Transition to heparin, Eliquis on hold SIGNATURE: Zainab Croft MD DATE: June 07, 2023 TIME: 5:08 PM [facility] 06-07-2023 Note HNO ID: [id number] Author: Adriana Shelby APRN.CNP Service: Clinical Cardiology Author Type: Nurse Practitioner Type: Progress Notes Filed: 06/07/2023 9:12 AM Note Text: CONSULT PROGRESS NOTES CARDIOVASCULAR MEDICINE [facility] Patient Name: Damari Rios SERVICE DATE: 06/07/2023 SERVICE TIME: 9:09 AM CONSULTING SERVICE: CVM TEAM B Part of this note was copied from my service's previous note, all content has been individually reviewed, updated as necessary, and thoroughly reviewed, and patient assessed with updates/ changes documented/adjusted. INTERVAL HPI: Still with reports of chest burning. Hemodynamically stable. Reviewed stress test results. ASSESSMENT AND RECOMMENDATIONS Current presentation for acute provoked PE in the setting of recent surgery (right salpingo-oophorectomy and a urethral sling placed at about 1 week ago) Chest pain. Non specific T wave changes noted. Negative troponin levels. Nuclear stress test shows mild ischemia in the LAD HTN Asthma exacerbation L2 lesion noted on CT Schedule [facility] with Dr. Greene. NPO p MN Send Lipid panel Echo pending Continue current meds for HTN Hold Eliquis, place on Heparin gtt in preparation for [facility] tomorrow Assessment and Recommendations discussed and collaborated with Dr. Hawwa MEDICATIONS: Current Facility-Administered Medications Medication Dose Route Frequency iv contrast (radiology procedure) INTRAVENOUS DIRECTED PRN tamsulosin 0.4 mg cap(s) (FLOMAX) 0.4 mg ORAL DAILY albuterol 2.5 mg /3 mL (0.083 %) 2.5 mg (PROVENTIL) 2.5 mg INHALATION q 6 H PRN albuterol HFA 90 mcg/actuation 2 Puff (PROVENTIL HFA, VENTOLIN HFA) 2 Puff OTHER q 6 H PRN acetaminophen 650 mg tab(s) (TYLENOL) 650 mg ORAL q 6 H PRN melatonin 3 mg tab(s) 3 mg ORAL DAILY (8 PM) NaCl 0.9% iv flush bag 20 mL INTRAVENOUS PRN carvedilol 6.25 mg tab(s) (COREG) 6.25 mg ORAL BID w MEALS amLODIPine 5 mg tab(s) (NORVASC) 5 mg ORAL DAILY famotidine 40 mg tab(s) (PEPCID) 40 mg ORAL AT BEDTIME calcium carbonate 1,000 mg chewable tab(s) (TUMS) 1,000 mg ORAL TID PRN lidocaine 4 % 1 Patch (SALONPAS) 1 Patch TRANSDERMAL DAILY And lidocaine patch - REMOVE OTHER AT BEDTIME And lidocaine - VERIFY PATCH OTHER q 8 H azithromycin 500 mg tab(s) (ZITHROMAX) 500 mg ORAL DAILY oxyCODONE IR 5 mg tab(s) (ROXICODONE) 5 mg ORAL q 6 H PRN ondansetron (PF) 4 mg injection (ZOFRAN) 4 mg INTRAVENOUS q 6 H PRN sodium chloride 0.9 % (flush) 2-10 mL (BD POSIFLUSH) 2-10 mL INTRAVENOUS DIRECTED PRN And perflutren lipid microspheres 1.1 mg/mL 1.3 mL injection (DEFINITY) 1.3 mL INTRAVENOUS DIRECTED PRN docusate sodium 100 mg cap(s) (COLACE) 100 mg ORAL BID polyethylene glycol 3350 17 g packet 17 g ORAL DAILY heparin iv infusion 25,000 units in NaCl 0.45% 250 mL STANDARD NOMOGRAM 0-3,000 Units/hr INTRAVENOUS CONTINUOUS And heparin RATE CHANGE bolus 1,000-10,000 Units for subtherapeutic PTTAC results 1,000-10,000 Units INTRAVENOUS PRN heparin nomogram - NO INITIAL BOLUS OTHER ONCE (heparin bolus) PHYSICAL EXAM: BP 118/67 Pulse (!) 58 Temp 36.3 ?C (97.3 ?F) (Oral) Resp 20 Ht 162.6 cm (5' 4 ) Wt 73.5 kg (162 lb) LMP 07/24/2016 (Approximate) SpO2 100% BMI 27.81 kg/m? Body mass index is 27.81 kg/m?. GENERAL: no distress NEURO: AANDOx3 and moves all extremities x 4 HEENT: Head normocephalic NECK: no jugulovenous distention LUNGS: Lungs clear to auscultation. CARDIAC: normal S1 and S2; with no murmur EXTREMITIES: Extremities with no edema DATA: Reviewed Diagnostic tests reviewed for today's visit: Most recent labs Most recent imaging Most recent EKG SIGNATURE: Adriana Shelby APRN.[employer] DATE: June 07, 2023 TIME: 9:09 AM CONTACTING [facility] CARDIOVASCULAR MEDICINE: Team A: (M-F 8:00 am - 5:00 pm) Sheela Mishra Scharfstein, Sparano, Vekstein, Wiseman, Gupta, Rogers - PAGE [phone] Team B: (M-F 8:00 am - 5:00 pm) Janny Flores Hawwa, Kaminski, Kruithoff, Mattina, Taraben, William, Abdelghany- PAGE [phone] Night and Weekend Cardiovascular Medicine (consults, inpatient management questions, transfers, etc.): CALL [phone] (not the physician listed) - All calls triaged via answering service. Please include the patient's name, location, MRN, and 10-digit call-back number. [facility] 06-07-2023 History of Present illness Narrative CHIEF COMPLAINT: Virtual FUV UDS test results HISTORY OF PRESENT ILLNESS: This is a 47 y.o. female, status post sling and right oophorectomy 05/28/2023. Surgical pathology was benign. She she is currently admitted for a PE and is being evaluated for cardiac issue as well. HISTORY OF PRESENT ILLNESS: Past Medical History She has a past medical history of Asthma, Colon polyp, COPD (chronic obstructive pulmonary disease) (CMS/HCC), Dysfunctional uterine bleeding, GERD (gastroesophageal reflux disease), Hypertension, Nephrolithiasis, Personal history of other diseases of the circulatory system, Personal history of other diseases of the respiratory system, and Polycystic ovarian disease. Surgical History She has a past surgical history that includes Hysterectomy; Tubal ligation; Cholecystectomy; and Cystoscopy. Social History She reports that she has never smoked. She has never been exposed to tobacco smoke. She has never used smokeless tobacco. She reports that she does not drink alcohol and does not use drugs. Family History Family History Problem Relation Name Age of Onset Ovarian cancer Mother Coronary artery disease Mother Other (Diabetes mellitus) Mother Hypertension Father Heart disease Father Hypertension Sister Heart disease Sister Hypertension Other grandparent Heart disease Other grandparent Heart disease Other grandmother 52 Allergies Penicillins, Naproxen, Sulfamethoxazole-trimethoprim, Tramadol hcl, and Codeine A comprehensive 10+ review of systems was negative except for: see hpi Assessment: 47-year-old with complex right adnexal mass negative tumor markers and stress urinary incontinence Adnexal mass: Post right salpingo-oophorectomy 05/28/23 pathology benign Stress incontinence: Status post sling 05/28/23 doing well Pelvic floor Pain: Follow-up with me after she is released from the hospital will further treat her pelvic pain Follow up in 3 months Main Reed MD documented in this encounter [facility] Work Phone: 06-06-2023 Note HNO ID: [id number] Author: Zainab Croft V, MD Service: Hospital Medicine Author Type: Physician Type: Progress Notes Filed: 06/06/2023 9:10 PM Note Text: PROGRESS NOTE - INTERNAL MEDICINE PATIENT NAME: Damari Rios SERVICE DATE: 06/06/2023 SERVICE TIME: 9:10 PM SUBJECTIVE INTERVAL HISTORY OF PRESENT ILLNESS: Abnormal EKG with chest pain noted. Plans for stress test per cardiology. Pulmonary following. CAT scan flank shows possible L2 lesion will get MRI Remains on oral pain medicines. ROS: OBJECTIVE PHYSICAL EXAM: Patient Vitals for the past 24 hrs: BP Temp Temp src Pulse Resp SpO2 06/06/23 2004 119/67 36.3 ?C (97.3 ?F) Oral 64 16 -- 06/06/23 1546 120/75 36.3 ?C (97.3 ?F) Oral 60 20 100 % 06/06/23 1348 129/71 36.4 ?C (97.5 ?F) Oral 80 17 95 % 06/06/23 0719 127/73 36.3 ?C (97.3 ?F) Oral (!) 51 17 100 % 06/06/23 0334 111/59 -- Oral 78 18 100 % 06/06/23 0212 -- -- -- (!) 55 20 99 % 06/05/23 2249 106/69 36.5 ?C (97.7 ?F) -- 70 -- 99 % 06/05/23 2136 115/66 36.4 ?C (97.5 ?F) -- 72 -- 100 % Body mass index is 27.81 kg/m?. No intake or output data in the 24 hours ending 06/06/23 0659 GENERAL: healthy, alert, no distress, cooperative SKIN: NECK: no jugulovenous distention, no carotid bruits, carotid pulse normal contour, supple LUNGS: Lungs clear to auscultation. Good diaphragmatic excursion. CARDIAC: normal S1 and S2; no rubs, murmurs, or gallops ABDOMEN: Abdomen soft, non-tender. BS normal. No masses or organomegaly. EXTREMETIES: Extremities normal. No deformities, edema, clubbing or skin discoloration. NEURO: Alert, oriented X 3, Gait normal. Reflexes normal and symmetric. Sensation grossly intact., Cranial nerves II-XII intact PULSES: 2+ radial, 2+ carotid DATA: Diagnostic tests reviewed for today's visit: CBC: Recent Labs 06/06/23 0948 WBC 15.26* RBC 4.41 HB 13.4 HCT 40.9 PLT 339 MCV 92.7 MCH 30.4 MPV 8.6* Coags: No results for input(s): PT , INR , APTT in the last 24 hours. BMP: Recent Labs 06/06/23 0948 NA 139 K 4.2 CHLOR 102 CO2 26 BUN 31* CREAT 1.03* GLUC 100* Cardiac Enzymes: No results for input(s): CK , MB , CKMB , TROPT in the last 24 hours. Liver Function, Amylase, Lipase: Recent Labs 06/06/23 0948 TPROT 7.4 ALB 4.3 ALT 9 AST 10* ALKPHOS 63 TBILI 0.4 MG/PHOS: Recent Labs 06/06/23 0948 MG 2.1 P 4.0 ABG's: No results for input(s): PH , PCO2 , PO2 , BE , HCO3 , CO2CT , O2HB , COHB , MHGB , TEMP , PHTC , PCO2T , PO2T , O2AD in the last 24 hours. Recent diagnostic tests reviewed. ASSESSMENT AND PLAN Active Hospital Problems Other pulmonary embolism without acute cor pulmonale (HCC) [I26.99] Acute respiratory failure with hypoxia (HCC) [J96.01] Chest pain [R07.9] Hypertension [I10] History of pulmonary embolism [Z86.711] Dyspnea [R06.00] SIGNATURE: Zainab Croft MD DATE: June 06, 2023 TIME: 9:10 PM [facility] 06-06-2023 Note HNO ID: [id number] Author: Melinda Mcqueen APRN.[facility] Service: Pulmonary Disease Author Type: Nurse Practitioner Type: Plan of Care Filed: 06/06/2023 4:55 PM Note Text: Daamri Rios [id number] Attempted to see today, was taken to stress test, on the second attempt was sleeping post procedure Will resume care tomorrow Melinda Mcqueen APRN.[facility] 06-06-2023 Note HNO ID: [id number] Author: Dania Sosa RRT Service: ? 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 Patient reports feeling foggy with activity, requiring periods of rest x2 [facility] 06-06-2023 Note HNO ID: [id number] Author: Dania Sosa, DETECTIVE CHIEF Service: ? Author Type: Respiratory Therapist Type: Progress Notes Filed: 06/06/2023 10:20 AM Note Text: PULM FUNCTION SMARTBLOCK: Provider: Melinda Mcqueen APRN.[employer] Oximetry - Ambulation: 1 [facility] 06-06-2023 Note HNO ID: [id number] Author: Sukhjinder Landaverde APRN.[employer] Service: Critical Care Author Type: Nurse Practitioner Type: Progress Notes Filed: 06/06/2023 10:26 AM Note Text: INPATIENT PROGRESS NOTES * SERVICE DATE: 06/06/2023 SERVICE TIME: 855 Subjective Assessment: Ms Damari Rios is a 47 year old female with a hx of kidney stones and HTN who initially presented to the ED on 06/01 after having a right salpingo-oophorectomy and a urethral sling placed at the prior week. She came to the ED with complaints of SOB, chest pain, and abdominal pain. CT PE on 06/01 showed multiple pulmonary emboli in the lingula and LLL. She is currently on eliquis. 06/06: Paged by primary RN to assess patient per Dr. Croft for increasing pain levels. Patient sitting in bed complaining of 10/10 abdominal pain that wraps all the way around is stabbing in nature. This pain also radiates to her right back. Patient also endorses chest pain which she states she has been having since yesterday. Reported shortness of breath. States that she also has some acid reflux which is present at home and nausea/trouble eating today. Chest pain Flank pain Shortness of breath Plan: - STAT EKG obtained: T wave inversion in lateral leads suggestive of possible ischemia - Consulted cardiology- EKG reviewed per Dr. Arevalo - NPO for stress test per cardiology team - Echo ordered - US kidney bladder -chest xray, KUB unremarkable - UA pending - Labs: Trend high sensitivity trop and obtain CMP, CBC, mag, phosph, procalcitonin - 5mg oxycodone q6 PRN - Malox, protonix, zofran MEDICATIONS: Current Facility-Administered Medications Medication Dose Route Frequency iv contrast (radiology procedure) INTRAVENOUS DIRECTED PRN tamsulosin 0.4 mg cap(s) (FLOMAX) 0.4 mg ORAL DAILY albuterol 2.5 mg /3 mL (0.083 %) 2.5 mg (PROVENTIL) 2.5 mg INHALATION q 6 H PRN albuterol HFA 90 mcg/actuation 2 Puff (PROVENTIL HFA, VENTOLIN HFA) 2 Puff OTHER q 6 H PRN acetaminophen 650 mg tab(s) (TYLENOL) 650 mg ORAL q 6 H PRN melatonin 3 mg tab(s) 3 mg ORAL DAILY (8 PM) NaCl 0.9% iv flush bag 20 mL INTRAVENOUS PRN carvedilol 6.25 mg tab(s) (COREG) 6.25 mg ORAL BID w MEALS amLODIPine 5 mg tab(s) (NORVASC) 5 mg ORAL DAILY apixaban 10 mg tab(s) (ELIQUIS) 10 mg ORAL BID Followed by [START ON 06/09/2023] apixaban 5 mg tab(s) (ELIQUIS) 5 mg ORAL BID famotidine 40 mg tab(s) (PEPCID) 40 mg ORAL AT BEDTIME calcium carbonate 1,000 mg chewable tab(s) (TUMS) 1,000 mg ORAL TID PRN predniSONE 40 mg tab(s) (DELTASONE) 40 mg ORAL DAILY lidocaine 4 % 1 Patch (SALONPAS) 1 Patch TRANSDERMAL DAILY And lidocaine patch - REMOVE OTHER AT BEDTIME And lidocaine - VERIFY PATCH OTHER q 8 H azithromycin 500 mg tab(s) (ZITHROMAX) 500 mg ORAL DAILY oxyCODONE IR 5 mg tab(s) (ROXICODONE) 5 mg ORAL q 6 H PRN pantoprazole 40 mg injection (PROTONIX) 40 mg INTRAVENOUS ONCE aluminum-magnesium hydroxide-simethicone 200-200-20 mg/5 mL 30 mL 30 mL ORAL ONCE ondansetron (PF) 4 mg injection (ZOFRAN) 4 mg INTRAVENOUS q 6 H PRN sodium chloride 0.9 % (flush) 2-10 mL (BD POSIFLUSH) 2-10 mL INTRAVENOUS DIRECTED PRN And perflutren lipid microspheres 1.1 mg/mL 1.3 mL injection (DEFINITY) 1.3 mL INTRAVENOUS DIRECTED PRN Objective PHYSICAL EXAM: Patient Vitals for the past 24 hrs: BP Temp Temp src Pulse Resp SpO2 12/06/23 0719 127/73 36.3 ?C (97.3 ?F) Oral (!) 51 17 100 % 06/06/23 0334 111/59 -- Oral 78 18 100 % 06/06/23 0212 -- -- -- (!) 55 20 99 % 06/05/23 2249 106/69 36.5 ?C (97.7 ?F) -- 70 -- 99 % 06/05/23 2136 115/66 36.4 ?C (97.5 ?F) -- 72 -- 100 % 06/05/23 1648 -- -- -- 86 21 100 % 06/05/23 1624 140/82 36.4 ?C (97.5 ?F) Oral 84 20 100 % 06/05/23 1117 129/76 36.3 ?C (97.3 ?F) Oral 64 20 100 % Body mass index is 27.81 kg/m?. GENERAL: Alert, cooperative. LUNGS: Clear to auscultation bilaterally. CARDIAC: Normal S1 and S2; no rubs, murmurs, or gallops ABDOMEN: right flank tenderness. Abdomen soft. EXTREMITIES: No edema. Moves all extremities times 4. NEURO: Alert and oriented x 3, no focal deficits. Assessment/Plan Other pulmonary embolism without acute cor pulmonale (HCC) (POA: Yes) Chest pain (POA: Unknown) Hypertension (POA: Unknown) History of pulmonary embolism (POA: Unknown) Acute respiratory failure with hypoxia (HCC) (POA: Unknown Medication and Non-Pharmacologic VTE Prophylaxis/Anticoagulants Anticoagulant AND Antiplatelet Medications (From admission, onward) Start Dose Route Frequency Last Action Ordered Stop 06/09/23 0900 apixaban 5 mg tab(s) (ELIQUIS) (apixaban tab(s) (ELIQUIS)) See Hyperspace for full Linked Orders Report. 5 mg ORAL 2 TIMES DAILY Ordered 06/02/23921 -- 06/02/23 0930 apixaban 10 mg tab(s) (ELIQUIS) (apixaban tab(s) (ELIQUIS)) See Hyperspace for full Linked Orders Report. 10 mg ORAL 2 TIMES DAILY Given, 06/06 0821 06/02/2392106/09/23 0859 06/01/23 2200 vte current anticoag (more content not included)... 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 Patient reports feeling foggy with activity, requiring periods of rest x2 documented in this encounter [facility] 06-06-2023 History of Present illness Narrative PULM FUNCTION SMARTBLOCK: Provider: Melinda Mcqueen APRN.[employer] Oximetry - Ambulation: 1 documented in this encounter [facility] 06-04-2023 Note HNO ID: [id number] Author: Zainab Croft V, MD Service: Hospital Medicine Author Type: Physician Type: Progress Notes Filed: 06/04/2023 7:40 PM Note Text: PROGRESS NOTE - INTERNAL MEDICINE PATIENT NAME: Damari Rios SERVICE DATE: 06/04/2023 SERVICE TIME: 7:39 PM SUBJECTIVE INTERVAL HISTORY OF PRESENT ILLNESS: Remains on oxygen but remains on anticoagulation Reports having chest wall pain Pulmonary team following. Remains on steroids. Case management following for discharge considerations. Cardiology pulm examination as noted above ROS: OBJECTIVE PHYSICAL EXAM: Patient Vitals for the past 24 hrs: BP Temp Temp src Pulse Resp SpO2 06/04/23 1642 143/96 36.5 ?C (97.7 ?F) Oral 93 18 98 % 06/04/23 1635 -- -- -- 90 18 97 % 06/04/23 1157 -- -- -- 76 -- 97 % 06/04/23 1157 115/86 36.4 ?C (97.5 ?F) Oral 71 18 (!) 75 % 06/04/23 1123 -- -- -- 88 18 -- 06/04/23 1101 -- -- -- 88 18 92 % 06/04/23 0743 135/96 36.3 ?C (97.3 ?F) Oral 86 18 92 % 06/04/23 0711 -- -- -- 100 18 -- 06/04/23 0701 -- -- -- 102 18 93 % 06/04/23 0448 -- -- -- 107 22 93 % 06/03/23 1947 -- -- -- 111 20 -- Body mass index is 27.81 kg/m?. Intake/Output Summary (Last 24 hours) at 06/04/2023 0659 Last data filed at 06/03/2023 1636 Gross per 24 hour Intake -- Output 200 ml Net -200 ml GENERAL: healthy, alert, no distress, cooperative SKIN: NECK: no jugulovenous distention, no carotid bruits, carotid pulse normal contour, supple LUNGS: Lungs clear to auscultation. Good diaphragmatic excursion. CARDIAC: normal S1 and S2; no rubs, murmurs, or gallops ABDOMEN: Abdomen soft, non-tender. BS normal. No masses or organomegaly. EXTREMETIES: Extremities normal. No deformities, edema, clubbing or skin discoloration. NEURO: Alert, oriented X 3, Gait normal. Reflexes normal and symmetric. Sensation grossly intact., Cranial nerves II-XII intact PULSES: 2+ radial, 2+ carotid DATA: Diagnostic tests reviewed for today's visit: CBC: No results for input(s): WBC , RBC , HB , HCT , PLT , MCV , MCH , MPV , RDW in the last 24 hours. Coags: No results for input(s): PT , INR , APTT in the last 24 hours. BMP: No results for input(s): NA , K , CHLOR , CO2 , BUN , CREAT , GLUC in the last 24 hours. Cardiac Enzymes: No results for input(s): CK , MB , CKMB , TROPT in the last 24 hours. Liver Function, Amylase, Lipase: No results for input(s): TPROT , ALB , ALT , AST , ALKPHOS , TBILI , AMYLASE , LIPASE , LACTATE in the last 24 hours. MG/PHOS: No results for input(s): MG , P in the last 24 hours. ABG's: No results for input(s): PH , PCO2 , PO2 , BE , HCO3 , CO2CT , O2HB , COHB , MHGB , TEMP , PHTC , PCO2T , PO2T , O2AD in the last 24 hours. Recent diagnostic tests reviewed. ASSESSMENT AND PLAN Active Hospital Problems Other pulmonary embolism without acute cor pulmonale (HCC) [I26.99] Acute respiratory failure with hypoxia (HCC) [J96.01] Chest pain [R07.9] Hypertension [I10] History of pulmonary embolism [Z86.711] SIGNATURE: Zainab Croft MD DATE: June 04, 2023 TIME: 7:39 PM [facility] 06-04-2023 Note HNO ID: [id number] Author: Sina Emmanuel RN Service: Care Management Author Type: Registered Nurse Type: Care Mgt Progress Note Filed: 06/04/2023 2:25 PM Note Text: CARE MANAGEMENT PROGRESS NOTE SERVICE DATE: 06/04/2023 SERVICE TIME: 2:16 PM LOS: 3 days Post-Acute Discharge Planning Patient Goal(s): Be able to go home, General wellness Transport at Discharge: Transportation Arrangements: Car Needs Prior to Discharge: Needs Prior to Discharge: To Be Determined, None Post-Acute Discharge Plan: Plan to return home, self-care, independent prior to admission with ADL's, still drives, lives with a roommate. 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 Currently on 2L, but normally room air at baseline. Ultrasound lower extremities ordered. Pulm following. SIGNATURE: Sina Emmanuel RN PATIENT NAME: Damari Rios DATE: June 04, 2023 TIME: 2:16 PM PAGER/CONTACT #: Office:[phone] [facility] 06-03-2023 Note HNO ID: [id number] Author: Adriana Martinez MD Service: Pulmonary Disease Author Type: Physician Type: Progress Notes Filed: 06/03/2023 5:25 PM Note Text: pulmonary SERVICE CONSULT PROGRESS NOTE SERVICE DATE: 06/03/2023 A/p Provoked PE - cont eliquis, no right heart strain Asthma - possibly contributing to symptoms, add prednisone Hypoxia - now on 3 L , wean as able Subjective INTERVAL HPI: chest pain and sob, on 3 L nc Current Facility-Administered Medications Medication Dose Route Frequency iv contrast (radiology procedure) INTRAVENOUS DIRECTED PRN tamsulosin 0.4 mg cap(s) (FLOMAX) 0.4 mg ORAL DAILY albuterol 2.5 mg /3 mL (0.083 %) 2.5 mg (PROVENTIL) 2.5 mg INHALATION q 6 H PRN albuterol HFA 90 mcg/actuation 2 Puff (PROVENTIL HFA, VENTOLIN HFA) 2 Puff OTHER q 6 H PRN acetaminophen 650 mg tab(s) (TYLENOL) 650 mg ORAL q 6 H PRN melatonin 3 mg tab(s) 3 mg ORAL DAILY (8 PM) NaCl 0.9% iv flush bag 20 mL INTRAVENOUS PRN oxyCODONE IR 5 mg tab(s) (ROXICODONE) 5 mg ORAL q 8 H PRN carvedilol 6.25 mg tab(s) (COREG) 6.25 mg ORAL BID w MEALS amLODIPine 5 mg tab(s) (NORVASC) 5 mg ORAL DAILY apixaban 10 mg tab(s) (ELIQUIS) 10 mg ORAL BID Followed by [START ON 06/09/2023] apixaban 5 mg tab(s) (ELIQUIS) 5 mg ORAL BID famotidine 40 mg tab(s) (PEPCID) 40 mg ORAL AT BEDTIME calcium carbonate 1,000 mg chewable tab(s) (TUMS) 1,000 mg ORAL TID PRN Objective PHYSICAL EXAM: Physical Exam Performed: LUNGS: Lungs clear to auscultation, Good diaphragmatic excursion CARDIAC: Normal S1 and S2; no rubs, murmurs, or gallops BP 132/78 Pulse 66 Temp (Src) 97.7 (Oral) Resp 20 Ht 5' 4 (1.63m) Wt 162 lb (73.5kg) SpO2 93% LMP 07/24/2016 BMI 27.79 kg/(m2). O2 Therapy: Nasal Cannula, Liters: 3.00 DATA: Diagnostic tests reviewed for today's visit: Most recent labs and imaging results. SIGNATURE: Adriana Martinez MD PATIENT NAME: Damari Rios DATE: June 03, 2023 TIME: 2:09 PM PAGER: [phone] [facility] 06-03-2023 Note HNO ID: [id number] Author: Zainab Croft V, MD Service: Hospital Medicine Author Type: Physician Type: Progress Notes Filed: 06/03/2023 1:47 PM Note Text: PROGRESS NOTE - INTERNAL MEDICINE PATIENT NAME: Damari Rios SERVICE DATE: 06/03/2023 SERVICE TIME: 1:47 PM SUBJECTIVE INTERVAL HISTORY OF PRESENT ILLNESS: Somewhat short of breath needing oxygen overnight Resting in bed Ultrasound lower extremities ordered Discussed with pulmonary team, reconsult pulmonary ROS: OBJECTIVE PHYSICAL EXAM: Patient Vitals for the past 24 hrs: BP Temp Temp src Pulse Resp SpO2 06/03/23 1108 132/78 -- Oral 66 20 93 % 06/03/23 0914 128/84 -- -- 71 -- 96 % 06/03/23 0730 116/80 36.5 ?C (97.7 ?F) Oral 67 18 97 % 06/03/23 0036 138/77 36.5 ?C (97.7 ?F) Oral 72 18 95 % 06/02/23 2001 122/78 36.8 ?C (98.2 ?F) Oral 80 18 97 % 06/02/23 1547 135/90 36.6 ?C (97.9 ?F) Oral 70 20 -- Body mass index is 27.81 kg/m?. Intake/Output Summary (Last 24 hours) at 06/03/2023 0659 Last data filed at 06/02/20232050 Gross per 24 hour Intake 60 ml Output -- Net 60 ml GENERAL: healthy, alert, no distress, cooperative SKIN: NECK: no jugulovenous distention, no carotid bruits, carotid pulse normal contour, supple LUNGS: Lungs clear to auscultation. Good diaphragmatic excursion. CARDIAC: normal S1 and S2; no rubs, murmurs, or gallops ABDOMEN: Abdomen soft, non-tender. BS normal. No masses or organomegaly. EXTREMETIES: Extremities normal. No deformities, edema, clubbing or skin discoloration. NEURO: Alert, oriented X 3, Gait normal. Reflexes normal and symmetric. Sensation grossly intact., Cranial nerves II-XII intact PULSES: 2+ radial, 2+ carotid DATA: Diagnostic tests reviewed for today's visit: CBC: No results for input(s): WBC , RBC , HB , HCT , PLT , MCV , MCH , MPV , RDW in the last 24 hours. Coags: No results for input(s): PT , INR , APTT in the last 24 hours. BMP: No results for input(s): NA , K , CHLOR , CO2 , BUN , CREAT , GLUC in the last 24 hours. Cardiac Enzymes: No results for input(s): CK , MB , CKMB , TROPT in the last 24 hours. Liver Function, Amylase, Lipase: No results for input(s): TPROT , ALB , ALT , AST , ALKPHOS , TBILI , AMYLASE , LIPASE , LACTATE in the last 24 hours. MG/PHOS: No results for input(s): MG , P in the last 24 hours. ABG's: No results for input(s): PH , PCO2 , PO2 , BE , HCO3 , CO2CT , O2HB , COHB , MHGB , TEMP , PHTC , PCO2T , PO2T , O2AD in the last 24 hours. Recent diagnostic tests reviewed. ASSESSMENT AND PLAN Active Hospital Problems Other pulmonary embolism without acute cor pulmonale (HCC) [I26.99] Chest pain [R07.9] Hypertension [I10] History of pulmonary embolism [Z86.711] May need oxygen upon discharge SIGNATURE: Zainab Croft MD DATE: June 03, 2023 TIME: 1:47 PM [facility] 06-03-2023 Note HNO ID: [id number] Author: June Longo RN Service: Care Management Author Type: Registered Nurse Type: Care Mgt Initial Assessment Filed: 06/03/2023 10:47 AM Note Text: CARE MANAGEMENT: ASSESSMENT AND DISCHARGE PLAN SERVICE DATE: June 03, 2023 SERVICE TIME: 10:38 AM Pt stated has not seen this PCP for awhile, is affiliated with , would like new PCP with [facility], Medline information to be placed in follow up tab, pt aware will be in discharge paperwork. PCP: Kimberly Murguia MD Primary Contact: Extended Emergency Contact Information Primary Emergency Contact: Ysabel Valadez Address: [address] [address] [facility] Mobile Relation: Friend Admission Status: Inpatient Insurance Provider: [facility] MEDICA[employer] Discharge Planning requested by: Per Department Practice Potential Transition Plans Home Advance Directives Current Advance Directive: Health Care Power of Casino Gaming Worker In Chart: Yes Up To Date and Valid: No Box Toe Cementer Attempted to Assist with AD Completion: Yes Action: Education Provided Current Living Arrangements and Support Lives with: Other person(s) (Roommate) Type of Residence: Private Residence (House) Support: Family members, Children How do you manage to accomplish the following: Independent: Ambulation;Bathe/Shower;Dress;Meals /Meal Prep;Going to the bathroom;Medication Management;Transportation to appointments/community Current Services/Equipment Current Post-Acute Service(s): None Discharge Planning Patient Goal(s): Be able to go home, General wellness [place] Explained: [place] Given: No Reason Not Given: No placements necessary Caregiver Assessment: Caregiver is ready, willing and able to meet the patient's needs as recommended by the inter-professional team: No Caregiver needed Transport at Discharge: Transportation Arrangements: Car (Daughter to transport) Needs Prior to Discharge: Needs Prior to Discharge: To Be Determined;None Post-Acute Discharge Plan: lead case manager called patient at bedside. Explained role of batch and furnace operator and discharge planning. Pt anticipated returning home, self-care, denies any home going skilled needs at this time, independent prior to admission with ADL's, still drives, lives with a roommate. Stated her Daughter is an SERVOMECHANISM ASSEMBLER, and roommate is an RN. Pt denies any concerns getting medications at home or groceries. No skilled needs anticipated at this time. Pt here for for pleuritic pain and found to have pulm embolism, pulmonary and vascular surgery consulted. US DVT ordered today. Care management team is following patient for skilled needs and discharge planning. SIGNATURE: June Longo RN PATIENT NAME: Damari Rios DATE: June 03, 2023 TIME: 10:38 AM CONTACT #: [phone] [facility] 06-02-2023 Note HNO ID: [id number] Author: Note, Interface Service: ? Author Type: ? Type: Progress Notes Filed: 06/02/2023 5:57 AM Note Text: Epic Scheduled Downtime: 06/02/2023 1:00:00 AM to 06/02/2023 5:38:00 AM [facility] 05-28-2023 Note Formatting of this n ote might be different from the original. MEDICAATEDD WITH FENTANYL PER ASSISTANT COUNTY ENGINEER [facility] 05-28-2023 Note Formatting of this n ote might be different from the original. ESTHER PAD HAS SM AMT RED DRAINAGE PRESEENT [facility] Work Phone: 05-28-2023 Miscellaneous Notes MEDICAATEDD WITH FENTANYL PER ASSISTANT COUNTY ENGINEER ESTHER PAD HAS SM AMT RED DRAINAGE PRESEENT C/O HEARTBURN, LIKE SOMETHING STUCK IN MY CHEST -MIDSTERNAL BLOOD DRAWN FOR TROPONIN MEDICATED WITH MYLANTA FOR HEARTBURN EKG DONE 2ND DOSE OF HYDRALAZINE GIVEN FOR HTN MEDICATED FOR HTN VOIDING TRIAL STARTED Midurethral sling, cystoscopy, right oophorectomy Operative Note Date: 05/28/2023 OR Location: [facility] OR Name: Damari Rios, : 1975, Age: 47 y.o., , Sex: female Diagnosis Pre-op Diagnosis * Adnexal mass [N94.89] Post-op Diagnosis * Adnexal mass [N94.89] Procedures Laparoscopic right salpingoophorectomy Mid-urethral sling Surgeons * Main Reed - Primary Resident/Fellow/Other Assembly Line Robot Operator: Surgeon(s) and Role: Emma Teran Procedure Summary Anesthesia: General ASA: III Anesthesia Staff: ASSISTANT COUNTY ENGINEER: Judy De La Fuente APRN-ASSISTANT COUNTY ENGINEER Estimated Blood Loss: 10 mL Intra-op Medications: Medication Name Total Dose BUPivacaine HCl (Marcaine) 0.5 % (5 mg/mL) injection 15 mL clindamycin in D5W (Cleocin) IVPB 900 mg 900 mg Anesthesia Record Intraprocedure I/O Totals Intake LR 1500.00 mL Propofol Drip 0.00 mL The total shown is the total volume documented since Anesthesia Start was filed. Total Intake 1500 mL Specimen: ID Type Source Tests Collected by Time 1 : RIGHT OVARY Tissue OVARY OOPHORECTOMY RIGHT SURGICAL PATHOLOGY EXAM Main Reed MD 05/28/2023 9555 Staff: Optics Engineer: Alisia Gant RN; Nadya Langley RN Relief Scrub: Obey Storm Scrub Person: Russ Petit RN Drains and/or Catheters: Urethral Catheter Non-latex 16 Fr. (Active) Tourniquet Times: Implants: Findings: small cyst on right ovary , thin adhesions Indications: Damari Rios is an 47 y.o. female who is having surgery for Adnexal mass [N94.89]. The patient was seen in the preoperative area. The risks, benefits, complications, treatment options, non-operative alternatives, expected recovery and outcomes were discussed with the patient. The possibilities of reaction to medication, pulmonary aspiration, injury to surrounding structures, bleeding, recurrent infection, the need for additional procedures, failure to diagnose a condition, and creating a complication requiring transfusion or operation were discussed with the patient. The patient concurred with the proposed plan, giving informed consent. The site of surgery was properly noted/marked if necessary per policy. The patient has been actively warmed in preoperative area. Preoperative antibiotics have been ordered and given within 1 hours of incision. Venous thrombosis prophylaxis have been ordered including bilateral sequential compression devices Procedure Details: After general anesthesia was induced we entered the abdomen using the open Rivero technique. A 12 mm port was placed through the umbilicus. 2 5 mm ports were placed in the right and left lower quadrants under direct visualization and the third 5 mm port was placed 3 cm above the pubic bone at the midline. A survey of the abdomen revealed the findings above. We began the procedure by using LigaSure to come across the right IP ligament and completely amputate the ovary and tube off of the pelvic sidewall. The specimen was placed in the pelvis. It was then placed in the bag and removed through the umbilicus. Hemostasis was noted prior to completion of the procedure. All ports were removed the fascia was closed using 2-0 Vicryl stitch all skin incisions closed using 4-0 Monocryl. Two sites were identified with each site 2.5 cm. from the midline at the level of the symphysis pubis. 1% lidocaine with epinephrine was injected vaginally under the urethra in the vaginal epithelium and bilaterally in the direction of two periurethral tunnels that were about to be created for the sling. At this point, a 2 cm. sagittal excision was performed vaginally, beginning 1 cm. beneath the urethral meatus. Sharp dissection was carried out bilaterally using Metzenbaum scissors and periurethral tunnels were created bilaterally. A Elliott catheter with a catheter guide was inserted into the bladder. The TVT trocars were passed vaginally and retropubically with bladder deviation to the opposite side until it appeared suprapubically through a stab incision. The catheter was removed. A cystoscopy was performed, which was entirely normal. The bladder was drained. The trocars were brought up entirely suprapubically and excised. The end of the mesh was held in place with a Stephany clamp. The end of the mesh was held in place with a Stephany clamp. Tension was adjusted on the mesh by drawing up on the suprapubic ends with a #8 Hegar dilator maintained between the tape and the urethra. The plastic sheaths were removed bilaterally. The excess mesh was excised suprapubically. The suprapubic sites were closed with interrupted stitches of 4-0 Vicryl suture. The vaginal incision was closed with a running stitch of 0 Vicryl suture. Complications: None; patient tolerated the procedure well. Disposition: PACU - hemodynamically stable. Condition: stable Additional Details: Attending Attestation: I was present and scrubbed for the entire procedure. Main Reed documented in this encounter [facility] Work Phone: 05-28-2023 Note Formatting of this n ote might be different from the original. C/O HEARTBURN, LIKE SOMETHING STUCK IN MY CHEST -MIDSTERNAL [facility] Work Phone: 05-28-2023 Note Formatting of this n ote might be different from the original. BLOOD DRAWN FOR TROPONIN [facility] Work Phone: 05-28-2023 Note Formatting of this n ote might be different from the original. MEDICATED WITH MYLANTA FOR HEARTBURN [facility] Work Phone: 05-28-2023 Note Formatting of this n ote might be different from the original. EKG DONE [facility] Work Phone: 11-27-2023 Note Formatting of this n ote might be different from the original. 2ND DOSE OF HYDRALAZINE GIVEN FOR HTN [facility] Work Phone: 05-28-2023 Note Formatting of this n ote might be different from the original. MEDICATED FOR HTN [facility] Work Phone: 05-28-2023 Note Formatting of this n ote might be different from the original. VOIDING TRIAL STARTED [facility] Work Phone: 05-28-2023 Note Formatting of this n ote is different from the original. Midurethral sling, cystoscopy, right oophorectomy Operative Note Date: 05/28/2023 OR Location: [facility] OR Name: Damari Rios, : 1975, Age: 47 y.o., , Sex: female Diagnosis Pre-op Diagnosis * Adnexal mass [N94.89] Post-op Diagnosis * Adnexal mass [N94.89] Procedures Laparoscopic right salpingoophorectomy Mid-urethral sling Surgeons * Main Reed - Primary Resident/Fellow/Other Assembly Line Robot Operator: Surgeon(s) and Role: Emma Teran Procedure Summary Anesthesia: General ASA: III Anesthesia Staff: ASSISTANT COUNTY ENGINEER: Judy De La Fuente APRN-ASSISTANT COUNTY ENGINEER Estimated Blood Loss: 10 mL Intra-op Medications: Medication Name Total Dose BUPivacaine HCl (Marcaine) 0.5 % (5 mg/mL) injection 15 mL clindamycin in D5W (Cleocin) IVPB 900 mg 900 mg Anesthesia Record Intraprocedure I/O Totals Intake LR 1500.00 mL Propofol Drip 0.00 mL The total shown is the total volume documented since Anesthesia Start was filed. Total Intake 1500 mL Specimen: ID Type Source Tests Collected by Time 1 : RIGHT OVARY Tissue OVARY OOPHORECTOMY RIGHT SURGICAL PATHOLOGY EXAM Main Reed MD 05/28/2023 1335 Staff: Optics Engineer: Alisia Gant RN; Nadya Langley RN Relief Scrub: Obey Storm Scrub Person: Russ Petit RN Drains and/or Catheters: Urethral Catheter Non-latex 16 Fr. (Active) Tourniquet Times: Implants: Findings: small cyst on right ovary , thin adhesions Indications: Damari Rios is an 47 y.o. female who is having surgery for Adnexal mass [N94.89]. The patient was seen in the preoperative area. The risks, benefits, complications, treatment options, non-operative alternatives, expected recovery and outcomes were discussed with the patient. The possibilities of reaction to medication, pulmonary aspiration, injury to surrounding structures, bleeding, recurrent infection, the need for additional procedures, failure to diagnose a condition, and creating a complication requiring transfusion or operation were discussed with the patient. The patient concurred with the proposed plan, giving informed consent. The site of surgery was properly noted/marked if necessary per policy. The patient has been actively warmed in preoperative area. Preoperative antibiotics have been ordered and given within 1 hours of incision. Venous thrombosis prophylaxis have been ordered including bilateral sequential compression devices Procedure Details: After general anesthesia was induced we entered the abdomen using the open Rivero technique. A 12 mm port was placed through the umbilicus. 2 5 mm ports were placed in the right and left lower quadrants under direct visualization and the third 5 mm port was placed 3 cm above the pubic bone at the midline. A survey of the abdomen revealed the findings above. We began the procedure by using LigaSure to come across the right IP ligament and completely amputate the ovary and tube off of the pelvic sidewall. The specimen was placed in the pelvis. It was then placed in the bag and removed through the umbilicus. Hemostasis was noted prior to completion of the procedure. All ports were removed the fascia was closed using 2-0 Vicryl stitch all skin incisions closed using 4-0 Monocryl. Two sites were identified with each site 2.5 cm. from the midline at the level of the symphysis pubis. 1% lidocaine with epinephrine was injected vaginally under the urethra in the vaginal epithelium and bilaterally in the direction of two periurethral tunnels that were about to be created for the sling. At this point, a 2 cm. sagittal excision was performed vaginally, beginning 1 cm. beneath the urethral meatus. Sharp dissection was carried out bilaterally using Metzenbaum scissors and periurethral tunnels were created bilaterally. A Elliott catheter with a catheter guide was inserted into the bladder. The TVT trocars were passed vaginally and retropubically with bladder deviation to the opposite side until it appeared suprapubically through a stab incision. The catheter was removed. A cystoscopy was performed, which was entirely normal. The bladder was drained. The trocars were brought up entirely suprapubically and excised. The end of the mesh was held in place with a Stephany clamp. The end of the mesh was held in place with a Stephany clamp. Tension was adjusted on the mesh by drawing up on the suprapubic ends with a #8 Hegar dilator maintained between the tape and the urethra. The plastic sheaths were removed bilaterally. The excess mesh was excised suprapubically. The suprapubic sites were closed with interrupted stitches of 4-0 Vicryl suture. The vaginal incision was closed with a running stitch of 0 Vicryl suture. Complications: None; patient tolerated the procedure well. Disposition: PACU - hemodynamically stable. Condition: stable Additional Details: Attending Attestation: I was present and scrubbed for the entire procedure. Main Reed [facility] Work Phone: 05-28-2023 Hospital Discharge instructions Emma Teran MD - 05/28/2023 12:[address] Reed for any problems and/or concerns *Walk as much as possible, it is ok to use stairs carefully *Continue the coughing and deep breathing exercises that your learned in the hospital *No lifting/straining greater than 10 pounds for 6 weeks (Avoid strenuous activity) *Vaginal rest for 6 weeks (Do not put anything in your vagina. Do not use tampons or douches. Do not have sex until cleared by physician) *Prevent constipation by using stool softeners and staying hydrated, so that you do not strain against your stitches or have pain from constipation Call Doctor right away for: *Fever above 100.4/shaking chills *Bright red vaginal bleeding or bleeding that soaks more than one sanitary pad per hour *A foul smelling discharge from the vagina *Trouble urinating or burning with urination *Severe pain or bloating in your abdomen *Persistent nausea/vomiting *Redness, swelling, or drainage at your incision sites *Chest pain/shortness of breath-call 911. - You will be going home with prescriptions for pain medication. If you are able to take them, alternate a dose of Acetaminophen (Tylenol) and toradol (NSAID) every 3 hours. (For example, 1000mg of Tylenol at 09:00am, 10mg tolradol at 12:00pm, 1000mg of Tylenol at 3:00pm, 10mg toradol at 6:00pm). Use any prescribed narcotic (ie tramadol) for breakthrough pain as prescribed. Use a stool softener, such as Miralax, to prevent constipation from the narcotic medication. documented in this encounter [facility] Work Phone: 05-28-2023 History and physical note History Of Present Illness Damari Rios is a 47 y.o. female with hx of complex adnexal mass and SIDRA who presents for surgical management. I have met the patient, reviewed her history. Since she was last seen by Dr. Reed 03/26/23, she underwent UDS which demonstrated + SIDRA. She also was seen in the ER () for abdominal / pelvic pain and she was treated for presumed nephrolithiasis. CT scan during ER visit showed: R-sided nonobstructing calculi in the lower pole collecting system 4 and 7 mm in diameter but there is no hydronephrosis on either side and both ureters appear normal. Previously seen cystic mass in R adenxa no longer present. No free fluid, no lymphadenopathy. TVUS (03/09/23): Within the right pelvis/adnexal region there is a complex cystic lesion measuring 5.4 x 5.1 x 4.6 cm with intrinsic septation or daughter cyst as well as some low level intrinsic echoes possibly representing debris. L ovary not seen. Small volume free fluid. S/p hyst. Ca125: 8.8 Past Medical History Past Medical History: Diagnosis Date Asthma Colon polyp COPD (chronic obstructive pulmonary disease) (CMS/HCC) Dysfunctional uterine bleeding GERD (gastroesophageal reflux disease) Hypertension Nephrolithiasis Personal history of other diseases of the circulatory system History of hypertension Personal history of other diseases of the respiratory system History of chronic obstructive lung disease Polycystic ovarian disease Surgical History Past Surgical History: Procedure Laterality Date CHOLECYSTECTOMY CYSTOSCOPY HYSTERECTOMY TUBAL LIGATION Social History She reports that she has never smoked. She has never been exposed to tobacco smoke. She has never used smokeless tobacco. She reports that she does not drink alcohol and does not use drugs. Family History Family History Problem Relation Name Age of Onset Ovarian cancer Mother Coronary artery disease Mother Other (Diabetes mellitus) Mother Hypertension Father Heart disease Father Hypertension Sister Heart disease Sister Hypertension Other grandparent Heart disease Other grandparent Heart disease Other grandmother 52 Allergies Penicillins, Naproxen, Sulfamethoxazole-trimethoprim, Tramadol hcl, and Codeine Review of Systems Constitutional: Negative. HENT: Negative. Eyes: Negative. Respiratory: Negative. Cardiovascular: Negative. Gastrointestinal: Negative. Neurological: Negative. Physical Exam Last Recorded Vitals Blood pressure (!) 184/111, pulse 68, temperature 36.7 C (98 F), temperature source Temporal, resp. rate 12, height 1.626 m (5' 4 ), weight 73.5 kg (162 lb), last menstrual period 07/01/2017, SpO2 100 %. GEN: pt resting comfortably in preop CV: RRR Pulm: breathing comfortably on RA, no extra WOB Abdomen: Soft, non-distended LE: no edema Pelvic: defer to OR Assessment/Plan Principal Problem: Adnexal mass - Consents: MUS, cystoscopy, BS, possible RO, possible LO - PCN allergy (anaphylaxis/ hives), plan for Gent/clinda - Dispo: home following surgery Emma Teran MD [facility] Work Phone: 05-28-2023 History and physical note History Of Present Illness Damari Rios is a 47 y.o. female with hx of complex adnexal mass and SIDRA who presents for surgical management. I have met the patient, reviewed her history. Since she was last seen by Dr. Reed 03/26/23, she underwent UDS which demonstrated + SIDRA. She also was seen in the ER () for abdominal / pelvic pain and she was treated for presumed nephrolithiasis. CT scan during ER visit showed: R-sided nonobstructing calculi in the lower pole collecting system 4 and 7 mm in diameter but there is no hydronephrosis on either side and both ureters appear normal. Previously seen cystic mass in R adenxa no longer present. No free fluid, no lymphadenopathy. TVUS (03/09/23): Within the right pelvis/adnexal region there is a complex cystic lesion measuring 5.4 x 5.1 x 4.6 cm with intrinsic septation or daughter cyst as well as some low level intrinsic echoes possibly representing debris. L ovary not seen. Small volume free fluid. S/p hyst. Ca125: 8.8 Past Medical History Past Medical History: Diagnosis Date Asthma Colon polyp COPD (chronic obstructive pulmonary disease) (CMS/HCC) Dysfunctional uterine bleeding GERD (gastroesophageal reflux disease) Hypertension Nephrolithiasis Personal history of other diseases of the circulatory system History of hypertension Personal history of other diseases of the respiratory system History of chronic obstructive lung disease Polycystic ovarian disease Surgical History Past Surgical History: Procedure Laterality Date CHOLECYSTECTOMY CYSTOSCOPY HYSTERECTOMY TUBAL LIGATION Social History She reports that she has never smoked. She has never been exposed to tobacco smoke. She has never used smokeless tobacco. She reports that she does not drink alcohol and does not use drugs. Family History Family History Problem Relation Name Age of Onset Ovarian cancer Mother Coronary artery disease Mother Other (Diabetes mellitus) Mother Hypertension Father Heart disease Father Hypertension Sister Heart disease Sister Hypertension Other grandparent Heart disease Other grandparent Heart disease Other grandmother 52 Allergies Penicillins, Naproxen, Sulfamethoxazole-trimethoprim, Tramadol hcl, and Codeine Review of Systems Constitutional: Negative. HENT: Negative. Eyes: Negative. Respiratory: Negative. Cardiovascular: Negative. Gastrointestinal: Negative. Neurological: Negative. Physical Exam Last Recorded Vitals Blood pressure (!) 184/111, pulse 68, temperature 36.7 C (98 F), temperature source Temporal, resp. rate 12, height 1.626 m (5' 4 ), weight 73.5 kg (162 lb), last menstrual period 07/01/2017, SpO2 100 %. GEN: pt resting comfortably in preop CV: RRR Pulm: breathing comfortably on RA, no extra WOB Abdomen: Soft, non-distended LE: no edema Pelvic: defer to OR Assessment/Plan Principal Problem: Adnexal mass - Consents: MUS, cystoscopy, BS, possible RO, possible LO - PCN allergy (anaphylaxis/ hives), plan for Gent/clinda - Dispo: home following surgery Emma Teran MD documented in this encounter [facility] Work Phone: 05-22-2023 History of Present illness Narrative Damari Rios 47 y.o. female Procedures: Patient referred by Dr. Reed for urodynamics to evaluate urinary incontinence. Dr. Perez was present in office at time of study. Urine was clear for uti today. Pre-uroflow was completed today with pvr of 50 ml. Patient did leak on CLPP. Pvr after study was 0 ml. Patient instructed to increase fluids if she has any burning or blood in urine. Patient made aware she may have blood rectally due to abdominal catheter insertion. Patient understood and consented to urodynamics. Patient will follow up with Dr. Reed to review results. 05/22/2023/las documented in this encounter [facility] Work Phone: 04-24-2023 History of Present illness Narrative See report documented in this encounter [facility] Work Phone: 04-05-2023 History of Present illness Narrative Subjective Patient ID: Damari Rios is a 47 y.o. female who presents for No chief complaint on file.. HPI This is a 47-year-old female with history of hypertension, S/P cholecystectomy, fibromyalgia, nephrolithiasis, chronic back pain-opioid/NSAIDs use, COPD [place] [facility] [place], right renal calculi who came to GI clinic for further evaluation due to epigastric pain, dysphagia. She used to have GERD with symptom of heartburn for a while however experiences trouble swallowing mostly with solid with epigastric pain for last 3 to 4 months associated with vomiting/regurgitation. Feels like food is stuck in esophagus .Also report abdominal bloating mostly in the morning. She was started on pantoprazole on discharge from hospital. Some improvement of symptoms with pantoprazole but not resolved. Also reports intermittent diarrhea since gallbladder removal at the age of 21. She denies constipation melena/hematochezia. Takes NSAIDs as needed due to chronic back pain. Denies heavy alcohol, smoking. CBC, CMP unremarkable. CT scan on 03/08/2023: Hepatic steatosis. No family history of colon cancer. No previous EGD, colonoscopy Review of Systems Constitutional: Negative for fever and unexpected weight change. Cardiovascular: Negative. Gastrointestinal: Positive for abdominal distention, abdominal pain, diarrhea and vomiting. Musculoskeletal: Positive for back pain. Skin: Negative for color change. Neurological: Negative for dizziness. 12 Point ROS negative outside of symptoms stated above in HPI Past Medical History: Diagnosis Date Hypertension Personal history of other diseases of the circulatory system History of hypertension Personal history of other diseases of the respiratory system History of chronic obstructive lung disease Past Surgical History: Procedure Laterality Date CHOLECYSTECTOMY HYSTERECTOMY TUBAL LIGATION No relevant family history has been documented for this patient. reports that she has never smoked. She has never been exposed to tobacco smoke. She has never used smokeless tobacco. She reports that she does not drink alcohol and does not use drugs. Allergies Allergen Reactions Penicillins Anaphylaxis and Hives Naproxen Other Sulfamethoxazole-Trimethoprim Other Tramadol Hcl Unknown Codeine Rash Objective Current Outpatient Medications: acetaminophen (TylenoL) 325 mg capsule, Take 2 capsules (650 mg) by mouth every 6 hours if needed., Disp: , Rfl: albuterol (Ventolin HFA) 90 mcg/actuation inhaler, Inhale 2 puffs every 4 hours if needed for wheezing or shortness of breath., Disp: 8 g, Rfl: 5 albuterol 2.5 mg /3 mL (0.083 %) nebulizer solution, Inhale 3 mL every 6 hours if needed for wheezing or shortness of breath. Inhale over 5-15 minutes, Disp: , Rfl: carvedilol (Coreg) 6.25 mg tablet, Take 1 tablet (6.25 mg) by mouth 2 times a day., Disp: , Rfl: EPINEPHrine 0.3 mg/0.3 mL injection syringe, Use as directed for bee sting, Disp: , Rfl: famotidine (Pepcid) 40 mg tablet, Take 1 tablet (40 mg) by mouth once daily at bedtime., Disp: , Rfl: IBU 800 mg tablet, Take 1 tablet (800 mg) by mouth every 8 hours if needed for moderate pain (4 - 6)., Disp: 90 tablet, Rfl: 1 lisinopril 20 mg tablet, Take 1 tablet (20 mg) by mouth once daily., Disp: , Rfl: LotreL 5-10 mg capsule, Take 1 capsule by mouth once daily. for 90 day(s), Disp: , Rfl: pantoprazole (ProtoNix) 40 mg EC tablet, Take 1 tablet (40 mg) by mouth once daily in the morning. Take before meals., Disp: , Rfl: albuterol 90 mcg/actuation inhaler, Inhale 1-2 puffs. Every 4-6 hours as needed, Disp: , Rfl: fluticasone (Flonase) 50 mcg/actuation nasal spray, Administer 1 spray into each nostril 2 times a day., Disp: , Rfl: gabapentin (Neurontin) 300 mg capsule, Take 1-2 capsules (300-600 mg) by mouth once daily at bedtime., Disp: , Rfl: hydrOXYzine HCL (Atarax) 25 mg tablet, Take 1 tablet (25 mg) by mouth as needed at bedtime. for 90 day(s), Disp: , Rfl: LORazepam (Ativan) 1 mg tablet, Take 1 tablet (1 mg) by mouth once every 24 hours., Disp: , Rfl: oxyCODONE (Roxicodone) 5 mg immediate release tablet, Take 1 tablet (5 mg) by mouth every 8 hours if needed (for pain)., Disp: , Rfl: tamsulosin (Flomax) 0.4 mg 24 hr capsule, Take 1 capsule (0.4 mg) by mouth once daily., Disp: , Rfl: traZODone (Desyrel) 50 mg tablet, 1 tablet (50 mg)., Disp: , Rfl: BP (!) 186/96 (BP Location: Left arm, Patient Position: Sitting) Pulse 73 Ht 1.626 m (5' 4 ) Wt 73 kg (161 lb) BMI 27.64 kg/m Physical Exam Constitutional: General: She is not in acute distress. Appearance: She is not ill-appearing. HENT: Head: Normocephalic. Mouth/Throat: Mouth: Mucous membranes are moist. Cardiovascular: Rate and Rhythm: Normal rate and regular rhythm. Pulmonary: Effort: Pulmonary effort is normal. Breath sounds: Normal breath sounds. Abdominal: General: Abdomen is flat. Bowel sounds are normal. There is no distension. Palpations: Abdomen is soft. Tenderness: There is abdominal tenderness. There is no guarding or rebound. Comments: Mild epigastric tenderness Skin: Comments: Multiple tattoos Neurological: Mental Status: She is alert and oriented to person, place, and time. Assessment/Plan GERD Dysphagia-rule out reflux esophagitis, stricture, dysmotility Change of bowel habit since cholecystectomy. Hepatic steatosis. Normal LFTs EGD for further evaluation Screening colonoscopy Further recommendation as per EGD findings Yearly monitor LFTs Avoid alcohol, NSAIDs Follow-up with GI in 2 months documented in this encounter [facility] Work Phone: 04-05-2023 Instructions Janny Bai MD - 04/05/2023 3:00 PM EDT EGD for further evaluation Screening colonoscopy Further recommendation as per EGD findings Avoid alcohol, NSAIDs Follow-up with GI in 2 months documented in this encounter [facility] Work Phone: 03-20-2023 History of Present illness Narrative Subjective Patient ID: Damari Rios is a 47 y.o. female who presents for Establish Care and Med Refill. HPI Patient presented to the office to establish care. She also need medication refill. Review of Systems Constitutional: Negative for activity change, appetite change, fatigue, fever and unexpected weight change. HENT: Negative for dental problem, ear discharge, hearing loss, nosebleeds, postnasal drip, sinus pain, sore throat, trouble swallowing and voice change. Eyes: Negative for photophobia, pain and visual disturbance. Respiratory: Negative for cough, chest tightness, shortness of breath, wheezing and stridor. Cardiovascular: Negative for chest pain, palpitations and leg swelling. Gastrointestinal: Negative for abdominal pain, blood in stool, constipation, diarrhea, nausea and vomiting. Endocrine: Negative for polydipsia, polyphagia and polyuria. Genitourinary: Negative for decreased urine volume, dyspareunia, dysuria, flank pain, frequency, hematuria and urgency. Musculoskeletal: Negative for arthralgias, back pain, gait problem, joint swelling, myalgias and neck pain. Skin: Negative for color change, rash and wound. Allergic/Immunologic: Negative for environmental allergies and food allergies. Neurological: Negative for dizziness, tremors, seizures, syncope, facial asymmetry, speech difficulty, weakness, light-headedness, numbness and headaches. Hematological: Negative for adenopathy. Psychiatric/Behavioral: Negative for behavioral problems, confusion, hallucinations, self-injury, sleep disturbance and suicidal ideas. The patient is not nervous/anxious. Objective BP 126/74 Pulse 60 Temp 36.1 C (96.9 F) Ht 1.638 m (5' 4.5 ) Wt 73.9 kg (163 lb) SpO2 97% BMI 27.55 kg/m Physical Exam Constitutional: General: She is not in acute distress. Appearance: Normal appearance. She is not ill-appearing or toxic-appearing. HENT: Head: Normocephalic and atraumatic. Nose: Nose normal. Eyes: General: Right eye: No discharge. Left eye: No discharge. Extraocular Movements: Extraocular movements intact. Conjunctiva/sclera: Conjunctivae normal. Pupils: Pupils are equal, round, and reactive to light. Cardiovascular: Rate and Rhythm: Normal rate and regular rhythm. Pulses: Normal pulses. Heart sounds: Normal heart sounds. No murmur heard. No gallop. Pulmonary: Effort: Pulmonary effort is normal. No respiratory distress. Breath sounds: Normal breath sounds. No stridor. No wheezing or rales. Abdominal: General: Bowel sounds are normal. Palpations: Abdomen is soft. Tenderness: There is no abdominal tenderness. There is no right CVA tenderness or left CVA tenderness. Musculoskeletal: General: No swelling or deformity. Normal range of motion. Cervical back: Normal range of motion and neck supple. No rigidity or tenderness. Right lower leg: No edema. Left lower leg: No edema. Skin: General: Skin is warm. Coloration: Skin is not jaundiced. Findings: No bruising, erythema or rash. Comments: She has several skin Tattoos. Neurological: General: No focal deficit present. Mental Status: She is alert and oriented to person, place, and time. Cranial Nerves: No cranial nerve deficit. Gait: Gait normal. Psychiatric: Mood and Affect: Mood normal. Behavior: Behavior normal. Thought Content: Thought content normal. Judgment: Judgment normal. Assessment/Plan Problem List Items Addressed This Visit None Visit Diagnoses Breast cancer screening by mammogram - Primary Relevant Orders BI mammo bilateral screening tomosynthesis Encounter for annual physical exam Relevant Orders Hemoglobin A1C Vitamin D 25-Hydroxy,Total (for eval of Vitamin D levels) Hepatitis C Antibody HIV 1/2 Antigen/Antibody Screen with Reflex to Confirmation Lipid Panel Colon cancer screening Relevant Orders Colonoscopy Screening Arthritis Relevant Medications IBU 800 mg tablet Moderate asthma without complication, unspecified whether persistent Relevant Medications albuterol (Ventolin HFA) 90 mcg/actuation inhaler documented in this encounter [facility] Work Phone: 03-14-2023 Note Send Summary: Discharge Summary Providers: Provider RoleProvider Name Farnaz Daniel Brian ConsultingSheyn, David PrimaryKousa, Haitham Joseph Note Recipients: Kimberly Murguia MD - [id number] [Preferred] Discharge: Summary: Admission Date: .08-Mar-2023 15:36:00 Discharge Date: 14-Mar-2023 Attending Physician at Discharge: Konrad Delgado Admission Reason: Right renal calculi and pyelonephritis(1) Final Discharge Diagnoses: Pyelonephritis, lithiasis, pulmonary edema, right ovarian cystic lesion, hypertension, hypokalemia, GERD with concerns of peptic ulcer disease Procedures: none Condition at Discharge: Satisfactory Disposition at Discharge: .Home Vital Signs: T PRBPMAPSpO2 [id number]% Date/Time03/14 9: 9: 9: 9: 9:59 Range(35.9C - 36.5C ) (53 - 66 ) (17 - 18 ) (142 - 180 )/ (78 - 104 ) (95% - 99% ) Date: Weight/Scale Type:Height: 09-Mar-2023 13:0077.4 kg / yzt422.5 cm Physical Exam: Constitutional: Patient is alert. NAD. Eyes: Clear sclera. Respiratory/Thorax: CTAB. Cardiovascular: RRR. Gastrointestinal: Soft. Mild, diffuse abdominal tenderness with no guarding. Bowel sounds present. Psychological: Cooperative. Hospital Course: Patient is a 47-year-old female with past medical history of nephrolithiasis, hypertension, fibromyalgia, chronic opiate use, COPD, was admitted to the hospital with pyelonephritis, right renal calculi. She was found to have acute pyelonephritis complicated by nephrolithiasis. She was evaluated by urology who recommended no acute urologic intervention at this time but to follow-up with urology as an outpatient. Imaging also noted a right ovarian cystic lesion. Here I see a 125 was ordered and found to be within normal limits. She is advised to follow-up with urogyn for a possible laparoscopic right oophorectomy near the end of the month. Her stay was complicated by shortness of breath. This was attributed to pulmonary edema. EKG showed no acute ST/T wave changes, troponins were within normal limits x2 and D-dimer was elevated and a CT angio was obtained that did not reveal a PE but did reveal a small pleural effusion and moderate interstitial pulmonary edema. This was attributed to IV fluids. She received Lasix during this hospitalization and her symptoms improved. Patient also reported epigastric pain with eating. She is status postcholecystectomy however reports that her symptoms have been present over the past month. She also reports recent NSAID use. She is advised to decrease the bout of NSAIDs and start Protonix. 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 Overall time spent on discharge was longer than 35 min. Immunizations: Immunizations: 11-Mar-2023 .Influenza- Influenza Virus: Immunizations, 11-Mar-2023 Discharge Information: and Continuing Care: Lab Results - Pending: None Radiology Results - Pending: None Discharge Instructions: Activity: activity as tolerated. Nutrition/Diet: regular Follow Up Appointments: Follow-Up Appointment 01: Physician/Dept/Service: Dr. Reed Reason for Referral: Nephrolithasis and right ovarian cystic lesion Follow-Up Appointment 02: Physician/Dept/Service: PCP Reason for Referral: Hospital follow up Call to Schedule in: 1 week Follow-Up Appointment 03: Physician/Dept/Service: Dr. Bai Discharge Medications: Home Medication metoprolol tartrate 10 mg/mL oral solution - 1 tab(s) orally once a day furosemide 20 mg oral tablet - 1 tab(s) orally 4 times a week ciprofloxacin 500 mg oral tablet - 1 tab(s) orally 2 times a day Protonix 40 mg oral delayed release tablet - 1 tab(s) orally once a day (in the morning) Pepcid 40 mg oral tablet - 1 tab(s) orally once a day (at bedtime) oxyCODONE 5 mg oral capsule - 1 cap orally every 8 hours as needed for pain Dx:N20.0 Work note - Damari was admitted to the hospital on 03/08/23 and discharged on 03/14/23. She may return to work with no restrictions on or after 03/19/23 PRN Medication ibuprofen 800 mg oral tablet - 1 tab(s) orally every 8 hours, As Needed albuterol 90 mcg/inh inhalation powder - 2 puff(s) inhaled every 6 hours, As Needed DNR Status: Code StatusCode Status order at time of discharge: Full Code Electronic Signatures: Konrad Delgado () (Signed 14-Mar-2023 12:28) Authored: Send Summary, Summary Content, Immunizations, Ongoing Care, DNR Status, Note Completion Last Updated: 14-Mar-2023 12:28 by Konrad Delgado () References: 1. Data Referenced From History and Physical 08-Mar-2023 23:30 [facility] 03-09-2023 Note History of Present I llness: /Lactating: Are You no (1) Are You Currently Breastfeedingno (1) Admission Reason: Right renal calculi and pyelonephritis HPI: DAMARI RIOS is a 47 year old Female with history of nephrolithiasis and hypertension who presented to the emergency department with generalized abdominal pain, worse in right lower quadrant, associated with nausea, fever with a temperature of 102, chills, and rigors that began a week ago. She admits to urinary frequency and back pain but denied dysuria or hematuria. No diarrhea, hematemesis, hematochezia or melena. Labs in the ED were notable mainly for findings of a UTI on UA. CT of the abdomen and pelvis revealed multiple right-sided renal calculi with right perinephric edema and fullness suggestive of pyelonephritis. 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 Allergies: penicillin: Anaphylaxis Intolerances: codeine: GI Upset Medications Prior to Admission: ibuprofen 800 mg oral tablet: 1 tab(s) orally every 8 hours, As Needed albuterol 90 mcg/inh inhalation powder: 2 puff(s) inhaled every 6 hours, As Needed metoprolol tartrate 10 mg/mL oral solution: 1 tab(s) orally once a day furosemide 20 mg oral tablet: 1 tab(s) orally 4 times a week. Review of Systems: Constitutional: COMMENTS: See HPI Eyes: NEGATIVE: Blurry Vision, Drainage, Diploplia, Redness, Vision Loss/ Change ENMT: NEGATIVE: Nasal Discharge, Nasal Congestion, Ear Pain, Mouth Pain, Throat Pain Respiratory: NEGATIVE: Dry Cough, Productive Cough, Hemoptysis, Wheezing, Shortness of Breath Cardiac: NEGATIVE: Chest Pain, Dyspnea on Exertion, Orthopnea, Palpitations, Syncope Gastrointestinal: COMMENTS: See HPI Genitourinary: COMMENTS: See HPI Musculoskeletal: NEGATIVE: Decreased ROM, Pain, Swelling, Stiffness, Weakness Neurological: NEGATIVE: Dizziness, Confusion, Headache, Seizures, Syncope Psychiatric: NEGATIVE: Mood Changes, Anxiety, Hallucinations, Sleep Changes, Suicidal Ideas Skin: NEGATIVE: Mass, Pain, Pruritus, Rash, Ulcer Endocrine: NEGATIVE: Heat Intolerance, Cold Intolerance, Sweat, Polyuria, Thirst Hematologic/Lymph: NEGATIVE: Anemia, Bruising, Easy Bleeding, Night Sweats, Petechiae Allergic/Immunologic: NEGATIVE: Anaphylaxis, Itchy/ Teary Eyes, Itching, Sneezing, Swelling Objective: Objective Information: T PRBPMAPSpO2 [id number]% Date/Time03/08 21: 21: 21: 20:399/7 21:06 Range(36.3C - 37.1C ) (89 - 119 ) (16 - 18 ) (152 - 192 )/ (78 - 99 ) (97% - 100% ) Highest temp of 37.1 C was recorded at 03/08 15:54 Pain reported at 03/08 17:57: 6 = Moderate Physical Exam by System: Constitutional: Well developed, well nourished and in no apparent distress at rest. Alert and oriented x3, cooperative. Eyes: EOMI, no scleral icterus and no conjunctival injection ENMT: Mucous membranes moist, clear throat without erythema or exudate Head/Neck: Neck supple, thyroid without mass or tenderness, No JVD, no carotid bruits, trachea midline. Respiratory/Thorax: CTAB. No rales, rhonchi or wheezes. Thorax symmetric Cardiovascular: S1 and S2 regular. No murmur, rub or gallop. [place] beat not displaced. Gastrointestinal: Soft, tender in RLQ, no rebound tenderness or guarding, no masses palpable, no organomegaly, normoactive bowel sounds, no bruits Genitourinary: Right CVAT Musculoskeletal: FROM present in all major joints. No visible joint deformities. No muscle, bone or joint tenderness. Extremities: No cyanosis, clubbing or edema. Distal pulses palpable 2+ Neurological: Normal cognition. No focal motor or sensory deficits. Lymphatic: No significant lymphadenopathy Psychological: Appropriate mood and behavior Skin: Intact, warm and dry, no lesions, no rashes Medications: Medications: Continuous Medications 1. Lactated Ringers Infusion: 1000 mL IntraVenous Scheduled Medications 1. Acetaminophen: 975 mg Oral Every 8 Hours 2. Ciprofloxacin 400 mg IVPB/ Premixed Soln 200 mL: 200 mL IntraVenous Piggyback Every 12 Hours 3. Docusate: 100 mg Oral 2 Times a Day 4. Enoxaparin SubCutaneous: 40 mg SubCutaneous Every 24 Hours 5. Influenza Virus QUADRIVALENT (Inactive) ADULT Vaccine: 0.5 mL IntraMuscular Once 6. Iohexol (Omnipaque 350-Radiology Contrast): 116.1 mL IntraVenous Push Once 7. Ketorola (more content not included)... [facility] 08-23-2022 Evaluation note Encounter Date Diagnosis Assessment Notes Aug, Encounter for screening mammogram for malignant neoplasm of breast (ICD-10 - Z12.31) Aug, Blood blister (ICD-10 - T14.8XXA) Aug, Anxiety (ICD-10 - F41.9) [facility]. Other 10-25-2022 History of Present illness Narrative* Aristeo Maldonado PA-C - 04/25/2022 8:19 AM EDT New patient referred by Self for L hand concerns. Chief Complaint: L hand numbness HPI: Ms. Rios is a R hand dominant 46 year old female who is active with a chief complaint of intermittent L hand numbness. The symptoms have been going on for 1 month. Pt states it started around the time she suffered a L forearm laceration. The patient C/O intermittent L small and ring finger numbness. Evaluation to date has included XR. Treatment to date has included none. The current symptoms are rated a 6/10. The symptoms are improved by rest and exacerbated by use. + changes to digital sensation. Pt is not diabetic PAST MEDICAL HISTORY Diagnosis Date Bipolar I disorder, most recent episode (or current) unspecified Calculus of bile duct without mention of cholecystitis, with obstruction Irritable bowel syndrome Kidney stone Known health problems: none 04/04/2021 Other and unspecified ovarian cyst Other cholecystitis Seasonal allergies Temporomandibular joint disorders, unspecified Unspecified asthma(493.90) Current Outpatient Medications Medication Sig Dispense Refill Nebulizers Lifetime supplies 1 Each 0 Nebulizer and Compressor For Neb Dispense one nebulizer with lifetime supplies 1 Each 0 ondansetron (ZOFRAN) 4 mg tablet Take 1 tablet by mouth every 8 hours as needed. 10 tablet 0 EPINEPHrine (EPIPEN) 0.3 mg/0.3 mL auto-injector Use as directed for bee sting 2 Each 1 tamsulosin ER (FLOMAX) 0.4 mg cap Take 1 capsule by mouth once daily. 30 minutes after the same meal each day. 30 capsule 0 albuterol (PROVENTIL) 2.5 mg /3 mL (0.083 %) nebulizer solution Use 3 mL via nebulizer every 6 hours as needed for Wheezing/Shortness of Breath. Inhale over 5-15 minutes 100 Vial 5 albuterol HFA (PROAIR HFA) 90 mcg/actuation inhaler 2 Puffs every 6 hours as needed for Wheezing/Shortness of Breath. Take as directed 3 Inhaler 0 predniSONE (DELTASONE) 10 mg tablet 4 tabs for 4 days, 3 tabs for 3 days, 2 tabs for 2 days, 1 tab for 2 days (Patient not taking: Reported on 04/04/2021 ) 31 tablet 0 mometasone-formoterol (DULERA) 200-5 mcg/actuation inhaler Inhale 2 Puffs as instructed twice daily. (Patient not taking: Reported on 04/04/2021 ) 1 Inhaler 5 loratadine (CLARITIN) 10 mg tablet Take 1 tablet by mouth once daily. (Patient not taking: Reportedon 06/19/2019 ) 30 tablet 5 No current facility-administered medications for this visit. ALLERGIES Allergen Reactions Penicillins Anaphylaxis Bactrim [Sulfametho* Codeine Rash Ultram [Tramadol Hc* Intolerance ROS: REVIEW OF SYMPTOMS: Constitutional: patient denies any recent fever or significant change in weight Gastrointestinal: patient denies any current abdominal discomfort Musculoskeletal: as noted in the HPI Neurologic: as noted in the HPI SOCIAL HISTORY: Tobacco Use: Never All medical history, medications and allergies have been discussed with the patient today. PHYSICAL EXAMINATION: Ms.. Rios is a healthy appearing female in no acute distress. Vitals: LMP 07/24/2016 Orientation: Normal: Oriented to person, place and time Psych: normal MSK exam: Bilateral upper limbs have equal and intact peripheral pulses. Skin does not demonstrate any rashes or lesions. Cervical spine has full range of motion and no tenderness to palpation, Negative Spurling's on the bilateral side(s). Shoulders have pain freerange of motion. Well healed 2cm laceration over the dorsal ulnar aspect of the L forearm. + hard scar tissue palpated under the laceration site. + hypersensitivity over the scar. + tinel over the L cubital tunnel. Sensation intact allfingers. + sensation decreased with prolonged L elbow flexion. Negative tinel over the L carpal tunnel CLINICAL IMPRESSION / ASSESSMENT: Cubital tunnel syndrome on left (primary encounter diagnosis) Laceration of left forearm, sequela Plan: I discussed with Ms.. Rios the diagnosis and different treatment options. We discussed observation,further testing, splinting, cortisone injections, surgical intervention, and the risks and benefits of all were clearly outlined. After discussing in detail the patient elects for NMUS and EMG to evaluate the nerves of the arm. RTC after both obtained Aristeo Maldonado PA-C April 25, 2022 8:30 AM documented in this encounterOhio[facility] note* Encounter Date Diagnosis Assessment Notes Treatment Notes Treatment Clinical Notes Apr, Hypertension (ICD-10 - I10) I will have her stop her metoprolol for now due to her asthma an change to lotrel 11/08. keep bp log and recheck 4-6 wks with log. Apr, Laceration of forearm, left (ICD-10 - S51.812A) sutures removed and follow up with ortho as scheduled near future. [facility]. Other 09-20-2022 Evaluation note* Encounter Date Diagnosis Assessment Notes Treatment Notes Treatment Clinical Notes Mar, Encounter for immunization (ICD-10 - Z23) Patient Educated with: www.cdc.gov/vaccin es/hcp/vis/current -vis.html (www.cdc.gov/vacci ashwini/hcp/vis/xiomara t-vis.html) Mar, Laceration of forearm, left (ICD-10 - S51.812A) Mar, Other Observation 20 minutes post injection - no side effects [facility]. Other 09-15-2022 Hospital Discharge instructions ED Discharge Education Evaluation from 03/16/2022 12:20 AM: * Discharge Instruction : Reviewed Discharge Instructions with Patient/Significant Other,Patient/Significant Other Verbalized Understanding of Discharge Instructions * Educ Topic #1 : Disease Specific * Barriers to Learning : No Barriers * Teaching Method : Audiovisual,Demonstration * Evaluation Method : Written,Verbal Patient Transfer Information from 03/15/2022 8:02 PM: * LOC : Alert Physician Follow-up Plan/Appointments from 03/16/2022 12:01 AM: * Patient stated Primary Care Provider : Frankie Gaspar MD ([id number]) - Internal Medicine [facility] 08-30-2022 Evaluation note* Encounter Date Diagnosis Assessment Notes Treatment Notes Treatment Clinical Notes Jan, Bronchitis (ICD-10 - J40) nebulizer and xray today [facility] Other 08-30-2022 Evaluation note* Encounter Date Diagnosis Assessment Notes Treatment Notes Treatment Clinical Notes Jan, Bronchitis (ICD-10 - J40) [facility]. Other 08-30-2022 Miscellaneous Notes* Telephone Encounter - Elida Alvarez RN - 02/28/2022 9:04 AM EDT Refill request for nebulizer and supplies. [facility] 06/19/2019. Will send patient message to schedule appt. Elida Alvarez RN documented in this encounterOhiohealth [facility]ady [facility]08-23-2022 History of Present illness Narrative* Bárbara Chan APRN.[employer] - 02/21/2022 1:09 PM EDT This is an Express Care eVisit note for Damari Rios eVisit/Questionnaire reviewed The chief complaint for the visit - Patient presents with: Sinus Problem Recommendations/Treatment plan - See My Chart Message to patient Bárbara Chan APRN.CNP Total time spent on e-Visit: 3 minutes documented in this encounterOhiohealth Grady [facility]03-30-2022 Miscellaneous Notes* Telephone Encounter - Bárbara Escudero RN - 09/28/2021 9:37 PM EDT Reason for call: Patient calling with pressure and fullness in vaginal area, stating that if feels heavy. Patient unable to void full stream since yesterday. States that she has only been able to void a few drops; patient states if she urinated in a specimen cup, it would only fill the bottom of the cup. reports extreme pressure in lower abdominal/vaginal area. Outcome: Recommendation for ED now. Patient verbally understands and agrees with recommendations. Patient will go to ED now. Reason for Disposition [1] Unable to urinate (or only a few drops) > 4 hours AND [2] bladder feels very full (e.g., palpable bladder or strong urge to urinate) Protocols used: URINARY [id number] documented in this encounterOhiohealth [facility]03-28-2022 History of Present illness Narrative* Marin Gutierrez MD - 09/26/2021 1:30 PM EDT UROLOGY CLINIC 09/26/2021 CHIEF COMPLAINT: kidney stones HPI: Damari Rios is a 45 year old female. Today She reports right flank pain. She denies any dysuria, hematuria, urinary leakage, urinary incontinence, abnormal urinary stream, nocturia, usage of pads, hesitancy, urgency, or modifying urologic factors. ROS: Denies any fevers, chills, nausea, vomiting, chest pain, cough, shortness of breath, easy bruising or bleeding, weight loss, night sweats, malaise, new bone pain, hematochezia, melena, diarrhea, polydipsia, neurological symptoms, focal weakness, new visual problems, dysphagia, or rashes. Remainder of ROS is reviewed and negative, except as noted in the HPI. HISTORY: PAST MEDICAL HISTORY Diagnosis Date Bipolar I disorder, most recent episode (or current) unspecified Calculus of bile duct without mention of cholecystitis, with obstruction Irritable bowel syndrome Kidney stone Known health problems: none 04/04/2021 Other and unspecified ovarian cyst Other cholecystitis Seasonal allergies Temporomandibular joint disorders, unspecified Unspecified asthma(493.90) PAST SURGICAL HISTORY Procedure Laterality Date COLONOSCOP W/ OR W/O BRSH SPEC 04/03/12 pt discomfort, normal to transverse colon - ordered BE EGD W/O BRSH SPECIMEN W/BX 04/03/12 mild gastritis HYSTERECTOMY HX 2017 LAPAROSCOPIC CHOLEYCYSTECTOMY 2000 Cholecystectomy, lap LIGATE FALLOPIAN TUBE 1998 NONE 04/04/2021 PAST SURGICAL HISTORY OF 2016 ureteral stent placed REMOVAL ADENOIDS,PRIMARY,<12 Y/O 2000 Adenoidectomy REMOVAL OF TONSILS,<12 Y/O 2000 Tonsillectomy FAMILY HISTORY Problem Relation Age of Onset Hypertension Mother Breast Cancer Paternal Grandmother lung GI Paternal Grandfather Diabetes Maternal Grandmother from lung ca Diabetes Maternal Grandfather from unk cause Colon Cancer Maternal Uncle age 43 other (POTS) Sister other (Lupus) Other niece other (lupus) Other Anesthesia Problems No Family History Colon Polyps No Family History Social History Tobacco Use Smoking status: Never Smoker Smokeless tobacco: Never Used Vaping Use Vaping Use: Never used Substance Use Topics Alcohol use: Yes Comment: very rare- maybe 2x/ year Drug use: No ALLERGIES Allergen Reactions Penicillins Anaphylaxis Bactrim [Sulfametho* Codeine Rash Ultram [Tramadol Hc* Intolerance MEDICATIONS: Current Outpatient Medications Medication Sig Dispense Refill predniSONE (DELTASONE) 10 mg tablet 4 tabs for 4 days, 3 tabs for 3 days, 2 tabs for 2 days, 1 tab for 2 days (Patient not taking: Reported on 04/04/2021 ) 31 tablet 0 Nebulizer and Compressor For Neb Dispense one nebulizer with lifetime supplies 1 Each 0 ondansetron (ZOFRAN) 4 mg tablet Take 1 tablet by mouth every 8 hours as needed. 10 tablet 0 EPINEPHrine (EPIPEN) 0.3 mg/0.3 mL auto-injector Use as directed for bee sting 2 Each 1 tamsulosin ER (FLOMAX) 0.4 mg cap Take 1 capsule by mouth once daily. 30 minutes after the same meal each day. 30 capsule 0 Nebulizers Lifetime supplies 1 Each 0 mometasone-formoterol (DULERA) 200-5 mcg/actuation inhaler Inhale 2 Puffs as instructed twice daily. (Patient not taking: Reported on 04/04/2021 ) 1 Inhaler 5 albuterol (PROVENTIL) 2.5 mg /3 mL (0.083 %) nebulizer solution Use 3 mL via nebulizer every 6 hours as needed for Wheezing/Shortness of Breath. Inhale over 5-15 minutes 100 Vial 5 albuterol HFA (PROAIR HFA) 90 mcg/actuation inhaler 2 Puffs every 6 hours as needed for Wheezing/Shortness of Breath. Take as directed 3 Inhaler 0 loratadine (CLARITIN) 10 mg tablet Take 1 tablet by mouth once daily. (Patient not taking: Reportedon 06/19/2019 ) 30 tablet 5 No current facility-administered medications for this visit. PHYSICAL EXAM: GENERAL: Well developed, well nourished, healthy appearing and in no acute distress. HEENT: PERRLA. EOMI. MMM. RESP: NL effort, no retractions or purse-lip breathing. CV: No extremity swelling, varices, edema, pallor, erythema ABDOMEN: Soft, nontender, nondistended, no masses. Normal bowel sounds. HERNIAS: None SKIN/LYMPH: No rash, lesions. No axillary or femoral lymphadenopathy. NEURO: Alert and oriented x3. Normal Speech. PSYCH: No signs of depression, anxiety, or agitation. EXTREMITIES: Extremities normal. No deformities, edema, clubbing or skin discoloration. FROM. LABS: UA: large blood, 100 protein No results found for: PSA, PSAPER Creatinine (mg/dL) Date Value 08/06/2019 1.11 08/05/2019 1.05 06/19/2019 0.87 03/17/2015 0.64 10/14/2013 0.80 IMAGING: US Kidney/Bladder 03/04/2021 IMPRESSION: Small nonobstructing right renal calculi. No hydronephrosis. ASSESSMENT AND PLAN: This is a 45 year old female who presents to the office today for the above complaints. Pt presents with right flank pain. UA shows large blood, [address] Stone and stone workup ordered. Follow up will call or sooner if she develops any concerning or worsening symptoms. All questions were answered satisfactorily for the patient. ATTESTATION: By signing my name below, I, Analilia Arias Contractor, attest that this documentation has been prepared under the direction and in the presence of Marin Gutierrez MD. Electronically Signed:Analilia Camachoorwyatt, September 26, 2021 12:49 PM Provider Attestation: I, Dr. Marin Gutierrez MD, personally performed the services described in this documentation. All medical record entries made by the scribe were at my direction and in my presence. I have reviewed thechart and discharge instructions (if applicable) and agree that the record reflects my personal perf ormance and is accurate and complete. Dr. Marin Gutierrez MD. September 26, 2021 1:50 PM documented in this encounterOhio[facility]09-03-2021 History of Present illness Narrative* Demetrice Ignacio Tech - 03/04/2021 10:30 AM EDT Radiology Service Progress Note PATIENT NAME: Damari RIOS DATE OF SERVICE: March 04, 2021 TIME: 2:13 PM PATIENT IDENTITY VERIFICATION COMPLETED USING TWO (2) IDENTIFIERS: Name and Date of confirmedby patient verbally. FALL SCREENING: Has the patient had 2 falls in the last year or 1 fall with injury or currently using an Ambulatory Assistive Device (Walker, Cane, Wheelchair, Crutches, etc.)? No PATIENT GENDER DATA: Female. status: : No status: NO. PATIENT RELEVANT IMPLANT DATA REVIEWED: Not Applicable RADIOLOGY DEPARTMENT: Ultrasound KIDNEY PERIPHERAL IV DATA: Not applicable SIGNED BY: Zoey Ken March 04, 2021 2:13 PM documented in this encounterOhiohealth [facility]05-02-2021 History of Present illness Narrative* 45 yo WF w/ h/o HTN, asthma, GERD now here for cardiology consult. Over the past couple of months, she is having occ mid CP x minutes at rest/exertion, occ radiation to RUE, occ assoc dyspnea/diaph, no change with touch/position/food. +ch GARCÍA (mild-mod exertion), improved w/ MDI. +occ palps at rest/exertion x few minutes; HR once 180s on POx during episode. * No LH/dizziness/syncope. No edema. No claudication. +ch cough. * ECG 11/19: SR (79), [facility] [place] Work Phone: 1(202) 932-690605-02-2021 History of Present illness Narrative* 45 yo WF w/ h/o HTN, asthma, GERD now here for cardiology consult. Over the past couple of months, she is having occ mid CP x minutes at rest/exertion, occ radiation to RUE, occ assoc dyspnea/diaph, no change with touch/position/food. +ch GARCÍA (mild-mod exertion), improved w/ MDI. +occ palps at rest/exertion x few minutes; HR once 180s on POx during episode. * No LH/dizziness/syncope. No edema. No claudication. +ch cough. * ECG 11/19: SR (79), [facility] [place] Work Phone: 1(728) 338-489604-09-2021 History of Present illness Narrative* Stanley Katz Tech - 10/08/2020 2:10 PM EDT Radiology Service Progress Note PATIENT NAME: Damari RIOS DATE OF SERVICE: October 08, 2020 TIME: 2:13 PM PATIENT IDENTITY VERIFICATION COMPLETED USING TWO (2) IDENTIFIERS: Name and Date of confirmedby patient verbally. FALL SCREENING: Has the patient had 2 falls in the last year or 1 fall with injury or currently using an Ambulatory Assistive Device (Walker, Cane, Wheelchair, Crutches, etc.)? No PATIENT GENDER DATA: Female. status: : No status: NO. PATIENT RELEVANT IMPLANT DATA REVIEWED: Not Applicable RADIOLOGY DEPARTMENT: General X-ray: Exam(s) Completed: Chest X-Ray PERIPHERAL IV DATA: Not applicable SIGNED BY: RT Jill(R) October 08, 2020 2:13 PM documented in this encounterOhiohealth [facility]04-05-2021 History of Present illness Narrative* 45 yo WF w/ h/o HTN, asthma, GERD now here for cardiology consult. Over the past couple of months, she is having occ mid CP x minutes at rest/exertion, occ radiation to RUE, occ assoc dyspnea/diaph, no change with touch/position/food. +ch GARCÍA (mild-mod exertion), improved w/ MDI. +occ palps at rest/exertion x few minutes; HR once 180s on POx during episode. * No LH/dizziness/syncope. No edema. No claudication. +ch cough. * ECG 11/19: SR (79), normal [facility] [place] Work Phone: [phone]) 671-472703-27-2021 History of Present illness Narrative* 45 yo WF w/ h/o HTN, asthma, GERD now here for cardiology consult. Over the past couple of months, she is having occ mid CP x minutes at rest/exertion, occ radiation to RUE, occ assoc dyspnea/diaph, no change with touch/position/food. +ch GARCÍA (mild-mod exertion), improved w/ MDI. +occ palps at rest/exertion x few minutes; HR once 180s on POx during episode. * No LH/dizziness/syncope. No edema. No claudication. +ch cough. * ECG 11/19: SR (79), normal [id number] Work Phone: 1(861) 566-348809-16-2015 History of Past illness Narrative* Problem Noted Date Resolved Date Community acquired pneumonia 03/17/2015 Bilateral pleural effusion 03/17/201507/24 SOB (shortness of breath) 03/17/20152019 Abdominal pain, unspecified site 04/03/2012 10/14/2013 Bipolar I disorder, most rec ent episode (or current) mixed, mild 03/27/2006 04/16/2008 Anxiety state, unspecified 03/27/200604/16 Panic disorder without agoraphobia 03/27/2006 04/16/2008 documented as of this encounter (statuses as of 09/26/2021) [facility] of Past illness Narrative* Problem Noted Date Resolved Date Community acquired pneumonia 03/17/2015 Bilateral pleural effusion 03/17/201507/24 SOB (shortness of breath) 03/17/20152019 Abdominal pain, unspecified site 04/03/2012 10/14/2013 Bipolar I disorder, most rec ent episode (or current) mixed, mild 03/27/2006 04/16/2008 Anxiety state, unspecified 03/27/200604/16 Panic disorder without agoraphobia 03/27/2006 04/16/2008 documented as of this encounter (statuses as of 09/26/2021) [facility] of Past illness Narrative* Problem Noted Date Resolved Date Community acquired pneumonia 03/17/2015 Bilateral pleural effusion 03/17/201507/24 SOB (shortness of breath) 03/17/20152019 Abdominal pain, unspecified site 04/03/2012 10/14/2013 Bipolar I disorder, most rec ent episode (or current) mixed, mild 03/27/2006 04/16/2008 Anxiety state, unspecified 03/27/200604/16 Panic disorder without agoraphobia 03/27/2006 04/16/2008 documented as of this encounter (statuses as of 09/29/2021) [facility] of [facility] illness Narrative* Problem Noted Date Resolved Date Community acquired pneumonia 03/17/2015 Bilateral pleural effusion 03/17/201507/24 SOB (shortness of breath) 03/17/20152019 Abdominal pain, unspecified site 04/03/2012 10/14/2013 Bipolar I disorder, most rec ent episode (or current) mixed, mild 03/27/2006 04/16/2008 Anxiety state, unspecified 03/27/200604/16 Panic disorder without agoraphobia 03/27/2006 04/16/2008 documented as of this encounter (statuses as of 09/29/2021) [facility] Narrative* Problem Noted Date Resolved Date Community acquired pneumonia 03/17/2015 Bilateral pleural effusion 03/17/201507/24 SOB (shortness of breath) 03/17/20152019 Abdominal pain, unspecified site 04/03/2012 10/14/2013 Bipolar I disorder, most rec ent episode (or current) mixed, mild 03/27/2006 04/16/2008 Anxiety state, unspecified 03/27/200604/16 Panic disorder without agoraphobia 03/27/2006 04/16/2008 documented as of this encounter (statuses as of 09/30/2021) [facility] Narrative* Problem Noted Date Resolved Date Community acquired pneumonia 03/17/2015 Bilateral pleural effusion 03/17/201507/24 SOB (shortness of breath) 03/17/20152019 Abdominal pain, unspecified site 04/03/2012 10/14/2013 Bipolar I disorder, most rec ent episode (or current) mixed, mild 03/27/2006 04/16/2008 Anxiety state, unspecified 03/27/200604/16 Panic disorder without agoraphobia 03/27/2006 04/16/2008 documented as of this encounter (statuses as of 10/07/2021) [facility] Narrative* Problem Noted Date Resolved Date Community acquired pneumonia 03/17/2015 Bilateral pleural effusion 03/17/201507/24 SOB (shortness of breath) 03/17/20152019 Abdominal pain, unspecified site 04/03/2012 10/14/2013 Bipolar I disorder, most rec ent episode (or current) mixed, mild 03/27/2006 04/16/2008 Anxiety state, unspecified 03/27/200604/16 Panic disorder without agoraphobia 03/27/2006 04/16/2008 documented as of this encounter (statuses as of 10/21/2021) [facility] Narrative* Problem Noted Date Resolved Date Community acquired pneumonia 03/17/2015 Bilateral pleural effusion 03/17/201507/24 SOB (shortness of breath) 03/17/20152019 Abdominal pain, unspecified site 04/03/2012 10/14/2013 Bipolar I disorder, most rec ent episode (or current) mixed, mild 03/27/2006 04/16/2008 Anxiety state, unspecified 03/27/200604/16 Panic disorder without agoraphobia 03/27/2006 04/16/2008 documented as of this encounter (statuses as of 02/21/2022) [facility] Narrative* Problem Noted Date Resolved Date Community acquired pneumonia 03/17/2015 Bilateral pleural effusion 03/17/201507/24 SOB (shortness of breath) 03/17/20152019 Abdominal pain, unspecified site 04/03/2012 10/14/2013 Bipolar I disorder, most rec ent episode (or current) mixed, mild 03/27/2006 04/16/2008 Anxiety state, unspecified 03/27/200604/16 Panic disorder without agoraphobia 03/27/2006 04/16/2008 documented as of this encounter (statuses as of 02/28/2022) [facility] Narrative* Problem Noted Date Resolved Date Community acquired pneumonia 03/17/2015 Bilateral pleural effusion 03/17/201507/24 SOB (shortness of breath) 03/17/20152019 Abdominal pain, unspecified site 04/03/2012 10/14/2013 Bipolar I disorder, most rec ent episode (or current) mixed, mild 03/27/2006 04/16/2008 Anxiety state, unspecified 03/27/200604/16 Panic disorder without agoraphobia 03/27/2006 04/16/2008 documented as of this encounter (statuses as of 02/28/2022) [facility] Narrative* Problem Noted Date Resolved Date Community acquired pneumonia 03/17/2015 Bilateral pleural effusion 03/17/201507/24 SOB (shortness of breath) 03/17/20152019 Abdominal pain, unspecified site 04/03/2012 10/14/2013 Bipolar I disorder, most rec ent episode (or current) mixed, mild 03/27/2006 04/16/2008 Anxiety state, unspecified 03/27/200604/16 Panic disorder without agoraphobia 03/27/2006 04/16/2008 documented as of this encounter (statuses as of 04/25/2022) [facility] History of Past illness Narrative* Problem Noted Date Resolved Date Community acquired pneumonia 03/17/2015 Bilateral pleural effusion 03/17/201507/24 SOB (shortness of breath) 03/17/20152019 Abdominal pain, unspecified site 04/03/2012 10/14/2013 Bipolar I disorder, most rec ent episode (or current) mixed, mild 03/27/2006 04/16/2008 Anxiety state, unspecified 03/27/200604/16 Panic disorder without agoraphobia 03/27/2006 04/16/2008 documented as of this encounter (statuses as of 05/02/2022) [facility] History of Past illness Narrative* Problem Noted Date Diagnosed Date Resolved Date Community acquired pneumonia 03/17/2015 07/24/2019 Bilateral pleural effusion 03/17/2015 0 07/24/2019 SOB (shortness of breath) 03/17/2015 Abdominal pain, unspecified site 04/03/2012 10/14/2013 Bipolar I disorder, most rec ent episode (or current) mixed, mild 03/27/2006 04/16/2008 Anxiety state, unspecified 03/27/2006 1 Panic disorder without agoraphobia 03/27/2006 04/16/2008 documented as of this encounter (statuses as of 05/06/2023) [facility] History of Past illness Narrative* Problem Noted Date Diagnosed Date Resolved Date Community acquired pneumonia 03/17/2015 07/24/2019 Bilateral pleural effusion 03/17/2015 0 07/24/2019 Abdominal pain, unspecified site 04/03/2012 10/14/2013 Bipolar I disorder, most rec ent episode (or current) mixed, mild 03/27/2006 04/16/2008 Anxiety state, unspecified 03/27/2006 1 Panic disorder without agoraphobia 03/27/2006 04/16/2008 documented as of this encounter (statuses as of 06/06/2023) [facility] History of Past illness Narrative* Problem Noted Date Diagnosed Date Resolved Date Community acquired pneumonia 03/17/2015 07/24/2019 Bilateral pleural effusion 03/17/2015 0 07/24/2019 Abdominal pain, unspecified site 04/03/2012 10/14/2013 Bipolar I disorder, most rec ent episode (or current) mixed, mild 03/27/2006 04/16/2008 Anxiety state, unspecified 03/27/2006 1 Panic disorder without agoraphobia 03/27/2006 04/16/2008 documented as of this encounter (statuses as of 08/21/2023) [facility] History of Past illness Narrative* Problem Noted Date Diagnosed Date Resolved Date Community acquired pneumonia 03/17/2015 07/24/2019 Bilateral pleural effusion 03/17/2015 0 07/24/2019 Abdominal pain, unspecified site 04/03/2012 10/14/2013 Bipolar I disorder, most rec ent episode (or current) mixed, mild 03/27/2006 04/16/2008 Anxiety state, unspecified 03/27/2006 1 Panic disorder without agoraphobia 03/27/2006 04/16/2008 documented as of this encounter (statuses as of 09/22/2023) [facility] History of Past illness Narrative* Problem Noted Date Diagnosed Date Resolved Date Community acquired pneumonia 03/17/2015 07/24/2019 Bilateral pleural effusion 03/17/2015 0 07/24/2019 Abdominal pain, unspecified site 04/03/2012 10/14/2013 Bipolar I disorder, most rec ent episode (or current) mixed, mild 03/27/2006 04/16/2008 Anxiety state, unspecified 03/27/2006 1 Panic disorder without agoraphobia 03/27/2006 04/16/2008 documented as of this encounter (statuses as of 09/22/2023) [facility] History of Past illness Narrative* Problem Noted Date Diagnosed Date Resolved Date Community acquired pneumonia 03/17/2015 07/24/2019 Bilateral pleural effusion 03/17/2015 0 07/24/2019 Abdominal pain, unspecified site 04/03/2012 10/14/2013 Bipolar I disorder, most rec ent episode (or current) mixed, mild 03/27/2006 04/16/2008 Anxiety state, unspecified 03/27/2006 1 Panic disorder without agoraphobia 03/27/2006 04/16/2008 documented as of this encounter (statuses as of 09/24/2023) [facility] History of Past illness Narrative* Problem Noted Date Diagnosed Date Resolved Date Community acquired pneumonia 03/17/2015 07/24/2019 Bilateral pleural effusion 03/17/2015 0 07/24/2019 Abdominal pain, unspecified site 04/03/2012 10/14/2013 Bipolar I disorder, most rec ent episode (or current) mixed, mild 03/27/2006 04/16/2008 Anxiety state, unspecified 03/27/2006 1 Panic disorder without agoraphobia 03/27/2006 04/16/2008 documented as of this encounter (statuses as of 10/09/2023) [facility] complaint Narrative - ReportedDAMARI RIOS is being seen for a cardiovascular evaluation of palpitations.[facility] Work Phone: [place] complaint Narrative - ReportedDAMARI RIOS is being seen for a cardiovascular evaluation of palpitations.[facility] Work [facility]: [place] complaint Narrative - ReportedDAMARI RIOS is being seen for a cardiovascular evaluation of palpitations.[facility] Work Phone: Evaluation + Plan note [facility] Evaluation note* Diagnosis Kidney stones- Primary Calculus of kidney [facility] Diagnosis Screening for genitourinary condition Screening for other and unspecified genitourinary condition documented in this encounter [facility] note* Diagnosis Renal calculi Calculus of kidney [facility]* Diagnosis Treatment not available- Primary Procedure not carried out for other reasons documented [facility]* Diagnosis Mild intermittent asthma, unspecified whether complicated documented in this encounter [facility] note* Diagnosis Mild intermittent asthma, unspecified whether complicated [facility]No [facility] Other Evaluation note* Diagnosis Cubital tunnel syndrome on left- Primary Lesion of ulnar nerve Laceration of left forearm, sequela [facility]* Diagnosis NO SHOW- Primary documented in this encounter [facility] note* Psychological: Cooperative.Extremities: No pitting edema bilat ankles.Gastrointestinal: Soft. Mild,diffuse abdominal tenderness with no guarding. Bowel sounds present.Cardiovascular: RRR.Respiratory/Thorax: CTAB.Eyes: Clear sclera.Constitutional: Patient is alert. NAD. [facility]* Diagnosis Breast cancer screening by mammogram- Primary Encounter for annual physical exam Colon cancer screening Special screening for malignant neoplasms, colon Arthritis Unspecified arthropathy, site unspecified Moderate asthma without complication, unspecified whether persistent documented in this encounter [facility] Work Phone: Evaluation note* Diagnosis Colon cancer screening- Primary Special screening for malignant neoplasms, colon Esophageal dysphagia Dysphagia, pharyngoesophageal phase documented in this encounter [facility] Work Phone: Evaluation note* Diagnosis Colon cancer screening- Primary Special screening for malignant neoplasms, colon Esophageal dysphagia Dysphagia, pharyngoesophageal phase documented in this encounter [facility] Work Phone: Evaluation note* Diagnosis Renal calculus, right Calculus of kidney [facility]* Diagnosis Esophageal dysphagia Dysphagia, pharyngoesophageal phase Colon cancer screening Special screening for malignant neoplasms, colon documented in this encounter [facility] Work Phone: Evaluation note* Diagnosis Adnexal mass- Primary Other specified symptom associated with female genital organs Kidney stone- Primary Calculus of kidney Abdominal pain, unspecified abdominal location Adnexal mass Other specified symptom associated with female genital organs documented in this encounter [facility] Work Phone: Evaluation note* Diagnosis Adnexal mass- Primary Other specified symptom associated with female genital organs Urinary incontinence in female- Primary Adnexal mass Other specified symptom associated with female genital organs documented in this encounter [facility] Work Phone: Evaluation note* Diagnosis History of pulmonary embolism- Primary Personal history of pulmonary embolism documented [facility]* Diagnosis Postop check- Primary Follow-up examination, following unspecified surgery documented in this encounter [facility] Work Phone: Evaluation note* Diagnosis Adnexal mass- Primary Other specified symptom associated with female genital organs Adnexal mass Other specified symptom associated with female genital organs Myofascial pain Unspecified myalgia and myositis documented in this encounter [facility] Work Phone: Evaluation note* Diagnosis Other acute pulmonary embolism without acute cor pulmonale (CMS/HCC)- Primary Need for pneumococcal vaccine Need for prophylactic vaccination against streptococcus pneumoniae (pneumococcus) documented in this encounter [facility] Work Phone: Evaluation note* Diagnosis Heart palpitations- Primary Palpitations Essential hypertension Unspecified essential hypertension documented in this encounter [facility] Work Phone: Evaluation note* Diagnosis Heart palpitations Palpitations documented in this encounter [facility] Work Phone: Evaluation note* Diagnosis Injury of finger of right hand, initial encounter- Primary [facility] Diagnosis URI, acute- Primary Acute upper respiratory infections of unspecified site Sore throat Acute pharyngitis [facility]* Diagnosis Acute bilateral low back pain with right-sided sciatica- Primary [facility] Diagnosis Preop examination- Primary Preoperative examination, unspecified Kidney stone Calculus of kidney Uncomplicated asthma, unspecified asthma severity, unspecified whether persistent Cough Preoperative examination- Primary Preoperative examination, unspecified Renal calculus, right Calculus of kidney Uncomplicated asthma, unspecified asthma severity, unspecified whether persistent Anxiety Anxiety state, unspecified Injury of finger of right hand, initial encounter [facility] Diagnosis Preop examination- Primary Preoperative examination, unspecified Kidney stone Calculus of kidney Uncomplicated asthma, unspecified asthma severity, unspecified whether persistent Cough Preoperative examination- Primary Preoperative examination, unspecified Renal calculus, right Calculus of kidney Uncomplicated asthma, unspecified asthma severity, unspecified whether persistent Anxiety Anxiety state, unspecified Cough documented in this encounter [facility] general Narrative - Reported* Type Description Date Medical History anxiety Medical History Low back pain Medical History Right shoulder dislocation. Medical History ASTHMA Surgical History GALLBLADDER REMOVAL Surgical History BTL Surgical History T&A Surgical History STENT FOR KIDNEY STONES- SINCE REMOVED Surgical History RIGHT OVARIAN CYST REMOVED 2014 Surgical History TV 03/01/17 Hospitalization History PNEUMONIA 2014 [facility]. Other History of Present illness Narrative* This is a pleasant 45-year-old female who presents to the pain clinic at [facility], with history of chronic upper mid and lower back pain. She also complains of pain in her right lower extremity and right shoulder. * Patient has been self-referred to me. She has been a patient of Dr. Jose C Murguia MD. * Patient states that she has been treated for fibromyalgia by Dr. Murguia who has been giving her oxycodone 4 tablets/day. * Patient had physical therapy 2-1/2 years ago. She had back injections by a physician in [place] in 2014. She had total of 2 back injections with only temporary relief. Patient has never been referred to a spine surgeon. * Patient states that she had imaging studies done including CAT scan however I do not have access toany of those. * Patient's past medical history significant for hypertension, arrhythmia, history of chest pain, palpitation, dyspnea on exertion, fibromyalgia and obesity. * Patient rates her pain as 7 on a visual analog scale of 0-10. She describes the pain is shooting, aching and stabbing in character. * Aggravating factors include walking, sitting, standing, bending and twisting. * Alleviating factors include elevation of ice, sitting down and laying down. * Patient also complains of weakness in her arms and legs with persistent numbness. 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 Her pain affects her activities of daily living and her work. She however rates quality of her social life is average with current treatment. [facility] [facility] Work Phone: Hospital course Located within [facility] Discharge instructions* Activity:activity as tolerated. * Follow Up Appointment 1:Physician/Dept/Service: Dr. Cleaning for Referral: Nephrolithasis and right ovarian cystic lesionPhone Number: * Follow Up Appointment 2:Physician/Dept/Service: Ebony for Referral: Hospital follow up * Follow Up Appointment 3:Physician/Dept/Service: Dr. BaiPhone Number: * Gold Form - Other Clinicians:Nursing Instructions: SIGNS AND SYMPTOMSPainful or burning urinationFrequency or urgencyIncreased side or back painFever/chillsWeaknessConfusionOther Clinician Instructions: RESPONSIBILITIES FOR HEALTH MANAGEMENTTake medications as directed and DO NOT stop any without talking to your doctor firstAttend follow up appointmentsDrink plenty of fluidsTake complete course of antibioticsIncorporate rest periods with activity [facility] (narrative)* Outpatient Procedure (Routine) - Authorized Specialty Diagnoses / Procedures Referred By Shaye vieyra Referred To Contact [facility] Diagnoses Cubital tunnel syndrome on left Procedures EMG(NEURO/NI) NERVE CONDUCTION STUDIES 9-10 STUDIES Aristeo Maldonado PA-C [address] [place] [address] Neu[facility] [place] [address] [place] [address] Referral ID Status Reason Start Date Expiration Date Visits Requested Visits Authorized [id number] Authorized Auto-Generat ed Referral 07/01/2022 1 1 [facility] for referral (narrative)* Diagnostic Procedure Only (Urgent) - Closed Specialty Diagnoses / Procedures Referred By Shaye vieyra Referred To Contact XR IMAGING Diagnoses Injury of finger of right hand, initial encounter Procedures XR DIGIT GENERAL 3V FRONTAL/LAT/OBL RIGHT RADEX FINGR MINIMUM 2 VIEWS Justyn Maldonado APRN.[facility] [address] [place] [address] [place] [address] Referral ID Status Reason Start Date Expiration Date V isits Requested Visits Authorized [id number] Closed Auto-Generate d Referral 09/22/2023 10/21/2024 1 1 [facility] for referral (narrative)* Diagnostic Procedure Only (Urgent) - Closed Specialty Diagnoses / Procedures Referred By Shaye vieyra Referred To Contact XR IMAGING Diagnoses Injury of finger of right hand, initial encounter Procedures XR DIGIT GENERAL 3V FRONTAL/LAT/OBL RIGHT RADEX FINGR MINIMUM 2 VIEWS Justyn Maldonado APRN.CNP [address] [place] [address] [place] [address] Referral ID Status Reason Start Date Expiration Date V isits Requested Visits Authorized [id number] Closed Auto-Generate d Referral 09/22/2023 10/21/2024 1 1 [facility] for visit Narrative* Diagnostic Procedure Only (Urgent) - Closed Specialty Diagnoses / Procedures Referred By Contdavid t Referred To Contact XR IMAGING Diagnoses Injury of finger of right hand, initial encounter Procedures XR DIGIT GENERAL 3V FRONTAL/LAT/OBL RIGHT RADEX FINGR MINIMUM 2 VIEWS Justyn Maldonado APRN.[facility] [address] [place] [address] [place] [address] Referral ID Status Reason Start Date Expiration Date V isits Requested Visits Authorized [id number] Closed Auto-Generate d Referral 09/22/2023 10/21/2024 1 1 [facility] Family History Unknown Family Member Name Dates Details Family history of cardiac di sorder: Father, Sister, Grandparent(V17.49, Z82.49) Comments:grandma [address]; Status:Active Family history of hypertensi on: Father, Sister, Grandparent(V17.49, Z82.49) Status:Active Unknown Family Member Name Dates Details Family history of hypertensi on: Father, Sister, Grandparent(V17.49, Z82.49) Status:Active Family history of cardiac di sorder: Father, Sister, Grandparent(V17.49, Z82.49) Comments:grandma 52dad [address] 40; Status:Active Unknown Family Member Name Dates Details Family history of cardiac di sorder: Father, Sister, Grandparent(V17.49, Z82.49) Comments:grandma 52dad [address] 40; Status:Active Family history of hypertensi on: Father, Sister, Grandparent(V17.49, Z82.49) Status:Active Unknown Family Member Name Dates Details Family history of cardiac di sorder: Father, Sister, Grandparent(V17.49, Z82.49) Comments:grandma 52dad [address] 40; Status:Active Family history of hypertensi on: Father, Sister, Grandparent(V17.49, Z82.49) Status:Active Unknown Family Member Name Dates Details Family history of cardiac di sorder: Father, Sister, Grandparent(V17.49, Z82.49) Comments:grandma 52dad [address] 40; Status:Active Family history of hypertensi on: Father, Sister, Grandparent(V17.49, Z82.49) Status:Active Unknown Family Member Name Dates Details Family history of cardiac di sorder: Father, Sister, Grandparent(V17.49, Z82.49) Comments:grandma 52dad [address] 40; Status:Active Family history of hypertensi on: Father, Sister, Grandparent(V17.49, Z82.49) Status:Active Unknown Family Member Name Dates Details Family history of cardiac di sorder: Father, Sister, Grandparent(V17.49, Z82.49) Comments:grandma 52dad [address] 40; Status:Active Family history of hypertensi on: Father, Sister, Grandparent(V17.49, Z82.49) Status:Active Unknown Family Member Name Dates Details Family history of cardiac di sorder: Father, Sister, Grandparent(V17.49, Z82.49) Comments:grandma 52dad [address] 40; Status:Active Family history of hypertensi on: Father, Sister, Grandparent(V17.49, Z82.49) Status:Active Unknown Family Member Name Dates Details Family history of cardiac di sorder: Father, Sister, Grandparent(V17.49, Z82.49) Comments:grandma 52dad [address] 40; Status:Active Family history of hypertensi on: Father, Sister, Grandparent(V17.49, Z82.49) Status:Active Unknown Family Member Name Dates Details Family history of cardiac di sorder: Father, Sister, Grandparent(V17.49, Z82.49) Comments:grandma 52dad [address] 40; Status:Active Family history of hypertensi on: Father, Sister, Grandparent(V17.49, Z82.49) Status:Active Advance Directives Documents on File Type Date Recorded 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 Advance Directive(s) 06/19/2019 2:32 PM Date Activated Date Inactivated Comments 08/14/2023 11:00 PM 08/16/2023 11:26 AM Question Answer Comments Full Code Order Discussed With: Patient Documents on File Type Date Recorded 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 Advance Directive(s) 04/06/2021 9:37 AM Advance Directive(s) 07/04/2019 3:48 PM Advance Directive(s) 07/01/2019 10:34 AM Advance Directive(s) 06/19/2019 2:32 PM Documents on File Type Date Recorded 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 Advance Directive(s) 04/06/2021 9:37 AM Advance Directive(s) 07/04/2019 3:48 PM Advance Directive(s) 07/01/2019 10:34 AM Advance Directive(s) 06/19/2019 2:32 PM Documents on File Type Date Recorded 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 Advance Directive(s) 06/19/2019 2:32 PM Latest Code Status on File Code Status Date Activated Date Inactivated Comments Full Code 05/28/2023 10:29 AM Question Answer Comments Plan of Care: Code Status Discussion Completed Decision Maker: Patient Latest Code Status on File Code Status Date Activated Date Inactivated Comments Full Code 05/28/2023 10:29 AM Question Answer Comments Plan of Care: Code Status Discussion Completed Decision Maker: Patient Latest Code Status on File Code Status Date Activated Date Inactivated Comments Full Code 08/14/2023 11:00 PM 08/16/2023 11:26 AM Question Answer Comments Full Code Order Discussed With: Patient Latest Code Status on File Code Status Date Activated Date Inactivated Comments Full Code 05/28/2023 10:29 AM Question Answer Comments Plan of Care: Code Status Discussion Completed Decision Maker: Patient Date Activated Date Inactivated Comments 08/14/2023 11:00 PM 08/16/2023 11:26 AM Question Answer Comments Full Code Order Discussed With: Patient Reason for Referral Specialty Diagnoses / Procedures Referred By Contac t Referred To Contact CT IMAGING Diagnoses Kidney stones Procedures CT FLANK WO IVCON CT ABD & PELVIS W/O CONTRAST Marin Gutierrez MD [address] [address] [address] Imaging Referral ID Status Reason Start Date Expiration Date Visits Requested Visits Authorized [id number] Authorized Auto-Generat ed Referral 09/26/2021 11/25/2021 1 1 Reason EVAL AND TREAT // ul ed nerve injury? R1 03/21/22 Diagnosis 1 Laceration of forear m, left (S51.812A) Referral Organization [facility] Referring Provider First Name AIDAN Referring Provider Last Name ALYSSA Referring Provider Specialty Family Prac jamie Referred Provider Fazal Raphael ( [facility]) Referred Provider Specialty Orthopedic S urgery Referral Priority Routine General Notes Ludy Bishop 03/03 09:39:13 AM >REFERRAL AND NOTES SENT, PATIENT TO SCHEDULE APPOINTMENT. PLEASE BE AWARE WE HAVE INSTRUCTED THE PATIENT TO VERIFY YOU ARE IN NETWORK WITH THEIR INSURANCE AND THAT A REFERRAL HAS BEEN APPROVED BY THEIR INSURANCE COMPANY. Specialty Diagnoses / Procedures Referred By Shaye t Referred To Contact Gastroenterology Diagnoses Colon cancer screening Procedures Colonoscopy Screening MI COLONOSCOPY FLX DX W/COLLJ SPEC WHEN PFRMD MI COLON CA SCRN NOT HI RSK IND MI COLORECTAL SCRN; HI RISK IND MI COLONOSCOPY W/BIOPSY SINGLE/MULTIPLE MI COLSC FLX W/RMVL OF TUMOR POLYP LESION SNARE TQ MI COLSC FLX W/REMOVAL LESION BY HOT BX FORCEPS Blayne Peguero MD [address] [address] Referral ID Status Reason Start Date Expiration Date V isits Requested Visits Authorized [id number] Pending Review 03/20/2023 09/16/2023 1 1 Specialty Diagnoses / Procedures Referred By Shaye t Referred To Contact Radiology Diagnoses Breast cancer screening by mammogram Procedures BI mammo bilateral screening tomos[place] [address] [address] Referral ID Status Reason Start Date Expiration Date Visits Requested Visits Authorized [id number] Authorized Perform Procedure 03/20/2023 09/16/2023 1 1 Specialty Diagnoses / Procedures Referred By Parulac t Referred To Contact Gastroenterology Diagnoses Esophageal dysphagia Colon cancer screening Procedures Colonoscopy Screening MI COLONOSCOPY FLX DX W/COLLJ SPEC WHEN PFRMD MI COLON CA SCRN NOT HI RSK IND MI COLORECTAL SCRN; HI RISK IND MI COLONOSCOPY W/BIOPSY SINGLE/MULTIPLE MI COLSC FLX W/RMVL OF TUMOR POLYP LESION SNARE TQ MI COLSC FLX W/REMOVAL L[place]ION [place] [address] [place] [address] Referral ID Status Reason Start Date Expiration Date V isits Requested Visits Authorized [id number] Pending Review 04/05/2023 10/02/2023 1 1 Specialty Diagnoses / Procedures Referred By Contact Referred To Contact Gastroenterology Diagnoses Esophageal dysphagia Colon cancer screening Procedures EGD MI ESOPHAGOGASTRODUODENOSCOPY TRANSORAL DIAGNOSTIC MI EGD TRANSORAL BIOPSY SINGLE/[place] [address] [place] [address] Referral ID Status Reason Start Date Expiration Date V isits Requested Visits Authorized [id number] Pending Review 04/05/2023 10/02/2023 1 1 Referral ID Status Reason Start Date Expiration Date V isits Requested Visits Authorized [id number] Authorized 04/05/2023 10/02/2023 1 1 Referral ID Status Reason Start Date Expiration Date V isits Requested Visits Authorized [id number] Authorized 04/05/2023 10/02/2023 1 1 Specialty Diagnoses / Procedures Referred By Contac t Referred To Contact Cardiology Diagnoses Heart palpitations Procedures Holter Or Event Tube Drawer Lul Chin, ETL PROGRAMMER-LIBRARIAN SPECIAL LIBRARY [address] [facility] [place] [address] Referral ID Status Reason Start Date Expiration Date V isits Requested Visits Authorized [id number] Pending Review 08/06/2023 08/05/2024 1 1 Referral ID Status Reason Start Date Expiration Date V isits Requested Visits Authorized [id number] Authorized 08/06/2023 08/05/2024 1 1 Chief Complaint * NEW PATIENT - / YOAV BUCKLEY. * PAIN IS LOCATED IN THE UPPER, MIDDLE AND LOWER BACK AND GOES DOWN THE RIGHT LEG. * PATIENT HAS BEEN DEALING WITH THE PAIN FOR ABOUT 5/10 TODAY. * PAIN LEVEL IS AT A 7/10 TODAY. PATIENT REPORTS A SUDDEN DROP IN HEARING IN HER RIGHT EAR 6 OR 7 MONTHS AGO. COULDN'T HEAR ANYTHING . REPORTS PCP PUT ON ANTIBIOTIC TREATMENT; CONTINUES TO FEEL MUFFLED RIGHT EAR. LEFT EAR HEARINGWELL. NO DIZZINESS; RINGING; IMBALANCE. Summary Purpose Additional Source Comments Source Comments (unrecognize d section and content) In the event this informatio n is protected by the Federal Confidentiality of Alcohol and Drug Abuse Patient Records regulations: The Federal rules restrict any use of the information to criminally investigate or prosecute any alcohol or drug abuse patient.[facility] HospitalIn the event this information is protected by the Federal Confidentiality of Alcohol and Drug Abuse Patient Records regulations: The Federal rules restrict any use of the information to criminally investigate or prosecute any alcohol or drug abuse patient.[facility] HospitalIn the event this information is protected by the Federal Confidentiality of Alcohol and Drug Abuse Patient Records regulations: The Federal rules restrict any use of the information to criminally investigate or prosecute any alcohol or drug abuse patient.[facility] HospitalIn the event this information is protected by the Federal Confidentiality of Alcohol and Drug Abuse Patient Records regulations: The Federal rules restrict any use of the information to criminally investigate or prosecute any alcohol or drug abuse patient.[facility] HospitalIn the event this information is protected by the Federal Confidentiality of Alcohol and Drug Abuse Patient Records regulations: The Federal rules restrict any use of the information to criminally investigate or prosecute any alcohol or drug abuse patient.[facility] HospitalIn the event this information is protected by the Federal Confidentiality of Alcohol and Drug Abuse Patient Records regulations: The Federal rules restrict any use of the information to criminally investigate or prosecute any alcohol or drug abuse patient.[facility] HospitalIn the event this information is protected by the Federal Confidentiality of Alcohol and Drug Abuse Patient Records regulations: The Federal rules restrict any use of the information to criminally investigate or prosecute any alcohol or drug abuse patient.[facility] HospitalIn the event this information is protected by the Federal Confidentiality of Alcohol and Drug Abuse Patient Records regulations: The Federal rules restrict any use of the information to criminally investigate or prosecute any alcohol or drug abuse patient.[facility] HospitalIn the event this information is protected by the Federal Confidentiality of Alcohol and Drug Abuse Patient Records regulations: The Federal rules restrict any use of the information to criminally investigate or prosecute any alcohol or drug abuse patient.[facility] HospitalIn the event this information is protected by the Federal Confidentiality of Alcohol and Drug Abuse Patient Records regulations: The Federal rules restrict any use of the information to criminally investigate or prosecute any alcohol or drug abuse patient.[facility] HospitalIn the event this information is protected by the Federal Confidentiality of Alcohol and Drug Abuse Patient Records regulations: The Federal rules restrict any use of the information to criminally investigate or prosecute any alcohol or drug abuse patient.[facility] HospitalIn the event this information is protected by the Federal Confidentiality of Alcohol and Drug Abuse Patient Records regulations: The Federal rules restrict any use of the information to criminally investigate or prosecute any alcohol or drug abuse patient.[facility] HospitalIn the event this information is protected by the Federal Confidentiality of Alcohol and Drug Abuse Patient Records regulations: The Federal rules restrict any use of the information to criminally investigate or prosecute any alcohol or drug abuse patient.[facility] HospitalIn the event this information is protected by the Federal Confidentiality of Alcohol and Drug Abuse Patient Records regulations: The Federal rules restrict any use of the information to criminally investigate or prosecute any alcohol or drug abuse patient.[facility] HospitalIn the event this information is protected by the Federal Confidentiality of Alcohol and Drug Abuse Patient Records regulations: The Federal rules restrict any use of the information to criminally investigate or prosecute any alcohol or drug abuse patient.[facility] HospitalIn the event this information is protected by the Federal Confidentiality of Alcohol and Drug Abuse Patient Records regulations: The Federal rules restrict any use of the information to criminally investigate or prosecute any alcohol or drug abuse patient.[facility] HospitalIn the event this information is protected by the Federal Confidentiality of Alcohol and Drug Abuse Patient Records regulations: The Federal rules restrict any use of the information to criminally investigate or prosecute any alcohol or drug abuse patient.[facility] HospitalIn the event this information is protected by the Federal Confidentiality of Alcohol and Drug Abuse Patient Records regulations: The Federal rules restrict any use of the information to criminally investigate or prosecute any alcohol or drug abuse patient.[facility] HospitalIn the event this information is protected by the Federal Confidentiality of Alcohol and Drug Abuse Patient Records regulations: The Federal rules restrict any use of the information to criminally investigate or prosecute any alcohol or drug abuse patient.[facility] HospitalIn the event this information is protected by the Federal Confidentiality of Alcohol and Drug Abuse Patient Records regulations: The Federal rules restrict any use of the information to criminally investigate or prosecute any alcohol or drug abuse patient.[facility] HospitalIn the event this information is protected by the Federal Confidentiality of Alcohol and Drug Abuse Patient Records regulations: The Federal rules restrict any use of the information to criminally investigate or prosecute any alcohol or drug abuse patient.[facility] HospitalIn the event this information is protected by the Federal Confidentiality of Alcohol and Drug Abuse Patient Records regulations: The Federal rules restrict any use of the information to criminally investigate or prosecute any alcohol or drug abuse patient.[facility] HospitalIn the event this information is protected by the Federal Confidentiality of Alcohol and Drug Abuse Patient Records regulations: The Federal rules restrict any use of the information to criminally investigate or prosecute any alcohol or drug abuse patient.[facility] HospitalIn the event this information is protected by the Federal Confidentiality of Alcohol and Drug Abuse Patient Records regulations: The Federal rules restrict any use of the information to criminally investigate or prosecute any alcohol or drug abuse patient.[facility] Care Teams (unrecognized sec tion and content) User Experience Researcher Relationship Specialty Start Date End Date Kimberly Murguia MD [address] [place] [address] [place] [phone] PCP - General Internal Medicine 01/21/21 User Experience Researcher Relationship Specialty Start Date End Date Kimberly Murguia MD [address] [place] [address] [place] [address] PCP - General Internal Medicine 01/21/21 User Experience Researcher Relationship Specialty Start Date End Date Kimberly Murguia MD [address] [facility] [address] [place] [address] PCP - General Internal Medicine 01/21/21 User Experience Researcher Relationship Specialty Start Date End Date Kimberly Murguia MD [address] [facility] [address] [place] [address] PCP - General Internal Medicine 01/21/21 User Experience Researcher Relationship Specialty Start Date End Date Kimberly Murguia MD [address] [facility] [address] [place] [address] PCP - General Internal Medicine 01/21/21 User Experience Researcher Relationship Specialty Start Date End Date Kimberly Murguia MD [address] [place] [address] [facility] [address] [place] [phone] PCP - General Internal Medicine 01/21/21 User Experience Researcher Relationship Specialty Start Date End Date Kimberly Murguia MD [address] [place] [address] [facility] [address] [place] [phone] PCP - General Internal Medicine 01/21/21 User Experience Researcher Relationship Specialty Start Date End Date Kimberly Murguia MD [address] [place] [address] [facility] [address] [place] [phone] PCP - General Internal Medicine 01/21/21 User Experience Researcher Relationship Specialty Start Date End Date Kimberly Murguia MD [address] [place] [address] [facility] [address] [place] [phone] PCP - General Internal Medicine 01/21/21 User Experience Researcher Relationship Specialty Start Date End Date Kimberly Murguia MD [address] [place] [address] [facility] [address] [place] [phone] PCP - General Internal Medicine 01/21/21 User Experience Researcher Relationship Specialty Start Date End Date Francisco Murguia MD [address] [place] [address] [facility] [address] [place] [address] PCP - General 11/16/20 Francisco Murguia MD [address] [place] [address] [facility] [address] [place] [address] PCP - [facility] PCP 07/02/22 Roxana Price Box Toe CementerGaming Floor Supervisor 03/15/23 User Experience Researcher Relationship Specialty Start Date End Date Francisco Murguia MD [address] [place] [address] [facility] [address] [place] [address] PCP - General 11/16/20 Francisco Murguia MD [address] [place] [address] [facility] [address] [place] [address] PCP - [facility] PCP 07/02/22 Roxana Price Box Toe CementerGaming Floor Supervisor 03/15/23 User Experience Researcher Relationship Specialty Start Date End Date Francisco Murguia MD [address] [place] [address] [facility] [address] [place] [address] PCP - [facility] PCP 07/02/22 Blayne Peguero MD [address] [address] PCP - General Internal Medicine 03/08/23 Roxana Price Box Toe CementerGaming Floor Supervisor 03/15/23 04/16/23 User Experience Researcher Relationship Specialty Start Date End Date Kimberly Murguia MD [address] [place] [address] [facility] [address] [place] [address] PCP - General Internal Medicine 01/21/21 User Experience Researcher Relationship Specialty Start Date End Date Francisco Murguia MD [address] [place] [address] [facility] [address] [place] [address] [facility] 07/02/22 Blayne Peguero MD [address] [address] PCP - General Internal Medicine 03/08/23 User Experience Researcher Relationship Specialty Start Date End Date Francisco Murguia MD [address] [place] [address] [facility] [address] [place] [address] PCP - [facility] PCP 07/02/22 Blayne Peguero MD [address] [facility] [address] [place] [address] PCP - General Internal Medicine 03/08/23 User Experience Researcher Relationship Specialty Start Date End Date Francisco Murguia MD [address] [place] [address] [facility] [address] [place] [address] PCP - [facility] PCP 07/02/22 Blayne Peguero MD [address] [address] PCP - General Internal Medicine 03/08/23 User Experience Researcher Relationship Specialty Start Date End Date Kimberly Murguia MD [address] [place] [address] [facility] [address] [place] [address] PCP - General Internal Medicine 01/21/21 User Experience Researcher Relationship Specialty Start Date End Date Blayne Peguero MD [address] [address] PCP - General Internal Medicine 03/08/23 User Experience Researcher Relationship Specialty Start Date End Date Blayne Peguero MD [address] [address] PCP - General Internal Medicine 03/08/23 User Experience Researcher Relationship Specialty Start Date End Date Blayne Peguero MD [address] [address] PCP - General Internal Medicine 03/08/23 User Experience Researcher Relationship Specialty Start Date End Date Blayne Peguero MD [address] [facility] [address] [place] [address] PCP - General Internal Medicine 03/08/23 User Experience Researcher Relationship Specialty Start Date End Date [employer] 06/07/23 User Experience Researcher Relationship Specialty Start Date End Date Blayne Peguero MD [address]055 [facility] [address] [place] [address] PCP - General Internal Medicine 03/08/23 Aidan Shah DO [address] [facility] [address] [place] [address] PCP - [facility] Medicaid PCP 07/02/23 User Experience Researcher Relationship Specialty Start Date End Date [facility] 06/07/23 User Experience Researcher Relationship Specialty Start Date End Date [facility] [facility] 06/07/23 User Experience Researcher Relationship Specialty Start Date End Date [employer] [facility] 06/07/23 User Experience Researcher Relationship Specialty Start Date End Date [employer] [facility] 06/07/23 User Experience Researcher Relationship Specialty Start Date End Date [employer] [facility] 06/07/23 Reason for Visit (unrecogniz ed section and content) Reason Comments Consult Kidney Stones Reason Comments UTI Reason Comments Sinus Problem Reason Onset Date Comments Refill Request 02/27/2022 Reason Onset Date Comments Refill Request 02/28/2022 Reason Comments New Lt arm numbness and tingling x 1 month- Pt had a cut on her Lt forearm patient thinks this may be related. No imaging Numbness Lt arm numbness and tingling x 1 month- Pt had a cut on her Lt forearm patient thinks this may be related. No imaging Reason Comments Kidney Stones Reason Comments Establish Care Med Refill Specialty Diagnoses / Procedures [facility] To Contact G[facility]enterology Diagnoses Esophageal dysphagia Colon cancer screening Procedures Colonoscopy Screening MI COLONOSCOPY FLX DX W/COLLJ SPEC WHEN PFRMD MI COLON CA SCRN NOT HI RSK IND MI COLORECTAL SCRN; HI RISK IND MI COLONOSCOPY W/BIOPSY SINGLE/MULTIPLE MI COLSC FLX W/RMVL OF TUMOR POLYP LESION SNARE TQ MI COLSC FLX W/REMOVAL L[place]ION [place] [address] [place] [address] Referral ID Status Reason Start Date Expiration Date V isits Requested Visits Authorized [id number] Authorized 04/05/2023 10/02/2023 1 1 Reason Comments Abdominal Pain Right side abd pain with known ovarian cyst. Pt states pain increasing. Pt has nausea Reason Comments Urinary Incontinence Reason Comments Dyspnea On Exertion Specialty Diagnoses / Procedures [facility] Referred To Contact Diagnoses Pulmonary embolism, unspecified chronicity, unspecified pulmonary embolism type, unspecified whether acute cor pulmonale present (HCC) Procedures NA -[address] [place] [address] Referral ID Status Reason Start Date Expiration Date Visits Re quested Visits Authorized [id number] 1 1 Specialty Diagnoses / Procedures [facility] Referred To Contact Diagnoses Adnexal mass Adnexal mass [N94.89] Procedures MI OOPHORECTOMY PARTIAL/TOTAL UNI/BI [place]AROSCOP[place] [address] [facility] [place], [address] [address] [address] [place] [address] Referral ID Status Reason Start Date Expiration Date Visits Re quested Visits Authorized [id number] 1 1 Reason Comments URI Recent PE-06/07. Now URI, negative covid test today. States recent exposure to RSV Reason Comments Hypertension Reason Comments Follow Up Phone Call Post Discharge F/U - attempt made. No answer. Specialty Diagnoses / Procedures [facility] Referred To Contact Cardiology Diagnoses Heart palpitations Procedures Holter Or Event Tube Drawer Lul Chin, ETL PROGRAMMER-LIBRARIAN SPECIAL LIBRARY [address] [facility] [place] [address] Referral ID Status Reason Start Date Expiration Date V isits Requested Visits Authorized [id number] Authorized 08/06/2023 08/05/2024 1 1 Reason Comments Trauma Smashed rt hand inde x finger in car door x 1 day Reason Comments Results Reason Comments Sore Throat Congested, stomach a tammy x 4 days Reason Comments Back Pain right low back migra ting into right leg pain x 10 days, moving furniture Goals (unrecognized section and content) INFORMATION SOURCE (unrecogn ized section and content) DATE CREATED AUTHOR 03/29/2022 [facility] DATE CREATED AUTHOR AUTHOR'S ORGANIZ ATION 03/19/2023 [facility] DATE CREATED AUTHOR AUTHOR'S ORGANIZ ATION 03/21/2023 [facility] DATE CREATED AUTHOR AUTHOR'S ORGANIZ ATION 05/06/2023 [facility] DATE CREATED AUTHOR AUTHOR'S ORGANIZ ATION 05/30/2023 [facility] DATE CREATED AUTHOR AUTHOR'S ORGANIZ ATION 06/17/2023 [facility] DATE CREATED AUTHOR AUTHOR'S ORGANIZ ATION 07/12/2023 [facility] DATE CREATED AUTHOR AUTHOR'S ORGANIZ ATION 09/16/2023 [facility] DATE CREATED AUTHOR AUTHOR'S ORGANIZ ATION 10/23/2023 [facility] DATE CREATED AUTHOR AUTHOR'S ORGANIZ ATION 03/15/2024 [facility] <item> Privacy Markings (unrecogniz ed section and content) Section Author: Maribell Dai PROHIBITION ON REDISCLOSURE OF CONFIDENTIAL INFORMATION This notice accompanies a disclosure of information concerning a client made to you with the consent of such client. Scheduled Active and Recently Administ ered Medications (unrecognized section and content) Medication Order 05/12/2023 05/13/2023 05/14/2023 HYDROmorphone (Dilaudid) injection 1 mg (COMPLETED) 1 mg, intravenous, Once, On Sun05/14/23 at 1850, For 1 dose 1922 (Given - Provid er: Dasha Dunn RN) ketorolac (Toradol) injection 15 mg (COMPLETED) 15 mg, intravenous, Once, On Sun05/14/23 at 1720, For 1 dose 1736 (Given - Provid er: Dasha Dunn RN) pantoprazole (ProtoNix) injection 40 mg (COMPLETED) 40 mg, intravenous, Once, On Sun05/14/23 at 1720, For 1 dose, Reconstitute with 10 mL sodium chloride 0.9% for injection. Push over 2 minutes. 1736 (Given - Provid er: Dasha Dunn RN) sodium chloride 0.9 % bolus 1,000 mL (COMPLETED) 1,000 mL, intravenous, at 2,000 mL/hr, Administer over 30 Minutes, Once, On Sun05/14/23 at 1720, For 1 dose 1736 (New Bag - Prov ider: Dasha Dunn RN)180 (Stopped - Provider: Dasha Dunn RN) sucralfate (Carafate) suspension 1 g 1 g, oral, Every 6 hours scheduled, First dose on Sun05/14/23 at 1910, SHAKE WELL 192 (Given - Provid er: Dasha Dunn RN) Scheduled Medication Order 05/26/2023 05/27/2023 05/28/2023 alum-mag hydroxide-simeth (Mylanta) 200-200-20 mg/5 mL oral suspension 30 mL (COMPLETED) 30 mL, oral, Once, On Sun05/28/23 at 1630, For 1 dose, Recovery & On Unit, FOR PACU GERD SYMPTOMS 162 (Given - Provid er: Amanda Oneill RN) clindamycin in D5W (Cleocin) IVPB 900 mg (COMPLETED) 900 mg, intravenous, at 50 mL/hr, Administer over 60 Minutes, Once, On Sun05/28/23 at 1215, For 1 dose, Intraprocedure, premix bag, Dosing of this medication varies based on severity of illness. Does this patient have sepsis or concern for sepsis (probable or documented infection plus systemic manifestations of infection)? No, Suspected Indication (Select all that apply): Surgical Wound Infection 1239 (Given - Provid er: DIAMANTE Berry) famotidine PF (Pepcid) injection 20 mg (COMPLETED) 20 mg, intravenous, Once, On Sun05/28/23 at 1030, For 1 dose, Preprocedure 1119 (Given - Provid er: Audra Aleman RN) gentamicin (Garamycin) 270 mg in dextrose 5 % in water (D5W) 100 mL IV (COMPLETED) 270 mg (rounded from 273.5 mg = 5 mg/kg 54.7 kg [place] weight), intravenous, at 100 mL/hr, Administer over 60 Minutes, Once, On Sun05/28/23 at 1215, For 1 dose, Intraprocedure, Dosing of this medication varies based on severity of illness. Does this patient have sepsis or concern for sepsis (probable or documented infection plus systemic manifestations of infection)? No, Suspected Indication (Select all that apply): Surgical Wound Infection 1247 (New Bag - Prov ider: DIAMANTE Berry)1347 (Stopped - Provider: DIAMANTE Berry) hydrALAZINE (Apresoline) injection 2.6 mg (COMPLETED) 2.6 mg (rounded from 2.5 mg), intravenous, Once, On Sun05/28/23 at 1600, For 1 dose, Recovery (only), FOR PACU HTN 1557 (Given - Provid er: Amanda Oneill RN) hydrALAZINE (Apresoline) injection 2.6 mg (COMPLETED) 2.6 mg (rounded from 2.5 mg), intravenous, Once, On Sun05/28/23 at 1630, For 1 dose, Recovery (only), 2ND DOSE FOR PACU HTN 1624 (Given - Provid er: Amanda Oneill RN) ondansetron (Zofran) injection 4 mg (COMPLETED) 4 mg, intravenous, Once, On Sun05/28/23 at 1030, For 1 dose, Preprocedure, When administering via IV Push, administer over 3-5 minutes. 1119 (Given - Provid er: Audra Aleman RN) Continuous Medication Order 05/26/2023 05/27/2023 05/28/2023 lactated Ringer's infusion 50 mL/hr, intravenous, Continuous, Starting on Sun05/28/23 at 1030, Preprocedure 1119 (New Bag - Prov ider: Audra Aleman RN)1519 (New Bag - Provider: Amanda Oneill RN)1730 (Stopped - Provider: Amanda Oneill RN) PRN Medication Order 05/26/2023 05/27/2023 05/28/2023 BUPivacaine HCl (Marcaine) 0.5 % (5 mg/mL) injection (CANCELED) As needed, Starting on Sun05/28/23 at 1306, Intraprocedure 1306 (Given - Provid er: Main Reed MD - Comment: TO PORT SITES) HYDROmorphone (Dilaudid) injection 0.5 mg 0.5 mg, intravenous, Every 5 min PRN, pain severe (7-10), first line, Starting on Sun05/28/23 at 1413, Recovery (only), Max total of 4 mg regardless of dose. 1429 (Given - Provid er: Amanda Oneill RN)1442 (Given - Provider: Amanda Oneill RN) HYDROmorphone PF (Dilaudid) injection 0.2 mg 0.2 mg, intravenous, Every 5 min PRN, pain moderate (4-6), first line, Starting on Sun05/28/23 at 1413, Recovery (only), Max total of 4 mg regardless of dose. 1417 (Given - Provid er: Amanda Oneill RN)1457 (Given - Provider: Amanda Oneill, YUNI)1514 (Given - Provider: Amanda Oneill, YUNI)1535 (Given - Provider: Amanda Oneill, RN)1630 (Given - Provider: Amanda Oneill, RN) ondansetron (Zofran) injection 4 mg 4 mg, intravenous, Once as needed, nausea/vomiting, first line, Starting on Sun05/28/23 at 1413, For 1 dose, Recovery (only), When administering via IV Push, administer over 3-5 minutes. sodium chloride 0.9 % irrigation solution (CANCELED) As needed, Starting on Sun05/28/23 at 1340, Intraprocedure 1340 (Given - Provid er: Main Reed MD) sterile water irrigation solution (CANCELED) As needed, Starting on Sun05/28/23 at 1345, Intraprocedure 1345 (Given - Provid er: Main Reed MD - Comment: FOR CYSTO) FOR RECORDS PERTAINING TO PATIENTS WHO ARE OR HAVE BEEN ENROLLED IN A CHEMICAL DEPENDENCY/SUBSTANCEABUSE PROGRAM, SOME INFORMATION MAY BE OMITTED. This clinical summary was aggregated from multiple sources. Caution should be exercised in using it in the provision of clinical care. This summary normalizes information from multiple sources, and as a consequence, information in this document may materially change the coding, format and clinical context of patient data. In addition, data may be omitted in some cases. CLINICAL DECISIONS SHOULD BE BASED ON THE PRIMARY CLINICAL RECORDS. [employer] provides no warranty or guarantee of the accuracy or completeness of information in this document.
[2024-04-23 09:46] LABS: Absolute Lymphocyte Count 2.31 X10^3/uL (0.83-4.51); Absolute Neutrophil Count 3.3 X10^3/uL (2.0-7.7); Basophil# 0.03 X10^3/uL; Basophil% 0.5 % (0-1); Eosinophil# 0.13 X10^3/uL; Eosinophils% 2.1 % (0-5); Hematocrit 38.1 % (37-47); Hemoglobin 12.9 g/dL (12.0-15.0); Lymphocyte # 2.31 X10^3/ul (0.83-4.51); Lymphocyte % 37.3 % (19-41); Mean Corp Hgb Conc 33.9 g/dL (32-36); Mean Corpuscular Hgb 30.9 pg (27.0-32.0); Mean Corpuscular Volume 91.4 fL (81-99); Mean Platelet Vol. 9.9 fl (6.2-12.0); Monocyte# 0.42 X10^3/uL; Monocyte% 6.8 % (0-10); NRBC Flagged by Analyzer 0 % (0-5); Neutrophil # 3.29 X10^3/uL (2.7-7.7); Neutrophil % 53.1 % (47-70); Platelet Count 293 K/mm3 (150-450); RBC Distribution Width SD 42.9 fl (35.1-43.9); Red Blood Count 4.17 M/mm3 (4.2-5.4); White Blood Count 6.2 K/mm3 (4.4-11.0)
[2024-04-23 11:07] LABS: ALB/GLOB Ratio 0.8 RATIO (0.9-2.4); AST(SGOT) 40 U/L (15-37); Alanine Aminotransfer ALT/SGPT 30 U/L (13-56); Albumin, Serum 3.2 g/dL (3.2-5.0); Alkaline Phosphatase 67 U/L (45-117); Anion Gap 1 (5-15); BUN 17 mg/dL (7-18); Chloride 107 mmol/L (98-107); Creatinine, Serum 0.77 mg/dL (0.55-1.02); EST Glomerular Filtration Rate 85 mL/min (>60); Est Glom Filt Rate - Afr Amer 103 mL/min (>60); Globulin 4.2 g/dL (2.2-4.2); Glucose 95 mg/dL (74-106); Potassium 4.4 mmol/L (3.5-5.1); Protein, Total 7.4 g/dL (6.4-8.2); Sodium Level 135 mmol/L (136-145)
[2024-04-27 01:07] LABS: Calprotectin, Stool 96 ug/g (0-120); Fats, Neutral Normal (.); Fats, Total Normal (.)
[2024-04-28 10:08] LABS: Pancreatic Elastase, Fecal > 800 (>200)
== END | disposition home or self-care (01) ==
PROVIDERS: PCP Family Medicine; Referring Provider Student in an Organized Health Care Education/Training Program; Visit Provider Student in an Organized Health Care Education/Training Program
DX: R11.0 Nausea (principal); R19.7 Diarrhea, unspecified; K58.9 Irritable bowel syndrome, unspecified
CPT/HCPCS: 36415; 80053; 82274; 82653; 82705; 83630; 83993; 85025; 87177; 87209; 87329; 87493; 87506

== ENCOUNTER 2024-05-08 09:39 | Day surgery (SDC) | payer MEDICAID, SELFPAY ==
[2024-05-08] VITALS (8 sets, daily range): BP systolic 130–154; BP diastolic 88–104; PULSE 82–106; RESP 16–18; TEMP 36.2–37.1; O2SAT 92–99; BMI 30.7
== END 2024-05-08 12:35 | disposition home or self-care (01) ==
LOC: EN 09:41 → AC 09:42
PROVIDERS: PCP Family Medicine; Referring Provider Family Medicine; Visit Provider Internal Medicine Gastroenterology
PROC: 0DJ08ZZ Inspection of Upper Intestinal Tract, Via Natural or Artificial Opening Endoscopic (ICD-10-PCS; CPT 43235; principal; 2024-05-08 10:55)
DX: K29.70 Gastritis, unspecified, without bleeding (principal); K58.9 Irritable bowel syndrome, unspecified; K25.9 Gastric ulcer, unspecified as acute or chronic, without hemorrhage or perforation; K31.89 Other diseases of stomach and duodenum; J45.909 Unspecified asthma, uncomplicated; I10 Essential (primary) hypertension; K21.9 Gastro-esophageal reflux disease without esophagitis; Z79.01 Long term (current) use of anticoagulants; Z79.899 Other long term (current) drug therapy
CPT/HCPCS: 43239; 88305; 88342; A4216; J2405

== ENCOUNTER 2024-05-09 14:03 | Emergency (ER) | payer MEDICAID, SELFPAY ==
[2024-05-09 14:04] VITALS: BP 180/101; PULSE 79; RESP 16; TEMP 36.4; O2SAT 98; BMI 30.6
[2024-05-09 15:04] LABS: Hematocrit 38.8 % (37-47); Mean Corp Hgb Conc 33.5 g/dL (32-36); Mean Corpuscular Hgb 30.8 pg (27.0-32.0); Mean Corpuscular Volume 91.9 fL (81-99); Mean Platelet Vol. 8.5 fl (6.2-12.0); Platelet Count 305 K/mm3 (150-450); RBC Distribution Width CV 12.9 % (11.6-14.6); RBC Distribution Width SD 43.3 fl (35.1-43.9); Red Blood Count 4.22 M/mm3 (4.2-5.4)
[2024-05-09] MEDS: Famotidine 200 MG/20 ML MDV 20 MG in 0.9% Normal Saline (Pres. free 8 ML 300 MG IV (15:14)
[2024-05-09] MEDS: Ondansetron 4 MG/2 ML Vial IV (15:14)
[2024-05-09] MEDS: Mag Hydrox/Al Hydrox/Simeth 30 ML UDC PO (15:15)
[2024-05-09] MEDS: Lidocaine 2% Viscous15 ML UDC 15 ML PO (15:15)
[2024-05-09 15:23] LABS: AST(SGOT) 21 U/L (15-37); Alanine Aminotransfer ALT/SGPT 32 U/L (13-56); Albumin, Serum 3.5 g/dL (3.2-5.0); Alkaline Phosphatase 78 U/L (45-117); Anion Gap 5 (5-15); BUN 9 mg/dL (7-18); BUN/Creat Ratio 10.3 RATIO (10-20); Bilirubin, Direct 0.08 mg/dL (0.00-0.30); Calcium,Total 8.3 mg/dL (8.5-10.1); Chloride 109 mmol/L (98-107); Creatinine, Serum 0.88 mg/dL (0.55-1.02); EST Glomerular Filtration Rate 73 mL/min (>60); Est Glom Filt Rate - Afr Amer 89 mL/min (>60); Estimated Creatinine Clearance 84.32 ml/min; Globulin 3.6 g/dL (2.2-4.2); Glucose 88 mg/dL (74-106); Lipase 52 U/L (13-75); Potassium 3.5 mmol/L (3.5-5.1); Protein, Total 7.1 g/dL (6.4-8.2); Sodium Level 139 mmol/L (136-145); Troponin-I HS 5 pg/mL (3.0-54.0)
[2024-05-09 16:35] VITALS: BP 144/108; PULSE 63; RESP 14; TEMP 36.4; O2SAT 98
== END 2024-05-09 16:36 | disposition home or self-care (01) ==
PROVIDERS: Emergency Provider Emergency Medicine; PCP Family Medicine; Visit Provider Emergency Medicine
DX: G89.18 Other acute postprocedural pain (principal); R11.2 Nausea with vomiting, unspecified; R10.13 Epigastric pain; I10 Essential (primary) hypertension; R07.9 Chest pain, unspecified; K21.9 Gastro-esophageal reflux disease without esophagitis; J45.909 Unspecified asthma, uncomplicated; Z79.899 Other long term (current) drug therapy; Z86.711 Personal history of pulmonary embolism
CPT/HCPCS: 71275; 80048; 80076; 83690; 84484; 85027; 93005; 96374; 96375; 99284; Q9967; A4216; J2405; J3490

== ENCOUNTER → 2024-06-03 | Outpatient (CLI) | payer MEDICAID, SELFPAY ==
--- NOTE | 2024-06-03 16:27 | US_ITS ---
STUDY: ULTRASOUND OF THE FEMALE PELVIS - COMPLETE REASON FOR EXAM: Female, 48 years old. Pelvic pain. LMP: Patient is status post hysterectomy. TECHNIQUE: Transabdominal and Transvaginal TECHNICAL QUALITY: Adequate. COMPARISON: None. FINDINGS: The patient is status post hysterectomy. Patient is status post right oophorectomy. The left ovary is visualized. The left ovary measures 3.5 cm x 3.4 cm x 3.1 cm. There is a 2 cm x 2 cm x 2 cm cyst in the left lobe There is no visualized left adnexal mass or complex lesion. There is normal arterial and normal venous vascularity. There is no fluid in the cul-de-sac. The pre void volume of the bladder was 53 ml. US/Pelvic w/ Transvaginal IMPRESSION: Status post hysterectomy and right oophorectomy. 2 cm x 2 cm x 2 cm left ovarian cyst. Electronically Signed: Alvaro Ornelas MD at 15:29 EST ,
== END | disposition home or self-care (01) ==
PROVIDERS: PCP Family Medicine; Referring Provider Nurse Practitioner Women's Health; Visit Provider Nurse Practitioner Women's Health
DX: R10.2 Pelvic and perineal pain (principal); N83.202 Unspecified ovarian cyst, left side
CPT/HCPCS: 76830; 76856

== ENCOUNTER 2024-06-07 13:52 | Observation (INO) | payer MEDICAID, SELFPAY ==
[2024-06-07 13:52] VITALS: BP 158/97; PULSE 65; RESP 14; TEMP 36.1; O2SAT 100; BMI 32.3
--- NOTE | 2024-06-07 14:03 | CT_ITS ---
STUDY: CT ABDOMEN AND PELVIS WITHOUT CONTRAST REASON FOR EXAM: Female, 48 years old. Pain RADIATION DOSAGE (If Supplied By Facility): CTDIvol = ( 10.59 ) mGy, DLP = ( 569.06 ) mGycm TECHNIQUE: Transaxial images were obtained from the dome of the diaphragm to the symphysis pubis without oral contrast, and without intravenous contrast. Sagittal and coronal images were reconstructed. Individualized dose optimization techniques were used for this CT. COMPARISON: 03/24/2024 FINDINGS: Lung bases show interstitial edema. Heart size is normal. Normal liver. There are surgical clips in the gallbladder fossa consistent with a prior cholecystectomy. Normal spleen. Normal pancreas. Normal bilateral adrenal glands. There is dilatation of the right renal pelvis and the right ureter is likely due to the presence of a 8 mm stone at the right UPJ. No perinephric or periureteral inflammatory stranding. There are other nonobstructing stones in the right kidney as well. Left kidney is free of obstructive uropathy or suspicious solid renal lesion. Normal visualized stomach. Normal small intestine. Normal colon. The appendix is visualized and appears normal. Appendix seen on coronal recon images 56 through 62. Normal abdominal aorta. Normal inferior vena cava. Normal retroperitoneum. Normal urinary bladder. There is absence of the uterus consistent with a prior hysterectomy. Stable 3.8 cm left adnexal cyst. Normal abdominal wall. Normal osseous structures. CT/Abdomen/Pelvis without Cont IMPRESSION: There is a 8 mm stone in the right UPJ causing distention of the right renal pelvis and the lower pole calyx. No perinephric or periureteral inflammatory stranding Nonobstructing right renal stones Normal-appearing left kidney No free intraperitoneal fluid, air, or suspicious adenopathy Interstitial edema in the lung bases Stable 3.8 cm left adnexal cyst, no specific follow-up needed Electronically Signed: Arcadio Humphreys MD at 15:25 EST ,
--- NOTE | 2024-06-07 14:04 | EX.ED.DYSGE1 ---
HPI <ADAM Tran - Last Filed: 06/07/24 15:46> History of Present Illness Chief Complaint: Complaint Narrative Narrative: Patient is a 48-year-old female history of obesity, chronic abdominal pain, hypertension hyperlipidemia kidney stones who presents to the [facility] apartment with blood in her urine. Patient is currently on Eliquis secondary to blood clots. Patient states of the last 2 days, patient has some pain to the right flank, nausea and is here for evaluation. Denies any fever or chills. States to have no vomiting. PFS <ADAM Tran - Last Filed: 06/07/24 15:46> [facility] Medical History Wears glasses Post-menopausal Pulmonary embolism Easy bruising Excessive bleeding History of IBS Gastric reflux Non-smoker Asthma Shortness of breath on exertion Cardiology follow-up encounter Pulmonary embolism Cholecystectomy planned Hypertension Kidney stones Home Medications ?Medication ?Instructions ?Recorded ?Last Taken ?Type albuterol sulfate 90 mcg/actuation 1 - 2 puff inhalation Q4H PRN PRN 05/09/13 01/22/24 History aerosol inhaler (ProAir HFA) Asthma amlodipine 5 mg tablet 5 mg PO DAILY 12/04/23 05/08/24 History apixaban 5 mg tablet (Eliquis) 5 mg PO BID 12/04/23 05/03/24 History famotidine 40 mg tablet 40 mg PO QHS 12/04/23 05/03/24 History fluticasone propionate 50 2 spray intranasal DAILY 12/04/23 01/22/24 History mcg/actuation nasal spray,suspension pantoprazole 40 mg tablet,delayed 40 mg PO DAILY 12/04/23 05/03/24 History release ropinirole 0.25 mg tablet 0.25 mg PO QHS PRN PRN restless 12/04/23 01/21/24 History legs potassium chloride 10 mEq 10 meq PO QDAY 03/06/24 Unknown History capsule,extended release dicyclomine 20 mg tablet 20 mg PO TID #30 tabs 03/24/24 05/03/24 Rx ondansetron 4 mg disintegrating 4 mg PO Q8H #20 tabs 04/21/24 Unknown Rx tablet carvedilol 3.125 mg tablet 1.5625 mg PO DAILY 05/05/24 05/08/24 History ondansetron 4 mg disintegrating 4 mg PO Q8H PRN PRN Nausea 7 days 05/09/24 Unknown Rx tablet #21 tabs sucralfate 1 gram tablet (Carafate) 1 g PO TID chest discomfort 4 05/16/24 Unknown Rx weeks #90 tabs Allergy/AdvReac Type Severity Reaction Status Date / Time Penicillins Allergy Anaphylaxis Verified 06/07/24 13:52 naproxen (From Naprosyn) AdvReac Unknown Nausea Verified 06/07/24 13:52 codeine AdvReac Nausea Verified 06/07/24 13:52 Family History Brother Asthma Grandmother Diabetes Myocardial infarction Father Hypertension Mother Uterine cancer Surgical History History of cardiac catheterization History of laparoscopic cholecystectomy History of bladder surgery History of hysterectomy Social History Smoking Status: Never smoker ROS <ADAM Tran - Last Filed: 06/07/24 15:46> [facility] [[email or web address]] ED ROS Narrative Constitutional: Negative for fever, chills, weight loss, weakness Eyes: Negative for vision loss, vision change, double vision ENT: Negative for any sore throat, ear pain, congestion Cardiovascular: Negative for any chest pain, tightness, palpitations Respiratory: Negative for any cough, sputum production, hemoptysis, dyspnea, dyspnea on exertion, orthopnea Gastrointestinal: Negative for any abdominal pain, vomiting, diarrhea, constipation, blood in stool, blood in vomit. Positive for nausea : Negative for any urinary frequency, dysuria, retention, blood in urine Muscle skeletal: Negative for any neck pain. Positive for left-sided flank pain Neurological: Negative for any headache, syncope, dizziness Skin: Negative for any rashes, itching, abrasions, lacerations Psychiatric: Negative for any depression, anxiety, stress, suicidal ideation, homicidal ideation Hematologic: Negative for any excessive bruising, easy bleeding <Dr. Albert Sykes DO - Last Filed: 06/07/24 15:58> [facility] [[email or web address]] ED ROS Narrative Constitutional: Negative for fever, chills, weight loss, weakness Eyes: Negative for vision loss, vision change, double vision ENT: Negative for any sore throat, ear pain, congestion Cardiovascular: Negative for any chest pain, tightness, palpitations Respiratory: Negative for any cough, sputum production, hemoptysis, dyspnea, dyspnea on exertion, orthopnea Gastrointestinal: Negative for any abdominal pain, vomiting, diarrhea, constipation, blood in stool, blood in vomit. Positive for nausea : Negative for any urinary frequency, dysuria, retention, + blood in urine Muscle skeletal: Negative for any neck pain. Positive for left-sided flank pain Neurological: Negative for any headache, syncope, dizziness Skin: Negative for any rashes, itching, abrasions, lacerations Psychiatric: Negative for any depression, anxiety, stress, suicidal ideation, homicidal ideation Hematologic: Negative for any excessive bruising, easy bleeding EXAM <ADAM Tran - Last Filed: 06/07/24 15:46> Physical Exam Narrative Exam Narrative: Vital signs reviewed. HEET: Head normocephalic atraumatic, TMs clear bilaterally. Posterior pharynx is clear, moist mucous membranes. Nares clear bilaterally. Neck: Supple with no lymphadenopathy or tenderness. No signs of meningismus. Cardiac: Regular rate and rhythm no murmurs gallops or rubs, equal peripheral pulses bilaterally. Respiratory: Lungs clear to auscultation bilaterally. No chest tenderness. Abdomen: Soft, nontender, nondistended. No abdominal bruit or pulsatile masses. No hepatosplenomegaly Extremities: No peripheral edema, no signs of gross trauma or deformity. Active full range of motion of all extremities. Neuro: Cranial nerves II through XII intact, no focal neurological deficits. Skin: Clean dry and intact with no rash, purpura, petechiae, vesicles or pustules. Backs/flank: Positive for right sided CVA tenderness, no midline spinal tenderness, no deformity. Psych: Normal mood and affect. No SI, HI or acute psychosis. Const Vital Signs: 06/07/24 13:52 Temperature 97 F L Temperature Source Temporal Pulse Rate 65 Respiratory Rate 14 Blood Pressure 158/97 H Blood Pressure Mean 117 Pulse Ox 100 Oxygen Delivery Method Room Air <Dr. Albert Sykes DO - Last Filed: 06/07/24 15:58> Physical Exam Const Vital Signs: 06/07/24 13:52 Temperature 97 F L Temperature Source Temporal Pulse Rate 65 Respiratory Rate 14 Blood Pressure 158/97 H Blood Pressure Mean 117 Pulse Ox 100 Oxygen Delivery Method Room Air [facility] <ADAM Tran - Last Filed: 06/07/24 15:46> [facility] Lab Data Labs: Laboratory Results - last 24 hr 06/07/24 06/07/24 14:03 14:13 WBC 8.1 RBC 4.15 L Hgb 13.0 Hct 38.5 MCV 92.8 MCH 31.3 MCHC 33.8 RDW Std Deviation 43.2 RDW Coeff of Bibi 12.7 Plt Count 314 MPV 8.7 Immature Gran % (Auto) 0.200 Neut % (Auto) 51.8 Lymph % (Auto) 39.6 [place] % (Auto) 6.0 Eos % (Auto) 2.0 Baso % (Auto) 0.4 Absolute Neuts (auto) 4.2 Absolute Lymphs (auto) 3.19 Nucleated RBC % 0 Sodium 138 Potassium 3.3 L Chloride 104 Carbon Dioxide 28.0 Anion Gap 6 BUN 16 Creatinine 0.87 Estim Creat Clear Calc 84.49 Est GFR (MDRD) Af Amer 90 Est GFR (MDRD) Non-Af 74 BUN/Creatinine Ratio 18.4 Glucose 86 Calcium 8.7 Total Bilirubin 0.60 AST 20 ALT 25 Alkaline Phosphatase 68 Total Protein 7.6 Albumin 3.9 Globulin 3.7 Albumin/Globulin Ratio 1.1 Lipase 34 Urine Color Red Urine Clarity Sl. Cloudy Urine pH 6.5 Ur Specific [place] 1.010 Urine Protein 30 H Urine Glucose (UA) Normal Urine Ketones Negative Urine Occult Blood 250 H Urine Nitrite Negative Urine Bilirubin Negative Urine Urobilinogen Normal Ur Leukocyte Esterase 25 H Urine RBC > 100 SEEN Urine WBC 0-5 SEEN Ur Squamous Epith Cells 0-5 SEEN Urine Bacteria 1+ Urine Mucus 0 SEEN Radiography Diagnostic Testing: Clinical Impression(s) from Imaging Studies Abdomen/Pelvis CT 06/07/24 14:03 IMPRESSION: There is a 8 mm stone in the right UPJ causing distention of the right renal pelvis and the lower pole calyx. No perinephric or periureteral inflammatory stranding Nonobstructing right renal stones Normal-appearing left kidney No free intraperitoneal fluid, air, or suspicious adenopathy Interstitial edema in the lung bases Stable 3.8 cm left adnexal cyst, no specific follow-up needed Electronically Signed: Arcadio Humphreys MD at 15:25 EST , Treatment and Re-Evaluation :: Differential diagnosis includes however is not limited to: Pyelonephritis, UTI, acute on chronic abdominal pain, hematuria, obstructing uropathy, infected kidney stone. Patient appears generally well, vital signs are stable, patient is nontoxic-appearing. Presenting to the emergency department with complaints of dysuria, hematuria, right-sided flank pain. Patient was use of basic laboratory eval as well as urinalysis. Patient received a CT scan noncontrast looking for any obstructive uropathy, pyelonephritis. All radiologic examinations were read, reviewed by the emergency department attending. From these reads, a plan of care will be put in place., Patient will be reevaluated. IV Zofran, Toradol given. Patient on reevaluation was feeling improved. Patient's CBC showed no acute leukocytosis, patient's urinalysis showed 1+ bacteria, greater than 100 white blood cells, 25 leukocytes. Negative nitrites. Positive for occult blood. CT scan of the abdomen pelvis out contrast was completed. Patient continued to have pain, she was given IV morphine. Patient states that this only helped slightly, and she is still having pain. Patient CT scan of the abdomen pelvis shows an 8 mm stone to the right UPJ causing distention of the right renal pelvis and the lower pole calyx. No [place]in phrenic or periureteral inflammatory stranding. Secondary to the size of the stone, the patient continued having pain, I did contact Dr. Disla, patient will be admitted by urology. Patient restarted IV Cipro secondary to anaphylaxis to penicillin. IV Dilaudid will be given. At this time, patient stable for admission. <Dr. Albert Sykes, DO - Last Filed: 06/07/24 15:58> [facility] Lab Data Labs: Laboratory Results - last 24 hr 06/07/24 06/07/24 14:03 14:13 WBC 8.1 RBC 4.15 L Hgb 13.0 Hct 38.5 MCV 92.8 MCH 31.3 MCHC 33.8 RDW Std Deviation 43.2 RDW Coeff of Bibi 12.7 Plt Count 314 MPV 8.7 Immature Gran % (Auto) 0.200 Neut % (Auto) 51.8 Lymph % (Auto) 39.6 [place] % (Auto) 6.0 Eos % (Auto) 2.0 Baso % (Auto) 0.4 Absolute Neuts (auto) 4.2 Absolute Lymphs (auto) 3.19 Nucleated RBC % 0 Sodium 138 Potassium 3.3 L Chloride 104 Carbon Dioxide 28.0 Anion Gap 6 BUN 16 Creatinine 0.87 Estim Creat Clear Calc 84.49 Est GFR (MDRD) Af Amer 90 Est GFR (MDRD) Non-Af 74 BUN/Creatinine Ratio 18.4 Glucose 86 Calcium 8.7 Total Bilirubin 0.60 AST 20 ALT 25 Alkaline Phosphatase 68 Total Protein 7.6 Albumin 3.9 Globulin 3.7 Albumin/Globulin Ratio 1.1 Lipase 34 Urine Color Red Urine Clarity Sl. Cloudy Urine pH 6.5 Ur Specific [place] 1.010 Urine Protein 30 H Urine Glucose (UA) Normal Urine Ketones Negative Urine Occult Blood 250 H Urine Nitrite Negative Urine Bilirubin Negative Urine Urobilinogen Normal Ur Leukocyte Esterase 25 H Urine RBC > 100 SEEN Urine WBC 0-5 SEEN Ur Squamous Epith Cells 0-5 SEEN Urine Bacteria 1+ Urine Mucus 0 SEEN Radiography Diagnostic Testing: Clinical Impression(s) from Imaging Studies Abdomen/Pelvis CT 06/07/24 14:03 IMPRESSION: There is a 8 mm stone in the right UPJ causing distention of the right renal pelvis and the lower pole calyx. No perinephric or periureteral inflammatory stranding Nonobstructing right renal stones Normal-appearing left kidney No free intraperitoneal fluid, air, or suspicious adenopathy Interstitial edema in the lung bases Stable 3.8 cm left adnexal cyst, no specific follow-up needed Electronically Signed: Arcadio Humphreys MD at 15:25 EST , Treatment and Re-Evaluation :: Differential diagnosis includes however is not limited to: Pyelonephritis, UTI, acute on chronic abdominal pain, hematuria, obstructing uropathy, infected kidney stone. Patient appears generally well, vital signs are stable, patient is nontoxic-appearing. Presenting to the emergency department with complaints of dysuria, hematuria, right-sided flank pain. Patient was use of basic laboratory eval as well as urinalysis. Patient received a CT scan noncontrast looking for any obstructive uropathy, pyelonephritis. All radiologic examinations were read, reviewed by the emergency department attending. From these reads, a plan of care will be put in place., Patient will be reevaluated. IV Zofran, Toradol given. Patient on reevaluation was feeling improved. Patient's CBC showed no acute leukocytosis, patient's urinalysis showed 1+ bacteria, greater than 100 white blood cells, 25 leukocytes. Negative nitrites. Positive for occult blood. CT scan of the abdomen pelvis out contrast was completed. Patient continued to have pain, she was given IV morphine. Patient states that this only helped slightly, and she is still having pain. Patient CT scan of the abdomen pelvis shows an 8 mm stone to the right UPJ causing distention of the right renal pelvis and the lower pole calyx. No Destin phrenic or periureteral inflammatory stranding. Secondary to the size of the stone, the patient continued having pain, I did contact Dr. Disla, patient will be admitted by urology. Patient restarted IV Cipro secondary to anaphylaxis to penicillin. IV Dilaudid will be given. At this time, patient stable for admission. ED attending note: I evaluated the patient in conjunction with the HUSSEIN. I agree with his/her statements and above findings. I have personally performed a face to face assessment of the patient and have reviewed the HUSSEIN Note. I performed a substantive portion of the visit including all aspects of the following. I personally saw the patient performed chart review, physical exam, reviewed labs, imaging (if obtained), and formulated a treatment and management plan. This note was generated with [employer] dictation software. It may contain incorrect words, spelling, and punctuation that were not noted in review of the chart prior to signing. Discharge Plan Dx/Rx/DC Orders Clinical Impression: Hydronephrosis with renal calculous obstruction, Acute flank pain Disposition Disposition: [facility]
[2024-06-07 14:09] LABS: Mucous, Urine 0 SEEN /hpf (<or=2+)
[2024-06-07 14:11] LABS: Color, Urine Red (Yellow); Glucose, Dipstick Normal (Normal); Ketone-Dipstick Negative (Negative); Leukocyte Esterase-Dipstick 25 /ul (Negative); Nitrite-Dipstick Negative (Negative); Occult Blood-Urine 250 /ul (Negative); Protein-Dipstick 30 mg/dl (Negative); Urine Bilirubin Dipstick Negative (Negative); Urine Clarity Sl. Cloudy (Clear); Urine Urobilinogen Normal (Normal); Urine pH 6.5 (5.0 - 8.0)
[2024-06-07] MEDS: Ondansetron 4 MG/2 ML Vial IV ×2 (14:11→20:21)
[2024-06-07] MEDS: Ketorolac 15 MG/ML Vial IV ×2 (14:12→20:20)
[2024-06-07 14:17] LABS: Bacteria 1+ /hpf (None Seen); Red Blood Cells-Urine > 100 SEEN /hpf (0-5); Squamous Epithelial Cells - UA 0-5 SEEN /hpf (5-10); White Blood Cells 0-5 SEEN /hpf (0-5)
[2024-06-07 14:19] LABS: Absolute Lymphocyte Count 3.19 X10^3/uL (0.83-4.51); Absolute Neutrophil Count 4.2 X10^3/uL (2.0-7.7); Basophil# 0.03 X10^3/uL; Basophil% 0.4 % (0-1); Eosinophil# 0.16 X10^3/uL; Hematocrit 38.5 % (37-47); Lymphocyte # 3.19 X10^3/ul (0.83-4.51); Lymphocyte % 39.6 % (19-41); Mean Corp Hgb Conc 33.8 g/dL (32-36); Mean Corpuscular Hgb 31.3 pg (27.0-32.0); Mean Corpuscular Volume 92.8 fL (81-99); Mean Platelet Vol. 8.7 fl (6.2-12.0); Monocyte# 0.48 X10^3/uL; NRBC Flagged by Analyzer 0 % (0-5); Neutrophil # 4.17 X10^3/uL (2.7-7.7); Neutrophil % 51.8 % (47-70); Platelet Count 314 K/mm3 (150-450); RBC Distribution Width CV 12.7 % (11.6-14.6); RBC Distribution Width SD 43.2 fl (35.1-43.9); Red Blood Count 4.15 M/mm3 (4.2-5.4); White Blood Count 8.1 K/mm3 (4.4-11.0)
[2024-06-07 14:43] LABS: ALB/GLOB Ratio 1.1 RATIO (0.9-2.4); AST(SGOT) 20 U/L (15-37); Alanine Aminotransfer ALT/SGPT 25 U/L (13-56); Albumin, Serum 3.9 g/dL (3.2-5.0); Alkaline Phosphatase 68 U/L (45-117); Anion Gap 6 (5-15); BUN 16 mg/dL (7-18); BUN/Creat Ratio 18.4 RATIO (10-20); Calcium,Total 8.7 mg/dL (8.5-10.1); Chloride 104 mmol/L (98-107); Creatinine, Serum 0.87 mg/dL (0.55-1.02); EST Glomerular Filtration Rate 74 mL/min (>60); Est Glom Filt Rate - Afr Amer 90 mL/min (>60); Estimated Creatinine Clearance 84.49 ml/min; Globulin 3.7 g/dL (2.2-4.2); Glucose 86 mg/dL (74-106); Lipase 34 U/L (13-75); Potassium 3.3 mmol/L (3.5-5.1); Protein, Total 7.6 g/dL (6.4-8.2); Sodium Level 138 mmol/L (136-145)
[2024-06-07] MEDS: Morphine 4 MG/ML Syringe IV (15:04)
[2024-06-07] MEDS: Ciprofloxacin 400 MG/200 ML BAG 200 MG IV (15:57)
[2024-06-07] MEDS: HYDROmorphone 0.5 MG/0.5 ML SYRINGE IV (15:57)
[2024-06-07 16:01] VITALS: BP 162/94; PULSE 77; RESP 19; TEMP 36.8; O2SAT 96
[2024-06-07 17:00] VITALS: BP 142/99; PULSE 78; RESP 19; O2SAT 98
[2024-06-07 17:25] VITALS: BMI 30.1
[2024-06-07 17:27] VITALS: BP 142/100; PULSE 66; RESP 14; TEMP 36.6; O2SAT 99
[2024-06-07] MEDS: Morphine 2 MG/ML Syringe IV ×2 (18:44→23:51)
[2024-06-07] MEDS: 0.9% Saline Lock 10 ML Syringe IV ×3 (18:45→23:51)
[2024-06-07] MEDS: Potassium Chloride Oral Tablet 20 MEQ 40 MEQ PO (18:45)
[2024-06-07] MEDS: Acetaminophen 500 MG Tablet 1000 MG PO (20:20)
[2024-06-07] MEDS: oxyCODONE 5 MG Tablet 10 MG PO (20:20)
[2024-06-07 20:31] VITALS: BP 133/100; PULSE 74; RESP 16; TEMP 36.6; O2SAT 97
[2024-06-07] MEDS: proCHLORPERazine 10 MG/2 ML Vial 5 MG IV (23:51)
[2024-06-08] VITALS (7 sets, daily range): BP systolic 114–148; BP diastolic 67–83; PULSE 71–81; RESP 16–18; TEMP 36.3–36.7; O2SAT 94–99; BMI 30.1
[2024-06-08] MEDS: Acetaminophen 500 MG Tablet 1000 MG PO ×3 (05:03→21:16)
[2024-06-08] MEDS: oxyCODONE 5 MG Tablet 10 MG PO (05:07)
[2024-06-08] MEDS: Ketorolac 15 MG/ML Vial IV ×2 (05:08→21:16)
[2024-06-08] MEDS: 0.9% Saline Lock 10 ML Syringe IV ×3 (05:09→21:16)
--- NOTE | 2024-06-08 09:02 | PCM.HP.STD ---
HPI - General General Date of Admission: 06/07/24 Date of Service: 06/08/24 HPI Narrative LETA RIOS, is a 48 F who presented to the emergency room with acute onset right-sided flank pain. She has been having nausea intermittently for some time and has been throwing up with this as well. There are no symptoms of urinary tract infection at this time. She does have a history of stones and has required ureteral stent insertion in the past. This morning her pain is okay but her nausea has suddenly returned. She does not feel this will be adequately managed on oral medications at this time. She also has a history of coagulopathy with pulmonary emboli in the past and is on anticoagulation. This will have to be held for shockwave lithotripsy. [facility] Medical History Wears glasses Post-menopausal Pulmonary embolism Easy bruising Excessive bleeding History of IBS Gastric reflux Non-smoker Asthma Shortness of breath on exertion Cardiology follow-up encounter Pulmonary embolism Cholecystectomy planned Hypertension Kidney stones Home Medications ?Medication ?Instructions ?Recorded ?Last Taken ?Type albuterol sulfate 90 mcg/actuation 1 - 2 puff inhalation Q4H PRN PRN 05/09/13 01/22/24 History aerosol inhaler (ProAir HFA) Asthma amlodipine 5 mg tablet 5 mg PO DAILY blood pressure 12/04/23 05/08/24 History apixaban 5 mg tablet (Eliquis) 5 mg PO BID blood thinner 12/04/23 05/03/24 History famotidine 40 mg tablet 40 mg PO QHS stomach 12/04/23 05/03/24 History fluticasone propionate 50 2 spray intranasal DAILY congestion 12/04/23 01/22/24 History mcg/actuation nasal spray,suspension pantoprazole 40 mg tablet,delayed 40 mg PO DAILY reflux 12/04/23 05/03/24 History release ropinirole 0.25 mg tablet 0.25 mg PO QHS PRN PRN restless 12/04/23 01/21/24 History legs potassium chloride 10 mEq 10 meq PO QDAY supplement 03/06/24 Unknown History capsule,extended release carvedilol 3.125 mg tablet 1.5625 mg PO DAILY heart 05/05/24 05/08/24 History ondansetron 4 mg disintegrating 4 mg PO Q8H PRN PRN Nausea 7 days 05/09/24 Unknown Rx tablet #21 tabs ondansetron 4 mg disintegrating 4 mg PO Q8H PRN nausea and vomiting 06/07/24 Unknown History tablet Allergy/AdvReac Type Severity Reaction Status Date / Time Penicillins Allergy Anaphylaxis Verified 06/07/24 13:52 naproxen (From Naprosyn) AdvReac Unknown Nausea Verified 06/07/24 13:52 codeine AdvReac Nausea Verified 06/07/24 13:52 Family History Brother Asthma Grandmother Diabetes Myocardial infarction Father Hypertension Mother Uterine cancer Surgical History History of cardiac catheterization History of laparoscopic cholecystectomy History of bladder surgery History of hysterectomy Social History Smoking Status: Never smoker ROS Constitutional Constitutional: Denies chills or fever(s) Eyes Eyes: Reports systems reviewed and no addt'l complaints, except as documented ENT HEENT: Reports systems reviewed and no addt'l complaints, except as documented Cardiovascular Cardiovascular: Reports abdominal pain and dyspnea on exertion; Denies chest pain Respiratory/Chest Respiratory/Chest: Reports dyspnea on exertion; Denies chest tightness, cough or inability to speak Gastrointestinal Gastrointestinal: Reports abdominal pain, nausea and vomiting Genitourinary Genitourinary: Reports flank pain; Denies dysuria, hematuria or urinary urgency Musculoskeletal Musculoskeletal: Reports back pain Integumentary Integumentary: Reports systems reviewed and no addt'l complaints, except as documented Neurologic Neurologic: Reports systems reviewed and no addt'l complaints, except as documented Psychiatric Psychiatric: Reports systems reviewed and no addt'l complaints, except as documented Endocrine Endocrinology: Reports systems reviewed and no addt'l complaints, except as documented Hematologic/Lymphatic Hematologic/Lymphatic: Reports systems reviewed and no addt'l complaints, except as documented Allergic/Immunologic Allergic/Immunologic: Reports systems reviewed and no addt'l complaints, except as documented Vital Signs Vital Signs Vital Signs: 06/07/24 13:52 06/07/24 16:01 06/07/24 17:00 Temperature 97 F L 98.2 F Temperature Source Temporal Pulse Rate 65 77 78 Respiratory Rate 14 19 H 19 H Respiratory Effort Respiratory Depth Respiratory Pattern Blood Pressure 158/97 H 162/94 H 142/99 H Blood Pressure Mean 117 116 113 Blood Pressure Source Blood Pressure Position Blood Pressure Location Pulse Ox 100 96 98 Oxygen Delivery Method Room Air Room Air 06/07/24 17:27 06/07/24 17:34 06/07/24 20:31 Temperature 97.8 F 97.9 F Temperature Source Oral Oral Pulse Rate 66 74 Respiratory Rate 14 16 Respiratory Effort Normal Non-Labored Respiratory Depth Normal Respiratory Pattern Normal Blood Pressure 142/100 H 133/100 H Blood Pressure Mean 114 111 Blood Pressure Source Monitor Monitor Blood Pressure Position Semi-Fowlers Semi-Fowlers Blood Pressure Location Right Arm Right Arm Pulse Ox 99 97 Oxygen Delivery Method Room Air Room Air Room Air 06/07/24 20:31 06/08/24 05:54 06/08/24 08:00 Temperature 97.6 F L Temperature Source Oral Pulse Rate 81 Respiratory Rate 16 18 Respiratory Effort Normal Non-Labored Normal Non-Labored Respiratory Depth Normal Respiratory Pattern Normal Blood Pressure 116/70 Blood Pressure Mean 85 Blood Pressure Source Monitor Blood Pressure Position Blood Pressure Location Right Arm Pulse Ox 97 Oxygen Delivery Method Room Air Room Air Room Air 06/08/24 08:08 Temperature 97.4 F L Temperature Source Oral Pulse Rate 78 Respiratory Rate 18 Respiratory Effort Respiratory Depth Respiratory Pattern Blood Pressure 148/82 H Blood Pressure Mean 104 Blood Pressure Source Monitor Blood Pressure Position Semi-Fowlers Blood Pressure Location Right Arm Pulse Ox 99 Oxygen Delivery Method Room Air Weight Weight: 82.1 kg Body Mass Index (BMI) 30.1 Physical Exam Const alert, oriented x3 and no apparent distress General Appearance: cooperative and comfortable HEENT normocephalic, head/scalp atraumatic, hearing grossly normal bilaterally, external ears normal, external nose normal and moist oral mucous membranes Eyes General Eye: normal appearance of both eyes Neck General: trachea midline Lymph Lymphatic: no lymphedema noted Chest inspection of chest normal Chest: symmetrical chest wall rise Resp normal respiratory effort, normal air movement and no retractions Cardio regular rate GI soft to palpation, non-tender and non-distended Bladder / Kidney Exam: CVA tenderness right Back/Spine General Back: CVA tenderness right Extremity normal to inspection Skin no rashes or lesions noted, no jaundice, no petechiae and no mottling Neuro oriented x3, CN's II-XII intact bilaterally and moves all extremities Psych mental status grossly normal and thought process normal Results Lab / Micro Data 06/07/24 14:13 06/07/24 14:13 Labs: Laboratory Results - last 24 hr 06/07/24 14:03: Urine Color Red, Urine Clarity Sl. Cloudy, Urine pH 6.5, Ur Specific [place] 1.010, Urine Protein 30 H, Urine Glucose (UA) Normal, Urine Ketones Negative, Urine Occult Blood 250 H, Urine Nitrite Negative, Urine Bilirubin Negative, Urine Urobilinogen Normal, Ur Leukocyte Esterase 25 H, Urine RBC > 100 SEEN, Urine WBC 0-5 SEEN, Ur Squamous Epith Cells 0-5 SEEN, Urine Bacteria 1+, Urine Mucus 0 SEEN 06/07/24 14:13: WBC 8.1, RBC 4.15 L, Hgb 13.0, Hct 38.5, MCV 92.8, MCH 31.3, MCHC 33.8, RDW Std Deviation 43.2, RDW Coeff of Bibi 12.7, Plt Count 314, MPV 8.7, Immature Gran % (Auto) 0.200, Neut % (Auto) 51.8, Lymph % (Auto) 39.6, [place] % (Auto) 6.0, Eos % (Auto) 2.0, Baso % (Auto) 0.4, Absolute Neuts (auto) 4.2, Absolute Lymphs (auto) 3.19, Nucleated RBC % 0, Sodium 138, Potassium 3.3 L, Chloride 104, Carbon Dioxide 28.0, Anion Gap 6, BUN 16, Creatinine 0.87, Estim Creat Clear Calc 84.49, Est GFR (MDRD) Af Amer 90, Est GFR (MDRD) Non-Af 74, BUN/Creatinine Ratio 18.4, Glucose 86, Calcium 8.7, Total Bilirubin 0.60, AST 20, ALT 25, Alkaline Phosphatase 68, Total Protein 7.6, Albumin 3.9, Globulin 3.7, Albumin/Globulin Ratio 1.1, Lipase 34 Imaging Radiology Impression Abdomen/Pelvis CT 06/07/24 14:03 IMPRESSION: There is a 8 mm stone in the right UPJ causing distention of the right renal pelvis and the lower pole calyx. No perinephric or periureteral inflammatory stranding Nonobstructing right renal stones Normal-appearing left kidney No free intraperitoneal fluid, air, or suspicious adenopathy Interstitial edema in the lung bases Stable 3.8 cm left adnexal cyst, no specific follow-up needed Electronically Signed: Arcadio Humphreys MD at 15:25 EST , Assessment & Plan Assessment/Plan (1) Hydronephrosis with renal calculous obstruction: (2) Acute flank pain: (3) Nausea: PLAN: Plan Cystoscopy with right ureteral stent insertion planned for tomorrow Continue supportive care Will plan for stone management as an outpatient with negative culture and shockwave lithotripsy with anticoagulation held Plan for discharge tomorrow after ureteral stent insertion Restart home meds
[2024-06-08] MEDS: Ondansetron 4 MG/2 ML Vial IV (09:36)
[2024-06-08] MEDS: Potassium Chloride Oral Tablet 10 MEQ PO (10:57)
[2024-06-08] MEDS: Carvedilol 3.125 MG TABLET 1.5625 MG PO (10:58)
[2024-06-08] MEDS: amLODIPine 5 MG Tablet PO (10:58)
[2024-06-08] MEDS: Pantoprazole Sodium 40 MG Tablet PO (10:58)
[2024-06-08] MEDS: Fluticasone 0.05% 1 SPRAY NASAL.SRY 2 SPRAY NASAL (11:29)
[2024-06-08] MEDS: proCHLORPERazine 10 MG/2 ML Vial 5 MG IV (14:32)
[2024-06-08] MEDS: Famotidine 20 MG Tablet 40 MG PO (21:16)
[2024-06-09] VITALS (13 sets, daily range): BP systolic 118–151; BP diastolic 79–95; PULSE 66–82; RESP 16–18; TEMP 36.2–37.1; O2SAT 93–100; BMI 30.1
[2024-06-09] MEDS: Ciprofloxacin 400 MG/200 ML BAG 200 MG IV (06:02)
[2024-06-09] MEDS: Ondansetron 4 MG/2 ML Vial IV (06:05)
[2024-06-09] MEDS: oxyCODONE 5 MG Tablet 10 MG PO (06:05)
[2024-06-09] MEDS: Acetaminophen 500 MG Tablet 1000 MG PO (06:06)
[2024-06-09 06:08] LABS: Absolute Lymphocyte Count 2.48 X10^3/uL (0.83-4.51); Absolute Neutrophil Count 3.5 X10^3/uL (2.0-7.7); Basophil# 0.02 X10^3/uL; Basophil% 0.3 % (0-1); Eosinophil# 0.12 X10^3/uL; Eosinophils% 1.8 % (0-5); Hematocrit 35.1 % (37-47); Hemoglobin 12.1 g/dL (12.0-15.0); Lymphocyte # 2.48 X10^3/ul (0.83-4.51); Lymphocyte % 37.8 % (19-41); Mean Corp Hgb Conc 34.5 g/dL (32-36); Mean Corpuscular Hgb 31.9 pg (27.0-32.0); Mean Corpuscular Volume 92.6 fL (81-99); Mean Platelet Vol. 8.8 fl (6.2-12.0); Monocyte# 0.39 X10^3/uL; Monocyte% 5.9 % (0-10); NRBC Flagged by Analyzer 0 % (0-5); Neutrophil # 3.53 X10^3/uL (2.7-7.7); Neutrophil % 53.9 % (47-70); Platelet Count 271 K/mm3 (150-450); RBC Distribution Width CV 12.8 % (11.6-14.6); RBC Distribution Width SD 43.4 fl (35.1-43.9); Red Blood Count 3.79 M/mm3 (4.2-5.4); White Blood Count 6.6 K/mm3 (4.4-11.0)
[2024-06-09 06:36] LABS: Partial Thromboplast Time 23.9 Seconds (24.1-36.2)
[2024-06-09 06:43] LABS: Anion Gap 3 (5-15); BUN 17 mg/dL (7-18); BUN/Creat Ratio 19.6 RATIO (10-20); Calcium,Total 8.8 mg/dL (8.5-10.1); Chloride 109 mmol/L (98-107); Creatinine, Serum 0.87 mg/dL (0.55-1.02); EST Glomerular Filtration Rate 74 mL/min (>60); Est Glom Filt Rate - Afr Amer 90 mL/min (>60); Glucose 99 mg/dL (74-106); Potassium 3.8 mmol/L (3.5-5.1); Sodium Level 138 mmol/L (136-145)
[2024-06-09 07:30] LABS: International Normalized Ratio 1.2; Prothrombin Time (Protime)PT. 14.8 SECONDS (11.7-14.9)
--- NOTE | 2024-06-09 11:25 | CASEMGMT ---
RN CM NOTE: RN CM to room to complete assessment. Pt out of room. Assessment to be completed at a later time. Elsi SAAVEDRAN RN CM
[2024-06-09] MEDS: Carvedilol 3.125 MG TABLET 1.5625 MG PO (11:54)
[2024-06-09] MEDS: Fluticasone 0.05% 1 SPRAY NASAL.SRY 2 SPRAY NASAL (11:54)
--- NOTE | 2024-06-09 12:12 | PRE.ANES_ITS ---
ASA Classification* ASA Classification ASA Classification: 2 Assessment & Plan Anesthesia* Anesthesia Assessment Anesthesia Assessment: Discussed sedation and/or anesthesia options, risks, benefits, and alternatives with patient/parents/legal guardian/POA. Questions invited. The patient/parents/legal guardian/POA seems to understand and agrees to proceed with anesthesia plan. Reviewed the physical assessment, medical history, allergy history and patient home medications list prior to surgery/procedure/anesthetic and documented any changes. Performed airway and anesthesia risk assessments. Anesthesia Type Anesthesia Type: MAC Anesthesia Focused Assessment* Temperature: 98.8 F Pulse Rate: 78 Blood Pressure: 118/82 Respiratory Rate: 18 Pulse Ox: 100 Airway Assessment Mouth opens: >3 cm Mallampati Score: II Focused Labs Anesthesia Preop lab: CBC WBC 6.6 K/mm3 (4.4-11.0) 06/09/24 05:49 RBC 3.79 M/mm3 (4.2-5.4) L 06/09/24 05:49 Hgb 12.1 g/dL (12.0-15.0) 06/09/24 05:49 Hct 35.1 % (37-47) L 06/09/24 05:49 Plt Count 271 K/mm3 (150-450) 06/09/24 05:49 CHEMISTRY Potassium 3.8 mmol/L (3.5-5.1) 06/09/24 05:49 Sodium 138 mmol/L (136-145) 06/09/24 05:49 Magnesium 2.3 mg/dL (1.8-2.4) 01/30/16 06:21 BUN 17 mg/dL (7-18) 06/09/24 05:49 Creatinine 0.87 mg/dL (0.55-1.02) 06/09/24 05:49 Glucose 99 mg/dL (74-106) 06/09/24 05:49 TSH 1.98 uIU/mL (0.358-3.74) 11/15/23 14:07 COAG PT 14.8 SECONDS (11.7-14.9) 06/09/24 05:49 HCG, Quant < 1 mIU/mL (<9 non-preg) 04/27/14 19:40 Urine Test Negative Negative 02/28/15 03:50 Pre-Assessment Diagnosis/Proposed Procedure Planned Operative Procedure(s): Cystoscopy, stent placement Anesthesia History 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 When Was Last Pacemaker Check QUESTION #4 FULL TEXT: You/Your Family Experience fever (hyperthermia) with Anesthesia Last Oral Intake Last Oral intake: Last Oral Intake NPO since 00:00 06/09/24 10:43 Meds taken in AM with sips of Yes 06/09/24 10:43 water? 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 Female HX of Motion Sickness HX of N/V After Surgery Non-Smoker Duration of Surgery greater than 60 minutes Number of Risk Factors PONV Score Height & Weight Height & Weight: Anesthesia: Height & Weight Height 5 ft 5 in 06/09/24 10:43 Weight: 82.1 kg 06/09/24 10:43 Body Mass Index (BMI) 30.1 06/09/24 10:43 Respiratory Assessment Respiratory Assessment - safety pin assembling machine operator: Respiratory Tract Infection Hx - safety pin assembling machine operator Hx Respiratory Tract Infection No 06/08/24 20:44 STOP Sleep Apnea STOP Sleep Apnea - safety pin assembling machine operator: STOP Sleep Apnea - safety pin assembling machine operator Hx Hypertension Yes: CONTROLLED ON MED 06/07/24 17:13 Hx Sleep Apnea No 06/07/24 17:13 CPAP No 06/07/24 17:13 BIPAP No 06/07/24 17:13 Do you snore loudly (louder No 06/07/24 17:13 than talking or can be heard Do you often feel tired/ No 06/07/24 17:13 fatigued/ sleepy during daytime? Has anyone observed you stop No 06/07/24 17:13 breathing during sleep? STOP Results Negative 06/07/24 17:13 QUESTION #5 FULL TEXT : Do you snore loudly (louder than talking or can be heard through closed doors)? 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 Specify any problems Hx of Preganancy in last 3 N/A 06/07/24 17:13 Months Nurse Filling Out Transfusion DSLOAN 06/07/24 17:13 & Questions: Date: 06/07/24 06/07/24 17:13 Time: 17:15 06/07/24 17:13 Patient unable to answer at this time (ie. 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 INHALATION Q4H PRN PRN Asthma Amlodipine Besylate 5 mg 06/08/24 10:00 06/09/24 10:35 Amlodipine 5 Mg Tablet PO Not Given DAILY CEM Protocol Apixaban 5 mg 06/08/24 10:00 06/09/24 10:35 Apixaban 5 Mg Tablet PO Not Given BID CEM Carvedilol 1.5625 mg 06/08/24 10:00 06/09/24 11:54 Carvedilol 3.125 Mg Tablet PO 1.5625 mg DAILY CEM Administration Protocol Famotidine 40 mg 06/08/24 22:00 06/08/24 21:16 Famotidine 20 Mg Tablet PO 40 mg QHS CEM Administration Fluticasone Propionate 2 spray 06/08/24 10:00 06/09/24 11:54 Fluticasone 0.05% 1 [place] Nasal.Sry NASAL 2 spray DAILY CEM Administration Sodium Chloride 500 mls @ 15 mls/hr 06/07/24 17:09 IV .[id number] PRN Saline Flush Sodium Chloride 500 mls @ 15 mls/hr 06/07/24 17:09 IV .[id number] PRN Additional IVPB Infusion Ciprofloxacin 400 mg in 200 mls @ 200 mls/hr 06/09/24 05:30 06/09/24 06:02 Cipro IV 200 mls/hr Q12 CEM Administration Magnesium Hydroxide 30 ml 06/07/24 18:19 Magnesium Hydroxide 30 Ml Udc PO DAILY PRN PRN Constipation Melatonin 3 mg 06/07/24 18:19 Melatonin 3 Mg Tablet PO QHS PRN PRN INSOMNIA Morphine Sulfate 2 - 4 mg 06/07/24 18:19 06/07/24 23:51 Morphine 2 Mg/Ml Syringe IV 4 mg Q3H PRN PRN Administration Pain Score 6-10 Ondansetron HCl 4 mg 06/07/24 18:19 06/09/24 06:05 Ondansetron 4 Mg/2 Ml Vial IV 4 mg Q8H PRN PRN Administration NAUSEA/VOMITING Oxycodone HCl 10 mg 06/07/24 18:19 06/09/24 06:05 Oxycodone 5 Mg Tablet PO 10 mg Q4H PRN PRN Administration Pain Score 4-10 Pantoprazole Sodium 40 mg 06/08/24 10:00 06/09/24 10:35 Pantoprazole Sodium 40 Mg Tablet PO Not Given DAILY CEM Potassium Chloride 10 meq 06/08/24 09:15 06/09/24 10:35 Potassium Chloride Oral Tablet 10 Meq [facility] Prochlorperazine Edisylate 5 mg 06/07/24 18:19 06/08/24 14:32 Prochlorperazine 10 Mg/2 Ml Vial IV 5 mg Q4H PRN PRN Administration Breakthrough nausea/vomiting Sodium Chloride 10 - 40 ml 06/07/24 17:09 06/08/24 21:16 0.9% Saline Lock 10 Ml Syringe IV 10 ml UD PRN Administration SALINE FLUSH PFSH Medical History Wears glasses Post-menopausal Pulmonary embolism Easy bruising Excessive bleeding History of IBS Gastric reflux Non-smoker Asthma Shortness of breath on exertion Cardiology follow-up encounter Pulmonary embolism Cholecystectomy planned Hypertension Kidney stones Home Medications ?Medication ?Instructions ?Recorded ?Last Taken ?Type albuterol sulfate 90 mcg/actuation 1 - 2 puff inhalation Q4H PRN PRN 05/09/13 01/22/24 History aerosol inhaler (ProAir HFA) Asthma amlodipine 5 mg tablet 5 mg PO DAILY blood pressure 12/04/23 05/08/24 History apixaban 5 mg tablet (Eliquis) 5 mg PO BID blood thinner 12/04/23 05/03/24 History famotidine 40 mg tablet 40 mg PO QHS stomach 12/04/23 05/03/24 History fluticasone propionate 50 2 spray intranasal DAILY congestion 12/04/23 01/22/24 History mcg/actuation nasal spray,suspension pantoprazole 40 mg tablet,delayed 40 mg PO DAILY reflux 12/04/23 05/03/24 History release ropinirole 0.25 mg tablet 0.25 mg PO QHS PRN PRN restless 12/04/23 01/21/24 History legs potassium chloride 10 mEq 10 meq PO QDAY supplement 03/06/24 Unknown History capsule,extended release carvedilol 3.125 mg tablet 1.5625 mg PO DAILY heart 05/05/24 05/08/24 History ondansetron 4 mg disintegrating 4 mg PO Q8H PRN PRN Nausea 7 days 05/09/24 Unknown Rx tablet #21 tabs ondansetron 4 mg disintegrating 4 mg PO Q8H PRN nausea and vomiting 06/07/24 Unknown History tablet Allergy/AdvReac Type Severity Reaction Status Date / Time Penicillins Allergy Anaphylaxis Verified 06/07/24 13:52 naproxen (From Naprosyn) AdvReac Unknown Nausea Verified 06/07/24 13:52 codeine AdvReac Nausea Verified 06/07/24 13:52 Family History Brother Asthma Grandmother Diabetes Myocardial infarction Father Hypertension Mother Uterine cancer Surgical History History of cardiac catheterization History of laparoscopic cholecystectomy History of bladder surgery History of hysterectomy Social History Smoking Status: Never smoker Review of Systems (Anesthesia) ROS Narrative System reviewed and no additional complaints, except as documented.
--- NOTE | 2024-06-09 12:20 | EX.PCM.DISCH ---
Discharge Instructions Diet Discharge Diet: No restrictions Activity Discharge Activity: Return to Normal Activity Dressing / Incision Call your doctor if you observe: Fever of 101 or Higher, Inability to urinate and Inability to have a bowel movement Follow Up Care Please Follow Up With: Anyi Disla MD When: The office will call her to make follow up arrangements for surgery Test Results: Test results from this visit will be discussed in further detail at your follow-up appointment, if applicable. Discharge Plan Admission Admit Date/Time: 06/07/24 18:19 Attending Provider: Anyi Disla Primary Care Provider: Dwayne Dorado Discharge Orders/Prescriptions Prescriptions: New oxycodone-acetaminophen [Percocet] 5-325 mg tablet 1 tab PO Q8H PRN (Reason: pain) 3 Days Qty: 10 0RF phenazopyridine [Pyridium] 200 mg tablet 200 mg PO TID PRN PRN (Reason: Bladder Spasms) 7 Days Qty: 30 1RF ciprofloxacin HCl 500 mg tablet 500 mg PO BID Qty: 6 0RF Continued potassium chloride 10 mEq capsule, extended release 10 meq PO QDAY albuterol sulfate [ProAir HFA] 1 PUFF inhaler 1 - 2 puff inhalation Q4H PRN PRN (Reason: Asthma) Patient Comments: shortness of breath famotidine 40 mg tablet 40 mg PO QHS pantoprazole 40 mg tablet,delayed release (DR/EC) 40 mg PO DAILY fluticasone propionate 50 mcg/actuation spray,suspension 2 spray INTRANASAL DAILY amlodipine 5 mg tablet 5 mg PO DAILY ropinirole 0.25 mg tablet 0.25 mg PO QHS PRN PRN (Reason: restless legs) Eliquis 5 mg tablet 5 mg PO BID Patient Comments: STOP 5 DAYS PRIOR carvedilol 3.125 mg tablet 1.5625 mg PO DAILY ondansetron 4 mg tablet,disintegrating 4 mg PO Q8H PRN (Reason: nausea and vomiting) ondansetron 4 mg tablet,disintegrating 4 mg PO Q8H PRN PRN (Reason: Nausea) 7 Days Qty: 21 0RF Referrals / Follow Up: Dwayne Dorado MD [Primary Care Provider] - Disposition Disposition (needs filled in before D/C Order can be placed): Home, Self Care
--- NOTE | 2024-06-09 12:24 | PCM.OPRPT ---
Problems Associated Problem List Diagnoses (1) Hydronephrosis with renal calculous obstruction: Operative Report (Standard) Operative Information Date of Procedure: 06/09/24 Pre-Operative Diagnosis: Right renal stone with hydronephrosis Post-Operative Diagnosis: Same, uncontrolled pain and nausea Surgery/Procedure Performed: Cystoscopy with insertion of right ureteral stent wood calker: No Type of Anesthesia: MAC RN Documented Start/Stop Times: Operation Date: 06/09/24 12:30 Case Time Into Pre-Op 06/09/24 11:34 Procedure Start Time: 12:36 Procedure Stop Time: 12:43 Select all DRAINS/GRAFTS/IMPLANTS that apply: Drains Drain details: 6 Micron[place] x 26 cm JJ stent Estimated Blood Loss: <5cc Specimen collected: No Description of surgery: The patient is a 48-year-old female with an 8 mm right renal pelvic stone that is causing intermittent obstruction of the renal pelvis. Her pain is uncontrolled and she presents for a cystoscopy and right ureteral stent insertion. Informed consent was obtained. The patient was taken to the operating room and placed on the operating room table. Anesthesia monitored the head, neck, airway, IV access and vital signs throughout the case. Once anesthesia was appropriately administered, she was placed into dorsolithotomy position and was prepped and draped in usual sterile fashion. The cystoscope was inserted through the urethra under direct visualization into the urinary bladder. The bladder mucosa revealed no evidence of mass, erythema, foreign body or other abnormality. The right ureteral orifice was visualized and intubated with a 0.035 Glidewire which was seen within the renal pelvis on fluoroscopy. A 6 [place] 26 cm JJ stent was then passed over the wire with good positioning in the renal pelvis as well as the urinary bladder. At this time the patient's bladder was emptied and the wire and cystoscope were both removed. She was awakened and taken to the recovery room in good condition. There were no complications during the procedure. Surgical Findings: Right 8 mm renal stone visualized, 6 [place]ron[place] x 26 cm JJ stent placed without issues Complications Complications: No Admit VTE Documentation VTE Present on Admission: Yes VTE Mechan Device Prophylaxis: SCD's VTE Pharm Prophylaxis ordered?: Yes
--- NOTE | 2024-06-09 12:28 | DCINST_ITS ---
Discharge Instructions Diet Discharge Diet: No restrictions Dressing / Incision Call your doctor if you observe: Fever of 101 or Higher, Inability to urinate and Inability to have a bowel movement Follow Up Care Please Follow Up With: Anyi Disla MD Test Results: Test results from this visit will be discussed in further detail at your follow- up appointment, if applicable. Discharge Plan Admission Admit Date/Time: 06/07/24 18:19 Attending Provider: Anyi Disla Primary Care Provider: Dwayne Dorado Discharge Orders/Prescriptions Prescriptions: New oxycodone-acetaminophen [Percocet] 5-325 mg tablet 1 tab PO Q8H PRN (Reason: pain) 3 Days Qty: 10 0RF phenazopyridine [Pyridium] 200 mg tablet 200 mg PO TID PRN PRN (Reason: Bladder Spasms) 7 Days Qty: 30 1RF ciprofloxacin HCl 500 mg tablet 500 mg PO BID Qty: 6 0RF oxycodone-acetaminophen 5-325 mg tablet 1 tab PO Q8H PRN PRN (Reason: Pain) 3 Days Qty: 10 0RF Continued potassium chloride 10 mEq capsule, extended release 10 meq PO QDAY albuterol sulfate [ProAir HFA] 1 PUFF inhaler 1 - 2 puff inhalation Q4H PRN PRN (Reason: Asthma) Patient Comments: shortness of breath famotidine 40 mg tablet 40 mg PO QHS pantoprazole 40 mg tablet,delayed release (DR/EC) 40 mg PO DAILY fluticasone propionate 50 mcg/actuation spray,suspension 2 spray INTRANASAL DAILY amlodipine 5 mg tablet 5 mg PO DAILY ropinirole 0.25 mg tablet 0.25 mg PO QHS PRN PRN (Reason: restless legs) Eliquis 5 mg tablet 5 mg PO BID Patient Comments: STOP 5 DAYS PRIOR carvedilol 3.125 mg tablet 1.5625 mg PO DAILY ondansetron 4 mg tablet,disintegrating 4 mg PO Q8H PRN (Reason: nausea and vomiting) ondansetron 4 mg tablet,disintegrating 4 mg PO Q8H PRN PRN (Reason: Nausea) 7 Days Qty: 21 0RF Referrals / Follow Up: Dwayne Dorado MD [Primary Care Provider] - Disposition Disposition (needs filled in before D/C Order can be placed): Home, Self Care
--- NOTE | 2024-06-09 12:55 | PCM.POST.ANE ---
Anesthesia: Postop Eval I Current Vital Signs Temperature: 98.5 F Pulse Rate: 76 Blood Pressure: 121/88 Respiratory Rate: 16 Pulse Ox: 93 Oxygen Delivery Method: Room Air Assessment Airway patent: Yes Spontaneous unlabored respirations: Yes Mental status: Awake and Calm nausea: No Vomiting: No Anesthesia Complication: No Fluid Hydration Crystalloid volume administer (ml): 10 Total IV fluid infused: 10 Progress Note Anesthesia document: Postop Eval 1 completed: Yes
--- NOTE | 2024-06-09 14:01 | CASEMGMT ---
RN SUSANNA EXPRESSIVE MUSIC THERAPIST SUSANNA?to room to meet with patient for initial transition planning/care coordination assessment. RN SUSANNA?introduced self and role at [facility]. Pt voices understanding and consents to assessment?at this time. Pt resting in bed in no distress at this time. Pt is A/O at this time and answers all questions appropriately. Care providers, pharmacy, and demographics verified/updated at this time. Strata:?3 PCP: Dr Dorado Specialists: Dr Prakash. [place] [employer]. Preferred Pharmacy: [facility] Retail @ discharge Insurance: [employer] Prescription Benefit: Yes Living Will/HPOA: Pt states she has done HCPOA and that Eddie, her boyfriend, is primary agent. Made aware this is not on-file @ [facility]. LNOK: Pt has adult children. Eddie, boyfriend, is only contact listed. She states they are getting this Sunday. Living Arrangements: Lives w/Eddie. Independent. Transportation:?Pt states drives self and states no transportation concerns at this time. Eddie also drives and will be taking pt home. DME: Denies using any DME HHC/SNF: No hx. No needs identified. Pt wishes to return home and states has no concerns with going home. PLAN: Home Elsi SOLO RN, CM
--- NOTE | 2024-06-09 15:27 | PHA.DC.MC.R ---
Pharmacy [facility] Pharm[facility] Service has performed discharge medication reconciliation and counseling for this patient. 1. CIPROFLOXACIN 500MG PO BID X 3 DAYS 2. OXYCODONE/ACETAMINOPHEN 5/325MG PO Q8H PRN PAIN 3. PHENAZOPYRIDINE 200MG PO TID PRN BLADDER SPASMS The patient's discharge medication list was reviewed for discrepancies and discrepancies were resolved. The patient was counseled on the following discharge medications and changes in medications for homegoing were reviewed. The Reason for Use, instructions for use, and potential side effects were reviewed for all new medications. The patient's questions regarding all of their medications were answered. The patient was able to verbally demonstrate an understanding of their discharge medications. Medications at Discharge Home Medications albuterol sulfate 90 mcg/actuation aerosol inhaler (ProAir HFA) 1 - 2 puff inhalation Q4H PRN PRN Asthma 05/09/13 amlodipine 5 mg tablet 5 mg PO DAILY blood pressure 12/04/23 apixaban 5 mg tablet (Eliquis) 5 mg PO BID blood thinner 12/04/23 famotidine 40 mg tablet 40 mg PO QHS stomach 12/04/23 fluticasone propionate 50 mcg/actuation nasal spray,suspension 2 spray intranasal DAILY congestion 12/04/23 pantoprazole 40 mg tablet,delayed release 40 mg PO DAILY reflux 12/04/23 ropinirole 0.25 mg tablet 0.25 mg PO QHS PRN PRN restless legs 12/04/23 potassium chloride 10 mEq capsule,extended release 10 meq PO QDAY supplement 03/06/24 carvedilol 3.125 mg tablet 1.5625 mg PO DAILY heart 05/05/24 ondansetron 4 mg disintegrating tablet 4 mg PO Q8H PRN PRN Nausea 7 days #21 tabs 05/09/24 ciprofloxacin HCl 500 mg tablet 500 mg PO BID #6 TABLETS 06/09/24 oxycodone-acetaminophen 5 mg-325 mg tablet 1 tab PO Q8H PRN PRN Pain 3 days #10 tabs 06/09/24 oxycodone-acetaminophen 5 mg-325 mg tablet (Percocet) 1 tab PO Q8H PRN pain 3 days #10 tabs 06/09/24 phenazopyridine 200 mg tablet (Pyridium) 200 mg PO TID PRN PRN Bladder Spasms 7 days #30 tabs 06/09/24
--- NOTE | 2024-06-09 17:51 | POSTOPAN2_ITS ---
Anesthesia Postop Eval I Sum Postop Eval Completion status Anesthesia document: Postop Eval 1 completed: Yes Anesthesia Postop Eval I Summary Anesthesia Postop Eval I Summary: Anesthesia Postop Eval I: Assessment Summary Airway patent Yes 06/09/24 12:56 JAVA GOLDEN GATE DEVELOPER.WAYLONOBYokasta Spontaneous unlabored Yes 06/09/24 12:56 JAVA GOLDEN GATE DEVELOPER.IZABELLA respirations Mental status Awake,Calm 06/09/24 12:56 JAVA GOLDEN GATE DEVELOPER.IZABELLA nausea No 06/09/24 12:56 JAVA GOLDEN GATE DEVELOPER.IZABELLA Vomiting No 06/09/24 12:56 JAVA GOLDEN GATE DEVELOPER.IZABELLA Anesthesia Postop Eval I: Fluid Summary Crystalloid volume administer 10 06/09/24 12:56 JAVA GOLDEN GATE DEVELOPER.WAYLONOBY (ml) Colloids volume administered ( ml) Blood Product volume administered (ml) Total IV fluid infused 10 06/09/24 12:56 JAVA GOLDEN GATE DEVELOPER.IZABELLA Anesthesia Postop Eval I: Summary Notes Anesthesia Complication No 06/09/24 12:56 JAVA GOLDEN GATE DEVELOPERSINTIA Anesthesia Complication Comment: Post-operative progress note Anesthesia: Postop Eval II Evaluation Mental status: Awake Pain Level: 0 nausea: No Vomiting: No
--- NOTE | 2024-06-09 17:51 | PCM.POSTANE2 ---
Anesthesia Postop Eval I Sum Postop Eval Completion status Anesthesia document: Postop Eval 1 completed: Yes Anesthesia Postop Eval I Summary Anesthesia Postop Eval I Summary: Anesthesia Postop Eval I: Assessment Summary Airway patent Yes 06/09/24 12:56 FINANCIAL PROFESSIONAL.WAYLONOBYokasta Spontaneous unlabored Yes 06/09/24 12:56 FINANCIAL PROFESSIONAL.IZABELLA respirations Mental status Awake,Calm 06/09/24 12:56 FINANCIAL PROFESSIONAL.IZABELLA nausea No 06/09/24 12:56 FINANCIAL PROFESSIONAL.IZABELLA Vomiting No 06/09/24 12:56 FINANCIAL PROFESSIONAL.IZABELLA Anesthesia Postop Eval I: Fluid Summary Crystalloid volume administer 10 06/09/24 12:56 FINANCIAL PROFESSIONAL.WAYLONOBY (ml) Colloids volume administered ( ml) Blood Product volume administered (ml) Total IV fluid infused 10 06/09/24 12:56 FINANCIAL PROFESSIONAL.IZABELLA Anesthesia Postop Eval I: Summary Notes Anesthesia Complication No 06/09/24 12:56 FINANCIAL PROFESSIONALSINTIA Anesthesia Complication Comment: Post-operative progress note Anesthesia: Postop Eval II Evaluation Mental status: Awake Pain Level: 0 nausea: No Vomiting: No
== END 2024-06-09 16:17 | disposition home or self-care (01) | DRG 661 ==
LOC: ED 15:46 → MS3 17:04
PROVIDERS: Anesthesiology; Nurse Practitioner; Admitting Provider Urology; Emergency Provider Emergency Medicine; PCP Family Medicine; Visit Provider Urology
PROC: (CPT 52332; principal; 2024-06-09 12:20)
DX: N13.2 Hydronephrosis with renal and ureteral calculous obstruction (principal); E66.9 Obesity, unspecified; E78.5 Hyperlipidemia, unspecified; I10 Essential (primary) hypertension; J45.909 Unspecified asthma, uncomplicated; G89.29 Other chronic pain; Z88.0 Allergy status to penicillin; Z79.01 Long term (current) use of anticoagulants; Z79.899 Other long term (current) drug therapy; Z86.718 Personal history of other venous thrombosis and embolism; Z86.711 Personal history of pulmonary embolism; K21.9 Gastro-esophageal reflux disease without esophagitis; Z68.30 Body mass index [BMI] 30.0-30.9, adult
CPT/HCPCS: 52332; 00910; 36415; 74176; 76000; 80048; 80053; 81001; 83690; 85025; 85610; 85730; 87086; 87088; 96365; 96366; 96375; 96376; 99221; 99283; A4216; C2617; G0378; J0744; J2405

== ENCOUNTER 2024-06-19 12:02 | Day surgery (SDC) | payer MEDICAID, SELFPAY ==
--- NOTE | 2024-06-18 16:54 | PAT.ANESEVAL ---
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 When Was Last Pacemaker Check QUESTION #4 FULL TEXT: You/Your Family Experience fever (hyperthermia) with Anesthesia Last Oral Intake Last Oral intake: Last Oral Intake NPO since Meds taken in AM with sips of water? Meds patient instructed to take am of surgery PONV PONV - special day class teacher: PONV - special day class teacher Female Yes 06/18/24 10:37 HX of Motion Sickness No 06/18/24 10:37 HX of N/V After Surgery No 06/18/24 10:37 Non-Smoker Yes 06/18/24 10:37 Duration of Surgery greater Yes 06/18/24 10:37 than 60 minutes Number of Risk Factors 3 06/18/24 10:37 PONV Score Moderate Risk 06/18/24 10:37 Height & Weight Height & Weight: Anesthesia: Height & Weight Height 5 ft 5 in 06/09/24 10:43 Respiratory Assessment Respiratory Assessment - special day class teacher: Respiratory Tract Infection Hx - special day class teacher Hx Respiratory Tract Infection No 06/18/24 10:37 STOP Sleep Apnea STOP Sleep Apnea - special day class teacher: STOP Sleep Apnea - special day class teacher Hx Hypertension Yes: CONTROLLED ON MED 06/18/24 10:37 Hx Sleep Apnea No 06/18/24 10:37 CPAP No 06/18/24 10:37 BIPAP No 06/18/24 10:37 Do you snore loudly (louder No 06/18/24 10:37 than talking or can be heard Do you often feel tired/ No 06/18/24 10:37 fatigued/ sleepy during daytime? Has anyone observed you stop No 06/18/24 10:37 breathing during sleep? STOP Results Negative 06/18/24 10:37 QUESTION #5 FULL TEXT : Do you snore loudly (louder than talking or can be heard through closed doors)? 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 Specify any problems Hx of Preganancy in last 3 No 06/18/24 10:37 Months Nurse Filling Out Transfusion DSCHRIBER 06/18/24 10:37 & Questions: Date: 06/18/24 06/18/24 10:37 Time: 10:38 06/18/24 10:37 Patient unable to answer at this time (ie. confused, unrespo /Reproduction History /Reproductive History - special day class teacher: /Reproductive Hx- special day class teacher Hx Now No 06/18/24 10:37 Gestational Age (in weeks): EDC: Hx Hx Para Hx Section SAB No 06/18/24 10:37 Active Medications Active Medications: Current Medications Generic Name Dose Route Start Last Admin Trade Name Freq PRN Reason Stop Dose Admin Ciprofloxacin 400 mg in 200 mls @ 200 mls/hr 06/19/24 13:40 Cipro IV 06/19/24 14:39 PREOP ONE PFSH Medical History (Updated 06/18/24 @ 10:47 by Emily Montalvo) Anemia Easy bruising Restless legs History of stress test Wears glasses Post-menopausal Pulmonary embolism History of IBS Gastric reflux Non-smoker Asthma Cardiology follow-up encounter Hypertension Home Medications ?Medication ?Instructions ?Recorded ?Last Taken ?Type albuterol sulfate 90 mcg/actuation 1 - 2 puff inhalation Q4H PRN PRN 05/09/13 01/22/24 History aerosol inhaler (ProAir HFA) Asthma amlodipine 5 mg tablet 5 mg PO DAILY blood pressure 12/04/23 05/08/24 History apixaban 5 mg tablet (Eliquis) 5 mg PO BID blood thinner 12/04/23 06/16/24 History famotidine 40 mg tablet 40 mg PO QHS stomach 12/04/23 05/03/24 History fluticasone propionate 50 2 spray intranasal DAILY congestion 12/04/23 01/22/24 History mcg/actuation nasal spray,suspension pantoprazole 40 mg tablet,delayed 40 mg PO DAILY reflux 12/04/23 05/03/24 History release ropinirole 0.25 mg tablet 0.25 mg PO QHS PRN PRN restless 12/04/23 01/21/24 History legs potassium chloride 10 mEq 10 meq PO QDAY supplement 03/06/24 Unknown History capsule,extended release carvedilol 3.125 mg tablet 1.5625 mg PO DAILY heart 05/05/24 05/08/24 History ondansetron 4 mg disintegrating 4 mg PO Q8H PRN PRN Nausea 7 days 05/09/24 Unknown Rx tablet #21 tabs Allergy/AdvReac Type Severity Reaction Status Date / Time Penicillins Allergy Anaphylaxis Verified 06/18/24 10:34 naproxen (From Naprosyn) AdvReac Unknown Nausea Verified 06/18/24 10:34 codeine AdvReac Nausea Verified 06/18/24 10:34 Family History Brother Asthma Grandmother Diabetes Myocardial infarction Father Hypertension Mother Uterine cancer Surgical History (Updated 06/18/24 @ 10:47 by Emily Montalvo) History of cystoscopy History of cardiac catheterization History of laparoscopic cholecystectomy History of bladder surgery History of hysterectomy Social History Smoking Status: Never smoker Audit: Pertinent Findings Pertinent Findings EKG Perinent findings: May 09, 2024. Normal sinus rhythm Stress test pertinent findings: June 06, 2023. Ejection fraction 73%. Small area of mild ischemia in the territory of the LAD. Normal left ventricular systolic function. This is a low risk scan. Echo (EF%) pertinent findings: June 06, 2003. Ejection fraction 65%. right ventricular systolic pressure is at least 19 mmHg. There is no aortic stenosis. Heart catheterization pertinent findings: June 08, 2023 Recommendation Anesthesia Recommendation Anesthesia recommendation: F/U recommended (Patient had ischemia on her stress test. A cardiac cath was done. There is no results of the catheterization in the computer.)
[2024-06-19] VITALS (7 sets, daily range): BP systolic 127–141; BP diastolic 83–99; PULSE 72–92; RESP 16; TEMP 36.1–37; O2SAT 93–100; BMI 29.8
[2024-06-19] MEDS: 0.9% Normal Saline (1000mL) 1,000 ML 15 ML IV (12:57)
--- NOTE | 2024-06-19 13:33 | PAT.ANESEVAL ---
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 When Was Last Pacemaker Check QUESTION #4 FULL TEXT: You/Your Family Experience fever (hyperthermia) with Anesthesia Last Oral Intake Last Oral intake: Last Oral Intake NPO since 06:30 06/19/24 12:31 Meds taken in AM with sips of Yes 06/19/24 12:31 water? 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 Female Yes 06/18/24 10:37 HX of Motion Sickness No 06/18/24 10:37 HX of N/V After Surgery No 06/18/24 10:37 Non-Smoker Yes 06/18/24 10:37 Duration of Surgery greater Yes 06/18/24 10:37 than 60 minutes Number of Risk Factors 3 06/18/24 10:37 PONV Score Moderate Risk 06/18/24 10:37 Height & Weight Height & Weight: Anesthesia: Height & Weight Height 5 ft 5 in 06/19/24 12:31 Weight: 81.4 kg 06/19/24 12:31 Body Mass Index (BMI) 29.8 06/19/24 12:31 Respiratory Assessment Respiratory Assessment - elocution teacher: Respiratory Tract Infection Hx - elocution teacher Hx Respiratory Tract Infection No 06/18/24 10:37 STOP Sleep Apnea STOP Sleep Apnea - elocution teacher: STOP Sleep Apnea - elocution teacher Hx Hypertension Yes: CONTROLLED ON MED 06/18/24 10:37 Hx Sleep Apnea No 06/18/24 10:37 CPAP No 06/18/24 10:37 BIPAP No 06/18/24 10:37 Do you snore loudly (louder No 06/18/24 10:37 than talking or can be heard Do you often feel tired/ No 06/18/24 10:37 fatigued/ sleepy during daytime? Has anyone observed you stop No 06/18/24 10:37 breathing during sleep? STOP Results Negative 06/18/24 10:37 QUESTION #5 FULL TEXT : Do you snore loudly (louder than talking or can be heard through closed doors)? 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 Specify any problems Hx of Preganancy in last 3 No 06/18/24 10:37 Months Nurse Filling Out Transfusion DSCHRIBER 06/18/24 10:37 & Questions: Date: 06/18/24 06/18/24 10:37 Time: 10:38 06/18/24 10:37 Patient unable to answer at this time (ie. 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: /Reproductive Hx- elocution teacher Hx Now No 06/18/24 10:37 Gestational Age (in weeks): EDC: Hx Hx Para Hx Section SAB No 06/18/24 10:37 Active Medications Active Medications: Current Medications Generic Name Dose Route Start Last Admin Trade Name Freq PRN Reason Stop Dose Admin Ciprofloxacin 400 mg in 200 mls @ 200 mls/hr 06/19/24 13:40 Cipro IV 06/19/24 14:39 PREOP ONE Sodium Chloride 1,000 mls @ 15 mls/hr 06/19/24 12:15 06/19/24 12:57 IV 06/25/24 01:34 15 mls/hr .Q48H CEM Administration Protocol PFSH Medical History (Updated 06/18/24 @ 10:47 by Emily Montalvo) Anemia Easy bruising Restless legs History of stress test Wears glasses Post-menopausal Pulmonary embolism History of IBS Gastric reflux Non-smoker Asthma Cardiology follow-up encounter Hypertension Home Medications ?Medication ?Instructions ?Recorded ?Last Taken ?Type albuterol sulfate 90 mcg/actuation 1 - 2 puff inhalation Q4H PRN PRN 05/09/13 01/22/24 History aerosol inhaler (ProAir HFA) Asthma amlodipine 5 mg tablet 5 mg PO DAILY blood pressure 12/04/23 06/19/24 History apixaban 5 mg tablet (Eliquis) 5 mg PO BID blood thinner 12/04/23 06/16/24 History famotidine 40 mg tablet 40 mg PO QHS stomach 12/04/23 05/03/24 History fluticasone propionate 50 2 spray intranasal DAILY congestion 12/04/23 01/22/24 History mcg/actuation nasal spray,suspension pantoprazole 40 mg tablet,delayed 40 mg PO DAILY reflux 12/04/23 06/19/24 History release ropinirole 0.25 mg tablet 0.25 mg PO QHS PRN PRN restless 12/04/23 01/21/24 History legs potassium chloride 10 mEq 10 meq PO QDAY supplement 03/06/24 Unknown History capsule,extended release carvedilol 3.125 mg tablet 1.5625 mg PO DAILY heart 05/05/24 06/19/24 History ondansetron 4 mg disintegrating 4 mg PO Q8H PRN PRN Nausea 7 days 05/09/24 Unknown Rx tablet #21 tabs Allergy/AdvReac Type Severity Reaction Status Date / Time Penicillins Allergy Anaphylaxis Verified 06/19/24 12:30 naproxen (From Naprosyn) AdvReac Unknown Nausea Verified 06/19/24 12:30 codeine AdvReac Nausea Verified 06/19/24 12:30 Family History Brother Asthma Grandmother Diabetes Myocardial infarction Father Hypertension Mother Uterine cancer Surgical History (Updated 06/18/24 @ 10:47 by Emily Montalvo) History of cystoscopy History of cardiac catheterization History of laparoscopic cholecystectomy History of bladder surgery History of hysterectomy Social History Smoking Status: Never smoker Audit: Pertinent Findings HISTORY of Pertinent Findings History of Pertinent Findings: EKG Pertinent Findings EKG Perinent findings May 09, 2024. Normal 06/18/24 16:58 sinus rhythm Stress Test Pertinent Findings Stress test pertinent findings June 06, 2023. Ejection 06/18/24 17:25 fraction 73%. Small area of mild ischemia in the territory of the LAD. Normal left ventricular systolic function. This is a low risk scan. Echo Pertinent Findings Echo (EF%) pertinent findings June 06, 2003. Ejection 06/18/24 17:31 fraction 65%. right ventricular systolic pressure is at least 19 mmHg . There is no aortic stenosis. Heart Catheterization Pertinent Findings Heart catheterization June 08, 2023 06/18/24 17:31 pertinent findings Pertinent Findings Heart catheterization pertinent findings: June 08, 2023. No stenosis. Left ventricular ejection fraction is 55%. Recommendation Anesthesia Recommendation Anesthesia recommendation: OPTIMIZED for anesthesia
--- NOTE | 2024-06-19 13:40 | PRE.ANES_ITS ---
ASA Classification* ASA Classification ASA Classification: 2 Assessment & Plan Anesthesia* Anesthesia Assessment Anesthesia Assessment: Discussed sedation and/or anesthesia options, risks, benefits, and alternatives with patient/parents/legal guardian/POA. Questions invited. The patient/parents/legal guardian/POA seems to understand and agrees to proceed with anesthesia plan. Reviewed the physical assessment, medical history, allergy history and patient home medications list prior to surgery/procedure/anesthetic and documented any changes. Performed airway and anesthesia risk assessments. Anesthesia Type Anesthesia Type: General History Source History Obtained from:: Patient and Chart Anesthesia Focused Assessment* Temperature: 98.6 F Pulse Rate: 72 Blood Pressure: 141/99 Respiratory Rate: 16 Pulse Ox: 100 Oxygen Delivery Method: Room Air Airway Assessment Mouth opens: >3 cm Mallampati Score: IV Teeth Condition: Intact Neck Range of motion (ROM): Full ROM Focused Labs Anesthesia Preop lab: CBC WBC 6.6 K/mm3 (4.4-11.0) 06/09/24 05:49 RBC 3.79 M/mm3 (4.2-5.4) L 06/09/24 05:49 Hgb 12.1 g/dL (12.0-15.0) 06/09/24 05:49 Hct 35.1 % (37-47) L 06/09/24 05:49 Plt Count 271 K/mm3 (150-450) 06/09/24 05:49 CHEMISTRY Potassium 3.8 mmol/L (3.5-5.1) 06/09/24 05:49 Sodium 138 mmol/L (136-145) 06/09/24 05:49 Magnesium 2.3 mg/dL (1.8-2.4) 01/30/16 06:21 BUN 17 mg/dL (7-18) 06/09/24 05:49 Creatinine 0.87 mg/dL (0.55-1.02) 06/09/24 05:49 Glucose 99 mg/dL (74-106) 06/09/24 05:49 TSH 1.98 uIU/mL (0.358-3.74) 11/15/23 14:07 COAG PT 14.8 SECONDS (11.7-14.9) 06/09/24 05:49 HCG, Quant < 1 mIU/mL (<9 non-preg) 04/27/14 19:40 Urine Test Negative Negative 02/28/15 03:50 Pre-Assessment Diagnosis/Proposed Procedure Planned Operative Procedure(s): RIGHT RENAL ESWL Anesthesia History 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 When Was Last Pacemaker Check QUESTION #4 FULL TEXT: You/Your Family Experience fever (hyperthermia) with Anesthesia Last Oral Intake Last Oral intake: Last Oral Intake NPO since 06:30 06/19/24 12:31 Meds taken in AM with sips of Yes 06/19/24 12:31 water? Meds patient instructed to take am of surgery Any additional information?: Yes NPO since: 06:30 (Patient had sips of water at 6:30 AM with medications.) Meds taken in AM with sips of water?: Yes PONV PONV - bleach chlorinator: PONV - bleach chlorinator Female Yes 06/18/24 10:37 HX of Motion Sickness No 06/18/24 10:37 HX of N/V After Surgery No 06/18/24 10:37 Non-Smoker Yes 06/18/24 10:37 Duration of Surgery greater Yes 06/18/24 10:37 than 60 minutes Number of Risk Factors 3 06/18/24 10:37 PONV Score Moderate Risk 06/18/24 10:37 Height & Weight Height & Weight: Anesthesia: Height & Weight Height 5 ft 5 in 06/19/24 12:31 Weight: 81.4 kg 06/19/24 12:31 Body Mass Index (BMI) 29.8 06/19/24 12:31 Respiratory Assessment Respiratory Assessment - bleach chlorinator: Respiratory Tract Infection Hx - bleach chlorinator Hx Respiratory Tract Infection No 06/18/24 10:37 STOP Sleep Apnea STOP Sleep Apnea - bleach chlorinator: STOP Sleep Apnea - bleach chlorinator Hx Hypertension Yes: CONTROLLED ON MED 06/18/24 10:37 Hx Sleep Apnea No 06/18/24 10:37 CPAP No 06/18/24 10:37 BIPAP No 06/18/24 10:37 Do you snore loudly (louder No 06/18/24 10:37 than talking or can be heard Do you often feel tired/ No 06/18/24 10:37 fatigued/ sleepy during daytime? Has anyone observed you stop No 06/18/24 10:37 breathing during sleep? STOP Results Negative 06/18/24 10:37 QUESTION #5 FULL TEXT : Do you snore loudly (louder than talking or can be heard through closed doors)? 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 Specify any problems Hx of Preganancy in last 3 No 06/18/24 10:37 Months Nurse Filling Out Transfusion DSCHRIBER 06/18/24 10:37 & Questions: Date: 06/18/24 06/18/24 10:37 Time: 10:38 06/18/24 10:37 Patient unable to answer at this time (ie. confused, unrespo /Reproduction History /Reproductive History - bleach chlorinator: /Reproductive Hx- bleach chlorinator Hx Now No 06/18/24 10:37 Gestational Age (in weeks): EDC: Hx Hx Para Hx Section SAB No 06/18/24 10:37 Active Medications Active Medications: Current Medications Generic Name Dose Route Start Last Admin Trade Name Freq PRN Reason Stop Dose Admin Ciprofloxacin 400 mg in 200 mls @ 200 mls/hr 06/19/24 13:40 Cipro IV 06/19/24 14:39 PREOP ONE Sodium Chloride 1,000 mls @ 15 mls/hr 06/19/24 12:15 06/19/24 12:57 IV 06/25/24 01:34 15 mls/hr .Q48H CEM [facility] History Anemia Easy bruising Restless legs History of stress test Wears glasses Post-menopausal Pulmonary embolism History of IBS Gastric reflux Non-smoker Asthma Cardiology follow-up encounter Hypertension Home Medications ?Medication ?Instructions ?Recorded ?Last Taken ?Type albuterol sulfate 90 mcg/actuation 1 - 2 puff inhalation Q4H PRN PRN 05/09/13 01/22/24 History aerosol inhaler (ProAir HFA) Asthma amlodipine 5 mg tablet 5 mg PO DAILY blood pressure 12/04/23 06/19/24 History apixaban 5 mg tablet (Eliquis) 5 mg PO BID blood thinner 12/04/23 06/16/24 History famotidine 40 mg tablet 40 mg PO QHS stomach 12/04/23 05/03/24 History fluticasone propionate 50 2 spray intranasal DAILY congestion 12/04/23 01/22/24 History mcg/actuation nasal spray,suspension pantoprazole 40 mg tablet,delayed 40 mg PO DAILY reflux 12/04/23 06/19/24 History release ropinirole 0.25 mg tablet 0.25 mg PO QHS PRN PRN restless 12/04/23 01/21/24 History legs potassium chloride 10 mEq 10 meq PO QDAY supplement 03/06/24 Unknown History capsule,extended release carvedilol 3.125 mg tablet 1.5625 mg PO DAILY heart 05/05/24 06/19/24 History ondansetron 4 mg disintegrating 4 mg PO Q8H PRN PRN Nausea 7 days 05/09/24 Unknown Rx tablet #21 tabs Allergy/AdvReac Type Severity Reaction Status Date / Time Penicillins Allergy Anaphylaxis Verified 06/19/24 12:30 naproxen (From Naprosyn) AdvReac Unknown Nausea Verified 06/19/24 12:30 codeine AdvReac Nausea Verified 06/19/24 12:30 Family History Brother Asthma Grandmother Diabetes Myocardial infarction Father Hypertension Mother Uterine cancer Surgical History History of cystoscopy History of cardiac catheterization History of laparoscopic cholecystectomy History of bladder surgery History of hysterectomy Social History Smoking Status: Never smoker Review of Systems (Anesthesia) ROS Narrative System reviewed and no additional complaints, except as documented.
[2024-06-19] MEDS: Ciprofloxacin 400 MG/200 ML BAG 200 MG IV (13:54)
--- NOTE | 2024-06-19 14:07 | EX.PCM.DISCH ---
Discharge Instructions Diet Discharge Diet: No restrictions Activity Discharge Activity: Return to Normal Activity May resume sexual activity in: No Restrictions Dressing / Incision Call your doctor if you observe: Fever of 101 or Higher, Inability to urinate and Inability to have a bowel movement Follow Up Care Please Follow Up With: Anyi Disla MD When: In the office in 3 weeks with KUB with possible cystoscopy and stent removal. Test Results: Test results from this visit will be discussed in further detail at your follow-up appointment, if applicable. Discharge Plan Admission Attending Provider: Anyi Disla Primary Care Provider: Dwayne Dorado Instructions Print Language: Japanese Discharge Orders/Prescriptions Prescriptions: New oxycodone-acetaminophen 5-325 mg tablet 1 tab PO Q8H PRN PRN (Reason: Pain) 3 Days Qty: 10 0RF nitrofurantoin monohyd/m-cryst [Macrobid] 100 mg capsule 100 mg PO BID Qty: 6 0RF Rx Instructions: must administer with a meal/food phenazopyridine [Pyridium] 200 mg tablet 200 mg PO TID PRN PRN (Reason: Bladder Spasms) 7 Days Qty: 30 0RF Continued potassium chloride 10 mEq capsule, extended release 10 meq PO QDAY albuterol sulfate [ProAir HFA] 1 PUFF inhaler 1 - 2 puff inhalation Q4H PRN PRN (Reason: Asthma) Patient Comments: shortness of breath famotidine 40 mg tablet 40 mg PO QHS pantoprazole 40 mg tablet,delayed release (DR/EC) 40 mg PO DAILY fluticasone propionate 50 mcg/actuation spray,suspension 2 spray INTRANASAL DAILY amlodipine 5 mg tablet 5 mg PO DAILY ropinirole 0.25 mg tablet 0.25 mg PO QHS PRN PRN (Reason: restless legs) Eliquis 5 mg tablet 5 mg PO BID carvedilol 3.125 mg tablet 1.5625 mg PO DAILY ondansetron 4 mg tablet,disintegrating 4 mg PO Q8H PRN PRN (Reason: Nausea) 7 Days Qty: 21 0RF Referrals / Follow Up: Dwayne Dorado MD [Primary Care Provider] - Disposition Disposition (needs filled in before D/C Order can be placed): Home, Self Care
--- NOTE | 2024-06-19 14:13 | PCM.OPRPT ---
Operative Report (Standard) Operative Information Date of Procedure: 06/19/24 Pre-Operative Diagnosis: Right renal calculus Post-Operative Diagnosis: Same Surgery/Procedure Performed: Right renal extracorporeal shockwave lithotripsy carton counter feeder: No Type of Anesthesia: General RN Documented Start/Stop Times: Operation Date: 06/19/24 13:40 Case Time Into Pre-Op 06/19/24 12:13 Out of Pre-Op 06/19/24 13:48 Anesthesia Start 06/19/24 13:54 Into Room 06/19/24 13:54 Procedure Start 06/19/24 14:02 Procedure Start Time: 14:02 Procedure Stop Time: 14:41 Select all DRAINS/GRAFTS/IMPLANTS that apply: None Estimated Blood Loss: <5cc Specimen collected: No Description of surgery: The patient is a 48-year-old female with a right renal stone who now presents for surgical intervention. Informed consent was obtained. She was taken to the operating room and placed on the lithotripsy table. Anesthesia monitored the head, neck, airway, IV access and vital signs throughout the case. Once anesthesia was appropriately administered, she was aligned with the lithotripter and the stone was easily visualized adjacent to the ureteral stent proximal curl. 3000 shocks were applied to the stone which appeared to be fragmented at the conclusion of the case. She was awakened and taken to the recovery room in good condition. There were no complications during this procedure. Surgical Findings: Stone easily visualized and well fragmented at the conclusion of the case Complications Complications: No Admit VTE Documentation VTE Present on Admission: Yes VTE Mechan Device Prophylaxis: SCD's VTE Pharm Prophylaxis ordered?: Yes Reason prophylaxis not ordered: Treatment Not Indicated
--- NOTE | 2024-06-19 14:51 | PCM.POST.ANE ---
Anesthesia: Postop Eval I Current Vital Signs Temperature: 97 F Pulse Rate: 92 Blood Pressure: 133/83 Respiratory Rate: 16 Pulse Ox: 93 Oxygen Delivery Method: Room Air Assessment Airway patent: Yes Spontaneous unlabored respirations: Yes Mental status: Awake and Calm nausea: No Vomiting: No Anesthesia Complication: No Fluid Hydration Crystalloid volume administer (ml): 400 Total IV fluid infused: 400 Progress Note Anesthesia document: Postop Eval 1 completed: Yes
[2024-06-19] MEDS: Acetaminophen 325 MG Tablet 650 MG PO (15:23)
[2024-06-19] MEDS: oxyCODONE 5 MG Tablet 10 MG PO (15:24)
--- NOTE | 2024-06-20 07:59 | POSTOPAN2_ITS ---
Anesthesia Postop Eval I Sum Postop Eval Completion status Anesthesia document: Postop Eval 1 completed: Yes Anesthesia Postop Eval I Summary Anesthesia Postop Eval I Summary: Anesthesia Postop Eval I: Assessment Summary Airway patent Yes 06/19/24 14:52 JOB SUPERINTENDENT.[email or web address] Spontaneous unlabored Yes 06/19/24 14:52 JOB SUPERINTENDENT.IZABELLA respirations Mental status Awake,Calm 06/19/24 14:52 JOB SUPERINTENDENT.WAYLONOBYokasta nausea No 06/19/24 14:52 JOB SUPERINTENDENT.WAYLONOBYokasta Vomiting No 06/19/24 14:52 JOB SUPERINTENDENT.WAYLONOBYokasta Anesthesia Postop Eval I: Fluid Summary Crystalloid volume administer 400 06/19/24 14:52 JOB SUPERINTENDENT.SKOBY (ml) Colloids volume administered ( ml) Blood Product volume administered (ml) Total IV fluid infused 400 06/19/24 14:52 JOB SUPERINTENDENT.IZABELLA Anesthesia Postop Eval I: Summary Notes Anesthesia Complication No 06/19/24 14:52 JOB SUPERINTENDENT.IZABELLA Anesthesia Complication Comment: Post-operative progress note Anesthesia: Postop Eval II Evaluation Mental status: Awake Pain Level: 0 nausea: No Vomiting: No
--- NOTE | 2024-06-20 07:59 | PCM.POSTANE2 ---
Anesthesia Postop Eval I Sum Postop Eval Completion status Anesthesia document: Postop Eval 1 completed: Yes Anesthesia Postop Eval I Summary Anesthesia Postop Eval I Summary: Anesthesia Postop Eval I: Assessment Summary Airway patent Yes 06/19/24 14:52 RESIDENT CARE TECHNICIAN.[email or web address] Spontaneous unlabored Yes 06/19/24 14:52 RESIDENT CARE TECHNICIAN.IZABELLA respirations Mental status Awake,Calm 06/19/24 14:52 RESIDENT CARE TECHNICIAN.WAYLONOBYokasta nausea No 06/19/24 14:52 RESIDENT CARE TECHNICIAN.WAYLONOBYokasta Vomiting No 06/19/24 14:52 RESIDENT CARE TECHNICIAN.WAYLONOBYokasta Anesthesia Postop Eval I: Fluid Summary Crystalloid volume administer 400 06/19/24 14:52 RESIDENT CARE TECHNICIAN.SKOBY (ml) Colloids volume administered ( ml) Blood Product volume administered (ml) Total IV fluid infused 400 06/19/24 14:52 RESIDENT CARE TECHNICIAN.IZABELLA Anesthesia Postop Eval I: Summary Notes Anesthesia Complication No 06/19/24 14:52 RESIDENT CARE TECHNICIAN.IZABELLA Anesthesia Complication Comment: Post-operative progress note Anesthesia: Postop Eval II Evaluation Mental status: Awake Pain Level: 0 nausea: No Vomiting: No
== END 2024-06-19 16:15 | disposition home or self-care (01) ==
LOC: SDC 12:04 → AC 12:11
PROVIDERS: PCP Family Medicine; Referring Provider Urology; Visit Provider Urology
PROC: (CPT 50590; principal; 2024-06-19 13:30)
DX: N13.2 Hydronephrosis with renal and ureteral calculous obstruction (principal); Z87.442 Personal history of urinary calculi; Z86.711 Personal history of pulmonary embolism; Z79.01 Long term (current) use of anticoagulants; K21.9 Gastro-esophageal reflux disease without esophagitis; I10 Essential (primary) hypertension; Z90.49 Acquired absence of other specified parts of digestive tract; Z79.899 Other long term (current) drug therapy; J45.909 Unspecified asthma, uncomplicated
CPT/HCPCS: 50590; 00873; J0744; J2405

== ENCOUNTER 2024-06-27 20:01 | Observation (INO) | payer MEDICAID, SELFPAY ==
[2024-06-27 20:01] VITALS: BP 143/109; PULSE 86; RESP 20; TEMP 36.4; O2SAT 99; BMI 29.7
--- NOTE | 2024-06-27 20:46 | CT_ITS ---
STUDY: CT ABDOMEN AND PELVIS WITHOUT CONTRAST REASON FOR EXAM: Female, 48 years old. Flank pain RADIATION DOSAGE (If Supplied By Facility): CTDIvol = ( 9.19 ) mGy, DLP = ( 475.15 ) mGycm TECHNIQUE: Transaxial images were obtained from the dome of the diaphragm to the symphysis pubis without oral contrast, and without intravenous contrast. Sagittal and coronal images were reconstructed. Individualized dose optimization techniques were used for this CT. COMPARISON: 06/07/2024 FINDINGS: The visualized lung bases are unremarkable. The visualized portions of the heart are within normal limits. Normal liver. There are surgical clips in the gallbladder fossa consistent with a prior cholecystectomy. Normal spleen. Normal pancreas. Normal bilateral adrenal glands. Since the previous study, a right-sided JJ stent has been placed. The previously noted right renal pelvis calcification is no longer identified. There is persistent mild right hydronephrosis along with periureteral inflammatory stranding likely due to the presence of the ureteral stent. There is no demonstrated calcification within the right ureter or bladder. Left kidney is free of obstructive uropathy. Normal visualized stomach. Normal small intestine. Normal colon. The appendix is visualized and appears normal. Appendix is seen on coronal recon images 60 through 63. Normal abdominal aorta. Normal inferior vena cava. Normal retroperitoneum. Normal urinary bladder. Normal abdominal wall. There are diffuse degenerative changes of the visualized lumbar spine, and pelvis. CT/Abdomen/Pelvis without Cont IMPRESSION: Since the previous study, a right-sided JJ stent has been placed. There is mild right hydronephrosis. There is periureteral inflammatory stranding, both likely due to the presence of the JJ stent. There is no obstructing stone identified within the right kidney or ureter. Left kidney is free of obstructive uropathy or suspicious solid renal lesion No free intraperitoneal fluid, air, or suspicious adenopathy, normal appendix visualized Electronically Signed: Arcadio Humphreys MD at 22:29 EST ,
--- NOTE | 2024-06-27 20:48 | EDS_ITS ---
HPI <ADAM Tran - Last Filed: 06/27/24 21:55> History of Present Illness Chief Complaint: Flank Pain Narrative Narrative: Patient is a 48-year-old female with history of blood clots is on Eliquis, history of kidney stones. I saw the patient on 07 June, diagnosed with a 8 mm obstructing stone to the right UPJ. Patient on June 19, 2024 received a procedure to break the stone. Patient states that she had a stent placed. Patient states she is continue to have pain, nausea and is here for evaluation. She denies any fever or chills. She states she is still having blood in her urine. PFS <ADAM Tran - Last Filed: 06/27/24 21:55> [facility] Medical History Anemia Easy bruising Restless legs History of stress test Wears glasses Post-menopausal Pulmonary embolism History of IBS Gastric reflux Non-smoker Asthma Cardiology follow-up encounter Hypertension Home Medications ?Medication ?Instructions ?Recorded ?Last Taken ?Type albuterol sulfate 90 mcg/actuation 1 - 2 puff inhalation Q4H PRN PRN 05/09/13 01/22/24 History aerosol inhaler (ProAir HFA) Asthma amlodipine 5 mg tablet 5 mg PO DAILY blood pressure 12/04/23 06/19/24 History apixaban 5 mg tablet (Eliquis) 5 mg PO BID blood thinner 12/04/23 06/16/24 H istory famotidine 40 mg tablet 40 mg PO QHS stomach 12/04/23 05/03/24 History fluticasone propionate 50 2 spray intranasal DAILY congestion 12/04/23 01/22/24 History mcg/actuation nasal spray,suspension pantoprazole 40 mg tablet,delayed 40 mg PO DAILY reflux 12/04/23 06/19/24 History release ropinirole 0.25 mg tablet 0.25 mg PO QHS PRN PRN restless 12/04/23 01/21/24 History legs potassium chloride 10 mEq 10 meq PO QDAY supplement 03/06/24 Unknown History capsule,extended release carvedilol 3.125 mg tablet 1.5625 mg PO DAILY heart 05/05/24 06/19/24 History ondansetron 4 mg disintegrating 4 mg PO Q8H PRN PRN Nausea 7 days 05/09/24 Unknown Rx tablet #21 tabs ciprofloxacin HCl 500 mg tablet 500 mg PO BID #14 TABLETS 06/28/24 Unknown Rx ondansetron 4 mg disintegrating 4 mg PO Q8H PRN PRN Nausea #10 tabs 06/28/24 Unknown Rx tablet oxycodone 5 mg tablet 5 mg PO Q6H PRN pain 3 days #12 06/28/24 Unknown Rx tabs Allergy/AdvReac Type Severity Reaction Status Date / Time Penicillins Allergy Anaphylaxis Verified 06/27/24 20:03 naproxen (From Naprosyn) AdvReac Unknown Nausea Verified 06/27/24 20:03 codeine AdvReac Nausea Verified 06/27/24 20:03 Family History Brother Asthma Grandmother Diabetes Myocardial infarction Father Hypertension Mother Uterine cancer Surgical History History of cystoscopy History of cardiac catheterization History of laparoscopic cholecystectomy History of bladder surgery History of hysterectomy Social History Smoking Status: Never smoker ROS <ADAM Tran - Last Filed: 06/27/24 21:55> ROS ED ROS Narrative Constitutional: Negative for fever, chills, weight loss, weakness Eyes: Negative for vision loss, vision change, double vision ENT: Negative for any sore throat, ear pain, congestion Cardiovascular: Negative for any chest pain, tightness, palpitations Respiratory: Negative for any cough, sputum production, hemoptysis, dyspnea, dyspnea on exertion, orthopnea Gastrointestinal: Negative for any diarrhea, constipation, blood in stool, blood in vomit. Positive for right-sided flank pain, right sided lower abdominal pain : Negative for any urinary frequency, dysuria, retention, blood in urine Muscle skeletal: Negative for any neck pain, back pain Neurological: Negative for any headache, syncope, dizziness Skin: Negative for any rashes, itching, abrasions, lacerations Psychiatric: Negative for any depression, anxiety, stress, suicidal ideation, homicidal ideation Hematologic: Negative for any excessive bruising, easy bleeding EXAM <ADAM Tran - Last Filed: 06/27/24 21:55> Physical Exam Narrative Exam Narrative: Vital signs reviewed. HEET: Head normocephalic atraumatic, TMs clear bilaterally. Posterior pharynx is clear, moist mucous membranes. Nares clear bilaterally. Neck: Supple with no lymphadenopathy or tenderness. No signs of meningismus. Cardiac: Regular rate and rhythm no murmurs gallops or rubs, equal peripheral pulses bilaterally. Respiratory: Lungs clear to auscultation bilaterally. No chest tenderness. Abdomen: Soft, nontender, nondistended. No abdominal bruit or pulsatile masses. No hepatosplenomegaly Extremities: No peripheral edema, no signs of gross trauma or deformity. Active full range of motion of all extremities. Neuro: Cranial nerves II through XII intact, no focal neurological deficits. Skin: Clean dry and intact with no rash, purpura, petechiae, vesicles or pustules. Backs/flank: Positive right sided CVA tenderness no midline spinal tenderness, no deformity. Psych: Normal mood and affect. No SI, HI or acute psychosis. Const Vital Signs: 06/27/24 20:01 06/27/24 21:03 06/27/24 22:01 Temperature 97.5 F L 98 F Temperature Source Temporal Oral Pulse Rate 86 78 71 Respiratory Rate 20 H 18 18 Blood Pressure 143/109 H 152/103 H 142/81 H Blood Pressure Mean 120 119 101 Pulse Ox 99 94 97 Oxygen Delivery Method Room Air Room Air Room Air 06/28/24 00:00 06/28/24 00:38 Temperature 98 F Temperature Source Pulse Rate 74 78 Respiratory Rate 18 20 H Blood Pressure 137/78 H 137/78 H Blood Pressure Mean 97 97 Pulse Ox 94 95 Oxygen Delivery Method Room Air Positive well nourished, well developed and obese General Appearance ED: well developed Nutritional Appearance: obese <Dr. Albert Sykes DO - Last Filed: 06/28/24 01:36> Physical Exam Const Vital Signs: 06/27/24 20:01 06/27/24 21:03 06/27/24 22:01 Temperature 97.5 F L 98 F Temperature Source Temporal Oral Pulse Rate 86 78 71 Respiratory Rate 20 H 18 18 Blood Pressure 143/109 H 152/103 H 142/81 H Blood Pressure Mean 120 119 101 Pulse Ox 99 94 97 Oxygen Delivery Method Room Air Room Air Room Air 06/28/24 00:00 06/28/24 00:38 Temperature 98 F Temperature Source Pulse Rate 74 78 Respiratory Rate 18 20 H Blood Pressure 137/78 H 137/78 H Blood Pressure Mean 97 97 Pulse Ox 94 95 Oxygen Delivery Method Room Air [facility] <Jean DuranADAM - Last Filed: 06/27/24 21:55> [facility] Lab Data Labs: Laboratory Results - last 24 hr 06/27/24 06/27/24 21:10 22:25 WBC 8.9 RBC 4.07 L Hgb 12.6 Hct 37.0 MCV 90.9 MCH 31.0 MCHC 34.1 RDW Std Deviation 41.9 RDW Coeff of Bibi 12.8 Plt Count 376 MPV 8.7 Immature Gran % (Auto) 0.200 Neut % (Auto) 45.6 L Lymph % (Auto) 43.5 H Kenedy % (Auto) 7.8 Eos % (Auto) 2.5 Baso % (Auto) 0.4 Absolute Neuts (auto) 4.1 Absolute Lymphs (auto) 3.87 Nucleated RBC % 0 Sodium 142 Potassium 3.2 L Chloride 110 H Carbon Dioxide 26.0 Anion Gap 6 BUN 17 Creatinine 1.01 Estim Creat Clear Calc 72.48 Est GFR (MDRD) Af Amer 75 Est GFR (MDRD) Non-Af 62 BUN/Creatinine Ratio 16.8 Glucose 117 H Calcium 9.1 Total Bilirubin 0.30 AST 24 ALT 35 Alkaline Phosphatase 81 Total Protein 7.4 Albumin 3.5 Globulin 3.9 Albumin/Globulin Ratio 0.9 Lipase 69 Urine Color Red Urine Clarity Cloudy Urine pH 6.5 Ur Specific Eminence 1.015 Urine Protein 100 H Urine Glucose (UA) Normal Urine Ketones 5 H Urine Occult Blood 250 H Urine Nitrite Positive H Urine Bilirubin Negative Urine Urobilinogen 1 H Ur Leukocyte Esterase 100 H Urine RBC > 100 SEEN Urine WBC 50-100 SEEN Ur Squamous Epith Cells 5-10 SEEN Urine Bacteria 1+ Urine Mucus 1+ Radiography Diagnostic Testing: Clinical Impression(s) from Imaging Studies Abdomen/Pelvis CT 06/27/24 20:46 IMPRESSION: Since the previous study, a right-sided JJ stent has been placed. There is mild right hydronephrosis. There is periureteral inflammatory stranding, both likely due to the presence of the JJ stent. There is no obstructing stone identified within the right kidney or ureter. Left kidney is free of obstructive uropathy or suspicious solid renal lesion No free intraperitoneal fluid, air, or suspicious adenopathy, normal appendix visualized Electronically Signed: Arcadio Humphreys MD at 22:29 EST , Treatment and Re-Evaluation :: Differential diagnosis includes however is not limited to: Recurrent kidney stone to the right side, stent failure, hydronephrosis, pyelonephritis, UTI, intractable back pain Patient appears generally well, vital signs are stable, patient is nontoxic- appearing. Presenting to the [facility] apartment with ongoing pain to the right flank, right abdomen post lithotripsy of the right 8 mm obstructing stone. Patient will receive repeat laboratory values, IV fluids, Zofran IV Dilaudid. Patient was seen a CT scan of the abdomen pelvis without contrast. Urinalysis will be obtained. All radiologic examinations were read, [place] [facility] [place] [place] attending. From these reads, a plan of care will be put in place. Patient's laboratory values showed no leukocytosis, patient's hemoglobin is stable at 12.6. Patient's chemistries show potassium of 3.2, chloride of 110, creatinine baseline at 1. Glucose 117, lipase was negative. Currently waiting CT scan of the abdomen pelvis without contrast. <Dr. Albert Sykes, DO - Last Filed: 06/28/24 01:36> [facility] Lab Data Labs: Laboratory Results - last 24 hr 06/27/24 06/27/24 21:10 22:25 WBC 8.9 RBC 4.07 L Hgb 12.6 Hct 37.0 MCV 90.9 MCH 31.0 MCHC 34.1 RDW Std Deviation 41.9 RDW Coeff of Bibi 12.8 Plt Count 376 MPV 8.7 Immature Gran % (Auto) 0.200 Neut % (Auto) 45.6 L Lymph % (Auto) 43.5 H Kenedy % (Auto) 7.8 Eos % (Auto) 2.5 Baso % (Auto) 0.4 Absolute Neuts (auto) 4.1 Absolute Lymphs (auto) 3.87 Nucleated RBC % 0 Sodium 142 Potassium 3.2 L Chloride 110 H Carbon Dioxide 26.0 Anion Gap 6 BUN 17 Creatinine 1.01 Estim Creat Clear Calc 72.48 Est GFR (MDRD) Af Amer 75 Est GFR (MDRD) Non-Af 62 BUN/Creatinine Ratio 16.8 Glucose 117 H Calcium 9.1 Total Bilirubin 0.30 AST 24 ALT 35 Alkaline Phosphatase 81 Total Protein 7.4 Albumin 3.5 Globulin 3.9 Albumin/Globulin Ratio 0.9 Lipase 69 Urine Color Red Urine Clarity Cloudy Urine pH 6.5 Ur Specific Eminence 1.015 Urine Protein 100 H Urine Glucose (UA) Normal Urine Ketones 5 H Urine Occult Blood 250 H Urine Nitrite Positive H Urine Bilirubin Negative Urine Urobilinogen 1 H Ur Leukocyte Esterase 100 H Urine RBC > 100 SEEN Urine WBC 50-100 SEEN Ur Squamous Epith Cells 5-10 SEEN Urine Bacteria 1+ Urine Mucus 1+ Radiography Diagnostic Testing: Clinical Impression(s) from Imaging Studies Abdomen/Pelvis CT 06/27/24 20:46 IMPRESSION: Since the previous study, a right-sided JJ stent has been placed. There is mild right hydronephrosis. There is periureteral inflammatory stranding, both likely due to the presence of the JJ stent. There is no obstructing stone identified within the right kidney or ureter. Left kidney is free of obstructive uropathy or suspicious solid renal lesion No free intraperitoneal fluid, air, or suspicious adenopathy, normal appendix visualized Electronically Signed: Arcadio Humphreys MD at 22:29 EST Reading Location ID and State: [address] [place] [address] , Service support , Treatment and Re-Evaluation :: Differential diagnosis includes however is not limited to: Recurrent kidney stone to the right side, stent failure, hydronephrosis, pyelonephritis, UTI, intractable back pain Patient appears generally well, vital signs are stable, patient is nontoxic- appearing. Presenting to the [facility] with ongoing pain to the right flank, right abdomen post lithotripsy of the right 8 mm obstructing stone. Patient will receive repeat laboratory values, IV fluids, Zofran IV Dilaudid. Patient was seen a CT scan of the abdomen pelvis without contrast. Urinalysis will be obtained. All radiologic examinations were read, reviewed by the emergency department attending. From these reads, a plan of care will be put in place. Patient's laboratory values showed no leukocytosis, patient's hemoglobin is stable at 12.6. Patient's chemistries show potassium of 3.2, chloride of 110, creatinine baseline at 1. Glucose 117, lipase was negative. Currently waiting CT scan of the abdomen pelvis without contrast. ED attending note: I evaluated the patient in conjunction with the [facility]. I agree with his/her statements and above findings. I have personally performed a face to face assessment of the patient and have reviewed the [facility] Note. I performed a substantive portion of the visit including all aspects of the following. I personally saw the patient performed chart review, physical exam, reviewed labs, imaging (if obtained), and formulated a treatment and management plan. 48-year-old female presents status post right renal extracorporeal shockwave lithotripsy on 06/19/[address] Disla. Presents with right flank pain. Patient right CVA tenderness on exam. CT scan showed stranding about the right ureter, urine was positive for signs of urinary formation, concern for UTI/pyelonephritis. Given patient's nausea, recent operation presents of the stent I did consult urology spoke with Dr. Disla. Dr. Disla recommended a p.o. trial with ciprofloxacin. Dr. Disla noted the patient tolerate p.o. she is appropriate discharge home. P.o. trials attempted with oral ciprofloxacin however patient cannot tolerate p.o. and had another episode of nonbloody nonbilious vomitus. Given intractable nausea and vomiting, signs of pyelonephritis and need for IV antibiotics patient be admitted. I sent the patient's urine for culture. Gave her a dose of IV ciprofloxacin here in the emergency department. This note was generated with [employer] dictation software. It may contain incorrect words, spelling, and punctuation that were not noted in review of the chart prior to signing. Discharge Plan Triage Chief Complaint: Flank Pain ED Midlevel Provider: Jean Duran ED Provider: Albert ySkes Dx/Rx/DC Orders Clinical Impression: Pyelonephritis Primary Care Provider: Dwayne Dorado Disposition Disposition: Home, Self Care
[2024-06-27 21:03] VITALS: BP 152/103; PULSE 78; RESP 18; TEMP 36.6; O2SAT 94
[2024-06-27] MEDS: 0.9% Normal Saline (1000mL) 1,000 ML 999 ML IV (21:09)
[2024-06-27] MEDS: Ondansetron 4 MG/2 ML Vial IV (21:10)
[2024-06-27] MEDS: HYDROmorphone 1 MG/ML Syringe IV (21:10)
[2024-06-27 21:25] LABS: Absolute Lymphocyte Count 3.87 X10^3/uL (0.83-4.51); Absolute Neutrophil Count 4.1 X10^3/uL (2.0-7.7); Basophil# 0.04 X10^3/uL; Basophil% 0.4 % (0-1); Eosinophil# 0.22 X10^3/uL; Eosinophils% 2.5 % (0-5); Hemoglobin 12.6 g/dL (12.0-15.0); Lymphocyte # 3.87 X10^3/ul (0.83-4.51); Lymphocyte % 43.5 % (19-41); Mean Corp Hgb Conc 34.1 g/dL (32-36); Mean Corpuscular Volume 90.9 fL (81-99); Mean Platelet Vol. 8.7 fl (6.2-12.0); Monocyte# 0.69 X10^3/uL; Monocyte% 7.8 % (0-10); NRBC Flagged by Analyzer 0 % (0-5); Neutrophil # 4.05 X10^3/uL (2.7-7.7); Neutrophil % 45.6 % (47-70); Platelet Count 376 K/mm3 (150-450); RBC Distribution Width CV 12.8 % (11.6-14.6); RBC Distribution Width SD 41.9 fl (35.1-43.9); Red Blood Count 4.07 M/mm3 (4.2-5.4); White Blood Count 8.9 K/mm3 (4.4-11.0)
[2024-06-27 21:44] LABS: ALB/GLOB Ratio 0.9 RATIO (0.9-2.4); AST(SGOT) 24 U/L (15-37); Alanine Aminotransfer ALT/SGPT 35 U/L (13-56); Albumin, Serum 3.5 g/dL (3.2-5.0); Alkaline Phosphatase 81 U/L (45-117); Anion Gap 6 (5-15); BUN 17 mg/dL (7-18); BUN/Creat Ratio 16.8 RATIO (10-20); Calcium,Total 9.1 mg/dL (8.5-10.1); Chloride 110 mmol/L (98-107); Creatinine, Serum 1.01 mg/dL (0.55-1.02); EST Glomerular Filtration Rate 62 mL/min (>60); Est Glom Filt Rate - Afr Amer 75 mL/min (>60); Estimated Creatinine Clearance 72.48 ml/min; Globulin 3.9 g/dL (2.2-4.2); Glucose 117 mg/dL (74-106); Lipase 69 U/L (13-75); Potassium 3.2 mmol/L (3.5-5.1); Protein, Total 7.4 g/dL (6.4-8.2); Sodium Level 142 mmol/L (136-145)
[2024-06-27 22:01] VITALS: BP 142/81; PULSE 71; RESP 18; O2SAT 97
[2024-06-27 22:49] LABS: Color, Urine Red (Yellow); Glucose, Dipstick Normal (Normal); Ketone-Dipstick 5 mg/dl (Negative); Leukocyte Esterase-Dipstick 100 /ul (Negative); Nitrite-Dipstick Positive (Negative); Occult Blood-Urine 250 /ul (Negative); Protein-Dipstick 100 mg/dl (Negative); Specific Gravity, Urine 1.015 (1.002-1.030); Urine Bilirubin Dipstick Negative (Negative); Urine Clarity Cloudy (Clear); Urine Urobilinogen 1 mg/dl (Normal); Urine pH 6.5 (5.0 - 8.0)
[2024-06-27 23:17] LABS: Red Blood Cells-Urine > 100 SEEN /hpf (0-5); Squamous Epithelial Cells - UA 5-10 SEEN /hpf (5-10); White Blood Cells 50-100 SEEN /hpf (0-5)
[2024-06-27 23:18] LABS: Bacteria 1+ /hpf (None Seen); Mucous, Urine 1+ /hpf (<or=2+)
[2024-06-28] VITALS (7 sets, daily range): BP systolic 126–147; BP diastolic 66–101; PULSE 55–78; RESP 16–20; TEMP 36.3–36.8; O2SAT 94–98; BMI 29.7
[2024-06-28] MEDS: Ketorolac 15 MG/ML Vial IV ×2 (00:34→07:27)
[2024-06-28] MEDS: Ciprofloxacin 500 MG Tablet PO (00:35)
[2024-06-28] MEDS: HYDROmorphone 1 MG/ML Syringe IV (00:35)
[2024-06-28] MEDS: Ciprofloxacin 400 MG/200 ML BAG 200 MG IV ×2 (01:52→09:48)
[2024-06-28] MEDS: oxyCODONE 5 MG Tablet 10 MG PO ×3 (03:45→13:46)
[2024-06-28] MEDS: Lactated Ringers 1,000 ML 125 ML IV (03:45)
[2024-06-28] MEDS: proMETHazine 25 MG/ML Syringe IM (03:46)
[2024-06-28] MEDS: Acetaminophen 500 MG Tablet 1000 MG PO ×2 (05:25→13:46)
[2024-06-28] MEDS: Famotidine 20 MG Tablet PO (09:09)
[2024-06-28] MEDS: Ondansetron 4 MG/2 ML Vial IV (12:11)
[2024-06-28 12:34] LABS: Absolute Lymphocyte Count 2.96 X10^3/uL (0.83-4.51); Absolute Neutrophil Count 2.8 X10^3/uL (2.0-7.7); Basophil# 0.03 X10^3/uL; Basophil% 0.5 % (0-1); Eosinophil# 0.21 X10^3/uL; Eosinophils% 3.2 % (0-5); Hemoglobin 11.5 g/dL (12.0-15.0); Lymphocyte # 2.96 X10^3/ul (0.83-4.51); Lymphocyte % 45.7 % (19-41); Mean Corp Hgb Conc 32.9 g/dL (32-36); Mean Corpuscular Hgb 30.7 pg (27.0-32.0); Mean Corpuscular Volume 93.3 fL (81-99); Mean Platelet Vol. 8.7 fl (6.2-12.0); Monocyte# 0.51 X10^3/uL; Monocyte% 7.9 % (0-10); NRBC Flagged by Analyzer 0 % (0-5); Neutrophil # 2.75 X10^3/uL (2.7-7.7); Neutrophil % 42.5 % (47-70); Platelet Count 317 K/mm3 (150-450); RBC Distribution Width CV 12.9 % (11.6-14.6); RBC Distribution Width SD 43.9 fl (35.1-43.9); Red Blood Count 3.75 M/mm3 (4.2-5.4); White Blood Count 6.5 K/mm3 (4.4-11.0)
[2024-06-28 13:01] LABS: Anion Gap 3 (5-15); BUN 12 mg/dL (7-18); BUN/Creat Ratio 12.3 RATIO (10-20); Calcium,Total 8.3 mg/dL (8.5-10.1); Chloride 107 mmol/L (98-107); Creatinine, Serum 0.97 mg/dL (0.55-1.02); EST Glomerular Filtration Rate 65 mL/min (>60); Est Glom Filt Rate - Afr Amer 79 mL/min (>60); Estimated Creatinine Clearance 75.38 ml/min; Glucose 108 mg/dL (74-106); Potassium 3.4 mmol/L (3.5-5.1); Sodium Level 139 mmol/L (136-145)
--- NOTE | 2024-06-28 15:09 | PCM.HP.STD ---
HPI - General General Date of Admission: 06/28/24 Date of Service: 06/28/24 Chief Complaint: Nausea and flank pain HPI Narrative LETA RIOS, is a 48 F who had a right renal extracorporal shockwave lithotripsy approximately 9 days ago and she had already had a right ureteral stent at that time. About 5 days ago she reports she started having fatigue and nausea. She continued to feel worse until she presented to the emergency room yesterday with vomiting. She was admitted secondary to right sided flank pain and nausea with vomiting up oral medications in the emergency room. She reports that she is feeling about the same as yesterday but willing to try going home. She has kept some fluids down and food today. The pain that she reports is in her right flank and is worse when she is voiding. She is still having gross hematuria intermittently. There is no dysuria, increased urgency or frequency. She reports that she did have a fever to 101 ?F 4 or 5 days ago that resolved with ibuprofen and did not recur. Today she has voided twice. [facility] Medical History (Updated 06/28/24 @ 15:[address] Anyi Disla MD) Urinary tract infection Flank pain Anemia Easy bruising Restless legs History of stress test Wears glasses Post-menopausal Pulmonary embolism History of IBS Gastric reflux Non-smoker Asthma Cardiology follow-up encounter Hypertension Home Medications ?Medication ?Instructions ?Recorded ?Last Taken ?Type albuterol sulfate 90 mcg/actuation 1 - 2 puff inhalation Q4H PRN PRN 05/09/13 01/22/24 History aerosol inhaler (ProAir HFA) Asthma amlodipine 5 mg tablet 5 mg PO DAILY blood pressure 12/04/23 06/19/24 History apixaban 5 mg tablet (Eliquis) 5 mg PO BID blood thinner 12/04/23 06/16/24 History famotidine 40 mg tablet 40 mg PO QHS stomach 12/04/23 05/03/24 History fluticasone propionate 50 2 spray intranasal DAILY congestion 12/04/23 01/22/24 History mcg/actuation nasal spray,suspension pantoprazole 40 mg tablet,delayed 40 mg PO DAILY reflux 12/04/23 06/19/24 History release ropinirole 0.25 mg tablet 0.25 mg PO QHS PRN PRN restless 12/04/23 01/21/24 History legs potassium chloride 10 mEq 10 meq PO QDAY supplement 03/06/24 Unknown History capsule,extended release carvedilol 3.125 mg tablet 1.5625 mg PO DAILY heart 05/05/24 06/19/24 History ondansetron 4 mg disintegrating 4 mg PO Q8H PRN PRN Nausea 7 days 05/09/24 Unknown Rx tablet #21 tabs ciprofloxacin HCl 500 mg tablet 500 mg PO BID #14 TABLETS 06/28/24 Unknown Rx ondansetron 4 mg disintegrating 4 mg PO Q8H PRN PRN Nausea #10 tabs 06/28/24 Unknown Rx tablet oxycodone 5 mg tablet 5 mg PO Q6H PRN pain 3 days #12 06/28/24 Unknown Rx tabs Allergy/AdvReac Type Severity Reaction Status Date / Time Penicillins Allergy Anaphylaxis Verified 06/27/24 20:03 naproxen (From Naprosyn) AdvReac Unknown Nausea Verified 06/27/24 20:03 codeine AdvReac Nausea Verified 06/27/24 20:03 Family History Brother Asthma Grandmother Diabetes Myocardial infarction Father Hypertension Mother Uterine cancer Surgical History History of cystoscopy History of cardiac catheterization History of laparoscopic cholecystectomy History of bladder surgery History of hysterectomy Social History Smoking Status: Never smoker ROS Constitutional Constitutional: Reports systems reviewed and no addt'l complaints, except as documented, fatigue and lethargy; Denies chills or fever(s) Eyes Eyes: Reports systems reviewed and no addt'l complaints, except as documented ENT HEENT: Reports systems reviewed and no addt'l complaints, except as documented Cardiovascular Cardiovascular: Reports systems reviewed and no addt'l complaints, except as documented, nausea and vomiting; Denies dyspnea or tachypnea Respiratory/Chest Respiratory/Chest: Reports systems reviewed and no addt'l complaints, except as documented; Denies cough or dyspnea Gastrointestinal Gastrointestinal: Reports systems reviewed and no addt'l complaints, except as documented, abdominal pain, diarrhea, nausea and vomiting Genitourinary Genitourinary: Reports systems reviewed and no addt'l complaints, except as documented, flank pain and hematuria; Denies difficulty urinating, dysuria, urinary frequency, urinary hesitancy or urinary urgency Musculoskeletal Musculoskeletal: Reports back pain Integumentary Integumentary: Reports systems reviewed and no addt'l complaints, except as documented Neurologic Neurologic: Reports systems reviewed and no addt'l complaints, except as documented Psychiatric Psychiatric: Reports systems reviewed and no addt'l complaints, except as documented Endocrine Endocrinology: Reports systems reviewed and no addt'l complaints, except as documented Hematologic/Lymphatic Hematologic/Lymphatic: Reports systems reviewed and no addt'l complaints, except as documented Allergic/Immunologic Allergic/Immunologic: Reports systems reviewed and no addt'l complaints, except as documented Vital Signs Vital Signs Vital Signs: 06/27/24 20:01 06/27/24 21:03 06/27/24 22:01 Temperature 97.5 F L 98 F Temperature Source Temporal Oral Pulse Rate 86 78 71 Respiratory Rate 20 H 18 18 Respiratory Effort Respiratory Depth Respiratory Pattern Blood Pressure 143/109 H 152/103 H 142/81 H Blood Pressure Mean 120 119 101 Blood Pressure Source Blood Pressure Position Blood Pressure Location Pulse Ox 99 94 97 Oxygen Delivery Method Room Air Room Air Room Air 06/28/24 00:00 06/28/24 00:38 06/28/24 01:54 Temperature 98 F Temperature Source Pulse Rate 74 78 72 Respiratory Rate 18 20 H 16 Respiratory Effort Respiratory Depth Respiratory Pattern Blood Pressure 137/78 H 137/78 H 144/96 H Blood Pressure Mean 97 97 112 Blood Pressure Source Blood Pressure Position Blood Pressure Location Pulse Ox 94 95 94 Oxygen Delivery Method Room Air Room Air 06/28/24 02:46 06/28/24 02:53 06/28/24 07:39 Temperature 97.4 F L Temperature Source Oral Pulse Rate 71 Respiratory Rate 16 Respiratory Effort Normal Non-Labored Respiratory Depth Normal Respiratory Pattern Normal Blood Pressure 147/101 H Blood Pressure Mean 116 Blood Pressure Source Monitor Blood Pressure Position Semi-Fowlers Blood Pressure Location Left Arm Pulse Ox 94 94 Oxygen Delivery Method Room Air Room Air Room Air 06/28/24 09:02 06/28/24 09:04 06/28/24 14:35 Temperature 97.5 F L 98.3 F Temperature Source Temporal Temporal Pulse Rate 55 L 77 Respiratory Rate 18 18 Respiratory Effort Normal Non-Labored Respiratory Depth Normal Respiratory Pattern Normal Blood Pressure 126/82 H 133/66 H Blood Pressure Mean 96 88 Blood Pressure Source Monitor Monitor Blood Pressure Position Semi-Fowlers Semi-Fowlers Blood Pressure Location Left Arm Left Arm Pulse Ox 98 95 Oxygen Delivery Method Room Air Room Air Room Air 06/28/24 14:37 Temperature Temperature Source Pulse Rate Respiratory Rate Respiratory Effort Normal Non-Labored Respiratory Depth Normal Respiratory Pattern Normal Blood Pressure Blood Pressure Mean Blood Pressure Source Blood Pressure Position Blood Pressure Location Pulse Ox Oxygen Delivery Method Weight Weight: 80.995 kg Body Mass Index (BMI) 29.7 Physical Exam Const alert, oriented x3 and no apparent distress General Appearance: cooperative, comfortable and well developed HEENT normocephalic, head/scalp atraumatic, hearing grossly normal bilaterally, external ears normal, external nose normal and moist oral mucous membranes Eyes General Eye: normal appearance of both eyes Neck supple General: normal visual inspection and trachea midline Lymph Lymphatic: no lymphedema noted Chest inspection of chest normal Chest: symmetrical chest wall rise Resp normal respiratory effort, normal air movement and no retractions Cardio regular rate GI soft to palpation and non-distended GI Narrative: Mildly tender Bladder / Kidney Exam: CVA tenderness right Back/Spine General Back: CVA tenderness right Extremity normal to inspection Skin no rashes or lesions noted, no jaundice, no petechiae and no mottling Neuro oriented x3, CN's II-XII intact bilaterally and moves all extremities Psych mental status grossly normal, thought process normal and cooperative Results Lab / Micro Data 06/28/24 12:18 06/28/24 12:18 Labs: Laboratory Results - last 24 hr 06/27/24 21:10: WBC 8.9, RBC 4.07 L, Hgb 12.6, Hct 37.0, MCV 90.9, MCH 31.0, MCHC 34.1, RDW Std Deviation 41.9, RDW Coeff of Bibi 12.8, Plt Count 376, MPV 8.7, Immature Gran % (Auto) 0.200, Neut % (Auto) 45.6 L, Lymph % (Auto) 43.5 H, [place] % (Auto) 7.8, Eos % (Auto) 2.5, Baso % (Auto) 0.4, Absolute Neuts (auto) 4.1, Absolute Lymphs (auto) 3.87, Nucleated RBC % 0, Sodium 142, Potassium 3.2 L, Chloride 110 H, Carbon Dioxide 26.0, Anion Gap 6, BUN 17, Creatinine 1.01, Estim Creat Clear Calc 72.48, Est GFR (MDRD) Af Amer 75, Est GFR (MDRD) Non-Af 62, BUN/Creatinine Ratio 16.8, Glucose 117 H, Calcium 9.1, Total Bilirubin 0.30, AST 24, ALT 35, Alkaline Phosphatase 81, Total Protein 7.4, Albumin 3.5, Globulin 3.9, Albumin/Globulin Ratio 0.9, Lipase 69 06/27/24 22:25: Urine Color Red, Urine Clarity Cloudy, Urine pH 6.5, Ur Specific [place]out 1.015, Urine Protein 100 H, Urine Glucose (UA) Normal, Urine Ketones 5 H, Urine Occult Blood 250 H, Urine Nitrite Positive H, Urine Bilirubin Negative, Urine Urobilinogen 1 H, Ur Leukocyte Esterase 100 H, Urine RBC > 100 SEEN, Urine WBC 50-100 SEEN, Ur Squamous Epith Cells 5-10 SEEN, Urine Bacteria 1+, Urine Mucus 1+ 06/28/24 12:18: WBC 6.5, RBC 3.75 L, Hgb 11.5 L, Hct 35.0 L, MCV 93.3, MCH 30.7, MCHC 32.9, RDW Std Deviation 43.9, RDW Coeff of Bibi 12.9, Plt Count 317, MPV 8.7, Immature Gran % (Auto) 0.200, Neut % (Auto) 42.5 L, Lymph % (Auto) 45.7 H, [place] % (Auto) 7.9, Eos % (Auto) 3.2, Baso % (Auto) 0.5, Absolute Neuts (auto) 2.8, Absolute Lymphs (auto) 2.96, Nucleated RBC % 0, Sodium 139, Potassium 3.4 L, Chloride 107, Carbon Dioxide 29.0, Anion Gap 3 L, BUN 12, Creatinine 0.97, Estim Creat Clear Calc 75.38, Est GFR (MDRD) Af Amer 79, Est GFR (MDRD) Non-Af 65, BUN/Creatinine Ratio 12.3, Glucose 108 H, Calcium 8.3 L Imaging Radiology Impression Abdomen/Pelvis CT 06/27/24 20:46 IMPRESSION: Since the previous study, a right-sided JJ stent has been placed. There is mild right hydronephrosis. There is periureteral inflammatory stranding, both likely due to the presence of the JJ stent. There is no obstructing stone identified within the right kidney or ureter. Left kidney is free of obstructive uropathy or suspicious solid renal lesion No free intraperitoneal fluid, air, or suspicious adenopathy, normal appendix visualized Electronically Signed: Arcadio Humphreys MD at 22:29 EST , Assessment & Plan Assessment/Plan (1) Nausea: (2) Flank pain: (3) Urinary tract infection: PLAN: Plan Discharge home today with Cipro, Zofran, pain medication Plan for follow-up on urine culture and cystoscopy with ureteral stent removal in the office this week I discussed with the patient that there is possibility for a gastroenteritis as a source of her nausea, vomiting and diarrhea. She does have evidence of urinary tract infection and she clearly does have stent pain. There has been no fever since admission, tachycardia and her laboratory studies are essentially normal. She is aware that if symptoms worsen, she will get in touch with me through the answering service and otherwise I will see her on Sunday in the office.
--- NOTE | 2024-06-28 15:17 | DCINST_ITS ---
Discharge Instructions Diet Discharge Diet: No restrictions Activity Discharge Activity: Return to Normal Activity Dressing / Incision Call your doctor if you observe: Fever of 101 or Higher, Inability to urinate and Inability to have a bowel movement Follow Up Care Please Follow Up With: Anyi Disla MD When: In the office on Sunday morning at 8:30am for cystoscopy and ureteral stent removal Test Results: Test results from this visit will be discussed in further detail at your follow- up appointment, if applicable. Discharge Plan Admission Admit Date/Time: 06/28/24 03:08 Attending Provider: Anyi Disla Primary Care Provider: Dwayne Dorado Instructions Patient Instructions: Having a Ureteral Stent, ED Pyelonephritis, Female (Adult) Additional Instructions / Restrictions: Thank you for trusting us with your care today! Your labs images were consistent with likely urine/kidney infection. This treated antibiotics. Please take antibiotics until course is complete. Please take Zofran as needed for nausea and vomiting Please take Tylenol (2 pills, 650 mg), ibuprofen (2 pills, 400 mg) every 6 hours as needed for pain and fever control. Please take oxycodone for breakthrough pain if the above regimen does not control your pain adequately. Please return to the emergency department if your symptoms change or worsen. Specifically vomit and cannot tolerate antibiotics. If you develop severe fever or severe pain that is not controlled by the above regimen. Please follow with your primary care physician for further outpatient evaluation and management. Discharge Orders/Prescriptions Prescriptions: New oxycodone 5 mg tablet 5 mg PO Q6H PRN (Reason: pain) 3 Days Qty: 12 0RF ondansetron 4 mg tablet,disintegrating 4 mg PO Q8H PRN PRN (Reason: Nausea) Qty: 10 0RF ciprofloxacin HCl 500 mg tablet 500 mg PO BID Qty: 14 0RF No Action potassium chloride 10 mEq capsule, extended release 10 meq PO QDAY albuterol sulfate [ProAir HFA] 1 PUFF inhaler 1 - 2 puff inhalation Q4H PRN PRN (Reason: Asthma) Patient Comments: shortness of breath famotidine 40 mg tablet 40 mg PO QHS pantoprazole 40 mg tablet,delayed release (DR/EC) 40 mg PO DAILY fluticasone propionate 50 mcg/actuation spray,suspension 2 spray INTRANASAL DAILY amlodipine 5 mg tablet 5 mg PO DAILY ropinirole 0.25 mg tablet 0.25 mg PO QHS PRN PRN (Reason: restless legs) Eliquis 5 mg tablet 5 mg PO BID carvedilol 3.125 mg tablet 1.5625 mg PO DAILY ondansetron 4 mg tablet,disintegrating 4 mg PO Q8H PRN PRN (Reason: Nausea) 7 Days Qty: 21 0RF Referrals / Follow Up: Dwayne Dorado MD [Primary Care Provider] - Anyi Disla MD [Med Staff - Active Staff] - Disposition Disposition (needs filled in before D/C Order can be placed): Home, Self Care
== END 2024-06-28 16:44 | disposition home or self-care (01) ==
LOC: ED 06-28 00:54 → MS3 06-28 01:36
PROVIDERS: Nurse Practitioner; Admitting Provider Urology; Emergency Provider Emergency Medicine; PCP Family Medicine; Visit Provider Urology
DX: N12 Tubulo-interstitial nephritis, not specified as acute or chronic (principal); I10 Essential (primary) hypertension; K21.9 Gastro-esophageal reflux disease without esophagitis; Z86.718 Personal history of other venous thrombosis and embolism; Z79.01 Long term (current) use of anticoagulants; J45.909 Unspecified asthma, uncomplicated; Z86.711 Personal history of pulmonary embolism; Z79.899 Other long term (current) drug therapy
CPT/HCPCS: 36415; 74176; 80048; 80053; 81001; 83690; 85025; 87086; 87088; 96361; 96365; 96366; 96372; 96375; 96376; 99221; 99283; A4216; G0378; J0744; J2405

== ENCOUNTER → 2024-07-08 | Outpatient (CLI) | payer MEDICAID, SELFPAY ==
--- NOTE | 2024-07-08 15:31 | RAD_ITS ---
HISTORY: KUB- KIDNEY STONE. TECHNIQUE: XR Abdomen 1 View. COMPARISON: CT 06/27/2024. FINDINGS: BOWEL GAS PATTERN: No dilated bowel loops identified. Moderate stool in the colon. FREE AIR: Not assessed on supine view. CALCIFICATIONS: Multiple pelvic phleboliths observed. Limited evaluation of the right renal lower pole due to overlying bowel gas. Right ureteral stent removed. 3 mm calcification in the region of the right distal ureter. BONES: Unremarkable. SOFT TISSUES: Metallic jewelry at the chest wall and umbilicus. Right upper quadrant surgical clips RAD/Abdomen Single View IMPRESSION: Interval removal of right ureteral stent. Possible 3 mm right distal ureteral calculus. Electronically Signed: Anitra Moya MD at 10:01 EST ,
== END | disposition home or self-care (01) ==
PROVIDERS: PCP Family Medicine; Referring Provider Urology; Visit Provider Urology
DX: N20.0 Calculus of kidney (principal)
CPT/HCPCS: 74018

== ENCOUNTER 2024-07-30 15:26 | Emergency (ER) | payer MEDICAID, SELFPAY ==
[2024-07-30 15:27] VITALS: BP 140/92; PULSE 88; RESP 16; TEMP 36.3; O2SAT 99; BMI 27.9
[2024-07-30 15:29] VITALS: BP 140/72; PULSE 88; RESP 16; TEMP 36.3; O2SAT 99
[2024-07-30 17:54] VITALS: BP 133/84; PULSE 63; RESP 18; O2SAT 97
[2024-07-30 17:59] LABS: Mucous, Urine 0 SEEN /hpf (<or=2+); Red Blood Cells-Urine 0 SEEN /hpf (0-5)
[2024-07-30 18:01] LABS: Absolute Lymphocyte Count 2.92 X10^3/uL (0.83-4.51); Absolute Neutrophil Count 3.5 X10^3/uL (2.0-7.7); Basophil# 0.02 X10^3/uL; Basophil% 0.3 % (0-1); Eosinophil# 0.22 X10^3/uL; Hematocrit 35.2 % (37-47); Lymphocyte # 2.92 X10^3/ul (0.83-4.51); Lymphocyte % 40.4 % (19-41); Mean Corp Hgb Conc 34.1 g/dL (32-36); Mean Corpuscular Hgb 30.8 pg (27.0-32.0); Mean Corpuscular Volume 90.5 fL (81-99); Mean Platelet Vol. 8.8 fl (6.2-12.0); Monocyte# 0.51 X10^3/uL; Monocyte% 7.1 % (0-10); NRBC Flagged by Analyzer 0 % (0-5); Neutrophil # 3.54 X10^3/uL (2.7-7.7); Neutrophil % 48.9 % (47-70); Platelet Count 307 K/mm3 (150-450); RBC Distribution Width CV 12.6 % (11.6-14.6); Red Blood Count 3.89 M/mm3 (4.2-5.4); White Blood Count 7.2 K/mm3 (4.4-11.0)
[2024-07-30 18:02] LABS: Color, Urine Yellow (Yellow); Glucose, Dipstick Normal (Normal); Ketone-Dipstick Negative (Negative); Leukocyte Esterase-Dipstick 25 /ul (Negative); Nitrite-Dipstick Negative (Negative); Occult Blood-Urine Negative /ul (Negative); Protein-Dipstick 15 mg/dl (Negative); Urine Bilirubin Dipstick Negative (Negative); Urine Clarity Clear (Clear); Urine Urobilinogen Normal (Normal)
[2024-07-30 18:07] LABS: Internal QC Validated? YES +Cl - CLEAR BKGD; Pregnancy, Serum, hCG Quali. NEGATIVE Negative
[2024-07-30 18:12] LABS: ALB/GLOB Ratio 1.1 RATIO (0.9-2.4); AST(SGOT) 27 U/L (15-37); Alanine Aminotransfer ALT/SGPT 36 U/L (13-56); Albumin, Serum 3.9 g/dL (3.2-5.0); Alkaline Phosphatase 79 U/L (45-117); Anion Gap 5 (5-15); BUN 23 mg/dL (7-18); BUN/Creat Ratio 22.1 RATIO (10-20); Calcium,Total 9.4 mg/dL (8.5-10.1); Chloride 106 mmol/L (98-107); Creatinine, Serum 1.04 mg/dL (0.55-1.02); EST Glomerular Filtration Rate 60 mL/min (>60); Est Glom Filt Rate - Afr Amer 73 mL/min (>60); Estimated Creatinine Clearance 68.28 ml/min; Globulin 3.7 g/dL (2.2-4.2); Glucose 85 mg/dL (74-106); Potassium 4.1 mmol/L (3.5-5.1); Protein, Total 7.6 g/dL (6.4-8.2); Sodium Level 139 mmol/L (136-145)
[2024-07-30 18:13] LABS: Bacteria 1+ /hpf (None Seen); Squamous Epithelial Cells - UA 0-5 SEEN /hpf (5-10); White Blood Cells 0-5 SEEN /hpf (0-5)
--- NOTE | 2024-07-30 18:22 | CT_ITS ---
PROCEDURE: ABDOMEN/PELVIS WITHOUT CONT REASON FOR EXAM: Right flank pain; hematuria. TECHNIQUE: Abdomen and pelvis CT without intravenous contrast. COMPARISON: 06/27/2024 CT. FINDINGS: Lung bases: Trace bilateral pleural effusions. Liver: Right hepatic lobe calcification which may represent sequela prior infection. Gallbladder: Surgically absent. Spleen: Unremarkable. Pancreas: Unremarkable. Adrenals: Unremarkable. Kidneys: Bilateral punctate nonobstructive renal calculi. No hydroureteronephrosis. Bladder: Unremarkable. Reproductive Organs: Unremarkable. Bowel: Unremarkable. Appendix: Normal. Lymph nodes: No suspicious lymph node enlargement. Vasculature: Major vascular structures are unremarkable. Peritoneum / Retroperitoneum: No ascites. No free air. Bones: Unremarkable. CT/Abdomen/Pelvis without Cont IMPRESSION: Bilateral nonobstructing nephrolithiasis. Trace bilateral pleural effusions. One or more dose reduction techniques were used (e.g., Automated exposure contr ol, adjustment of the mA and/or kV according to patient size, use of iterative reconstruction technique). Reading Location: [id number]
--- NOTE | 2024-07-30 18:23 | EDS_ITS ---
HPI History of Present Illness Chief Complaint: Flank Pain Informant: patient Onset/Context/Timing Onset: Weeks (1) Context: Gradual Onset Timing: Continuous Quality: Stabbing Location: Right flank Worsened by: Movement, eating Relieved by: Nothing Narrative Narrative: Patient presents with right flank pain that has been getting worse over the past week. Patient describes the pain as stabbing. Patient states it is mainly over the right flank area. Patient states it is worse with movement and with eating. Patient states she saw her urologist recently and was told she had a 3 mm right renal calculus. Patient thinks that this calculus is now into the ureter. P atient admits to some nausea and vomiting. Patient admits to some hematuria. Patient denies any fevers or chills. PFSH [facility], LATER [facility] Medical History Urinary tract infection Flank pain Anemia Easy bruising Restless legs History of stress test Wears glasses Post-menopausal Pulmonary embolism History of IBS Gastric reflux Non-smoker Asthma Cardiology follow-up encounter Hypertension Home Medications ?Medication ?Instructions ?Recorded ?Last Taken ?Type albuterol sulfate 90 mcg/actuation 1 - 2 puff inhalation Q4H PRN PRN 05/09/13 01/22/24 History aerosol inhaler (ProAir HFA) Asthma amlodipine 5 mg tablet 5 mg PO DAILY blood pressure 12/04/23 06/19/24 History apixaban 5 mg tablet (Eliquis) 5 mg PO BID blood thinner 12/04/23 06/16/24 History famotidine 40 mg tablet 40 mg PO QHS stomach 12/04/23 05/03/24 History fluticasone propionate 50 2 spray intranasal DAILY congestion 12/04/23 01/22/24 History mcg/actuation nasal spray,suspension pantoprazole 40 mg tablet,delayed 40 mg PO DAILY reflux 12/04/23 06/19/24 History release ropinirole 0.25 mg tablet 0.25 mg PO QHS PRN PRN restless 12/04/23 01/21/24 History legs potassium chloride 10 mEq 10 meq PO QDAY supplement 03/06/24 Unknown History capsule,extended release carvedilol 3.125 mg tablet 1.5625 mg PO DAILY heart 05/05/24 06/19/24 History ondansetron 4 mg disintegrating 4 mg PO Q8H PRN PRN Nausea 7 days 05/09/24 Unknown Rx tablet #21 tabs ciprofloxacin HCl 500 mg tablet 500 mg PO BID #14 TABLETS 06/28/24 Unknown Rx ondansetron 4 mg disintegrating 4 mg PO Q8H PRN PRN Nausea #10 tabs 06/28/24 Unknown Rx tablet oxycodone 5 mg tablet 5 mg PO Q6H PRN pain 3 days #12 06/28/24 Unknown Rx tabs tramadol 50 mg tablet 50 mg PO Q6H PRN PRN Pain 3 days 07/30/24 Unknown Rx #12 tabs Allergy/AdvReac Type Severity Reaction Status Date / Time Penicillins Allergy Anaphylaxis Verified 06/27/24 20:03 naproxen (From Naprosyn) AdvReac Unknown Nausea Verified 06/27/24 20:03 codeine AdvReac Nausea Verified 06/27/24 20:03 Family History Brother Asthma Grandmother Diabetes Myocardial infarction Father Hypertension Mother Uterine cancer Surgical History History of cystoscopy History of cardiac catheterization History of laparoscopic cholecystectomy History of bladder surgery History of hysterectomy Social History Smoking Status: Never smoker ROS ROS ED Constitutional Constitutional ED: Denies chills or fever(s) Eyes Eyes: Denies blurry vision or change in vision ENT ENT ED: Denies rhinorrhea or sore throat Cardiovascular Cardiovascular: Denies chest pain or palpitations Respiratory/Chest Respiratory/Chest: Reports dyspnea; Denies cough Gastrointestinal Gastrointestinal: Reports nausea and vomiting Genitourinary Genitourinary ED: Reports hematuria; Denies dysuria Musculoskeletal Musculoskeletal: Reports back pain; Denies neck pain Integumentary Denies abscess or rash Neurologic Neurologic: Reports headache(s); Denies weakness Allergic/Immunologic Allergic/Immunologic ED: Denies mouth swelling or urticaria EXAM Physical Exam Const Vital Signs: 07/30/24 15:27 07/30/24 15:29 07/30/24 17:54 Temperature 97.3 F L 97.3 F L Temperature Source Oral Temporal Pulse Rate 88 88 63 Respiratory Rate 16 16 18 Blood Pressure 140/92 H 140/72 H 133/84 H Blood Pressure Mean 108 94 100 Pulse Ox 99 99 97 Oxygen Delivery Method Room Air Room Air Room Air 07/30/24 19:00 Temperature Temperature Source Pulse Rate Respiratory Rate Blood Pressure 135/87 H Blood Pressure Mean 101 Pulse Ox 95 Oxygen Delivery Method Positive well nourished and well developed General Appearance ED: well developed and NAD HEENT Reports moist mucous membranes Neck supple and no JVD Resp normal respiratory effort and clear to auscultation bilaterally Cardio regular rate and regular rhythm GI non-distended Palpation: soft and tender RLQ and RUQ Back/Spine General Back: CVA tenderness right Neuro oriented x3, CN's II-XII intact bilaterally and no sensory deficits noted Sensorium / Orientation: alert Motor Exam: strength 5/5 throughout Psych mental status grossly normal MDM MDM MDM Narrative Medical decision making narrative: Differential diagnosis includes ureteral calculus, pyelonephritis, renal calculus, colitis, choledocholithiasis, peptic ulcer disease, duodenal ulcer, and electrolyte abnormality. CBC will be obtained to assess for leukocytosis an d anemia. Comprehensive metabolic profile will be obtained to assess for hepatic function, renal function, and electrolyte abnormality. Serum hCG will be obtained to assess for . Urinalysis will be obtained to assess for urinary tract infection and hematuria. CT scan of the abdomen and pelvis will be obtained to assess for ureteral calculus and pyelonephritis. Lab Data Attestation: I reviewed the patient's lab results. Lab results narrative: CBC was reviewed and was within normal limits. Comprehensive metabolic profile was reviewed. BUN was slightly elevated at 23 and creatinine was slightly elevated at 1.04. The remainder is within normal limits. Serum hCG was reviewed and was negative. Urinalysis was reviewed. There is no evidence of urinary tract infection or hematuria. Labs: Laboratory Results - last 24 hr 07/30/24 17:30 WBC 7.2 RBC 3.89 L Hgb 12.0 Hct 35.2 L MCV 90.5 MCH 30.8 MCHC 34.1 RDW Std Deviation 41.0 RDW Coeff of Bibi 12.6 Plt Count 307 MPV 8.8 Immature Gran % (Auto) 0.300 Neut % (Auto) 48.9 Lymph % (Auto) 40.4 Beckham % (Auto) 7.1 Eos % (Auto) 3.0 Baso % (Auto) 0.3 Absolute Neuts (auto) 3.5 Absolute Lymphs (auto) 2.92 Nucleated RBC % 0 Sodium 139 Potassium 4.1 Chloride 106 Carbon Dioxide 28.0 Anion Gap 5 BUN 23 H Creatinine 1.04 H Estim Creat Clear Calc 68.28 Est GFR (MDRD) Af Amer 73 Est GFR (MDRD) Non-Af 60 BUN/Creatinine Ratio 22.1 H Glucose 85 Calcium 9.4 Total Bilirubin 0.40 AST 27 ALT 36 Alkaline Phosphatase 79 Total Protein 7.6 Albumin 3.9 Globulin 3.7 Albumin/Globulin Ratio 1.1 Serum , Qual NEGATIVE Urine Color Yellow Urine Clarity Clear Urine pH 5.0 Ur Specific [place] 1.020 Urine Protein 15 H Urine Glucose (UA) Normal Urine Ketones Negative Urine Occult Blood Negative Urine Nitrite Negative Urine Bilirubin Negative Urine Urobilinogen Normal Ur Leukocyte Esterase 25 H Urine RBC 0 SEEN Urine WBC 0-5 SEEN Ur Squamous Epith Cells 0-5 SEEN Urine Bacteria 1+ Urine Mucus 0 SEEN Radiography Diagnostic Testing: Clinical Impression(s) from Imaging Studies Abdomen/Pelvis CT 07/30/24 18:22 IMPRESSION: Bilateral nonobstructing nephrolithiasis. Trace bilateral pleural effusions. One or more dose reduction techniques were used (e.g., Automated exposure control, adjustment of the mA and/or kV according to patient size, use of iterative reconstruction technique). Reading Location: [facility] CT scan of the abdomen and pelvis was obtained. There are bilateral nonobstructing renal calculi. There is no ureteral calculus noted. There are trace bilateral pleural effusions. This was interpreted by the radiologist was also independently reviewed by myself. Treatment and Re-Evaluation :: Patient was given IV fluids, morphine, and Zofran. Patient was advised of her findings. Patient was given a prescription for a short course of tramadol. Patient was instructed to follow-up with her primary care physician in 5 to 7 days. Patient was instructed to return if worse in any way. Patient understood and was agreeable with the plan. All questions were answered. Discharge Plan Triage Chief Complaint: Flank Pain Other Complaint: Abd Pain ED Provider: Sumanth Coyne Dx/Rx/DC Orders Clinical Impression: Right flank pain, Nausea Instructions: ED Flank Pain, Uncertain Cause Prescriptions: New tramadol 50 mg tablet 50 mg PO Q6H PRN PRN (Reason: Pain) 3 Days Qty: 12 0RF No Action potassium chloride 10 mEq capsule, extended release 10 meq PO QDAY albuterol sulfate [ProAir HFA] 1 PUFF inhaler 1 - 2 puff inhalation Q4H PRN PRN (Reason: Asthma) Patient Comments: shortness of breath famotidine 40 mg tablet 40 mg PO QHS pantoprazole 40 mg tablet,delayed release (DR/EC) 40 mg PO DAILY fluticasone propionate 50 mcg/actuation spray,suspension 2 spray INTRANASAL DAILY amlodipine 5 mg tablet 5 mg PO DAILY ropinirole 0.25 mg tablet 0.25 mg PO QHS PRN PRN (Reason: restless legs) Eliquis 5 mg tablet 5 mg PO BID carvedilol 3.125 mg tablet 1.5625 mg PO DAILY oxycodone 5 mg tablet 5 mg PO Q6H PRN (Reason: pain) 3 Days Qty: 12 0RF ondansetron 4 mg tablet,disintegrating 4 mg PO Q8H PRN PRN (Reason: Nausea) Qty: 10 0RF ciprofloxacin HCl 500 mg tablet 500 mg PO BID Qty: 14 0RF ondansetron 4 mg tablet,disintegrating 4 mg PO Q8H PRN PRN (Reason: Nausea) 7 Days Qty: 21 0RF Primary Care Provider: Dwayne Dorado Referrals: Dwayne Dorado MD [Primary Care Provider] - 5-7 Days Anyi Disla MD [Med Staff - Active Staff] - 3-5 Days Print Language: Indonesian Disposition Disposition: Home, Self Care
[2024-07-30] MEDS: Morphine 4 MG/ML Syringe IV (18:51)
[2024-07-30] MEDS: Ondansetron 4 MG/2 ML Vial IV (18:51)
[2024-07-30] MEDS: 0.9% Normal Saline (1000mL) 1,000 ML 1000 ML IV (18:51)
[2024-07-30 19:00] VITALS: BP 135/87; O2SAT 95
[2024-07-30 21:00] VITALS: BP 113/66; O2SAT 93
== END 2024-07-30 21:19 | disposition home or self-care (01) ==
PROVIDERS: Emergency Provider Emergency Medicine; PCP Family Medicine; Visit Provider Emergency Medicine
DX: R10.9 Unspecified abdominal pain (principal); N20.0 Calculus of kidney; R31.9 Hematuria, unspecified; R11.2 Nausea with vomiting, unspecified; I10 Essential (primary) hypertension; J45.909 Unspecified asthma, uncomplicated; K21.9 Gastro-esophageal reflux disease without esophagitis; Z79.01 Long term (current) use of anticoagulants; Z79.899 Other long term (current) drug therapy; Z90.710 Acquired absence of both cervix and uterus
CPT/HCPCS: 74176; 80053; 81001; 84703; 85025; 96361; 96374; 96375; 99284; J2405

== ENCOUNTER → 2024-08-04 | Outpatient (CLI) | payer MEDICAID, SELFPAY ==
--- NOTE | 2024-08-04 15:32 | RAD_ITS ---
PROCEDURE: ANKLE MIN 3 VIEWS REASON FOR EXAM: Pain, trauma TECHNIQUE: 3 views of the right ankle COMPARISON: None FINDINGS: See impression RAD/Ankle min 3 Views IMPRESSION: Negative for acute fracture or subluxation. No significant arthropathy. Soft tissues are within normal limits. Reading Location: [facility]
== END | disposition home or self-care (01) ==
LOC: MTRAD 15:29
PROVIDERS: PCP Family Medicine; Referring Provider Family Medicine; Visit Provider Family Medicine
DX: S93.401A Sprain of unspecified ligament of right ankle, initial encounter (principal); X58.XXXA Exposure to other specified factors, initial encounter
CPT/HCPCS: 73610

== ENCOUNTER 2024-08-11 17:31 | Emergency (ER) | payer MEDICAID, SELFPAY ==
[2024-08-11 17:33] VITALS: BP 168/97; PULSE 79; RESP 18; TEMP 36.1; O2SAT 98; BMI 31.7
--- NOTE | 2024-08-11 18:27 | EX.ED.DYSGE1 ---
HPI History of Present Illness Chief Complaint: Edema Informant: patient Narrative Narrative: Cough congestion for the past week. Couple days migraine symptoms. No head injuries. No fevers. Today itching to the left eye she rubbed it noticed swelling there is redness in the eye. She is on Eliquis for history of pulmonary embolism. Denies any dental pain in the area. Sick contacts with coworkers. Prior similar symptoms: Yes PFSH PFSH Medical History Urinary tract infection Flank pain Anemia Easy bruising Restless legs History of stress test Wears glasses Post-menopausal Pulmonary embolism History of IBS Gastric reflux Non-smoker Asthma Cardiology follow-up encounter Hypertension Home Medications ?Medication ?Instructions ?Recorded ?Last Taken ?Type amlodipine 5 mg tablet 5 mg PO DAILY blood pressure 12/04/23 06/19/24 History apixaban 5 mg tablet (Eliquis) 5 mg PO BID blood thinner 12/04/23 06/16/24 History pantoprazole 40 mg tablet,delayed 40 mg PO DAILY reflux 12/04/23 06/19/24 History release carvedilol 3.125 mg tablet 1.5625 mg PO DAILY heart 05/05/24 06/19/24 History oxycodone 5 mg tablet 5 mg PO Q6H PRN pain 3 days #12 06/28/24 Unknown Rx tabs carvedilol 25 mg tablet 25 mg PO DAILY 07/30/24 Unknown History esomeprazole magnesium 40 mg 40 mg PO DAILY 07/30/24 Unknown History capsule,delayed release ondansetron 8 mg disintegrating 8 mg PO TID PRN PRN nausea and 07/30/24 Unknown History tablet vomiting tramadol 50 mg tablet 50 mg PO Q6H PRN PRN Pain 3 days 07/30/24 Unknown Rx #12 tabs loratadine 10 mg tablet 10 mg PO DAILY #30 tabs 08/11/24 Unknown Rx (Allerclear) Allergy/AdvReac Type Severity Reaction Status Date / Time Penicillins Allergy Anaphylaxis Verified 08/11/24 17:32 naproxen (From Naprosyn) AdvReac Unknown Nausea Verified 08/11/24 17:32 codeine AdvReac Nausea Verified 08/11/24 17:32 Family History Brother Asthma Grandmother Diabetes Myocardial infarction Father Hypertension Mother Uterine cancer Surgical History History of cystoscopy History of cardiac catheterization History of laparoscopic cholecystectomy History of bladder surgery History of hysterectomy Social History Smoking Status: Never smoker ROS ROS ED Constitutional Constitutional ED: Denies chills, fever(s) or sweats ENT ENT ED: Reports other Details: Sinus congestion, left facial swelling ; Denies sore throat Cardiovascular Cardiovascular: Denies chest pain, leg edema, palpitations or racing heartbeat Respiratory/Chest Respiratory/Chest: Reports cough; Denies dyspnea or dyspnea on exertion Gastrointestinal Gastrointestinal: Denies abdominal pain, diarrhea, nausea or vomiting Genitourinary Genitourinary ED: Denies dysuria, hematuria or urinary frequency Musculoskeletal Musculoskeletal: Denies back pain, extremity pain or neck pain Integumentary Denies rash or wounds Neurologic Neurologic: Reports headache(s); Denies paresthesias or weakness EXAM Physical Exam Const Vital Signs: 08/11/24 17:32 08/11/24 17:33 08/11/24 19:32 Temperature 97 F L Temperature Source Temporal Pulse Rate 79 84 Respiratory Rate 18 16 Respiratory Effort Normal Non-Labored Respiratory Pattern Normal Blood Pressure 168/97 H 155/86 H Blood Pressure Mean 120 109 Pulse Ox 98 98 Oxygen Delivery Method Room Air Positive well nourished and well developed General Appearance ED: well developed and NAD HEENT Reports moist mucous membranes HEENT Narrative: Edentulous left upper except for tooth #13. No gum swelling. normocephalic and atraumatic Eyes Eyes Narrative: Mild infraorbital swelling left side, small subconjunctival hemorrhage lateral sclera, no corneal involvement. Neck full ROM Neck Narrative: No meningismus. Chest Wall Chest: Negative for tenderness Resp normal respiratory effort and normal air movement Effort and Inspection: symmetric chest movement; Negative for respiratory distress Cardio regular rate, regular rhythm and no murmurs Peripheral Pulses: pulses 2+ throughout GI normal to inspection, nondistended, normoactive bowel sounds and non-tender Palpation: Negative for guarding or rebound tenderness present Extremity normal to inspection General Extremety ED: Negative for edema or tenderness General Extremity: Negative for edema Neuro oriented x3, CN's II-XII intact bilaterally and no sensory deficits noted Sensorium / Orientation: awake and alert Skin no rashes or lesions noted and no wounds MDM MDM MDM Narrative Medical decision making narrative: Interventions / MDM: Differential diagnosis: Viral syndrome, headache, subconjunctival hemorrhage, chronic anticoagulant Diagnosis considered but do not suspect: No clinical meningitis, no periorbital cellulitis My EKG interpretation: N/A Imaging independently reviewed and interpreted by myself: N/A External documents reviewed: N/A Test considered but not ordered:N/A ED course: Patient nontoxic no meningismus. Periorbital swelling with no redness just reports pruritic symptoms. With history concerns for traumatic subconjunctival hemorrhage with her on anticoagulants. No corneal involvement. Predict symptoms will treat with loratadine. Headache symptoms she would like medications therefore Imitrex will be ordered. Will reevaluate. Headache improved on reevaluation swelling also slightly improved. Should be continued on loratadine. Outpatient follow-up with her doctors. All questions were answered. Re-evaluation: stable Disposition discussed with patient/family/significant other: Patient Case discussed with consulting clinician: N/A This note was generated with [employer] dictation software. It may contain incorrect words, spelling, and punctuation that were not noted in checking the note before signing. Discharge Plan Triage Chief Complaint: Edema ED Provider: Haroon Vieira Dx/Rx/DC Orders Clinical Impression: Acute viral syndrome, CEM (subconjunctival hemorrhage), Left facial swelling, Chronic anticoagulation Instructions: ED Subconjunctival Hemorrhage, ED URI, Viral, No Abx (Adult) Prescriptions: New loratadine [Allerclear] 10 mg tablet 10 mg PO DAILY Qty: 30 0RF No Action pantoprazole 40 mg tablet,delayed release (DR/EC) 40 mg PO DAILY amlodipine 5 mg tablet 5 mg PO DAILY Eliquis 5 mg tablet 5 mg PO BID carvedilol 3.125 mg tablet 1.5625 mg PO DAILY oxycodone 5 mg tablet 5 mg PO Q6H PRN (Reason: pain) 3 Days Qty: 12 0RF tramadol 50 mg tablet 50 mg PO Q6H PRN PRN (Reason: Pain) 3 Days Qty: 12 0RF carvedilol 25 mg tablet 25 mg PO DAILY ondansetron 8 mg tablet,disintegrating 8 mg PO TID PRN PRN (Reason: nausea and vomiting) esomeprazole magnesium 40 mg capsule,delayed release(DR/EC) 40 mg PO DAILY Stand Alone Forms: ED Work / School Excuse Primary Care Provider: Dwayne Dorado Referrals: Dwayne Dorado MD [Primary Care Provider] - 1 Week Activity Restrictions/Additional Instructions: Use loratadine as needed for swelling and itching. Print Language: Algerian Disposition Disposition: Home, Self Care Discharge Date/Time: 08/11/24 20:32
[2024-08-11] MEDS: SUMAtriptan 6 MG/0.5 ML Vial SC (19:01)
[2024-08-11] MEDS: Loratadine 10 MG Tablet PO (19:01)
[2024-08-11 19:32] VITALS: BP 155/86; PULSE 84; RESP 16; O2SAT 98
== END 2024-08-11 20:32 | disposition home or self-care (01) ==
PROVIDERS: Emergency Provider Emergency Medicine; PCP Family Medicine; Visit Provider Emergency Medicine
DX: B34.9 Viral infection, unspecified (principal); H11.32 Conjunctival hemorrhage, left eye; R51.9 Headache, unspecified; I10 Essential (primary) hypertension; R22.0 Localized swelling, mass and lump, head; N83.202 Unspecified ovarian cyst, left side; J45.909 Unspecified asthma, uncomplicated; Z79.01 Long term (current) use of anticoagulants; Z79.899 Other long term (current) drug therapy; Z86.711 Personal history of pulmonary embolism
CPT/HCPCS: 76830; 76856; 96372; 99282; J3030

== ENCOUNTER → 2024-08-11 | Outpatient (CLI) | payer MEDICAID, SELFPAY ==
--- NOTE | 2024-08-11 16:24 | US_ITS ---
PROCEDURE: PELVIC W/ TRANSVAGINAL REASON FOR EXAM: Follow-up of left ovarian cyst. TECHNIQUE: Transabdominal and transvaginal pelvic ultrasound COMPARISON: Comparison is made with prior study dated June 03, 2024. FINDINGS: Measurements: Uterus: Status post hysterectomy. Right Ovary: Status post right oophorectomy. Left Ovary: 2.7 cm x 1.4 cm x 1.4 cm. Dominant follicle measuring 1.2 cm x 0.6 cm x 0.7 cm. This has decreased in size. TRANSABDOMINAL: Uterus: Status post hysterectomy. Right ovary: Status post right oophorectomy. Left ovary: 1.2 cm x 0.6 cm x 0.7 cm follicle. No large pelvic mass identified. Transvaginal sonography was performed to further characterize the ovarian findings. TRANSVAGINAL: Uterus: Status post hysterectomy. Right ovary: Status post right oophorectomy. Left ovary: 1.2 cm x 0.6 cm x 0.7 cm dominant follicle. US/Pelvic w/ Transvaginal IMPRESSION: Residual 1.2 cm x 0.6 cm x 0.7 cm follicle in the left ovary. Reading Location: [id number]
== END | disposition home or self-care (01) ==
PROVIDERS: PCP Family Medicine; Referring Provider Nurse Practitioner Women's Health; Visit Provider Nurse Practitioner Women's Health
DX: N83.202 Unspecified ovarian cyst, left side (principal)
CPT/HCPCS: 76830; 76856

== ENCOUNTER → 2024-08-29 | Outpatient (CLI) | payer MEDICAID, SELFPAY ==
--- NOTE | 2024-08-29 09:50 | RAD_ITS ---
PROCEDURE: LUMBAR SPINE 2 OR 3 VIEWS REASON FOR EXAM: Sciatica of right leg TECHNIQUE: 3 view(s) of the lumbar spine COMPARISON: None. FINDINGS: Normal lumbar vertebral heights. No evidence of fracture. Mild multilevel disc space narrowing. Moderate facet arthropathy. Normal alignment. No spondylolisthesis. RAD/Lumbar Spine 2 or 3 Views IMPRESSION: Degenerative changes in the lumbar spine with no acute abnormality. Reading Location: [facility]
== END | disposition home or self-care (01) ==
LOC: MTRAD 09:30
PROVIDERS: PCP Family Medicine; Referring Provider Family Medicine; Visit Provider Family Medicine
DX: M54.31 Sciatica, right side (principal); M54.10 Radiculopathy, site unspecified
CPT/HCPCS: 72100

== ENCOUNTER 2024-09-04 14:40 | Emergency (ER) | payer MEDICAID, SELFPAY ==
[2024-09-04 14:41] VITALS: BP 168/108; PULSE 58; RESP 16; TEMP 35.7; O2SAT 100; BMI 32.1
--- NOTE | 2024-09-04 14:57 | CT_ITS ---
PROCEDURE: ABDOMEN/PELVIS WITHOUT CONT REASON FOR EXAM: Right flank pain. TECHNIQUE: Contiguous axial scans of 3.75 mm slice thicknesses. Sagittal and coronal reconstruction images were obtained. One or more dose reduction techniques were used (e.g., automated exposure control, adjustment of mA and/or kv according to patient size, use of iterative reconstruction technique). COMPARISON: CT abdomen and pelvis dated 06/27/2024 FINDINGS: Lung bases: Clear Liver: Unremarkable. Gallbladder: Surgically absent. Spleen: Unremarkable. Pancreas: Unremarkable. Adrenals: Unremarkable. Kidneys: Unremarkable. Bladder: Unremarkable. Reproductive Organs: Uterus is surgically absent Bowel: Unremarkable. Appendix: Normal. Lymph nodes: No suspicious lymph node enlargement. Vasculature: Numerous calcified phleboliths in the pelvis Peritoneum / Retroperitoneum: No ascites. No free air. Bones: Unremarkable. CT/Abdomen/Pelvis without Cont IMPRESSION: No evidence of an obstructive uropathy. Status post hysterectomy and cholecystectomy. One or more dose reduction techniques were used (e.g., Automated exposure contr ol, adjustment of the mA and/or kV according to patient size, use of iterative reconstruction technique). Reading Location: [place] [id number]
--- NOTE | 2024-09-04 14:59 | EX.ED.DYSGE1 ---
HPI History of Present Illness Chief Complaint: General Illness Narrative Narrative: 48-year-old female presents with 1 week of right flank pain. She has pain in her low back and right flank. Yesterday, she started having cough and shortness of breath. She had subjective fever as well. She had nausea and vomiting as well. Past medical history does include hypertension and she is on Eliquis for pulmonary emboli. She denies any exacerbating or alleviating symptoms to her right flank pain, but states she has history of kidney stones which required stenting as well. [facility] Medical History Urinary tract infection Flank pain Anemia Easy bruising Restless legs History of stress test Wears glasses Post-menopausal Pulmonary embolism History of IBS Gastric reflux Non-smoker Asthma Cardiology follow-up encounter Hypertension Home Medications ?Medication ?Instructions ?Recorded ?Last Taken ?Type amlodipine 5 mg tablet 5 mg PO DAILY blood pressure 12/04/23 06/19/24 History apixaban 5 mg tablet (Eliquis) 5 mg PO BID blood thinner 12/04/23 06/16/24 History pantoprazole 40 mg tablet,delayed 40 mg PO DAILY reflux 12/04/23 06/19/24 History release carvedilol 3.125 mg tablet 1.5625 mg PO DAILY heart 05/05/24 06/19/24 History oxycodone 5 mg tablet 5 mg PO Q6H PRN pain 3 days #12 06/28/24 Unknown Rx tabs carvedilol 25 mg tablet 25 mg PO DAILY 07/30/24 Unknown History esomeprazole magnesium 40 mg 40 mg PO DAILY 07/30/24 Unknown History capsule,delayed release ondansetron 8 mg disintegrating 8 mg PO TID PRN PRN nausea and 07/30/24 Unknown History tablet vomiting tramadol 50 mg tablet 50 mg PO Q6H PRN PRN Pain 3 days 07/30/24 Unknown Rx #12 tabs loratadine 10 mg tablet 10 mg PO DAILY #30 tabs 08/11/24 Unknown Rx (Allerclear) Allergy/AdvReac Type Severity Reaction Status Date / Time Penicillins Allergy Anaphylaxis Verified 09/04/24 14:41 naproxen (From Naprosyn) AdvReac Unknown Nausea Verified 09/04/24 14:41 codeine AdvReac Nausea Verified 09/04/24 14:41 Family History Brother Asthma Grandmother Diabetes Myocardial infarction Father Hypertension Mother Uterine cancer Surgical History History of cystoscopy History of cardiac catheterization History of laparoscopic cholecystectomy History of bladder surgery History of hysterectomy Social History housing: house Smoking Status: Never smoker ROS ROS ED ROS Narrative Constitutional: Subjective fever, no chills. HEENT: No sore throat. No neck pain. Cardiovascular: No chest pain. No palpitations. No pedal edema. Respiratory: Positive cough, positive shortness of breath. Abdominal: No abdominal pain. No nausea. No vomiting. Genitourinary: No dysuria. No hematuria. Positive right flank pain. Musculoskeletal: No myalgias. No arthralgias. Neurologic: No headaches. No dizziness. No lightheadedness. EXAM Physical Exam Narrative Exam Narrative: Afebrile. Vital signs noted. Nontoxic-appearing. Cardiovascular examination reveals a regular rate and rhythm. Lungs are clear to auscultation bilaterally. Abdomen is soft and nontender without guarding or rebound. Questionable tenderness to percussion right CVA. Positive bowel sounds. Neurological examination nonfocal and nonlateralizing. Seen ambulating to the ED room without difficulty. Const Vital Signs: 09/04/24 14:41 09/04/24 14:47 Temperature 96.3 F L Temperature Source Temporal Pulse Rate 58 L Respiratory Rate 16 Respiratory Effort Normal Non-Labored Respiratory Pattern Normal Blood Pressure 168/108 H Blood Pressure Mean 128 Pulse Ox 100 Oxygen Delivery Method Room Air MDM MDM MDM Narrative Medical decision making narrative: Differential diagnosis includes but not limited to pyelonephritis versus ureterolithiasis as a cause of her right flank pain. Additionally, she may have more of an upper respiratory infection or bronchitis versus pneumonia. She is status post cholecystectomy so I doubt acute cholecystitis. She had right flank symptoms for 1 week prior to her becoming sick over the last 1 to 2 days. I reviewed her laboratory work and she has normal white count of 6.7 with hemoglobin 12.8, hematocrit 37.3, platelet count normal at 324. AST is slightly elevated at 33 with ALT 47 which I think is nonspecific, normal alk phos. Urinalysis obtained and is negative for infection. I do not feel antibiotics are indicated. Negative ketones. Lipase normal at 51 so I doubt pancreatitis. As there is no blood or infection in her urine, I doubt ureterolithiasis as a source of her flank pain. I reviewed the radiology report of the CT of the abdomen and pelvis without contrast and there is no acute process, no hydronephrosis, no obstructive uropathy. Chest x-ray in 1 view interpreted by myself independently shows no evidence of pneumonia or pneumothorax. I reviewed the radiology report which confirms my independent interpretation. Patient had been given a dose of morphine and requested something for nausea so she was administered Zofran 4 mg ODT. At this point in time, as her respiratory swabs are negative for COVID, influenza, and RSV I do not feel that she requires an antiviral. Treatment will continue to be symptomatic with [id number] medications as needed for pain. She may be having more of a different type of viral syndrome. I do not feel she requires observation or admission. Return instructions to the emergency department were reviewed. Disposition is discharged home in stable condition. History & Record Review Discussion w/independent historian: Patient Lab Data Attestation: I reviewed the patient's lab results. Labs: Laboratory Results - last 24 hr 09/04/24 09/04/24 15:05 15:08 WBC 6.7 RBC 4.10 L Hgb 12.8 Hct 37.3 MCV 91.0 MCH 31.2 MCHC 34.3 RDW Std Deviation 41.1 RDW Coeff of Bibi 12.5 Plt Count 324 MPV 8.6 Immature Gran % (Auto) 0.100 Neut % (Auto) 44.1 L Lymph % (Auto) 46.3 H [place] % (Auto) 5.8 Eos % (Auto) 3.3 Baso % (Auto) 0.4 Absolute Neuts (auto) 3.0 Absolute Lymphs (auto) 3.11 Nucleated RBC % 0 Sodium 139 Potassium 4.1 Chloride 106 Carbon Dioxide 23.0 Anion Gap 10 BUN 16 Creatinine 1.00 Estim Creat Clear Calc 75.99 Est GFR (MDRD) Non-Af 70 BUN/Creatinine Ratio 16.2 Glucose 92 Calcium 9.2 Total Bilirubin 0.26 AST 33 H ALT 47 H Alkaline Phosphatase 86 Total Protein 7.3 Albumin 4.2 Globulin 3.0 Albumin/Globulin Ratio 1.4 Lipase 51 Urine Color Yellow Urine Clarity Clear Urine pH 6.0 Ur Specific [place] 1.020 Urine Protein 15 H Urine Glucose (UA) Normal Urine Ketones Negative Urine Occult Blood Negative Urine Nitrite Negative Urine Bilirubin Negative Urine Urobilinogen Normal Ur Leukocyte Esterase Negative Urine RBC 0-5 SEEN Urine WBC 0-5 SEEN Ur Squamous Epith Cells 5-10 SEEN Urine Bacteria 1+ Urine Mucus 0 SEEN Radiography Diagnostic Testing: Clinical Impression(s) from Imaging Studies Abdomen/Pelvis CT 09/04/24 14:57 IMPRESSION: No evidence of an obstructive uropathy. Status post hysterectomy and cholecystectomy. One or more dose reduction techniques were used (e.g., Automated exposure control, adjustment of the mA and/or kV according to patient size, use of iterative reconstruction technique). Reading Location: [place] [address] Chest X-Ray 09/04/24 15:25 IMPRESSION: No active cardiopulmonary disease. Reading Location: [place] [address] Discharge Plan Triage Chief Complaint: General Illness ED Provider: Eulogio Acuña Dx/Rx/DC Orders Clinical Impression: Flank pain, Shortness of breath Instructions: ED Dyspnea, ED Flank Pain, Uncertain Cause, ED Pain, Acute, Uncertain Cause Prescriptions: No Action pantoprazole 40 mg tablet,delayed release (DR/EC) 40 mg PO DAILY amlodipine 5 mg tablet 5 mg PO DAILY Eliquis 5 mg tablet 5 mg PO BID carvedilol 3.125 mg tablet 1.5625 mg PO DAILY oxycodone 5 mg tablet 5 mg PO Q6H PRN (Reason: pain) 3 Days Qty: 12 0RF tramadol 50 mg tablet 50 mg PO Q6H PRN PRN (Reason: Pain) 3 Days Qty: 12 0RF carvedilol 25 mg tablet 25 mg PO DAILY ondansetron 8 mg tablet,disintegrating 8 mg PO TID PRN PRN (Reason: nausea and vomiting) esomeprazole magnesium 40 mg capsule,delayed release(DR/EC) 40 mg PO DAILY loratadine [Allerclear] 10 mg tablet 10 mg PO DAILY Qty: 30 0RF Primary Care Provider: Dwayne Dorado Referrals: Dwayne Dorado MD [Primary Care Provider] - 1 Week if not improving Activity Restrictions/Additional Instructions: Continue your [id number] medications as needed for pain. Return with increased difficulty breathing, new or worsening symptoms. Print Language: Indonesian Disposition Disposition: Home, Self Care
[2024-09-04 15:14] LABS: Mucous, Urine 0 SEEN /hpf (<or=2+)
[2024-09-04 15:16] LABS: Color, Urine Yellow (Yellow); Glucose, Dipstick Normal (Normal); Ketone-Dipstick Negative (Negative); Leukocyte Esterase-Dipstick Negative /ul (Negative); Nitrite-Dipstick Negative (Negative); Occult Blood-Urine Negative /ul (Negative); Protein-Dipstick 15 mg/dl (Negative); Urine Bilirubin Dipstick Negative (Negative); Urine Clarity Clear (Clear); Urine Urobilinogen Normal (Normal)
[2024-09-04 15:16] LABS: Absolute Lymphocyte Count 3.11 X10^3/uL (0.83-4.51); Basophil# 0.03 X10^3/uL; Basophil% 0.4 % (0-1); Eosinophil# 0.22 X10^3/uL; Eosinophils% 3.3 % (0-5); Hematocrit 37.3 % (37-47); Hemoglobin 12.8 g/dL (12.0-15.0); Lymphocyte # 3.11 X10^3/ul (0.83-4.51); Lymphocyte % 46.3 % (19-41); Mean Corp Hgb Conc 34.3 g/dL (32-36); Mean Corpuscular Hgb 31.2 pg (27.0-32.0); Mean Platelet Vol. 8.6 fl (6.2-12.0); Monocyte# 0.39 X10^3/uL; Monocyte% 5.8 % (0-10); NRBC Flagged by Analyzer 0 % (0-5); Neutrophil # 2.96 X10^3/uL (2.7-7.7); Neutrophil % 44.1 % (47-70); Platelet Count 324 K/mm3 (150-450); RBC Distribution Width CV 12.5 % (11.6-14.6); RBC Distribution Width SD 41.1 fl (35.1-43.9); White Blood Count 6.7 K/mm3 (4.4-11.0)
[2024-09-04] MEDS: Morphine 4 MG/ML Syringe IV (15:19)
--- NOTE | 2024-09-04 15:25 | RAD_ITS ---
PROCEDURE: CHEST 1 VIEW (PORTABLE) REASON FOR EXAM: Cough. Shortness of breath. TECHNIQUE: Frontal view of the chest. COMPARISON: CTA chest dated 05/09/2024. FINDINGS: Lungs: Lungs clear of pneumonia and congestion. Pleura: No pleural effusions, thickening, or pneumothorax. Heart: Normal in size and configuration. Mediastinum/Radha: Unremarkable. Great vessels: Unremarkable. Bones/soft tissues: Unremarkable. RAD/Chest 1 View (Portable) IMPRESSION: No active cardiopulmonary disease. Reading Location: [place] [id number]
[2024-09-04 15:29] LABS: Bacteria 1+ /hpf (None Seen); Red Blood Cells-Urine 0-5 SEEN /hpf (0-5); Squamous Epithelial Cells - UA 5-10 SEEN /hpf (5-10); White Blood Cells 0-5 SEEN /hpf (0-5)
[2024-09-04 15:34] LABS: ALB/GLOB Ratio 1.4 RATIO (0.9-2.4); AST(SGOT) 33 U/L (<=31); Alanine Aminotransfer ALT/SGPT 47 U/L (<=34); Albumin, Serum 4.2 g/dL (3.5-5.0); Alkaline Phosphatase 86 U/L (35-104); Anion Gap 10 (5-15); BUN 16 mg/dL (4-19); BUN/Creat Ratio 16.2 RATIO (10-20); Calcium,Total 9.2 mg/dL (7.6-11.0); Chloride 106 mmol/L (98-108); EST Glomerular Filtration Rate 70 (>60); Estimated Creatinine Clearance 75.99 ml/min (50-250); Glucose 92 mg/dL (70-99); Lipase 51 U/L (13-75); Potassium 4.1 mmol/L (3.3-5.1); Protein, Total 7.3 g/dL (5.9-8.4); Sodium Level 139 mmol/L (133-145); Total Bilirubin 0.26 mg/dL (0.00-1.30)
[2024-09-04 16:22] VITALS: BP 128/89; PULSE 78; RESP 16; TEMP 36.6; O2SAT 99
[2024-09-04] MEDS: Ondansetron ODT 4 MG Tablet PO (16:25)
== END 2024-09-04 16:27 | disposition home or self-care (01) ==
PROVIDERS: Emergency Provider Emergency Medicine; PCP Family Medicine; Referring Provider Emergency Medicine; Visit Provider Emergency Medicine
DX: R10.9 Unspecified abdominal pain (principal); R06.02 Shortness of breath; I10 Essential (primary) hypertension; R11.2 Nausea with vomiting, unspecified; M54.50 Low back pain, unspecified; J45.909 Unspecified asthma, uncomplicated; R05.9 Cough, unspecified; Z11.52 Encounter for screening for COVID-19; Z79.01 Long term (current) use of anticoagulants; Z79.899 Other long term (current) drug therapy
CPT/HCPCS: 71045; 74176; 80053; 81001; 83690; 85025; 87631; 96374; 99283; A4216

== ENCOUNTER 2024-09-24 21:38 | Emergency (ER) | payer MEDICAID, SELFPAY ==
[2024-09-24 21:39] VITALS: BP 169/89; PULSE 79; RESP 16; TEMP 36.6; O2SAT 98; BMI 32.8
[2024-09-24 22:01] LABS: Absolute Neutrophil Count 3.3 X10^3/uL (2.0-7.7); Basophil# 0.04 X10^3/uL; Basophil% 0.5 % (0-1); Eosinophil# 0.28 X10^3/uL; Eosinophils% 3.7 % (0-5); Hematocrit 35.7 % (37-47); Hemoglobin 12.4 g/dL (12.0-15.0); Lymphocyte % 45.7 % (19-41); Mean Corp Hgb Conc 34.7 g/dL (32-36); Mean Corpuscular Hgb 31.2 pg (27.0-32.0); Mean Corpuscular Volume 89.9 fL (81-99); Mean Platelet Vol. 8.6 fl (6.2-12.0); Monocyte# 0.53 X10^3/uL; Monocyte% 6.9 % (0-10); NRBC Flagged by Analyzer 0 % (0-5); Neutrophil # 3.29 X10^3/uL (2.7-7.7); Neutrophil % 42.9 % (47-70); Platelet Count 344 K/mm3 (150-450); RBC Distribution Width CV 12.6 % (11.6-14.6); RBC Distribution Width SD 41.2 fl (35.1-43.9); Red Blood Count 3.97 M/mm3 (4.2-5.4); White Blood Count 7.7 K/mm3 (4.4-11.0)
[2024-09-24 22:28] LABS: Lipase 47 U/L (13-75)
[2024-09-24 22:29] LABS: ALB/GLOB Ratio 1.4 RATIO (0.9-2.4); AST(SGOT) 39 U/L (<=31); Alanine Aminotransfer ALT/SGPT 43 U/L (<=34); Albumin, Serum 4.2 g/dL (3.5-5.0); Alkaline Phosphatase 85 U/L (35-104); Anion Gap 11 (5-15); BUN 20 mg/dL (4-19); BUN/Creat Ratio 19.3 RATIO (10-20); Calcium,Total 9.1 mg/dL (7.6-11.0); Carbon Dioxide 22.7 mmol/L (21.0-32.0); Chloride 108 mmol/L (98-108); Creatinine, Serum 1.01 mg/dL (0.70-1.20); EST Glomerular Filtration Rate 69 (>60); Estimated Creatinine Clearance 76.03 ml/min (50-250); Globulin 3.1 g/dL (2.2-4.2); Glucose 109 mg/dL (70-99); Internal QC Validated? YES +Cl - CLEAR BKGD; Potassium 4.2 mmol/L (3.3-5.1); Pregnancy, Serum, hCG Quali. NEGATIVE Negative; Protein, Total 7.3 g/dL (5.9-8.4); Sodium Level 141 mmol/L (133-145); Total Bilirubin 0.19 mg/dL (0.00-1.30)
--- NOTE | 2024-09-24 22:39 | CT_ITS ---
PROCEDURE: ABDOMEN/PELVIS W IV CONT ONLY 09/24/2024 REASON FOR EXAM: 48-year-old female, abdominal pain, nausea, vomiting x6 days. TECHNIQUE: Abdomen and pelvis CT without and with intravenous contrast. Coronal and Sagittal reconstruction series were provided. PATIENT PREPARATION: Per protocol ORAL CONTRAST TYPE: None. CONTRAST: Isovue-300 VOLUME: 100ML One or more dose reduction techniques were used (e.g., Automated exposure control, adjustment of the mA and/or kV according to patient size, use of iterative reconstruction technique. RADIATION DOSE SUMMARY: CTDlvol: 35 mGy DLP: 1300 mGycm COMPARISON: CT abdomen pelvis 09/04/2024. FINDINGS: Lung bases: The lung bases are clear. The heart is normal in size. Liver: Mild hepatomegaly with diffuse hepatic steatosis. The major portal veins are patent. No biliary ductal dilation. Gallbladder: Surgically absent. Spleen: Unremarkable. Pancreas: Unremarkable. Adrenals: Unremarkable. Kidneys: Tiny nonobstructing left renal calculus. No hydronephrosis. Bladder: Decompressed. Reproductive Organs: Prior hysterectomy. Bowel: The bowel loops are normal in caliber. No ascites or pneumoperitoneum. Normal appendix. Lymph nodes: No lymphadenopathy. Vasculature: The abdominal aorta and IVC are normal. Bones: No aggressive osseous lesions. CT/Abdomen/Pelvis W IV Cont ONLY IMPRESSION: 1. No acute abdominopelvic finding. 2. Mild hepatomegaly with diffuse hepatic steatosis. Reading Location: [id number]
--- NOTE | 2024-09-24 22:40 | ED.VIS.GI ---
HPI HPI - GI History of Present Illness Chief Complaint: Abd Pain Informant: patient Abdominal Pain/Flank Pain Onset: Days (5-6) Context: Gradual Onset Timing: Continuous Quality: Sharp Location: Diffuse Worsened by: Food Relieved by: Nothing Nausea/Vomiting/Emesis GI Symptom: Positive for Nausea and Vomiting Quality: Positive for Nonbilious; Negative for Blood streaks, Coffee ground or Hematemesis Diarrhea/Melena/Hematochezia GI Symptom: Negative for Diarrhea, Melena or Hematochezia Associated Symptoms Associated Symptoms: Negative for Dysuria, Frequency or Hematuria LMP: Hysterectomy Narrative Narrative: Patient presents with abdominal pain that has been getting worse over the past 5 to 6 days. Patient states it is gradually getting worse. Patient states it is constant. Patient describes her pain as sharp. Patient states that her pain is diffuse across her entire abdomen. Patient states it is worse with eating or drinking. Patient admits to some nausea and vomiting. Patient states her emesis is undigested food. Patient denies any hematemesis or coffee-ground emesis. Patient denies any diarrhea, melena, or hematochezia. Patient denies any urinary complaints. Patient has had a prior hysterectomy. [facility] Medical History Urinary tract infection Flank pain Anemia Easy bruising Restless legs History of stress test Wears glasses Post-menopausal Pulmonary embolism History of IBS Gastric reflux Non-smoker Asthma Cardiology follow-up encounter Hypertension Home Medications ?Medication ?Instructions ?Recorded ?Last Taken ?Type amlodipine 5 mg tablet 5 mg PO DAILY blood pressure 12/04/23 06/19/24 History apixaban 5 mg tablet (Eliquis) 5 mg PO BID blood thinner 12/04/23 06/16/24 History pantoprazole 40 mg tablet,delayed 40 mg PO DAILY reflux 12/04/23 06/19/24 History release carvedilol 3.125 mg tablet 1.5625 mg PO DAILY heart 05/05/24 06/19/24 History carvedilol 25 mg tablet 25 mg PO DAILY 07/30/24 Unknown History tramadol 50 mg tablet 50 mg PO Q6H PRN PRN Pain 3 days 07/30/24 Unknown Rx #12 tabs ondansetron 4 mg disintegrating 4 mg PO Q8H PRN PRN Nausea #10 tabs 09/25/24 Unknown Rx tablet Allergy/AdvReac Type Severity Reaction Status Date / Time Penicillins Allergy Anaphylaxis Verified 09/24/24 21:41 naproxen (From Naprosyn) AdvReac Unknown Nausea Verified 09/24/24 21:41 codeine AdvReac Nausea Verified 09/24/24 21:41 Family History Brother Asthma Grandmother Diabetes Myocardial infarction Father Hypertension Mother Uterine cancer Surgical History History of cystoscopy History of cardiac catheterization History of laparoscopic cholecystectomy History of bladder surgery History of hysterectomy Social History housing: house Smoking Status: Never smoker ROS ROS ED Constitutional Constitutional ED: Denies chills or fever(s) Eyes Eyes: Denies blurry vision or change in vision ENT ENT ED: Denies rhinorrhea or sore throat Cardiovascular Cardiovascular: Denies chest pain or palpitations Respiratory/Chest Respiratory/Chest: Denies cough or dyspnea Gastrointestinal Gastrointestinal: Reports abdominal pain, nausea and vomiting; Denies constipation, diarrhea or melena Genitourinary Genitourinary ED: Denies dysuria or hematuria Musculoskeletal Musculoskeletal: Reports back pain; Denies neck pain Integumentary Reports rash; Denies abscess Neurologic Neurologic: Denies headache(s) or weakness Allergic/Immunologic Allergic/Immunologic ED: Denies mouth swelling or urticaria EXAM Physical Exam Const Vital Signs: 09/24/24 21:39 09/24/24 23:39 Temperature 97.9 F Temperature Source Temporal Pulse Rate 79 86 Respiratory Rate 16 18 Blood Pressure 169/89 H 132/81 H Blood Pressure Mean 115 98 Pulse Ox 98 97 Oxygen Delivery Method Room Air Room Air Positive well nourished and well developed Constitutional Narrative: BMI is 32.8 General Appearance ED: well developed and NAD HEENT Reports moist mucous membranes normocephalic and atraumatic Neck supple and no JVD Resp normal respiratory effort and clear to auscultation bilaterally Cardio regular rate and regular rhythm GI non-distended Palpation: soft and tender epigastric, LLQ, RLQ, LUQ, RUQ, periumbilical and suprapubic; Negative for guarding or rebound tenderness present Extremity full ROM General Extremety ED: Negative for edema or tenderness General Extremity: Negative for edema Neuro CN's II-XII intact bilaterally, moves all extremities and no sensory deficits noted Sensorium / Orientation: alert Motor Exam: strength 5/5 throughout Psych mental status grossly normal and thought process normal MDM MDM MDM Narrative Medical decision making narrative: Differential diagnosis includes but is not limited to bowel obstruction, perforation, gastritis, peptic ulcer disease, duodenal ulcer, pancreatitis, choledocholithiasis, urinary tract infection, pyelonephritis, colitis, and viral illness. CBC will be obtained to assess for leukocytosis and anemia. Comprehensive metabolic profile will be obtained to assess for electrolyte abnormality, hepatic function, and renal function. Lipase will be obtained to assess for pancreatitis. Urinalysis will be obtained to assess for urinary tract infection and hematuria. CT scan of the abdomen and pelvis will be obtained to assess for bowel obstruction, perforation, and pancreatitis. Lab Data Attestation: I reviewed the patient's lab results. Lab results narrative: CBC was reviewed and was essentially within normal limits. Comprehensive metabolic profile was reviewed. Glucose was slightly elevated at 109. AST was slightly elevated at 39 and ALT was slightly elevated at 43. The remainder is within normal limits. Lipase was reviewed and was negative. Nursing protocol serum hCG was reviewed and was negative. Urinalysis was reviewed. There are 5-10 squamous epithelial cells. There is no evidence of urinary tract infection or hematuria. Labs: Laboratory Results - last 24 hr 09/24/24 09/24/24 21:50 23:00 WBC 7.7 RBC 3.97 L Hgb 12.4 Hct 35.7 L MCV 89.9 MCH 31.2 MCHC 34.7 RDW Std Deviation 41.2 RDW Coeff of Bibi 12.6 Plt Count 344 MPV 8.6 Immature Gran % (Auto) 0.300 Neut % (Auto) 42.9 L Lymph % (Auto) 45.7 H [place] % (Auto) 6.9 Eos % (Auto) 3.7 Baso % (Auto) 0.5 Absolute Neuts (auto) 3.3 Absolute Lymphs (auto) 3.50 Nucleated RBC % 0 Sodium 141 Potassium 4.2 Chloride 108 Carbon Dioxide 22.7 Anion Gap 11 BUN 20 H Creatinine 1.01 Estim Creat Clear Calc 76.03 Est GFR (MDRD) Non-Af 69 BUN/Creatinine Ratio 19.3 Glucose 109 H Calcium 9.1 Total Bilirubin 0.19 AST 39 H ALT 43 H Alkaline Phosphatase 85 Total Protein 7.3 Albumin 4.2 Globulin 3.1 Albumin/Globulin Ratio 1.4 Lipase 47 Serum , Qual NEGATIVE Urine Color Yellow Urine Clarity Sl. Cloudy Urine pH 5.0 Ur Specific [place] 1.025 Urine Protein 30 H Urine Glucose (UA) Normal Urine Ketones Negative Urine Occult Blood 10 H Urine Nitrite Negative Urine Bilirubin Negative Urine Urobilinogen Normal Ur Leukocyte Esterase Negative Urine RBC 0-5 SEEN Urine WBC 0-5 SEEN Ur Squamous Epith Cells 5-10 SEEN Amorphous Sediment 1+ Urine Bacteria 2+ Urine Mucus 0 SEEN Radiography Diagnostic Testing: Clinical Impression(s) from Imaging Studies Abdomen/Pelvis CT 09/24/24 22:39 IMPRESSION: 1. No acute abdominopelvic finding. 2. Mild hepatomegaly with diffuse hepatic steatosis. Reading Location: [facility] CT scan of the abdomen and pelvis was obtained. There is no acute intra-abdominal finding. There is no free air or free fluid. There is no evidence of bowel obstruction or perforation. There is mild hepatomegaly. This was interpreted by the radiologist and was also independently reviewed by myself. Treatment and Re-Evaluation :: Patient was given IV fluids, morphine, and Zofran. Patient was resting comfortably on reevaluation. Patient was advised of her findings. Patient was instructed to start with a liquid diet and advance as tolerated. Patient is given prescription for Zofran. Patient was instructed to follow-up with her primary care physician in 5 to 7 days. Patient was instructed to return if worse in any way. Patient understood and was agreeable with the plan. All questions were answered. Discharge Plan Triage Chief Complaint: Abd Pain ED Provider: Sumanth Coyne Dx/Rx/DC Orders Clinical Impression: Abdominal pain, Elevated blood pressure reading, Body mass index (BMI) of 30 to 39 in adult Instructions: ED Abdominal Pain Unkn Cause Fem Prescriptions: New ondansetron 4 mg tablet,disintegrating 4 mg PO Q8H PRN PRN (Reason: Nausea) Qty: 10 0RF Discontinued ondansetron 8 mg tablet,disintegrating 8 mg PO TID PRN PRN (Reason: nausea and vomiting) No Action pantoprazole 40 mg tablet,delayed release (DR/EC) 40 mg PO DAILY amlodipine 5 mg tablet 5 mg PO DAILY Eliquis 5 mg tablet 5 mg PO BID carvedilol 3.125 mg tablet 1.5625 mg PO DAILY tramadol 50 mg tablet 50 mg PO Q6H PRN PRN (Reason: Pain) 3 Days Qty: 12 0RF carvedilol 25 mg tablet 25 mg PO DAILY Primary Care Provider: Dwayne Dorado Referrals: Dwayne Dorado MD [Primary Care Provider] - 5-7 Days Print Language: Pashto Disposition Disposition: Home, Self Care
[2024-09-24] MEDS: Morphine 4 MG/ML Syringe IV (22:55)
[2024-09-24] MEDS: Ondansetron 4 MG/2 ML Vial IV (22:55)
[2024-09-24] MEDS: Contrast Allergy Safety Check IV (22:56)
[2024-09-24] MEDS: 0.9% Normal Saline (1000mL) 1,000 ML 999 ML IV (22:56)
[2024-09-24 23:06] LABS: Color, Urine Yellow (Yellow); Glucose, Dipstick Normal (Normal); Ketone-Dipstick Negative (Negative); Leukocyte Esterase-Dipstick Negative /ul (Negative); Nitrite-Dipstick Negative (Negative); Occult Blood-Urine 10 /ul (Negative); Protein-Dipstick 30 mg/dl (Negative); Specific Gravity, Urine 1.025 (1.002-1.030); Urine Bilirubin Dipstick Negative (Negative); Urine Clarity Sl. Cloudy (Clear); Urine Urobilinogen Normal (Normal)
[2024-09-24 23:13] LABS: Bacteria 2+ /hpf (None Seen); Mucous, Urine 0 SEEN /hpf (<or=2+); Red Blood Cells-Urine 0-5 SEEN /hpf (0-5); Squamous Epithelial Cells - UA 5-10 SEEN /hpf (5-10); White Blood Cells 0-5 SEEN /hpf (0-5)
[2024-09-24 23:14] LABS: Amorphous Sediment 1+
[2024-09-24 23:39] VITALS: BP 132/81; PULSE 86; RESP 18; O2SAT 97
== END 2024-09-25 01:07 | disposition home or self-care (01) ==
PROVIDERS: Emergency Provider Emergency Medicine; PCP Family Medicine; Referring Provider Emergency Medicine; Visit Provider Emergency Medicine
DX: R10.9 Unspecified abdominal pain (principal); R11.2 Nausea with vomiting, unspecified; I73.9 Peripheral vascular disease, unspecified; I10 Essential (primary) hypertension; Z79.01 Long term (current) use of anticoagulants; Z79.899 Other long term (current) drug therapy; Z90.710 Acquired absence of both cervix and uterus
CPT/HCPCS: 74177; 80053; 81001; 83690; 84703; 85025; 93922; 96361; 96374; 96375; 99282; Q9967; A4216; J2405

== ENCOUNTER → 2024-09-25 | Outpatient (CLI) | payer MEDICAID, SELFPAY ==
--- NOTE | 2024-09-25 13:58 | ART_ITS ---
Reason For Study Reason For Study: PVD Procedure A bilateral lower extremity continuous wave Doppler with analog waveform analysis and ankle brachial indexes. Left Segmental Pressures Left brachial= 127mmHg. Left posterior tibial artery = 147mmHg. Left dorsalis pedis artery = 152mmHg. Left digit = 137 mmHg. The left dorsalis pedis waveforms are triphasic. The left posterior tibial artery waveforms are triphasic. Right Segmental Pressures Right brachial= 127mmHg. Right posterior tibial artery = 154mmHg. Right dorsalis pedis artery = 147mmHg. Right digit = 163 mmHg. The right dorsalis pedis waveforms are triphasic. The right posterior tibial artery waveforms are triphasic. Indices The right ankle brachial index by the dorsalis pedis is 1.16. The right ankle brachial index by the posterior tibial artery is 1.21. The right digital-brachial index is 1.28. The left ankle brachial index by the dorsalis pedis is 1.20. The left ankle brachial index by the posterior tibial artery is 1.16. The left digital-brachial index is 1.08. VL/Ankle Brachial Index Interpretation Summary Right GIANNI 1.21, normal. TBI and Doppler/PVR waveforms of the right ankle normal at rest. Left GIANNI 1.2, normal. TBI and Doppler/PVR waveforms of the left ankle normal at rest. Ordering Physician: Dwayne Dorado Referring Physician: DWAYNE DORADO MD Performed By: AMIRA THORPE RVT
== END | disposition home or self-care (01) ==
LOC: CVS 13:54
PROVIDERS: PCP Family Medicine; Referring Provider Family Medicine; Visit Provider Family Medicine
DX: I73.9 Peripheral vascular disease, unspecified (principal)
CPT/HCPCS: 93922

== ENCOUNTER 2024-10-01 21:22 | Emergency (ER) | payer MEDICAID, SELFPAY ==
[2024-10-01 21:23] VITALS: BP 153/93; PULSE 86; RESP 16; TEMP 36.6; O2SAT 100
[2024-10-01 21:25] VITALS: BMI 33.5
--- NOTE | 2024-10-01 21:27 | EDS_ITS ---
HPI History of Present Illness Chief Complaint: Lower Extremity Injury PFSH PFS Medical History Urinary tract infection Flank pain Anemia Easy bruising Restless legs History of stress test Wears glasses Post-menopausal Pulmonary embolism History of IBS Gastric reflux Non-smoker Asthma Cardiology follow-up encounter Hypertension Home Medications ?Medication ?Instructions ?Recorded ?Last Taken ?Type amlodipine 5 mg tablet 5 mg PO DAILY blood pressure 12/04/23 06/19/24 History apixaban 5 mg tablet (Eliquis) 5 mg PO BID blood thinn er 12/04/23 06/16/24 History pantoprazole 40 mg tablet,delayed 40 mg PO DAILY reflu x 12/04/23 06/19/24 History release carvedilol 3.125 mg tablet 1.5625 mg PO DAILY heart 06/19/24 History carvedilol 25 mg tablet 25 mg PO DAILY 07/30/24 Unkn own History tramadol 50 mg tablet 50 mg PO Q6H PRN PRN Pain 3 days 07/30/24 Unknown Rx #12 tabs ondansetron 4 mg disintegrating 4 mg PO Q8H PRN PRN Na usea #10 tabs 09/25/24 Unknown Rx tablet Allergy/AdvReac Type Severity Reaction Status Date / Time Penicillins Allergy Anaphylaxis Verified 10/01/24 21:25 naproxen (From Naprosyn) AdvReac Unknown Nausea Verified 10/01/24 21:25 codeine AdvReac Nausea Verified 10/01/24 21:25 Family History Brother Asthma Grandmother Diabetes Myocardial infarction Father Hypertension Mother Uterine cancer Surgical History History of cystoscopy History of cardiac catheterization History of laparoscopic cholecystectomy History of bladder surgery History of hysterectomy Social History housing: house Smoking Status: Never smoker EXAM Physical Exam Const Vital Signs: 10/01/24 21:23 Temperature 97.8 F Temperature Source Oral Pulse Rate 86 Respiratory Rate 16 Blood Pressure 153/93 H Blood Pressure Mean 113 Pulse Ox 100 Oxygen Delivery Method Room Air MDM MDM MDM Narrative Medical decision making narrative: HISTORY OF PRESENT ILLNESS: Chief complaint: Leg pain 48-year-old female presents with pain in left louis after hitting leg on stairs. She notes takes Eliquis. She further states she was walking up the stairs and her foot slipped. Her left anterior upper louis hit the corner of the stair. Happened approximately 3 PM. Since then she has had swelling and concerned because he is on a blood thinner. Denies any knee or hip pain. Denies any head trauma or loss of consciousness. REVIEW OF SYSTEMS: Pertinent positives: Leg pain Pertinent negatives: Numbness, tingling, loss of sensation PHYSICAL EXAM: Nursing triage notes reviewed, Vital signs reviewed Constitutional: please see mdm Lungs: Clear to auscultation, No wheezing or rales. No increased work of breathing, no conversational dyspnea, no accessory muscle use, no nasal flaring. No respiratory distress noted Heart: Regular rate and rhythm, No murmurs, No rubs and No gallops, 2+ distal pulses (radial, femoral, posterior tibial) in all extremities Extremities: Approximately 2 x 2 cm area of hematoma noted to the proximal anterior tibia. Tender to touch. Compartments are soft. No obvious bleeding. Neuro: Intact sensation L1-S1 dermatomal distributions. Intact 5/5 strength in hip flexion (T12-L3). Knee extension (L2-L4). Ankle dorsiflexion (L4-L5). Ankle plantar flexion (S1). Great toe extension (L5). 2+ patellar and Achilles DTRs. Skin: No rash MEDICAL DECISION MAKING: Chief Complaint: please see HPI External records reviewed: Reviewed prior imaging studies: Reviewed x-ray of the left tib-fib from 2023 showed no acute osseous abnormality. Factors affecting care: VTE on Eliquis, GERD, hypertension, Social determinants of health: none History obtained from others: none Consults: none [facility] Narrative: The patient was initially hemodynamically stable, afebrile and nontoxic- appearing. Exam with a left/tibia hematoma. I considered the following differential diagnosis: Bone contusion, hematoma, fracture I obtained an x-ray to rule out a bony injury. ALL IMAGES (IF OBTAINED) HAVE BEEN PERSONALLY REVIEWED AND INTERPRETED BY MYSELF. X-ray of the left tibia/fibula was read and reviewed by myself and showed no acute fracture or dislocation. RICE therapy recommended. Strict return precautions discussed. The patient and/or family, caregivers express understanding. The patient and/or family, caregivers agrees with the plan. Shared decision making: I will have a discussion with the patient and or visitors regarding risk/benefi ts of further testing or admission. They will be made aware of of the risk/benefits inherent in this decision they will be given the opportunity to voice understanding. Total critical care time today provided was at least 0 minutes. This excludes separately billable procedures. Critical care time (if documented) is secondary to the patient having high probability of clinically significant/life threatening deterioration in the patient's condition which required my urgent intervention. Impression: 1. Acute left leg pain 2. Left leg hematoma Dispo: discharge This note was generated with [employer] dictation software. It may contain incorrect words, spelling, and punctuation that were not noted in review of the chart prior to signing. Radiography Diagnostic Testing: Clinical Impression(s) from Imaging Studies Tibia/Fibula X-Ray 10/01/24 21:33 IMPRESSION: NO ACUTE FRACTURE OR DISLOCATION. Mild soft tissue swelling of the anterior proximal leg. [facility] Discharge Plan Triage Chief Complaint: Lower Extremity Injury ED Provider: Albert Sykes Dx/Rx/DC Orders Clinical Impression: Hematoma Instructions: ED Hematoma, ED RICE Prescriptions: No Action pantoprazole 40 mg tablet,delayed release (DR/EC) 40 mg PO DAILY amlodipine 5 mg tablet 5 mg PO DAILY Eliquis 5 mg tablet 5 mg PO BID carvedilol 3.125 mg tablet 1.5625 mg PO DAILY tramadol 50 mg tablet 50 mg PO Q6H PRN PRN (Reason: Pain) 3 Days Qty: 12 0RF carvedilol 25 mg tablet 25 mg PO DAILY ondansetron 4 mg tablet,disintegrating 4 mg PO Q8H PRN PRN (Reason: Nausea) Qty: 10 0RF Stand Alone Forms: ED Work / School Excuse Primary Care Provider: Dwayne Dorado Referrals: Dwayne Dorado MD [Primary Care Provider] - Activity Restrictions/Additional Instructions: Thank you for trusting us with your care today! Your x-ray was negative for signs of a fracture or broken bone. You are suffering from a hematoma. Please rest, ice and elevate the involved extremity. Please add compression with an Meek wrap. Please take Tylenol (2 pills, 650 mg) every 6 hours as needed for pain and fever control. Please return to the emergency department if your symptoms change or worsen. Please follow with your primary care physician for further outpatient evaluation and management. Print Language: Finnish Disposition Disposition: Home, Self Care Discharge Date/Time: 10/01/24 22:36
--- NOTE | 2024-10-01 21:33 | RAD_ITS ---
PROCEDURE: TIBIA FIBULA 2 VIEWS 10/01/2024 REASON FOR EXAM: PROXIMAL TIBIAL TTP, HEMATOMA R/O FX TECHNIQUE: 2 views of the left tibia and fibula COMPARISON: None FINDINGS: Bones: No fracture. No suspicious bone lesion. Joints: Normal alignment at the knee and ankle. Soft tissues: Mild soft tissue swelling of the anterior proximal leg. Other: RAD/Tibia & Fibula 2 Views IMPRESSION: NO ACUTE FRACTURE OR DISLOCATION. Mild soft tissue swelling of the anterior proximal leg. Reading Location: [facility]
== END 2024-10-01 22:36 | disposition home or self-care (01) ==
PROVIDERS: Emergency Provider Emergency Medicine; PCP Family Medicine; Visit Provider Emergency Medicine
DX: S80.12XA Contusion of left lower leg, initial encounter (principal); W18.43XA Slipping, tripping and stumbling without falling due to stepping from one level to another, initial encounter; I10 Essential (primary) hypertension; K21.9 Gastro-esophageal reflux disease without esophagitis; Z79.01 Long term (current) use of anticoagulants; Z79.899 Other long term (current) drug therapy
CPT/HCPCS: 73590; 99282

== ENCOUNTER → 2024-10-16 | Outpatient (CLI) | payer MEDICAID, SELFPAY ==
[2024-10-16 21:54] LABS: D-Dimer Quantitative (DVT/PE) 0.27 FEU/ug/m (0.27-0.49)
== END | disposition home or self-care (01) ==
LOC: MFPLAB 16:13
PROVIDERS: PCP Family Medicine; Referring Provider Family Medicine; Visit Provider Family Medicine
DX: R22.40 Localized swelling, mass and lump, unspecified lower limb (principal)
CPT/HCPCS: 36415; 85379

== ENCOUNTER → 2024-10-17 | Outpatient (CLI) | payer MEDICAID, SELFPAY ==
--- NOTE | 2024-10-17 09:56 | VDLE_ITS ---
Reason For Study Reason For Study: Swelling RIGHT LEFT CFV is compressible, spontaneous, phasic, competent GSV is normal. and demonstrates normal augmentation. CFV is compressible, spontaneous, phasic, competent, Procedure and demonstrates normal augmentation. This is a venous duplex using B-mode, color flow and FV is compressible, spontaneous, phasic, competent spectral Doppler. and demonstrates normal augmentation. Exam performed in department. POP V is compressible, spontaneous, phasic, competent A preliminary report was called and/or faxed to and demonstrates normal augmentation. Dwayne Dorado MD. T/P Trunk is compressible. PTV is compressible. LT PerV is compressible. VL/Venous Duplex US, Unilateral Interpretation Summary Deep veins of the left lower extremity are patent and compressible segmentally. There is no evidence of left lower extremity deep vein thrombosis. The left great saphenous vein appears patent an d compressible segmentally. Ordering Physician: Dwayne Dorado Referring Physician: Dwayne Dorado Performed By: Venus Flores RVT
== END | disposition home or self-care (01) ==
LOC: CVS 09:50
PROVIDERS: PCP Family Medicine; Referring Provider Family Medicine; Visit Provider Family Medicine
DX: R22.40 Localized swelling, mass and lump, unspecified lower limb (principal)
CPT/HCPCS: 93971

== ENCOUNTER 2024-10-23 11:36 | Emergency (ER) | payer MEDICAID, SELFPAY ==
[2024-10-23] VITALS (7 sets, daily range): BP systolic 120–138; BP diastolic 80–94; PULSE 74–79; RESP 15–16; TEMP 36.4–37.2; O2SAT 96–99; BMI 31.5
--- NOTE | 2024-10-23 12:39 | CT_ITS ---
PROCEDURE: ABDOMEN/PELVIS W IV CONT ONLY 10/23/2024 REASON FOR EXAM: RIGHT FLANK PAIN, FEVER, VOMITING/DIARRHEA TECHNIQUE: Abdomen and pelvis CT with intravenous contrast. Coronal and Sagittal reconstruction series were provided. PATIENT PREPARATION: Per protocol ORAL CONTRAST TYPE: None. CONTRAST: Isovue-300 VOLUME: 100 mL One or more dose reduction techniques were used (e.g., Automated exposure control, adjustment of the mA and/or kV according to patient size, use of iterative reconstruction technique. RADIATION DOSE SUMMARY: CTDlvol: 16.3 mGy DLP: 926.87 mGycm COMPARISON: Comparison is made with prior study dated September 24, 2004. FINDINGS: Lung bases: Unremarkable Liver: Diffuse fatty infiltration. Mild hepatomegaly. Gallbladder: Surgically absent. Spleen: Normal size. Pancreas: Normal size without evidence of mass surrounding inflammation or ductal dilation. Adrenals: Unremarkable Kidneys: Normal renal sizes. No hydronephrosis. Bladder: Unremarkable Reproductive Organs: Unremarkable Bowel: Colonic diverticulosis without diverticulitis. Small hiatal hernia. Appendix: Unremarkable Lymph nodes: Unremarkable. Vasculature: The abdominal aorta and IVC are normal. Peritoneum / Retroperitoneum: Unremarkable Bones: Unremarkable CT/Abdomen/Pelvis W IV Cont ONLY IMPRESSION: Mild hepatomegaly and diffuse fatty infiltration of the liver. Status post cholecystectomy. Reading Location: [place] [address]
[2024-10-23] MEDS: 0.9% Normal Saline (1000mL) 1,000 ML 999 ML IV (13:17)
[2024-10-23] MEDS: Ondansetron 4 MG/2 ML Vial IV (13:17)
[2024-10-23] MEDS: Morphine 4 MG/ML Syringe IV (13:19)
[2024-10-23 13:23] LABS: Absolute Neutrophil Count 5.1 X10^3/uL (2.0-7.7); Basophil# 0.01 X10^3/uL; Basophil% 0.1 % (0-1); Eosinophil# 0.17 X10^3/uL; Eosinophils% 2.1 % (0-5); Hematocrit 38.2 % (37-47); Lymphocyte % 26.3 % (19-41); Mean Corpuscular Hgb 30.9 pg (27.0-32.0); Mean Corpuscular Volume 90.7 fL (81-99); Mean Platelet Vol. 9.1 fl (6.2-12.0); Monocyte# 0.57 X10^3/uL; Monocyte% 7.1 % (0-10); NRBC Flagged by Analyzer 0 % (0-5); Neutrophil # 5.12 X10^3/uL (2.7-7.7); Neutrophil % 64.1 % (47-70); Platelet Count 273 K/mm3 (150-450); RBC Distribution Width CV 12.8 % (11.6-14.6); Red Blood Count 4.21 M/mm3 (4.2-5.4)
[2024-10-23 13:52] LABS: ALB/GLOB Ratio 1.3 RATIO (0.9-2.4); AST(SGOT) 67 U/L (<=31); Alanine Aminotransfer ALT/SGPT 78 U/L (<=34); Albumin, Serum 4.1 g/dL (3.5-5.0); Alkaline Phosphatase 98 U/L (35-104); Anion Gap 11 (5-15); BUN 17 mg/dL (4-19); BUN/Creat Ratio 16.6 RATIO (10-20); Chloride 106 mmol/L (98-108); Creatinine, Serum 1.04 mg/dL (0.70-1.20); EST Glomerular Filtration Rate 67 (>60); Estimated Creatinine Clearance 72.42 ml/min (50-250); Globulin 3.3 g/dL (2.2-4.2); Glucose 96 mg/dL (70-99); Lactic Acid < 1.0 mmol/L (0.0-2.0); Lipase 40 U/L (13-75); Potassium 3.2 mmol/L (3.3-5.1); Protein, Total 7.4 g/dL (5.9-8.4); Sodium Level 139 mmol/L (133-145); Total Bilirubin 0.48 mg/dL (0.00-1.30)
--- NOTE | 2024-10-23 13:58 | EX.ED.DYSGE1 ---
HPI History of Present Illness Chief Complaint: Nausea/Vomiting/Diarrhea Informant: patient Narrative Narrative: Patient is a 48-year-old female with history of kidney stones requiring stents and left ovarian cyst presenting with fever, nausea, vomiting and diarrhea as well as right-sided abdominal pain. Patient states her symptoms started Sunday evening. She denies any sick contacts. She is continue to have regular vomiting and diarrhea. She denies any black or blood in her vomit or her stool. She is last night she had a fever up to 103. She also states she cannot eat and she cannot give anything down. She states she has pain on the right side of her abdomen that radiates into her back. She is having associated leg cramps. Denies any urinary symptoms such as dysuria, hematuria or frequency. Denies any history of C. difficile denies any recent antibiotics. She initially spoke to her primary care doctor this morning recommend she come to the ER for further evaluation. No longer has her gallbladder. Does follow with Dr. Disla for her kidney stones. No other complaints or concerns reported at this time. [facility] Medical History Urinary tract infection Flank pain Anemia Easy bruising Restless legs History of stress test Wears glasses Post-menopausal Pulmonary embolism History of IBS Gastric reflux Non-smoker Asthma Cardiology follow-up encounter Hypertension Home Medications ?Medication ?Instructions ?Recorded ?Last Taken ?Type amlodipine 5 mg tablet 5 mg PO DAILY blood pressure 12/04/23 06/19/24 History apixaban 5 mg tablet (Eliquis) 5 mg PO BID blood thinner 12/04/23 06/16/24 History pantoprazole 40 mg tablet,delayed 40 mg PO DAILY reflux 12/04/23 06/19/24 History release carvedilol 3.125 mg tablet 1.5625 mg PO DAILY heart 05/05/24 06/19/24 History carvedilol 25 mg tablet 25 mg PO DAILY 07/30/24 Unknown History tramadol 50 mg tablet 50 mg PO Q6H PRN PRN Pain 3 days 07/30/24 Unknown Rx #12 tabs ondansetron 4 mg disintegrating 4 mg PO Q8H PRN PRN Nausea #10 tabs 09/25/24 Unknown Rx tablet dicyclomine 20 mg tablet 20 mg PO TID PRN abdominal pain 10/23/24 Unknown Rx #10 tabs ondansetron 4 mg disintegrating 4 mg PO Q8H PRN PRN Nausea #10 tabs 10/23/24 Unknown Rx tablet Allergy/AdvReac Type Severity Reaction Status Date / Time Penicillins Allergy Anaphylaxis Verified 10/23/24 11:39 naproxen (From Naprosyn) AdvReac Unknown Nausea Verified 10/23/24 11:39 codeine AdvReac Nausea Verified 10/23/24 11:39 Family History Brother Asthma Grandmother Diabetes Myocardial infarction Father Hypertension Mother Uterine cancer Surgical History History of cystoscopy History of cardiac catheterization History of laparoscopic cholecystectomy History of bladder surgery History of hysterectomy Social History housing: house Smoking Status: Never smoker EXAM Physical Exam Const Vital Signs: 10/23/24 11:36 10/23/24 11:38 10/23/24 12:38 Temperature 97.7 F L 97.7 F L 98.9 F Temperature Source Oral Oral Oral Pulse Rate 76 76 76 Respiratory Rate 16 16 16 Blood Pressure 138/94 H 138/94 H 136/88 H Blood Pressure Mean 108 108 104 Pulse Ox 96 97 98 Oxygen Delivery Method Room Air Room Air Room Air 10/23/24 13:36 10/23/24 15:00 Temperature Temperature Source Pulse Rate 79 77 Respiratory Rate 15 16 Blood Pressure 131/80 H 120/81 H Blood Pressure Mean 97 94 Pulse Ox 97 98 Oxygen Delivery Method Room Air MDM MDM MDM Narrative Medical decision making narrative: Patient presents with nausea, vomiting, diarrhea and right flank pain. She reports fever last night up to 103. Patient vital signs normal in the emergency room. Differential includes gastroenteritis, diverticulitis, renal colic, pyelonephritis, UTI, OSIRIS and electrolyte abnormality. Patient initially given IV fluids, Zofran and morphine for symptom control. CBC and BMP largely normal. She has mild hypokalemia potassium of 3.2. Is a mild transaminitis with an AST of 67 and a ALT of 78 which is only minimally above her baseline. Likely this is reactive associate with her vomiting. Lipase is normal suspicion for pancreatitis. Urinalysis is not consistent with infection with no nitrates, negative leukocyte esterase and contamination. She does not report any dysuria or frequency. CT of the abdomen pelvis does not show any acute process to explain her symptoms. Patient was given oral Bentyl but states she did throw up it is unclear she threw up this medication. Is complaining of further nausea and is given a dose of IV Haldol. She has further improvement of this and tolerate oral potassium in the emergency room per nursing staff. Will discharge patient home with a prescription for Zofran as well as Bentyl. Counseled that the cause of her symptoms is not clear but is possible this could be more viral in nature. At this time I do not think she requires admission for antibiotics or intractable pain/vomiting. Given return precautions. Discharged home in stable condition. Lab Data Attestation: I reviewed the patient's lab results. Labs: Laboratory Results - last 24 hr 10/23/24 10/23/24 13:12 14:24 WBC 8.0 RBC 4.21 Hgb 13.0 Hct 38.2 MCV 90.7 MCH 30.9 MCHC 34.0 RDW Std Deviation 42.0 RDW Coeff of Bibi 12.8 Plt Count 273 MPV 9.1 Immature Gran % (Auto) 0.300 Neut % (Auto) 64.1 Lymph % (Auto) 26.3 [place] % (Auto) 7.1 Eos % (Auto) 2.1 Baso % (Auto) 0.1 Absolute Neuts (auto) 5.1 Absolute Lymphs (auto) 2.10 Nucleated RBC % 0 Sodium 139 Potassium 3.2 L Chloride 106 Carbon Dioxide 23.0 Anion Gap 11 BUN 17 Creatinine 1.04 Estim Creat Clear Calc 72.42 Est GFR (MDRD) Non-Af 67 BUN/Creatinine Ratio 16.6 Glucose 96 Lactic Acid < 1.0 Calcium 9.0 Total Bilirubin 0.48 AST 67 H ALT 78 H Alkaline Phosphatase 98 Total Protein 7.4 Albumin 4.1 Globulin 3.3 Albumin/Globulin Ratio 1.3 Lipase 40 Urine Color Yellow Urine Clarity Sl. Cloudy Urine pH 6.0 Ur Specific [place] 1.020 Urine Protein 30 H Urine Glucose (UA) Normal Urine Ketones Negative Urine Occult Blood 10 H Urine Nitrite Negative Urine Bilirubin 1 H Urine Urobilinogen 1 H Ur Leukocyte Esterase Negative Urine RBC 0 SEEN Urine WBC 0-5 SEEN Ur Squamous Epith Cells 5-10 SEEN Urine Bacteria 2+ Urine Mucus 1+ Radiography Diagnostic Testing: Clinical Impression(s) from Imaging Studies Abdomen/Pelvis CT 10/23/24 12:39 IMPRESSION: Mild hepatomegaly and diffuse fatty infiltration of the liver. Status post cholecystectomy. Reading Location: [place] [address] Discharge Plan Triage Chief Complaint: Nausea/Vomiting/Diarrhea ED Provider: Neeta Gonzales Dx/Rx/DC Orders Clinical Impression: Acute hypokalemia, Nausea vomiting and diarrhea Instructions: ED Diet Vomiting Diarrhea, ED Flank Pain, Uncertain Cause, ED FOOD POIS or G-ENTERITIS 6y-adam, ED Hypokalemia Prescriptions: New ondansetron 4 mg tablet,disintegrating 4 mg PO Q8H PRN PRN (Reason: Nausea) Qty: 10 0RF dicyclomine 20 mg tablet 20 mg PO TID PRN (Reason: abdominal pain) Qty: 10 0RF No Action pantoprazole 40 mg tablet,delayed release (DR/EC) 40 mg PO DAILY amlodipine 5 mg tablet 5 mg PO DAILY Eliquis 5 mg tablet 5 mg PO BID carvedilol 3.125 mg tablet 1.5625 mg PO DAILY tramadol 50 mg tablet 50 mg PO Q6H PRN PRN (Reason: Pain) 3 Days Qty: 12 0RF carvedilol 25 mg tablet 25 mg PO DAILY ondansetron 4 mg tablet,disintegrating 4 mg PO Q8H PRN PRN (Reason: Nausea) Qty: 10 0RF Primary Care Provider: Dwayne Dorado Referrals: Dwayne Dorado MD [Primary Care Provider] - Activity Restrictions/Additional Instructions: Your potassium is mildly low but your lab work is otherwise normal or at your baseline today. No acute kidney stone, kidney/bladder infection or intestinal infection noted today. The exact cause your symptoms is not clear but this could be viral in nature. Continue to push fluids, take Tylenol as needed for fever or discomfort. Follow-up with your primary care doctor. Return if you have progression or worsening of your symptoms. Print Language: Ivorian Disposition Disposition: Home, Self Care
[2024-10-23 14:29] LABS: Red Blood Cells-Urine 0 SEEN /hpf (0-5)
[2024-10-23 14:57] LABS: Color, Urine Yellow (Yellow); Glucose, Dipstick Normal (Normal); Ketone-Dipstick Negative (Negative); Leukocyte Esterase-Dipstick Negative /ul (Negative); Nitrite-Dipstick Negative (Negative); Occult Blood-Urine 10 /ul (Negative); Protein-Dipstick 30 mg/dl (Negative); Urine Clarity Sl. Cloudy (Clear); Urine Urobilinogen 1 mg/dl (Normal)
[2024-10-23] MEDS: Dicyclomine 10 MG Capsule 20 MG PO (15:09)
[2024-10-23 15:44] LABS: Urine Bilirubin Dipstick 1 mg/dL (Negative)
[2024-10-23 16:06] LABS: White Blood Cells 0-5 SEEN /hpf (0-5)
[2024-10-23 16:07] LABS: Bacteria 2+ /hpf (None Seen); Mucous, Urine 1+ /hpf (<or=2+); Squamous Epithelial Cells - UA 5-10 SEEN /hpf (5-10)
[2024-10-23] MEDS: Potassium Chloride Oral Soln 20 MEQ/15 ML UDC PO (16:31)
[2024-10-23] MEDS: Haloperidol Lactate 5 MG/ML Vial 1 MG IV (16:31)
== END 2024-10-23 17:24 | disposition home or self-care (01) ==
PROVIDERS: Emergency Provider Emergency Medicine; PCP Family Medicine; Visit Provider Emergency Medicine
DX: E87.6 Hypokalemia (principal); R11.2 Nausea with vomiting, unspecified; R50.9 Fever, unspecified; R19.7 Diarrhea, unspecified; I10 Essential (primary) hypertension; K21.9 Gastro-esophageal reflux disease without esophagitis; Z79.01 Long term (current) use of anticoagulants; Z79.899 Other long term (current) drug therapy; Z90.49 Acquired absence of other specified parts of digestive tract
CPT/HCPCS: 74177; 80053; 81001; 83605; 83690; 85025; 96361; 96374; 96375; 99283; Q9967; A4216; J2405

== ENCOUNTER 2024-11-30 15:24 | Emergency (ER) | payer MEDICAID, SELFPAY ==
[2024-11-30 15:25] VITALS: BP 131/84; PULSE 65; RESP 18; TEMP 36.6; O2SAT 98; BMI 32.6
--- NOTE | 2024-11-30 15:28 | RAD_ITS ---
PROCEDURE: WRIST MIN 3 VIEWS 11/30/2024 REASON FOR EXAM: PAIN TECHNIQUE: Three views of the right wrist. COMPARISON: None. FINDINGS: No evidence of acute fracture or dislocation. The soft tissues are unremarkable. RAD/Wrist min 3 Views IMPRESSION: No acute osseous abnormalities. Reading Location: [place] [address]
--- NOTE | 2024-11-30 15:54 | EX.ED.UPPERE ---
HPI History of Present Illness Chief Complaint: Upper Extremity Injury Narrative Narrative: 49-year-old female, [id number], past medical history of DVT/PE on Eliquis presents with right hand injury from a few days ago. She states that she was rearranging large [employer] tubs/boxes. 1 started to fall onto her over her head. She tried to brace it with her right hand. She sustained a hyper extension injury and complains of pain mainly on the back of her hand and radiating up towards her wrist. Pain is worse with movement. She denies other injuries. No hitting of her head or loss of consciousness. [facility] Medical History Peripheral vascular disease Urinary tract infection Flank pain Anemia Easy bruising Restless legs History of stress test Wears glasses Post-menopausal Pulmonary embolism History of IBS Gastric reflux Non-smoker Asthma Cardiology follow-up encounter Hypertension Home Medications ?Medication ?Instructions ?Recorded ?Last Taken ?Type apixaban 5 mg tablet (Eliquis) 5 mg PO BID blood thinner 12/04/23 06/16/24 History carvedilol 3.125 mg tablet 1.5625 mg PO DAILY heart 05/05/24 06/19/24 History carvedilol 25 mg tablet 25 mg PO DAILY 07/30/24 Unknown History tramadol 50 mg tablet 50 mg PO Q6H PRN PRN Pain 3 days 07/30/24 Unknown Rx #12 tabs ondansetron 4 mg disintegrating 4 mg PO Q8H PRN PRN Nausea #10 tabs 09/25/24 Unknown Rx tablet dicyclomine 20 mg tablet 20 mg PO TID PRN abdominal pain 10/23/24 Unknown Rx #10 tabs ondansetron 4 mg disintegrating 4 mg PO Q8H PRN PRN Nausea #10 tabs 10/23/24 Unknown Rx tablet methocarbamol 500 mg tablet 500 mg PO TID PRN pain/spasms #60 11/04/24 Unknown Rx tabs pantoprazole 40 mg tablet,delayed 40 mg PO BID #90 tabs 11/13/24 Unknown Rx release amlodipine 5 mg tablet 10 mg PO DAILY blood pressure 11/26/24 Unknown History cilostazol 50 mg tablet 50 mg PO BID 11/26/24 Unknown History famotidine 20 mg tablet 20 mg PO QDAY 11/26/24 Unknown History hydrocodone-acetaminophen 5-325mg 1 tab PO BID PRN 11/26/24 Unknown History 5mg-325mg ipratropium bromide 42 mcg (0.06 2 spray intranasal TID PRN 11/26/24 Unknown History %) nasal spray potassium chloride 10 mEq 10 meq PO QDAY 11/26/24 Unknown History capsule,extended release Allergy/AdvReac Type Severity Reaction Status Date / Time Penicillins Allergy Anaphylaxis Verified 11/30/24 15:26 naproxen (From Naprosyn) AdvReac Unknown Nausea Verified 11/30/24 15:26 codeine AdvReac Nausea Verified 11/30/24 15:26 Family History Brother Asthma Grandmother Diabetes Myocardial infarction Father Hypertension Mother Uterine cancer Surgical History History of cystoscopy History of cardiac catheterization History of laparoscopic cholecystectomy History of bladder surgery History of hysterectomy Social History housing: house Smoking Status: Never smoker ROS ROS ED ROS Narrative Review of systems positive for right hand pain proximally/right wrist pain worse with movement. No other injury. Uninjured at the elbow and above. EXAM Physical Exam Narrative Exam Narrative: GCS 15. ABCs intact. Cardiovascular examination regular rate and rhythm. Lungs are clear to auscultation bilaterally. Abdomen is soft, nontender, with normoactive bowel sounds. No crepitance of the wrist. Palpable radial pulse. No anatomical snuffbox tenderness. No tenderness at the elbow and above. Mild tenderness to palpation in the middle of carpal bones. No fluctuance. Able to oppose thumb. Adduction and abduction of fingers intact. Const Vital Signs: 11/30/24 15:25 Temperature 97.8 F Temperature Source Oral Pulse Rate 65 Respiratory Rate 18 Blood Pressure 131/84 H Blood Pressure Mean 99 Pulse Ox 98 Oxygen Delivery Method Room Air MDM MDM MDM Narrative Medical decision making narrative: With concern is for wrist sprain versus fracture versus carpal bone fracture versus ligamentous disruption with possible displacement. X-rays were obtained of the right wrist and 3 views and interpreted by myself independently. I see no evidence of acute fracture or osseous abnormality. I reviewed the radiology report which confirms my independent interpretation. At this point in time, she was placed in a Velcro cock up splint and told to follow-up with her primary care provider. Ice and elevation at home. She was also referred to plastic surgery/hand to follow-up as needed. I feel [id number] medications are sufficient for analgesia for her wrist/hand sprain. Return instructions to the emergency department were reviewed. Disposition is discharged home in stable condition. History & Record Review Discussion w/independent historian: Patient Radiography X-Ray: Read by ED Physician, Read by Radiologist and No Fracture Discharge Plan Triage Chief Complaint: Upper Extremity Injury ED Provider: Eulogio Acuña Dx/Rx/DC Orders Clinical Impression: Sprain of right wrist, Hand sprain Instructions: ED Hand Sprain, ED Wrist Sprain Prescriptions: No Action methocarbamol 500 mg tablet 500 mg PO TID PRN (Reason: pain/spasms) Qty: 60 0RF potassium chloride 10 mEq capsule, extended release 10 meq PO QDAY cilostazol 50 mg tablet 50 mg PO BID hydrocodone-acetaminophen 5-325 mg tablet 1 tab PO BID PRN famotidine 20 mg tablet 20 mg PO QDAY ipratropium bromide 42 mcg (0.06 %) spray,non-aerosol 2 spray intranasal TID PRN pantoprazole 40 mg tablet,delayed release (DR/EC) 40 mg PO BID Qty: 90 2RF Eliquis 5 mg tablet 5 mg PO BID amlodipine 5 mg tablet 10 mg PO DAILY carvedilol 3.125 mg tablet 1.5625 mg PO DAILY tramadol 50 mg tablet 50 mg PO Q6H PRN PRN (Reason: Pain) 3 Days Qty: 12 0RF carvedilol 25 mg tablet 25 mg PO DAILY ondansetron 4 mg tablet,disintegrating 4 mg PO Q8H PRN PRN (Reason: Nausea) Qty: 10 0RF ondansetron 4 mg tablet,disintegrating 4 mg PO Q8H PRN PRN (Reason: Nausea) Qty: 10 0RF dicyclomine 20 mg tablet 20 mg PO TID PRN (Reason: abdominal pain) Qty: 10 0RF Primary Care Provider: Dwayne Dorado Referrals: Dwayne Dorado MD [Primary Care Provider] - 1 Week if not improving Jarrett Felix MD [Med Staff - Active Staff] - As Needed Print Language: Eritrean Disposition Disposition: Home, Self Care
[2024-11-30 17:03] VITALS: BP 146/86; PULSE 70; RESP 16; TEMP 37.1; O2SAT 98
== END 2024-11-30 17:03 | disposition home or self-care (01) ==
PROVIDERS: Emergency Provider Emergency Medicine; PCP Family Medicine; Visit Provider Emergency Medicine
DX: S63.8X1A Sprain of other part of right wrist and hand, initial encounter (principal); X58.XXXA Exposure to other specified factors, initial encounter; I10 Essential (primary) hypertension; J45.909 Unspecified asthma, uncomplicated; Z79.01 Long term (current) use of anticoagulants; Z79.899 Other long term (current) drug therapy; Z86.718 Personal history of other venous thrombosis and embolism; Z86.711 Personal history of pulmonary embolism
CPT/HCPCS: 73110; 99283

== ENCOUNTER 2024-12-04 06:15 | Emergency (ER) | payer OTHER, MEDICAID, SELFPAY ==
[2024-12-04 06:17] VITALS: BP 124/76; PULSE 70; RESP 18; TEMP 36.7; O2SAT 98; BMI 32.8
--- NOTE | 2024-12-04 06:45 | RAD_ITS ---
PROCEDURE: ANKLE MIN 3 VIEWS 12/04/2024 REASON FOR EXAM: PAIN TECHNIQUE: Three views of the left ankle were obtained. COMPARISON: None. FINDINGS: There is no evidence of fracture or dislocation. There are no joint space abnormalities. There are no soft tissue abnormalities. RAD/Ankle min 3 Views IMPRESSION: Normal left ankle. Reading Location: [id number]
--- NOTE | 2024-12-04 06:45 | RAD_ITS ---
EXAM: Left tibia and fibula. CLINICAL HISTORY: Trauma. COMPARISON: None. TECHNIQUE: AP and lateral views of the left tibia and fibula were obtained. FINDINGS: The left tibia and fibula are intact. Limited evaluation of the left knee and left ankle are unremarkable. There are no soft tissue abnormalities. RAD/Tibia & Fibula 2 Views IMPRESSION: Normal left tibia and fibula. Reading Location: [id number]
--- NOTE | 2024-12-04 06:45 | RAD_ITS ---
PROCEDURE: FOOT MIN 3 VIEWS 12/04/2024 REASON FOR EXAM: PAIN TECHNIQUE: Three views of the left foot were obtained. COMPARISON: None. FINDINGS: There is no evidence of fracture or dislocation. There are no joint space abnormalities. There are no soft tissue abnormalities. RAD/Foot min 3 Views IMPRESSION: Normal left foot. Reading Location: [id number]
[2024-12-04] MEDS: oxyCODONE 5 MG Tablet 10 MG PO (06:50)
--- NOTE | 2024-12-04 07:07 | EDS_ITS ---
HPI History of Present Illness Chief Complaint: Lower Extremity Injury Informant: patient Narrative Narrative: Patient is a 49-year-old female with past medical history of hypertension and previous PE currently on Eliquis. The patient states she was at work this morning roughly half hour ago when a stack of chairs fell over and struck her on the left leg. She denies any trauma to her head or other parts of her body or loss of consciousness. She states she has pain essentially from the louis down and is concerned for potential fracture and therefore comes in for evaluation. [facility] Medical History (Updated 12/04/24 @ 22:[address] Jovani Thurman, DO) Peripheral vascular disease Urinary tract infection Flank pain Anemia Easy bruising Restless legs History of stress test Wears glasses Post-menopausal Pulmonary embolism History of IBS Gastric reflux Non-smoker Asthma Cardiology follow-up encounter Hypertension Home Medications ?Medication ?Instructions ?Recorded ?Last Taken ?Type apixaban 5 mg tablet (Eliquis) 5 mg PO BID blood thinn er 12/04/23 06/16/24 History ondansetron 4 mg disintegrating 4 mg PO Q8H PRN PRN Na usea #10 tabs 10/23/24 Unknown Rx tablet pantoprazole 40 mg tablet,delayed 40 mg PO BID #90 tab s 11/13/24 Unknown Rx release famotidine 20 mg tablet 20 mg PO QDAY 11/26/24 Unkno wn History potassium chloride 10 mEq 10 meq PO QDAY 11/26/24 Unkn own History capsule,extended release amlodipine 10 mg tablet 10 mg PO DAILY 12/02/24 Unkn own History carvedilol 3.125 mg tablet 3.125 mg PO DAILY heart 09/23 Unknown History Allergy/AdvReac Type Severity Reaction Status Date / Time Penicillins Allergy Anaphylaxis Verified 12/04/24 06:16 naproxen (From Naprosyn) AdvReac Unknown Nausea Verified 12/04/24 06:16 codeine AdvReac Nausea Verified 12/04/24 06:16 Family History Brother Asthma Grandmother Diabetes Myocardial infarction Father Hypertension Mother Uterine cancer Surgical History History of cystoscopy History of cardiac catheterization History of laparoscopic cholecystectomy History of bladder surgery History of hysterectomy Social History housing: house Smoking Status: Never smoker alcohol intake: never substance use type: does not use caffeine: Yes ROS ROS ED Constitutional Constitutional ED: Denies chills or fever(s) Eyes Eyes: Denies blurry vision or change in vision ENT ENT ED: Denies sore throat Cardiovascular Cardiovascular: Reports other Details: Negative syncope ; Denies chest pain Respiratory/Chest Respiratory/Chest: Denies cough or dyspnea Gastrointestinal Gastrointestinal: Denies abdominal pain, diarrhea, nausea or vomiting Genitourinary Genitourinary ED: Denies dysuria Musculoskeletal Musculoskeletal: Reports other Details: Positive left lower leg pain Integumentary Denies Abrasions or rash Neurologic Neurologic: Denies headache(s), paresthesias or weakness Hematologic/Lymphatic Hematologic/Lymphatic: Reports easy bleeding and easy bruising EXAM Physical Exam Const Vital Signs: 12/04/24 06:17 12/04/24 07:46 Temperature 98.1 F 97.8 F Temperature Source Oral Pulse Rate 70 68 Respiratory Rate 18 16 Blood Pressure 124/76 H 126/86 H Blood Pressure Mean 92 99 Pulse Ox 98 98 Oxygen Delivery Method Room Air Positive well nourished, well developed and obese General Appearance ED: well developed Nutritional Appearance: obese HEENT HEENT Narrative: Normocephalic atraumatic Eyes PERRL and EOMs intact bilaterally General Eye ED: Negative for scleral icterus Neck supple Neck Narrative: No bony deformity or step-off of the cervical spine no midline tenderness to palpation Chest Wall palpation of chest normal Resp normal respiratory effort and clear to auscultation bilaterally Cardio regular rate and regular rhythm Back/Spine Back/Spine Narrative: No bony deformity or step-off of the thoracic or lumbar spine no midline tenderness to palpation Extremity Extremity Narrative: Pelvis is stable there is no shortening or external rotation of either lower extremity There is mild soft tissue swelling and faint ecchymosis to the anterior aspect of the anterior aspect of the middle third of the louis. There is diffuse pain on palpation of the left lower leg below the knee. No obvious bony deformity or joint effusion. No ligamentous laxity or tendon injury noted. Compartments are soft and compressible going against compartment syndrome Neuro oriented x3, CN's II-XII intact bilaterally and no sensory deficits noted Sensorium / Orientation: alert Psych mental status grossly normal Skin no rashes or lesions noted Skin Narrative: Mild ecchymosis and soft tissue swelling to the anterior aspect of the left lower leg as documented above consistent with contusion No secondary findings of infection MDM MDM MDM Narrative Medical decision making narrative: Patient arrived to ER with stable vitals and reported mechanical trauma to the left lower leg. Differential diagnosis is for contusion versus fracture. By exam there is no signs of ligamentous or tendon injury. She does not have any signs of compartment syndrome. There are no open wounds that require closure. Therefore this time there is no need for further workup other than x-rays of the lower leg. The x-rays revealed no signs of acute fracture or dislocation or joint effusion indicating patient has multiple contusions. Therefore there is no need for further workup and she is otherwise safe for discharge with symptomatic care. History & Record Review Discussion w/independent historian: Patient Radiography Diagnostic Testing: Clinical Impression(s) from Imaging Studies Ankle X-Ray 12/04/24 06:45 IMPRESSION: Normal left ankle. Reading Location: [facility] Foot X-Ray 12/04/24 06:45 IMPRESSION: Normal left foot. Reading Location: [facility] Tibia/Fibula X-Ray 12/04/24 06:45 IMPRESSION: Normal left tibia and fibula. Reading Location: [facility] Left ankle x-rays interpreted by the emergency medicine physician reveals no acute fracture or dislocation Left foot x-ray is interpreted by the emergency medicine physician reveals no acute fracture or dislocation Left tibia/fibula x-ray as interpreted by the emergency medicine physician reveals no acute fracture or dislocation Discharge Plan Triage Chief Complaint: Lower Extremity Injury ED Provider: Jovani Thurman Dx/Rx/DC Orders Clinical Impression: Contusion of left lower leg, initial encounter, Current use of shelter anticoagulation, Hypertension Instructions: ED Contusion, Lower Extremity Prescriptions: No Action potassium chloride 10 mEq capsule, extended release 10 meq PO QDAY famotidine 20 mg tablet 20 mg PO QDAY amlodipine 10 mg tablet 10 mg PO DAILY pantoprazole 40 mg tablet,delayed release (DR/EC) 40 mg PO BID Qty: 90 2RF Eliquis 5 mg tablet 5 mg PO BID carvedilol 3.125 mg tablet 3.125 mg PO DAILY ondansetron 4 mg tablet,disintegrating 4 mg PO Q8H PRN PRN (Reason: Nausea) Qty: 10 0RF Primary Care Provider: Dwayne Dorado Referrals: [facility] [Provider Group] Dwayne Dorado MD [Primary Care Provider] - Activity Restrictions/Additional Instructions: Your x-ray showed no acute fracture or dislocation indicating your pain is secondary to soft tissue and bone bruising. Continue to ice the area to reduce pain and speed healing and take [id number] medication for pain control. Follow-up with Workmen's [employer]. for repeat evaluation and return to the ER should you have any further concerns Print Language: Italian Disposition Disposition: Home, Self Care Discharge Date/Time: 12/04/24 07:48
--- OUTSIDE RECORDS SUMMARY | 2024-12-04 07:07 | XMS RPT_ITS | CCD ---
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 Role Phone Francisco Cason Unavailable Unavailable Unavailable Kimberly Cason MD Primary Care Provider Kimberly Cason MD Primary Care Provider ELIZABETH LOWE Unavailable Yoav HSIEH MD [facility] Primary Care Physician Yemi Toribio Attending Unavail able KIMBERLY CASON Primary Care UnavailKIMBERLY Hardin Attending UnavailKIMBERLY Hardin Primary Care UnavailKIMBERLY Hardin Primary Care UnavailELIZABETH Urban Attending Unavailable AIDAN SHAH Unavailable AIDAN LEMONS Unavailable ROSE JEAN Unavailable Kimberly Cason Unavailable Main Reed Unavailable Konrad Delgado Unavailable Unavailable Francisco Cason MD Primary Care Provider [phone] Francisco Cason MD Unavailable Roxana Price Unavailable Unavailable Deejay Cain Referring Unavailable Deejay Cain Attending Unavailable Dr. Francisco Cason Primary Care Unavailable Dr. Konrad Delgado Attending Unava ilable Barrett, Dr. Farnaz López Referring Unavailab valentina Cason, Dr. Francisco Woodall Primary Care Unavailable Emre, Dr. Demarco Ruby Admitting Unavailable Unavailable Unavailable Francisco Cason MD Unavailable Roxana Price Unavailable Unavailable Blayne Weeks MD Primary Care Provider Francisco CASON Primary Care Unavailable JANNY BAI Attending Unavailable JANNY BAI Referring Unavailable BLAYNE WEEKS Primary Care Unavailable Kimberly Casno MD Primary Care Provider Sonja, Dr. Marinelli Attending Unavailable Sonja, Dr. Marinelli Referring Unavailable Yoav, Dr. Francisco Woodall Primary Care Unavailable Galilea, Dr. German Rhodes Attending Unava iljack Cason, Dr. Francisco Woodall Primary Care Unavailable MAIN REED Admitting Unavailable MAIN REED Attending Unavailable BLAYNE WEEKS Primary Care Unavailable BLAYNE WEEKS Attending Unavailable YOAV H Grace Primary Care Unavailable BLAYNE WEEKS Referring Unavailable JUAN RAMON BAIED K Attending Unavailable YOAV H Grace Primary Care Unavailable BLAYNE WEEKS Primary Care Unavailable MAIN REED Attending Unavailable DESI, BLAYNE Primary Care Unavailable BLAYNE WEEKS Attending Unavailable WEEKS, BLAYNE Primary Care Unavailable MAIN REED Attending Unavailable WEEKS, BLAYNE Primary Care Unavailable Unavailable Primary Care Provider Unavailabl e Aidan Shah DO Unavailable YOAV [facility] Primary Care Unavailable MELINDA COELLO Referring Unavailable ZAINAB CROFT Attending Unavailable REGIS CROFTI Admitting Unavailable Marylin SWEET Consulting Unavailable KOUSA, [facility] J Primary Care Unavailable Unavailable Primary Care Provider Unavailabl e DE CAPLUL GRAVES Attending Unavailable WEEKS, BLAYNE Primary Care Unavailable DE CAPITE, LUL C Referring Unavailable WEEKS, BLAYNE Primary Care Unavailable WEEKS, BLAYNE Primary Care Unavailable VERONA COOK Attending Unavailable Dwayne Stephens MD Primary Care Provider Dwayne Stephens MD Unavailable DWAYNE STEPHENS Primary Care Unavailable JUSTYN MALDONADO Referring Unavailable MYNOR LYNN Attending Unavailable GILDEA, MYNOR R Admitting Unavailable Dwayne Stephens MD Primary Care Provider Dwayne Stephens MD Referring Provider [place] IT PROGRAM AUDITOR-C, Rachel Attending Provider [phone] Mo CHAPIN, Dr. Garcia Attending Provider Mo CHAPIN, Dr. Garcia Other Provider Mony CHAPIN, Dr. Price Attending Provider Mony CHAPIN, Dr. Price Emergency Provider [place] IT PROGRAM AUDITOR-C, Rachel Referring Provider Naif HSIEH, Dr. De Santiago Admit Provider Naif HSIEH, Dr. De Santiago Attending Provider Naif HSIEH, Dr. De Santiago Referring Provider Stanford CHAPIN, Dr. Julio Attending Provider Dr. Sumanth Coyne DO Emergency Provider Dwayne Stephens MD Attending Provider Dr. Haroon Vieira DO Attending Provider Dr. Haroon Vieira DO Emergency Provider Eulogio Acuña MD Referring Provider Eulogio Acuña MD Emergency Provider Kat HSIEH, Dwayne Primary Care Provider [place] IT PROGRAM AUDITOR-C, Rachel Attending Provider Kaelyn IT PROGRAM AUDITOR-C, Rachel Referring Provider Dr. Albert Sykes DO Emergency Provider Naif HSIEH, Dr. De Santiago Admit Provider Naif HSIEH, Dr. De Santiago Attending Provider Naif HSIEH, Dr. De Santiago Referring Provider Stanford CHAPIN, Dr. Julio Attending Provider Stanford CHAPINDr. Julio Emergency Provider Dwayne Stephens MD Attending Provider Dwayne Stephens MD Referring Provider Valentina CHAPIN, Dr. Patiño Attending Provider Dr. Haroon Vieira DO Emergency Provider Eulogio Acuña MD Referring Provider Eulogio Acuña MD Emergency Provider Eulogio Acuña MD Attending Provider Dr. Sumanth Coyne DO Referring Provider Carey HSIEH, Dr. Julio Attending Provider Kat HSIEH, Dwayne Primary Care Provider Dr. Albert Sykes DO Emergency Provider Naif HSIEH, Dr. De Santiago Admit Provider Naif HSIEH, Dr. De Santiago Attending Provider Dr. Anyi Disla MD Referring Provider Kaelyn PRIETO-CRachel Attending Provider Kaelyn PEARSONCRachel Referring Provider Dr. Albert Sykes DO Attending Provider Kat HSIEH, wDayne Primary Care Provider Dr. Albert Sykes DO Emergency Provider Dr. Neeta Gonzales DO Attending Provider Dr. Neeta Gonzales DO Emergency Provider Mirian Lynch Attending Provider Paul HSIEH, Dr. Garzon Attending Provider Uma Mendes Attending Provider Kat HSIEH, Dwayne Primary Care Provider Dr. Sumanth Coyne DO Attending Provider Dr. Sumanth Coyne DO Emergency Provider Kat, Chalon Primary Care Unavailable Sumanth Coyne Attending Unavailable Kat, Chalon Primary Care Unavailable Uma Harper Attending Unavailable Uma Harper Referring Unavailable Kat, Chalon Referring Unavailable CareySumanth Attending Unavailable Kat, Chalon Primary Care Unavailable Kat, Chalon Primary Care Unavailable MonyAlbert Attending Unavailable Kat, Chalon Referring Unavailable Kat, Chalon Primary Care Unavailable [place] RidgeRachel Attending Unavailable Kat, Chalon Referring Unavailable Kat, Chalon Primary Care Unavailable Friend, Jose Consulting Unavailable Friend, Jose Attending Unavailable Kat, Chalon Primary Care Unavailable Iron RidgeRachel Attending Unavailable [place], Rachel Referring Unavailable Kat, Chalon Primary Care Unavailable Uma Harper Attending Unavailable Atanasov, Uma Referring Unavailable Kat, Chalon Primary Care Unavailable KaelynRachel Attending Unavailable [place], Rachel Referring Unavailable Kat, Chalon Referring Unavailable RonaldSumanth Attending Unavailable Kat, Chalon Primary Care Unavailable Kat, Chalon Referring Unavailable Kat, Chalon Primary Care Unavailable Uma Harper Attending Unavailable Kat, Chalon Primary Care Unavailable Wyneski, Anyi Referring Unavailable WyneskiAnyi Attending Unavailable Kat, Chalon Primary Care Unavailable WyneskiItzely Admitting Unavailable WyneskiItzely Attending Unavailable Kat, Chalon Primary Care Unavailable Friend, Jose Attending Unavailable Kat, Chalon Referring Unavailable Kat, Chalon Primary Care Unavailable WyneskiAnyi Attending Unavailable Wyneski, Anyi Referring Unavailable Kat, Chalon Attending Unavailable Kat, Chalon Primary Care Unavailable Kat, Chalon Referring Unavailable Kat, Chalon Primary Care Unavailable Uma Harper Attending Unavailable Kat, Chalon Referring Unavailable Kat, Chalon Referring Unavailable Kat, Chalon Primary Care Unavailable Mirian Gurrola Attending Unavailable Duran Miller Attending Unavailable Kat, Chalon Primary Care Unavailable Kat, Chalon Primary Care Unavailable Wyneski, Anyi Admitting Unavailable WyneskiItzely Attending Unavailable Kat, Chalon Primary Care Unavailable Aidan Davis Attending Unavailable Kat, Chalon Primary Care Unavailable Eulogio Acuña Attending Unavailable Kat, Chalon Primary Care Unavailable Neeta Gonzales Attending Unavailable Kat, Chalon Primary Care Unavailable Dany Stnaley Attending Unavailable Kat, Chalon Referring Unavailable Kat, Chalon Attending Unavailable Kat, Chalon Primary Care Unavailable Kat, Chalon Primary Care Unavailable Kat, Chalon Attending Unavailable Kat, Chalon Referring Unavailable Kat, Chalon Primary Care Unavailable Sincere Christiansen Attending Unavailable Kat, Chalon Referring Unavailable Kat, Chalon Attending Unavailable Kat, Chalon Primary Care Unavailable Kat, Chalon Referring Unavailable Schwiger, Sumanth Attending Unavailable Schwiger, Sumanth Referring Unavailable Kat, Chalon Primary Care Unavailable Kat, Chalon Primary Care Unavailable Reodica, Eulogio Attending Unavailable Kat, Chalon Referring Unavailable Kat, Chalon Primary Care Unavailable Kat, Chalon Attending Unavailable Mony, Albert Attending Unavailable Kat, Chalon Primary Care Unavailable Reodica, Eulogio Attending Unavailable Reodica, Eulogio Referring Unavailable Kat, Chalon Primary Care Unavailable Kat, Chalon Primary Care Unavailable Haroon Vieira Attending Unavailable Kat, Chalon Attending Unavailable Kat, Chalon Referring Unavailable Kat, Chalon Primary Care Unavailable Kat, Chalon Attending Unavailable Kat, Chalon Referring Unavailable Kat, Chalon Primary Care Unavailable Kat, Chalon Attending Unavailable Kat, Chalon Referring Unavailable Kat, Chalon Primary Care Unavailable Kat, Chalon Primary Care Unavailable Galileo, Mirian Attending Unavailable Galileo, Mirian Referring Unavailable Kat, Chalon Referring Unavailable Kat, Chalon Primary Care Unavailable Kat, Chalon Attending Unavailable Kat, Chalon Primary Care Unavailable Duran Miller Attending Unavailable Kat, Chalon Referring Unavailable Kat, Chalon Primary Care Unavailable Ellis Irizarry Attending Unavailable Allergies Allergy Classification Reported Allergen(s) Allergy Type Date of Onset Reaction(s) Facility Penicillins (antibiotic) (6 sources) Penicillins; Translations: [Penicillins] [facility]: (20 sources) Codeine; Translations: [CODEINE] Drug Allergy 03-13-20 05 Rash [facility] (14 sources) Penicillins; Translations: [PENICILLINS] Drug Allergy 03-13-20 05 Anaphylaxis [facility] (20 sources) Sulfamethoxazole / Trimethoprim; Translations: [SULFAMETHOXAZOLE-T RIMETHOPRIM] Drug Allergy 03-13-20 05 Other [facility] Work Phone: (20 sources) traMADol; Translations: [TRAMADOL HCL] Drug Allergy 03-13-20 05 Intolerance, Unknown [facility] (20 sources) Naproxen; Translations: [Naproxen TABS] Drug Allergy 03-20-20 23 Other, [facility] Work Phone: (6 sources) Penicillins; Translations: [Penicillins] Allergy to drug (finding) Anaphylaxis [facility] Work Phone: (20 sources) Penicillins; Translations: [Penicillins] Drug Allergy 03-13-20 05 Anaphylaxis, [facility] (6 sources) Penicillin Drug Allergy ANAPHYLAXIS [facility]. Other (6 sources) Naproxen; Translations: [NAPROXEN] Drug Allergy 03-20-20 23 [facility] (5 sources) Bee Venom Protein (Honey Bee); Translations: [BEE VENOM PROTEIN (HONEY BEE)] Propensity to adverse reactions 08-06-19 24 Anaphylaxis [facility] (8 sources) Penicillins Allergy to substance 09-05-19 25 Anaphylaxis [facility] (1 source) Codeine Drug Allergy 12-03-19 25 [facility] (1 source) Penicillins Drug allergy (disorder) 12-03-19 25 [facility] Repository NEGATED: Highlighted row has been ruled out! (1 source) natural latex rubber; Translations: [LATEX, NATURAL RUBBER] Drug allergy (disorder) [facility] [place] NEGATED: Highlighted row has been ruled out! (1 source) No IV Contrast Allergy.; Translations: [IV Dye, Iodine Containing] Drug allergy (disorder) [facility] [place] Medications Current Medications Medication Drug Class(es) Dates [...] needed. 0 05/28/2023 Discontinued (Med List Cleanup) acetaminophen 325 mg / HYDROcodone bitartrate 5 mg oral tablet (20 sources) Opioid Agonist Start: 11-26-2024 Hydrocodone-Ac etaminophen 5-325 mg tablet Active 1 {tbl} PO TWICE A DAY as needed November 26, 2024 12:00am Start: 01-29-2016 End: 12-04-2023 Hydrocodone-Acetaminophen (V icodin 5-300 Mg Tablet) 1 EACH tablet Discontinued 1 {tbl} PO EVERY 6 HOURS NEEDED as needed for Pain 14 January 29, 2016 12:00am December 04, 2023 7:36am Start: 2015 End: 01-08-2024 Hydrocodone-Acetaminophen 5- 325 mg tablet Discontinued 1 {tbl} PO EVERY 4 HOURS NEEDED as needed for Pain 10 December 04, 2023 January 08, 2024 2:32pm [id number] 200 actuat albuterol 0.09 mg/actuat metered dose [...] 5-15 minutes amLODIPine 5 mg oral tablet (15 sources) Dihydropyridine Calcium Channel Robby Start: 11-27-19 take 2 tablets by mouth once daily Amlodipine 5 mg tablet Active 10 mg PO DAILY November 26, 2024 1:33pm Start: 08-06-2023 End: 11-26-2024 take 1 tablet by mouth once daily Amlodipine 5 mg tablet Discontinued 5 mg PO DAILY December 04, 2023 12:00am November 26, 2024 1:36pm Comment on above: Take 1 tablet by arnol th every afternoon. apixaban 5 mg oral tablet (20 sources) Factor Xa Inhibitor Start: 12-04-2023 take 1 tablet by mouth twice daily Apixaban (Eliquis) 5 mg tablet Active 5 mg PO TWICE A DAY December 04, 2023 12:00am Start: 06-11-2023 End: 10-01-2023 take 1 tablet by mouth twice daily apixaban (ELIQUIS) 5 mg tab(s) Take 5 mg by mouth two times a day. 06/11/2023 10/01/2023 Comment on above: Take 5 mg by mouth t wo times a day. azithromycin 250 mg oral tablet (3 sources) Macrolide Antimicrobial Start: 07-18-19 End: 07-23-19 take 2 tablets by mouth once daily, then take 1 tablet by mouth once daily azithromycin (ZITHROMAX) 250 mg tablet Indications: Acute otitis media, right Take 2 tablets by mouth once daily for 1 day, THEN 1 tablet once daily for 4 days. 6 tablet 07/18/2024 07/23/2024 Active Start: 02-28-2022 Azithromycin 5 00 MG as directed Orally Once a day for 5 day(s) Jan, Active benzonatate 100 mg oral capsule (1 source) Non-narcotic Antitussive Start: 10-09-2023 End: 10-19-2023 take 2 capsules by mouth three times [...] Blood Pressure Monitor/Arm - (3 sources) Start: 04-05-2022 Blood Pressure Monitor/Arm - as directed Apr, Active calcium chloride 0.0014 meq/ml / potassium chloride 0.004 meq/ml / sodium chloride 0.103 meq/ml / sodium lactate 0.028 meq/ml injectable solution (1 source) Start: 05-28-2023 lactated Ringer's infusion carvedilol 25 mg oral tablet (20 sources) alpha-Adrenergic Robby, beta-Adrenergic Robby Start: 07-30-2024 take 1 tablet by mouth once daily Carvedilol 25 mg tablet Active 25 mg PO DAILY July 30, 2024 1:00am Start: 05-05-2024 take 1.5625 mg by mo [facility] once daily Carvedilol 3.125 mg tablet Active 1.5625 mg PO DAILY May 05, 2024 1:00am Start: 12-04-2023 End: 05-05-2024 take 1 tablet by mouth twice daily Carvedilol 6.25 mg tablet Discontinued 6.25 mg PO TWICE A DAY December 04, 2023 12:00am May 05, 2024 3:41pm Start: 06-11-2023 take 1 tablet by arnol twice daily at mealtime carvedilol (COREG) 3.125 [...] th two times a day with meals. cilostazol 50 mg oral tablet (1 source) Phosphodiesterase 3 Inhibitor Start: 11-27-19 take 1 tablet by mouth twice daily Cilostazol 50 mg tablet Active 50 mg PO TWICE A DAY November 26, 2024 12:00am dicyclomine hydrochloride 20 mg oral tablet (19 sources) Anticholinergic Start: 10-24-19 take 1 tablet by mouth three times daily as needed for pain Dicyclomine 20 mg tablet Active 20 mg PO THREE TIMES A DAY as needed for abdominal pain October 23, 2024 5:13pm Start: 03-24-2024 End: 06-07-2024 take 1 tablet by mouth three times daily Dicyclomine 20 mg tablet Discontinued 20 mg PO THREE TIMES A DAY March 24, 2024 12:00am June 07, 2024 5:00pm Start: 05-14-2023 dicyclomine (B ENTYL) 20 mg tablet Take 20 mg by mouth. 05/14/2023 Active docusate sodium 100 mg oral capsule (5 sources) Start: 03-12-2017 take 1 capsule by mouth once daily as needed Colace 100 MG 1 capsule as needed Orally Daily prn for 30 day(s) Mar, Active [id number] 0.3 ml EPINEPHrine 1 mg/ml auto-injector (20 sources) alpha-Adrenergic Agonist, beta-Adrenergic Agonist, Catecholamine Start: 08-08-2019 EPINEPHrine (EPIPEN) 0.3 mg/0.3 mL auto-injector EPINEPHrine 0.3 mg/0.3 mL injection syringe Use as directed for bee sting 0 08/08/2019 Active 08/08/2019 Active Comment on above: Use as directed for bee sting famotidine 20 mg oral tablet (20 sources) Histamine-2 Receptor Antagonist Start: 11-26-2024 take 1 tablet by mouth once daily Famotidine 20 mg tablet Active 20 mg PO daily November 26, 2024 12:00am Start: 12-04-2023 End: 07-30-2024 take 1 tablet by mouth at bedtime Famotidine 40 mg tablet Discontinued 40 mg PO AT BEDTIME December 04, 2023 12:00am July 30, 2024 10:17pm Start: 05-28-2023 End: 05-28-2023 famotidine PF (Pepcid) injec tion 20 mg Start: 03-14-2023 End: 04-19-2023 take [...] 40 mg by mouth daily at bedtime. Flovent Diskus 50 MCG/BLIST (1 source) take 1 puff(s) by inhalation twice daily Flovent Diskus 50 MCG/BLIST 1 puff Inhalation Twice a day Active 60 actuat formoterol fumarate 0.005 mg/actuat / mometasone furoate 0.2 mg/actuat metered dose inhaler (20 sources) Corticosteroid, beta2-Adrenergic Agonist Start: 06-11-20 take 2 puff(s) by inhalation twice daily mometasone-formot all (DULERA) 200-5 mcg/actuation inhaler Inhale 2 Puffs [...] milk Orally every 6 hours prn Active ipratropium bromide 0.042 mg/actuat metered dose nasal spray (1 source) Anticholinergic Start: 11-26-2024 Ipratropium [place]leton 42 mcg (0.06 %) spray,non-aerosol Active 2 NMA INTRANASAL THREE TIMES A DAY as needed November 26, 2024 12:00am ketorolac tromethamine 10 mg oral tablet (7 [...] 05-14-2023 ketorolac (Toradol) injectio n 15 mg methocarbamol 500 mg oral tablet (2 sources) Muscle Relaxant Start: 11-04-2024 take 1 tablet by mouth three times daily as needed for pain Methocarbamol 500 mg tablet Active 500 mg PO THREE TIMES A DAY as needed for pain/spasms 60 November 04, 2024 12:00am Metoprolol (1 source) beta-Adrenergic Robby take 1 tablet by mouth once daily metoprolol tartrate 10 mg/mL oral solution ; 1 tab(s) orally once a day Quantity: 0 Refills: 0 Ordered: 08-Mar-2023 Joseline Uriostegui Generic Substitution Allowed ondansetron 4 mg disintegrating oral tablet (20 sources) Serotonin-3 Receptor Antagonist Start: 09-25-2024 take 1 tablet by mouth every eight hours as needed for nausea Ondansetron 4 mg tablet,disintegrati ng Active 4 mg PO EVERY 8 HOURS NEEDED as needed for Nausea October 23, 2024 12:00am Start: 07-30-2024 End: 09-25-2024 take 1 tablet by mouth three times daily as needed for nausea and vomiting Ondansetron 8 mg tablet,disintegrating Discontinued 8 mg PO 3 TIMES DAILY NEEDED as needed for nausea and vomiting July 30, 2024 1:00am September 25, 2024 12:43am Start: 05-28-2023 End: 05-28-2023 ondansetron (Zofran) injecti on 4 mg Start: 09-19-2019 take 1 tablet by arnol th every eight hours for nausea ondansetron (Zofran) 4 mg tablet Indications: Adnexal mass Take 1 tablet (4 mg) by mouth every 8 hours if needed for nausea or vomiting. 10 tablet 0 05/28/2023 Active Start: 09-08-2015 End: 07-30-2024 take 1 tablet by mouth every eight hours Ondansetron 4 mg tablet,disintegrating Discontinued 4 mg PO Q8H April 21, 2024 8:40am June 07, 2024 6:22pm Comment on above: Take 1 tablet by arnol th every 8 hours as needed. pantoprazole 40 mg delayed release oral tablet (20 sources) Proton Pump Inhibitor Start: take 1 tablet by mouth twice daily Pantoprazole 40 mg tablet,delayed release (DR/EC) Active 40 mg PO TWICE A DAY November 13, 2024 12:00am Start: 12-04-2023 End: 11-26-2024 take 1 tablet by mouth once daily Pantoprazole 40 mg tablet,delayed release (DR/EC) Discontinued 40 mg PO DAILY December 04, 2023 12:00am November 26, 2024 1:34pm Start: 05-14-2023 pantoprazole ( ProtoNix) injection 40 mg Start: 03-14-2023 End: 04-17-2023 [...] by mouth once daily. polyethylene glycol 3350 78368 mg powder for oral solution (2 sources) Osmotic Laxative Start: End: polyethylene glycol (Glycolax, Miralax) 17 gram/dose powder Indications: Adnexal mass Take 17 g by mouth once daily. 510 g 0 05/28/2023 06/27/2023 Active polyethylene glycol 3350 [id number] mg / potassium chloride 1480 mg / sodium bicarbonate 5720 mg / sodium chloride 00427 mg powder for oral solution (16 sources) Osmotic Laxative Start: polyethylene glycol-electrolytes (Nulytely) solution 4,000 mL potassium chloride 10 meq extended release oral capsule (9 sources) Start: take 1 capsule by mouth once daily Potassium Chloride 10 mEq capsule, extended release Active 10 meq PO daily November 26, 2024 12:00am Start: 03-06-2024 End: 07-30-2024 take 1 capsule by mouth once daily Potassium Chloride 10 mEq capsule, extended release Discontinued 10 meq PO daily March 06, 2024 12:00am July 30, 2024 10:18pm predniSONE 10 mg oral tablet (20 sources) Start: 10-22-2023 End: 10-28-2023 predniSONE (DELTASONE) [...] 2 days 31 tablet 0 10/07/2020 Suspended Start: 12-04-2014 predniSONE (DE LTASONE) 10 mg tablet Take by mouth. 12/04/2014 Active Comment on above: 4 tabs for 4 days, 3 tabs for 3 days, 2 tabs for 2 days, 1 tab for 2 days sertraline 50 mg oral tablet (6 sources) Serotonin Reuptake Inhibitor take 1 tablet by mouth every twenty-four hours Zoloft 50 mg 1 tablet Orally Once a day for 30 day(s) Active traMADol hydrochloride 50 mg oral tablet (16 sources) Opioid Agonist Start: 07-30-2024 take 1 tablet by mouth every six hours as needed for pain Tramadol 50 mg tablet Active 50 mg PO EVERY 6 HOURS NEEDED as needed for Pain 12 July 30, 2024 10:03pm Start: 01-03-2024 End: 01-22-2024 take 1 tablet by mouth every six hours as needed for pain Tramadol 50 mg tablet Discontinued 50 mg PO EVERY 6 HOURS as needed for pain 12 January 03, 2024 12:00am January 22, 2024 8:22pm Work note (1 source) Start: 03-14-2023 Work [...] / oxyCODONE hydrochloride 5 mg oral tablet (20 sources) Opioid Agonist Start: 06-19-2024 End: 06-27-2024 Oxycodone-Acetamino phen 5-325 mg tablet Discontinued 1 {tbl} PO EVERY 8 HOURS NEEDED as needed for Pain 04 03June 19, 2024 June 27, 2024 10:13pm Start: 06-09-2024 End: 06-18-2024 Oxycodone-Acetaminophen (Per cocet) 5-325 mg tablet Discontinued 1 {tbl} PO Q8H as needed for pain 04 03June 09, 2024 June 18, 2024 11:35am Start: 04-06-2020 take 1 tablet by arnol th every six hours as needed for pain oxyCODONE-Acetaminophen 5-325 MG Oral Tablet TAKE ONE TABLET BY MOUTH EVERY 6 HOURS NEEDED FOR PAIN Quantity: 120 Refills: 0 Ordered: 09-Apr-2020 DO Start : 06-Apr-2020 Active Albuterol Sulfate (Proair Hf a) 1 PUFF inhaler (8 sources) Start: 05-09-2013 End: 07-30-2024 Albuterol Sulfate (Proair Hf a) 1 PUFF inhaler Discontinued 1 - 2 NMA INHALATION EVERY 4 HOURS NEEDED as needed for Asthma May 09, 2013 1:00am July 30, 2024 10:17pm Start: 05-09-2013 End: 07-30-2024 Albuterol Sulfate (Proair Hf a) 1 PUFF inhaler Discontinued 1 - 2 NMA INHALATION EVERY 4 HOURS NEEDED as needed for Asthma May 09, 2013 12:00am July 30, 2024 9:17pm aluminum hydroxide 40 mg/ml / magnesium hydroxide [...] 0 04/05/2022 08/06/2023 Discontinued (Med List Cleanup) ciprofloxacin 500 mg oral tablet (20 sources) Quinolone Antimicrobial Start: 06-28-2024 End: 07-30-2024 take 1 tablet by mouth twice daily Ciprofloxacin Hcl 500 mg tablet Discontinued 500 mg PO TWICE A DAY June 28, 2024 1:00am July 30, 2024 10:17pm Start: 06-09-2024 End: 06-18-2024 take 1 tablet by mouth twice daily Ciprofloxacin Hcl 500 mg tablet Discontinued 500 mg PO TWICE A DAY June 09, 2024 1:00am June 18, 2024 11:34am Start: 01-29-2016 End: 12-04-2023 take 1 tablet by mouth twice daily Ciprofloxacin Hcl 500 MG tablet Discontinued 500 mg PO TWICE A DAY January 29, 2016 12:00am December 04, 2023 7:36am Comment on above: Avoid prolonged or e xcessive exposure to direct and/or artificial sunlight while taking this medication.Check with your doctor before becoming .Do not take dairy products, antacids, or iron preparations within one hour of this medication.Finish all this medication unless otherwise directed by prescriber.Medication should be taken with plenty of water. cyclobenzaprine hydrochloride 5 mg oral tablet (20 sources) Muscle Relaxant Start: 2023 End: 2023 take 1 tablet by mouth three times daily as needed Cyclobenzaprine 5 mg tablet Discontinued 5 mg PO THREE TIMES A DAY as needed March 06, 2024 12:00am March 24, 2024 9:51am Start: 12-04-2023 End: 01-22-2024 take 1 tablet by mouth three times daily as needed for muscle spasms Cyclobenzaprine 10 mg tablet Discontinued 10 mg PO THREE TIMES A DAY as needed for Muscle Spasm January 03, 2024 12:00am January 22, 2024 8:21pm 24 hr dilTIAZem hydrochloride 180 mg extended release oral capsule (8 sources) Calcium Channel Robby Start: 12-09-2020 take 1 capsule by mouth once daily dilTIAZem HCl ER 180 MG Oral Capsule Extended Release 24 Hour TAKE 1 CAPSULE ONCE DAILY. Quantity: 90 Refills: 3 Ordered: 09-Dec-2020 Catracho Gomez MD Start : 09-Dec-2020 Active Start: 11-25-2020 take 1 tablet by arnol once daily dilTIAZem HCl ER Coated Beads 180 MG Oral Tablet Extended Release 24 Hour TAKE 1 TABLET DAILY DIRECTED. Quantity: 90 Refills: 3 Ordered: 25-Nov-2020 Catracho Gomez MD Start : 25-Nov-2020 Active doxycycline monohydrate 100 mg oral capsule (8 sources) Tetracycline-class Drug Start: 05-09-2013 End: 06-10-2013 take 1 capsule by mouth twice daily Doxycycline Hyclate 100 MG capsule Discontinued 100 mg PO TWICE A DAY May 09, 2013 1:00am June 10, 2013 5:48pm esomeprazole 40 mg delayed release oral capsule (8 sources) Proton Pump Inhibitor Start: 07-30-2024 End: 09-24-2024 take 1 capsule by mouth once daily Esomeprazole Magnesium 40 mg capsule,delayed release(DR/EC) Discontinued 40 mg PO DAILY July 30, 2024 1:00am September 24, 2024 10:44pm fluticasone propionate 0.05 mg/actuat metered dose nasal spray (20 sources) Corticosteroid Start: 12-04-2023 End: 07-30-2024 Fluticasone Propionate 50 mcg/actuation spray,suspension Discontinued 2 NMA INTRANASAL DAILY December 04, 2023 12:00am July 30, 2024 10:17pm Start: 10-09-2023 take 2 spray(s) by m outh once daily fluticasone (FLONASE) 50 mcg/actuation nasal spray Indications: URI, acute Use 2 Sprays in each nostril once daily. Rinse mouth after use. 1 Each 10/09/2023 Active Start: 11-03-2020 End: 08-06-2023 take [...] Ordered: 03-Nov-2020 DO Start : 03-Nov-2020 Active Start: 08-15-2015 End: 05-05-2024 Fluticasone Propionate (Flov ent Diskus 100 Mcg) 1 PUFF inhaler Discontinued 1 NMA INHALATION TWICE A DAY August 15, 2015 1:00am May 05, 2024 3:42pm Start: 08-15-2015 End: 05-05-2024 Fluticasone Propionate (Flov ent Diskus 100 Mcg) 1 PUFF inhaler Discontinued 1 NMA INHALATION TWICE A DAY August 15, 2015 12:00am May 05, 2024 2:42pm take 1 puff(s) by in halation twice daily Flovent Diskus 50 MCG/BLIST 1 puff Inhalation Twice a day Active take 1 spray(s) nasa l route once daily Fluticasone Propionate 50 MCG/ACT 1 spray in each nostril Nasally Once a day Active Comment on above: Use 2 Sprays in each nostril once daily. Rinse mouth after use. gabapentin 300 mg oral capsule (14 sources) Anti-epileptic Agent Start: 2 End: 4 take 300-600 mg by mouth at bedtime Gabapentin 300 MG Oral Capsule 300 to 600 mg at bedtime Quantity: 60 Refills: 5 Ordered: 17-Oct-2021 Joshua Frazier MD Start : 17-Oct-2021 Active gentamicin (Garamycin) 270 mg in dextrose 5 % in water (D5W) 100 mL IV (1 source) Start: 3 End: 3 gentamicin (Garamycin) 270 mg in dextrose 5 % in water (D5W) 100 mL IV 1 ml hydrALAZINE hydrochloride 20 mg/ml injection (2 sources) Arteriolar Vasodilator Start: 3 End: 3 hydrALAZINE (Apresoline) injection 2.6 mg Start: 05-28-2023 End: 05-28-2023 hydrALAZINE (Apresoline) inj ection 2.6 mg hydrOXYzine hydrochloride 25 mg oral tablet (10 sources) Antihistamine Start: 08-23-2022 End: 08-06-2023 hydrOXYzine HCL (Atarax) 25 mg tablet Take 1 tablet (25 mg) by mouth as needed at bedtime. for 90 day(s) 0 08/23/2022 08/06/2023 Discontinued (Med List Cleanup) lansoprazole 30 mg delayed release oral capsule (8 sources) Proton Pump Inhibitor Start: 03-06-2024 End: 03-24-2024 take 1 capsule by mouth once daily Lansoprazole (Prevacid) 30 mg capsule,delayed release(DR/EC) Discontinued 30 mg PO daily March 06, 2024 12:00am March 24, 2024 9:51am lisinopril 20 mg oral tablet (13 sources) Angiotensin Converting Enzyme Inhibitor End: 08-06-2023 take 1 tablet by mouth once daily lisinopril 20 mg tablet Take 1 tablet (20 mg) by mouth once daily. 0 08/06/2023 Discontinued (Med List Cleanup) Lisinopril 20 MG Oral Tablet Quantity: 0 Refills: 0 Ordered: 28-Oct-2021 DO Active loratadine 10 mg oral tablet (20 sources) Start: 08-11-2024 End: 09-24-2024 take 1 tablet by mouth once daily Loratadine (Allerclear) 10 mg tablet Discontinued 10 mg PO DAILY August 11, 2024 1:00am September 24, 2024 10:45pm Start: 04-14-2016 take 1 tablet by arnol th once daily loratadine (CLARITIN) 10 mg tablet Take 1 tablet by mouth once daily. 30 tablet 5 04/14/2016 Suspended Comment on above: Take 1 tablet by arnol th once daily. LORazepam 1 mg oral tablet (16 sources) Benzodiazepine End: take 1 tablet by mouth every twenty-four [...] 06/19/2019 Active Comment on above: [employer] nitrofurantoin, macrocrystals 25 mg / nitrofurantoin, monohydrate 75 mg oral capsule (8 sources) Nitrofuran Antibacterial Start: End: take 1 capsule by mouth twice daily at mealtime Nitrofurantoin Monohyd/M-Cryst (Macrobid) 100 mg capsule Discontinued 100 mg PO TWICE A DAY June 19, 2024 1:00am June 27, 2024 10:13pm must administer with a meal/food oxyCODONE hydrochloride 5 mg oral tablet (20 sources) Opioid Agonist Start: End: take 1 tablet by mouth every six hours as needed for pain Oxycodone 5 mg tablet Discontinued 5 mg PO EVERY 6 HOURS as needed for pain 12 3 June 28, 2024 September 24, 2024 10:45pm Start: 05-28-2023 End: 05-29-2023 take 1 tablet by mouth every six [...] Cleanup) Start: 03-14-2023 take 1 capsule by mo [facility] every eight hours oxyCODONE 5 mg oral capsule ; 1 cap orally every 8 hours as needed for painDx:N20.0 Quantity: 15 Refills: 0 Ordered: 14-Mar-2023 Konrad Delgado Start: 14-Mar-2023 Generic Substitution Allowed Comments: Caution federal law prohibits the transfer of this drug to any person other than the person for whom it was prescribed.It is very important that you take or use this exactly as directed. Do not skip doses or discontinue unless directed by your doctor.May cause drowsiness or dizziness.This prescription cannot be refilled.Using more of this medication than prescribed may cause serious breathing problems. Start: 03-14-2014 End: 03-14-2014 take 2 tablets by mouth every four hours as needed for pain Oxycodone 5 MG tablet Discontinued 10 mg PO EVERY 4 HOURS NEEDED as needed for Moderate Pain (pain scale 4-5) March 14, 2014 12:00am March 14, 2014 3:33pm Comment on above: Caution federal law prohibits [...] than prescribed may cause serious breathing problems. phenazopyridine hydrochloride 200 mg oral tablet (16 sources) Start: End: take 1 tablet by mouth three times daily as needed for muscle spasms Phenazopyridine (Pyridium) 200 mg tablet Discontinued 200 mg PO 3 TIMES DAILY NEEDED as needed for Bladder Spasms 28 01June 19, 2024 1:00am June 27, 2024 10:14pm rOPINIRole 0.25 mg oral tablet (9 sources) Nonergot Dopamine Agonist Start: End: take 1 tablet by mouth at bedtime as needed Ropinirole 0.25 mg tablet Discontinued 0.25 mg PO AT BEDTIME NEEDED as needed for restless legs December 04, 2023 12:00am July 30, 2024 10:18pm 1000 ml sodium chloride 9 mg/ml injection (1 source) Start: End: sodium chloride 0.9 % bolus 1,000 mL sucralfate 1000 mg oral tablet (20 sources) Aluminum Complex Start: End: take 1 tablet by mouth three times daily Sucralfate (Carafate) 1 gram tablet Discontinued 1 g PO THREE TIMES A DAY May 16, 2024 1:58pm June 12, 2024 1:00am June 07, 2024 5:01pm Start: 05-14-2023 sucralfate (Ca rafate) suspension 1 g Start: 05-14-2023 End: 05-13-2024 take 1 tablet by mouth four times daily before mealtime sucralfate (Carafate) 1 gram tablet Indications: Kidney stone , Abdominal pain, unspecified abdominal location Take 1 tablet (1 g) by mouth 4 times a day before meals. 120 tablet 0 05/14/2023 05/13/2024 Active tamsulosin hydrochloride 0.4 mg oral capsule (20 sources) alpha-Adrenergic Robby Start: 07-25-2019 End: 08-06-2023 take 1 capsule by mouth once daily tamsulosin (Flomax) 0.4 mg 24 hr capsule Take 1 capsule (0.4 mg) by mouth once daily. 0 07/25/2019 08/06/2023 Discontinued (Med List Cleanup) Comment on above: Take 1 capsule by [facility] once daily. 30 minutes after the same meal each day. traZODone hydrochloride 50 mg oral tablet (12 sources) Serotonin Reuptake Inhibitor End: 08-06-2023 traZODone (Desyrel) 50 mg tablet 1 tablet (50 mg). 0 08/06/2023 Discontinued (Med List Cleanup) traZODone HCl - 50 MG Oral Tablet Quantity: 0 Refills: 0 Ordered: 28-Oct-2021 DO Active Problems Active Problems Problem Classification Problem Date Documented Da te Episodic/Chronic Abdominal pain (20 sources) Epigastric pain; Translations: [Epigastric pain] Onset: 03-27-2012 Resolved: 10-14-2013 03-27-2012 Episodic Acute bronchitis (1 source) Acute bronchitis; Translations: [...] [Cardiac dysrhythmia, unspecified] Onset: 04-02-2023 04-02-2023 Chronic Cardiac dysrhythmias (20 sources) Palpitations; Translations: [Palpitations] Onset: 03-17-2015 03-17-2015 Episodic Chronic obstructive pulmonary disease and bronchiectasis (1 [...] 07-04-2015 Chronic Disorders of teeth and jaw (9 sources) Toothache; Translations: [Toothache] 12-29-2016 Episodic E Codes: [...] Translations: [Unspecified essential hypertension] Onset: 03-14-2023 Chronic Comment on above: CONTROLLED ON MED Fluid and electrolyte disorders (3 sources) Hypokalemia; Translations: [Acute hypokalemia] Onset: 03-14-2023 10-31-2024 Episodic Gastritis and duodenitis (20 sources) Acute gastritis; Translations: [Acute gastritis without bleeding] Onset: 04-03-2012 04-03-2012 Episodic Gastroduodenal ulcer (except hemorrhage) (1 source) Peptic ulcer, site unspecified, unspecified as acute or chronic, without hemorrhage or perforation; Translations: [Peptic ulc, site unsp, unsp as ac or chr, w/o hemor or perf] Onset: 03-14-2023 Chronic Genitourinary symptoms and ill-defined conditions (3 sources) Urinary incontinence; Translations: [Unspecified urinary incontinence] Onset: 05-22-2023 05-22-2023 Chronic Headache; including migraine (1 source) Headache; Translations: [Headache] 07-27-2015 Episodic Immunizations and screening for infectious disease (5 sources) Encounter for immunization; Translations: [Other specified vaccinations against streptococcus pneumoniae [pneumococcus]] Onset: 03-15-2022 Episodic Inflammatory diseases of female pelvic organs (20 sources) Acute pelvic inflammatory disease; Translations: [Acute parametritis and pelvic cellulitis] Onset: 03-17-2015 03-17-2015 Episodic Joint disorders and dislocations; trauma-related (6 sources) Dislocation of shoulder joint; Translations: [Unspecified dislocation of unspecified shoulder joint, initial encounter] Episodic Menstrual disorders (17 sources) Menometrorrhagia; Translations: [Excessive and frequent menstruation with irregular cycle] Onset: 04-02-2023 04-02-2023 Chronic Nausea and vomiting (20 sources) Nausea and vomiting; Translations: [Nausea & Vomiting] Onset: 05-28-2024 11-25-2016 Episodic Open wounds of extremities (9 [...] than malignant neoplasm] Onset: 06-07-2023 Episodic Other aftercare (8 sources) Long-term current use of anticoagulant; Translations: [care home (current) use of anticoagulants] 08-19-2024 Episodic Other circulatory disease (5 sources) H/O: hypertension; Translations: [Personal history of other diseases of circulatory system] Onset: 08-15-2023 08-15-2023 Episodic Other circulatory disease (1 source) Postural orthostatic tachycardia syndrome ; Translations: [Postural Orthostatic Tachycardia Syndrome] 02-26-2017 Episodic Other circulatory disease (6 sources) Elevated blood pressure; Translations: [Elevated blood-pressure reading, without diagnosis of hypertension] 09-25-2024 Episodic Other connective tissue disease (1 source) Fibromyalgia; Translations: [Fibromyalgia] Onset: 03-14-2023 Episodic Other connective tissue disease (2 sources) Myalgia, other site; Translations: [Myalgia, other site] Onset: 04-03-2023 Episodic Other diseases of bladder and urethra (2 sources) Overactive bladder; Translations: [Overactive bladder] Onset: 07-09-2023 Chronic Other eye disorders (8 sources) Subconjunctival hemorrhage; Translations: [Conjunctival hemorrhage, unspecified eye] 08-19-2024 Episodic Other female genital disorders (17 sources) Abnormal uterine bleeding; Translations: [Abnormal uterine and vaginal bleeding, unspecified] Onset: 04-02-2023 04-02-2023 Chronic Other female genital disorders (2 sources) Other specified conditions associated with female genital organs and menstrual cycle; Translations: [Other specified conditions associated with female genital organs and menstrual cycle] Onset: 05-14-2023 Episodic Other gastrointestinal disorders (2 sources) Irritable bowel syndrome; Translations: [Irritable bowel syndrome without diarrhea] 11-13-2024 Chronic Other gastrointestinal disorders (3 sources) Esophageal dysphagia; Translations: [Other dysphagia] 04-05-2023 Episodic Other gastrointestinal disorders (16 sources) Diarrhea; Translations: [Diarrhea, unspecified] Onset: 08-18-2023 08-18-2023 Episodic Other gastrointestinal disorders (2 sources) Finding of abdomen; Translations: [Other specified symptoms and signs involving the digestive system and abdomen] 11-13-2024 Episodic Other injuries and conditions due to [...] injuries and conditions due to external causes (4 sources) Hematoma; Translations: [Other injury of unspecified body region, initial encounter] 10-01-2024 Episodic Other injuries and conditions due to external causes (1 source) Unspecified injury of left lower leg, initial encounter; Translations: [Unspecified injury of left lower leg, initial encounter] Onset: 10-07-2024 Episodic Other lower respiratory disease (1 source) Chronic pulmonary edema; Translations: [Chronic pulmonary edema] Onset: 03-14-2023 Chronic Other lower respiratory disease (3 sources) History of chronic obstructive airway disease; Translations: [Personal history of other diseases of respiratory system] Episodic Other lower respiratory disease (1 source) Personal history of pneumonia (recurrent); Translations: [Personal history of pneumonia (recurrent)] Onset: 03-15-2022 Episodic Other lower respiratory disease (20 sources) Dyspnea; Translations: [Dyspnea, unspecified] Onset: 03-17-2015 06-06-2023 Episodic Other nervous system disorders (1 source) Lesion of ulnar nerve, left upper limb; Translations: [Lesion of ulnar nerve] Chronic Other nervous system disorders (8 sources) Postoperative pain ; Translations: [Other acute postprocedural pain] 05-17-2024 Episodic Other nutritional; endocrine; and metabolic disorders (8 sources) Hypomagnesemia; Translations: [Hypomagnesemia] 01-29-2016 Chronic Other nutritional; endocrine; and metabolic disorders (6 sources) Body mass index 30+ - obesity 09-25-2024 Chronic Other skin disorders (8 sources) Facial swelling ; Translations: [Localized swelling, mass and lump, head] 08-19-2024 Episodic Other skin disorders (8 sources) Decorative tattoo; Translations: [Other specified disorders of pigmentation] 01-29-2016 Episodic Other skin disorders (1 source) Localized swelling, mass and lump, unspecified lower limb; Translations: [Localized swelling, mass and lump, unspecified lower limb] Onset: 10-23-2024 Episodic Other upper respiratory disease (14 sources) Chronic rhinitis; Translations: [Chronic rhinitis] Onset: 04-02-2023 04-02-2023 Chronic Other upper respiratory disease (1 source) Nasal congestion; Translations: [Nasal Congestion] 05-04-2015 Episodic Other upper respiratory infections (2 sources) Acute upper respiratory infection; Translations: [Acute upper respiratory infection, unspecified] 10-09-2023 Episodic Otitis media and related conditions (15 sources) Dysfunction of eustachian tube; Translations: [Dysfunction of Eustachian tube] Onset: 04-02-2023 04-02-2023 Episodic Peripheral and visceral atherosclerosis (1 source) Peripheral vascular disease, unspecified; Translations: [Peripheral vascular disease, unspecified] Onset: 09-30-2024 Chronic Pleurisy; pneumothorax; pulmonary collapse (13 sources) Pleural effusion, not elsewhere classified; Translations: [Bilateral pleural effusion] Onset: 03-17-2015 Resolved: 07-24-2019 07-24-2019 Episodic Pneumonia (except that caused by tuberculosis or sexually transmitted disease) (18 sources) Pneumonia; Translations: [Pneumonia, unspecified organism] Onset: 03-17-2015 Resolved: 07-24-2019 07-24-2019 Episodic Residual codes; unclassified (1 source) Treatment [...] 03-08-2023 Unclassified (1 source) Adnexal mass 03-10-2023 Unclassified (4 sources) M54.16 - Radiculopathy, lumbar region Unclassified (1 source) Low back pain, unspecified; Translations: [Low back pain, unspecified] Onset: 11-04-2024 Urinary tract infections (20 sources) Acute urinary tract infection; Translations: [Type 2 fracture of sacrum] Onset: 03-14-2023 07-04-2015 Episodic Comment on above: PYELONEPHRITIS Viral infection (8 sources) Acute viral disease; Translations: [Viral infection, unspecified] 08-19-2024 Episodic Past or Other Problems Problem Classification Problem Date Documented Da te Episodic/Chronic Calculus of urinary tract (20 sources) Kidney stone; Translations: [Calculus of kidney] Onset: 07-24-2019 08-06-2019 Episodic Fever of unknown origin (1 source) Fever, unspecified; Translations: [Fever, unspecified] Onset: 02-09-2024 Episodic Genitourinary symptoms and ill-defined conditions (2 sources) Frequency of micturition; Translations: [Hematuria, unspecified] Onset: 03-14-2023 Episodic Malaise and fatigue (20 sources) Fatigue; Translations: [Other fatigue] Onset: 03-17-2015 03-17-2015 Episodic Mood disorders (20 sources) Depressive disorder; Translations: [Major depressive disorder, single episode, unspecified] Onset: 03-27-2006 Resolved: 04-16-2008 04-02-2023 Chronic Nonspecific chest pain (20 sources) Chest pain; Translations: [Chest pain, unspecified] Onset: 04-02-2023 Resolved: 07-03-2023 05-04-2015 Episodic Other aftercare (2 sources) Other senior care (current) drug therapy; Translations: [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] Onset: 08-02-2021 Episodic Other connective tissue disease (20 sources) Myofascial pain; Translations: [Myalgia, other site] Onset: 06-14-2011 06-14-2011 Episodic Other connective tissue disease (16 sources) Fibromyalgia; Translations: [Myalgia and myositis, unspecified] Onset: 04-02-2023 04-02-2023 Episodic Other diseases of kidney and ureters (14 sources) Hydronephrosis with renal and ureteral calculous obstruction; Translations: [Hydronephrosis with urinary obstruction due to renal calculus] Onset: 07-01-2024 06-07-2024 Episodic Other ear and sense organ disorders [...] dysphagia] Onset: 04-03-2023 Episodic Other gastrointestinal disorders (1 source) Abdominal distension (gaseous); Translations: [Abdominal distension (gaseous)] Onset: 07-17-2024 Episodic Other gastrointestinal disorders (1 source) Other specified symptoms and signs involving the digestive system and abdomen; Translations: [Other specified symptoms and signs involving the digestive system and abdomen] Onset: 04-07-2024 Episodic Other gastrointestinal disorders (1 source) Diarrhea, unspecified; Translations: [Diarrhea, unspecified] Onset: 04-07-2024 Episodic Other injuries and conditions due to external causes (2 sources) Unspecified injury of left forearm, initial encounter; Translations: [Unspecified injury of left forearm, initial encounter] Onset: 04-10-2022 Episodic Other injuries and conditions due to external causes (8 sources) Foreign body in lung; Translations: [Unspecified foreign body in other parts of respiratory tract causing other injury, initial encounter] Onset: 08-15-2023 08-15-2023 Episodic Other injuries and conditions due to external causes (1 source) Unspecified injury of right wrist, hand and finger(s), initial encounter; Translations: [Injury of finger of right hand, initial encounter] Onset: 09-22-2023 Episodic Other lower respiratory disease (20 sources) Dyspnea on exertion; Translations: [Other respiratory abnormalities] Onset: 04-02-2023 04-02-2023 Episodic Other lower respiratory disease (20 sources) Cough; Translations: [Cough] Onset: 06-19-2019 06-19-2019 Episodic Other nervous system disorders (1 source) [...] screening for other disorder] Onset: 03-20-2023 Episodic Other upper respiratory disease (1 source) Other diseases of bronchus, not elsewhere classified; Translations: [Bronchiolar disease] Onset: 08-16-2023 Episodic Ovarian cyst (11 sources) Unspecified ovarian cyst, right side; Translations: [Cyst of ovary] Onset: 03-14-2023 05-07-2024 Episodic Pulmonary heart disease (20 sources) H/O: pulmonary embolus; Translations: [Personal history of pulmonary embolism] Onset: 06-01-2023 06-06-2023 Episodic Residual codes; unclassified (12 sources) Generalized aches and pains; Translations: [Generalized Aches & Pains] Onset: 04-02-2023 04-16-2015 Episodic Residual codes; unclassified (8 sources) Postoperative state; Translations: [Other specified postprocedural states] Onset: 06-07-2023 06-07-2023 Episodic Residual codes; unclassified (1 source) Edema, unspecified; Translations: [Edema, unspecified] Onset: 08-25-2024 Episodic Respiratory failure; insufficiency; arrest (adult) (13 sources) Acute respiratory failure; Translations: [Acute respiratory [...] Test Name Value Interpretation Reference Range Facility Cardiology Visit Reporton Cardiology Visit Report Normal [facility] Emergency Department Summary on 11-30-2024 Emergency Department Summary Normal [facility] Wrist min 3 Viewson 12-01-19 25 Wrist min 3 Views Normal [facility] Gastroenterology Visit Repor ton 11-13-2024 Gastroenterology Visit Report Normal [facility] L/S Spine Bending Flex/[place] 11-04-2024 L/S Spine Bending Flex/Ext Normal [facility] Orthopedic Visit Reporton Orthopedic Visit Report Normal [facility] Abdomen/Pelvis W IV Cont ONL Yon 10-23-2024 Abdomen/Pelvis W IV Cont ONLY Normal [facility] Absolute lymphocyte countOrd ered By: Neeta Gonzales on 10-23-2024 Lymphocytes Auto (Unsp spec) [#/Vol] 2.10 10*3/uL 0.83-4.51 [facility] Absolute neutrophil countOrd ered By: Neeta Gonzales on 10-23-2024 Neutrophils (Bld) [#/Vol] 5.1 10*3/uL 2.0-7.7 [facility] Anion gap in Serum or Plasma Ordered By: Neeta Gonzales on 10-23-2024 Anion gap [Moles/Vol] 11 mmol/L 5-15 [facility] Automated lymphocyte count a s percentage of total leukocytesOrdered By: Neeta Gonzales on 10-23-2024 Lymphocytes/100 WBC Auto (Unsp spec) 26.3 % 19-41 [facility] BUN/creatinine ratioOrdered By: Neeta Gonzales on 10-23-2024 Urea nitrogen/Creatinine [Mass ratio] 16.6 mg/mg 10-20 [facility] Basophil percentageOrdered B y: Neeta oGnzales on 10-23-2024 Basophils/100 WBC (Bld) 0.1 % 0-1 [facility] Bilirubin Test strip Ql (U)O rdered By: Neeta Gonzales on 10-23-2024 Bilirubin Ql (U) 1 mg/dL High Negative [facility] Comment on above: COLOR OF URINE MAY A FFECT DIPSTICK RESULTS. Bilirubin, totalOrdered By: Neeta Gonzales on 10-23-2024 Bilirubin [Mass/Vol] 0.48 mg/dL 0.00-1.30 [facility] CBC W/Diff, Automatedon 10-01 Absolute Lymph 2.10 X10 3/uL Normal 0.83-4.51 [facility] Comment on above: Performed By: #### L 100.0100, L503.6005, L500.4050, L501.2450 ####[facility] [id number] [place], [address] Absolute Neut 5.1 X10 3/uL Normal 2.0-7.7 [facility] [facility] Comment on above: Performed By: #### L 100.0100, L503.6005, L500.4050, L501.2450 ####[facility] [address] [place], [address] Basophils/100 WBC (Bld) 0.1 % Normal 0-1 [facility] Comment on above: Performed By: #### L 100.0100, L503.6005, L500.4050, L501.2450 ####[facility] [address] [place], [address] Eosinophils/100 WBC (Bld) 2.1 % Normal 0-5 [facility] Comment on above: Performed By: #### L 100.0100, L503.6005, L500.4050, L501.2450 ####[facility] [address] [place], [address] Erythrocyte distribution width (RBC) [Ratio] 12.8 % Normal 11.6-14.6 [facility] Comment on above: Performed By: #### L 100.0100, L503.6005, L500.4050, L501.2450 ####[facility] [address] [place], [address] Hematocrit (Bld) [Volume fraction] 38.2 % Normal 37-47 [facility] Comment on above: Performed By: #### L 100.0100, L503.6005, L500.4050, L501.2450 ####[facility] [address] [place], [address] Hemoglobin (Bld) [Mass/Vol] 13.0 g/dL Normal 12.0-15.0 [facility] Comment on above: Performed By: #### L 100.0100, L503.6005, L500.4050, L501.2450 ####[facility] [address] [place], [address] IG% 0.300 Normal 0.0-0.9 [facility] Comment on above: Result Comment: IG% - Immature Granulocytes (promyelocytes, myelocytes andmetamyelocytes) > 1% indicates that a LEFT SHIFT is Present. Performed By: #### L 100.0100, L503.6005, L500.4050, L501.2450 ####[facility] [address] [place], [address] Lymphocytes/100 WBC (Bld) 26.3 % Normal 19-41 [facility] Comment on above: Performed By: #### L 100.0100, L503.6005, L500.4050, L501.2450 ####[facility] [address] [place], [address] MCH (RBC) [Entitic mass] 30.9 pg Normal 27.0-32.0 [facility] Comment on above: Performed By: #### L 100.0100, L503.6005, L500.4050, L501.2450 ####[facility] [address] [place], [address] MCHC (RBC) [Mass/Vol] 34.0 g/dL Normal 32-36 [facility] Comment on above: Performed By: #### L 100.0100, L503.6005, L500.4050, L501.2450 ####[facility] [address] [place], [address] MCV (RBC) [Entitic vol] 90.7 fL Normal 81-99 [facility] Comment on above: Performed By: #### L 100.0100, L503.6005, L500.4050, L501.2450 ####[facility] [address] [place], [address] Monocytes/100 WBC (Bld) 7.1 % Normal 0-10 [facility] Comment on above: Performed By: #### L 100.0100, L503.6005, L500.4050, L501.2450 ####[facility] [address] [place], [address] Neutrophils/100 WBC (Bld) 64.1 % Normal 47-70 [facility] Comment on above: Performed By: #### L 100.0100, L503.6005, L500.4050, L501.2450 ####[facility] [address] [place], [address] Nucleated RBC (Bld) [#/Vol] 0 10*3/uL Normal 0-5 [facility] Comment on above: Performed By: #### L 100.0100, L503.6005, L500.4050, L501.2450 ####[facility] [address] [place], [address] Platelet mean volume (Bld) [Entitic vol] 9.1 fL Normal 6.2-12.0 [facility] Comment on above: Performed By: #### L 100.0100, L503.6005, L500.4050, L501.2450 ####[facility] [address] [place], [address] Platelets (Bld) [#/Vol] 273 10*3/uL Normal 150-450 [facility] Comment on above: Performed By: #### L 100.0100, L503.6005, L500.4050, L501.2450 ####[facility] [address] [place], [address] RBC (Bld) [#/Vol] 4.21 10*6/uL Normal 4.2-5.4 [facility] Comment on above: Performed By: #### L 100.0100, L503.6005, L500.4050, L501.2450 ####[facility] [address] [place], [address] RDW SD 42.0 fl Normal 35.1-43.9 [facility] Comment on above: Performed By: #### L 100.0100, L503.6005, L500.4050, L501.2450 ####[facility] [address] [place], [address] WBC (Bld) [#/Vol] 8.0 10*3/uL Normal 4.4-11.0 [facility] Comment on above: Performed By: #### L 100.0100, L503.6005, L500.4050, L501.2450 ####[facility] [address] [place], [address] Carbon dioxide, total [Moles /volume] in Central venous bloodOrdered By: Neeta Gonzales on 10-23-2024 CO2 [Moles/Vol] 23.0 mmol/L 21.0-32.0 [facility] Chloride assayOrdered By: Dannie Gonzales on 10-23-2024 Chloride [Moles/Vol] 106 mmol/L 98-108 [facility] Comprehensive Metabolic Prof ilon 10-23-2024 Albumin [Mass/Vol] 4.1 g/dL Normal 3.5-5.0 [facility] Comment on above: Performed By: #### L 100.0100, L503.6005, L500.4050, L501.2450 ####[facility] [address] [place], [address] Albumin/Globulin [Mass ratio] 1.3 {ratio} Normal 0.9-2.4 [facility] Comment on above: Performed By: #### L 100.0100, L503.6005, L500.4050, L501.2450 ####[facility] [address] [place], [address] ALK PHOS 98 U/L Normal 35-104 [facility] Comment on above: Performed By: #### L 100.0100, L503.6005, L500.4050, L501.2450 ####[facility] [address] [place], [address] ALT [Catalytic activity/Vol] 78 U/L High <=34 [facility] Comment on above: Performed By: #### L 100.0100, L503.6005, L500.4050, L501.2450 ####[facility] [address] [place], [address] AST [Catalytic activity/Vol] 67 U/L High <=31 [facility] Comment on above: Performed By: #### L 100.0100, L503.6005, L500.4050, L501.2450 ####[facility] [address] [place], [address] Bilirubin [Mass/Vol] 0.48 mg/dL Normal 0.00-1.30 [facility] Comment on above: Performed By: #### L 100.0100, L503.6005, L500.4050, L501.2450 ####[facility] [address] [place], [address] BUN/CRE 16.6 RATIO Normal 10-20 [facility] Comment on above: Performed By: #### L 100.0100, L503.6005, L500.4050, L501.2450 ####[facility] [address] [place], [address] Calcium [Mass/Vol] 9.0 mg/dL Normal 7.6-11.0 [facility] Comment on above: Performed By: #### L 100.0100, L503.6005, L500.4050, L501.2450 ####[facility] [address] [place], [address] Chloride [Moles/Vol] 106 mmol/L Normal 98-108 [facility] Comment on above: Performed By: #### L 100.0100, L503.6005, L500.4050, L501.2450 ####[facility] [address] [place], [address] CO2 [Moles/Vol] 23.0 mmol/L Normal 21.0-32.0 [facility] Comment on above: Performed By: #### L 100.0100, L503.6005, L500.4050, L501.2450 ####[facility] [address] [place], [address] Creatinine [Mass/Vol] 1.04 mg/dL Normal 0.70-1.20 [facility] Comment on above: Performed By: #### L 100.0100, L503.6005, L500.4050, L501.2450 ####[facility] [address] [place], [address] ECRCL 72.42 ml/min Normal 50-250 [facility] Comment on above: Performed By: #### L 100.0100, L503.6005, L500.4050, L501.2450 ####[facility] [address] [place], [address] GAP 11 Normal 5-15 [facility] Comment on above: Performed By: #### L 100.0100, L503.6005, L500.4050, L501.2450 ####[facility] [address] [place], [address] GFR/1.73 sq M.predicted among non-blacks MDRD (S/P/Bld) [Vol rate/Area] 67 mL/min/{1.73_m2} Normal >60 [facility] Comment on above: Result Comment: mL/m in/1.73m2 CKD-EPI Creatinine Equation (2020) Performed By: #### L 100.0100, L503.6005, L500.4050, L501.2450 ####[facility] [address] [place], [address] Globulin (S) [Mass/Vol] 3.3 g/dL Normal 2.2-4.2 [facility] Comment on above: Performed By: #### L 100.0100, L503.6005, L500.4050, L501.2450 ####[facility] [address] [place], [address] Glucose [Mass/Vol] 96 mg/dL Normal 70-99 [facility] Comment on above: Performed By: #### L 100.0100, L503.6005, L500.4050, L501.2450 ####[facility] [address] [place], [address] Potassium [Moles/Vol] 3.2 mmol/L Low 3.3-5.1 [facility] Comment on above: Performed By: #### L 100.0100, L503.6005, L500.4050, L501.2450 ####[facility] [address] [place], [address] Sodium [Moles/Vol] 139 mmol/L Normal 133-145 [facility] Comment on above: Performed By: #### L 100.0100, L503.6005, L500.4050, L501.2450 ####[facility] [address] [place], [address] T PROT 7.4 g/dL Normal 5.9-8.4 [facility] Comment on above: Performed By: #### L 100.0100, L503.6005, L500.4050, L501.2450 ####[facility] [address] [place], [address] Urea nitrogen [Mass/Vol] 17 mg/dL Normal 4-19 [facility] Comment on above: Performed By: #### L 100.0100, L503.6005, L500.4050, L501.2450 ####[facility] [address] [place], [address] Emergency Department Summary on 10-23-2024 Emergency Department Summary Normal [facility] Eosinophil percentageOrdered By: Neeta Gonzales on 10-23-2024 Eosinophils/100 WBC (Bld) 2.1 % 0-5 [facility] Erythrocyte distribution wid th ratioOrdered By: Neeta Gonzales on 10-23-2024 Erythrocyte distribution width (RBC) [Ratio] 12.8 % 11.6-14.6 [facility] Erythrocyte distribution wid th standard deviationOrdered By: Neeta Gonzales on 10-23-2024 Erythrocyte distribution width (RBC) [Ratio] 42.0 fl 35.1-43.9 [facility] Glomerular filtration rate ( GFR) estimation/1.73 sq m using serum, plasma, or whole bOrdered By: Neeta Gonzales on 10-23-2024 GFR/1.73 sq M.predicted among non-blacks MDRD (S/P/Bld) [Vol rate/Area] 67 mL/min/{1.73_m2} >60 [facility] Comment on above: mL/min/1.73m2 CKD-EP I Creatinine Equation (2020) Hematocrit Auto (Bld) [Volum e fraction]Ordered By: Neeta Gonzales on 10-23-2024 Hematocrit (Bld) [Volume fraction] 38.2 % 37-47 [facility] Hemoglobin measurementOrdere d By: Neeta Gonzales on 10-23-2024 Hemoglobin (Bld) [Mass/Vol] 13.0 g/dL 12.0-15.0 [facility] Immature granulocytes/100 WB C Auto (Bld)Ordered By: Neeta Gonzales on 10-23-2024 Immature granulocytes/100 WBC (Bld) 0.300 % 0.0-0.9 [facility] Comment on above: IG% - Immature Granu locytes (promyelocytes, myelocytes and metamyelocytes) > 1% indicates that a LEFT SHIFT is Present. Ketones Test strip Ql (U)Ord ered By: Neeta Gonzales on 10-23-2024 Ketones Ql (U) Negative Negative [facility] Laboratory - Chemistry and C hemistry - challengeOrdered By: Neeta Gonzales on 10-23-2024 AST [Catalytic activity/Vol] 67 U/L High <32 [facility] Lactic Acidon 10-23-2024 Lactate [Moles/Vol] mmol/L Normal 0.0-2.0 [facility] Comment on above: Order Comment: Y Performed By: #### L 100.0100, L503.6005, L500.4050, L501.2450 ####[facility] [address] [place], [place], [address] Lactic acid measurementOrder ed By: Neeta Gonzales on 10-23-2024 Lactate [Moles/Vol] mmol/L 0.0-2.0 [facility] Lipaseon 10-23-2024 Lipase [Catalytic activity/Vol] 40 U/L Normal 13-75 [facility] Comment on above: Result Comment: Arcadio de la paz note:LIPASE revised reference range effective 22.New Lipase methodology. Expected to produce lower valuesthan the previous assay method.NEW Reference Range: 13 - 75 U/L Performed By: #### L 100.0100, L503.6005, L500.4050, L501.2450 ####[facility] [address] [place], [place], [address] Lipase measurementOrdered By : Neeta Gonzales on 10-23-2024 Lipase [Catalytic activity/Vol] 40 U/L 13-75 [facility] Comment on above: Please note:LIPASE r evised reference range effective 22. New Lipase methodology. Expected to produce lower values than the previous assay method. NEW Reference Range: 13 - 75 U/L MCV (mean corpuscular volume ) determinationOrdered By: Neeta Gonzales on 10-23-2024 MCV (RBC) [Entitic vol] 90.7 fL 81-99 [facility] Mean corpuscular hemoglobin (MCH) determinationOrdered By: Neeta Gonzales on 10-23-2024 MCH (RBC) [Entitic mass] 30.9 pg 27.0-32.0 [facility] Mean corpuscular hemoglobin concentration (MCHC) determinationOrdered By: Neeta Gonzales on 10-23-2024 MCHC (RBC) [Mass/Vol] 34.0 g/dL 32-36 [facility] Mean platelet volume determi nationOrdered By: Neeta Gonzales on 10-23-2024 Platelet mean volume (Bld) [Entitic vol] 9.1 fL 6.2-12.0 [facility] Microscopic analysis of urin e for red blood cells (RBC)Ordered By: Neeta Gonzales on 10-23-2024 Microscopic analysis of urine for red blood cells (RBC) 0 SEEN /hpf 0-5 [facility] Monocyte percentageOrdered B y: Neeta Gonzales on 10-23-2024 Monocytes/100 WBC (Bld) 7.1 % 0-10 [facility] Mucus LM Ql (Urine sed)Order ed By: Neeta Gonzales on 10-23-2024 Mucus Ql (Urine sed) 1+ /hpf [facility] Neutrophil percentageOrdered By: Neeta Gonzales on 10-23-2024 Neutrophils/100 WBC (Bld) 64.1 % 47-70 [facility] Nitrite Test strip Ql (U)Ord ered By: Neeta Gonzales on 10-23-2024 Nitrite Ql (U) Negative Negative [facility] Nucleated red blood cell per centageOrdered By: Neeta Gonzales on 10-23-2024 Nucleated RBC/100 WBC (Bld) [Ratio] 0 % 0-5 [facility] Platelet countOrdered By: Dannie Gonzales on 10-23-2024 Platelets (Bld) [#/Vol] 273 10*3/uL 150-450 [facility] Potassium measurement (mass/ volume)Ordered By: Neeta Gonzales on 10-23-2024 Potassium (Unsp spec) [Mass/Vol] 3.2 mmol/L Low 3.3-5.1 [facility] Protein Test strip Ql (U)Ord ered By: Neeta Gonzales on 10-23-2024 Protein Ql (U) 30 mg/dl High Negative [facility] RBC Auto (Bld) [#/Vol]Ordere d By: Neeta Gonzales on 10-23-2024 RBC (Bld) [#/Vol] 4.21 10*6/uL 4.2-5.4 [facility] Serum creatinine measurement (mass/volume)Ordered By: Neeta Gonzales on 10-23-2024 Creatinine [Mass/Vol] 1.04 mg/dL 0.70-1.20 [facility] Serum globulin measurementOr dered By: Neeta Gonzales on 10-23-2024 Globulin (S) [Mass/Vol] 3.3 g/dL 2.2-4.2 [facility] Serum glucose measurement (m ass/volume)Ordered By: Neeta Gonzales on 10-23-2024 Glucose [Mass/Vol] 96 mg/dL 70-99 [facility] Serum or plasma alanine irwin otransferase (ALT) measurementOrdered By: Neeta Gonzales on 10-23-2024 ALT [Catalytic activity/Vol] 78 U/L High <35 [facility] Serum or plasma albumin marianna urement (mass/volume)Ordered By: Neeta Gonzales on 10-23-2024 Albumin [Mass/Vol] 4.1 g/dL 3.5-5.0 [facility] Serum or plasma albumin/glob ulin mass ratioOrdered By: Neeta Gonzales 10-23-2024 Albumin/Globulin [Mass ratio] 1.3 {ratio} 0.9-2.4 [facility] Serum or plasma alkaline caity sphatase measurementOrdered By: Neeta Gonzales 10-23-2024 ALP [Catalytic activity/Vol] 98 U/L 35-104 [facility] Serum or plasma calcium marianna urement (mass/volume)Ordered By: Neeta Gonzales on 10-23-2024 Calcium [Mass/Vol] 9.0 mg/dL 7.6-11.0 [facility] Serum or plasma urea nitroge n measurement (mass/volume)Ordered By: Neeta Gonzales on 10-23-2024 Urea nitrogen [Mass/Vol] 17 mg/dL 4-19 [facility] Sodium levelOrdered By: Satya Gonzales on 10-23-2024 Sodium [Moles/Vol] 139 mmol/L 133-145 [facility] Squamous epithelial cells de tection in urine sediment by light microscopyOrdered By: Neeta Gonzales on 10-23-2024 Epithelial cells.squamous LM Ql (Urine sed) 5-10 SEEN /hpf - [facility] Total proteinOrdered By: Bella Gonzales on 10-23-2024 Protein [Mass/Vol] 7.4 g/dL 5.9-8.4 [facility] Urinalysis, Completeon 10-23 BACTERIA 2+ /hpf Normal None Seen [facility] Comment on above: Order Comment: CLEAN CATCH Performed By: #### L 400.0001 ####[facility] [address] [place], [address] EPI,SQUAMOUS 5-10 SEEN Normal 5-10 [facility] Comment on above: Order Comment: CLEAN CATCH Performed By: #### L 400.0001 ####[facility] [address] [place], [address] Mucus Ql (Urine sed) 1+ /hpf Normal [facility] Comment on above: Order Comment: CLEAN CATCH Performed By: #### L 400.0001 ####[facility] [address] [place], [address] WBC 0-5 SEEN Normal 0-5 [facility] Comment on above: Order Comment: CLEAN CATCH Performed By: #### L 400.0001 ####[facility] [address] [place], [address] RBC 0 SEEN Normal 0-5 [facility] Comment on above: Order Comment: CLEAN CATCH Performed By: #### L 400.0001 ####[facility] [address] [place], [address] Urine clarityOrdered By: Bella Gonzales on 10-23-2024 Clarity (U) Sl. Cloudy Clear [facility] Urine color determinationOrd ered By: Neeta Gonzales on 10-23-2024 Color (U) Yellow Yellow [facility] Urine glucose detectionOrder ed By: Neeta Gonzales on 10-23-2024 Glucose Ql (U) Normal mg/dl Normal [facility] Urine leukocyte esterase det ection by dipstickOrdered By: Neeta Gonzales on 10-23-2024 Leukocyte esterase Test strip Ql (U) Negative Negative [facility] Urine pHOrdered By: Neeta rosado on 10-23-2024 pH (U) 6.0 [pH] 5.0 - 8.0 [facility] Urine sediment bacteria coun t by microscopy (number/high power field)Ordered By: Neeta Gonzales on 10-23-2024 Bacteria LM.HPF (Urine sed) [#/Area] 2 /[HPF] None Seen [facility] Urine specific gravity measu rementOrdered By: Neeta Gonzales on 10-23-2024 Specific gravity (U) [Rel density] 1.020 1.002-1.030 [facility] Urine urobilinogen measureme ntOrdered By: Neeta Gonzales on 10-23-2024 Urobilinogen Ql (U) 1 mg/dl High Normal [facility] White blood cell (WBC) count Ordered By: Neeta Gonzales on 10-23-2024 WBC (Bld) [#/Vol] 8.0 10*3/uL 4.4-11.0 [facility] White blood cell countOrdere d By: Neeta Gonzales on 10-23-2024 White blood cell count 0-5 SEEN /hpf 0-5 [facility] Venous duplex ultrasound rep ortOrdered By: Sumanth Patino on 10-19-2024 US Vein [facility] [address] [place] [address] Venous Duplex US, Unilateral 10/17/24 0957 MR#: [id number] Acct: [id number] Name: DAMARI RIOS Rep #:[id number] : 1975 48 From: Sumanth Curtis Attending Dr: Dr. Dwayne Stephens MD S tatus: REG CLI Ordering Dr: Dwayne Stephens MD Date: Location: [facility] Sex: F C Admitted: Reason For Study Reason For Study: Swelling RIGHT LEFT CFV is compressible, spontaneous, phasic, competent GSV is normal. and demonstrates normal augmentation. CFV is compressible, spontaneous, phasic, competent, Procedure and demonstrates normal augmentation. This is a venous duplex using B-mode, color flow and FV is compressible, spontaneous, phasic, competent spectral Doppler. and demonstrates normal augmentation. Exam performed in department. POP V is compressible, spontaneous, phasic, competent A preliminary report was called and/or faxed to and demonstrates normal augmentation. Dwayne Stephens MD. T/P Trunk is compressible. PTV is compressible. LT PerV is compressible. VL/Venous Duplex US, Unilateral Interpretation Summary Deep veins of the left lower extremity are patent and compressible segmentally. There is no evidence of left lower extremity deep vein thrombosis. The left great saphenous vein appears patent andcompressible segmentally. Ordering Physician: Dwayne Stephens Referring Physician: Dwayne Stephens Performed By: Venus Thorpe RVT 10/19/24 1013 Date _ Sumanth Patino MD CC: Dr. 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 Performed By: #### L 300.8000 ####[facility] [address] [place], [address] D-dimer measurement for deep venous thrombosisOrdered By: Dwayne Stephens on 10-16-2024 D-Dimer Quantitative (PE/DVT) 0.27 FEU/ug/m 0.27-0.49 [facility] Comment on above: NORMAL D-Dimer level (<0.50) indicates no DVT or PE. Emergency Department Summary on 10-01-2024 Emergency Department Summary Normal [facility] Tibia Fibula 2 Viewson 10-01 Tibia Fibula 2 Views Normal [facility] Ankle Brachial Indexon 09-25 Ankle Brachial Index Normal [facility] Arterial study reportOrdered By: Sumanth Patino on 09-25-2024 Noninvasive arteriosclerosis study report [facility] [address] [place] [address] Ankle Brachial Index 09/25/24 1404 MR#: [id number] Acct: [id number] Name: DAMARI RIOS Rep #:[id number] : 1975 48 From: Sumanth Curtis Attending Dr: Dr. Dwayne Stephens MD S tatus: REG CLI Ordering Dr: Dwayne Stephens MD Date: Location: CVS Sex: F C Admitted: Reason For Study Reason For Study: PVD Procedure A bilateral lower extremity continuous wave Doppler with analog waveform analysis and ankle brachial indexes. Left Segmental Pressures Left brachial= 127mmHg. Left posterior tibial artery = 147mmHg. Left dorsalis pedis artery = 152mmHg. Left digit = 137 mmHg. The left dorsalis pedis waveforms are triphasic. The left posterior tibialartery waveforms are triphasic. Right Segmental Pressures Right brachial= 127mmHg. Right posterior tibial artery = 154mmHg. Right dorsalispedis artery = 147mmHg. Right digit = 163 mmHg. The right dorsalis pedis waveforms are triphasic. The right posterior tibial artery waveforms are triphasic. Indices The right ankle brachial index by the dorsalis pedis is 1.16. The right ankle brachial index by the posterior tibial artery is 1.21. The right digital-brachial index is 1.28. The left ankle brachial index by the dorsalis pedis is 1.20. The left ankle brachial index by the posterior tibial artery is 1.16. The left digital-brachial index is 1.08. VL/Ankle Brachial Index Interpretation Summary Right GIANNI 1.21, normal. TBI and Doppler/PVR waveforms of the right ankle normal at rest. Left GIANNI 1.2, normal. TBI and Doppler/PVR waveforms of the left ankle normal at rest. Ordering Physician: Dwayne Stephens Referring Physician: DWAYNE STEPHENS MD Performed By: [facility] 09/25/241823 Date _ Sumanth Patino MD CC: Dr. Dwayne Stpehens MD ~ Date Dictated: 09/25/24 1404 Date Transcribed: 09/25/241823 [employer] Store Manager: Signed [facility] Work Phone: Abdomen/Pelvis W IV Cont ONL Yon 09-24-2024 Abdomen/Pelvis W IV Cont ONLY Normal [facility] Absolute lymphocyte countOrd ered By: ED PROVIDER on 09-24-2024 Lymphocytes Auto (Unsp spec) [#/Vol] 3.50 10*3/uL 0.83-4.51 [facility] Absolute neutrophil countOrd ered By: ED PROVIDER on 09-24-2024 Neutrophils (Bld) [#/Vol] 3.3 10*3/uL 2.0-7.7 [facility] Amorphous sediment detection in urine sediment by light microscopyOrdered By: Sumanth Coyne on 09-24-2024 Amorphous sediment LM Ql (Urine sed) 1+ [facility] Anion gap in Serum or Plasma Ordered By: Sumanth Coyne on 09-24-2024 Anion gap [Moles/Vol] 11 mmol/L 5-15 [facility] Automated lymphocyte count a s percentage of total leukocytesOrdered By: ED PROVIDER on 09-24-2024 Lymphocytes/100 WBC Auto (Unsp spec) 45.7 % High 19-41 [facility] BUN/creatinine ratioOrdered By: Sumanth Coyne on 09-24-2024 Urea nitrogen/Creatinine [Mass ratio] 19.3 mg/mg 10-20 [facility] Basophil percentageOrdered B y: ED PROVIDER on 09-24-2024 Basophils/100 WBC (Bld) 0.5 % 0-1 [facility] Beta HCG ( test) Ql Ordered By: Sumanth Coyne on 09-24-2024 Serum Test, Qualitative Negative [facility] Bilirubin Test strip Ql (U)O rdered By: Sumanth Coyne on 09-24-2024 Bilirubin Ql (U) Negative Negative [facility] Bilirubin, totalOrdered By: Sumanth Coyne on 09-24-2024 Bilirubin [Mass/Vol] 0.19 mg/dL 0.00-1.30 [facility] CBC W/Diff, Automatedon 08-31 Absolute Lymph 3.50 X10 3/uL Normal 0.83-4.51 [facility] Comment on above: Performed By: #### L 100.0100, L501.2450, L500.4050, L700.6800 ####[facility] [address] [place], [address] Absolute Neut 3.3 X10 3/uL Normal 2.0-7.7 [facility] Comment on above: Performed By: #### L 100.0100, L501.2450, L500.4050, L700.6800 ####[facility] [address] [place], [address] Basophils/100 WBC (Bld) 0.5 % Normal 0-1 [facility] Comment on above: Performed By: #### L 100.0100, L501.2450, L500.4050, L700.6800 ####[facility] [address] [place], [address] Eosinophils/100 WBC (Bld) 3.7 % Normal 0-5 [facility] Comment on above: Performed By: #### L 100.0100, L501.2450, L500.4050, L700.6800 ####[facility] [address] [place], [address] Erythrocyte distribution width (RBC) [Ratio] 12.6 % Normal 11.6-14.6 [facility] Comment on above: Performed By: #### L 100.0100, L501.2450, L500.4050, L700.6800 ####[facility] [address] [place], [address] Hematocrit (Bld) [Volume fraction] 35.7 % Low 37-47 [facility] Comment on above: Performed By: #### L 100.0100, L501.2450, L500.4050, L700.6800 ####[facility] [address] [place], [address] Hemoglobin (Bld) [Mass/Vol] 12.4 g/dL Normal 12.0-15.0 [facility] Comment on above: Performed By: #### L 100.0100, L501.2450, L500.4050, L700.6800 ####[facility] [address] [place], [address] IG% 0.300 Normal 0.0-0.9 [facility] Comment on above: Result Comment: IG% - Immature Granulocytes (promyelocytes, myelocytes andmetamyelocytes) > 1% indicates that a LEFT SHIFT is Present. Performed By: #### L 100.0100, L501.2450, L500.4050, L700.6800 ####[facility] [address] [place], [address] Lymphocytes/100 WBC (Bld) 45.7 % High 19-41 [facility] Comment on above: Performed By: #### L 100.0100, L501.2450, L500.4050, L700.6800 ####[facility] [address] [place], [address] MCH (RBC) [Entitic mass] 31.2 pg Normal 27.0-32.0 [facility] Comment on above: Performed By: #### L 100.0100, L501.2450, L500.4050, L700.6800 ####[facility] [address] [place], [address] MCHC (RBC) [Mass/Vol] 34.7 g/dL Normal 32-36 [facility] Comment on above: Performed By: #### L 100.0100, L501.2450, L500.4050, L700.6800 ####[facility] [address] [place], [address] MCV (RBC) [Entitic vol] 89.9 fL Normal 81-99 [facility] Comment on above: Performed By: #### L 100.0100, L501.2450, L500.4050, L700.6800 ####[facility] [address] [place], [address] Monocytes/100 WBC (Bld) 6.9 % Normal 0-10 [facility] Comment on above: Performed By: #### L 100.0100, L501.2450, L500.4050, L700.6800 ####[facility] [address] [place], [address] Neutrophils/100 WBC (Bld) 42.9 % Low 47-70 [facility] Comment on above: Performed By: #### L 100.0100, L501.2450, L500.4050, L700.6800 ####[facility] [address] [place], [address] Nucleated RBC (Bld) [#/Vol] 0 10*3/uL Normal 0-5 [facility] Comment on above: Performed By: #### L 100.0100, L501.2450, L500.4050, L700.6800 ####[facility] [address] [place], [address] Platelet mean volume (Bld) [Entitic vol] 8.6 fL Normal 6.2-12.0 [facility] Comment on above: Performed By: #### L 100.0100, L501.2450, L500.4050, L700.6800 ####[facility] [address] [place], [address] Platelets (Bld) [#/Vol] 344 10*3/uL Normal 150-450 [facility] Comment on above: Performed By: #### L 100.0100, L501.2450, L500.4050, L700.6800 ####[facility] [address] [place], [address] RBC (Bld) [#/Vol] 3.97 10*6/uL Low 4.2-5.4 [facility] Comment on above: Performed By: #### L 100.0100, L501.2450, L500.4050, L700.6800 ####[facility] [address] [place], [address] RDW SD 41.2 fl Normal 35.1-43.9 [facility] Comment on above: Performed By: #### L 100.0100, L501.2450, L500.4050, L700.6800 ####[facility] [address] [place], [address] WBC (Bld) [#/Vol] 7.7 10*3/uL Normal 4.4-11.0 [facility] Comment on above: Performed By: #### L 100.0100, L501.2450, L500.4050, L700.6800 ####[facility] [address] [place], [address] Carbon dioxide, total [Moles /volume] in Central venous bloodOrdered By: Sumanth Coyne on 09-24-2024 CO2 [Moles/Vol] 22.7 mmol/L 21.0-32.0 [facility] Chloride assayOrdered By: Ruby Coyne on 09-24-2024 Chloride [Moles/Vol] 108 mmol/L 98-108 [facility] Comprehensive Metabolic Prof ilon 09-24-2024 Albumin [Mass/Vol] 4.2 g/dL Normal 3.5-5.0 [facility] Comment on above: Performed By: #### L 100.0100, L501.2450, L500.4050, L700.6800 ####[facility] [address] [place], [address] Albumin/Globulin [Mass ratio] 1.4 {ratio} Normal 0.9-2.4 [facility] Comment on above: Performed By: #### L 100.0100, L501.2450, L500.4050, L700.6800 ####[facility] [address] [place], [address] ALK PHOS 85 U/L Normal 35-104 [facility] Comment on above: Performed By: #### L 100.0100, L501.2450, L500.4050, L700.6800 ####[facility] [address] [place], [address] ALT [Catalytic activity/Vol] 43 U/L High <=34 [facility] Comment on above: Performed By: #### L 100.0100, L501.2450, L500.4050, L700.6800 ####[facility] [address] [place], [address] AST [Catalytic activity/Vol] 39 U/L High <=31 [facility] Comment on above: Result Comment: Hemo lysis present, Results??could be affected.?? Performed By: #### L 100.0100, L501.2450, L500.4050, L700.6800 ####[facility] [address] [place], [address] Bilirubin [Mass/Vol] 0.19 mg/dL Normal 0.00-1.30 [facility] Comment on above: Performed By: #### L 100.0100, L501.2450, L500.4050, L700.6800 ####[facility] [address] [place], [address] BUN/CRE 19.3 RATIO Normal 10-20 [facility] Comment on above: Performed By: #### L 100.0100, L501.2450, L500.4050, L700.6800 ####[facility] [address] [place], [address] Calcium [Mass/Vol] 9.1 mg/dL Normal 7.6-11.0 [facility] Comment on above: Performed By: #### L 100.0100, L501.2450, L500.4050, L700.6800 ####[facility] [address] [place], [address] Chloride [Moles/Vol] 108 mmol/L Normal 98-108 [facility] Comment on above: Performed By: #### L 100.0100, L501.2450, L500.4050, L700.6800 ####[facility] [address] [place], [address] CO2 [Moles/Vol] 22.7 mmol/L Normal 21.0-32.0 [facility] Comment on above: Performed By: #### L 100.0100, L501.2450, L500.4050, L700.6800 ####[facility] [address] [place], [address] Creatinine [Mass/Vol] 1.01 mg/dL Normal 0.70-1.20 [facility] Comment on above: Performed By: #### L 100.0100, L501.2450, L500.4050, L700.6800 ####[facility] [address] [place], [address] ECRCL 76.03 ml/min Normal 50-250 [facility] Comment on above: Performed By: #### L 100.0100, L501.2450, L500.4050, L700.6800 ####[facility] [address] [place], [address] GAP 11 Normal 5-15 [facility] Comment on above: Performed By: #### L 100.0100, L501.2450, L500.4050, L700.6800 ####[facility] [address] [place], [address] GFR/1.73 sq M.predicted among non-blacks MDRD (S/P/Bld) [Vol rate/Area] 69 mL/min/{1.73_m2} Normal >60 [facility] Comment on above: Result Comment: mL/m in/1.73m2 CKD-EPI Creatinine Equation (2021) Performed By: #### L 100.0100, L501.2450, L500.4050, L700.6800 ####[facility] [address] [place], [address] Globulin (S) [Mass/Vol] 3.1 g/dL Normal 2.2-4.2 [facility] Comment on above: Performed By: #### L 100.0100, L501.2450, L500.4050, L700.6800 ####[facility] [address] [place], [address] Glucose [Mass/Vol] 109 mg/dL High 70-99 [facility] Comment on above: Performed By: #### L 100.0100, L501.2450, L500.4050, L700.6800 ####[facility] [address] [place], [address] Potassium [Moles/Vol] 4.2 mmol/L Normal 3.3-5.1 [facility] Comment on above: Result Comment: Hemo lysis present, Results??could be affected.?? Performed By: #### L 100.0100, L501.2450, L500.4050, L700.6800 ####[facility] [address] [place], [address] Sodium [Moles/Vol] 141 mmol/L Normal 133-145 [facility] Comment on above: Performed By: #### L 100.0100, L501.2450, L500.4050, L700.6800 ####[facility] [address] [place], [address] T PROT 7.3 g/dL Normal 5.9-8.4 [facility] Comment on above: Performed By: #### L 100.0100, L501.2450, L500.4050, L700.6800 ####[facility] [address] [place], [address] Urea nitrogen [Mass/Vol] 20 mg/dL High 4-19 [facility] Comment on above: Performed By: #### L 100.0100, L501.2450, L500.4050, L700.6800 ####[facility] [address] [place], [address] Emergency Department Summary on 09-24-2024 Emergency Department Summary Normal [facility] Eosinophil percentageOrdered By: ED PROVIDER on 09-24-2024 Eosinophils/100 WBC (Bld) 3.7 % 0-5 [facility] Epithelial cells.squamous LM Ql (Urine sed)Ordered By: Sumanth Coyne on 09-24-2024 Epithelial cells.squamous LM.HPF (Urine sed) [#/Area] 5 /[HPF] 5-10 [facility] Erythrocyte distribution wid th ratioOrdered By: ED PROVIDER on 09-24-2024 Erythrocyte distribution width (RBC) [Ratio] 12.6 % 11.6-14.6 [facility] Erythrocyte distribution wid th standard deviationOrdered By: ED PROVIDER on 09-24-2024 Erythrocyte distribution width (RBC) [Entitic vol] 41.2 fL 35.1-43.9 [facility] Erythrocyte distribution width (RBC) [Ratio] 41.2 fl 35.1-43.9 [facility] Estimation of creatinine jenny aranceOrdered By: Sumanth Coyne on 09-24-2024 Estimated Creatinine Clearance Calc 76.03 ml/min 50-250 [facility] GFR/1.73 sq M.predicted enl g non-blacks MDRD (S/P/Bld) [Vol rate/Area]Ordered By: Sumanth Coyne on 09-24-2024 Estimated GFR (MDRD) Non-Af Amer 69 >60 [facility] Comment on above: mL/min/1.73m2 CKD-EP I Creatinine Equation (2020) Glomerular filtration rate ( GFR) estimation/1.73 sq m using serum, plasma, or whole bOrdered By: Sumanth Coyne on 09-24-2024 GFR/1.73 sq M.predicted among non-blacks MDRD (S/P/Bld) [Vol rate/Area] 69 mL/min/{1.73_m2} >60 [facility] Comment on above: mL/min/1.73m2 CKD-EP I Creatinine Equation (2020) Glucose Ql (U)Ordered By: Ruby Coyne on 09-24-2024 Urine Glucose (UA) Normal mg/dl Normal [facility] Hematocrit Auto (Bld) [Volum e fraction]Ordered By: ED PROVIDER on 09-24-2024 Hematocrit (Bld) [Volume fraction] 35.7 % Low 37-47 [facility] Hemoglobin measurementOrdere d By: ED PROVIDER on 09-24-2024 Hemoglobin (Bld) [Mass/Vol] 12.4 g/dL 12.0-15.0 [facility] Immature granulocytes/100 WB C Auto (Bld)Ordered By: ED PROVIDER on 09-24-2024 Immature granulocytes/100 WBC (Bld) 0.300 % 0.0-0.9 [facility] Comment on above: IG% - Immature Granu locytes (promyelocytes, myelocytes and metamyelocytes) > 1% indicates that a LEFT SHIFT is Present. Ketones Test strip Ql (U)Ord ered By: Sumanth Coyne on 09-24-2024 Ketones Ql (U) Negative Negative [facility] Laboratory - Chemistry and C hemistry - challengeOrdered By: Sumanth Coyne on 09-24-2024 AST [Catalytic activity/Vol] 39 U/L High <32 [facility] Comment on above: Hemolysis present, R esults could be affected. Lipaseon 09-24-2024 Lipase [Catalytic activity/Vol] 47 U/L Normal 13-75 [facility] Comment on above: Result Comment: Arcadio de la paz note:LIPASE revised reference range effective 22.New Lipase methodology. Expected to produce lower valuesthan the previous assay method.NEW Reference Range: 13 - 75 U/L Performed By: #### L 100.0100, L501.2450, L500.4050, L700.6800 ####[facility] [address] [place], [place], [id number] Lipase measurementOrdered By : Sumanth Coyne on 09-24-2024 Lipase [Catalytic activity/Vol] 47 U/L 13-75 [facility] Comment on above: Please note:LIPASE r evised reference range effective 22. New Lipase methodology. Expected to produce lower values than the previous assay method. NEW Reference Range: 13 - 75 U/L Lymphocytes Auto (Unsp spec) [#/Vol]Ordered By: ED PROVIDER on 09-24-2024 Lymphocytes (Bld) [#/Vol] 3.50 10*3/uL 0.83-4.51 [facility] Lymphocytes/100 WBC Auto (Un sp spec)Ordered By: ED PROVIDER on 09-24-2024 Lymphocytes/100 WBC (Bld) 45.7 % High 19-41 [facility] MCV (mean corpuscular volume ) determinationOrdered By: ED PROVIDER on 09-24-2024 MCV (RBC) [Entitic vol] 89.9 fL 81-99 [facility] Mean corpuscular hemoglobin (MCH) determinationOrdered By: ED PROVIDER on 09-24-2024 MCH (RBC) [Entitic mass] 31.2 pg 27.0-32.0 [facility] Mean corpuscular hemoglobin concentration (MCHC) determinationOrdered By: ED PROVIDER on 09-24-2024 MCHC (RBC) [Mass/Vol] 34.7 g/dL 32-36 [facility] Mean platelet volume determi nationOrdered By: ED PROVIDER on 09-24-2024 Platelet mean volume (Bld) [Entitic vol] 8.6 fL 6.2-12.0 [facility] Microscopic analysis of urin e for red blood cells (RBC)Ordered By: Sumanth Coyne on 09-24-2024 Microscopic analysis of urine for red blood cells (RBC) 0-5 SEEN /hpf 0-5 [facility] Urine RBC 0-5 SEEN /hpf 0-5 [facility] Monocyte percentageOrdered B y: ED PROVIDER on 09-24-2024 Monocytes/100 WBC (Bld) 6.9 % 0-10 [facility] Mucus LM Ql (Urine sed)Order ed By: Sumanth Coyne on 09-24-2024 Mucus Ql (Urine sed) 0 SEEN /hpf [facility] Neutrophil percentageOrdered By: ED PROVIDER on 09-24-2024 Neutrophils/100 WBC (Bld) 42.9 % Low 47-70 [facility] Nitrite Test strip Ql (U)Ord ered By: Sumanth Coyne on 09-24-2024 Nitrite Ql (U) Negative Negative [facility] Nucleated red blood cell per centageOrdered By: ED PROVIDER on 09-24-2024 Nucleated RBC/100 WBC (Bld) [Ratio] 0 % 0-5 [facility] Platelet countOrdered By: ED PROVIDER on 09-24-2024 Platelets (Bld) [#/Vol] 344 10*3/uL 150-450 [facility] Potassium (Unsp spec) [Mass/ Vol]Ordered By: Sumanth Coyne on 09-24-2024 Potassium [Moles/Vol] 4.2 mmol/L 3.3-5.1 [facility] Comment on above: Hemolysis present, R esults could be affected. Potassium measurement (mass/ volume)Ordered By: Sumanth Coyne on 09-24-2024 Potassium (Unsp spec) [Mass/Vol] 4.2 mmol/L 3.3-5.1 [facility] Comment on above: Hemolysis present, R esults could be affected. ,Serum,hCG Quali.on 09-24-2024 HCG, SERUM QUAL Negative Normal [facility] Comment on above: Performed By: #### L 100.0100, L501.2450, L500.4050, L700.6800 ####[facility] [address] [place], [place], [id number] Protein Test strip Ql (U)Ord ered By: Sumanth Coyne on 09-24-2024 Protein Ql (U) 30 mg/dl High Negative [facility] RBC Auto (Bld) [#/Vol]Ordere d By: ED PROVIDER on 09-24-2024 RBC (Bld) [#/Vol] 3.97 10*6/uL Low 4.2-5.4 [facility] Serum beta-hCG test, qualita tiveOrdered By: Sumanth Coyne on 09-24-2024 Beta HCG ( test) Ql Negative [facility] Serum creatinine measurement (mass/volume)Ordered By: Sumanth Coyne on 09-24-2024 Creatinine [Mass/Vol] 1.01 mg/dL 0.70-1.20 [facility] Serum globulin measurementOr dered By: Sumanth Coyne on 09-24-2024 Globulin (S) [Mass/Vol] 3.1 g/dL 2.2-4.2 [facility] Serum glucose measurement (m ass/volume)Ordered By: Sumanth Coyne on 09-24-2024 Glucose [Mass/Vol] 109 mg/dL High 70-99 [facility] Serum or plasma alanine irwin otransferase (ALT) measurementOrdered By: Sumanth Coyne on 09-24-2024 ALT [Catalytic activity/Vol] 43 U/L High <35 [facility] Serum or plasma albumin marianna urement (mass/volume)Ordered By: Sumanth Coyne on 09-24-2024 Albumin [Mass/Vol] 4.2 g/dL 3.5-5.0 [facility] Serum or plasma albumin/glob ulin mass ratioOrdered By: Sumanth Coyne on 09-24-2024 Albumin/Globulin [Mass ratio] 1.4 {ratio} 0.9-2.4 [facility] Serum or plasma alkaline caity sphatase measurementOrdered By: Sumanth Coyne on 09-24-2024 ALP [Catalytic activity/Vol] 85 U/L 35-104 [facility] Serum or plasma calcium marianna urement (mass/volume)Ordered By: Sumanth Coyne on 09-24-2024 Calcium [Mass/Vol] 9.1 mg/dL 7.6-11.0 [facility] Serum or plasma urea nitroge n measurement (mass/volume)Ordered By: Sumanth Coyne on 09-24-2024 Urea nitrogen [Mass/Vol] 20 mg/dL High 4-19 [facility] Sodium levelOrdered By: Sumanth Coyne on 09-24-2024 Sodium [Moles/Vol] 141 mmol/L 133-145 [facility] Squamous epithelial cells de tection in urine sediment by light microscopyOrdered By: Sumanth Coyne on 09-24-2024 Epithelial cells.squamous LM Ql (Urine sed) 5-10 SEEN /hpf 5-10 [facility] Total proteinOrdered By: Sugar Coyne on 09-24-2024 Protein [Mass/Vol] 7.3 g/dL 5.9-8.4 [facility] Urinalysis, Completeon 09-24 AMORPHOUS 1+ Normal [facility] Comment on above: Order Comment: CLEAN CATCH Performed By: #### L 400.0001 ####[facility] [address] [place], [address] BACTERIA 2+ /hpf Normal None Seen [facility] Comment on above: Order Comment: CLEAN CATCH Performed By: #### L 400.0001 ####[facility] [address] [place], [address] EPI,SQUAMOUS 5-10 SEEN Normal 5-10 [facility] Comment on above: Order Comment: CLEAN CATCH Performed By: #### L 400.0001 ####[facility] [address] [place], [address] Mucus Ql (Urine sed) 0 SEEN Normal [facility] Comment on above: Order Comment: CLEAN CATCH Performed By: #### L 400.0001 ####[facility] [address] [place], [address] RBC 0-5 SEEN Normal 0-5 [facility] Comment on above: Order Comment: CLEAN CATCH Performed By: #### L 400.0001 ####[facility] [address] [place], [address] WBC 0-5 SEEN Normal 0-5 [facility] Comment on above: Order Comment: CLEAN CATCH Performed By: #### L 400.0001 ####[facility] [address] [place], [address] Urine blood detectionOrdered By: Sumanth Coyne on 09-24-2024 Urine Occult Blood 10 /ul High Negative [facility] Urine clarityOrdered By: Sugar Coyne on 09-24-2024 Clarity (U) Sl. Cloudy Clear [facility] Urine color determinationOrd ered By: Sumanth Coyne on 09-24-2024 Color (U) Yellow Yellow [facility] Urine glucose detectionOrder ed By: Suamnth Coyne on 09-24-2024 Glucose Ql (U) Normal mg/dl Normal [facility] Urine leukocyte esterase det ection by dipstickOrdered By: Sumanth Coyne on 09-24-2024 Leukocyte esterase Test strip Ql (U) Negative Negative [facility] Urine pHOrdered By: Sumanth lambert on 09-24-2024 pH (U) 5.0 [pH] 5.0 - 8.0 [facility] Urine sediment bacteria coun t by microscopy (number/high power field)Ordered By: Sumanth Coyne on 09-24-2024 Bacteria LM.HPF (Urine sed) [#/Area] 2 /[HPF] None Seen [facility] Urine specific gravity measu rementOrdered By: Sumanth Coyne on 09-24-2024 Specific gravity (U) [Rel density] 1.025 1.002-1.030 [facility] Urine urobilinogen measureme ntOrdered By: Sumanth Coyne on 09-24-2024 Urobilinogen Ql (U) Normal mg/dl Normal [facility] Urobilinogen Ql (U)Ordered B y: Sumanth Coyne on 09-24-2024 Urine Urobilinogen Normal mg/dl Normal [facility] White blood cell (WBC) count Ordered By: ED PROVIDER on 09-24-2024 WBC (Bld) [#/Vol] 7.7 10*3/uL 4.4-11.0 [facility] White blood cell countOrdere d By: Sumanth Coyne on 09-24-2024 Urine WBC 0-5 SEEN /hpf 0-5 [facility] White blood cell count 0-5 SEEN /hpf 0-5 [facility] Abdomen/Pelvis without Conto n 09-04-2024 Abdomen/Pelvis without Cont Normal [facility] Absolute lymphocyte countOrd ered By: Eulogio Acuña on 09-04-2024 Lymphocytes Auto (Unsp spec) [#/Vol] 3.11 10*3/uL 0.83-4.51 [facility] Absolute neutrophil countOrd ered By: Eulogio Acuña on 09-04-2024 Neutrophils (Bld) [#/Vol] 3.0 10*3/uL 2.0-7.7 [facility] Anion gap in Serum or Plasma Ordered By: Eulogio Acuña on 09-04-2024 Anion gap [Moles/Vol] 10 mmol/L 5-15 [facility] Automated lymphocyte count a s percentage of total leukocytesOrdered By: Eulogio Acuña on 09-04-2024 Lymphocytes/100 WBC Auto (Unsp spec) 46.3 % High 19-41 [facility] BUN/creatinine ratioOrdered By: Eulogio Acuña on 09-04-2024 Urea nitrogen/Creatinine [Mass ratio] 16.2 mg/mg 10-20 [facility] Basophil percentageOrdered B y: Eulogio Acuña on 09-04-2024 Basophils/100 WBC (Bld) 0.4 % 0-1 [facility] Bilirubin Test strip Ql (U)O rdered By: Eulogio Acuña on 09-04-2024 Bilirubin Ql (U) Negative Negative [facility] Bilirubin, totalOrdered By: Eulogio Acuña on 09-04-2024 Bilirubin [Mass/Vol] 0.26 mg/dL 0.00-1.30 [facility] CBC W/Diff, Automatedon Absolute Lymph 3.11 X10 3/uL Normal 0.83-4.51 [facility] Comment on above: Performed By: #### L 100.0100, L500.4050, L501.2450 ####[facility] [address] [place], [address] Absolute Neut 3.0 X10 3/uL Normal 2.0-7.7 [facility] Comment on above: Performed By: #### L 100.0100, L500.4050, L501.2450 ####[facility] [address] [place], [address] Basophils/100 WBC (Bld) 0.4 % Normal 0-1 [facility] Comment on above: Performed By: #### L 100.0100, L500.4050, L501.2450 ####[facility] [address] [place], [address] Eosinophils/100 WBC (Bld) 3.3 % Normal 0-5 [facility] Comment on above: Performed By: #### L 100.0100, L500.4050, L501.2450 ####[facility] [address] [place], [address] Erythrocyte distribution width (RBC) [Ratio] 12.5 % Normal 11.6-14.6 [facility] Comment on above: Performed By: #### L 100.0100, L500.4050, L501.2450 ####[facility] [address] [place], [address] Hematocrit (Bld) [Volume fraction] 37.3 % Normal 37-47 [facility] Comment on above: Performed By: #### L 100.0100, L500.4050, L501.2450 ####[facility] [address] [place], [address] Hemoglobin (Bld) [Mass/Vol] 12.8 g/dL Normal 12.0-15.0 [facility] Comment on above: Performed By: #### L 100.0100, L500.4050, L501.2450 ####[facility] [address] [place], [address] IG% 0.100 Normal 0.0-0.9 [facility] Comment on above: Result Comment: IG% - Immature Granulocytes (promyelocytes, myelocytes andmetamyelocytes) > 1% indicates that a LEFT SHIFT is Present. Performed By: #### L 100.0100, L500.4050, L501.2450 ####[facility] [address] [place], [address] Lymphocytes/100 WBC (Bld) 46.3 % High 19-41 [facility] Comment on above: Performed By: #### L 100.0100, L500.4050, L501.2450 ####[facility] [address] [place], [address] MCH (RBC) [Entitic mass] 31.2 pg Normal 27.0-32.0 [facility] Comment on above: Performed By: #### L 100.0100, L500.4050, L501.2450 ####[facility] [address] [place], [address] MCHC (RBC) [Mass/Vol] 34.3 g/dL Normal 32-36 [facility] Comment on above: Performed By: #### L 100.0100, L500.4050, L501.2450 ####[facility] [address] [place], [address] MCV (RBC) [Entitic vol] 91.0 fL Normal 81-99 [facility] Comment on above: Performed By: #### L 100.0100, L500.4050, L501.2450 ####[facility] [address] [place], [address] Monocytes/100 WBC (Bld) 5.8 % Normal 0-10 [facility] Comment on above: Performed By: #### L 100.0100, L500.4050, L501.2450 ####[facility] [address] [place], [address] Neutrophils/100 WBC (Bld) 44.1 % Low 47-70 [facility] Comment on above: Performed By: #### L 100.0100, L500.4050, L501.2450 ####[facility] [address] [place], [address] Nucleated RBC (Bld) [#/Vol] 0 10*3/uL Normal 0-5 [facility] Comment on above: Performed By: #### L 100.0100, L500.4050, L501.2450 ####[facility] [address] [place], [address] Platelet mean volume (Bld) [Entitic vol] 8.6 fL Normal 6.2-12.0 [facility] Comment on above: Performed By: #### L 100.0100, L500.4050, L501.2450 ####[facility] [address] [place], [address] Platelets (Bld) [#/Vol] 324 10*3/uL Normal 150-450 [facility] Comment on above: Performed By: #### L 100.0100, L500.4050, L501.2450 ####[facility] [address] [place], [address] RBC (Bld) [#/Vol] 4.10 10*6/uL Low 4.2-5.4 [facility] Comment on above: Performed By: #### L 100.0100, L500.4050, L501.2450 ####[facility] [address] [place], [address] RDW SD 41.1 fl Normal 35.1-43.9 [facility] Comment on above: Performed By: #### L 100.0100, L500.4050, L501.2450 ####[facility] [address] [place], [address] WBC (Bld) [#/Vol] 6.7 10*3/uL Normal 4.4-11.0 [facility] Comment on above: Performed By: #### L 100.0100, L500.4050, L501.2450 ####[facility] [address] [place], [address] Carbon dioxide, total [Moles /volume] in Central venous bloodOrdered By: Eulogio Acuña on 09-04-2024 CO2 [Moles/Vol] 23.0 mmol/L 21.0-32.0 [facility] Chest 1 View (Portable)on Chest 1 View (Portable) Normal [facility] Chloride assayOrdered By: Scott Acuña on 09-04-2024 Chloride [Moles/Vol] 106 mmol/L 98-108 [facility] Comprehensive Metabolic Prof ilon 09-04-2024 Albumin [Mass/Vol] 4.2 g/dL Normal 3.5-5.0 [facility] Comment on above: Performed By: #### L 100.0100, L500.4050, L501.2450 ####[facility] [address] [place], [address] Albumin/Globulin [Mass ratio] 1.4 {ratio} Normal 0.9-2.4 [facility] Comment on above: Performed By: #### L 100.0100, L500.4050, L501.2450 ####[facility] [address] [place], [address] ALK PHOS 86 U/L Normal 35-104 [facility] Comment on above: Performed By: #### L 100.0100, L500.4050, L501.2450 ####[facility] [address] [place], [address] ALT [Catalytic activity/Vol] 47 U/L High <=34 [facility] Comment on above: Performed By: #### L 100.0100, L500.4050, L501.2450 ####[facility] [address] [place], [address] AST [Catalytic activity/Vol] 33 U/L High <=31 [facility] Comment on above: Performed By: #### L 100.0100, L500.4050, L501.2450 ####[facility] [address] [place], [address] Bilirubin [Mass/Vol] 0.26 mg/dL Normal 0.00-1.30 [facility] Comment on above: Performed By: #### L 100.0100, L500.4050, L501.2450 ####[facility] [address] [place], [address] BUN/CRE 16.2 RATIO Normal 10-20 [facility] Comment on above: Performed By: #### L 100.0100, L500.4050, L501.2450 ####[facility] [address] [place], [address] Calcium [Mass/Vol] 9.2 mg/dL Normal 7.6-11.0 [facility] Comment on above: Performed By: #### L 100.0100, L500.4050, L501.2450 ####[facility] [address] [place], [address] Chloride [Moles/Vol] 106 mmol/L Normal 98-108 [facility] Comment on above: Performed By: #### L 100.0100, L500.4050, L501.2450 ####[facility] [address] [place], [address] CO2 [Moles/Vol] 23.0 mmol/L Normal 21.0-32.0 [facility] Comment on above: Performed By: #### L 100.0100, L500.4050, L501.2450 ####[facility] [address] [place], [address] Creatinine [Mass/Vol] 1.00 mg/dL Normal 0.70-1.20 [facility] Comment on above: Performed By: #### L 100.0100, L500.4050, L501.2450 ####[facility] [address] [place], [address] ECRCL 75.99 ml/min Normal 50-250 [facility] Comment on above: Performed By: #### L 100.0100, L500.4050, L501.2450 ####[facility] [address] [place], [address] GAP 10 Normal 5-15 [facility] Comment on above: Performed By: #### L 100.0100, L500.4050, L501.2450 ####[facility] [address] [place], [address] GFR/1.73 sq M.predicted among non-blacks MDRD (S/P/Bld) [Vol rate/Area] 70 mL/min/{1.73_m2} Normal >60 [facility] Comment on above: Result Comment: mL/m in/1.73m2 CKD-EPI Creatinine Equation (2020) Performed By: #### L 100.0100, L500.4050, L501.2450 ####[facility] [address] [place], [address] Globulin (S) [Mass/Vol] 3.0 g/dL Normal 2.2-4.2 [facility] Comment on above: Performed By: #### L 100.0100, L500.4050, L501.2450 ####[facility] [address] [place], [address] Glucose [Mass/Vol] 92 mg/dL Normal 70-99 [facility] Comment on above: Performed By: #### L 100.0100, L500.4050, L501.2450 ####[facility] [address] [place], [address] Potassium [Moles/Vol] 4.1 mmol/L Normal 3.3-5.1 [facility] Comment on above: Performed By: #### L 100.0100, L500.4050, L501.2450 ####[facility] [address] [place], [address] Sodium [Moles/Vol] 139 mmol/L Normal 133-145 [facility] Comment on above: Performed By: #### L 100.0100, L500.4050, L501.2450 ####[facility] [address] [place], [address] T PROT 7.3 g/dL Normal 5.9-8.4 [facility] Comment on above: Performed By: #### L 100.0100, L500.4050, L501.2450 ####[facility] [address] [place], [address] Urea nitrogen [Mass/Vol] 16 mg/dL Normal 4-19 [facility] Comment on above: Performed By: #### L 100.0100, L500.4050, L501.2450 ####[facility] [address] [place], [place], [address] Emergency Department Summary on 09-04-2024 Emergency Department Summary Normal [facility] Eosinophil percentageOrdered By: Eulogio Acuña on 09-04-2024 Eosinophils/100 WBC (Bld) 3.3 % 0-5 [facility] Epithelial cells.squamous LM Ql (Urine sed)Ordered By: Eulogio Acuña on 09-04-2024 Epithelial cells.squamous LM.HPF (Urine sed) [#/Area] 5 /[HPF] 5-10 [facility] Erythrocyte distribution wid th ratioOrdered By: Eulogio Acuña on 09-04-2024 Erythrocyte distribution width (RBC) [Ratio] 12.5 % 11.6-14.6 [facility] Erythrocyte distribution wid th standard deviationOrdered By: Eulogio Acuña on 09-04-2024 Erythrocyte distribution width (RBC) [Entitic vol] 41.1 fL 35.1-43.9 [facility] Erythrocyte distribution width (RBC) [Ratio] 41.1 fl 35.1-43.9 [facility] Estimation of creatinine jenny aranceOrdered By: Eulogio Acuña on 09-04-2024 Estimated Creatinine Clearance Calc 75.99 ml/min 50-250 [facility] GFR/1.73 sq M.predicted nel g non-blacks MDRD (S/P/Bld) [Vol rate/Area]Ordered By: Eulogio Acuña on 09-04-2024 Estimated GFR (MDRD) Non-Af Amer 70 >60 [facility] Comment on above: mL/min/1.73m2 CKD-EP I Creatinine Equation (2020) Glomerular filtration rate ( GFR) estimation/1.73 sq m using serum, plasma, or whole bOrdered By: Eulogio Acuña on 09-04-2024 GFR/1.73 sq M.predicted among non-blacks MDRD (S/P/Bld) [Vol rate/Area] 70 mL/min/{1.73_m2} >60 [facility] Comment on above: mL/min/1.73m2 CKD-EP I Creatinine Equation (2020) Glucose Ql (U)Ordered By: Scott Acuña on 09-04-2024 Urine Glucose (UA) Normal mg/dl Normal [facility] Hematocrit Auto (Bld) [Volum e fraction]Ordered By: Eulogio Acuña on 09-04-2024 Hematocrit (Bld) [Volume fraction] 37.3 % 37-47 [facility] Hemoglobin measurementOrdere d By: Eulogio Acuña on 09-04-2024 Hemoglobin (Bld) [Mass/Vol] 12.8 g/dL 12.0-15.0 [facility] Immature granulocytes/100 WB C Auto (Bld)Ordered By: Eulogio Acuña on 09-04-2024 Immature granulocytes/100 WBC (Bld) 0.100 % 0.0-0.9 [facility] Comment on above: IG% - Immature Granu locytes (promyelocytes, myelocytes and metamyelocytes) > 1% indicates that a LEFT SHIFT is Present. Influenza virus A and B and SARS-CoV-2 (COVID-19) and Respiratory syncytial virus RNAOrdered By: Eulogio Acuña on 09-04-2024 SARS-CoV-2 (COVID-19) RNA ANDRY+probe Ql (Unsp spec) [facility] Ketones Test strip Ql (U)Ord ered By: Eulogio Acuña on 09-04-2024 Ketones Ql (U) Negative Negative [facility] Laboratory - Chemistry and C hemistry - challengeOrdered By: Eulogio Acuña on 09-04-2024 AST [Catalytic activity/Vol] 33 U/L High <32 [facility] Lipaseon 09-04-2024 Lipase [Catalytic activity/Vol] 51 U/L Normal 13-75 [facility] Comment on above: Result Comment: Arcadio de la paz note:LIPASE revised reference range effective 22.New Lipase methodology. Expected to produce lower valuesthan the previous assay method.NEW Reference Range: 13 - 75 U/L Performed By: #### L 100.0100, L500.4050, L501.2450 ####[facility] [address] [place], [address] Lipase measurementOrdered By : Eulogio Acuña on 09-04-2024 Lipase [Catalytic activity/Vol] 51 U/L 13-75 [facility] Comment on above: Please note:LIPASE r evised reference range effective 22. New Lipase methodology. Expected to produce lower values than the previous assay method. NEW Reference Range: 13 - 75 U/L Lymphocytes Auto (Unsp spec) [#/Vol]Ordered By: Eulogio Acuña on 09-04-2024 Lymphocytes (Bld) [#/Vol] 3.11 10*3/uL 0.83-4.51 [facility] Lymphocytes/100 WBC Auto (Un sp spec)Ordered By: Eulogio Acuña on 09-04-2024 Lymphocytes/100 WBC (Bld) 46.3 % High 19-41 [facility] M100.678on 09-04-2024 M100.678 Pending SARS-CoV-2 (COVID 19) Negative INFLUENZA A Negative INFLUENZA B Negative RSV PCR Negative Normal [facility] Comment on above: Performed By: #### L 400.0001, M100.678 ####[facility] [address] [place], [address] MCV (mean corpuscular volume ) determinationOrdered By: Eulogio Acuña on 09-04-2024 MCV (RBC) [Entitic vol] 91.0 fL 81-99 [facility] Mean corpuscular hemoglobin (MCH) determinationOrdered By: Eulogio Acuña on 09-04-2024 MCH (RBC) [Entitic mass] 31.2 pg 27.0-32.0 [facility] Mean corpuscular hemoglobin concentration (MCHC) determinationOrdered By: Eulogio Acuña on 09-04-2024 MCHC (RBC) [Mass/Vol] 34.3 g/dL 32-36 [facility] Mean platelet volume determi nationOrdered By: Eulogio Acuña on 09-04-2024 Platelet mean volume (Bld) [Entitic vol] 8.6 fL 6.2-12.0 [facility] Microscopic analysis of urin e for red blood cells (RBC)Ordered By: Eulogio Acuña on 09-04-2024 Microscopic analysis of urine for red blood cells (RBC) 0-5 SEEN /hpf 0-5 [facility] Urine RBC 0-5 SEEN /hpf 0-5 [facility] Monocyte percentageOrdered B y: Eulogio Acuña on 09-04-2024 Monocytes/100 WBC (Bld) 5.8 % 0-10 [facility] Mucus LM Ql (Urine sed)Order ed By: Eulogio Acuña on 09-04-2024 Mucus Ql (Urine sed) 0 SEEN /hpf [facility] Neutrophil percentageOrdered By: Eulogio Acuña on 09-04-2024 Neutrophils/100 WBC (Bld) 44.1 % Low 47-70 [facility] Nitrite Test strip Ql (U)Ord ered By: Eulogio Acuña on 09-04-2024 Nitrite Ql (U) Negative Negative [facility] Nucleated red blood cell per centageOrdered By: Eulogio Acuña on 09-04-2024 Nucleated RBC/100 WBC (Bld) [Ratio] 0 % 0-5 [facility] Platelet countOrdered By: Scott Acuña on 09-04-2024 Platelets (Bld) [#/Vol] 324 10*3/uL 150-450 [facility] Potassium (Unsp spec) [Mass/ Vol]Ordered By: Eulogio Acuña on 09-04-2024 Potassium [Moles/Vol] 4.1 mmol/L 3.3-5.1 [facility] Potassium measurement (mass/ volume)Ordered By: Eulogio Acuña on 09-04-2024 Potassium (Unsp spec) [Mass/Vol] 4.1 mmol/L 3.3-5.1 [facility] Protein Test strip Ql (U)Ord ered By: Eulogio Acuña on 09-04-2024 Protein Ql (U) 15 mg/dl High Negative [facility] RBC Auto (Bld) [#/Vol]Ordere d By: Eulogio Acuña on 09-04-2024 RBC (Bld) [#/Vol] 4.10 10*6/uL Low 4.2-5.4 [facility] Serum creatinine measurement (mass/volume)Ordered By: Eulogio Acuña on 09-04-2024 Creatinine [Mass/Vol] 1.00 mg/dL 0.70-1.20 [facility] Serum globulin measurementOr dered By: Eulogio Acuña on 09-04-2024 Globulin (S) [Mass/Vol] 3.0 g/dL 2.2-4.2 [facility] Serum glucose measurement (m ass/volume)Ordered By: Eulogio Acuña on 09-04-2024 Glucose [Mass/Vol] 92 mg/dL 70-99 [facility] Serum or plasma alanine irwin otransferase (ALT) measurementOrdered By: Eulogio Acuña on 09-04-2024 ALT [Catalytic activity/Vol] 47 U/L High <35 [facility] Serum or plasma albumin marianna urement (mass/volume)Ordered By: Eulogio Acuña on 09-04-2024 Albumin [Mass/Vol] 4.2 g/dL 3.5-5.0 [facility] Serum or plasma albumin/glob ulin mass ratioOrdered By: Eulogio Acuña on 09-04-2024 Albumin/Globulin [Mass ratio] 1.4 {ratio} 0.9-2.4 [facility] Serum or plasma alkaline caity sphatase measurementOrdered By: Eulogio Acuña on 09-04-2024 ALP [Catalytic activity/Vol] 86 U/L 35-104 [facility] Serum or plasma calcium marianna urement (mass/volume)Ordered By: Eulogio Acuña on 09-04-2024 Calcium [Mass/Vol] 9.2 mg/dL 7.6-11.0 [facility] [facility] Serum or plasma urea nitroge n measurement (mass/volume)Ordered By: Eulogio Acuña on 09-04-2024 Urea nitrogen [Mass/Vol] 16 mg/dL 4-19 [facility] Sodium levelOrdered By: Eulogio Acuña on 09-04-2024 Sodium [Moles/Vol] 139 mmol/L 133-145 [facility] Squamous epithelial cells de tection in urine sediment by light microscopyOrdered By: Eulogio Acuña on 09-04-2024 Epithelial cells.squamous LM Ql (Urine sed) 5-10 SEEN /hpf 5-10 [facility] Total proteinOrdered By: Reanna Acuña on 09-04-2024 Protein [Mass/Vol] 7.3 g/dL 5.9-8.4 [facility] Urinalysis, Completeon 09-04 BACTERIA 1+ /hpf Normal None Seen [facility] Comment on above: Order Comment: CLEAN CATCH Performed By: #### L 400.0001, M100.678 ####[facility] [address] [place], [address] EPI,SQUAMOUS 5-10 SEEN Normal 5-10 [facility] Comment on above: Order Comment: CLEAN CATCH Performed By: #### L 400.0001, M100.678 ####[facility] [address] [place], [address] RBC 0-5 SEEN Normal 0-5 [facility] Comment on above: Order Comment: CLEAN CATCH Performed By: #### L 400.0001, M100.678 ####[facility] [address] [place], [address] WBC 0-5 SEEN Normal 0-5 [facility] Comment on above: Order Comment: CLEAN CATCH Performed By: #### L 400.0001, M100.678 ####[facility] [address] [place], [address] Mucus Ql (Urine sed) 0 SEEN Normal [facility] Comment on above: Order Comment: CLEAN CATCH Performed By: #### L 400.0001, M100.678 ####[facility] [address] [place], [address] Urine blood detectionOrdered By: Eulogio Acuña on 09-04-2024 Urine Occult Blood Negative Negative [facility] Urine clarityOrdered By: Reanna Acuña on 09-04-2024 Clarity (U) Clear Clear [facility] Urine color determinationOrd ered By: Eulogio Acuña on 09-04-2024 Color (U) Yellow Yellow [facility] Urine glucose detectionOrder ed By: Eulogio Acuña on 09-04-2024 Glucose Ql (U) Normal mg/dl Normal [facility] Urine leukocyte esterase det ection by dipstickOrdered By: Eulogio Acuña on 09-04-2024 Leukocyte esterase Test strip Ql (U) Negative Negative [facility] Urine pHOrdered By: Eulogio dennison on 09-04-2024 pH (U) 6.0 [pH] 5.0 - 8.0 [facility] Urine sediment bacteria coun t by microscopy (number/high power field)Ordered By: Eulogio Acuña on 09-04-2024 Bacteria LM.HPF (Urine sed) [#/Area] 1 /[HPF] None Seen [facility] Urine specific gravity measu rementOrdered By: Eulogio Acuña on 09-04-2024 Specific gravity (U) [Rel density] 1.020 1.002-1.030 [facility] Urine urobilinogen measureme ntOrdered By: Eulogio Acuña on 09-04-2024 Urobilinogen Ql (U) Normal mg/dl Normal [facility] Urobilinogen Ql (U)Ordered B y: Eulogio Acuña on 09-04-2024 Urine Urobilinogen Normal mg/dl Normal [facility] White blood cell (WBC) count Ordered By: Eulogio Acuña on 09-04-2024 WBC (Bld) [#/Vol] 6.7 10*3/uL 4.4-11.0 [facility] White blood cell countOrdere d By: Eulogio Acuña on 09-04-2024 Urine WBC 0-5 SEEN /hpf 0-5 [facility] White blood cell count 0-5 SEEN /hpf 0-5 [facility] Lumbar Spine 2 or 3 Viewson 08-29-2024 Lumbar Spine 2 or 3 Views Normal [facility] Emergency Department Summary on 08-11-2024 Emergency Department Summary Normal [facility] Pelvic w/ Transvaginalon Pelvic w/ Transvaginal Normal [facility] Ankle min 3 Viewson 08-04-19 25 Ankle min 3 Views Normal [facility] Abdomen/Pelvis without Conto n 07-30-2024 Abdomen/Pelvis without Cont Normal [facility] Absolute lymphocyte countOrd ered By: Sumanth Coyne on 07-30-2024 Lymphocytes Auto (Unsp spec) [#/Vol] 2.92 10*3/uL 0.83-4.51 [facility] Absolute neutrophil countOrd ered By: Sumanth Coyne on 07-30-2024 Neutrophils (Bld) [#/Vol] 3.5 10*3/uL 2.0-7.7 [facility] Albumin to globulin ratioOrd ered By: Sumanth Coyne on 07-30-2024 Albumin/Globulin [Mass ratio] 1.1 {ratio} 0.9-2.4 [facility] Automated lymphocyte count a s percentage of total leukocytesOrdered By: Sumanth Coyne on 07-30-2024 Lymphocytes/100 WBC Auto (Unsp spec) 40.4 % 19-41 [facility] Basophil percentageOrdered B y: Sumanth Coyne on 07-30-2024 Basophils/100 WBC (Bld) 0.3 % 0-1 [facility] Beta HCG ( test) Ql Ordered By: Sumanth Coyne on 07-30-2024 Serum Test, Qualitative Negative [facility] Bilirubin Test strip Ql (U)O rdered By: Sumanth Coyne on 07-30-2024 Bilirubin Ql (U) Negative Negative [facility] Bilirubin, totalOrdered By: Sumanth Coyne on 07-30-2024 Bilirubin [Mass/Vol] 0.40 mg/dL 0.20-1.00 [facility] Comment on above: For patients on eltr ombopag therapy, use of Dimension [place] TBIL is not recommended. Blood urea nitrogen (BUN)/cr eatinine ratioOrdered By: Sumanth Coyne on 07-30-2024 Urea nitrogen/Creatinine [Mass ratio] 22.1 mg/mg High 10 [facility] CBC W/Diff, Automatedon 01- Absolute Lymph 2.92 X10 3/uL Normal 0.83-4.51 [facility] Comment on above: Performed By: #### L 700.6800, L100.0100, L500.4050 ####[facility] [address] [place], [address] Absolute Neut 3.5 X10 3/uL Normal 2.0-7.7 [facility] Comment on above: Performed By: #### L 700.6800, L100.0100, L500.4050 ####[facility] [address] [place], [address] Basophils/100 WBC (Bld) 0.3 % Normal 0-1 [facility] Comment on above: Performed By: #### L 700.6800, L100.0100, L500.4050 ####[facility] [address] [place], [address] Eosinophils/100 WBC (Bld) 3.0 % Normal 0-5 [facility] Comment on above: Performed By: #### L 700.6800, L100.0100, L500.4050 ####[facility] [address] [place], [address] Erythrocyte distribution width (RBC) [Ratio] 12.6 % Normal 11.6-14.6 [facility] Comment on above: Performed By: #### L 700.6800, L100.0100, L500.4050 ####[facility] [address] [place], [address] Hematocrit (Bld) [Volume fraction] 35.2 % Low 37-47 [facility] Comment on above: Performed By: #### L 700.6800, L100.0100, L500.4050 ####[facility] [address] [place], [address] Hemoglobin (Bld) [Mass/Vol] 12.0 g/dL Normal 12.0-15.0 [facility] Comment on above: Performed By: #### L 700.6800, L100.0100, L500.4050 ####[facility] [address] [place], [address] IG% 0.300 Normal 0.0-0.9 [facility] Comment on above: Result Comment: IG% - Immature Granulocytes (promyelocytes, myelocytes andmetamyelocytes) > 1% indicates that a LEFT SHIFT is Present. Performed By: #### L 700.6800, L100.0100, L500.4050 ####[facility] [address] [place], [address] Lymphocytes/100 WBC (Bld) 40.4 % Normal 19-41 [facility] Comment on above: Performed By: #### L 700.6800, L100.0100, L500.4050 ####[facility] [address] [place], [address] MCH (RBC) [Entitic mass] 30.8 pg Normal 27.0-32.0 [facility] Comment on above: Performed By: #### L 700.6800, L100.0100, L500.4050 ####[facility] [address] [place], [address] MCHC (RBC) [Mass/Vol] 34.1 g/dL Normal 32-36 [facility] Comment on above: Performed By: #### L 700.6800, L100.0100, L500.4050 ####[facility] [address] [place], [address] MCV (RBC) [Entitic vol] 90.5 fL Normal 81-99 [facility] Comment on above: Performed By: #### L 700.6800, L100.0100, L500.4050 ####[facility] [address] [place], [address] Monocytes/100 WBC (Bld) 7.1 % Normal 0-10 [facility] Comment on above: Performed By: #### L 700.6800, L100.0100, L500.4050 ####[facility] [address] [place], [address] Neutrophils/100 WBC (Bld) 48.9 % Normal 47-70 [facility] Comment on above: Performed By: #### L 700.6800, L100.0100, L500.4050 ####[facility] [address] [place], [address] Nucleated RBC (Bld) [#/Vol] 0 10*3/uL Normal 0-5 [facility] Comment on above: Performed By: #### L 700.6800, L100.0100, L500.4050 ####[facility] [address] [place], [address] Platelet mean volume (Bld) [Entitic vol] 8.8 fL Normal 6.2-12.0 [facility] Comment on above: Performed By: #### L 700.6800, L100.0100, L500.4050 ####[facility] [address] [place], [address] Platelets (Bld) [#/Vol] 307 10*3/uL Normal 150-450 [facility] Comment on above: Performed By: #### L 700.6800, L100.0100, L500.4050 ####[facility] [address] [place], [address] RBC (Bld) [#/Vol] 3.89 10*6/uL Low 4.2-5.4 [facility] Comment on above: Performed By: #### L 700.6800, L100.0100, L500.4050 ####[facility] [address] [place], [address] RDW SD 41.0 fl Normal 35.1-43.9 [facility] Comment on above: Performed By: #### L 700.6800, L100.0100, L500.4050 ####[facility] [address] [place], [address] WBC (Bld) [#/Vol] 7.2 10*3/uL Normal 4.4-11.0 [facility] Comment on above: Performed By: #### L 700.6800, L100.0100, L500.4050 ####[facility] [address] [place], [address] Carbon dioxide measurementOr dered By: Sumanth Coyne on 07-30-2024 CO2 [Moles/Vol] 28.0 mmol/L 21.0-32.0 [facility] Chloride measurementOrdered By: Sumanth Coyne on 07-30-2024 Chloride [Moles/Vol] 106 mmol/L 98-107 [facility] Comprehensive Metabolic Prof ilon 07-30-2024 Albumin [Mass/Vol] 3.9 g/dL Normal 3.2-5.0 [facility] Comment on above: Performed By: #### L 700.6800, L100.0100, L500.4050 ####[facility] [address] [place], [address] Albumin/Globulin [Mass ratio] 1.1 {ratio} Normal 0.9-2.4 [facility] Comment on above: Performed By: #### L 700.6800, L100.0100, L500.4050 ####[facility] [address] [place], [address] ALK P 79 U/L Normal 45-117 [facility] Comment on above: Performed By: #### L 700.6800, L100.0100, L500.4050 ####[facility] [address] [place], [address] ALT [Catalytic activity/Vol] 36 U/L Normal 13-56 [facility] Comment on above: Performed By: #### L 700.6800, L100.0100, L500.4050 ####[facility] [address] [place], [address] AST [Catalytic activity/Vol] 27 U/L Normal 15-37 [facility] Comment on above: Performed By: #### L 700.6800, L100.0100, L500.4050 ####[facility] [address] [place], [address] Bilirubin [Mass/Vol] 0.40 mg/dL Normal 0.20-1.00 [facility] Comment on above: Result Comment: For patients on eltrombopag therapy, use of Dimension [place] TBIL is not recommended. Performed By: #### L 700.6800, L100.0100, L500.4050 ####[facility] [address] [place], [address] BUN/CRE 22.1 RATIO High 10-20 [facility] Comment on above: Performed By: #### L 700.6800, L100.0100, L500.4050 ####[facility] [address] [place], [address] CA,Total 9.4 mg/dL Normal 8.5-10.1 [facility] Comment on above: Performed By: #### L 700.6800, L100.0100, L500.4050 ####[facility] [address] [place], [address] Chloride [Moles/Vol] 106 mmol/L Normal 98-107 [facility] Comment on above: Performed By: #### L 700.6800, L100.0100, L500.4050 ####[facility] [address] [place], [address] CO2 [Moles/Vol] 28.0 mmol/L Normal 21.0-32.0 [facility] Comment on above: Performed By: #### L 700.6800, L100.0100, L500.4050 ####[facility] [address] [place], [address] Creatinine [Mass/Vol] 1.04 mg/dL High 0.55-1.02 [facility] Comment on above: Result Comment: The validity of the calculated GFR GFRAA in patients over70 years has not been determined. Clinical correlation isessential. Performed By: #### L 700.6800, L100.0100, L500.4050 ####[facility] [address] [place], [address] ECRCL 68.28 ml/min Normal [facility] Comment on above: Performed By: #### L 700.6800, L100.0100, L500.4050 ####[facility] [address] [place], [address] EST GFR - AA 73 mL/min Normal >60 [facility] Comment on above: Result Comment: Afri can Maltese GFR Calc Performed By: #### L 700.6800, L100.0100, L500.4050 ####[facility] [address] [place], [address] GAP 5 Normal 5-15 [facility] Comment on above: Performed By: #### L 700.6800, L100.0100, L500.4050 ####[facility] [address] [place], [address] GFR/1.73 sq M.predicted among non-blacks MDRD (S/P/Bld) [Vol rate/Area] 60 mL/min/{1.73_m2} Normal >60 [facility] Comment on above: Result Comment: Non- GFR Calc Performed By: #### L 700.6800, L100.0100, L500.4050 ####[facility] [address] [place], [address] Globulin (S) [Mass/Vol] 3.7 g/dL Normal 2.2-4.2 [facility] Comment on above: Performed By: #### L 700.6800, L100.0100, L500.4050 ####[facility] [address] [place], [address] Glucose [Mass/Vol] 85 mg/dL Normal 74-106 [facility] Comment on above: Performed By: #### L 700.6800, L100.0100, L500.4050 ####[facility] [address] [place], [address] Potassium [Moles/Vol] 4.1 mmol/L Normal 3.5-5.1 [facility] Comment on above: Performed By: #### L 700.6800, L100.0100, L500.4050 ####[facility] [address] [place], [address] Sodium [Moles/Vol] 139 mmol/L Normal 136-145 [facility] Comment on above: Performed By: #### L 700.6800, L100.0100, L500.4050 ####[facility] [address] [place], [address] T PROT 7.6 g/dL Normal 6.4-8.2 [facility] Comment on above: Performed By: #### L 700.6800, L100.0100, L500.4050 ####[facility] [address] [place], [address] Urea nitrogen [Mass/Vol] 23 mg/dL High 7-18 [facility] Comment on above: Performed By: #### L 700.6800, L100.0100, L500.4050 ####[facility] [address] [place], [address] Emergency Department Summary on 07-30-2024 Emergency Department Summary Normal [facility] Eosinophil percentageOrdered By: Sumanth Coyne on 07-30-2024 Eosinophils/100 WBC (Bld) 3.0 % 0-5 [facility] Epithelial cells.squamous LM Ql (Urine sed)Ordered By: Sumanth Coyne on 07-30-2024 Epithelial cells.squamous LM.HPF (Urine sed) [#/Area] 0 /[HPF] 5-10 [facility] Erythrocyte distribution wid th ratioOrdered By: Sumanth Coyne on 07-30-2024 Erythrocyte distribution width (RBC) [Ratio] 12.6 % 11.6-14.6 [facility] Erythrocyte distribution wid th standard deviationOrdered By: Sumanth Coyne on 07-30-2024 Erythrocyte distribution width (RBC) [Entitic vol] 41.0 fL 35.1-43.9 [facility] Erythrocyte distribution width (RBC) [Ratio] 41.0 fl 35.1-43.9 [facility] Estimated glomerular filtrat ion rate (GFR) AmericanOrdered By: Sumanth Coyne on 07-30-2024 Estimated GFR (MDRD) Amer 73 mL/min >60 [facility] Comment on above: GFR Calc Estimation of creatinine jenny aranceOrdered By: Sumanth Coyne on 07-30-2024 Estimated Creatinine Clearance Calc 68.28 ml/min [facility] Glomerular filtration rate ( GFR) estimationOrdered By: Sumanth Coyne on 07-30-2024 Estimated GFR (MDRD) Non-Af Amer 60 mL/min >60 [facility] Comment on above: Non- GFR Calc GFR/1.73 sq M.predicted among non-blacks MDRD (S/P/Bld) [Vol rate/Area] 60 mL/min/{1.73_m2} >60 [facility] Comment on above: Non- GFR Calc Glucose Ql (U)Ordered By: Ruby Coyne on 07-30-2024 Urine Glucose (UA) Normal mg/dl Normal [facility] Glucose measurementOrdered B y: Sumanth Coyne on 07-30-2024 Glucose [Mass/Vol] 85 mg/dL 74-106 [facility] Hematocrit Auto (Bld) [Volum e fraction]Ordered By: Sumanth Coyne on 07-30-2024 Hematocrit (Bld) [Volume fraction] 35.2 % Low 37-47 [facility] Hemoglobin measurementOrdere d By: Sumanth Coyne on 07-30-2024 Hemoglobin (Bld) [Mass/Vol] 12.0 g/dL 12.0-15.0 [facility] Immature granulocytes/100 WB C Auto (Bld)Ordered By: Sumanth Coyne on 07-30-2024 Immature granulocytes/100 WBC (Bld) 0.300 % 0.0-0.9 [facility] Comment on above: IG% - Immature Granu locytes (promyelocytes, myelocytes and metamyelocytes) > 1% indicates that a LEFT SHIFT is Present. Ketones Test strip Ql (U)Ord ered By: Sumanth Coyne on 07-30-2024 Ketones Ql (U) Negative Negative [facility] Laboratory - Chemistry and C hemistry - challengeOrdered By: Sumanth Coyne on 07-30-2024 AST [Catalytic activity/Vol] 27 U/L 15-37 [facility] Lymphocytes Auto (Unsp spec) [#/Vol]Ordered By: Sumanth Coyne on 07-30-2024 Lymphocytes (Bld) [#/Vol] 2.92 10*3/uL 0.83-4.51 [facility] Lymphocytes/100 WBC Auto (Un sp spec)Ordered By: Sumanth Coyne on 07-30-2024 Lymphocytes/100 WBC (Bld) 40.4 % 19-41 [facility] MCV (mean corpuscular volume ) determinationOrdered By: Sumanth Coyne on 07-30-2024 MCV (RBC) [Entitic vol] 90.5 fL 81-99 [facility] Mean corpuscular hemoglobin (MCH) determinationOrdered By: Sumanth Coyne on 07-30-2024 MCH (RBC) [Entitic mass] 30.8 pg 27.0-32.0 [facility] Mean corpuscular hemoglobin concentration (MCHC) determinationOrdered By: Sumanth Coyne on 07-30-2024 MCHC (RBC) [Mass/Vol] 34.1 g/dL 32-36 [facility] Mean platelet volume determi nationOrdered By: Sumanth Coyne on 07-30-2024 Platelet mean volume (Bld) [Entitic vol] 8.8 fL 6.2-12.0 [facility] Microscopic analysis of urin e for red blood cells (RBC)Ordered By: Sumanth Coyne on 07-30-2024 Microscopic analysis of urine for red blood cells (RBC) 0 SEEN /hpf 0-5 [facility] Urine RBC 0 SEEN /hpf 0-5 [facility] Monocyte percentageOrdered B y: Sumanth Coyne on 07-30-2024 Monocytes/100 WBC (Bld) 7.1 % 0-10 [facility] Mucus LM Ql (Urine sed)Order ed By: Sumanth Coyne on 07-30-2024 Mucus Ql (Urine sed) 0 SEEN /hpf [facility] Neutrophil percentageOrdered By: Sumanth Coyne on 07-30-2024 Neutrophils/100 WBC (Bld) 48.9 % 47-70 [facility] Nitrite Test strip Ql (U)Ord ered By: Sumanth Coyne on 07-30-2024 Nitrite Ql (U) Negative Negative [facility] Nucleated red blood cell per centageOrdered By: Sumanth Coyne on 07-30-2024 Nucleated RBC/100 WBC (Bld) [Ratio] 0 % 0-5 [facility] Platelet countOrdered By: Ruby Coyne on 07-30-2024 Platelets (Bld) [#/Vol] 307 10*3/uL 150-450 [facility] Potassium measurementOrdered By: Sumanth Coyne on 07-30-2024 Potassium [Moles/Vol] 4.1 mmol/L 3.5-5.1 [facility] ,Serum,hCG Quali.on 07-30-2024 HCG, SERUM QUAL Negative Normal [facility] Comment on above: Performed By: #### L 700.6800, L100.0100, L500.4050 ####[facility] [address] [place], [place], [id number] Protein Test strip Ql (U)Ord ered By: Sumanth Coyne on 07-30-2024 Protein Ql (U) 15 mg/dl High Negative [facility] RBC Auto (Bld) [#/Vol]Ordere d By: Sumanth Coyne on 07-30-2024 RBC (Bld) [#/Vol] 3.89 10*6/uL Low 4.2-5.4 [facility] Serum anion gap measurementO rdered By: Sumanth Coyne on 07-30-2024 Anion gap [Moles/Vol] 5 mmol/L 5-15 [facility] Serum beta-hCG test, qualita tiveOrdered By: Sumanth Coyne on 07-30-2024 Beta HCG ( test) Ql Negative [facility] Serum globulin measurementOr dered By: Sumanth Coyne on 07-30-2024 Globulin (S) [Mass/Vol] 3.7 g/dL 2.2-4.2 [facility] Serum or plasma alanine irwin otransferase (ALT) measurementOrdered By: Sumanth Coyne on 07-30-2024 ALT [Catalytic activity/Vol] 36 U/L 13-56 [facility] Serum or plasma albumin marianna urement (mass/volume)Ordered By: Sumanth Coyne on 07-30-2024 Albumin [Mass/Vol] 3.9 g/dL 3.2-5.0 [facility] Serum or plasma alkaline caity sphatase measurementOrdered By: Sumanth Coyne on 07-30-2024 ALP [Catalytic activity/Vol] 79 U/L 45-117 [facility] Serum or plasma calcium marianna urement (mass/volume)Ordered By: Sumanth Coyne on 07-30-2024 Calcium [Mass/Vol] 9.4 mg/dL 8.5-10.1 [facility] Serum or plasma creatinine m easurement (mass/volume)Ordered By: Sumanth Coyne on 07-30-2024 Creatinine [Mass/Vol] 1.04 mg/dL High 0.55-1.02 [facility] Comment on above: The validity of the calculated GFR & GFRAA in patients over 70 years has not been determined. Clinical correlation is essential. Serum or plasma urea nitroge n measurement (mass/volume)Ordered By: Sumanth Coyne on 07-30-2024 Urea nitrogen [Mass/Vol] 23 mg/dL High 7-18 [facility] Sodium levelOrdered By: Sumanth Coyne on 07-30-2024 Sodium [Moles/Vol] 139 mmol/L 136-145 [facility] Squamous epithelial cells de tection in urine sediment by light microscopyOrdered By: Sumanth Coyne on 07-30-2024 Epithelial cells.squamous LM Ql (Urine sed) 0-5 SEEN /hpf 5-10 [facility] Total proteinOrdered By: Sugar Coyne on 07-30-2024 Protein [Mass/Vol] 7.6 g/dL 6.4-8.2 [facility] Urinalysis, Completeon 07-30 BACTERIA 1+ /hpf Normal None Seen [facility] Comment on above: Order Comment: LIZZIE CTOR TO SPECIFY Performed By: #### L 400.0001 ####[facility] [address] [place], [address] EPI,SQUAMOUS 0-5 SEEN Normal 5-10 [facility] Comment on above: Order Comment: LIZZIE CTOR TO SPECIFY Performed By: #### L 400.0001 ####[facility] [address] [place], [address] WBC 0-5 SEEN Normal 0-5 [facility] Comment on above: Order Comment: LIZZIE CTOR TO SPECIFY Performed By: #### L 400.0001 ####[facility] [address] [place], [address] Mucus Ql (Urine sed) 0 SEEN Normal [facility] Comment on above: Order Comment: LIZZIE CTOR TO SPECIFY Performed By: #### L 400.0001 ####[facility] [address] [place], [address] RBC 0 SEEN Normal 0-5 [facility] Comment on above: Order Comment: LIZZIE CTOR TO SPECIFY Performed By: #### L 400.0001 ####[facility] [address] [place], [address] Urine blood detectionOrdered By: Sumanth Coyne on 07-30-2024 Urine Occult Blood Negative Negative [facility] Urine clarityOrdered By: Sugar Coyne on 07-30-2024 Clarity (U) Clear Clear [facility] Urine color determinationOrd ered By: Sumanth Coyne on 07-30-2024 Color (U) Yellow Yellow [facility] Urine glucose detectionOrder ed By: Sumanth Coyne on 07-30-2024 Glucose Ql (U) Normal mg/dl Normal [facility] Urine leukocyte esterase det ection by dipstickOrdered By: Sumanth Coyne on 07-30-2024 Leukocyte esterase Test strip Ql (U) 25 /ul High Negative [facility] Urine pHOrdered By: Sumanth lambert on 07-30-2024 pH (U) 5.0 [pH] 5.0 - 8.0 [facility] Urine sediment bacteria coun t by microscopy (number/high power field)Ordered By: Sumanth Coyne on 07-30-2024 Bacteria LM.HPF (Urine sed) [#/Area] 1 /[HPF] None Seen [facility] Urine specific gravity measu rementOrdered By: Sumanth Coyne on 07-30-2024 Specific gravity (U) [Rel density] 1.020 1.002-1.030 [facility] Urine urobilinogen measureme ntOrdered By: Sumanth Coyne on 07-30-2024 Urobilinogen Ql (U) Normal mg/dl Normal [facility] Urobilinogen Ql (U)Ordered B y: Sumanth Coyne on 07-30-2024 Urine Urobilinogen Normal mg/dl Normal [facility] White blood cell (WBC) count Ordered By: Sumanth Coyne on 07-30-2024 WBC (Bld) [#/Vol] 7.2 10*3/uL 4.4-11.0 [facility] White blood cell countOrdere d By: Sumanth Coyne on 07-30-2024 Urine WBC 0-5 SEEN /hpf 0-5 [facility] White blood cell count 0-5 SEEN /hpf 0-5 [facility] CNOVon 07-18-2024 CNOV Office Visit (UCWSTR ) DAMARI RIOS ([id number]) 1975 F Date Time Provider Department 07/18/24 2:30 PM ARNULFO SANCHEZ [facility] During your visit today, we recorded the following information about you: Temperature Pulse Respiration Blood pressure 97.6 degrees 63/minute 18/minute 139/90 Weight 85.7 kg Arnulfo Sanchez, CHEMIST STEROIDS.SOUND RECORDIST 07/18/2024 2:44 PM Signed CC: Patient presents with: Cough: Congestion, R ear pain, PACHECO, ST x1 week HPI: Damari Rios is a 48 year old female who presents to the office with complaint of head congestion, cough, nonproductive, and sore throat for a week. Symptoms are staying the same. Associated symptoms includes ear pain. Denies nausea, vomiting , and diarrhea. Treatments tried include nothing so far. with no relief of symptoms. Sick contacts: unknown. History of asthma, frequent episodes of bronchitis, chronic bronchitis, bronchiectasis or COPD: No Smoker: No Seasonal/environmental allergies: No The ROS is otherwise negative. The patient's pmh, medications, allergies, and past visits are reviewed. PHYSICAL EXAM: BP 139/90 Pulse 63 Temp 36.4 ?C (97.6 ?F) Resp 18 Wt 85.7 kg (188 lb 15 oz) LMP 07/24/2016 (Approximate) SpO2 98% BMI 32.43 kg/m? General appearance: alert, cooperative, pleasant, in no acute distress Head: Normocephalic Eyes: EOM's intact, conjunctiva pink and moist, no icterus, sclera white, non-injected Ears: Right ear: External ear/canal- Normal, TM - erythema and bulging. Left ear: External ear/canal- Normal, TM - clear with good landmarks Oropharynx:moist without lesions, No erythema, exudates or tonsillar hypertrophy. Heart: Negative. RRR without obvious murmur, gallop, or rubs. No ectopy. Lungs: clear to auscultation, without rales or wheeze, good air exchange PAST MEDICAL HISTORY Diagnosis Date Abdominal pain Bipolar I disorder, most recent episode (or current) unspecified Calculus of bile duct without mention of cholecystitis, with obstruction Calf pain Gastric ulcer GERD (gastroesophageal reflux disease) HTN (hypertension) Hypokalemia Irritable bowel syndrome Kidney stone Known health problems: none 04/04/2021 Other and unspecified ovarian cyst Other cholecystitis Pulmonary embolism (HCC) Restless leg Seasonal allergies Temporomandibular joint disorders, unspecified Unspecified [...] LS SLING 2022 TONSILLECTOMY PRIMARY/SECONDARY Tonsillectomy ALLERGIES Bee Venom Protein (Honey Bee), Penicillins, Bactrim [Sulfamethoxazole-Trim ethoprim], Ultram [Tramadol Hcl], and Naprosyn [Naproxen] MEDICATIONS azithromycin (ZITHROMAX) 250 mg tablet Take 2 tablets by mouth once daily for 1 day, THEN 1 tablet once daily for 4 days. cyclobenzaprine (FLEXERIL) 5 mg tablet Take 5 mg by mouth three times a day. dicyclomine (BENTYL) 20 mg tablet Take 20 mg by mouth. EPINEPHrine (EPIPEN) 0.3 mg/0.3 mL auto-injector EPINEPHrine 0.3 mg/0.3 mL injection syringe Use as directed for bee sting 0 08/08/2019 Active HYDROcodone-acetaminop hen (NORCO) 5-325 mg per tablet EVERY 4 HOURS NEEDED as needed for Pain ondansetron orally disintegrating (ZOFRAN ODT) 4 mg disintegrating tablet EVERY 8 HOURS NEEDED as needed for Nausea predniSONE (DELTASONE) 10 mg tablet Take by mouth. rOPINIRole (REQUIP) 0.25 mg tablet AT BEDTIME NEEDED as needed for restless legs amLODIPine (NORVASC) 5 mg tablet Take 1 [...] Relation Age of Onset Hypertension Mother Breast (more content not included)... Normal [facility] Abdomen Single Viewon 2024 Abdomen Single View Normal [facility] Urine Cultureon 06-30-2024 URC Below infection leve l. Mixed Gram Positive Organisms Sibley Count 1000-10,000 MIXC Mixed contaminants. Submit a new specimen if indicated. Normal [facility] Comment on above: Performed By: #### M 100.2200 ####[facility] [address] [place], [place], [id number] Absolute neutrophil countOrd ered By: Anyi Disla on 06-28-2024 Neutrophils (Bld) [#/Vol] 2.8 10*3/uL 2.0-7.7 [facility] Basic Metabolic Profile (BMP )on 06-28-2024 BUN/CRE 12.3 RATIO Normal 10-20 [facility] Comment on above: Performed By: #### L 100.0100, L500.2500 ####[facility] [address] [place], [address] CA,Total 8.3 mg/dL Low 8.5-10.1 [facility] Comment on above: Performed By: #### L 100.0100, L500.2500 ####[facility] [address] [place], [address] Chloride [Moles/Vol] 107 mmol/L Normal 98-107 [facility] Comment on above: Performed By: #### L 100.0100, L500.2500 ####[facility] [address] [place], [address] CO2 [Moles/Vol] 29.0 mmol/L Normal 21.0-32.0 [facility] Comment on above: Performed By: #### L 100.0100, L500.2500 ####[facility] [address] [place], [address] Creatinine [Mass/Vol] 0.97 mg/dL Normal 0.55-1.02 [facility] Comment on above: Result Comment: The validity of the calculated GFR GFRAA in patients over70 years has not been determined. Clinical correlation isessential. Performed By: #### L 100.0100, L500.2500 ####[facility] [address] [place], [address] ECRCL 75.38 ml/min Normal [facility] Comment on above: Performed By: #### L 100.0100, L500.2500 ####[facility] [address] [place], [address] EST GFR - AA 79 mL/min Normal >60 [facility] Comment on above: Result Comment: Afri can Maltese GFR Calc Performed By: #### L 100.0100, L500.2500 ####[facility] [address] [place], [address] GAP 3 Low 5-15 [facility] Comment on above: Performed By: #### L 100.0100, L500.2500 ####[facility] [address] [place], [address] GFR/1.73 sq M.predicted among non-blacks MDRD (S/P/Bld) [Vol rate/Area] 65 mL/min/{1.73_m2} Normal >60 [facility] Comment on above: Result Comment: Non- GFR Calc Performed By: #### L 100.0100, L500.2500 ####[facility] [address] [place], [address] Glucose [Mass/Vol] 108 mg/dL High 74-106 [facility] Comment on above: Result Comment: Fast ing Glucose result from 100 to 125 mg/dLsuggests IMPAIRED HOMEOSTASIS per A.D.A. criteria. Performed By: #### L 100.0100, L500.2500 ####[facility] [address] [place], [address] Potassium [Moles/Vol] 3.4 mmol/L Low 3.5-5.1 [facility] Comment on above: Performed By: #### L 100.0100, L500.2500 ####[facility] [address] [place], [address] Sodium [Moles/Vol] 139 mmol/L Normal 136-145 [facility] Comment on above: Performed By: #### L 100.0100, L500.2500 ####[facility] [address] [place], [address] Urea nitrogen [Mass/Vol] 12 mg/dL Normal 7-18 [facility] Comment on above: Performed By: #### L 100.0100, L500.2500 ####[facility] [address] [place], [address] Basophil percentageOrdered B y: Anyi Disla on 06-28-2024 Basophils/100 WBC (Bld) 0.5 % 0-1 [facility] Blood urea nitrogen (BUN)/cr eatinine ratioOrdered By: Anyi Disla on 06-28-2024 Urea nitrogen/Creatinine [Mass ratio] 12.3 mg/mg 10- [facility] CBC W/Diff, Automatedon 06-02 Absolute Lymph 2.96 X10 3/uL Normal 0.83-4.51 [facility] Comment on above: Performed By: #### L 100.0100, L500.2500 ####[facility] [address] [place], [address] Absolute Neut 2.8 X10 3/uL Normal 2.0-7.7 [facility] Comment on above: Performed By: #### L 100.0100, L500.2500 ####[facility] [address] [place], [address] Basophils/100 WBC (Bld) 0.5 % Normal 0-1 [facility] Comment on above: Performed By: #### L 100.0100, L500.2500 ####[facility] [address] [place], [address] Eosinophils/100 WBC (Bld) 3.2 % Normal 0-5 [facility] Comment on above: Performed By: #### L 100.0100, L500.2500 ####[facility] [address] [place], [address] Erythrocyte distribution width (RBC) [Ratio] 12.9 % Normal 11.6-14.6 [facility] Comment on above: Performed By: #### L 100.0100, L500.2500 ####[facility] [address] [place], [address] Hematocrit (Bld) [Volume fraction] 35.0 % Low 37-47 [facility] Comment on above: Performed By: #### L 100.0100, L500.2500 ####[facility] [address] [place], [address] Hemoglobin (Bld) [Mass/Vol] 11.5 g/dL Low 12.0-15.0 [facility] Comment on above: Performed By: #### L 100.0100, L500.2500 ####[facility] [address] [place], [address] IG% 0.200 Normal 0.0-0.9 [facility] Comment on above: Result Comment: IG% - Immature Granulocytes (promyelocytes, myelocytes andmetamyelocytes) > 1% indicates that a LEFT SHIFT is Present. Performed By: #### L 100.0100, L500.2500 ####[facility] [address] [place], [address] Lymphocytes/100 WBC (Bld) 45.7 % High 19-41 [facility] Comment on above: Performed By: #### L 100.0100, L500.2500 ####[facility] [address] [place], [address] MCH (RBC) [Entitic mass] 30.7 pg Normal 27.0-32.0 [facility] Comment on above: Performed By: #### L 100.0100, L500.2500 ####[facility] [address] [place], [address] MCHC (RBC) [Mass/Vol] 32.9 g/dL Normal 32-36 [facility] Comment on above: Performed By: #### L 100.0100, L500.2500 ####[facility] [address] [place], [address] MCV (RBC) [Entitic vol] 93.3 fL Normal 81-99 [facility] Comment on above: Performed By: #### L 100.0100, L500.2500 ####[facility] [address] [place], [address] Monocytes/100 WBC (Bld) 7.9 % Normal 0-10 [facility] Comment on above: Performed By: #### L 100.0100, L500.2500 ####[facility] [address] [place], [address] Neutrophils/100 WBC (Bld) 42.5 % Low 47-70 [facility] Comment on above: Performed By: #### L 100.0100, L500.2500 ####[facility] [address] [place], [address] Nucleated RBC (Bld) [#/Vol] 0 10*3/uL Normal 0-5 [facility] Comment on above: Performed By: #### L 100.0100, L500.2500 ####[facility] [address] [place], [address] Platelet mean volume (Bld) [Entitic vol] 8.7 fL Normal 6.2-12.0 [facility] Comment on above: Performed By: #### L 100.0100, L500.2500 ####[facility] [address] [place], [address] Platelets (Bld) [#/Vol] 317 10*3/uL Normal 150-450 [facility] Comment on above: Performed By: #### L 100.0100, L500.2500 ####[facility] [address] [place], [address] RBC (Bld) [#/Vol] 3.75 10*6/uL Low 4.2-5.4 [facility] Comment on above: Performed By: #### L 100.0100, L500.2500 ####[facility] [address] [place], [address] RDW SD 43.9 fl Normal 35.1-43.9 [facility] Comment on above: Performed By: #### L 100.0100, L500.2500 ####[facility] [address] [place], [address] WBC (Bld) [#/Vol] 6.5 10*3/uL Normal 4.4-11.0 [facility] Comment on above: Performed By: #### L 100.0100, L500.2500 ####[facility] [address] [place], [place], [id number] Carbon dioxide measurementOr dered By: Anyi Disla on 06-28-2024 CO2 [Moles/Vol] 29.0 mmol/L 21.0-32.0 [facility] Chloride measurementOrdered By: Anyi Disla on 06-28-2024 Chloride [Moles/Vol] 107 mmol/L 98-107 [facility] Discharge Instructionon 06-02 Discharge Instruction Normal [facility] Eosinophil percentageOrdered By: Anyi Disla on 06-28-2024 Eosinophils/100 WBC (Bld) 3.2 % 0-5 [facility] Erythrocyte distribution wid th ratioOrdered By: Anyi Disla on 06-28-2024 Erythrocyte distribution width (RBC) [Ratio] 12.9 % 11.6-14.6 [facility] Erythrocyte distribution wid th standard deviationOrdered By: Anyi Disla on 06-28-2024 Erythrocyte distribution width (RBC) [Entitic vol] 43.9 fL 35.1-43.9 [facility] Estimated glomerular filtrat ion rate (GFR) AmericanOrdered By: Anyi Disla on 06-28-2024 Estimated GFR (MDRD) Amer 79 mL/min >60 [facility] Comment on above: GFR Calc Estimation of creatinine jenny aranceOrdered By: Anyi Disla on 06-28-2024 Estimated Creatinine Clearance Calc 75.38 ml/min [facility] Glomerular filtration rate ( GFR) estimationOrdered By: Anyi Disla on 06-28-2024 Estimated GFR (MDRD) Non-Af Amer 65 mL/min >60 [facility] Comment on above: Non- GFR Calc Glucose measurementOrdered B y: Anyi Disla on 06-28-2024 Glucose [Mass/Vol] 108 mg/dL High 74-106 [facility] Comment on above: Fasting Glucose resu lt from 100 to 125 mg/dL suggests IMPAIRED HOMEOSTASIS per A.D.A. criteria. Hematocrit Auto (Bld) [Volum e fraction]Ordered By: Anyi Disla on 06-28-2024 Hematocrit (Bld) [Volume fraction] 35.0 % Low 37-47 [facility] Hemoglobin measurementOrdere d By: Anyi Disla on 06-28-2024 Hemoglobin (Bld) [Mass/Vol] 11.5 g/dL Low 12.0-15.0 [facility] Immature granulocytes/100 WB C Auto (Bld)Ordered By: Anyi Disla on 06-28-2024 Immature granulocytes/100 WBC (Bld) 0.200 % 0.0-0.9 [facility] Comment on above: IG% - Immature Granu locytes (promyelocytes, myelocytes and metamyelocytes) > 1% indicates that a LEFT SHIFT is Present. Lymphocytes Auto (Unsp spec) [#/Vol]Ordered By: Anyi Disla on 06-28-2024 Lymphocytes (Bld) [#/Vol] 2.96 10*3/uL 0.83-4.51 [facility] Lymphocytes/100 WBC Auto (Un sp spec)Ordered By: Anyi Disla on 06-28-2024 Lymphocytes/100 WBC (Bld) 45.7 % High 19-41 [facility] MCV (mean corpuscular volume ) determinationOrdered By: Anyi Disla on 06-28-2024 MCV (RBC) [Entitic vol] 93.3 fL 81-99 [facility] Mean corpuscular hemoglobin (MCH) determinationOrdered By: Anyi Disla on 06-28-2024 MCH (RBC) [Entitic mass] 30.7 pg 27.0-32.0 [facility] Mean corpuscular hemoglobin concentration (MCHC) determinationOrdered By: Anyi Disla on 06-28-2024 MCHC (RBC) [Mass/Vol] 32.9 g/dL 32-36 [facility] Mean platelet volume determi nationOrdered By: Anyi Disla on 06-28-2024 Platelet mean volume (Bld) [Entitic vol] 8.7 fL 6.2-12.0 [facility] Monocyte percentageOrdered B y: Anyi Disla on 06-28-2024 Monocytes/100 WBC (Bld) 7.9 % 0-10 [facility] Neutrophil percentageOrdered By: Anyi Disla on 06-28-2024 Neutrophils/100 WBC (Bld) 42.5 % Low 47-70 [facility] Nucleated red blood cell per centageOrdered By: Anyi Disla on 06-28-2024 Nucleated RBC/100 WBC (Bld) [Ratio] 0 % 0-5 [facility] Platelet countOrdered By: Frederic Disla on 06-28-2024 Platelets (Bld) [#/Vol] 317 10*3/uL 150-450 [facility] Potassium measurementOrdered By: Anyi Disla on 06-28-2024 Potassium [Moles/Vol] 3.4 mmol/L Low 3.5-5.1 [facility] RBC Auto (Bld) [#/Vol]Ordere d By: Anyi Disla on 06-28-2024 RBC (Bld) [#/Vol] 3.75 10*6/uL Low 4.2-5.4 [facility] Serum anion gap measurementO rdered By: Anyi Disla on 06-28-2024 Anion gap [Moles/Vol] 3 mmol/L Low 5-15 [facility] Serum or plasma calcium marianna urement (mass/volume)Ordered By: Anyi Disla on 06-28-2024 Calcium [Mass/Vol] 8.3 mg/dL Low 8.5-10.1 [facility] Serum or plasma creatinine m easurement (mass/volume)Ordered By: Anyi Disla on 06-28-2024 Creatinine [Mass/Vol] 0.97 mg/dL 0.55-1.02 [facility] Comment on above: The validity of the calculated GFR & GFRAA in patients over 70 years has not been determined. Clinical correlation is essential. Serum or plasma urea nitroge n measurement (mass/volume)Ordered By: Anyi Disla on 06-28-2024 Urea nitrogen [Mass/Vol] 12 mg/dL 7-18 [facility] Sodium levelOrdered By: Itzel Disla on 06-28-2024 Sodium [Moles/Vol] 139 mmol/L 136-145 [facility] White blood cell (WBC) count Ordered By: Anyi Disla on 06-28-2024 WBC (Bld) [#/Vol] 6.5 10*3/uL 4.4-11.0 [facility] Abdomen/Pelvis without Conto n 06-27-2024 Abdomen/Pelvis without Cont Normal [facility] Albumin to globulin ratioOrd ered By: eJan Duran on 06-27-2024 Albumin/Globulin [Mass ratio] 0.9 {ratio} 0.9-2.4 [facility] Bilirubin Test strip Ql (U)O rdered By: Jean Duran on 06-27-2024 Bilirubin Ql (U) Negative Negative [facility] Bilirubin, totalOrdered By: Jean Duran on 06-27-2024 Bilirubin [Mass/Vol] 0.30 mg/dL 0.20-1.00 [facility] Comment on above: For patients on eltr ombopag therapy, use of Dimension [place] TBIL is not recommended. CBC W/Diff, Automatedon - Absolute Lymph 3.87 X10 3/uL Normal 0.83-4.51 [facility] Comment on above: Performed By: #### L 100.0100, L500.4050, L501.2450 ####[facility] [address] [place], [address] Absolute Neut 4.1 X10 3/uL Normal 2.0-7.7 [facility] Comment on above: Performed By: #### L 100.0100, L500.4050, L501.2450 ####[facility] [address] [place], [address] Basophils/100 WBC (Bld) 0.4 % Normal 0-1 [facility] Comment on above: Performed By: #### L 100.0100, L500.4050, L501.2450 ####[facility] [address] [place], [address] Eosinophils/100 WBC (Bld) 2.5 % Normal 0-5 [facility] Comment on above: Performed By: #### L 100.0100, L500.4050, L501.2450 ####[facility] [address] [place], [address] Erythrocyte distribution width (RBC) [Ratio] 12.8 % Normal 11.6-14.6 [facility] Comment on above: Performed By: #### L 100.0100, L500.4050, L501.2450 ####[facility] [address] [place], [address] Hematocrit (Bld) [Volume fraction] 37.0 % Normal 37-47 [facility] Comment on above: Performed By: #### L 100.0100, L500.4050, L501.2450 ####[facility] [address] [place], [address] Hemoglobin (Bld) [Mass/Vol] 12.6 g/dL Normal 12.0-15.0 [facility] Comment on above: Performed By: #### L 100.0100, L500.4050, L501.2450 ####[facility] [address] [place], [address] IG% 0.200 Normal 0.0-0.9 [facility] Comment on above: Result Comment: IG% - Immature Granulocytes (promyelocytes, myelocytes andmetamyelocytes) > 1% indicates that a LEFT SHIFT is Present. Performed By: #### L 100.0100, L500.4050, L501.2450 ####[facility] [address] [place], [address] Lymphocytes/100 WBC (Bld) 43.5 % High 19-41 [facility] Comment on above: Performed By: #### L 100.0100, L500.4050, L501.2450 ####[facility] [address] [place], [address] MCH (RBC) [Entitic mass] 31.0 pg Normal 27.0-32.0 [facility] Comment on above: Performed By: #### L 100.0100, L500.4050, L501.2450 ####[facility] [address] [place], [address] MCHC (RBC) [Mass/Vol] 34.1 g/dL Normal 32-36 [facility] Comment on above: Performed By: #### L 100.0100, L500.4050, L501.2450 ####[facility] [address] [place], [address] MCV (RBC) [Entitic vol] 90.9 fL Normal 81-99 [facility] Comment on above: Performed By: #### L 100.0100, L500.4050, L501.2450 ####[facility] [address] [place], [address] Monocytes/100 WBC (Bld) 7.8 % Normal 0-10 [facility] Comment on above: Performed By: #### L 100.0100, L500.4050, L501.2450 ####[facility] [address] [place], [address] Neutrophils/100 WBC (Bld) 45.6 % Low 47-70 [facility] Comment on above: Performed By: #### L 100.0100, L500.4050, L501.2450 ####[facility] [address] [place], [address] Nucleated RBC (Bld) [#/Vol] 0 10*3/uL Normal 0-5 [facility] Comment on above: Performed By: #### L 100.0100, L500.4050, L501.2450 ####[facility] [address] [place], [address] Platelet mean volume (Bld) [Entitic vol] 8.7 fL Normal 6.2-12.0 [facility] Comment on above: Performed By: #### L 100.0100, L500.4050, L501.2450 ####[facility] [address] [place], [address] Platelets (Bld) [#/Vol] 376 10*3/uL Normal 150-450 [facility] Comment on above: Performed By: #### L 100.0100, L500.4050, L501.2450 ####[facility] [address] [place], [address] RBC (Bld) [#/Vol] 4.07 10*6/uL Low 4.2-5.4 [facility] Comment on above: Performed By: #### L 100.0100, L500.4050, L501.2450 ####[facility] [address] [place], [address] RDW SD 41.9 fl Normal 35.1-43.9 [facility] Comment on above: Performed By: #### L 100.0100, L500.4050, L501.2450 ####[facility] [address] [place], [address] WBC (Bld) [#/Vol] 8.9 10*3/uL Normal 4.4-11.0 [facility] Comment on above: Performed By: #### L 100.0100, L500.4050, L501.2450 ####[facility] [address] [place], [address] Comprehensive Metabolic Prof ilon 06-27-2024 Albumin [Mass/Vol] 3.5 g/dL Normal 3.2-5.0 [facility] Comment on above: Performed By: #### L 100.0100, L500.4050, L501.2450 ####[facility] [address] [place], [address] Albumin/Globulin [Mass ratio] 0.9 {ratio} Normal 0.9-2.4 [facility] Comment on above: Performed By: #### L 100.0100, L500.4050, L501.2450 ####[facility] [address] [place], [address] ALK P 81 U/L Normal 45-117 [facility] Comment on above: Performed By: #### L 100.0100, L500.4050, L501.2450 ####[facility] [address] [place], [address] ALT [Catalytic activity/Vol] 35 U/L Normal 13-56 [facility] Comment on above: Performed By: #### L 100.0100, L500.4050, L501.2450 ####[facility] [address] [place], [address] AST [Catalytic activity/Vol] 24 U/L Normal 15-37 [facility] Comment on above: Performed By: #### L 100.0100, L500.4050, L501.2450 ####[facility] [address] [place], [address] Bilirubin [Mass/Vol] 0.30 mg/dL Normal 0.20-1.00 [facility] Comment on above: Result Comment: For patients on eltrombopag therapy, use of Dimension [place] TBIL is not recommended. Performed By: #### L 100.0100, L500.4050, L501.2450 ####[facility] [address] [place], [address] BUN/CRE 16.8 RATIO Normal 10-20 [facility] Comment on above: Performed By: #### L 100.0100, L500.4050, L501.2450 ####[facility] [address] [place], [address] CA,Total 9.1 mg/dL Normal 8.5-10.1 [facility] Comment on above: Performed By: #### L 100.0100, L500.4050, L501.2450 ####[facility] [address] [place], [address] Chloride [Moles/Vol] 110 mmol/L High 98-107 [facility] Comment on above: Performed By: #### L 100.0100, L500.4050, L501.2450 ####[facility] [address] [place], [address] CO2 [Moles/Vol] 26.0 mmol/L Normal 21.0-32.0 [facility] Comment on above: Performed By: #### L 100.0100, L500.4050, L501.2450 ####[facility] [address] [place], [address] Creatinine [Mass/Vol] 1.01 mg/dL Normal 0.55-1.02 [facility] Comment on above: Result Comment: The validity of the calculated GFR GFRAA in patients over70 years has not been determined. Clinical correlation isessential. Performed By: #### L 100.0100, L500.4050, L501.2450 ####[facility] [address] [place], [address] ECRCL 72.48 ml/min Normal [facility] Comment on above: Performed By: #### L 100.0100, L500.4050, L501.2450 ####[facility] [address] [place], [address] EST GFR - AA 75 mL/min Normal >60 [facility] Comment on above: Result Comment: Afri can Maltese GFR Calc Performed By: #### L 100.0100, L500.4050, L501.2450 ####[facility] [address] [place], [address] GAP 6 Normal 5-15 [facility] Comment on above: Performed By: #### L 100.0100, L500.4050, L501.2450 ####[facility] [address] [place], [address] GFR/1.73 sq M.predicted among non-blacks MDRD (S/P/Bld) [Vol rate/Area] 62 mL/min/{1.73_m2} Normal >60 [facility] Comment on above: Result Comment: Non- GFR Calc Performed By: #### L 100.0100, L500.4050, L501.2450 ####[facility] [address] [place], [address] Globulin (S) [Mass/Vol] 3.9 g/dL Normal 2.2-4.2 [facility] Comment on above: Performed By: #### L 100.0100, L500.4050, L501.2450 ####[facility] [address] [place], [address] Glucose [Mass/Vol] 117 mg/dL High 74-106 [facility] Comment on above: Result Comment: Fast ing Glucose result from 100 to 125 mg/dLsuggests IMPAIRED HOMEOSTASIS per A.D.A. criteria. Performed By: #### L 100.0100, L500.4050, L501.2450 ####[facility] [address] [place], [address] Potassium [Moles/Vol] 3.2 mmol/L Low 3.5-5.1 [facility] Comment on above: Performed By: #### L 100.0100, L500.4050, L501.2450 ####[facility] [address] [place], [address] Sodium [Moles/Vol] 142 mmol/L Normal 136-145 [facility] Comment on above: Performed By: #### L 100.0100, L500.4050, L501.2450 ####[facility] [address] [place], [address] T PROT 7.4 g/dL Normal 6.4-8.2 [facility] Comment on above: Performed By: #### L 100.0100, L500.4050, L501.2450 ####[facility] [address] [place], [address] Urea nitrogen [Mass/Vol] 17 mg/dL Normal 7-18 [facility] Comment on above: Performed By: #### L 100.0100, L500.4050, L501.2450 ####[facility] [address] [place], [address] Emergency Department Summary on 06-27-2024 Emergency Department Summary Normal [facility] Epithelial cells.squamous LM Ql (Urine sed)Ordered By: Jean Duran on 06-27-2024 Epithelial cells.squamous LM.HPF (Urine sed) [#/Area] 5 /[HPF] 5-10 [facility] Glucose Ql (U)Ordered By: Hussein Duran on 06-27-2024 Urine Glucose (UA) Normal mg/dl Normal [facility] Ketones Test strip Ql (U)Ord ered By: Jean Duran on 06-27-2024 Ketones Ql (U) 5 mg/dl High Negative [facility] Laboratory - Chemistry and C hemistry - challengeOrdered By: Jean Duran on 06-27-2024 AST [Catalytic activity/Vol] 24 U/L 15-37 [facility] Lipaseon 06-27-2024 Lipase [Catalytic activity/Vol] 69 U/L Normal 13-75 [facility] Comment on above: Result Comment: Arcadio de la paz note:LIPASE revised reference range effective 22.New Lipase methodology. Expected to produce lower valuesthan the previous assay method.NEW Reference Range: 13 - 75 U/L Performed By: #### L 100.0100, L500.4050, L501.2450 ####[facility] [address] [place], [address] Lipase measurementOrdered By : Jean Duran on 06-27-2024 Lipase [Catalytic activity/Vol] 69 U/L -75 [facility] Comment on above: Please note:LIPASE r evised reference range effective 22. New Lipase methodology. Expected to produce lower values than the previous assay method. NEW Reference Range: 13 - 75 U/L Microscopic analysis of urin e for red blood cells (RBC)Ordered By: Jean Duran on 06-27-2024 Urine RBC > 100 SEEN /hpf 0-5 [facility] Mucus LM Ql (Urine sed)Order ed By: Jean Duran on 06-27-2024 Mucus Ql (Urine sed) 1+ /hpf [facility] Nitrite Test strip Ql (U)Ord ered By: Jean Duran on 06-27-2024 Nitrite Ql (U) Positive High Negative [facility] Protein Test strip Ql (U)Ord ered By: Jean Duran on 06-27-2024 Protein Ql (U) 100 mg/dl High Negative [facility] Serum globulin measurementOr dered By: Jean Duran on 06-27-2024 Globulin (S) [Mass/Vol] 3.9 g/dL 2.2-4.2 [facility] Serum or plasma alanine irwin otransferase (ALT) measurementOrdered By: Jean Duran on 06-27-2024 ALT [Catalytic activity/Vol] 35 U/L 13-56 [facility] Serum or plasma albumin marianna urement (mass/volume)Ordered By: Jean Duran on 06-27-2024 Albumin [Mass/Vol] 3.5 g/dL 3.2-5.0 [facility] Serum or plasma alkaline caity sphatase measurementOrdered By: Jean Duran on 06-27-2024 ALP [Catalytic activity/Vol] 81 U/L 45-117 [facility] Total proteinOrdered By: Stefania Duran on 06-27-2024 Protein [Mass/Vol] 7.4 g/dL 6.4-8.2 [facility] Urinalysis, Completeon 06-27 BACTERIA 1+ /hpf Normal None Seen [facility] Comment on above: Order Comment: COLOR OF URINE MAY AFFECT DIPSTICK RESULTS.PLASTER FOREMAN TO SPECIFY Performed By: #### L 400.0001 ####[facility] [address] [place], [address] Mucus Ql (Urine sed) 1+ /hpf Normal [facility] Comment on above: Order Comment: COLOR OF URINE MAY AFFECT DIPSTICK RESULTS.PLASTER FOREMAN TO SPECIFY Performed By: #### L 400.0001 ####[facility] [address] [place], [address] EPI,SQUAMOUS 5-10 SEEN Normal 5-10 [facility] Comment on above: Order Comment: COLOR OF URINE MAY AFFECT DIPSTICK RESULTS.PLASTER FOREMAN TO SPECIFY Performed By: #### L 400.0001 ####[facility] [address] [place], [address] RBC > 100 SEEN Normal 0-5 [facility] Comment on above: Order Comment: COLOR OF URINE MAY AFFECT DIPSTICK RESULTS.PLASTER FOREMAN TO SPECIFY Performed By: #### L 400.0001 ####[facility] [address] [place], [address] WBC 50-100 SEEN Normal 0-5 [facility] Comment on above: Order Comment: COLOR OF URINE MAY AFFECT DIPSTICK RESULTS.PLASTER FOREMAN TO SPECIFY Performed By: #### L 400.0001 ####[facility] [address] [place], [address] BILIRUBIN URINE Negative Normal Negative [facility] Comment on above: Order Comment: COLOR OF URINE MAY AFFECT DIPSTICK RESULTS.PLASTER FOREMAN TO SPECIFY Performed By: #### L 400.0001 ####[facility] [address] [place], [address] Clarity (U) Cloudy Normal Clear [facility] Comment on above: Order Comment: COLOR OF URINE MAY AFFECT DIPSTICK RESULTS.PLASTER FOREMAN TO SPECIFY Performed By: #### L 400.0001 ####[facility] [address] [place] [address] Color (U) Red Normal Yellow [facility] Comment on above: Order Comment: COLOR OF URINE MAY AFFECT DIPSTICK RESULTS.PLASTER FOREMAN TO SPECIFY Performed By: #### L 400.0001 ####[facility] [address] [place] [address] GLUCOSE, UR Normal Normal Normal [facility] Comment on above: Order Comment: COLOR OF URINE MAY AFFECT DIPSTICK RESULTS.PLASTER FOREMAN TO SPECIFY Performed By: #### L 400.0001 ####[facility] [address] [place] [address] KETONE UR 5 mg/dl Abnormal Negative [facility] Comment on above: Order Comment: COLOR OF URINE MAY AFFECT DIPSTICK RESULTS.PLASTER FOREMAN TO SPECIFY Performed By: #### L 400.0001 ####[facility] [address] [place] [address] LEUK ESTERASE 100 /ul Abnormal Negative [facility] Comment on above: Order Comment: COLOR OF URINE MAY AFFECT DIPSTICK RESULTS.PLASTER FOREMAN TO SPECIFY Performed By: #### L 400.0001 ####[facility] [address] [place] [address] Nitrite Ql (U) Positive Abnormal Negative [facility] Comment on above: Order Comment: COLOR OF URINE MAY AFFECT DIPSTICK RESULTS.PLASTER FOREMAN TO SPECIFY Performed By: #### L 400.0001 ####[facility] [address] [place] [address] OCCULT BLOOD-UR 250 /ul Abnormal Negative [facility] Comment on above: Order Comment: COLOR OF URINE MAY AFFECT DIPSTICK RESULTS.PLASTER FOREMAN TO SPECIFY Performed By: #### L 400.0001 ####[facility] [address] [place] [address] pH UR 6.5 Normal 5.0 - 8.0 [facility] Comment on above: Order Comment: COLOR OF URINE MAY AFFECT DIPSTICK RESULTS.PLASTER FOREMAN TO SPECIFY Performed By: #### L 400.0001 ####[facility] [address] [place], [address] PROT DIPSTX 100 mg/dl Abnormal Negative [facility] Comment on above: Order Comment: COLOR OF URINE MAY AFFECT DIPSTICK RESULTS.PLASTER FOREMAN TO SPECIFY Performed By: #### L 400.0001 ####[facility] [address] [place], [address] SP.GR. DIPSTX 1.015 Normal 1.002-1.030 [facility] Comment on above: Order Comment: COLOR OF URINE MAY AFFECT DIPSTICK RESULTS.PLASTER FOREMAN TO SPECIFY Performed By: #### L 400.0001 ####[facility] [address] [place], [address] UROBILI 1 mg/dl Abnormal Normal [facility] Comment on above: Order Comment: COLOR OF URINE MAY AFFECT DIPSTICK RESULTS.PLASTER FOREMAN TO SPECIFY Performed By: #### L 400.0001 ####[facility] [address] [place], [address] Urine blood detectionOrdered By: Jean Duran on 06-27-2024 Urine Occult Blood 250 /ul High Negative [facility] Urine clarityOrdered By: Stefania Duran on 06-27-2024 Clarity (U) Cloudy Clear [facility] Urine color determinationOrd ered By: Jean Duran on 06-27-2024 Color (U) Red Yellow [facility] Urine cultureOrdered By: Aníbal Sykes on 06-27-2024 Bacteria identified Cx Nom (U) Positive Abnormal [facility] Bacteria identified Cx Nom (U) Positive Abnormal [facility] Urine leukocyte esterase det ection by dipstickOrdered By: Jean Duran on 06-27-2024 Leukocyte esterase Test strip Ql (U) 100 /ul High Negative [facility] Urine pHOrdered By: Jean barahona on 06-27-2024 pH (U) 6.5 [pH] 5.0 - 8.0 [facility] Urine sediment bacteria coun t by microscopy (number/high power field)Ordered By: Jean Duran on 06-27-2024 Bacteria LM.HPF (Urine sed) [#/Area] 1 /[HPF] None Seen [facility] Urine specific gravity measu rementOrdered By: Jean Duran on 06-27-2024 Specific gravity (U) [Rel density] 1.015 1.002-1.030 [facility] Urobilinogen Ql (U)Ordered B y: Jean Duran on 06-27-2024 Urobilinogen (U) [Mass/Vol] 1 mg/dL High Normal [facility] White blood cell countOrdere d By: Jean Duran on 06-27-2024 Urine WBC 50-100 SEEN /hpf 0-5 [facility] MR/KOCXEXTW3fj 06-20-2024 MR/POSTOPAN2 Normal [facility] Discharge Instructionon 06-01 Discharge Instruction Normal [facility] MR/PAT.ANEon 06-19-2024 MR/PAT.ANE Normal [facility] MR/POSTOP.ANEon 06-19-2024 MR/POSTOP.ANE Normal [facility] Operative Reporton Operative Report Normal [facility] MR/PAT.ANEon 06-18-2024 MR/PAT.ANE Normal [facility] Absolute neutrophil countOrd ered By: Miguel Martinez on 06-09-2024 Neutrophils (Bld) [#/Vol] 3.5 10*3/uL 2.0-7.7 [facility] Basic Metabolic Profile (BMP )on 06-09-2024 BUN/CRE 19.6 RATIO Normal - [facility] Comment on above: Performed By: #### L 500.2500 ####[facility] [address] [place], [place], [address] CA,Total 8.8 mg/dL Normal 8.5-10.1 [facility] Comment on above: Performed By: #### L 500.2500 ####[facility] [address] [place], [address] Chloride [Moles/Vol] 109 mmol/L High 98-107 [facility] Comment on above: Performed By: #### L 500.2500 ####[facility] [address] [place], [address] CO2 [Moles/Vol] 26.0 mmol/L Normal 21.0-32.0 [facility] Comment on above: Performed By: #### L 500.2500 ####[facility] [address] [place], [address] Creatinine [Mass/Vol] 0.87 mg/dL Normal 0.55-1.02 [facility] Comment on above: Result Comment: The validity of the calculated GFR GFRAA in patients over70 years has not been determined. Clinical correlation isessential. Performed By: #### L 500.2500 ####[facility] [address] [place], [address] ECRCL 84.60 ml/min Normal [facility] Comment on above: Performed By: #### L 500.2500 ####[facility] [address] [place], [address] EST GFR - AA 90 mL/min Normal >60 [facility] Comment on above: Result Comment: Afri can Maltese GFR Calc Performed By: #### L 500.2500 ####[facility] [address] [place], [address] GAP 3 Low 5-15 [facility] Comment on above: Performed By: #### L 500.2500 ####[facility] [address] [place], [address] GFR/1.73 sq M.predicted among non-blacks MDRD (S/P/Bld) [Vol rate/Area] 74 mL/min/{1.73_m2} Normal >60 [facility] Comment on above: Result Comment: Non- GFR Calc Performed By: #### L 500.2500 ####[facility] [address] [place], [address] Glucose [Mass/Vol] 99 mg/dL Normal 74-106 [facility] Comment on above: Performed By: #### L 500.2500 ####[facility] [address] [place], [address] Potassium [Moles/Vol] 3.8 mmol/L Normal 3.5-5.1 [facility] Comment on above: Performed By: #### L 500.2500 ####[facility] [address] [place], [address] Sodium [Moles/Vol] 138 mmol/L Normal 136-145 [facility] Comment on above: Performed By: #### L 500.2500 ####[facility] [address] [place], [address] Urea nitrogen [Mass/Vol] 17 mg/dL Normal 7-18 [facility] Comment on above: Performed By: #### L 500.2500 ####[facility] [address] [place], [address] Basophil percentageOrdered B y: Miguel Martinez on 06-09-2024 Basophils/100 WBC (Bld) 0.3 % 0-1 [facility] Blood urea nitrogen (BUN)/cr eatinine ratioOrdered By: Miguel Martinez on 06-09-2024 Urea nitrogen/Creatinine [Mass ratio] 19.6 mg/mg 10-20 [facility] CBC W/Diff, Automatedon 12-0 Absolute Lymph 2.48 X10 3/uL Normal 0.83-4.51 [facility] Comment on above: Performed By: #### L 100.0100 ####[facility] [address] [place], [address] Absolute Neut 3.5 X10 3/uL Normal 2.0-7.7 [facility] Comment on above: Performed By: #### L 100.0100 ####[facility] [address] [place], [address] Basophils/100 WBC (Bld) 0.3 % Normal 0-1 [facility] Comment on above: Performed By: #### L 100.0100 ####[facility] [address] [place], [address] Eosinophils/100 WBC (Bld) 1.8 % Normal 0-5 [facility] Comment on above: Performed By: #### L 100.0100 ####[facility] [address] [place], [address] Erythrocyte distribution width (RBC) [Ratio] 12.8 % Normal 11.6-14.6 [facility] Comment on above: Performed By: #### L 100.0100 ####[facility] [address] [place], [address] Hematocrit (Bld) [Volume fraction] 35.1 % Low 37-47 [facility] Comment on above: Performed By: #### L 100.0100 ####[facility] [address] [place], [address] Hemoglobin (Bld) [Mass/Vol] 12.1 g/dL Normal 12.0-15.0 [facility] Comment on above: Performed By: #### L 100.0100 ####[facility] [address] [place], [address] IG% 0.300 Normal 0.0-0.9 [facility] Comment on above: Result Comment: IG% - Immature Granulocytes (promyelocytes, myelocytes andmetamyelocytes) > 1% indicates that a LEFT SHIFT is Present. Performed By: #### L 100.0100 ####[facility] [address] [place], [address] Lymphocytes/100 WBC (Bld) 37.8 % Normal 19-41 [facility] Comment on above: Performed By: #### L 100.0100 ####[facility] [address] [place], [address] MCH (RBC) [Entitic mass] 31.9 pg Normal 27.0-32.0 [facility] Comment on above: Performed By: #### L 100.0100 ####[facility] [address] [place], [address] MCHC (RBC) [Mass/Vol] 34.5 g/dL Normal 32-36 [facility] Comment on above: Performed By: #### L 100.0100 ####[facility] [address] [place], [address] MCV (RBC) [Entitic vol] 92.6 fL Normal 81-99 [facility] Comment on above: Performed By: #### L 100.0100 ####[facility] [address] [place], [address] Monocytes/100 WBC (Bld) 5.9 % Normal 0-10 [facility] Comment on above: Performed By: #### L 100.0100 ####[facility] [address] [place], [address] Neutrophils/100 WBC (Bld) 53.9 % Normal 47-70 [facility] Comment on above: Performed By: #### L 100.0100 ####[facility] [address] [place], [address] Nucleated RBC (Bld) [#/Vol] 0 10*3/uL Normal 0-5 [facility] Comment on above: Performed By: #### L 100.0100 ####[facility] [address] [place], [address] Platelet mean volume (Bld) [Entitic vol] 8.8 fL Normal 6.2-12.0 [facility] Comment on above: Performed By: #### L 100.0100 ####[facility] [address] [place], [address] Platelets (Bld) [#/Vol] 271 10*3/uL Normal 150-450 [facility] Comment on above: Performed By: #### L 100.0100 ####[facility] [address] [place], [address] RBC (Bld) [#/Vol] 3.79 10*6/uL Low 4.2-5.4 [facility] Comment on above: Performed By: #### L 100.0100 ####[facility] [address] [place], [address] RDW SD 43.4 fl Normal 35.1-43.9 [facility] Comment on above: Performed By: #### L 100.0100 ####[facility] [address] [place], [address] WBC (Bld) [#/Vol] 6.6 10*3/uL Normal 4.4-11.0 [facility] Comment on above: Performed By: #### L 100.0100 ####[facility] [address] [place], [address] Carbon dioxide measurementOr dered By: Miguel Martinez on 06-09-2024 CO2 [Moles/Vol] 26.0 mmol/L 21.0-32.0 [facility] Chloride measurementOrdered By: Miguel Martinez on 06-09-2024 Chloride [Moles/Vol] 109 mmol/L High 98-107 [facility] Discharge Instructionon 12 Discharge Instruction Normal [facility] Discharge Instruction Normal [facility] Eosinophil percentageOrdered By: Miguel Martinez on 06-09-2024 Eosinophils/100 WBC (Bld) 1.8 % 0-5 [facility] Erythrocyte distribution wid th ratioOrdered By: Miguel Martinez on 06-09-2024 Erythrocyte distribution width (RBC) [Ratio] 12.8 % 11.6-14.6 [facility] Erythrocyte distribution wid th standard deviationOrdered By: Miguel Martinez on 06-09-2024 Erythrocyte distribution width (RBC) [Entitic vol] 43.4 fL 35.1-43.9 [facility] Estimated glomerular filtrat ion rate (GFR) AmericanOrdered By: Miguel Martinez on 06-09-2024 Estimated GFR (MDRD) Amer 90 mL/min >60 [facility] Comment on above: GFR Calc Estimation of creatinine jenny aranceOrdered By: Miguel Martinez on 06-09-2024 Estimated Creatinine Clearance Calc 84.60 ml/min [facility] Glomerular filtration rate ( GFR) estimationOrdered By: Miguel Martinez on 06-09-2024 Estimated GFR (MDRD) Non-Af Amer 74 mL/min >60 [facility] Comment on above: Non- GFR Calc Glucose measurementOrdered B y: Miguel Martinez on 06-09-2024 Glucose [Mass/Vol] 99 mg/dL 74-106 [facility] Hematocrit Auto (Bld) [Volum e fraction]Ordered By: Miguel Martinez on 06-09-2024 Hematocrit (Bld) [Volume fraction] 35.1 % Low 37-47 [facility] Hemoglobin measurementOrdere d By: Miguel Martinez on 06-09-2024 Hemoglobin (Bld) [Mass/Vol] 12.1 g/dL 12.0-15.0 [facility] Immature granulocytes/100 WB C Auto (Bld)Ordered By: Miguel Martinez on 06-09-2024 Immature granulocytes/100 WBC (Bld) 0.300 % 0.0-0.9 [facility] Comment on above: IG% - Immature Granu locytes (promyelocytes, myelocytes and metamyelocytes) > 1% indicates that a LEFT SHIFT is Present. International normalized rat io (INR) calculationOrdered By: Miguel Martinez on 06-09-2024 INR Coag (Bld) [Relative time] 1.2 {INR} [facility] Lymphocytes Auto (Unsp spec) [#/Vol]Ordered By: Miguel Martinez on 06-09-2024 Lymphocytes (Bld) [#/Vol] 2.48 10*3/uL 0.83-4.51 [facility] Lymphocytes/100 WBC Auto (Un sp spec)Ordered By: Miguel Martinez on 06-09-2024 Lymphocytes/100 WBC (Bld) 37.8 % 19-41 [facility] MCV (mean corpuscular volume ) determinationOrdered By: Miguel Martinez on 06-09-2024 MCV (RBC) [Entitic vol] 92.6 fL 81-99 [facility] MR/POSTOP.ANEon 06-09-2024 MR/POSTOP.ANE Normal [facility] MR/[id number] 06-09-2024 MR/POSTOPAN2 Normal [facility] Mean corpuscular hemoglobin (MCH) determinationOrdered By: Miguel Martinez on 06-09-2024 MCH (RBC) [Entitic mass] 31.9 pg 27.0-32.0 [facility] Mean corpuscular hemoglobin concentration (MCHC) determinationOrdered By: Miguel Martinez on 06-09-2024 MCHC (RBC) [Mass/Vol] 34.5 g/dL 32-36 [facility] Mean platelet volume determi nationOrdered By: Miguel Martinez on 06-09-2024 Platelet mean volume (Bld) [Entitic vol] 8.8 fL 6.2-12.0 [facility] Monocyte percentageOrdered B y: Miguel Martinez on 06-09-2024 Monocytes/100 WBC (Bld) 5.9 % 0-10 [facility] Neutrophil percentageOrdered By: Miguel Martinez on 06-09-2024 Neutrophils/100 WBC (Bld) 53.9 % 47-70 [facility] Nucleated red blood cell per centageOrdered By: Miguel Martinez on 06-09-2024 Nucleated RBC/100 WBC (Bld) [Ratio] 0 % 0-5 [facility] Operative Reporton Operative Report Normal [facility] Partial Thromboplast Timeon 06-09-2024 aPTT Coag (Bld) [Time] 23.9 s Low 24.1-36.2 [facility] Comment on above: Performed By: #### L 487.5639, L324.1998 ####[facility] [address] [place], [place], [address] Platelet countOrdered By: Aba Martinez on 06-09-2024 Platelets (Bld) [#/Vol] 271 10*3/uL 150-450 [facility] Potassium measurementOrdered By: Miguel Martinez on 06-09-2024 Potassium [Moles/Vol] 3.8 mmol/L 3.5-5.1 [facility] Prothrombin Time w/INRon INR Coag (PPP) [Relative time] 1.2 {INR} Normal [facility] Comment on above: Performed By: #### L 300.3900, L300.4310 ####[facility] [address] [place], [address] PT Coag (PPP) [Time] 14.8 s Normal 11.7-14.9 [facility] Comment on above: Performed By: #### L 300.3900, L300.4310 ####[facility] [address] [place], [address] Prothrombin timeOrdered By: Miguel Martinez on 06-09-2024 PT Coag (PPP) [Time] 14.8 s 11.7-14.9 [facility] RBC Auto (Bld) [#/Vol]Ordere d By: Miguel Martinez on 06-09-2024 RBC (Bld) [#/Vol] 3.79 10*6/uL Low 4.2-5.4 [facility] Serum anion gap measurementO rdered By: Miguel Martinez on 06-09-2024 Anion gap [Moles/Vol] 3 mmol/L Low 5-15 [facility] Serum or plasma calcium marianna urement (mass/volume)Ordered By: Miguel Martinez on 06-09-2024 Calcium [Mass/Vol] 8.8 mg/dL 8.5-10.1 [facility] Serum or plasma creatinine m easurement (mass/volume)Ordered By: Miguel Martinez on 06-09-2024 Creatinine [Mass/Vol] 0.87 mg/dL 0.55-1.02 [facility] Comment on above: The validity of the calculated GFR & GFRAA in patients over 70 years has not been determined. Clinical correlation is essential. Serum or plasma urea nitroge n measurement (mass/volume)Ordered By: Miguel Martinez on 06-09-2024 Urea nitrogen [Mass/Vol] 17 mg/dL 7-18 [facility] Sodium levelOrdered By: Miguel Martinez on 06-09-2024 Sodium [Moles/Vol] 138 mmol/L 136-145 [facility] Urine Cultureon 06-09-2024 URC Below infection leve l. Presumptive E. coli Sibley Count 1000-10,000 Normal [facility] Comment on above: Performed By: #### M 100.2200 ####[facility] [address] [place], [place], [address] White blood cell (WBC) count Ordered By: Miguel Martinez on 06-09-2024 WBC (Bld) [#/Vol] 6.6 10*3/uL 4.4-11.0 [facility] aPTT Coag (PPP) [Time]Ordere d By: Miguel Martinez on 06-09-2024 aPTT Coag (Bld) [Time] 23.9 s Low 24.1-36.2 [facility] Abdomen/Pelvis without Conto n 06-07-2024 Abdomen/Pelvis without Cont Normal [facility] Albumin to globulin ratioOrd ered By: Jean Duran on 06-07-2024 Albumin/Globulin [Mass ratio] 1.1 {ratio} 0.9-2.4 [facility] Bilirubin Test strip Ql (U)O rdered By: Jean Duran on 06-07-2024 Bilirubin Ql (U) Negative Negative [facility] Bilirubin, totalOrdered By: Jean Duran on 06-07-2024 Bilirubin [Mass/Vol] 0.60 mg/dL 0.20-1.00 [facility] Comment on above: For patients on eltr ombopag therapy, use of Dimension [place] TBIL is not recommended. CBC W/Diff, Automatedon Absolute Lymph 3.19 X10 3/uL Normal 0.83-4.51 [facility] Comment on above: Performed By: #### L 100.0100, L500.4050, L501.2450 ####[facility] [address] [place], [address] Absolute Neut 4.2 X10 3/uL Normal 2.0-7.7 [facility] Comment on above: Performed By: #### L 100.0100, L500.4050, L501.2450 ####[facility] [address] [place], [address] Basophils/100 WBC (Bld) 0.4 % Normal 0-1 [facility] Comment on above: Performed By: #### L 100.0100, L500.4050, L501.2450 ####[facility] [address] [place], [address] Eosinophils/100 WBC (Bld) 2.0 % Normal 0-5 [facility] Comment on above: Performed By: #### L 100.0100, L500.4050, L501.2450 ####[facility] [address] [place], [address] Erythrocyte distribution width (RBC) [Ratio] 12.7 % Normal 11.6-14.6 [facility] Comment on above: Performed By: #### L 100.0100, L500.4050, L501.2450 ####[facility] [address] [place], [address] Hematocrit (Bld) [Volume fraction] 38.5 % Normal 37-47 [facility] Comment on above: Performed By: #### L 100.0100, L500.4050, L501.2450 ####[facility] [address] [place], [address] Hemoglobin (Bld) [Mass/Vol] 13.0 g/dL Normal 12.0-15.0 [facility] Comment on above: Performed By: #### L 100.0100, L500.4050, L501.2450 ####[facility] [address] [place], [address] IG% 0.200 Normal 0.0-0.9 [facility] Comment on above: Result Comment: IG% - Immature Granulocytes (promyelocytes, myelocytes andmetamyelocytes) > 1% indicates that a LEFT SHIFT is Present. Performed By: #### L 100.0100, L500.4050, L501.2450 ####[facility] [address] [place], [address] Lymphocytes/100 WBC (Bld) 39.6 % Normal 19-41 [facility] Comment on above: Performed By: #### L 100.0100, L500.4050, L501.2450 ####[facility] [address] [place], [address] MCH (RBC) [Entitic mass] 31.3 pg Normal 27.0-32.0 [facility] Comment on above: Performed By: #### L 100.0100, L500.4050, L501.2450 ####[facility] [address] [place], [address] MCHC (RBC) [Mass/Vol] 33.8 g/dL Normal 32-36 [facility] Comment on above: Performed By: #### L 100.0100, L500.4050, L501.2450 ####[facility] [address] [place], [address] MCV (RBC) [Entitic vol] 92.8 fL Normal 81-99 [facility] Comment on above: Performed By: #### L 100.0100, L500.4050, L501.2450 ####[facility] [address] [place], [address] Monocytes/100 WBC (Bld) 6.0 % Normal 0-10 [facility] Comment on above: Performed By: #### L 100.0100, L500.4050, L501.2450 ####[facility] [address] [place], [address] Neutrophils/100 WBC (Bld) 51.8 % Normal 47-70 [facility] Comment on above: Performed By: #### L 100.0100, L500.4050, L501.2450 ####[facility] [address] [place], [address] Nucleated RBC (Bld) [#/Vol] 0 10*3/uL Normal 0-5 [facility] Comment on above: Performed By: #### L 100.0100, L500.4050, L501.2450 ####[facility] [address] [place], [address] Platelet mean volume (Bld) [Entitic vol] 8.7 fL Normal 6.2-12.0 [facility] Comment on above: Performed By: #### L 100.0100, L500.4050, L501.2450 ####[facility] [address] [place], [address] Platelets (Bld) [#/Vol] 314 10*3/uL Normal 150-450 [facility] Comment on above: Performed By: #### L 100.0100, L500.4050, L501.2450 ####[facility] [address] [place], [address] RBC (Bld) [#/Vol] 4.15 10*6/uL Low 4.2-5.4 [facility] Comment on above: Performed By: #### L 100.0100, L500.4050, L501.2450 ####[facility] [address] [place], [address] RDW SD 43.2 fl Normal 35.1-43.9 [facility] Comment on above: Performed By: #### L 100.0100, L500.4050, L501.2450 ####[facility] [address] [place], [address] WBC (Bld) [#/Vol] 8.1 10*3/uL Normal 4.4-11.0 [facility] Comment on above: Performed By: #### L 100.0100, L500.4050, L501.2450 ####[facility] [address] [place], [address] Comprehensive Metabolic Prof ilon 06-07-2024 Albumin [Mass/Vol] 3.9 g/dL Normal 3.2-5.0 [facility] Comment on above: Performed By: #### L 100.0100, L500.4050, L501.2450 ####[facility] [address] [place], [address] Albumin/Globulin [Mass ratio] 1.1 {ratio} Normal 0.9-2.4 [facility] Comment on above: Performed By: #### L 100.0100, L500.4050, L501.2450 ####[facility] [address] [place], [address] ALK P 68 U/L Normal 45-117 [facility] Comment on above: Performed By: #### L 100.0100, L500.4050, L501.2450 ####[facility] [address] [place], [address] ALT [Catalytic activity/Vol] 25 U/L Normal 13-56 [facility] Comment on above: Performed By: #### L 100.0100, L500.4050, L501.2450 ####[facility] [address] [place], [address] AST [Catalytic activity/Vol] 20 U/L Normal 15-37 [facility] Comment on above: Performed By: #### L 100.0100, L500.4050, L501.2450 ####[facility] [address] [place], [address] Bilirubin [Mass/Vol] 0.60 mg/dL Normal 0.20-1.00 [facility] Comment on above: Result Comment: For patients on eltrombopag therapy, use of Dimension [place] TBIL is not recommended. Performed By: #### L 100.0100, L500.4050, L501.2450 ####[facility] [address] [place], [address] BUN/CRE 18.4 RATIO Normal 10-20 [facility] Comment on above: Performed By: #### L 100.0100, L500.4050, L501.2450 ####[facility] [address] [place], [address] CA,Total 8.7 mg/dL Normal 8.5-10.1 [facility] Comment on above: Performed By: #### L 100.0100, L500.4050, L501.2450 ####[facility] [address] [place], [address] Chloride [Moles/Vol] 104 mmol/L Normal 98-107 [facility] Comment on above: Performed By: #### L 100.0100, L500.4050, L501.2450 ####[facility] [address] [place], [address] CO2 [Moles/Vol] 28.0 mmol/L Normal 21.0-32.0 [facility] Comment on above: Performed By: #### L 100.0100, L500.4050, L501.2450 ####[facility] [address] [place], [address] Creatinine [Mass/Vol] 0.87 mg/dL Normal 0.55-1.02 [facility] Comment on above: Result Comment: The validity of the calculated GFR GFRAA in patients over70 years has not been determined. Clinical correlation isessential. Performed By: #### L 100.0100, L500.4050, L501.2450 ####[facility] [address] [place], [address] ECRCL 84.49 ml/min Normal [facility] Comment on above: Performed By: #### L 100.0100, L500.4050, L501.2450 ####[facility] [address] [place], [address] EST GFR - AA 90 mL/min Normal >60 [facility] Comment on above: Result Comment: Afri can Maltese GFR Calc Performed By: #### L 100.0100, L500.4050, L501.2450 ####[facility] [address] [place], [address] GAP 6 Normal 5-15 [facility] Comment on above: Performed By: #### L 100.0100, L500.4050, L501.2450 ####[facility] [address] [place], [address] GFR/1.73 sq M.predicted among non-blacks MDRD (S/P/Bld) [Vol rate/Area] 74 mL/min/{1.73_m2} Normal >60 [facility] Comment on above: Result Comment: Non- GFR Calc Performed By: #### L 100.0100, L500.4050, L501.2450 ####[facility] [address] [place], [address] Globulin (S) [Mass/Vol] 3.7 g/dL Normal 2.2-4.2 [facility] Comment on above: Performed By: #### L 100.0100, L500.4050, L501.2450 ####[facility] [address] [place], [address] Glucose [Mass/Vol] 86 mg/dL Normal 74-106 [facility] Comment on above: Performed By: #### L 100.0100, L500.4050, L501.2450 ####[facility] [address] [place], [address] Potassium [Moles/Vol] 3.3 mmol/L Low 3.5-5.1 [facility] Comment on above: Performed By: #### L 100.0100, L500.4050, L501.2450 ####[facility] [address] [place], [address] Sodium [Moles/Vol] 138 mmol/L Normal 136-145 [facility] Comment on above: Performed By: #### L 100.0100, L500.4050, L501.2450 ####[facility] [address] [place], [address] T PROT 7.6 g/dL Normal 6.4-8.2 [facility] Comment on above: Performed By: #### L 100.0100, L500.4050, L501.2450 ####[facility] [address] [place], [address] Urea nitrogen [Mass/Vol] 16 mg/dL Normal 7-18 [facility] Comment on above: Performed By: #### L 100.0100, L500.4050, L501.2450 ####[facility] [address] [place], [address] Emergency Department Summary on 06-07-2024 Emergency Department Summary Normal [facility] Epithelial cells.squamous LM Ql (Urine sed)Ordered By: Jean Duran on 06-07-2024 Epithelial cells.squamous LM.HPF (Urine sed) [#/Area] 0 /[HPF] 5-10 [facility] Glucose Ql (U)Ordered By: Hussein Duran on 06-07-2024 Urine Glucose (UA) Normal mg/dl Normal [facility] Ketones Test strip Ql (U)Ord ered By: Jean Duran on 06-07-2024 Ketones Ql (U) Negative Negative [facility] Laboratory - Chemistry and C hemistry - challengeOrdered By: Jean Duran on 06-07-2024 AST [Catalytic activity/Vol] 20 U/L 15-37 [facility] Lipaseon 06-07-2024 Lipase [Catalytic activity/Vol] 34 U/L Normal 13-75 [facility] Comment on above: Result Comment: Arcadio de la paz note:LIPASE revised reference range effective 22.New Lipase methodology. Expected to produce lower valuesthan the previous assay method.NEW Reference Range: 13 - 75 U/L Performed By: #### L 100.0100, L500.4050, L501.2450 ####[facility] [address] [place], [address] Lipase measurementOrdered By : Jean Duran on 06-07-2024 Lipase [Catalytic activity/Vol] 34 U/L 13-75 [facility] Comment on above: Please note:LIPASE r evised reference range effective 22. New Lipase methodology. Expected to produce lower values than the previous assay method. NEW Reference Range: 13 - 75 U/L Microscopic analysis of urin e for red blood cells (RBC)Ordered By: Jean Duran on 06-07-2024 Urine RBC > 100 SEEN /hpf 0-5 [facility] Mucus LM Ql (Urine sed)Order ed By: Jean Duran on 06-07-2024 Mucus Ql (Urine sed) 0 SEEN /hpf [facility] Nitrite Test strip Ql (U)Ord ered By: Jean Duran on 06-07-2024 Nitrite Ql (U) Negative Negative [facility] Protein Test strip Ql (U)Ord ered By: Jean Duran on 06-07-2024 Protein Ql (U) 30 mg/dl High Negative [facility] Serum globulin measurementOr dered By: Jean Duran on 06-07-2024 Globulin (S) [Mass/Vol] 3.7 g/dL 2.2-4.2 [facility] Serum or plasma alanine irwin otransferase (ALT) measurementOrdered By: Jean Duran on 06-07-2024 ALT [Catalytic activity/Vol] 25 U/L 13-56 [facility] Serum or plasma albumin marianna urement (mass/volume)Ordered By: Jean Duran on 06-07-2024 Albumin [Mass/Vol] 3.9 g/dL 3.2-5.0 [facility] Serum or plasma alkaline caity sphatase measurementOrdered By: Jean Duran on 06-07-2024 ALP [Catalytic activity/Vol] 68 U/L 45-117 [facility] Total proteinOrdered By: Stefania Duran on 06-07-2024 Protein [Mass/Vol] 7.6 g/dL 6.4-8.2 [facility] Urinalysis, Completeon 06-07 BACTERIA 1+ /hpf Normal None Seen [facility] Comment on above: Order Comment: COLOR OF URINE MAY AFFECT DIPSTICK RESULTS.CLEAN CATCH Performed By: #### L 400.0001 ####[facility] [address] [place], [address] EPI,SQUAMOUS 0-5 SEEN Normal 5-10 [facility] Comment on above: Order Comment: COLOR OF URINE MAY AFFECT DIPSTICK RESULTS.CLEAN CATCH Performed By: #### L 400.0001 ####[facility] [address] [place], [address] RBC > 100 SEEN Normal 0-5 [facility] Comment on above: Order Comment: COLOR OF URINE MAY AFFECT DIPSTICK RESULTS.CLEAN CATCH Performed By: #### L 400.0001 ####[facility] [address] [place], [address] WBC 0-5 SEEN Normal 0-5 [facility] Comment on above: Order Comment: COLOR OF URINE MAY AFFECT DIPSTICK RESULTS.CLEAN CATCH Performed By: #### L 400.0001 ####[facility] [address] [place], [address] Mucus Ql (Urine sed) 0 SEEN Normal [facility] Comment on above: Order Comment: COLOR OF URINE MAY AFFECT DIPSTICK RESULTS.CLEAN CATCH Performed By: #### L 400.0001 ####[facility] [address] [place], [address] Urine blood detectionOrdered By: Jean Duran on 06-07-2024 Urine Occult Blood 250 /ul High Negative [facility] Urine clarityOrdered By: Stefania Duran on 06-07-2024 Clarity (U) Sl. Cloudy Clear [facility] Urine color determinationOrd ered By: Jean Duran on 06-07-2024 Color (U) Red Yellow [facility] Urine cultureOrdered By: Stefania Duran on 06-07-2024 Bacteria identified Cx Nom (U) Presumptive E. coli Abnormal [facility] Urine leukocyte esterase det ection by dipstickOrdered By: Jean Duran on 06-07-2024 Leukocyte esterase Test strip Ql (U) 25 /ul High Negative [facility] Urine pHOrdered By: Jean barahona on 06-07-2024 pH (U) 6.5 [pH] 5.0 - 8.0 [facility] Urine sediment bacteria coun t by microscopy (number/high power field)Ordered By: Jean Duran on 06-07-2024 Bacteria LM.HPF (Urine sed) [#/Area] 1 /[HPF] None Seen [facility] Urine specific gravity measu rementOrdered By: Jean Duran on 06-07-2024 Specific gravity (U) [Rel density] 1.010 1.002-1.030 [facility] Urobilinogen Ql (U)Ordered B y: Jean Duran on 06-07-2024 Urine Urobilinogen Normal mg/dl Normal [facility] White blood cell countOrdere d By: Jean Duran on 06-07-2024 Urine WBC 0-5 SEEN /hpf 0-5 [facility] Pelvic w/ Transvaginalon Pelvic w/ Transvaginal Normal [facility] 12 Lead EKGon 05-09-2024 12 Lead EKG Normal [facility] Basic Metabolic Profile (BMP )on 05-09-2024 BUN/CRE 10.3 RATIO Normal 10-20 [facility] Comment on above: Order Comment: 'TROP ' Serial specimen #1, #2 or #3: 1 Performed By: #### L 501.4020, L500.2500, L500.3400, L501.2450 ####[facility] [address] [place], [address] CA,Total 8.3 mg/dL Low 8.5-10.1 [facility] Comment on above: Order Comment: 'TROP ' Serial specimen #1, #2 or #3: 1 Performed By: #### L 501.4020, L500.2500, L500.3400, L501.2450 ####[facility] [address] [place], [address] Chloride [Moles/Vol] 109 mmol/L High 98-107 [facility] Comment on above: Order Comment: 'TROP ' Serial specimen #1, #2 or #3: 1 Performed By: #### L 501.4020, L500.2500, L500.3400, L501.2450 ####[facility] [address] [place], [address] CO2 [Moles/Vol] 24.0 mmol/L Normal 21.0-32.0 [facility] Comment on above: Order Comment: 'TROP ' Serial specimen #1, #2 or #3: 1 Performed By: #### L 501.4020, L500.2500, L500.3400, L501.2450 ####[facility] [address] [place], [address] Creatinine [Mass/Vol] 0.88 mg/dL Normal 0.55-1.02 [facility] Comment on above: Order Comment: 'TROP ' Serial specimen #1, #2 or #3: 1 Result Comment: The validity of the calculated GFR GFRAA in patients over70 years has not been determined. Clinical correlation isessential. Performed By: #### L 501.4020, L500.2500, L500.3400, L501.2450 ####[facility] [address] [place], [address] ECRCL 84.32 ml/min Normal [facility] Comment on above: Order Comment: 'TROP ' Serial specimen #1, #2 or #3: 1 Performed By: #### L 501.4020, L500.2500, L500.3400, L501.2450 ####[facility] [address] [place], [address] EST GFR - AA 89 mL/min Normal >60 [facility] Comment on above: Order Comment: 'TROP ' Serial specimen #1, #2 or #3: 1 Result Comment: Afri can Maltese GFR Calc Performed By: #### L 501.4020, L500.2500, L500.3400, L501.2450 ####[facility] [address] [place], [address] GAP 5 Normal 5-15 [facility] Comment on above: Order Comment: 'TROP ' Serial specimen #1, #2 or #3: 1 Performed By: #### L 501.4020, L500.2500, L500.3400, L501.2450 ####[facility] [address] [place], [address] GFR/1.73 sq M.predicted among non-blacks MDRD (S/P/Bld) [Vol rate/Area] 73 mL/min/{1.73_m2} Normal >60 [facility] Comment on above: Order Comment: 'TROP ' Serial specimen #1, #2 or #3: 1 Result Comment: Non- GFR Calc Performed By: #### L 501.4020, L500.2500, L500.3400, L501.2450 ####[facility] [address] [place], [address] Glucose [Mass/Vol] 88 mg/dL Normal 74-106 [facility] Comment on above: Order Comment: 'TROP ' Serial specimen #1, #2 or #3: 1 Performed By: #### L 501.4020, L500.2500, L500.3400, L501.2450 ####[facility] [address] [place], [address] Potassium [Moles/Vol] 3.5 mmol/L Normal 3.5-5.1 [facility] Comment on above: Order Comment: 'TROP ' Serial specimen #1, #2 or #3: 1 Performed By: #### L 501.4020, L500.2500, L500.3400, L501.2450 ####[facility] [address] [place], [address] Sodium [Moles/Vol] 139 mmol/L Normal 136-145 [facility] Comment on above: Order Comment: 'TROP ' Serial specimen #1, #2 or #3: 1 Performed By: #### L 501.4020, L500.2500, L500.3400, L501.2450 ####[facility] [address] [place], [address] Urea nitrogen [Mass/Vol] 9 mg/dL Normal 7-18 [facility] Comment on above: Order Comment: 'TROP ' Serial specimen #1, #2 or #3: 1 Performed By: #### L 501.4020, L500.2500, L500.3400, L501.2450 ####[facility] [address] [place], [address] Bilirubin directOrdered By: Albert Sykes on 05-09-2024 Bilirubin.direct [Mass/Vol] 0.08 mg/dL 0.00-0.30 [facility] Bilirubin, totalOrdered By: Albert Sykes on 05-09-2024 Bilirubin [Mass/Vol] 0.30 mg/dL 0.20-1.00 [facility] Comment on above: For patients on eltr ombopag therapy, use of Dimension [place] TBIL is not recommended. Blood urea nitrogen (BUN)/cr eatinine ratioOrdered By: Albert Sykes on 05-09-2024 Urea nitrogen/Creatinine [Mass ratio] 10.3 mg/mg 10-20 [facility] CBC-Complete Blood Cnt No Di ffon 05-09-2024 Erythrocyte distribution width (RBC) [Ratio] 12.9 % Normal 11.6-14.6 [facility] Comment on above: Performed By: #### L 100.0500 ####[facility] [address] [place], [address] Hematocrit (Bld) [Volume fraction] 38.8 % Normal 37-47 [facility] Comment on above: Performed By: #### L 100.0500 ####[facility] [address] [place], [address] Hemoglobin (Bld) [Mass/Vol] 13.0 g/dL Normal 12.0-15.0 [facility] Comment on above: Performed By: #### L 100.0500 ####[facility] [address] [place], [address] MCH (RBC) [Entitic mass] 30.8 pg Normal 27.0-32.0 [facility] Comment on above: Performed By: #### L 100.0500 ####[facility] [address] [place], [address] MCHC (RBC) [Mass/Vol] 33.5 g/dL Normal 32-36 [facility] Comment on above: Performed By: #### L 100.0500 ####[facility] [address] [place], [address] MCV (RBC) [Entitic vol] 91.9 fL Normal 81-99 [facility] Comment on above: Performed By: #### L 100.0500 ####[facility] [address] [place], [address] Platelet mean volume (Bld) [Entitic vol] 8.5 fL Normal 6.2-12.0 [facility] Comment on above: Performed By: #### L 100.0500 ####[facility] [address] [place], [address] Platelets (Bld) [#/Vol] 305 10*3/uL Normal 150-450 [facility] Comment on above: Performed By: #### L 100.0500 ####[facility] [address] [place], [address] RBC (Bld) [#/Vol] 4.22 10*6/uL Normal 4.2-5.4 [facility] Comment on above: Performed By: #### L 100.0500 ####[facility] [address] [place], [address] RDW SD 43.3 fl Normal 35.1-43.9 [facility] Comment on above: Performed By: #### L 100.0500 ####[facility] [address] [place], [address] WBC (Bld) [#/Vol] 7.0 10*3/uL Normal 4.4-11.0 [facility] Comment on above: Performed By: #### L 100.0500 ####[facility] [address] [place], [address] CTA Chest W/WO Contraston CTA Chest W/WO Contrast Normal [facility] Carbon dioxide measurementOr dered By: Albert Sykes on 05-09-2024 CO2 [Moles/Vol] 24.0 mmol/L 21.0-32.0 [facility] Chloride measurementOrdered By: Albert Sykes on 05-09-2024 Chloride [Moles/Vol] 109 mmol/L High 98-107 [facility] Emergency Department Summary on 05-09-2024 Emergency Department Summary Normal [facility] Erythrocyte distribution wid th ratioOrdered By: Albert Sykes on 05-09-2024 Erythrocyte distribution width (RBC) [Ratio] 12.9 % 11.6-14.6 [facility] Erythrocyte distribution wid th standard deviationOrdered By: Albert Sykes on 05-09-2024 Erythrocyte distribution width (RBC) [Entitic vol] 43.3 fL 35.1-43.9 [facility] Estimated glomerular filtrat ion rate (GFR) AmericanOrdered By: Albert Sykes on 05-09-2024 Estimated GFR (MDRD) Amer 89 mL/min >60 [facility] Comment on above: GFR Calc Estimation of creatinine jenny aranceOrdered By: Albert Sykes on 05-09-2024 Estimated Creatinine Clearance Calc 84.32 ml/min [facility] Glomerular filtration rate ( GFR) estimationOrdered By: Albert Sykes on 05-09-2024 Estimated GFR (MDRD) Non-Af Amer 73 mL/min >60 [facility] Comment on above: Non- GFR Calc Glucose measurementOrdered B y: Albert Sykes on 05-09-2024 Glucose [Mass/Vol] 88 mg/dL 74-106 [facility] Hematocrit Auto (Bld) [Volum e fraction]Ordered By: Albert Sykes on 05-09-2024 Hematocrit (Bld) [Volume fraction] 38.8 % 37-47 [facility] Hemoglobin measurementOrdere d By: Albert Sykes on 05-09-2024 Hemoglobin (Bld) [Mass/Vol] 13.0 g/dL 12.0-15.0 [facility] L501.4020on 05-09-2024 TROPONIN-I HS 5 pg/mL Normal 3.0-54.0 [facility] Comment on above: Order Comment: 'TROP ' Serial specimen #1, #2 or #3: 1 Result Comment: Arcadio de la paz Note: New Test Units and Gender Specific Reference Ranges. For more information see Policy Stat Procedure [place] High Sensitivity Troponin (TNIH) and attachments. Performed By: #### L 501.4020, L500.2500, L500.3400, L501.2450 ####[facility] [address] [place], [place], [phone] Laboratory - Chemistry and C hemistry - challengeOrdered By: Albert Sykes on 05-09-2024 AST [Catalytic activity/Vol] 21 U/L 15-37 [facility] Lipaseon 05-09-2024 Lipase [Catalytic activity/Vol] 52 U/L Normal 13-75 [facility] Comment on above: Order Comment: 'TROP ' Serial specimen #1, #2 or #3: 1 Result Comment: Arcadio de la paz note:LIPASE revised reference range effective 22.New Lipase methodology. Expected to produce lower valuesthan the previous assay method.NEW Reference Range: 13 - 75 U/L Performed By: #### L 501.4020, L500.2500, L500.3400, L501.2450 ####[facility] [address] [place], [address] Lipase measurementOrdered By : Albert Sykes on 05-09-2024 Lipase [Catalytic activity/Vol] 52 U/L 13-75 [facility] Comment on above: Please note:LIPASE r evised reference range effective 22. New Lipase methodology. Expected to produce lower values than the previous assay method. NEW Reference Range: 13 - 75 U/L Liver Profileon 05-09-2024 Albumin [Mass/Vol] 3.5 g/dL Normal 3.2-5.0 [facility] Comment on above: Order Comment: 'TROP ' Serial specimen #1, #2 or #3: 1 Performed By: #### L 501.4020, L500.2500, L500.3400, L501.2450 ####[facility] [address] [place], [address] ALK P 78 U/L Normal 45-117 [facility] Comment on above: Order Comment: 'TROP ' Serial specimen #1, #2 or #3: 1 Performed By: #### L 501.4020, L500.2500, L500.3400, L501.2450 ####[facility] [address] [place], [address] ALT [Catalytic activity/Vol] 32 U/L Normal 13-56 [facility] Comment on above: Order Comment: 'TROP ' Serial specimen #1, #2 or #3: 1 Performed By: #### L 501.4020, L500.2500, L500.3400, L501.2450 ####[facility] [address] [place], [address] AST [Catalytic activity/Vol] 21 U/L Normal 15-37 [facility] Comment on above: Order Comment: 'TROP ' Serial specimen #1, #2 or #3: 1 Performed By: #### L 501.4020, L500.2500, L500.3400, L501.2450 ####[facility] [address] [place], [address] Bilirubin [Mass/Vol] 0.30 mg/dL Normal 0.20-1.00 [facility] Comment on above: Order Comment: 'TROP ' Serial specimen #1, #2 or #3: 1 Result Comment: For patients on eltrombopag therapy, use of Dimension [place] TBIL is not recommended. Performed By: #### L 501.4020, L500.2500, L500.3400, L501.2450 ####[facility] [address] [place], [address] Bilirubin.direct [Mass/Vol] 0.08 mg/dL Normal 0.00-0.30 [facility] Comment on above: Order Comment: 'TROP ' Serial specimen #1, #2 or #3: 1 Performed By: #### L 501.4020, L500.2500, L500.3400, L501.2450 ####[facility] [address] [place], [address] Globulin (S) [Mass/Vol] 3.6 g/dL Normal 2.2-4.2 [facility] Comment on above: Order Comment: 'TROP ' Serial specimen #1, #2 or #3: 1 Performed By: #### L 501.4020, L500.2500, L500.3400, L501.2450 ####[facility] [address] [place], [address] T PROT 7.1 g/dL Normal 6.4-8.2 [facility] Comment on above: Order Comment: 'TROP ' Serial specimen #1, #2 or #3: 1 Performed By: #### L 501.4020, L500.2500, L500.3400, L501.2450 ####[facility] [address] [place], [address] MCV (mean corpuscular volume ) determinationOrdered By: Albert Sykes on 05-09-2024 MCV (RBC) [Entitic vol] 91.9 fL 81-99 [facility] MR/WIMNBRMF8im 05-09-2024 MR/POSTOPAN2 Normal [facility] Mean corpuscular hemoglobin (MCH) determinationOrdered By: Albert Sykes on 05-09-2024 MCH (RBC) [Entitic mass] 30.8 pg 27.0-32.0 [facility] Mean corpuscular hemoglobin concentration (MCHC) determinationOrdered By: Albert Sykes on 05-09-2024 MCHC (RBC) [Mass/Vol] 33.5 g/dL 32-36 [facility] Mean platelet volume determi nationOrdered By: Albret Sykes on 05-09-2024 Platelet mean volume (Bld) [Entitic vol] 8.5 fL 6.2-12.0 [facility] Platelet countOrdered By: Hunter Sykes on 05-09-2024 Platelets (Bld) [#/Vol] 305 10*3/uL 150-450 [facility] Potassium measurementOrdered By: Albert Sykes on 05-09-2024 Potassium [Moles/Vol] 3.5 mmol/L 3.5-5.1 [facility] RBC Auto (Bld) [#/Vol]Ordere d By: Albert Sykes on 05-09-2024 RBC (Bld) [#/Vol] 4.22 10*6/uL 4.2-5.4 [facility] Serum anion gap measurementO rdered By: Albert Sykes on 05-09-2024 Anion gap [Moles/Vol] 5 mmol/L 5-15 [facility] Serum globulin measurementOr dered By: Albert Sykes on 05-09-2024 Globulin (S) [Mass/Vol] 3.6 g/dL 2.2-4.2 [facility] Serum or plasma alanine irwin otransferase (ALT) measurementOrdered By: Albert Skyes on 05-09-2024 ALT [Catalytic activity/Vol] 32 U/L 13-56 [facility] Serum or plasma albumin marianna urement (mass/volume)Ordered By: Albert Sykes on 05-09-2024 Albumin [Mass/Vol] 3.5 g/dL 3.2-5.0 [facility] Serum or plasma alkaline caity sphatase measurementOrdered By: Albert Sykes on 05-09-2024 ALP [Catalytic activity/Vol] 78 U/L 45-117 [facility] Serum or plasma calcium marianna urement (mass/volume)Ordered By: Albert Sykes on 05-09-2024 Calcium [Mass/Vol] 8.3 mg/dL Low 8.5-10.1 [facility] Serum or plasma creatinine m easurement (mass/volume)Ordered By: Albert Sykes on 05-09-2024 Creatinine [Mass/Vol] 0.88 mg/dL 0.55-1.02 [facility] Comment on above: The validity of the calculated GFR & GFRAA in patients over 70 years has not been determined. Clinical correlation is essential. Serum or plasma urea nitroge n measurement (mass/volume)Ordered By: Albert Sykes on 05-09-2024 Urea nitrogen [Mass/Vol] 9 mg/dL 7-18 [facility] Sodium levelOrdered By: Berenice Sykes on 05-09-2024 Sodium [Moles/Vol] 139 mmol/L 136-145 [facility] Total proteinOrdered By: Aníbal Sykes on 05-09-2024 Protein [Mass/Vol] 7.1 g/dL 6.4-8.2 [facility] Troponin IOrdered By: Albert Sykes on 05-09-2024 Troponin I High Sensitivity 5 pg/mL 3.0-54.0 [facility] Comment on above: Please Note: New Garima t Units and Gender Specific Reference Ranges. For more information see Policy Stat Procedure [place] High Sensitivity Troponin (TNIH) and attachments. White blood cell (WBC) count Ordered By: Albert Sykes on 05-09-2024 WBC (Bld) [#/Vol] 7.0 10*3/uL 4.4-11.0 [facility] EGD Reporton 05-08-2024 EGD Report Normal [facility] H Pylori (initial)on 024 H Pylori (initial) Normal [facility] Comment on above: Performed By: #### P H.PYLORI ####[facility] [address] [place], [address] MR/POSTOP.ANEon 05-08-2024 MR/POSTOP.ANE Normal [facility] Surgery Specimen Level Donita 05-08-2024 Surgery Specimen Level IV Normal [facility] Comment on above: Performed By: #### P SUIV ####[facility] [address] [place], [address] [employer] Office Visit Reporton 05-07-2024 [employer] Office Visit Report Normal [facility] M7400.3302on 05-01-2024 M7400.3302 Normal [facility] Comment on above: Performed By: #### M 100.7900, M100.0605, M100.6796, M100.637, L7000.0300, L7000.0700, L7000.0750, M600.5000, M7400.3302 ####[facility] [address] [place], [address] Ova and Parasites 8623on OP Normal [facility] Comment on above: Performed By: #### M 100.7900, M100.0605, M100.6796, M100.637, L7000.0300, L7000.0700, L7000.0750, M600.5000, M7400.3302 ####[facility] [address] [place], [place], [id number] L7000.0750on 04-28-2024 P ELASTASE,FECA > 800 Normal >200 [facility] Comment on above: Result Comment: Resu lt Units: ug Elast./g Severe Pancreatic Insufficiency: <100 Moderate Pancreatic Insufficiency: 100 - 200 Normal: >200Performed at: [address] [id number] Director: Dave Palmer MD, Phone: [phone] Performed By: #### M 100.7900, M100.0605, M100.6796, M100.637, L7000.0300, L7000.0700, L7000.0750, M600.5000, M7400.3302 ####[facility] [address] [place], [address] Calprotectin, Stoolon [address] 96 ug/g Normal 0-120 [facility] Comment on above: Order Comment: Test( s) 369214-Vgcp, Neutral; 373886-Mjap, Totalwas developed and its performance characteristicsdetermined by [employer]. It has not been cleared or approvedby the Food and Drug Administration. Result Comment: Conc entration Interpretation Follow-Up< 5 - 50 ug/g Normal None>50 -120 ug/g Borderline Re-evaluate in 4-6 weeks >120 ug/g Abnormal Repeat as clinically indicatedPerformed at: [address] [id number] Director: Dwight Estrada PhD, Phone: [phone] at: [address] [id number] Director: Dave Palmer MD, Phone: [phone] Performed By: #### M 100.7900, M100.0605, M100.6796, M100.637, L7000.0300, L7000.0700, L7000.0750, M600.5000, M7400.3302 ####[facility] [address] [place], [address] Fecal Fat, Qualitativeon FATS, NEUTRAL Normal Normal . [facility] Comment on above: Order Comment: Test( s) 964692-Rdje, Neutral; 207026-Uhxg, Totalwas developed and its performance characteristicsdetermined by [facility]. It has not been cleared or approvedby the Food and Drug Administration. Result Comment: Norm al (<60 Droplets/HPF) Performed By: #### M 100.7900, M100.0605, M100.6796, M100.637, L7000.0300, L7000.0700, L7000.0750, M600.5000, M7400.3302 ####[facility] [address] [place], [address] FATS, TOTAL Normal Normal . [facility] Comment on above: Order Comment: Test( s) [id number]-Axfx, Neutral; 840847-Qkic, Totalwas developed and its performance characteristicsdetermined by [facility] [facility]. It has not been cleared or approvedby the Food and Drug Administration. Result Comment: Norm al (<100 Droplets/HPF) Performed By: #### M 100.7900, M100.0605, M100.6796, M100.637, L7000.0300, L7000.0700, L7000.0750, M600.5000, M7400.3302 ####[facility] [address] [place], [address] CBC W/Diff, Automatedon 04-02 Absolute Lymph 2.31 X10 3/uL Normal 0.83-4.51 [facility] Comment on above: Performed By: #### L 100.0100, L500.4050 ####[facility] [address] [place], [address] Absolute Neut 3.3 X10 3/uL Normal 2.0-7.7 [facility] Comment on above: Performed By: #### L 100.0100, L500.4050 ####[facility] [address] [place], [address] Basophils/100 WBC (Bld) 0.5 % Normal 0-1 [facility] Comment on above: Performed By: #### L 100.0100, L500.4050 ####[facility] [address] [place], [address] Eosinophils/100 WBC (Bld) 2.1 % Normal 0-5 [facility] Comment on above: Performed By: #### L 100.0100, L500.4050 ####[facility] [address] [place], [address] Erythrocyte distribution width (RBC) [Ratio] 13.0 % Normal 11.6-14.6 [facility] Comment on above: Performed By: #### L 100.0100, L500.4050 ####[facility] [address] [place], [address] Hematocrit (Bld) [Volume fraction] 38.1 % Normal 37-47 [facility] Comment on above: Performed By: #### L 100.0100, L500.4050 ####[facility] [address] [place], [address] Hemoglobin (Bld) [Mass/Vol] 12.9 g/dL Normal 12.0-15.0 [facility] Comment on above: Performed By: #### L 100.0100, L500.4050 ####[facility] [address] [place], [address] IG% 0.200 Normal 0.0-0.9 [facility] Comment on above: Result Comment: IG% - Immature Granulocytes (promyelocytes, myelocytes andmetamyelocytes) > 1% indicates that a LEFT SHIFT is Present. Performed By: #### L 100.0100, L500.4050 ####[facility] [address] [place], [address] Lymphocytes/100 WBC (Bld) 37.3 % Normal 19-41 [facility] Comment on above: Performed By: #### L 100.0100, L500.4050 ####[facility] [address] [place], [address] MCH (RBC) [Entitic mass] 30.9 pg Normal 27.0-32.0 [facility] Comment on above: Performed By: #### L 100.0100, L500.4050 ####[facility] [address] [place], [address] MCHC (RBC) [Mass/Vol] 33.9 g/dL Normal 32-36 [facility] Comment on above: Performed By: #### L 100.0100, L500.4050 ####[facility] [address] [place], [address] MCV (RBC) [Entitic vol] 91.4 fL Normal 81-99 [facility] Comment on above: Performed By: #### L 100.0100, L500.4050 ####[facility] [address] [place], [address] Monocytes/100 WBC (Bld) 6.8 % Normal 0-10 [facility] Comment on above: Performed By: #### L 100.0100, L500.4050 ####[facility] [address] [place], [address] Neutrophils/100 WBC (Bld) 53.1 % Normal 47-70 [facility] Comment on above: Performed By: #### L 100.0100, L500.4050 ####[facility] [address] [place], [address] Nucleated RBC (Bld) [#/Vol] 0 10*3/uL Normal 0-5 [facility] Comment on above: Performed By: #### L 100.0100, L500.4050 ####[facility] [address] [place], [address] Platelet mean volume (Bld) [Entitic vol] 9.9 fL Normal 6.2-12.0 [facility] Comment on above: Performed By: #### L 100.0100, L500.4050 ####[facility] [address] [place], [address] Platelets (Bld) [#/Vol] 293 10*3/uL Normal 150-450 [facility] Comment on above: Performed By: #### L 100.0100, L500.4050 ####[facility] [address] [place], [address] RBC (Bld) [#/Vol] 4.17 10*6/uL Low 4.2-5.4 [facility] Comment on above: Performed By: #### L 100.0100, L500.4050 ####[facility] [address] [place], [address] RDW SD 42.9 fl Normal 35.1-43.9 [facility] Comment on above: Performed By: #### L 100.0100, L500.4050 ####[facility] [address] [place], [address] WBC (Bld) [#/Vol] 6.2 10*3/uL Normal 4.4-11.0 [facility] Comment on above: Performed By: #### L 100.0100, L500.4050 ####[facility] [address] [place], [address] CDIFF (PCR)on 04-23-2024 CDIFF Pending 027 027 NAP1-B1 Presumptive Negative *for epidemiolologic???use C. Diff PCR Negative- No toxigenic C. Diff Detected Normal [facility] Comment on above: Performed By: #### M 100.7900, M100.0605, M100.6796, M100.637, L7000.0300, L7000.0700, L7000.0750, M600.5000, M7400.3302 ####[facility] [address] [place], [address] Comprehensive Metabolic Prof ilon 04-23-2024 Albumin [Mass/Vol] 3.2 g/dL Normal 3.2-5.0 [facility] Comment on above: Performed By: #### L 100.0100, L500.4050 ####[facility] [address] [place], [address] Albumin/Globulin [Mass ratio] 0.8 {ratio} Low 0.9-2.4 [facility] Comment on above: Performed By: #### L 100.0100, L500.4050 ####[facility] [address] [place], [address] ALK P 67 U/L Normal 45-117 [facility] Comment on above: Performed By: #### L 100.0100, L500.4050 ####[facility] [address] [place], [address] ALT [Catalytic activity/Vol] 30 U/L Normal 13-56 [facility] Comment on above: Performed By: #### L 100.0100, L500.4050 ####[facility] [address] [place], [address] AST [Catalytic activity/Vol] 40 U/L High 15-37 [facility] Comment on above: Result Comment: Mode rate Hemolysis, Result may be falsely increased. Performed By: #### L 100.0100, L500.4050 ####[facility] [address] [place], [address] Bilirubin [Mass/Vol] 0.60 mg/dL Normal 0.20-1.00 [facility] Comment on above: Result Comment: For patients on eltrombopag therapy, use of Dimension [place] TBIL is not recommended. Performed By: #### L 100.0100, L500.4050 ####[facility] [address] [place], [address] BUN/CRE 22.0 RATIO High 10-20 [facility] Comment on above: Performed By: #### L 100.0100, L500.4050 ####[facility] [address] [place], [address] CA,Total 9.0 mg/dL Normal 8.5-10.1 [facility] Comment on above: Performed By: #### L 100.0100, L500.4050 ####[facility] [address] [place], [address] Chloride [Moles/Vol] 107 mmol/L Normal 98-107 [facility] Comment on above: Performed By: #### L 100.0100, L500.4050 ####[facility] [address] [place], [address] CO2 [Moles/Vol] 27.0 mmol/L Normal 21.0-32.0 [facility] Comment on above: Performed By: #### L 100.0100, L500.4050 ####[facility] [address] [place], [address] Creatinine [Mass/Vol] 0.77 mg/dL Normal 0.55-1.02 [facility] Comment on above: Result Comment: The validity of the calculated GFR GFRAA in patients over70 years has not been determined. Clinical correlation isessential. Performed By: #### L 100.0100, L500.4050 ####[facility] [address] [place], [address] EST GFR - AA 103 mL/min Normal >60 [facility] Comment on above: Result Comment: Afri can Maltese GFR Calc Performed By: #### L 100.0100, L500.4050 ####[facility] [address] [place], [address] GAP 1 Low 5-15 [facility] Comment on above: Performed By: #### L 100.0100, L500.4050 ####[facility] [address] [place], [address] GFR/1.73 sq M.predicted among non-blacks MDRD (S/P/Bld) [Vol rate/Area] 85 mL/min/{1.73_m2} Normal >60 [facility] Comment on above: Result Comment: Non- GFR Calc Performed By: #### L 100.0100, L500.4050 ####[facility] [address] [place], [address] Globulin (S) [Mass/Vol] 4.2 g/dL Normal 2.2-4.2 [facility] Comment on above: Performed By: #### L 100.0100, L500.4050 ####[facility] [address] [place], [address] Glucose [Mass/Vol] 95 mg/dL Normal 74-106 [facility] Comment on above: Performed By: #### L 100.0100, L500.4050 ####[facility] [address] [place], [address] Potassium [Moles/Vol] 4.4 mmol/L Normal 3.5-5.1 [facility] Comment on above: Result Comment: Mode rate Hemolysis, Result may be falsely increased. Performed By: #### L 100.0100, L500.4050 ####[facility] [address] [place], [address] Sodium [Moles/Vol] 135 mmol/L Low 136-145 [facility] Comment on above: Performed By: #### L 100.0100, L500.4050 ####[facility] [address] [place], [address] T PROT 7.4 g/dL Normal 6.4-8.2 [facility] Comment on above: Performed By: #### L 100.0100, L500.4050 ####[facility] [address] [place], [address] Urea nitrogen [Mass/Vol] 17 mg/dL Normal 7-18 [facility] Comment on above: Performed By: #### L 100.0100, L500.4050 ####[facility] [address] [place], [address] ENTERIC PATHOGEN PANEL STOOL on 04-23-2024 EP PANEL CAMPYLOBACTER Not Detected Norovirus Not Detected Rotavirus Not Detected Salmonella Not Detected Shiga Toxin Not Detected Shigella sp. Not Detected VIBRIO Not Detected Yersinia Not Detected Normal [facility] Comment on above: Performed By: #### M 100.7900, M100.0605, M100.6796, M100.637, L7000.0300, L7000.0700, L7000.0750, M600.5000, M7400.3302 ####[facility] [address] [place], [address] Stool Lactoferrin/WBCon 04-02 WBCST Normal Reference Ran ge = Negative Fecal WBC Lactoferrin Negative: No Fecal WBC Lactoferrin present Normal [facility] Comment on above: Performed By: #### M 100.7900, M100.0605, M100.6796, M100.637, L7000.0300, L7000.0700, L7000.0750, M600.5000, M7400.3302 ####[facility] [address] [place], [address] Stool Occult Blood iFOBon STOB Negative Normal [facility] Comment on above: Performed By: #### M 100.7900, M100.0605, M100.6796, M100.637, L7000.0300, L7000.0700, L7000.0750, M600.5000, M7400.3302 ####[facility] [address] [place], [address] Gastric Emptying Studyon Gastric Emptying Study Normal [facility] Gastroenterology Visit Repor ton 04-07-2024 Gastroenterology Visit Report Normal [facility] Abdomen/Pelvis W IV Cont ONL Yon 03-24-2024 Abdomen/Pelvis W IV Cont ONLY Normal [facility] Basic Metabolic Profile (BMP )on 03-24-2024 BUN/CRE 20.5 RATIO High 10- [facility] Comment on above: Performed By: #### L 501.2450, L100.0100, L500.2500, L500.3400 ####[facility] [address] [place], [address] CA,Total 9.3 mg/dL Normal 8.5-10.1 [facility] Comment on above: Performed By: #### L 501.2450, L100.0100, L500.2500, L500.3400 ####[facility] [address] [place], [address] Chloride [Moles/Vol] 107 mmol/L Normal 98-107 [facility] Comment on above: Performed By: #### L 501.2450, L100.0100, L500.2500, L500.3400 ####[facility] [address] [place], [address] CO2 [Moles/Vol] 25.0 mmol/L Normal 21.0-32.0 [facility] Comment on above: Performed By: #### L 501.2450, L100.0100, L500.2500, L500.3400 ####[facility] [address] [place], [address] Creatinine [Mass/Vol] 0.83 mg/dL Normal 0.55-1.02 [facility] Comment on above: Result Comment: The validity of the calculated GFR GFRAA in patients over70 years has not been determined. Clinical correlation isessential. Performed By: #### L 501.2450, L100.0100, L500.2500, L500.3400 ####[facility] [address] [place], [address] ECRCL 89.21 ml/min Normal [facility] Comment on above: Performed By: #### L 501.2450, L100.0100, L500.2500, L500.3400 ####[facility] [address] [place], [address] EST GFR - AA 95 mL/min Normal >60 [facility] Comment on above: Result Comment: Afri can Maltese GFR Calc Performed By: #### L 501.2450, L100.0100, L500.2500, L500.3400 ####[facility] [address] [place], [address] GAP 8 Normal 5-15 [facility] Comment on above: Performed By: #### L 501.2450, L100.0100, L500.2500, L500.3400 ####[facility] [address] [place], [address] GFR/1.73 sq M.predicted among non-blacks MDRD (S/P/Bld) [Vol rate/Area] 78 mL/min/{1.73_m2} Normal >60 [facility] Comment on above: Result Comment: Non- GFR Calc Performed By: #### L 501.2450, L100.0100, L500.2500, L500.3400 ####[facility] [address] [place], [address] Glucose [Mass/Vol] 99 mg/dL Normal 74-106 [facility] Comment on above: Performed By: #### L 501.2450, L100.0100, L500.2500, L500.3400 ####[facility] [address] [place], [address] Potassium [Moles/Vol] 3.7 mmol/L Normal 3.5-5.1 [facility] Comment on above: Performed By: #### L 501.2450, L100.0100, L500.2500, L500.3400 ####[facility] [address] [place], [address] Sodium [Moles/Vol] 140 mmol/L Normal 136-145 [facility] Comment on above: Performed By: #### L 501.2450, L100.0100, L500.2500, L500.3400 ####[facility] [address] [place], [address] Urea nitrogen [Mass/Vol] 17 mg/dL Normal 7-18 [facility] Comment on above: Performed By: #### L 501.2450, L100.0100, L500.2500, L500.3400 ####[facility] [address] [place], [address] CBC W/Diff, Automatedon -08 04-2023 Absolute Lymph 2.58 X10 3/uL Normal 0.83-4.51 [facility] Comment on above: Performed By: #### L 501.2450, L100.0100, L500.2500, L500.3400 ####[facility] [address] [place], [address] Absolute Neut 3.1 X10 3/uL Normal 2.0-7.7 [facility] Comment on above: Performed By: #### L 501.2450, L100.0100, L500.2500, L500.3400 ####[facility] [address] [place], [address] Basophils/100 WBC (Bld) 0.5 % Normal 0-1 [facility] Comment on above: Performed By: #### L 501.2450, L100.0100, L500.2500, L500.3400 ####[facility] [address] [place], [address] Eosinophils/100 WBC (Bld) 1.8 % Normal 0-5 [facility] Comment on above: Performed By: #### L 501.2450, L100.0100, L500.2500, L500.3400 ####[facility] [address] [place], [address] Erythrocyte distribution width (RBC) [Ratio] 12.9 % Normal 11.6-14.6 [facility] Comment on above: Performed By: #### L 501.2450, L100.0100, L500.2500, L500.3400 ####[facility] [address] [place], [address] Hematocrit (Bld) [Volume fraction] 42.0 % Normal 37-47 [facility] Comment on above: Performed By: #### L 501.2450, L100.0100, L500.2500, L500.3400 ####[facility] [address] [place], [address] Hemoglobin (Bld) [Mass/Vol] 13.9 g/dL Normal 12.0-15.0 [facility] Comment on above: Performed By: #### L 501.2450, L100.0100, L500.2500, L500.3400 ####[facility] [address] [place], [address] IG% 0.200 Normal 0.0-0.9 [facility] Comment on above: Result Comment: IG% - Immature Granulocytes (promyelocytes, myelocytes andmetamyelocytes) > 1% indicates that a LEFT SHIFT is Present. Performed By: #### L 501.2450, L100.0100, L500.2500, L500.3400 ####[facility] [address] [place], [address] Lymphocytes/100 WBC (Bld) 41.3 % High 19-41 [facility] Comment on above: Performed By: #### L 501.2450, L100.0100, L500.2500, L500.3400 ####[facility] [address] [place], [address] MCH (RBC) [Entitic mass] 30.3 pg Normal 27.0-32.0 [facility] Comment on above: Performed By: #### L 501.2450, L100.0100, L500.2500, L500.3400 ####[facility] [address] [place], [address] MCHC (RBC) [Mass/Vol] 33.1 g/dL Normal 32-36 [facility] Comment on above: Performed By: #### L 501.2450, L100.0100, L500.2500, L500.3400 ####[facility] [address] [place], [address] MCV (RBC) [Entitic vol] 91.7 fL Normal 81-99 [facility] Comment on above: Performed By: #### L 501.2450, L100.0100, L500.2500, L500.3400 ####[facility] [address] [place], [address] Monocytes/100 WBC (Bld) 6.9 % Normal 0-10 [facility] Comment on above: Performed By: #### L 501.2450, L100.0100, L500.2500, L500.3400 ####[facility] [address] [place], [address] Neutrophils/100 WBC (Bld) 49.3 % Normal 47-70 [facility] Comment on above: Performed By: #### L 501.2450, L100.0100, L500.2500, L500.3400 ####[facility] [address] [place], [address] Nucleated RBC (Bld) [#/Vol] 0 10*3/uL Normal 0-5 [facility] Comment on above: Performed By: #### L 501.2450, L100.0100, L500.2500, L500.3400 ####[facility] [address] [place], [address] Platelet mean volume (Bld) [Entitic vol] 9.0 fL Normal 6.2-12.0 [facility] Comment on above: Performed By: #### L 501.2450, L100.0100, L500.2500, L500.3400 ####[facility] [address] [place], [address] Platelets (Bld) [#/Vol] 322 10*3/uL Normal 150-450 [facility] Comment on above: Performed By: #### L 501.2450, L100.0100, L500.2500, L500.3400 ####[facility] [address] [place], [address] RBC (Bld) [#/Vol] 4.58 10*6/uL Normal 4.2-5.4 [facility] Comment on above: Performed By: #### L 501.2450, L100.0100, L500.2500, L500.3400 ####[facility] [address] [place], [address] RDW SD 43.1 fl Normal 35.1-43.9 [facility] Comment on above: Performed By: #### L 501.2450, L100.0100, L500.2500, L500.3400 ####[facility] [address] [place], [address] WBC (Bld) [#/Vol] 6.2 10*3/uL Normal 4.4-11.0 [facility] Comment on above: Performed By: #### L 501.2450, L100.0100, L500.2500, L500.3400 ####[facility] [address] [place], [address] Emergency Department Summary on 03-24-2024 Emergency Department Summary Normal [facility] Lipaseon 03-24-2024 Lipase [Catalytic activity/Vol] 36 U/L Normal 13-75 [facility] Comment on above: Result Comment: Arcadio de la paz note:LIPASE revised reference range effective 22.New Lipase methodology. Expected to produce lower valuesthan the previous assay method.NEW Reference Range: 13 - 75 U/L Performed By: #### L 501.2450, L100.0100, L500.2500, L500.3400 ####[facility] [address] [place], [address] Liver Profileon 03-24-2024 Albumin [Mass/Vol] 3.7 g/dL Normal 3.2-5.0 [facility] Comment on above: Performed By: #### L 501.2450, L100.0100, L500.2500, L500.3400 ####[facility] [address] [place], [address] ALK P 81 U/L Normal 45-117 [facility] Comment on above: Performed By: #### L 501.2450, L100.0100, L500.2500, L500.3400 ####[facility] [address] [place], [address] ALT [Catalytic activity/Vol] 32 U/L Normal 13-56 [facility] Comment on above: Performed By: #### L 501.2450, L100.0100, L500.2500, L500.3400 ####[facility] [address] [place], [address] AST [Catalytic activity/Vol] 25 U/L Normal 15-37 [facility] Comment on above: Performed By: #### L 501.2450, L100.0100, L500.2500, L500.3400 ####[facility] [address] [place], [address] Bilirubin [Mass/Vol] 0.40 mg/dL Normal 0.20-1.00 [facility] Comment on above: Result Comment: For patients on eltrombopag therapy, use of Dimension [place] TBIL is not recommended. Performed By: #### L 501.2450, L100.0100, L500.2500, L500.3400 ####[facility] [address] [place], [address] Bilirubin.direct [Mass/Vol] 0.13 mg/dL Normal 0.00-0.30 [facility] Comment on above: Performed By: #### L 501.2450, L100.0100, L500.2500, L500.3400 ####[facility] [address] [place], [address] Globulin (S) [Mass/Vol] 4.2 g/dL Normal 2.2-4.2 [facility] Comment on above: Performed By: #### L 501.2450, L100.0100, L500.2500, L500.3400 ####[facility] [address] [place], [address] T PROT 7.9 g/dL Normal 6.4-8.2 [facility] Comment on above: Performed By: #### L 501.2450, L100.0100, L500.2500, L500.3400 ####[facility] [address] [place], [address] Urinalysis, Completeon 03-24 EPI,SQUAMOUS 5-10 SEEN Normal 5-10 [facility] Comment on above: Order Comment: CLEAN CATCH Performed By: #### L 400.0001 ####[facility] [address] [place], [address] BACTERIA 1+ /hpf Normal None Seen [facility] Comment on above: Order Comment: CLEAN CATCH Performed By: #### L 400.0001 ####[facility] [address] [place], [address] WBC 0-5 SEEN Normal 0-5 [facility] Comment on above: Order Comment: CLEAN CATCH Performed By: #### L 400.0001 ####[facility] [address] [place], [address] Mucus Ql (Urine sed) 0 SEEN Normal [facility] Comment on above: Order Comment: CLEAN CATCH Performed By: #### L 400.0001 ####[facility] [address] [place], [address] RBC 0 SEEN Normal 0-5 [facility] Comment on above: Order Comment: CLEAN CATCH Performed By: #### L 400.0001 ####[facility] [address] [place], [address] SCRN MAMM (CAD)W/REBEKAH BILATo n 02-22-2024 SCRN MAMM (CAD)W/REBEKAH BILAT Normal [facility] Basic Metabolic Profile (BMP )on 02-18-2024 BUN/CRE 14.3 RATIO Normal 10-20 [facility] Comment on above: Order Comment: Order Date: 02/06/24Order Info: 0667-1 - BMP Performed By: #### L 500.2500 ####[facility] [address] [place], [address] CA,Total 9.1 mg/dL Normal 8.5-10.1 [facility] Comment on above: Order Comment: Order Date: 02/06/24Order Info: 666-07 - BMP Performed By: #### L 500.2500 ####[facility] [address] [place], [address] Chloride [Moles/Vol] 108 mmol/L High 98-107 [facility] Comment on above: Order Comment: Order Date: 02/06/24Order Info: 666-07 - BMP Performed By: #### L 500.2500 ####[facility] [address] [place], [address] CO2 [Moles/Vol] 28.0 mmol/L Normal 21.0-32.0 [facility] Comment on above: Order Comment: Order Date: 02/06/24Order Info: 666-07 - BMP Performed By: #### L 500.2500 ####[facility] [address] [place], [address] Creatinine [Mass/Vol] 0.91 mg/dL Normal 0.55-1.02 [facility] Comment on above: Order Comment: Order Date: 02/06/24Order Info: 666-07 - BMP Result Comment: The validity of the calculated GFR GFRAA in patients over70 years has not been determined. Clinical correlation isessential. Performed By: #### L 500.2500 ####[facility] [address] [place], [address] EST GFR - AA 86 mL/min Normal >60 [facility] Comment on above: Order Comment: Order Date: 02/06/24Order Info: 06- - BMP Result Comment: Afri can Maltese GFR Calc Performed By: #### L 500.2500 ####[facility] [address] [place], [address] GAP 2 Low 5-15 [facility] Comment on above: Order Comment: Order Date: 02/06/24Order Info: 666-07 - BMP Performed By: #### L 500.2500 ####[facility] [address] [place], [address](454) GFR/1.73 sq M.predicted among non-blacks MDRD (S/P/Bld) [Vol rate/Area] 71 mL/min/{1.73_m2} Normal >60 [facility] Comment on above: Order Comment: Order Date: 02/06/24Order Info: 666-07 - BMP Result Comment: Non- GFR Calc Performed By: #### L 500.2500 ####[facility] [address] [place], [place], [address](053) Glucose [Mass/Vol] 104 mg/dL Normal 74-106 [facility] Comment on above: Order Comment: Order Date: 02/06/24Order Info: 666-07 - BMP Result Comment: Fast ing Glucose result from 100 to 125 mg/dLsuggests IMPAIRED HOMEOSTASIS per A.D.A. criteria. Performed By: #### L 500.2500 ####[facility] [address] [place], [place], [phone] Potassium [Moles/Vol] 4.3 mmol/L Normal 3.5-5.1 [facility] Comment on above: Order Comment: Order Date: 02/06/24Order Info: 666-07 - BMP Performed By: #### L 500.2500 ####[facility] [address] [place], [address] Sodium [Moles/Vol] 138 mmol/L Normal 136-145 [facility] Comment on above: Order Comment: Order Date: 02/06/24Order Info: 666-07 - BMP Performed By: #### L 500.2500 ####[facility] [address] [place], [address] Urea nitrogen [Mass/Vol] 13 mg/dL Normal 7-18 [facility] Comment on above: Order Comment: Order Date: 08/07/24Order Info: 666-07 - BMP Performed By: #### L 500.2500 ####[facility] [address] [place], [address] Basic Metabolic Profile (BMP )on 01-22-2024 BUN/CRE 7.0 RATIO Low 10-20 [facility] Comment on above: Performed By: #### L 100.0100, L500.2500 ####[facility] [address] [place], [address] CA,Total 8.6 mg/dL Normal 8.5-10.1 [facility] Comment on above: Performed By: #### L 100.0100, L500.2500 ####[facility] [address] [place], [address] Chloride [Moles/Vol] 106 mmol/L Normal 98-107 [facility] Comment on above: Performed By: #### L 100.0100, L500.2500 ####[facility] [address] [place], [address] CO2 [Moles/Vol] 25.0 mmol/L Normal 21.0-32.0 [facility] Comment on above: Performed By: #### L 100.0100, L500.2500 ####[facility] [address] [place], [address] Creatinine [Mass/Vol] 1.00 mg/dL Normal 0.55-1.02 [facility] Comment on above: Result Comment: The validity of the calculated GFR GFRAA in patients over70 years has not been determined. Clinical correlation isessential. Performed By: #### L 100.0100, L500.2500 ####[facility] [address] [place], [address] ECRCL 73.56 ml/min Normal [facility] Comment on above: Performed By: #### L 100.0100, L500.2500 ####[facility] [address] [place], [address] EST GFR - AA 77 mL/min Normal >60 [facility] Comment on above: Result Comment: Afri can Maltese GFR Calc Performed By: #### L 100.0100, L500.2500 ####[facility] [address] [place], [address] GAP 8 Normal 5-15 [facility] Comment on above: Performed By: #### L 100.0100, L500.2500 ####[facility] [address] [place], [address] GFR/1.73 sq M.predicted among non-blacks MDRD (S/P/Bld) [Vol rate/Area] 63 mL/min/{1.73_m2} Normal >60 [facility] Comment on above: Result Comment: Non- GFR Calc Performed By: #### L 100.0100, L500.2500 ####[facility] [address] [place], [address] Glucose [Mass/Vol] 103 mg/dL Normal 74-106 [facility] Comment on above: Result Comment: Fast ing Glucose result from 100 to 125 mg/dLsuggests IMPAIRED HOMEOSTASIS per A.D.A. criteria. Performed By: #### L 100.0100, L500.2500 ####[facility] [address] [place], [address] Potassium [Moles/Vol] 3.3 mmol/L Low 3.5-5.1 [facility] Comment on above: Performed By: #### L 100.0100, L500.2500 ####[facility] [address] [place], [address] Sodium [Moles/Vol] 139 mmol/L Normal 136-145 [facility] Comment on above: Performed By: #### L 100.0100, L500.2500 ####[facility] [address] [place], [address] Urea nitrogen [Mass/Vol] 7 mg/dL Normal 7-18 [facility] Comment on above: Performed By: #### L 100.0100, L500.2500 ####[facility] [address] [place], [address] CBC W/Diff, Automatedon 07-2 -2023 Absolute Lymph 0.61 X10 3/uL Low 0.83-4.51 [facility] Comment on above: Performed By: #### L 100.0100, L500.2500 ####[facility] [address] [place], [address] Absolute Neut 5.1 X10 3/uL Normal 2.0-7.7 [facility] Comment on above: Performed By: #### L 100.0100, L500.2500 ####[facility] [address] [place], [address] Basophils/100 WBC (Bld) 0.3 % Normal 0-1 [facility] Comment on above: Performed By: #### L 100.0100, L500.2500 ####[facility] [address] [place], [address] Eosinophils/100 WBC (Bld) 1.1 % Normal 0-5 [facility] Comment on above: Performed By: #### L 100.0100, L500.2500 ####[facility] [address] [place], [address] Erythrocyte distribution width (RBC) [Ratio] 12.8 % Normal 11.6-14.6 [facility] Comment on above: Performed By: #### L 100.0100, L500.2500 ####[facility] [address] [place], [address] Hematocrit (Bld) [Volume fraction] 38.8 % Normal 37-47 [facility] Comment on above: Performed By: #### L 100.0100, L500.2500 ####[facility] [address] [place], [address] Hemoglobin (Bld) [Mass/Vol] 13.1 g/dL Normal 12.0-15.0 [facility] Comment on above: Performed By: #### L 100.0100, L500.2500 ####[facility] [address] [place], [address] IG% 0.200 Normal 0.0-0.9 [facility] Comment on above: Result Comment: IG% - Immature Granulocytes (promyelocytes, myelocytes andmetamyelocytes) > 1% indicates that a LEFT SHIFT is Present. Performed By: #### L 100.0100, L500.2500 ####[facility] [address] [place], [address] Lymphocytes/100 WBC (Bld) 9.5 % Low 19-41 [facility] Comment on above: Performed By: #### L 100.0100, L500.2500 ####[facility] [address] [place], [address] MCH (RBC) [Entitic mass] 30.7 pg Normal 27.0-32.0 [facility] Comment on above: Performed By: #### L 100.0100, L500.2500 ####[facility] [address] [place], [address] MCHC (RBC) [Mass/Vol] 33.8 g/dL Normal 32-36 [facility] Comment on above: Performed By: #### L 100.0100, L500.2500 ####[facility] [address] [place], [address] MCV (RBC) [Entitic vol] 90.9 fL Normal 81-99 [facility] Comment on above: Performed By: #### L 100.0100, L500.2500 ####[facility] [address] [place], [address] Monocytes/100 WBC (Bld) 9.1 % Normal 0-10 [facility] Comment on above: Performed By: #### L 100.0100, L500.2500 ####[facility] [address] [place], [address] Neutrophils/100 WBC (Bld) 79.8 % High 47-70 [facility] Comment on above: Performed By: #### L 100.0100, L500.2500 ####[facility] [address] [place], [address] Nucleated RBC (Bld) [#/Vol] 0 10*3/uL Normal 0-5 [facility] Comment on above: Performed By: #### L 100.0100, L500.2500 ####[facility] [address] [place], [address] Platelet mean volume (Bld) [Entitic vol] 8.8 fL Normal 6.2-12.0 [facility] Comment on above: Performed By: #### L 100.0100, L500.2500 ####[facility] [address] [place], [address] Platelets (Bld) [#/Vol] 268 10*3/uL Normal 150-450 [facility] Comment on above: Performed By: #### L 100.0100, L500.2500 ####[facility] [address] [place], [address] RBC (Bld) [#/Vol] 4.27 10*6/uL Normal 4.2-5.4 [facility] Comment on above: Performed By: #### L 100.0100, L500.2500 ####[facility] [address] [place], [address] RDW SD 41.8 fl Normal 35.1-43.9 [facility] Comment on above: Performed By: #### L 100.0100, L500.2500 ####[facility] [address] [place], [address] WBC (Bld) [#/Vol] 6.4 10*3/uL Normal 4.4-11.0 [facility] Comment on above: Performed By: #### L 100.0100, L500.2500 ####[facility] [address] [place], [address] Chest 1 View (Portable)on Chest 1 View (Portable) Normal [facility] Emergency Department Summary on 01-22-2024 Emergency Department Summary [facility] M100.678on 01-22-2024 M100.678 SARS-CoV-2 (COVID 19 ) A Positive A INFLUENZA A Negative INFLUENZA B Negative RSV PCR Negative SARS-CoV-2 (COVID 19 PCR) [facility] Comment on above: Performed By: #### M 100.678 ####[facility] [address] [place], [address] Orthopedic Visit Reporton Orthopedic Visit Report Normal [facility] Tibia Fibula 2 Viewson 01-07 Tibia Fibula 2 Views Normal [facility] Emergency Department Summary on 01-03-2024 Emergency Department Summary Normal [facility] CNOVon 10-22-2023 CNOV Office Visit (UCTR ) DAMARI RIOS ([id number]) 1975 F Date Time Provider Department 10/22/23 1:15 PM NAIF LAGUERRE [facility] During your visit today, we recorded the following information about you: Temperature Pulse Respiration Blood pressure 97.5 degrees 82/minute 16/minute 148/82 Weight 81.5 kg Naif Laguerre MD 10/22/2023 1:26 PM Signed Patient presents [...] fever, or progressive weakness or numbness. Naif Laguerre MD Allergies As of Date: 10/22/2023 Noted [...] every after (more content not included)... Normal [facility] CNOVon 10-09-2023 CNOV Office Visit (UCWSTR ) DAMARI RIOS ([id number]) 1975 F Date Time Provider Department 10/09/23 8:30 AM [facility] During your visit today, we recorded the [...] Tympanic membrane, (more content not included)... Normal [facility] STREP A MOLECULAR (POC)on Procedural Control Valid [facility] Strep A (POCT) Negative Negative [facility] CNOVon 09-29-2023 CNOV Office Visit (UCWSTR ) DAMARI RIOS ([id number]) 1975 F Date Time Provider Department 09/29/23 9:15 AM [facility] WSTR UCWSTR During your visit today, we [...] at this point. Patient will go to [facility] ED. Allergies As of Date: 09/29/2023 Noted Allergy Reaction PENICILLINS 03/13/2005 10 - Anaphylaxis BACTRIM (SULFAMETHOXAZOLE-TRIM ETH*03/13/2005 ULTRAM (TRAMADOL HCL) 03/13/2005 5 - Intolerance Date Reviewed: 09/22/2023 Reviewed by: Justyn Maldonado APRN.SOUND RECORDIST - Fully Assessed Primary Visit Diagnosis:Abdominal pain, [...] Status:Closed by COLLEEN CISNEROS on 09/29/23 Normal [facility] CNOVon 09-22-2023 CNOV Office Visit (UCWSTR ) DAMARI RIOS ([id number]) 1975 F Date Time Provider Department 09/22/23 8:30 AM JUSTYN MALDONADO [facility] During your visit today, we recorded the following information about you: Temperature Pulse Respiration Blood pressure 97 degrees 84/minute 21/minute 122/90 Weight 78.3 kg Justyn Maldonado, [place].SOUND RECORDIST 09/22/2023 9:24 AM Signed Subjective HPI Nontoxic-appearing female presents urgent care chief complaint hand injury. Duration of symptom 1 day. Associated symptoms right hand pain. Patient states she got fourth digit in the car door yesterday around 8 PM. Feels swollen and painful today. States has not used any OTC medications. No weaknesses. Pain is increased by movement or palpation. Rfscj-odcf-zpimgscs. No surgeries or fractures in the past. [...] No weakn (more content not included)... [facility] DAMARI RIOS ([id number]) 1975 F Date Time Provider Department 09/22/23 JUSTYN MALDONADO [facility] During your visit today, we recorded the [...] Date Reviewed: 09/22/2023 Reviewed by: Justyn Maldonado APRN.SOUND RECORDIST - Fully Assessed Reason for Visit: Results [...] Encounter Status:Closed by TAMMY FLYNN on 09/22/23 [facility] Telephone (FAMPWS) DAMARI RIOS ([id number]) 1975 F Date Time Provider Department 09/22/23 RIRI ASHER During your visit today, we recorded the following information about you: Janette Santa 09/22/2023 9:26 AM Signed Pt is previous pt of [facility], wondering if she can reestablish as she has recently moved back to [place]. Please review and advise. Janette Santa September [...] Date Reviewed: 09/22/2023 Reviewed by: Justyn Maldonado APRN.SOUND RECORDIST - Fully Assessed Prescriptions as of 09/24/2023 [...] 08/15/2023 Diarrhea [R19.7] 08/18/2023 Encounter Status:Closed by ISRAELJANETTE on 09/24/23 Normal [facility] XR DIGIT 3V FRONTAL/LAT/OBL RTon 09-22-2023 [...] are maintained. IMPRESSION: No acute osseous abnormality General Store Manager: [facility] Transcribe Date/Time: Sep 22 2023 9:12A Dictated by : RUSS DILLON MD This examination was interpreted and the report reviewed and electronically signed by: RUSS DILLON MD on Sep 22 2023 9:13AM EST [id number] Normal [facility] XR Finger - right AP and Lat eral and obliqueon 09-22-2023 IMPRESSION: No acute osseous abnormality General Store Manager: P[facility] Transcribe Date/Time: Sep 22 2023 9:12A [...] spaces are maintained. DIVISION OF RADIOLOGY Provider, [facility] Roberelin howe [place] - 09/22/2023 * * *Final Report* * [...] maintained. IMPRESSION IMPRESSION: No acute osseous abnormality General Store Manager: PSCJose Transcribe Date/Time: Sep 22 2023 9:12A Dictated by : RUSS DILLON MD This examination was interpreted and the report reviewed and electronically signed by: RUSS DILLON MD on Sep 22 2023 9:13AM EST [facility] Radiology Study observation (narrative) [facility] XR Finger - right AP and Lat eral and obliqueOrdered By: [facility] Provider on 09-22-2023 [facility] CNPNon 08-21-2023 CNPN Telephone (PODCCP) DAMARI RIOS ([id number]) 1975 F Date Time Provider Department 08/21/23 NO PCP PODCCP During your visit today, we recorded the following information about you: Allergies As of Date: 08/21/2023 Noted Allergy Reaction PENICILLINS 03/13/2005 10 - Anaphylaxis BACTRIM (SULFAMETHOXAZOLE-TRIM ETH*03/13/2005 ULTRAM (TRAMADOL HCL) 03/13/2005 5 - Intolerance Date Reviewed: 08/18/2023 Reviewed by: Miguel Diaz, RN - Fully Assessed Reason for Visit: Follow Up Phone Call [[phone]] Cmt: Post Discharge F/U - attempt made. [...] Status:Closed by ITA CHILDS on 08/21/23 Normal [facility] CNCOon 08-18-2023 CNCO [facility] CNDS HNO ID: [id number] Author: ZAINAB CROFT MD Service: Hospital Medicine [...] (Oral) Resp 18 Ht 162.6 cm (5' 4) Wt 73.5 kg (162 lb) LMP 07/24/2016 [...] DATE: September 14, 2023 TIME: 7:36 PM [facility] CONSULT PROGon 08-18-2023 CONSULT PROG HNO ID: [id number] Author: HELEN LY APRN.SOUND RECORDIST Service: Gastroenterology Author Type: Nurse Practitioner Type: [...] discuss chronic complaints, IBS Hx hepatic steatosis/elevated LFTs: saw Dr Miranda 2020 Most recent GI OP visit was with Dr Bai ( system). Appears to have had colonoscopy in April 2023. Will [address] contact information in her discharge instructions; she may f/up with either Dr Arita, or myself/Dr Miranda as she prefers. Helen Ly APRN.BEN August 18, 2023 1:49 PM [phone] [facility] NURSING PROGon 08-18-2023 NURSING PROG HNO ID: [id number] Author: ALVIN STAHL, RN Service: ? Author Type: Registered Nurse [...] patient, denies any questions at this time. [facility] NURSING PROG HNO ID: [id number] Author: MIGUEL DIAZ RN Service: Nursing Author Type: Registered Nurse Type: Nursing Progress Note Filed: 08/18/2023 05:48 Note Text: Daily Note: Report completed. Patient is resting comfortably with call light in reach. 0548 Paged out, patient is having persistent nausea. Got prn zofran - can she have anything else? Thanks Normal [facility] CBC panel Auto (Bld)on 08-17 Erythrocyte distribution width (RBC) [Ratio] 13.0 % Normal 11.5-15.0 [facility] Comment on above: Order Comment: Renetta la Type: BLOOD SPECIMEN Ordering Facility: [facility] Address: [facility] [place] [address] Performed By: #### P [facility] #### [facility] CLIA [id number] [address] [place] [address] [place] Hematocrit (Bld) [Volume fraction] 38.8 % Normal 36.0-46.0 [facility] Comment on above: Order Comment: Speci men Type: BLOOD SPECIMEN Ordering Facility: [facility] Address: [address] [place] [address] Performed By: #### P TTAC #### [facility] CLIA [id number] [address] [place] [address] [place] Hemoglobin (Bld) [Mass/Vol] 13.6 g/dL Normal 11.5-15.5 [facility] Comment on above: Order Comment: Speci men Type: BLOOD SPECIMEN Ordering Facility: [facility] Address: [address] [place] [address] Performed By: #### P TTAC #### [facility] CLIA [id number] [address] [place] [address] [place] MCH (RBC) [Entitic mass] 31.3 pg Normal 26.0-34.0 [facility] Comment on above: Order Comment: Speci men Type: BLOOD SPECIMEN Ordering Facility: [facility] Address: [address] [place] [address] Performed By: #### P TTAC #### [facility] CLIA [id number] [address] [place] [address] [place] MCHC (RBC) [Mass/Vol] 35.1 g/dL Normal 30.5-36.0 [facility] Comment on above: Order Comment: Speci men Type: BLOOD SPECIMEN Ordering Facility: [facility] Address: [address] [place] [address] Performed By: #### P TTAC #### [facility] CLIA [id number] [address] [place] [address] [place] MCV (RBC) [Entitic vol] 89.2 fL Normal 80.0-100.0 [facility] Comment on above: Order Comment: Speci men Type: BLOOD SPECIMEN Ordering Facility: [facility] Address: [address] [place] [address] Performed By: #### P TTAC #### [facility] CLIA [id number] [address] [place] [address] [place] Nucleated RBC (Bld) [#/Vol] 10*3/uL Normal <0.01 [facility] Comment on above: Order Comment: Speci men Type: BLOOD SPECIMEN Ordering Facility: [facility] Address: [facility] [place] [address] Performed By: #### P TTAC #### [facility] CLIA [id number] [address] [place] [address] [place] Platelet mean volume (Bld) [Entitic vol] 8.5 fL Low 9.0-12.7 [facility] Comment on above: Order Comment: Speci men Type: BLOOD SPECIMEN Ordering Facility: [facility] Address: [address] [place] [address] Performed By: #### P TTAC #### [facility] CLIA [id number] [address] [place] [address] [place] Platelets (Bld) [#/Vol] 286 10*3/uL Normal 150-400 [facility] Comment on above: Order Comment: Speci men Type: BLOOD SPECIMEN Ordering Facility: [facility] Address: [address] [place] [address] Performed By: #### P TTAC #### [facility] CLIA [id number] [address] [place] [address] [place] RBC (Bld) [#/Vol] 4.35 10*6/uL Normal 3.90-5.20 [facility] Comment on above: Order Comment: Speci men Type: BLOOD SPECIMEN Ordering Facility: [facility] Address: [address] [place] [address] Performed By: #### P TTAC #### [facility] CLIA [id number] [address] [place] [address] [place] WBC (Bld) [#/Vol] 9.64 10*3/uL Normal 3.70-11.00 [facility] Comment on above: Order Comment: Speci men Type: BLOOD SPECIMEN Ordering Facility: [facility] Address: [address] [place] [address] Performed By: #### P TTAC #### [facility] CLIA [id number] [address] [place] [address] [place] CONSULTon 08-17-2023 CONSULT HNO ID: [id number] Author: BRYAN CARR MD Service: Gastroenterology Author [...] mg/5 m (more content not included)... Normal [facility] Comprehensive metabolic 2000 panelon 08-17-2023 Albumin [Mass/Vol] 4.1 g/dL Normal 3.9-4.9 [facility] Comment on above: Order Comment: Speci men Type: BLOOD SPECIMENOrdering Facility: [facility] Address: [address] [place] [address] Performed By: #### 2 4323-8 ####[facility] [id number] [place] [address] [place] ALP [Catalytic activity/Vol] 81 U/L Normal 34-123 [facility] Comment on above: Order Comment: Speci men Type: BLOOD SPECIMENOrdering Facility: [facility] Address: [address] [place] [address] Performed By: #### 2 4323-8 ####[facility] [id number] [place] [address] [place] ALT [Catalytic activity/Vol] 17 U/L Normal 7-38 [facility] Comment on above: Order Comment: Speci men Type: BLOOD SPECIMENOrdering Facility: [facility] Address: [address] [place] [address] Performed By: #### 2 4323-8 ####[facility] [id number] [place] [address] [place] Anion gap [Moles/Vol] 12 mmol/L Normal 9-18 [facility] Comment on above: Order Comment: Speci men Type: BLOOD SPECIMENOrdering Facility: [facility] Address: [address] [place] [address] Performed By: #### 2 4323-8 ####[facility] [id number] [place] [address] [place] AST [Catalytic activity/Vol] 14 U/L Normal 13-35 [facility] Comment on above: Order Comment: Speci men Type: BLOOD SPECIMENOrdering Facility: [facility] Address: [address] [place] [address] Performed By: #### 2 4323-8 ####[facility] [id number] [place] [address] [place] Bilirubin [Mass/Vol] 0.3 mg/dL Normal 0.2-1.3 [facility] Comment on above: Order Comment: Speci men Type: BLOOD SPECIMENOrdering Facility: [facility] Address: [address] [place] [address] Performed By: #### 2 4323-8 ####[facility] [id number] [place] [address] [place] Calcium [Mass/Vol] 9.0 mg/dL Normal 8.5-10.2 [facility] Comment on above: Order Comment: Speci men Type: BLOOD SPECIMENOrdering Facility: [facility] Address: [address] [place] [address] Performed By: #### 2 4323-8 ####[facility] [id number] [place] [address] [place] Chloride [Moles/Vol] 106 mmol/L High 97-105 [facility] Comment on above: Order Comment: Speci men Type: BLOOD SPECIMENOrdering Facility: [facility] Address: [address] [place] [address] Performed By: #### 2 4323-8 ####[facility] [id number] [place] [address] [place] CO2 [Moles/Vol] 19 mmol/L Low 22-30 [facility] Comment on above: Order Comment: Speci men Type: BLOOD SPECIMENOrdering Facility: [facility] Address: [address] [place] [address] Performed By: #### 2 4323-8 ####[facility] [id number] [place] [address] [place] Creatinine [Mass/Vol] 0.96 mg/dL Normal 0.58-0.96 [facility] Comment on above: Order Comment: Speci men Type: BLOOD SPECIMENOrdering Facility: [facility] Address: [address] [place] [address] Performed By: #### 2 4323-8 ####[facility] [id number] [place] [address] [place] Creatinine and Glomerular filtration rate.predicted panel (S/P/Bld) 74 mL/min/1.73m??? Normal >=60 [facility] Comment on above: Order Comment: Speci men Type: BLOOD SPECIMENOrdering Facility: [facility] Address: [address] [place] [address] Result Comment: Nura mated Glomerular Filtration Rate [...] actual GFR. Performed By: #### 2 4323-8 ####[facility] [id number] [place] [address] [place] Glucose [Mass/Vol] 119 mg/dL High 74-99 [facility] Comment on above: Order Comment: Speci men Type: BLOOD SPECIMENOrdering Facility: [facility] Address: [address] [place] [address] Result Comment: The [place] [employer] (ADA) provides guidance for cutoff [...] Standards of Medical Care in Diabetes 2016, [place] [employer]. Diabetes Care. 2016.39(Suppl 1). Performed By: #### 2 4323-8 ####[facility] [id number] [place] [address] [place] Potassium [Moles/Vol] 4.1 mmol/L Normal 3.7-5.1 [facility] Comment on above: Order Comment: Renetta men Type: BLOOD SPECIMENOrdering Facility: [facility] Address: [address] [place] [address] Performed By: #### 2 4323-8 ####[facility] [id number] [place] [address] [place] Protein [Mass/Vol] 7.2 g/dL Normal 6.3-8.0 [facility] Comment on above: Order Comment: Speci men Type: BLOOD SPECIMENOrdering Facility: [facility] Address: [address] [place] [address] Performed By: #### 2 4323-8 ####[facility] [id number] [place] [address] [place] Sodium [Moles/Vol] 137 mmol/L Normal 136-144 [facility] Comment on above: Order Comment: Speci men Type: BLOOD SPECIMENOrdering Facility: [facility] Address: [address] [place] [address] Performed By: #### 2 4323-8 ####[facility] [id number] [place] [address] [place] Urea nitrogen [Mass/Vol] 15 mg/dL Normal 7-21 [facility] Comment on above: Order Comment: Specmiguel men Type: BLOOD SPECIMENOrdering Facility: [facility] Address: [address] [place] [address] Performed By: #### 2 4323-8 ####[facility] [id number] [address] [place] NURSING PROGon 08-17-2023 NURSING PROG HNO ID: [id number] Author: CRICKET LAU RN Service: Nursing Author [...] restart eliquis 5mg twice a day. Normal [facility] PTT, ANTICOAGULANT THERAPYon 08-17-2023 aPTT Coag (PPP) [Time] 68.0 s High 23.0-32.4 [facility] Comment on above: Order Comment: Maikoli men Type: BLOOD SPECIMEN Ordering Facility: [facility] Address: [address] [place] [address] Performed By: #### 5 8410-2 #### [facility] CLIA [id number] [address] [place] aPTT Coag (PPP) [Time] 100.8 s High 23.0-32.4 [facility] Comment on above: Order Comment: Speci men Type: BLOOD SPECIMENOrdering Facility: [facility] Address: [address] [place] [address] Performed By: #### P TTAC ####[facility] [id number] [place] [address] [place] aPTT Coag (PPP) [Time] 78.0 s High 23.0-32.4 [facility] Comment on above: Order Comment: Speci men Type: BLOOD SPECIMENOrdering Facility: [facility] Address: [address] [place] [address] Performed By: #### P TTAC ####[facility] [id number] [place] [address] [place] aPTT PPPon 08-17-2023 aPTT Coag (PPP) [Time] 83.7 s High 23.0-32.4 [facility] Comment on above: Order Comment: Speci men Type: BLOOD SPECIMEN Ordering Facility: [facility] Address: [address] [place] [address] Performed By: #### 5 8410-2 #### [facility] CLIA [id number] [address] [place] [address] [place] ANES POSTPROC EVALon 024 ANES POSTPROC EVAL HNO ID: [id number] Author: CHITO SUTTON MD Service: ? 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 Author Type: Anesthesiologist Type: Anesthesia Preprocedure Evaluation Filed: 08/16/2023 14:23 Note Text: ANESTHESIOLOGY DAY OF SURGERY NOTE : 1975 Procedure Information Date/Time: 08/16/23 1330 Procedure: BRONCHOSCOPY FLEXIBLE ADULT (Bronchus) - Tier 2 Therapeutic- FB Removal (RLL) Heparin [facility] [phone] (PTP) [phone] Location: [facility] B-02 / [facility] H23 Surgeons: Mynor Lynn MD Estimated body mass index is 27.81 kg/m? as calculated from the following: Height as of this encounter: 162.6 cm (5' 4). Weight as of this encounter: 73.5 kg [...] and consent discussed: yes. Patient / Responsible Libertarian agrees to proceed: yes Patient / Surrogate [...] 30 minutes (more content not included)... Normal [facility] CBC panel Auto (Bld)on 08-16 Erythrocyte distribution width (RBC) [Ratio] 13.2 % Normal 11.5-15.0 [facility] Comment on above: Order Comment: Speci men Type: BLOOD SPECIMEN Ordering Facility: [facility] Address: [address] [place] [address] Performed By: #### P TTAC #### [facility] CLIA [id number] [address] [place] [address] [place] Hematocrit (Bld) [Volume fraction] 40.1 % Normal 36.0-46.0 [facility] Comment on above: Order Comment: Speci men Type: BLOOD SPECIMEN Ordering Facility: [facility] Address: [address] [place] [address] Performed By: #### P TTAC #### [facility] CLIA [id number] [address] [place] [address] [place] Hemoglobin (Bld) [Mass/Vol] 13.6 g/dL Normal 11.5-15.5 [facility] Comment on above: Order Comment: Speci men Type: BLOOD SPECIMEN Ordering Facility: [facility] Address: [address] [place] [address] Performed By: #### P TTAC #### [facility] CLIA [id number] [address] [place] [address] [place] MCH (RBC) [Entitic mass] 30.6 pg Normal 26.0-34.0 [facility] Comment on above: Order Comment: Speci men Type: BLOOD SPECIMEN Ordering Facility: [facility] Address: [address] [place] [address] Performed By: #### P TTAC #### [facility] CLIA [id number] [address] [place] [address] [place] MCHC (RBC) [Mass/Vol] 33.9 g/dL Normal 30.5-36.0 [facility] Comment on above: Order Comment: Speci men Type: BLOOD SPECIMEN Ordering Facility: [facility] Address: [address] [place] [address] Performed By: #### P TTAC #### [facility] CLIA [id number] [address] [place] [address] [place] MCV (RBC) [Entitic vol] 90.3 fL Normal 80.0-100.0 [facility] Comment on above: Order Comment: Speci men Type: BLOOD SPECIMEN Ordering Facility: [facility] Address: [address] [place] [address] Performed By: #### P TTAC #### [facility] CLIA [id number] [address] [place] [address] [place] Nucleated RBC (Bld) [#/Vol] 10*3/uL Normal <0.01 [facility] Comment on above: Order Comment: Speci men Type: BLOOD SPECIMEN Ordering Facility: [facility] Address: [address] [place] [address] Performed By: #### P TTAC #### [facility] [place] [id number] [address] [place] [address] [place] Platelet mean volume (Bld) [Entitic vol] 8.9 fL Low 9.0-12.7 [facility] Comment on above: Order Comment: Speci men Type: BLOOD SPECIMEN Ordering Facility: [facility] Address: [address] [place] [address] Performed By: #### P TTAC #### [facility] [place] [id number] [address] [place] [address] [place] Platelets (Bld) [#/Vol] 276 10*3/uL Normal 150-400 [facility] Comment on above: Order Comment: Speci men Type: BLOOD SPECIMEN Ordering Facility: [facility] Address: [address] [place] [address] Performed By: #### P TTAC #### [facility] CLIA [id number] [address] [place] [address] [place] RBC (Bld) [#/Vol] 4.44 10*6/uL Normal 3.90-5.20 [facility] Comment on above: Order Comment: Speci men Type: BLOOD SPECIMEN Ordering Facility: [facility] Address: [address] [place] [address] Performed By: #### P TTAC #### [facility] CLIA [id number] [address] [place] [address] [place] WBC (Bld) [#/Vol] 5.37 10*3/uL Normal 3.70-11.00 [facility] Comment on above: Order Comment: Speci men Type: BLOOD SPECIMEN Ordering Facility: [facility] Address: [address] [place] [address] Performed By: #### P TTAC #### [facility] CLIA [id number] [address] [place] CONSULT PROGon 08-16-2023 CONSULT PROG HNO ID: [id number] Author: ROBY AYALA MD Service: Vascular Medicine Author Type: Physician [...] PE. Plan for foreign body retrieval at main campus today. Plan: -Will remain on heparin infusion [...] (mg/dL) Date Value 06/07/2023 120 LDL Chol, Mcgrath (mg/dL) Date Value 02/15/2012 108 Triglyceride (mg/dL) Date Value 06/07/2023 156 AST (U/L) Date Value 08/14/2023 20 05/24/2021 58 NT Pro BNP (pg/mL) Date Value 06/01/2023 131 03/17/2015 71 No results found for: DIGOXIN No results found for: GFR @S6ZLDBTDM(HbA1C: 1)@ AST (U/L) Date Value 08/14/2023 20 [...] in th (more content not included)... Normal [facility] NURSING PROGon 08-16-2023 NURSING PROG HNO ID: [id number] Author: BÁRBARA POLANCO, YUNI Service: ? Author Type: Registered Nurse Type: Nursing Progress Note Filed: 08/17/2023 06:10 Note Text: Other: 1910 text page out for anticoag and diet orders 0 Phlebotomy aware of PTT due 08/17 413 text page sent to [facility] re pt's pain 0510 phlebotomy aware of 0430 PTT due. 0545 Phlebotomy states that they are short staffed and will be over to draw labs delaney. 0610 Phlebotomy on floor to draw labs Normal [facility] PTT, ANTICOAGULANT THERAPYon 08-16-2023 aPTT Coag (PPP) [Time] 40.2 s High 23.0-32.4 [facility] Comment on above: Order Comment: Speci men Type: BLOOD SPECIMEN Ordering Facility: [facility] Address: [address] [place] [address] Performed By: #### P [facility] #### [facility] CLIA [id number] [address] STATES OF [facility] SURGICAL PATHOLOGYon 024 CASE REPORT Normal [facility] Comment on above: Order Comment: Speci men Type: FOREIGN BODY SUBMITTED SPECIMENOrdering Facility: [facility] Address: [address] [place] [address] Result Comment: Surg ical Pathology Report Case: [id number] Authorizing Provider: Mynor Lynn MD Collected: 08/16/2023 03:49 PM Ordering Location: Admitting Received: 08/16/2023 10:07 PM Pathologist: Abby Devlin MD Specimen: FOREIGN BODY(S), RIGHT LOWER LUNG POST Performed By: #### S ####[facility] LABIA [id number] [place] [address] [place] CLINICAL HISTORY Normal [facility] Comment on above: Order Comment: Speci men Type: FOREIGN BODY SUBMITTED SPECIMENOrdering Facility: [facility] Address: [address] [place] [address] Result Comment: Pre- op diagnosis: Bronchiolar disease [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 R ight lower lung, foreign body, removal: - T-shaped metal foreign body (gross examination only). DANE/JENIFER/mm/08/17/2023 Performed By: #### S ####[facility] LABIA [id number] [address] OF [facility] FINAL PERFORMING LAB Normal [facility] Comment on above: Order Comment: Speci men Type: FOREIGN BODY SUBMITTED SPECIMENOrdering Facility: [facility] Address: [address] [place] [address] Result Comment: Diag nostic interpretation performed at [place] [address] CLIA# [id number] Renal Social Worker: Brodie Strickland M.D. Performed By: #### S ####[facility] LABIA [id number] [address] GROSS DESCRIPTION Normal [facility] Comment on above: Order Comment: Speci men Type: FOREIGN BODY SUBMITTED SPECIMENOrdering Facility: [facility] Address: [address] [place] [address] Result Comment: A. F OREIGN BODY(S) Received in formalin, labeled right lower lung post is a T-shaped metal post measuring 1.0 x 0.2 x 0.2 cm. An inscription is not present. Soft tissue is not attached. No gross abnormalities are identified. The specimen is submitted for gross examination only and reviewed with Dr. Devlin. JENIFER/nesha/08/17/2023 [place] [address] CLIA# [id number] Performed By: #### S ####[facility] LABIA [id number] [address] [place] ALLIED HEALTHon 08-15-2023 ALLIED HEALTH HNO ID: [id number] Author: CARLEY ALLRED RT(R) Service: Radiology Author Type: Technologist Type: [...] PATIENT PRESENTS WITH AN IMPLANTABLE OR ATTACHED DIGITAL MARKETING EXECUTIVE: No RADIOLOGY DEPARTMENT: CT; Exam(s) Completed: Abdomen/Pelvis PERIPHERAL IV DATA: Not applicable SIGNED BY: Carley Allred RT(R) August 15, 2023 3:58 AM Normal [facility] Basic metabolic 2000 panelon 08-15-2023 Anion gap [Moles/Vol] 12 mmol/L Normal 9-18 [facility] Comment on above: Order Comment: Renetta la Type: BLOOD SPECIMENOrdering Facility: [facility] Address: [address] [place] [address] Performed By: #### 2 4321-2 ####[facility] LABORATORYCLIA [id number] [place] [address] [place] Calcium [Mass/Vol] 8.8 mg/dL Normal 8.5-10.2 [facility] Comment on above: Order Comment: Renetta la Type: BLOOD SPECIMENOrdering Facility: [facility] Address: [address] [place] [address] Performed By: #### 2 4321-2 ####[facility] LABORATORYCLIA [id number] [place] [address] [place] Chloride [Moles/Vol] 105 mmol/L Normal 97-105 [facility] Comment on above: Order Comment: Maikoli men Type: BLOOD SPECIMENOrdering Facility: [facility] Address: [address] [place] [address] Performed By: #### 2 4321-2 ####[facility]ORATORYCLIA [id number] [place] [address] [place] CO2 [Moles/Vol] 22 mmol/L Normal 22-30 [facility] Comment on above: Order Comment: Renetta abhinav Type: BLOOD SPECIMENOrdering Facility: [facility] Address: [address] [place] [address] Performed By: #### 2 4321-2 ####[facility] LABORATORYCLIA [id number] [place] [address] [place] Creatinine [Mass/Vol] 0.94 mg/dL Normal 0.58-0.96 [facility] Comment on above: Order Comment: Renetta abhinav Type: BLOOD SPECIMENOrdering Facility: [facility] Address: [address] [place] [address] Performed By: #### 2 4321-2 ####[facility] LABORATORYIA [id number] [place] [address] [place] Creatinine and Glomerular filtration rate.predicted panel (S/P/Bld) 76 mL/min/1.73m??? Normal >=60 [facility] Comment on above: Order Comment: Renetta abhinav Type: BLOOD SPECIMENOrdering Facility: [facility] Address: [address] [place] [address] Result Comment: Nura mated Glomerular Filtration Rate [...] actual GFR. Performed By: #### 2 4321-2 ####[facility] LABORATORYCLIA [id number] [place] [address] [place] Glucose [Mass/Vol] 79 mg/dL Normal 74-99 [facility] Comment on above: Order Comment: Renetta la Type: BLOOD SPECIMENOrdering Facility: [facility] Address: [address] [place] [address] Result Comment: The [place] [employer] (ADA) provides guidance for cutoff [...] Standards of Medical Care in Diabetes 2016, [place] [employer]. Diabetes Care. 2016.39(Suppl 1). Performed By: #### 2 4321-2 ####[facility]ORATORYCLIA [id number] [place] [address] [place] Potassium [Moles/Vol] 4.0 mmol/L Normal 3.7-5.1 [facility] Comment on above: Order Comment: Renetta la Type: BLOOD SPECIMENOrdering Facility: [facility] Address: [address] [place] [address] Performed By: #### 2 4321-2 ####[facility] LABORATORYCLIA [id number] [place] [address] [place] Sodium [Moles/Vol] 139 mmol/L Normal 136-144 [facility] Comment on above: Order Comment: Renetta la Type: BLOOD SPECIMENOrdering Facility: [facility] Address: [address] [place] [address] Performed By: #### 2 4321-2 ####[facility]ATORYCLIA [id number] [place] [address] [place] Urea nitrogen [Mass/Vol] 19 mg/dL Normal 7-21 [facility] Comment on above: Order Comment: Maikoli abhinav Type: BLOOD SPECIMENOrdering Facility: [facility] Address: [address] [place] [address] Performed By: #### 2 4321-2 ####[facility]ATORYCLIA [id number] [place] [address] [place] CBC panel Auto (Bld)on 08-15 Erythrocyte distribution width (RBC) [Ratio] 13.2 % Normal 11.5-15.0 [facility] Comment on above: Order Comment: Speci men Type: BLOOD SPECIMENOrdering Facility: [facility] Address: [address] [place] [address] Performed By: #### 5 8410-2 ####[facility]ORYCLIA [id number] [address] [place] Hematocrit (Bld) [Volume fraction] 43.3 % Normal 36.0-46.0 [facility] Comment on above: Order Comment: Speci men Type: BLOOD SPECIMENOrdering Facility: [facility] Address: [address] [place] [address] Performed By: #### 5 8410-2 ####[facility]ORATORYCLIA [id number] [place] [address] [place] Hemoglobin (Bld) [Mass/Vol] 14.5 g/dL Normal 11.5-15.5 [facility] Comment on above: Order Comment: Speci men Type: BLOOD SPECIMENOrdering Facility: [facility] Address: [address] [place] [address] Performed By: #### 5 8410-2 ####[facility]ORATORYCLIA [id number] [place] [address] [place] MCH (RBC) [Entitic mass] 30.6 pg Normal 26.0-34.0 [facility] Comment on above: Order Comment: Speci men Type: BLOOD SPECIMENOrdering Facility: [facility] Address: [address] [place] [address] Performed By: #### 5 8410-2 ####[facility]ORYCLIA [id number] [address] [place] MCHC (RBC) [Mass/Vol] 33.5 g/dL Normal 30.5-36.0 [facility] Comment on above: Order Comment: Speci men Type: BLOOD SPECIMENOrdering Facility: [facility] Address: [address] [place] [address] Performed By: #### 5 8410-2 ####[facility]ATORYCLIA [id number] [place] [address] [place] MCV (RBC) [Entitic vol] 91.4 fL Normal 80.0-100.0 [facility] Comment on above: Order Comment: Speci men Type: BLOOD SPECIMENOrdering Facility: [facility] Address: [address] [place] [address] Performed By: #### 5 8410-2 ####[facility]ATORYCLIA [id number] [place] [address] [place] Nucleated RBC (Bld) [#/Vol] 10*3/uL Normal <0.01 [facility] Comment on above: Order Comment: Speci men Type: BLOOD SPECIMENOrdering Facility: [facility] Address: [address] [place] [address] Performed By: #### 5 8410-2 ####[facility]ORATORYCLIA [id number] [place] [address] [place] Platelet mean volume (Bld) [Entitic vol] 8.4 fL Low 9.0-12.7 [facility] Comment on above: Order Comment: Speci men Type: BLOOD SPECIMENOrdering Facility: [facility] Address: [address] [place] [address] Performed By: #### 5 8410-2 ####[facility]ATORYCLIA [id number] [place] [address] [place] Platelets (Bld) [#/Vol] 260 10*3/uL Normal 150-400 [facility] Comment on above: Order Comment: Speci men Type: BLOOD SPECIMENOrdering Facility: [facility] Address: [address] [place] [address] Performed By: #### 5 8410-2 ####[facility]ATORYCLIA [id number] [place] [address] [place] RBC (Bld) [#/Vol] 4.74 10*6/uL Normal 3.90-5.20 [facility] Comment on above: Order Comment: Speci men Type: BLOOD SPECIMENOrdering Facility: [facility] Address: [address] [place] [id number] Performed By: #### 5 8410-2 ####[facility]ATORYCLIA [id number] [place] [id number] [place] WBC (Bld) [#/Vol] 5.14 10*3/uL Normal 3.70-11.00 [facility] Comment on above: Order Comment: Speci men Type: BLOOD SPECIMENOrdering Facility: [facility] Address: [address] [id number] Performed By: #### 5 8410-2 ####[facility]ORATORYCLIA [id number] [place] [address] [facility] CONSULTon 08-15-2023 CONSULT HNO ID: [id number] Author: ROBY AYALA MD Service: Vascular Medicine Author Type: Physician [...] -- -- -- -- 162.6 cm (5' 4) -- 08/14/23 2330 150/83 36.4 ?C (97.5 ?F) Oral 60 22 97 % -- -- 08/14/23 2233 160/96 36.4 ?C (97.5 ?F) Oral 65 20 99 % -- -- 08/14/230 -- -- -- 75 18 95 % -- -- 08/14/232030 173/96 -- -- 68 16 98 % [...] (mg/dL) Date Value 06/07/2023 120 LDL Chol, Mcgrath (mg/dL) Date Value 02/15/2012 108 Triglyceride (mg/dL) [...] -- 139 (more content not included)... Normal [facility] CONSULT HNO ID: [id number] Author: MARYSOL WYNN MD Service: Pulmonary Disease Author Type: Physician Type: Consults Filed: 08/15/2023 15:37 Note Text: [facility] STAFF PHYSICIAN NOTE OF PERSONAL INVOLVEMENT IN CARE I have reviewed the progress note obtained and documented by Sully Oneill PA-C, and I personally participated in the mayorga and non-keycomponents. I have examined the patient and personally reviewed labs and imaging and discussed the case and management of the patient's care. The following comments revise or confirm relevant myaorga components of their note. IMPRESSION/PLAN: 47F who [...] discussed with IP. Patient will go for [id number] bronchoscopy by interventional pulmonary for foreign body removal tomorrow at [facility]. Please keep n.p.o. from midnight. -Last Eliquis was on 08/14 a.m. Agree with heparin drip, needs to be held 6 hours prior to procedure. -Continue Dulera, albuterol as needed. Marysol Wynn MD Pager: [phone] DATE OF SERVICE: 08/15/2023 PULMONARY CONSULT NOTE [...] Will need bronchoscopy for FB retrieval. Dr Wynn to review and assess whether advanced bronchoscopy [...] and unspecified ovari (more content not included)... [facility] CT ABD/PEL WO IVCONon 2023 CT ABD/PEL WO IVCON * * *Final Report* * * DATE OF EXAM: Aug 15 2023 4:00AM [facility] 0531 - CT ABD/PEL WO IVCON / [...] Aug 15 2023 4:28AM EST [id number] Normal [facility] HISTORY PHYSICALon HISTORY PHYSICAL HNO ID: [id number] Author: ZAINAB CROFT MD Service: Hospital Medicine [...] for sle (more content not included)... Normal [facility] HISTORY PHYSICAL HNO ID: [id number] Author: ECTOR LAZARO PA-C Service: Hospital Medicine Author Type: Physician Insurance Billing Clerk Type: H&P Filed: 08/14/2023 23:49 Note Text: [...] about a week ago she was at [facility] and noted her lip ring came out, [...] melena, hematoche (more content not included)... Normal [facility] NURSING PROGon 08-15-2023 NURSING PROG HNO ID: [id number] Author: LUDY PERDUE, RN Service: ? Author Type: Registered Nurse Type: Nursing Progress Note Filed: 08/16/2023 04:46 Note Text: [phone] Damari Rios. FYI pts PTT resulted >139.0 running hep gtt. thank you, Ludy [phone] received report from YUNI Delacruz. Pt resting [...] like me to recheck PTT? thanks, Ludy 00175 -recheck in 2 hrs, order placed 0117 restarted hep gtt @11 per pharmacy [phone] Damari Rios. pt reporting R side 9/10 back pain and PACHECO, stating other PRNs did not help, is she able to get anything else? thanks, Ludy 21536 -motrin ordered 0406 hep gtt infusion complete 408 pt reporting 8/10 back pain, medication administered per AUG Normal [facility] NURSING PROG HNO ID: [id number] Author: YVETTE PLEITEZ RN Service: ? Author Type: Registered Nurse Type: Nursing Progress Note Filed: 08/15/2023 14:55 Note Text: Spoke to YUNI Zhou at [facility]. Patient scheduled for a point to point bronchoscopy on 08/16/2023. To be NPO after midnight prior to the procedure, including tube feeds Hold anticoagulant (Heparin drip) / diuretic as directed. (Round trip) Transportation to be arranged by requesting Hospital staff. Patient to arrive at [facility] by 1130am on a stretcher/cart, escorted by medical personnel, via ambulance. Pre-op COVID testing: N/A- unless patient is symptomatic. [facility] RN will call for detailed report on the morning of the procedure. RN verbalized understanding. Normal [facility] NURSING PROG HNO ID: [id number] Author: LIZA MCCALLUM RN Service: ? Author Type: Registered Nurse Type: Nursing Progress Note Filed: 08/14/2023 22:28 Note Text: Other: 2224: pt arrived from ED with chest pain, assessment completed, iv site observed, wnl, call light, bedside tray within reach, instructed to use, verbalized understanding, bed in low position, locked. Normal [facility] PT panel Coag (PPP)on 2023 INR Coag (PPP) [Relative time] 1.0 {INR} Normal 0.9-1.3 [facility] Comment on above: Order Comment: Renetta la Type: BLOOD SPECIMEN Ordering Facility: [facility] Address: [address] [place] [id number] Result Comment: Tiesha min K Antagonist (VKA) Therapeutic Range: INR 2 to 3 (Target INR of 2.5) Note: For patients treated with VKA drugs, such as warfarin, the [place] [employer] 2012 Guideline recommends [...] [phone] Performed By: #### P TTAC #### [facility] CLIA [id number] [address] [place] [address] [place] PT Coag (PPP) [Time] 10.8 s Normal 9.7-13.0 [facility] Comment on above: Order Comment: Renetta la Type: BLOOD SPECIMEN Ordering Facility: [facility] Address: [address] [place] [address] Performed By: #### P TTAC #### [facility] CLIA [id number] [address] [place] [address] [place] PTT, ANTICOAGULANT THERAPYon 08-15-2023 aPTT Coag (PPP) [Time] s High 23.0-32.4 [facility] Comment on above: Order Comment: Speci men Type: BLOOD SPECIMENOrdering Facility: [facility] Address: [address] [place] [address] Result Comment: Samp le checked for clot. Result rechecked. Performed By: #### P TTAC ####[facility]ORYCLIA [id number] [address] [place] aPTT Coag (PPP) [Time] s High 23.0-32.4 [facility] Comment on above: Order Comment: Speci men Type: BLOOD SPECIMEN Ordering Facility: [facility] Address: [address] [place] [address] Result Comment: Samp le checked for clot. Result rechecked. Performed By: #### P TTAC #### [facility] CLIA [id number] [address] [place] [address] [place] aPTT Coag (PPP) [Time] 49.1 s High 23.0-32.4 [facility] Comment on above: Order Comment: Speci men Type: BLOOD SPECIMEN Ordering Facility: [facility] Address: [address] [place] [address] Performed By: #### P TTAC #### [facility] CLIA [id number] [address] [place] [address] [place] Urinalysis complete panel (U )on 08-15-2023 Bacteria LM.HPF (Urine sed) [#/Area] Rare Abnormal None Seen [facility] Comment on above: Order Comment: Speci men Type: URINE SPECIMENOrdering Facility: [facility] Address: [address] [place] [address] Performed By: #### 2 4356-8 ####[facility]ORYCLIA [id number] [address] [place] Bilirubin Ql (U) Negative Normal Negative [facility] Comment on above: Order Comment: Speci men Type: URINE SPECIMENOrdering Facility: [facility] Address: [address] [place] [address] Performed By: #### 2 4356-8 ####[facility]ATORYCLIA [id number] [place] [address] [place] Clarity (Unsp spec) Clear Normal Clear [facility] Comment on above: Order Comment: Speci men Type: URINE SPECIMENOrdering Facility: [facility] Address: [address] [place] [address] Performed By: #### 2 4356-8 ####[facility]ORYCLIA [id number] [place] [address] [place] Color (U) Light Yellow Normal Yellow [facility] Comment on above: Order Comment: Speci men Type: URINE SPECIMENOrdering Facility: [facility] Address: [address] [place] [address] Performed By: #### 2 4356-8 ####[facility]ORYCLIA [id number] [place] [address] [place] Epithelial cells LM.HPF (Urine sed) [#/Area] Many Normal [facility] Comment on above: Order Comment: Speci men Type: URINE SPECIMENOrdering Facility: [facility] Address: [address] [place] [address] Performed By: #### 2 4356-8 ####[facility]ORYCLIA [id number] [place] [address] [place] Glucose Test strip (U) [Mass/Vol] Negative Normal Trace, Negative [facility] Comment on above: Order Comment: Speci men Type: URINE SPECIMENOrdering Facility: [facility] Address: [address] [place] [address] Performed By: #### 2 4356-8 ####[facility]ORYCLIA [id number] [place] [address] [place] Hemoglobin Ql (U) Negative Normal Negative, Trace [facility] Comment on above: Order Comment: Speci men Type: URINE SPECIMENOrdering Facility: [facility] Address: [address] [place] [address] Performed By: #### 2 4356-8 ####[facility]ORYCLIA [id number] [place] [address] [place] Ketones Ql (U) Negative Normal Negative, Trace [facility] Comment on above: Order Comment: Speci men Type: URINE SPECIMENOrdering Facility: [facility] Address: [address] [place] [address] Performed By: #### 2 4356-8 ####[facility]ORYCLIA [id number] [place] [address] [place] Leukocyte esterase Test strip Ql (U) Negative Normal Negative, 25 Souleymane/uL [facility] Comment on above: Order Comment: Speci men Type: URINE SPECIMENOrdering Facility: [facility] Address: [address] [place] [address] Performed By: #### 2 4356-8 ####[facility]ORYCLIA [id number] [place] [address] [place] Nitrite Ql (U) Negative Normal Negative [facility] Comment on above: Order Comment: Speci men Type: URINE SPECIMENOrdering Facility: [facility] Address: [address] [place] [address] Performed By: #### 2 4356-8 ####[facility]ORYCLIA [id number] [place] [address] [place] pH (U) 6.5 [pH] Normal 5.0-8.0 [facility] Comment on above: Order Comment: Speci men Type: URINE SPECIMENOrdering Facility: [facility] Address: [address] [place] [address] Performed By: #### 2 4356-8 ####[facility]ORYCLIA [id number] [place] [address] [place] Protein (U) [Mass/Vol] 1+ Abnormal Trace , Negative [facility] Comment on above: Order Comment: Speci men Type: URINE SPECIMENOrdering Facility: [facility] Address: [address] [place] [address] Performed By: #### 2 4356-8 ####[facility]ATORYCLIA [id number] [address] [place] RBC LM.HPF (Urine sed) [#/Area] 6-10 /HPF Abnormal 0-3 /HPF [facility] Comment on above: Order Comment: Speci men Type: URINE SPECIMENOrdering Facility: [facility] Address: [address] [place] [address] Performed By: #### 2 4356-8 ####[facility]ORYCLIA [id number] [place] [address] [place] Specific gravity (U) [Rel density] 1.010 Normal 1.005-1.030 [facility] Comment on above: Order Comment: Speci men Type: URINE SPECIMENOrdering Facility: [facility] Address: [address] [place] [address] Performed By: #### 2 4356-8 ####[facility]ORATORYCLIA [id number] [address] [place] Urobilinogen Ql (U) Normal Normal Normal [facility] Comment on above: Order Comment: Speci men Type: URINE SPECIMENOrdering Facility: [facility] Address: [address] [place] [address] Performed By: #### 2 4356-8 ####[facility] LABORATORYCLIA [id number] [place] [address] [place] WBC LM.HPF (Urine sed) [#/Area] 11-25 /HPF Abnormal 0-5 /HPF [facility] Comment on above: Order Comment: Speci men Type: URINE SPECIMENOrdering Facility: [facility] Address: [address] [place] [address] Performed By: #### 2 4356-8 ####[facility]ORATORYCLIA [id number] [address] [place] ALLIED HEALTHon 08-14-2023 ALLIED HEALTH HNO ID: [id number] Author: SUPA SHERMAN RT(Manuel) Service: ? Author Type: Technologist Type: Allied [...] PATIENT PRESENTS WITH AN IMPLANTABLE OR ATTACHED DIGITAL MARKETING EXECUTIVE: No ALLERGIES: Reviewed and unchanged CONTRAST ALLERGY: [...] PERIPHERAL IV DATA: Inpatient - refer to [facility] documentation RADIOLOGY DEPARTMENT: CT; Exam(s) Completed: PE Study SIGNATURE: RT Guicho(R) PATIENT NAME: Damari Rios DATE: August 14, 2023 TIME: 5:53 PM Normal [facility] CBC W Auto Differential pane l (Bld)on 08-14-2023 Basophils (Bld) [#/Vol] 10*3/uL Normal <0.11 [facility] Comment on above: Order Comment: Speci men Type: BLOOD SPECIMENOrdering Facility: [facility] Address: [address] [place] [address] Performed By: #### 5 7021-8 ####[facility]ATORYCLIA [id number] [place] [id number] [place] Basophils/100 WBC (Bld) 0.3 % Normal [facility] Comment on above: Order Comment: Speci men Type: BLOOD SPECIMENOrdering Facility: [facility] Address: [address] [place] [address] Performed By: #### 5 7021-8 ####[facility]ORYCLIA [id number] [place] [address] [place] Differential cell count method Nom (Bld) Auto Normal [facility] Comment on above: Order Comment: Speci men Type: BLOOD SPECIMENOrdering Facility: [facility] Address: [address] [place] [address] Performed By: #### 5 7021-8 ####[facility]ORYCLIA [id number] [place] [address] [place] Eosinophils (Bld) [#/Vol] 0.11 10*3/uL Normal <0.46 [facility] Comment on above: Order Comment: Speci men Type: BLOOD SPECIMENOrdering Facility: [facility] Address: [address] [place] [address] Performed By: #### 5 7021-8 ####[facility]ORYCLIA [id number] [place] [address] [place] Eosinophils/100 WBC (Bld) 1.8 % Normal [facility] Comment on above: Order Comment: Speci men Type: BLOOD SPECIMENOrdering Facility: [facility] Address: [address] [place] [address] Performed By: #### 5 7021-8 ####[facility] LABORATORYCLIA [id number] [place] [address] [place] Erythrocyte distribution width (RBC) [Ratio] 13.3 % Normal 11.5-15.0 [facility] Comment on above: Order Comment: Speci men Type: BLOOD SPECIMENOrdering Facility: [facility] Address: [address] [place] [address] Performed By: #### 5 7021-8 ####[facility] LABORATORYCLIA [id number] [place] [address] [place] Hematocrit (Bld) [Volume fraction] 45.2 % Normal 36.0-46.0 [facility] Comment on above: Order Comment: Speci men Type: BLOOD SPECIMENOrdering Facility: [facility] Address: [address] [place] [address] Performed By: #### 5 7021-8 ####[facility] LABORATORYCLIA [id number] [place] [address] [place] Hemoglobin (Bld) [Mass/Vol] 15.1 g/dL Normal 11.5-15.5 [facility] Comment on above: Order Comment: Speci men Type: BLOOD SPECIMENOrdering Facility: [facility] Address: [address] [place] [address] Performed By: #### 5 7021-8 ####[facility] LABORATORYCLIA [id number] [place] [address] [place] Immature granulocytes (Bld) [#/Vol] 10*3/uL Normal <0.10 [facility] Comment on above: Order Comment: Speci men Type: BLOOD SPECIMENOrdering Facility: [facility] Address: [address] [place] [address] Performed By: #### 5 7021-8 ####[facility] LABORATORYCLIA [id number] [place] [address] [place] Immature granulocytes/100 WBC (Bld) 0.3 % Normal [facility] Comment on above: Order Comment: Speci men Type: BLOOD SPECIMENOrdering Facility: [facility] Address: [address] [place] [address] Performed By: #### 5 7021-8 ####[facility] LABORATORYCLIA [id number] [place] [address] [place] Lymphocytes (Bld) [#/Vol] 1.72 10*3/uL Normal 1.00-4.00 [facility] Comment on above: Order Comment: Speci men Type: BLOOD SPECIMENOrdering Facility: [facility] Address: [address] [place] [address] Performed By: #### 5 7021-8 ####[facility] LABORATORYCLIA [id number] [place] [address] [place] Lymphocytes/100 WBC (Bld) 28.6 % Normal [facility] Comment on above: Order Comment: Speci men Type: BLOOD SPECIMENOrdering Facility: [facility] Address: [address] [place] [address] Performed By: #### 5 7021-8 ####[facility] LABORATORYCLIA [id number] [place] [address] [place] MCH (RBC) [Entitic mass] 30.4 pg Normal 26.0-34.0 [facility] Comment on above: Order Comment: Speci men Type: BLOOD SPECIMENOrdering Facility: [facility] Address: [address] [place] [address] Performed By: #### 5 7021-8 ####[facility] LABORATORYCLIA [id number] [place] [address] [place] MCHC (RBC) [Mass/Vol] 33.4 g/dL Normal 30.5-36.0 [facility] Comment on above: Order Comment: Speci men Type: BLOOD SPECIMENOrdering Facility: [facility] Address: [address] [place] [address] Performed By: #### 5 7021-8 ####[facility] LABORATORYCLIA [id number] [place] [address] [place] MCV (RBC) [Entitic vol] 91.1 fL Normal 80.0-100.0 [facility] Comment on above: Order Comment: Speci men Type: BLOOD SPECIMENOrdering Facility: [facility] Address: [address] [place] [address] Performed By: #### 5 7021-8 ####[facility] LABORATORYCLIA [id number] [place] [address] [place] Monocytes (Bld) [#/Vol] 0.35 10*3/uL Normal <0.87 [facility] Comment on above: Order Comment: Speci men Type: BLOOD SPECIMENOrdering Facility: [facility] Address: [address] [place] [address] Performed By: #### 5 7021-8 ####[facility] LABORATORYCLIA [id number] [place] [address] [place] Monocytes/100 WBC (Bld) 5.8 % Normal [facility] Comment on above: Order Comment: Speci men Type: BLOOD SPECIMENOrdering Facility: [facility] Address: [address] [place] [address] Performed By: #### 5 7021-8 ####[facility] LABORATORYCLIA [id number] [place] [address] [place] Neutrophils (Bld) [#/Vol] 3.79 10*3/uL Normal 1.45-7.50 [facility] Comment on above: Order Comment: Speci men Type: BLOOD SPECIMENOrdering Facility: [facility] Address: [address] [place] [address] Performed By: #### 5 7021-8 ####[facility] LABORATORYCLIA [id number] [place] [address] [place] Neutrophils/100 WBC (Bld) 63.2 % Normal [facility] Comment on above: Order Comment: Speci men Type: BLOOD SPECIMENOrdering Facility: [facility] Address: [address] [place] [address] Performed By: #### 5 7021-8 ####[facility] LABORATORYCLIA [id number] [place] [address] [place] Nucleated RBC (Bld) [#/Vol] 10*3/uL Normal <0.01 [facility] Comment on above: Order Comment: Speci men Type: BLOOD SPECIMENOrdering Facility: [facility] Address: [address] [place] [address] Performed By: #### 5 7021-8 ####[facility] LABORATORYCLIA [id number] [place] [address] [place] Nucleated RBC/100 WBC (Bld) [Ratio] 0.0 /100 WBC Normal [facility] Comment on above: Order Comment: Speci men Type: BLOOD SPECIMENOrdering Facility: [facility] Address: [address] [place] [address] Performed By: #### 5 7021-8 ####[facility] LABORATORYCLIA [id number] [place] [address] [place] Platelet mean volume (Bld) [Entitic vol] 9.0 fL Normal 9.0-12.7 [facility] Comment on above: Order Comment: Speci men Type: BLOOD SPECIMENOrdering Facility: [facility] Address: [address] [place] [address] Performed By: #### 5 7021-8 ####[facility] LABORATORYCLIA [id number] [place] [address] [place] Platelets (Bld) [#/Vol] 330 10*3/uL Normal 150-400 [facility] Comment on above: Order Comment: Speci men Type: BLOOD SPECIMENOrdering Facility: [facility] Address: [facility] [place] [address] Performed By: #### 5 7021-8 ####[facility] LABORATORYCLIA [id number] [place] [address] [place] RBC (Bld) [#/Vol] 4.96 10*6/uL Normal 3.90-5.20 [facility] Comment on above: Order Comment: Speci men Type: BLOOD SPECIMENOrdering Facility: [facility] Address: [facility] [place] [address] Performed By: #### 5 7021-8 ####[facility] LABORATORYCLIA [id number] [place] [address] [place] WBC (Bld) [#/Vol] 6.01 10*3/uL Normal 3.70-11.00 [facility] Comment on above: Order Comment: Speci men Type: BLOOD SPECIMENOrdering Facility: [facility] Address: [facility] [place] [address] Performed By: #### 5 7021-8 ####[facility] LABORATORYCLIA [id number] [place] [address] [place] CT CHEST W IVCON PEon 2023 CT CHEST W IVCON PE * * *Final Report* * * DATE OF EXAM: Aug 14 2023 5:52PM [facility] 0540 - CT CHEST W IVCON PE [...] Aug 14 2023 6:19PM EST [id number] Normal [facility] Comprehensive metabolic 2000 panelon 08-14-2023 Albumin [Mass/Vol] 4.1 g/dL Normal 3.9-4.9 [facility] Comment on above: Order Comment: Speci men Type: BLOOD SPECIMENOrdering Facility: [facility] Address: [address] [place] [address] Performed By: #### 2 4323-8, 3040-3, HSTNT ####[facility] LABORATORYCLIA [id number] [place] [address] [place] ALP [Catalytic activity/Vol] 101 U/L Normal 34-123 [facility] Comment on above: Order Comment: Speci men Type: BLOOD SPECIMENOrdering Facility: [facility] Address: [address] [place] [address] Performed By: #### 2 4323-8, 3040-3, HSTNT ####[facility] LABORATORYCLIA [id number] [place] [address] [place] ALT [Catalytic activity/Vol] 21 U/L Normal 7-38 [facility] Comment on above: Order Comment: Speci men Type: BLOOD SPECIMENOrdering Facility: [facility] Address: [address] [place] [address] Performed By: #### 2 4323-8, 3040-3, HSTNT ####[facility] LABORATORYCLIA [id number] [place] [address] [place] Anion gap [Moles/Vol] 10 mmol/L Normal 9-18 [facility] Comment on above: Order Comment: Speci men Type: BLOOD SPECIMENOrdering Facility: [facility] Address: [address] [place] [address] Performed By: #### 2 4323-8, 3040-3, HSTNT ####[facility] LABORATORYCLIA [id number] [place] [id number] [place] AST [Catalytic activity/Vol] 20 U/L Normal 13-35 [facility] Comment on above: Order Comment: Speci men Type: BLOOD SPECIMENOrdering Facility: [facility] Address: [facility] [place] [address] Performed By: #### 2 4323-8, 3040-3, HSTNT ####[facility] LABORATORYCLIA [id number] [place] [address] [place] Bilirubin [Mass/Vol] 0.6 mg/dL Normal 0.2-1.3 [facility] Comment on above: Order Comment: Speci men Type: BLOOD SPECIMENOrdering Facility: [facility] Address: [facility] [place] [address] Performed By: #### 2 4323-8, 3040-3, HSTNT ####[facility] LABORATORYCLIA [id number] [place] [address] [place] Calcium [Mass/Vol] 8.8 mg/dL Normal 8.5-10.2 [facility] Comment on above: Order Comment: Speci men Type: BLOOD SPECIMENOrdering Facility: [facility] Address: [facility] [place] [address] Performed By: #### 2 4323-8, 3040-3, HSTNT ####[facility] LABORATORYCLIA [id number] [place] [id number] [place] Chloride [Moles/Vol] 103 mmol/L Normal 97-105 [facility] Comment on above: Order Comment: Speci men Type: BLOOD SPECIMENOrdering Facility: [facility] Address: [facility] [place] [address] Performed By: #### 2 4323-8, 3040-3, HSTNT ####[facility] LABORATORYCLIA [id number] [place] [id number] [place] CO2 [Moles/Vol] 24 mmol/L Normal 22-30 [facility] Comment on above: Order Comment: Maikoli abhinav Type: BLOOD SPECIMENOrdering Facility: [facility] Address: [address] [place] [address] Performed By: #### 2 4323-8, 3040-3, HSTNT ####[facility] LABORATORYCLIA [id number] [place] [address] [place] Creatinine [Mass/Vol] 0.96 mg/dL Normal 0.58-0.96 [facility] Comment on above: Order Comment: Maikoli men Type: BLOOD SPECIMENOrdering Facility: [facility] Address: [address] [place] [address] Performed By: #### 2 4323-8, 3040-3, HSTNT ####[facility] LABORATORYCLIA [id number] [address] STATES OF [facility] Creatinine and Glomerular filtration rate.predicted panel (S/P/Bld) 74 mL/min/1.73m??? Normal >=60 [facility] Comment on above: Order Comment: Renetta la Type: BLOOD SPECIMENOrdering Facility: [facility] Address: [address] [place] [address] Result Comment: Nura mated Glomerular Filtration Rate [...] Performed By: #### 2 4323-8, 3040-3, HSTNT ####[facility] LABORATORYCLIA [id number] [place] [address] [place] Glucose [Mass/Vol] 86 mg/dL Normal 74-99 [facility] Comment on above: Order Comment: Maikoli bahinav Type: BLOOD SPECIMENOrdering Facility: [facility] Address: [address] [place] [address] Result Comment: The [place] [employer] (ADA) provides guidance for cutoff [...] Standards of Medical Care in Diabetes 2016, [place] [employer]. Diabetes Care. 2016.39(Suppl 1). Performed By: #### 2 4323-8, 3040-3, HSTNT ####[facility] LABORATORYCLIA [id number] [place] [address] [place] Potassium [Moles/Vol] 3.6 mmol/L Low 3.7-5.1 [facility] Comment on above: Order Comment: Maikoli men Type: BLOOD SPECIMENOrdering Facility: [facility] Address: [address] [place] [address] Performed By: #### 2 4323-8, 3040-3, HSTNT ####[facility] LABORATORYCLIA [id number] [place] [address] [place] Protein [Mass/Vol] 7.0 g/dL Normal 6.3-8.0 [facility] Comment on above: Order Comment: Speci men Type: BLOOD SPECIMENOrdering Facility: [facility] Address: [address] [place] [address] Performed By: #### 2 4323-8, 3040-3, HSTNT ####[facility]ORATORYCLIA [id number] [place] [id number] [place] Sodium [Moles/Vol] 137 mmol/L Normal 136-144 [facility] Comment on above: Order Comment: Speci men Type: BLOOD SPECIMENOrdering Facility: [facility] Address: [address] [place] [address] Performed By: #### 2 4323-8, 3040-3, HSTNT ####[facility] LABORATORYCLIA [id number] [place] [address] [place] Urea nitrogen [Mass/Vol] 13 mg/dL Normal 7-21 [facility] Comment on above: Order Comment: Speci men Type: BLOOD SPECIMENOrdering Facility: [facility] Address: [address] [place] [address] Performed By: #### 2 4323-8, 3040-3, HSTNT ####[facility] LABORATORYCLIA [id number] [place] [address] [place] Albumin [Mass/Vol] 4.4 g/dL Normal 3.9-4.9 [facility] Comment on above: Order Comment: Speci men Type: BLOOD SPECIMENOrdering Facility: [facility] Address: [address] [place] [address] Performed By: #### 2 4323-8, HSTNT, ####[facility] LABORATORYCLIA [id number] [place] [address] [place] ALP [Catalytic activity/Vol] 100 U/L Normal 34-123 [facility] Comment on above: Order Comment: Speci men Type: BLOOD SPECIMENOrdering Facility: [facility] Address: [address] [place] [address] Performed By: #### 2 4323-8, HSTNT, ####[facility] LABORATORYCLIA [id number] [place] [address] [place] ALT [Catalytic activity/Vol] Normal [facility] Comment on above: Order Comment: Speci men Type: BLOOD SPECIMENOrdering Facility: [facility] Address: [address] [place] [address] Result Comment: Unab le to assay due to interference from hemolysis. Suggest reorder as clinically indicated. Performed By: #### 2 4323-8, HSTNT, 55441-8 ####[facility] LABORATORYCLIA [id number] [place] [address] [place] Anion gap [Moles/Vol] 11 mmol/L Normal 9-18 [facility] Comment on above: Order Comment: Speci men Type: BLOOD SPECIMENOrdering Facility: [facility] Address: [address] [place] [address] Performed By: #### 2 4323-8, HSTNT, ####[facility] LABORATORYCLIA [id number] [place] [address] [place] AST [Catalytic activity/Vol] Normal [facility] Comment on above: Order Comment: Speci men Type: BLOOD SPECIMENOrdering Facility: [facility] Address: [address] [place] [address] Result Comment: Unab le to assay due to interference from hemolysis. Suggest reorder as clinically indicated. Performed By: #### 2 4323-8, HSTNT, ####[facility] LABORATORYCLIA [id number] [place] [address] [place] Bilirubin [Mass/Vol] 0.6 mg/dL Normal 0.2-1.3 [facility] Comment on above: Order Comment: Speci men Type: BLOOD SPECIMENOrdering Facility: [facility] Address: [address] [place] [address] Performed By: #### 2 4323-8, HSTNT, ####[facility] LABORATORYCLIA [id number] [place] [address] [place] Calcium [Mass/Vol] 8.8 mg/dL Normal 8.5-10.2 [facility] Comment on above: Order Comment: Speci men Type: BLOOD SPECIMENOrdering Facility: [facility] Address: [address] [place] [address] Performed By: #### 2 4323-8, HSTNT, ####[facility]ORATORYCLIA [id number] [place] [address] [place] Chloride [Moles/Vol] 101 mmol/L Normal 97-105 [facility] Comment on above: Order Comment: Speci men Type: BLOOD SPECIMENOrdering Facility: [facility] Address: [address] [place] [address] Performed By: #### 2 4323-8, HSTNT, ####[facility] LABORATORYCLIA [id number] [place] [id number] [place] CO2 [Moles/Vol] 25 mmol/L Normal 22-30 [facility] Comment on above: Order Comment: Speci men Type: BLOOD SPECIMENOrdering Facility: [facility] Address: [address] [place] [address] Performed By: #### 2 4323-8, HSTNT, ####[facility] LABORATORYCLIA [id number] [place] [address] [place] Creatinine [Mass/Vol] 0.91 mg/dL Normal 0.58-0.96 [facility] Comment on above: Order Comment: Speci men Type: BLOOD SPECIMENOrdering Facility: [facility] Address: [address] [place] [address] Performed By: #### 2 4323-8, HSTNT, ####[facility] LABORATORYCLIA [id number] [place] [address] [place] Creatinine and Glomerular filtration rate.predicted panel (S/P/Bld) 79 mL/min/1.73m??? Normal >=60 [facility] Comment on above: Order Comment: Speci men Type: BLOOD SPECIMENOrdering Facility: [facility] Address: [address] [place] [address] Result Comment: Nura mated Glomerular Filtration Rate [...] GFR. Performed By: #### 2 4323-8, HSTNT, ####[facility] LABORATORYCLIA [id number] [place] [address] [place] Glucose [Mass/Vol] 85 mg/dL Normal 74-99 [facility] Comment on above: Order Comment: Renetta la Type: BLOOD SPECIMENOrdering Facility: [facility] Address: [address] [place] [address] Result Comment: The [place] Diabetes [employer] (ADA) provides guidance for cutoff [...] Standards of Medical Care in Diabetes 2016, [place] [employer]. Diabetes Care. 2016.39(Suppl 1). Performed By: #### 2 4323-8, HSTNT, ####[facility] LABORATORYCLIA [id number] [place] [address] [place] Potassium [Moles/Vol] Normal [facility] Comment on above: Order Comment: Renetta la Type: BLOOD SPECIMENOrdering Facility: [facility] Address: [address] [place] [address] Result Comment: Unab le to assay due to interference from hemolysis. Suggest reorder as clinically indicated. Performed By: #### 2 4323-8, HSTNT, ####[facility] LABORATORYCLIA [id number] [place] [address] [place] Protein [Mass/Vol] 7.6 g/dL Normal 6.3-8.0 [facility] Comment on above: Order Comment: Renetta la Type: BLOOD SPECIMENOrdering Facility: [facility] Address: [address] [place] [address] Performed By: #### 2 4323-8, HSTNT, ####[facility] LABORATORYCLIA [id number] [place] [address] [place] Sodium [Moles/Vol] 137 mmol/L Normal 136-144 [facility] Comment on above: Order Comment: Speci men Type: BLOOD SPECIMENOrdering Facility: [facility] Address: [address] [place] [address] Performed By: #### 2 4323-8, HSTNT, 41314-5 ####[facility] LABORATORYCLIA [id number] [place] [id number] [place] Urea nitrogen [Mass/Vol] 14 mg/dL Normal 7-21 [facility] Comment on above: Order Comment: Speci men Type: BLOOD SPECIMENOrdering Facility: [facility] Address: [address] [place] [address] Performed By: #### 2 4323-8, HSTNT, 44565-5 ####[facility] LABORATORYCLIA [id number] [address] [place] ECG COMPLETEon 08-14-2023 ECG COMPLETE Ventricular Rate : 7 3 BPM Atrial Rate : 73 BPM P-R Interval : 152 ms QRS Duration : 76 ms Q-T Interval : 350 ms QTC Calculation(Bazett) : 385 ms Calculated P Lima : 66 degrees Calculated R Lima : 48 degrees Calculated T Lima : 101 degrees NORMAL SINUS RHYTHM NONSPECIFIC T WAVE ABNORMALITY ABNORMAL ECG WHEN COMPARED WITH ECG OF 09-JUN-2023 11:16, NO SIGNIFICANT CHANGE WAS FOUND CONFIRMED 2147 Confirmed by DO FLORES STEPHANIE ([id number]), film editor supervisor LAKISHA WALSH ([id number]) on 08/16/2023 10:59:59 AM NAME : DAMARI RIOS PID : [id number] : 1975 Gender : Female Race : ORD : [id number] Procedure Date : Aug 14 2023 13:11:33 Edit Date : Aug 16 2023 11:00:01 Diagnosis: NORMAL SINUS RHYTHM NONSPECIFIC T WAVE ABNORMALITY ABNORMAL ECG WHEN COMPARED WITH ECG OF 09-JUN-2023 11:16, NO SIGNIFICANT CHANGE WAS FOUND CONFIRMED 2147 Confirmed by DO FLORES STEPHANIE ([id number]), film editor supervisor LAKISHA WALSH ([id number]) on 08/16/2023 10:59:59 AM Test Reason : Chest Pain Location : 26 : ER L Overread By : DO FLORES STEPHANIE Edited By : LAKISHA WALSH Referred By : , Acquired by : , [facility] ED NOTEon 08-14-2023 ED NOTE HNO ID: [id number] Author: NIRMALA IBANEZ RN Service: ? Author Type: Registered Nurse Type: ED Notes Filed: 08/14/2023 19:40 Note Text: Bed: ED-28 Expected date: Expected time: Means of arrival: Comments: triage [facility] ED NOTE HNO ID: [id number] Author: ANTHONY SRINIVASAN RN Service: ? Author Type: Registered Nurse [...] history and POTS. Patient ambulatory and AANDOx3. [facility] ED PROV NOTEon 08-14-2023 ED PROV NOTE HNO ID: [id number] Author: SALUD FLORES DO Service: Emergency Medicine Author Type: Physician [...] SINGLE/MULTIPLE 04/03/2012 mild gastritis - HYSTERECTOMY HX 2016 - LAPAROSCOPY SURG CHOLECYSTECTOMY 1999 Cholecystectomy, lap [...] TROPONIN T (more content not included)... Normal [facility] ED Triage Noteon 08-14-2023 ED Triage Note HNO ID: [id number] Author: ELLIS MÉNDEZ DO Service: Emergency Medicine [...] pulmonary embolism Z86.711 SIGNATURE: Ellis Méndez DO [facility] FLUABV+SARS-CoV-2+RSV Pnl Re sp ANDRY+probeon 08-14-2023 FLUABV+SARS-CoV-2+RSV Pnl Resp ANDRY+probe COVID 19 RESULT: Not detected The method used is RT-PCR or an equivalent NAAT method. Reference Range(the expected result in uninfected individuals): Not detected INFLUENZA A PCR: Not detected INFLUENZA B PCR: Not detected RSV PCR: Not detected Normal [facility] Comment on above: Performed By: #### 9 5941-1 ####[facility] LABORATORYCLIA [id number] [place] [address] [place] HCG QUAL BLDon 08-14-2023 HCG, QUALITATIVE Negative Normal Negative [facility] Comment on above: Order Comment: Renetta la Type: BLOOD SPECIMENOrdering Facility: [facility] Address: [address] [place] [address] Performed By: #### H CG ####[facility] LABORATORYCLIA [id number] [place] [address] [place] HIGH SENSITIVITY TROPONIN To n 08-14-2023 Troponin T.cardiac High sensitivity method [Mass/Vol] <6 Normal <12 [facility] Comment on above: Order Comment: Renetta la Type: BLOOD SPECIMENOrdering Facility: [facility] Address: [address] [place] [address] Result Comment: When assessing risk for acute [...] Performed By: #### 2 4323-8, 3040-3, HSTNT ####[facility]IA [id number] [place] [address] [place] Troponin T.cardiac High sensitivity method [Mass/Vol] <6 Normal <12 [facility] Comment on above: Order Comment: Renetta la Type: BLOOD SPECIMENOrdering Facility: [facility] Address: [address] [place] [address] Result Comment: When assessing risk for acute [...] day MACE. Performed By: #### H STNT ####[facility]ORYCLIA [id number] [place] [address] [place] Troponin T.cardiac High sensitivity method [Mass/Vol] Normal [facility] Comment on above: Order Comment: Speci men Type: BLOOD SPECIMENOrdering Facility: [facility] Address: [address] [place] [address] Result Comment: Unab le to assay due to interference from hemolysis. Suggest reorder as clinically indicated. Performed By: #### 2 4323-8, HSTNT, 85419-9 ####[facility]ORATORYCLIA [id number] [place] [address] [place] Lipase SerPl-cCncon 08-14-19 Lipase [Catalytic activity/Vol] 20 U/L Normal 16-61 [facility] Comment on above: Order Comment: Renetta la Type: BLOOD SPECIMENOrdering Facility: [facility] Address: [address] [place] [address] Performed By: #### 2 4323-8, 3040-3, HSTNT ####[facility]ORYCLIA [id number] [place] [address] [place] Magnesium SerPl-mCncon 08-14 Magnesium [Mass/Vol] 2.2 mg/dL Normal 1.7-2.3 [facility] Comment on above: Order Comment: Maikoli men Type: BLOOD SPECIMENOrdering Facility: [facility] Address: [address] [place] [address] Performed By: #### 2 4323-8, HSTNT, 63259-5 ####[facility]ORYCLIA [id number] [place] [address] [place] ALLIED HEALTHon 06-11-2023 ALLIED HEALTH HNO ID: [id number] Author: Lydia Mcgraw Chaplain Service: ? Author Type: Type: Allied Health Filed: 06/11/2023 12:00 PM [...] her -- and her family -- well. Signature: Chaplain Jill To contact the Spiritual Care Department: Please call [phone] [place] [phone]. Thank you for the opportunity to be of service. This is an electronically created document. IF PRINTED, PLEASE DO NOT REMOVE FROM THE CHART OR MODIFY PRINTED COPY. Normal [facility] Basic metabolic 2000 panelon 06-11-2023 Anion gap [Moles/Vol] 12 mmol/L Normal 9-18 [facility] Comment on above: Order Comment: Renetta la Type: BLOOD SPECIMEN Ordering Facility: [facility] Address: [address] [place] [address] Performed By: #### 5 8410-2 #### [facility] CLIA [id number] [address] [place] [address] [place] Calcium [Mass/Vol] 9.1 mg/dL Normal 8.5-10.2 [facility] Comment on above: Order Comment: Renetta la Type: BLOOD SPECIMEN Ordering Facility: [facility] Address: [address] [place] [address] Performed By: #### 5 8410-2 #### [facility] CLIA [id number] [address] [place] [address] [place] Chloride [Moles/Vol] 101 mmol/L Normal 97-105 [facility] Comment on above: Order Comment: Renetta la Type: BLOOD SPECIMEN Ordering Facility: [facility] Address: [address] [place] [address] Performed By: #### 5 8410-2 #### [facility] CLIA [id number] [address] [place] [address] [place] CO2 [Moles/Vol] 24 mmol/L Normal 22-30 [facility] Comment on above: Order Comment: Renetta la Type: BLOOD SPECIMEN Ordering Facility: [facility] Address: [address] [place] [address] Performed By: #### 5 8410-2 #### [facility] CLIA [id number] [address] [place] [address] [place] Creatinine [Mass/Vol] 0.95 mg/dL Normal 0.58-0.96 [facility] Comment on above: Order Comment: Maikoli men Type: BLOOD SPECIMEN Ordering Facility: [facility] Address: [address] [place] [address] Performed By: #### 5 8410-2 #### [facility] CLIA [id number] [address] [place] [address] [place] Creatinine and Glomerular filtration rate.predicted panel (S/P/Bld) 75 mL/min/1.73m??? Normal >=60 [facility] Comment on above: Order Comment: Renetta la Type: BLOOD SPECIMEN Ordering Facility: [facility] Address: [address] [place] [address] Result Comment: Nura mated Glomerular Filtration Rate [...] GFR. Performed By: #### 5 8410-2 #### [facility] CLIA [id number] [address] [place] [address] [place] Glucose [Mass/Vol] 103 mg/dL High 74-99 [facility] Comment on above: Order Comment: Renetta la Type: BLOOD SPECIMEN Ordering Facility: [facility] Address: [address] [place] [address] Result Comment: The [place] [employer] (ADA) provides guidance for cutoff [...] Standards of Medical Care in Diabetes 2016, [place] [employer]. Diabetes Care. 2016.39(Suppl 1). Performed By: #### 5 8410-2 #### [facility] CLIA [id number] [address] [place] [address] [place] Potassium [Moles/Vol] 3.9 mmol/L Normal 3.7-5.1 [facility] Comment on above: Order Comment: Renetta la Type: BLOOD SPECIMEN Ordering Facility: [facility] Address: [address] [place] [address] Performed By: #### 5 8410-2 #### [facility] CLIA [id number] [address] [place] [address] [place] Sodium [Moles/Vol] 137 mmol/L Normal 136-144 [facility] Comment on above: Order Comment: Renetta la Type: BLOOD SPECIMEN Ordering Facility: [facility] Address: [address] [place] [address] Performed By: #### 5 8410-2 #### [facility] CLIA [id number] [address] [place] [address] [place] Urea nitrogen [Mass/Vol] 19 mg/dL Normal 7-21 [facility] Comment on above: Order Comment: Speci men Type: BLOOD SPECIMEN Ordering Facility: [facility] Address: [address] [place] [address] Performed By: #### 5 8410-2 #### [facility] CLIA [id number] [address] [place] [address] [place] CBC panel Auto (Bld)on 06-11 Erythrocyte distribution width (RBC) [Ratio] 12.8 % Normal 11.5-15.0 [facility] Comment on above: Order Comment: Speci men Type: BLOOD SPECIMENOrdering Facility: [facility] Address: [address] [place] [address] Performed By: #### 5 8410-2 ####[facility]CLIA [id number] [place] [address] [place] Hematocrit (Bld) [Volume fraction] 40.4 % Normal 36.0-46.0 [facility] Comment on above: Order Comment: Speci men Type: BLOOD SPECIMENOrdering Facility: [facility] Address: [address] [place] [address] Performed By: #### 5 8410-2 ####[facility]ORYCLIA [id number] [place] [address] [place] Hemoglobin (Bld) [Mass/Vol] 13.9 g/dL Normal 11.5-15.5 [facility] Comment on above: Order Comment: Speci men Type: BLOOD SPECIMENOrdering Facility: [facility] Address: [address] [place] [address] Performed By: #### 5 8410-2 ####[facility]ORYCLIA [id number] [place] [address] [place] MCH (RBC) [Entitic mass] 31.0 pg Normal 26.0-34.0 [facility] Comment on above: Order Comment: Speci men Type: BLOOD SPECIMENOrdering Facility: [facility] Address: [address] [place] [address] Performed By: #### 5 8410-2 ####[facility]ORYCLIA [id number] [place] [address] [place] MCHC (RBC) [Mass/Vol] 34.4 g/dL Normal 30.5-36.0 [facility] Comment on above: Order Comment: Speci men Type: BLOOD SPECIMENOrdering Facility: [facility] Address: [address] [place] [address] Performed By: #### 5 8410-2 ####[facility]ORYCLIA [id number] [place] [address] [place] MCV (RBC) [Entitic vol] 90.2 fL Normal 80.0-100.0 [facility] Comment on above: Order Comment: Speci men Type: BLOOD SPECIMENOrdering Facility: [facility] Address: [address] [place] [address] Performed By: #### 5 8410-2 ####[facility]CLIA [id number] [place] [address] [place] Nucleated RBC (Bld) [#/Vol] 10*3/uL Normal <0.01 [facility] Comment on above: Order Comment: Speci men Type: BLOOD SPECIMENOrdering Facility: [facility] Address: [address] [place] [address] Performed By: #### 5 8410-2 ####[facility]ORYCLIA [id number] [place] [address] [place] Platelet mean volume (Bld) [Entitic vol] 8.6 fL Low 9.0-12.7 [facility] Comment on above: Order Comment: Speci men Type: BLOOD SPECIMENOrdering Facility: [facility] Address: [address] [place] [address] Performed By: #### 5 8410-2 ####[facility]ORYCLIA [id number] [place] [address] [place] Platelets (Bld) [#/Vol] 321 10*3/uL Normal 150-400 [facility] Comment on above: Order Comment: Speci men Type: BLOOD SPECIMENOrdering Facility: [facility] Address: [address] [place] [address] Performed By: #### 5 8410-2 ####[facility]ORYCLIA [id number] [place] [address] [place] RBC (Bld) [#/Vol] 4.48 10*6/uL Normal 3.90-5.20 [facility] Comment on above: Order Comment: Speci men Type: BLOOD SPECIMENOrdering Facility: [facility] Address: [address] [place] [address] Performed By: #### 5 8410-2 ####[facility]ORYCLIA [id number] [place] [address] [place] WBC (Bld) [#/Vol] 8.72 10*3/uL Normal 3.70-11.00 [facility] Comment on above: Order Comment: Speci men Type: BLOOD SPECIMENOrdering Facility: [facility] Address: [address] [place] [address] Performed By: #### 5 8410-2 ####[facility]ORYCLIA [id number] [address] CNDSon 06-11-2023 CNDS HNO ID: [id number] Author: Zainab Croft V, MD Service: General [...] Croft V, MD Primary Care Provider: Kimberly Cason MD My Medical Team Members: Treatment Team: [...] 3 months-please follow-up outpatient with vascular medicine. SOCIAL SERVICES COUNSELOR was consulted for follow-up after a salpingo-oophorectomy -no further evaluation was done and you are to follow-up outpatient with SOCIAL SERVICES COUNSELOR. Please also follow-up with your primary care [...] Adriana Martinez MD Nurse Practitioner: Anya Howard APRN.BEN Transitions of Care Critical Issues: NEW BASELINE FOR PATIENT: stable LABS AND PROCEDURES PENDING AT DISCHARGE: No pending results. INCIDENTAL OR ACTIONABLE FINDING (Last Refresh: 06/11/2023 4:19 PM) Test(s): CT FLANK WO IVCON FOLLOW-UP APPOINTMENTS ALREADY SCHEDULED WITH A [facility] PROVIDER: Future Appointments Date Time Provider Department Center 07/24/2023 11:00 AM PUL LAB [address] AT 07/24/2023 11:15 AM PULM LAB [facility] AT 07/24/2023 11:40 AM Adriana Martinez MD [facility] AT Discharge Information Row Name ED to Hosp-Admission (Current) from 06/01/[address] Follow-Up Appointment Specialty Medline: Free Physician Referral Service (Please call if you would like to get established with a CC PCP) ALLERGIES Allergen Reactions Penicillins Anaphylaxis Bactrim [Sulfametho* Codeine Rash Ultram [Tramadol Hc* Intolerance DISCHARGE MEDICATION (more content not included)... Normal [facility] CONSULT PROGon 06-11-2023 CONSULT PROG HNO ID: [id number] Author: Remedios Momin APRN.SOUND RECORDIST Service: Pulmonary Disease Author Type: Nurse Practitioner [...] s/p prednisone Chest pain /NSTEMI -status post [facility] 06/08, no stenosis, LVEF 55% PULMONARY PLAN [...] (Oral) Resp 18 Ht 162.6 cm (5' 4) Wt 73.5 kg (162 lb) LMP 07/24/2016 [...] ~~~~~~~~~~~~~~~~~~~~~~ ~~~~~~~~~~~~~~~~~~~~~~ ~~~~~~~~~ HUSSEIN Signature: Remedios Momin SOUND RECORDIST Normal [facility] CBC panel Auto (Bld)on 06-10 Erythrocyte distribution width (RBC) [Ratio] 12.8 % Normal 11.5-15.0 [facility] Comment on above: Order Comment: Renetta la Type: BLOOD SPECIMEN Ordering Facility: [facility] Address: [address] [place] [address] Performed By: #### 5 8410-2 #### [facility] CLIA [id number] [address] [place] [address] [place] Hematocrit (Bld) [Volume fraction] 40.7 % Normal 36.0-46.0 [facility] Comment on above: Order Comment: Renetta la Type: BLOOD SPECIMEN Ordering Facility: [facility] Address: [address] [place] [address] Performed By: #### 5 8410-2 #### [facility] CLIA [id number] [address] [place] [address] [place] Hemoglobin (Bld) [Mass/Vol] 14.1 g/dL Normal 11.5-15.5 [facility] Comment on above: Order Comment: Speci men Type: BLOOD SPECIMEN Ordering Facility: [facility] Address: [address] [place] [address] Performed By: #### 5 8410-2 #### [facility] CLIA [id number] [address] [place] [address] [place] MCH (RBC) [Entitic mass] 30.9 pg Normal 26.0-34.0 [facility] Comment on above: Order Comment: Speci men Type: BLOOD SPECIMEN Ordering Facility: [facility] Address: [address] [place] [address] Performed By: #### 5 8410-2 #### [facility] [place] [id number] [address] [place] [address] [place] MCHC (RBC) [Mass/Vol] 34.6 g/dL Normal 30.5-36.0 [facility] Comment on above: Order Comment: Speci men Type: BLOOD SPECIMEN Ordering Facility: [facility] Address: [address] [place] [address] Performed By: #### 5 8410-2 #### [facility] CLIA [id number] [address] [place] [address] [place] MCV (RBC) [Entitic vol] 89.1 fL Normal 80.0-100.0 [facility] Comment on above: Order Comment: Speci men Type: BLOOD SPECIMEN Ordering Facility: [facility] Address: [address] [place] [address] Performed By: #### 5 8410-2 #### [facility] CLIA [id number] [address] [place] [address] [place] Nucleated RBC (Bld) [#/Vol] 10*3/uL Normal <0.01 [facility] Comment on above: Order Comment: Speci men Type: BLOOD SPECIMEN Ordering Facility: [facility] Address: [address] [place] [address] Performed By: #### 5 8410-2 #### [facility] CLIA [id number] [address] [place] [address] [place] Platelet mean volume (Bld) [Entitic vol] 8.4 fL Low 9.0-12.7 [facility] Comment on above: Order Comment: Speci men Type: BLOOD SPECIMEN Ordering Facility: [facility] Address: [address] [place] [address] Performed By: #### 5 8410-2 #### [facility] CLIA [id number] [address] [place] [address] [place] Platelets (Bld) [#/Vol] 317 10*3/uL Normal 150-400 [facility] Comment on above: Order Comment: Speci men Type: BLOOD SPECIMEN Ordering Facility: [facility] Address: [address] [place] [address] Performed By: #### 5 8410-2 #### [facility] CLIA [id number] [address] [place] [address] [place] RBC (Bld) [#/Vol] 4.57 10*6/uL Normal 3.90-5.20 [facility] Comment on above: Order Comment: Speci men Type: BLOOD SPECIMEN Ordering Facility: [facility] Address: [address] [place] [address] Performed By: #### 5 8410-2 #### [facility] CLIA [id number] [address] [place] [address] [place] WBC (Bld) [#/Vol] 10.76 10*3/uL Normal 3.70-11.00 [facility] Comment on above: Order Comment: Speci men Type: BLOOD SPECIMEN Ordering Facility: [facility] Address: [address] [place] [address] Performed By: #### 5 8410-2 #### [facility] CLIA [id number] [address] [place] [address] [place] CONSULT PROGon 06-10-2023 CONSULT PROG HNO ID: [id number] Author: Jaquan Muñoz APRN.BEN Service: Pulmonary Disease Author Type: Nurse [...] 5 D Chest pain /NSTEMI -status post [facility] 06/08, no stenosis, LVEF 55% Acute hypoxic [...] (Oral) Resp 18 Ht 162.6 cm (5' 4) Wt 73.5 kg (162 lb) LMP 07/24/2016 [...] ~~~~~~~~~~~~~~~~~~~~~~ ~~~~~~~~~~~~~~~~~~~~~~ ~~~~~~~~~ HUSSEIN Signature: Jaquan Muñoz SOUND RECORDIST Normal [facility] CBC panel Auto (Bld)on 06-09 Erythrocyte distribution width (RBC) [Ratio] 12.9 % Normal 11.5-15.0 [facility] Comment on above: Order Comment: Renetta la Type: BLOOD SPECIMEN Ordering Facility: [facility] Address: [address] [place] [address] Performed By: #### 5 8410-2 #### [facility] CLIA [id number] [address] [place] [address] [place] Hematocrit (Bld) [Volume fraction] 39.3 % Normal 36.0-46.0 [facility] Comment on above: Order Comment: Renetta la Type: BLOOD SPECIMEN Ordering Facility: [facility] Address: [address] [place] [address] Performed By: #### 5 8410-2 #### [facility] CLIA [id number] [address] [place] [address] [place] Hemoglobin (Bld) [Mass/Vol] 13.1 g/dL Normal 11.5-15.5 [facility] Comment on above: Order Comment: Speci men Type: BLOOD SPECIMEN Ordering Facility: [facility] Address: [address] [place] [address] Performed By: #### 5 8410-2 #### [facility] CLIA [id number] [address] [place] [address] [place] MCH (RBC) [Entitic mass] 30.8 pg Normal 26.0-34.0 [facility] Comment on above: Order Comment: Speci men Type: BLOOD SPECIMEN Ordering Facility: [facility] Address: [address] [place] [address] Performed By: #### 5 8410-2 #### [facility] IA [id number] [address] [place] [address] [place] MCHC (RBC) [Mass/Vol] 33.3 g/dL Normal 30.5-36.0 [facility] Comment on above: Order Comment: Speci men Type: BLOOD SPECIMEN Ordering Facility: [facility] Address: [address] [place] [address] Performed By: #### 5 8410-2 #### [facility] IA [id number] [address] [place] [address] [place] MCV (RBC) [Entitic vol] 92.5 fL Normal 80.0-100.0 [facility] Comment on above: Order Comment: Speci men Type: BLOOD SPECIMEN Ordering Facility: [facility] Address: [address] [place] [address] Performed By: #### 5 8410-2 #### [facility] CLIA [id number] [address] [place] [address] [place] Nucleated RBC (Bld) [#/Vol] 10*3/uL Normal <0.01 [facility] Comment on above: Order Comment: Speci men Type: BLOOD SPECIMEN Ordering Facility: [facility] Address: [address] [place], [place] [address], [place] [address] Performed By: #### 5 8410-2 #### [facility] CLIA [id number] [address] [place] [address] [place] Platelet mean volume (Bld) [Entitic vol] 8.6 fL Low 9.0-12.7 [facility] Comment on above: Order Comment: Speci men Type: BLOOD SPECIMEN Ordering Facility: [facility] Address: [address] [place] [address] Performed By: #### 5 8410-2 #### [facility] CLIA [id number] [address] [place] [address] [place] Platelets (Bld) [#/Vol] 325 10*3/uL Normal 150-400 [facility] Comment on above: Order Comment: Speci men Type: BLOOD SPECIMEN Ordering Facility: [facility] Address: [address] [place] [address] Performed By: #### 5 8410-2 #### [facility] IA [id number] [address] [place] [address] [place] RBC (Bld) [#/Vol] 4.25 10*6/uL Normal 3.90-5.20 [facility] Comment on above: Order Comment: Speci men Type: BLOOD SPECIMEN Ordering Facility: [facility] Address: [address] [place] [address] Performed By: #### 5 8410-2 #### [facility] CLIA [id number] [address] [place] [address] [place] WBC (Bld) [#/Vol] 8.70 10*3/uL Normal 3.70-11.00 [facility] Comment on above: Order Comment: Speci men Type: BLOOD SPECIMEN Ordering Facility: [facility] Address: [address] [place] [address] Performed By: #### 5 8410-2 #### [facility] CLIA [id number] [address] [place] [address] [place] CONSULT PROGon 06-09-2023 CONSULT PROG HNO ID: [id number] Author: Brodie Delgado MD Service: Pulmonary Disease Author Type: Physician [...] 5 D Chest pain /NSTEMI -status post [facility] 06/08, no stenosis, LVEF 55% Acute hypoxic [...] -- 17 98 % 162.6 cm (5' 4) 73.5 kg (162 lb) 06/08/23 0737 121/84 [...] recent labs and imaging results. SIGNATURE: Brodie Delgado MD PATIENT NAME: Damari Rios DATE: June 09, 2023 (more content not included)... Normal [facility] ECG COMPLETEon 06-09-2023 ECG COMPLETE Ventricular Rate : 6 4 BPM Atrial Rate : 64 BPM P-R Interval : 162 ms QRS Duration : 74 ms Q-T Interval : 374 ms QTC Calculation(Bazett) : 385 ms Calculated P Lima : 57 degrees Calculated R Lima : 31 degrees Calculated T Lima : 75 degrees NORMAL SINUS RHYTHM NONSPECIFIC T WAVE ABNORMALITY ABNORMAL ECG WHEN COMPARED WITH ECG OF 06-JUN-2023 12:16, VENT. RATE HAS DECREASED BY 43 BPM NON-SPECIFIC CHANGE IN ST SEGMENT IN LATERAL LEADS QT HAS SHORTENED Confirmed by DEEJAY ASHRAF M.D. ([id number]) on 06/10/2023 9:59:40 AM NAME : DAMARI RIOS PID : [id number] : 1975 Gender : Female Race : ORD : [id number] Procedure Date : Jun 09 2023 11:16:56 [...] By : , Acquired by : , [facility] NURSING PROGon 06-09-2023 NURSING PROG HNO ID: [id number] Author: Eliana August, YUNI Service: Nursing Author Type: Registered Nurse Type: Nursing Progress Note Filed: 06/09/2023 7:16 PM Note Text: Other: 1530: Assumed care of patient in stable condition. Report received from [facility] RN. No s/s of acute distress noted. Bed low and call light within reach. 1916: Plan of Care Continuous Hydrographic Surveyor VS q4h and PRN Treat pain and reassess per protocol Notify LIP of any acute arrhythmias, cp, sob, pulse ox < 94 percent. Maintain pt. Safety: Call light in reach, side rails up X2, bed low and locked, up with assistance. [facility] NURSING PROG HNO ID: [id number] Author: Sapna Gutierrez, YUNI Service: ? Author Type: Registered Nurse Type: [...] bed low and locked, patient safety maintained. [facility] ALLIED HEALTHon 06-08-2023 ALLIED HEALTH HNO ID: [id number] Author: Jose C Richmond RT(R) Service: ? [...] DATA: Inpatient: see LDA documentation SIGNED BY: Jose C Richmond RT(R) June 08, 2023 8:28 PM DERMAL PIERCING NON FERROMAGNETIC, PATIENT GIVEN SQUEEZEBALL. METAL ARTIFACT FROM ENDOSCOPIC CLIP, 3T COMPATIBLE Normal [facility] CBC panel Auto (Bld)on 06-08 Erythrocyte distribution width (RBC) [Ratio] 13.0 % Normal 11.5-15.0 [facility] Comment on above: Order Comment: Renetta la Type: BLOOD SPECIMENOrdering Facility: [facility] Address: [address] [place] [address] Performed By: #### 5 8410-2 ####[facility] LABORATORYCLIA [id number] [address] [place] Hematocrit (Bld) [Volume fraction] 37.4 % Normal 36.0-46.0 [facility] Comment on above: Order Comment: Renetta la Type: BLOOD SPECIMENOrdering Facility: [facility] Address: [address] [place] [address] Performed By: #### 5 8410-2 ####[facility] LABORATORYCLIA [id number] [place] [address] [place] Hemoglobin (Bld) [Mass/Vol] 12.4 g/dL Normal 11.5-15.5 [facility] Comment on above: Order Comment: Renetta la Type: BLOOD SPECIMENOrdering Facility: [facility] Address: [address] [place] [address] Performed By: #### 5 8410-2 ####[facility] LABORATORYCLIA [id number] [place] [address] [place] MCH (RBC) [Entitic mass] 30.7 pg Normal 26.0-34.0 [facility] Comment on above: Order Comment: Speci men Type: BLOOD SPECIMENOrdering Facility: [facility] Address: [address] [place] [address] Performed By: #### 5 8410-2 ####[facility]ORYCLIA [id number] [place] [address] [place] MCHC (RBC) [Mass/Vol] 33.2 g/dL Normal 30.5-36.0 [facility] Comment on above: Order Comment: Speci men Type: BLOOD SPECIMENOrdering Facility: [facility] Address: [address] [place] [address] Performed By: #### 5 8410-2 ####[facility]ORATORYCLIA [id number] [place] [address] [place] MCV (RBC) [Entitic vol] 92.6 fL Normal 80.0-100.0 [facility] Comment on above: Order Comment: Speci men Type: BLOOD SPECIMENOrdering Facility: [facility] Address: [address] [place] [address] Performed By: #### 5 8410-2 ####[facility]ATORYCLIA [id number] [place] [address] [place] Nucleated RBC (Bld) [#/Vol] 10*3/uL Normal <0.01 [facility] Comment on above: Order Comment: Speci men Type: BLOOD SPECIMENOrdering Facility: [facility] Address: [address] [place] [address] Performed By: #### 5 8410-2 ####[facility]ATORYCLIA [id number] [place] [address] [place] Platelet mean volume (Bld) [Entitic vol] 8.8 fL Low 9.0-12.7 [facility] Comment on above: Order Comment: Speci men Type: BLOOD SPECIMENOrdering Facility: [facility] Address: [address] [place] [address] Performed By: #### 5 8410-2 ####[facility] LABORATORYCLIA [id number] [place] [id number] [place] Platelets (Bld) [#/Vol] 318 10*3/uL Normal 150-400 [facility] Comment on above: Order Comment: Speci men Type: BLOOD SPECIMENOrdering Facility: [facility] Address: [address] [place] [address] Performed By: #### 5 8410-2 ####[facility] LABORATORYCLIA [id number] [place] [address] [place] RBC (Bld) [#/Vol] 4.04 10*6/uL Normal 3.90-5.20 [facility] Comment on above: Order Comment: Speci men Type: BLOOD SPECIMENOrdering Facility: [facility] Address: [address] [place] [address] Performed By: #### 5 8410-2 ####[facility] LABORATORYCLIA [id number] [place] [address] [place] WBC (Bld) [#/Vol] 12.47 10*3/uL High 3.70-11.00 [facility] Comment on above: Order Comment: Speci men Type: BLOOD SPECIMENOrdering Facility: [facility] Address: [address] [place] [address] Performed By: #### 5 8410-2 ####[facility] LABORATORYCLIA [id number] [place] [address] [place] MRI LUMBAR SPINE [...] on Jun 08 2023 9:17PM EST [id number] [facility] NURSING PROGon 06-08-2023 NURSING PROG HNO ID: [id number] Author: Kimberly Pino RN Service: Nursing Author [...] to monitor. 0935 Patient off floor to [facility] at this time. 1500 Patient returned to floor at this time. [facility] NUTRITIONon 06-08-2023 NUTRITION HNO ID: [id number] Author: Francis Roman RD Service: Nutrition Therapy [...] Patient/family self-report, Medical condition Estimated kilocalorie needs: 2249-4508 Calorie Calculation Method: 20-25 kcals/kg Estimated protein [...] 06/07/23 0906 Anthropometrics: Height: 162.6 cm (5' 4) Weight: 73.5 kg (162 lb) Dosing Weight: [...] DATE: June 08, 2023 TIME: 10:27 AM [facility] OPERATIVE NOon 06-08-2023 OPERATIVE NO HNO ID: [id number] Author: Tyler Greene MD Service: Interventional Cardiology Author Type: Physician Type: Operative Report Filed: 07/03/2023 12:01 PM Note Text: SUPERVISOR BIT AND SHANK DEPARTMENT PROCEDURE REPORT SERVICE DATE: 06/08/2023 SERVICE TIME: 1:06 PM MUSIC EDUCATION DIRECTOR: Tyler Greene MD ATTENDING: Zainab Croft V, MD PRIMARY CARE PHYSICIAN: Kimberly Cason MD REFERRING PROVIDER: Marylin Sweet MD [employer] OF HEALTH and AGING SCALE:2=Well CARDIOVASCULAR [...] The patient was taken to the cardiac laboratory manager where the entry site was prepped and [...] June 08, 2023 TIME: 1:06 PM Normal [facility] PTT, ANTICOAGULANT THERAPYon 06-08-2023 aPTT Coag (PPP) [Time] 84.5 s High 23.0-32.4 [facility] Comment on above: Order Comment: Speci men Type: BLOOD SPECIMEN Ordering Facility: [facility] Address: [address] [place] [address] Performed By: #### P TTAC #### [facility] CLIA [id number] [address] [place] [address] [place] aPTT Coag (PPP) [Time] 71.3 s High 23.0-32.4 [facility] Comment on above: Order Comment: Speci men Type: BLOOD SPECIMEN Ordering Facility: [facility] Address: [address] [place] [address] Performed By: #### P TTAC #### [facility] CLIA [id number] [address] [place] [address] [place] CBC panel Auto (Bld)on 06-07 Erythrocyte distribution width (RBC) [Ratio] 13.1 % Normal 11.5-15.0 [facility] Comment on above: Order Comment: Speci men Type: BLOOD SPECIMENOrdering Facility: [facility] Address: [address] [place] [address] Performed By: #### 5 8410-2 ####[facility]ORATORYCLIA [id number] [address] [place] Hematocrit (Bld) [Volume fraction] 40.6 % Normal 36.0-46.0 [facility] Comment on above: Order Comment: Maikoli abhinav Type: BLOOD SPECIMENOrdering Facility: [facility] Address: [address] [place] [address] Performed By: #### 5 8410-2 ####[facility]ORATORYCLIA [id number] [place] [address] [place] Hemoglobin (Bld) [Mass/Vol] 13.6 g/dL Normal 11.5-15.5 [facility] Comment on above: Order Comment: Speci men Type: BLOOD SPECIMENOrdering Facility: [facility] Address: [address] [place] [address] Performed By: #### 5 8410-2 ####[facility]ORATORYCLIA [id number] [place] [address] [place] MCH (RBC) [Entitic mass] 30.9 pg Normal 26.0-34.0 [facility] Comment on above: Order Comment: Speci men Type: BLOOD SPECIMENOrdering Facility: [facility] Address: [address] [place] [address] Performed By: #### 5 8410-2 ####[facility]ATORYCLIA [id number] [address] [place] MCHC (RBC) [Mass/Vol] 33.5 g/dL Normal 30.5-36.0 [facility] Comment on above: Order Comment: Speci men Type: BLOOD SPECIMENOrdering Facility: [facility] Address: [address] [place] [address] Performed By: #### 5 8410-2 ####[facility]ATORYCLIA [id number] [address] [place] MCV (RBC) [Entitic vol] 92.3 fL Normal 80.0-100.0 [facility] Comment on above: Order Comment: Speci men Type: BLOOD SPECIMENOrdering Facility: [facility] Address: [address] [place] [address] Performed By: #### 5 8410-2 ####[facility]ORYCLIA [id number] [address] [place] Nucleated RBC (Bld) [#/Vol] 10*3/uL Normal <0.01 [facility] Comment on above: Order Comment: Speci men Type: BLOOD SPECIMENOrdering Facility: [facility] Address: [address] [place] [address] Performed By: #### 5 8410-2 ####[facility]ORATORYCLIA [id number] [place] [address] [place] Platelet mean volume (Bld) [Entitic vol] 8.8 fL Low 9.0-12.7 [facility] Comment on above: Order Comment: Speci men Type: BLOOD SPECIMENOrdering Facility: [facility] Address: [address] [place] [address] Performed By: #### 5 8410-2 ####[facility] LABORATORYCLIA [id number] [place] [address] [place] Platelets (Bld) [#/Vol] 325 10*3/uL Normal 150-400 [facility] Comment on above: Order Comment: Speci men Type: BLOOD SPECIMENOrdering Facility: [facility] Address: [address] [place] [address] Performed By: #### 5 8410-2 ####[facility] LABORATORYCLIA [id number] [place] [address] [place] RBC (Bld) [#/Vol] 4.40 10*6/uL Normal 3.90-5.20 [facility] Comment on above: Order Comment: Speci men Type: BLOOD SPECIMENOrdering Facility: [facility] Address: [address] [place] [address] Performed By: #### 5 8410-2 ####[facility] LABORATORYCLIA [id number] [place] [address] [place] WBC (Bld) [#/Vol] 11.51 10*3/uL High 3.70-11.00 [facility] Comment on above: Order Comment: Speci men Type: BLOOD SPECIMENOrdering Facility: [facility] Address: [address] [place] [address] Performed By: #### 5 8410-2 ####[facility] LABORATORYCLIA [id number] [place] [address] [place] CK TOTAL AND CK-MBon 023 CK [Catalytic activity/Vol] 24 U/L Low 42-196 [facility] Comment on above: Order Comment: Speci abhinav Type: BLOOD SPECIMEN Ordering Facility: [facility] Address: [address] [place] [address] Performed By: #### 5 8410-2 #### [facility] CLIA [id number] [address] [place] [address] CK.MB [Mass/Vol] ng/mL Normal <4.4 [facility] Comment on above: Order Comment: Speci abhinav Type: BLOOD SPECIMEN Ordering Facility: [facility] Address: [address] [place] [address] Performed By: #### 5 8410-2 #### [facility] CLIA [id number] [address] [place] [address] [place] CK.MB [Ratio] Normal [facility] Comment on above: Order Comment: Renetta abhinav Type: BLOOD SPECIMEN Ordering Facility: [facility] Address: [address] [place] [address] Result Comment: CK M B % not reported with CK <100 U/L. Performed By: #### 5 8410-2 #### [facility] CLIA [id number] [address] [place] [address] [place] CONSULT PROGon 06-07-2023 CONSULT PROG HNO ID: [id number] Author: Melinda Coello APRN.CNP Service: Pulmonary Disease Author Type: Nurse Practitioner Type: Consult Progress Note Filed: 06/07/2023 12:25 PM Note Text: CONSULT PROGRESS NOTES Patient Name: Damari Rios SERVICE DATE: 06/07/2023 Consult Progress Note CONSULTING SERVICE: [facility] Respiratory [...] (Oral) Resp 20 Ht 162.6 cm (5' 4) Wt 73.5 kg (162 lb) LMP 07/24/2016 [...] 0.09 ABSBASO -- -- 0.03 Recent Labs 06/07/23 0921 06/06/23 0948 06/05/23 0940 NA -- 139 139 K -- 4.2 3.8 [facility] -- 1 (more content not included)... [facility] CONSULT PROG HNO ID: [id number] Author: Autumn Keller MD Service: Gynecology Author [...] resp. rate 20, height 162.6 cm (5' 4), weight 73.5 kg (162 lb), last menstrual [...] be s (more content not included)... Normal [facility] ECHOon 06-07-2023 Echocardiography Echocardiography Report: Transthoracic Echo [facility] Date of service: 06/07/2023 10:25:11 AM [facility] Ordering physician: SUKHJINDER LANDAVERDE Indication: Pulmonary embolism Technologist: Celestine Ramos [facility] Interpreting physician: Fernandez Sweet MD PATIENT: Name: MRS. DAMARI RIOS : [...] * * Final * * * [facility] : [id number] csSISUID Normal [facility] HCG Preg Ur Qlon 06-07-2023 HCG ( test) Ql (U) Negative Normal Negative [facility] Comment on above: Order Comment: Renetta la Type: URINE SPECIMENOrdering Facility: [facility] Address: [address] [place] [address] Result Comment: This test is intended to aid in the early detection of . Very dilute urine samples, as indicated by a low specific gravity, may not contain career representative levels of hCG. This test detects [...] for . Performed By: #### 2 106-3 ####[facility]ORATORYCLIA [id number] [place] [address] [place] HIGH SENSITIVITY TROPONIN To n 06-07-2023 Troponin T.cardiac High sensitivity method [Mass/Vol] <6 Normal <12 [facility] Comment on above: Order Comment: Renetta la Type: BLOOD SPECIMEN Ordering Facility: [facility] Address: [address] [place] [address] Result Comment: When assessing risk for acute [...] MACE. Performed By: #### 5 8410-2 #### [facility] CLIA [id number] [address] [place] [address] [place] Lipid 1996 panelon 3 Cholesterol [Mass/Vol] 203 mg/dL High <200 [facility] Comment on above: Order Comment: Renetta la Type: BLOOD SPECIMEN Ordering Facility: [facility] Address: [address] [place] [address] Result Comment: <200 mg/dL, Desirable 200-239 mg/dL, Borderline high >239 mg/dL, High Performed By: #### 5 8410-2 #### [facility] CLIA [id number] [address] [place] [address] [place] Cholesterol in HDL [Mass/Vol] 52 mg/dL Normal >39 [facility] Comment on above: Order Comment: Renetta la Type: BLOOD SPECIMEN Ordering Facility: [facility] Address: [address] [place] [address] Result Comment: 40-5 9 mg/dL, Acceptable >59 mg/dL, High: Negative risk factor for coronary heart disease <40 mg/dL, Low: Positive risk factor for coronary heart disease Performed By: #### 5 8410-2 #### [facility] CLIA [id number] [address] [place] [address] [place] Cholesterol in LDL [Mass/Vol] 120 mg/dL High <100 [facility] Comment on above: Order Comment: Renetta la Type: BLOOD SPECIMEN Ordering Facility: [facility] Address: [address] [place] [address] Result Comment: <100 mg/dL, Optimal 100-129 mg/dL, Near optimal/above optimal 130-159 mg/dL, Borderline high 160-189 mg/dL, High >189 mg/dL, Very high Secondary prevention optimal LDL Cholesterol levels are recommended to be < 70 mg/dL Performed By: #### 5 8410-2 #### [facility] CLIA [id number] [address] [place] [address] [place] Cholesterol in LDL/Cholesterol in HDL [Mass ratio] 2.31 {ratio} Normal <2.54 [facility] Comment on above: Order Comment: Renetta la Type: BLOOD SPECIMEN Ordering Facility: [facility] Address: [address] [place] [address] Result Comment: Refe rence: 1. National Cholesterol Education Program ATP III Guideline At-A-Glance Quick Desk Reference: National Heart, Lung, and Blood [place]. National Institutes of Health. 2001: NIH Publication No. 01-3305. 2. An International Atherosclerosis Society position paper: global recommendations for the management of dyslipidemia: executive summary, Atherosclerosis. 2014: 232(2):410-413. Performed By: #### 5 8410-2 #### [facility] CLIA [id number] [address] [place] [address] [place] Cholesterol in VLDL [Mass/Vol] 31 mg/dL High <30 [facility] Comment on above: Order Comment: Speci men Type: BLOOD SPECIMEN Ordering Facility: [facility] Address: [address] [place] [address] Performed By: #### 5 8410-2 #### [facility] CLIA [id number] [address] [place] [address] [place] Cholesterol non HDL [Mass/Vol] 151 mg/dL High <130 [facility] Comment on above: Order Comment: Maikoli abhinav Type: BLOOD SPECIMEN Ordering Facility: [facility] Address: [address] [place] [address] Result Comment: <130 mg/dL, Optimal 130-159 mg/dL, Near optimal/above optimal 160-189 mg/dL, Borderline high 190-219 mg/dL, High >219 mg/dL, Very high Secondary prevention optimal non HDL Cholesterol levels are recommended to be <100 mg/dL Performed By: #### 5 8410-2 #### [facility] CLIA [id number] [address] [place] [address] [place] Cholesterol.total/Chol esterol in HDL [Mass ratio] 3.90 {ratio} Normal <5.10 [facility] Comment on above: Order Comment: Speci [facility] Type: BLOOD SPECIMEN Ordering Facility: [facility] Address: [address] [place] [address] Performed By: #### 5 8410-2 #### [facility] CLIA [id number] [address] [place] [address] [place] FASTING TIME Normal [facility] Comment on above: Order Comment: Speci abhinav Type: BLOOD SPECIMEN Ordering Facility: [facility] Address: [address] [place] [address] Result Comment: Unkn own Performed By: #### 5 8410-2 #### [facility] CLIA [id number] [address] [place] [address] [place] Triglyceride [Mass/Vol] 156 mg/dL High <150 [facility] Comment on above: Order Comment: Renetta abhinav Type: BLOOD SPECIMEN Ordering Facility: [facility] Address: [address] [place] [address] Result Comment: <150 mg/dL, Normal 150-199 mg/dL, Borderline high 200-499 mg/dL, High >499 mg/dL, Very high Performed By: #### 5 8410-2 #### [facility] CLIA [id number] [address] [place] [address] [place] PT panel Coag (PPP)on 2022 INR Coag (PPP) [Relative time] 1.0 {INR} Normal 0.9-1.3 [facility] Comment on above: Order Comment: Renetta la Type: BLOOD SPECIMENOrdering Facility: [facility] Address: [address] [place] [address] Result Comment: Tiesha min K Antagonist (VKA) Therapeutic Range: INR 2 to 3 (Target INR of 2.5) Note: For patients treated with VKA drugs, such as warfarin, the [place] [employer] 2012 Guideline recommends [...] TIDWELL, et al. Chest 2012, 141:7S-47S Roberta IRVIN et al. [facility] 2017, 70: 252-289 Performed By: #### 3 4528-0, PTTAC ####[facility]ATORYCLIA [id number] [place] [address] [place] PT Coag (PPP) [Time] 11.0 s Normal 9.7-13.0 [facility] Comment on above: Order Comment: Speci men Type: BLOOD SPECIMENOrdering Facility: [facility] Address: [address] [place] [address] Performed By: #### 3 4528-0, PTTAC ####[facility]ORYCLIA [id number] [place] [address] [place] PTT, ANTICOAGULANT THERAPYon 06-07-2023 aPTT Coag (PPP) [Time] 113.0 s High 23.0-32.4 [facility] Comment on above: Order Comment: Speci men Type: BLOOD SPECIMEN Ordering Facility: [facility] Address: [address] [place] [address] Performed By: #### 5 8410-2 #### [facility] CLIA [id number] [address] [place] [address] [place] aPTT Coag (PPP) [Time] 30.0 s Normal 23.0-32.4 [facility] Comment on above: Order Comment: Speci men Type: BLOOD SPECIMENOrdering Facility: [facility] Address: [address] [place] [address] Performed By: #### 3 4528-0, PTTAC ####[facility]ORYCLIA [id number] [place] [address] [place] Urinalysis complete panel (U )on 06-07-2023 Bilirubin Ql (U) Negative Normal Negative [facility] Comment on above: Order Comment: Speci men Type: URINE SPECIMEN Ordering Facility: [facility] Address: [address] [place] [address] Performed By: #### 2 4356-8 #### [facility] CLIA [id number] [address] [place] [address] [place] Clarity (Unsp spec) Clear Normal Clear [facility] Comment on above: Order Comment: Speci men Type: URINE SPECIMEN Ordering Facility: [facility] Address: [address] [place] [address] Performed By: #### 2 4356-8 #### [facility] CLIA [id number] [address] [place] [address] [place] Color (U) Light Yellow Normal Yellow [facility] Comment on above: Order Comment: Speci men Type: URINE SPECIMEN Ordering Facility: [facility] Address: [address] [place] [address] Performed By: #### 2 4356-8 #### [facility] CLIA [id number] [address] [place] [address] [place] Epithelial cells LM.HPF (Urine sed) [#/Area] Few Normal [facility] Comment on above: Order Comment: Speci men Type: URINE SPECIMEN Ordering Facility: [facility] Address: [address] [place] [address] Performed By: #### 2 4356-8 #### [facility] CLIA [id number] [address] [place] [address] [place] Glucose Test strip (U) [Mass/Vol] Trace Normal Trace, Negative [facility] Comment on above: Order Comment: Speci men Type: URINE SPECIMEN Ordering Facility: [facility] Address: [address] [place] [address] Performed By: #### 2 4356-8 #### [facility] CLIA [id number] [address] [place] [address] [place] Hemoglobin Ql (U) Negative Normal Negative, Trace [facility] Comment on above: Order Comment: Speci men Type: URINE SPECIMEN Ordering Facility: [facility] Address: [address] [place] [address] Performed By: #### 2 4356-8 #### [facility] CLIA [id number] [address] [place] [address] [place] Ketones Ql (U) Negative Normal Negative, Trace [facility] Comment on above: Order Comment: Speci men Type: URINE SPECIMEN Ordering Facility: [facility] Address: [address] [place] [address] Performed By: #### 2 4356-8 #### [facility] CLIA [id number] [address] [place] [address] [place] Leukocyte esterase Test strip Ql (U) Negative Normal Negative, 25 Souleymane/uL [facility] Comment on above: Order Comment: Speci men Type: URINE SPECIMEN Ordering Facility: [facility] Address: [address] [place] [address] Performed By: #### 2 4356-8 #### [facility] CLIA [id number] [address] [place] [address] [place] Nitrite Ql (U) Negative Normal Negative [facility] Comment on above: Order Comment: Speci men Type: URINE SPECIMEN Ordering Facility: [facility] Address: [address] [place] [address] Performed By: #### 2 4356-8 #### [facility] CLIA [id number] [address] [place] [address] [place] pH (U) 6.5 [pH] Normal 5.0-8.0 [facility] Comment on above: Order Comment: Speci men Type: URINE SPECIMEN Ordering Facility: [facility] Address: [address] [place] [address] Performed By: #### 2 4356-8 #### [facility] CLIA [id number] [address] [place] [address] [place] Protein (U) [Mass/Vol] Negative Normal Trace , Negative [facility] Comment on above: Order Comment: Speci men Type: URINE SPECIMEN Ordering Facility: [facility] Address: [address] [place] [address] Performed By: #### 2 4356-8 #### [facility] CLIA [id number] [address] [place] [address] [place] RBC LM.HPF (Urine sed) [#/Area] 0-3 /HPF Normal 0-3 /HPF [facility] Comment on above: Order Comment: Speci men Type: URINE SPECIMEN Ordering Facility: [facility] Address: [address] [place] [address] Performed By: #### 2 4356-8 #### [facility] CLIA [id number] [address] [place] [address] [place] Specific gravity (U) [Rel density] 1.018 Normal 1.005-1.030 [facility] Comment on above: Order Comment: Speci men Type: URINE SPECIMEN Ordering Facility: [facility] Address: [address] [place] [address] Performed By: #### 2 4356-8 #### [facility] CLIA [id number] [address] [place] [address] [place] Urobilinogen Ql (U) Negative Normal Negative [facility] Comment on above: Order Comment: Speci men Type: URINE SPECIMEN Ordering Facility: [facility] Address: [address] [place] [address] Performed By: #### 2 4356-8 #### [facility] IA [id number] [address] [place] [address] [place] WBC LM.HPF (Urine sed) [#/Area] 0-5 /HPF Normal 0-5 /HPF [facility] Comment on above: Order Comment: Speci men Type: URINE SPECIMEN Ordering Facility: [facility] Address: [address] [place] [address] Performed By: #### 2 4356-8 #### [facility] CLIA [id number] [address] [place] [address] [place] ALLIED HEALTHon 06-06-2023 ALLIED HEALTH HNO ID: [id number] Author: Carley Allred RT(R) Service: Radiology Author Type: Technologist Type: [...] PERIPHERAL IV DATA: Not applicable SIGNED BY: Carley Allred RT(R) June 06, 2023 5:48 PM [facility] HNO ID: [id number] Author: Suzanne Soliz RT(R) Service: Radiology Author Type: Technologist Type: [facility] Filed: 06/06/2023 1:35 PM Note Text: [...] PERIPHERAL IV DATA: Not applicable SIGNED BY: Suzanne Soliz RT(R) June 06, 2023 1:35 PM [facility] HNO ID: [id number] Author: Levy Tubbs RT(R) Service: Radiology Author Type: Technologist Type: [facility] Filed: 06/06/2023 10:51 AM Note Text: [...] IV DATA: Not applicable SIGNED BY: RT Devora(R) June 06, 2023 10:50 AM Normal [facility] CBC panel Auto (Bld)on 06-06 Erythrocyte distribution width (RBC) [Ratio] 13.0 % Normal 11.5-15.0 [facility] Comment on above: Order Comment: Speci men Type: BLOOD SPECIMENOrdering Facility: [facility] Address: [address] [place] [address] Performed By: #### 5 8410-2 ####[facility] [id number] [place] [address] [place] Hematocrit (Bld) [Volume fraction] 40.9 % Normal 36.0-46.0 [facility] Comment on above: Order Comment: Speci men Type: BLOOD SPECIMENOrdering Facility: [facility] Address: [address] [place] [address] Performed By: #### 5 8410-2 ####[facility] [id number] [place] [address] [place] Hemoglobin (Bld) [Mass/Vol] 13.4 g/dL Normal 11.5-15.5 [facility] Comment on above: Order Comment: Speci men Type: BLOOD SPECIMENOrdering Facility: [facility] Address: [address] [place] [address] Performed By: #### 5 8410-2 ####[facility] [id number] [place] [address] [place] MCH (RBC) [Entitic mass] 30.4 pg Normal 26.0-34.0 [facility] Comment on above: Order Comment: Speci men Type: BLOOD SPECIMENOrdering Facility: [facility] Address: [address] [place] [address] Performed By: #### 5 8410-2 ####[facility] [id number] [place] [address] [place] MCHC (RBC) [Mass/Vol] 32.8 g/dL Normal 30.5-36.0 [facility] Comment on above: Order Comment: Speci men Type: BLOOD SPECIMENOrdering Facility: [facility] Address: [address] [place] [address] Performed By: #### 5 8410-2 ####[facility] [id number] [place] [address] [place] MCV (RBC) [Entitic vol] 92.7 fL Normal 80.0-100.0 [facility] Comment on above: Order Comment: Speci men Type: BLOOD SPECIMENOrdering Facility: [facility] Address: [address] [place] [address] Performed By: #### 5 8410-2 ####[facility] [id number] [place] [address] [place] Nucleated RBC (Bld) [#/Vol] 10*3/uL Normal <0.01 [facility] Comment on above: Order Comment: Speci men Type: BLOOD SPECIMENOrdering Facility: [facility] Address: [address] [place] [address] Performed By: #### 5 8410-2 ####[facility] [id number] [place] [address] [place] Platelet mean volume (Bld) [Entitic vol] 8.6 fL Low 9.0-12.7 [facility] Comment on above: Order Comment: Speci men Type: BLOOD SPECIMENOrdering Facility: [facility] Address: [address] [place] [address] Performed By: #### 5 8410-2 ####[facility] [id number] [place] [address] [place] Platelets (Bld) [#/Vol] 339 10*3/uL Normal 150-400 [facility] Comment on above: Order Comment: Speci men Type: BLOOD SPECIMENOrdering Facility: [facility] Address: [address] [place] [address] Performed By: #### 5 8410-2 ####[facility] [id number] [place] [address] [place] RBC (Bld) [#/Vol] 4.41 10*6/uL Normal 3.90-5.20 [facility] Comment on above: Order Comment: Speci men Type: BLOOD SPECIMENOrdering Facility: [facility] Address: [address] [place] [address] Performed By: #### 5 8410-2 ####[facility] [id number] [place] [address] [place] WBC (Bld) [#/Vol] 15.26 10*3/uL High 3.70-11.00 [facility] Comment on above: Order Comment: Speci men Type: BLOOD SPECIMENOrdering Facility: [facility] Address: [address] [place] [address] Performed By: #### 5 8410-2 ####[facility] [id number] [place] [address] [place] CK TOTAL AND CK-MBon 023 CK [Catalytic activity/Vol] 32 U/L Low 42-196 [facility] Comment on above: Order Comment: Speci men Type: BLOOD SPECIMENOrdering Facility: [facility] Address: [address] [place] [address] Performed By: #### H STNT, CKCKMB ####[facility] [id number] [place] [address] [place] CK.MB [Mass/Vol] 1.1 ng/mL Normal <4.4 [facility] Comment on above: Order Comment: Speci men Type: BLOOD SPECIMENOrdering Facility: [facility] Address: [address] [place] [address] Performed By: #### H STNT, CKCKMB ####[facility] [id number] [place] [address] [place] CK.MB [Ratio] Normal [facility] Comment on above: Order Comment: Speci men Type: BLOOD SPECIMENOrdering Facility: [facility] Address: [address], [place] [address] Result Comment: CK M B % not reported with CK <100 U/L. Performed By: #### H STNT, CKCKMB ####[facility] [id number] [place] [address] [place] [facility] CNOVon 06-06-2023 CNOV Office Visit (PLMLBH ) BLANCADAMARI Oneil ([id number]) 1975 F Date Time Provider Department 06/06/23 10:00 AM [facility] PULM FCT 1PLMLBH During your visit today, we recorded the following information about you: Dania Srinivasan RRT 06/06/2023 10:20 AM Signed PULM FUNCTION SMARTBLOCK: Provider: Melinda Coello APRN.SOUND RECORDIST Oximetry - Ambulation: 1 Dania Srinivasan RRT 06/06/2023 10:20 AM Signed RESPIRATORY THERAPY [...] Index Finger 30 -- None NAME: Dania Srinivasan RRT PATIENT NAME: Damari Rios DATE: June 06, 2023 TIME: 10:20 AM Comment: Patient does not require oxygen. Patient reports feeling foggy with activity, requiring periods of rest x2 Referring Provider: MELINDA COELLO [[id number]] Allergies As of Date: 06/06/2023 Noted Allergy Reaction PENICILLINS 03/13/2005 10 - Anaphylaxis BACTRIM (SULFAMETHOXAZOLE-TRIM ETH*03/13/2005 CODEINE 03/13/2005 2 - Rash ULTRAM (TRAMADOL HCL) 03/13/2005 5 - Intolerance Date Reviewed: 06/06/2023 Reviewed by: Marichuy Kwon RN - Fully Assessed Reason for Visit: Dyspnea [...] pulmonary embolism wi (more content not included)... Normal [facility] CONSULTon 06-06-2023 CONSULT HNO ID: [id number] Author: Marylin Sweet MD Service: Clinical Cardiology Author Type: Physician Type: Consults Filed: 06/06/2023 1:50 PM Note Text: [facility] CARDI[facility]ASCULAR MEDICINE CONSULT NOTE [facility] Damari Rios [id number] PRIMARY SERVICE: Medicine CONSULTING SERVICE: CVM TEAM [...] Procedure Laterality Date COLONOSCOP W/ OR W/O [facility] SPEC 04/03/12 pt discomfort, normal to transverse colon - ordered BE EGD W/O [facility] SPECIMEN W/BX 04/03/12 mild gastritis HYSTERECTOMY HX 2017 LAPAROSCOPIC CHOLEYCYSTECTOMY 2000 Cholecystectomy, lap LIGATE FALLOPIAN TUBE 1999 NONE 04/04/2021 PAST SURGICAL HISTORY OF 2016 [...] 5 m (more content not included)... Normal [facility] CT FLANK WO IVCONon 06-06-[address] FLANK WO IVCON * * *Final Report* * * DATE OF EXAM: Jun 06 2023 5:53PM [facility] 0529 - CT FLANK WO IVCON / [...] cm Lower thorax: Tiny bilateral pleural effusions. Step Finisher (topogram) images: Unremarkable. IMPRESSION: Peripelvic nonobstructing right [...] be communicated with the ordering provider via [employer] staff message or phone message by [employer] within 2 business days of report finalization. --END OF FINDING-- Transcribed Using Voice Recognition Transcribe Date/Time: Jun 06 2023 6:12P Dictated by: SUPA BEAR MD This examination was interpreted and the report reviewed and electronically signed by: SUPA BEAR MD on Jun 06 2023 6:19PM EST [id number] ACTIONABLE Invalid Interpretation Code [facility] Comprehensive metabolic 2000 panelon 06-06-2023 Albumin [Mass/Vol] 4.3 g/dL Normal 3.9-4.9 [facility] Comment on above: Order Comment: Speci men Type: BLOOD SPECIMEN Ordering Facility: [facility] Address: [address] [place] [address] Performed By: #### P TTAC #### [facility] CLIA [id number] [address] [place] [address] [place] ALP [Catalytic activity/Vol] 63 U/L Normal 34-123 [facility] Comment on above: Order Comment: Speci men Type: BLOOD SPECIMEN Ordering Facility: [facility] Address: [address] [place] [address] Performed By: #### P TTAC #### [facility] CLIA [id number] [address] [place] [address] [place] ALT [Catalytic activity/Vol] 9 U/L Normal 7-38 [facility] Comment on above: Order Comment: Speci men Type: BLOOD SPECIMEN Ordering Facility: [facility] Address: [address] [place] [address] Performed By: #### P TTAC #### [facility] CLIA [id number] [address] [place] [address] [place] Anion gap [Moles/Vol] 11 mmol/L Normal 9-18 [facility] Comment on above: Order Comment: Speci men Type: BLOOD SPECIMEN Ordering Facility: [facility] Address: [address] [place] [address] Performed By: #### P TTAC #### [facility] CLIA [id number] [address] [place] [address] [place] AST [Catalytic activity/Vol] 10 U/L Low 13-35 [facility] Comment on above: Order Comment: Speci men Type: BLOOD SPECIMEN Ordering Facility: [facility] Address: [address] [place] [address] Performed By: #### P TTAC #### [facility] CLIA [id number] [address] [place] [address] [place] Bilirubin [Mass/Vol] 0.4 mg/dL Normal 0.2-1.3 [facility] Comment on above: Order Comment: Speci men Type: BLOOD SPECIMEN Ordering Facility: [facility] Address: [address] [place] [address] Performed By: #### P TTAC #### [facility] CLIA [id number] [address] [place] [address] [place] Calcium [Mass/Vol] 10.0 mg/dL Normal 8.5-10.2 [facility] Comment on above: Order Comment: Speci men Type: BLOOD SPECIMEN Ordering Facility: [facility] Address: [address] [place] [address] Performed By: #### P TTAC #### [facility] CLIA [id number] [address] [place] [address] [place] Chloride [Moles/Vol] 102 mmol/L Normal 97-105 [facility] Comment on above: Order Comment: Speci men Type: BLOOD SPECIMEN Ordering Facility: [facility] Address: [address] [place] [address] Performed By: #### P TTAC #### [facility] CLIA [id number] [address] [place] [address] [place] CO2 [Moles/Vol] 26 mmol/L Normal 22-30 [facility] Comment on above: Order Comment: Speci men Type: BLOOD SPECIMEN Ordering Facility: [facility] Address: [address] [place] [address] Performed By: #### P TTAC #### [facility] CLIA [id number] [address] [place] [address] [place] Creatinine [Mass/Vol] 1.03 mg/dL High 0.58-0.96 [facility] Comment on above: Order Comment: Speci men Type: BLOOD SPECIMEN Ordering Facility: [facility] Address: [address] [place] [address] Performed By: #### P TTAC #### [facility] CLIA [id number] [address] [place] [address] [place] Creatinine and Glomerular filtration rate.predicted panel (S/P/Bld) 68 mL/min/1.73m??? Normal >=60 [facility] Comment on above: Order Comment: Renetta la Type: BLOOD SPECIMEN Ordering Facility: [facility] Address: [address] [place] [address] Result Comment: Nura triana Glomerular Filtration Rate (eGFR) is calculated using [...] GFR. Performed By: #### P TTAC #### [facility] CLIA [id number] [address] [place] [address] [place] Glucose [Mass/Vol] 100 mg/dL High 74-99 [facility] Comment on above: Order Comment: Renetta la Type: BLOOD SPECIMEN Ordering Facility: [facility] Address: [address] [place] [address] Result Comment: The [place] Diabetes Association (ADA) provides guidance for cutoff [...] Standards of Medical Care in Diabetes 2016, [place] [employer]. Diabetes Care. 2016.39(Suppl 1). Performed By: #### P TTAC #### [facility] CLIA [id number] [address] [place] [address] [place] Potassium [Moles/Vol] 4.2 mmol/L Normal 3.7-5.1 [facility] Comment on above: Order Comment: Speci men Type: BLOOD SPECIMEN Ordering Facility: [facility] Address: [address] [place] [address] Performed By: #### P TTAC #### [facility] CLIA [id number] [address] [place] [address] [place] Protein [Mass/Vol] 7.4 g/dL Normal 6.3-8.0 [facility] Comment on above: Order Comment: Speci men Type: BLOOD SPECIMEN Ordering Facility: [facility] Address: [address] [place] [address] Performed By: #### P TTAC #### [facility] CLIA [id number] [address] [place] [address] [place] Sodium [Moles/Vol] 139 mmol/L Normal 136-144 [facility] Comment on above: Order Comment: Speci men Type: BLOOD SPECIMEN Ordering Facility: [facility] Address: [address] [place] [address] Performed By: #### P TTAC #### [facility] CLIA [id number] [address] [place] [address] [place] Urea nitrogen [Mass/Vol] 31 mg/dL High 7-21 [facility] Comment on above: Order Comment: Maikoli abhinav Type: BLOOD SPECIMEN Ordering Facility: [facility] Address: [address] [place] [address] Performed By: #### P TTAC #### [facility] CLIA [id number] [address] [place] [address] [place] ECG COMPLETEon 06-06-2023 ECG COMPLETE Ventricular Rate : 5 7 BPM Atrial Rate : 57 BPM P-R Interval : 160 ms QRS Duration : 80 ms Q-T Interval : 412 ms QTC Calculation(Bazett) : 401 ms Calculated P Lima : 51 degrees Calculated R Lima : 31 degrees Calculated T Lima : 98 degrees SINUS BRADYCARDIA WITH SINUS ARRHYTHMIA T WAVE ABNORMALITY, CONSIDER LATERAL ISCHEMIA ABNORMAL ECG WHEN COMPARED WITH ECG OF 01-JUN-2023 15:34, MINIMAL CRITERIA FOR INFERIOR INFARCT ARE NO LONGER PRESENT T WAVE INVERSION NO LONGER EVIDENT IN INFERIOR LEADS T WAVE INVERSION MORE EVIDENT IN LATERAL LEADS Confirmed by DEEAJY ASHRAF M.D. ([id number]) on 06/06/2023 2:49:14 PM NAME : DAMARI RIOS PID : [id number] : 1975 Gender : Female Race : ORD : [id number] Procedure Date : Jun 06 2023 09:22:38 [...] , Acquired by : JOSE ALMAGUER Normal [facility] HIGH SENSITIVITY TROPONIN To n 06-06-2023 Troponin T.cardiac High sensitivity method [Mass/Vol] <6 Normal <12 [facility] Comment on above: Order Comment: Renetta la Type: BLOOD SPECIMENOrdering Facility: [facility] Address: [address] [place] [address] Result Comment: When assessing risk for acute [...] MACE. Performed By: #### H STNT, CKCKMB ####[facility] [id number] [place] [address] [place] Troponin T.cardiac High sensitivity method [Mass/Vol] <6 Normal <12 [facility] Comment on above: Order Comment: Renetta la Type: BLOOD SPECIMEN Ordering Facility: [facility] Address: [address] [place] [address] Result Comment: When assessing risk for acute [...] MACE. Performed By: #### P TTAC #### [facility] CLIA [id number] [address] [place] [address] [place] Magnesium SerPl-mCncon 06-06 Magnesium [Mass/Vol] 2.1 mg/dL Normal 1.7-2.3 [facility] Comment on above: Order Comment: Speci men Type: BLOOD SPECIMEN Ordering Facility: [facility] Address: [address] [place] [address] Performed By: #### P TTAC #### [facility] CLIA [id number] [address] [place] [address] [place] NM CARDIAC PERF STRESS/PHARM on 06-06-2023 NM CARDIAC PERF STRESS/PHARM * * *Final Report* * * * * * SEE BOTTOM OF REPORT FOR ADDENDED TEXT * * * DATE OF EXAM: Jun 06 2023 1:17PM [facility] 0006 - NM CARDIAC PERF [...] later. See administered radiotracer and doses below. [facility] Date of service: 06/06/2023 11:47:39 AM [...] * * * ------ Stress ECG Report: [facility] Date of service: 06/06/2023 11:47:39 AM Ordering physician: ADRIANA SHELBY research and development specialist: Aliyah Rosenberg Insurance Billing Clerk: Lydia Parrish Interpreting physician: Fernandez Sweet MD Patient name: MRS. DAMARI RIOS Age: [...] 121/60 mmHg. The double product achieved was [address]. Medications: Last Used NORVASC 1 Days ELIQUIS 1 Days COREG 1 Days PEPCID 1 Days PROTONIX 1 Days PREDNISONE 1 Days FLOMAX 1 Days Resting ECG: Normal Sinus Rhythm and Nonspecific T Wave Changes Symptoms at rest: No symptoms Pharamcologic Protocol: Regadenoson Stress Exercise Table: +------+ +--- +---+---+ Stage Time (min) HR SYS ORIANA +------+ +--- +---+---+ 1 1.3 136 121 [...] / 60 mmHg Rate Pressure Product (RPP): 52718 Stress Exercise Observations: Reason for test termination: end of protocol, Symptoms during test: No symptoms provoked during stress, Blood pressure response: Normal BP response, ST segment and T wave changes: Borderline ST depression (<1 mm or any upslope) during stress and Borderline ST depression (<1 mm or any upslope) after stress and Arrhythmias: No arrhythmias Comments: Dr. Sweet providing direct supervision during test Metabolic Exercise Data Variable: Observed (more content not included)... Normal [facility] NURSING PROGon 06-06-2023 NURSING PROG HNO ID: [id number] Author: Aliyah Rosenberg RN Service: ? Author Type: Registered Nurse Type: Nursing Progress Note Filed: 06/06/2023 12:29 PM Note Text: Covering bail attacher, Dr. Sweet, was contacted. Availability verified for direct supervision of the stress test. No contraindications to stress test noted. Pt. Id confirmed, allergies reviewed. IV assessed for patency. Lexiscan administered and observed per protocol. Denies c/o discomfort or allergic reaction. Normal [facility] Phosphate SerPl-mCncon 06-06 Phosphate [Mass/Vol] 4.0 mg/dL Normal 2.7-4.8 [facility] Comment on above: Order Comment: Speci men Type: BLOOD SPECIMEN Ordering Facility: [facility] Address: [address] [place] [address] Performed By: #### 5 8410-2 #### [facility] CLIA [id number] [place] [id number] [place] US KIDNEY/BLADDERon 06-06-20 23 US KIDNEY/BLADDER * * *Final Report* * * DATE OF EXAM: Jun 06 2023 1:34PM [facility] 1055 - KIDNEY/BLADDER / PROCEDURE REASON: Flank pain, kidney [...] on Jun 06 2023 2:30PM EST [id number] [facility] XR ABDOMEN 1V SUPINEon 06-06 XR [...] Jun 06 2023 10:48AM EST [id number] Normal [facility] XR CHEST 1V FRONTAL PORTon 1 [...] on Jun 06 2023 10:59AM EST [id number] [facility] Basic metabolic 2000 panelon 06-05-2023 Anion gap [Moles/Vol] 9 mmol/L Normal 9-18 [facility] Comment on above: Order Comment: Speci men Type: BLOOD SPECIMENOrdering Facility: [facility] Address: [address] [place] [address] Performed By: #### 2 4321-2, 16555-5 ####[facility]IA [id number] [place] [address] [place] Calcium [Mass/Vol] 9.7 mg/dL Normal 8.5-10.2 [facility] Comment on above: Order Comment: Speci men Type: BLOOD SPECIMENOrdering Facility: [facility] Address: [address] [place] [address] Performed By: #### 2 4321-2, 43626-8 ####[facility] [id number] [place], [place] [address] [place] Chloride [Moles/Vol] 103 mmol/L Normal 97-105 [facility] Comment on above: Order Comment: Speci men Type: BLOOD SPECIMENOrdering Facility: [facility] Address: [address] [place] [address] Performed By: #### 2 4321-2, 50648-7 ####[facility]ORATORYCLIA [id number] [place] [id number] [place] CO2 [Moles/Vol] 27 mmol/L Normal 22-30 [facility] Comment on above: Order Comment: Speci men Type: BLOOD SPECIMENOrdering Facility: [facility] Address: [address] [place] [address] Performed By: #### 2 4321-2, 31848-4 ####[facility]ORATORYCLIA [id number] [place] [address] [place] Creatinine [Mass/Vol] 0.95 mg/dL Normal 0.58-0.96 [facility] Comment on above: Order Comment: Speci men Type: BLOOD SPECIMENOrdering Facility: [facility] Address: [address] [place] [address] Performed By: #### 2 4321-2, 81313-7 ####[facility]ORATORYCLIA [id number] [place] [address] [place] Creatinine and Glomerular filtration rate.predicted panel (S/P/Bld) 75 mL/min/1.73m??? Normal >=60 [facility] Comment on above: Order Comment: Speci men Type: BLOOD SPECIMENOrdering Facility: [facility] Address: [address] [place] [address] Result Comment: Nura mated Glomerular Filtration Rate [...] actual GFR. Performed By: #### 2 4321-2, 26240-7 ####[facility]ORYCLIA [id number] [place] [address] [place] Glucose [Mass/Vol] 102 mg/dL High 74-99 [facility] Comment on above: Order Comment: Renetta la Type: BLOOD SPECIMENOrdering Facility: [facility] Address: [address] [place] [address] Result Comment: The [place] [employer] (ADA) provides guidance for cutoff [...] Standards of Medical Care in Diabetes 2016, [place] [employer]. Diabetes Care. 2016.39(Suppl 1). Performed By: #### 2 4321-2, 69211-9 ####[facility]ORYCLIA [id number] [place] [address] [place] Potassium [Moles/Vol] 3.8 mmol/L Normal 3.7-5.1 [facility] Comment on above: Order Comment: Renetta la Type: BLOOD SPECIMENOrdering Facility: [facility] Address: [address] [place] [address] Performed By: #### 2 4321-2, 27435-9 ####[facility]ORATORYCLIA [id number] [place] [id number] [place] Sodium [Moles/Vol] 139 mmol/L Normal 136-144 [facility] Comment on above: Order Comment: Renetta la Type: BLOOD SPECIMENOrdering Facility: [facility] Address: [address] [place] [address] Performed By: #### 2 4321-2, 99564-5 ####[facility]ATORYCLIA [id number] [place] [address] [place] Urea nitrogen [Mass/Vol] 26 mg/dL High 7-21 [facility] Comment on above: Order Comment: Speci men Type: BLOOD SPECIMENOrdering Facility: [facility] Address: [address] [place] [address] Performed By: #### 2 4321-2, 79313-7 ####[facility]ATORYCLIA [id number] [place] [address] [place] CBC W Auto Differential pane l (Bld)on 06-05-2023 Basophils (Bld) [#/Vol] 0.03 10*3/uL Normal <0.11 [facility] Comment on above: Order Comment: Speci men Type: BLOOD SPECIMENOrdering Facility: [facility] Address: [address] [place] [address] Performed By: #### 5 7021-8 ####[facility]ORATORYCLIA [id number] [place] [address] [place] Basophils/100 WBC (Bld) 0.2 % Normal [facility] Comment on above: Order Comment: Speci men Type: BLOOD SPECIMENOrdering Facility: [facility] Address: [address] [place] [address] Performed By: #### 5 7021-8 ####[facility]ORATORYCLIA [id number] [place] [address] [place] Differential cell count method Nom (Bld) Auto Normal [facility] Comment on above: Order Comment: Speci men Type: BLOOD SPECIMENOrdering Facility: [facility] Address: [address] [place] [address] Performed By: #### 5 7021-8 ####[facility]ATORYCLIA [id number] [place] [address] [place] Eosinophils (Bld) [#/Vol] 0.09 10*3/uL Normal <0.46 [facility] Comment on above: Order Comment: Speci men Type: BLOOD SPECIMENOrdering Facility: [facility] Address: [address] [place] [address] Performed By: #### 5 7021-8 ####[facility]ORATORYCLIA [id number] [place] [address] [place] Eosinophils/100 WBC (Bld) 0.7 % Normal [facility] Comment on above: Order Comment: Speci men Type: BLOOD SPECIMENOrdering Facility: [facility] Address: [address] [place] [address] Performed By: #### 5 7021-8 ####[facility]ORATORYCLIA [id number] [place] [address] [place] Erythrocyte distribution width (RBC) [Ratio] 13.1 % Normal 11.5-15.0 [facility] Comment on above: Order Comment: Speci men Type: BLOOD SPECIMENOrdering Facility: [facility] Address: [address] [place] [address] Performed By: #### 5 7021-8 ####[facility]ORATORYCLIA [id number] [place] [address] [place] Hematocrit (Bld) [Volume fraction] 41.1 % Normal 36.0-46.0 [facility] Comment on above: Order Comment: Speci men Type: BLOOD SPECIMENOrdering Facility: [facility] Address: [address] [place] [address] Performed By: #### 5 7021-8 ####[facility]ATORYCLIA [id number] [place] [address] [place] Hemoglobin (Bld) [Mass/Vol] 13.7 g/dL Normal 11.5-15.5 [facility] Comment on above: Order Comment: Speci men Type: BLOOD SPECIMENOrdering Facility: [facility] Address: [address] [place] [address] Performed By: #### 5 7021-8 ####[facility]ORATORYCLIA [id number] [place] [address] [place] Immature granulocytes (Bld) [#/Vol] 0.09 10*3/uL Normal <0.10 [facility] Comment on above: Order Comment: Speci men Type: BLOOD SPECIMENOrdering Facility: [facility] Address: [address] [place] [address] Performed By: #### 5 7021-8 ####[facility]ORATORYCLIA [id number] [place] [address] [place] Immature granulocytes/100 WBC (Bld) 0.7 % Normal [facility] Comment on above: Order Comment: Speci men Type: BLOOD SPECIMENOrdering Facility: [facility] Address: [address] [place] [address] Performed By: #### 5 7021-8 ####[facility]ORATORYCLIA [id number] [place] [address] [place] Lymphocytes (Bld) [#/Vol] 4.03 10*3/uL High 1.00-4.00 [facility] Comment on above: Order Comment: Speci men Type: BLOOD SPECIMENOrdering Facility: [facility] Address: [address] [place] [address] Performed By: #### 5 7021-8 ####[facility]ORATORYCLIA [id number] [place] [address] [place] Lymphocytes/100 WBC (Bld) 32.2 % Normal [facility] Comment on above: Order Comment: Speci men Type: BLOOD SPECIMENOrdering Facility: [facility] Address: [address] [place] [address] Performed By: #### 5 7021-8 ####[facility]ORATORYCLIA [id number] [place] [address] [place] MCH (RBC) [Entitic mass] 30.9 pg Normal 26.0-34.0 [facility] Comment on above: Order Comment: Speci men Type: BLOOD SPECIMENOrdering Facility: [facility] Address: [address] [place] [address] Performed By: #### 5 7021-8 ####[facility]ORATORYCLIA [id number] [place] [address] [place] MCHC (RBC) [Mass/Vol] 33.3 g/dL Normal 30.5-36.0 [facility] Comment on above: Order Comment: Speci men Type: BLOOD SPECIMENOrdering Facility: [facility] Address: [address] [place] [address] Performed By: #### 5 7021-8 ####[facility]ORATORYCLIA [id number] [place] [address] [place] MCV (RBC) [Entitic vol] 92.8 fL Normal 80.0-100.0 [facility] Comment on above: Order Comment: Speci men Type: BLOOD SPECIMENOrdering Facility: [facility] Address: [address] [place] [address] Performed By: #### 5 7021-8 ####[facility]ORATORYCLIA [id number] [place] [address] [place] Monocytes (Bld) [#/Vol] 0.77 10*3/uL Normal <0.87 [facility] Comment on above: Order Comment: Speci men Type: BLOOD SPECIMENOrdering Facility: [facility] Address: [address] [place] [address] Performed By: #### 5 7021-8 ####[facility]ORATORYCLIA [id number] [place] [address] [place] Monocytes/100 WBC (Bld) 6.1 % Normal [facility] Comment on above: Order Comment: Speci men Type: BLOOD SPECIMENOrdering Facility: [facility] Address: [address] [place] [address] Performed By: #### 5 7021-8 ####[facility]ORATORYCLIA [id number] [place] [address] [place] Neutrophils (Bld) [#/Vol] 7.52 10*3/uL High 1.45-7.50 [facility] Comment on above: Order Comment: Speci men Type: BLOOD SPECIMENOrdering Facility: [facility] Address: [address] [place] [address] Performed By: #### 5 7021-8 ####[facility]ORATORYCLIA [id number] [place] [address] [place] Neutrophils/100 WBC (Bld) 60.1 % Normal [facility] Comment on above: Order Comment: Speci men Type: BLOOD SPECIMENOrdering Facility: [facility] Address: [address] [place] [address] Performed By: #### 5 7021-8 ####[facility]ATORYCLIA [id number] [place] [address] [place] Nucleated RBC (Bld) [#/Vol] 10*3/uL Normal <0.01 [facility] Comment on above: Order Comment: Speci men Type: BLOOD SPECIMENOrdering Facility: [facility] Address: [address] [place] [address] Performed By: #### 5 7021-8 ####[facility]ORATORYCLIA [id number] [place] [address] [place] Nucleated RBC/100 WBC (Bld) [Ratio] 0.0 /100 WBC Normal [facility] Comment on above: Order Comment: Speci men Type: BLOOD SPECIMENOrdering Facility: [facility] Address: [address] [place] [address] Performed By: #### 5 7021-8 ####[facility]ORATORYCLIA [id number] [place] [address] [place] Platelet mean volume (Bld) [Entitic vol] 8.7 fL Low 9.0-12.7 [facility] Comment on above: Order Comment: Speci men Type: BLOOD SPECIMENOrdering Facility: [facility] Address: [address] [place] [address] Performed By: #### 5 7021-8 ####[facility]ORATORYCLIA [id number] [place] [address] [place] Platelets (Bld) [#/Vol] 316 10*3/uL Normal 150-400 [facility] Comment on above: Order Comment: Speci men Type: BLOOD SPECIMENOrdering Facility: [facility] Address: [address] [place] [address] Performed By: #### 5 7021-8 ####[facility]ORATORYCLIA [id number] [place] [address] [place] RBC (Bld) [#/Vol] 4.43 10*6/uL Normal 3.90-5.20 [facility] Comment on above: Order Comment: Speci men Type: BLOOD SPECIMENOrdering Facility: [facility] Address: [address] [place] [address] Performed By: #### 5 7021-8 ####[facility] LABORATORYCLIA [id number] [place] [address] [place] WBC (Bld) [#/Vol] 12.53 10*3/uL High 3.70-11.00 [facility] Comment on above: Order Comment: Speci men Type: BLOOD SPECIMENOrdering Facility: [facility] Address: [address] [place] [address] Performed By: #### 5 7021-8 ####[facility] LABORATORYCLIA [id number] [address] CONSULT PROGon 06-05-2023 CONSULT PROG HNO ID: [id number] Author: Melinda Coello APRN.SOUND RECORDIST Service: Pulmonary Disease Author Type: Nurse Practitioner [...] (Oral) Resp 20 Ht 162.6 cm (5' 4) Wt 73.5 kg (162 lb) LMP 07/24/2016 [...] GLUC 102* CA 9.7 ABG: Invalid input(s): [id number] Respiratory/Nursing Documentation: O2 Therapy: Nasal Cannula (06/05/23 1117) DATA: Diagnostic tests reviewed for today's visit: Most recent labs and imaging results. Melinda Coello APRN.SOUND RECORDIST Case discussed with a respiratory institute staff physician DATE: June 05, 2023 TIME: 3:13 PM Normal [facility] FLUABV+SARS-CoV-2+RSV Pnl Re sp ANDRY+probeon 06-05-2023 FLUABV+SARS-CoV-2+RSV Pnl Resp ANDRY+probe COVID 19 RESULT: Not detected The method used is RT-PCR or an equivalent NAAT method. Reference Range(the expected result in uninfected individuals): Not detected INFLUENZA A PCR: Not detected INFLUENZA B PCR: Not detected RSV PCR: Not detected Normal [facility] Comment on above: Performed By: #### 9 5941-1 ####[facility] LABORATORYCLIA [id number] [address] [place] Procalcitonin SerPl-mCncon 1 08-06-2022 Procalcitonin [Mass/Vol] ng/mL Normal <0.09 [facility] Comment on above: Order Comment: Speci men Type: BLOOD SPECIMENOrdering Facility: [facility] Address: [address] [place] [address] Result Comment: For a guided interpretation of test results, please visit the Change in Procalcitonin Calculator, [email or web address]. Performed By: #### 2 4321-2, 39127-1 ####[facility] LABORATORYCLIA [id number] [place] [address] [place] XR CHEST 2V [...] on Jun 06 2023 9:02AM EST [id number] [facility] ALLIED HEALTHon 06-04-2023 ALLIED HEALTH HNO ID: [id number] Author: Alex Maddox RT(R) Service: ? Author [...] IV DATA: Not applicable SIGNED BY: RT Emmanuel(R) June 04, 2023 8:18 AM [facility] CONSULT PROGon 06-04-2023 CONSULT PROG HNO ID: [id number] Author: Melinda Coello APRN.SOUND RECORDIST Service: Pulmonary Disease Author Type: Nurse Practitioner [...] (Oral) Resp 18 Ht 162.6 cm (5' 4) Wt 73.5 kg (162 lb) LMP 07/24/2016 [...] -- -- -- 111 20 -- 06/03/23 193 -- -- -- 99 20 93 % [...] 1.0 APTT 83.7* 28.6 ABG: Invalid input(s): [id number] Respiratory/Nursing Documentation: O2 Therapy: Nasal Cannula (06/04/23 1157) DATA: Diagnostic tests reviewed for today's visit: Most recent labs and imaging results. Melinda Coello APRN.SOUND RECORDIST Case discussed with a respiratory institute staff physician DATE: June 04, 2023 TIME: 4:16 PM [facility] PT EDon 06-04-2023 PT ED HNO ID: [id number] Author: Tommy Diggs RPh Service: Pharmacy Author [...] adverse drug reactions, and interactions. Tommy Diggs [facility] US DVT LOWER BILon 3 US DVT [...] Jun 04 2023 4:03PM EST [id number] Normal [facility] Urinalysis complete panel (U )on 06-03-2023 Bacteria LM.HPF (Urine sed) [#/Area] Rare Abnormal None Seen [facility] Comment on above: Order Comment: Renetta la Type: BLOOD SPECIMEN [facility] Address: [address] [place] [address] Performed By: #### 5 8410-2 #### [facility] CLIA [id number] [address] [place] [address] [place] Bilirubin Ql (U) Negative Normal Negative [facility] Comment on above: Order Comment: Renetta la Type: BLOOD SPECIMEN [facility]ing Facility: [facility] Address: [address] [place] [address] Performed By: #### 5 8410-2 #### [facility] CLIA [id number] [address] [place] [address] [place] Clarity (Unsp spec) Clear Normal Clear [facility] Comment on above: Order Comment: Speci men Type: BLOOD SPECIMEN Ordering Facility: [facility] Address: [address] [place] [address] Performed By: #### 5 8410-2 #### [facility] CLIA [id number] [address] [place] [address] [place] Color (U) Light Yellow Normal Yellow [facility] Comment on above: Order Comment: Speci men Type: BLOOD SPECIMEN [facility]ing Facility: [facility] Address: [address] [place] [address] Performed By: #### 5 8410-2 #### [facility] CLIA [id number] [address] [place] [address] [place] Epithelial cells LM.HPF (Urine sed) [#/Area] Moderate Normal [facility] Comment on above: Order Comment: Speci men Type: BLOOD SPECIMEN [facility]ing Facility: [facility] Address: [address] [place] [address] Performed By: #### 5 8410-2 #### [facility] CLIA [id number] [address] [place] [address] [place] Glucose Test strip (U) [Mass/Vol] Negative Normal Trace, Negative [facility] Comment on above: Order Comment: Speci men Type: BLOOD SPECIMEN [facility]ing Facility: [facility] Address: [address] [place] [address] Performed By: #### 5 8410-2 #### [facility] CLIA [id number] [address] [place] [address] [place] Hemoglobin Ql (U) Negative Normal Negative, Trace [facility] Comment on above: Order Comment: Speci men Type: BLOOD SPECIMEN [facility]ing Facility: [facility] Address: [address] [place] [address] Performed By: #### 5 8410-2 #### [facility] CLIA [id number] [address] [place] [address] [place] Ketones Ql (U) Negative Normal Negative, Trace [facility] Comment on above: Order Comment: Speci men Type: BLOOD SPECIMEN [facility]ing Facility: [facility] Address: [address] [place] [address] Performed By: #### 5 8410-2 #### [facility] CLIA [id number] [address] [place] [address] [place] Leukocyte esterase Test strip Ql (U) Negative Normal Negative, 25 Souleymane/uL [facility] Comment on above: Order Comment: Speci men Type: BLOOD SPECIMEN [facility]ing Facility: [facility] Address: [address] [place] [address] Performed By: #### 5 8410-2 #### [facility] CLIA [id number] [address] [place] [address] [place] Nitrite Ql (U) Negative Normal Negative [facility] Comment on above: Order Comment: Speci men Type: BLOOD SPECIMEN [facility]ing Facility: [facility] Address: [address] [place] [address] Performed By: #### 5 8410-2 #### [facility] CLIA [id number] [address] [place] [address] [place] pH (U) 6.5 [pH] Normal 5.0-8.0 [facility] Comment on above: Order Comment: Speci men Type: BLOOD SPECIMEN Ordering Facility: [facility] Address: [address] [place] [address] Performed By: #### 5 8410-2 #### [facility] CLIA [id number] [address] [place] [address] [place] Protein (U) [Mass/Vol] Negative Normal Trace , Negative [facility] Comment on above: Order Comment: Speci men Type: BLOOD SPECIMEN Ordering Facility: [facility] Address: [address] [place] [address] Performed By: #### 5 8410-2 #### [facility] CLIA [id number] [address] [place] [address] [place] RBC LM.HPF (Urine sed) [#/Area] 0-3 /HPF Normal 0-3 /HPF [facility] Comment on above: Order Comment: Speci men Type: BLOOD SPECIMEN Ordering Facility: [facility] Address: [address] [place] [address] Performed By: #### 5 8410-2 #### [facility] CLIA [id number] [address] [place] [address] [place] Specific gravity (U) [Rel density] 1.012 Normal 1.005-1.030 [facility] Comment on above: Order Comment: Speci men Type: BLOOD SPECIMEN Ordering Facility: [facility] Address: [address] [place] [address] Performed By: #### 5 8410-2 #### [facility] CLIA [id number] [address] [place] [address] [place] Urobilinogen Ql (U) Negative Normal Negative [facility] Comment on above: Order Comment: Speci men Type: BLOOD SPECIMEN Ordering Facility: [facility] Address: [address] [place] [address] Performed By: #### 5 8410-2 #### [facility] IA [id number] [address] [place] [address] [place] WBC LM.HPF (Urine sed) [#/Area] 0-5 /HPF Normal 0-5 /HPF [facility] Comment on above: Order Comment: Speci men Type: BLOOD SPECIMEN Ordering Facility: [facility] Address: [address] [place] [address] Performed By: #### 5 8410-2 #### [facility] IA [id number] [address] [place] [address] [place] CBC panel Auto (Bld)on 06-02 Erythrocyte distribution width (RBC) [Ratio] 13.2 % Normal 11.5-15.0 [facility] Comment on above: Order Comment: Speci men Type: BLOOD SPECIMEN Ordering Facility: [facility] Address: [address] [place] [address] Performed By: #### P TTA #### [facility] CLIA [id number] [address] [place] [address] [place] Hematocrit (Bld) [Volume fraction] 42.4 % Normal 36.0-46.0 [facility] Comment on above: Order Comment: Speci men Type: BLOOD SPECIMEN Ordering Facility: [facility] Address: [address] [place] [address] Performed By: #### P TTAC #### [facility] CLIA [id number] [address] [place] [address] [place] Hemoglobin (Bld) [Mass/Vol] 14.1 g/dL Normal 11.5-15.5 [facility] Comment on above: Order Comment: Speci men Type: BLOOD SPECIMEN Ordering Facility: [facility] Address: [address] [place] [address] Performed By: #### P TTAC #### [facility] CLIA [id number] [address] [place] [address] [place] MCH (RBC) [Entitic mass] 30.3 pg Normal 26.0-34.0 [facility] Comment on above: Order Comment: Speci men Type: BLOOD SPECIMEN Ordering Facility: [facility] Address: [address] [place] [address] Performed By: #### P TTAC #### [facility] CLIA [id number] [address] [place] [address] [place] MCHC (RBC) [Mass/Vol] 33.3 g/dL Normal 30.5-36.0 [facility] Comment on above: Order Comment: Speci men Type: BLOOD SPECIMEN Ordering Facility: [facility] Address: [address] [place] [address] Performed By: #### P TTAC #### [facility] CLIA [id number] [address] [place] [address] [place] MCV (RBC) [Entitic vol] 91.2 fL Normal 80.0-100.0 [facility] Comment on above: Order Comment: Speci men Type: BLOOD SPECIMEN Ordering Facility: [facility] Address: [address] [place] [address] Performed By: #### P TTAC #### [facility] CLIA [id number] [address] [place] [address] [place] Nucleated RBC (Bld) [#/Vol] 10*3/uL Normal <0.01 [facility] Comment on above: Order Comment: Speci men Type: BLOOD SPECIMEN [facility] [facility] Address: [address] [place] [address] Performed By: #### P TTAC #### [facility] CLIA [id number] [address] [place] [address] [place] Platelet mean volume (Bld) [Entitic vol] 8.8 fL Low 9.0-12.7 [facility] Comment on above: Order Comment: Speci men Type: BLOOD SPECIMEN Ordering Facility: [facility] Address: [address] [place] [address] Performed By: #### P TTAC #### [facility] CLIA [id number] [address] [place] [address] [place] Platelets (Bld) [#/Vol] 334 10*3/uL Normal 150-400 [facility] Comment on above: Order Comment: Speci men Type: BLOOD SPECIMEN Ordering Facility: [facility] Address: [address] [place] [address] Performed By: #### P TTAC #### [facility] CLIA [id number] [address] [place] [address] [place] RBC (Bld) [#/Vol] 4.65 10*6/uL Normal 3.90-5.20 [facility] Comment on above: Order Comment: Speci men Type: BLOOD SPECIMEN Ordering Facility: [facility] Address: [address] [place] [address] Performed By: #### P TTAC #### [facility] CLIA [id number] [address] [place] [address] [place] WBC (Bld) [#/Vol] 9.25 10*3/uL Normal 3.70-11.00 [facility] Comment on above: Order Comment: Speci men Type: BLOOD SPECIMEN Ordering Facility: [facility] Address: [address] [place] [address] Performed By: #### P TTAC #### [facility] CLIA [id number] [address] [place] [address] [place] CONSULTon 06-02-2023 CONSULT HNO ID: [id number] Author: Adriana Martinez MD Service: Pulmonary Disease Author Type: Physician Type: Consults Filed: 06/02/2023 3:57 PM Note Text: pulmonary INITIAL CONSULT NOTE SERVICE DATE: 06/02/2023 REASON FOR CONSULT: pulmonary embolism REQUESTING PHYSICIAN: dr zainab croft PRIMARY CARE PHYSICIAN: Kimberly Cason MD Subjective Ms. Rios is a 47 [...] ULTRAM [TRAMADOL HCL] (more content not included)... [facility] CONSULT HNO ID: [id number] Author: Roby Ayala MD Service: Vascular Medicine Author Type: Physician [...] 18 (!) 94 % 162.6 cm (5' 4) 73.5 kg (162 lb) PHYSICAL EXAM: Alert, [...] 58 N (more content not included)... Normal [facility] HISTORY PHYSICALon 3 HISTORY PHYSICAL HNO ID: [id number] Author: Zainab Croft V, MD Service: Hospital Medicine Author Type: Physician Type: HANDP Filed: 06/02/2023 2:46 PM Note Text: HISTORY AND PHYSICAL EXAMINATION PATIENT NAME: Damari Rios SERVICE DATE: 06/02/2023 SERVICE TIME: 2:42 PM PRIMARY CARE PHYSICIAN: Kimberly Cason MD SUBJECTIVE CHIEF COMPLAINT: Pulm embolism HPI: [...] breath GI: (more content not included)... Normal [facility] HISTORY PHYSICAL HNO ID: [id number] Author: Maggi Harrison APRN.SOUND RECORDIST Service: General Internal Medicine Author Type: Nurse Practitioner Type: HANDP Filed: 06/02/2023 6:46 AM Note Text: Summary: admission History and Physical Examination SERVICE DATE: 06/02/2023 SERVICE TIME: 6:40 AM PRIMARY CARE PHYSICIAN: Kimberly Cason MD Subjective CHIEF COMPLAINT: sob HPI: This [...] OROPHARYNX: Neg (more content not included)... Normal [facility] NURSING PROGon 06-02-2023 NURSING PROG HNO ID: [id number] Author: Zuri Rascon RN Service: ? Author [...] in reach. Bed alarm on and functioning. Normal [facility] PTT, ANTICOAGULANT THERAPYon 06-02-2023 aPTT Coag (PPP) [Time] 83.7 s High 23.0-32.4 [facility] Comment on above: Order Comment: Speci men Type: BLOOD SPECIMENOrdering Facility: [facility] Address: [address] [place], [place] [address] Performed By: #### P [facility] ####[facility] [id number] [place] [id number] [facility] HE[facility] 06-01-2023 ALLIED HEALTH HNO ID: [id number] Author: Selvin Duvall RT(Manuel) Service: Radiology Author [...] RT Mauricio(Manuel) June 01, 2023 7:56 PM [facility] ALLIED HEALTH HNO ID: [id number] Author: Selvin Duvall RT(Manuel) Service: Radiology Author [...] DATE: June 01, 2023 TIME: 5:45 PM [facility] ALLIED HEALTH HNO ID: [id number] Author: Lelia Birmingham RT(Manuel) Service: Radiology Author [...] IV DATA: Not applicable SIGNED BY: RT Agustín(Manuel) June 01, 2023 4:17 PM [facility] CBC panel Auto (Bld)on 06-01 Erythrocyte distribution width (RBC) [Ratio] 13.1 % Normal 11.5-15.0 [facility] Comment on above: Order Comment: Speci men Type: BLOOD SPECIMEN Ordering Facility: [facility] Address: [address] [place] [address] Performed By: #### 5 8410-2 #### [facility] CLIA [id number] [address] [place] [address] [place] Hematocrit (Bld) [Volume fraction] 40.2 % Normal 36.0-46.0 [facility] Comment on above: Order Comment: Speci men Type: BLOOD SPECIMEN Ordering Facility: [facility] Address: [address] [place] [address] Performed By: #### 5 8410-2 #### [facility] CLIA [id number] [address] [place] [address] [place] Hemoglobin (Bld) [Mass/Vol] 13.8 g/dL Normal 11.5-15.5 [facility] Comment on above: Order Comment: Speci men Type: BLOOD SPECIMEN Ordering Facility: [facility] Address: [address] [place] [address] Performed By: #### 5 8410-2 #### [facility] CLIA [id number] [address] [place] [address] [place] MCH (RBC) [Entitic mass] 30.9 pg Normal 26.0-34.0 [facility] Comment on above: Order Comment: Speci men Type: BLOOD SPECIMEN Ordering Facility: [facility] Address: [address] [place] [address] Performed By: #### 5 8410-2 #### [facility] CLIA [id number] [address] [place] [address] [place] MCHC (RBC) [Mass/Vol] 34.3 g/dL Normal 30.5-36.0 [facility] Comment on above: Order Comment: Speci men Type: BLOOD SPECIMEN Ordering Facility: [facility] Address: [address] [place] [address] Performed By: #### 5 8410-2 #### [facility] CLIA [id number] [address] [place] [address] [place] MCV (RBC) [Entitic vol] 89.9 fL Normal 80.0-100.0 [facility] Comment on above: Order Comment: Speci men Type: BLOOD SPECIMEN Ordering Facility: [facility] Address: [address] [place] [address] Performed By: #### 5 8410-2 #### [facility] CLIA [id number] [address] [place] [address] [place] Nucleated RBC (Bld) [#/Vol] 10*3/uL Normal <0.01 [facility] Comment on above: Order Comment: Speci men Type: BLOOD SPECIMEN Ordering Facility: [facility] Address: [address] [place] [address] Performed By: #### 5 8410-2 #### [facility] IA [id number] [address] [place] [address] [place] Platelet mean volume (Bld) [Entitic vol] 8.7 fL Low 9.0-12.7 [facility] Comment on above: Order Comment: Speci men Type: BLOOD SPECIMEN Ordering Facility: [facility] Address: [address] [place] [address] Performed By: #### 5 8410-2 #### [facility] IA [id number] [address] [place] [address] [place] Platelets (Bld) [#/Vol] 346 10*3/uL Normal 150-400 [facility] Comment on above: Order Comment: Speci men Type: BLOOD SPECIMEN Ordering Facility: [facility] Address: [address] [place] [address] Performed By: #### 5 8410-2 #### [facility] CLIA [id number] [address] [place] [address] [place] RBC (Bld) [#/Vol] 4.47 10*6/uL Normal 3.90-5.20 [facility] Comment on above: Order Comment: Speci men Type: BLOOD SPECIMEN Ordering Facility: [facility] Address: [place] [facility] [place] [id number] Performed By: #### 5 8410-2 #### [facility] CLIA [id number] [address] [place] [address] [place] WBC (Bld) [#/Vol] 8.26 10*3/uL Normal 3.70-11.00 [facility] Comment on above: Order Comment: Speci men Type: BLOOD SPECIMEN Ordering Facility: [facility] Address: [place] [address] Performed By: #### 5 8410-2 #### [facility] CLIA [id number] [address] [place] [address] [place] CT ABD/PEL WO IVCONon 2022 CT ABD/PEL WO IVCON * * *Final Report* * * DATE OF EXAM: Jun 01 2023 8:00PM [facility] 0531 - CT ABD/PEL WO IVCON / [...] Jun 01 2023 8:13PM EST [id number] Normal [facility] CT CHEST W IVCON PEon 2022 CT CHEST W IVCON PE * * *Final Report* * * DATE OF EXAM: Jun 01 2023 5:49PM [facility] 0540 - CT CHEST W IVCON PE [...] upper quadrant likely related to recent surgery. Step Finisher (topogram) images: Unremarkable. IMPRESSION: Multiple segmental pulmonary emboli in the lingula and left lower lobe as described. No right heart strain. Trace bilateral pleural effusions. Tiny foci of pneumoperitoneum the right upper quadrant likely related to recent surgery. CRITICAL TEST/RESULTS: CRITICAL TEST/RESULTS: Acuity: Critical Finding: Pulmonary embolus Communication: Communicated with Salud Flores on 06/01/2023 6:05 PM via verbal communication. --END OF FINDING-- Transcribed Using Voice Recognition Transcribe Date/Time: Jun 01 2023 5:57P Dictated by: LEIGH BLACK MD This examination was interpreted and the report reviewed and electronically signed by: LEIGH BLACK MD on Jun 01 2023 6:06PM EST [id number] CRITICAL!! Invalid Interpretation Code [facility] Comprehensive metabolic 2000 panelon 06-01-2023 Albumin [Mass/Vol] 4.2 g/dL Normal 3.9-4.9 [facility] Comment on above: Order Comment: Renetta la Type: BLOOD SPECIMEN Ordering Facility: [facility] Address: [address] [place] [address] Performed By: #### 5 8410-2 #### [facility] CLIA [id number] [address] [place] [address] [place] ALP [Catalytic activity/Vol] 65 U/L Normal 34-123 [facility] Comment on above: Order Comment: Speci men Type: BLOOD SPECIMEN Ordering Facility: [facility] Address: [address] [place] [address] Performed By: #### 5 8410-2 #### [facility] CLIA [id number] [address] [place] [address] [place] ALT [Catalytic activity/Vol] 14 U/L Normal 7-38 [facility] Comment on above: Order Comment: Speci men Type: BLOOD SPECIMEN Ordering Facility: [facility] Address: [address] [place] [address] Performed By: #### 5 8410-2 #### [facility] CLIA [id number] [address] [place] [address] [place] Anion gap [Moles/Vol] 10 mmol/L Normal 9-18 [facility] Comment on above: Order Comment: Speci men Type: BLOOD SPECIMEN Ordering Facility: [facility] Address: [address] [place] [address] Performed By: #### 5 8410-2 #### [facility] CLIA [id number] [address] [place] [address] [place] AST [Catalytic activity/Vol] 15 U/L Normal 13-35 [facility] Comment on above: Order Comment: Speci men Type: BLOOD SPECIMEN Ordering Facility: [facility] Address: [place] [address] Performed By: #### 5 8410-2 #### [facility] CLIA [id number] [address] [place] [address] [place] Bilirubin [Mass/Vol] 0.4 mg/dL Normal 0.2-1.3 [facility] Comment on above: Order Comment: Speci men Type: BLOOD SPECIMEN Ordering Facility: [facility] Address: [place] [address] Performed By: #### 5 8410-2 #### [facility] CLIA [id number] [address] [place] [address] [place] Calcium [Mass/Vol] 9.5 mg/dL Normal 8.5-10.2 [facility] Comment on above: Order Comment: Speci men Type: BLOOD SPECIMEN Ordering Facility: [facility] Address: [address] [place] [address] Performed By: #### 5 8410-2 #### [facility] CLIA [id number] [address] [place] [address] [place] Chloride [Moles/Vol] 102 mmol/L Normal 97-105 [facility] Comment on above: Order Comment: Speci men Type: BLOOD SPECIMEN Ordering Facility: [facility] Address: [address] [place] [address] Performed By: #### 5 8410-2 #### [facility] CLIA [id number] [address] [place] [address] [place] CO2 [Moles/Vol] 28 mmol/L Normal 22-30 [facility] Comment on above: Order Comment: Speci men Type: BLOOD SPECIMEN Ordering Facility: [facility] Address: [address] [place] [address] Performed By: #### 5 8410-2 #### [facility] CLIA [id number] [address] [place] [address] [place] Creatinine [Mass/Vol] 1.08 mg/dL High 0.58-0.96 [facility] Comment on above: Order Comment: Speci men Type: BLOOD SPECIMEN Ordering Facility: [facility] Address: [address] [place] [address] Performed By: #### 5 8410-2 #### [facility] CLIA [id number] [address] [place] [address] [place] Creatinine and Glomerular filtration rate.predicted panel (S/P/Bld) 64 mL/min/1.73m??? Normal >=60 [facility] Comment on above: Order Comment: Speci men Type: BLOOD SPECIMEN Ordering Facility: [facility] Address: [address] [place] [address] Result Comment: Nura mated Glomerular Filtration Rate [...] GFR. Performed By: #### 5 8410-2 #### [facility] CLIA [id number] [address] [place] [address] [place] Glucose [Mass/Vol] 90 mg/dL Normal 74-99 [facility] Comment on above: Order Comment: Renetta la Type: BLOOD SPECIMEN Ordering Facility: [facility] Address: [address] [place] [address] Result Comment: The [place] [employer] (ADA) provides guidance for cutoff [...] Standards of Medical Care in Diabetes 2016, [place] [employer]. Diabetes Care. 2016.39(Suppl 1). Performed By: #### 5 8410-2 #### [facility] IA [id number] [address] [place] [address] [place] Potassium [Moles/Vol] 4.2 mmol/L Normal 3.7-5.1 [facility] Comment on above: Order Comment: Renetta la Type: BLOOD SPECIMEN Ordering Facility: [facility] Address: [address] [place] [address] Performed By: #### 5 8410-2 #### [facility] CLIA [id number] [address] [place] [address] [place] Protein [Mass/Vol] 7.3 g/dL Normal 6.3-8.0 [facility] Comment on above: Order Comment: Renetta la Type: BLOOD SPECIMEN Ordering Facility: [facility] Address: [address] [place] [address] Performed By: #### 5 8410-2 #### [facility] CLIA [id number] [address] [place] [address] [place] Sodium [Moles/Vol] 140 mmol/L Normal 136-144 [facility] Comment on above: Order Comment: Speci men Type: BLOOD SPECIMEN Ordering Facility: [facility] Address: [address] [place] [address] Performed By: #### 5 8410-2 #### [facility] CLIA [id number] [address] [place] [address] [place] Urea nitrogen [Mass/Vol] 18 mg/dL Normal 7-21 [facility] Comment on above: Order Comment: Speci men Type: BLOOD SPECIMEN Ordering Facility: [facility] Address: [address] [place] [address] Performed By: #### 5 8410-2 #### [facility] CLIA [id number] [address] [place] [address] [place] ECG COMPLETEon 06-01-2023 ECG COMPLETE Ventricular Rate : 6 6 BPM Atrial Rate : 66 BPM P-R Interval : 150 ms QRS Duration : 78 ms Q-T Interval : 382 ms QTC Calculation(Bazett) : 400 ms Calculated P Lima : 44 degrees Calculated R Lima : 62 degrees Calculated T Lima : 1 degrees NORMAL SINUS RHYTHM WITH SINUS ARRHYTHMIA CANNOT RULE OUT INFERIOR INFARCT , AGE UNDETERMINED ABNORMAL ECG WHEN COMPARED WITH ECG OF 17-MAR-2015 08:30, ST NO LONGER ELEVATED IN LATERAL LEADS T WAVE INVERSION NOW EVIDENT IN INFERIOR LEADS T WAVE INVERSION NOW EVIDENT IN LATERAL LEADS Confirmed by MD LYDIA, KONRAD ([id number]), film editor supervisor JOSE C STEVE ([id number]) on 06/02/2023 10:12:19 AM NAME : DAMARI RIOS PID : [id number] : 1975 Gender : Female Race : ORD : [id number] Procedure Date : Jun 01 2023 15:34:17 [...] LATERAL LEADS Confirmed by MD FREEMAN BRIAN ([id number]), film editor supervisor JOSE C STEVE ([id number]) on 06/02/2023 10:12:19 AM Test Reason : Chest Pain Location : 26 : ER L ED Overread By : MD FREEMAN BRIAN Edited By : JOSE C STEVE Referred By : , Acquired by : , [facility] ED NOTEon 06-01-2023 ED NOTE HNO ID: [id number] Author: Amy Ralph RN Service: ? Author Type: Registered Nurse Type: ED Notes Filed: 06/01/2023 5:29 PM Note Text: Bed: ED-10 Expected date: Expected time: Means of arrival: Comments: Triage when clean [facility] ED PROV NOTEon 06-01-2023 ED PROV NOTE HNO ID: [id number] Author: Salud Flores DO Service: Emergency Medicine Author Type: Physician [...] 73.5 kg (162 lb) 1.626 m (5' 4) Physical Exam Vitals and nursing note reviewed. [...] No palpable (more content not included)... Normal [facility] FLUABV+SARS-CoV-2+RSV Pnl Re sp ANDRY+probeon 06-01-2023 FLUABV+SARS-CoV-2+RSV Pnl Resp ANDRY+probe COVID 19 RESULT: Not detected The method used is RT-PCR or an equivalent NAAT method. Reference Range(the expected result in uninfected individuals): Not detected INFLUENZA A PCR: Not detected INFLUENZA B PCR: Not detected RSV PCR: Not detected Normal [facility] Comment on above: Performed By: #### 9 5941-1 ####[facility] [id number] [place] [address] [place] HIGH SENSITIVITY TROPONIN T (INITIAL)on 06-01-2023 Troponin T.cardiac High sensitivity method [Mass/Vol] <6 Normal <12 [facility] Comment on above: Order Comment: Speci men Type: BLOOD SPECIMEN Ordering Facility: [facility] Address: [facility] [place] [address] Result Comment: When assessing risk for acute [...] MACE. Performed By: #### 5 8410-2 #### [facility] CLIA [id number] [address] [place] [address] [place] HIGH SENSITIVITY TROPONIN T (SECOND)on 06-01-2023 Troponin T.cardiac High sensitivity method [Mass/Vol] <6 Normal <12 [facility] Comment on above: Order Comment: Renetta la Type: BLOOD SPECIMENOrdering Facility: [facility] Address: [address] [place] [address] Result Comment: When assessing risk for acute [...] day MACE. Performed By: #### 3 3762-6, [id number] ####[facility] [id number] [place] [address] [place] Magnesium SerPl-ncon 06-01 Magnesium [Mass/Vol] 2.1 mg/dL Normal 1.7-2.3 [facility] Comment on above: Order Comment: Renetta la Type: BLOOD SPECIMEN Ordering Facility: [facility] Address: [address] [place] [address] Performed By: #### 5 8410-2 #### [facility] CLIA [id number] [address] [place] [address] [place] NT-proBNP SerPl-ncon 06-01 Natriuretic peptide.B prohormone N-Terminal [Mass/Vol] 131 pg/mL High <125 [facility] Comment on above: Order Comment: Renetta la Type: BLOOD SPECIMENOrdering Facility: [facility] Address: [address] [place] [address] Performed By: #### 3 3762-6, [id number] ####[facility] [id number] [address] [place] PT panel Coag (PPP)on 2022 INR Coag (PPP) [Relative time] 1.0 {INR} Normal 0.9-1.3 [facility] Comment on above: Order Comment: Renetta la Type: BLOOD SPECIMENOrdering Facility: [facility] Address: [place] [facility] [place] [address] Result Comment: Tiesha min K Antagonist (VKA) Therapeutic Range: INR 2 to 3 (Target INR of 2.5) Note: For patients treated with VKA drugs, such as warfarin, the [place] [employer] 2012 Guideline recommends [...] 70: 252-289 Performed By: #### 3 4528-0, 05140-4 ####[facility] [id number] [place] [address] [place] PT Coag (PPP) [Time] 10.3 s Normal 9.7-13.0 [facility] Comment on above: Order Comment: Renetta la Type: BLOOD SPECIMENOrdering Facility: [facility] Address: [place] [address] Performed By: #### 3 4528-0, 17797-3 ####[facility] [id number] [address] [place] Surgical pathology studyOrde red By: Mia Terry on 06-01-2023 Laboratory comment Ed (Report) y7emiQRnTRJpa6bnDSBprQ FuZzEwMzNcZnRuYmpcdWMx SBjphrVaFKdtw5CtD8TbEw AwMFxhbnNpXGRlZmxhbmcx GUVtLZI8kkItXZEcSCdtNH XqADaeBp2nzTUkjZkpMlFy HWAmw1ynnrYSBSgiWMSSZB v2b6ugAKQkHxA9uOYuAHkv S3xgwmGqkQTaA5Cef2EjJN o9zX22FBVsoJ8mjTNnKRmm ccHkKvY5BAtfTJGqOpQ0AL RqhVEgDEXkZ8esRSEsTZwu YKJmZZyjkQBwPDA8eVucu9 U7sRWslXSskFjjWaPmHkWu GePMr5HiRWr3kHdjB2HsDK XyMcQ7aWVzUZEsKSrkGHBf ASJylpJ8eA86STfscmA8iC Fhh4Gtt74ur232hC1zvJBf GBY7LSVkIOMmnAIxWBZwRA M0RRPdbPDbP8xwCfResRWh P2YzZoOmjQOzK5HcZgKzsT JpX8RnUvDoxIQcNBHakLO2 BAzin437WXN7YgFxWH1bM0 Tss6I3jU1qyDWiRQVqaJNj VkXkCKPnvz2ilQObHLnjd2 WcINM4wmT3uLXrzMDpCIQm YR66Kattt9WpMdzuLXJ3TR FozlKew8Rab6ryOtOegaEs E3bpI0TfVXVuIHWhAWViYx MesgNkv2Aoh3PsjLUdwXg4 z2tvYKStOKXqjQujp2aiUM N2WTOjU4S7pKRxj5woHFaw KFQbrHW2fjU4UQgcHBTzsw Q3niA2SYutTOZnrIP4jaR9 FXqaZXPkBeJ6rhJ1EExoSW YaANX2WoNxKXYqk9Polpfs IsCwo7SolLElCFfsS29qj5 00TOTzkfEwU5ztxMXxeanr oYUqqzelMFkbkvL3UFDyUI BsYWluXGYxXGZzMjBcbGFu ZzEwMzNcaGljaFxmMVxkYm OmHQOcUCzeR0kmYdDoVzLz NTTXlMU8yYGej3iwnqP7kO XiIW5kJPUnzRFxutQrp4L8 QHQ5bMHzvL5czJHeSVFjnT MbvbXbrt36sDPjnRC6TWBq OKBceXTybD7rYKSkVSNZuL 5hbCBJbnRlcnByZXRhdGlv iv7JzVFnxf0pgIQqD7NaaH lmaWVzIHRoYXQgdGhleSBo SUXwRQWdlhull1KlSTMxzI TqD6KbNM6yFXXnzy55 [facility] Work Phone: Pathology report Cancer Narrative Surgical Pathology Case: [id number] Authorizing Provider: Main Reed MD Collected: 05/28/2023 1335 Ordering Location: [facility] Received: 05/28/2023 1415 OR Pathologist: Mia Terry MD Specimen: OVARY OOPHORECTOMY RIGHT, RIGHT OVARY [facility] Work Phone: Pathology report final diagnosis Narrative q5pylFThUEZefHYzMYPmDC jbocLgAAIwiHXpQ6Itecfu GTrbMO9pJS0omFgbyGZhjK OzTRAcUgPgz7suu749xVJa v6vnZCVCQVhgPDHCOAj5wX zaN23qx2R3TcwzQ61stMBz QHY5IGDlEPHliGEpJVQtUX H4VFYqaJHgL0ykVPGmOG5j koebKEtbQWfxGCGkoJW7AU WzzLKqE5JzPJVuXNxuFLDr tur5HzMvTa5woVDfxZwfTD xwYXJkXHBsYWluXGJcZnMy MCBBLiBSSUdIVCBPVkFSWS xbL94FDT8VSENHS46YMCmf YjAgIFxwYXJccGFyZCAtLS WShtVaoRU5wRJlDNSpdCsw D6FlAPLfW9qjbRtkDKO8 [facility] Work Phone: Pathology report gross observation Narrative t2gtqUYqYVPmeWSIVZC4OW XgBG2igAblpKa0xIxwLBIg lpR0fIIwBYhsk3kwDOU6k0 itoeLNDjmlRAWgOR6nFXre BNWhUL4lCmEeMFDkGyRhOQ BhcGVydzEyMjQwXHBhcGVy vUB5YSZoNB5rzcmtUQflNV vyFUVdxmU3LIWtrIQoF8Ck ZMSzMD7gzzctHLY8CRUSUa pqPt8kqASeiMjuJrHsBdMw VOEbUVQmZAYmdDmtB3Rlt3 FgKSc5cN6DQkcuXFJ3XIGD SdkkEubbuTspu5KrqRSeQQ NnIFxcaWQgNTEwMDAgXFxk TtHJUrKuVqN3Bda4KTi2Kb A2HQi1ZFXEJAEyYuA6Lhj3 DBS0GJp2FUWhCY3uSBiwuU LcVQhhWxppAOwlU197ROzp HHOyJ7XhI2SeNBmmGmKzZJ haPAZdPGPxHIqhYAIuR9SO ANLkFVL0VCN6ArObAJu7EG nwY8PEWMHkOAH7Ugg7MUL7 WgG7DHa5YOYCWl6uBoV9Pt VzCoxrDOM8PfT4FYaytufc FRv6ZFYmBTodjkVpBKefFw hgHPpiQ45xhUObERZATbhw bGFpblxlcGljTmVzdERvYz ZyTDmpqDKovOTtCC1XLRl7 cmNoXGZzMjIgQTogUmVjZW y6IMKivP1kKt3brKUlvX0t MBovCjGbZUAfh7o8pTN7bU BcpVM9mDBkvQblHV8wgNAj UC5lOUtqc1KatWRiJC95fY TjbjQaxkGrIgInK3n1HV88 RDQ3DalbfOYjVG8hsK23IJ M3QBJip9BfwUv9UXC0yiL8 jUOxMNZsgkOpqXQ6dTOeSU EyrRDgYW8dqA0gilFvoHWg lL6uqYbxn7gfuNYxeMyxAM XkJHr8YzwvVMbsb9R0SMVy g7HeIsVzBFjxeROzj7FizY 0zTLAeBWD8AZYsRyF8TCMf MCBjbSBhbmQgMTAuMSBnLi PvIKueTFW2yTUnehPwBEB8 avEoF6UqaHLyaH1sTJYmGr bhD1iyDQHOLBA6iC9saN8t IHJldmVhbHMgYSBkaXNydX T3XYItOQYic511rBHkuO3y CHPzoLM1TWJspv7aSHLvOp Kvx781RY08ddfwtIIsr2Mf dJ4vSWLpSFV6FXKtFFF3YP LtFOEkuU1dDXLaUJOlIE5w wI3anqfzA4H0PRC4icGkY1 VymQYrzDvvg9l5CJPvFJDm Dte7jRCcrW74AXVhq3PryM n8BWUuGN2rrD11excrNJ4v IGZpYnJvdGljLiAgQSBkZW Lxzst6wXHnJS9vq5DrxIAi se16MTbzJF52xZAkSNCvGY XRJMLpSSErjdKlkJo1DOGc UBR6cE1gzzVzdgQzf3XcbO y0gDNjBDkeSLIxC9Fmk9X7 aZBxIWKeBNjrU3l6LVHcHZ zmtvVogQBkSKC8w5IzCKDP pX25e5wjLGQewxTgotUosA IrVV3ySQPsycMZNqILX3my VAFgPYobt2SdGLellKluFJ YhCgNhFAocCCFkH07wl2GK l6Gun1axsRoyh2EmuNHmVW 40WUWemOGpHWE0UG8sxAlp YXIgDQpccGFyZCANClxwbG FpbiANCn0= [facility] Work Phone: Pathology report relevant history Narrative g5pfaUTkZGByi5erPCYdaM OnDuBgQxFrTfVbOoy3MDPu zlG1Zmf2MHVjARxhsR2vWW TfHKnlA7kytzBktNDpB6Uk h1CwPPp7qH2skCoowA3vYa ApRsSdQJTIwpWuv3TkXWre S05yx3qsDoakXYFuFQAxQV hhbCBtYXNzIFtOOTQuODld XHBhciB9 [facility] Work Phone: [facility] Work Phone: XR CHEST 1V FRONTAL [...] Jun 01 2023 4:47PM EST [id number] Normal [facility] aPTT PPPon 06-01-2023 aPTT Coag (PPP) [Time] 28.6 s Normal 23.0-32.4 [facility] Comment on above: Order Comment: Speci men Type: BLOOD SPECIMENOrdering Facility: [facility] Address: [address] [place] [address] Performed By: #### 3 4528-0, 24120-8 ####[facility] LABORATORYCLIA [id number] [address] ECG 12 leadOrdered By: Mahesh Harrell on 05-29-2023 Atrial Rate 63 BPM [facility] Work Phone: P Lima 50 degrees [facility] Work Phone: OR Interval 173 ms [facility] Work Phone: Q Onset 252 [facility] Work Phone: QRS Count 12 beats [facility] Work Phone: QRS Duration 89 ms [facility] Work Phone: QT Interval 399 ms [facility] Work Phone: QTC Calculation(Bazett) 418 [facility] Work Phone: QTC Fredericia 412 [facility] Work Phone: R Lima 24 degrees [facility] Work Phone: T Lima 103 degrees [facility] Work Phone: T Offset 452 [facility] Work Phone: Ventricular Rate [address] [facility] Work Phone: [facility] Work Phone: ECG 12 leadon 05-29-2023 Sinus rhythm Ventricular premature complex Nonspecific T abnormalities, lateral leads ST elev, probable normal early repol pattern Baseline wander in lead(s) V3,V6 Confirmed by Mahesh Harrell ([id number]) on 05/29/2023 9:35:19 AM MUSE Mahesh Harrell DO - 05/29/2023 Sinus rhythm Ventricular premature complex Nonspecific T abnormalities, lateral leads ST elev, probable normal early repol pattern Baseline wander in lead(s) V3,V6 Confirmed by Mahesh Harrell ([id number]) on 05/29/2023 9:35:19 AM [facility] Work Phone: ECG 12-LEADon 05-28-2023 ECG 12-LEAD Ventricular Rate 66 Atrial Rate 63 P-R Interval 173 QRS Duration 89 Q-T Interval 399 QTC Calculation(Bazett) 418 P Lima 50 R Lima 24 T Lima 103 QRS Count 12 Q Onset 252 T Offset 452 QTC Fredericia 412 Diagnosis Sinus rhythm Ventricular premature complex Nonspecific T abnormalities, lateral leads ST elev, probable normal early repol pattern Baseline wander in lead(s) V3,V6 Confirmed by Mahesh Harrell ([id number]) on 05/29/2023 9:35:19 AM Normal [facility] Surgical pathology studyon 1 07-28-2022 Surgical pathology study Pathology report.total SEE COMMENT Surgical Pathology Case: [id number] Authorizing Provider: Main Reed MD Collected: 05/28/2023 1335 Ordering Location: [facility] Received: 05/28/2023 1415 OR Pathologist: Mia Terry [...] patient's name and hospital number and right ovary, is an intact, focally punctured ovary with a predominantly smooth white-leiva outer surface, measuring 3.5 x 3.3 x 2.0 cm and 10.1 g. The external surface is inked black. Sectioning reveals a disrupted, smooth lined cyst devoid of contents, measuring 1.5 x 1.0 x 0.5 cm. The remaining cut surface is pink-yellow, focally edematous, and fibrotic. A definitive mass is not identified. Doubling 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 sections are submitted in 4 cassettes to include disrupted cyst. Photographs are taken. ANS Normal [facility] Comment on above: Order Comment: Pre-o p diagnosis: Adnexal mass [N94.89] Tropinin I.cardiac panel Hig h sensitivity methodon 05-28-2023 Interpretation and review of laboratory results [facility] Less than 99th percentile of normal [...] performed using a different testing methodology at [facility] than at other [facility]. Direct result comparisons should only be made within the same method. [facility] Troponin I, High Sensitivity , Initialon 05-28-2023 Tropinin I.cardiac panel High sensitivity method 3 ng/L 0 - 13 ng/L [facility] Troponin I.cardiac panelon 1 07-28-2022 Tropinin I.cardiac panel High sensitivity method 3 ng/L Normal 0-13 [facility] Comment on above: Order Comment: ABNOR MAL PACU GERD SYMPTOMS Less than 99th [...] performed using a different testing methodology at [facility] than at other [facility]. Direct result comparisons should only be made within the same method. Performed By: #### 8 9577-1 #### RADHA Mcclain ([id number]) [facility] ([facility]) [address] [place] [address] POCT UA (nonautomated) vini zepeda 05-22-2023 Appearance (U) Clear Clear [facility] Work Phone: Glucose Test strip (U) [Mass/Vol] Negative NEGATIVE mg/dl [facility] Work Phone: Hemoglobin Ql (U) Negative NEGATIVE [facility] Work Phone: Leukocyte esterase Test strip Ql (U) Negative NEGATIVE [facility] Work Phone: Nitrite Ql (U) Negative NEGATIVE [facility] Work Phone: pH (U) 6.5 [pH] No Reference Range Established [facility] Work Phone: POC Bilirubin, Urine Negative NEGATIVE [facility] Work Phone: POC Color, Urine Yellow Straw, Yellow, Light-Yellow [facility] Work Phone: POC Ketones, Urine Negative NEGATIVE mg/dl [facility] Work Phone: POC Protein, Urine Negative NEGATIVE, 30 (1+) mg/dl [facility] Work Phone: POC Specific [place], Urine 1.025 1.005 - 1.035 [facility] Work Phone: POC Urobilinogen, Urine 0.2 0.2, 1.0 EU/DL [facility] Work Phone: [facility] Work Phone: CBC W Auto Differential pane l (Bld)on 05-14-2023 Basophils (Bld) [#/Vol] 0.04 10*3/uL [facility] Basophils/100 WBC (Bld) 0.5 % 0.0 - 2.0 % [facility] Eosinophils (Bld) [#/Vol] 0.22 10*3/uL [facility] Eosinophils/100 WBC (Bld) 2.8 % 0.0 - 6.0 % [facility] Erythrocyte distribution width (RBC) [Ratio] 12.8 % 11.5 - 14.5 % [facility] Hematocrit (Bld) [Volume fraction] 43.2 % 36.0 - 46.0 % [facility] Hemoglobin (Bld) [Mass/Vol] 14.1 g/dL 12.0 - 16.0 g/dL [facility] Immature granulocytes (Bld) [#/Vol] 0.02 10*3/uL [facility] Immature granulocytes/100 WBC (Bld) 0.3 % 0.0 - 0.9 % [facility] Comment on above: Immature Granulocyte Count (IG) includes promyelocytes, myelocytes and metamyelocytes but does not include bands. Percent differential counts (%) should be interpreted in the context of the absolute cell counts (cells/UL). Lymphocytes (Bld) [#/Vol] 2.58 10*3/uL [facility] Lymphocytes/100 WBC (Bld) 32.3 % 13.0 - 44.0 % [facility] MCH (RBC) [Entitic mass] 29.7 pg 26.0 - 34.0 pg [facility] MCHC (RBC) [Mass/Vol] 32.6 g/dL 32.0 - 36.0 g/dL [facility] MCV (RBC) [Entitic vol] 91 fL 80 - 100 fL [facility] Monocytes (Bld) [#/Vol] 0.48 10*3/uL [facility] Monocytes/100 WBC (Bld) 6.0 % 2.0 - 10.0 % [facility] Neutrophils (Bld) [#/Vol] 4.66 10*3/uL [facility] Comment on above: Percent differential counts (%) should be interpreted in the context of the absolute cell counts (cells/uL). Neutrophils/100 WBC (Bld) 58.1 % 40.0 - 80.0 % [facility] Nucleated RBC/100 WBC (Bld) [Ratio] 0.0 % [facility] Platelets (Bld) [#/Vol] 352 10*3/uL [facility] RBC (Bld) [#/Vol] 4.74 10*6/uL [facility] WBC (Bld) [#/Vol] 8.0 10*3/uL [facility] Basophils (Bld) [#/Vol] 0.04 x10*3/uL Normal 0.00-0.10 [facility] Comment on above: Performed By: #### 5 7021-8 #### RIRI Hawkins ([id number]) [facility] ([facility]) [address] [place] [address] Basophils/100 WBC (Bld) 0.5 % Normal 0.0-2.0 [facility] Comment on above: Performed By: #### 5 7021-8 #### RIRI Hawkins ([id number]) [facility] ([facility]) [address] [place] [address] Eosinophils (Bld) [#/Vol] 0.22 x10*3/uL Normal 0.00-0.70 [facility] Comment on above: Performed By: #### 5 7021-8 #### RIRI Hawkins ([id number]) [facility] ([facility]) [address] [place] [address] Eosinophils/100 WBC (Bld) 2.8 % Normal 0.0-6.0 [facility] Comment on above: Performed By: #### 5 7021-8 #### RIRI Hawkins ([id number]) [facility] ([facility]) [address] [place] [address] Erythrocyte distribution width (RBC) [Ratio] 12.8 % Normal 11.5-14.5 [facility] Comment on above: Performed By: #### 5 7021-8 #### RIRI Hawkins ([id number]) [facility] ([facility]) [address] [place] [address] Hematocrit (Bld) [Volume fraction] 43.2 % Normal 36.0-46.0 [facility] Comment on above: Performed By: #### 5 7021-8 #### RIRI Hawkins ([id number]) [facility] ([facility]) [address] [place] [address] Hemoglobin (Bld) [Mass/Vol] 14.1 g/dL Normal 12.0-16.0 [facility] Comment on above: Performed By: #### 5 7021-8 #### RIRI Hawkins ([id number]) [facility] ([facility]) [address] [place] [address] Immature granulocytes (Bld) [#/Vol] 0.02 x10*3/uL Normal 0.00-0.70 [facility] Comment on above: Performed By: #### 5 7021-8 #### RIRI Hawkins ([id number]) [facility] ([facility]) [address] [place] [address] Immature granulocytes/100 WBC (Bld) 0.3 % Normal 0.0-0.9 [facility] Comment on above: Result Comment: Evelina ture Granulocyte Count (IG) includes promyelocytes, myelocytes and metamyelocytes but does not include bands. Percent differential counts (%) should be interpreted in the context of the absolute cell counts (cells/UL). Performed By: #### 5 7021-8 #### RIRI Hawkins ([id number]) [facility] ([facility]) [address] [place] [address] Lymphocytes (Bld) [#/Vol] 2.58 x10*3/uL Normal 1.20-4.80 [facility] Comment on above: Performed By: #### 5 7021-8 #### RIRI Hawkins ([id number]) [facility] ([facility]) [address] [place] [address] Lymphocytes/100 WBC (Bld) 32.3 % Normal 13.0-44.0 [facility] Comment on above: Performed By: #### 5 7021-8 #### RIRI Hawkins ([id number]) [facility] ([facility]) [address] [place] [address] MCH (RBC) [Entitic mass] 29.7 pg Normal 26.0-34.0 [facility] Comment on above: Performed By: #### 5 7021-8 #### RIRI Hawkins ([id number]) [facility] ([facility]) [address] [place] [address] MCHC (RBC) [Mass/Vol] 32.6 g/dL Normal 32.0-36.[address] [facility] Comment on above: Performed By: #### 5 7021-8 #### RIRI Hawkins ([id number]) [facility] ([facility]) [address] [place] [address] MCV (RBC) [Entitic vol] 91 fL Normal 80-100 [facility] Comment on above: Performed By: #### 5 7021-8 #### RIRI Hawkins ([id number]) [facility] ([facility]) [address] [place] [address] Monocytes (Bld) [#/Vol] 0.48 x10*3/uL Normal 0.10-1.00 [facility] Comment on above: Performed By: #### 5 7021-8 #### RIRI Hawkins ([id number]) [facility] ([facility]) [address] [place] [address] Monocytes/100 WBC (Bld) 6.0 % Normal 2.0-10.0 [facility] Comment on above: Performed By: #### 5 7021-8 #### RIRI Hawkins ([id number]) [facility] ([facility]) [address] [place] [address] Neutrophils (Bld) [#/Vol] 4.66 x10*3/uL Normal 1.20-7.70 [facility] Comment on above: Result Comment: Perc ent differential counts (%) should be interpreted in the context of the absolute cell counts (cells/uL). Performed By: #### 5 7021-8 #### RIRI Hawkins ([id number]) [facility] ([facility]) [address] [place] [address] Neutrophils/100 WBC (Bld) 58.1 % Normal 40.0-80.0 [facility] Comment on above: Performed By: #### 5 7021-8 #### RIRI Hawkins ([id number]) [facility] ([facility]) [address] [place] [address] Nucleated RBC/100 WBC (Bld) [Ratio] 0.0 /100 WBCs Normal 0.0-0.0 [facility] Comment on above: Performed By: #### 5 7021-8 #### RIRI Hawkins ([id number]) [facility] ([facility]) [address] [place] [address] Platelets (Bld) [#/Vol] 352 x10*3/uL Normal 150-450 [facility] Comment on above: Performed By: #### 5 7021-8 #### RIRI Hawkins ([id number]) [facility] ([facility]) [address] [place] [address] RBC (Bld) [#/Vol] 4.74 x10*6/uL Normal 4.00-5.20 [facility] Comment on above: Performed By: #### 5 7021-8 #### RIRI Hawkins ([id number]) [facility] ([facility]) [address] [place] [address] WBC (Bld) [#/Vol] 8.0 x10*3/uL Normal 4.4-11.3 [facility] Comment on above: Performed By: #### 5 7021-8 #### RIRI DONISALISON Hawkins ([id number]) [facility] ([facility]) [address] [place] [address] CT ABDOMEN PELVIS WO IV CONT Sally 05-14-2023 CT ABDOMEN PELVIS WO IV CONTRAST STUDY: CT Abdomen and Pelvis without IV Contrast; 05/14/2023 at 5:41 PM. INDICATION: Pain. COMPARISON: US pelvis 03/09/2023; CT AP 03/08/2023. ACCESSION NUMBER(S): [id number] ORDERING CLINICIAN: MERCEDES AZUL TECHNIQUE: CT of [...] side.. Signed by Jose C Paz MD [facility] CT Abdomen WO contraston 2 nonobstructing calculi are seen in the lower pole collecting system on the right but no additional calculi are seen and there is no hydronephrosis on either side.. Signed by Jose C Paz MD TELERADIOLOGY STUDY: CT Abdomen and Pelvis without IV Contrast; 05/14/2023 at 5:41 PM. INDICATION: Pain. COMPARISON: US pelvis 03/09/2023; CT AP 03/08/2023. ACCESSION NUMBER(S): [id number] ORDERING CLINICIAN: MERCEDES AZUL TECHNIQUE: CT of [...] pelvis 03/09/2023; CT AP 03/08/2023. ACCESSION NUMBER(S): [id number] ORDERING CLINICIAN: MERCEDES AZUL TECHNIQUE: CT of [...] side.. Signed by Jose C Paz MD [facility] Work Phone: Radiology Study observation (narrative) [facility] Work Phone: CT Abdomen WO contrastOrdere d By: Jose C Paz on 05-14-2023 [facility] Work Phone: Comprehensive metabolic 2000 panelon 05-14-2023 Albumin BCP dye [Mass/Vol] 4.2 g/dL 3.4 - 5.0 g/dL [facility] ALP [Catalytic activity/Vol] 57 U/L 33 - 110 U/L [facility] ALT With P-5'-P [Catalytic activity/Vol] 14 U/L 7 - 45 U/L [facility] Comment on above: Patients treated wit h Sulfasalazine may generate falsely decreased results for ALT. Anion gap [Moles/Vol] 12 mmol/L 10 - 2 0 mmol/L [facility] AST With P-5'-P [Catalytic activity/Vol] 16 U/L 9 - 39 U/L [facility] Bilirubin [Mass/Vol] 0.3 mg/dL 0.0 - 1 .2 mg/dL [facility] Calcium [Mass/Vol] 9.4 mg/dL 8.6 - 10. 3 mg/dL [facility] Chloride [Moles/Vol] 104 mmol/L 98 - 10 7 mmol/L [facility] CO2 [Moles/Vol] 28 mmol/L 21 - 32 mmol/L [facility] Creatinine [Mass/Vol] 1.17 mg/dL High 0.50 - 1.05 mg/dL [facility] GFR/1.73 sq M.predicted MDRD (S/P/Bld) [Vol rate/Area] 58 mL/min/{1.73_m2} Low - PINF [facility] Comment on above: Calculations of nura mated GFR are performed using the 2020 CKD-EPI Study Refit equation without the race variable for the IDMS-Traceable creatinine methods. https://jasn.asnjournals.org/content//ASN.10345 22157 Glucose [Mass/Vol] 93 mg/dL 74 - 99 mg/dL [facility] Interpretation and review of laboratory results Abnormal [facility] Potassium [Moles/Vol] 3.9 mmol/L 3.5 - 5.3 mmol/L [facility] Protein [Mass/Vol] 7.2 g/dL 6.4 - 8.2 g/dL [facility] Sodium [Moles/Vol] 140 mmol/L 136 - 145 mmol/L [facility] Urea nitrogen [Mass/Vol] 21 mg/dL 6 - 23 mg/dL [facility] Albumin BCP dye [Mass/Vol] 4.2 g/dL Normal 3.4-5.0 [facility] Comment on above: Performed By: #### 2 4323-8 #### RIRI Hawkins ([id number]) [facility] ([facility]) [address] [place] [address] ALP [Catalytic activity/Vol] 57 U/L Normal 33-110 [facility] Comment on above: Performed By: #### 2 4323-8 #### RIRI Hawkins ([id number]) [facility] ([facility]) [address] [place] [address] ALT With P-5'-P [Catalytic activity/Vol] 14 U/L Normal 7-45 [facility] Comment on above: Result Comment: Anjelica ents treated with Sulfasalazine may generate falsely decreased results for ALT. Performed By: #### 2 4323-8 #### RIRI Hawkins ([id number]) [facility] ([facility]) [address] [place] [address] Anion gap [Moles/Vol] 12 mmol/L Normal 10-[address] [facility] Comment on above: Performed By: #### 2 4323-8 #### RIRI Hawkins ([id number]) [facility] ([facility]) [address] [place] [address] AST With P-5'-P [Catalytic activity/Vol] 16 U/L Normal 9-39 [facility] Comment on above: Performed By: #### 2 4323-8 #### RIRI Hawkins ([id number]) [facility] ([facility]) [address] [place] [address] Bilirubin [Mass/Vol] 0.3 mg/dL Normal 0.0-1.2 [facility] Comment on above: Performed By: #### 2 4323-8 #### RIRI Hawkins ([id number]) [facility] ([facility]) [address] [place] [address] Calcium [Mass/Vol] 9.4 mg/dL Normal 8.6-10.3 [facility] Comment on above: Performed By: #### 2 4323-8 #### RIRI Hawkins ([id number]) [facility] ([facility]) [address] [place] [address] Chloride [Moles/Vol] 104 mmol/L Normal 98-107 [facility] Comment on above: Performed By: #### 2 4323-8 #### RIRI Hawkins ([id number]) [facility] ([facility]) [address] [place] [address] CO2 [Moles/Vol] 28 mmol/L Normal 21-32 [facility] Comment on above: Performed By: #### 2 4323-8 #### RIRI Hawkins ([id number]) [facility] ([facility]) [address] [place] [address] Creatinine [Mass/Vol] 1.17 mg/dL High 0.50-1.[address] [facility] Comment on above: Performed By: #### 2 4323-8 #### RIRI Hawkins ([id number]) [facility] ([facility]) [address] [place] [address] GFR/1.73 sq M.predicted MDRD (S/P/Bld) [Vol rate/Area] 58 mL/min/1.73m*2 Low >60 [facility] Comment on above: Result Comment: Calc ulations of estimated GFR are performed using the 2020 CKD-EPI Study Refit equation without the race variable for the IDMS-Traceable creatinine methods. https://jasn.asnjournals.org/content//ASN 73300 Performed By: #### 2 4323-8 #### RIRI Hawkins ([id number]) [facility] ([facility]) [address] [place] [address] Glucose [Mass/Vol] 93 mg/dL Normal 74-99 [facility] Comment on above: Performed By: #### 2 4323-8 #### RIRI Hawkins ([id number]) [facility] ([facility]) [address] [place] [address] Potassium [Moles/Vol] 3.9 mmol/L Normal 3.5-5.[address] [facility] Comment on above: Performed By: #### 2 4323-8 #### RIRI Hawkins ([id number]) [facility] ([facility]) [address] [place] [address] Protein [Mass/Vol] 7.2 g/dL Normal 6.4-8.2 [facility] Comment on above: Performed By: #### 2 4323-8 #### RIRI Hawkins ([id number]) [facility] ([facility]) [address] [place] [address] Sodium [Moles/Vol] 140 mmol/L Normal 136-145 [facility] Comment on above: Performed By: #### 2 4323-8 #### RIRI Hawkins ([id number]) [facility] ([facility]) [address] [place] [address] Urea nitrogen [Mass/Vol] 21 mg/dL Normal 6-23 [facility] Comment on above: Performed By: #### 2 4323-8 #### RIRI Hawkins ([id number]) [facility] ([facility]) [address] [place] [address] FLUAV and FLUBV RNA ANDRY+prob e Nom (Unsp spec)on 05-14-2023 FLUAV RNA ANDRY+probe Ql (Resp) Not detected Not Detected [facility] FLUBV RNA ANDRY+probe Ql (Resp) Not detected Not Detected [facility] This assay is an in vitro diagnostic multiplex nucleic acid amplification test for the detection and discrimination of Influenza A & B from nasopharyngeal specimens, and has been validated for use at [facility]. Negative results do not preclude Influenza A/B infections, and should not be used as the sole basis for diagnosis, treatment, or other management decisions. If Influenza A/B and RSV PCR results are negative, testing for Parainfluenza virus, Adenovirus and Metapneumovirus is routinely performed for [facility] pediatric oncology and intensive care inpatients, and is available on other patients by placing an add-on request. [facility] FLUAV RNA ANDRY+probe Ql (Resp) Not detected Normal Not Detected [facility] Comment on above: Order Comment: This assay is an in vitro diagnostic multiplex nucleic acid amplification test for the detection and discrimination of Influenza A & B from nasopharyngeal specimens, and has been validated for use at [facility]. Negative results do not preclude Influenza A/B infections, and should not be used as the sole basis for diagnosis, treatment, or other management decisions. If Influenza A/B and RSV PCR results are negative, testing for Parainfluenza virus, Adenovirus and Metapneumovirus is routinely performed for [facility] pediatric oncology and intensive care inpatients, and is available on other patients by placing an add-on request. Performed By: #### 4 8509-4 #### RIRI Hawkins ([id number]) [facility] ([facility]) [address] [place] [address] FLUBV RNA ANDRY+probe Ql (Resp) Not detected Normal Not Detected [facility] Comment on above: Order Comment: This assay is an in vitro diagnostic multiplex nucleic acid amplification test for the detection and discrimination of Influenza A & B from nasopharyngeal specimens, and has been validated for use at [facility]. Negative results do not preclude Influenza A/B infections, and should not be used as the sole basis for diagnosis, treatment, or other management decisions. If Influenza A/B and RSV PCR results are negative, testing for Parainfluenza virus, Adenovirus and Metapneumovirus is routinely performed for [facility] pediatric oncology and intensive care inpatients, and is available on other patients by placing an add-on request. Performed By: #### 4 8509-4 #### RIRI Hawkins ([id number]) [facility] ([facility]) [address] [place] [address] Lactateon 05-14-2023 Lactate [Moles/Vol] 0.9 mmol/L 0.4 - 2. 0 mmol/L [facility] Lactate [Moles/Vol] 0.9 mmol/L Normal 0.4-2.0 [facility] Comment on above: Order Comment: Venip uncture immediately after or during the administration of Metamizole may lead to falsely low results. Testing should be performed immediately prior to Metamizole dosing. Performed By: #### 2 524-7 #### RIRI Hawkins ([id number]) [facility] ([facility]) [address] [place] [address] Lactate [Moles/Vol]on 2022 Interpretation and review of laboratory results Normal [facility] Venipuncture immediately after or during the administration of Metamizole may lead to falsely low results. Testing should be performed immediately prior to Metamizole dosing. [facility] Lipaseon 05-14-2023 Lipase [Catalytic activity/Vol] 42 U/L 9 - 82 U/L [facility] Lipase [Catalytic activity/V ol]on 05-14-2023 Interpretation and review of laboratory results Normal [facility] Venipuncture immediately after or during the administration of Metamizole may lead to falsely low results. Testing should be performed immediately prior to Metamizole dosing. [facility] No Panel Informationon 05-14 Interpretation and review of laboratory results Normal [facility] RSV PCRon 05-14-2023 RSV RNA ANDRY+probe Ql (Resp) Not detected Not Detected [facility] RSV RNA ANDRY+probe Ql (Resp)o n 05-14-2023 This assay is an FDA-cleared, in vitro diagnostic nucleic acid amplification test for the detection of RSV from nasopharyngeal specimens, and has been validated for use at [facility]. Negative results do not preclude RSV infections, and should not be used as the sole basis for diagnosis, treatment, or other management decisions. If Influenza A/B and RSV PCR results are negative, testing for Parainfluenza virus, Adenovirus and Metapneumovirus is routinely performed for pediatric oncology and intensive care inpatients at [facility], and is available on other patients by placing an add-on request. [facility] Respiratory syncytial virus RNAon 05-14-2023 RSV RNA ANDRY+probe Ql (Resp) Not detected Normal Not Detected [facility] Comment on above: Order Comment: This assay is an FDA-cleared, in vitro diagnostic nucleic acid amplification test for the detection of RSV from nasopharyngeal specimens, and has been validated for use at [facility]. Negative results do not preclude RSV infections, and should not be used as the sole basis for diagnosis, treatment, or other management decisions. If Influenza A/B and RSV PCR results are negative, testing for Parainfluenza virus, Adenovirus and Metapneumovirus is routinely performed for pediatric oncology and intensive care inpatients at [facility], and is available on other patients by placing an add-on request. Performed By: #### 9 2131-2 #### RIRI Hawkins ([id number]) [facility] ([facility]) [address] [place] [address] SARS coronavirus 2 RNAon SARS-CoV-2 (COVID-19) RNA ANDRY+probe Ql (Resp) Not detected Normal Not Detected [facility] Comment on above: Order Comment: This assay [...] and has been validated for use at [facility]. Negative results do not preclude COVID-19 infections and should not be used as the sole basis for diagnosis, treatment, or other management decisions. Performed By: #### 9 4500-6 #### RIRI Hawkins ([id number]) [facility] ([facility]) [address] [place] [address] SARS-CoV-2 (COVID-19) RNA NA A+probe Ql (Resp)on [...] and has been validated for use at [facility]. Negative results do not preclude COVID-19 infections and should not be used as the sole basis for diagnosis, treatment, or other management decisions. [facility] Sars-CoV-2 PCR, Symptomatico n 05-14-2023 SARS-CoV-2 (COVID-19) RNA ANDRY+probe Ql (Resp) Not detected Not Detected [facility] Triacylglycerol lipaseon Lipase [Catalytic activity/Vol] 42 U/L Normal 9-82 [facility] Comment on above: Order Comment: Venip uncture immediately after or during the administration of Metamizole may lead to falsely low results. Testing should be performed immediately prior to Metamizole dosing. Performed By: #### 3 040-3 #### RIRI Hawkins ([id number]) [facility] ([facility]) [address] [place] [address] Tropinin I.cardiac panel Hig h sensitivity methodon 05-14-2023 Interpretation and review of laboratory results Normal [facility] Less than 99th percentile of normal [...] performed using a different testing methodology at [facility] than at other [facility]. Direct result comparisons should only be made within the same method. [facility] Troponin I, High Sensitivity on 05-14-2023 Tropinin I.cardiac panel High sensitivity method 4 ng/L 0 - 13 ng/L [facility] Troponin I.cardiac panelon 1 07-14-2022 Tropinin I.cardiac panel High sensitivity method 4 ng/L Normal 0-13 [facility] Comment on above: Order Comment: Less than [...] performed using a different testing methodology at [facility] than at [facility]. Direct result comparisons should only be made within the same method. Performed By: #### 8 9577-1 #### RIRI Hawkins ([id number]) [facility] ([facility]) [address] [place] [address] Urinalysis complete panel (U )on 05-14-2023 Appearance (U) Hazy Abnormal Clear [facility] Bilirubin (U) [Mass/Vol] Negative NEGATIVE [facility] Color (U) Yellow Straw, Yellow [facility] Glucose Auto test strip (U) [Mass/Vol] Negative NEGATIVE mg/dL [facility] Interpretation and review of laboratory results Abnormal [facility] Ketones (U) [Mass/Vol] Negative NEGAT MARIBELL mg/dL [facility] Leukocyte esterase Auto test strip Ql (U) Negative NEGATIVE [facility] Nitrite Auto test strip Ql (U) Negative NEGATIVE [facility] pH (U) 7.0 [pH] 5.0, 5.5, 6.0, 6.5, 7.0, 7.5, 8.0 [facility] Protein (U) [Mass/Vol] Negative NEGAT MARIBELL mg/dL [facility] RBC (U) [#/Vol] Negative NEGATIVE [facility] Specific gravity (U) [Rel density] 1.017 1.005 - 1.035 [facility] Urobilinogen (U) [Mass/Vol] mg/dL NINF - 2.0 mg/dL [facility] Appearance (U) Hazy Normal Clear [facility] Comment on above: Performed By: #### 2 4356-8 ####RIRI Hawkins ([id number])[facility] ([facility])[address] [place] [address] Bilirubin (U) [Mass/Vol] Negative Normal NEGATIVE [facility] Comment on above: Performed By: #### 2 4356-8 ####RIRI Hawkins ([id number])[facility] ([facility])[address] [place] [address] Color (U) Yellow Normal Straw, Yellow [facility] Comment on above: Performed By: #### 2 4356-8 ####RIRI Hawkins ([id number])[facility] ([facility])[address] [place] [address] Glucose Auto test strip (U) [Mass/Vol] Negative Normal NEGATIVE [facility] Comment on above: Performed By: #### 2 4356-8 ####RIRI Hawkins ([id number])[facility] ([facility])[address] [place] [address] Ketones (U) [Mass/Vol] Negative Normal NEGATIVE [facility] Comment on above: Performed By: #### 2 4356-8 ####RIRI Hawkins ([id number])[facility] ([facility])[address] [place] [address] Leukocyte esterase Auto test strip Ql (U) Negative Normal NEGATIVE [facility] Comment on above: Performed By: #### 2 4356-8 ####RIRI Hawkins ([id number])[facility] ([facility])[address] [place] [address] Nitrite Auto test strip Ql (U) Negative Normal NEGATIVE [facility] Comment on above: Performed By: #### 2 4356-8 ####RIRI Hawkins ([id number])[facility] ([facility])[address] [place] [address] pH (U) 7.0 [pH] Normal 5.0, 5.5, 6.0, 6.5, 7.0, 7.5, 8.0 [facility] Comment on above: Performed By: #### 2 4356-8 ####RIRI Hawkins ([id number])[facility] ([facility])[address] [place] [address] Protein (U) [Mass/Vol] Negative Normal NEGATIVE [facility] Comment on above: Performed By: #### 2 4356-8 ####RIRI Hawkins ([id number])[facility] ([facility])[address] [place] [address] RBC (U) [#/Vol] Negative Normal NEGATIVE [facility] Comment on above: Performed By: #### 2 4356-8 ####RIRI Hawkins ([id number])[facility] ([facility])[address] [place] [address] Specific gravity (U) [Rel density] 1.017 Normal 1.005-1.035 [facility] Comment on above: Performed By: #### 2 4356-8 ####RIRI Hawkins ([id number])[facility] ([facility])[address] [place] [address] Urobilinogen (U) [Mass/Vol] mg/dL Normal <2.0 [facility] Comment on above: Performed By: #### 2 4356-8 ####RIRI Hawkins ([id number])[facility] ([facility])[address] [place] [address] XR CHEST 1 VIEWon 05-14-2023 XR CHEST 1 VIEW STUDY: Chest Radiograph; 05/14/2023 at 5:17 PM INDICATION: Chest pain. COMPARISON: 03/11/23 XR Chest ACCESSION NUMBER(S): [id number] ORDERING CLINICIAN: MERCEDES AZUL TECHNIQUE: Frontal chest was obtained at 17:17 hours. FINDINGS: CARDIOMEDIASTINAL SILHOUETTE: Cardiomediastinal silhouette is normal in size and configuration. LUNGS: Lungs are clear. ABDOMEN: No remarkable upper abdominal findings. BONES: No acute osseous changes. IMPRESSION: No regions of airspace consolidation. Signed by Riri Zavala MD [facility] XR Chest Single viewon 05-14 No regions of airspa ce consolidation. Signed by Riri Zavala MD TELERADIOLOGY STUDY: Chest Radiograph; 05/14/2023 at 5:17 PM INDICATION: Chest pain. COMPARISON: 03/11/23 XR Chest ACCESSION NUMBER(S): [id number] ORDERING CLINICIAN: MERCEDES AZUL TECHNIQUE: Frontal chest was obtained at 17:17 hours. FINDINGS: CARDIOMEDIASTINAL SILHOUETTE: Cardiomediastinal silhouette is normal in size and configuration. LUNGS: Lungs are clear. ABDOMEN: No remarkable upper abdominal findings. BONES: No acute osseous changes. TELERADIOLOGY Riri Zavala MD - 05/14/2023 STUDY: Chest Radiograph; 05/14/2023 at 5:17 PM INDICATION: Chest pain. COMPARISON: 03/11/23 XR Chest ACCESSION NUMBER(S): [id number] ORDERING CLINICIAN: MERCEDES AZUL TECHNIQUE: Frontal chest was obtained at 17:17 hours. FINDINGS: CARDIOMEDIASTINAL SILHOUETTE: Cardiomediastinal silhouette is normal in size and configuration. LUNGS: Lungs are clear. ABDOMEN: No remarkable upper abdominal findings. BONES: No acute osseous changes. IMPRESSION: No regions of airspace consolidation. Signed by Riri Zavala MD [facility] Work Phone: Radiology Study observation (narrative) [facility] Work Phone: XR Chest Single viewOrdered By: Riri Zavala on 05-14-2023 [facility] Work Phone: Surgical pathology studyon 1 Surgical pathology study Pathology report.total SEE COMMENT Surgical Pathology Case: [id number] Authorizing Provider: Janny Bai MD Collected: 04/24/2023 1028 Ordering Location: [facility] Received: 04/25/2023 1155 Center Pathologist: Radha Sheridan MD Specimens: A) - DUODENAL BULB BIOPSY, [...] number and duodenum-duodenal bulb, second part, cold forceps, are multiple fragments of shaw, soft tissue aggregating to 0.5 x 0.3 x 0.2 cm. The specimen is submitted in toto in one cassette. MKM B: Received in formalin, labeled with the patient's name and hospital number and stomach body, antrum, cold forceps, are multiple fragments of shaw, soft tissue aggregating to 0.4 x 0.3 x 0.2 cm. The specimen is submitted in toto in one cassette. MKM C: Received in formalin, labeled with the patient's name and hospital number and esophagus-GE junction, irregular Z-line, cold forceps, are multiple fragments of shaw, soft tissue aggregating to 0.4 x 0.3 x 0.2 cm. The specimen is submitted in toto in one cassette. MKM D: Received in formalin, labeled with the patient's name and hospital number and esophagus-middle third, cold forceps, are multiple fragments of shaw, soft tissue aggregating to 0.5 x 0.3 x 0.2 cm. The specimen is submitted in toto in one cassette. MKM E: Received in formalin, labeled with the patient's name and hospital number and random biopsy, cold forceps, are multiple fragments of shaw, soft tissue aggregating to 0.5 x 0.3 x 0.2 cm. The specimen is submitted in toto in one cassette. MKM F: Received in formalin, labeled with the patient's name and hospital number and colon-cecum, polyp, cold snare, are 2 fragments of shaw, soft tissue aggregating to 0.4 x 0.3 x 0.2 cm. The specimen is submitted in toto in one cassette. [facility] Path report.microscopic observation Microscopic slides examined. [facility] HIV 1/2 ANTIGEN/ANTIBODY SCR EEN WITH REFLEX TO CONFIRMATIONon 03-26-2023 HIV 1+2 Ab Qn (S) Non-Reactive See Below [facility] Work Phone: Comment on above: SOURCE: Reference Ra nge: NONREACTIVE HIV Ag/Ab screen is performed using the [employer] [facility] HIV Ag/Ab Combo assay which detects the presence of HIV p24 antigen as well as antibodies to HIV-1 (Group M and O) and HIV-2..No laboratory evidence of HIV infection. If acute HIV infection is suspected, consider testing for HIV RNA by PCR (viral load). Hemoglobin A1Con 03-26-2023 Glucose [Mass/Vol] 108 mg/dL [facility] Work Phone: HbA1c (Bld) [Mass fraction] 5.4 % [facility] Work Phone: Comment on above: Diagnosis of Diabete s-Adults Non-Diabetic: < or = 5.6% Increased risk for developing diabetes: 5.7-6.4% Diagnostic of diabetes: > or = 6.5%. Monitoring of Diabetes Age (y) Therapeutic Goal (%) Adults: >18 <7.0 Pediatrics: 13-18 <7.5 7-12 <8.0 0- 6 7.5-8.5 [employer]. Diabetes Care 33(S1), Jul 2009. Hepatitis C Antibody Teston 03-26-2023 Hepatitis C Antibody Test Non-Reactive See Below [facility] Work Phone: Comment on above: SOURCE: Reference Ra nge: NONREACTIVE Results from patients taking biotin supplements or receiving high-dose biotin therapy should be interpreted with caution due to possible interference with this test. Providers may contact their local laboratory for further information. Lipid Panelon 03-26-2023 Cholesterol [Mass/Vol] 178 mg/dL 0 - 199 [facility] Work Phone: Comment on above: SOURCE: . [...] dosing. Cholesterol in HDL [Mass/Vol] 56.2 mg/dL [facility] Work Phone: Comment on above: . AGE VERY LOW LOW N ORMAL HIGH 0-19 Y < 35 < 40 40-45 ---- 20-24 Y ---- < 40 >45 ---- >24 Y ---- < 40 40-60 >60. Cholesterol in LDL [Mass/Vol] 103 mg/dL above high threshold 0 - 99 [facility] Work Phone: Comment on above: . NEAR BORD AGE BECKY RABLE OPTIMAL HIGH HIGH VERY HIGH 0-19 Y 0 - 109 --- 110-129 >/= 130 ---- 20-24 Y 0 - 119 --- 120-159 >/= 160 ---- >24 Y 0 - 99 100-129 130-159 160-189 >/=190. Cholesterol.total/Chol esterol in HDL [Mass ratio] 3.2 {ratio} [facility] Work Phone: Comment on above: REF VALUESDESIRABLE < 3.4HIGH RISK > 5.0 Triglyceride [Mass/Vol] 93 mg/dL 0 - 149 [facility] Work Phone: Comment on above: . AGE [...] Lipid Panel 19 mg/dL 0 - 40 [facility] Work Phone: Vitamin D 25-Hydroxyon 03-26 25-hydroxyvitamin D3 [Mass/Vol] 57 ng/mL [facility] Work Phone: Comment on above: SOURCE: .DEFICIENCY: < 20 NG/MLINSUFFICIENCY: 20-29 NG/MLSUFFICIENCY: 30-100 NG/MLTHIS ASSAY ACCURATELY QUANTIFIES THE SUM OFVITAMIN D3, 25-HYDROXY AND VIT D2,25-HYDROXY. BASIC METABOLIC PANELon 03-02 Anion gap [Moles/Vol] 10 mmol/L Normal 10 - 20 [facility] Comment on above: Performed By: #### B MP #### [facility] [address] [place] [address] Calcium [Mass/Vol] 9.0 mg/dL Normal 8.6 - 10.3 [facility] Comment on above: Performed By: #### B MP #### [facility] [address] [place] [address] Chloride [Moles/Vol] 101 mmol/L Normal 98 - 107 [facility] Comment on above: Performed By: #### B MP #### [facility] [address] [place] [address] Creatinine [Mass/Vol] 1.06 mg/dL High 0.50 - 1.05 [facility] Comment on above: Performed By: #### B MP #### [facility] [address] [place] [address] GFR/1.73 sq M.predicted among non-blacks MDRD (S/P/Bld) [Vol rate/Area] 65 mL/min/{1.73_m2} Normal >90 [facility] Comment on above: Result Comment: CALC ULATIONS OF ESTIMATED GFR ARE PERFORMED USING THE 2020 CKD-EPI STUDY REFIT EQUATION WITHOUT THE RACE VARIABLE FOR THE IDMS-TRACEABLE CREATININE METHODS. https://jasn.asnjournals.org/content//ASN 35466 Performed By: #### B MP #### [facility] [address] [place] [address] Glucose [Mass/Vol] 90 mg/dL Normal 74 - 99 [facility] Comment on above: Performed By: #### B MP #### [facility] [address] [place] [address] HCO3 (Bld) [Moles/Vol] 31 mmol/L Normal 21 - 32 [facility] Comment on above: Performed By: #### B MP #### [facility] [address] [place] [address] Potassium [Moles/Vol] 3.8 mmol/L Normal 3.5 - 5.3 [facility] Comment on above: Performed By: #### B MP #### [facility] [address] [place] [address] Sodium [Moles/Vol] 138 mmol/L Normal 136 - 145 [facility] Comment on above: Performed By: #### B MP #### [facility] [address] [place] [address] Urea nitrogen [Mass/Vol] 11 mg/dL Normal 6 - 23 [facility] Comment on above: Performed By: #### B MP #### [facility] [address] [place] [address] ANION GAP Canceled Normal [facility] Comment on above: Order Comment: TEST BASIC METABOLIC PANEL WAS CANCELLED, 03/14/2023 10:39 Performed By: #### T [facility] #### [facility] [address] [place] [address] BICARBONATE Canceled Normal [facility] Comment on above: Order Comment: TEST BASIC METABOLIC PANEL WAS CANCELLED, 03/14/2023 10:39 Performed By: #### T RP #### [facility] [address] [place] [address] CALCIUM Canceled Normal [facility] Comment on above: Order Comment: TEST BASIC METABOLIC PANEL WAS CANCELLED, 03/14/2023 10:39 Performed By: #### T RP #### [facility] [address] [place] [address] CHLORIDE Canceled Normal [facility] Comment on above: Order Comment: TEST BASIC METABOLIC PANEL WAS CANCELLED, 03/14/2023 10:39 Performed By: #### T RPHS #### [facility] [address] [place] [address] CREATININE Canceled Normal [facility] Comment on above: Order Comment: TEST BASIC METABOLIC PANEL WAS CANCELLED, 03/14/2023 10:39 Performed By: #### T RPHS #### [facility] [place] [address] [place] [address] eGFR FEMALE Canceled Normal [facility] Comment on above: Order Comment: TEST BASIC METABOLIC PANEL WAS CANCELLED, 03/14/2023 10:39 Result Comment: CALC ULATIONS OF ESTIMATED GFR ARE PERFORMED USING THE 2020 CKD-EPI STUDY REFIT EQUATION WITHOUT THE RACE VARIABLE FOR THE IDMS-TRACEABLE CREATININE METHODS. https://jasn.asnjournals.org/content/early/ASN.64398 94029 Performed By: #### T RPHS #### [facility] [place] [address] [place] [address] eGFR MALE Canceled Normal [facility] Comment on above: Order Comment: TEST BASIC METABOLIC PANEL WAS CANCELLED, 03/14/2023 10:39 Result Comment: CALC ULATIONS OF ESTIMATED GFR ARE PERFORMED USING THE 2020 CKD-EPI STUDY REFIT EQUATION WITHOUT THE RACE VARIABLE FOR THE IDMS-TRACEABLE CREATININE METHODS. https://jasn.asnjournals.org/content/early/ASN.72754 13265 Performed By: #### T RPHS #### [facility] [place] [address] [place] [address] GLUCOSE Canceled Normal [facility] Comment on above: Order Comment: TEST BASIC METABOLIC PANEL WAS CANCELLED, 03/14/2023 10:39 Performed By: #### T RPHS #### [facility] [place] [address] [place] [address] POTASSIUM Canceled Normal [facility] Comment on above: Order Comment: TEST BASIC METABOLIC PANEL WAS CANCELLED, 03/14/2023 10:39 Performed By: #### T [facility] #### [facility] [place] [address] [place] [address] SODIUM Canceled Normal [facility] Comment on above: Order Comment: TEST BASIC METABOLIC PANEL WAS CANCELLED, 03/14/2023 10:39 Performed By: #### T [facility] #### [facility] [place] [address] [place] [address] UREA NITROGEN Canceled Normal [facility] Comment on above: Order Comment: TEST BASIC METABOLIC PANEL WAS CANCELLED, 03/14/2023 10:39 Performed By: #### T [facility] #### [facility] [place] [address] [place] [address] Clinical Event Note-Patient called backon 03-14-2023 Clinical [...] Last Updated: 14-Mar-2023 17:39 by Konrad Delgado (DO) Normal [facility] - Chemistry and C hemistry - challengeon 03-14-2023 Anion gap [Moles/Vol] 10 mmol/L 10 - 20 [facility] Work Phone: Calcium [Mass/Vol] 9.0 mg/dL 8.6 - 10.3 [facility] Work Phone: Chloride [Moles/Vol] 101 mmol/L 98 - 107 [facility] Work Phone: CO2 [Moles/Vol] 31 mmol/L 21 - 32 [facility] Work Phone: Creatinine [Mass/Vol] 1.06 mg/dL above high threshold See Below [facility] Work Phone: Comment on above: Reference Range: 0.5 0 - 1.05 Glucose [Mass/Vol] 90 mg/dL 74 - 99 [facility] Work Phone: Potassium [Moles/Vol] 3.8 mmol/L 3.5 - 5.3 [facility] Work Phone: Sodium [Moles/Vol] 138 mmol/L 136 - 145 [facility] Work Phone: Urea nitrogen [Mass/Vol] 11 mg/dL 6 - 23 [facility] Work Phone: No Panel Informationon 03-14 65 {mL/min/1.73m2} >90 [facility] Work Phone: Comment on above: CALCULATIONS OF NURA MATED GFR ARE PERFORMED USING THE 2020 CKD-EPI STUDY REFIT EQUATION WITHOUT THE RACE VARIABLE FOR THE IDMS-TRACEABLE CREATININE METHODS.https://jasn.asnjournals.org/content//A SN.2291074655 CBCon 03-13-2023 Erythrocyte distribution width (RBC) [Ratio] 12.5 % Normal 11.5 - 14.5 [facility] Comment on above: Performed By: #### C BC #### [facility] [place] [address] [place] [address] Hematocrit (Bld) [Volume fraction] 39.3 % Normal 36.0 - 46.0 [facility] Comment on above: Performed By: #### C BC #### [facility] [place] [address] [place] [address] Hemoglobin (Bld) [Mass/Vol] 12.9 g/dL Normal 12.0 - 16.0 [facility] Comment on above: Performed By: #### C BC #### [facility] [place] [address] [place] [address] MCHC (RBC) [Mass/Vol] 32.8 g/dL Normal 32.0 - 36.0 [facility] Comment on above: Performed By: #### C BC #### [facility] [place] [address] [place] [address] MCV (RBC) [Entitic vol] 90 fL Normal 80 - 100 [facility] Comment on above: Performed By: #### C BC #### [facility] [place] [address] [place] [address] Platelets (Bld) [#/Vol] 304 10*3/uL Normal 150 - 450 [facility] Comment on above: Performed By: #### C BC #### [facility] [place] [address] [place] [address] RBC 4.35 x10E12/L Normal 4.00 - 5.20 [facility] Comment on above: Performed By: #### C BC #### [facility] [place] [address] [place] [address] WBC (Bld) [#/Vol] 7.8 10*3/uL Normal 4.4 - 11.3 [facility] Comment on above: Performed By: #### C BC #### [facility] [place] [address] [place] [address] Daily Progress Note-Medicine on 03-13-2023 Daily Progress Note-Medicine Service: Medicine Subjective Data: DAMARI RIOS is a 47 year old Female who is Hospital Day # 6. Overnight Events: Patient had an uneventful night. Objective Data: Objective Information: T PRBPMAPSpO2 [id number]/9096% Date/Time03/13 5: 5: 5: 5: 5:20 Range(35.6C [...] Updated: 13-Mar-2023 12:47 by Konrad Delgado () Normal [facility] Discharge [id number] Discharge Profile2 Discharge Orders: Anticipated Discharge Date: Anticipated Discharge [id number] Code Status: Code Status at Discharge: Full [...] advised to follow-up with her PCP and laborer powerhouse. Provider FINAL REVIEW of Orders: Final Review: [...] REVIEW of Orders, Appointments, Gold Form - Property Staff Accountant Summary Jayce Cuellar (BRYSON) (Signed 14-Mar-2023 13:23) Authored: Discharge Orders, Other Clinician Instructions Last Updated: 14-Mar-2023 13:23 by Jayce Cuellar (BRYSON) Normal [facility] - Hematology and Cell countson 03-13-2023 Erythrocyte distribution width (RBC) [Ratio] 12.5 % See Below [facility] Work Phone: Comment on above: Reference Range: 11. 5 - 14.5 Hematocrit (Bld) [Volume fraction] 39.3 % See Below [facility] Work Phone: Comment on above: Reference Range: 36. 0 - 46.0 Hemoglobin (Bld) [Mass/Vol] 12.9 g/dL See Below [facility] Work Phone: Comment on above: Reference Range: 12. 0 - 16.0 MCHC (RBC) [Mass/Vol] 32.8 g/dL See Below [facility] Work Phone: Comment on above: Reference Range: 32. 0 - 36.0 MCV (RBC) [Entitic vol] 90 fL 80 - 100 [facility] Work Phone: Platelets (Bld) [#/Vol] 304 10*3/uL 150 - 450 [facility] Work Phone: RBC (Bld) [#/Vol] 4.35 {x10E12/L} See Below [facility] Work Phone: Comment on above: Reference Range: 4.0 0 - 5.20 WBC (Bld) [#/Vol] 7.8 10*3/uL 4.4 - 11.3 [facility] Work Phone: Order Reconciliationon 03-13 Order Reconciliation Page 1 Discharge Reconciliation Document Reconciliation Type: Discharge requested on behalf of Konrad Delgado (Physician) done by Konrad Delgado () Discharge - Partial Reconciliation: 13-Mar-2023 10:16 by: Konrad Delgado () Discharge - Reconciliation: 14-Mar-2023 11:58 by: Konrad Delgado () Discharge - Reset to Incomplete: 14-Mar-2023 17:36 by: Konrad Delgado () Discharge - Reconciliation: 14-Mar-2023 17:37 by: Konrad Delgado () Home Medications EnteredHOME MEDICATIONS AT DISCHARGE DateReconciliation [...] 100 mg Oral 2 Times a Day 08-Mar-2023 20:17 Docusate is not required Enoxaparin SubCutaneous [...] online in your Personal Health Record (PHR). 1.Consolidated-Clinica l Document Architecture (C-CDA) Patient Discharge Summary This document is a summary of your hospital stay to be kept for your reference.2.C-CDA Visit Summary This document is a summary of your hospital stay to be shared with your follow-up providers (doctor, zone supervisor firearms, physical therapist, etc.). Guidelines for a Healthy Lifestyle oxyCODONE 5 mg oral capsule 1 c (more content not included)... Normal [facility] RENAL FUNCTION PANELon 03-13 Albumin [Mass/Vol] 3.4 g/dL Normal 3.4 - 5.0 [facility] Comment on above: Performed By: #### R ENAL #### [facility] [place] [address] [place] [address] Anion gap [Moles/Vol] 10 mmol/L Normal 10 - 20 [facility] Comment on above: Performed By: #### R ENAL #### [facility] [place] [address] [place] [address] Calcium [Mass/Vol] 8.8 mg/dL Normal 8.6 - 10.3 [facility] Comment on above: Performed By: #### R ENAL #### [facility] [place] [address] [place] [address] Chloride [Moles/Vol] 100 mmol/L Normal 98 - 107 [facility] Comment on above: Performed By: #### R ENAL #### [facility] [place] [address] [place] [address] Creatinine [Mass/Vol] 1.14 mg/dL High 0.50 - 1.05 [facility] Comment on above: Performed By: #### R ENAL #### [facility] [place] [address] [place] [address] GFR/1.73 sq M.predicted among non-blacks MDRD (S/P/Bld) [Vol rate/Area] 60 mL/min/{1.73_m2} Normal >90 [facility] Comment on above: Result Comment: CALC ULATIONS OF ESTIMATED GFR ARE PERFORMED USING THE 2020 CKD-EPI STUDY REFIT EQUATION WITHOUT THE RACE VARIABLE FOR THE IDMS-TRACEABLE CREATININE METHODS. https://jasn.asnjournals.org/content//ASN.91630 15081 Performed By: #### R ENAL #### [facility] [place] [address] [place] [address] Glucose [Mass/Vol] 110 mg/dL High 74 - 99 [facility] Comment on above: Performed By: #### R ENAL #### [facility] [place] [address] [place] [address] HCO3 (Bld) [Moles/Vol] 32 mmol/L Normal 21 - 32 [facility] Comment on above: Performed By: #### R ENAL #### [facility] [place] [address] [place] [address] Phosphate [Mass/Vol] 2.9 mg/dL Normal 2.5 - 4.9 [facility] Comment on above: Result Comment: The performance characteristics of phosphorus testing in heparinized plasma have been validated by the individual laboratory site where testing is performed. Testing on heparinized plasma is not approved by the FDA; however, such approval is not necessary. Performed By: #### R ENAL #### [facility] [place] [address] [facility] [place] [address] Potassium [Moles/Vol] 3.9 mmol/L Normal 3.5 - 5.3 [facility] Comment on above: Performed By: #### R ENAL #### [facility] [place] [address] [place] [address] Sodium [Moles/Vol] 138 mmol/L Normal 136 - 145 [facility] Comment on above: Performed By: #### R ENAL #### [facility] [place] [address] [facility] [place] [address] Urea nitrogen [Mass/Vol] 9 mg/dL Normal 6 - 23 [facility] Comment on above: Performed By: #### R ENAL #### [facility] [place] [address] [place] [address] Renal Function Panelon 03-13 Albumin BCP dye [Mass/Vol] 3.4 g/dL 3.4 - 5.0 [facility] Work Phone: Anion gap [Moles/Vol] 10 mmol/L 10 - 20 [facility] Work Phone: Calcium [Mass/Vol] 8.8 mg/dL 8.6 - 10.3 [facility] Work Phone: Chloride [Moles/Vol] 100 mmol/L 98 - 107 [facility] Work Phone: CO2 [Moles/Vol] 32 mmol/L 21 - 32 [facility] Work Phone: Creatinine [Mass/Vol] 1.14 mg/dL above high threshold See Below [facility] Work Phone: Comment on above: Reference Range: 0.5 0 - 1.05 Glucose [Mass/Vol] 110 mg/dL above high threshold 74 - 99 [facility] Work Phone: Phosphate [Mass/Vol] 2.9 mg/dL 2.5 - 4.9 [facility] Work Phone: Comment on above: The performance casey acteristics of phosphorus testing in heparinized plasma have been validated by the individual laboratory site where testing is performed. Testing on heparinized plasma is not approved by the FDA; however, such approval is not necessary. Potassium [Moles/Vol] 3.9 mmol/L 3.5 - 5.3 [facility] Work Phone: Sodium [Moles/Vol] 138 mmol/L 136 - 145 [facility] Work Phone: Urea nitrogen [Mass/Vol] 9 mg/dL 6 - 23 [facility] Work Phone: Renal Function Panel 60 {mL/min/1.73m2} >90 [facility] Work Phone: Comment on above: CALCULATIONS OF NURA MATED GFR ARE PERFORMED USING THE 2020 CKD-EPI STUDY REFIT EQUATION WITHOUT THE RACE VARIABLE FOR THE IDMS-TRACEABLE CREATININE METHODS.https://jasn.asnjournals.org/content/22/A SN.0864379913 CBCon 03-12-2023 Erythrocyte distribution width (RBC) [Ratio] 12.9 % Normal 11.5 - 14.5 [facility] Comment on above: Performed By: #### R ENAL #### [facility] [place] [address] [place] [address] Hematocrit (Bld) [Volume fraction] 37.7 % Normal 36.0 - 46.0 [facility] Comment on above: Performed By: #### R ENAL #### [facility] [place] [address] [place] [address] Hemoglobin (Bld) [Mass/Vol] 12.1 g/dL Normal 12.0 - 16.0 [facility] Comment on above: Performed By: #### R ENAL #### [facility] [place] [address] [place] [address] MCHC (RBC) [Mass/Vol] 32.1 g/dL Normal 32.0 - 36.0 [facility] Comment on above: Performed By: #### R ENAL #### [facility] [place] [address] [place] [address] MCV (RBC) [Entitic vol] 92 fL Normal 80 - 100 [facility] Comment on above: Performed By: #### R ENAL #### [facility] [place] [address] [place] [address] Platelets (Bld) [#/Vol] 288 10*3/uL Normal 150 - 450 [facility] Comment on above: Performed By: #### R ENAL #### [facility] [place] [address] [place] [address] RBC 4.09 x10E12/L Normal 4.00 - 5.20 [facility] Comment on above: Performed By: #### R ENAL #### [facility] [place] [address] [place] [address] WBC (Bld) [#/Vol] 6.1 10*3/uL Normal 4.4 - 11.3 [facility] Comment on above: Performed By: #### R ENAL #### [facility] [place] [address] [place] [address] Clinical Event Noteon 2022 Clinical Event Note [...] repeat imaging at some point. Monitor. Demarco Andrea D.O. Electronic Signatures: Demarco Andrea (DO) (Signed 12-Mar-2023 19:40) Authored: Clinical Event Note Last Updated: 12-Mar-2023 19:40 by Demarco Andrea (DO) Normal [facility] Clinical Event Note-CT PEon 03-12-2023 Clinical Event Note-CT PE Clinical Event: Clinical Event Note: TopicCT PE Details CT PE neg and no evidence for PE, some evidence of interstitial edema. Objective Information T PRBPMAPSpO2 [id number]/88273 % Date/Time03/11 19:319 20:159 19: 20:159 19:31 Range(35.9C - 36.7C ) (55 - 73 ) (18 - 18 ) (126 - 190 )/ (83 - 109 ) (92% - 97% ) Electronic Signatures: JANA ESTRADA (CHEMIST [employer]ERO[employer]-SOUND RECORDIST) (Signed 11-Mar-2023 22:33) Authored: Clinical Event Note Last Updated: 11-Mar-2023 22:33 by AJNA ESTRADA (CHEMIST STERO[employer]-SOUND RECORDIST) Normal [facility] Daily Progress Note-Medicine on 03-12-2023 Daily Progress Note-Medicine Service: Medicine Subjective Data: DAMARI RIOS is a 47 year old Female who is Hospital Day # 5. Patient reports having shortness of breath with lying flat primarily. She admits to still having some nausea. She reports having diarrhea yesterday. Objective Data: Objective Information: T PRBPMAPSpO2 [id number]/02802 % Date/Time03/12 5: 5: 5: 5: 5:45 [...] -Monitor. Hypert (more content not included)... Normal [facility] - Hematology and Cell countson 03-12-2023 Erythrocyte distribution width (RBC) [Ratio] 12.9 % See Below [facility] Work Phone: Comment on above: Reference Range: 11. 5 - 14.5 Hematocrit (Bld) [Volume fraction] 37.7 % See Below [facility] Work Phone: Comment on above: Reference Range: 36. 0 - 46.0 Hemoglobin (Bld) [Mass/Vol] 12.1 g/dL See Below [facility] Work Phone: Comment on above: Reference Range: 12. 0 - 16.0 MCHC (RBC) [Mass/Vol] 32.1 g/dL See Below [facility] Work Phone: Comment on above: Reference Range: 32. 0 - 36.0 MCV (RBC) [Entitic vol] 92 fL 80 - 100 [facility] Work Phone: Platelets (Bld) [#/Vol] 288 10*3/uL 150 - 450 [facility] Work Phone: RBC (Bld) [#/Vol] 4.09 {x10E12/L} See Below [facility] Work Phone: Comment on above: Reference Range: 4.0 0 - 5.20 WBC (Bld) [#/Vol] 6.1 10*3/uL 4.4 - 11.3 [facility] Work Phone: MAGNESIUMon 03-12-2023 Magnesium [Mass/Vol] 1.94 mg/dL Normal 1.60 - 2.40 [facility] Comment on above: Performed By: #### M G #### [facility] [place] [address] [place] [address] Magnesium [Mass/Vol] 1.89 mg/dL Normal 1.60 - 2.40 [facility] Comment on above: Performed By: #### R ENAL #### [facility] [place] [address] [place] [address] Magnesium, Serumon Magnesium [Mass/Vol] 1.94 mg/dL See Below [facility] Work Phone: Comment on above: Reference Range: 1.6 0 - 2.40 Magnesium [Mass/Vol] 1.89 mg/dL See Below [facility] Work Phone: Comment on above: Reference Range: 1.6 0 - 2.40 RENAL FUNCTION PANELon 03-12 Albumin [Mass/Vol] 3.2 g/dL Low 3.4 - 5.0 [facility] Comment on above: Performed By: #### R ENAL #### [facility] [place] [address] [place] [address] Anion gap [Moles/Vol] 10 mmol/L Normal 10 - 20 [facility] Comment on above: Performed By: #### R ENAL #### [facility] [place] [address] [place] [address] Calcium [Mass/Vol] 8.5 mg/dL Low 8.6 - 10.3 [facility] Comment on above: Performed By: #### R ENAL #### [facility] [place] [address] [place] [address] Chloride [Moles/Vol] 103 mmol/L Normal 98 - 107 [facility] Comment on above: Performed By: #### R ENAL #### [facility] [place] [address] [place] [address] Creatinine [Mass/Vol] 0.84 mg/dL Normal 0.50 - 1.05 [facility] Comment on above: Performed By: #### R ENAL #### [facility] [place] [address] [place] [address] GFR/1.73 sq M.predicted among non-blacks MDRD (S/P/Bld) [Vol rate/Area] 87 mL/min/{1.73_m2} Normal >90 [facility] Comment on above: Result Comment: CALC ULATIONS OF ESTIMATED GFR ARE PERFORMED USING THE 2020 CKD-EPI STUDY REFIT EQUATION WITHOUT THE RACE VARIABLE FOR THE IDMS-TRACEABLE CREATININE METHODS. https://jasn.asnjournals.org/content/early//ASN.41985 19197 Performed By: #### R ENAL #### [facility] [place] [address] [place] [address] Glucose [Mass/Vol] 83 mg/dL Normal 74 - 99 [facility] Comment on above: Performed By: #### R ENAL #### [facility] [place] [address] [address] [place] [address] HCO3 (Bld) [Moles/Vol] 30 mmol/L Normal 21 - 32 [facility] Comment on above: Performed By: #### R ENAL #### [facility] [place] [address] [place] [address] Phosphate [Mass/Vol] 3.3 mg/dL Normal 2.5 - 4.9 [facility] Comment on above: Result Comment: The performance characteristics of phosphorus testing in heparinized plasma have been validated by the individual laboratory site where testing is performed. Testing on heparinized plasma is not approved by the FDA; however, such approval is not necessary. Performed By: #### R ENAL #### [facility] [place] [address] [place] [address] Potassium [Moles/Vol] 3.9 mmol/L Normal 3.5 - 5.3 [facility] Comment on above: Performed By: #### R ENAL #### [facility] [place] [address] [place] [address] Sodium [Moles/Vol] 139 mmol/L Normal 136 - 145 [facility] Comment on above: Performed By: #### R ENAL #### [facility] [place] [address] [place] [address] Urea nitrogen [Mass/Vol] 5 mg/dL Low 6 - 23 [facility] Comment on above: Performed By: #### R ENAL #### [facility] [place] [address] [place] [address] Renal Function Panelon 03-12 Albumin BCP dye [Mass/Vol] 3.2 g/dL below low threshold 3.4 - 5.0 [facility] Work Phone: Anion gap [Moles/Vol] 10 mmol/L 10 - 20 [facility] Work Phone: Calcium [Mass/Vol] 8.5 mg/dL below low threshold 8.6 - 10.3 [facility] Work Phone: Chloride [Moles/Vol] 103 mmol/L 98 - 107 [facility] Work Phone: CO2 [Moles/Vol] 30 mmol/L 21 - 32 [facility] Work Phone: Creatinine [Mass/Vol] 0.84 mg/dL See Below [facility] Work Phone: Comment on above: Reference Range: 0.5 0 - 1.05 Glucose [Mass/Vol] 83 mg/dL 74 - 99 [facility] Work Phone: Phosphate [Mass/Vol] 3.3 mg/dL 2.5 - 4.9 [facility] Work Phone: Comment on above: The performance casey acteristics of phosphorus testing in heparinized plasma have been validated by the individual laboratory site where testing is performed. Testing on heparinized plasma is not approved by the FDA; however, such approval is not necessary. Potassium [Moles/Vol] 3.9 mmol/L 3.5 - 5.3 [facility] Work Phone: Sodium [Moles/Vol] 139 mmol/L 136 - 145 [facility] Work Phone: Urea nitrogen [Mass/Vol] 5 mg/dL below low threshold 6 - 23 [facility] Work Phone: Renal Function Panel 87 {mL/min/1.73m2} >90 [facility] Work Phone: Comment on above: CALCULATIONS OF NURA MATED GFR ARE PERFORMED USING THE 2020 CKD-EPI STUDY REFIT EQUATION WITHOUT THE RACE VARIABLE FOR THE IDMS-TRACEABLE CREATININE METHODS.https://jasn.asnjournals.org/content//A .7390771052 BNPon 03-11-2023 Natriuretic peptide B (Bld) [Mass/Vol] 199 pg/mL High 0 - 99 [facility] Comment on above: Result Comment: . <1 00 pg/mL - Heart failure unlikely 100-299 pg/mL - Intermediate probability of acute heart . failure exacerbation. Correlate with clinical . context and patient history. >=300 pg/mL - Heart Failure likely. Correlate with clinical . context and patient history. BNP testing is performed using different testing methodology at [facility] than at other [facility]. Direct result comparisons should only be made within the same method. Performed By: #### M G #### [facility] [place] [address] [place] [address] CANCER AG 125on 03-11-2023 Cancer Ag 125 Qn 8.8 [arb'U]/mL Normal 0.0 - 30.2 [facility] Comment on above: Result Comment: CA 1 25 testing is performed by chemiluminescent immunoassay using the BeavEx. Values obtained with different analytic methods cannot [...] decisions. Performed By: #### T RP #### [facility] [place] [address] [facility] [place] [address] CBCon 03-11-2023 Erythrocyte distribution width (RBC) [Ratio] 13.2 % Normal 11.5 - 14.5 [facility] Comment on above: Performed By: #### T RP #### [facility] [place] [id number] [place] [address] [place] [address] Hematocrit (Bld) [Volume fraction] 34.9 % Low 36.0 - 46.0 [facility] Comment on above: Performed By: #### T RP #### [address] [place] [address] Hemoglobin (Bld) [Mass/Vol] 11.5 g/dL Low 12.0 - 16.0 [facility] Comment on above: Performed By: #### T RP #### [facility] [place] [id number] [place] [address] MCHC (RBC) [Mass/Vol] 33.0 g/dL Normal 32.0 - 36.0 [facility] Comment on above: Performed By: #### T RP #### [facility] [place] [address] [facility] [place] [address] MCV (RBC) [Entitic vol] 94 fL Normal 80 - 100 [facility] Comment on above: Performed By: #### T RP #### [facility] [place] [id number] [place], [place] [address] [address] Platelets (Bld) [#/Vol] 253 10*3/uL Normal 150 - 450 [facility] Comment on above: Performed By: #### T RPHS #### [facility] [place] [address] [place] [address] RBC 3.73 x10E12/L Low 4.00 - 5.20 [facility] Comment on above: Performed By: #### T RPHS #### [facility] [place] [address] [place] [address] WBC (Bld) [#/Vol] 6.8 10*3/uL Normal 4.4 - 11.3 [facility] Comment on above: Performed By: #### T RPHS #### [facility] [place] [address] [place] [address] Erythrocyte distribution width (RBC) [Ratio] 13.0 % Normal 11.5 - 14.5 [facility] Comment on above: Performed By: #### T RPHS #### [facility] [place] [address] [place] [address] Hematocrit (Bld) [Volume fraction] 33.7 % Low 36.0 - 46.0 [facility] Comment on above: Performed By: #### T RPHS #### [facility] [place] [id number] [place] [address] [place] [address] Hemoglobin (Bld) [Mass/Vol] 10.8 g/dL Low 12.0 - 16.0 [facility] Comment on above: Performed By: #### T RP #### [facility] [place] [id number] [place] [address] [place] [address] MCHC (RBC) [Mass/Vol] 32.0 g/dL Normal 32.0 - 36.0 [facility] Comment on above: Performed By: #### T RP #### [facility] [place] [id number] [place] [address] [place] [address] MCV (RBC) [Entitic vol] 93 fL Normal 80 - 100 [facility] Comment on above: Performed By: #### T RPHS #### [facility] [place] [address] [facility] [place] [address] Platelets (Bld) [#/Vol] 220 10*3/uL Normal 150 - 450 [facility] Comment on above: Performed By: #### T RPHS #### [facility] [place] [address] [place] [address] RBC 3.61 x10E12/L Low 4.00 - 5.20 [facility] Comment on above: Performed By: #### T RPHS #### [facility] [place] [address] [facility] [place] [address] WBC (Bld) [#/Vol] 6.5 10*3/uL Normal 4.4 - 11.3 [facility] Comment on above: Performed By: #### T [facility] #### [facility] [place] [address] [place] [address] COMPREHENSIVE PANELon 2022 Albumin [Mass/Vol] 3.0 g/dL Low 3.4 - 5.0 [facility] Comment on above: Performed By: #### R ENAL #### [facility] [place] [address] [place] [address] ALP [Catalytic activity/Vol] 89 U/L Normal 33 - 110 [facility] Comment on above: Performed By: #### R ENAL #### [facility] [place] [address] [place] [address] ALT [Catalytic activity/Vol] 20 U/L Normal 7 - 45 [facility] Comment on above: Result Comment: Anjelica ents treated with Sulfasalazine may generate falsely decreased results for ALT. Performed By: #### R ENAL #### [facility] [place] [address] [place] [address] Anion gap [Moles/Vol] 10 mmol/L Normal 10 - 20 [facility] Comment on above: Performed By: #### R ENAL #### [facility] [place] [address] [place] [address] AST [Catalytic activity/Vol] 19 U/L Normal 9 - 39 [facility] Comment on above: Performed By: #### R ENAL #### [facility] [place] [address] [place] [address] Bilirubin [Mass/Vol] 0.3 mg/dL Normal 0.0 - 1.2 [facility] Comment on above: Performed By: #### R ENAL #### [facility] [place] [address] [place] [address] Calcium [Mass/Vol] 8.1 mg/dL Low 8.6 - 10.3 [facility] Comment on above: Performed By: #### R ENAL #### [facility] [place] [address] [place] [address] Chloride [Moles/Vol] 104 mmol/L Normal 98 - 107 [facility] Comment on above: Performed By: #### R ENAL #### [facility] [place] [address] [place] [address] Creatinine [Mass/Vol] 0.85 mg/dL Normal 0.50 - 1.05 [facility] Comment on above: Performed By: #### R ENAL #### [facility] [place] [address] [place] [address] GFR/1.73 sq M.predicted among non-blacks MDRD (S/P/Bld) [Vol rate/Area] 85 mL/min/{1.73_m2} Normal >90 [facility] Comment on above: Result Comment: CALC ULATIONS OF ESTIMATED GFR ARE PERFORMED USING THE 2020 CKD-EPI STUDY REFIT EQUATION WITHOUT THE RACE VARIABLE FOR THE IDMS-TRACEABLE CREATININE METHODS. https://jasn.asnjournals.org/content/early//ASN.93280 35103 Performed By: #### R ENAL #### [facility] [place] [address] [place] [address] Glucose [Mass/Vol] 92 mg/dL Normal 74 - 99 [facility] Comment on above: Performed By: #### R ENAL #### [facility] [place] [address] [place] [address] HCO3 (Bld) [Moles/Vol] 27 mmol/L Normal 21 - 32 [facility] Comment on above: Performed By: #### R ENAL #### [facility] [place] [address] [place] [address] Potassium [Moles/Vol] 4.0 mmol/L Normal 3.5 - 5.3 [facility] Comment on above: Performed By: #### R ENAL #### [facility] [place] [address] [place] [address] Protein [Mass/Vol] 5.7 g/dL Low 6.4 - 8.2 [facility] Comment on above: Performed By: #### R ENAL #### [facility] [place] [address] [facility] [address] Sodium [Moles/Vol] 137 mmol/L Normal 136 - 145 [facility] Comment on above: Performed By: #### R ENAL #### [facility] [place] [address] [place] [address] Urea nitrogen [Mass/Vol] 8 mg/dL Normal 6 - 23 [facility] Comment on above: Performed By: #### R ENAL #### [facility] [place] [address] [place] [address] CT ANGIO CHEST FOR PEon 09- CT ANGIO CHEST FOR PE STUDY: CT Angiogram of the Chest; 03/11/2023 at 8:39 PM INDICATION: Dyspnea with elevated D-dimer, chest pressure and non-productive cough for a couple of days, getting worse. No surgeries to chest. COMPARISON: XR chest 03/08/2023, XR chest 02/28/2022 (images only; no report). ACCESSION NUMBER(S): [id number] ORDERING CLINICIAN: DEMARCO ANDREA DO TECHNIQUE: CTA of the chest was [...] MD Electronically signed by: ARISTEO MUÑOZ MD Normal [facility] Clinical Event Note-ED Post Discharge Result Follow Up: Compon 03-11-2023 Clinical Event Note-ED Post Discharge Result Follow Up: Comp Clinical Event: Clinical Event Note: TopicED Post Discharge Result Follow Up: Complete : Urine : E.coli Details Emergency Department Post-Discharge Group (outpatient pharmacists) reviewed the results of a positive urine culture that was collected from the patient in the emergency room. The patient was [facility] to [facility] The Culture Callback Team will turn over [...] Post-Discharge Culture Follow Up Team, please contact [phone]. . Adriana Thrasher, PharmD, [facility] PGY1 Email [employer] Electronic Signatures: Dora Singh ([facility]) (Signed 12-Mar-2023 14:59) Co-Signer: Clinical Event Note Adriana Thrasher ([facility]) (Signed 11-Mar-2023 11:20) Authored: Clinical Event Note Last Updated: 12-Mar-2023 14:59 by Dora Singh ([facility]) Normal [facility] D-DIMER, NON VTEon 3 D-DIMER, NON VTE 1589 ng/mL FEU Abnormal = 500 [facility] Comment on above: Result Comment: THE D-DIMER ASSAY IS REPORTED IN NG/ML FIBRINOGEN EQUIVALENT UNITS (FEU). THE RESULTS OF THIS ASSAY SHOULD NOT BE USED FOR THE EXCLUSION OF DEEP VEIN THROMBOSIS AND/OR PULMONARY EMBOLISM. Performed By: #### M G #### [facility] [place] [address] [place] [address] Daily Progress Note-Medicine on 03-11-2023 Daily Progress Note-Medicine Service: Medicine Subjective Data: DAMARI RIOS is a 47 year old Female who is Hospital Day # 4. Patient reports still having nausea and did have some diarrhea overnight. She denies chest pain, shortness of breath. Objective Data: Objective Information: T PRBPMAPSpO2 [id number]/9894% Date/Time03/11 9:309 9: 9: 9: 9:30 Range(35.9C - 36.2C [...] DVT prophylaxis -Lovenox subcu. Electronic Signatures: Demarco Andrea (DO) (Signed 11-Mar-2023 12:04) Authored: Service, Subjective Data, Objective Data, Assessment and Plan, Note Completion Last Updated: 11-Mar-2023 12:04 by Demarco Andrea (DO) Normal [facility] EMR ADDONon 03-11-2023 ADDON CONFIRMATION REQUEST REC'D Normal [facility] Comment on above: Performed By: #### R ENAL #### [facility] [place] [address] [place] [address] Performed By: #### M G #### [facility] [place] [address] [place] [address] Electrocardiogram 12 Leadon 03-11-2023 Electrocardiogram 12 Lead Ventricular Rate 67 Atrial Rate 67 P-R Interval 148 QRS Duration 76 Q-T Interval 390 QTC Calculation(Bazett) 412 P Lima 38 R Lima 5 T Lima 89 QRS Count 11 Q Onset 220 P Onset 146 P Offset 191 T Offset 415 QTC Fredericia 404 Diagnosis Class Abnormal Diagnosis Normal sinus rhythm Nonspecific ST and T wave abnormality Abnormal ECG Confirmed by Sina Medina ([id number]) on 03/17/2023 11:44:43 AM Normal [facility] - Chemistry and C hemistry - challengeon 03-11-2023 Albumin BCP dye [Mass/Vol] 3.0 g/dL below low threshold 3.4 - 5.0 [facility] Work Phone: ALP [Catalytic activity/Vol] 89 U/L 33 - 110 [facility] Work Phone: ALT With P-5'-P [Catalytic activity/Vol] 20 U/L 7 - 45 [facility] Work Phone: Comment on above: Patients treated wit h Sulfasalazine may generate falsely decreased results for ALT. Anion gap [Moles/Vol] 10 mmol/L 10 - 20 [facility] Work Phone: AST With P-5'-P [Catalytic activity/Vol] 19 U/L 9 - 39 [facility] Work Phone: Bilirubin [Mass/Vol] 0.3 mg/dL 0.0 - 1.2 [facility] Work Phone: Calcium [Mass/Vol] 8.1 mg/dL below low threshold 8.6 - 10.3 [facility] Work Phone: Chloride [Moles/Vol] 104 mmol/L 98 - 107 [facility] Work Phone: CO2 [Moles/Vol] 27 mmol/L 21 - 32 [facility] Work Phone: Creatinine [Mass/Vol] 0.85 mg/dL See Below [facility] Work Phone: Comment on above: Reference Range: 0.5 0 - 1.05 Glucose [Mass/Vol] 92 mg/dL 74 - 99 [facility] Work Phone: Natriuretic peptide B (Bld) [Mass/Vol] 199 pg/mL above high threshold 0 - 99 [facility] Work Phone: Comment on above: . <100 pg/mL - Heart failure [id number] pg/mL - Intermediate probability of acute heart. failure exacerbation. Correlate with clinical. context and patient history. >=300 pg/mL - Heart Failure likely. Correlate with clinical. context and patient history.BNP testing is performed using different testing methodology at [facility] than at other [facility]. Direct result comparisons should only be made within the same method. Potassium [Moles/Vol] 4.0 mmol/L 3.5 - 5.3 [facility] Work Phone: Protein [Mass/Vol] 5.7 g/dL below low threshold 6.4 - 8.2 [facility] Work Phone: Sodium [Moles/Vol] 137 mmol/L 136 - 145 [facility] Work Phone: Urea nitrogen [Mass/Vol] 8 mg/dL 6 - 23 [facility] Work Phone: Laboratory - Coagulationon 0 03-11-2023 Fibrin D-dimer DDU (PPP) [Mass/Vol] 1589 {ng/mL_FEU} Abnormal = 500 [facility] Work Phone: Comment on above: THE D-DIMER ASSAY IS REPORTED IN NG/ML FIBRINOGEN EQUIVALENT UNITS (FEU). THE RESULTS OF THIS ASSAY SHOULD NOT BE USED FOR THE EXCLUSION OF DEEP VEIN THROMBOSIS AND/OR PULMONARY EMBOLISM. Laboratory - Hematology and Cell countson 03-11-2023 Erythrocyte distribution width (RBC) [Ratio] 13.2 % See Below [facility] Work Phone: Comment on above: Reference Range: 11. 5 - 14.5 Hematocrit (Bld) [Volume fraction] 34.9 % below low threshold See Below [facility] Work Phone: Comment on above: Reference Range: 36. 0 - 46.0 Hemoglobin (Bld) [Mass/Vol] 11.5 g/dL below low threshold See Below [facility] Work Phone: Comment on above: Reference Range: 12. 0 - 16.0 MCHC (RBC) [Mass/Vol] 33.0 g/dL See Below [facility] Work Phone: Comment on above: Reference Range: 32. 0 - 36.0 MCV (RBC) [Entitic vol] 94 fL 80 - 100 [facility] Work Phone: Platelets (Bld) [#/Vol] 253 10*3/uL 150 - 450 [facility] Work Phone: RBC (Bld) [#/Vol] 3.73 {x10E12/L} below low threshold See Below [facility] Work Phone: Comment on above: Reference Range: 4.0 0 - 5.20 WBC (Bld) [#/Vol] 6.8 10*3/uL 4.4 - 11.3 [facility] Work Phone: Erythrocyte distribution width (RBC) [Ratio] 13.0 % See Below [facility] Work Phone: Comment on above: Reference Range: 11. 5 - 14.5 Hematocrit (Bld) [Volume fraction] 33.7 % below low threshold See Below [facility] Work Phone: Comment on above: Reference Range: 36. 0 - 46.0 Hemoglobin (Bld) [Mass/Vol] 10.8 g/dL below low threshold See Below [facility] Work Phone: Comment on above: Reference Range: 12. 0 - 16.0 MCHC (RBC) [Mass/Vol] 32.0 g/dL See Below [facility] Work Phone: Comment on above: Reference Range: 32. 0 - 36.0 MCV (RBC) [Entitic vol] 93 fL 80 - 100 [facility] Work Phone: Platelets (Bld) [#/Vol] 220 10*3/uL 150 - 450 [facility] Work Phone: RBC (Bld) [#/Vol] 3.61 {x10E12/L} below low threshold See Below [facility] Work Phone: Comment on above: Reference Range: 4.0 0 - 5.20 WBC (Bld) [#/Vol] 6.5 10*3/uL 4.4 - 11.3 [facility] Work Phone: MAGNESIUMon 03-11-2023 Magnesium [Mass/Vol] 1.80 mg/dL Normal 1.60 - 2.40 [facility] Comment on above: Performed By: #### M G #### [facility] [place] [address] [place] [address] Magnesium [Mass/Vol] 1.91 mg/dL Normal 1.60 - 2.40 [facility] Comment on above: Performed By: #### M G #### [facility] [place] [address] [facility] [place] [address] Magnesium, Serumon Magnesium [Mass/Vol] 1.80 mg/dL See Below [facility] Work Phone: Comment on above: Reference Range: 1.6 0 - 2.40 Magnesium [Mass/Vol] 1.91 mg/dL See Below [facility] Work Phone: Comment on above: Reference Range: 1.6 0 - 2.40 No Panel Informationon 03-11 85 {mL/min/1.73m2} >90 [facility] Work Phone: Comment on above: CALCULATIONS OF NURA MATED GFR ARE PERFORMED USING THE 2020 CKD-EPI STUDY REFIT EQUATION WITHOUT THE RACE VARIABLE FOR THE IDMS-TRACEABLE CREATININE METHODS.https://jasn.asnjournals.org/content/early//A SN.8906358337 https://MUSEXPRDWE 1:8080/musescripts/mus eweb.dll?RetrieveTestB yDateTime?PatientID=[id number]&Date= 3&Time=16%3a16%3a38%3a 00&TestType=ECG&Site=1 &OutputType=PDF&Ext=PD F [facility] Work Phone: Normal sinus rhythm [facility] Work Phone: Abnormal [facility] Work Phone: [phone] [facility] Work Phone: [phone] [facility] Work Phone: [phone] [facility] Work Phone: [phone] [facility] Work Phone: [phone] [facility] Work Phone: 11 1 [facility] Work Phone: [phone] [facility] Work Phone: [phone] [facility] Work Phone: [phone] [facility] Work Phone: [phone] [facility] Work Phone: [phone] [facility] Work Phone: [phone] [facility] Work Phone: [phone] [facility] Work Phone: [phone] [facility] Work Phone: PHOSPHORUSon 03-11-2023 Phosphate [Mass/Vol] 2.7 mg/dL Normal 2.5 - 4.9 [facility] Comment on above: Result Comment: The performance characteristics of phosphorus testing in heparinized plasma have been validated by the individual laboratory site where testing is performed. Testing on heparinized plasma is not approved by the [facility]; however, such approval is not necessary. Performed By: #### R ENAL #### [facility] [place] [address] [place] [address] Phosphorus, Serumon 03-11-20 23 Phosphate [Mass/Vol] 2.7 mg/dL 2.5 - 4.9 [facility] Work Phone: Comment on above: The performance csaey acteristics of phosphorus testing in heparinized plasma have been validated by the individual laboratory site where testing is performed. Testing on heparinized plasma is not approved by the FDA; however, such approval is not necessary. RENAL FUNCTION PANELon 03-11 Albumin [Mass/Vol] 2.8 g/dL Low 3.4 - 5.0 [facility] Comment on above: Performed By: #### R ENAL #### [facility] [place] [address] [address] [place] [place] [address] Anion gap [Moles/Vol] 11 mmol/L Normal 10 - 20 [facility] Comment on above: Performed By: #### R ENAL #### [facility] [place] [address] [place] [address] Calcium [Mass/Vol] 8.1 mg/dL Low 8.6 - 10.3 [facility] Comment on above: Performed By: #### R ENAL #### [facility] [place] [address] [place] [address] Chloride [Moles/Vol] 105 mmol/L Normal 98 - 107 [facility] Comment on above: Performed By: #### R ENAL #### [facility] [place] [address] [place] [address] Creatinine [Mass/Vol] 0.85 mg/dL Normal 0.50 - 1.05 [facility] Comment on above: Performed By: #### R ENAL #### [facility] [place] [address] [place] [address] GFR/1.73 sq M.predicted among non-blacks MDRD (S/P/Bld) [Vol rate/Area] 85 mL/min/{1.73_m2} Normal >90 [facility] Comment on above: Result Comment: CALC ULATIONS OF ESTIMATED GFR ARE PERFORMED USING THE 2020 CKD-EPI STUDY REFIT EQUATION WITHOUT THE RACE VARIABLE FOR THE IDMS-TRACEABLE CREATININE METHODS. https://jasn.asnjournals.org/content//ASN.49849 22642 Performed By: #### R ENAL #### [facility] [place] [address] [place] [address] Glucose [Mass/Vol] 80 mg/dL Normal 74 - 99 [facility] Comment on above: Performed By: #### R ENAL #### [facility] [place] [address] [place] [address] HCO3 (Bld) [Moles/Vol] 24 mmol/L Normal 21 - 32 [facility] Comment on above: Performed By: #### R ENAL #### [facility] [place] [address] [place] [address] Phosphate [Mass/Vol] 3.0 mg/dL Normal 2.5 - 4.9 [facility] Comment on above: Result Comment: The performance characteristics of phosphorus testing in heparinized plasma have been validated by the individual laboratory site where testing is performed. Testing on heparinized plasma is not approved by the FDA; however, such approval is not necessary. Performed By: #### R ENAL #### [facility] [place] [address] [place] [address] Potassium [Moles/Vol] 3.4 mmol/L Low 3.5 - 5.3 [facility] Comment on above: Performed By: #### R ENAL #### [facility] [place] [address] [place] [address] Sodium [Moles/Vol] 137 mmol/L Normal 136 - 145 [facility] Comment on above: Performed By: #### R ENAL #### [facility] [place] [address] [place] [address] Urea nitrogen [Mass/Vol] 9 mg/dL Normal 6 - 23 [facility] Comment on above: Performed By: #### R ENAL #### [facility] [place] [address] [place] [address] Radiologyon 03-11-2023 XR Chest Single view Normal [facility] Work Phone: Renal Function Panelon 03-11 Albumin BCP dye [Mass/Vol] 2.8 g/dL below low threshold 3.4 - 5.0 [facility] Work Phone: Anion gap [Moles/Vol] 11 mmol/L 10 - 20 [facility] Work Phone: Calcium [Mass/Vol] 8.1 mg/dL below low threshold 8.6 - 10.3 [facility] Work Phone: Chloride [Moles/Vol] 105 mmol/L 98 - 107 [facility] Work Phone: CO2 [Moles/Vol] 24 mmol/L 21 - 32 [facility] Work Phone: Creatinine [Mass/Vol] 0.85 mg/dL See Below [facility] Work Phone: Comment on above: Reference Range: 0.5 0 - 1.05 Glucose [Mass/Vol] 80 mg/dL 74 - 99 [facility] Work Phone: Phosphate [Mass/Vol] 3.0 mg/dL 2.5 - 4.9 [facility] Work Phone: Comment on above: The performance casey acteristics of phosphorus testing in heparinized plasma have been validated by the individual laboratory site where testing is performed. Testing on heparinized plasma is not approved by the FDA; however, such approval is not necessary. Potassium [Moles/Vol] 3.4 mmol/L below low threshold 3.5 - 5.3 [facility] Work Phone: Sodium [Moles/Vol] 137 mmol/L 136 - 145 [facility] Work Phone: Urea nitrogen [Mass/Vol] 9 mg/dL 6 - 23 [facility] Work Phone: Renal Function Panel 85 {mL/min/1.73m2} >90 [facility] Work Phone: Comment on above: CALCULATIONS OF NURA MATED GFR ARE PERFORMED USING THE 2020 CKD-EPI STUDY REFIT EQUATION WITHOUT THE RACE VARIABLE FOR THE IDMS-TRACEABLE CREATININE METHODS.https://jasn.asnjournals.org/content//A SN.2383839294 CT Angio Chest For PEon 0 03-11-2023 CT Angio Chest For PE Normal [facility] Work Phone: TROPONIN I, HIGH SENSITIVITY on 03-11-2023 TROPONIN I, HIGH SENSITIVITY 8 ng/L Normal 0 - 13 [facility] Comment on above: Result Comment: . Less [...] performed using a different testing methodology at [facility] than at other [facility]. Direct result comparisons should only be made within the same method. Performed By: #### T [facility] #### [facility] [place] [address] [place] [address] TROPONIN I, HIGH SENSITIVITY 8 ng/L Normal 0 - 13 [facility] Comment on above: Result Comment: . Less [...] performed using a different testing methodology at [facility] than at other [facility]. Direct result comparisons should only be made within the same method. Performed By: #### T [facility] #### [facility] [place] [address] [place] [address] Tropinin I.cardiac panel High sensitivity method 8 ng/L 0 - 13 [facility] Work Phone: Comment on above: .Less than [...] performed using a different testing methodology at [facility] than at other [facility]. Direct result comparisons should only be made within the same method. Tropinin I.cardiac panel High sensitivity method 8 ng/L 0 - 13 [facility] Work Phone: Comment on above: .Less than [...] performed using a different testing methodology at [facility] than at other [facility]. Direct result comparisons should only be made within the same method. BASIC METABOLIC PANELon Anion gap [Moles/Vol] 10 mmol/L Normal 10 - 20 [facility] Comment on above: Performed By: #### M G #### [facility] [place] [address] [place] [address] Calcium [Mass/Vol] 8.0 mg/dL Low 8.6 - 10.3 [facility] Comment on above: Performed By: #### M G #### [facility] [place] [address] [place] [address] Chloride [Moles/Vol] 102 mmol/L Normal 98 - 107 [facility] Comment on above: Performed By: #### M G #### [facility] [place] [address] [place] [address] Creatinine [Mass/Vol] 0.91 mg/dL Normal 0.50 - 1.05 [facility] Comment on above: Performed By: #### M G #### [facility] [place] [address] [place] [address] GFR/1.73 sq M.predicted among non-blacks MDRD (S/P/Bld) [Vol rate/Area] 79 mL/min/{1.73_m2} Normal >90 [facility] Comment on above: Result Comment: CALC ULATIONS OF ESTIMATED GFR ARE PERFORMED USING THE 2020 CKD-EPI STUDY REFIT EQUATION WITHOUT THE RACE VARIABLE FOR THE IDMS-TRACEABLE CREATININE METHODS. https://jasn.asnjournals.org/content//ASN.47244 08242 Performed By: #### M G #### [facility] [place] [address] [place] [address] Glucose [Mass/Vol] 89 mg/dL Normal 74 - 99 [facility] Comment on above: Performed By: #### M G #### [facility] [place] [address] [place] [address] HCO3 (Bld) [Moles/Vol] 28 mmol/L Normal 21 - 32 [facility] Comment on above: Performed By: #### M G #### [facility] [place] [address] [place] [address] Potassium [Moles/Vol] 3.7 mmol/L Normal 3.5 - 5.3 [facility] Comment on above: Performed By: #### M G #### [facility] [place] [address] [place] [address] Sodium [Moles/Vol] 136 mmol/L Normal 136 - 145 [facility] Comment on above: Performed By: #### M G #### [facility] [place] [address] [place] [address] Urea nitrogen [Mass/Vol] 10 mg/dL Normal 6 - 23 [facility] Comment on above: Performed By: #### M G #### [facility] [place] [address] [place] [address] CBCon 03-10-2023 Erythrocyte distribution width (RBC) [Ratio] 12.8 % Normal 11.5 - 14.5 [facility] Comment on above: Performed By: #### T RP #### [facility] [place] [address] [place] [address] Hematocrit (Bld) [Volume fraction] 33.8 % Low 36.0 - 46.0 [facility] Comment on above: Performed By: #### T RPHS #### [facility] [place] [address] [place] [address] Hemoglobin (Bld) [Mass/Vol] 11.0 g/dL Low 12.0 - 16.0 [facility] Comment on above: Performed By: #### T RP #### [facility] [place] [address] [place] [address] MCHC (RBC) [Mass/Vol] 32.5 g/dL Normal 32.0 - 36.0 [facility] Comment on above: Performed By: #### T RPHS #### [facility] [place] [address] [place] [address] MCV (RBC) [Entitic vol] 93 fL Normal 80 - 100 [facility] Comment on above: Performed By: #### T RPHS #### [facility] [place] [address] [place] [address] Platelets (Bld) [#/Vol] 222 10*3/uL Normal 150 - 450 [facility] Comment on above: Performed By: #### T RPHS #### [facility] [place] [address] [place] [address] RBC 3.63 x10E12/L Low 4.00 - 5.20 [facility] Comment on above: Performed By: #### T RPHS #### [facility] [place] [address] [place] [address] WBC (Bld) [#/Vol] 8.0 10*3/uL Normal 4.4 - 11.3 [facility] Comment on above: Performed By: #### T RPHS #### [facility] [place] [address] [place] [address] Cancer Antigen, 125on 2022 Cancer Ag 125 Qn 8.8 [arb'U]/mL 0.0 - 30.2 [facility] Work Phone: Comment on above: CA 125 testing is pe rformed by chemiluminescent immunoassay using the Siemens Dotspin. Values obtained with different analytic methods cannot [...] she reports this was done vaginally at [facility]. 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 No murmur, rub or gallop. [place] beat not displaced. Gastrointestinal: Soft, tender in [...] ALB 3. (more content not included)... Normal [facility] Daily Progress Note-Medicine on 03-10-2023 Daily Progress Note-Medicine Service: Medicine Subjective Data: DAMARI RIOS is a 47 year old Female who is Hospital Day # 3. Patient reports still having some nausea and some diffuse abdominal pain. She denies chest pain or shortness of breath. Objective Data: Objective Information: T PRBPMAPSpO2 [id number]% Date/Time03/10 14: 14: 14: 14: 14:31 Range(36C [...] DVT prophylaxis -Lovenox subcu. Electronic Signatures: Demarco Andrea (DO) (Signed 10-Mar-2023 18:05) Authored: Service, Subjective Data, Objective Data, Assessment and Plan, Note Completion Last Updated: 10-Mar-2023 18:05 by Demarco Andrea (DO) Normal [facility] Laboratory - Chemistry and C hemistry - challengeon 03-10-2023 Anion gap [Moles/Vol] 10 mmol/L 10 - 20 [facility] Work Phone: Calcium [Mass/Vol] 8.0 mg/dL below low threshold 8.6 - 10.3 [facility] Work Phone: Chloride [Moles/Vol] 102 mmol/L 98 - 107 [facility] Work Phone: CO2 [Moles/Vol] 28 mmol/L 21 - 32 [facility] Work Phone: Creatinine [Mass/Vol] 0.91 mg/dL See Below [facility] Work Phone: Comment on above: Reference Range: 0.5 0 - 1.05 Glucose [Mass/Vol] 89 mg/dL 74 - 99 [facility] Work Phone: Potassium [Moles/Vol] 3.7 mmol/L 3.5 - 5.3 [facility] Work Phone: Sodium [Moles/Vol] 136 mmol/L 136 - 145 [facility] Work Phone: Urea nitrogen [Mass/Vol] 10 mg/dL 6 - 23 [facility] Work Phone: Laboratory - Hematology and Cell countson 03-10-2023 Erythrocyte distribution width (RBC) [Ratio] 12.8 % See Below [facility] Work Phone: Comment on above: Reference Range: 11. 5 - 14.5 Hematocrit (Bld) [Volume fraction] 33.8 % below low threshold See Below [facility] Work Phone: Comment on above: Reference Range: 36. 0 - 46.0 Hemoglobin (Bld) [Mass/Vol] 11.0 g/dL below low threshold See Below [facility] Work Phone: Comment on above: Reference Range: 12. 0 - 16.0 MCHC (RBC) [Mass/Vol] 32.5 g/dL See Below [facility] Work Phone: Comment on above: Reference Range: 32. 0 - 36.0 MCV (RBC) [Entitic vol] 93 fL 80 - 100 [facility] Work Phone: Platelets (Bld) [#/Vol] 222 10*3/uL 150 - 450 [facility] Work Phone: RBC (Bld) [#/Vol] 3.63 {x10E12/L} below low threshold See Below [facility] Work Phone: Comment on above: Reference Range: 4.0 0 - 5.20 WBC (Bld) [#/Vol] 8.0 10*3/uL 4.4 - 11.3 [facility] Work Phone: No Panel Informationon 03-10 79 {mL/min/1.73m2} >90 [facility] Work Phone: Comment on above: CALCULATIONS OF NURA MATED GFR ARE PERFORMED USING THE 2020 CKD-EPI STUDY REFIT EQUATION WITHOUT THE RACE VARIABLE FOR THE IDMS-TRACEABLE CREATININE METHODS.https://jasn.asnjournals.org/content/early/A SN.2985400284 BASIC METABOLIC PANELon Calcium [Mass/Vol] 8.5 mg/dL Low 8.6 - 10.3 [facility] Comment on above: Performed By: #### T RP #### [facility] [place] [address] [place] [address] Anion gap [Moles/Vol] 10 mmol/L Normal 10 - 20 [facility] Comment on above: Performed By: #### T RPHS #### [facility] [place] [address] [place] [address] Chloride [Moles/Vol] 103 mmol/L Normal 98 - 107 [facility] Comment on above: Performed By: #### T RPHS #### [facility] [place] [address] [place] [address] Creatinine [Mass/Vol] 0.96 mg/dL Normal 0.50 - 1.05 [facility] Comment on above: Performed By: #### T RPHS #### [facility] [place] [address] [place] [address] GFR/1.73 sq M.predicted among non-blacks MDRD (S/P/Bld) [Vol rate/Area] 74 mL/min/{1.73_m2} Normal >90 [facility] Comment on above: Result Comment: CALC ULATIONS OF ESTIMATED GFR ARE PERFORMED USING THE 2020 CKD-EPI STUDY REFIT EQUATION WITHOUT THE RACE VARIABLE FOR THE IDMS-TRACEABLE CREATININE METHODS. https://jasn.asnjournals.org/content/early/ASN.19919 52423 Performed By: #### T RP #### [facility] [place] [address] [address] [place] [address] Glucose [Mass/Vol] 96 mg/dL Normal 74 - 99 [facility] Comment on above: Performed By: #### T RPHS #### [facility] [place] [address] [place] [address] HCO3 (Bld) [Moles/Vol] 27 mmol/L Normal 21 - 32 [facility] Comment on above: Performed By: #### T RPHS #### [facility] [place] [address] [place] [address] Potassium [Moles/Vol] 3.7 mmol/L Normal 3.5 - 5.3 [facility] Comment on above: Performed By: #### T RP #### [facility] [place] [address] [place] [address] Sodium [Moles/Vol] 136 mmol/L Normal 136 - 145 [facility] Comment on above: Performed By: #### T RPHS #### [facility] [place] [address] [place] [address] Urea nitrogen [Mass/Vol] 14 mg/dL Normal 6 - 23 [facility] Comment on above: Performed By: #### T RP #### [facility] [place] [address] [place] [address] CBCon 03-09-2023 Erythrocyte distribution width (RBC) [Ratio] 12.9 % Normal 11.5 - 14.5 [facility] Comment on above: Performed By: #### T RPHS #### [facility] [place] [address] [place] [address] Hematocrit (Bld) [Volume fraction] 37.0 % Normal 36.0 - 46.0 [facility] Comment on above: Performed By: #### T RPHS #### [facility] [place] [address] [place] [address] Hemoglobin (Bld) [Mass/Vol] 11.9 g/dL Low 12.0 - 16.0 [facility] Comment on above: Performed By: #### T RPHS #### [facility] [place] [address] [place] [address] MCHC (RBC) [Mass/Vol] 32.2 g/dL Normal 32.0 - 36.0 [facility] Comment on above: Performed By: #### T [facility] #### [facility] [place] [address] [place] [address] MCV (RBC) [Entitic vol] 93 fL Normal 80 - 100 [facility] Comment on above: Performed By: #### T RP #### [facility] [place] [address] [place] [address] Platelets (Bld) [#/Vol] 203 10*3/uL Normal 150 - 450 [facility] Comment on above: Performed By: #### T RP #### [facility] [place] [address] [place] [address] RBC 3.97 x10E12/L Low 4.00 - 5.20 [facility] Comment on above: Performed By: #### T RP #### [facility] [place] [address] [place] [address] WBC (Bld) [#/Vol] 8.1 10*3/uL Normal 4.4 - 11.3 [facility] Comment on above: Performed By: #### T [facility] #### [facility] [place] [address] [place] [address] Daily Progress Note-Medicine on 03-09-2023 Daily Progress Note-Medicine Service: Medicine Subjective Data: DAMARI RIOS is a 47 year old Female who is Hospital Day # 2. Patient reports having nausea, vomiting, abdominal pain, right flank pain. She denies shortness of breath or diarrhea. Objective Data: Objective Information: T PRBPMAPSpO2 [id number]% Date/Time03/09 13: 13: 13: 13: 13:44 Range(36.2C [...] DVT prophylaxis -Lovenox subcu. Electronic Signatures: Demarco Andrea () (Signed 09-Mar-2023 17:30) Authored: Service, Subjective Data, Objective Data, Assessment and Plan, Note Completion Last Updated: 09-Mar-2023 17:30 by Demarco Andrea (DO) [facility] Discharge Planning [id number] 03-09-2023 Discharge Planning Note2 Discharge Planning: Planned Dispositionhome Discharge DestinationHome with roommate AMPAC < 20no [place] of Choice Explainedyes Anticipated Discharge [id number] Discharge Planning 03/09/23: 13:33 Transitional Thread Milling Machine Set Up Operator Note: Discussed with interdisciplinary team. Met with [...] time. Will continue to follow. Nataly Saenz RNtelevision news photographer Coordinator 03/13/23: 14:03 Transitional Thread Milling Machine Set Up Operator Note: Discussed with interdisciplinary team. Met with the patient at the bedside to touch base regarding discharge plan. The patient continues to feel poorly. The patient continues to deny any discharge needs at this time. Will continue to follow. Nataly Saenz RNtelevision news photographer Coordinator 03/14/23 materials and corrosion engineer dc pt to home. RN removed 1 IV intact. RN provided dc instructions, educational material and teaching. Pt stated they understood teaching. Pt is being transported to ride by wheelchair. Jayce Cuellar RN Assessment: Discharge Planning Assessment [id number] Discharge Planning Assessment Completed byNataly Saenz RNtelevision news photographer Coordinator Primary Contact Name and NumberStacy Rory ([place]) [phone] Prior Level of FunctioningIndependent Lives Withalone(1) Living Arrangementshouse(1) Stated Reason for AdmissionKidney stones(1) Arrived Fromemergency department (1) PCPDr. Kimberly Cason MD [facility] [place] Resource/Environmental Concernsnone(1) Anticipated Transition [place](1) Services Anticipated at Transitionnone(1) Readmission Within the Last 30 Daysno previous admission in last 30 days InsuranceCaresource Anticipated Changes Related to Illnessnone Equipment Needed After Dischargenone Anticipated Discharge Facility/Level of Care Needs.Home Transportation Home Who/HowFriend Medication Adherence/Afford/Obtai jess Nursing Checklist: Lines/Cathetersremoved /appropriate for next level of care Discharge Med Rec Reconciled with eMARyes Patient has Prescriptionsyes Transportation for Discharge Confirmedyes Follow up Reviewedyes Discharge Instructions Reviewed WithPatient Discharge Instructions Outcomeverbalize recall/understanding Discharge Instructions Review Completed with Patient/Family (diet, activity, pt instructions)yes Discharge Documentation: Discharge/Transfer Date/[id number] 13:53 Transportation Methodprivate car Discharge Modewheelchair Code StatusCode Status order at time of discharge: Full Code Discharge Order Writtenyes [place] DNR Form Sent with Patient and/or Familyn/a Belongings CommentTele in bin Final Disposition.Home Electronic Signatures: Nataly Saenz (CLIN COOR) (Signed 13-Mar-2023 14:04) Authored: Discharge Planning, Assessment, Discharge Documentation Jayce Cuellar (CN) (Signed 14-Mar-2023 13:53) Authored: Discharge Planning, Nursing Checklist, Discharge Documentation Last Updated: 14-Mar-2023 13:53 by Jayce Cuellar (BRYSON) References: 1. Data Referenced From Patient Profile - Adult v2 09-Mar-2023 13:00 Normal [facility] Laboratory - Chemistry and C hemistry - challengeon 03-09-2023 Anion gap [Moles/Vol] 10 mmol/L 10 - 20 [facility] Work Phone: Calcium [Mass/Vol] 8.5 mg/dL below low threshold 8.6 - 10.3 [facility] Work Phone: Chloride [Moles/Vol] 103 mmol/L 98 - 107 [facility] Work Phone: CO2 [Moles/Vol] 27 mmol/L 21 - 32 [facility] Work Phone: Creatinine [Mass/Vol] 0.96 mg/dL See Below [facility] Work Phone: Comment on above: Reference Range: 0.5 0 - 1.05 Glucose [Mass/Vol] 96 mg/dL 74 - 99 [facility] Work Phone: Potassium [Moles/Vol] 3.7 mmol/L 3.5 - 5.3 [facility] Work Phone: Sodium [Moles/Vol] 136 mmol/L 136 - 145 [facility] Work Phone: Urea nitrogen [Mass/Vol] 14 mg/dL 6 - 23 [facility] Work Phone: Laboratory - Hematology and Cell countson 03-09-2023 Erythrocyte distribution width (RBC) [Ratio] 12.9 % See Below [facility] Work Phone: Comment on above: Reference Range: 11. 5 - 14.5 Hematocrit (Bld) [Volume fraction] 37.0 % See Below [facility] Work Phone: Comment on above: Reference Range: 36. 0 - 46.0 Hemoglobin (Bld) [Mass/Vol] 11.9 g/dL below low threshold See Below [facility] Work Phone: Comment on above: Reference Range: 12. 0 - 16.0 MCHC (RBC) [Mass/Vol] 32.2 g/dL See Below [facility] Work Phone: Comment on above: Reference Range: 32. 0 - 36.0 MCV (RBC) [Entitic vol] 93 fL 80 - 100 [facility] Work Phone: Platelets (Bld) [#/Vol] 203 10*3/uL 150 - 450 [facility] Work Phone: RBC (Bld) [#/Vol] 3.97 {x10E12/L} below low threshold See Below [facility] Work Phone: Comment on above: Reference Range: 4.0 0 - 5.20 WBC (Bld) [#/Vol] 8.1 10*3/uL 4.4 - 11.3 [facility] Work Phone: No Panel Informationon 03-09 Normal [facility] Work Phone: 74 {mL/min/1.73m2} >90 [facility] Work Phone: Comment on above: CALCULATIONS OF NURA MATED GFR ARE PERFORMED USING THE 2020 CKD-EPI STUDY REFIT EQUATION WITHOUT THE RACE VARIABLE FOR THE IDMS-TRACEABLE CREATININE METHODS.https://jasn.asnjournals.org/content/22/A .[id number] Order Reconciliationon 03-09 Order Reconciliation Page 1 [...] 2 puff(s) inhaled every 6 hours, As [id number] AM Reviewed and Held furosemide 20 mg oral tablet 1 tab(s) orally 4 times a [id number] Reviewed and Held ibuprofen 800 mg oral tablet 1 tab(s) orally every 8 hours, As Needed [id number] 12:00 AM Reviewed and Held metoprolol tartrate [...] Every 8 Hours and as Needed Normal [facility] Patient Profile - Adult v2on 03-09-2023 Patient Profile - Adult v2 Profile: Initial Info: How to be AddressedMelanie Spoken Language PreferredEnglish Stated Reason for AdmissionKidnrafael stones Wants Family/Rep Notified of Admissionaware Notify PCPdo not notify PCP Informed of Patient Visiting Rightsyes Arrived Fromemergency department Patient Belongingsremains with patient Patient Belongings Remaining with Patientclothing; cell phone/electronics Medications Brought to Hospitalno General Health: Weight in kg77.4 kilogram(s)(1) Weight in epv442.6 pound(s) Weight Methodactual (measured) Scale Typebed Height [...] Arrangementshouse Services Anticipated at Transitionnone Anticipated Transition [place] Significant IndicatorsComplete Information Review: Allergies, Home Meds and Significant Events have been Reviewed and Verified with Patient/Familyyes ALLERGY, INTOLERANCE, ADVERSE EVENT: Allergies: penicillin: Drug, Anaphylaxis, Active Intolerances: codeine: Drug, GI Upset, Active Electronic Signatures: Suzanne Nj (RN) (Signed 09-Mar-2023 13:02) Authored: Initial Info, General Health, RSP Based Care, Substance, Health Mgmt, Relationship/Environ, Additional Information Last Updated: 09-Mar-2023 13:02 by Suzanne Nj (YUNI) References: 1. Data Referenced From 1. Vital Signs 08-Mar-2023 15:54 2. Data Referenced From History and Physical 08-Mar-2023 23:30 Normal [facility] Admission Risk Screen - Adul ton 03-08-2023 Admission Risk Screen - Adult Allergies: Allergies: penicillin: Anaphylaxis Intolerances: codeine: GI Upset Patient Verification: New W ID Band Applied in my Departmentno Type of ID Patient is WearingW wristband, but not applied here Patient Transferred from Other Facility ([facility], [facility],etc)no Patient Identity Verified Bypatient ID Band FULL [...] AlertFor Ebola-like Symptoms: Isolate Patient and Notify Provider/Stage Electrician For Contact: Notify Provider/Stage Electrician Advance Directive: Advance Directive/DNRno (2) Advance Directive [...] demonstration; verbal instruction Cultural Considerationsnone Developmental Considerationsnone Restorationism Considerationsnone Learning Assessment (Other Learner): Other learner availableno Depression Screen: During the past month, have you often been bothered by feeling down, depressed or hopelessno During the past month, have you often had little interest or pleasure in doing thingsno Have you had any thoughts of harming anyone elseno (1) Patriot Suicide: Risk Screen Not Applicable/Able to Answerable to be screened In the Past Month: Have you wished you were or could go to sleep and not wake upno(1) In the Past Month: Have you had any actual thoughts of killing yourself no(1) Lifetime: Have you ever done, started to do, or prepared to do anything to end your lifeno Patriot Suicide Risknegative Adult Nutrition Screen: Have you [...] Spiritual Screen: Are there any cultural, spiritual, islam practices/values/needs that are important for us to knowno CAGE: Is this an injured patient at a Trauma Center ([facility]/[place]/[facility]/[place]): no (2) Vaccinations: Vaccination - Influenza Vaccination Screen: Is it flu season (between and September 29)Yes Screening for identified contraindications to influenza vaccinationno contraindications identified Influenza vaccine indicatedyes Vaccination - Pneumonia Vaccination Screen: Patient has received a previous pneumonia vaccine:no/unknown... Immunocompetent persons with underlying chronic conditions or reside in watermelon harvesting supervisor care facilitiesnone of these conditions Persons with Functional o (more content not included)... Normal [facility] BASIC METABOLIC PANELon 09-0 Anion gap [Moles/Vol] 15 mmol/L Normal 10 - 20 [facility] Comment on above: Performed By: #### B MP #### [facility] [place] [address] [place] [address] Calcium [Mass/Vol] 9.1 mg/dL Normal 8.6 - 10.3 [facility] Comment on above: Performed By: #### B MP #### [facility] [place] [address] [place] [address] Chloride [Moles/Vol] 100 mmol/L Normal 98 - 107 [facility] Comment on above: Performed By: #### B MP #### [facility] [place] [address] [place] [address] Creatinine [Mass/Vol] 0.96 mg/dL Normal 0.50 - 1.05 [facility] Comment on above: Performed By: #### B MP #### [facility] [place] [address] [place] [address] GFR/1.73 sq M.predicted among non-blacks MDRD (S/P/Bld) [Vol rate/Area] 74 mL/min/{1.73_m2} Normal >90 [facility] Comment on above: Result Comment: CALC ULATIONS OF ESTIMATED GFR ARE PERFORMED USING THE 2020 CKD-EPI STUDY REFIT EQUATION WITHOUT THE RACE VARIABLE FOR THE IDMS-TRACEABLE CREATININE METHODS. https://jasn.asnjournals.org/content/early/ASN.32140 22038 Performed By: #### B MP #### [facility] [place] [address] [place] [address] Glucose [Mass/Vol] 87 mg/dL Normal 74 - 99 [facility] Comment on above: Performed By: #### B MP #### [facility] [place] [address] [place] [address] HCO3 (Bld) [Moles/Vol] 25 mmol/L Normal 21 - 32 [facility] Comment on above: Performed By: #### B MP #### [facility] [place] [address] [place] [address] Potassium [Moles/Vol] 4.6 mmol/L Normal 3.5 - 5.3 [facility] Comment on above: Result Comment: MILD HEMOLYSIS DETECTED. The result may be falsely elevated due to hemolysis or other interferents. Clinical correlation is recommended. Repeat testing may be considered. Performed By: #### B MP #### [facility] [place] [address] [place] [address] Sodium [Moles/Vol] 135 mmol/L Low 136 - 145 [facility] Comment on above: Performed By: #### B MP #### [facility] [place] [address] [place] [address] Urea nitrogen [Mass/Vol] 15 mg/dL Normal 6 - 23 [facility] Comment on above: Performed By: #### B MP #### [facility] [place] [address] [place] [address] CBC AND DIFFERENTIALon 03-08 % AUTOMATED IMMATURE GRAN 0.5 % Normal 0.0 - 0.9 [facility] Comment on above: Result Comment: Evelina ture Granulocyte Count (IG) includes promyelocytes, myelocytes and metamyelocytes but does not include bands. Percent differential counts (%) should be interpreted in the context of the absolute cell counts (cells/L). Performed By: #### C BCDF #### [facility] [place] [address] [place] [address] Basophils (Bld) [#/Vol] 0.03 10*3/uL Normal 0.00 - 0.10 [facility] Comment on above: Performed By: #### C BCDF #### [address] [address] Basophils/100 WBC (Bld) 0.3 % Normal 0.0 - 2.0 [facility] Comment on above: Performed By: #### C BCDF #### [address] [address] Eosinophils (Bld) [#/Vol] 0.01 10*3/uL Normal 0.00 - 0.70 [facility] Comment on above: Performed By: #### C BCDF #### [address] [address] Eosinophils/100 WBC (Bld) 0.1 % Normal 0.0 - 6.0 [facility] Comment on above: Performed By: #### C BCDF #### [address] [address] Erythrocyte distribution width (RBC) [Ratio] 12.9 % Normal 11.5 - 14.5 [facility] Comment on above: Performed By: #### C BCDF #### [address] [address] Hematocrit (Bld) [Volume fraction] 41.6 % Normal 36.0 - 46.0 [facility] Comment on above: Performed By: #### C BCDF #### [facility] [place] [id number] [place] [address] Hemoglobin (Bld) [Mass/Vol] 14.0 g/dL Normal 12.0 - 16.0 [facility] Comment on above: Performed By: #### C BCDF #### [address] [address] Lymphocytes (Bld) [#/Vol] 1.09 10*3/uL Low 1.20 - 4.80 [facility] Comment on above: Performed By: #### C BCDF #### [facility] [place] [address] [facility] [place] [address] Lymphocytes/100 WBC (Bld) 10.1 % Normal 13.0 - 44.0 [facility] Comment on above: Performed By: #### C BCDF #### [facility] [place] [address] [facility] [place] [address] MCHC (RBC) [Mass/Vol] 33.7 g/dL Normal 32.0 - 36.0 [facility] Comment on above: Performed By: #### C BCDF #### [facility] [place] [address] [place] [address] MCV (RBC) [Entitic vol] 90 fL Normal 80 - 100 [facility] Comment on above: Performed By: #### C BCDF #### [facility] [place] [id number] [place] [address] [place] [address] Monocytes (Bld) [#/Vol] 0.92 10*3/uL Normal 0.10 - 1.00 [facility] Comment on above: Performed By: #### C BCDF #### [facility] [place] [id number] [place] [address] [place] [address] Monocytes/100 WBC (Bld) 8.5 % Normal 2.0 - 10.0 [facility] Comment on above: Performed By: #### C BCDF #### [facility] [place] [id number] [place] [address] [place] [address] Neutrophils (Bld) [#/Vol] 8.73 10*3/uL High 1.20 - 7.70 [facility] Comment on above: Performed By: #### C BCDF #### [facility] [place] [address] [place] [address] Neutrophils/100 WBC (Bld) 80.5 % Normal 40.0 - 80.0 [facility] Comment on above: Performed By: #### C BCDF #### [facility] [place] [address] [place] [address] Platelets (Bld) [#/Vol] 260 10*3/uL Normal 150 - 450 [facility] Comment on above: Performed By: #### C BCDF #### [facility] [place] [address] [place] [address] RBC 4.64 x10E12/L Normal 4.00 - 5.20 [facility] Comment on above: Performed By: #### C BCDF #### [facility] [place] [address] [place] [address] WBC (Bld) [#/Vol] 10.8 10*3/uL Normal 4.4 - 11.3 [facility] Comment on above: Performed By: #### C BCDF #### [facility] [place] [address] [place] [address] CT Abdomen and Pelvis with I V Contraston 03-08-2023 CT Abdomen and Pelvis W contrast IV Normal [facility] Work Phone: Complete Blood Count + Diffe rentialon 03-08-2023 Basophils/100 WBC (Bld) 0.3 % 0.0 - 2.0 [facility] Work Phone: Erythrocyte distribution width (RBC) [Ratio] 12.9 % See Below [facility] Work Phone: Comment on above: Reference Range: 11. 5 - 14.5 Hematocrit (Bld) [Volume fraction] 41.6 % See Below [facility] Work Phone: Comment on above: Reference Range: 36. 0 - 46.0 Hemoglobin (Bld) [Mass/Vol] 14.0 g/dL See Below [facility] Work Phone: Comment on above: Reference Range: 12. 0 - 16.0 Lymphocytes/100 WBC (Bld) 10.1 % See Below [facility] Work Phone: Comment on above: Reference Range: 13. 0 - 44.0 MCHC (RBC) [Mass/Vol] 33.7 g/dL See Below [facility] Work Phone: Comment on above: Reference Range: 32. 0 - 36.0 MCV (RBC) [Entitic vol] 90 fL 80 - 100 [facility] Work Phone: Monocytes/100 WBC (Bld) 8.5 % 2.0 - 10.0 [facility] Work Phone: Neutrophils/100 WBC (Bld) 80.5 % See Below [facility] Work Phone: Comment on above: Reference Range: 40. 0 - 80.0 Platelets (Bld) [#/Vol] 260 10*3/uL 150 - 450 [facility] Work Phone: RBC (Bld) [#/Vol] 4.64 {x10E12/L} See Below [facility] Work Phone: Comment on above: Reference Range: 4.0 0 - 5.20 WBC (Bld) [#/Vol] 10.8 10*3/uL 4.4 - 11.3 [facility] Work Phone: Complete Blood Count + Differential 0.03 {x10E9/L} See Below [facility] Work Phone: Comment on above: Reference Range: 0.0 0 - 0.10 Complete Blood Count + Differential 0.01 {x10E9/L} See Below [facility] Work Phone: Comment on above: Reference Range: 0.0 0 - 0.70 Complete Blood Count + Differential 0.92 {x10E9/L} See Below [facility] Work Phone: Comment on above: Reference Range: 0.1 0 - 1.00 Complete Blood Count + Differential 1.09 {x10E9/L} below low threshold See Below [facility] Work Phone: Comment on above: Reference Range: 1.2 0 - 4.80 Complete Blood Count + Differential 8.73 {x10E9/L} above high threshold See Below [facility] Work Phone: Comment on above: Reference Range: 1.2 0 - 7.70 Complete Blood Count + Differential 0.1 % 0.0 - 6.0 [facility] Work Phone: Complete Blood Count + Differential 0.5 % 0.0 - 0.9 [facility] Work Phone: Comment on above: Immature Granulocyte Count (IG) includes promyelocytes, myelocytes and metamyelocytes but does not include bands. Percent differential counts (%) should be interpreted in the context of the absolute cell counts (cells/L). Cult, Urineon 03-08-2023 Bacteria identified Cx Nom (U) Abnormal [facility] Work Phone: HEPATIC FUNCTION PANELon Albumin [Mass/Vol] 3.8 g/dL Normal 3.4 - 5.0 [facility] Comment on above: Performed By: #### T RPHS #### [facility] [place] [address] [place] [address] ALP [Catalytic activity/Vol] 73 U/L Normal 33 - 110 [facility] Comment on above: Performed By: #### T RPHS #### [facility] [place] [address] [place] [address] ALT [Catalytic activity/Vol] 16 U/L Normal 7 - 45 [facility] Comment on above: Result Comment: Anjelica ents treated with Sulfasalazine may generate falsely decreased results for ALT. Performed By: #### T RPHS #### [facility] [place] [address] [place] [address] AST [Catalytic activity/Vol] 26 U/L Normal 9 - 39 [facility] Comment on above: Result Comment: MILD HEMOLYSIS DETECTED. The result may be falsely elevated due to hemolysis or other interferents. Clinical correlation is recommended. Repeat testing may be considered. Performed By: #### T RPHS #### [facility] [place] [address] [place] [address] Bilirubin [Mass/Vol] 0.9 mg/dL Normal 0.0 - 1.2 [facility] Comment on above: Performed By: #### T RPHS #### [facility] [place] [address] [place] [address] Bilirubin.indirect [Mass/Vol] 0.1 mg/dL Normal 0.0 - 0.3 [facility] Comment on above: Result Comment: MILD HEMOLYSIS DETECTED. The result may be falsely decreased due to hemolysis or other interferents. Clinical correlation is recommended. Repeat testing may be considered. Performed By: #### T [facility] #### [facility] [place] [address] [place] [address] Protein [Mass/Vol] 7.3 g/dL Normal 6.4 - 8.2 [facility] Comment on above: Performed By: #### T [facility] #### [facility] [place] [address] [place] [address] Hepatic Function Panelon Albumin BCP dye [Mass/Vol] 3.8 g/dL 3.4 - 5.0 [facility] Work Phone: ALP [Catalytic activity/Vol] 73 U/L 33 - 110 [facility] Work Phone: ALT With P-5'-P [Catalytic activity/Vol] 16 U/L 7 - 45 [facility] Work Phone: Comment on above: Patients treated wit h Sulfasalazine may generate falsely decreased results for ALT. AST With P-5'-P [Catalytic activity/Vol] 26 U/L 9 - 39 [facility] Work Phone: Comment on above: MILD HEMOLYSIS DETEC IMELDA. The result may be falsely elevated due tohemolysis or other interferents. Clinical correlation is recommended.Repeat testing may be considered. Bilirubin [Mass/Vol] 0.9 mg/dL 0.0 - 1.2 [facility] Work Phone: Bilirubin.direct [Mass/Vol] 0.1 mg/dL 0.0 - 0.3 [facility] Work Phone: Comment on above: MILD HEMOLYSIS DETEC IMELDA. The result may be falsely decreased due tohemolysis or other interferents. Clinical correlation is recommended.Repeat testing may be considered. Protein [Mass/Vol] 7.3 g/dL 6.4 - 8.2 [facility] Work Phone: LACTATEon 03-08-2023 Lactate [Moles/Vol] 0.5 mmol/L Normal 0.4 - 2.0 [facility] Comment on above: Result Comment: Yesi puncture immediately after or during the administration of Metamizole may lead to falsely low results. Testing should be performed immediately prior to Metamizole dosing. Performed By: #### L ACT #### [facility] [place] [address] [place] [address] LIPASEon 03-08-2023 Lipase [Catalytic activity/Vol] 13 U/L Normal 9 - 82 [facility] Comment on above: Result Comment: Yesi puncture immediately after or during the administration of Metamizole may lead to falsely low results. Testing should be performed immediately prior to Metamizole dosing. U-jjeofy-k-benzoquinone imine (metabolite of Acetaminophen) will generate erroneously low results in samples for patients that have taken toxic doses of acetaminophen. Performed By: #### R ENAL #### [facility] [place] [address] [facility] [place] [address] Laboratory - Chemistry and C hemistry - challengeon 03-08-2023 Anion gap [Moles/Vol] 15 mmol/L 10 - 20 [facility] Work Phone: Calcium [Mass/Vol] 9.1 mg/dL 8.6 - 10.3 [facility] Work Phone: Chloride [Moles/Vol] 100 mmol/L 98 - 107 [facility] Work Phone: CO2 [Moles/Vol] 25 mmol/L 21 - 32 [facility] Work Phone: Creatinine [Mass/Vol] 0.96 mg/dL See Below [facility] Work Phone: Comment on above: Reference Range: 0.5 0 - 1.05 Glucose [Mass/Vol] 87 mg/dL 74 - 99 [facility] Work Phone: Potassium [Moles/Vol] 4.6 mmol/L 3.5 - 5.3 [facility] Work Phone: Comment on above: MILD HEMOLYSIS DETEC IMELDA. The result may be falsely elevated due tohemolysis or other interferents. Clinical correlation is recommended.Repeat testing may be considered. Sodium [Moles/Vol] 135 mmol/L below low threshold 136 - 145 [facility] Work Phone: TSH Qn 0.67 m[IU]/L See Below [facility] Work Phone: Comment on above: Reference Range: 0.4 4 - 3.98 TSH testing is performed using different testing methodology at [facility] than at other [facility]. Direct result comparisons should only be made within the same method. TSH Qn Canceled [facility] Work Phone: Comment on above: TSH testing is perfo rmed using different testing methodology at [facility] than at other [facility]. Direct result comparisons should only be made within the same method. Urea nitrogen [Mass/Vol] 15 mg/dL 6 - 23 [facility] Work Phone: Lactate, Levelon 03-08-2023 Lactate [Moles/Vol] 0.5 mmol/L 0.4 - 2.0 [facility] Work Phone: Comment on above: Venipuncture immedia tely after or during the administration of Metamizole may lead to falsely low results. Testing should be performed immediately prior to Metamizole dosing. Lipase, Serumon 03-08-2023 Lipase [Catalytic activity/Vol] 13 U/L 9 - 82 [facility] Work Phone: Comment on above: Venipuncture immedia tely after or during the administration of Metamizole may lead to falsely low results. Testing should be performed immediately prior to Metamizole dosing. F-jlepqo-r-benzoquinone imine (metabolite of Acetaminophen) will generate erroneously low results in samples for patients that have taken toxic doses of acetaminophen. No Panel Informationon 03-08 74 {mL/min/1.73m2} >90 [facility] Work Phone: Comment on above: CALCULATIONS OF NURA MATED GFR ARE PERFORMED USING THE 2020 CKD-EPI STUDY REFIT EQUATION WITHOUT THE RACE VARIABLE FOR THE IDMS-TRACEABLE CREATININE METHODS.https://jasn.asnjournals.org/content/early/A SN.7087676448 Provider Note - ED v3on Provider Note [...] discussed with attending physician Dr. Kelly Matthews, EM PGY3 HISTORY OF PRESENTING ILLNESS DAMARI is a 47 year old Female and was seen by me at 08-Mar-2023 15:58 for a chief complaint of abdominal pain (Patient c/o right sided abdominal pain for the past week, (more content not included)... Normal [facility] Radiologyon 03-08-2023 XR Chest 2 Views Normal [facility] Work Phone: Risk Screen - Adult Emergenc yon 03-08-2023 Risk Screen - Adult Emergency Preferred Language: Preferred Language: Preferred Language for Discussing Health Care (patient/designee)Engl demetrius Patient Preferred Pharmacy: Patient Preferred Pharmacy Statement: [...] an injured patient at a Trauma Center ([facility]/[place]): no Electronic Signatures: Dion Cedeño (RN) (Signed 08-Mar-2023 15:56) Authored: Preferred Language, Patient Preferred Pharmacy, Advanced Directives, Family Violence Adult, Learning Assessment (Patient), Learning Assessment (Other Learner), Pressure Injury/TB/Substance, Pressure Injury, CAGE Last Updated: 08-Mar-2023 15:56 by Dion Cedeño (RN) Normal [facility] TSH WITH REFLEX TO FREE T4 I F ABNORMALon 03-08-2023 TSH Qn 0.67 m[IU]/L Normal 0.44 - 3.98 [facility] Comment on above: Result Comment: TSH testing is performed using different testing methodology at [facility] than at other [facility]. Direct result comparisons should only be made within the same method. Performed By: #### R ENAL #### [facility] [place] [address] [place] [address] TSH Canceled Normal [facility] Comment on above: Order Comment: TEST TSH WITH REFLEX TO FREE T4 IF ABNORMAL WAS CANCELLED, 03/08/2023 17:57Condensed orders with other chemistries. Result Comment: TSH testing is performed using different testing methodology at [facility] than at other [facility]. Direct result comparisons should only be made within the same method. Performed By: #### R ENAL #### [facility] [place] [address] [place] [address] Triage - EDon 03-08-2023 Triage - ED [...] BMI (kg/m2): 29.311 Calculated BSA (m2) 1.87 [place] Coma Scale: Best Eye Response: (E4) spontaneous Best Motor Response: (M6) obeys commands Best Verbal Response: (V5) oriented Cyndee Score: 15 Allergies: yes Patient has homicidal [...] 08-Mar-2023 15:56 by Dion Cedeño (YUNI) Normal [facility] UA MICROSCOPICon 03-08-2023 BACTERIA 4+ /HPF Abnormal [facility] Comment on above: Performed By: #### R ENAL #### [facility] [place] [address] [place] [address] Mucus Ql (Urine sed) 3+ /LPF Normal [facility] Comment on above: Performed By: #### R ENAL #### [facility] [place] [address] [place] [address] RBC 4 /HPF Normal 0-5 [facility] Comment on above: Performed By: #### R ENAL #### [facility] [place] [address] [address] SQUAMOUS EPITH. CELLS 11 /HPF Normal [facility] Comment on above: Performed By: #### R ENAL #### [facility] [place] [address] [place] [address] WBC (U) [#/Vol] /uL Abnormal 0-5 [facility] Comment on above: Performed By: #### R ENAL #### [facility] [place] [address] [facility] [place] [address] WBC CLUMPS FEW Normal [facility] Comment on above: Performed By: #### R ENAL #### [facility] [place] [address] [facility] [place] [address] URINALYSIS WITH CULTURE IF I NDICATEDon 03-08-2023 Appearance (U) HAZY Normal CLEAR [facility] Comment on above: Performed By: #### R ENAL #### [facility] [place] [address] [place] [address] Bilirubin Ql (U) Negative Normal NEGATIVE [facility] Comment on above: Performed By: #### R ENAL #### [facility] [place] [address] [place] [address] Color (U) YELLOW Normal STRAW,YELLOW [facility] Comment on above: Performed By: #### R ENAL #### [facility] [place] [address] [place] [address] Glucose Ql (U) Negative Normal NEGATIVE [facility] Comment on above: Performed By: #### R ENAL #### [facility] [place] [address] [place] [address] Hemoglobin Ql (U) SMALL(1+) Abnormal NEGATIVE [facility] Comment on above: Performed By: #### R ENAL #### [facility] [place] [address] [place] [address] Ketones Ql (U) Negative Normal NEGATIVE [facility] Comment on above: Performed By: #### R ENAL #### [facility] [place] [address] [place] [address] Leukocyte esterase Test strip Ql (U) LARGE(3+) Abnormal NEGATIVE [facility] Comment on above: Performed By: #### R ENAL #### [facility] [place] [address] [place] [address] Nitrite Ql (U) Positive Abnormal NEGATIVE [facility] Comment on above: Performed By: #### R ENAL #### [facility] [place] [address] [place] [address] pH (U) 5.0 [pH] Normal 5.0 - 8.0 [facility] Comment on above: Performed By: #### R ENAL #### [facility] [place] [address] [facility] [place] [address] Protein Ql (U) 100(2+) Abnormal NEGATIVE [facility] Comment on above: Performed By: #### R ENAL #### [facility] [place] [id number] [place] [address] Specific gravity (U) [Rel density] 1.018 Normal 1.005 - 1.035 [facility] Comment on above: Performed By: #### R ENAL #### [facility] [place] [address] [place] [address] Urobilinogen (U) [Mass/Vol] mg/dL Normal 0.0 - 1.9 [facility] Comment on above: Performed By: #### R ENAL #### [facility] [place] [address] [place] [address] Color (U) YELLOW See Below [facility] Work Phone: Comment on above: Reference Range: STR AW,YELLOW Glucose Ql (U) Negative NEGATIVE [facility] Work Phone: Ketones Ql (U) Negative NEGATIVE [facility] Work Phone: Leukocyte esterase Test strip Ql (U) LARGE(3+) Abnormal NEGATIVE [facility] Work Phone: pH (U) 5.0 [pH] 5.0 - 8.0 [facility] Work Phone: Protein (U) [Mass/Vol] 100(2+) Abnormal NEGATIVE [facility] Work Phone: RBC (U) [#/Vol] SMALL(1+) Abnormal NEGATIVE [facility] Work Phone: Specific gravity (U) [Rel density] 1.018 1 See Below [facility] Work Phone: Comment on above: Reference Range: 1.0 05 - 1.035 URINALYSIS WITH CULTURE IF INDICATED Positive Abnormal NEGATIVE [facility] Work Phone: URINALYSIS WITH CULTURE IF INDICATED <2.0 0.0 - 1.9 [facility] Work Phone: URINALYSIS WITH CULTURE IF INDICATED Negative NEGATIVE [facility] Work Phone: URINALYSIS WITH CULTURE IF INDICATED HAZY CLEAR [facility] Work Phone: URINE CULTURE,BACTERIALon URINE CULTURE,BACTERIAL PATIENT: DAMARI RIOS LOCATION: [address] [id number] : 77 AGE: SEX: F ORDERED BY: FARNAZ WILOSN SOURCE: URINE COLLECTED: 03/08/23 16:54 ANTIBIOTICS AT CARLY.: RECEIVED : 03/09/23 01:06 SITE: [facility] URINE CULTURE,BACTERIAL FINAL 03/11/23 09:04 ISOLATE1 : Escherichia coli >100,000 CFU/ML Organism E coli Antibiotic BP INTRP Ampicillin R Amox/Clavulanate S Ceftriaxone S Cefazolin S Ciprofloxacin S Nitrofurantoin S Gentamicin S Levofloxacin S Piperc/Tazobact S Trimeth/Sulfa R S=SUSCEPTIBLE I=INTERMEDIATE R=RESISTANT SDD=SUSCEPTIBLE DOSE DEPENDENT NS=NONSUSCEPTIBLE X=REPORTED IN ERROR Normal [facility] Comment on above: Performed By: #### T [facility] #### [facility] [place] [address] [place] [address] Urinalysis, Microscopicon Urinalysis, Microscopic 3+ [facility] Work Phone: Urinalysis, Microscopic 4+ Abnormal [facility] Work Phone: Urinalysis, Microscopic 11 {/HPF} [facility] Work Phone: Urinalysis, Microscopic 4 {/HPF} 0-5 [facility] Work Phone: Urinalysis, Microscopic FEW [facility] Work Phone: Urinalysis, Microscopic >182 Abnormal 0-5 [facility] Work Phone: CHEST 2 VIEWon 02-28-2022 CHEST 2 VIEW *FINAL Date of Service: 02/28/2022 15:21 Adm #: [id number] Reading Dr:ELLIS VARGAS Signdelia Dr: ELLIS VARGAS PROCEDURE: CHEST 2 VIEW - NXR 0020 REASON FOR EXAM: cough short of breath RESULT: Patient Name: DAMARI RIOS STUDY: CHEST 2 VIEW; 02/28/2022 3:21 pm INDICATION: cough short of breath; COMPARISON: October 31, 2016 ACCESSION NUMBER(S): [id number] ORDERING CLINICIAN: ELIZABETH LOWE TECHNIQUE: Views: PA and Lateral FINDINGS: RESULTS: The cardiac silhouette is within normal limits. Mediastinal contours are unremarkable. The lungs demonstrate no infiltrate or atelectasis. There is no evidence for pleural effusion. The osseous structures are unremarkable. IMPRESSION: No radiographic evidence for acute cardiopulmonary disease. Dictation workstation: [id number] Original Interpreting Physician: ELLIS VARGAS MD Original Transcribed by/Date: MMODAL Feb 28 2022 3:09P Original Electronically Signed by/Date: ELLIS VARGAS MD Feb 28 2022 4:58P Addendum Interpreting Physician: Addendum Transcribed by/Date: NO ADDENDUM Addendum Electronically Signed by/Date: [facility] Tobacco Screening.on 022 Tobacco use status CPHS b) No [facility] 103 DO Work Phone: Falls Risk [...] CUTOFF LEVEL: 150 NG /ML The metabolite W-fjcyx-qljhczwxlfdumz (LAAM) is not detected by this method [...] 890 202 DO Work Phone: CALCIUM TOTAL BLDon 09-27-19 22 Calcium [Mass/Vol] 9.5 mg/dL 8.5 - 10. 2 mg/dL [facility] PTH INTACT BLDon 09-26-2021 Parathyrin.intact [Mass/Vol] 33 pg/mL 15 - 65 pg/mL [facility] UA DIP, URINE (POC)on 2021 BILIRUBIN UA (POCT) Negative Negative [facility] CLARITY UA (POCT) Clear [facility] COLOR UA (POCT) Yellow [facility] GLUCOSE UA (POCT) Negative Negative mg/dL [facility] HEMOGLOBIN/BLOOD UA (POCT) Large Abnormal Negative [facility] KETONE UA (POCT) Negative Negative mg/dL [facility] LEUKOCYTES UA (POCT) Negative Negative [facility] NITRITE UA (POCT) Negative Negative [facility] PH UA (POCT) 5.0 4.5 - 8.0 [facility] Protein Ql (U) 100 mg/dL Abnormal Negative mg/dL [facility] SPECIFIC GRAVITY UA (POCT) >=1.030 1.005 - 1.030 [facility] UROBILINOGEN UA (POCT) 0.2 E.U./dL Alexa l E.U./dL [facility] URIC ACID BLOODon 09-26-2021 Urate [Mass/Vol] 5.1 mg/dL 2.5 - 6.6 mg/dL [facility] Antidep Panel, Urineon 08-[address] [facility] Comment on above: Result Comment: NONE DET Unit: ng/mL Urine Reporting Limit: 100 ng/mL Synonym(s): Elavil(R); Endep(R) Analysis by Gas Chromatography (GC) and Gas Chromatography/Mass Spectrometry (GC/MS) Performed By: #### U TCAQT #### [facility] [address] [place] [address] AMOXAPINE Normal [facility] Comment on above: Result Comment: NONE DET Unit: ng/mL Urine Reporting Limit: 100 ng/mL Synonym(s): Asendin(R) Analysis by Gas Chromatography (GC) and Gas Chromatography/Mass Spectrometry (GC/MS) Performed By: #### U TCAQT #### [address] [facility] Comment on above: Result Comment: NONE DET Unit: ng/mL Urine Reporting Limit: 100 ng/mL Synonym(s): Anafranil(R) Analysis by Gas Chromatography (GC) and Gas Chromatography/Mass Spectrometry (GC/MS) Performed By: #### U TCAQT #### [address] [facility] Comment on above: Result Comment: NONE DET Unit: ng/mL Urine Reporting Limit: 100 ng/mL Synonym(s): Imipramine Metabolite; Norpramin(R); Pertofrane(R) Desipramine is a metabolite of Imipramine and is also available as an independent therapeutic agent. 24-hour post-dose urine typically contains less than 1% of an administered dose. Analysis by Gas Chromatography (GC) and Gas Chromatography/Mass Spectrometry (GC/MS) Performed By: #### U TCAQT #### [address] [address] DESMETHYLCLOMIPRAMINE [facility] Comment on above: Result Comment: NONE DET Unit: ng/mL Urine Reporting Limit: 100 ng/mL Synonym(s): Clomipramine Metabolite Analysis by Gas Chromatography (GC) and Gas Chromatography/Mass Spectrometry (GC/MS) Performed By: #### U TCAQT #### [address] [address] DESMETHYLDOXEPIN [facility] Comment on above: Result Comment: NONE DET Unit: ng/mL Urine Reporting Limit: 100 ng/mL Synonym(s): Doxepin Metabolite Analysis by Gas Chromatography (GC) and Gas Chromatography/Mass Spectrometry (GC/MS) Performed By: #### U TCAQT #### [address] [address] DESMETHYLTRIMIPRAMINE [facility] Comment on above: Result Comment: NONE DET Unit: ng/mL Urine Reporting Limit: 100 ng/mL Synonym(s): Trimipramine Metabolite Analysis by Gas Chromatography (GC) and Gas Chromatography/Mass Spectrometry (GC/MS) Performed By: #### U TCAQT #### [place] [address] [facility] Comment on above: Result Comment: NONE DET Unit: ng/mL Urine Reporting Limit: 100 ng/mL Synonym(s): Sinequan(R) Analysis by Gas Chromatography (GC) and Gas Chromatography/Mass Spectrometry (GC/MS) Performed By: #### U TCAQT #### [place] [address] [facility] Comment on above: Result Comment: NONE DET Unit: ng/mL Urine Reporting Limit: 100 ng/mL Synonym(s): Prozac(R) Analysis by Gas Chromatography (GC) and Gas Chromatography/Mass Spectrometry (GC/MS) Performed By: #### U TCAQT #### [place] [address] [facility] Comment on above: Result Comment: NONE DET Unit: ng/mL Urine Reporting Limit: 100 ng/mL Synonym(s): Tofranil(R) Analysis by Gas Chromatography (GC) and Gas Chromatography/Mass Spectrometry (GC/MS) Performed By: #### U TCAQT #### [place] [address] [facility] Comment on above: Result Comment: NONE DET Unit: ng/mL Urine Reporting Limit: 100 ng/mL Synonym(s): Ludiomil(R) Analysis by Gas Chromatography (GC) and Gas Chromatography/Mass Spectrometry (GC/MS) Performed By: #### U TCAQT #### [place] [address] [facility] Comment on above: Result Comment: NONE DET Unit: ng/mL Urine Reporting Limit: 100 ng/mL Synonym(s): Remeron(R) Analysis by Gas Chromatography (GC) and Gas Chromatography/Mass Spectrometry (GC/MS) This test was developed and its performance characteristics determined by [facility]. It has not been cleared or approved by the US Food and Drug Administration. Testing performed at [facility] [address] [place] [id number] CLIA [id number] Test performed by: [facility], [address] [place] [address], unless otherwise specified. Performed at the [facility] unless otherwise noted. Performed By: #### U TCAQT #### [place] [address] [place] [address] [facility] Comment on above: Result Comment: NONE DET Unit: ng/mL Urine Reporting Limit: 100 ng/mL Synonym(s): Fluoxetine Metabolite Analysis by Gas Chromatography (GC) and Gas Chromatography/Mass Spectrometry (GC/MS) Performed By: #### U TCAQT #### [address] [facility] Comment on above: Result Comment: NONE [...] (GC/MS) Performed By: #### U TCAQT #### [address] [facility] Comment on above: Result Comment: NONE DET Unit: ng/mL Urine Reporting Limit: 100 ng/mL Synonym(s): Vivactil(R) Substance(s) known to interfere with the identity and/or quantity of the reported result: Norcyclobenzaprine (Cyclobenzaprine metabolite) and Desmethylsertraline (Sertraline metabolite). Analysis by Gas Chromatography (GC) and Gas Chromatography/Mass Spectrometry (GC/MS) Performed By: #### U TCAQT #### [address] [facility] Comment on above: Result Comment: NONE DET Unit: mcg/mL Urine Reporting Limit: 0.20 mcg/mL Synonym(s): Desyrel(R) Analysis by Gas Chromatography (GC) and Gas Chromatography/Mass Spectrometry (GC/MS) Performed By: #### U TCAQT #### [place] [address] [place] [address] [facility] Comment on above: Result Comment: NONE DET Unit: ng/mL Urine Reporting Limit: 100 ng/mL Synonym(s): Surmontil(R) Analysis by Gas Chromatography (GC) and Gas Chromatography/Mass Spectrometry (GC/MS) Performed By: #### U TCAQT #### [address] [address] URINE DRUG SCREENon 08-02-19 AMPHETAMINE/ECSTASY [facility] Comment on above: Result Comment: NEGA TIVE Performed at [address] [place] [address] Performed By: #### U DS #### [place] [address] [place] [address] [facility] Comment on above: Result Comment: NEGA TIVE Performed at [address] [place] [address] Performed By: #### U DS #### [facility] [address] [place] [address] [facility] [address] [place] [address] [facility] Comment on above: Result Comment: NEGA TIVE Performed at [facility] [address] [place] [address] [place] [address] Performed By: #### U DS #### [facility] [address] [place] [address] [facility] [address] [place] [address] [address] [facility] Comment on above: Result Comment: NEGA TIVE Performed at [facility] [address] [place] [address] [place] [address] Performed By: #### U DS #### [facility] [address] [place] [address] [facility] [address] [place] [address] [facility] Comment on above: Result Comment: NEGA TIVE Performed at [facility] [address] [place] [address] Performed By: #### U DS #### [facility] [address] [place] [address] [facility] [address] [place] [address] [facility] Comment on above: Result Comment: NEGA TIVE Performed at [facility] [address] [place] [address] Performed By: #### U DS #### [facility] [address] [place] [address] [facility] [address] [place] [address] [facility] Comment on above: Result Comment: NEGA TIVE Performed at [facility] [address] [place] [address] Performed By: #### U DS #### [facility] [address] [place] [address] [facility] [address] [place] [address] [facility] Comment on above: Result Comment: NEGA TIVE Performed at [facility] [address] [place] [address] Performed By: #### U DS #### [facility] [address] [place] [address] [facility] [address] [address] [place] [address] THC/CANNABINOIDS [facility] Comment on above: Result Comment: NEGA TIVE Performed at [facility] [address] [place] [address] Performed By: #### U DS #### [facility] [address] [place] [address] [facility] [address] [place] [address] [facility] Comment on above: Result Comment: Thes e [...] 200 ng/ml OXYCODONE 100 ng/ml Performed at [facility],[address] [place] [address] Performed By: #### U DS #### [facility] [address] [facility] [place] [address] [facility] [address] [place] [address] US KIDNEY/BLADDERon 03-04-20 [address] [facility] [address] Cardiac Scoringon 021 CT Cardiac Scoring Normal [facility] Work Phone: Laboratory - Chemistry and C hemistry - challengeon 11-25-2020 Albumin BCP dye [Mass/Vol] 4.3 g/dL 3.4 - 5.0 [facility] [employer] Work Phone: ALP [Catalytic activity/Vol] 86 U/L 33 - 110 [facility] [employer] Work Phone: ALT With P-5'-P [Catalytic activity/Vol] 116 U/L above high threshold 7 - 45 [facility] [employer] Work Phone: Comment on above: Patients treated wit h Sulfasalazine may generate falsely decreased results for ALT. Anion gap [Moles/Vol] 12 mmol/L 10 - 20 [facility] [employer] Work Phone: AST With P-5'-P [Catalytic activity/Vol] 107 U/L above high threshold 9 - 39 [facility] [employer] Work Phone: Bilirubin [Mass/Vol] 0.8 mg/dL 0.0 - 1.2 [facility] [employer] Work Phone: Calcium [Mass/Vol] 9.2 mg/dL 8.6 - 10.3 [facility] [employer] Work Phone: Chloride [Moles/Vol] 104 mmol/L 98 - 107 [facility] [employer] Work Phone: CO2 [Moles/Vol] 26 mmol/L 21 - 32 [facility] [employer] Work Phone: Creatinine [Mass/Vol] 0.97 mg/dL See Below [facility] [employer] Work Phone: Comment on above: Reference Range: 0.5 0 - 1.05 Glucose [Mass/Vol] 98 mg/dL 74 - 99 [facility] [employer] Work Phone: Potassium [Moles/Vol] 3.9 mmol/L 3.5 - 5.3 [facility] [employer] Work Phone: Protein [Mass/Vol] 7.3 g/dL 6.4 - 8.2 [facility] [employer] Work Phone: Sodium [Moles/Vol] 138 mmol/L 136 - 145 [facility] [employer] Work Phone: TSH Qn 1.84 m[IU]/L See Below [facility] [employer] Work Phone: Comment on above: Reference Range: 0.4 4 - 3.98 TSH testing is performed using different testing methodology at [facility] than at other [facility]. Direct result comparisons should only be made within the same method. Urea nitrogen [Mass/Vol] 12 mg/dL - [facility] [employer] Work Phone: Laboratory - Hematology and Cell countson 11-25-2020 Erythrocyte distribution width (RBC) [Ratio] 13.5 % See Below [facility] Work Phone: Comment on above: Reference Range: 11. 5 - 14.5 Hematocrit (Bld) [Volume fraction] 43.2 % See Below [facility] Work Phone: Comment on above: Reference Range: 36. 0 - 46.0 Hemoglobin (Bld) [Mass/Vol] 14.2 g/dL See Below [facility] [employer] Work Phone: Comment on above: Reference Range: 12. 0 - 16.0 MCHC (RBC) [Mass/Vol] 32.9 g/dL See Below [facility] [employer] Work Phone: Comment on above: Reference Range: 32. 0 - 36.0 MCV (RBC) [Entitic vol] 95 fL 80 - 100 [facility] [employer] Work Phone: Platelets (Bld) [#/Vol] 299 10*3/uL 150 - 450 [facility] [employer] Work Phone: RBC (Bld) [#/Vol] 4.55 {x10E12/L} See Below Un [facility] [employer] Work Phone: Comment on above: Reference Range: 4.0 0 - 5.20 WBC (Bld) [#/Vol] 5.8 10*3/uL 4.4 - 11.3 [facility] [employer] Work Phone: Lipid Panelon 11-25-2020 Cholesterol [Mass/Vol] 169 mg/dL 0 - 199 [facility] [employer] Work Phone: Comment on above: . AGE [...] Cholesterol in HDL [Mass/Vol] 34.9 mg/dL Abnormal [facility] [employer] Work Phone: Comment on above: . AGE VERY LOW LOW N ORMAL HIGH 0-19 Y < 35 < 40 40-45 ---- 20-24 Y ---- < 40 >45 ---- >24 Y ---- < 40 40-60 >60. Cholesterol in LDL [Mass/Vol] 100 mg/dL above high threshold 0 - 99 [employer] Phone: Comment on above: . NEAR BORD AGE BECKY RABLE OPTIMAL HIGH HIGH VERY HIGH 0-19 Y 0 - 109 --- 110-129 >/= 130 ---- 20-24 Y 0 - 119 --- 120-159 >/= 160 ---- >24 Y 0 - 99 100-129 130-159 160-189 >/=190. Cholesterol.total/Chol esterol in HDL [Mass ratio] 4.8 {ratio} [employer] Phone: Comment on above: REF VALUESDESIRABLE < 3.4HIGH RISK > 5.0 Triglyceride [Mass/Vol] 171 mg/dL above high threshold 0 - 149 [employer] Phone: Comment on above: . AGE DESIRABLE [...] Lipid Panel 34 mg/dL 0 - 40 [employer] Phone: No Panel Informationon 11-25 >60 >60 [employer] Phone: Comment on above: CALCULATIONS OF NURA MATED GFR ARE PERFORMED USING THE MDRD STUDY EQUATION FOR THE IDMS-TRACEABLE CREATININE METHODS. CLIN CHEM 2007;53:766-72 [email or web address] 1: 8080/musescripts/musew eb.dll?RetrieveTestByD ateTime?ZxzsfbaBK=3608 66629&Date=25-11-2020& Time=10%3a52%3a21%3a00 &TestType=ECG&Site=7&O utputType=PDF&Ext=PDF [facility] [employer] Work Phone: Normal sinus rhythm with sinus arrhythmia [facility] [employer] Work Phone: Borderline Abnormal [facility] [employer] Work Phone: [phone] 1 [facility] [employer] Work Phone: 200 1 [facility] [employer] Work Phone: 146 1 [facility] [employer] Work Phone: 220 1 [facility] [employer] Work Phone: 13 1 [facility] [employer] Work Phone: 52 1 [facility] [employer] Work Phone: 34 1 [facility] [employer] Work Phone: 45 1 [facility] [employer] Work Phone: [phone] 1 [facility] [employer] Work Phone: 370 1 [facility] [employer] Work Phone: 74 1 [facility] [employer] Work Phone: 148 1 [facility] [employer] Work Phone: 79 1 [facility] [employer] Work Phone: XR Chest PA and Lateralon IMPRESSION: No acute radiographic abnormality. General Store Manager: CASSIE Transcribe Date/Time: Oct 08 2020 3:02P Dictated by : NABOR SELF MD This examination was interpreted and the report reviewed and electronically signed by: NABRO SELF MD on Oct 08 2020 3:02PM [facility] DIVISION OF RADIOLOGY * * [...] Unremarkable. IMPRESSION IMPRESSION: No acute radiographic abnormality. General Store Manager: PSCB Transcribe Date/Time: Oct 08 2020 3:02P Dictated by : NABOR SELF MD This examination was interpreted and the report reviewed and electronically signed by: NABOR SELF MD on Oct 08 2020 3:02PM EST [facility] Radiology Study observation (narrative) [facility] XR Chest PA and LateralOrder ed By: Ccf Provider on 10-08-2020 [facility] Vital Signs Date Time Vital Sign Value Performing Clinician Richi smith 11-30-2024 17:03-0400 Body temperature 98.7 [degF] Dwayne Stephens MD Work Phone: [facility] 11-30-2024 17:03-0400 Diastolic blood pressure 86 mm[Hg] Dwayne Stephens MD Work Phone: [facility] 11-30-2024 17:03-0400 Heart rate 70 /min Dwayne Stephens MD Work Phone: [facility] 11-30-2024 17:03-0400 Respiratory rate 16 /min Dwayne Stephens MD Work Phone: [facility] 11-30-2024 17:03-0400 SaO2% (BldA) [Mass fraction] 98 % Dwayne Stephens MD Work Phone: 8([phone])837-090740 [place] [address] 11-30-2024 17:03-0400 Systolic blood pressure 146 mm[Hg] Dwayne Stephens MD Work Phone: 5(525)156-730592 [place] [address] 11-30-2024 15:25-0400 Body height 165.1 cm Dwayne Stephens MD Work Phone: 0(204)[phone] [place] [address] 11-30-2024 15:25-0400 Body mass index (BMI) [Ratio] 32.6 kg/m2 Dwayne Stephens MD Work Phone: 6(189)279-592392 [place] [address] 11-30-2024 15:25-0400 Body weight 89.08 kg Dwayne Stephens MD Work Phone: 8(078)367-519492 [place] [address] 11-04-2024 14:43-0400 Body height 165.1 cm Dwayne Stephens MD Work Phone: 9(032)317-619992 [place] [address] 11-04-2024 14:43-0400 Body mass index (BMI) [Ratio] 32.8 kg/m2 Dwayne Stephens MD Work Phone: 8(571)798-778292 [place] [address] 11-04-2024 14:43-0400 Body weight 89.52 kg Dwayne Stephens MD Work Phone: 6(051)713-336992 [place] [address] 10-23-2024 17:18-0400 Body temperature 97.6 [degF] Dwayne Stephens MD Work Phone: 5(776)966-518692 [place] [address] 10-23-2024 17:18-0400 Diastolic blood pressure 86 mm[Hg] Dwayne Stephens MD Work Phone: 4(321)226-881392 [place] [address] 10-23-2024 17:18-0400 Heart rate 74 /min Dwayne Stephens MD Work Phone: 7(114)943-023492 [place] [address] 10-23-2024 17:18-0400 Respiratory rate 16 /min Dwayne Stephens MD Work Phone: 4(194)427-954592 [place] [address] 10-23-2024 17:18-0400 SaO2% (BldA) [Mass fraction] 99 % Dwayne Stephens MD Work Phone: [facility] 10-23-2024 17:18-0400 Systolic blood pressure 122 mm[Hg] Dwayne Stephens MD Work Phone: [facility] 10-23-2024 11:36-0400 Body mass index (BMI) [Ratio] 31.5 kg/m2 Dwayne Stephens MD Work Phone: [facility] 10-23-2024 11:36-0400 Body weight 86 kg Dwayne Stephens MD Work Phone: [facility] 10-01-2024 21:25-0400 Body mass index (BMI) [Ratio] 33.5 kg/m2 Dwayne Stephens MD Work Phone: [facility] 10-01-2024 21:25-0400 Body weight 91.5 kg Dwayne Stephens MD Work Phone: [facility] 10-01-2024 21:23-0400 Body height 165.1 cm Dwayne Stephens MD Work Phone: [facility] 10-01-2024 21:23-0400 Body temperature 97.8 [degF] Dwayne Stephens MD Work Phone: [facility] 10-01-2024 21:23-0400 Diastolic blood pressure 93 mm[Hg] Dwayne Stephens MD Work Phone: [facility] 10-01-2024 21:23-0400 Heart rate 86 /min Dwayne Stephens MD Work Phone: [facility] 10-01-2024 21:23-0400 Respiratory rate 16 /min Dwayne Stephens MD Work Phone: [facility] 10-01-2024 21:23-0400 SaO2% (BldA) [Mass fraction] 100 % Dwayne Stephens MD Work Phone: [facility] 10-01-2024 21:23-0400 Systolic blood pressure 153 mm[Hg] Dwayne Stephens MD Work Phone: [facility] 09-24-2024 23:39-0400 Diastolic blood pressure 81 mm[Hg] Dwayne Stephens MD Work Phone: [facility] 09-24-2024 23:39-0400 Heart rate 86 /min Dwayne Stephens MD Work Phone: [facility] 09-24-2024 23:39-0400 Respiratory rate 18 /min Dwayne Stephens MD Work Phone: [facility] 09-24-2024 23:39-0400 SaO2% (BldA) [Mass fraction] 97 % Dwayne Stephens MD Work Phone: [facility] 09-24-2024 23:39-0400 Systolic blood pressure 132 mm[Hg] Dwayne Stephens MD Work Phone: [facility] 09-24-2024 21:39-0400 Body height 165.1 cm Dwayne Stephens MD Work Phone: [facility] 09-24-2024 21:39-0400 Body mass index (BMI) [Ratio] 32.8 kg/m2 Dwayne Stephens MD Work Phone: [facility] 09-24-2024 21:39-0400 Body temperature 97.9 [degF] Dwayne Stephens MD Work Phone: [facility] 09-24-2024 21:39-0400 Body weight 89.35 kg Dwayne Stephens MD Work Phone: [facility] 09-04-2024 16:22-0500 Body temperature 98 [degF] Dwayne Stephens MD Work Phone: [facility] 09-04-2024 16:22-0500 Diastolic blood pressure 89 mm[Hg] Dwayne Stephens MD Work Phone: [facility] 09-04-2024 16:22-0500 Heart rate 78 /min Dwayne Stephens MD Work Phone: [facility] 09-04-2024 16:22-0500 Respiratory rate 16 /min Dwayne Stephens MD Work Phone: [facility] 09-04-2024 16:22-0500 SaO2% (BldA) [Mass fraction] 99 % Dwayne Stephens MD Work Phone: [facility] 09-04-2024 16:22-0500 Systolic blood pressure 128 mm[Hg] Dwayne Stephens MD Work Phone: [facility] 09-04-2024 14:41-0500 Body height 165.1 cm Dwayne Stephens MD Work Phone: [facility] 09-04-2024 14:41-0500 Body mass index (BMI) [Ratio] 32.1 kg/m2 Dwayne Stephens MD Work Phone: [facility] 09-04-2024 14:41-0500 Body weight 87.54 kg Dwayne Stephens MD Work Phone: [facility] 08-11-2024 19:32-0500 Diastolic blood pressure 86 mm[Hg] Dwayne Stephens MD Work Phone: [facility] 08-11-2024 19:32-0500 Heart rate 84 /min Dwayne Stephens MD Work Phone: [facility] 08-11-2024 19:32-0500 Respiratory rate 16 /min Dwayne Stephens MD Work Phone: [facility] 08-11-2024 19:32-0500 SaO2% (BldA) [Mass fraction] 98 % Dwayne Stephens MD Work Phone: [facility] 08-11-2024 19:32-0500 Systolic blood pressure 155 mm[Hg] Dwayne Stephens MD Work Phone: [facility] 08-11-2024 17:33-0500 Body mass index (BMI) [Ratio] 31.7 kg/m2 Dwayne Stephens MD Work Phone: [facility] 08-11-2024 17:33-0500 Body temperature 97 [degF] Dwayne Stephens MD Work Phone: [facility] 08-11-2024 17:33-0500 Body weight 86.54 kg Dwayne Stephens MD Work Phone: [facility] 07-30-2024 21:00-0500 Diastolic blood pressure 66 mm[Hg] Dwayne Stephens MD Work Phone: [facility] 07-30-2024 21:00-0500 SaO2% (BldA) [Mass fraction] 93 % Dwayne Stephens MD Work Phone: [facility] 07-30-2024 21:00-0500 Systolic blood pressure 113 mm[Hg] Dwayne Stephens MD Work Phone: [facility] 07-30-2024 17:54-0500 Heart rate 63 /min Dwayne Stephens MD Work Phone: [facility] 07-30-2024 17:54-0500 Respiratory rate 18 /min Dwayne Stephens MD Work Phone: [facility] 07-30-2024 15:29-0500 Body temperature 97.3 [degF] Dwayne Stephens MD Work Phone: [facility] 07-30-2024 15:27-0500 Body mass index (BMI) [Ratio] 27.9 kg/m2 Dwayne Stephens MD Work Phone: [facility] 07-30-2024 15:27-0500 Body weight 76.2 kg Dwayne Stephens MD Work Phone: [facility] 07-18-2024 14:26-0500 Body mass index (BMI) [Ratio] 32.43 kg/m2 Arnulfo Sanchez APRN.SOUND RECORDIST Work Phone: [facility] 07-18-2024 14:26-0500 Body temperature 97.59 [degF] Arnulfo Sanchez APRN.SOUND RECORDIST Work Phone: [facility] 07-18-2024 14:26-0500 Body weight 85.7 kg Arnulfo Sanchez APRN.SOUND RECORDIST Work Phone: [facility] 07-18-2024 14:26-0500 Diastolic blood pressure 90 mm[Hg] Arnulfo Sanchez APRN.SOUND RECORDIST Work Phone: [facility] 07-18-2024 14:26-0500 Heart rate 63 /min Arnulfo Sanchez APRN.SOUND RECORDIST Work Phone: [facility] 07-18-2024 14:26-0500 Respiratory rate 18 /min Arnulfo Sanchez APRN.SOUND RECORDIST Work Phone: [facility] 07-18-2024 14:26-0500 SaO2% (BldA) [Mass fraction] 98 % Arnulfo Sanchez APRN.SOUND RECORDIST Work Phone: [facility] 07-18-2024 14:26-0500 Systolic blood pressure 139 mm[Hg] Arnulfo Sanchez APRN.SOUND RECORDIST Work Phone: [facility] 06-28-2024 14:35-0500 Body temperature 98.3 [degF] Dwayne Stephens MD Work Phone: [facility] 06-28-2024 14:35-0500 Diastolic blood pressure 66 mm[Hg] Dwayne Stephens MD Work Phone: [facility] 06-28-2024 14:35-0500 Heart rate 77 /min Dwayne Stephens MD Work Phone: [facility] 06-28-2024 14:35-0500 Respiratory rate 18 /min Dwayne Stephens MD Work Phone: [facility] 06-28-2024 14:35-0500 SaO2% (BldA) [Mass fraction] 95 % Dwayne Stephens MD Work Phone: [facility] 06-28-2024 14:35-0500 Systolic blood pressure 133 mm[Hg] Dwayne Stephens MD Work Phone: [facility] 06-28-2024 02:41-0500 Body mass index (BMI) [Ratio] 29.7 kg/m2 Dwayne Stephens MD Work Phone: [facility] 06-28-2024 02:41-0500 Body weight 80.99 kg Dwayne Stephens MD Work Phone: [facility] 06-19-2024 15:00-0500 Body temperature 97 [degF] Dwayne Stephens MD Work Phone: [facility] 06-19-2024 15:00-0500 Diastolic blood pressure 92 mm[Hg] Dwayne Stephens MD Work Phone: [facility] 06-19-2024 15:00-0500 Heart rate 76 /min Dwayne Stephens MD Work Phone: [facility] 06-19-2024 15:00-0500 Respiratory rate 16 /min Dwayne Stephens MD Work Phone: [facility] 06-19-2024 15:00-0500 SaO2% (BldA) [Mass fraction] 97 % Dwayne Stephens MD Work Phone: [facility] 06-19-2024 15:00-0500 Systolic blood pressure 127 mm[Hg] Dwayne Stephens MD Work Phone: [facility] 06-19-2024 12:31-0500 Body mass index (BMI) [Ratio] 29.8 kg/m2 Dwayne Stephens MD Work Phone: [facility] 06-19-2024 12:31-0500 Body weight 81.4 kg Dwayne Stephens MD Work Phone: [facility] 06-09-2024 15:55-0500 Body temperature 98.3 [degF] Dwayne Stephens MD Work Phone: [facility] 06-09-2024 15:55-0500 Diastolic blood pressure 82 mm[Hg] Dwayne Stephens MD Work Phone: [facility] 06-09-2024 15:55-0500 Heart rate 78 /min Dwayne Stephens MD Work Phone: [facility] 06-09-2024 15:55-0500 Respiratory rate 18 /min Dwayne Stephens MD Work Phone: [facility] 06-09-2024 15:55-0500 SaO2% (BldA) [Mass fraction] 97 % Dwayne Stephens MD Work Phone: [facility] 06-09-2024 15:55-0500 Systolic blood pressure 132 mm[Hg] Dawyne Stephens MD Work Phone: [facility] 06-09-2024 10:43-0500 Body mass index (BMI) [Ratio] 30.1 kg/m2 Dwayne Stephens MD Work Phone: [facility] 06-09-2024 10:43-0500 Body weight 82.1 kg Dwayne Stephens MD Work Phone: [facility] 05-09-2024 16:35-0500 Body temperature 97.6 [degF] Dwayne Stephens MD Work Phone: [facility] 05-09-2024 16:35-0500 Diastolic blood pressure 108 mm[Hg] Dwayne Stephens MD Work Phone: [facility] 05-09-2024 16:35-0500 Heart rate 63 /min Dwayne Stephens MD Work Phone: [facility] 05-09-2024 16:35-0500 Respiratory rate 14 /min Dwayne Stephens MD Work Phone: [facility] 05-09-2024 16:35-0500 SaO2% (BldA) [Mass fraction] 98 % Dwayne Stephens MD Work Phone: [facility] 05-09-2024 16:35-0500 Systolic blood pressure 144 mm[Hg] Dwayne Stephens MD Work Phone: [facility] 05-09-2024 14:04-0500 Body mass index (BMI) [Ratio] 30.6 kg/m2 Dwayne Stephens MD Work Phone: [facility] 05-09-2024 14:04-0500 Body weight 83.46 kg Dwayne Stephens MD Work Phone: [facility] 05-08-2024 12:09-0500 Body temperature 97.1 [degF] Dwayne Stephens MD Work Phone: [facility] 05-08-2024 12:09-0500 Diastolic blood pressure 100 mm[Hg] Dwayne Stephens MD Work Phone: 6(709)413-819740 [place] [address] 05-08-2024 12:09-0500 Heart rate 89 /min Dwayne Stephens MD Work Phone: 2(762)698-214640 [place] [address] 05-08-2024 12:09-0500 Respiratory rate 16 /min Dwayne Stephens MD Work Phone: 5(660)257-006240 [place] [address] 05-08-2024 12:09-0500 SaO2% (BldA) [Mass fraction] 96 % Dwayne Stephens MD Work Phone: 1(884)886-602354 [address] 05-08-2024 12:09-0500 Systolic blood pressure 130 mm[Hg] Dwayne Stephens MD Work Phone: [facility] 05-08-2024 09:58-0500 Body mass index (BMI) [Ratio] 30.7 kg/m2 Dwayne Stephens MD Work Phone: 0(658)[phone] [address] 05-08-2024 09:58-0500 Body weight 83.6 kg Dwayne Stephens MD Work Phone: 0(982)238-819954 [address] 05-07-2024 14:49-0500 Diastolic blood pressure 79 mm[Hg] Dwayne Stephens MD Work Phone: [facility] 05-07-2024 14:49-0500 Systolic blood pressure 137 mm[Hg] Dwayne Stephens MD Work Phone: 8(568)512-547640 [place] [address] 05-07-2024 14:43-0500 Body mass index (BMI) [Ratio] 30.7 kg/m2 Dwayne Stephens MD Work Phone: [facility] 05-07-2024 14:43-0500 Body weight 83.91 kg Dwayne Stephens MD Work Phone: 1(909)296-361540 [place] [address] 10-22-2023 13:04-0400 Body mass index (BMI) [Ratio] 30.84 kg/m2 Naif Laguerre MD Work Phone: [facility] 10-22-2023 13:04-0400 Body temperature 97.5 [degF] Naif Laguerre MD Work Phone: [facility] 10-22-2023 13:04-0400 Body weight 81.5 kg Naif Laguerre MD Work Phone: [facility] 10-22-2023 13:04-0400 Diastolic blood pressure 82 mm[Hg] Naif Laguerre MD Work Phone: [facility] 10-22-2023 13:04-0400 Heart rate 82 /min Naif Laguerre MD Work Phone: [facility] 10-22-2023 13:04-0400 Respiratory rate 16 /min Naif Laguerre MD Work Phone: [facility] 10-22-2023 13:04-0400 SaO2% (BldA) [Mass fraction] 98 % Naif Laguerre MD Work Phone: [facility] 10-22-2023 13:04-0400 Systolic blood pressure 148 mm[Hg] Naif Laguerre MD Work Phone: [facility] 10-09-2023 08:36-0400 Body temperature 97.3 [degF] Roland Sainz APRN.SOUND RECORDIST Work Phone: [facility] 10-09-2023 08:36-0400 Body weight 79 kg Roland Chaudhary-Claudio [employer]MI[employer].SOUND RECORDIST Work Phone: [facility] 10-09-2023 08:36-0400 Diastolic blood pressure 88 mm[Hg] Roland Deleonler-Claudio [employer]MI[employer]ERO[employer].SOUND RECORDIST Work Phone: [facility] 10-09-2023 08:36-0400 Heart rate 60 /min Roland Chaudhary-Claudio CHEMI[employer]ERO[employer].SOUND RECORDIST Work Phone: [facility] 10-09-2023 08:36-0400 Respiratory rate 18 /min Roland Praisler-Wood CHEMI[employer]ERO[employer].SOUND RECORDIST Work Phone: [facility] 10-09-2023 08:36-0400 SaO2% (BldA) [Mass fraction] 97 % Roland Praisler-Wood CHEMI[employer]ERO[employer].SOUND RECORDIST Work Phone: [facility] 10-09-2023 08:36-0400 Systolic blood pressure 128 mm[Hg] Roland Praisler-Wood [employer]MI[employer].SOUND RECORDIST Work Phone: [facility] 09-22-2023 08:26-0400 Body temperature 97 [degF] Justyn Pendlebury CHEMI[employer]ERO[employer].SOUND RECORDIST Work Phone: [facility] 09-22-2023 08:26-0400 Body weight 78.3 kg Justynkary Vergaraleezra CHEMI[employer]EROIDS.SOUND RECORDIST Work Phone: [facility] 09-22-2023 08:26-0400 Diastolic blood pressure 90 mm[Hg] Justyn Pendlebury CHEMI[employer]ERO[employer].SOUND RECORDIST Work Phone: [facility] 09-22-2023 08:26-0400 Heart rate 84 /min Justyn Pendlebury CHEMI[employer]ERO[employer].SOUND RECORDIST Work Phone: [facility] 09-22-2023 08:26-0400 Respiratory rate 21 /min Justyn Pendlebury CHEMI[employer]ERO[employer].SOUND RECORDIST Work Phone: [facility] 09-22-2023 08:26-0400 SaO2% (BldA) [Mass fraction] 99 % Jsutyn Pendlebury CHEMI[employer]EROIDS.SOUND RECORDIST Work Phone: [facility] 09-22-2023 08:26-0400 Systolic blood pressure 122 mm[Hg] Justyn Pendlebury CHEMI[employer]EROIDS.SOUND RECORDIST Work Phone: [facility] 08-06-2023 14:34-0500 Body mass index (BMI) [Ratio] 29.74 kg/m2 Lul Chin CHEMI[employer]-SOUND RECORDIST Work Phone: [facility] 08-06-2023 14:34-0500 Body weight 78.6 kg Lul steinberg [employer]MI[employer]-SOUND RECORDIST Work Phone: [facility] 08-06-2023 14:34-0500 Diastolic blood pressure 90 mm[Hg] uLl steinberg [employer] CHEMI[employer]ERO[employer]-SOUND RECORDIST Work Phone: [facility] 08-06-2023 14:34-0500 Heart rate 66 /min Lul steinberg [employer] CHEMI[employer]ERO[employer]-SOUND RECORDIST Work Phone: [facility] 08-06-2023 14:34-0500 SaO2% (BldA) [Mass fraction] 94 % Lul steinberg [employer] CHEMI[employer]ERO[employer]-SOUND RECORDIST Work Phone: [facility] 08-06-2023 14:34-0500 Systolic blood pressure 162 mm[Hg] Lul steinberg [employer] CHEMI[employer]ERO[employer]-SOUND RECORDIST Work Phone: [facility] 07-03-2023 15:03-0500 Body height 162.6 cm Blayne Weeks MD Work Phone: [facility] 07-03-2023 15:03-0500 Body mass index (BMI) [Ratio] 29.35 kg/m2 Blayne Weeks MD Work Phone: [facility] 07-03-2023 15:03-0500 Body temperature 97.11 [degF] Blayne Weeks MD Work Phone: [facility] 07-03-2023 15:03-0500 Body weight 77.56 kg Blayne Weeks MD Work Phone: [facility] 07-03-2023 15:03-0500 Diastolic blood pressure 80 mm[Hg] Blayne Weeks MD Work Phone: [facility] 07-03-2023 15:03-0500 Heart rate 106 /min Blayne Weeks MD Work Phone: [facility] 07-03-2023 15:03-0500 SaO2% (BldA) [Mass fraction] 97 % Blayne Weeks MD Work Phone: [facility] 07-03-2023 15:03-0500 Systolic blood pressure 130 mm[Hg] Blayne Weeks MD Work Phone: [facility] 05-28-2023 17:15-0500 Heart rate 73 /min Main Reed MD Work Phone: [facility] 05-28-2023 17:15-0500 SaO2% (BldA) [Mass fraction] 95 % Main Reed MD Work Phone: [facility] 05-28-2023 17:00-0500 Diastolic blood pressure 90 mm[Hg] Main Reed MD Work Phone: [facility] 05-28-2023 17:00-0500 Respiratory rate 20 /min Main Reed MD Work Phone: [facility] 05-28-2023 17:00-0500 Systolic blood pressure 143 mm[Hg] Main Reed MD Work Phone: [facility] 05-28-2023 14:01-0500 Body temperature 97.11 [degF] Main Reed MD Work Phone: [facility] 05-28-2023 10:40-0500 Body height 162.6 cm Main Reed MD Work Phone: [facility] 05-28-2023 10:40-0500 Body mass index (BMI) [Ratio] 27.81 kg/m2 Main Reed MD Work Phone: [facility] 05-28-2023 10:40-0500 Body weight 73.48 kg Main Reed MD Work Phone: [facility] 05-14-2023 19:56-0500 Diastolic blood pressure 76 mm[Hg] Verona Cook MD Work Phone: [facility] 05-14-2023 19:56-0500 Heart rate 81 /min Verona Cook MD Work Phone: [facility] 05-14-2023 19:56-0500 SaO2% (BldA) [Mass fraction] 98 % Verona Cook MD Work Phone: [facility] 05-14-2023 19:56-0500 Systolic blood pressure 168 mm[Hg] Verona Cook MD Work Phone: [facility] 05-14-2023 19:28-0500 Respiratory rate 16 /min Verona Cook MD Work Phone: [facility] 05-14-2023 16:11-0500 Body height 162.6 cm Verona Cook MD Work Phone: [facility] 05-14-2023 16:11-0500 Body mass index (BMI) [Ratio] 27.81 kg/m2 Verona Cook MD Work Phone: [facility] 05-14-2023 16:11-0500 Body weight 73.48 kg Verona Cook MD Work Phone: [facility] 04-05-2023 15:07-0400 Body height 162.6 cm Janny Bai MD Work Phone: [facility] 04-05-2023 15:07-0400 Body mass index (BMI) [Ratio] 27.64 kg/m2 Janny Bai MD Work Phone: [facility] 04-05-2023 15:07-0400 Body weight 73.03 kg Janny Bai MD Work Phone: [facility] 04-05-2023 15:07-0400 Diastolic blood pressure 96 mm[Hg] Janny Bai MD Work Phone: [facility] 04-05-2023 15:07-0400 Heart rate 73 /min Janny Bai MD Work Phone: [facility] 04-05-2023 15:07-0400 Systolic blood pressure 186 mm[Hg] Janny Bai MD Work Phone: [facility] 03-20-2023 14:46-0400 Body height 163.8 cm Blayne Weeks MD Work Phone: [facility] 03-20-2023 14:46-0400 Body mass index (BMI) [Ratio] 27.55 kg/m2 Blayne Weeks MD Work Phone: [facility] 03-20-2023 14:46-0400 Body temperature 96.91 [degF] Blayne Weeks MD Work Phone: [facility] 03-20-2023 14:46-0400 Body weight 73.94 kg Blayne Weeks MD Work Phone: [facility] 03-20-2023 14:46-0400 Diastolic blood pressure 74 mm[Hg] Blayne Weeks MD Work Phone: [facility] 03-20-2023 14:46-0400 Heart rate 60 /min Blayne Weeks MD Work Phone: [facility] 03-20-2023 14:46-0400 SaO2% (BldA) [Mass fraction] 97 % Blayne Weeks MD Work Phone: [facility] 03-20-2023 14:46-0400 Systolic blood pressure 126 mm[Hg] Blayne Weeks MD Work Phone: [facility] 03-14-2023 11:59-0400 Body temperature 97.16 [degF] Haitham Kousa Other Phone: [facility] 03-14-2023 11:59-0400 Diastolic blood pressure 104 mm[Hg] Haitham Kousa Other Phone: [facility] 03-14-2023 11:59-0400 Heart rate 56 /min Haitham Kousa Other Phone: [facility] 03-14-2023 11:59-0400 Respiratory rate 18 /min Haitham Kousa Other Phone: [facility] 03-14-2023 11:59-0400 SaO2% (BldA) [Mass fraction] 96 % Kimberly Cason Other Phone: [facility] 03-14-2023 11:59-0400 Systolic blood pressure 162 mm[Hg] Kimberly Cason Other Phone: [facility] 08-23-2022 09:30-0500 Body height 163.83 cm ROSEMADELYN JEAN Other [facility] [employer] Other 08-23-2022 09:30-0500 Body mass index (BMI) [Ratio] 29.91 kg/m2 ROSE TED Other [facility] [employer] Other 08-23-2022 09:30-0500 Body temperature 96.6 [degF] ROSEMADELYN JEAN Other [facility] [employer] Other 08-23-2022 09:30-0500 Body weight 80.29 kg ROSE TED Other [facility] [employer] Other 08-23-2022 09:30-0500 Diastolic blood pressure 100 mm[Hg] ROSE TED Other [facility] [employer] Other 08-23-2022 09:30-0500 Heart rate 76 /min ROSE RAFTERY Other [facility] [employer] Other 08-23-2022 09:30-0500 Respiratory rate 18 /min ROSE RAFTERY Other [facility] [employer] Other 08-23-2022 09:30-0500 Systolic blood pressure 142 mm[Hg] ROSE RAFTERY Other [facility] [employer] Other 04-05-2022 12:00-0400 Body height 163.83 cm AIDAN SHAH Other [facility] [employer] Other 04-05-2022 12:00-0400 Body mass index (BMI) [Ratio] 32.44 kg/m2 AIDAN SHAH Other [facility] [employer] Other 04-05-2022 12:00-0400 Body temperature 98 [degF] AIDAN SHAH Other [facility] [employer] Other 04-05-2022 12:00-0400 Body weight 87.09 kg AIDAN SHAH Other [facility] [employer] Other 04-05-2022 12:00-0400 Diastolic blood pressure 106 mm[Hg] AIDAN LÓPEZUS Other [facility] [employer] Other 04-05-2022 12:00-0400 Heart rate 74 /min AIDAN SHAH Other [facility] [employer] Other 04-05-2022 12:00-0400 Respiratory rate 18 /min AIDAN SHAH Other [facility] [employer] Other 04-05-2022 12:00-0400 Systolic blood pressure 192 mm[Hg] AIDAN SCHMITZFIUS Other [facility] [employer] Other 03-21-2022 12:00-0400 Body height 163.83 cm AIDAN LÓPEZUS Other [facility] [employer] Other 03-21-2022 12:00-0400 Body mass index (BMI) [Ratio] 27.88 kg/m2 AIDAN SHAH Other [facility] [employer] Other 03-21-2022 12:00-0400 Body temperature 98 [degF] AIDAN SHAH Other [facility] [employer] Other 03-21-2022 12:00-0400 Body weight 74.84 kg AIDAN SHAH Other [facility] [employer] Other 03-21-2022 12:00-0400 Diastolic blood pressure 94 mm[Hg] AIDAN SHAH Other [facility] [employer] Other 03-21-2022 12:00-0400 Heart rate 67 /min AIDAN SHAH Other [facility] [employer] Other 03-21-2022 12:00-0400 Respiratory rate 21 /min AIDAN SHAH Other [facility] [employer] Other 03-21-2022 12:00-0400 Systolic blood pressure 164 mm[Hg] AIDAN SHAH Other [facility] [employer] Other 03-15-2022 23:12-0400 Body height 172.72 cm DO Christopher Longinow DO [employer] 03-15-2022 23:12-0400 Body mass index (BMI) [Ratio] 29.4 kg/m2 DO Christopher Longinow DO [employer] 03-15-2022 23:12-0400 Body weight 87.9 kg DO Christopher Longinow DO [employer] 02-28-2022 13:30-0400 Body height 163.83 cm ELIZABETH LOWE Other [facility] [employer] Other 02-28-2022 13:30-0400 Body mass index (BMI) [Ratio] 27.88 kg/m2 ELIZABETH LOWE Other [facility] [employer] Other 02-28-2022 13:30-0400 Body temperature 97 [degF] ELIZABETH LOWE Other [facility] [employer] Other 02-28-2022 13:30-0400 Body weight 74.84 kg ELIZABETH LOWE Other [facility] [employer] Other 02-28-2022 13:30-0400 Diastolic blood pressure 100 mm[Hg] ELIZABETH LOWE Other [facility] [employer] Other 02-28-2022 13:30-0400 Systolic blood pressure 178 mm[Hg] ELIZABETH LOWE Other [facility] [employer] Other 10-28-2021 12:11-0400 Body height 162.56 cm H J Kousa Work Phone: [facility] [address] DO Work Phone: 10-28-2021 12:11-0400 Body mass index (BMI) [Ratio] 33.82 kg/m2 H J Kousa Work Phone: [facility] 103 DO Work Phone: 10-28-2021 12:11-0400 Body surface area Derived from formula 1.94 m2 H J Kousa Work Phone: [facility] 103 DO Work Phone: 10-28-2021 12:11-0400 Body temperature 97.6 [degF] H J Kousa Work Phone: [facility] 103 DO Work Phone: 10-28-2021 12:11-0400 Body weight 89.36 kg H J Kousa Work Phone: [facility] 103 DO Work Phone: 10-17-2021 09:42-0400 Body height 162.56 cm H J Kousa Work Phone: [facility] Work Phone: 10-17-2021 09:42-0400 Body mass index (BMI) [Ratio] 33.99 kg/m2 H J Kousa Work Phone: [facility] Work Phone: 10-17-2021 09:42-0400 Body surface area Derived from formula 1.95 m2 H J Kousa Work Phone: [facility] Work Phone: 10-17-2021 08:13-0400 Body height 10.16 cm H J Kousa Work Phone: [facility] Work Phone: 10-17-2021 08:13-0400 Body mass index (BMI) [Ratio] 8700.65 kg/m2 H J Kousa Work Phone: [facility] Work Phone: 10-17-2021 08:13-0400 Body surface area Derived from formula 0.26 m2 H J Kousa Work Phone: [facility] [facility] Work Phone: 10-17-2021 08:13-0400 Body weight 89.81 kg H J Kousa Work Phone: [facility] [facility] Work Phone: 10-17-2021 08:13-0400 Diastolic blood pressure 84 mm[Hg] H J Kousa Work Phone: [facility] [facility] Work Phone: 10-17-2021 08:13-0400 Heart rate 84 /min H J Kousa Work Phone: [facility] [facility] Work Phone: 10-17-2021 08:13-0400 Respiratory rate 18 /min H J Kousa Work Phone: [facility] [facility] Work Phone: 10-17-2021 08:13-0400 SaO2% (BldA) [Mass fraction] 98 % H J Kousa Work Phone: [facility] [facility] Work Phone: 10-17-2021 08:13-0400 Systolic blood pressure 148 mm[Hg] H J Kousa Work Phone: [facility] [facility] Work Phone: 11-25-2020 11:01-0400 Diastolic blood pressure 96 mm[Hg] H J Kousa Work Phone: [facility]Gtohhhndfl-Bucz [facility] Work Phone: 11-25-2020 11:01-0400 Systolic blood pressure 158 mm[Hg] H J Kousa Work Phone: UT[facility]Sbuelymlug-Bnpz [facility] Work Phone: 11-25-2020 10:53-0400 Body height 162.56 cm H J Kousa Work Phone: ME-Diuxjlqnlv-Uyfa [facility] Work Phone: 11-25-2020 10:53-0400 Body mass index (BMI) [Ratio] 28.32 kg/m2 H J Kousa Work Phone: EH-Tavvovzcph-Ymry [facility] Work Phone: 11-25-2020 10:53-0400 Body surface area Derived from formula 1.8 m2 H J Kousa Work Phone: MJ-Dhahllvtba-Ifgz [facility] Work Phone: 11-25-2020 10:53-0400 Body weight 74.84 kg H J Kousa Work Phone: MR-Vvjouybanr-Vutc ord [facility] Work Phone: 11-25-2020 10:53-0400 Diastolic blood pressure 99 mm[Hg] H J Kousa Work Phone: MY-Lbgoemghay-Wqsc [facility] Work Phone: 11-25-2020 10:53-0400 Heart rate 84 /min H J Kousa Work Phone: ZN-Mccirwbtft-Xurq [facility] Work Phone: 11-25-2020 10:53-0400 SaO2% (BldA) [Mass fraction] 95 % H J Kousa Work Phone: XW-Gduliewlyy-Parv [facility] Work Phone: 11-25-2020 10:53-0400 Systolic blood pressure 154 mm[Hg] H J Kousa Work Phone: EY-Lixgyukdaf-Nqhm ord [facility] Work Phone: Encounters Encounter Date Encounter Type Care Provider Facility Start: 12-02-2024 End: 12-02-2024 ambulatory Dwayne Stephens Facility:[facility] Start: 11-30-2024 End: 11-30-2024 Emergency department patient visit Dwayne Stephens MD Work Phone: -Emergency Department Work Phone: Start: 11-13-2024 End: 11-13-2024 Patient encounter procedure Uma SAVAGE -[facility] Work Phone: Start: 11-13-2024 End: 11-13-2024 ambulatory Dwayne Stephens MD Work Phone: [facility] Work Phone: Start: 11-04-2024 End: 11-04-2024 Patient encounter procedure Mirian SAVAGE -[facility] Work Phone: Start: 11-04-2024 End: 11-04-2024 ambulatory Chalon [facility] Facility:[facility] Start: 10-23-2024 End: 10-23-2024 Emergency department patient visit Dr. Neeta Gonzales DO -Emergency Department Work Phone: Start: 10-17-2024 Non-patient / Non-visit Dr. Sumanth ramírez MD -[facility] Start: 10-17-2024 End: 10-17-2024 ambulatory Dwayne Stephens MD Work Phone: [facility] Work Phone: Start: 10-17-2024 End: 10-17-[address] Dwayne Stephens MD -Cardiovascular Services Work Phone: Start: 10-17-2024 End: 10-17-2024 ambulatory [facility] Facility:[facility] Start: 10-16-2024 End: 10-16-[address] Dwayne Stephens MD -[facility] Start: 10-16-2024 End: 10-16-2024 ambulatory Dwayne Kat Facility:[facility] Start: 10-01-2024 End: 10-01-2024 Emergency department patient visit Dwayne Stephens MD Work Phone: -Emergency Department Work Phone: Start: 09-25-2024 Non-patient / Non-visit Dr. Sumanth ramírez MD -[facility] Start: 09-25-2024 End: 09-25-2024 ambulatory Dwayne Stephens MD Work Phone: [facility] Work Phone: Start: 09-25-2024 End: 09-25-[address] Dwayne Stephens MD -Cardiovascular Services Work Phone: Start: 09-25-2024 End: 09-25-2024 ambulatory Dwyane Stephens Facility:[facility] Start: 09-24-2024 End: 09-25-2024 Emergency department patient visit Dwayne Stephens MD Work Phone: -Emergency Department Work Phone: Start: 09-04-2024 End: 09-04-2024 Emergency department patient visit Dwayne Stephens MD Work Phone: -Emergency Department Work Phone: Start: 08-29-2024 End: 08-29-2024 ambulatory Dwayne Stephens MD Work Phone: [facility] Work Phone: Start: 08-29-2024 End: 08-29-[address] Dwayne Stephens MD -Radiology, [place] Work Phone: Start: 08-29-2024 End: 08-29-2024 ambulatory Dwayne Kat Facility:[facility] Start: 08-11-2024 End: 08-11-2024 Emergency department patient visit Dr. Haroon Vieira DO -Emergency Department Work Phone: Start: 08-11-2024 End: 08-11-2024 Patient encounter procedure Rachel MEDINA -Ultrasound, [facility] Work Phone: Start: 08-11-2024 End: 08-11-2024 ambulatory Dwayne Stephens Facility:[facility] Start: 08-04-2024 End: 08-04-[address] Dwayne Stephens MD -Radiology, [place] Work Phone: Start: 08-04-2024 End: 08-04-2024 [facility] Start: 07-30-2024 End: 07-30-2024 Emergency department patient visit Dr. Sumanth Coyne DO -Emergency Department Work Phone: Start: 07-18-2024 End: 07-18-2024 ambulatory DWAYNE KAT Facility:[facility] Start: 07-18-2024 End: 07-18-2024 Patient encounter procedure Arnulfo Sanchez APRN.SOUND RECORDIST Work Phone: [facility] Comment on above: Acute otitis media, right (Primary Dx) Start: 07-08-2024 End: 07-08-[address] Anyi Disla MD -Radiology, [place] Work Phone: Start: 07-08-2024 End: 07-08-2024 ambulatory Chalon Kat Facility:[facility] Start: 06-28-2024 End: 06-28-2024 ambulatory Chalon Kat Facility:[facility] Start: 06-28-2024 End: 06-28-2024 Evaluation and management of inpatient Dr. Anyi Disla MD -Medical Surgical 3 Work Phone: Start: 06-19-2024 End: 06-19-2024 Admission to same day surgery center Dr. Anyi Disla MD -Surgical Day Care Start: 06-19-2024 End: 06-19-2024 ambulatory Chalon Kat Facility:[facility] Start: 06-07-2024 End: 06-09-2024 ambulatory Chalon Kat Facility:[facility] Start: 06-07-2024 End: 06-09-2024 Evaluation and management of inpatient Dr. Anyi Disla MD -Medical Surgical 3 Work Phone: Start: 06-03-2024 End: 06-03-2024 Patient encounter procedure Rachel MEDINA -Ultrasound, [facility] Work Phone: Start: 06-03-2024 End: 06-03-2024 ambulatory Chalon Kat Facility:[facility] Start: 05-09-2024 End: 05-09-2024 Emergency department patient visit Dr. Albert Sykes DO -Emergency Department Work Phone: Start: 05-08-2024 ambulatory Chalon Kat Facility:B MD Start: 05-08-2024 Non-patient / Non-visit Jose Gomez nd DO -[facility] Start: 05-08-2024 End: 05-08-2024 Admission to same day surgery center Jose Hassan DO -Endoscopy Work Phone: Start: 05-08-2024 End: 05-08-2024 ambulatory Chalon Kat Facility:[facility] Start: 05-07-2024 End: 05-07-2024 Patient encounter procedure Rachel MEDINA -[facility] Work Phone: Start: 05-07-2024 End: 05-07-2024 ambulatory Chalon Kat Facility:[facility] Start: 04-23-2024 End: 04-23-2024 ambulatory Chalon Kat Facility:[facility] Start: 04-17-2024 End: 04-17-2024 ambulatory Chalon Kat Facility:[facility] Start: 04-07-2024 End: 04-07-2024 ambulatory Chalon Kat Facility:[facility] Start: 04-03-2024 ambulatory Chalon Kat Facility:[facility] Start: 03-24-2024 End: 03-24-2024 Emergency department patient visit Chalon Kat Facility:[facility] Start: 03-05-2024 Encounter for genera l adult medical examination without abnormal findings Chalon Kat [facility] Start: 02-22-2024 End: 02-22-2024 ambulatory Chalon Kat Facility:[facility] Start: 02-18-2024 End: 02-18-2024 ambulatory Chalon Kat Facility:[facility] Start: 01-22-2024 End: 01-22-2024 Emergency department patient visit Chalon Kat Facility:[facility] Start: 01-08-2024 End: 01-08-2024 ambulatory Chalon Kat Facility:[facility] Start: 01-03-2024 End: 01-03-2024 Emergency department patient visit Chalon Kat Facility:[facility] Start: 10-22-2023 End: 10-22-2023 ambulatory CHALON KAT Facility:[facility] Start: 10-22-2023 End: 10-22-2023 Patient encounter procedure Naif Laguerre MD Work Phone: [facility] Comment on above: Acute bilateral low back pain with right-sided sciatica (Primary Dx) Start: 10-09-2023 End: 10-09-2023 ambulatory CHALON KAT Facility:[facility] Start: 10-09-2023 End: 10-09-2023 Patient encounter procedure Roland Sainz [employer].SOUND RECORDIST Work Phone: [facility] Comment on above: URI, acute (Primary Dx); Sore throat Start: 09-29-2023 End: 09-29-2023 ambulatory DWAYNE STEPHENS Facility:[facility] Start: 09-22-2023 Telephone encounter Justyn lund [employer].SOUND RECORDIST Work Phone: [facility] Comment on above: Results Start: 09-22-2023 End: 09-22-2023 Subsequent hospital visit by physician Barb [facility] Work Phone: Radiology Comment on above: Injury of finger of right hand, initial encounter [S69.91XA] Start: 09-22-2023 End: 09-22-2023 ambulatory JUSTYN MALDONADO Facility:[facility] Start: 09-22-2023 End: 09-22-2023 Office outpatient visit 15 minutes Justyn Maldonado [employer].SOUND RECORDIST Work Phone: [facility] Comment on above: Injury of finger of right hand, initial encounter (Primary Dx) Start: 08-31-2023 End: 08-31-2023 Subsequent hospital visit by physician Darby Holter/[facility] Comment on above: Heart palpitations Start: 08-31-2023 End: 08-31-2023 ambulatory LUL CHIN [facility] Start: 08-21-2023 Telephone encounter No Pcp [employer] NOC Comment on above: Follow Up Phone Call (Post Discharge F/U - attempt made. No answer.) Start: 08-16-2023 End: 08-16-2023 ambulatory MYNOR LYNN Facility:[facility] Start: 08-06-2023 End: 08-06-2023 Office outpatient new 45 minutes Lul Chin [employer]-SOUND RECORDIST Work Phone: [facility] Office Building Comment on above: Heart palpitations ( Primary Dx); Essential hypertension Start: 08-06-2023 End: 08-06-2023 ambulatory LUL CHIN [facility] Start: 07-09-2023 End: 07-09-2023 ambulatory [facility] Ambulatory Start: 07-03-2023 End: 07-04-2023 ambulatory [facility] Ambulatory Start: 07-03-2023 End: 07-03-2023 Office outpatient visit 15 minutes Blayne Weeks MD Work Phone: [facility] Comment on above: Other acute pulmonar y embolism without acute cor pulmonale (CMS/HCC) (Primary Dx); Need for pneumococcal vaccine Start: 06-07-2023 ambulatory [facility] Ambulatory Start: 06-07-2023 End: 06-07-2023 Postop follow up visit related to original px Main Reed MD Work Phone: [facility] Office Building Comment on above: Postop check (Primar y Dx) Start: 06-06-2023 End: 06-06-2023 Evaluation and management of inpatient [facility] Pulm Fct 1 Work Phone: [facility] Pulmonary Function Lab Comment on above: History of pulmonary embolism (Primary Dx) Start: 06-01-2023 End: 06-11-2023 Evaluation and management of inpatient ZAINAB CROFT Facility:[facility] Start: 05-28-2023 End: 05-28-2023 ambulatory [facility] Start: 05-28-2023 End: 05-28-2023 Subsequent hospital visit by physician Main Reed MD Work Phone: [facility] [place] Comment on above: Adnexal mass (Primar y Dx); Myofascial pain Start: 05-22-2023 End: 05-22-2023 ambulatory [facility] Ambulatory Start: 05-22-2023 End: 05-22-2023 Patient encounter procedure [facility] [place] [id number] [facility] Comment on above: Urinary incontinence in female (Primary Dx) Start: 05-14-2023 End: 05-14-2023 Emergency department patient visit Verona Cook MD Work Phone: [facility] Emergency Medicine Comment on above: Kidney stone (Primar y Dx); Abdominal pain, unspecified abdominal location Start: 04-27-2023 End: 04-27-2023 ambulatory [facility] Start: 04-24-2023 End: 04-27-2023 Patient encounter procedure Janny Bai MD Work Phone: [facility] Comment on above: Esophageal dysphagia ; Colon cancer screening Start: 04-05-2023 End: 04-05-2023 ambulatory [facility] Ambulatory Start: 04-05-2023 End: 04-05-2023 Office outpatient new 30 minutes Janny Bai MD Work Phone: [facility] Comment on above: Colon cancer screeni ng (Primary Dx); Esophageal dysphagia Start: 03-28-2023 SURGGR, Provider: Main Reed, Status: Pen, Time: 7:30 AM Francisco Cason Work Phone: [facility] Work Phone: Start: 03-26-[address] Main Reed Facilit y:[id number] Start: 03-26-2023 Office outpatient vi sit 40 minutes H Grace Cason Work Phone: [facility]ed[facility]kqq[facility]xg[facility] Work Phone: Start: 03-26-2023 Patient encounter procedure Francisco Cason Work Phone: [facility] Work Phone: Start: 03-26-2023 End: 03-27-2023 ambulatory [facility] Start: 03-26-2023 End: 03-27-2023 Encounter for general adult medical examination without abnormal findings [facility] Start: 03-21-[address] German venegas Elgendy Facility:[id number] Start: 03-20-2023 End: 03-21-2023 ambulatory [facility] Start: 03-20-2023 End: 03-21-2023 Encounter for general adult medical examination without abnormal findings BLAYNE WEEKS [facility] Ambulatory Start: 03-20-2023 End: 03-20-2023 Initial preventive medicine new patient 40-64yrs Blayne Weeks MD Work Phone: [facility] Comment on above: Breast cancer screen ing by mammogram (Primary Dx); Encounter for annual physical exam; Colon cancer screening; Arthritis; Moderate asthma without complication, unspecified whether persistent Start: 03-20-2023 End: 03-20-2023 Patient encounter procedure Blayne Weeks MD Work Phone: [facility] Work Phone: Start: 03-09-2023 End: 03-14-2023 Evaluation and management of inpatient Dr. Konrad Delgado Facility: Start: 03-08-2023 End: 03-14-2023 Evaluation and management of inpatient Konrad Delgado Rabun Obs 2 Rm [address] Start: 08-23-2022 End: 08-23-2022 ambulatory ROSE JEAN Other [facility] [email or web address] Other Start: 08-23-2022 Office outpatient vi sit 25 minutes ROSE JEAN [facility] Start: 04-26-2022 End: 04-26-2022 Patient [...] 04-05-2022 End: 04-05-2022 ambulatory AIDAN SHAH Other [facility] [employer] Other Start: 04-05-2022 Office outpatient vi sit 15 minutes AIDAN SHAH [facility] Start: 04-04-2022 End: 04-04-2022 ambulatory AIDAN LEMONS Other [facility]. Other Start: 04-04-2022 Telephone encounter AIDAN LEMONS [facility] Start: 03-21-2022 End: 03-21-2022 ambulatory [facility] SHAH [facility] Other Start: 03-21-2022 Office outpatient vi sit 15 minutes AIDAN SHAH [facility] Start: 03-15-2022 End: 03-16-2022 ambulatory Faustinobabitaruby Toribio Facility:UNKNOWN Start: 02-28-2022 (TELEVNP) Televisit with IT PROGRAM AUDITOR ELIZABETHLEE LOWE [facility] Start: 02-28-2022 (X-RAY) X-RAY Inhouse ELIZABETH LOWE [facility] Start: 02-28-2022 End: 02-28-2022 Refill Adriana Martinez MD Work Phone: Pulmonary Medicine Comment on above: Refill Request Start: 02-27-2022 Refill Adriana uCrtis Work Phone: Pulmonary Medicine Comment on above: Refill Request Start: 02-21-2022 ambulatory Bárbara Campuzano ams [employer].SOUND RECORDIST Work Phone: Telemedicine Comment on above: Treatment not availa ble (Primary Dx) Start: 10-28-2021 NPV, Provider: Keo Brown, Status: Pen, Time: 11:30 AM H jigl Work Phone: [facility] [phone] DO Work Phone: Start: 10-28-2021 DUALAUDIO, Provider: Lucila Davis, Status: Pen, Time: 11:00 AM H jigl Work Phone: [facility] [phone] DO Work Phone: Start: 10-28-2021 Patient encounter procedure Francisco Cason Work Phone: [facility] 103 DO Work Phone: Start: 10-26-2021 Chart Update Francisco Cason Work Phone: [facility] [phone] DO Work Phone: Start: 10-18-2021 ambulatory Riri Matthew MD Work Phone: Urology Start: 10-17-2021 Office outpatient ne w 45 minutes Francisco Cason Work Phone: [facility] [facility] Work Phone: Start: 10-04-2021 ambulatory Riri Matthew MD Work Phone: Urology Start: 09-29-2021 ambulatory Marin ortiz MD Work Phone: Urology Comment on above: Question regarding U S ABD RT UPPER QUADRANT Start: 09-29-2021 Patient encounter procedure Marin Gutierrez MD Work Phone: Urology Start: 09-28-2021 ambulatory Bárbara Escudero RN [facility] Comment on above: UTI Start: 09-28-2021 Patient encounter procedure Marin Gutierrez MD Work Phone: Urology Start: 09-26-2021 End: 09-26-2021 Patient encounter procedure Marin Gutierrez MD Work Phone: Urology Comment on above: Kidney stones (Prima ry Dx) Start: 09-25-2021 ambulatory Adriana Curtis Work Phone: Pulmonary Medicine Comment on above: Make apt Start: 08-02-2021 ambulatory KIMBERLY CASON Fa cility:UNKNOWN Start: 03-04-2021 End: 03-04-2021 Subsequent hospital visit by physician [facility] Will 1 Radiology Comment on above: Renal calculus, righ t [N20.0] Start: 01-20-2021 ECHO, Provider: CONC ORD ECHOCARDIOGRAM 1,CHCECHO 1, Status: Pen, Time: 8:00 AM Francisco Cason Work Phone: CL-Rggodtigeh-Zfdvezi Work Phone: Start: 01-19-2021 Chart Update Francisco Cason Work Phone: SY-Hzbcerzxrs-Yqruyso Work Phone: Start: 12-09-2020 AUDIT H Grace Cason Work Phone: [facility]Sutnvavyiw[facility]Qgnnefz Work Phone: Start: 11-25-2020 Current tobacco non-user cad cap copd pv dm H Grace Cason Work Phone: LE-Mklqbcikmx-Gjhfuqg [facility] Work Phone: Start: 10-08-2020 End: 10-08-2020 Subsequent hospital visit by physician Xr [facility] Work Phone: Radiology Comment on above: Cough [R05] Start: 04-13-2015 Physical examination ELIZABETH HOOVER Other [facility]. Other DO Faustinoelsa Castrejonasterrhonda DO [facility] Procedures Date Procedure Procedure Detail Performing Clinician Start: 11-30-2024 Plain x-ray of wrist Dwayne Stephens MD Work Phone: Start: 11-04-2024 X-ray of lumbosacral spine Dwayne Curtis Work Phone: Start: 10-23-2024 Urnls dip stick/tablet reagent auto microscopy Dwayne Stephens MD Work Phone: Start: 10-23-2024 Estimated creatinine clearance Dwayne riley MD Work Phone: Start: 10-23-2024 Computed tomography of abdomen and pelvis with intravenous contrast Dwayne Stephens MD Work Phone: Start: 10-16-2024 D-dimer assay, quantitative Dwayne Stephens MD Work Phone: Comment on above: NORMAL D-Dimer level (<0.50) indicates n o DVT or PE. Start: 10-01-2024 Plain X-ray of tibia and fibula Dwayne henderson MD Work Phone: Start: 09-24-2024 Urnls dip stick/tablet reagent auto microscopy Dwayne Stephens MD Work Phone: Start: 09-24-2024 Computed tomography of abdomen and pelvis with intravenous contrast Dwayne Stephens MD Work Phone: Start: 09-24-2024 Estimated creatinine clearance Dwayne riley MD Work Phone: Start: 09-04-2024 Plain chest X-ray Dwayne Stephens MD Work Phone: Start: 09-04-2024 Urnls dip stick/tablet reagent auto microscopy Dwayne Stephens MD Work Phone: Start: 09-04-2024 Estimated creatinine clearance Dwayne riley MD Work Phone: Start: 09-04-2024 CT of abdomen and pelvis without contrast Dwayne Stephens MD Work Phone: Start: 09-04-2024 SARS-CoV-2, Influenza & RSV (PCR) Dwayne Stephens MD Work Phone: Start: 08-29-2024 X-ray of lumbar spine, two or three views Dwayne Stephens MD Work Phone: Start: 08-11-2024 Pelvic echography Dwayne Stephens MD Work Phone: Start: 08-04-2024 X-ray of ankle, three or more views Dwayne Stephens MD Work Phone: Start: 07-30-2024 CT of abdomen and pelvis without contrast Dwayne Stephens MD Work Phone: Start: 07-30-2024 Estimated creatinine clearance Dwayne riley MD Work Phone: Start: 07-30-2024 Measurement of renal function Dwayne landers MD Work Phone: Comment on above: GFR Calc Start: 07-30-2024 Urnls dip stick/tablet reagent auto microscopy Dwayne Stephens MD Work Phone: Start: 07-08-2024 Plain X-ray abdomen Dwayne Stephens MD Work Phone: Start: 06-27-2024 CT of abdomen and pelvis without contrast Dwayne Stephens MD Work Phone: Start: 06-27-2024 Urine culture Dwayne Stephens MD Work Phone: Start: 06-09-2024 Fluoroscopic guidance Dwayne Stephens MD Work Phone: Start: 06-07-2024 CT of abdomen and pelvis without contrast Dwayen Stephens MD Work Phone: Start: 06-07-2024 Urine culture Dwayne Stephens MD Work Phone: Start: 06-03-2024 Pelvic echography Dwayne Stephens MD Work Phone: Start: 05-09-2024 CT angiography of chest with contrast Dwayne Stephens MD Work Phone: Start: 10-09-2023 STREP A MOLECULAR (POC) [facility] Provider Start: 09-22-2023 Radex fingr minimum 2 views Justyn bassett [employer].SOUND RECORDIST Work Phone: Start: 08-31-2023 HOLTER OR EVENT MEAT TRIMMER LUL MARIE Start: 07-03-2023 PNEUMOCOCCAL CONJUGATE VACCINE 20-VALENT IM BLAYNE WEEKS Start: 06-07-2023 Lipid 1996 panel - Serum or Plasma No Pc p [employer] Start: 06-06-2023 Noninvasive ear/pulse oximetry multiple deter Melinda Coello [employer].SOUND RECORDIST Work Phone: Start: 05-29-2023 ECG 12-LEAD MAIN REED Start: 05-29-2023 Ecg routine ecg w/least 12 lds trcg only w/o i&r Jean Schreiber DO Work Phone: Start: 05-28-2023 TROPONIN SERIES- (INITIAL, 1 HR) MAIN TRAN Start: 05-28-2023 Assay of troponin quantitative Jean maradiaga DO Work Phone: Start: 05-28-2023 PULSE OXIMETRY, CONTINUOUS MAIN NOLEE Start: 05-28-2023 SURGICAL PATHOLOGY EXAM MAIN NOLEE Start: 05-28-2023 PULSE OXIMETRY, CONTINUOUS Jean Schreiber DO Work Phone: Start: 05-28-2023 DISCHARGE PATIENT MAIN NOLEE Start: 05-28-2023 Level iv surg pathology gross&microscopic exam Main Reed MD Work Phone: Start: 05-28-2023 End: 05-28-2023 Oophorectomy partial/total uni/bi Main Reed MD Work Phone: Start: 05-28-2023 FULL CODE MAIN MARYBELLEE Start: 05-28-2023 PLACE IN OUTPATIENT/HOSPITAL AMBULATORY SURGERY MAIN NOLEE Start: 05-22-2023 Urnls dip stick/tablet rgnt non-auto w/o micrscp Melinda Perez MD Work Phone: Start: 05-14-2023 URINALYSIS WITH REFLEX MICROSCOPIC RACHE L DE CAPITE Start: 05-14-2023 CT ABDOMEN PELVIS WO IV CONTRAST LUL DE CAPITE Start: 05-14-2023 INFLUENZA A AND B PCR LUL DE CAPITE Start: 05-14-2023 RSV PCR LUL DE CAPITE Start: 05-14-2023 SARS-COV-2 PCR, SYMPTOMATIC LUL DE CA PITE Start: 05-14-2023 XR CHEST 1 [...] CAPITE Start: 05-14-2023 TROPONIN I, HIGH SENSITIVITY LUL DE C APITE Start: 05-14-2023 ECG 12-LEAD LUL DE CAPITE Start: 05-14-2023 Urnls dip stick/tablet rgnt auto w/o microscopy Mercedes [facility] Work Phone: Start: 05-14-2023 Ct abdomen & pelvis w/o contrast material Mercedes [facility] Work Phone: Start: 05-14-2023 Influenza virus A and B RNA [Identifier] in Unspecified specimen by ANDRY with probe detection Mercedes [facility] Work Phone: Start: 05-14-2023 Respiratory syncytial virus RNA [Presence] in Respiratory specimen by ANDRY with probe detection Mercedes [facility] Work Phone: Start: 05-14-2023 SARS-CoV-2 (COVID-19) RNA [Presence] in Respiratory specimen by ANDRY with probe detection Mercedes [facility] Work Phone: Start: 05-14-2023 Radiologic exam chest single view [facility] Work Phone: Start: 05-14-2023 Comprehensive metabolic panel Mercedes [facility] Work Phone: Start: 05-04-2023 Colonoscopy Janny Bai MD Work Phone: Start: 04-27-2023 Esophagogastroduodenoscopy CHARLIE KOUSA Start: 04-27-2023 Colonoscopy NA KOUSA Start: 03-26-2023 Hemoglobin A1c/Hemoglobin.total in Blood NA KOUSA Start: 03-26-2023 HEPATITIS C ANTIBODY NA KOUSA Start: 03-26-2023 HIV 1/2 ANTIGEN/ANTIBODY SCREEN WIH REFLEX TO CONFIRMATION NA KOUSA Start: 03-26-2023 Lipid panel NA KOUSA Start: 03-26-2023 VITAMIN D 25-HYDROXY,TOTAL NA KOUSA Start: 03-26-2023 Lipid 1996 panel - Serum or Plasma Richi Bai MD Work Phone: Start: 03-11-2023 End: 03-11-2023 EKG impression Shagun Matthews Start: 03-08-2023 End: 03-08-2023 EKG impression Gamagun Matthews Start: 09-26-2021 Urnls dip stick/tablet rgnt auto w/o microscopy Marin Gutierrez MD Work Phone: Start: 03-04-2021 Us retroperitoneal real time w/image complete Marin Gutierrez MD Work Phone: Start: 11-25-2020 Lipid 1996 panel - Serum or Plasma Blayne Weeks MD Work Phone: Start: 10-08-2020 Radiologic exam chest 2 views Adriana beltran MD Work Phone: Start: 11-01-2018 Mammography Blayne Weeks MD Work Phone: Start: 03-01-2017 Completed VAG HYST INCLUDING T/O, on 03/01/2017 10:59 AM DO Yemi Toribio DO Start: 12-25-2016 Microscopic observation [Identifier] in Cervix by Cyto stain Blayne Weeks MD Work Phone: Start: 12-09-2015 Adult depression screening assessment Adriana Martinez MD Work Phone: Start: 04-03-2012 Colonoscopy Bárbara Chan [employer]MI[employer]ERO[employer].SOUND RECORDIST Work Phone: Start: 02-15-2012 Lipid 1996 panel - Serum or Plasma Us 1 Plan of Treatment Date Care Activity Detail Author Start: 05-04-2033 Screening for malignant neoplasm of colon [facility] Start: 03-21-2032 DTaP/Tdap/Td Vaccines (3 - Td or Tdap) DTaP/Tdap/Td Vaccines (3 - Td or Tdap) [facility] Start: 03-21-2032 Urine microalbumin profile DTaP,Tdap,Td Vaccine (3 - Td or Tdap) [facility] Start: 06-07-2028 Lipid panel Lipid Screening [facility] Start: 03-26-2028 Lipid 1996 panel - Serum or Plasma Lipid Screening [facility] Start: 03-26-2028 Lipid panel Lipid Panel [facility] Start: 2026 Zoster Vaccines (1 of 2) Zoster Vaccines (1 of 2) [facility] Start: 08-17-2026 Diabetes Screening Diabetes Screening [facility] Start: 06-06-2026 Diabetes Screening Diabetes Screening [facility] Start: 11-25-2025 Lipid panel Lipid Panel [facility] Start: 12-10-2024 ambulatory Facility:[facility] Start: 11-30-2024 [facility] Start: 11-04-2024 Patient referral [facility] Work Phone: Start: 10-23-2024 Enteric precautions [facility] Start: 10-01-2024 [facility] Start: 09-25-2024 [facility] Start: 09-04-2024 [facility] Start: 08-11-2024 [facility] Start: 08-11-2024 Us pelvic nonobstetric real-time image complete US EXAM PELVIC COMPLETE [facility] Start: 08-11-2024 Us transvaginal TRANSVAGINAL US NON-OB [facility] Start: 07-30-2024 [facility] Start: 06-28-2024 Patient discharge [facility] Start: 06-28-2024 Oxygen therapy [facility] Start: 06-28-2024 Admission procedure [facility] Start: 06-28-2024 Ambulation without limitation [facility] Start: 06-28-2024 Assessment of risk of venous thromboembolism [facility] Start: 06-28-2024 Insertion of catheter into peripheral vein [facility] Start: 06-28-2024 Measuring intake and output [facility] Start: 06-28-2024 Providing care according to standard [facility] Start: 06-28-2024 End: 06-28-2024 [facility] Start: 06-28-2024 Following clinical pathway protocol [facility] Start: 06-28-2024 Hospital admission, emergency, from emergency room, medical nature [facility] Start: 06-19-2024 Patient discharge [facility] Start: 06-19-2024 Anes lithotrp xtrcorp shock wave w/o water bath ANESTH KIDNEY STONE DESTRUCT [facility] Start: 06-19-2024 Lithotripsy xtrcorp shock wave FRAGMENTING OF KIDNEY STONE [facility] Start: 06-09-2024 Patient discharge [facility] Start: 06-07-2024 Oxygen therapy [facility] Start: 06-07-2024 Admission procedure [facility] Start: 06-07-2024 Ambulation without limitation [facility] Start: 06-07-2024 Assessment of risk of venous thromboembolism [facility] Start: 06-07-2024 Catheterization of vein [facility] Start: 06-07-2024 Insertion of catheter into peripheral vein [facility] Start: 06-07-2024 Measuring intake and output [facility] Start: 06-07-2024 Providing care according to standard [facility] Start: 06-07-2024 End: 06-07-2024 [facility] Start: 06-07-2024 Following clinical pathway protocol [facility] Start: 06-07-2024 Admission procedure [facility] Start: 06-07-2024 Hospital admission, emergency, from emergency room, medical nature [facility] Start: 06-07-2024 Anes transurethral w/urethrocystoscopy nos ANESTH BLADDER SURGERY [facility] Start: 06-07-2024 Cysto w/insert ureteral stent CYSTOSCOPY AND TREATMENT [facility] Start: 05-09-2024 [facility] Start: 05-08-2024 Egd transoral biopsy single/multiple EGD BIOPSY SINGLE/MULTIPLE [facility] Start: 05-08-2024 Patient discharge [facility] Start: 04-27-2024 Screening for malignant neoplasm of colon [facility] Start: 03-26-2024 Diabetes mellitus screening Diabetes Screening [facility] Start: 03-21-2024 Yearly Adult Physical Yearly Adult Physical [facility] Start: 03-02-2024 Covid-19 Vaccine ( season) Covid-19 Vaccine ( season) [facility] Start: 03-02-2024 Covid-19 Vaccine ( season) Covid-19 Vaccine () [facility] Start: 03-02-2024 Influenza vaccination Influenza Vaccine (#1) [facility] Start: 12-03-2023 End: 12-03-2023 Patient encounter procedure 12/03/2023 9:00 AM EDT Office Visit Cardiology [address] [place] [address] Blayne Guerra MD [address] [place] [address] Elevated BP Cardiology Comment on above: Elevated BP Start: 12-03-2023 End: 12-03-2023 ambulatory 12/03/2023 8:00 AM EDT Results Only Cardiology [address] [place] [address] Elevated BP Cardiology Comment on above: Elevated BP Start: 11-21-2023 End: 11-21-2023 Patient encounter procedure 11/21/2023 10:00 AM EDT Office Visit OB/Gynecology [address] [place] [address] Suzanne Gallardo APRN.CN [address] [place] [address] annual OB/Gynecology Comment on above: annual Start: 10-22-2023 End: 10-22-2023 Patient encounter procedure 10/22/2023 1:40 PM EDT Office Visit [facility] [address] [phone] [place] [address] [address] [facility] Start: 10-10-2023 End: 10-10-2023 Patient encounter procedure 10/10/2023 1:40 PM EDT Office Visit [facility] [address] [place] [phone] Lul Chin, CHEMIST STEROIDS-SOUND RECORDIST [address] [facility] [place], [place] [phone] [facility] Start: 10-08-2023 End: 10-08-2023 Patient encounter procedure 10/08/2023 1:40 PM EDT Office Visit [facility] Office [facility] [address] [place] [phone] Lul Chin, CHEMIST STEROIDS-SOUND RECORDIST [address] [facility] [place], [place] [phone] [facility] Start: 10-04-2023 End: 10-04-2023 Patient encounter procedure 10/04/2023 2:00 PM EDT Office Visit [facility] [address] [facility] [address] [place] [phone] Blayne Weeks MD [address] [facility] [address] [place] [address] [facility] Start: 08-20-2023 End: 08-20-2023 Patient encounter procedure 08/20/2023 1:30 PM EST Office Visit [facility] [address] [facility] [address] [place] [phone] [place] [address] [facility] [place] [address] [facility] Start: 08-13-2023 End: 08-13-2023 Patient encounter procedure 08/13/2023 1:30 PM EST Appointment [facility] [address] [place] [phone] [facility] Start: 08-06-2023 End: 08-06-2025 Holter monitor study Holter Or Event [facility] Routine Heart palpitations Expected: 08/06/2023 (Approximate), Expires: 08/06/2025 [facility] Service Area Work Phone: Comment on above: Expected: 08/06/2023 (Approximate), Expi res: 08/06/2025 Start: 07-31-2023 End: 07-31-2023 Patient encounter procedure 07/31/2023 1:30 PM EST Office Visit [facility] [address] [facility] [address] [place] [address] [place] [address] [place] [address] [facility] Start: 07-05-2023 End: 07-05-2023 Patient encounter procedure 07/05/2023 9:20 AM EST Office Visit [facility] Office Building [address] [address] [place] [phone] [place] [address] [facility], [address] [place] [address] [facility] Office [facility] Start: 07-02-2023 Behavioral Health Screening Behavioral Health Screening [facility] Start: 07-02-2023 Depression Assessment Depression Assessment [facility] Start: 06-08-2023 End: 06-08-2023 Admission to same day surgery center 06/08/2023 1:00 PM EST - 06/08/2023 2:00 PM EST Surgery [facility] [place] [place] [address] [place] [phone] [place] [address] [facility], [address] [place] [address] RIGHT OOPHORECTOMY, SLING PLACEMENT [31379 (CPT )] [facility] [place] Comment on above: RIGHT OOPHORECTOMY, SLING [...] physician 06/08/2023 11:30 AM EST Hospital Encounter [facility] [place] [address] [place] [phone] [place] [address] [address] [facility] [place] Start: 06-07-2023 End: 06-07-2023 Patient encounter procedure 06/07/2023 3:00 PM EST Office Visit [facility] [address] [facility] 1st [place] [phone] [place] [address] [place] [address] [facility] Start: 06-07-2023 End: 06-07-2023 Telemedicine consultation with patient 06/07/2023 9:20 AM EST Telemedicine [facility] Office Building [address] [phone] [place] [address] [address] [facility] Building Start: 05-28-2023 End: 05-28-2023 Admission to same day surgery center 05/28/2023 12:00 PM EST - 05/28/2023 1:15 PM EST Surgery [facility] [place] [address] [place] [phone] [place] [address] [facility], [address] [address] Oophorectomy [05688 (CPT )] [facility] [place] Comment on above: Oophorectomy [87309 (CPT )] Start: 05-28-2023 End: 05-28-2023 Anesthesia consultation 05/28/2023 12:00 PM EST Anesthesia Event [facility] [place] [address] [place] [phone] Jean Schreiber, [address] [place] [address] [facility] [place] Start: 05-28-2023 End: 05-28-2023 Oophorectomy partial/total uni/bi Oophorectomy Adnexal mass 05/28/2023 12:00 PM EST [facility] Start: 05-28-2023 Subsequent hospital visit by physician 05/28/2023 10:30 AM EST Hospital Encounter [facility] [place] [address] [place] [address] [place] [address] [facility], [facility] [address] [place] [address] [facility] [place] Start: 05-22-2023 End: 05-22-2023 Patient encounter procedure 05/22/2023 8:30 AM EST Procedure Visit [facility] [address] [place] [address] [address] [place] [address] [facility] Start: 05-21-2023 End: 05-21-2023 Patient encounter procedure 05/21/2023 3:00 PM EST Office Visit [facility] [address] [phone] Blayne Weeks MD [address] [phone] [facility] Start: 04-05-2023 End: 10-04-2024 Colonoscopy Colonoscopy Screening Endoscopy Routine Esophageal dysphagia Colon cancer screening Expected: 04/05/2023, Expires: 10/04/2024 [facility] Work Phone: Comment on above: Expected: 04/05/2023, Expires: Start: 04-05-2023 End: 04-05-2024 Esophagogastroduodenoscopy EGD Endoscopy Routine Esophageal dysphagia Colon cancer screening Expected: 04/05/2023 (Approximate), Expires: 04/05/2024 [facility] Service Area Work Phone: Comment on above: Expected: 04/05/2023 (Approximate), Expi res: 04/05/2024 Start: 03-20-2023 End: 03-20-2024 25-hydroxyvitamin D3 [Mass/volume] in Serum or Plasma Vitamin D 25-Hydroxy,Total (for eval of Vitamin D levels) Lab Routine Encounter for annual physical exam Expected: 03/20/2023 (Approximate), Expires: 03/20/2024 [facility] Work Phone: Comment on above: Expected: 03/20/2023 (Approximate), Expi res: 03/20/2024 Start: 03-20-2023 End: 03-20-2024 Colonoscopy Colonoscopy Screening Endoscopy Routine Colon cancer screening Expected: 03/20/2023 (Approximate), Expires: 03/20/2024 [facility] Work Phone: Comment on above: Expected: 03/20/2023 (Approximate), Expi res: 03/20/2024 Start: 03-20-2023 End: 05-20-2024 DBT Breast - bilateral BI mammo bilateral screening tomosynthesis Imaging Routine Breast cancer screening by mammogram Expected: 03/20/2023, Expires: 05/20/2024 [facility] Service Area Work Phone: Comment on above: Expected: 03/20/2023, Expires: Start: 03-20-2023 End: 03-20-2024 Hemoglobin A1c/Hemoglobin.total in Blood Hemoglobin A1C Lab Routine Encounter for annual physical exam Expected: 03/20/2023 (Approximate), Expires: 03/20/2024 [facility] Work Phone: Comment on above: Expected: 03/20/2023 (Approximate), Expi res: 03/20/2024 Start: 03-20-2023 End: 03-20-2024 Hepatitis C virus Ab [Presence] in Serum Hepatitis C Antibody Lab Routine Encounter for annual physical exam Expected: 03/20/2023 (Approximate), Expires: 03/20/2024 [facility] Work Phone: Comment on above: Expected: 03/20/2023 (Approximate), Expi res: 03/20/2024 Start: 03-20-2023 End: 03-20-2024 HIV 1+2 Ab+HIV1 p24 Ag [Presence] in Serum or Plasma by Immunoassay HIV 1/2 Antigen/Antibody Screen with Reflex to Confirmation Lab Routine Encounter for annual physical exam Expected: 03/20/2023 (Approximate), Expires: 03/20/2024 [facility] Work Phone: Comment on above: Expected: 03/20/2023 (Approximate), Expi res: 03/20/2024 Start: 03-20-2023 End: 03-20-2024 Lipid 1996 panel - Serum or Plasma Lipid Panel Lab Routine Encounter for annual physical exam Expected: 03/20/2023 (Approximate), Expires: 03/20/2024 [facility] Work Phone: Comment on above: Expected: 03/20/2023 (Approximate), Expi res: 03/20/2024 Start: 03-08-2023 End: 03-08-2024 [facility] Start: 03-02-2023 Covid-19 Vaccine ( season) Covid-19 Vaccine () [facility] Start: 03-02-2023 Influenza vaccination Influenza Vaccine (#1) [facility] Start: 08-06-2022 DIABETES SCREEN DIABETES SCREEN [facility] Start: 08-06-2022 Diabetes Screening Diabetes Screening [facility] Start: 07-02-2022 Depression Assessment Depression Assessment [facility] Start: 03-02-2022 Influenza vaccination [facility] Start: 12-05-2021 FUV, Provider: Joshua Tena, Status: Pen, Time: 8:15 AM FUV, Provider: Joshua Tena, Status: Abdulaziz, Time: 8:15 AM [facility] Work Phone: Start: 2021 COLOGUARD (FIT-DNA) COLOGUARD (FIT-DNA) [facility] Start: 2021 Colonoscopy COLONOSCOPY [facility] Start: 2021 COLORECTAL CANCER SCREENING COLORECTAL CANCER SCREENING [facility] Start: [address] COLONOGRAPHY [facility] Start: 2021 FECAL OCCULT BLOOD FECAL OCCULT BLOOD [facility] Start: 2021 Lipid 1996 panel - Serum or Plasma Lipid Screening [facility] Start: 2021 LIPID SCREEN LIPID SCREEN [facility] Start: 2021 Screening for malignant neoplasm of colon [facility] Start: 2021 SIGMOIDOSCOPY SIGMOIDOSCOPY [facility] Start: 10-28-2021 NPV, Provider: Keo Brown, Status: Pen, Time: 11:30 AM NPV, Provider: Keo Brown, Status: Pen, Time: 11:30 AM [facility] Work Phone: Start: 10-28-2021 DUALAUDIO, Provider: Lucila Davis, Status: Pen, Time: 11:00 AM DUALAUDIO, Provider: Lucila Davis, Status: Pen, Time: 11:00 AM [facility] Work Phone: Start: 09-26-2021 End: 11-26-2021 STONE PANEL URINE STONE PANEL URINE Lab Routine Kidney stones Expected: 09/26/2021, Expires: 11/26/2021 [facility] Work Phone: Comment on above: Expected: 09/26/2021, Expires: 2 Start: 09-15-2021 COVID-19 VACCINE (3 - Booster for Pfizer series) COVID-19 VACCINE (3 - Booster for Pfizer series) [facility] Start: 07-02-2021 DEPRESSION ASSESSMENT DEPRESSION ASSESSMENT [facility] Start: 06-12-2021 COVID-19 VACCINE (3 - Booster for Pfizer series) COVID-19 VACCINE (3 - Booster for Pfizer series) [facility] Start: 06-12-2021 COVID-19 Vaccine (3 - Pfizer series) COVID-19 Vaccine (3 - Pfizer series) [facility] Start: 03-02-2021 Influenza vaccination INFLUENZA (#1) [facility] Start: 01-27-2021 STRESS DONA, Provider: SUKHJINDER STRESS TEST,CHCSTRESS, Status: Pen, Time: 11:00 AM STRESS DONA, Provider: CONCORD STRESS TEST,CHCSTRESS, Status: Pen, Time: 11:00 AM [id number] Work Phone: Start: 01-20-2021 STRESS DONA, Provider: CONCORD STRESS TEST,CHCSTRESS, Status: Pen, Time: 9:00 AM STRESS DONA, Provider: CONCORD STRESS TEST,CHCSTRESS, Status: Pen, Time: 9:00 AM [facility] [employer] Work Phone: Start: 01-20-2021 ECHO, Provider: CONCORD ECHOCARDIOGRAM 1,CHCECHO 1, Status: Pen, Time: 8:00 AM ECHO, Provider: CONCORD ECHOCARDIOGRAM 1,CHCECHO 1, Status: Pen, Time: 8:00 AM [facility] [employer] Work Phone: Start: 12-30-2020 STRESS DONA, Provider: CONCORD STRESS TEST,CHCSTRESS, Status: Pen, Time: 11:00 AM STRESS DONA, Provider: CONCORD STRESS TEST,CHCSTRESS, Status: Pen, Time: 11:00 AM [id number] Work Phone: Start: 12-30-2020 ECHO, Provider: CONCORD ECHOCARDIOGRAM 1,CHCECHO 1, Status: Pen, Time: 10:00 AM ECHO, Provider: CONCORD ECHOCARDIOGRAM 1,CHCECHO 1, Status: Pen, Time: 10:00 AM [id number] [facility] Work Phone: Start: 12-26-2019 Screening for malignant neoplasm of cervix Pap Smear [facility] Start: 11-02-2019 Screening for malignant neoplasm of breast Mammogram [facility] Start: 03-09-2019 Screening for malignant neoplasm of breast Mammogram Screening [facility] Start: 10-14-2018 HPV TESTING HPV TESTING [facility] Start: 10-14-2018 PAP TESTING PAP TESTING [facility] Start: 10-14-2018 Screening for malignant neoplasm of cervix [facility] Start: 12-08-2016 Adult depression screening assessment DEPRESSION SCREENING [facility] Start: 2016 Mammography [facility] Start: 10-30-2013 Urine microalbumin profile DTAP,TDAP,TD (2 - Tdap) [facility] Start: 1997 Screening for malignant neoplasm of cervix HPV/Cotest [facility] Start: 11-16-1995 Hepatitis B Vaccine (1 of 3 - 19+ 3-dose series) Hepatitis B Vaccine (1 of 3 - 19+ 3-dose series) [facility] Start: 1994 ANNUAL PCP TEAM CHRONIC DISEASE VISIT ANNUAL PCP TEAM CHRONIC DISEASE VISIT [facility] Start: 1994 BP Controlled (<130/80) BP Controlled (<130/80) [facility] Start: 1994 Depression Screening Depression Screening [facility] Start: 1994 Diabetes mellitus screening Diabetes Screening [facility] Start: 1994 Hepatitis C screening Hepatitis C Screening [facility] Start: 1994 HIV SCREENING HIV SCREENING [facility] Start: 1994 HIV screening HIV Screening [facility] Start: 1982 PNEUMOCOCCAL (1 - PCV) PNEUMOCOCCAL (1 - PCV) [facility] Start: 1982 Pneumococcal vaccination Pneumococcal Vaccine (1 - PCV) [facility] Start: 1982 Pneumococcal Vaccine: Pediatrics (0 to 5 Years) and At-Risk Patients (6 to 64 Years) (1 - PCV) Pneumococcal Vaccine: Pediatrics (0 to 5 Years) and At-Risk Patients (6 to 64 Years) (1 - PCV) [facility] [facility] Start: 1977 MMR Vaccines (1 of 1 - Standard series) MMR Vaccines (1 of 1 - Standard series) [facility] Start: 1976 HEPATITIS B (1 of 3 - 3-dose series) HEPATITIS B (1 of 3 - 3-dose series) [facility] Start: 1976 Hepatitis B Vaccine (1 of 3 - 3-dose series) Hepatitis B Vaccine (1 of 3 - 3-dose series) [facility] Start: 1976 Hepatitis B Vaccines (1 of 3 - 3-dose series) Hepatitis B Vaccines (1 of 3 - 3-dose series) [facility] Start: 1975 HIV screening HIV Screening [facility] Start: 1975 Screening for malignant neoplasm of colon [facility] End: 05-28-2023 Choriogonadotropin ( test) [Presence] in Urine POCT , urine manually resulted Point of Care Testing Routine Once (Lab) for 1 Occurrences starting 05/28/2023 until 05/28/2023 [facility] Work Phone: Comment on above: Once (Lab) for 1 Occurrences starting until 05/28/2023 End: 10-26-2022 Ct abdomen & pelvis w/o contrast material CT FLANK WO IVCON Radiology Routine Kidney stones 1 Occurrences starting 09/26/2021 until 10/26/2022 [facility] Work Phone: Comment on above: 1 Occurrences starting 09/26/2021 until 10/26/2022 End: 05-14-2023 ECG 12 lead ECG 12 lead ECG STAT Once for 1 Occurrences starting 05/14/2023 until 05/14/2023 [facility] Work Phone: Comment on above: Once for 1 Occurrences starting 05/14/20 until 05/14/2023 End: 04-25-2023 EMG(NEURO/NI) EMG(NEURO/NI) EMG Routine Cubital tunnel syndrome on left 1 Occurrences starting 04/25/2022 until 04/25/2023 [facility] Work Phone: Comment on above: 1 Occurrences starting 04/25/2022 until 04/25/2023 Glucose [Mass/volume ] in Serum or Plasma POCT Glucose Point of Care Testing - Docked Device Routine As needed (Lab) until discontinued starting 05/28/2023 [facility] Work Phone: Comment on above: As needed (Lab) until discontinued start ing 05/28/2023 End: 08-31-2023 Holter monitor study [facility] Work Phone: Comment on above: Once for 1 Occurrences starting 08/31/19 24 until 08/31/2023 NEUROMUSCULAR ULTRASOUND/NEUROLOGY NEUROMUSCULAR ULTRASOUND/NEUROLOGY Procedures Routine Cubital tunnel syndrome on left Laceration of left forearm, sequela Ordered: 04/25/2022 [facility] Work Phone: Comment on above: Ordered: 04/25/2022 Patient Education [facility] Work Phone: Patient referral [facility] Work Phone: End: 05-28-2023 Troponin I.cardiac panel - Serum or Plasma by High sensitivity method [facility] Work Phone: Comment on above: STAT (Lab) for 1 Occurrences starting until 05/28/2023 Once for 1 Occurrenc es starting 05/28/2023 until 05/28/2023 URINALYSIS, REFLEX MICROSCOPIC U RINALYSIS, REFLEX MICROSCOPIC Lab Routine Screening for genitourinary condition Ordered: 10/04/2021 [facility] Work Phone: Comment on above: Ordered: 10/04/2021 [facility] Immunizations Immunization Date Immunization Notes Care Provider Fa bib 07-03-2023 Pneumococcal conjugate vaccine, 20-valent (PREVNAR 20) Blayne Weeks MD Work Phone: [facility] Work Phone: 03-11-2023 influenza, injectable, quadrivalent, preservative free Haihunteram Kousa Other Phone: [facility] 03-11-2023 influenza virus vaccine, unspecified formulation Xr Lianne Work Phone: [facility] 03-21-2022 influenza, injectable, quadrivalent, preservative free H J Kousa Work Phone: [facility] Work Phone: 03-21-2022 tetanus toxoid, reduced diphtheria toxoid, and acellular pertussis vaccine, adsorbed AIDAN HOFIUS Other [facility] [employer] Other 03-21-2022 influenza, injectable, quadrivalent, contains preservative AIDAN HOFIUS Other [facility] [email or web address] Other 03-21-2022 influenza virus vaccine, unspecified formulation [address] 04-17-2021 Pfizer-BioNTech COVID-19 Vacc 30 MCG/0.3ML Intramuscular Suspension H J Kousa Work Phone: [facility] Work Phone: 03-27-2021 Pfizer-BioNTech COVID-19 Vacc 30 MCG/0.3ML Intramuscular Suspension H J Kousa Work Phone: [facility] Work Phone: 06-19-2019 influenza, injectable, quadrivalent, contains preservative H J Kousa Work Phone: [facility] 04-13-2015 influenza, injectable, quadrivalent, contains preservative H J Kousa Work Phone: [facility] Work Phone: 04-28-2013 influenza virus vaccine, unspecified formulation Adriana Martinez MD Work Phone: [facility] 04-01-2013 Influenza virus vaccine Dwayne Stephens MD Work Phone: [facility] 04-12-2012 influenza virus vaccine, unspecified formulation Adriana Martinez MD Work Phone: [facility] Work Phone: 03-02-2010 influenza virus vaccine, unspecified formulation Adriana Martinez MD Work Phone: [facility] 10-31-2003 diphtheria and tetanus toxoids, adsorbed for pediatric use Adriana Martinez MD Work Phone: [facility] Work Phone: NEGATED: Highlighted row has not occurred! 2 tetanus toxoid, reduced diphtheria toxoid, and acellular pertussis vaccine, adsorbed; Translations: [DIPH/PERTUSS(ACELL )/TET (TDAP)] Patient Objection DO Yemi Toribio DO [facility] [place] Payers Date Payer Category Payer Unknown [id number] 2024 Self-pay [id number] 2014 Medicaid [facility] MEDICAID [id number] 2014-Present [phone] [address] [place] [address] Medicaid [id number]. [id number] 2014 Medicaid [id number]. 1.13.159.2.7.3. [id number] 2014 Unknown 2014 Unknown [id number] 1976 Unknown [id number] 2.16.840.1.938428.3.579.2.69 1976 Unknown [id number] 2.16.840.1.006844.3.579.2. 1976 Unknown [id number] 2.16.840.1.403251.3.579.2.69 1976 Unknown [id number] 2.16.840.1.798716.3.579.2.356 1976 Unknown [id number] 2.16.840.1.397812.3.579.2.356 1976 Unknown [id number] 2.16.840.1.659619.3.579.2.1244 1976 Unknown [id number] 2.16.840.1.606901.3.579.2.1244 1976 Unknown [id number] 2.16.840.1.203837.3.579.2.356 1976 Unknown [id number] 2.16.840.1.406095.3.579.2.356 1976 Unknown [id number] 2.16.840.1.864736.3.579.2.124 1976 Unknown [id number] 2.16.840.1.443463.3.579.2.1244 1976 Unknown [id number] 2..840.1.310418.3.579.2.124 1976 Unknown [id number] 2..840.1.770450.3.579.2.1243 1976 Unknown [id number] 2.16.840.1.897925.3.579.2.124 1976 Unknown [id number] 2.840.1.371240.3.579.2.1243 1976 Unknown [id number] 2.840.1.435645.3.579.2.1243 1976 Unknown [id number] 2.840.1.918857.3.579.2.1241 1976 Unknown [id number] 2.840.1.736989.3.579.2.1241 1976 Unknown [id number] 2.840.1.121789.3.579.2.1242 Medicaid [id number] 2.840.1.735739.19 Unknown [id number] 2.840.1.736688.3.579.2.462 Unknown [id number] .840.1.010826.3.579.2.462 Unknown [id number] 2.840.1.036866.3.579.2.462 Unknown [id number] 2.840.1.727850.3.579.2.462 Unknown [id number] 2.16840.1.654862.3.579.2.462 Unknown [id number] 2.16840.1.563856.3.579.2.462 Unknown [id number] 2.840.1.016613.3.579.2.462 Unknown [id number] 2.16840.1.769443.3.579.2.462 Unknown [id number] 2.16.840.1.477542.3.579.2.462 Unknown [id number] 2.16.840.1.775914.3.579.2.462 Unknown [id number] 2.16.840.1.794408.3.579.2.462 Unknown [id number] 2.16.840.1.711238.3.579.2.462 Unknown [id number] 2.16.840.1.988682.3.579.2.462 Unknown [id number] 2.16.840.1.473356.3.579.2.462 Unknown [id number] 2.16.840.1.049826.3.579.2.462 Unknown [id number] 2.16.840.1.456839.3.579.2.462 Unknown [id number] 2.16.840.1.381056.3.579.2.462 Unknown [id number] 2.16.840.1.907065.3.579.2.462 Unknown [id number] 2.16.840.1.810859.3.579.2.462 Unknown [id number] 2.16.840.1.007018.3.579.2.462 Unknown [id number] 2.16.840.1.973973.3.579.2.462 Unknown [id number] 2.16.840.1.399850.3.579.2.462 Unknown [id number] 2.16.840.1.262335.3.579.2.462 Unknown [id number] 2.16.840.1.561969.3.579.2.462 Unknown [id number] 2.16.840.1.290607.3.579.2.462 Unknown [id number] 2.16.840.1.396910.3.579.2.462 Unknown [id number] 2.16.840.1.266256.3.579.2.462 Unknown [id number] 2.16.840.1.238020.3.579.2.462 Unknown [id number] 2.16.840.1.463271.3.579.2.462 Unknown [id number] 2.16.840.1.746964.3.579.2.462 Unknown [id number] 2.16.840.1.707506.3.579.2.462 Unknown [id number] 2.16.840.1.058879.3.579.2.462 Unknown [id number] 2.16.840.1.070496.3.579.2.462 Unknown [id number] 2.16.840.1.820872.3.579.2.462 Unknown [id number] 2.16.840.1.065436.3.579.2.462 Unknown [id number] 2.16.840.1.565682.3.579.2.462 Unknown [id number] 2.16.840.1.159900.3.579.2.462 Unknown [id number] 2.16.840.1.476761.3.579.2.462 Unknown [id number] 2.16.840.1.323296.3.579.2.462 Unknown [id number] 2.16.840.1.686501.3.579.2.462 Unknown [id number] 2.16.840.1.986166.3.579.2.462 Social History Date Type Detail Facility Start: 03-20-2023 End: 05-22-2024 Never a smoker Never a smoker [facility] Work Phone: Comment on above: 2 cups per day; Start: 12-19-2013 End: 11-30-2024 Tobacco smoking status NHIS Never smoked tobacco [facility] Start: 12-19-2013 End: 09-22-2023 Tobacco use and exposure Smokeless tobacco non-user [facility] Start: 04-04-2021 End: 07-18-2024 Alcohol intake Current drinker of alcohol (finding) [facility] Start: 07-24-2019 History SDOH Alcohol Frequency 99 [facility] Start: 07-24-2019 History SDOH Alcohol Comment very rare- maybe 2x/ year [facility] Start: 1975 Sex Assigned At Not on file C [facility] Start: 09-08-2020 End: 08-31-2023 Exposure to SARS-CoV-2 (event) Not sure [facility] Start: 03-20-2023 End: 05-22-2024 Sex Assigned At [facility] [place] Tobacco smoking consumption unknown [facility] Start: 03-20-2023 End: 08-06-2023 Alcohol intake Lifetime non-drinker (finding) [facility] Work Phone: Frequency of Alcohol Consumption Monthly or less [facility] Start: 04-17-2023 End: 04-27-2023 Exposure to SARS-CoV-2 (event) Unable to assess [facility] Start: 05-28-2023 Alcohol Comment onoce every co uple months [facility] Work Phone: Start: 08-06-2023 Alcohol Comment once every cou ple months [facility] Work Phone: Start: 2023 None None [facility] Start: 03-13-2014 With Family With Family [facility] Start: 03-10-2015 Non-smoker Non-smoker [facility] Start: 09-04-2024 End: 10-23-2024 Sex Female (finding) [facility] Start: 1975 Sex Assigned At Female W [facility] NEGATED: Highlighted rowStart: NINF History of tobacco use Passive smoker [facility] Work Phone: NEGATED: Highlighted row Not [facility] Medical Equipment Procedure Code Equipment Code Equipment Origin al Text Equipment Identifier Dates Cystoscopy, with retrograde pyelogram and ureteral stent insertion ([id number]) Polymeric ureteral stent ([id number] FDA Start: 06-09-2024 Goals Date Patient Goal Desired Activity /State Functional Status Date Assessment Result Facility 06-28-2024 Functional status Ambulates [facility] Work Phone: 06-09-2024 Functional status Bathroom [facility] Work Phone: Functional observable Counts include 234 beds at the [facility] Mental Status Date Assessment Result Facility 09-04-2024 Cognitive function Level Of Cons ciousness Awake;Alert;Appropriate;Follow s Commands [facility] Work Phone: 08-11-2024 Cognitive function Level Of Cons ciousness Awake;Alert;Appropriate;Follow s Commands [facility] Work Phone: 06-28-2024 Cognitive function Voice/Name [facility] Work Phone: 06-28-2024 Cognitive function Appropriate;Cooperativ e [facility] Work Phone: 06-19-2024 Cognitive function Level Of Cons ciousness Awake;Drowsy [facility] Work Phone: 06-19-2024 Cognitive function Voice/Name [facility] Work Phone: 06-09-2024 Cognitive function Voice/Name [facility] Work Phone: 05-08-2024 Cognitive function Voice/Name [facility] Work Phone: 03-13-2023 Cognitive functi ons [id number] [facility] Clinical Notes 03-17-2015 to 11-30-2024 Note Date & Type Note Facility 11-30-2024 Discharge summary [facility] 11-30-2024 Radiology Diagnostic study note [facility] Imaging Services [address] [place] [address] Wrist min 3 Views MR#: [id number] Acct: [id number] Name: DAMARI RIOS Rep #: [id number] : 1975 F 49 From: Claude Valadez MD PCP: Dr. Dwayne Stephens MD Status: REG ER Study:Wrist min 3 Views Date of Exam: Exam# [id number] Ordering Dr: Eulogio Acuña MD PROCEDURE: WRIST MIN 3 VIEWS 11/30/2024 REASON FOR EXAM: PAIN TECHNIQUE: Three views of the right wrist. COMPARISON: None. FINDINGS: No evidence of acute fracture or dislocation. The soft tissues are unremarkable. RAD/Wrist min 3 Views IMPRESSION: No acute osseous abnormalities. Reading Location: [id number] CC: Dr. Eulogio Acuña MD; Dr. Dwayne Stephens MD ~ General Store Manager: Signed [facility] 11-30-2024 Discharge summary Note Date/Time November 30, 2024 4:50p m [facility] Medical Records Department [address] [place] [address] Emergency Department Summary 11/30/24 MR#: [id number] Acct: [id number] Name: DAMARI RIOS Rep #:[id number] : 1975 49 From: Eulogio Acuña MD PCP: Dr. Dwayne Stephens MD Status:REG ER Location: ED HPI History of Present Illness Chief Complaint: Upper Extremity Injury Narrative Narrative: 49-year-old female, svkeb-osma-dflnoiny, past medical history of DVT/PE on Eliquis presents with right hand injury from a few days ago. She states that she was rearranging large [employer] tubs/boxes. 1 started to fall onto her over her head. She tried to brace it with her right hand. She sustained a hyper extension injury and complains of pain mainly on the back of her hand and radiating up towards her wrist. Pain is worse with movement. She denies other injuries. No hitting of her head or loss of consciousness. [facility] Medical History Peripheral vascular disease Urinary tract infection Flank pain Anemia Easy bruising Restless legs History of stress test Wears glasses Post-menopausal Pulmonary embolism History of IBS Gastric reflux Non-smoker Asthma Cardiology follow-up encounter Hypertension Home Medications ?Medication ?Instructions ?Recorded ?Last Taken ?Type apixaban 5 mg tablet (Eliquis) 5 mg PO BID blood thinn er 12/04/23 06/16/24 History carvedilol 3.125 mg tablet 1.5625 mg PO DAILY heart 06/19/24 History carvedilol 25 mg tablet 25 mg PO DAILY 07/30/24 Unkn own History tramadol 50 mg tablet 50 mg PO Q6H PRN PRN Pain 3 days 07/30/24 Unknown Rx #12 tabs ondansetron 4 mg disintegrating 4 mg PO Q8H PRN PRN Na usea #10 tabs 09/25/24 Unknown Rx tablet dicyclomine 20 mg tablet 20 mg PO TID PRN abdominal p ain 10/23/24 Unknown Rx #10 tabs ondansetron 4 mg disintegrating 4 mg PO Q8H PRN PRN Na usea #10 tabs 10/23/24 Unknown Rx tablet methocarbamol 500 mg tablet 500 mg PO TID PRN pain/spa sms #60 11/04/24 Unknown Rx tabs pantoprazole 40 mg tablet,delayed 40 mg PO BID #90 tab s 11/13/24 Unknown Rx release amlodipine 5 mg tablet 10 mg PO DAILY blood pressur e 11/26/24 Unknown History cilostazol 50 mg tablet 50 mg PO BID 11/26/24 Unknow n History famotidine 20 mg tablet 20 mg PO QDAY 11/26/24 Unkno wn History hydrocodone-acetaminophen 5-325mg 1 tab PO BID PRN Unknown History 5mg-325mg ipratropium bromide 42 mcg (0.06 2 spray intranasal TI D PRN 11/26/24 Unknown History %) nasal spray potassium chloride 10 mEq 10 meq PO QDAY 11/26/24 Unkn own History capsule,extended release Allergy/AdvReac Type Severity Reaction Status Date / Time Penicillins Allergy Anaphylaxis Verified 11/30/24 15:26 naproxen (From Naprosyn) AdvReac Unknown Nausea Verified 11/30/24 15:26 codeine AdvReac Nausea Verified 11/30/24 15:26 Family History Brother Asthma Grandmother Diabetes Myocardial infarction Father Hypertension Mother Uterine cancer Surgical History History of cystoscopy History of cardiac catheterization History of laparoscopic cholecystectomy History of bladder surgery History of hysterectomy Social History housing: house Smoking Status: Never smoker ROS ROS ED ROS Narrative Review of systems positive for right hand pain proximally/right wrist pain worsewith movement. No other injury. Uninjured at the elbow and above. EXAM Physical Exam Narrative Exam Narrative: GCS 15. ABCs intact. Cardiovascular examination regular rate and rhythm. Lungs are clear to auscultation bilaterally. Abdomen is soft, nontender, with normoactive bowel sounds. No crepitance of the wrist. Palpable radial pulse. No anatomical snuffbox tenderness. No tenderness at the elbow and above. Mild tenderness to palpation in the middle of carpal bones. No fluctuance. Able to oppose thumb. Adduction and abduction of fingers intact. Const Vital Signs: 11/30/24 15:25 Temperature 97.8 F Temperature Source Oral Pulse Rate 65 Respiratory Rate 18 Blood Pressure 131/84 H Blood Pressure Mean 99 Pulse Ox 98 Oxygen Delivery Method Room Air MDM MDM MDM Narrative Medical decision making narrative: With concern is for wrist sprain versus fracture versus carpal bone fracture versus ligamentous disruption with possible displacement. X-rays were obtained of the right wrist and 3 views and interpreted by myself independently. I see no evidence of acute fracture or osseous abnormality. I reviewed the radiology report which confirms my independent interpretation. At this point in time, she was placed in a Velcro cock up splint and told to follow-up with her primary care provider. Ice and elevation at home. She was also referred to plastic surgery/hand to follow-up as needed. I feel jaqq-lzm-nmhcraa medications are sufficient for analgesia for her wrist/hand sprain. Return instructions to the emergency department were reviewed. Disposition is discharged home in stable condition. History & Record Review Discussion w/independent historian: Patient Radiography X-Ray: Read by ED Physician, Read by Radiologist and No Fracture Discharge Plan Triage Chief Complaint: Upper Extremity Injury ED Provider: Eulogio Acuña Dx/Rx/DC Orders Clinical Impression: Sprain of right wrist, Hand sprain Instructions: ED Hand Sprain, ED Wrist Sprain Prescriptions: No Action methocarbamol 500 mg tablet 500 mg PO TID PRN (Reason: pain/spasms) Qty: 60 0RF potassium chloride 10 mEq capsule, extended release 10 meq PO QDAY cilostazol 50 mg tablet 50 mg PO BID hydrocodone-acetaminophen 5-325 mg tablet 1 tab PO BID PRN famotidine 20 mg tablet 20 mg PO QDAY ipratropium bromide 42 mcg (0.06 %) spray,non-aerosol 2 spray intranasal TID PRN pantoprazole 40 mg tablet,delayed release (DR/EC) 40 mg PO BID Qty: 90 2RF Eliquis 5 mg tablet 5 mg PO BID amlodipine 5 mg tablet 10 mg PO DAILY carvedilol 3.125 mg tablet 1.5625 mg PO DAILY tramadol 50 mg tablet 50 mg PO Q6H PRN PRN (Reason: Pain) 3 Days Qty: 12 0RF carvedilol 25 mg tablet 25 mg PO DAILY ondansetron 4 mg tablet,disintegrating 4 mg PO Q8H PRN PRN (Reason: Nausea) Qty: 10 0RF ondansetron 4 mg tablet,disintegrating 4 mg PO Q8H PRN PRN (Reason: Nausea) Qty: 10 0RF dicyclomine 20 mg tablet 20 mg PO TID PRN (Reason: abdominal pain) Qty: 10 0RF Primary Care Provider: Dwayne Stephens Referrals: Dwayne Stephens MD [Primary Care Provider] - 1 Week if not improving Supa Felix MD [Med Staff - Active Staff] - As Needed Print Language: Maori Disposition Disposition: Home, Self Care What to do if you have Problems For any increased pain, shortness of breath, bleeding, nausea or vomiting, chestpain, or any unexpected problems, contact your Primary Care Provider. Call [facility] ([phone]) or report to the closest Emergency Room. Call 911 if necessary. 11/30/24 1650 <Electronically signed by Eulogio Acuña MD> Cosigner Signature (if applicable): CC: Dr. Dwayne Stephens MD ~ Signed [facility] Work Phone: 1(718) 505-479205-06-2025 Evaluation note* Diagnosis Onset Date Resolution Status Admit Date Lumbar radiculopathy acute November 04, 2024 2:40pm Abdominal symptoms noneactive November 132024 3:18pm [facility] Work Phone: 1(391) 565-842105-06-2025 Evaluation note* Diagnosis Onset Date Resolution Status Admit Date Lumbar radiculopathy acute November 04, 2024 2:40pm Gastritis acute November 13, 2024 3:18pm IBS (irritable bowel syndrome) acute November 13, 2024 3:18pm Nausea acute November 13, 2024 3:18pm Abdominal pain inactive November 13, 2024 3:18pm Abdominal symptoms noneactive November 132024 3:18pm [facility] Work Phone: 1(367) 830-788104-02-2025 Radiology Diagnostic study note [facility] Imaging Services [address] [place] [address] Tibia & Fibula 2 Views MR#: [id number] Acct: [id number] Name: DAMARI RIOS Rep #: [id number] : 1975 F 48 From: Betsey Rodriguez DO PCP: Dr. Dwayne Stephens MD Status: REG ER Study:Tibia & Fibula 2 Views Date of Exam: 10/01/24 Exam# [id number] Ordering Dr: Pop Sykes DO PROCEDURE: TIBIA FIBULA 2 VIEWS 10/01/2024 REASON FOR EXAM: PROXIMAL TIBIAL TTP, HEMATOMA R/O FX TECHNIQUE: 2 views of the left tibia and fibula COMPARISON: None FINDINGS: Bones: No fracture. No suspicious bone lesion. Joints: Normal alignment at the knee and ankle. Soft tissues: Mild soft tissue swelling of the anterior proximal leg. Other: RAD/Tibia & Fibula 2 Views IMPRESSION: NO ACUTE FRACTURE OR DISLOCATION. Mild soft tissue swelling of the anterior proximal leg. Reading Location: [facility] CC: Dr. Dwayne Stephens MD; Dr. Albert Sykes DO ~ General Store Manager: Signed [facility]03-27-2025 Radiology Diagnostic study note [facility] Imaging Services [address] [facility] [place] [place] [address] Abdomen/Pelvis W IV Cont ONLY MR#: [id number] Acct: [id number] Name: DAMARI RIOS Rep #: [id number] : 1975 F 48 From: Bonnie Martinez MD PCP: Dr. Dwayne Stephens MD Status: REG ER Study:Abdomen/Pelvis W IV Cont ONLY Date of E xam: 09/24/24 Exam# [id number] Ordering Dr: Sumanth Coyne DO PROCEDURE: ABDOMEN/PELVIS W IV CONT ONLY 09/24/2024 REASON FOR EXAM: 48-year-old female, abdominal pain, nausea, vomiting x6 days. TECHNIQUE: Abdomen and pelvis CT without and with intravenous contrast. Coronal and Sagittal reconstruction series were provided. PATIENT PREPARATION: Per protocol ORAL CONTRAST TYPE: None. CONTRAST: Isovue-300 VOLUME: 100ML One or more dose reduction techniques were used (e.g., Automated exposure control, adjustment of the mA and/or kV according to patient size, use of iterative reconstruction technique. RADIATION DOSE SUMMARY: CTDlvol: 35 mGy DLP: 1300 mGycm COMPARISON: CT abdomen pelvis 09/04/2024. FINDINGS: Lung bases: The lung bases are clear. The heart is normal in size. Liver: Mild hepatomegaly with diffuse hepatic steatosis. The major portal veinsare patent. No biliary ductal dilation. Gallbladder: Surgically absent. Spleen: Unremarkable. Pancreas: Unremarkable. Adrenals: Unremarkable. Kidneys: Tiny nonobstructing left renal calculus. No hydronephrosis. Bladder: Decompressed. Reproductive Organs: Prior hysterectomy. Bowel: The bowel loops are normal in caliber. No ascites or pneumoperitoneum. Normal appendix. Lymph nodes: No lymphadenopathy. Vasculature: The abdominal aorta and IVC are normal. Bones: No aggressive osseous lesions. CT/Abdomen/Pelvis W IV Cont ONLY IMPRESSION: 1. No acute abdominopelvic finding. 2. Mild hepatomegaly with diffuse hepatic steatosis. Reading Location: [facility] CC: Dr. Dwayne Stephens MD; Dr. Sumanth Coyne DO ~ General Store Manager: Signed [facility]03-06-2025 Discharge summary [facility] Medical Records Department [address] [place] [address] Emergency Department Summary 09/04/24 MR#: [id number] Acct: [id number] Name: DAMARI RIOS Rep #:[id number] : 1975 48 From: Eulogio Acuña MD PCP: Dr. Dwayne Stephens MD Status:REG ER Location: ED HPI History of Present Illness Chief Complaint: General Illness Narrative Narrative: 48-year-old female presents with 1 week of right flank pain. She has pain in her low back and rightflank. Yesterday, she started having cough and shortnessof breath. She had subjective fever as well. She had nausea and vomiting as well. Past medical history does include hypertension and she is on Eliquis for pulmonary emboli. She denies any exacerbating or alleviating symptoms to her right flankpain, but states she has history of kidney stones which required stenting as well. [facility] Medical History Urinary tract infection Flank pain Anemia Easy bruising Restless legs History of stress test Wears glasses Post-menopausal Pulmonary embolism History of IBS Gastric reflux Non-smoker Asthma Cardiology follow-up encounter Hypertension Home Medications ?Medication ?Instructions ?Recorded ?Last Taken ?Type amlodipine 5 mg tablet 5 mg PO DAILY blood pressure 12/04/23 06/19/24 History apixaban 5 mg tablet (Eliquis) 5 mg PO BID blood thinn er 12/04/23 06/16/24 History pantoprazole 40 mg tablet,delayed 40 mg PO DAILY reflu x 12/04/23 06/19/24 History release carvedilol 3.125 mg tablet 1.5625 mg PO DAILY heart 06/19/24 History oxycodone 5 mg tablet 5 mg PO Q6H PRN pain 3 days #12 06/28/24 Unknown Rx tabs carvedilol 25 mg tablet 25 mg PO DAILY 07/30/24 Unkn own History esomeprazole magnesium 40 mg 40 mg PO DAILY 07/30/24 U nknown History capsule,delayed release ondansetron 8 mg disintegrating 8 mg PO TID PRN PRN na usea and 07/30/24 Unknown History tablet vomiting tramadol 50 mg tablet 50 mg PO Q6H PRN PRN Pain 3 days 07/30/24 Unknown Rx #12 tabs loratadine 10 mg tablet 10 mg PO DAILY #30 tabs 08/02 Unknown Rx (Allerclear) Allergy/AdvReac Type Severity Reaction Status Date / Time Penicillins Allergy Anaphylaxis Verified 09/04/24 14:41 naproxen (From Naprosyn) AdvReac Unknown Nausea Verified 09/04/24 14:41 codeine AdvReac Nausea Verified 09/04/24 14:41 Family History Brother Asthma Grandmother Diabetes Myocardial infarction Father Hypertension Mother Uterine cancer Surgical History History of cystoscopy History of cardiac catheterization History of laparoscopic cholecystectomy History of bladder surgery History of hysterectomy Social History housing: house Smoking Status: Never smoker ROS ROS ED ROS Narrative Constitutional: Subjective fever, no chills. HEENT: No sore throat. No neck pain. Cardiovascular: No chest pain. No palpitations. No pedal edema. Respiratory: Positive cough, positive shortness of breath. Abdominal: No abdominal pain. No nausea. No vomiting. Genitourinary: No dysuria. No hematuria. Positive right flank pain. Musculoskeletal: No myalgias. No arthralgias. Neurologic: No headaches. No dizziness. No lightheadedness. EXAM Physical Exam Narrative Exam Narrative: Afebrile. Vital signs noted. Nontoxic-appearing. Cardiovascular examination reveals a regular rate and rhythm. Lungs are clear to auscultation bilaterally. Abdomen is soft and nontender without guarding or rebound. Questionable tenderness to percussion right CVA. Positive bowel sounds. Neurological examination nonfocal and nonlateralizing. Seen ambulating to the ED room without difficulty. Const Vital Signs: 09/04/24 14:41 09/04/24 14:47 Temperature 96.3 F L Temperature Source Temporal Pulse Rate 58 L Respiratory Rate 16 Respiratory Effort Normal Non-Labored Respiratory Pattern Normal Blood Pressure 168/108 H Blood Pressure Mean 128 Pulse Ox 100 Oxygen Delivery Method Room Air MDM MDM MDM Narrative Medical decision making narrative: Differential diagnosis includes but not limited to pyelonephritis versus ureterolithiasis as a cause of her right flank pain. Additionally, she may havemore of an upper respiratory infection or bronchitis versus pneumonia. She is status post cholecystectomy so I doubt acute cholecystitis. She had right flanksymptoms for 1 week prior to her becoming sick over the last 1 to 2 days. I reviewed herlaboratory work and she has normal white count of 6.7 with hemoglobin 12.8, hematocrit 37.3, platelet count normal at 324. AST is slightlyelevated at 33 with ALT 47 which I think is nonspecific, normal alk phos. Urinalysis obtained and is negative for infection. I do not feel antibiotics are indicated. Negative ketones. Lipase normal at 51 so I doubt pancreatitis. As there is no blood or infection in her urine, I doubt ureterolithiasis as a source of her flank pain. I reviewed the radiology report of the CT of the abdomen and pelvis without contrast and there is no acute process, no hydronephrosis, no obstructive uropathy. Chest x-ray in 1 view interpreted by myself independently shows no evidence of pneumonia or pneumothorax. I reviewedthe radiology report which confirms my independent in terpretation. Patient had been given a dose of morphine and requested something for nausea so she was administered Zofran 4 mg ODT. At this point in time, as her respiratoryswabs are negative for COVID, influenza,and RSV I do not feel that she requiresan antiviral. Treatment will continue to be symptomatic with vdgs-xis-jeodnnw medications as needed for pain. She may be having more of a different type of viral syndrome. I do not feel she requires observation or admission. Return instructions to the emergency department were reviewed. Disposition is discharged home in stable condition. History & Record Review Discussion w/independent historian: Patient Lab Data Attestation: I reviewed the patient's lab results. Labs: Laboratory Results - last 24 hr 09/04/24 09/04/24 15:05 15:08 WBC 6.7 RBC 4.10 L Hgb 12.8 Hct 37.3 MCV 91.0 MCH 31.2 MCHC 34.3 RDW Std Deviation 41.1 RDW Coeff of Bibi 12.5 Plt Count 324 MPV 8.6 Immature Gran % (Auto) 0.100 Neut % (Auto) 44.1 L Lymph % (Auto) 46.3 H Gilmer % (Auto) 5.8 Eos % (Auto) 3.3 Baso % (Auto) 0.4 Absolute Neuts (auto) 3.0 Absolute Lymphs (auto) 3.11 Nucleated RBC % 0 Sodium 139 Potassium 4.1 Chloride 106 Carbon Dioxide 23.0 Anion Gap 10 BUN 16 Creatinine 1.00 Estim Creat Clear Calc 75.99 Est GFR (MDRD) Non-Af 70 BUN/Creatinine Ratio 16.2 Glucose 92 Calcium 9.2 Total Bilirubin 0.26 AST 33 H ALT 47 H Alkaline Phosphatase 86 Total Protein 7.3 Albumin 4.2 Globulin 3.0 Albumin/Globulin Ratio 1.4 Lipase 51 Urine Color Yellow Urine Clarity Clear Urine pH 6.0 Ur Specific [place]land 1.020 Urine Protein 15 H Urine Glucose (UA) Normal Urine Ketones Negative Urine Occult Blood Negative Urine Nitrite Negative Urine Bilirubin Negative Urine Urobilinogen Normal Ur Leukocyte Esterase Negative Urine RBC 0-5 SEEN Urine WBC 0-5 SEEN Ur Squamous Epith Cells 5-10 SEEN Urine Bacteria 1+ Urine Mucus 0 SEEN Radiography Diagnostic Testing: Clinical Impression(s) from Imaging Studies Abdomen/Pelvis CT 09/04/24 14:57 IMPRESSION: No evidence of an obstructive uropathy. Status post hysterectomy and cholecystectomy. One or more dose reduction techniques were used (e.g., Automated exposure control, adjustment of the mA and/or kV according to patient size, use of iterative reconstruction technique). Reading Location: [place] [address] Chest X-Ray 09/04/24 15:25 IMPRESSION: No active cardiopulmonary disease. Reading Location: [place] [address] Discharge Plan Triage Chief Complaint: General Illness ED Provider: Eulogio Acuña Dx/Rx/DC Orders Clinical Impression: Flank pain, Shortness of breath Instructions: ED Dyspnea, ED Flank Pain, Uncertain Cause, ED Pain, Acute, Uncertain Cause Prescriptions: No Action pantoprazole 40 mg tablet,delayed release (DR/EC) 40 mg PO DAILY amlodipine 5 mg tablet 5 mg PO DAILY Eliquis 5 mg tablet 5 mg PO BID carvedilol 3.125 mg tablet 1.5625 mg PO DAILY oxycodone 5 mg tablet 5 mg PO Q6H PRN (Reason: pain) 3 Days Qty: 12 0RF tramadol 50 mg tablet 50 mg PO Q6H PRN PRN (Reason: Pain) 3 Days Qty: 12 0RF carvedilol 25 mg tablet 25 mg PO DAILY ondansetron 8 mg tablet,disintegrating 8 mg PO TID PRN PRN (Reason: nausea and vomiting) esomeprazole magnesium 40 mg capsule,delayed release(DR/EC) 40 mg PO DAILY loratadine [Allerclear] 10 mg tablet 10 mg PO DAILY Qty: 30 0RF Primary Care Provider: Dwayne Stephens Referrals: Dwayne Stephens MD [Primary Care Provider] - 1 Week if not improving Activity Restrictions/Additional Instructions: Continue your ieok-nli-dreyvbb medications as needed for pain. Return with increased difficulty breathing, new or worsening symptoms. Print Language: Maori Disposition Disposition: Home, Self Care What to do if you have Problems For any increased pain, shortness of breath, bleeding, nausea or vomiting, chestpain, or any unexpected problems, contact your Primary Care Provider. Call [facility] ([phone]) or report tothe closest Emergency Room. Call 911 if necessary. 09/04/24 1621 Cosigner Signature (if applicable): CC: Dr. Dwayne Stephens MD ~ Signed [facility]03-06-2025 Radiology Diagnostic study note [facility] Imaging Services [address] [place] [id number] Chest 1 View (Portable) MR#: [id number] Acct: [id number] Name: DAMARI RIOS Rep #: [id number] : 1975 F 48 From: Sugar Garcia MD PCP: Dr. Dwayne Stephens MD Status: [facility] ER Study:Chest 1 View (Portable) Date of Exam: 09/04/24 Exam# [id number] Ordering Dr: Eulogio Acuña MD PROCEDURE: CHEST 1 VIEW (PORTABLE) REASON FOR EXAM: Cough. Shortness of breath. TECHNIQUE: Frontal view of the chest. COMPARISON: CTA chest dated 05/09/2024. FINDINGS: Lungs: Lungs clear of pneumonia and congestion. Pleura: No pleural effusions, thickening, or pneumothorax. Heart: Normal in size and configuration. Mediastinum/Radha: Unremarkable. Great vessels: Unremarkable. Bones/soft tissues: Unremarkable. RAD/Chest 1 View (Portable) IMPRESSION: No active cardiopulmonary disease. Reading Location: [place] [address] CC: Dr. Eulogio Acuña MD; Dr. Dwayne Stephens MD ~ General Store Manager: Signed [facility]03-06-2025 Radiology Diagnostic study note [facility] Imaging Services [address] [place] [address] Abdomen/Pelvis without Cont MR#: [id number] Acct: [id number] Name: DAMARI RIOS Rep #: [id number] : 1975 F 48 From: Sugar Garcia MD PCP: Dr. Dwayne Stephens MD Status: REG ER Study:Abdomen/Pelvis without Cont Date of Exa m: 09/04/24 Exam# [id number] Ordering Dr: Eulogio Acuña MD PROCEDURE: ABDOMEN/PELVIS WITHOUT CONT REASON FOR EXAM: Right flank pain. TECHNIQUE: Contiguous axial scans of 3.75 mm slice thicknesses. Sagittal and coronal reconstruction images were obtained. One or more dose reduction techniques were used (e.g., automated exposure control, adjustment of mAand/or kv according to patient size, use of iterative reconstruction technique). COMPARISON: CT abdomen and pelvis dated 06/27/2024 FINDINGS: Lung bases: Clear Liver: Unremarkable. Gallbladder: Surgically absent. Spleen: Unremarkable. Pancreas: Unremarkable. Adrenals: Unremarkable. Kidneys: Unremarkable. Bladder: Unremarkable. Reproductive Organs: Uterus is surgically absent Bowel: Unremarkable. Appendix: Normal. Lymph nodes: No suspicious lymph node enlargement. Vasculature: Numerous calcified phleboliths in the pelvis Peritoneum / Retroperitoneum: No ascites. No free air. Bones: Unremarkable. CT/Abdomen/Pelvis without Cont IMPRESSION: No evidence of an obstructive uropathy. Status post hysterectomy and cholecystectomy. One or more dose reduction techniques were used (e.g., Automated exposure control, adjustment of the mA and/or kV according to patient size, use of iterative reconstruction technique). Reading Location: [place] [address] CC: Dr. Eulogio Acuña MD; Dr. Dwayne Stephens MD ~ General Store Manager: Signed [facility]03-06-2025 Discharge summary Author Eulogio Acuña [facility] Note Date/Time September 04, 2024 4:21 pm [facility] Medical Records Department [address] [place] [address] Emergency Department Summary 09/04/24 MR#: [id number] Acct: [id number] Name: DAMARI RIOS Rep #:[id number] : 1975 48 From: Eulogio Acuña MD PCP: Dr. Dwayne Stephens MD Status:REG ER Location: ED HPI History of Present Illness Chief Complaint: General Illness Narrative Narrative: 48-year-old female presents with 1 week of right flank pain. She has pain in her low back and right flank. Yesterday, she started having cough and shortnessof breath. She had subjective fever as well. She had nausea and vomiting as well. Past medical history does include hypertension and she is on Eliquis for pulmonary emboli. She denies any exacerbating or alleviating symptoms to her right flank pain, but states she has history of kidney stones which required stenting as well. [facility] Medical History Urinary tract infection Flank pain Anemia Easy bruising Restless legs History of stress test Wears glasses Post-menopausal Pulmonary embolism History of IBS Gastric reflux Non-smoker Asthma Cardiology follow-up encounter Hypertension Home Medications ?Medication ?Instructions ?Recorded ?Last Taken ?Type amlodipine 5 mg tablet 5 mg PO DAILY blood pressure 12/04/23 06/19/24 History apixaban 5 mg tablet (Eliquis) 5 mg PO BID blood thinn er 12/04/23 06/16/24 History pantoprazole 40 mg tablet,delayed 40 mg PO DAILY reflu x 12/04/23 06/19/24 History release carvedilol 3.125 mg tablet 1.5625 mg PO DAILY heart 06/19/24 History oxycodone 5 mg tablet 5 mg PO Q6H PRN pain 3 days #12 06/28/24 Unknown Rx tabs carvedilol 25 mg tablet 25 mg PO DAILY 07/30/24 Unkn own History esomeprazole magnesium 40 mg 40 mg PO DAILY 07/30/24 U nknown History capsule,delayed release ondansetron 8 mg disintegrating 8 mg PO TID PRN PRN na usea and 07/30/24 Unknown History tablet vomiting tramadol 50 mg tablet 50 mg PO Q6H PRN PRN Pain 3 days 07/30/24 Unknown Rx #12 tabs loratadine 10 mg tablet 10 mg PO DAILY #30 tabs 08/02 Unknown Rx (Allerclear) Allergy/AdvReac Type Severity Reaction Status Date / Time Penicillins Allergy Anaphylaxis Verified 09/04/24 14:41 naproxen (From Naprosyn) AdvReac Unknown Nausea Verified 09/04/24 14:41 codeine AdvReac Nausea Verified 09/04/24 14:41 Family History Brother Asthma Grandmother Diabetes Myocardial infarction Father Hypertension Mother Uterine cancer Surgical History History of cystoscopy History of cardiac catheterization History of laparoscopic cholecystectomy History of bladder surgery History of hysterectomy Social History housing: house Smoking Status: Never smoker ROS ROS ED ROS Narrative Constitutional: Subjective fever, no chills. HEENT: No sore throat. No neck pain. Cardiovascular: No chest pain. No palpitations. No pedal edema. Respiratory: Positive cough, positive shortness of breath. Abdominal: No abdominal pain. No nausea. No vomiting. Genitourinary: No dysuria. No hematuria. Positive right flank pain. Musculoskeletal: No myalgias. No arthralgias. Neurologic: No headaches. No dizziness. No lightheadedness. EXAM Physical Exam Narrative Exam Narrative: Afebrile. Vital signs noted. Nontoxic-appearing. Cardiovascular examination reveals a regular rate and rhythm. Lungs are clear to auscultation bilaterally. Abdomen is soft and nontender without guarding or rebound. Questionable tenderness to percussion right CVA. Positive bowel sounds. Neurological examination nonfocal and nonlateralizing. Seen ambulating to the ED room without difficulty. Const Vital Signs: 09/04/24 14:41 09/04/24 14:47 Temperature 96.3 F L Temperature Source Temporal Pulse Rate 58 L Respiratory Rate 16 Respiratory Effort Normal Non-Labored Respiratory Pattern Normal Blood Pressure 168/108 H Blood Pressure Mean 128 Pulse Ox 100 Oxygen Delivery Method Room Air MDM MDM MDM Narrative Medical decision making narrative: Differential diagnosis includes but not limited to pyelonephritis versus ureterolithiasis as a cause of her right flank pain. Additionally, she may havemore of an upper respiratory infection or bronchitis versus pneumonia. She is status post cholecystectomy so I doubt acute cholecystitis. She had right flanksymptoms for 1 week prior to her becoming sick over the last 1 to 2 days. I reviewed her laboratory work and she has normal white count of 6.7 with hemoglobin 12.8, hematocrit 37.3, platelet count normal at 324. AST is slightlyelevated at 33 with ALT 47 which I think is nonspecific, normal alk phos. Urinalysis obtained and is negative for infection. I do not feel antibiotics are indicated. Negative ketones. Lipase normal at 51 so I doubt pancreatitis. As there is no blood or infection in her urine, I doubt ureterolithiasis as a source of her flank pain. I reviewed the radiology report of the CT of the abdomen and pelvis without contrast and there is no acute process, no hydronephrosis, no obstructive uropathy. Chest x-ray in 1 view interpreted by myself independently shows no evidence of pneumonia or pneumothorax. I reviewedthe radiology report which confirms my independent interpretation. Patient had been given a dose of morphine and requested something for nausea so she was administered Zofran 4 mg ODT. At this point in time, as her respiratoryswabs are negative for COVID, influenza, and RSV I do not feel that she requiresan antiviral. Treatment will continue to be symptomatic with lkdv-nzx-[id number] medications as needed for pain. She may be having more of a different type of viral syndrome. I do not feel she requires observation or admission. Return instructions to the emergency department were reviewed. Disposition is discharged home in stable condition. History & Record Review Discussion w/independent historian: Patient Lab Data Attestation: I reviewed the patient's lab results. Labs: Laboratory Results - last 24 hr 09/04/24 09/04/24 15:05 15:08 WBC 6.7 RBC 4.10 L Hgb 12.8 Hct 37.3 MCV 91.0 MCH 31.2 MCHC 34.3 RDW Std Deviation 41.1 RDW Coeff of Bibi 12.5 Plt Count 324 MPV 8.6 Immature Gran % (Auto) 0.100 Neut % (Auto) 44.1 L Lymph % (Auto) 46.3 H Gilmer % (Auto) 5.8 Eos % (Auto) 3.3 Baso % (Auto) 0.4 Absolute Neuts (auto) 3.0 Absolute Lymphs (auto) 3.11 Nucleated RBC % 0 Sodium 139 Potassium 4.1 Chloride 106 Carbon Dioxide 23.0 Anion Gap 10 BUN 16 Creatinine 1.00 Estim Creat Clear Calc 75.99 Est GFR (MDRD) Non-Af 70 BUN/Creatinine Ratio 16.2 Glucose 92 Calcium 9.2 Total Bilirubin 0.26 AST 33 H ALT 47 H Alkaline Phosphatase 86 Total Protein 7.3 Albumin 4.2 Globulin 3.0 Albumin/Globulin Ratio 1.4 Lipase 51 Urine Color Yellow Urine Clarity Clear Urine pH 6.0 Ur Specific [place] 1.020 Urine Protein 15 H Urine Glucose (UA) Normal Urine Ketones Negative Urine Occult Blood Negative Urine Nitrite Negative Urine Bilirubin Negative Urine Urobilinogen Normal Ur Leukocyte Esterase Negative Urine RBC 0-5 SEEN Urine WBC 0-5 SEEN Ur Squamous Epith Cells 5-10 SEEN Urine Bacteria 1+ Urine Mucus 0 SEEN Radiography Diagnostic Testing: Clinical Impression(s) from Imaging Studies Abdomen/Pelvis CT 09/04/24 14:57 IMPRESSION: No evidence of an obstructive uropathy. Status post hysterectomy and cholecystectomy. One or more dose reduction techniques were used (e.g., Automated exposure control, adjustment of the mA and/or kV according to patient size, use of iterative reconstruction technique). Reading Location: [place] [address] Chest X-Ray 09/04/24 15:25 IMPRESSION: No active cardiopulmonary disease. Reading Location: [place] [address] Discharge Plan Triage Chief Complaint: General Illness ED Provider: Eulogio Acuña Dx/Rx/DC Orders Clinical Impression: Flank pain, Shortness of breath Instructions: ED Dyspnea, ED Flank Pain, Uncertain Cause, ED Pain, Acute, Uncertain Cause Prescriptions: No Action pantoprazole 40 mg tablet,delayed release (DR/EC) 40 mg PO DAILY amlodipine 5 mg tablet 5 mg PO DAILY Eliquis 5 mg tablet 5 mg PO BID carvedilol 3.125 mg tablet 1.5625 mg PO DAILY oxycodone 5 mg tablet 5 mg PO Q6H PRN (Reason: pain) 3 Days Qty: 12 0RF tramadol 50 mg tablet 50 mg PO Q6H PRN PRN (Reason: Pain) 3 Days Qty: 12 0RF carvedilol 25 mg tablet 25 mg PO DAILY ondansetron 8 mg tablet,disintegrating 8 mg PO TID PRN PRN (Reason: nausea and vomiting) esomeprazole magnesium 40 mg capsule,delayed release(DR/EC) 40 mg PO DAILY loratadine [Allerclear] 10 mg tablet 10 mg PO DAILY Qty: 30 0RF Primary Care Provider: Dwayne Stephens Referrals: Dwayne Stephens MD [Primary Care Provider] - 1 Week if not improving Activity Restrictions/Additional Instructions: Continue your mvks-xlr-wzhgvlg medications as needed for pain. Return with increased difficulty breathing, new or worsening symptoms. Print Language: Maori Disposition Disposition: Home, Self Care What to do if you have Problems For any increased pain, shortness of breath, bleeding, nausea or vomiting, chestpain, or any unexpected problems, contact your Primary Care Provider. Call [facility] ([phone]) or report to the closest Emergency Room. Call 911 if necessary. 09/04/24 1621 <Electronically signed by Eulogio Acuña MD> Cosigner Signature (if applicable): CC: Dr. Dwayne Stephens MD ~ Signed [facility] Work Phone: [phone] Radiology Diagnostic study note [facility] Imaging Services [address] [place] [address] Lumbar Spine 2 or 3 Views MR#: [id number] Acct: [id number] Name: DAMARI RIOS Rep #: [id number] : 1975 F 48 From: Stefania Griggs MD PCP: Dr. Dwayne Stephens MD Status: REG CL I Study:Lumbar Spine 2 or 3 Views Date of Exam: 08/29/24 Exam# [id number] Ordering Dr: Adelina Stepehns MD PROCEDURE: LUMBAR SPINE 2 OR 3 VIEWS REASON FOR EXAM: Sciatica of right leg TECHNIQUE: 3 view(s) of the lumbar spine COMPARISON: None. FINDINGS: Normal lumbar vertebral heights. No evidence of fracture. Mild multilevel disc space narrowing. Moderate facet arthropathy. Normal alignment. No spondylolisthesis. RAD/Lumbar Spine 2 or 3 Views IMPRESSION: Degenerative changes in the lumbar spine with no acute abnormality. Reading Location: [facility] CC: Dr. Dwayne Stephens MD ~ General Store Manager: Signed [facility]01-17-2025 NoteHNO ID: [id number] Author: ARNULFO SANCHEZ APRN.SOUND RECORDIST Service: ? Author Type: Nurse Practitioner Type: Progress Notes Filed: 07/18/2024 14:44 Note Text: CC: Patient presents with: Cough: Congestion, R ear pain, PACHECO, ST x1 week HPI: Damari Rios is a 48 year old female who presents to the office with complaint of head congestion, cough, nonproductive, and sore throat for a week. Symptoms are staying the same. Associated symptoms includes ear pain. Denies nausea, vomiting , and diarrhea. Treatments tried include nothing so far. with no relief of symptoms. Sick contacts: unknown. History of asthma, frequent episodes of bronchitis, chronic bronchitis, bronchiectasis or COPD: No Smoker: No Seasonal/environmental allergies: No The ROS is otherwise negative. The patient's pmh, medications, allergies, and past visits are reviewed. PHYSICAL EXAM: BP 139/90 Pulse 63 Temp 36.4 ?C (97.6 ?F) Resp 18 Wt 85.7 kg (188 lb 15 oz) LMP 07/24/2016 (Approximate) SpO2 98% BMI 32.43 kg/m? General appearance: alert, cooperative, pleasant, in no acute distress Head: Normocephalic Eyes: EOM's intact, conjunctiva pink and moist, no icterus, sclera white, non-injected Ears: Right ear: External ear/canal- Normal, TM - erythema and bulging. Left ear: External ear/canal- Normal, TM - clear with good landmarks Oropharynx:moist without lesions, No erythema, exudates or tonsillar hypertrophy. Heart: Negative. RRR without obvious murmur, gallop, or rubs. No ectopy. Lungs: clear to auscultation, without rales or wheeze, good air exchange PAST MEDICAL HISTORY Diagnosis Date Abdominal pain Bipolar I disorder, most recent episode (or current) unspecified Calculus of bile duct without mention of cholecystitis, with obstruction Calf pain Gastric ulcer GERD (gastroesophageal reflux disease) HTN (hypertension) Hypokalemia Irritable bowel syndrome Kidney stone Known health problems: none 04/04/2021 Other and unspecified ovarian cyst Other cholecystitis Pulmonary embolism (HCC) Restless leg Seasonal allergies Temporomandibular joint disorders, unspecified Unspecified [...] LS SLING 2022 TONSILLECTOMY PRIMARY/SECONDARY Tonsillectomy ALLERGIES Bee Venom Protein (Honey Bee), Penicillins, Bactrim [Sulfamethoxazole-Trimethoprim], Ultram [Tramadol Hcl], and Naprosyn [Naproxen] MEDICATIONS azithromycin (ZITHROMAX) 250 mg tablet Take 2 tablets by mouth once daily for 1 day, THEN 1 tablet once daily for 4 days. cyclobenzaprine (FLEXERIL) 5 mg tablet Take 5 mg by mouth three times a day. dicyclomine (BENTYL) 20 mg tablet Take 20 mg by mouth. EPINEPHrine (EPIPEN) 0.3 mg/0.3 mL auto-injector EPINEPHrine 0.3 mg/0.3 mL injection syringe Use as directed for bee sting 0 08/08/2019 Active HYDROcodone-acetaminophen (NORCO) 5-325 mg per tablet EVERY 4 HOURS NEEDED as needed for Pain ondansetron orally disintegrating (ZOFRAN ODT) 4 mg disintegrating tablet EVERY 8 HOURS NEEDED as needed for Nausea predniSONE (DELTASONE) 10 mg tablet Take by mouth. rOPINIRole (REQUIP) 0.25 mg tablet AT BEDTIME NEEDED as needed for restless legs amLODIPine (NORVASC) 5 mg tablet Take 1 [...] (Lupus) Other niece other (lupus) Other Anesthesia P (more content not included)...[facility]01-17-2025 History of Present illness Narrative* Arnulfo Sanchez APRN.[facility] - 07/18/2024 2:32 PM EST CC: Patient presents with: Cough: Congestion, R ear pain, PACHECO, ST x1 week HPI: Damari Rios is a 48 year old female who presents to the office with complaint of head congestion, cough, nonproductive, and sore throat for a week. Symptoms are staying the same. Associated symptoms includes ear pain. Denies nausea, vomiting , and diarrhea. Treatments tried include nothing so far. with no relief of symptoms. Sick contacts: unknown. History of asthma, frequent episodes of bronchitis, chronic bronchitis, bronchiectasis or COPD: No Smoker: No Seasonal/environmental allergies: No The ROS is otherwise negative. The patient's pmh, medications, allergies, and past visits are reviewed. PHYSICAL EXAM: BP 139/90 Pulse 63 Temp 36.4 C (97.6 F) Resp 18 Wt 85.7 kg (188 lb 15 oz) LMP 07/24/2016 (Approximate) SpO2 98% BMI 32.43 kg/m General appearance: alert, cooperative, pleasant, in no acute distress Head: Normocephalic Eyes: EOM's intact, conjunctiva pink and moist, no icterus, sclera white, non-injected Ears: Right ear: External ear/canal- Normal, TM - erythema and bulging. Left ear: External ear/canal- Normal, TM - clear with good landmarks Oropharynx:moist without lesions, No erythema, exudates or tonsillar hypertrophy. Heart: Negative. RRR without obvious murmur, gallop, or rubs. No ectopy. Lungs: clear to auscultation, without rales or wheeze, good air exchange PAST MEDICAL HISTORY Diagnosis Date Abdominal pain Bipolar I disorder, most recent episode (or current) unspecified Calculus of bile duct without mention of cholecystitis, with obstruction Calf pain Gastric ulcer GERD (gastroesophageal reflux disease) HTN (hypertension) Hypokalemia Irritable bowel syndrome Kidney stone Known health problems: none 04/04/2021 Other and unspecified ovarian cyst Other cholecystitis Pulmonary embolism (HCC) Restless leg Seasonal allergies Temporomandibular joint disorders, unspecified Unspecified [...] TONSILLECTOMY PRIMARY/SECONDARY <AGE 13 2000 Tonsillectomy ALLERGIES Bee Venom Protein (Honey Bee), Penicillins, Bactrim [Sulfamethoxazole- Trimethoprim], Ultram [Tramadol Hcl], and Naprosyn [Naproxen] MEDICATIONS azithromycin (ZITHROMAX) 250 mg tablet Take 2 tablets by mouth once daily for 1 day, THEN 1 tablet once daily for 4 days. cyclobenzaprine (FLEXERIL) 5 mg tablet Take 5 mg by mouth three times a day. dicyclomine (BENTYL) 20 mg tablet Take 20 mg by mouth. EPINEPHrine (EPIPEN) 0.3 mg/0.3 mL auto-injector EPINEPHrine 0.3 mg/0.3 mL injection syringe Use asdirected for bee sting 0 08/08/2019 Active HYDROcodone-acetaminophen (NORCO) 5-325 mg per tablet EVERY 4 HOURS NEEDED as needed for Pain ondansetron orally disintegrating (ZOFRAN ODT) 4 mg disintegrating tablet EVERY 8 HOURS NEEDED as needed for Nausea predniSONE (DELTASONE) 10 mg tablet Take by mouth. rOPINIRole (REQUIP) 0.25 mg tablet AT BEDTIME NEEDED as needed for restless legs amLODIPine (NORVASC) 5 mg tablet Take 1 [...] Inhale 2 Puffs as instructed two times aday. pantoprazole DR (PROTONIX) 40 mg tablet Take [...] Never Smokeless tobacco: Never Vaping Use Vaping status: Never Used Substance Use Topics Alcohol use: Yes Comment: very rare- maybe 2x/ year Drug use: No ASSESSMENT/PLAN: 1. Acute otitis media, right - ICD9: 382.9, ICD10: H66.91 - AZITHROMYCIN 250 MG TABLET Prescription instructions reviewed with patient as applicable. Potential red flag symptoms discussed with the patient. Reviewed appropriate action plan to take if red flag symptoms occur. Patient agreeable to treatment plan. Arnulfo Sanchez APRN.SOUND RECORDIST documented in this encounterMer[facility]12[facility]28-[facility]12-28[facility] Evaluation note* Diagnosis Onset Date Resolution Status Admit Date Flank pain acute June 28, 2024 3:08am Nausea acute June 28, 2024 3:08am Urinary tract infection acute D ec2023 3:08am Pyelonephritis resolved June 022023 3:08am [facility] Work Phone: 1(322) 232-169112-08-2024 [facility]12-07-2024 Evaluation note* Diagnosis Onset Date Resolution Status Admit Date Hydronephrosis with renal calculous obstruction acute June 072023 5:01pm Nausea acute June 07, 2024 5:01pm Acute flank pain resolved June 07, 2024 5:01pm Flank pain acute June 28, 2024 3:08am Nausea acute June 28, 2024 3:08am Urinary tract infection acute D ec2023 3:08am Pyelonephritis resolved June 022023 3:08am [facility] Work Phone: 1(199) 365-590511-07-2024 [facility]11-06-2024 Evaluation note* Diagnosis Onset Date Resolution Status Admit Date Left ovarian cyst acute 2023 2:33pm Pelvic pain acute May 07, 2024 2:33pm Hydronephrosis with renal calculous obstruction acute June 072023 5:01pm Nausea acute June 07, 2024 5:01pm Acute flank pain resolved June 07, 2024 5:01pm Flank pain acute June 28, 2024 3:08am Nausea acute June 28, 2024 3:08am Urinary tract infection acute D ecember 2023 3:08am Pyelonephritis resolved June 022023 3:08am [facility] Work Phone: 1([phone]) 407-981104-22-2024 NoteHNO ID: [id number] Author: NAIF LAGUERRE MD Service: ? Author Type: Physician Type: [...] fever, or progressive weakness or numbness. Naif Laguerre, [facility]04-22-2024 History of Present illness Narrative* Naif Laguerre MD - 10/22/2023 1:05 PM EDT Patient presents with: Back Pain: right low [...] Inhale 2 Puffs as instructed two times aday. pantoprazole DR (PROTONIX) 40 mg tablet Take [...] fever, or progressive weakness or numbness. Naif Laguerre MD documented in this encounterMercy [facility]04-09-2024 Instructions* Patient Instructions* Roland Sainz APRN.SOUND RECORDIST - 10/09/2023 9:05 AM EDT ASSESSMENT/PLAN: 1. [...] Additionally, you can prime your body's immune system.This may help you get better more quickly. Drink lots of fluids Make sure you are eating well Get plenty of rest We do not have any medications that kill off these viruses. Antibiotics are used to treat bacterialinfections; however, they are not active against viral infections. There are some things that mighthelp you feel better, though. Vaporizers, humidifiers, hot showers, and hot fluids help open respiratory and sinus passages [place] [facility] [place] may offer relief of nasal and head [...] worse rather than better documented in this encounterMercy [facility]04-09-2024 NoteHNO ID: [id number] Author: ROLAND SAINZ APRN.SOUND RECORDIST Service: ? Author Type: ? Type: Progress [...] No discharge. Left eye: (more content not included)...[facility]04-09-2024 History of Present illness Narrative* Destiny Scruggs - 10/09/2023 8:56 AM EDT Subjective Sore Throat Associated symptoms include congestion, [...] Inhale 2 Puffs as instructed two times aday. pantoprazole DR (PROTONIX) 40 mg tablet Take [...] molecular testing negative ALBINA Loera TEACHING PROVIDER (Physician/PA/[employer]) NOTE OF PERSONAL INVOLVEMENT IN CARE: I have personally seen and examined the patient and performed the medical decision-making components. I have reviewed the Advanced Practice Registered Nurse ([employer]) Student's documentation and verified the findings in the note as written. Any additions or changes are noted in bold/italics. Signature: Roland Sainz Date: 10/09/2023 Time: 9:13 AM documented in this encounterMercy Health [facility] Hospital03-30-2024 NoteHNO ID: [id number] Author: COLLEEN CISNEROS PA-C Service: ? Author Type: Physician Insurance Billing Clerk Type: Progress Notes Filed: 09/29/2023 09:17 Note [...] at this point. Patient will go to [facility] ED.[facility]03-25-2024 Miscellaneous Notes* Telephone Encounter - Elizabeth Vergara MA - 09/24/2023 8:52 AM EDT Our practice is closed, no longer accepting any patients. She has not see Dr. Asher since 2014and she no showed 3 times within that year. Elizabeth Vergara MA * Telephone Encounter - Janette Santa - 09/22/2023 9:18 AM EDT Pt is previous pt of Lb, wondering if she can reestablish as she has recently moved back [facility]. Please review and advise. Janette Santa September 22, 2023 9:26 AM documented in this encounterMercy Health Anderson Hospital03-23-2024 Miscellaneous Notes* Telephone Encounter - Tammy Flynn MA - 09/22/2023 9:35 AM EDT Patient notified of results, verbalized understanding of instructions given. Tammy Flynn MA * Telephone Encounter - Justyn Maldonado APRN.BEN - 09/22/2023 9:24 AM EDT Radiologist read no acute fractures on x-ray. I would recommend continue wearing splint over the next 5 to 7 days for comfort measures. Follow-up with PCP if symptoms or not improving. Justyn Maldonado APRN.BEN documented in this encounterMercy Health Anderson Hospital03-23-2024 History of Present illness Narrative* Levy Elias RT(R) - 09/22/2023 8:50 AM EDT Radiology Service Progress Note PATIENT [...] PATIENT PRESENTS WITH AN IMPLANTABLE OR ATTACHED DIGITAL MARKETING EXECUTIVE: No RADIOLOGY DEPARTMENT: General X-ray: Exam(s) Completed: Upper Extremity X- Ray(s): Fingers/Thumb, right PERIPHERAL IV DATA: Not applicable SIGNED BY: RT Shruthi(R) September 22, 2023 8:54 AM documented in this encounterMercy Health Anderson Hospital03-23-2024 NoteHNO ID: [id number] Author: LEVY ELIAS RT(R) Service: Radiology Author [...] PATIENT PRESENTS WITH AN IMPLANTABLE OR ATTACHED DIGITAL MARKETING EXECUTIVE: No RADIOLOGY DEPARTMENT: General X-ray: Exam(s) Completed: Upper Extremity X-Ray(s): Fingers/Thumb, right PERIPHERAL IV DATA: Not applicable SIGNED BY: RT Shruthi(R) September 22, 2023 8:54 [facility]03-23-2024 NoteHNO ID: [id number] Author: JUSTYN MALDONADO APRN.SOUND RECORDIST Service: ? Author Type: Nurse Practitioner Type: [...] Pain is increased by movement or palpation. [id number]. No surgeries or fractures in the past. [...] XR DIGIT GENERAL 3V (more content not included)...[facility] 09-22-2023 History of Present illness Narrative* Justyn Maldonado APRN.[facility] - 09/22/2023 8:40 AM EDT Images from the original note were not [...] Pain is increased by movement or palpation. [id number]. No surgeries or fractures in the past. [...] Inhale 2 Puffs as instructed two times aday. pantoprazole DR (PROTONIX) 40 mg tablet Take [...] of care. This note was generated using Hub[employer] software. It may contain errors in wording, punctuation, or spelling. Justyn Maldonado APRN.SOUND RECORDIST documented in this encounterMercy Health [facility]02-17-2024 NoteHNO ID: [id number] Author: DEMETRICE DELGADO RN Service: Care Management Author Type: Registered [...] patient home. No skilled needs. SIGNATURE: Demetrice Delgado RN PATIENT NAME: Damari Rios DATE: August 18, 2023 TIME: 1:29 PM CONTACT #: [phone] NoteHNO ID: [id number] Author: ZAINAB CROFT MD Service: Hospital Medicine [...] reviewed for today's visit: CBC: Recent Labs 08/17/23 0919 WBC 9.64 RBC 4.35 HB 13.6 HCT 38.8 PLT 286 MCV 89.2 MCH 31.3 MPV 8.5* Coags: Recent Labs 08/17/23 1253 APTT 68.0* BMP: Recent Labs 08/17/23 0919 NA 137 K 4.1 CHLOR 106* CO2 19* BUN 15 CREAT 0.96 GLUC 119* Cardiac Enzymes: No results for input(s): CK, MB, CKMB, TROPT in the last 24 hours. Liver Function, Amylase, Lipase: Recent Labs 08/17/23 0919 TPROT 7.2 ALB 4.1 ALT 17 AST 14 ALKPHOS 81 TBILI 0.3 MG/PHOS: No results for input(s): MG, P in the last 24 hours. ABG's: No results for input(s): PH, PCO2, PO2, BE, HCO3, CO2CT, O2HB, COHB, MHGB, TEMP, PHTC, PCO2T, PO2T, O2AD in the last 24 hours. Recent diagnostic tests reviewed. ASSESSMENT AND PLAN Active Hospital Problems Chest pain [R07.9] Foreign body in lung [T17.808A] S/p bronchoscopic retrieval. Abdominal pain being well for GI. Approaching discharge, likely discharge tomorrow SIGNATURE: Zainab Croft MD DATE: August 17, 2023 TIME: 8:18 PM[facility]02-16-2024 NoteHNO ID: [id number] Author: SULLY ONEILL PA-C Service: Pulmonary Disease Author Type: Physician Insurance Billing Clerk Type: Progress Notes Filed: 08/17/2023 11:49 Note [...] (Oral) Resp 18 Ht 162.6 cm (5' 4) Wt 73.5 kg (162 lb) LMP 07/24/2016 [...] not displayed. Plan above discussed with staff Nutrition And Dietetics Instructor Dr. Wynn ~~~~~~~~~~~~~~~~~~~~~~~~~~~~~~~~~~~~~~~~~~~~~~~~~~~~~ Sully Oneill PA-C [facility] Pager: [phone] NoteHNO ID: [id number] Author: SUMANTH ESCALANTE RN Service: Care Management [...] 17, 2023 TIME: 10:49 AM PAGER/CONTACT #: [phone]02-15-2024 NoteHNO ID: [id number] Author: ZAINAB CROFT MD Service: Hospital Medicine [...] APTT 40.2* BMP: No results for input(s): NA, K, CHLOR, CO2, BUN, CREAT, GLUC in the last 24 hours. Cardiac Enzymes: No results for input(s): CK, MB, CKMB, TROPT in the last 24 hours. Liver Function, Amylase, Lipase: No results for input(s): TPROT, ALB, ALT, AST, ALKPHOS, TBILI, AMYLASE, LIPASE, LACTATE in the last 24 hours. MG/PHOS: No results for input(s): MG, P in the last 24 hours. ABG's: No results for input(s): PH, PCO2, PO2, BE, HCO3, CO2CT, O2HB, COHB, MHGB, TEMP, PHTC, PCO2T, PO2T, O2AD in the last 24 hours. Recent diagnostic tests reviewed. ASSESSMENT AND PLAN Active Hospital Problems Chest pain [R07.9] Foreign body in lung [T17.808A] Pulm embolism Case management following for discharge considerations SIGNATURE: Zainab Croft MD DATE: August 16, 2023 TIME: 3:50 PMMount [facility] Hospital02-15-2024 NoteHNO ID: [id number] Author: TOBIN DUDLEY APRN.BRUSH SANDER Service: ? Author Type: Nurse Admissions Representative Type: Anesthesia Procedure Notes Filed: 08/16/2023 15:31 Note Text: ANESTHESIOLOGY PROCEDURE NOTE Airway General Information Procedure Start Time/Medication Administration: 08/16/2023 3:18 PM Patient location during procedure: OR Timeout Performed Pre-procedure: timeout performed Patient identity confirmed: arm band, care steamer gum candy and patient Staffing Anesthesiologist: Chito Sutton MD BRUSH SANDER: Tobin Dudley APRN.BRUSH SANDER Performed by: WEI Indications and Patient Condition Indications for airway management: anesthesia Preoxygenated: yes anesthesia circuit Patient position: sniffing Method: asleep Cricoid Pressure: No Manual In-Line Stabilization: No Difficult Mask: No Final Airway Details Final airway type: endotracheal airway Final Endotracheal Airway: ETT Cuffed: yes Successful intubation technique: video laryngoscopy Devices used: Tiragiu Endotracheal tube insertion site: oral Blade size: #3 ETT size (mm): 8.5 Measured from: lips Measurement (cm): 22 Placement verified by: bronchoscopy and capnometry Cormack-Lehane Classification: grade I - full view of glottis Number of attempts at approach: 1 Failed airway: no Unrecognized esophageal intubation: no Airway not difficult SIGNATURE: Tobin Dudley APRN.BRUSH SANDER PATIENT NAME: Damari Rios DATE: August 16, 2023 TIME: 3:29 PM CSN: [id number] [facility]acon[facility]02-15-2024 NotePatient Name: Damari Rios Procedure Date: 08/16/2023 2:56 PM Date of : 1975 Admit Type: Outpatient Age: 47 Gender: Female Note Status: Finalized Procedure: Bronchoscopy Indications: Foreign body retrieval Providers: Mynor Lynn MD (Doctor) Referring MD: Requesting Physician: Marysol Wynn MD Patient Profile: This is a 47 [...] physician, the nurse, the anesthesiologist and the wood grinder operator in the procedure room. Mental Status Examination: [...] Procedure Start: 3:23:58 PM Procedure End: 3:45:43 [facility]02-15-2024 NoteHNO ID: [id number] Author: SULLY ONEILL PA-C Service: Pulmonary Disease Author Type: Physician Insurance Billing Clerk Type: Progress Notes Filed: 08/16/2023 09:53 Note [...] room air. Have discussed with nursing and ORTHOPEDIC PHYSICIAN ASSISTANT. ORTHOPEDIC PHYSICIAN ASSISTANT called this morning to confirm transport for [...] (Oral) Resp 18 Ht 162.6 cm (5' 4) Wt 73.5 kg (162 lb) LMP 07/24/2016 [...] 1736 08/15/23 1103 08/15/23 1103 08/15/23 0748 08/14/23 2029 08/14/23 1625 WBC 5.37 -- -- -- -- [...] not displayed. Plan above discussed with staff Nutrition And Dietetics Instructor Dr. Wynn ~~~~~~~~~~~~~~~~~~~~~~~~~~~~~~~~~~~~~~~~~~~~~~~~~~~~~ Sully Oneill PA-C [facility] Pager: [phone] NoteHNO ID: [id number] Author: CATRACHITA FINNEY RN Service: Care Management Author Type: Registered [...] Discharge Plan: Bronchoscopy scheduled for today at [facility], for removal of foreign body. Spoke with [facility], transport set up for 929, she is calling to confirm. Per staff, patient to return following procedure. Current plan to return home with self-care, independent prior to admission. Anticipate no skilled needs or d/c transport. SIGNATURE: Catrachita Finney RN PATIENT NAME: Damari Rios DATE: August 16, 2023 TIME: 8:59 AM PAGER/CONTACT #:[facility]02-14-2024 NoteHNO ID: [id number] Author: RODDY FLANAGAN RN Service: Care Management Author Type: Registered Nurse Type: Care Mgt Initial Assessment Filed: 08/15/2023 14:43 Note Text: CARE MANAGEMENT: ASSESSMENT AND DISCHARGE PLAN SERVICE DATE: August 15, 2023 SERVICE TIME: 2:40 PM PCP: No primary care provider on file. Primary Contact: Extended Emergency Contact Information Primary Emergency Contact: Ysabel Valadez Address: [address] Mobile Relation: Friend Admission Status: Inpatient Insurance Provider: [employer] Discharge Planning requested by: Per Department Practice Potential Transition Plans Home Advance Directives Current Advance Directive: Health Care Power of Card Grinder Helper In Chart: Yes Up To Date and Valid: Yes Current Living Arrangements and Support Lives with: Friends Type of Residence: Private Residence (House) Does the patient have to climb stairs at home?: Yes;stairs outside the home Support: Children, Family members, Friends/neighbors How do you manage to accomplish the following: Independent: Ambulation;Bathe/Shower;Dress;Meals/Meal Prep;Going to the bathroom;Medication Management;Transportation to appointments/community Current Services/Equipment Current Post-Acute Service(s): None Discharge Planning Patient Goal(s): The patient/family expressed post-acute services are not needed at this time. [place] of Choice Explained: [place] of Choice Given: No Reason Not Given: [...] CM to continue to follow. SIGNATURE: Roddy Flanagan RN PATIENT NAME: Damari Rios DATE: August 15, 2023 TIME: 2:40 PM CONTACT #: [phone] History of Present illness Narrative* Lul Chin, [place]-SOUND RECORDIST - 08/06/2023 2:20 PM EST Referred by Dr. Madrid ref. provider found for Hypertension History Of Present Illness: Dear Dr. Weeks, I had the pleasure of meeting Mrs. Brand today at [facility] for evaluation of hypertension. The patient is seen in collaboration with Dr. Veronica. Mrs. Brand is a very pleasant 47 year old female with a history of HTN, fibromyalgia, astthma, GERD and PE (06/2023), she denies history of smoking. Family history of HTN, and CAD. She has had difficulty controlling her blood pressure. She was admitted in June 2023 with a PE at [facility], echocardiogram showed a preserved LV function. Heart [...] Asthma, Colon polyp, COPD (chronic obstructive pulmonary disease)([facility]), Dysfunctional uterine bleeding, GERD (gastroesophageal reflux disease), [...] Bee venom protein (honey bee), Penicillins, Naproxen, Sulfamethoxazole- trimethoprim, and Tramadol hcl Outpatient Medications: Current Outpatient [...] a history of asthma, HTN, and GERD, recentlyadmitted to [facility] 06/2023 with PE. She had a heart [...] care, please call with any questions NASREEN Trinidad documented in this encounterTri[facility] Work Phone: 1(451) 744-664902-05-2024 Instructions* Patient Instructions* NASREEN Trinidad - 08/06/2023 2:20 PM EST CALL WITH ANY QUESTIONS HEART MONITOR FOR TWO WEEKS START AMLODIPINE 5 MG DAILY FOLLOW UP IN TWO MONTHS documented in this encounterTriHealth [facility] Work Phone: 1(369) 711-671401-02-2024 History of Present illness Narrative* Blayne Weeks MD - 07/03/2023 3:00 PM EST Subjective Patient ID: Damari Rios is a [...] urine volume, dyspareunia, dysuria, flank pain, hematuria andurgency. Musculoskeletal: Negative for arthralgias, back pain, gait [...] C (97.1 F) Ht 1.626 m (5' 4) Wt 77.6 kg (171 lb) LMP 07/01/2017 [...] 20-valent (PREVNAR 20) (Completed) documented in this [facility] Work Phone: 1(836) 134-169612-11-2023 NoteHNO ID: [id number] Author: Gerry (i-Nalysis)Shyam Service: Pharmacy Author Type: ? Type: Plan of Care Filed: 06/11/2023 4:49 PM Note Text: The following medications were delivered to the patient: ELIQUIS 5 mg tab(s) Generic drug: apixaban Take 1 tablet by mouth two times a day. tamsulosin 0.4 mg Commonly known as: FLOMAX Take 1 capsule by mouth once daily. 30 minutes after the same meal each day. Shyam Garrett (i-Nalysis) PAGER: discharge pharmacy vocera June 11, 2023 4:49 PM[facility]12-11-2023 NoteHNO ID: [id number] Author: Sumanth Greene RN Service: Care Management [...] Physician Primary Care Physician Name/Phone: Dr. Kimberly Cason sent summary of care Additional Information: none Discharge Information Row Name ED to Hosp-Admission (Current) from 06/01/[address] Medical Follow-Up Appointment Specialty Medline: Free [...] 11, 2023 TIME: 3:50 PM CONTACT #: [phone] NoteHNO ID: [id number] Author: Zainab Croft V, MD Service: General [...] (Oral) Resp 18 Ht 162.6 cm (5' 4) Wt 73.5 kg (162 lb) LMP 07/24/2016 [...] salpingo-oophorectomy and urethral sling at [facility] - SOCIAL SERVICES COUNSELOR- OP f/u Bipolar dx Mild Protein-Calorie Malnutrition DVT prophylaxis: AC D/c planning Megan Joshua APRN.SOUND RECORDIST June 11, 2023[facility]12-11-2023 NoteHNO ID: [id number] Author: Adriana Shelby APRN.CNP Service: Clinical Cardiology [...] June 11, 2023 TIME: 11:12 AM CONTACTING [facility] CARDIOV[facility]ULAR [facility]ICINE: Team A: (M-F 8:00 am - 5:00 pm) Sheela Mishra Scharfstein, Sparano, Vekstein, Wiseman, Gupta, Rogers - PAGE [phone] Team B: (M-F 8:00 am - 5:00 pm) Janny Flores Hawwa, Kaminski, Kruithoff, Mattina, Taraben, William, Abdelghany- [place] [phone] Night and Weekend Cardiovascular Medicine (consults, inpatient management questions, transfers, etc.): CALL [phone] (not the physician listed) - All calls triaged via answering service. Please include the patient's name, location, MRN, and 10-digit call-back number.[facility]12-10-2023 NoteHNO ID: [id number] Author: Zainab Croft V, MD Service: Hospital Medicine Author Type: Physician Type: Progress Notes Filed: 06/10/2023 1:48 PM Note Text: PROGRESS NOTE - INTERNAL MEDICINE PATIENT NAME: Damari Riso ADMITTING PHYSICIAN: Zainab Croft V, MD SUBJECTIVE INTERVAL HISTORY OF PRESENT ILLNESS: Requiring any oxygen. Overall feeling better. Blood pressure borderline low, amlodipine discontinued Remains on Eliquis. Pulmonary following. Had some tachycardia when ambulating, will watch her overnight. 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 Dtg is an SILVER SERVICE WAITER, and roommate is an RN. Back to room air. + stress test, Heart cath done today. 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 Restart Eliquis tonight. Having some vague abdominal discomfort. MRI pending. Cardiology pulm examination as noted above. [facility] NoteHNO ID: [id number] Author: Zainab Croft V, MD Service: Hospital [...] output data in the 24 hours ending 06/07/2359 GENERAL: healthy, alert, no distress, cooperative SKIN: [...] APTT 30.0 BMP: No results for input(s): NA, K, CHLOR, CO2, BUN, CREAT, GLUC in the last 24 hours. Cardiac Enzymes: Recent Labs 06/07/23 0448 CK 24* MB <1.0 Liver Function, Amylase, Lipase: No results for input(s): TPROT, ALB, ALT, AST, ALKPHOS, TBILI, AMYLASE, LIPASE, LACTATE in the last 24 hours. MG/PHOS: No results for input(s): MG, P in the last 24 hours. ABG's: No results for input(s): PH, PCO2, PO2, BE, HCO3, CO2CT, O2HB, COHB, MHGB, TEMP, PHTC, PCO2T, PO2T, O2AD in the last 24 hours. Recent [...] MD DATE: June 07, 2023 TIME: 5:08 [facility]12-07-2023 NoteHNO ID: [id number] Author: Adriana Shelby APRN.CNP Service: Clinical Cardiology Author Type: Nurse Practitioner Type: Progress Notes Filed: 06/07/2023 9:12 AM Note Text: CONSULT PROGRESS NOTES CARDIOVASCULAR MEDICINE [facility] Patient Name: Damari Rios SERVICE DATE: 06/07/2023 [...] exacerbation L2 lesion noted on CT Schedule [facility] with Dr. Greene. NPO p MN Send Lipid panel Echo pending Continue current meds for HTN Hold Eliquis, place on Heparin gtt in preparation for [facility] tomorrow Assessment and Recommendations discussed and collaborated [...] (Oral) Resp 20 Ht 162.6 cm (5' 4) Wt 73.5 kg (162 lb) LMP 07/24/2016 [...] imaging Most recent EKG SIGNATURE: Adriana Shelby APRN.SOUND RECORDIST DATE: June 07, 2023 TIME: 9:09 AM CONTACTING [facility] CARDIOVASCULAR MEDICINE: Team A: (M-F 8:00 am - 5:00 pm) Sheela Mishra Scharfstein, Sparano, Vekstein, Wiseman, Gupta, Rogers - [place] [phone] Team B: (M-F 8:00 am - 5:00 pm) Janny Flores Hawwa, Kaminski, Kruithoff, Mattina, Taraben, William, Abdelghany- [place] [phone] Night and Weekend Cardiovascular Medicine (consults, inpatient management questions, transfers, etc.): CALL [phone] (not the physician listed) - All calls triaged via answering service. Please include the patient's name, location, MRN, and 10-digit call-back number.[facility]12-07-2023 History of Present illness Narrative* Main Reed MD - 06/07/2023 9:20 AM EST CHIEF COMPLAINT: Virtual FUV UDS test results [...] Asthma, Colon polyp, COPD (chronic obstructive pulmonary disease)(CMS/HCC), Dysfunctional uterine bleeding, GERD (gastroesophageal reflux disease), [...] months Main Reed MD documented in this [facility] Work Phone: [phone] NoteHNO ID: [id number] Author: Zainab Croft V, MD Service: Hospital [...] ?C (97.3 ?F) Oral 64 16 -- 12/06/23 1546 120/75 36.3 ?C (97.3 ?F) Oral [...] MPV 8.6* Coags: No results for input(s): PT, INR, APTT in the last 24 hours. BMP: Recent Labs 06/06/23 0948 NA 139 K 4.2 CHLOR 102 CO2 26 BUN 31* CREAT 1.03* GLUC 100* Cardiac Enzymes: No results for input(s): CK, MB, CKMB, TROPT in the last 24 hours. Liver Function, Amylase, Lipase: Recent Labs 06/06/23 0948 TPROT 7.4 ALB 4.3 ALT 9 AST 10* ALKPHOS 63 TBILI 0.4 MG/PHOS: Recent Labs 06/06/23 0948 MG 2.1 P 4.0 ABG's: No results for input(s): PH, PCO2, PO2, BE, HCO3, CO2CT, O2HB, COHB, MHGB, TEMP, PHTC, PCO2T, PO2T, O2AD in the last 24 hours. Recent diagnostic tests reviewed. ASSESSMENT AND PLAN Active Hospital Problems Other pulmonary embolism without acute cor pulmonale (HCC) [I26.99] Acute respiratory failure with hypoxia (HCC) [J96.01] Chest pain [R07.9] Hypertension [I10] History of pulmonary embolism [Z86.711] Dyspnea [R06.00] SIGNATURE: Zainab Croft MD DATE: June 06, 2023 TIME: 9:10 PM[facility] NoteHNO ID: [id number] Author: Melinda Coello APRN.[facility] Service: Pulmonary Disease Author Type: Nurse Practitioner Type: Plan of Care Filed: 06/06/2023 4:55 PM Note Text: Damari Rios [id number] Attempted to see today, was taken to stress test, on the second attempt was sleeping post procedure Will resume care tomorrow Melinda Coello APRN.[facility]12-06-2023 NoteHNO ID: [id number] Author: Dania Srinivasan RRT Service: ? Author Type: Respiratory Therapist [...] Index Finger 30 -- None NAME: Dania Srinivasan RRT PATIENT NAME: Damari Rios DATE: June 06, 2023 TIME: 10:20 AM Comment: Patient does not require oxygen. Patient reports feeling foggy with activity, requiring periods of rest [id number] Auburn Hospital12-06-2023 NoteHNO ID: [id number] Author: Dania Srinivasan, JERONIMO Service: ? Author Type: Respiratory Therapist Type: Progress Notes Filed: 06/06/2023 10:20 AM Note Text: PULM FUNCTION SMARTBLOCK: Provider: Melinda Coello APRN.CNP Oximetry - Ambulation: [address] [place], [place] [address]12-06-2023 NoteHNO ID: [id number] Author: Sukhjinder Landaverde APRN.CNP Service: Critical Care Author Type: Nurse Practitioner [...] - Consulted cardiology- EKG reviewed per Dr. Sweet - IDAO for stress test per cardiology team - [...] Temp Temp src Pulse Resp SpO2 06/06/23 0719 127/73 36.3 ?C (97.3 ?F) [...] ORAL 2 TIMES DAILY Ordered 06/02/23921 -- 06/02/23929 apixaban 10 mg tab(s) (ELIQUIS) (apixaban tab(s) (ELIQUIS)) See Hyperspace for full Linked Orders Report. 10 mg ORAL 2 TIMES DAILY Given, 06/06 82106/02/23921 06/09/23 0859 06/01/23 2200 vte current anticoag (more content not included)...[facility]12-06-2023 Procedure note* Dania Srinivasan RRT - 06/06/2023 10:19 AM ESTAssociated Order(s): OXIMETRY WITH AMBULATION RESPIRATORY THERAPY OXIMETRY WITH [...] Index Finger 30 -- None NAME: Dania Srinivasan RRT PATIENT NAME: Damari Rios DATE: June 06, 2023 TIME: 10:20 AM Comment: Patient does not require oxygen. Patient reports feeling foggy with activity, requiring periods of rest x2 [facility] History of Present illness Narrative* Dania Srinivasan RRT - 06/06/2023 10:17 AM EST PULM FUNCTION SMARTBLOCK: Provider: Melinda Coello APRN.SOUND RECORDIST Oximetry - Ambulation: 1 documented [facility]-2023 NoteHNO ID: [id number] Author: Zainab Croft V, MD Service: Hospital [...] today's visit: CBC: No results for input(s): WBC, RBC, HB, HCT, PLT, MCV, MCH, MPV, RDW in the last 24 hours. Coags: No results for input(s): PT, INR, APTT in the last 24 hours. BMP: No results for input(s): NA, K, CHLOR, CO2, BUN, CREAT, GLUC in the last 24 hours. Cardiac Enzymes: No results for input(s): CK, MB, CKMB, TROPT in the last 24 hours. Liver Function, Amylase, Lipase: No results for input(s): TPROT, ALB, ALT, AST, ALKPHOS, TBILI, AMYLASE, LIPASE, LACTATE in the last 24 hours. MG/PHOS: No results for input(s): MG, P in the last 24 hours. ABG's: No results for input(s): PH, PCO2, PO2, BE, HCO3, CO2CT, O2HB, COHB, MHGB, TEMP, PHTC, PCO2T, PO2T, O2AD in the last 24 hours. Recent diagnostic tests reviewed. ASSESSMENT AND PLAN Active Hospital Problems Other pulmonary embolism without acute cor pulmonale (HCC) [I26.99] Acute respiratory failure with hypoxia (HCC) [J96.01] Chest pain [R07.9] Hypertension [I10] History of pulmonary embolism [Z86.711] SIGNATURE: Zainab Croft MD DATE: June 04, 2023 TIME: 7:39 PM[facility]12-[facility]-2023 NoteHNO ID: [id number] Author: Sina Emmanuel RN Service: Care Management [...] lives with a roommate. Dtg is an SILVER SERVICE WAITER, and roommate is an RN. Currently on 2L, but normally room air at baseline. Ultrasound lower extremities ordered. Pulm following. SIGNATURE: Sina Emmanuel RN PATIENT NAME: Damari Rios DATE: June 04, 2023 TIME: 2:16 PM PAGER/CONTACT #: Office:[phone] NoteHNO ID: [id number] Author: Adriana Martinez MD Service: Pulmonary Disease [...] June 03, 2023 TIME: 2:09 PM PAGER: [phone] [facility] Hospital12-03-2023 NoteHNO ID: [id number] Author: Zainab Croft V, MD Service: Hospital [...] today's visit: CBC: No results for input(s): WBC, RBC, HB, HCT, PLT, MCV, MCH, MPV, RDW in the last 24 hours. Coags: No results for input(s): PT, INR, APTT in the last 24 hours. BMP: No results for input(s): NA, K, CHLOR, CO2, BUN, CREAT, GLUC in the last 24 hours. Cardiac Enzymes: No results for input(s): CK, MB, CKMB, TROPT in the last 24 hours. Liver Function, Amylase, Lipase: No results for input(s): TPROT, ALB, ALT, AST, ALKPHOS, TBILI, AMYLASE, LIPASE, LACTATE in the last 24 hours. MG/PHOS: No results for input(s): MG, P in the last 24 hours. ABG's: No results for input(s): PH, PCO2, PO2, BE, HCO3, CO2CT, O2HB, COHB, MHGB, TEMP, PHTC, PCO2T, PO2T, O2AD in the last 24 hours. Recent diagnostic tests reviewed. ASSESSMENT AND PLAN Active Hospital Problems Other pulmonary embolism without acute cor pulmonale (HCC) [I26.99] Chest pain [R07.9] Hypertension [I10] History of pulmonary embolism [Z86.711] May need oxygen upon discharge SIGNATURE: Zainab Croft MD DATE: June 03, 2023 TIME: 1:47 PM[facility]12-[facility]-2023 NoteHNO ID: [id number] Author: June Longo RN Service: Care Management [...] will be in discharge paperwork. PCP: Kimberly Cason MD Primary Contact: Extended Emergency Contact Information Primary Emergency Contact: Ysabel Valadez Address: [place] [id number] [facility] Mobile Relation: Friend Admission Status: Inpatient Insurance Provider: [facility] MEDICAID Discharge Planning requested by: Per Department Practice Potential Transition Plans Home Advance Directives Current Advance Directive: Health Care Power of Card Grinder Helper In Chart: Yes Up To Date and Valid: No International Account Representative Attempted to Assist with AD Completion: Yes Action: Education Provided Current Living Arrangements and Support Lives with: Other person(s) (Roommate) Type of Residence: Private Residence (House) Support: Family members, Children How do you manage to accomplish the following: Independent: Ambulation;Bathe/Shower;Dress;Meals/Meal Prep;Going to the bathroom;Medication Management;Transportation to appointments/community Current Services/Equipment Current Post-Acute Service(s): None Discharge Planning Patient Goal(s): Be able to go home, General wellness Merino of Choice Explained: Merino of Choice Given: No Reason Not Given: No placements necessary Caregiver Assessment: Caregiver is ready, willing and able to meet the patient's needs as recommended by the inter-professional team: No Caregiver needed Transport at Discharge: Transportation Arrangements: Car (Daughter to transport) Needs Prior to Discharge: Needs Prior to Discharge: To Be Determined;None Post-Acute Discharge Plan: assistant quality manager called patient at bedside. Explained role of edging machine operator and discharge planning. Pt anticipated returning home, self-care, denies any home going skilled needs at this time, independent prior to admission with ADL's, still drives, lives with a roommate. Stated her Daughter is an SILVER SERVICE WAITER, and roommate is an RN. Pt denies [...] 03, 2023 TIME: 10:38 AM CONTACT #: [phone] NoteHNO ID: [id number] Author: Note, Interface Service: ? Author Type: ? Type: Progress Notes Filed: 06/02/2023 5:57 AM Note Text: Epic Scheduled Downtime: 06/02/2023 1:00:00 AM to 06/02/2023 5:38:00 [facility]11-27-2023 Note* Significant Event - Amanda Oneill RN - 05/28/2023 6:03 PM EST MEDICAATEDD WITH FENTANYL PER BRUSH SANDER [facility]11-27-2023 Note* Significant Event - Amanda Oneill RN - 05/28/2023 6:03 PM EST ESTHER PAD HAS SM AMT RED DRAINAGE PRESEENT [facility] Work Phone: [phone] Miscellaneous Notes* Significant Event - Amanda Oneill RN - 05/28/2023 6:03 PM EST MEDICAATEDD WITH FENTANYL PER BRUSH SANDER * Significant Event - Amanda Oneill RN - 05/28/2023 6:03 PM EST ESTHER PAD HAS SM AMT RED DRAINAGE PRESEENT * Significant Event - Amanda Oneill RN - 05/28/2023 5:49 PM EST C/O HEARTBURN, LIKE SOMETHING STUCK IN MY CHEST-MIDSTERNAL * Significant Event - Amanda Oneill RN - 05/28/2023 5:47 PM EST BLOOD DRAWN FOR TROPONIN * Significant Event - Amanda Oneill RN - 05/28/2023 5:47 PM EST MEDICATED WITH MYLANTA FOR HEARTBURN * Significant Event - Amanda Oneill RN - 05/28/2023 5:46 PM EST EKG DONE * Significant Event - Amanda Oneill RN - 05/28/2023 5:44 PM EST 2ND DOSE OF HYDRALAZINE GIVEN FOR HTN * Significant Event - Amanda Oneill RN - 05/28/2023 5:43 PM EST MEDICATED FOR HTN * Significant Event - Amanda Oneill RN - 05/28/2023 5:41 PM EST VOIDING TRIAL STARTED * Op Note - Main Reed MD - 05/28/2023 1:05 PM EST Midurethral sling, cystoscopy, right oophorectomy Operative Note Date: 05/28/2023 OR Location: [facility] OR Name: Damari Rios, : 1975, Age: 47 y.o., , Sex: female Diagnosis Pre-op Diagnosis * Adnexal mass [N94.89] Post-op Diagnosis * Adnexal mass [N94.89] Procedures Laparoscopic right salpingoophorectomy Mid-urethral sling Surgeons * Main Reed - Primary Resident/Fellow/Other Insurance Billing Clerk: Surgeon(s) and Role: Emma Teran Procedure Summary Anesthesia: General ASA: III Anesthesia Staff: BRUSH SANDER: Jduy De La Fuente APRN-BRUSH SANDER Estimated Blood Loss: 10 mL Intra-op Medications: [...] EXAM Main Reed MD 05/28/2023 1335 Staff: Oracle Ebs Developer: Alisia Gant RN; Nadya Langley RN Relief [...] has been actively warmed in preoperative area. Preopera tive antibiotics have been ordered and given within [...] ligament and completely amputate the ovary and tubeoff of the pelvic sidewall. The specimen was [...] vaginally under the urethra in the vaginal epitheliumand bilaterally in the direction of two periurethral tunnels that were about to be created for the sling. At this point, a 2 cm. sagittal excision was performed vaginally, beginning 1 cm. beneath theurethral meatus. Sharp dissection was carried out bilaterally using Metzenbaum scissors and periurethral tunnels were created bilaterally. A Elliott catheter with a catheter guide was inserted into thebladder. The TVT trocars were passed vaginally and [...] entire procedure. Main Reed documented in this [facility] Work Phone: 1(248) 225-367611-27-2023 Note* Significant Event - Amanda Oneill RN - 05/28/2023 5:49 PM EST C/O HEARTBURN, LIKE SOMETHING STUCK IN MY CHEST-MIDSTERNAL [facility] Work Phone: [phone] 756-805911-27-2023 Note* Significant Event - Amanda Oneill RN - 05/28/2023 5:47 PM EST BLOOD DRAWN FOR TROPONIN [facility] Work Phone: [phone]) 190-342611-27-2023 Note* Significant Event - Amanda Oneill RN - 05/28/2023 5:47 PM EST MEDICATED WITH MYLANTA FOR HEARTBURN [facility] Work Phone: [phone] Note* Significant Event - Amanda Oneill RN - 05/28/2023 5:46 PM EST EKG DONE [facility] Work Phone: [phone]) 249-436311-27-2023 Note* Significant Event - Amanda Oneill RN - 05/28/2023 5:44 PM EST 2ND DOSE OF HYDRALAZINE GIVEN FOR HTN [facility] Work Phone: [phone]) 231-354111-27-2023 Note* Significant Event - Amanda Oneill RN - 05/28/2023 5:43 PM EST MEDICATED FOR HTN [facility] Work Phone: [phone]) 972-442111-27-2023 Note* Significant Event - Amanda Oneill RN - 05/28/2023 5:41 PM EST VOIDING TRIAL STARTED [facility] Work Phone: [phone] Note* Op Note - Main Reed MD - 05/28/2023 1:05 PM EST Midurethral sling, cystoscopy, right oophorectomy Operative Note Date: 05/28/2023 OR Location: [facility] OR Name: Damari Rios, : 1975, Age: 47 y.o., , Sex: female Diagnosis Pre-op Diagnosis * Adnexal mass [N94.89] Post-op Diagnosis * Adnexal mass [N94.89] Procedures Laparoscopic right salpingoophorectomy Mid-urethral sling Surgeons * Main Reed - Primary Resident/Fellow/Other Insurance Billing Clerk: Surgeon(s) and Role: Emma Teran Procedure Summary Anesthesia: General ASA: III Anesthesia Staff: BRUSH SANDER: Judy De La Fuente APRN-BRUSH SANDER Estimated Blood Loss: 10 mL Intra-op Medications: [...] EXAM Main Reed MD 05/28/2023 1335 Staff: [employer] Ebs Developer: Alisia Gant RN; Nadya Langley RN Relief [...] has been actively warmed in preoperative area. Preopera tive antibiotics have been ordered and given within [...] ligament and completely amputate the ovary and tubeoff of the pelvic sidewall. The specimen was [...] vaginally under the urethra in the vaginal epitheliumand bilaterally in the direction of two periurethral tunnels that were about to be created for the sling. At this point, a 2 cm. sagittal excision was performed vaginally, beginning 1 cm. beneath theurethral meatus. Sharp dissection was carried out bilaterally using Metzenbaum scissors and periurethral tunnels were created bilaterally. A Elliott catheter with a catheter guide was inserted into thebladder. The TVT trocars were passed vaginally and [...] scrubbed for the entire procedure. Main Reed [place] Work Phone: [phone] Hospital Discharge instructions* Discharge Instructions* Emma Teran MD - 05/28/2023 12:12 PM [...] from the narcotic medication. documented in this [facility] Work Phone: [phone] 755-324711-27-2023 History and physical note* Emma Teran MD - 05/28/2023 11:42 AM EST History Of Present Illness Damari Rios is [...] on either side and both ureters appear normal.Previously seen cystic mass in R adenxa no [...] 36.7 C (98 F), temperature source Temporal, resp.rate 12, height 1.626 m (5' 4), weight 73.5 kg (162 lb), last menstrual [...] Dispo: home following surgery Emma Teran MD [place] Work Phone: [phone]) 410-985611-27-2023 History and physical note* Emma Teran MD - 05/28/2023 11:42 AM EST History Of Present Illness Damari Rios is [...] on either side and both ureters appear normal.Previously seen cystic mass in R adenxa no [...] 36.7 C (98 F), temperature source Temporal, resp.rate 12, height 1.626 m (5' 4), weight 73.5 kg (162 lb), last menstrual [...] surgery Emma Teran MD [facility] Work Phone: 1(842) 977-676811-21-2023 History of Present illness Narrative* Jana Casey MA - 05/22/2023 8:30 AM EST Damari Rios 47 y.o. female Procedures: Patient referred by Dr. Reed for urodynamics to evaluate urinary incontinence. Dr. Perez was present in office at time of study. Urine was clear for uti today. Pre-uroflow was completedtoday with pvr of 50 ml. Patient did leak on CLPP. Pvr after study was 0 ml. Patient instructed to increase fluids if she has any burning or blood in urine. Patient made aware she may have blood rectally due to abdominal catheter insertion. Patient understood and consented tourodynamics. Patient will follow up with Dr. Reed to review results. 05/22/2023/las documented in this [facility]Tri[facility] Work Phone: [phone]) 957-710110-24-2023 History of Present illness Narrative* Janny Bai MD - 04/24/2023 9:20 AM EDT See report documented in this [facility] Work Phone: [phone]) 363-393610-05-2023 History of Present illness Narrative* Janny Bai MD - 04/05/2023 3:00 PM EDT Subjective Patient ID: Damari Rios is a 47 y.o. female who presents for No chief complaint on file.. HPI This is a 47-year-old female with history of hypertension, S/P cholecystectomy, fibromyalgia, nephrolithiasis, chronic back pain-opioid/NSAIDs use, COPD recent admission to [facility] with pyelonephritis, right renal calculi who came [...] mg) by mouth every 6 hours if needed.,Disp: , Rfl: albuterol (Ventolin HFA) 90 mcg/actuation [...] Sitting) Pulse 73 Ht 1.626 m (5' 4) Wt 73 kg (161 lb) BMI 27.64 [...] GI in 2 months documented in this [facility] Work Phone: 1([phone]) 948-730210-05-2023 Instructions* Patient Instructions* Janny Bai MD - 04/05/2023 3:00 PM EDT EGD for further evaluation Screening colonoscopy Further recommendation as per EGD findings Avoid alcohol, NSAIDs Follow-up with GI in 2 months documented in this encounterTri[facility] Work Phone: 1(371) 244-157609-19-2023 History of Present illness Narrative* Blayne Weeks MD - 03/20/2023 3:00 PM EDT Subjective Patient ID: Damari Rios is a 47 y.o. female who presents for Establish Care and Med Refill. HPI Patient presented to the office to establish care. She also need medication refill. Review of Systems Constitutional: Negative for activity change, appetite change, fatigue, fever and unexpected weightchange. HENT: Negative for dental problem, ear discharge, [...] C (96.9 F) Ht 1.638 m (5' 4.5) Wt 73.9 kg (163 lb) SpO2 97% [...] HFA) 90 mcg/actuation inhaler documented in this encounterTri[facility] Work Phone: [phone]) 513-148509-13-2023 NoteSend Summary: Discharge Summary Providers: Provider RoleProvider Name Farnaz Daniel Konrad Aguirre David PrimaryKousa, Haitham Joseph Note Recipients: Kimberly Cason MD - [id number] [Preferred] Discharge: Summary: Admission Date: .08-Mar-2023 15:36:00 Discharge Date: 14-Mar-2023 Attending Physician at Discharge: Konrad Delgado Admission Reason: Right renal calculi and pyelonephritis(1) Final Discharge Diagnoses: Pyelonephritis, lithiasis, pulmonary edema, right ovarian cystic lesion, hypertension, hypokalemia, GERD with concerns of peptic ulcer disease Procedures: none Condition at Discharge: Satisfactory Disposition at Discharge: .Home Vital Signs: T PRBPMAPSpO2 Value36.81080870/39714% Date/Time03/14 9: 9: 9: 9: 9:59 Range(35.9C - 36.5C ) (53 - 66 ) (17 - 18 ) (142 - 180 )/ (78 - 104 ) (95% - 99% ) Date: Weight/Scale Type:Height: 09-Mar-2023 13:0077.4 kg / tff559.5 cm Physical Exam: Constitutional: Patient is alert. [...] advised to follow-up with her PCP and laborer powerhouse. Overall time spent on discharge was longer [...] of discharge: Full Code Electronic Signatures: Konrad Delgado) (Signed 14-Mar-2023 12:28) Authored: Send Summary, Summary Content, Immunizations, Ongoing Care, DNR Status, Note Completion Last Updated: 14-Mar-2023 12:28 by Konrad Delgado () References: 1. 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 Allergies: [...] Sneezing, Swelling Objective: Objective Information: T PRBPMAPSpO2 [id number]/7897% Date/Time03/08 21: 21: 21: 20:7 21:06 Range(36.3C - 37.1C ) (89 - [...] S2 regular. No murmur, rub or gallop. [place] beat not displaced. Gastrointestinal: Soft, tender in [...] Push Once 7. [place] (more content not included)...[facility]02-22-2023 Evaluation note* Encounter Date Diagnosis Assessment Notes Treatment Notes Treatment Clinical Notes Aug, Encounter for screening mammogram for malignant neoplasm of breast (ICD-10 - Z12.31) Aug, Blood blister (ICD-10 - T14.8XXA) Aug, Anxiety (ICD-10 - F41.9) [facility]. Other 10-25-2022 History of Present illness Narrative* [...] forearm, sequela Plan: I discussed with Ms.. iRos the diagnosis and different treatment options. We discussed observation,further testing, splinting, cortisone injections, surgical intervention, and the risks and benefits of all were clearly outlined. After discussing in detail the patient elects for NMUS and EMG to evaluate the nerves of the arm. RTC after both obtained Aristeo Maldonado PA-C April 25, 2022 8:30 AM [facility]* Encounter Date Diagnosis Assessment [...] up with ortho as scheduled near future. [facility] Other 09-20-2022 Evaluation note* Encounter Date Diagnosis Assessment Notes Treatment Notes Treatment Clinical Notes Mar, Encounter for immunization (ICD-10 - Z23) Patient Educated with: www.cdc.gov/vaccin es/hcp/vis/current -vis.html (www.cdc.gov/vacci ashwini/hcp/vis/curren t-vis.html) Mar, Laceration of forearm, left (ICD-10 - S51.812A) Mar, Other Observation 20 minutes post injection - no side effects [facility] Other 09-15-2022 Hospital Discharge instructions ED Discharge [...] Frankie Gaspar MD ([id number]) - Internal Medicine [facility] 08-30-2022 Evaluation note* Encounter Date Diagnosis Assessment Notes Treatment Notes Treatment Clinical Notes Jan, Bronchitis (ICD-10 - J40) nebulizer and xray today [facility] Other 08-30-2022 Evaluation note* Encounter Date Diagnosis Assessment Notes Treatment Notes Treatment Clinical Notes Jan, Bronchitis (ICD-10 - J40) [facility] Other 08-30-2022 Miscellaneous Notes* Telephone Encounter - Elida Alvarez RN - 02/28/2022 9:04 AM EDT Refill request for nebulizer and supplies. [facility] 06/19/2019. Will send patient message to schedule appt. Elida Alvarez RN documented in [facility] encounterMer[facility]08[facility] History of Present illness Narrative* Bárbara Chan APRN.BEN - 02/21/2022 1:09 PM EDT This is an Express Care eVisit note for Damari Rios eVisit/Questionnaire reviewed The chief complaint for the visit - Patient presents with: Sinus Problem Recommendations/Treatment plan - See My Chart Message to patient Bárbara Chan APRN.CNP Total time spent on e-Visit: 3 minutes documented in this encounterMer[facility]03-30-2022 Miscellaneous Notes* Telephone Encounter - Bárbara [...] strong urge to urinate) Protocols used: URINARY [id number] documented in this encounterMer[facility]03-28-2022 History of Present illness Narrative* Marin [...] patient. ATTESTATION: By signing my name below, Analilia Zayasor, attest that this documentation has been prepared [...] 26, 2021 1:50 PM documented in this encounterMer[facility]09-03-2021 History of Present illness Narrative* Demetrice Ignacio, Zoey - 03/04/2021 10:30 AM EDT Radiology Service [...] 04, 2021 2:13 PM documented in this encounterMer[facility]05-02-2021 History of Present illness Narrative* 45 [...] +ch cough. * ECG 11/19: SR (79), [facility] [employer] Work Phone: 1(394) 896-467005-02-2021 History of Present illness Narrative* 45 yo [...] +ch cough. * ECG 11/19: SR (79), [facility] [employer] Work Phone: 1(563) 641-127804-09-2021 History of Present illness Narrative* Stanley Katz [...] 08, 2020 2:13 PM documented in this encounterMer[facility]04-05-2021 History of Present illness Narrative* 45 [...] cough. * ECG 11/19: SR (79), normal [facility] [employer] Work Phone: 1(354) 227-695503-27-2021 History of Present illness Narrative* 45 yo [...] cough. * ECG 11/19: SR (79), [facility] Phone: 1(169) 635-104809-16-2015 History of Past illness Narrative* Problem Noted Date Resolved Date Community acquired pneumonia 03/17/2015 Bilateral pleural effusion 03/17/201507/24 SOB (shortness of breath) 03/17/20152019 Abdominal pain, unspecified site 04/03/2012 10/14/2013 Bipolar I disorder, most rec ent episode (or current) mixed, mild 03/27/2006 04/16/2008 Anxiety state, unspecified 03/27/200604/16 Panic disorder without agoraphobia 03/27/2006 04/16/2008 documented as of this encounter (statuses as of 09/26/2021) [facility] of Past illness Narrative* Problem Noted Date Resolved Date Community acquired pneumonia 03/17/2015 Bilateral pleural effusion 03/17/201507/24 SOB (shortness of breath) 03/17/20152019 Abdominal pain, unspecified site 04/03/2012 10/14/2013 Bipolar I disorder, most rec ent episode (or current) mixed, mild 03/27/2006 04/16/2008 Anxiety state, unspecified 03/27/200604/16 Panic disorder without agoraphobia 03/27/2006 04/16/2008 documented as of this encounter (statuses as of 09/26/2021) [facility] illness Narrative* Problem Noted Date Resolved Date Community acquired pneumonia 03/17/2015 Bilateral pleural effusion 03/17/201507/24 SOB (shortness of breath) 03/17/20152019 Abdominal pain, unspecified site 04/03/2012 10/14/2013 Bipolar I disorder, most rec ent episode (or current) mixed, mild 03/27/2006 04/16/2008 Anxiety state, unspecified 03/27/200604/16 Panic disorder without agoraphobia 03/27/2006 04/16/2008 documented as of this encounter (statuses as of 09/29/2021) [facility] Narrative* Problem Noted Date Resolved Date Community acquired pneumonia 03/17/2015 Bilateral pleural effusion 03/17/201507/24 SOB (shortness of breath) 03/17/20152019 Abdominal pain, unspecified site 04/03/2012 10/14/2013 Bipolar I disorder, most rec ent episode (or current) mixed, mild 03/27/2006 04/16/2008 Anxiety state, unspecified 03/27/200604/16 Panic disorder without agoraphobia 03/27/2006 04/16/2008 documented as of this encounter (statuses as of 09/29/2021) [facility] Narrative* Problem Noted Date Resolved Date Community acquired pneumonia 03/17/2015 Bilateral pleural effusion 03/17/201507/24 SOB (shortness of breath) 03/17/20152019 Abdominal pain, unspecified site 04/03/2012 10/14/2013 Bipolar I disorder, most rec ent episode (or current) mixed, mild 03/27/2006 04/16/2008 Anxiety state, unspecified 03/27/200604/16 Panic disorder without agoraphobia 03/27/2006 04/16/2008 documented as of this encounter (statuses as of 09/30/2021) [facility] Narrative* Problem Noted Date Resolved Date Community acquired pneumonia 03/17/2015 Bilateral pleural effusion 03/17/201507/24 SOB (shortness of breath) 03/17/20152019 Abdominal pain, unspecified site 04/03/2012 10/14/2013 Bipolar I disorder, most rec ent episode (or current) mixed, mild 03/27/2006 04/16/2008 Anxiety state, unspecified 03/27/200604/16 Panic disorder without agoraphobia 03/27/2006 04/16/2008 documented as of this encounter (statuses as of 10/07/2021) [facility] Narrative* Problem Noted Date Resolved Date Community acquired pneumonia 03/17/2015 Bilateral pleural effusion 03/17/201507/24 SOB (shortness of breath) 03/17/20152019 Abdominal pain, unspecified site 04/03/2012 10/14/2013 Bipolar I disorder, most rec ent episode (or current) mixed, mild 03/27/2006 04/16/2008 Anxiety state, unspecified 03/27/200604/16 Panic disorder without agoraphobia 03/27/2006 04/16/2008 documented as of this encounter (statuses as of 10/21/2021) [facility] Narrative* Problem Noted Date Resolved Date Community acquired pneumonia 03/17/2015 Bilateral pleural effusion 03/17/201507/24 SOB (shortness of breath) 03/17/20152019 Abdominal pain, unspecified site 04/03/2012 10/14/2013 Bipolar I disorder, most rec ent episode (or current) mixed, mild 03/27/2006 04/16/2008 Anxiety state, unspecified 03/27/200604/16 Panic disorder without agoraphobia 03/27/2006 04/16/2008 documented as of this encounter (statuses as of 02/21/2022) [facility] Narrative* Problem Noted Date Resolved Date Community acquired pneumonia 03/17/2015 Bilateral pleural effusion 03/17/201507/24 SOB (shortness of breath) 03/17/20152019 Abdominal pain, unspecified site 04/03/2012 10/14/2013 Bipolar I disorder, most rec ent episode (or current) mixed, mild 03/27/2006 04/16/2008 Anxiety state, unspecified 03/27/200604/16 Panic disorder without agoraphobia 03/27/2006 04/16/2008 documented as of this encounter (statuses as of 02/28/2022) [facility] Narrative* Problem Noted Date Resolved Date Community acquired pneumonia 03/17/2015 Bilateral pleural effusion 03/17/201507/24 SOB (shortness of breath) 03/17/20152019 Abdominal pain, unspecified site 04/03/2012 10/14/2013 Bipolar I disorder, most rec ent episode (or current) mixed, mild 03/27/2006 04/16/2008 Anxiety state, unspecified 03/27/200604/16 Panic disorder without agoraphobia 03/27/2006 04/16/2008 documented as of this encounter (statuses as of 02/28/2022) [facility] Narrative* Problem Noted Date Resolved Date Community acquired pneumonia 03/17/2015 Bilateral pleural effusion 03/17/201507/24 SOB (shortness of breath) 03/17/20152019 Abdominal pain, unspecified site 04/03/2012 10/14/2013 Bipolar I disorder, most rec ent episode (or current) mixed, mild 03/27/2006 04/16/2008 Anxiety state, unspecified 03/27/200604/16 Panic disorder without agoraphobia 03/27/2006 04/16/2008 documented as of this encounter (statuses as of 04/25/2022) [facility] Narrative* Problem Noted Date Resolved Date Community acquired pneumonia 03/17/2015 Bilateral pleural effusion 03/17/201507/24 SOB (shortness of breath) 03/17/20152019 Abdominal pain, unspecified site 04/03/2012 10/14/2013 Bipolar I disorder, most rec ent episode (or current) mixed, mild 03/27/2006 04/16/2008 Anxiety state, unspecified 03/27/200604/16 Panic disorder without agoraphobia 03/27/2006 04/16/2008 documented as of this encounter (statuses as of 05/02/2022) [facility] Narrative* Problem [...] of this encounter (statuses as of 05/06/2023) [facility] Narrative* Problem Noted Date Diagnosed Date Resolved Date Community acquired pneumonia 03/17/2015 07/24/2019 Bilateral pleural effusion 03/17/2015 0 07/24/2019 Abdominal pain, unspecified site 04/03/2012 10/14/2013 Bipolar I disorder, most rec ent episode (or current) mixed, mild 03/27/2006 04/16/2008 Anxiety state, unspecified 03/27/2006 1 Panic disorder without agoraphobia 03/27/2006 04/16/2008 documented as of this encounter (statuses as of 06/06/2023) [facility] Narrative* Problem Noted Date Diagnosed Date Resolved Date Community acquired pneumonia 03/17/2015 07/24/2019 Bilateral pleural effusion 03/17/2015 0 07/24/2019 Abdominal pain, unspecified site 04/03/2012 10/14/2013 Bipolar I disorder, most rec ent episode (or current) mixed, mild 03/27/2006 04/16/2008 Anxiety state, unspecified 03/27/2006 1 Panic disorder without agoraphobia 03/27/2006 04/16/2008 documented as of this encounter (statuses as of 08/21/2023) [facility] Narrative* Problem Noted Date Diagnosed Date Resolved Date Community acquired pneumonia 03/17/2015 07/24/2019 Bilateral pleural effusion 03/17/2015 0 07/24/2019 Abdominal pain, unspecified site 04/03/2012 10/14/2013 Bipolar I disorder, most rec ent episode (or current) mixed, mild 03/27/2006 04/16/2008 Anxiety state, unspecified 03/27/2006 1 Panic disorder without agoraphobia 03/27/2006 04/16/2008 documented as of this encounter (statuses as of 09/22/2023) [facility] Narrative* Problem Noted Date Diagnosed Date Resolved Date Community acquired pneumonia 03/17/2015 07/24/2019 Bilateral pleural effusion 03/17/2015 0 07/24/2019 Abdominal pain, unspecified site 04/03/2012 10/14/2013 Bipolar I disorder, most rec ent episode (or current) mixed, mild 03/27/2006 04/16/2008 Anxiety state, unspecified 03/27/2006 1 Panic disorder without agoraphobia 03/27/2006 04/16/2008 documented as of this encounter (statuses as of 09/22/2023) [facility] Narrative* Problem Noted Date Diagnosed Date Resolved Date Community acquired pneumonia 03/17/2015 07/24/2019 Bilateral pleural effusion 03/17/2015 0 07/24/2019 Abdominal pain, unspecified site 04/03/2012 10/14/2013 Bipolar I disorder, most rec ent episode (or current) mixed, mild 03/27/2006 04/16/2008 Anxiety state, unspecified 03/27/2006 1 Panic disorder without agoraphobia 03/27/2006 04/16/2008 documented as of this encounter (statuses as of 09/24/2023) [facility] Narrative* Problem Noted Date Diagnosed Date Resolved Date Community acquired pneumonia 03/17/2015 07/24/2019 Bilateral pleural effusion 03/17/2015 0 07/24/2019 Abdominal pain, unspecified site 04/03/2012 10/14/2013 Bipolar I disorder, most rec ent episode (or current) mixed, mild 03/27/2006 04/16/2008 Anxiety state, unspecified 03/27/2006 1 Panic disorder without agoraphobia 03/27/2006 04/16/2008 documented as of this encounter (statuses as of 10/09/2023) [facility] complaint Narrative - ReportedDAMARI RIOS is being seen for a cardiovascular evaluation of palpitations.[facility] Work Phone: Chihj complaint Narrative - ReportedDAMARI RIOS is being seen for a cardiovascular evaluation of palpitations.[facility] Work Phone: Chief complaint Narrative - ReportedDAMARI RIOS is being seen for a cardiovascular evaluation of palpitations.[facility] Work Phone: Evaluation + Plan note [facility] Evaluation note* Diagnosis Kidney stones- Primary Calculus of kidney documented in this encounter [facility] note* Diagnosis Screening for genitourinary condition Screening for other and unspecified genitourinary condition documented in this encounter [facility] note* Diagnosis Renal calculi Calculus of kidney documented in this encounter [facility] note* Diagnosis Treatment not available- Primary Procedure not carried out for other reasons documented in this encounter [facility] note* Diagnosis Mild intermittent asthma, unspecified whether complicated documented in this encounter [facility] note* Diagnosis Mild intermittent asthma, unspecified whether complicated documented in this encounter [facility] noteNo [facility]. Other Evaluation note* Diagnosis Cubital tunnel syndrome on left- Primary Lesion of ulnar nerve Laceration of left forearm, sequela documented in this encounter [facility] note* Diagnosis NO SHOW- Primary documented in this encounter [facility] note* Psychological: Cooperative.Extremities: No pitting edema bilat ankles.Gastrointestinal: Soft. Mild,diffuse abdominal tenderness with no guarding. Bowel sounds present.Cardiovascular: RRR.Respiratory/Thorax: CTAB.Eyes: Clear sclera.Constitutional: Patient is alert. NAD. [facility]* Diagnosis Breast cancer screening by mammogram- Primary Encounter for annual physical exam Colon cancer screening Special screening for malignant neoplasms, colon Arthritis Unspecified arthropathy, site unspecified Moderate asthma without complication, unspecified whether persistent documented in this encounter [facility] Work Phone: Evaluation note* Diagnosis Colon cancer screening- Primary Special screening for malignant neoplasms, colon Esophageal dysphagia Dysphagia, pharyngoesophageal phase documented in this encounter [facility] Work Phone: Evaluation note* Diagnosis Colon cancer screening- Primary Special screening for malignant neoplasms, colon Esophageal dysphagia Dysphagia, pharyngoesophageal phase documented in this encounter [facility] Work Phone: Evaluation note* Diagnosis Renal calculus, right Calculus of kidney documented in this encounter [facility] note* Diagnosis Esophageal dysphagia Dysphagia, pharyngoesophageal phase Colon cancer screening Special screening for malignant neoplasms, colon documented in this encounter [facility] Work Phone: Evaluation note* Diagnosis Adnexal mass- Primary Other specified symptom associated with female genital organs Kidney stone- Primary Calculus of kidney Abdominal pain, unspecified abdominal location Adnexal mass Other specified symptom associated with female genital organs documented in this encounter [facility] Work Phone: Evaluation note* Diagnosis Adnexal mass- Primary Other specified symptom associated with female genital organs Urinary incontinence in female- Primary Adnexal mass Other specified symptom associated with female genital organs documented in this encounter [facility] Work Phone: Evaluation note* Diagnosis History of pulmonary embolism- Primary Personal history of pulmonary embolism [facility]* Diagnosis Postop check- Primary Follow-up examination, following unspecified surgery documented in this encounter [facility] Work Phone: Evaluation note* Diagnosis Adnexal mass- Primary Other specified symptom associated with female genital organs Adnexal mass Other specified symptom associated with female genital organs Myofascial pain Unspecified myalgia and myositis documented in this encounter [facility] Work Phone: Evaluation note* Diagnosis Other acute pulmonary embolism without acute cor pulmonale (CMS/HCC)- Primary Need for pneumococcal vaccine Need for prophylactic vaccination against streptococcus pneumoniae (pneumococcus) documented in this encounter [facility] Work Phone: Evaluation note* Diagnosis Heart palpitations- Primary Palpitations Essential hypertension Unspecified essential hypertension documented in this encounter [facility] Work Phone: Evaluation note* Diagnosis Heart palpitations Palpitations documented in this encounter [facility] Work Phone: Evaluation note* Diagnosis Injury of finger of right hand, initial encounter- Primary [facility]* Diagnosis URI, acute- Primary Acute upper respiratory infections of unspecified site Sore throat Acute pharyngitis [facility]* Diagnosis Acute bilateral low back pain with right-sided sciatica- Primary [facility]* Diagnosis Preop examination- Primary Preoperative examination, unspecified Kidney stone Calculus of kidney Uncomplicated asthma, unspecified asthma severity, unspecified whether persistent Cough Preoperative examination- Primary Preoperative examination, unspecified Renal calculus, right Calculus of kidney Uncomplicated asthma, unspecified asthma severity, unspecified whether persistent Anxiety Anxiety state, unspecified Injury of finger of right hand, initial encounter [facility] Diagnosis Preop examination- Primary Preoperative examination, unspecified Kidney stone Calculus of kidney Uncomplicated asthma, unspecified asthma severity, unspecified whether persistent Cough Preoperative examination- Primary Preoperative examination, unspecified Renal calculus, right Calculus of kidney Uncomplicated asthma, unspecified asthma severity, unspecified whether persistent Anxiety Anxiety state, unspecified Cough [facility]* Diagnosis Preop examination- Primary Preoperative examination, unspecified Kidney stone Calculus of kidney Uncomplicated asthma, unspecified asthma severity, unspecified whether persistent Cough Preoperative examination- Primary Preoperative examination, unspecified Renal calculus, right Calculus of kidney Uncomplicated asthma, unspecified asthma severity, unspecified whether persistent Anxiety Anxiety state, unspecified Acute otitis media, right- Primary Unspecified otitis media [facility] Narrative - Reported* Type Description Date Medical History anxiety Medical History Low back pain Medical History Right shoulder dislocation. Medical History ASTHMA Surgical History GALLBLADDER REMOVAL Surgical History BTL Surgical History T&A Surgical History STENT FOR KIDNEY STONES- SINCE REMOVED Surgical History RIGHT OVARIAN CYST REMOVED 2014 Surgical History TVH 03/01/17 Hospitalization History PNEUMONIA 2014 [facility]. Other History of Present illness Narrative* This is a pleasant 45-year-old female who presents to the pain clinic at [facility], with history of chronic upper mid and lower back pain. She also complains of pain in her right lower extremity and right shoulder. * Patient has been self-referred to me. She has been a patient of Dr. Jose C Cason MD. * Patient states that she has been treated for fibromyalgia by Dr. Cason who has been giving her oxycodone 4 tablets/day. * Patient had physical therapy 2-1/2 years ago. She had back injections by a physician in [place] in 2015. 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 Her pain affects her activities of daily living and her work. She however rates quality of her social life is average with current treatment. [facility] [address] Work Phone: [facility] Dis[facility]* Activity:activity as tolerated. * [...] course of antibioticsIncorporate rest periods with activity [facility] Additional Instructions Continue your nluy-xgy-zarnpnv medications as needed for pain. Return with increased difficulty breathing, new or worsening symptoms.[facility] Work Phone: Hospital Discharge instructions Additional Instructions Thank you for trusting us with your care today! Your x-ray was negative for signs of a fracture or broken bone. You are suffering from a hematoma. Please rest, ice and elevate the involved extremity. Please add compression with an Meek wrap. Please take Tylenol (2 pills, 650 mg) every 6 hours as needed for pain and fever control. Please return to the emergency department if your symptoms change or worsen. Please follow with your primary care physician for further outpatient evaluation and management.[facility] Work Phone: Reason for referral (narrative)* Outpatient Procedure (Routine) - Authorized Specialty Diagnoses / Procedures Referred By Contac t Referred To Contact [facility] Diagnoses Cubital tunnel syndrome on left Procedures EMG(NEURO/NI) NERVE CONDUCTION STUDIES 9-10 STUDIES Aristeo Maldonado PA-C [address] [place] [address] [facility] [place] [address] [place] [address] Referral ID Status Reason Start Date Expiration Date Visits Requested Visits Authorized [id number] Authorized Auto-Generat ed Referral 07/01/2022 [address] [facility] for referral (narrative)* Diagnostic Procedure Only (Urgent) - Closed Specialty Diagnoses / Procedures Referred By Contac t Referred To Contact XR IMAGING Diagnoses Injury of finger of right hand, initial encounter Procedures XR DIGIT GENERAL 3V FRONTAL/LAT/OBL RIGHT RADEX FINGR MINIMUM 2 VIEWS Justyn Maldonado APRN.SOUND RECORDIST [address] [place] [address] [place] [address] Referral ID Status Reason Start Date Expiration Date V isits Requested Visits Authorized [id number] Closed Auto-Generate d Referral 09/22/2023 10/21/2024 [address] [facility] for referral (narrative)* Diagnostic Procedure Only (Urgent) - Closed Specialty Diagnoses / Procedures Referred By Contac t Referred To Contact XR IMAGING Diagnoses Injury of finger of right hand, initial encounter Procedures XR DIGIT GENERAL 3V FRONTAL/LAT/OBL RIGHT RADEX FINGR MINIMUM 2 VIEWS Justyn Maldonado APRN.SOUND RECORDIST [address] [place] [address] [place] [address] Referral ID Status Reason Start Date Expiration Date V isits Requested Visits Authorized [id number] Closed Auto-Generate d Referral 09/22/2023 10/21/2024 1 [facility]No reason for referral information availableWMer[facility] Work Phone: Reason for visit Narrative* Diagnostic Procedure Only (Urgent) - Closed Specialty Diagnoses / Procedures Referred By Shaye vieyra Referred To Contact XR IMAGING Diagnoses Injury of finger of right hand, initial encounter Procedures XR DIGIT GENERAL 3V FRONTAL/LAT/OBL RIGHT RADEX FINGR MINIMUM 2 VIEWS Justyn Maldonado APRN.CNP [address] [place] [address] [place] [address] Referral ID Status Reason Start Date Expiration Date V isits Requested Visits Authorized [id number] Closed Auto-Generate d Referral 09/22/2023 10/21/2024 1 1 [facility] Family History No Family History Records FoundUnknown Family Member Name Dates Details Family history [...] hypertensi on: Father, Sister, Grandparent(V17.49, Z82.49) Status:Active Relationship Condition Age at Onset Recorded Date/T joey brother Asthma Unknown grandmother Diabetes mellitus Unknown Myocardial infarction Unknown father Hypertension Unknown mother Malignant neoplasm of uterus Unknown Advance Directives No Advanced Directives Records FoundDocuments on File Type Date Recorded 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 Advance Directive(s) 06/19/2019 2:32 PM Date Activated Date Inactivated Comments 08/14/2023 11:00 PM 08/16/2023 11:26 AM Question Answer Comments Full Code Order Discussed With: Patient Documents on File Type Date Recorded 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 Advance Directive(s) 04/06/2021 9:37 AM Advance Directive(s) 07/04/2019 3:48 PM Advance Directive(s) 07/01/2019 10:34 AM Advance Directive(s) 06/19/2019 2:32 PM Documents on File Type Date Recorded 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 Advance Directive(s) 04/06/2021 9:37 AM Advance Directive(s) 07/04/2019 3:48 PM Advance Directive(s) 07/01/2019 10:34 AM Advance Directive(s) 06/19/2019 2:32 PM Documents on File Type Date Recorded 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 Advance Directive(s) 06/19/2019 2:32 PM [...] Comments Full Code Order Discussed With: Patient Advance Directive Response Recorded Date/ Time Living Will No March 24, 2024 8:49am Power of Card Grinder Helper No March 8:49am Living Will No May 05 2:51pm Power of Card Grinder Helper No May 05, 2024 2:51pm Living Will No June 07 5:13pm Power of Card Grinder Helper No June 07, 2024 5:13pm Living Will No June 18, 2 024 10:37am Power of Card Grinder Helper No June 18, 2024 10:37am Living Will No June 28, 2 024 2:42am Power of Card Grinder Helper No June 28, 2024 2:42am Living Will No July 30 5:55pm Power of Card Grinder Helper No July 30, 2024 5:55pm Living Will No September 04, 2024 2:47pm Power of Card Grinder Helper No September 04 2:47pm Living Will No May 09 2:43pm Power of Card Grinder Helper No May 09, 2024 2:43pm Living Will No August 11 025 5:32pm Power of Card Grinder Helper No August 11, 2024 5:32pm Advance Directives No January 28 11:29am Advance Directive Response Recorded Date/ Time Living Will No June 07 6:13pm Power of Card Grinder Helper No June 07, 2024 6:13pm Living Will No June 18, 2 024 11:37am Power of Card Grinder Helper No June 18, 2024 11:37am Living Will No June 28 2 024 3:42am Power of Card Grinder Helper No June 28, 2024 3:42am Living Will No July 30 6:55pm Power of Card Grinder Helper No July 30, 2024 6:55pm Living Will No September 04, 2024 3:47pm Power of Card Grinder Helper No September 04 3:47pm Living Will No August 11 025 6:32pm Power of Card Grinder Helper No August 11, 2024 6:32pm Advance Directives No January 28 12:29pm Advance Directive Response Recorded Date/ Time Living Will No June 07 6:13pm Do you have a Healthcare Power of Card Grinder Helper? No June 07, 2024 6:13pm Living Will No June 18, 024 11:37am Do you have a Healthcare Power of Card Grinder Helper? No June 18, 2024 11:37am Living Will No June 28 2 024 3:42am Do you have a Healthcare Power of Card Grinder Helper? No June 28, 2024 3:42am Living Will No July 30 6:55pm Do you have a Healthcare Power of Card Grinder Helper? No July 30, 2024 6:55pm Living Will No September 04, 2024 3:47pm Do you have a Healthcare Power of Card Grinder Helper? No September 04, 2024 3:47pm Living Will No September 24, 2024 10:41pm Do you have a Healthcare Power of Card Grinder Helper? No September 24, 2024 10:41pm Living Will No August 11 025 6:32pm Do you have a Healthcare Power of Card Grinder Helper? No August 11, 2024 6:32pm Advance Directives No January 28 12:29pm Advance Directive Response Recorded Date/ Time Living Will No June 07 6:13pm Do you have a Healthcare Power of Card Grinder Helper? No June 07, 2024 6:13pm Living Will No June 18 024 11:37am Do you have a Healthcare Power of Card Grinder Helper? No June 18, 2024 11:37am Living Will No June 28 024 3:42am Do you have a Healthcare Power of Card Grinder Helper? No June 28, 2024 3:42am Living Will No July 30 6:55pm Do you have a Healthcare Power of Card Grinder Helper? No July 30, 2024 6:55pm Living Will No September 04, 2024 3:47pm Do you have a Healthcare Power of Card Grinder Helper? No September 04, 2024 3:47pm Living Will No September 24, 2024 10:41pm Do you have a Healthcare Power of Card Grinder Helper? No September 24, 2024 10:41pm Living Will No August 11 025 6:32pm Do you have a Healthcare Power of Card Grinder Helper? No August 11, 2024 6:32pm Living Will No October 01, 2024 9:37pm Do you have a Healthcare Power of Card Grinder Helper? No October 01, 2024 9:37pm Advance Directives No January 28 12:29pm Advance Directive Response Recorded Date/ Time Living Will No June 28 024 3:42am Do you have a Healthcare Power of Card Grinder Helper? No June 28, 2024 3:42am Living Will No July 30 6:55pm Do you have a Healthcare Power of Card Grinder Helper? No July 30, 2024 6:55pm Living Will No September 04, 2024 3:47pm Do you have a Healthcare Power of Card Grinder Helper? No September 04, 2024 3:47pm Living Will No September 24, 2024 10:41pm Do you have a Healthcare Power of Card Grinder Helper? No September 24, 2024 10:41pm Living Will No August 11 6:32pm Do you have a Healthcare Power of Card Grinder Helper? No August 11, 2024 6:32pm Living Will No October 01, 2024 9:37pm Do you have a Healthcare Power of Card Grinder Helper? No October 01, 2024 9:37pm Advance Directives No October 21 12:54pm Advance Directive Response Recorded Date/ Time Advance Directives No October 21 12:54pm Living Will No July 30 6:55pm Do you have a Healthcare Power of Card Grinder Helper? No July 30, 2024 6:55pm Living Will No September 04, 2024 3:47pm Do you have a Healthcare Power of Card Grinder Helper? No September 04, 2024 3:47pm Living Will No September 24, 2024 10:41pm Do you have a Healthcare Power of Card Grinder Helper? No September 24, 2024 10:41pm Do you have a Healthcare Power of Card Grinder Helper? No October 23, 2024 12:21pm Living Will No August 11 6:32pm Do you have a Healthcare Power of Card Grinder Helper? No August 11, 2024 6:32pm Living Will No October 01, 2024 9:37pm Do you have a Healthcare Power of Card Grinder Helper? No October 01, 2024 9:37pm Advance Directive Response Recorded Date/ Time Advance Directives No October 21 12:54pm Living Will No September 04, 2024 3:47pm Do you have a Healthcare Power of Card Grinder Helper? No September 04, 2024 3:47pm Living Will No September 24, 2024 10:41pm Do you have a Healthcare Power of Card Grinder Helper? No September 24, 2024 10:41pm Do you have a Healthcare Power of Card Grinder Helper? No October 23, 2024 12:21pm Do you have a Healthcare Power of Card Grinder Helper? No November 30, 2024 4:23pm Living Will No August 11 6:32pm Do you have a Healthcare Power of Card Grinder Helper? No August 11, 2024 6:32pm Living Will No October 01, 2024 9:37pm Do you have a Healthcare Power of Card Grinder Helper? No October 01, 2024 9:37pm Reason for Referral Specialty Diagnoses / Procedures Referred By Shaye t Referred To Contact CT IMAGING Diagnoses Kidney stones Procedures CT FLANK WO IVCON CT ABD & PELVIS W/O CONTRAST Marin Gutierrez MD [address] [place] [address] Ct Imaging Referral ID Status Reason Start Date Expiration Date Visits Requested Visits Authorized [id number] Authorized Auto-Generat ed Referral 09/26/2021 11/25/2021 1 1 Reason EVAL AND TREAT // ul ed nerve injury? R1 03/21/22 Diagnosis 1 Laceration of forear m, left (S51.812A) Referral Organization [facility] Referring Provider First Name AIDAN Referring Provider Last Name ALYSSA Referring Provider Specialty Family Prac jamie Referred Provider Fazal Raphael ( [facility]) Referred Provider Specialty Orthopedic S [...] Referred By Shaye vieyra Referred To Contact Gastroenterology Diagnoses Colon cancer screening Procedures Colonoscopy Screening OR COLONOSCOPY FLX DX W/COLLJ SPEC WHEN PFRMD OR COLON CA SCRN NOT HI RSK IND OR COLORECTAL SCRN; HI RISK IND OR COLONOSCOPY W/BIOPSY SINGLE/MULTIPLE OR COLSC FLX W/RMVL OF TUMOR POLYP LESION SNARE TQ OR COLSC FLX W/REMOVAL LESION BY HOT BX FORCEPS Blayne Weeks MD [address] [place] [address] Referral ID Status Reason Start Date Expiration Date V isits Requested Visits Authorized [id number] Pending Review 03/20/2023 09/16/2023 1 1 Specialty Diagnoses / Procedures Referred By Contac t Referred To Contact Radiology Diagnoses Breast cancer screening by mammogram Procedures BI mammo bilateral screening tomosynthesis Blayne Weeks MD [address] [address] Referral ID Status Reason Start Date Expiration Date Visits Requested Visits Authorized [id number] Authorized Perform Procedure 03/20/2023 09/16/2023 1 1 Specialty Diagnoses / Procedures Referred By Contac t Referred To Contact Gastroenterology Diagnoses Esophageal dysphagia Colon cancer screening Procedures Colonoscopy Screening OR COLONOSCOPY FLX DX W/COLLJ SPEC WHEN PFRMD OR COLON CA SCRN NOT HI RSK IND OR COLORECTAL SCRN; HI RISK IND OR COLONOSCOPY W/BIOPSY SINGLE/MULTIPLE OR COLSC FLX W/RMVL OF TUMOR POLYP LESION SNARE TQ OR COLSC FLX W/REMOVAL L[place]ION [place] [address] [place] [address] Referral ID Status Reason Start Date Expiration Date V isits Requested Visits Authorized [id number] Pending Review 04/05/2023 10/02/2023 1 1 Specialty Diagnoses / Procedures Referred By Contact Referred To Contact Gastroenterology Diagnoses Esophageal dysphagia Colon cancer screening Procedures EGD OR ESOPHAGOGASTRODUODENOSCOPY TRANSORAL DIAGNOSTIC OR EGD TRANSORAL BIOPSY SINGLE/[place] [address] [place] [address] Referral ID Status Reason Start Date Expiration Date V isits Requested Visits Authorized [id number] Pending Review 04/05/2023 10/02/2023 1 1 Referral ID Status Reason Start Date Expiration Date V isits Requested Visits Authorized [id number] Authorized 04/05/2023 10/02/2023 1 1 Referral ID Status Reason Start Date Expiration Date V isits Requested Visits Authorized [id number] Authorized 04/05/2023 10/02/2023 1 1 Specialty Diagnoses / Procedures Referred By Contac t Referred To Contact Cardiology Diagnoses Heart palpitations Procedures Holter Or Event Hydrographic Surveyor Lul Chin, CHEMIST STEROIDS-SOUND RECORDIST [address] [facility] [place] [address] Referral ID Status Reason Start Date Expiration Date V isits Requested Visits Authorized [id number] Pending Review 08/06/2023 08/05/2024 1 1 Referral ID Status Reason Start Date Expiration Date V isits Requested Visits Authorized [id number] Authorized 08/06/2023 08/05/2024 1 1 Chief Complaint [...] 6 OR 7 MONTHS AGO. COULDN'T HEAR ANYTHING. REPORTS PCP PUT ON ANTIBIOTIC TREATMENT; CONTINUES TO FEEL MUFFLED RIGHT EAR. LEFT EAR HEARINGWELL. NO DIZZINESS; RINGING; IMBALANCE. Summary Purpose Chief Complaint and Reason for Visit Chief Complaint Admit Date CYST ON LEFT OVARY ([place]) May 072023 2:33pm abd May 09, 2024 2 :03pm PELVIC PAIN June 03, 2024 4 :15pm INTRACTABLE FLANK PAIN, OBSTRUCTING STON E June 07, 2024 5:01pm Right Renal ESWL June 19, 2024 12:02pm PYELONEPHRITIS June 28, 2024 3:08am KUB- KIDNEY STONE July 08, 2024 3: 26pm FLANK PAIN July 30, 2024 3 :26pm injury, rolled- R ANKLE August 04 3:27pm OVARIAN CYST August 11, 2024 4:22pm edema August 11, 2024 5:31pm sciatica of the right leg August 29, 2024 9:29am GENERAL ILLNESS September 04, 2024 2:40 pm Reason for Visit Admit Date Left ovarian cyst May 07, 2024 2 :33pm Pelvic pain May 07, 2024 2 :33pm Hydronephrosis with renal calculous obst ruction June 07, 2024 5:01pm Nausea June 07, 2024 5 :01pm Acute flank pain June 07, 2024 5 :01pm Flank pain June 28, 2024 3:08am Nausea June 28, 2024 3:08am Urinary tract infection June 28, 2 024 3:08am Pyelonephritis June 28, 2024 3:08am Chief Complaint Admit Date PELVIC PAIN June 03, 2024 4 :15pm INTRACTABLE FLANK PAIN, OBSTRUCTING STON E June 07, 2024 5:01pm Right Renal ESWL June 19, 2024 12:02pm PYELONEPHRITIS June 28, 2024 3:08am KUB- KIDNEY STONE July 08, 2024 3: 26pm FLANK PAIN July 30, 2024 3 :26pm injury, rolled- R ANKLE August 04 3:27pm OVARIAN CYST August 11, 2024 4:22pm edema August 11, 2024 5:31pm sciatica of the right leg August 29, 2024 9:29am GENERAL ILLNESS September 04, 2024 2:40 pm Reason for Visit Admit Date Hydronephrosis with renal calculous obst ruction June 07, 2024 5:01pm Nausea June 07, 2024 5 :01pm Acute flank pain June 07, 2024 5 :01pm Flank pain June 28, 2024 3:08am Nausea June 28, 2024 3:08am Urinary tract infection June 28, 2 024 3:08am Pyelonephritis June 28, 2024 3:08am Chief Complaint Admit Date PELVIC PAIN June 03, 2024 4 :15pm INTRACTABLE FLANK PAIN, OBSTRUCTING STON E June 07, 2024 5:01pm Right Renal ESWL June 19, 2024 12:02pm PYELONEPHRITIS June 28, 2024 3:08am KUB- KIDNEY STONE July 08, 2024 3: 26pm FLANK PAIN July 30, 2024 3 :26pm injury, rolled- R ANKLE August 04 3:27pm OVARIAN CYST August 11, 2024 4:22pm edema August 11, 2024 5:31pm sciatica of the right leg August 29, 2024 9:29am GENERAL ILLNESS September 04, 2024 2:40 pm ABDOMINAL PAIN September 24, 2024 9:3 8pm Chief Complaint Admit Date PELVIC PAIN June 03, 2024 4 :15pm INTRACTABLE FLANK PAIN, OBSTRUCTING STON E June 07, 2024 5:01pm Right Renal ESWL June 19, 2024 12:02pm PYELONEPHRITIS June 28, 2024 3:08am KUB- KIDNEY STONE July 08, 2024 3: 26pm FLANK PAIN July 30, 2024 3 :26pm injury, rolled- R ANKLE August 04 3:27pm OVARIAN CYST August 11, 2024 4:22pm edema August 11, 2024 5:31pm sciatica of the right leg August 29, 2024 9:29am GENERAL ILLNESS September 04, 2024 2:40 pm ABDOMINAL PAIN September 24, 2024 9:3 8pm PVD September 25, 2024 1:5 3pm Chief Complaint Admit Date PELVIC PAIN June 03, 2024 4 :15pm INTRACTABLE FLANK PAIN, OBSTRUCTING STON E June 07, 2024 5:01pm Right Renal ESWL June 19, 2024 12:02pm PYELONEPHRITIS June 28, 2024 3:08am KUB- KIDNEY STONE July 08, 2024 3: 26pm FLANK PAIN July 30, 2024 3 :26pm injury, rolled- R ANKLE August 04 3:27pm OVARIAN CYST August 11, 2024 4:22pm edema August 11, 2024 5:31pm sciatica of the right leg August 29, 2024 9:29am GENERAL ILLNESS September 04, 2024 2:40 pm ABDOMINAL PAIN September 24, 2024 9:3 8pm PVD September 25, 2024 1:5 3pm Leg pain October 01, 2024 9:22 pm Chief Complaint Admit Date PYELONEPHRITIS June 28, 2024 3:08am KUB- KIDNEY STONE July 08, 2024 3: 26pm FLANK PAIN July 30, 2024 3 :26pm injury, rolled- R ANKLE August 04 3:27pm OVARIAN CYST August 11, 2024 4:22pm edema August 11, 2024 5:31pm sciatica of the right leg August 29, 2024 9:29am GENERAL ILLNESS September 04, 2024 2:40 pm ABDOMINAL PAIN September 24, 2024 9:3 8pm PVD September 25, 2024 1:5 3pm Leg pain October 01, 2024 9:22 pm LT LEG DVT October 17, 2024 9:5 0am Reason for Visit Admit Date Flank pain June 28, 2024 3:08am Nausea June 28, 2024 3:08am Urinary tract infection June 28, 2 024 3:08am Pyelonephritis June 28, 2024 3:08am Chief Complaint Admit Date FLANK PAIN July 30, 2024 3 :26pm injury, rolled- R ANKLE August 04 3:27pm OVARIAN CYST August 11, 2024 4:22pm edema August 11, 2024 5:31pm sciatica of the right leg August 29, 2024 9:29am GENERAL ILLNESS September 04, 2024 2:40 pm ABDOMINAL PAIN September 24, 2024 9:3 8pm PVD September 25, 2024 1:5 3pm Leg pain October 01, 2024 9:22 pm LT LEG DVT October 17, 2024 9:5 0am N/V/D October 23, 2024 11: 36am LUMBAR SPINE November 04, 2024 2:40pm Room 3 November 04, 2024 2:53pm Abdominal complaints November 13, 2024 3:18 pm Reason for Visit Admit Date Lumbar radiculopathy November 04, 2024 2:40p m Abdominal symptoms November 13, 2024 3:18p m Chief Complaint Admit Date injury, rolled- R ANKLE August 04 3:27pm OVARIAN CYST August 11, 2024 4:22pm edema August 11, 2024 5:31pm sciatica of the right leg August 29, 2024 9:29am GENERAL ILLNESS September 04, 2024 2:40 pm ABDOMINAL PAIN September 24, 2024 9:3 8pm PVD September 25, 2024 1:5 3pm Leg pain October 01, 2024 9:22 pm LT LEG DVT October 17, 2024 9:5 0am N/V/D October 23, 2024 11: 36am LUMBAR SPINE November 04, 2024 2:40pm Room 3 November 04, 2024 2:53pm Abdominal complaints November 13, 2024 3:18 pm upper ex November 30, 2024 3:24p m Reason for Visit Admit Date Lumbar radiculopathy November 04, 2024 2:40p m Gastritis November 13, 2024 3:18p m IBS (irritable bowel syndrome) November 13, 2024 3:18pm Nausea November 13, 2024 3:18p m Abdominal pain November 13, 2024 3:18p m Abdominal symptoms November 13, 2024 3:18p m Additional Source Comments Source Comments (unrecognize d section and content) In the event this informatio n is protected by the Federal Confidentiality of Alcohol and Drug Abuse Patient Records regulations: The Federal rules restrict any use of the information to criminally investigate or prosecute any alcohol or drug abuse patient.[facility] the event this information is protected by the Federal Confidentiality of Alcohol and Drug Abuse Patient Records regulations: The Federal rules restrict any use of the information to criminally investigate or prosecute any alcohol or drug abuse patient.[facility] Hospital[facility] the event this information is protected by the Federal Confidentiality of Alcohol and Drug Abuse Patient Records regulations: The Federal rules restrict any use of the information to criminally investigate or prosecute any alcohol or drug abuse patient.[facility] Hospital[facility] the event this information is protected by the Federal Confidentiality of Alcohol and Drug Abuse Patient Records regulations: The Federal rules restrict any use of the information to criminally investigate or prosecute any alcohol or drug abuse patient.[facility] Hospital[facility] the event this information is protected by the Federal Confidentiality of Alcohol and Drug Abuse Patient Records regulations: The Federal rules restrict any use of the information to criminally investigate or prosecute any alcohol or drug abuse patient.[facility] Hospital[facility] the event this information is protected by the Federal Confidentiality of Alcohol and Drug Abuse Patient Records regulations: The Federal rules restrict any use of the information to criminally investigate or prosecute any alcohol or drug abuse patient.[facility] HospitalIn the event this information is protected by the Federal Confidentiality of Alcohol and Drug Abuse Patient Records regulations: The Federal rules restrict any use of the information to criminally investigate or prosecute any alcohol or drug abuse patient.[facility] HospitalIn the event this information is protected by the Federal Confidentiality of Alcohol and Drug Abuse Patient Records regulations: The Federal rules restrict any use of the information to criminally investigate or prosecute any alcohol or drug abuse patient.[facility] HospitalIn the event this information is protected by the Federal Confidentiality of Alcohol and Drug Abuse Patient Records regulations: The Federal rules restrict any use of the information to criminally investigate or prosecute any alcohol or drug abuse patient.[facility] HospitalIn the event this information is protected by the Federal Confidentiality of Alcohol and Drug Abuse Patient Records regulations: The Federal rules restrict any use of the information to criminally investigate or prosecute any alcohol or drug abuse patient.[facility] HospitalIn the event this information is protected by the Federal Confidentiality of Alcohol and Drug Abuse Patient Records regulations: The Federal rules restrict any use of the information to criminally investigate or prosecute any alcohol or drug abuse patient.[facility] HospitalIn the event this information is protected by the Federal Confidentiality of Alcohol and Drug Abuse Patient Records regulations: The Federal rules restrict any use of the information to criminally investigate or prosecute any alcohol or drug abuse patient.[facility] HospitalIn the event this information is protected by the Federal Confidentiality of Alcohol and Drug Abuse Patient Records regulations: The Federal rules restrict any use of the information to criminally investigate or prosecute any alcohol or drug abuse patient.[facility] HospitalIn the event this information is protected by the Federal Confidentiality of Alcohol and Drug Abuse Patient Records regulations: The Federal rules restrict any use of the information to criminally investigate or prosecute any alcohol or drug abuse patient.[facility] HospitalIn the event this information is protected by the Federal Confidentiality of Alcohol and Drug Abuse Patient Records regulations: The Federal rules restrict any use of the information to criminally investigate or prosecute any alcohol or drug abuse patient.[facility] HospitalIn the event this information is protected by the Federal Confidentiality of Alcohol and Drug Abuse Patient Records regulations: The Federal rules restrict any use of the information to criminally investigate or prosecute any alcohol or drug abuse patient.[facility] HospitalIn the event this information is protected by the Federal Confidentiality of Alcohol and Drug Abuse Patient Records regulations: The Federal rules restrict any use of the information to criminally investigate or prosecute any alcohol or drug abuse patient.[facility] HospitalIn the event this information is protected by the Federal Confidentiality of Alcohol and Drug Abuse Patient Records regulations: The Federal rules restrict any use of the information to criminally investigate or prosecute any alcohol or drug abuse patient.[facility] HospitalIn the event this information is protected by the Federal Confidentiality of Alcohol and Drug Abuse Patient Records regulations: The Federal rules restrict any use of the information to criminally investigate or prosecute any alcohol or drug abuse patient.[facility] HospitalIn the event this information is protected by the Federal Confidentiality of Alcohol and Drug Abuse Patient Records regulations: The Federal rules restrict any use of the information to criminally investigate or prosecute any alcohol or drug abuse patient.[facility] HospitalIn the event this information is protected by the Federal Confidentiality of Alcohol and Drug Abuse Patient Records regulations: The Federal rules restrict any use of the information to criminally investigate or prosecute any alcohol or drug abuse patient.[facility] HospitalIn the event this information is protected by the Federal Confidentiality of Alcohol and Drug Abuse Patient Records regulations: The Federal rules restrict any use of the information to criminally investigate or prosecute any alcohol or drug abuse patient.[facility] HospitalIn the event this information is protected by the Federal Confidentiality of Alcohol and Drug Abuse Patient Records regulations: The Federal rules restrict any use of the information to criminally investigate or prosecute any alcohol or drug abuse patient.[facility] HospitalIn the event this information is protected by the Federal Confidentiality of Alcohol and Drug Abuse Patient Records regulations: The Federal rules restrict any use of the information to criminally investigate or prosecute any alcohol or drug abuse patient.[facility] HospitalIn the event this information is protected by the Federal Confidentiality of Alcohol and Drug Abuse Patient Records regulations: The Federal rules restrict any use of the information to criminally investigate or prosecute any alcohol or drug abuse patient.[facility] Care Teams (unrecognized sec tion and content) Cold Mill Operator Relationship Specialty Start Date End Date Kimberly Cason MD [address] [address] [place] [address] PCP - General Internal Medicine 01/21/21 Cold Mill Operator Relationship Specialty Start Date End Date Kimberly Cason MD [address] [address] [place] [address] PCP - General Internal Medicine 01/21/21 Cold Mill Operator Relationship Specialty Start Date End Date Kimberly Cason MD [address] [facility] [address] [place] [address] PCP - General Internal Medicine 01/21/21 Cold Mill Operator Relationship Specialty Start Date End Date Kimberly Cason MD [address] [facility] [address] [place] [address] PCP - General Internal Medicine 01/21/21 Cold Mill Operator Relationship Specialty Start Date End Date Kimberly Cason MD [address] [place] [address] [facility] [address] [place] [phone] PCP - General Internal Medicine 01/21/21 Cold Mill Operator Relationship Specialty Start Date End Date Kimberly Cason MD [address] [place] [address] [facility] [address] [place] [id number] PCP - General Internal Medicine 01/21/21 Cold Mill Operator Relationship Specialty Start Date End Date Kimberly Cason MD [address] [place] [address] [facility] [address] [place] [address] PCP - General Internal Medicine 01/21/21 Cold Mill Operator Relationship Specialty Start Date End Date Kimberly Cason MD [address] [place] [address] [facility] [address] [place] [address] PCP - General Internal Medicine 01/21/21 Cold Mill Operator Relationship Specialty Start Date End Date Kimberly Cason MD [address] [place] [address] [place] [phone] PCP - General Internal Medicine 01/21/21 Cold Mill Operator Relationship Specialty Start Date End Date Kimberly Cason MD [address] [place] [address] [place] [address] PCP - General Internal Medicine 01/21/21 Cold Mill Operator Relationship Specialty Start Date End Date Francisco Cason MD [address] [place] [address] [place] [address] PCP - General 11/16/20 Francisco Cason MD [address] [place] [address] [place] [address] PCP - [facility] PCP 07/02/22 Roxana Price E International Account RepresentativeLead Level Designer 03/15/23 Cold Mill Operator Relationship Specialty Start Date End Date Francisco Cason MD [address] [place] [address] [facility] [address] [place] [address] PCP - General 11/16/20 Francisco Cason MD [address] [place] [address] [facility] [address] [place] [address] PCP - [facility] PCP 07/02/22 Roxana Price International Account RepresentativeLead Level Designer 03/15/23 Cold Mill Operator Relationship Specialty Start Date End Date Francisco Cason MD [address] [place] [address] [facility] [address] [place] [address] PCP - [facility] PCP 07/02/22 Blayne Weeks MD [address] [address] PCP - General Internal Medicine 03/08/23 Roxana Price International Account RepresentativeLead Level Designer 03/15/23 04/16/23 Cold Mill Operator Relationship Specialty Start Date End Date Kimberly Cason MD [address] [place] [address] [facility] [address] [place] [address] PCP - General Internal Medicine 01/21/21 Cold Mill Operator Relationship Specialty Start Date End Date Francisco Cason MD [address] [place] [address] [facility] [address] [place] [address] PCP - [facility] PCP 07/02/22 Blayne Weeks MD [address] [facility] [address] [place] [address] PCP - General Internal Medicine 03/08/23 Cold Mill Operator Relationship Specialty Start Date End Date Francisco Cason MD [address] [place] [address] [facility] [address] [place] [address] [facility] P[facility] 07/02/22 Blayne Weeks MD [address] [address] PCP - General Internal Medicine 03/08/23 Cold Mill Operator Relationship Specialty Start Date End Date Francisco Cason MD [address] [place] [address] [facility] [address] [place] [address] [facility] P[facility] 07/02/22 Blayne Weeks MD [address] [address] PCP - General Internal Medicine 03/08/23 Cold Mill Operator Relationship Specialty Start Date End Date Kimberly Cason MD [address] [place] [facility] [address] [place] [address] PCP - General Internal Medicine 01/21/21 Cold Mill Operator Relationship Specialty Start Date End Date Blayne Weeks MD [address] [address] PCP - General Internal Medicine 03/08/23 Cold Mill Operator Relationship Specialty Start Date End Date Blayne Weeks MD [address] [address] PCP - General Internal Medicine 03/08/23 Cold Mill Operator Relationship Specialty Start Date End Date Blayne Weeks MD [address] [facility] [address] [place] [address] PCP - General Internal Medicine 03/08/23 Cold Mill Operator Relationship Specialty Start Date End Date Blayne Weeks MD [address] [facility] [address] [place] [address] PCP - General Internal Medicine 03/08/23 Cold Mill Operator Relationship Specialty Start Date End Date [facility] 06/07/23 Cold Mill Operator Relationship Specialty Start Date End Date Blayne Weeks MD [address] [facility] [address] [place] [address] PCP - General Internal Medicine 03/08/23 Aidan Shah DO [address] [facility] [address] [place] [address] PCP - [facility] Medicaid PCP 07/02/23 Cold Mill Operator Relationship Specialty Start Date End Date [facility] 06/07/23 Cold Mill Operator Relationship Specialty Start Date End Date [facility] 06/07/23 Cold Mill Operator Relationship Specialty Start Date End Date [facility] 06/07/23 Cold Mill Operator Relationship Specialty Start Date End Date [facility] 06/07/23 Cold Mill Operator Relationship Specialty Start Date End Date [facility] 06/07/23 Cold Mill Operator Relationship Specialty Start Date End Date Dwayne Stephens MD [address] [place] [address] PCP - General Internal Medicine 03/05/24 Dwayne Stephens MD [address] [place] [address] Referring Internal Medicine 03/05/24 [facility] Community [facility] 06/07/23 Team Status: Active Member Role Status Oscar Stephens MD Primary Care Provider Active Team Status: Inactive Member Role Status Oscar Stephens MD Primary Care Provider Active St art: May 07, 2024 End: May 07, 2024 Dwayne Stephens MD Referring Provider Active Start : May 07, 2024 End: May 07, 2024 Rachel Art IT PROGRAM AUDITOR, IT PROGRAM AUDITOR-C Attending Provider Active Start: May 07, 2024 End: May 07, 2024 Team Status: Inactive Member Role Status Oscar Stephens MD Primary Care Provider Active St art: May 08, 2024 End: May 08, 2024 Dwayne Stephens MD Referring Provider Active Start : May 08, 2024 End: May 08, 2024 Dr. Jose Hassan DO Attending Provider Active Start: May 08, 2024 End: May 08, 2024 Team Status: Active Member Role Status Oscar Stephens MD Primary Care Provider Active St art: May 08, 2024 Dwayne Stephens MD Referring Provider Active Start : May 08, 2024 Dr. Jose Hassan DO Attending Provider Active Start: May 08, 2024 Dr. Jose Hassan DO Other Provider Active St art: May 08, 2024 Team Status: Inactive Member Role Status Oscar Stephens MD Primary Care Provider Active St art: May 09, 2024 End: May 09, 2024 Dr. Albert Sykes DO Attending Provider Active Start: May 09, 2024 End: May 09, 2024 Dr. Albert Sykes DO Emergency Provider Active Start: May 09, 2024 End: May 09, 2024 Team Status: Inactive Member Role Status Oscar Stephens MD Primary Care Provider Active St art: June 03, 2024 End: June 03, 2024 Rachel Art IT PROGRAM AUDITOR, IT PROGRAM AUDITOR-C Attending Provider Active Start: June 03, 2024 End: June 03, 2024 Rachel Art IT PROGRAM AUDITOR, IT PROGRAM AUDITOR-C Referring Provider Active Start: June 03, 2024 End: June 03, 2024 Team Status: Inactive Member Role Status Oscar Stephens MD Primary Care Provider Active St art: June 07, 2024 End: June 09, 2024 Dr. Albert Sykes DO Emergency Provider Active Start: June 07, 2024 End: June 09, 2024 Dr. Anyi Disla MD Admit Provider Active Sta rt: June 07, 2024 End: June 09, 2024 Dr. Anyi Disla MD Attending Provider Active Start: June 07, 2024 End: June 09, 2024 Team Status: Inactive Member Role Status Oscar Stephens MD Primary Care Provider Active St art: June 19, 2024 End: June 19, 2024 Dr. Anyi Disla MD Attending Provider Active Start: June 19, 2024 End: June 19, 2024 Dr. Anyi Disla MD Referring Provider Active Start: June 19, 2024 End: June 19, 2024 Team Status: Inactive Member Role Status Oscar Stephens MD Primary Care Provider Active St art: June 28, 2024 End: June 28, 2024 Dr. Albert Sykes DO Emergency Provider Active Start: June 28, 2024 End: June 28, 2024 Dr. Anyi Disla MD Admit Provider Active Sta rt: June 28, 2024 End: June 28, 2024 Dr. Anyi Disla MD Attending Provider Active Start: June 28, 2024 End: June 28, 2024 Team Status: Inactive Member Role Status Oscar Stephens MD Primary Care Provider Active St art: July 08, 2024 End: July 08, 2024 Dr. Anyi Disla MD Attending Provider Active Start: July 08, 2024 End: July 08, 2024 Dr. Anyi Disla MD Referring Provider Active Start: July 08, 2024 End: July 08, 2024 Team Status: Inactive Member Role Status Oscar Stephens MD Primary Care Provider Active St art: July 30, 2024 End: July 30, 2024 Dr. Sumanth Coyne DO Attending Provider Active Start: July 30, 2024 End: July 30, 2024 Dr. Sumanth Coyne DO Emergency Provider Active Start: July 30, 2024 End: July 30, 2024 Team Status: Inactive Member Role Status Oscar Stephens MD Primary Care Provider Active St art: August 04, 2024 End: August 04, 2024 Dwayne Stephens MD Attending Provider Active Start : August 04, 2024 End: August 04, 2024 Dwayne Stephens MD Referring Provider Active Start : August 04, 2024 End: August 04, 2024 Team Status: Inactive Member Role Status Oscar Stephens MD Primary Care Provider Active St art: August 11, 2024 End: August 11, 2024 Rachel Art IT PROGRAM AUDITOR, IT PROGRAM AUDITOR-C Attending Provider Active Start: August 11, 2024 End: August 11, 2024 Rachel Art IT PROGRAM AUDITOR, IT PROGRAM AUDITOR-C Referring Provider Active Start: August 11, 2024 End: August 11, 2024 Team Status: Inactive Member Role Status Oscar Stephens MD Primary Care Provider Active St art: August 11, 2024 End: August 11, 2024 Dr. Haroon Vieira DO Attending Provider Active Start : August 11, 2024 End: August 11, 2024 Dr. Haroon Vieira DO Emergency Provider Active Start : August 11, 2024 End: August 11, 2024 Team Status: Active Member Role Status Oscar Stephens MD Primary Care Provider Active St art: August 29, 2024 Dwayne Stephens MD Attending Provider Active Start : August 29, 2024 Dwayne Stephens MD Referring Provider Active Start : August 29, 2024 Team Status: Inactive Member Role Status Oscar Stephens MD Primary Care Provider Active St art: September 04, 2024 End: September 04, 2024 Eulogio Acuña MD Referring Provider Active Star t: September 04, 2024 End: September 04, 2024 Eulogio Acuña MD Emergency Provider Active Star t: September 04, 2024 End: September 04, 2024 Team Status: Inactive Member Role Status Oscar Stephens MD Primary Care Provider Active St art: August 29, 2024 End: August 29, 2024 Dwayne Stephens MD Attending Provider Active Start : August 29, 2024 End: August 29, 2024 Dwayne Stephens MD Referring Provider Active Start : August 29, 2024 End: August 29, 2024 Team Status: Inactive Member Role Status Oscar Stephens MD Primary Care Provider Active St art: September 04, 2024 End: September 04, 2024 Eulogio Acuña MD Attending Provider Active Star t: September 04, 2024 End: September 04, 2024 Eulogio Acuña MD Referring Provider Active Star t: September 04, 2024 End: September 04, 2024 Eulogio Acuña MD Emergency Provider Active Star t: September 04, 2024 End: September 04, 2024 Team Status: Inactive Member Role Status Oscar Stephens MD Primary Care Provider Active St art: September 24, 2024 End: September 25, 2024 Dr. Sumanth Coyne DO Referring Provider Active Start: September 24, 2024 End: September 25, 2024 Dr. Sumanth Coyne DO Emergency Provider Active Start: September 24, 2024 End: September 25, 2024 Team Status: Inactive Member Role Status Oscar Stephens MD Primary Care Provider Active St art: September 24, 2024 End: September 25, 2024 Dr. Sumanth Coyne DO Attending Provider Active Start: September 24, 2024 End: September 25, 2024 Dr. Sumanth Coyne DO Referring Provider Active Start: September 24, 2024 End: September 25, 2024 Dr. Sumanth Coyne DO Emergency Provider Active Start: September 24, 2024 End: September 25, 2024 Team Status: Inactive Member Role Status Oscar Stephens MD Primary Care Provider Active St art: September 25, 2024 End: September 25, 2024 Dwayne Stephens MD Attending Provider Active Start : September 25, 2024 End: September 25, 2024 Dwayne Stephens MD Referring Provider Active Start : September 25, 2024 End: September 25, 2024 Team Status: Active Member Role Status Oscar Stephens MD Primary Care Provider Active St art: September 25, 2024 Dr. Sumanth Patino MD Attending Provider Active S tart: September 25, 2024 Team Status: Inactive Member Role Status Oscar Stephens MD Primary Care Provider Active St art: October 01, 2024 End: October 01, 2024 Dr. Albert Sykes DO Emergency Provider Active Start: October 01, 2024 End: October 01, 2024 Team Status: Active Member Role Status Oscar Stephens MD Primary Care Provider Active St art: September 25, 2024 Dwayne Stephens MD Referring Provider Active Start : September 25, 2024 Dr. Sumanth Patino MD Attending Provider Active S tart: September 25, 2024 Team Status: Inactive Member Role Status Oscar Stephens MD Primary Care Provider Active St art: October 01, 2024 End: October 01, 2024 Dr. Albert Sykes DO Attending Provider Active Start: October 01, 2024 End: October 01, 2024 Dr. Albert Sykes DO Emergency Provider Active Start: October 01, 2024 End: October 01, 2024 Team Status: Inactive Member Role Status Oscar Stephens MD Primary Care Provider Active St art: October 16, 2024 End: October 16, 2024 Dwayne Stephens MD Attending Provider Active Start : October 16, 2024 End: October 16, 2024 Dwayne Stephens MD Referring Provider Active Start : October 16, 2024 End: October 16, 2024 Team Status: Inactive Member Role Status Oscar Stephens MD Primary Care Provider Active St art: October 17, 2024 End: October 17, 2024 Dwayne Stephens MD Attending Provider Active Start : October 17, 2024 End: October 17, 2024 Dwayne Stepehns MD Referring Provider Active Start : October 17, 2024 End: October 17, 2024 Team Status: Active Member Role Status Oscar Stephens MD Primary Care Provider Active St art: October 17, 2024 Dr. Sumanth Patino MD Attending Provider Active S tart: October 17, 2024 Team Status: Active Member Role Status Oscar Stephens MD Primary Care Provider Active St art: October 17, 2024 Dwayne Stephens MD Referring Provider Active Start : October 17, 2024 Dr. Sumnath Patino MD Attending Provider Active S tart: October 17, 2024 Team Status: Inactive Member Role Status Oscar Stephens MD Primary Care Provider Active St art: October 23, 2024 End: October 23, 2024 Dr. Neeta Gonzales DO Attending Provider Active Start: October 23, 2024 End: October 23, 2024 Dr. Neeta Gonzales DO Emergency Provider Active Start: October 23, 2024 End: October 23, 2024 Team Status: Inactive Member Role Status Oscar Stephens MD Primary Care Provider Active St art: November 04, 2024 End: November 04, 2024 Dwayne Stephens MD Referring Provider Active Start : November 04, 2024 End: November 04, 2024 HUSSEIN Melgoza Attending Provider Active Star t: November 04, 2024 End: November 04, 2024 Team Status: Inactive Member Role Status Oscar Stephens MD Primary Care Provider Active St art: November 04, 2024 End: November 04, 2024 Dr. Duran Miller MD Attending Provider Active S tart: November 04, 2024 End: November 04, 2024 Team Status: Inactive Member Role Status Oscar Stephens MD Primary Care Provider Active St art: November 13, 2024 End: November 13, 2024 Dwayne Stephens MD Referring Provider Active Start : November 13, 2024 End: November 13, 2024 HUSSEIN Bae Attending Provider Active Start: November 13, 2024 End: November 13, 2024 Team Status: Inactive Member Role Status Oscar Stephens MD Primary Care Provider Active St art: November 30, 2024 End: November 30, 2024 Eulogio Acuña MD Emergency Provider Active Star t: November 30, 2024 End: November 30, 2024 Reason for Visit (unrecogniz ed section and [...] Refill Specialty Diagnoses / Procedures Referred By Contac t Referred To Contact Gastroenterology Diagnoses Esophageal dysphagia Colon cancer screening Procedures Colonoscopy Screening OR COLONOSCOPY FLX DX W/COLLJ SPEC WHEN PFRMD OR COLON CA SCRN NOT HI RSK IND OR COLORECTAL SCRN; HI RISK IND OR COLONOSCOPY W/BIOPSY SINGLE/MULTIPLE OR COLSC FLX W/RMVL OF TUMOR POLYP LESION SNARE TQ OR COLSC FLX W/REMOVAL L[place]ION [place] [address] [place] [address] Referral ID Status Reason Start Date Expiration Date V isits Requested Visits Authorized [id number] Authorized 04/05/2023 10/02/2023 1 1 Reason Comments Abdominal Pain Right side abd pain with known ovarian cyst. Pt states pain increasing. Pt has nausea Reason Comments Urinary Incontinence Reason Comments Dyspnea On Exertion Specialty Diagnoses / Procedures Referred By Contac t Referred To Contact Diagnoses Pulmonary embolism, unspecified chronicity, unspecified pulmonary embolism type, unspecified whether acute cor pulmonale present (HCC) Procedures NA -[address] [facility] [place] [address] Referral ID Status Reason Start Date Expiration Date Visits Re quested Visits Authorized [id number] 1 1 Specialty Diagnoses / Procedures Referred By Contac t Referred To Contact Diagnoses Adnexal mass Adnexal mass [N94.89] Procedures OR OOPHORECTOMY PARTIAL/TOTAL UNI/BI [place] [address] [address] [address] [place] [address] Referral ID Status Reason Start Date Expiration Date Visits Re quested Visits Authorized [id number] 1 1 Reason Comments URI Recent PE-06/07. Now URI, negative covid test today. States recent exposure to RSV Reason Comments Hypertension Reason Comments Follow Up Phone Call Post Discharge F/U - attempt made. No answer. Specialty Diagnoses / Procedures Referred By Contac t Referred To Contact Cardiology Diagnoses Heart palpitations Procedures Holter Or Event Hydrographic Surveyor Lul Chin, CHEMIST STEROIDS-SOUND RECORDIST [id number] [facility] [place] [address] Referral ID Status Reason Start Date Expiration Date V isits Requested Visits Authorized [id number] Authorized 08/06/2023 08/05/2024 1 1 Reason Comments Trauma Smashed rt hand inde x finger in car door x 1 day Reason Comments Results Reason Comments Sore Throat Congested, stomach a tammy x 4 days Reason Comments Back Pain right low back migra ting into right leg pain x 10 days, moving furniture Reason Comments Cough Congestion, R ear pa in, [place], ST x1 week Goals (unrecognized section and content) INFORMATION SOURCE (unrecogn ized section and content) DATE CREATED AUTHOR 03/29/2022 [facility] DATE CREATED AUTHOR AUTHOR'S ORGANIZ ATION 03/19/2023 [facility] DATE CREATED AUTHOR AUTHOR'S ORGANIZ ATION 03/21/2023 [facility] DATE CREATED AUTHOR AUTHOR'S ORGANIZ ATION 05/06/2023 [facility] DATE CREATED AUTHOR AUTHOR'S ORGANIZ ATION 05/30/2023 [facility] DATE CREATED AUTHOR AUTHOR'S ORGANIZ ATION 06/17/2023 [facility] DATE CREATED AUTHOR AUTHOR'S ORGANIZ ATION 07/12/2023 [facility] DATE CREATED AUTHOR AUTHOR'S ORGANIZ ATION 09/16/2023 [facility] DATE CREATED AUTHOR AUTHOR'S ORGANIZ ATION 03/15/2024 [facility] DATE CREATED AUTHOR AUTHOR'S ORGANIZ ATION 07/21/2024 [facility] DATE CREATED AUTHOR AUTHOR'S ORGANIZ ATION [facility]/03/20[facility] <item> Privacy Markings (unrecogniz ed section [...] (New Bag - Prov ider: Dasha Dunn RN)1806 (Stopped - Provider: Dasha Dunn RN) sucralfate [...] & On Unit, FOR PACU GERD SYMPTOMS 1626 (Given - Provid er: Amanda Oneill RN) clindamycin in D5W (Cleocin) IVPB 900 mg (COMPLETED) 900 mg, intravenous, at 50 mL/hr, Administer over 60 Minutes, Once, On 11/27/23 at 1215, For 1 dose, Intraprocedure, premix [...] 273.5 mg = 5 mg/kg 54.7 kg [place] weight), intravenous, at 100 mL/hr, Administer over 60 Minutes, Once, On Sun05/28/23 at 1215, For 1 dose, Intraprocedure, Dosing of this medication varies based on severity of illness. Does this patient have sepsis or concern for sepsis (probable or documented infection plus systemic manifestations of infection)? No, Suspected Indication (Select all that apply): Surgical Wound Infection 1247 (New Bag - Prov ider: DIAMANTE Beryr)1347 (Stopped - Provider: DIAMANTE Berry) hydrALAZINE (Apresoline) [...] Amanda Oneill RN)1730 (Stopped - Provider: Amanda Onelil RN) PRN Medication Order 05/26/2023 05/27/2023 05/28/2023 [...] Oneill RN)1457 (Given - Provider: Amanda Oneill, RN)1514 (Given - Provider: Amanda Oneill, RN)1535 (Given - Provider: Amanda Oneill, YUNI)[id number] (Given - Provider: Amanda Oneill, YUNI) ondansetron (Zofran) injection 4 mg 4 mg, [...] BE BASED ON THE PRIMARY CLINICAL RECORDS. [facility]. provides no warranty or guarantee of the accuracy or completeness of information in this document.
[2024-12-04 07:46] VITALS: BP 126/86; PULSE 68; RESP 16; TEMP 36.6; O2SAT 98
== END 2024-12-04 07:48 | disposition home or self-care (01) ==
PROVIDERS: Emergency Provider Emergency Medicine; PCP Family Medicine; Visit Provider Emergency Medicine
DX: S80.12XA Contusion of left lower leg, initial encounter (principal); W20.8XXA Other cause of strike by thrown, projected or falling object, initial encounter; Y99.0 Civilian activity done for income or pay; I10 Essential (primary) hypertension; J45.909 Unspecified asthma, uncomplicated; K21.9 Gastro-esophageal reflux disease without esophagitis; Z79.01 Long term (current) use of anticoagulants; Z79.899 Other long term (current) drug therapy; Z86.711 Personal history of pulmonary embolism
CPT/HCPCS: 73590; 73610; 73630; 99283

== ENCOUNTER → 2024-12-15 | Outpatient (CLI) | payer MEDICAID, SELFPAY ==
--- NOTE | 2024-12-15 15:41 | RAD_ITS ---
PROCEDURE: ANKLE MIN 3 VIEWS 12/15/2024 REASON FOR EXAM: LEFT ANKLE INJURY TECHNIQUE: ANKLE MIN 3 VIEWS COMPARISON: 12/04/2024. FINDINGS: Soft tissue edema and swelling overlying the lateral malleolus. Enthesophyte formation at the calcaneal insertion of Achilles tendon. Normal visualized distal tibia and medial malleolus. Normal visualized distal fibula and lateral malleolus. Normal tibiotalar articulation and ankle mortise. Normal visualized talus. Normal visualized calcaneus. The visualized subtalar, talonavicular, calcaneocuboid and tarsal articulations are normal. RAD/Ankle min 3 Views IMPRESSION: Soft tissue edema and swelling. Reading Location: [facility]
--- NOTE | 2024-12-15 15:41 | RAD_ITS ---
PROCEDURE: FOOT MIN 3 VIEWS 12/15/2024 REASON FOR EXAM: LEFT FOOT INJURY TECHNIQUE: FOOT MIN 3 VIEWS COMPARISON: 12/04/2024. FINDINGS: Enthesophyte formation at the calcaneal insertion of Achilles tendon, unchanged. Normal talus, calcaneus, and tarsal bones. Normal visualized subtalar, talonavicular, calcaneocuboid, tarsal and tarsometatarsal articulations. Normal metatarsi. Normal metatarsophalangeal joint of the great toe. Normal tibial and fibular sesamoid bones. Normal interphalangeal joint of the great toe. Normal phalanges of the great toe. Normal second through fifth metatarsophalangeal joints. Normal interphalangeal joints of the lesser toes. Normal phalanges of the lesser toes. RAD/Foot min 3 Views IMPRESSION: No evidence for acute abnormality. Reading Location: [facility]
== END | disposition home or self-care (01) ==
LOC: MTRAD 15:41
PROVIDERS: PCP Family Medicine; Referring Provider Family Medicine; Visit Provider Family Medicine
DX: S99.912A Unspecified injury of left ankle, initial encounter (principal); X58.XXXA Exposure to other specified factors, initial encounter
CPT/HCPCS: 73610; 73630

== ENCOUNTER → 2025-01-13 | Outpatient (CLI) | payer MEDICAID, SELFPAY ==
[2025-01-13 13:40] LABS: Hematocrit 38.9 % (37-47); Hemoglobin 13.1 g/dL (12.0-15.0); Immature Granulocytes Count 0.020 X10^3/uL (0.0-0.0); Mean Corp Hgb Conc 33.7 g/dL (32-36); Mean Corpuscular Volume 90.5 fL (81-99); Mean Platelet Vol. 8.6 fl (6.2-12.0); NRBC Flagged by Analyzer 0 % (0-5); Platelet Count 325 K/mm3 (150-450); RBC Distribution Width CV 13.2 % (11.6-14.6); RBC Distribution Width SD 43.7 fl (35.1-43.9); Red Blood Count 4.30 M/mm3 (4.2-5.4); White Blood Count 6.8 K/mm3 (4.4-11.0)
[2025-01-13 15:15] LABS: AST(SGOT) 49 U/L (<=31); Alanine Aminotransfer ALT/SGPT 49 U/L (<=34); Albumin, Serum 3.9 g/dL (3.5-5.0); Alkaline Phosphatase 96 U/L (35-104); Anion Gap 12 (5-15); BUN 11 mg/dL (4-19); BUN/Creat Ratio 11.5 RATIO (10-20); Calcium,Total 9.1 mg/dL (7.6-11.0); Carbon Dioxide 20.9 mmol/L (21.0-32.0); Chloride 105 mmol/L (98-108); Globulin 3.2 g/dL (2.2-4.2); Glucose 132 mg/dL (70-99); Potassium 4.2 mmol/L (3.3-5.1)
== END | disposition home or self-care (01) ==
LOC: PSN 13:02
PROVIDERS: Student in an Organized Health Care Education/Training Program; PCP Family Medicine; Referring Provider Internal Medicine Cardiovascular Disease; Visit Provider Internal Medicine Cardiovascular Disease
DX: I48.0 Paroxysmal atrial fibrillation (principal); R11.0 Nausea; K29.70 Gastritis, unspecified, without bleeding; K58.9 Irritable bowel syndrome, unspecified
CPT/HCPCS: 36415; 80053; 85025; 93225; 93226

== ENCOUNTER → 2025-01-14 | Outpatient (CLI) | payer MEDICAID, SELFPAY ==
--- NOTE | 2025-01-14 12:34 | VDLE_ITS ---
Reason For Study Reason For Study: BLE Edema RIGHT LEFT CFV is compressible, spontaneous, phasic, competent CFV is compressible, spontaneous, phasic, competent, and demonstrates normal augmentation. and demonstrates normal augmentation. FV is compressible, spontaneous, phasic, competent FV is compressible, spontaneous, phasic, competent and demonstrates normal augmentation. and demonstrates normal augmentation. POP V is compressible, spontaneous, phasic, competent POP V is compressible, spontaneous, phasic, competent and demonstrates normal augmentation. and demonstrates normal augmentation. T/P Trunk is compressible. T/P Trunk is compressible. PTV is compressible. PTV is compressible. RT PerV is compressible. LT PerV is compressible. SFJ is competent and measures 0.73 cm. SFJ is competent and measures 0.62 cm. GSV proximal thigh measures 0.40 x 0.40 cm. GSV proximal thigh measures 0.39 x 0.42 cm. GSV at knee measures 0.43 x 0.44 cm. GSV at knee measures 0.47 x 0.51 cm. GSV is competent throughout. GSV above knee is competent. SSV mid calf is competent and measures 0.22 x 0.26 GSV below knee is INCOMPETENT for greater than 0.5 cm. seconds. Procedure SSV mid calf is competent and measures 0.34 x 0.35 Exam performed in department. cm. This is a venous duplex using B-mode, color flow and spectral Doppler. The exam was diagnostic. Patient was scanned in reverse Trendelenburg position during reflux assessment. VL/Venous Duplex US - Zander Extrem Interpretation Summary Deep veins of the bilateral lower extremities are patent and compressible segme ntally. There is no evidence of bilateral lower extremity deep vein thrombosis. The bilateral great saphenous veins appea r patent and compressible segmentally. Positive for reflux in the left great saphenous vein below the knee. Ordering Physician: Trav Donnelly Referring Physician: Dwayne Dorado Performed By: Deniz Patrick, RVT
== END | disposition home or self-care (01) ==
LOC: CVS 12:30
PROVIDERS: PCP Family Medicine; Referring Provider Student in an Organized Health Care Education/Training Program; Visit Provider Student in an Organized Health Care Education/Training Program
DX: I87.2 Venous insufficiency (chronic) (peripheral) (principal); R60.0 Localized edema
CPT/HCPCS: 93970

== ENCOUNTER 2025-03-02 20:04 | Emergency (ER) | payer MEDICAID, SELFPAY ==
[2025-03-02 20:05] VITALS: BP 183/113; PULSE 72; RESP 18; TEMP 36.9; O2SAT 99; BMI 32.8
--- NOTE | 2025-03-02 20:17 | EKG12_ITS ---
Test Reason : CP Blood Pressure : */* mmHG Vent. Rate : 66 BPM Atrial Rate : 66 BPM P-R Int : 162 ms QRS Dur : 76 ms QT Int : 394 ms P-R-T Axes : 37 25 60 degrees QTcB Int : 413 ms Normal sinus rhythm Normal ECG Confirmed by Trav Irizarry ([id number]), market editor BONNIE SINGLETARY ([id number]) on 03/03/2025 11:04:12 AM Referred By: JAZZ Confirmed By: Trav Irizarry
[2025-03-02 20:20] VITALS: O2SAT 100
--- NOTE | 2025-03-02 20:20 | RAD_ITS ---
PROCEDURE: CHEST PA AND LATERAL 03/02/2025 REASON FOR EXAM: CHEST PAIN TECHNIQUE: Procedure Code: RADCXR Modality: DX Procedure: CHEST PA AND LATERAL COMPARISON: 09/04/24 FINDINGS: Left lower lobe atelectasis. no focal consolidation. No pleural effusion or pneumothorax. Cardiac silhouette is within normal limits. No acute fractures. RAD/Chest PA and Lateral IMPRESSION: Left lower lobe atelectasis. no focal consolidation. Reading Location: [facility]
[2025-03-02 20:29] LABS: Hematocrit 38.7 % (37-47); Hemoglobin 13.4 g/dL (12.0-15.0); Immature Granulocytes Count 0.040 X10^3/uL (0.0-0.0); Mean Corp Hgb Conc 34.6 g/dL (32-36); Mean Corpuscular Volume 90.6 fL (81-99); Mean Platelet Vol. 9.8 fl (6.2-12.0); NRBC Flagged by Analyzer 0.2 % (0-5); POSITIVE COUNT YES; Platelet Count 148 K/mm3 (150-450); RBC Distribution Width CV 13.3 % (11.6-14.6); RBC Distribution Width SD 43.4 fl (35.1-43.9); Red Blood Count 4.27 M/mm3 (4.2-5.4); White Blood Count 8.0 K/mm3 (4.4-11.0)
--- OUTSIDE RECORDS SUMMARY | 2025-03-02 20:36 | XMS RPT_ITS | CCD ---
Author Organization [facility] Care Team Providers Care Framing Manager Name Role Phone Francisco Cason Unavailable Unavailable Unavailable Kimberly Cason MD Primary Care Provider Kimberly Cason MD Primary Care Provider ELIZABETH LOWE Unavailable Yoav HSIEH MD [facility] Primary Care Physician [phone] Yemi Toribio Attending Unavail able [facility] Primary Care UnavailKIMBERLY Hardin Attending Unavailabl e [facility] Primary Care Unavailabl e YOAV, [facility] JOSE C Primary Care Unavailrose e ELIZABETH LOWE Attending Unavailable AIDAN SHAH Unavailable AIDAN LEMONS Unavailable ROSE JEAN Unavailable Kimberly Cason Unavailable [phone] Unavailable Ronan Delgado Unavailable Unavailable Francisco Cason MD Primary Care Provider Francisco Cason MD Unavailable Roxana Price Unavailable Unavailable Deejay Cain Referring Unavailable Deejay Cain Attending Unavailable Dr. Francisco Cason Primary Care Unavailable Dr. Ronan Delgado Attending Unava kimberlee Wilson, Dr. Farnaz López Referring Unavailab Dr. Francisco Rubio Primary Care Unavailable Dr. Demarco Andrea Admitting Unavailable Unavailable Unavailable Francisco Cason MD Unavailable Roxana Price Unavailable Unavailable Blayne Weeks MD Primary Care Provider [phone] Francisco CASON Primary Care Unavailable JANNY BAI Attending Unavailable JANNY BAI Referring Unavailable BLAYNE WEEKS Primary Care Unavailable Kimberly Cason MD Primary Care Provider Sonja, Dr. Marinelli Attending Unavailable Sonja, Dr. Marinelli Referring Unavailable Yoav, Dr. Francisco Woodall Primary Care Unavailable Galilea, Dr. German Rhodes Attending Unava ilable Yoav, Dr. Francisco Woodall Primary Care Unavailable MAIN REED Admitting Unavailable MAIN REED Attending Unavailable DESI, BLAYNE Primary Care Unavailable DESI, BLAYNE Attending Unavailable YOAV, Francisco Edwards Primary Care Unavailable WEEKS, BLAYNE Referring Unavailable JANNY BAI Attending Unavailable YOAV, H J Primary Care Unavailable WEEKS, BLAYNE Primary Care Unavailable MAIN REED Attending Unavailable WEEKS, BLAYNE Primary Care Unavailable DESI, BLAYNE Attending Unavailable WEEKS, BLAYNE Primary Care Unavailable MAIN REED Attending Unavailable WEEKS, BLAYNE Primary Care Unavailable Unavailable Primary Care Provider Unavailabl e Aidan Shah DO Unavailable [phone] KIMBERLY CASON Primary Care Unavailable MELINDA COELLO Referring Unavailable ZAINAB CROFT Attending Unavailable ZAINAB CROFT Admitting Unavailable Marylin SWEET Unavailable KIMBERLY CASON Primary Care Unavailable Unavailable Primary Care Provider Unavailrose e LUL CHIN Attending Unavailable DESI, BLAYNE Primary Care Unavailable GERMAN CAPLUL GRAVES Referring Unavailable WEEKS, BLAYNE Primary Care Unavailable WEEKS, BLAYNE Primary Care Unavailable VERONA COOK Attending Unavailable Dwayne Stephens MD Primary Care Provider Dwayne Stephens MD Unavailable Dwayne Stephens MD Primary Care Provider Dwayne Stephens MD Referring Provider [phone] Rachel Ureña Attending Provider [phone] Mo CHAPIN, Dr. Garcia Attending Provider Dr. Jose Hassan DO Other Provider Dr. Albert Sykes DO Attending Provider Dr. Albert Sykes DO Emergency Provider Kaelyn GUSSET FOLDER-C, Rachel Referring Provider Naif HSIEH, Dr. De Santiago Admit Provider Naif HSIEH, Dr. De Santiago Attending Provider Naif HSIEH, Dr. De Santiago Referring Provider Dr. Sumanth Coyne DO Attending Provider Dr. Sumanth Coyne DO Emergency Provider Dwayne Stephens MD Attending Provider Dr. Haroon Vieira DO Attending Provider Dr. Haroon Vieira DO Emergency Provider Eulogio Acuña MD Referring Provider Eulogio Acuña MD Emergency Provider Dwayne Stephens MD Primary Care Provider Avoca GUSSET FOLDER-C, Rachel Attending Provider Avoca GUSSET FOLDER-C, Rachel Referring Provider Dr. Albert Sykes DO Emergency Provider Naif HSIEH, Dr. De Santiago Admit Provider Dr. Anyi Disla MD Attending Provider Dr. Anyi Disla MD Referring Provider Dr. Sumanth Coyne DO Attending Provider Dr. Sumanth Coyne DO Emergency Provider Dwayne Stephens MD Attending Provider Dwayne Stephens MD Referring Provider Dr. Haroon Vieira DO Attending Provider Dr. Haroon Vieira DO Emergency Provider Eulogio Acuña MD Referring Provider Eulogio Acuña MD Emergency Provider Eulogio Acuña MD Attending Provider Dr. Sumanth Coyne DO Referring Provider Dr. Sumanth Patino MD Attending Provider Dwayne Stephens MD Primary Care Provider Dr. Albert Sykes DO Emergency Provider Naif HSIEH, Dr. De Santiago Admit Provider Naif HSIEH, Dr. De Santiago Attending Provider Naif HSIEH, Dr. De Santiago Referring Provider Kaelyn GUSSET FOLDER-CRachel Attending Provider Kaelyn GUSSET FOLDER-CRachel Referring Provider Dr. Albert Sykes DO Attending Provider Kat HSIEH, Dwayne Primary Care Provider Dr. Albert Sykes DO Emergency Provider Dr. Neeta Gonzales DO Attending Provider Dr. Neeta Gonzales DO Emergency Provider Mirian Lynch Attending Provider Paul HSIEH, Dr. Garzon Attending Provider Uma Mendes Attending Provider Kat HSIEH, Dwayne Primary Care Provider Dr. Sumanth Coyne DO Attending Provider Dr. Sumanth Coyne DO Emergency Provider Kat HSIEH, Dwayne Primary Care Provider Dwayne Stephens MD Attending Provider Dwayne Stephens MD Referring Provider Dr. Ellis Irizarry MD Attending Provider Dr. Jovani Thurman DO Emergency Provider JAYME STEPHENS MD Primary Care Physician Unavailab valentina Stephens MD, Chalon Primary Care Provider Dr. Jovani Thurman DO Attending Provider KAT HSIEH, JAYME Primary Care Unavailable BUSHRA LOWE DO Attending Unavailable Kat HSIEH, Chalon Primary Care Provider Kat HSIEH, Dwayne Attending Provider Kat HSIEH, Dwayne Referring Provider Domenico HSIEH, Eulogio Attending Provider Domenico HSIEH, Eulogio Emergency Provider Juan C HSIEH, Dr. Ravi Referring Provider Uma Mendes Other Provider Andrzej DPCarlos, Dr. Ravi Attending Provider Andrzej DPM, Dr. Ravi Referring Provider Naif HSIEH, Dr. De Santiago Attending Provider [phone] KAT, CHALON Primary Care Unavailable DEEJAY FRANCES Attending Unavailable KAT, CHALON Primary Care Unavailable MJ HADDAD Attending Unavailable KAT, CHALON Primary Care Unavailable Kat, Chalon Referring Unavailable Kat, Chalon Primary Care Unavailable Rachel Art Attending Unavailable Kat, Chalon Primary Care Unavailable Kat, Chalon Referring Unavailable Kat, Chalon Attending Unavailable Kat, Chalon Referring Unavailable Kat, Chalon Attending Unavailable Kat, Chalon Primary Care Unavailable Anyi Disla Admitting Unavailable Anyi Disla Attending Unavailable Kat, Chalon Primary Care Unavailable Kat, Chalon Primary Care Unavailable Kat, Chalon Referring Unavailable Mirian Gurrola Attending Unavailable Kat, Chalon Referring Unavailable Uma Harper Attending Unavailable Kat, Chalon Primary Care Unavailable Haroon Vieira Attending Unavailable Kat, Chalon Primary Care Unavailable Kat, Chalon Primary Care Unavailable Ellis Donnelly Attending Unavailable Ellis Donnelly Referring Unavailable Kat, Chalon Primary Care Unavailable Aidan Davis Attending Unavailable Kat, Chalon Primary Care Unavailable Albert Sykes Attending Unavailable Kat, Chalon Referring Unavailable Kat, Chalon Primary Care Unavailable Kat, Chalon Attending Unavailable Uma Harper Attending Unavailable SalvadornasUma perry Referring Unavailable Kat, Chalon Primary Care Unavailable CtnesAnyi fonseca Attending Unavailable WyneskiAnyi Referring Unavailable Kat, Chalon Primary Care Unavailable Kat, Chalon Primary Care Unavailable Avoca, Rachel Referring Unavailable Kaelyn, Rachel Attending Unavailable Kat, Chalon Primary Care Unavailable Kat, Chalon Referring Unavailable Carey, Sumanth Attending Unavailable Kat, Chalon Primary Care Unavailable Kat, Chalon Referring Unavailable AtanasovUma Attending Unavailable Kaelyn, Rachel Attending Unavailable Kaelyn, Rachel Referring Unavailable Kat, Chalon Primary Care Unavailable Atanasov, Uma Attending Unavailable Kat, Chalon Primary Care Unavailable Atanasov, Uma Referring Unavailable Kat, Chalon Referring Unavailable Kat, Chalon Primary Care Unavailable Jose Hassan Attending Unavailable Kat, Chalon Primary Care Unavailable WynesAnyi fonseca Attending Unavailable CtneskiAnyi Admitting Unavailable Kat, Chalon Primary Care Unavailable Kat, Chalon Referring Unavailable Kat, Chalon Attending Unavailable Kat, Chalon Primary Care Unavailable Jovani Thurman Attending Unavailable Kat, Chalon Primary Care Unavailable Uma Harper Consulting Unavailable Juan C, Ellis Referring Unavailable Ellis Irizarry Attending Unavailable Kat, Chalon Primary Care Unavailable Kat, Chalon Referring Unavailable Kat, Chalon Attending Unavailable Kat, Chalon Primary Care Unavailable Akt, Chalon Referring Unavailable Kat, Chalon Attending Unavailable Kat, Chalon Primary Care Unavailable Galileo, Mirian Referring Unavailable GalileoEdmundoMirian Attending Unavailable Kat, Chalon Primary Care Unavailable Reodica Eulogio Attending Unavailable Reodica, Eulogio Referring Unavailable Kat, Chalon Primary Care Unavailable Schwiger, Sumanth Attending Unavailable Schwiger, Sumanth Referring Unavailable Kat, Chalon Primary Care Unavailable Albert Sykes Attending Unavailable Kat, Chalon Referring Unavailable Kat, [...] Primary Care Unavailable Kat, Chalon Referring Unavailable Meredith, Uma Attending Unavailable Kat, Chalon Primary Care Unavailable Friend, Jose Attending Unavailable Kat, Chalon Primary Care Unavailable Mirian Gurrola Attending Unavailable Kat, Chalon Referring Unavailable Kat, Chalon Primary Care Unavailable Duran Miller Attending Unavailable Kat, Chalon Primary Care Unavailable Kat, Chalon Referring Unavailable Atanasov, Uma Attending Unavailable Kat, Chalon Primary Care Unavailable Kat, Chalon Referring Unavailable Irizarry, Ellis Attending Unavailable Irizarry, Ellis Attending Unavailable Irizarry, Ellis Referring Unavailable Kat, Chalon Primary Care Unavailable Kat, Chalon Primary Care Unavailable Letts, Sumanth Attending Unavailable Andrzej, Ellis Referring Unavailable Kat, Chalon Primary Care Unavailable Kat, Chalon Referring Unavailable Letts, Sumanth Attending Unavailable Naif, Anyi Attending Unavailable Anyi Disla Referring Unavailable Kat, Chalon Primary Care Unavailable Sumanth Coyne Attending Unavailable Kat, Chalon Primary Care Unavailable Kat, Chalon Referring Unavailable Kat, Chalon Primary Care Unavailable Friend, Jose Consulting Unavailable Friend, Jose Attending Unavailable Allergies Allergy Classification Reported Allergen(s) Allergy Type Date of Onset Reaction(s) Facility Penicillins (antibiotic) (6 sources) Penicillins; Translations: [Penicillins] Drug Allergy -[facility] Work Phone: (20 sources) Codeine; Translations: [CODEINE] Drug Allergy 03-13-20 05 Rash [facility] (14 sources) Penicillins; Translations: [PENICILLINS] Drug Allergy 03-13-20 05 Anaphylaxis [facility] (20 sources) Sulfamethoxazole / Trimethoprim; Translations: [SULFAMETHOXAZOLE-T RIMETHOPRIM] Drug Allergy 03-13-20 05 Other [facility] Work Phone: (20 sources) traMADol; Translations: [TRAMADOL HCL] Drug Allergy 03-13-20 05 Intolerance, Unknown [facility] (20 sources) Naproxen; Translations: [Naproxen TABS] Drug Allergy 03-20-20 23 Other, GI Upset [facility] Work Phone: (6 sources) Penicillins; Translations: [Penicillins] Allergy to drug (finding) Anaphylaxis [facility] Work Phone: (20 sources) Penicillins; Translations: [Penicillins] Drug Allergy 03-13-20 05 Anaphylaxis, Hives [facility] (7 sources) Penicillin; Translations: [penicillin] Drug Allergy ANAPHYLAXIS [facility] (6 sources) Naproxen; Translations: [NAPROXEN] Drug Allergy 03-20-20 23 [facility] (8 sources) Bee Venom Protein (Honey Bee); Translations: [BEE VENOM PROTEIN (HONEY BEE)] Propensity to adverse reactions 08-06-19 24 Anaphylaxis [facility] (15 sources) Penicillins Allergy to substance 09-05-19 25 Anaphylaxis [facility] (2 sources) Penicillins Drug Allergy 03-13-20 05 Anaphylaxis [facility] (1 source) Codeine Drug Allergy 12-05-19 [facility] (1 source) Penicillins Drug allergy (disorder) 12-05-19 [facility] Rep[facility] NEGATED: Highlighted row has been ruled out! (1 source) natural latex rubber; Translations: [LATEX, NATURAL RUBBER] Drug allergy (disorder) [place] NEGATED: Highlighted row has been ruled out! (1 source) No IV Contrast Allergy.; Translations: [IV Dye, Iodine Containing] Drug allergy (disorder) [place] Medications Current Medications Medication Drug Class(es) Dates [...] needed. 0 05/28/2023 Discontinued (Med List Cleanup) [id number] 200 actuat albuterol 0.09 mg/actuat metered dose inhaler (20 sources) beta2-Adrenergic Agonist Start: 01-06-2025 albut all (PROVENTIL) 2.5 mg /3 mL (0.083 %) nebulizer solution Indications: Moderate persistent asthmatic bronchitis with acute exacerbation (HCC) Use 3 mL via nebulizer every 4 hours as needed for wheezing/shortness of breath. 60 mL 01/06/2025 Active Start: 01-06-2025 take 2 puff(s) by in halation every four hours as needed for wheezing albuterol HFA (PROVENTIL HFA, VENTOLIN HFA) 90 mcg/actuation inhaler Indications: Moderate persistent asthmatic bronchitis with acute exacerbation (HCC) Inhale 2 puffs as instructed every 4 hours as needed for wheezing/shortness of breath. 8 g 01/06/2025 Active Start: 03-20-2023 End: 03-19-2024 take 2 puff(s) [...] of Breath. Inhale over 5-15 minutes amLODIPine 10 mg oral tablet (20 sources) Dihydropyridine Calcium Channel Robby Start: 12-03-19 take 1 tablet by mouth once daily Amlodipine 10 mg tablet Active 10 mg PO DAILY December 02, 2024 12:00am Start: 11-26-2024 End: 12-02-2024 take 2 tablets by mouth once daily Amlodipine 5 mg tablet Discontinued 10 mg PO DAILY November 26, 2024 1:33pm December 02, 2024 1:25pm blood pressure Start: 08-06-2023 End: 11-26-2024 take 1 tablet by mouth once amLODIPine (NORVASC) 5 mg tablet Take 1 tablet by mouth every afternoon. 09/20/2023 Active Comment on above: Take 1 tablet by arnol th every afternoon. apixaban 5 mg oral tablet (20 sources) Factor Xa Inhibitor Start: 12-04-2023 take 1 tablet by mouth twice daily Apixaban (Eliquis) 5 mg tablet Active 5 mg PO TWICE A DAY December 04, 2023 12:00am blood thinner Start: 06-11-2023 End: 10-01-2023 take 1 tablet by mouth twice daily apixaban (ELIQUIS) 5 mg tab(s) Take 5 mg by mouth two times a day. 06/11/2023 10/01/2023 Comment on above: Take 5 mg by mouth t wo times a day. azithromycin 250 mg oral tablet (4 sources) Macrolide Antimicrobial Start: 01-28-20 End: 02-02-20 take 2 tablets by mouth once daily, then take 1 tablet by mouth once daily azithromycin (ZITHROMAX) 250 mg tablet Take 2 tablets by mouth once daily for 1 day, THEN 1 tablet once daily for 4 days. 6 tablet 01/27/2025 02/01/2025 Active Start: 07-18-2024 End: 07-23-2024 take 2 tablets by mouth once daily, [...] Jan, Active benzonatate 100 mg oral capsule (2 sources) Non-narcotic Antitussive Start: 01-27-2025 End: 02-03-2025 take 1 capsule by mouth every eight hours as needed benzonatate (TESSALON PERLE) 100 mg capsule Take 1 capsule by mouth three times a day as needed for cough for up to 7 days. 21 capsule 01/27/2025 02/03/2025 Active Start: 10-09-2023 End: 10-19-2023 take 2 capsules [...] source) Start: 05-28-2023 lactated Ringer's infusion carvedilol 3.125 mg oral tablet (20 sources) alpha-Adrenergic Robby, beta-Adrenergic Robby Start: 12-02-2024 take 1 tablet by mouth once daily Carvedilol 3.125 mg tablet Active 3.125 mg PO DAILY December 02, 2024 1:23pm heart Start: 07-30-2024 End: 12-02-2024 take 1 tablet by mouth once daily Carvedilol 25 mg tablet Discontinued 25 mg PO DAILY July 30, 2024 1:00am December 02, 2024 1:24pm Start: 05-05-2024 End: 12-02-2024 take 1.5625 mg by mouth once daily Carvedilol 3.125 mg tablet Discontinued 1.5625 mg PO DAILY May 05, 2024 1:00am December 02, 2024 1:26pm heart Start: 12-04-2023 End: 05-05-2024 take 1 tablet [...] th two times a day with meals. colestipol hydrochloride 1000 mg oral tablet (5 sources) Bile Acid Sequestrant Start: 12-17-19 Colestipol 1 gram tablet Active 1 g PO ONCE 60 2 December 16, 2024 12:00am cyclobenzaprine hydrochloride 5 mg oral tablet (20 sources) Muscle Relaxant Start: 01-04-20 End: 03-24-20 take 1 tablet by mouth three times daily cyclobenzaprine (FLEXERIL) 5 mg tablet Take 5 mg by mouth three times a day. 01/04/2024 Active Start: 12-04-2023 End: 01-22-2024 take 1 tablet by mouth three times daily as needed for muscle spasms Cyclobenzaprine 10 mg tablet Discontinued 10 mg PO THREE TIMES A DAY as needed for Muscle Spasm 20 0 January 03, 2024 12:00am January 22, 2024 8:21pm docusate sodium 100 mg oral capsule (5 sources) Start: 03-12-2017 take 1 capsule by mouth once daily as needed Colace 100 MG 1 capsule as needed Orally Daily prn for 30 day(s) Mar, Active doxycycline monohydrate 100 mg oral tablet (16 sources) Tetracycline -class Drug Start: 01-06-2025 End: 01-13-2025 take 1 tablet by mouth twice daily doxycycline monohydrate 100 mg tablet Indications: Sinobronchitis Take 1 tablet by mouth two times a day for 7 days. 14 tablet 01/06/2025 01/13/2025 Active Start: 05-09-2013 End: 06-10-2013 take 1 capsule by mouth twice daily Doxycycline Hyclate 100 MG capsule Discontinued 100 mg PO TWICE A DAY 20 0 May 09, 2013 1:00am June 10, 2013 5:48pm [id number] 0.3 ml EPINEPHrine 1 mg/ml auto-injector (20 [...] 04, 2023 12:00am July 30, 2024 10:17pm stomach Start: 05-28-2023 End: 05-28-2023 famotidine PF (Pepcid) [...] nasal spray (20 sources) Corticosteroid Start: 024 End: 025 Fluticasone Propionate 50 mcg/actuation spray,suspension Discontinued 2 NMA INTRANASAL DAILY December 04, 2023 12:00am July 30, 2024 10:17pm congestion Start: 10-09-2023 take 2 spray(s) nasa l route once daily fluticasone (FLONASE ALLERGY RELIEF) 50 mcg/actuation nasal spray Use 2 sprays in each nostril once daily. 11.1 mL 01/27/2025 Active Start: 11-03-2020 End: 08-06-2023 take 1 [...] 05/19/2023 Active take 1 tablet by arnol every six hours at mealtime as needed [...] Ordered: 08-Mar-2023 Joseline Uriostegui Generic Substitution Allowed pantoprazole 40 mg delayed release oral tablet (20 sources) Proton Pump Inhibitor Start: 11-14-19 take 1 tablet by mouth twice daily Pantoprazole 40 mg tablet,delayed release (DR/EC) Active 40 mg PO TWICE A DAY 90 2 November 13, 2024 12:00am Start: 12-04-2023 End: 11-26-2024 take 1 tablet by mouth once daily Pantoprazole 40 mg tablet,delayed release (DR/EC) Discontinued 40 mg PO DAILY December 04, 2023 12:00am November 26, 2024 1:34pm reflux Start: 05-14-2023 pantoprazole ( ProtoNix) injection 40 [...] by mouth once daily. polyethylene glycol 3350 90989 mg powder for oral solution (2 sources) Osmotic Laxative Start: End: polyethylene glycol (Glycolax, Miralax) 17 gram/dose powder Indications: Adnexal mass Take 17 g by mouth once daily. 510 g 0 05/28/2023 06/27/2023 Active polyethylene glycol 3350 [id number] mg / potassium chloride 1480 mg / sodium bicarbonate 5720 mg / sodium chloride 98120 mg powder for oral solution (16 sources) Osmotic Laxative Start: polyethylene glycol-electrolytes (Nulytely) solution 4,000 mL potassium chloride 10 meq extended release oral capsule (20 sources) Start: take 1 capsule by mouth once daily Potassium Chloride 10 mEq capsule, extended release Active 10 meq PO daily November 26, 2024 12:00am Start: 03-06-2024 End: 07-30-2024 take 1 capsule by mouth once daily Potassium Chloride 10 mEq capsule, extended release Discontinued 10 meq PO daily March 06, 2024 12:00am July 30, 2024 10:18pm supplement predniSONE 20 mg oral tablet (20 sources) Start: 01-06-2025 End: 01-11-2025 take 2 tablets by mouth once daily at mealtime predniSONE (DELTASONE) 20 mg tablet Indications: Sinobronchitis Take 2 tablets by mouth once daily for 5 days. Take daily with food. 10 tablet 01/06/2025 01/11/2025 Active Start: 10-22-2023 End: 10-28-2023 predniSONE (DELTASONE) 10 [...] 2 days, 1 tab for 2 days rOPINIRole 0.25 mg oral tablet (18 sources) Nonergot Dopamine Agonist Start: 12-04-2023 End: 07-30-2024 rOPINIRole (REQUIP) 0.25 mg tablet AT BEDTIME NEEDED as needed for restless legs 12/04/2023 Active sertraline 50 mg oral tablet (6 sources) Serotonin Reuptake Inhibitor take 1 tablet by mouth every twenty-four hours Zoloft 50 mg 1 tablet Orally Once a day for 30 day(s) Active Work note (1 source) Start: 03-14-2023 Work note ; Damari was admitted to the hospital on 03/08/23 and discharged on 03/14/23.She may return to work with no restrictions on or after 03/19/23 Quantity: 1 Refills: 0 Ordered: 14-Mar-2023 Ronan Delgado Start: 14-Mar-2023 Generic Substitution Allowed Completed/Discontinued Medications Medication Drug Class(es) Dates Sig (Normalized) Sig (Original) acetaminophen 325 mg / HYDROcodone bitartrate 5 mg oral tablet (20 sources) Opioid Agonist Start: 11-26-2024 End: 12-02-2024 Hydrocodone-Acetami nophen 5-325 mg tablet Discontinued 1 {tbl} PO TWICE A DAY as needed November 26, 2024 12:00am December 02, 2024 1:25pm Start: 01-29-2016 End: 12-04-2023 Hydrocodone-Acetaminophen (V icodin 5-300 Mg Tablet) 1 EACH tablet Discontinued 1 {tbl} PO EVERY 6 HOURS NEEDED as needed for Pain January 29, 2016 12:00am December 04, 2023 7:36am Start: 2015 End: 01-08-2024 HYDROcodone-acetaminophen (N ORCO) 5-325 mg per tablet EVERY 4 HOURS NEEDED as needed for Pain 2015 Active acetaminophen 325 mg / oxyCODONE hydrochloride 5 mg oral tablet (20 sources) Opioid Agonist Start: 06-19-2024 End: 06-27-2024 Oxycodone-Acetaminophen 5-32 5 mg tablet Discontinued 1 {tbl} PO EVERY 8 HOURS NEEDED as needed for Pain 10 3 0 June 19, 2024 June 27, 2024 10:13pm Hydronephrosis with urinary obstruction due to renal calculus Hydronephrosis with renal and ureteral calculous obstruction Start: 06-09-2024 End: 06-18-2024 Oxycodone-Acetaminophen (Per cocet) 5-325 mg tablet Discontinued 1 {tbl} PO Q8H as needed for pain 10 3 0 June 09, 2024 June 18, 2024 11:35am Hydronephrosis with urinary obstruction due to renal calculus Hydronephrosis with renal and ureteral calculous obstruction Start: 04-06-2020 take 1 tablet by arnol th every six hours as needed for pain oxyCODONE-Acetaminophen 5-325 MG Oral Tablet TAKE ONE TABLET BY MOUTH EVERY 6 HOURS NEEDED FOR PAIN Quantity: 120 Refills: 0 Ordered: 09-Apr-2020 DO Start : 06-Apr-2020 Active Albuterol Sulfate (Proair Hf a) 1 PUFF inhaler (15 sources) Start: 05-09-2013 End: 07-30-2024 Albuterol Sulfate [...] 0 04/05/2022 08/06/2023 Discontinued (Med List Cleanup) cilostazol 50 mg oral tablet (8 sources) Phosphodiesterase 3 Inhibitor Start: 11-26-2024 End: 12-02-2024 take 1 tablet by mouth twice daily Cilostazol 50 mg tablet Discontinued 50 mg PO TWICE A DAY November 26, 2024 12:00am December 02, 2024 1:24pm ciprofloxacin 500 mg oral tablet (20 sources) Quinolone Antimicrobial Start: 06-28-2024 End: 07-30-2024 take 1 tablet by mouth twice daily Ciprofloxacin Hcl 500 mg tablet Discontinued 500 mg PO TWICE A DAY 14 June 28, 2024 1:00am July 30, 2024 10:17pm Start: 06-09-2024 End: 06-18-2024 take 1 tablet by mouth twice daily Ciprofloxacin Hcl 500 mg tablet Discontinued 500 mg PO TWICE A DAY 6 June 09, 2024 1:00am June 18, 2024 11:34am Start: 01-29-2016 End: 12-04-2023 take 1 tablet by mouth twice daily Ciprofloxacin Hcl 500 MG tablet Discontinued 500 mg PO TWICE A DAY 6 January 29, 2016 12:00am December 04, 2023 [...] water. dicyclomine hydrochloride 20 mg oral tablet (20 sources) Anticholinergic Start: 023 End: take 1 tablet by mouth three times daily as needed for pain Dicyclomine 20 mg tablet Discontinued 20 mg PO THREE TIMES A DAY as needed for abdominal pain 10 October 23, 2024 5:13pm December 02, 2024 1:24pm Start: 05-14-2023 dicyclomine (B ENTYL) 20 mg tablet Take 20 mg by mouth. 05/14/2023 Active 24 hr dilTIAZem hydrochloride 180 mg extended [...] Catracho Gomez MD Start : 25-Nov-2020 Active esomeprazole 40 mg delayed release oral capsule (15 sources) Proton Pump Inhibitor Start: 07-30-2024 End: 09-24-2024 take 1 capsule by mouth once daily Esomeprazole Magnesium 40 mg capsule,delayed release(DR/EC) Discontinued 40 mg PO DAILY July 30, 2024 1:00am September 24, 2024 10:44pm gabapentin 300 mg oral capsule (14 sources) Anti-epileptic Agent Start: 10-17-2021 End: 08-06-2023 take 300-600 mg by mouth at bedtime Gabapentin 300 MG Oral Capsule 300 to 600 mg at bedtime Quantity: 60 Refills: 5 Ordered: 17-Oct-2021 Freddie HSIEH, Joshua Start : 17-Oct-2021 Active gentamicin (Garamycin) 270 mg in dextrose 5 % in water (D5W) 100 mL IV (1 source) Start: 05-28-2023 End: 05-28-2023 gentamicin (Garamycin) 270 mg in dextrose 5 % in water (D5W) 100 mL IV 1 ml hydrALAZINE hydrochloride 20 mg/ml injection (2 sources) Arteriolar Vasodilator Start: 05-28-2023 End: 05-28-2023 hydrALAZINE (Apresoline) injection 2.6 mg Start: 05-28-2023 End: 05-28-2023 hydrALAZINE (Apresoline) inj ection 2.6 mg hydrOXYzine hydrochloride 25 mg oral tablet (10 sources) Antihistamine Start: 08-23-2022 End: 08-06-2023 hydrOXYzine HCL (Atarax) 25 mg tablet Take 1 tablet (25 mg) by mouth as needed at bedtime. for 90 day(s) 0 08/23/2022 08/06/2023 Discontinued (Med List Cleanup) ipratropium bromide 0.042 mg/actuat metered dose nasal spray (8 sources) Anticholinergic Start: 11-26-2024 End: 12-04-2024 Ipratropium Temple 42 mcg (0.06 %) spray,non-aerosol Discontinued 2 NMA INTRANASAL THREE TIMES A DAY as needed November 26, 2024 12:00am December 04, 2024 6:18am lansoprazole 30 mg delayed release oral capsule (15 sources) Proton Pump Inhibitor Start: 03-06-2024 End: [...] mg tablet Discontinued 10 mg PO DAILY 30 0 August 11, 2024 1:00am September 24, 2024 [...] List Cleanup) take 1 tablet by arnol every twenty-four hours Ativan 1 MG 1 tablet as needed Orally once a day for 30 days Active losartan potassium 50 mg oral tablet (8 sources) Angiotensin 2 Receptor Robby Start: 11-03-2020 take 1 tablet by mouth once daily Losartan Potassium 50 MG Oral Tablet TAKE ONE TABLET BY MOUTH DAILY Quantity: 90 Refills: 0 Ordered: 03-Nov-2020 DO Start : 03-Nov-2020 Active methocarbamol 500 mg oral tablet (9 sources) Muscle Relaxant Start: 11-04-2024 End: 12-02-2024 take 1 tablet by mouth three times daily as needed for pain Methocarbamol 500 mg tablet Discontinued 500 mg PO THREE TIMES A DAY as needed for pain/spasms 60 0 November 04, 2024 12:00am December 02, 2024 1:25pm Nebulizer and Compressor For Neb (18 sources) [...] / nitrofurantoin, monohydrate 75 mg oral capsule (15 sources) Nitrofuran Antibacterial Start: End: take 1 capsule by mouth twice daily at mealtime Nitrofurantoin Monohyd/M-Cryst (Macrobid) 100 mg capsule Discontinued 100 mg PO TWICE A DAY 6 0 June 19, 2024 1:00am June 27, 2024 10:13pm must administer with a meal/food ondansetron 4 mg disintegrating oral tablet (20 sources) Serotonin-3 Receptor Antagonist Start: End: take 1 tablet by mouth three times daily as needed for nausea and vomiting Ondansetron 8 mg tablet,disintegrating Discontinued 8 mg PO 3 TIMES DAILY NEEDED as needed for nausea and vomiting July 30, 2024 1:00am September 25, 2024 12:43am Start: 05-28-2023 End: 05-28-2023 ondansetron (Zofran) injecti on 4 mg Start: 09-19-2019 take 1 tablet by arnol every eight hours for nausea ondansetron (Zofran) 4 mg tablet Indications: Adnexal mass Take 1 tablet (4 mg) by mouth every 8 hours if needed for nausea or vomiting. 10 tablet 0 05/28/2023 Active Start: 09-08-2015 End: 12-02-2024 ondansetron orally disintegr ating (ZOFRAN ODT) 4 mg disintegrating tablet EVERY 8 HOURS NEEDED as needed for Nausea 09/08/2015 Active Comment on above: Take 1 tablet by arnol th every 8 hours as needed. oxyCODONE hydrochloride 5 mg oral tablet (20 sources) Opioid Agonist Start: End: take 1 tablet by mouth every six hours as needed for pain Oxycodone 5 mg tablet Discontinued 5 mg PO EVERY 6 HOURS as needed for pain 12 3 0 June 28, 2024 September 24, 2024 10:45pm Pyelonephritis Tubulo-interstitial nephritis, not specified as acute or chronic Start: 05-28-2023 End: 05-29-2023 take 1 tablet [...] Start: 03-14-2023 take 1 capsule by mo [facility] every eight hours oxyCODONE 5 mg oral capsule ; 1 cap orally every 8 hours as needed for painDx:N20.0 Quantity: 15 Refills: 0 Ordered: 14-Mar-2023 Ronan Delgado Start: 14-Mar-2023 Generic Substitution Allowed Comments: [...] needed for Moderate Pain (pain scale 4-5) 14 0 March 14, 2014 12:00am March 14, 2014 [...] problems. phenazopyridine hydrochloride 200 mg oral tablet (20 sources) Start: End: take 1 tablet by mouth three times daily as needed for muscle spasms Phenazopyridine (Pyridium) 200 mg tablet Discontinued 200 mg PO 3 TIMES DAILY NEEDED as needed for Bladder Spasms 30 7 0 June 19, 2024 1:00am June 27, 2024 10:14pm 1000 ml sodium chloride 9 mg/ml injection (1 source) Start: End: sodium chloride 0.9 % bolus 1,000 mL sucralfate 1000 mg oral tablet (20 sources) Aluminum Complex Start: End: take 1 tablet by mouth three times daily Sucralfate (Carafate) 1 gram tablet Discontinued 1 g PO THREE TIMES A DAY 90 28 0 May 16, 2024 1:58pm June 12, 2024 1:00am June 07, 2024 5:01pm chest discomfort Start: 05-14-2023 sucralfate (Ca rafate) suspension 1 [...] Comment on above: Take 1 capsule by [facility] once daily. 30 minutes after the same meal each day. traMADol hydrochloride 50 mg oral tablet (20 sources) Opioid Agonist Start: 07-30-2024 End: 12-02-2024 take 1 tablet by mouth every six hours as needed for pain Tramadol 50 mg tablet Discontinued 50 mg PO EVERY 6 HOURS NEEDED as needed for Pain 12 3 0 July 30, 2024 10:03pm December 02, 2024 1:25pm Start: 01-03-2024 End: 01-22-2024 take 1 tablet by mouth every six hours as needed for pain Tramadol 50 mg tablet Discontinued 50 mg PO EVERY 6 HOURS as needed for pain 12 3 0 January 03, 2024 12:00am January 22, 2024 8:22pm traZODone hydrochloride 50 mg oral tablet (12 [...] coli [facility]] Onset: 03-14-2023 Episodic Cardiac dysrhythmias (20 sources) Cardiac arrhythmia; Translations: [Cardiac dysrhythmia, unspecified] Onset: 04-02-2023 04-02-2023 Chronic Cardiac dysrhythmias (20 sources) Palpitations; Translations: [Palpitations] Onset: 03-17-2015 03-17-2015 Episodic Chronic obstructive pulmonary disease and bronchiectasis (1 source) Chronic obstructive pulmonary disease, unspecified; Translations: [Chronic obstructive pulmonary disease, unspecified] Onset: 03-14-2023 Chronic Chronic obstructive pulmonary disease and bronchiectasis (11 sources) Bronchitis; Translations: [Bronchitis, not specified as acute or chronic] Onset: 02-28-2022 Resolved: 02-28-2022 Episodic Congestive heart failure; nonhypertensive (12 sources) Heart failure; Translations: [Heart Failure] Onset: 04-02-2023 06-20-2015 Chronic Coronary atherosclerosis and other heart disease (12 sources) Acute coronary syndrome; Translations: [Acute Coronary Syndrome] Onset: 04-02-2023 07-04-2015 Chronic Disorders of teeth and jaw (16 sources) Toothache; Translations: [Toothache] 12-29-2016 Episodic E [...] CONTROLLED ON MED Fluid and electrolyte disorders (10 sources) Hypokalemia; Translations: [Acute hypokalemia] Onset: 03-14-2023 [...] and vomiting; Translations: [Nausea & Vomiting] Onset: 10-28-2024 11-25-2016 Episodic Open wounds of extremities (9 [...] malignant neoplasm] Onset: 06-07-2023 Episodic Other aftercare (20 sources) Long-term current use of anticoagulant; Translations: [predatory animal exterminator (current) use of anticoagulants] 08-19-2024 Episodic Other circulatory disease (5 sources) H/O: hypertension; Translations: [Personal history of other diseases of circulatory system] Onset: 08-15-2023 08-15-2023 Episodic Other circulatory disease (1 source) Postural orthostatic tachycardia syndrome ; Translations: [Postural Orthostatic Tachycardia Syndrome] 02-26-2017 Episodic Other circulatory disease (13 sources) Elevated blood pressure; Translations: [Elevated blood-pressure reading, without diagnosis of hypertension] 09-25-2024 Episodic Other connective tissue disease (1 source) Fibromyalgia; Translations: [Fibromyalgia] Onset: 03-14-2023 Episodic Other connective tissue disease (2 sources) Myalgia, other site; Translations: [Myalgia, other site] Onset: 04-03-2023 Episodic Other diseases of bladder and urethra (2 sources) Overactive bladder; Translations: [Overactive bladder] Onset: 07-09-2023 Chronic Other diseases of veins and lymphatics (1 source) Venous insufficiency (chronic) (peripheral); Translations: [Venous insufficiency (chronic) (peripheral)] Onset: 01-19-2025 Episodic Other eye disorders (15 sources) Subconjunctival hemorrhage; Translations: [Conjunctival hemorrhage, unspecified [...] cycle] Onset: 05-14-2023 Episodic Other gastrointestinal disorders (20 sources) Irritable bowel syndrome; Translations: [Irritable bowel syndrome without diarrhea] 11-13-2024 Chronic Other gastrointestinal disorders (1 source) Irritable bowel syndrome without diarrhea; Translations: [Irritable bowel syndrome, unspecified] Onset: 01-21-2025 Chronic Other gastrointestinal disorders (3 sources) Esophageal dysphagia; Translations: [Other dysphagia] 04-05-2023 Episodic Other gastrointestinal disorders (9 sources) Finding of abdomen; Translations: [Other specified symptoms and signs involving the digestive system and abdomen] 11-13-2024 Episodic Other gastrointestinal disorders (1 source) Other specified symptoms and signs involving the digestive system and abdomen; Translations: [Other specified symptoms and signs involving the digestive system and abdomen] Onset: 12-22-2024 Episodic Other gastrointestinal disorders (1 source) Diarrhea, unspecified; Translations: [Diarrhea, unspecified] Onset: 12-22-2024 Episodic Other injuries and conditions due to [...] injuries and conditions due to external causes (11 sources) Hematoma; Translations: [Other injury of unspecified body region, initial encounter] 10-01-2024 Episodic Other injuries and conditions due to external causes (1 source) Unspecified injury of left ankle, initial encounter; Translations: [Unspecified injury of left ankle, initial encounter] Onset: 12-18-2024 Episodic Other injuries and conditions due to external causes (1 source) Unspecified injury of unspecified lower leg, initial encounter; Translations: [Unspecified injury of unspecified lower leg, initial encounter] Onset: 12-10-2024 Episodic Other lower respiratory disease (1 source) [...] ulnar nerve] Chronic Other nervous system disorders (15 sources) Postoperative pain ; Translations: [Other acute postprocedural pain] 05-17-2024 Episodic Other nutritional; endocrine; and metabolic disorders (15 sources) Hypomagnesemia; Translations: [Hypomagnesemia] 01-29-2016 Chronic Other nutritional; endocrine; and metabolic disorders (13 sources) Body mass index 30+ - obesity 09-25-2024 Chronic Other skin disorders (15 sources) Facial swelling ; Translations: [Localized swelling, mass and lump, head] 08-19-2024 Episodic Other skin disorders (15 sources) Decorative tattoo; Translations: [Other specified disorders of pigmentation] 01-29-2016 Episodic Other upper respiratory disease (14 sources) Chronic rhinitis; Translations: [Chronic rhinitis] Onset: 04-02-2023 04-02-2023 Chronic Other upper respiratory disease (1 source) Nasal congestion; Translations: [Nasal Congestion] 05-04-2015 Episodic Other upper respiratory infections (4 sources) Chronic sinusitis; Translations: [Chronic sinusitis, unspecified] Onset: 01-06-2025 01-06-2025 Chronic Other upper respiratory infections (2 sources) Acute upper respiratory infection; Translations: [Acute upper respiratory infection, unspecified] 10-09-2023 Episodic Otitis media and related conditions (15 sources) Dysfunction of eustachian tube; Translations: [Dysfunction of Eustachian tube] Onset: 04-02-2023 04-02-2023 Episodic Peripheral and visceral atherosclerosis (1 source) Peripheral vascular disease, unspecified; Translations: [Peripheral vascular disease, unspecified] Onset: 09-30-2024 Chronic Residual codes; unclassified (1 source) Treatment not [...] [Nicotine dependence, unspecified, uncomplicated] Onset: 03-14-2023 Chronic Superficial injury; contusion (1 source) Unspecified superficial injury of unspecified upper arm, initial encounter; Translations: [Unspecified superficial injury of unspecified upper arm, initial encounter] Onset: 12-06-2024 Episodic Unclassified (1 source) NO SHOW Unclassified (2 sources) Primary hypertension 03-09-2023 Unclassified (2 sources) Right nephrolithiasis 03-08-2023 Unclassified (1 source) Bilateral renal stones 03-08-2023 Unclassified (1 source) Adnexal mass 03-10-2023 Unclassified (20 sources) M54.16 - Radiculopathy, lumbar region Unclassified (1 source) Low back pain, unspecified; Translations: [Low back pain, unspecified] Onset: 11-04-2024 Urinary tract infections (20 sources) Acute urinary tract infection; Translations: [Type 2 fracture of sacrum] Onset: 03-14-2023 07-04-2015 Episodic Comment on above: PYELONEPHRITIS Viral infection (15 sources) Acute viral disease; Translations: [Viral infection, unspecified] 08-19-2024 Episodic Past or Other Problems Problem Classification Problem Date Documented Da te Episodic/Chronic Calculus of urinary tract (20 sources) Kidney stone; Translations: [Calculus of kidney] Onset: 07-24-2019 08-06-2019 Episodic Genitourinary symptoms and ill-defined conditions (2 sources) Frequency of micturition; Translations: [Hematuria, unspecified] Onset: 03-14-2023 Episodic Inflammatory diseases of female pelvic organs [...] 05-04-2015 Episodic Other aftercare (2 sources) Other snf (current) drug therapy; Translations: [Other snf (current) drug therapy] Onset: 08-02-2021 Episodic Other connective tissue disease (20 sources) Myofascial pain; Translations: [Myalgia, other site] Onset: 06-14-2011 06-14-2011 Episodic Other connective tissue disease (16 sources) Fibromyalgia; Translations: [Myalgia and myositis, unspecified] Onset: 04-02-2023 04-02-2023 Episodic Other diseases of kidney and ureters (20 sources) Hydronephrosis with renal and ureteral calculous [...] dysphagia] Onset: 04-03-2023 Episodic Other gastrointestinal disorders (20 sources) Diarrhea; Translations: [Diarrhea, unspecified] Onset: 08-18-2023 08-18-2023 Episodic Other gastrointestinal disorders (1 source) Abdominal distension (gaseous); Translations: [Abdominal distension (gaseous)] Onset: 07-17-2024 Episodic Other injuries and conditions due to external causes (2 sources) Unspecified injury of left forearm, initial encounter; Translations: [Unspecified injury of left forearm, initial encounter] Onset: 04-10-2022 Episodic Other injuries and conditions due to external causes (10 sources) Foreign body in lung; Translations: [Unspecified foreign body in other parts of respiratory tract causing other injury, initial encounter] Onset: 08-15-2023 08-15-2023 Episodic Other injuries and conditions due to external causes (1 source) Unspecified injury of left lower leg, initial encounter; Translations: [Unspecified injury of left lower leg, initial encounter] Onset: 10-07-2024 Episodic Other lower respiratory disease (20 sources) Dyspnea on exertion; Translations: [Other respiratory abnormalities] Onset: 04-02-2023 04-02-2023 Episodic Other lower respiratory disease (20 sources) Cough; Translations: [Cough] Onset: 06-19-2019 06-19-2019 Episodic Other lower respiratory disease (20 sources) [...] for other disorder] Onset: 03-20-2023 Episodic Other skin disorders (1 source) Localized swelling, mass and lump, unspecified lower limb; Translations: [Localized swelling, mass and lump, unspecified lower limb] Onset: 10-23-2024 Episodic Ovarian cyst (18 sources) Unspecified ovarian cyst, right side; Translations: [Cyst of ovary] Onset: 03-14-2023 05-07-2024 Episodic Pleurisy; pneumothorax; pulmonary collapse (20 sources) Pleural effusion, not elsewhere classified; Translations: [Bilateral pleural effusion] Onset: 03-17-2015 Resolved: 07-24-2019 07-24-2019 Episodic Pneumonia (except that caused by tuberculosis or sexually transmitted disease) (20 sources) Pneumonia; Translations: [Pneumonia, unspecified organism] Onset: 03-17-2015 Resolved: 07-24-2019 07-24-2019 Episodic Pulmonary heart disease (20 sources) H/O: pulmonary embolus; Translations: [Personal history of pulmonary embolism] Onset: 06-01-2023 06-06-2023 Episodic Comment on above: 06/07/2024 Residual codes; unclassified (12 sources) Generalized aches and pains; Translations: [Generalized Aches & Pains] Onset: 04-02-2023 04-16-2015 Episodic Residual codes; unclassified (10 sources) Postoperative state; Translations: [Other specified postprocedural states] Onset: 06-07-2023 06-07-2023 Episodic Residual codes; unclassified (1 source) Edema, unspecified; Translations: [Edema, unspecified] Onset: 08-25-2024 Episodic Respiratory failure; insufficiency; arrest (adult) (15 sources) Acute respiratory failure; Translations: [Acute respiratory [...] (12 sources) Onset: 03-20-2023 Resolved: 08-06-2023 03-20-2023 Unclassified (6 sources) Contusion of left lower leg, initial encounter 12-04-2024 Results Test Name Value Interpretation Reference Range Facility OV 01-27-2025 [facility] Office Visit ([facility]) RIOSDAMARI ([id number]) 1975 F Date Time Provider Department 01/27/25 10:45 AM MJ HADDAD WOMARCELLUS During your visit today, we recorded the following information about you: Temperature Pulse Respiration Blood pressure 97.4 degrees 85/minute 19/minute 120/80 Weight 87 kg Mj Haddad PA 01/27/2025 10:53 AM Signed [facility] Subjective Damari Oneil Sterling is a 49 year old female. Patient presents with: Cough: Congestion, right ear pain x 2 weeks HPI Congestion and Right Ear Pain: - Persistent congestion and right ear pain x2 weeks. - Previously treated with doxycycline and prednisone for one week on 01/06 with no improvement. - Denies fevers. - Unable to take many OTC medications due to asthma. - Using albuterol and breathing treatments with minimal relief. - Denies wheezing. Review of Systems Constitutional: (-) fever Ears/Nose/Mouth/Throat : (+) nasal congestion, (+) right ear pain, (+) facial pressure Objective BP 120/80 Pulse 85 Temp 36.3 ?C (97.4 ?F) Resp 19 Wt 87 kg (191 lb 12.8 oz) LMP 07/24/2016 (Approximate) SpO2 98% BMI 32.92 kg/m? Physical Exam Vitals and nursing note reviewed. Constitutional: General: She is not in acute distress. Appearance: Normal appearance. She is not toxic-appearing. HENT: Right Ear: Ear canal normal. A middle ear effusion is present. Left Ear: Ear canal normal. A middle ear effusion is present. Nose: Congestion present. Right Sinus: Maxillary sinus tenderness present. Left Sinus: Maxillary sinus tenderness present. Mouth/Throat: Mouth: Mucous membranes are moist. Pharynx: No oropharyngeal exudate or posterior oropharyngeal erythema. Eyes: Conjunctiva/sclera: Conjunctivae normal. Cardiovascular: Rate and Rhythm: Normal rate and regular rhythm. Pulmonary: Effort: Pulmonary effort is normal. Breath sounds: Normal breath sounds. Neurological: Mental Status: She is alert. General: No acute distress. HEENT: Mild sinus tenderness; fluid behind tympanic membranes, no signs of infection. Resp: Lungs clear to auscultation, no wheezing. { 1. Maxillary sinusitis, unspecified chronicity (J32.0) - Persistent congestion and right ear pain since last visit a couple of weeks ago; no improvement with prior doxycycline and prednisone. - No fevers reported; unable to take most OTC medications due to asthma. - Exam: mild sinus tenderness, fluid in ears without signs of infection; lungs clear. - Start azithromycin (Z-Artur). - Start Tessalon Perles for cough. - Start Flonase nasal spray; prescription sent. - Continue current inhalers. - Advised to follow up with primary care provider if symptoms do not improve. and Recording using Peer60 software for draft documentation of the visit was discussed with the patient/authorized in home sales representative; all questions welcomed and answered. Patient/authorized in home sales representative agreed to proceed Diagnosis and treatment plan were discussed and questions were answered to the patient's satisfaction. Pt acknowledged understanding of concepts and follow up plan. Specific signs and symptoms that would indicate the need for higher level of care were discussed in detail warranting prompt ER evaluation. History and Record Review External record(s) reviewed: prior outpatient record. Disposition The patient was discharged. Procedures Allergies As of Date: 01/27/2025 Noted Allergy Reaction BEE VENOM PROTEIN (HONEY BEE) 08/06/2023 10 - Anaphylaxis PENICILLINS 03/13/2005 10 - Anaphylaxis BACTRIM (SULFAMETHOXAZOLE-TRIM ETH*03/13/2005 ULTRAM (TRAMADOL HCL) 03/13/2005 5 - Intolerance NAPROSYN (NAPROXEN) 03/05/2024 8 - GI Upset Comments: nausea Date Reviewed: 01/27/2025 Reviewed by: Arti Rios MA - Fully Assessed Reason for Visit: Cough [28] Cmt: Congestion, right ear pain x 2 weeks Primary Visit Diagnosis:Maxillary sinusitis, unspecified chronicity [J32.0] Order(s):azithromycin (ZITHROMAX) 250 mg tabletTake 2 tablets by mouth once daily for 1 day, THEN 1 tablet once daily for 4 days.Disp: 6 tabletRfl: 0 benzonatate (TESSALON PERLE) 100 mg capsuleTake 1 capsule by mouth three times a day as needed for cough for up to 7 days.Disp: 21 capsuleRfl: 0 fluticasone (FLONASE ALLERGY RELIEF) 50 mcg/actuation nasal sprayUse 2 sprays in each nostril once daily.Disp: 11.1 mLRfl: 0 Prescriptions as of 01/27/2025 - azithromycin (ZITHROMAX) 250 mg tablet Take 2 tablets by mouth once daily for 1 day, THEN 1 tablet once daily for 4 days. - benzonatate (TESSALON PERLE) 100 mg capsule Take 1 capsule by mouth three times a day as needed for cough for up to 7 days. - fluticasone (FLONASE ALLERGY RELIEF) 50 mcg/actuation nasal spray Use 2 sprays in each nostril once daily. - albuterol HFA (PROVENTIL HFA, VENTOLIN HFA) 90 mcg/actuation inhaler (more content not included)... Normal [facility] Gastroenterology Visit Repor ton 01-20-2025 Gastroenterology Visit Report Normal [facility] Venous duplex ultrasound rep ortOrdered By: Sumanth Patino on 01-15-2025 US Vein [facility] [address] [place] [address] Venous Duplex US - Zander Extrem 01/14/25 1259 MR#: [id number] Acct: [id number] Name: DAMARI RIOS Rep #:[id number] : 1975 49 From: Sumanth Hernandez Attending Dr: Ellis Donnelly, JENNIFER Status: REG CLI Ordering Dr: Ellis Donnelly DPM Date : 01/14/25 Location: [facility] Sex: F C Admitted: Reason For Study Reason For Study: BLE Edema RIGHT LEFT CFV is compressible, spontaneous, phasic, competent CFV is compressible, spontaneous, phasic, competent, and demonstrates normal augmentation. and demonstrates normal augmentation. FV is compressible, spontaneous, phasic, competent FV is compressible, spontaneous, phasic, competent and demonstrates normal augmentation. and demonstrates normal augmentation. POP V is compressible, spontaneous, phasic, competent POP V is compressible, spontaneous, phasic, competent and demonstrates normal augmentation. and demonstrates normal augmentation. T/P Trunk is compressible. T/P Trunk is compressible. PTV is compressible. PTV is compressible. RT PerV is compressible. LT PerV is compressible. SFJ is competent and measures 0.73 cm. SFJ is competent and measures 0.62 cm. GSV proximal thigh measures 0.40 x 0.40 cm. GSV proximal thigh measures 0.39 x 0.42 cm. GSV at knee measures 0.43 x 0.44 cm. GSV at knee measures 0.47 x 0.51 cm. GSV is competent throughout. GSV above kneeis competent. SSV mid calf is competent and measures 0.22 x 0.26 GSV below kneeis INCOMPETENT for greater than 0.5 cm. seconds. Procedure SSV mid calf is competent and measures 0.34 x 0.35 Exam performed in department. cm. This is a venous duplex using B-mode, color flow and spectral Doppler. The exam was diagnostic. Patient was scanned in reverse Trendelenburg position during reflux assessment. VL/Venous Duplex US - Zander Extrem Interpretation Summary Deep veins of the bilateral lower extremities are patent and compressible segmentally. There is no evidence of bilateral lower extremity deep vein thrombosis. The bilateral great saphenous veins appearpatent and compressible segmentally. Positive for reflux in the left great saphenous vein below the knee. Ordering Physician: Ellis Donnelly Referring Physician: Dwayne Stephens Performed By: Deniz Patrick, T 01/15/251825 Date _ Sumanth Patino MD CC: JENNIFER Donnelly; Dr. Dwayne Stephens MD ~ Date Dictated: 01/14/25 1259 Date Transcribed: 01/15/251825 Power Bender Operator: Signed [facility] Work Phone: Venous Duplex US - Zander Extre mon 01-14-2025 Venous Duplex US - Zander Extrem Normal [facility] Absolute lymphocyte countOrd ered By: Uma Harper on 01-13-2025 Lymphocytes Auto (Unsp spec) [#/Vol] 2.20 10*3/uL 0.83-4.51 [facility] Absolute neutrophil countOrd ered By: Uma Harper on 01-13-2025 Neutrophils (Bld) [#/Vol] 4.0 10*3/uL 2.0-7.7 [facility] Anion gap in Serum or Plasma Ordered By: Uma Harper on 01-13-2025 Anion gap [Moles/Vol] 12 mmol/L 5- [facility] Automated lymphocyte count a s percentage of total leukocytesOrdered By: Uma Harper on 01-13-2025 Lymphocytes/100 WBC Auto (Unsp spec) 32.4 % 19-41 [facility] BUN/creatinine ratioOrdered By: Uma Harper on 01-13-2025 Urea nitrogen/Creatinine [Mass ratio] 11.5 mg/mg 10-20 [facility] Basophil percentageOrdered B y: Uma Harper on 01-13-2025 Basophils/100 WBC (Bld) 0.3 % 0-1 [facility] Bilirubin, totalOrdered By: Uma Harper on 01-13-2025 Bilirubin [Mass/Vol] 0.34 mg/dL 0.00-1.30 [facility] CBC W/Diff, Automatedon 12-30 Absolute Lymph 2.20 X10 3/uL Normal 0.83-4.51 [facility] Comment on above: Performed By: #### L 500.4050, L100.0100 ####[facility] [address] [place], [address] Absolute Neut 4.0 X10 3/uL Normal 2.0-7.7 [facility] Comment on above: Performed By: #### L 500.4050, L100.0100 ####[facility] [address] [place], [address] Basophils/100 WBC (Bld) 0.3 % Normal 0-1 [facility] Comment on above: Performed By: #### L 500.4050, L100.0100 ####[facility] [address] [place], [address] Eosinophils/100 WBC (Bld) 2.4 % Normal 0-5 [facility] Comment on above: Performed By: #### L 500.4050, L100.0100 ####[facility] [address] [place], [address] Erythrocyte distribution width (RBC) [Ratio] 13.2 % Normal 11.6-14.6 [facility] Comment on above: Performed By: #### L 500.4050, L100.0100 ####[facility] [address] [place], [address] Hematocrit (Bld) [Volume fraction] 38.9 % Normal 37-47 [facility] Comment on above: Performed By: #### L 500.4050, L100.0100 ####[facility] [address] [place], [address] Hemoglobin (Bld) [Mass/Vol] 13.1 g/dL Normal 12.0-15.0 [facility] Comment on above: Performed By: #### L 500.4050, L100.0100 ####[facility] [address] [place], [address] IG% 0.300 Normal 0.0-0.9 [facility] Comment on above: Result Comment: IG% - Immature Granulocytes (promyelocytes, myelocytes andmetamyelocytes) > 1% indicates that a LEFT SHIFT is Present. Performed By: #### L 500.4050, L100.0100 ####[facility] [address] [place], [address] Lymphocytes/100 WBC (Bld) 32.4 % Normal 19-41 [facility] Comment on above: Performed By: #### L 500.4050, L100.0100 ####[facility] [address] [place], [address] MCH (RBC) [Entitic mass] 30.5 pg Normal 27.0-32.0 [facility] Comment on above: Performed By: #### L 500.4050, L100.0100 ####[facility] [address] [place], [address] MCHC (RBC) [Mass/Vol] 33.7 g/dL Normal 32-36 [facility] Comment on above: Performed By: #### L 500.4050, L100.0100 ####[facility] [address] [place], [address] MCV (RBC) [Entitic vol] 90.5 fL Normal 81-99 [facility] Comment on above: Performed By: #### L 500.4050, L100.0100 ####[facility] [address] [place], [address] Monocytes/100 WBC (Bld) 5.6 % Normal 0-10 [facility] Comment on above: Performed By: #### L 500.4050, L100.0100 ####[facility] [address] [place], [address] Neutrophils/100 WBC (Bld) 59.0 % Normal 47-70 [facility] Comment on above: Performed By: #### L 500.4050, L100.0100 ####[facility] [address] [place], [address] Nucleated RBC (Bld) [#/Vol] 0 10*3/uL Normal 0-5 [facility] Comment on above: Performed By: #### L 500.4050, L100.0100 ####[facility] [address] [place], [address] Platelet mean volume (Bld) [Entitic vol] 8.6 fL Normal 6.2-12.0 [facility] Comment on above: Performed By: #### L 500.4050, L100.0100 ####[facility] [address] [place], [address] Platelets (Bld) [#/Vol] 325 10*3/uL Normal 150-450 [facility] Comment on above: Performed By: #### L 500.4050, L100.0100 ####[facility] [address] [place], [address] RBC (Bld) [#/Vol] 4.30 10*6/uL Normal 4.2-5.4 [facility] Comment on above: Performed By: #### L 500.4050, L100.0100 ####[facility] [address] [place], [address] RDW SD 43.7 fl Normal 35.1-43.9 [facility] Comment on above: Performed By: #### L 500.4050, L100.0100 ####[facility] [address] [place], [address] WBC (Bld) [#/Vol] 6.8 10*3/uL Normal 4.4-11.0 [facility] Comment on above: Performed By: #### L 500.4050, L100.0100 ####[facility] [address] [place], [address] Carbon dioxide, total [Moles /volume] in Central venous bloodOrdered By: Uma Harper on 01-13-2025 CO2 [Moles/Vol] 20.9 mmol/L Low 21.0-32.0 [facility] Chloride assayOrdered By: Rose Harper on 01-13-2025 Chloride [Moles/Vol] 105 mmol/L 98-108 [facility] Comprehensive Metabolic Prof ilon 01-13-2025 Albumin [Mass/Vol] 3.9 g/dL Normal 3.5-5.0 [facility] Comment on above: Performed By: #### L 500.4050, L100.0100 ####[facility] [address] [place], [address] Albumin/Globulin [Mass ratio] 1.2 {ratio} Normal 0.9-2.4 [facility] Comment on above: Performed By: #### L 500.4050, L100.0100 ####[facility] [address] [place], [address] ALK PHOS 96 U/L Normal 35-104 [facility] Comment on above: Performed By: #### L 500.4050, L100.0100 ####[facility] [address] [place], [address] ALT [Catalytic activity/Vol] 49 U/L High <=34 [facility] Comment on above: Performed By: #### L 500.4050, L100.0100 ####[facility] [address] [place], [address] AST [Catalytic activity/Vol] 49 U/L High <=31 [facility] Comment on above: Result Comment: Hemo lysis present, Results??could be affected.?? Performed By: #### L 500.4050, L100.0100 ####[facility] [address] [place], [address] Bilirubin [Mass/Vol] 0.34 mg/dL Normal 0.00-1.30 [facility] Comment on above: Performed By: #### L 500.4050, L100.0100 ####[facility] [address] [place], [address] BUN/CRE 11.5 RATIO Normal 10-20 [facility] Comment on above: Performed By: #### L 500.4050, L100.0100 ####[facility] [address] [place], [address] Calcium [Mass/Vol] 9.1 mg/dL Normal 7.6-11.0 [facility] Comment on above: Performed By: #### L 500.4050, L100.0100 ####[facility] [address] [place], [address] Chloride [Moles/Vol] 105 mmol/L Normal 98-108 [facility] Comment on above: Performed By: #### L 500.4050, L100.0100 ####[facility] [address] [place], [address] CO2 [Moles/Vol] 20.9 mmol/L Low 21.0-32.0 [facility] Comment on above: Performed By: #### L 500.4050, L100.0100 ####[facility] [address] [place], [address] Creatinine [Mass/Vol] 0.99 mg/dL Normal 0.70-1.20 [facility] Comment on above: Performed By: #### L 500.4050, L100.0100 ####[facility] [address] [place], [address] GAP 12 Normal 5-15 [facility] Comment on above: Performed By: #### L 500.4050, L100.0100 ####[facility] [address] [place], [address] GFR/1.73 sq M.predicted among non-blacks MDRD (S/P/Bld) [Vol rate/Area] 71 mL/min/{1.73_m2} Normal >60 [facility] Comment on above: Result Comment: mL/m in/1.73m2 CKD-EPI Creatinine Equation (2020) Performed By: #### L 500.4050, L100.0100 ####[facility] [address] [place], [address] Globulin (S) [Mass/Vol] 3.2 g/dL Normal 2.2-4.2 [facility] Comment on above: Performed By: #### L 500.4050, L100.0100 ####[facility] [address] [place], [address] Glucose [Mass/Vol] 132 mg/dL High 70-99 [facility] Comment on above: Performed By: #### L 500.4050, L100.0100 ####[facility] [address] [place], [address] Potassium [Moles/Vol] 4.2 mmol/L Normal 3.3-5.1 [facility] Comment on above: Result Comment: Hemo lysis present, Results??could be affected.?? Performed By: #### L 500.4050, L100.0100 ####[facility] [address] [place], [address] Sodium [Moles/Vol] 138 mmol/L Normal 133-145 [facility] Comment on above: Performed By: #### L 500.4050, L100.0100 ####[facility] [address] [place], [address] T PROT 7.1 g/dL Normal 5.9-8.4 [facility] Comment on above: Performed By: #### L 500.4050, L100.0100 ####[facility] [address] [place], [address] Urea nitrogen [Mass/Vol] 11 mg/dL Normal 4-19 [facility] Comment on above: Performed By: #### L 500.4050, L100.0100 ####[facility] [address] [place], [address] Eosinophil percentageOrdered By: Uma Harper on 01-13-2025 Eosinophils/100 WBC (Bld) 2.4 % 0-5 [facility] Erythrocyte distribution wid th ratioOrdered By: Uma Harper on 01-13-2025 Erythrocyte distribution width (RBC) [Ratio] 13.2 % 11.6-14.6 [facility] Erythrocyte distribution wid th standard deviationOrdered By: Uma Harper on 01-13-2025 Erythrocyte distribution width (RBC) [Ratio] 43.7 fl 35.1-43.9 [facility] Glomerular filtration rate ( GFR) estimation/1.73 sq m using serum, plasma, or whole bOrdered By: Uma Harper on 01-13-2025 GFR/1.73 sq M.predicted among non-blacks MDRD (S/P/Bld) [Vol rate/Area] 71 mL/min/{1.73_m2} >60 [facility] Comment on above: mL/min/1.73m2 CKD-EP I Creatinine Equation (2020) Hematocrit Auto (Bld) [Volum e fraction]Ordered By: Uma Harper on 01-13-2025 Hematocrit (Bld) [Volume fraction] 38.9 % 37-47 [facility] Hemoglobin measurementOrdere d By: Uma Harper on 01-13-2025 Hemoglobin (Bld) [Mass/Vol] 13.1 g/dL 12.0-15.0 [facility] Immature granulocytes/100 WB C Auto (Bld)Ordered By: Uma Harper on 01-13-2025 Immature granulocytes/100 WBC (Bld) 0.300 % 0.0-0.9 [facility] Comment on above: IG% - Immature Granu locytes (promyelocytes, myelocytes and metamyelocytes) > 1% indicates that a LEFT SHIFT is Present. Laboratory - Chemistry and C hemistry - challengeOrdered By: Uma Harper on 01-13-2025 AST [Catalytic activity/Vol] 49 U/L High <32 [facility] Comment on above: Hemolysis present, R esults could be affected. MCV (mean corpuscular volume ) determinationOrdered By: Uma Harper on 01-13-2025 MCV (RBC) [Entitic vol] 90.5 fL 81-99 [facility] Mean corpuscular hemoglobin (MCH) determinationOrdered By: Uma Harper on 01-13-2025 MCH (RBC) [Entitic mass] 30.5 pg 27.0-32.0 [facility] Mean corpuscular hemoglobin concentration (MCHC) determinationOrdered By: Uma Harper on 01-13-2025 MCHC (RBC) [Mass/Vol] 33.7 g/dL 32-36 [facility] Mean platelet volume determi nationOrdered By: Uma Harper on 01-13-2025 Platelet mean volume (Bld) [Entitic vol] 8.6 fL 6.2-12.0 [facility] Monocyte percentageOrdered B y: Uma Harper on 01-13-2025 Monocytes/100 WBC (Bld) 5.6 % 0-10 [facility] Neutrophil percentageOrdered By: Uma Harper on 01-13-2025 Neutrophils/100 WBC (Bld) 59.0 % 47-70 [facility] Nucleated red blood cell per centageOrdered By: Uma Harper on 01-13-2025 Nucleated RBC/100 WBC (Bld) [Ratio] 0 % 0-5 [facility] Platelet countOrdered By: Rose Harper on 01-13-2025 Platelets (Bld) [#/Vol] 325 10*3/uL 150-450 [facility] Potassium measurement (mass/ volume)Ordered By: Uma Harper on 01-13-2025 Potassium (Unsp spec) [Mass/Vol] 4.2 mmol/L 3.3-5.1 [facility] Comment on above: Hemolysis present, R esults could be affected. RBC Auto (Bld) [#/Vol]Ordere d By: Uma Harper on 01-13-2025 RBC (Bld) [#/Vol] 4.30 10*6/uL 4.2-5.4 [facility] Serum creatinine measurement (mass/volume)Ordered By: Uma Harper on 01-13-2025 Creatinine [Mass/Vol] 0.99 mg/dL 0.70-1.20 [facility] Serum globulin measurementOr dered By: Uma Harper on 01-13-2025 Globulin (S) [Mass/Vol] 3.2 g/dL 2.2-4.2 [facility] Serum glucose measurement (m ass/volume)Ordered By: Uma Harper on 01-13-2025 Glucose [Mass/Vol] 132 mg/dL High 70-99 [facility] Serum or plasma alanine irwin otransferase (ALT) measurementOrdered By: Uma Harper on 01-13-2025 ALT [Catalytic activity/Vol] 49 U/L High <35 [facility] Serum or plasma albumin marianna urement (mass/volume)Ordered By: Uma Harper on 01-13-2025 Albumin [Mass/Vol] 3.9 g/dL 3.5-5.0 [facility] Serum or plasma albumin/glob ulin mass ratioOrdered By: Uma Harper on 01-13-2025 Albumin/Globulin [Mass ratio] 1.2 {ratio} 0.9-2.4 [facility] Serum or plasma alkaline caity sphatase measurementOrdered By: Uma Harper on 01-13-2025 ALP [Catalytic activity/Vol] 96 U/L 35-104 [facility] Serum or plasma calcium marianna urement (mass/volume)Ordered By: Uma Harper on 01-13-2025 Calcium [Mass/Vol] 9.1 mg/dL 7.6-11.0 [facility] Serum or plasma urea nitroge n measurement (mass/volume)Ordered By: Uma Harper on 01-13-2025 Urea nitrogen [Mass/Vol] 11 mg/dL 4-19 [facility] Sodium levelOrdered By: Chuck Harper on 01-13-2025 Sodium [Moles/Vol] 138 mmol/L 133-145 [facility] Total proteinOrdered By: Kiki Harper on 01-13-2025 Protein [Mass/Vol] 7.1 g/dL 5.9-8.4 [facility] White blood cell (WBC) count Ordered By: Uma Harper on 01-13-2025 WBC (Bld) [#/Vol] 6.8 10*3/uL 4.4-11.0 [facility] CNOVon 01-06-2025 CNOV Office Visit ([facility]) DAMARI RIOS ([id number]) 1975 F Date Time Provider Department 01/06/25 1:45 PM DEEJAY FRANCES During your visit today, we recorded the following information about you: Temperature Pulse Respiration Blood pressure 98.4 degrees 80/minute 16/minute 122/70 Weight 87.8 kg Deejay Frances APRN.CNP 01/06/2025 2:04 PM Signed [facility] Subjective HPI HPI Damari Oneil Sterling is a 49 year old female who presents today for CC of cough, sinus pressure, ear pain. This started 1 week ago. Has tried otc medication for relief. Symptoms are worsened by nothing. Risk factors hx of asthma, has been hospitalized in past for asthma. Nonsmoker. .Patient presents with: Nasal Congestion: drainage, right ear pain x 1 week PAST MEDICAL HISTORY Diagnosis Date Abdominal pain [...] Ultram [Tramadol Hcl], and Naprosyn [Naproxen] MEDICATIONS predniSONE (DELTASONE) 20 mg tablet Take 2 tablets by mouth once daily for 5 days. Take daily with food. doxycycline monohydrate 100 mg tablet Take 1 tablet by mouth two times a day for 7 days. albuterol HFA (PROVENTIL HFA, VENTOLIN HFA) 90 mcg/actuation inhaler Inhale 2 puffs as instructed every 4 hours as needed for wheezing/shortness of breath. albuterol (PROVENTIL) 2.5 mg /3 mL (0.083 %) nebulizer solution Use 3 mL via nebulizer every 4 hours as needed for wheezing/shortness of breath. cyclobenzaprine (FLEXERIL) 5 mg tablet Take 5 [...] (DELTASONE) 10 mg tablet Take by mouth. (Patient not taking: Reported on 01/06/2025) rOPINIRole (REQUIP) 0.25 mg tablet AT BEDTIME [...] rare- maybe 2x/ year Drug use: No Review of Systems Constitutional: Negativ (more content not included)... Normal [facility] Gastroenterology Visit Repor ton 12-16-2024 Gastroenterology Visit Report Normal [facility] Ankle min 3 Viewson 12-16-19 25 Ankle min 3 Views Normal [facility] Foot min 3 Viewson 5 Foot min 3 Views Normal [facility] XR ANKLE MINIMUM 3 VIEWS LEF Ton 12-08-2024 XR ANKLE MINIMUM 3 VIEWS LEFT ORIGINAL EXAMINATION: THREE XRAY VIEWS OF THE LEFT ANKLE 12/08/2024 8:27 am COMPARISON: None. HISTORY: ORDERING SYSTEM PROVIDED HISTORY: Reason for Exam: ankle swelling, pain FINDINGS: No acute fracture or dislocation is visualized. The talar dome is intact. The joint spaces are preserved. There is mild soft tissue edema in the lateral foot near the ankle. There are no areas of cortical erosion. IMPRESSION: No fracture or dislocation. Mild soft tissue edema. I have personally reviewed the images of this examination and agree with the resident's findings and interpretation. Interpreted by: Main Moreno DO Preliminary Report By: Taran Graham Electronically signed By Main Moreno DO Dictated Date: 12/08/2024 8:38:37 AM Prelim Date: 12/08/2024 9:02:58 AM Sign Date: 12/08/2024 9:02:58 AM Ordering Provider: BUSHRA LOWE [facility] XR WRIST MINIMUM 3 VIEWS LEF [facility] 12-08-2024 XR WRIST MINIMUM 3 VIEWS LEFT ORIGINAL EXAMINATION: THREE XRAY VIEWS OF THE LEFT WRIST12/08/2024 8:29 am WRIST 3 VIEWS LEFT COMPARISON: None HISTORY: ORDERING SYSTEM PROVIDED HISTORY: Reason for Exam: wrist pain and swelling FINDINGS: No acute fracture or dislocation is identified. The joint spaces are maintained. There is no radiopaque foreign body. Ring obscures the 4th proximal phalanx. IMPRESSION: No acute fracture or dislocation. I have personally reviewed the images of this examination and agree with the resident's findings and interpretation. Interpreted by: Main Moreno DO Preliminary Report By: Yemi Martin MD Electronically signed By Main Moreno DO Dictated Date: 12/08/2024 8:58:53 AM Prelim Date: 12/08/2024 9:20:56 AM Sign Date: 12/08/2024 9:20:56 AM Ordering Provider: BUSHRA LOWE [facility] Ankle min 3 Viewson 12-05-19 Ankle min 3 Views Normal [facility] Emergency Department Summary on 12-04-2024 Emergency Department Summary Normal [facility] Foot min 3 Viewson Foot min 3 Views Normal [facility] Tibia Fibula 2 Viewson 12-04 Tibia Fibula 2 Views Normal [facility] Cardiology Visit Reporton Cardiology Visit Report Normal [facility] Emergency Department Summary on 11-30-2024 Emergency Department Summary Normal [facility] Wrist min 3 Viewson 12-01-19 25 Wrist min 3 Views Normal [facility] Gastroenterology Visit Repor ton 11-13-2024 Gastroenterology Visit Report Normal [facility] L/S Spine Bending Flex/Graham 11-04-2024 L/S Spine Bending Flex/Ext Normal [facility] Orthopedic Visit Reporton Orthopedic Visit Report Normal [facility] Abdomen/Pelvis W IV Cont ONL Yon 10-23-2024 Abdomen/Pelvis W IV Cont ONLY Normal [facility] Absolute lymphocyte countOrd ered By: Neeta Gonzales on 10-23-2024 Lymphocytes Auto (Unsp spec) [#/Vol] 2.10 10*3/uL 0.83-4.51 [facility] Absolute neutrophil countOrd ered By: Neeta Gonzales on 10-23-2024 Neutrophils (Bld) [#/Vol] 5.1 10*3/uL 2.0-7.7 [facility] Anion gap in Serum or Plasma Ordered By: Neeta Gonzales on 10-23-2024 Anion gap [Moles/Vol] 11 mmol/L 5- [facility] Automated lymphocyte count a s percentage of total leukocytesOrdered By: Neeta Gonzales on 10-23-2024 Lymphocytes/100 WBC Auto (Unsp spec) 26.3 % 19- [facility] BUN/creatinine ratioOrdered By: Neeta Gonzales on 10-23-2024 Urea nitrogen/Creatinine [Mass ratio] 16.6 mg/mg 10-20 [facility] Basophil percentageOrdered B y: Neeta Gonzales on 10-23-2024 Basophils/100 WBC (Bld) 0.1 % 0-1 [facility] Bilirubin Test strip Ql (U)O rdered By: Neeta Gonzales on 10-23-2024 Bilirubin Ql (U) 1 mg/dL High Negative [facility] Comment on above: COLOR OF URINE MAY A FFECT DIPSTICK RESULTS. Bilirubin, totalOrdered By: Neeta Gonzales on 10-23-2024 Bilirubin [Mass/Vol] 0.48 mg/dL 0.00-1.30 [facility] CBC W/Diff, Automatedon 10-01 Absolute Lymph 2.10 X10 3/uL Normal 0.83-4.51 [facility] Comment on above: Performed By: #### L 100.0100, L501.2450, L503.6005, L500.4050 ####[facility] [address] [place], [address] Absolute Neut 5.1 X10 3/uL Normal 2.0-7.7 [facility] Comment on above: Performed By: #### L 100.0100, L501.2450, L503.6005, L500.4050 ####[facility] [address] [place], [address] Basophils/100 WBC (Bld) 0.1 % Normal 0-1 [facility] Comment on above: Performed By: #### L 100.0100, L501.2450, L503.6005, L500.4050 ####[facility] [address] [place], [address] Eosinophils/100 WBC (Bld) 2.1 % Normal 0-5 [facility] Comment on above: Performed By: #### L 100.0100, L501.2450, L503.6005, L500.4050 ####[facility] [address] [place], [address] Erythrocyte distribution width (RBC) [Ratio] 12.8 % Normal 11.6-14.6 [facility] Comment on above: Performed By: #### L 100.0100, L501.2450, L503.6005, L500.4050 ####[facility] [address] [place], [address] Hematocrit (Bld) [Volume fraction] 38.2 % Normal 37-47 [facility] Comment on above: Performed By: #### L 100.0100, L501.2450, L503.6005, L500.4050 ####[facility] [address] [place], [address] Hemoglobin (Bld) [Mass/Vol] 13.0 g/dL Normal 12.0-15.0 [facility] Comment on above: Performed By: #### L 100.0100, L501.2450, L503.6005, L500.4050 ####[facility] [address] [place], [address] IG% 0.300 Normal 0.0-0.9 [facility] Comment on above: Result Comment: IG% - Immature Granulocytes (promyelocytes, myelocytes andmetamyelocytes) > 1% indicates that a LEFT SHIFT is Present. Performed By: #### L 100.0100, L501.2450, L503.6005, L500.4050 ####[facility] [address] [place], [address] Lymphocytes/100 WBC (Bld) 26.3 % Normal 19-41 [facility] Comment on above: Performed By: #### L 100.0100, L501.2450, L503.6005, L500.4050 ####[facility] [address] [place], [address] MCH (RBC) [Entitic mass] 30.9 pg Normal 27.0-32.0 [facility] Comment on above: Performed By: #### L 100.0100, L501.2450, L503.6005, L500.4050 ####[facility] [address] [place], [address] MCHC (RBC) [Mass/Vol] 34.0 g/dL Normal 32-36 [facility] Comment on above: Performed By: #### L 100.0100, L501.2450, L503.6005, L500.4050 ####[facility] [address] [place], [address] MCV (RBC) [Entitic vol] 90.7 fL Normal 81-99 [facility] Comment on above: Performed By: #### L 100.0100, L501.2450, L503.6005, L500.4050 ####[facility] [address] [place], [address] Monocytes/100 WBC (Bld) 7.1 % Normal 0-10 [facility] Comment on above: Performed By: #### L 100.0100, L501.2450, L503.6005, L500.4050 ####[facility] [facility] [address] [place], [address] Neutrophils/100 WBC (Bld) 64.1 % Normal 47-70 [facility] Comment on above: Performed By: #### L 100.0100, L501.2450, L503.6005, L500.4050 ####[facility] [address] [place], [address] Nucleated RBC (Bld) [#/Vol] 0 10*3/uL Normal 0-5 [facility] Comment on above: Performed By: #### L 100.0100, L501.2450, L503.6005, L500.4050 ####[facility] [address] [place], [address] Platelet mean volume (Bld) [Entitic vol] 9.1 fL Normal 6.2-12.0 [facility] Comment on above: Performed By: #### L 100.0100, L501.2450, L503.6005, L500.4050 ####[facility] [address] [place], [address] Platelets (Bld) [#/Vol] 273 10*3/uL Normal 150-450 [facility] Comment on above: Performed By: #### L 100.0100, L501.2450, L503.6005, L500.4050 ####[facility] [address] [place], [address] RBC (Bld) [#/Vol] 4.21 10*6/uL Normal 4.2-5.4 [facility] Comment on above: Performed By: #### L 100.0100, L501.2450, L503.6005, L500.4050 ####[facility] [address] [place], [address] RDW SD 42.0 fl Normal 35.1-43.9 [facility] Comment on above: Performed By: #### L 100.0100, L501.2450, L503.6005, L500.4050 ####[facility] [address] [place], [address] WBC (Bld) [#/Vol] 8.0 10*3/uL Normal 4.4-11.0 [facility] Comment on above: Performed By: #### L 100.0100, L501.2450, L503.6005, L500.4050 ####[facility] [address] [place], [address] Carbon dioxide, total [Moles /volume] in Central venous bloodOrdered By: eNeta Gonzales on 10-23-2024 CO2 [Moles/Vol] 23.0 mmol/L 21.0-32.0 [facility] Chloride assayOrdered By: Dannie Gonzales on 10-23-2024 Chloride [Moles/Vol] 106 mmol/L 98-108 [facility] Comprehensive Metabolic Prof ilon 10-23-2024 Albumin [Mass/Vol] 4.1 g/dL Normal 3.5-5.0 [facility] Comment on above: Performed By: #### L 100.0100, L501.2450, L503.6005, L500.4050 ####[facility] [address] [place], [address] Albumin/Globulin [Mass ratio] 1.3 {ratio} Normal 0.9-2.4 [facility] Comment on above: Performed By: #### L 100.0100, L501.2450, L503.6005, L500.4050 ####[facility] [address] [place], [address] ALK PHOS 98 U/L Normal 35-104 [facility] Comment on above: Performed By: #### L 100.0100, L501.2450, L503.6005, L500.4050 ####[facility] [address] [place], [address] ALT [Catalytic activity/Vol] 78 U/L High <=34 [facility] Comment on above: Performed By: #### L 100.0100, L501.2450, L503.6005, L500.4050 ####[facility] [address] [place], [address] AST [Catalytic activity/Vol] 67 U/L High <=31 [facility] Comment on above: Performed By: #### L 100.0100, L501.2450, L503.6005, L500.4050 ####[facility] [address] [place], [address] Bilirubin [Mass/Vol] 0.48 mg/dL Normal 0.00-1.30 [facility] Comment on above: Performed By: #### L 100.0100, L501.2450, L503.6005, L500.4050 ####[facility] [address] [place], [address] BUN/CRE 16.6 RATIO Normal 10-20 [facility] Comment on above: Performed By: #### L 100.0100, L501.2450, L503.6005, L500.4050 ####[facility] [address] [place], [address] Calcium [Mass/Vol] 9.0 mg/dL Normal 7.6-11.0 [facility] Comment on above: Performed By: #### L 100.0100, L501.2450, L503.6005, L500.4050 ####[facility] [address] [place], [address] Chloride [Moles/Vol] 106 mmol/L Normal 98-108 [facility] Comment on above: Performed By: #### L 100.0100, L501.2450, L503.6005, L500.4050 ####[facility] [address] [place], [address] CO2 [Moles/Vol] 23.0 mmol/L Normal 21.0-32.0 [facility] Comment on above: Performed By: #### L 100.0100, L501.2450, L503.6005, L500.4050 ####[facility] [address] [place], [address] Creatinine [Mass/Vol] 1.04 mg/dL Normal 0.70-1.20 [facility] Comment on above: Performed By: #### L 100.0100, L501.2450, L503.6005, L500.4050 ####[facility] [address] [place], [address] ECRCL 72.42 ml/min Normal 50-250 [facility] Comment on above: Performed By: #### L 100.0100, L501.2450, L503.6005, L500.4050 ####[facility] [address] [place], [address] GAP 11 Normal 5-15 [facility] Comment on above: Performed By: #### L 100.0100, L501.2450, L503.6005, L500.4050 ####[facility] [address] [place], [address] GFR/1.73 sq M.predicted among non-blacks MDRD (S/P/Bld) [Vol rate/Area] 67 mL/min/{1.73_m2} Normal >60 [facility] Comment on above: Result Comment: mL/m in/1.73m2 CKD-EPI Creatinine Equation (2020) Performed By: #### L 100.0100, L501.2450, L503.6005, L500.4050 ####[facility] [address] [place], [address] Globulin (S) [Mass/Vol] 3.3 g/dL Normal 2.2-4.2 [facility] Comment on above: Performed By: #### L 100.0100, L501.2450, L503.6005, L500.4050 ####[facility] [address] [place], [address] Glucose [Mass/Vol] 96 mg/dL Normal 70-99 [facility] Comment on above: Performed By: #### L 100.0100, L501.2450, L503.6005, L500.4050 ####[facility] [address] [place], [address] Potassium [Moles/Vol] 3.2 mmol/L Low 3.3-5.1 [facility] Comment on above: Performed By: #### L 100.0100, L501.2450, L503.6005, L500.4050 ####[facility] [address] [place], [address] Sodium [Moles/Vol] 139 mmol/L Normal 133-145 [facility] Comment on above: Performed By: #### L 100.0100, L501.2450, L503.6005, L500.4050 ####[facility] [address] [place], [place], [address] T PROT 7.4 g/dL Normal 5.9-8.4 [facility] Comment on above: Performed By: #### L 100.0100, L501.2450, L503.6005, L500.4050 ####[facility] [address] [place], [address] Urea nitrogen [Mass/Vol] 17 mg/dL Normal 4-19 [facility] Comment on above: Performed By: #### L 100.0100, L501.2450, L503.6005, L500.4050 ####[facility] [address] [place], [place], [address] Emergency Department Summary on 10-23-2024 Emergency Department Summary Normal [facility] Eosinophil percentageOrdered By: Neeta Gonzales on 10-23-2024 Eosinophils/100 WBC (Bld) 2.1 % 0-5 [facility] Erythrocyte distribution wid th ratioOrdered By: Neeta Gonzales on 10-23-2024 Erythrocyte distribution width (RBC) [Ratio] 12.8 % 11.6-14.6 [facility] Erythrocyte distribution wid th standard deviationOrdered By: Neeta Gonzales on 10-23-2024 Erythrocyte distribution width (RBC) [Ratio] 42.0 fl 35.1-43.9 [facility] Glomerular filtration rate ( GFR) estimation/1.73 sq m using serum, plasma, or whole bOrdered By: Neeta Gonzales on 10-23-2024 GFR/1.73 sq M.predicted among non-blacks MDRD (S/P/Bld) [Vol rate/Area] 67 mL/min/{1.73_m2} >60 [facility] Comment on above: mL/min/1.73m2 CKD-EP I Creatinine Equation (2020) Hematocrit Auto (Bld) [Volum e fraction]Ordered By: Neeta Gonzales on 10-23-2024 Hematocrit (Bld) [Volume fraction] 38.2 % 37-47 [facility] Hemoglobin measurementOrdere d By: Neeta Gonzales on 10-23-2024 Hemoglobin (Bld) [Mass/Vol] 13.0 g/dL 12.0-15.0 [facility] Immature granulocytes/100 WB C Auto (Bld)Ordered By: Neeta Gonzales on 10-23-2024 Immature granulocytes/100 WBC (Bld) 0.300 % 0.0-0.9 [facility] Comment on above: IG% - Immature Granu locytes (promyelocytes, myelocytes and metamyelocytes) > 1% indicates that a LEFT SHIFT is Present. Ketones Test strip Ql (U)Ord ered By: Neeta Gonzales on 10-23-2024 Ketones Ql (U) Negative Negative [facility] Laboratory - Chemistry and C hemistry - challengeOrdered By: Neeta Gonzales on 10-23-2024 AST [Catalytic activity/Vol] 67 U/L High <32 [facility] Lactic Acidon 10-23-2024 Lactate [Moles/Vol] mmol/L Normal 0.0-2.0 [facility] Comment on above: Order Comment: Y Performed By: #### L 100.0100, L501.2450, L503.6005, L500.4050 ####[facility] [address] [place], [place], [address] Lactic acid measurementOrder ed By: Neeta Gonzales on 10-23-2024 Lactate [Moles/Vol] mmol/L 0.0-2.0 [facility] Lipaseon 10-23-2024 Lipase [Catalytic activity/Vol] 40 U/L Normal 13-75 [facility] Comment on above: Result Comment: Arcadio de la paz note:LIPASE revised reference range effective 22.New Lipase methodology. Expected to produce lower valuesthan the previous assay method.NEW Reference Range: 13 - 75 U/L Performed By: #### L 100.0100, L501.2450, L503.6005, L500.4050 ####[facility] [address] [place], [address] Lipase measurementOrdered By : Neeta Gonzales on 10-23-2024 Lipase [Catalytic activity/Vol] 40 U/L 13-75 [facility] Comment on above: Please note:LIPASE r evised reference range effective 22. New Lipase methodology. Expected to produce lower values than the previous assay method. NEW Reference Range: 13 - 75 U/L MCV (mean corpuscular volume ) determinationOrdered By: Neeta Gonzales on 10-23-2024 MCV (RBC) [Entitic vol] 90.7 fL 81-99 [facility] Mean corpuscular hemoglobin (MCH) determinationOrdered By: Neeta Gonzales on 10-23-2024 MCH (RBC) [Entitic mass] 30.9 pg 27.0-32.0 [facility] Mean corpuscular hemoglobin concentration (MCHC) determinationOrdered By: Neeta Gonzales on 10-23-2024 MCHC (RBC) [Mass/Vol] 34.0 g/dL 32-36 [facility] Mean platelet volume determi nationOrdered By: Neeta Gonzales on 10-23-2024 Platelet mean volume (Bld) [Entitic vol] 9.1 fL 6.2-12.0 [facility] Microscopic analysis of urin e for red blood cells (RBC)Ordered By: Neeta Gonzales on 10-23-2024 Microscopic analysis of urine for red blood cells (RBC) 0 SEEN /hpf 0-5 [facility] Monocyte percentageOrdered B y: Neeta Gonzales on 10-23-2024 Monocytes/100 WBC (Bld) 7.1 % 0-10 [facility] Mucus LM Ql (Urine sed)Order ed By: Neeta Gonzales on 10-23-2024 Mucus Ql (Urine sed) 1+ /hpf [facility] Neutrophil percentageOrdered By: Neeta Gonzales on 10-23-2024 Neutrophils/100 WBC (Bld) 64.1 % 47-70 [facility] Nitrite Test strip Ql (U)Ord ered By: Neeta Gonzales on 10-23-2024 Nitrite Ql (U) Negative Negative [facility] Nucleated red blood cell per centageOrdered By: Neeta Gonzales on 10-23-2024 Nucleated RBC/100 WBC (Bld) [Ratio] 0 % 0-5 [facility] Platelet countOrdered By: Dannie Gonzales on 10-23-2024 Platelets (Bld) [#/Vol] 273 10*3/uL 150-450 [facility] Potassium measurement (mass/ volume)Ordered By: Neeta Gonzales on 10-23-2024 Potassium (Unsp spec) [Mass/Vol] 3.2 mmol/L Low 3.3-5.1 [facility] Protein Test strip Ql (U)Ord ered By: Neeta Gonzales on 10-23-2024 Protein Ql (U) 30 mg/dl High Negative [facility] RBC Auto (Bld) [#/Vol]Ordere d By: Neeta Gonzales on 10-23-2024 RBC (Bld) [#/Vol] 4.21 10*6/uL 4.2-5.4 [facility] Serum creatinine measurement (mass/volume)Ordered By: Neeta Gonzales on 10-23-2024 Creatinine [Mass/Vol] 1.04 mg/dL 0.70-1.20 [facility] Serum globulin measurementOr dered By: Neeta Gonzales on 10-23-2024 Globulin (S) [Mass/Vol] 3.3 g/dL 2.2-4.2 [facility] Serum glucose measurement (m ass/volume)Ordered By: Neeta Gonzales on 10-23-2024 Glucose [Mass/Vol] 96 mg/dL 70-99 [facility] Serum or plasma alanine irwin otransferase (ALT) measurementOrdered By: Netea Gonzales on 10-23-2024 ALT [Catalytic activity/Vol] 78 U/L High <35 [facility] Serum or plasma albumin marianna urement (mass/volume)Ordered By: Neeta Gonzales on 10-23-2024 Albumin [Mass/Vol] 4.1 g/dL 3.5-5.0 [facility] Serum or plasma albumin/glob ulin mass ratioOrdered By: Neeta Gonzales on 10-23-2024 Albumin/Globulin [Mass ratio] 1.3 {ratio} 0.9-2.4 [facility] Serum or plasma alkaline caity sphatase measurementOrdered By: Neeta Gonzales on 10-23-2024 ALP [Catalytic activity/Vol] 98 U/L 35-104 [facility] Serum or plasma calcium marianna urement (mass/volume)Ordered By: Neeta Gonzales on 10-23-2024 Calcium [Mass/Vol] 9.0 mg/dL 7.6-11.0 [facility] Serum or plasma urea nitroge n measurement (mass/volume)Ordered By: Neeta Gonzalse on 10-23-2024 Urea nitrogen [Mass/Vol] 17 mg/dL 4-19 [facility] Sodium levelOrdered By: Satya Gonzales on 10-23-2024 Sodium [Moles/Vol] 139 mmol/L 133-145 [facility] Squamous epithelial cells de tection in urine sediment by light microscopyOrdered By: Neeta Gonzales on 10-23-2024 Epithelial cells.squamous LM Ql (Urine sed) 5-10 SEEN /hpf 5-10 [facility] Total proteinOrdered By: Bella Gonzales on 10-23-2024 Protein [Mass/Vol] 7.4 g/dL 5.9-8.4 [facility] Urinalysis, Completeon 10-23 BACTERIA 2+ /hpf Normal None Seen [facility] Comment on above: Order Comment: CLEAN CATCH Performed By: #### L 400.0001 ####[facility] [address] [place], [place], [id number] EPI,SQUAMOUS 5-10 SEEN Normal 5-10 [facility] Comment on above: Order Comment: CLEAN CATCH Performed By: #### L 400.0001 ####[facility] [address] [place], [place], [address] Mucus Ql (Urine sed) 1+ /hpf Normal [facility] Comment on above: Order Comment: CLEAN CATCH Performed By: #### L 400.0001 ####[facility] [address] [place], [place], [address] WBC 0-5 SEEN Normal 0-5 [facility] Comment on above: Order Comment: CLEAN CATCH Performed By: #### L 400.0001 ####[facility] [address] [place], [address] RBC 0 SEEN Normal 0-5 [facility] Comment on above: Order Comment: CLEAN CATCH Performed By: #### L 400.0001 ####[facility] [address] [place], [address] Urine clarityOrdered By: Bella Gonzales on 10-23-2024 Clarity (U) Sl. Cloudy Clear [facility] Urine color determinationOrd ered By: Neeta Gonzales on 10-23-2024 Color (U) Yellow Yellow [facility] Urine glucose detectionOrder ed By: Neeta Gonzales on 10-23-2024 Glucose Ql (U) Normal mg/dl Normal [facility] Urine leukocyte esterase det ection by dipstickOrdered By: Neeta Gonzales on 10-23-2024 Leukocyte esterase Test strip Ql (U) Negative Negative [facility] Urine pHOrdered By: Neeta rosado on 10-23-2024 pH (U) 6.0 [pH] 5.0 - 8.0 [facility] Urine sediment bacteria coun t by microscopy (number/high power field)Ordered By: Neeta Gonzales on 10-23-2024 Bacteria LM.HPF (Urine sed) [#/Area] 2 /[HPF] None Seen [facility] Urine specific gravity measu rementOrdered By: Neeta Gonzales on 10-23-2024 Specific gravity (U) [Rel density] 1.020 1.002-1.030 [facility] Urine urobilinogen measureme ntOrdered By: Neeta Gonzales on 10-23-2024 Urobilinogen Ql (U) 1 mg/dl High Normal [facility] White blood cell (WBC) count Ordered By: Neeta Gonzales on 10-23-2024 WBC (Bld) [#/Vol] 8.0 10*3/uL 4.4-11.0 [facility] White blood cell countOrdere d By: Neeta Gonzales on 10-23-2024 White blood cell count 0-5 SEEN /hpf 0-5 [facility] Venous duplex ultrasound rep ortOrdered By: Sumanth Patino on 10-19-2024 US Vein [facility] [address] [place] [address] Venous Duplex US, Unilateral 10/17/24 0957 MR#: [id number] Acct: [id number] Name: DAMARI RIOS Rep #:[id number] : 1975 48 From: Sumanth Hernandez Attending Dr: Dr. Dwayne Stephens MD S [...] Referring Physician: Dwayne Stephens Performed By: Venus Thorpe, RVT 10/19/24 1013 Date _ Sumanth Patino MD CC: Dr. Dwayne Stephens MD ~ Date Dictated: 10/17/24 0957 Date Transcribed: 10/19/24 101 Power Bender Operator: Signed [facility] Work Phone: Venous Duplex US, Unilateral on 10-17-2024 Venous Duplex US, Unilateral Normal [facility] D-Dimer Quantitative (DVT/PE )on 10-16-2024 D-DIMER QUANT 0.27 FEU/ug/m Normal 0.27-0.49 [facility] Comment on above: Result Comment: NORM AL D-Dimer level (<0.50) indicates no DVT or PE. Performed By: #### L 300.8000 ####[facility] [address] [place], [place], [address] D-dimer measurement for deep venous thrombosisOrdered By: Dwayne Stephens on 10-16-2024 D-Dimer Quantitative (PE/DVT) 0.27 FEU/ug/m 0.27-0.49 [facility] Comment on above: NORMAL D-Dimer level (<0.50) indicates no DVT or PE. Emergency Department Summary on 10-01-2024 Emergency Department Summary Normal [facility] Tibia Fibula 2 Viewson 10-01 Tibia Fibula 2 Views Normal [facility] Ankle Brachial Indexon 09-25 Ankle Brachial Index Normal [facility] Arterial study reportOrdered By: Sumanth Patino on 09-25-2024 Noninvasive arteriosclerosis study report [facility] [address] [place] [address] Ankle Brachial Index 09/25/24 1404 MR#: [id number] Acct: [id number] Name: DAMARI RIOS Rep #:[id number] : 1975 48 From: Sumanth Hernandez Attending Dr: Dr. Dwayne Stephens MD S tatus: REG CLI Ordering Dr: Dwayne Stephens MD Date: Location: [facility] Sex: F C Admitted: Reason For Study [...] DWAYNE STEPHENS MD Performed By: VENUS THORPE T 09/25/24 1824 Date _ Sumanth Patino MD CC: Dr. Dwayne Stephens MD ~ Date Dictated: 09/25/24 1404 Date Transcribed: 09/25/241823 Power Bender Operator: Signed [facility] Work Phone: Abdomen/Pelvis W IV Cont ONL Yon 09-24-2024 Abdomen/Pelvis W IV Cont ONLY Normal [facility] Absolute lymphocyte countOrd ered By: ED PROVIDER on 09-24-2024 Lymphocytes Auto (Unsp spec) [#/Vol] 3.50 10*3/uL 0.83-4.51 [facility] Absolute neutrophil countOrd ered By: ED PROVIDER on 09-24-2024 Neutrophils (Bld) [#/Vol] 3.3 10*3/uL 2.0-7.7 [facility] Amorphous sediment detection in urine sediment by light microscopyOrdered By: Sumanth [place] on 09-24-2024 Amorphous sediment LM Ql (Urine sed) 1+ [facility] Anion gap in Serum or Plasma Ordered By: Sumanth [place] on 09-24-2024 Anion gap [Moles/Vol] 11 mmol/L 5-15 [facility] Automated lymphocyte count a s percentage of total leukocytesOrdered By: ED PROVIDER on 09-24-2024 Lymphocytes/100 WBC Auto (Unsp spec) 45.7 % High 19-41 [facility] BUN/creatinine ratioOrdered By: Sumanth [place] on 09-24-2024 Urea nitrogen/Creatinine [Mass ratio] 19.3 mg/mg 10-20 [facility] Basophil percentageOrdered B y: ED PROVIDER on 09-24-2024 Basophils/100 WBC (Bld) 0.5 % 0-1 [facility] Beta HCG ( test) Ql Ordered By: Sumanth [place] on 09-24-2024 Serum Test, Qualitative Negative [facility] Bilirubin Test strip Ql (U)O rdered By: Sumanth [place] on 09-24-2024 Bilirubin Ql (U) Negative Negative [facility] Bilirubin, totalOrdered By: Sumanth [place] on 09-24-2024 Bilirubin [Mass/Vol] 0.19 mg/dL 0.00-1.30 [facility] CBC W/Diff, Automatedon 08-31 Absolute Lymph 3.50 X10 3/uL Normal 0.83-4.51 [facility] Comment on above: Performed By: #### L 500.4050, L700.6800, L100.0100, L501.2450 ####[facility] [address] [place], [address] Absolute Neut 3.3 X10 3/uL Normal 2.0-7.7 [facility] Comment on above: Performed By: #### L 500.4050, L700.6800, L100.0100, L501.2450 ####[facility] [address] [place], [address] Basophils/100 WBC (Bld) 0.5 % Normal 0-1 [facility] Comment on above: Performed By: #### L 500.4050, L700.6800, L100.0100, L501.2450 ####[facility] [address] [place], [address] Eosinophils/100 WBC (Bld) 3.7 % Normal 0-5 [facility] Comment on above: Performed By: #### L 500.4050, L700.6800, L100.0100, L501.2450 ####[facility] [address] [place], [address] Erythrocyte distribution width (RBC) [Ratio] 12.6 % Normal 11.6-14.6 [facility] Comment on above: Performed By: #### L 500.4050, L700.6800, L100.0100, L501.2450 ####[facility] [address] [place], [address] Hematocrit (Bld) [Volume fraction] 35.7 % Low 37-47 [facility] Comment on above: Performed By: #### L 500.4050, L700.6800, L100.0100, L501.2450 ####[facility] [address] [place], [address] Hemoglobin (Bld) [Mass/Vol] 12.4 g/dL Normal 12.0-15.0 [facility] Comment on above: Performed By: #### L 500.4050, L700.6800, L100.0100, L501.2450 ####[facility] [address] [place], [address] IG% 0.300 Normal 0.0-0.9 [facility] Comment on above: Result Comment: IG% - Immature Granulocytes (promyelocytes, myelocytes andmetamyelocytes) > 1% indicates that a LEFT SHIFT is Present. Performed By: #### L 500.4050, L700.6800, L100.0100, L501.2450 ####[facility] [address] [place], [address] Lymphocytes/100 WBC (Bld) 45.7 % High 19-41 [facility] Comment on above: Performed By: #### L 500.4050, L700.6800, L100.0100, L501.2450 ####[facility] [address] [place], [address] MCH (RBC) [Entitic mass] 31.2 pg Normal 27.0-32.0 [facility] Comment on above: Performed By: #### L 500.4050, L700.6800, L100.0100, L501.2450 ####[facility] [address] [place], [address] MCHC (RBC) [Mass/Vol] 34.7 g/dL Normal 32-36 [facility] Comment on above: Performed By: #### L 500.4050, L700.6800, L100.0100, L501.2450 ####[facility] [address] [place], [address] MCV (RBC) [Entitic vol] 89.9 fL Normal 81-99 [facility] Comment on above: Performed By: #### L 500.4050, L700.6800, L100.0100, L501.2450 ####[facility] [address] [place], [address] Monocytes/100 WBC (Bld) 6.9 % Normal 0-10 [facility] Comment on above: Performed By: #### L 500.4050, L700.6800, L100.0100, L501.2450 ####[facility] [address] [place], [address] Neutrophils/100 WBC (Bld) 42.9 % Low 47-70 [facility] Comment on above: Performed By: #### L 500.4050, L700.6800, L100.0100, L501.2450 ####[facility] [address] [place], [address] Nucleated RBC (Bld) [#/Vol] 0 10*3/uL Normal 0-5 [facility] Comment on above: Performed By: #### L 500.4050, L700.6800, L100.0100, L501.2450 ####[facility] [address] [place], [address] Platelet mean volume (Bld) [Entitic vol] 8.6 fL Normal 6.2-12.0 [facility] Comment on above: Performed By: #### L 500.4050, L700.6800, L100.0100, L501.2450 ####[facility] [address] [place], [address] Platelets (Bld) [#/Vol] 344 10*3/uL Normal 150-450 [facility] Comment on above: Performed By: #### L 500.4050, L700.6800, L100.0100, L501.2450 ####[facility] [address] [place], [address] RBC (Bld) [#/Vol] 3.97 10*6/uL Low 4.2-5.4 [facility] Comment on above: Performed By: #### L 500.4050, L700.6800, L100.0100, L501.2450 ####[facility] [address] [place], [address] RDW SD 41.2 fl Normal 35.1-43.9 [facility] Comment on above: Performed By: #### L 500.4050, L700.6800, L100.0100, L501.2450 ####[facility] [address] [place], [address] WBC (Bld) [#/Vol] 7.7 10*3/uL Normal 4.4-11.0 [facility] Comment on above: Performed By: #### L 500.4050, L700.6800, L100.0100, L501.2450 ####[facility] [address] [place], [address] Carbon dioxide, total [Moles /volume] in Central venous bloodOrdered By: Sumanth Coyne on 09-24-2024 CO2 [Moles/Vol] 22.7 mmol/L 21.0-32.0 [facility] Chloride assayOrdered By: Andre Coyne on 09-24-2024 Chloride [Moles/Vol] 108 mmol/L 98-108 [facility] Comprehensive Metabolic Prof ilon 09-24-2024 Albumin [Mass/Vol] 4.2 g/dL Normal 3.5-5.0 [facility] Comment on above: Performed By: #### L 500.4050, L700.6800, L100.0100, L501.2450 ####[facility] [address] [place], [address] Albumin/Globulin [Mass ratio] 1.4 {ratio} Normal 0.9-2.4 [facility] Comment on above: Performed By: #### L 500.4050, L700.6800, L100.0100, L501.2450 ####[facility] [address] [place], [address] ALK PHOS 85 U/L Normal 35-104 [facility] Comment on above: Performed By: #### L 500.4050, L700.6800, L100.0100, L501.2450 ####[facility] [address] [place], [address] ALT [Catalytic activity/Vol] 43 U/L High <=34 [facility] Comment on above: Performed By: #### L 500.4050, L700.6800, L100.0100, L501.2450 ####[facility] [address] [place], [address] AST [Catalytic activity/Vol] 39 U/L High <=31 [facility] Comment on above: Result Comment: Hemo lysis present, Results??could be affected.?? Performed By: #### L 500.4050, L700.6800, L100.0100, L501.2450 ####[facility] [address] [place], [address] Bilirubin [Mass/Vol] 0.19 mg/dL Normal 0.00-1.30 [facility] Comment on above: Performed By: #### L 500.4050, L700.6800, L100.0100, L501.2450 ####[facility] [address] [place], [address] BUN/CRE 19.3 RATIO Normal 10-20 [facility] Comment on above: Performed By: #### L 500.4050, L700.6800, L100.0100, L501.2450 ####[facility] [address] [place], [address] Calcium [Mass/Vol] 9.1 mg/dL Normal 7.6-11.0 [facility] Comment on above: Performed By: #### L 500.4050, L700.6800, L100.0100, L501.2450 ####[facility] [address] [place], [address] Chloride [Moles/Vol] 108 mmol/L Normal 98-108 [facility] Comment on above: Performed By: #### L 500.4050, L700.6800, L100.0100, L501.2450 ####[facility] [address] [place], [address] CO2 [Moles/Vol] 22.7 mmol/L Normal 21.0-32.0 [facility] Comment on above: Performed By: #### L 500.4050, L700.6800, L100.0100, L501.2450 ####[facility] [address] [place], [address] Creatinine [Mass/Vol] 1.01 mg/dL Normal 0.70-1.20 [facility] Comment on above: Performed By: #### L 500.4050, L700.6800, L100.0100, L501.2450 ####[facility] [address] [place], [address] ECRCL 76.03 ml/min Normal 50-250 [facility] Comment on above: Performed By: #### L 500.4050, L700.6800, L100.0100, L501.2450 ####[facility] [address] [place], [address] GAP 11 Normal 5-15 [facility] Comment on above: Performed By: #### L 500.4050, L700.6800, L100.0100, L501.2450 ####[facility] [address] [place], [address] GFR/1.73 sq M.predicted among non-blacks MDRD (S/P/Bld) [Vol rate/Area] 69 mL/min/{1.73_m2} Normal >60 [facility] Comment on above: Result Comment: mL/m in/1.73m2 CKD-EPI Creatinine Equation (2020) Performed By: #### L 500.4050, L700.6800, L100.0100, L501.2450 ####[facility] [address] [place], [address] Globulin (S) [Mass/Vol] 3.1 g/dL Normal 2.2-4.2 [facility] Comment on above: Performed By: #### L 500.4050, L700.6800, L100.0100, L501.2450 ####[facility] [address] [place], [address] Glucose [Mass/Vol] 109 mg/dL High 70-99 [facility] Comment on above: Performed By: #### L 500.4050, L700.6800, L100.0100, L501.2450 ####[facility] [address] [place], [address] Potassium [Moles/Vol] 4.2 mmol/L Normal 3.3-5.1 [facility] Comment on above: Result Comment: Hemo lysis present, Results??could be affected.?? Performed By: #### L 500.4050, L700.6800, L100.0100, L501.2450 ####[facility] [address] [place], [address] Sodium [Moles/Vol] 141 mmol/L Normal 133-145 [facility] Comment on above: Performed By: #### L 500.4050, L700.6800, L100.0100, L501.2450 ####[facility] [address] [place], [address] T PROT 7.3 g/dL Normal 5.9-8.4 [facility] Comment on above: Performed By: #### L 500.4050, L700.6800, L100.0100, L501.2450 ####[facility] [address] [place], [address] Urea nitrogen [Mass/Vol] 20 mg/dL High 4-19 [facility] Comment on above: Performed By: #### L 500.4050, L700.6800, L100.0100, L501.2450 ####[facility] [address] [place], [place], [address] Emergency Department Summary on 09-24-2024 Emergency Department Summary Normal [facility] Eosinophil percentageOrdered By: ED PROVIDER on 09-24-2024 Eosinophils/100 WBC (Bld) 3.7 % 0-5 [facility] Epithelial cells.squamous LM Ql (Urine sed)Ordered By: Sumanth Coyne on 09-24-2024 Epithelial cells.squamous LM.HPF (Urine sed) [#/Area] 5 /[HPF] 5-10 [facility] Erythrocyte distribution wid th ratioOrdered By: ED PROVIDER on 09-24-2024 Erythrocyte distribution width (RBC) [Ratio] 12.6 % 11.6-14.6 [facility] Erythrocyte distribution wid th standard deviationOrdered By: ED PROVIDER on 09-24-2024 Erythrocyte distribution width (RBC) [Entitic vol] 41.2 fL 35.1-43.9 [facility] Erythrocyte distribution width (RBC) [Ratio] 41.2 fl 35.1-43.9 [facility] Estimation of creatinine jenny aranceOrdered By: Sumanth Coyne on 09-24-2024 Estimated Creatinine Clearance Calc 76.03 ml/min 50-250 [facility] GFR/1.73 sq M.predicted nel g non-blacks MDRD (S/P/Bld) [Vol rate/Area]Ordered By: Sumanth Coyne on 09-24-2024 Estimated GFR (MDRD) Non-Af Amer 69 >60 [facility] Comment on above: mL/min/1.73m2 CKD-EP I Creatinine Equation (2020) Glomerular filtration rate ( GFR) estimation/1.73 sq m using serum, plasma, or whole bOrdered By: Sumanth Coyne on 09-24-2024 GFR/1.73 sq M.predicted among non-blacks MDRD (S/P/Bld) [Vol rate/Area] 69 mL/min/{1.73_m2} >60 [facility] Comment on above: mL/min/1.73m2 CKD-EP I Creatinine Equation (2020) Glucose Ql (U)Ordered By: Andre Coyne on 09-24-2024 Urine Glucose (UA) Normal mg/dl Normal [facility] Hematocrit Auto (Bld) [Volum e fraction]Ordered By: ED PROVIDER on 09-24-2024 Hematocrit (Bld) [Volume fraction] 35.7 % Low 37-47 [facility] Hemoglobin measurementOrdere d By: ED PROVIDER on 09-24-2024 Hemoglobin (Bld) [Mass/Vol] 12.4 g/dL 12.0-15.0 [facility] Immature granulocytes/100 WB C Auto (Bld)Ordered By: ED PROVIDER on 09-24-2024 Immature granulocytes/100 WBC (Bld) 0.300 % 0.0-0.9 [facility] Comment on above: IG% - Immature Granu locytes (promyelocytes, myelocytes and metamyelocytes) > 1% indicates that a LEFT SHIFT is Present. Ketones Test strip Ql (U)Ord ered By: Sumanth Coyne on 09-24-2024 Ketones Ql (U) Negative Negative [facility] Laboratory - Chemistry and C hemistry - challengeOrdered By: Sumanth Coyne on 09-24-2024 AST [Catalytic activity/Vol] 39 U/L High <32 [facility] Comment on above: Hemolysis present, R esults could be affected. Lipaseon 09-24-2024 Lipase [Catalytic activity/Vol] 47 U/L Normal 13-75 [facility] Comment on above: Result Comment: Arcadio de la paz note:LIPASE revised reference range effective 22.New Lipase methodology. Expected to produce lower valuesthan the previous assay method.NEW Reference Range: 13 - 75 U/L Performed By: #### L 500.4050, L700.6800, L100.0100, L501.2450 ####[facility] [address] [place], [address] Lipase measurementOrdered By : Sumanth Coyne on 09-24-2024 Lipase [Catalytic activity/Vol] 47 U/L 13-75 [facility] Comment on above: Please note:LIPASE r evised reference range effective 22. New Lipase methodology. Expected to produce lower values than the previous assay method. NEW Reference Range: 13 - 75 U/L Lymphocytes Auto (Unsp spec) [#/Vol]Ordered By: ED PROVIDER on 09-24-2024 Lymphocytes (Bld) [#/Vol] 3.50 10*3/uL 0.83-4.51 [facility] Lymphocytes/100 WBC Auto (Un sp spec)Ordered By: ED PROVIDER on 09-24-2024 Lymphocytes/100 WBC (Bld) 45.7 % High 19-41 [facility] MCV (mean corpuscular volume ) determinationOrdered By: ED PROVIDER on 09-24-2024 MCV (RBC) [Entitic vol] 89.9 fL 81-99 [facility] Mean corpuscular hemoglobin (MCH) determinationOrdered By: ED PROVIDER on 09-24-2024 MCH (RBC) [Entitic mass] 31.2 pg 27.0-32.0 [facility] Mean corpuscular hemoglobin concentration (MCHC) determinationOrdered By: ED PROVIDER on 09-24-2024 MCHC (RBC) [Mass/Vol] 34.7 g/dL 32-36 [facility] Mean platelet volume determi nationOrdered By: ED PROVIDER on 09-24-2024 Platelet mean volume (Bld) [Entitic vol] 8.6 fL 6.2-12.0 [facility] Microscopic analysis of urin e for red blood cells (RBC)Ordered By: Sumanth Coyne on 09-24-2024 Microscopic analysis of urine for red blood cells (RBC) 0-5 SEEN /hpf 0-5 [facility] Urine RBC 0-5 SEEN /hpf 0-5 [facility] Monocyte percentageOrdered B y: ED PROVIDER on 09-24-2024 Monocytes/100 WBC (Bld) 6.9 % 0-10 [facility] Mucus LM Ql (Urine sed)Order ed By: Sumanth Coyne on 09-24-2024 Mucus Ql (Urine sed) 0 SEEN /hpf [facility] Neutrophil percentageOrdered By: ED PROVIDER on 09-24-2024 Neutrophils/100 WBC (Bld) 42.9 % Low 47-70 [facility] Nitrite Test strip Ql (U)Ord ered By: Sumanth Coyne on 09-24-2024 Nitrite Ql (U) Negative Negative [facility] Nucleated red blood cell per centageOrdered By: ED PROVIDER on 09-24-2024 Nucleated RBC/100 WBC (Bld) [Ratio] 0 % 0-5 [facility] Platelet countOrdered By: ED PROVIDER on 09-24-2024 Platelets (Bld) [#/Vol] 344 10*3/uL 150-450 [facility] Potassium (Unsp spec) [Mass/ Vol]Ordered By: Sumanth Coyne on 09-24-2024 Potassium [Moles/Vol] 4.2 mmol/L 3.3-5.1 [facility] Comment on above: Hemolysis present, R esults could be affected. Potassium measurement (mass/ volume)Ordered By: Sumanth Coyne on 09-24-2024 Potassium (Unsp spec) [Mass/Vol] 4.2 mmol/L 3.3-5.1 [facility] Comment on above: Hemolysis present, R esults could be affected. ,Serum,hCG Quali.on 09-24-2024 HCG, SERUM QUAL Negative Normal [facility] Comment on above: Performed By: #### L 500.4050, L700.6800, L100.0100, L501.2450 ####[facility] [address] [place], [address] Protein Test strip Ql (U)Ord ered By: Sumanth Coyne on 09-24-2024 Protein Ql (U) 30 mg/dl High Negative [facility] RBC Auto (Bld) [#/Vol]Ordere d By: ED PROVIDER on 09-24-2024 RBC (Bld) [#/Vol] 3.97 10*6/uL Low 4.2-5.4 [facility] Serum beta-hCG test, qualita tiveOrdered By: Sumanth Coyne on 09-24-2024 Beta HCG ( test) Ql Negative [facility] Serum creatinine measurement (mass/volume)Ordered By: Sumanth Coyne on 09-24-2024 Creatinine [Mass/Vol] 1.01 mg/dL 0.70-1.20 [facility] Serum globulin measurementOr dered By: Sumanth Coyne on 09-24-2024 Globulin (S) [Mass/Vol] 3.1 g/dL 2.2-4.2 [facility] Serum glucose measurement (m ass/volume)Ordered By: Sumanth Coyne on 09-24-2024 Glucose [Mass/Vol] 109 mg/dL High 70-99 [facility] Serum or plasma alanine irwin otransferase (ALT) measurementOrdered By: Sumanth Coyne on 09-24-2024 ALT [Catalytic activity/Vol] 43 U/L High <35 [facility] Serum or plasma albumin marianna urement (mass/volume)Ordered By: Sumanth Coyne on 09-24-2024 Albumin [Mass/Vol] 4.2 g/dL 3.5-5.0 [facility] Serum or plasma albumin/glob ulin mass ratioOrdered By: Sumanth Coyne on 09-24-2024 Albumin/Globulin [Mass ratio] 1.4 {ratio} 0.9-2.4 [facility] Serum or plasma alkaline caity sphatase measurementOrdered By: Sumanth Coyne on 09-24-2024 ALP [Catalytic activity/Vol] 85 U/L 35-104 [facility] Serum or plasma calcium marianna urement (mass/volume)Ordered By: Sumanth Coyne on 09-24-2024 Calcium [Mass/Vol] 9.1 mg/dL 7.6-11.0 [facility] Serum or plasma urea nitroge n measurement (mass/volume)Ordered By: Sumanth Coyne on 09-24-2024 Urea nitrogen [Mass/Vol] 20 mg/dL High 4-19 [facility] Sodium levelOrdered By: Sumanth Coyne on 09-24-2024 Sodium [Moles/Vol] 141 mmol/L 133-145 [facility] Squamous epithelial cells de tection in urine sediment by light microscopyOrdered By: Sumanth Coyne on 09-24-2024 Epithelial cells.squamous LM Ql (Urine sed) 5-10 SEEN /hpf 5-10 [facility] Total proteinOrdered By: Sugar Coyne on 09-24-2024 Protein [Mass/Vol] 7.3 g/dL 5.9-8.4 [facility] Urinalysis, Completeon 09-24 AMORPHOUS 1+ Normal [facility] Comment on above: Order Comment: CLEAN CATCH Performed By: #### L 400.0001 ####[facility] [address] [place], [address] BACTERIA 2+ /hpf Normal None Seen [facility] Comment on above: Order Comment: CLEAN CATCH Performed By: #### L 400.0001 ####[facility] [address] [place], [address] EPI,SQUAMOUS 5-10 SEEN Normal 5-10 [facility] Comment on above: Order Comment: CLEAN CATCH Performed By: #### L 400.0001 ####[facility] [address] [place], [address] Mucus Ql (Urine sed) 0 SEEN Normal [facility] Comment on above: Order Comment: CLEAN CATCH Performed By: #### L 400.0001 ####[facility] [address] [facility] [address] RBC 0-5 SEEN Normal 0-5 [facility] Comment on above: Order Comment: CLEAN CATCH Performed By: #### L 400.0001 ####[facility] [address] [place], [address] WBC 0-5 SEEN Normal 0-5 [facility] Comment on above: Order Comment: CLEAN CATCH Performed By: #### L 400.0001 ####[facility] [address] [place], [address] Urine blood detectionOrdered By: Sumanth Coyne on 09-24-2024 Urine Occult Blood 10 /ul High Negative [facility] Urine clarityOrdered By: Sugar Coyne on 09-24-2024 Clarity (U) Sl. Cloudy Clear [facility] Urine color determinationOrd ered By: Sumanth Coyne on 09-24-2024 Color (U) Yellow Yellow [facility] Urine glucose detectionOrder ed By: Sumanth Coyne on 09-24-2024 Glucose Ql (U) Normal mg/dl Normal [facility] Urine leukocyte esterase det ection by dipstickOrdered By: Sumanth Coyne on 09-24-2024 Leukocyte esterase Test strip Ql (U) Negative Negative [facility] Urine pHOrdered By: Sumanth lambert on 09-24-2024 pH (U) 5.0 [pH] 5.0 - 8.0 [facility] Urine sediment bacteria coun t by microscopy (number/high power field)Ordered By: Sumanth Coyne on 09-24-2024 Bacteria LM.HPF (Urine sed) [#/Area] 2 /[HPF] None Seen [facility] Urine specific gravity measu rementOrdered By: Sumanth Coyne on 09-24-2024 Specific gravity (U) [Rel density] 1.025 1.002-1.030 [facility] Urine urobilinogen measureme ntOrdered By: Sumanth Coyne on 09-24-2024 Urobilinogen Ql (U) Normal mg/dl Normal [facility] Urobilinogen Ql (U)Ordered B y: Sumanth Coyne on 09-24-2024 Urine Urobilinogen Normal mg/dl Normal [facility] White blood cell (WBC) count Ordered By: ED PROVIDER on 09-24-2024 WBC (Bld) [#/Vol] 7.7 10*3/uL 4.4-11.0 [facility] White blood cell countOrdere d By: Sumanth Coyne on 09-24-2024 Urine WBC 0-5 SEEN /hpf 0-5 [facility] White blood cell count 0-5 SEEN /hpf 0-5 [facility] Abdomen/Pelvis without Conto n 09-04-2024 Abdomen/Pelvis without Cont Normal [facility] Absolute lymphocyte countOrd ered By: Eulogio Acuña on 09-04-2024 Lymphocytes Auto (Unsp spec) [#/Vol] 3.11 10*3/uL 0.83-4.51 [facility] Absolute neutrophil countOrd ered By: Eulogio Acuña on 09-04-2024 Neutrophils (Bld) [#/Vol] 3.0 10*3/uL 2.0-7.7 [facility] Anion gap in Serum or Plasma Ordered By: Eulogio Acuña on 09-04-2024 Anion gap [Moles/Vol] 10 mmol/L 5-15 [facility] Automated lymphocyte count a s percentage of total leukocytesOrdered By: Eulogio Acuña on 09-04-2024 Lymphocytes/100 WBC Auto (Unsp spec) 46.3 % High 19-41 [facility] BUN/creatinine ratioOrdered By: Eulogio Acuña on 09-04-2024 Urea nitrogen/Creatinine [Mass ratio] 16.2 mg/mg 10-20 [facility] Basophil percentageOrdered B y: Eulogio Acuña on 09-04-2024 Basophils/100 WBC (Bld) 0.4 % 0-1 [facility] Bilirubin Test strip Ql (U)O rdered By: Eulogio Acuña on 09-04-2024 Bilirubin Ql (U) Negative Negative [facility] Bilirubin, totalOrdered By: Eulogio Acuña on 09-04-2024 Bilirubin [Mass/Vol] 0.26 mg/dL 0.00-1.30 [facility] CBC W/Diff, Automatedon Absolute Lymph 3.11 X10 3/uL Normal 0.83-4.51 [facility] Comment on above: Performed By: #### L 100.0100, L501.2450, L500.4050 ####[facility] [address] [place], [place], [id number] Absolute Neut 3.0 X10 3/uL Normal 2.0-7.7 [facility] Comment on above: Performed By: #### L 100.0100, L501.2450, L500.4050 ####[facility] [address] [place], [address] Basophils/100 WBC (Bld) 0.4 % Normal 0-1 [facility] Comment on above: Performed By: #### L 100.0100, L501.2450, L500.4050 ####[facility] [address] [place], [address] Eosinophils/100 WBC (Bld) 3.3 % Normal 0-5 [facility] Comment on above: Performed By: #### L 100.0100, L501.2450, L500.4050 ####[facility] [address] [place], [address] Erythrocyte distribution width (RBC) [Ratio] 12.5 % Normal 11.6-14.6 [facility] Comment on above: Performed By: #### L 100.0100, L501.2450, L500.4050 ####[facility] [address] [place], [address] Hematocrit (Bld) [Volume fraction] 37.3 % Normal 37-47 [facility] Comment on above: Performed By: #### L 100.0100, L501.2450, L500.4050 ####[facility] [address] [place], [address] Hemoglobin (Bld) [Mass/Vol] 12.8 g/dL Normal 12.0-15.0 [facility] Comment on above: Performed By: #### L 100.0100, L501.2450, L500.4050 ####[facility] [address] [place], [address] IG% 0.100 Normal 0.0-0.9 [facility] Comment on above: Result Comment: IG% - Immature Granulocytes (promyelocytes, myelocytes andmetamyelocytes) > 1% indicates that a LEFT SHIFT is Present. Performed By: #### L 100.0100, L501.2450, L500.4050 ####[facility] [address] [place], [address] Lymphocytes/100 WBC (Bld) 46.3 % High 19-41 [facility] Comment on above: Performed By: #### L 100.0100, L501.2450, L500.4050 ####[facility] [address] [place], [address] MCH (RBC) [Entitic mass] 31.2 pg Normal 27.0-32.0 [facility] Comment on above: Performed By: #### L 100.0100, L501.2450, L500.4050 ####[facility] [address] [place], [address] MCHC (RBC) [Mass/Vol] 34.3 g/dL Normal 32-36 [facility] Comment on above: Performed By: #### L 100.0100, L501.2450, L500.4050 ####[facility] [address] [place], [address] MCV (RBC) [Entitic vol] 91.0 fL Normal 81-99 [facility] Comment on above: Performed By: #### L 100.0100, L501.2450, L500.4050 ####[facility] [address] [place], [address] Monocytes/100 WBC (Bld) 5.8 % Normal 0-10 [facility] Comment on above: Performed By: #### L 100.0100, L501.2450, L500.4050 ####[facility] [address] [place], [address] Neutrophils/100 WBC (Bld) 44.1 % Low 47-70 [facility] Comment on above: Performed By: #### L 100.0100, L501.2450, L500.4050 ####[facility] [address] [place], [address] Nucleated RBC (Bld) [#/Vol] 0 10*3/uL Normal 0-5 [facility] Comment on above: Performed By: #### L 100.0100, L501.2450, L500.4050 ####[facility] [address] [place], [address] Platelet mean volume (Bld) [Entitic vol] 8.6 fL Normal 6.2-12.0 [facility] Comment on above: Performed By: #### L 100.0100, L501.2450, L500.4050 ####[facility] [address] [place], [address] Platelets (Bld) [#/Vol] 324 10*3/uL Normal 150-450 [facility] Comment on above: Performed By: #### L 100.0100, L501.2450, L500.4050 ####[facility] [address] [place], [address] RBC (Bld) [#/Vol] 4.10 10*6/uL Low 4.2-5.4 [facility] Comment on above: Performed By: #### L 100.0100, L501.2450, L500.4050 ####[facility] [address] [place], [address] RDW SD 41.1 fl Normal 35.1-43.9 [facility] Comment on above: Performed By: #### L 100.0100, L501.2450, L500.4050 ####[facility] [address] [place], [address] WBC (Bld) [#/Vol] 6.7 10*3/uL Normal 4.4-11.0 [facility] Comment on above: Performed By: #### L 100.0100, L501.2450, L500.4050 ####[facility] [address] [place], [address] Carbon dioxide, total [Moles /volume] in Central venous bloodOrdered By: Eulogio Acuña on 09-04-2024 CO2 [Moles/Vol] 23.0 mmol/L 21.0-32.0 [facility] Chest 1 View (Portable)on Chest 1 View (Portable) Normal [facility] Chloride assayOrdered By: Scott Acuña on 09-04-2024 Chloride [Moles/Vol] 106 mmol/L 98-108 [facility] Comprehensive Metabolic Prof ilon 09-04-2024 Albumin [Mass/Vol] 4.2 g/dL Normal 3.5-5.0 [facility] Comment on above: Performed By: #### L 100.0100, L501.2450, L500.4050 ####[facility] [address] [place], [address] Albumin/Globulin [Mass ratio] 1.4 {ratio} Normal 0.9-2.4 [facility] Comment on above: Performed By: #### L 100.0100, L501.2450, L500.4050 ####[facility] [address] [place], [address] ALK PHOS 86 U/L Normal 35-104 [facility] Comment on above: Performed By: #### L 100.0100, L501.2450, L500.4050 ####[facility] [address] [place], [address] ALT [Catalytic activity/Vol] 47 U/L High <=34 [facility] Comment on above: Performed By: #### L 100.0100, L501.2450, L500.4050 ####[facility] [address] [place], [address] AST [Catalytic activity/Vol] 33 U/L High <=31 [facility] Comment on above: Performed By: #### L 100.0100, L501.2450, L500.4050 ####[facility] [address] [place], [address] Bilirubin [Mass/Vol] 0.26 mg/dL Normal 0.00-1.30 [facility] Comment on above: Performed By: #### L 100.0100, L501.2450, L500.4050 ####[facility] [address] [place], [address] BUN/CRE 16.2 RATIO Normal 10-20 [facility] Comment on above: Performed By: #### L 100.0100, L501.2450, L500.4050 ####[facility] [address] [place], [address] Calcium [Mass/Vol] 9.2 mg/dL Normal 7.6-11.0 [facility] Comment on above: Performed By: #### L 100.0100, L501.2450, L500.4050 ####[facility] [address] [place], [address] Chloride [Moles/Vol] 106 mmol/L Normal 98-108 [facility] Comment on above: Performed By: #### L 100.0100, L501.2450, L500.4050 ####[facility] [address] [place], [address] CO2 [Moles/Vol] 23.0 mmol/L Normal 21.0-32.0 [facility] Comment on above: Performed By: #### L 100.0100, L501.2450, L500.4050 ####[facility] [address] [place], [address] Creatinine [Mass/Vol] 1.00 mg/dL Normal 0.70-1.20 [facility] Comment on above: Performed By: #### L 100.0100, L501.2450, L500.4050 ####[facility] [address] [place], [address] ECRCL 75.99 ml/min Normal 50-250 [facility] Comment on above: Performed By: #### L 100.0100, L501.2450, L500.4050 ####[facility] [address] [place], [address] GAP 10 Normal 5-15 [facility] Comment on above: Performed By: #### L 100.0100, L501.2450, L500.4050 ####[facility] [address] [place], [address] GFR/1.73 sq M.predicted among non-blacks MDRD (S/P/Bld) [Vol rate/Area] 70 mL/min/{1.73_m2} Normal >60 [facility] Comment on above: Result Comment: mL/m in/1.73m2 CKD-EPI Creatinine Equation (2020) Performed By: #### L 100.0100, L501.2450, L500.4050 ####[facility] [address] [place], [address] Globulin (S) [Mass/Vol] 3.0 g/dL Normal 2.2-4.2 [facility] Comment on above: Performed By: #### L 100.0100, L501.2450, L500.4050 ####[facility] [address] [place], [address] Glucose [Mass/Vol] 92 mg/dL Normal 70-99 [facility] Comment on above: Performed By: #### L 100.0100, L501.2450, L500.4050 ####[facility] [address] [place], [address] Potassium [Moles/Vol] 4.1 mmol/L Normal 3.3-5.1 [facility] Comment on above: Performed By: #### L 100.0100, L501.2450, L500.4050 ####[facility] [address] [place], [address] Sodium [Moles/Vol] 139 mmol/L Normal 133-145 [facility] Comment on above: Performed By: #### L 100.0100, L501.2450, L500.4050 ####[facility] [address] [place], [address] T PROT 7.3 g/dL Normal 5.9-8.4 [facility] Comment on above: Performed By: #### L 100.0100, L501.2450, L500.4050 ####[facility] [address] [place], [address] Urea nitrogen [Mass/Vol] 16 mg/dL Normal 4-19 [facility] Comment on above: Performed By: #### L 100.0100, L501.2450, L500.4050 ####[facility] [address] [place], [address] Emergency Department Summary on 09-04-2024 Emergency Department Summary Normal [facility] Eosinophil percentageOrdered By: Eulogio Acuña on 09-04-2024 Eosinophils/100 WBC (Bld) 3.3 % 0-5 [facility] Epithelial cells.squamous LM Ql (Urine sed)Ordered By: Eulogio Acuña on 09-04-2024 Epithelial cells.squamous LM.HPF (Urine sed) [#/Area] 5 /[HPF] 5-10 [facility] Erythrocyte distribution wid th ratioOrdered By: Eulogio Acuña on 09-04-2024 Erythrocyte distribution width (RBC) [Ratio] 12.5 % 11.6-14.6 [facility] Erythrocyte distribution wid th standard deviationOrdered By: Eulogio Acuña on 09-04-2024 Erythrocyte distribution width (RBC) [Entitic vol] 41.1 fL 35.1-43.9 [facility] Erythrocyte distribution width (RBC) [Ratio] 41.1 fl 35.1-43.9 [facility] Estimation of creatinine jenny aranceOrdered By: Eulogio Acuña on 09-04-2024 Estimated Creatinine Clearance Calc 75.99 ml/min 50-250 [facility] GFR/1.73 sq M.predicted nel g non-blacks MDRD (S/P/Bld) [Vol rate/Area]Ordered By: Eulogio Acuña on 09-04-2024 Estimated GFR (MDRD) Non-Af Amer 70 >60 [facility] Comment on above: mL/min/1.73m2 CKD-EP I Creatinine Equation (2020) Glomerular filtration rate ( GFR) estimation/1.73 sq m using serum, plasma, or whole bOrdered By: Eulogio Acuña on 09-04-2024 GFR/1.73 sq M.predicted among non-blacks MDRD (S/P/Bld) [Vol rate/Area] 70 mL/min/{1.73_m2} >60 [facility] Comment on above: mL/min/1.73m2 CKD-EP I Creatinine Equation (2020) Glucose Ql (U)Ordered By: Scott Acuña on 09-04-2024 Urine Glucose (UA) Normal mg/dl Normal [facility] Hematocrit Auto (Bld) [Volum e fraction]Ordered By: Eulogio Acuña on 09-04-2024 Hematocrit (Bld) [Volume fraction] 37.3 % 37-47 [facility] Hemoglobin measurementOrdere d By: Eulogio Acuña on 09-04-2024 Hemoglobin (Bld) [Mass/Vol] 12.8 g/dL 12.0-15.0 [facility] Immature granulocytes/100 WB C Auto (Bld)Ordered By: Eulogio Acuña on 09-04-2024 Immature granulocytes/100 WBC (Bld) 0.100 % 0.0-0.9 [facility] Comment on above: IG% - Immature Granu locytes (promyelocytes, myelocytes and metamyelocytes) > 1% indicates that a LEFT SHIFT is Present. Influenza virus A and B and SARS-CoV-2 (COVID-19) and Respiratory syncytial virus RNAOrdered By: Eulogio Acuña on 09-04-2024 SARS-CoV-2 (COVID-19) RNA ANDRY+probe Ql (Unsp spec) [facility] Ketones Test strip Ql (U)Ord ered By: Eulogio Acuña on 09-04-2024 Ketones Ql (U) Negative Negative [facility] Laboratory - Chemistry and C hemistry - challengeOrdered By: Eulogio Acuña on 09-04-2024 AST [Catalytic activity/Vol] 33 U/L High <32 [facility] Lipaseon 09-04-2024 Lipase [Catalytic activity/Vol] 51 U/L Normal 13-75 [facility] Comment on above: Result Comment: Arcadio de la paz note:LIPASE revised reference range effective 22.New Lipase methodology. Expected to produce lower valuesthan the previous assay method.NEW Reference Range: 13 - 75 U/L Performed By: #### L 100.0100, L501.2450, L500.4050 ####[facility] [address] [place], [place], [id number] Lipase measurementOrdered By : Eulogio Acuña on 09-04-2024 Lipase [Catalytic activity/Vol] 51 U/L 13-75 [facility] Comment on above: Please note:LIPASE r evised reference range effective 22. New Lipase methodology. Expected to produce lower values than the previous assay method. NEW Reference Range: 13 - 75 U/L Lymphocytes Auto (Unsp spec) [#/Vol]Ordered By: Eulogio Acuña on 09-04-2024 Lymphocytes (Bld) [#/Vol] 3.11 10*3/uL 0.83-4.51 [facility] Lymphocytes/100 WBC Auto (Un sp spec)Ordered By: Eulogio Acuña on 09-04-2024 Lymphocytes/100 WBC (Bld) 46.3 % High 19-41 [facility] M100.678on 09-04-2024 M100.678 Pending SARS-CoV-2 (COVID 19) Negative INFLUENZA A Negative INFLUENZA B Negative RSV PCR Negative Normal [facility] Comment on above: Performed By: #### L 400.0001, M100.678 ####[facility] [address] [place], [address] MCV (mean corpuscular volume ) determinationOrdered By: Eulogio Acuña on 09-04-2024 MCV (RBC) [Entitic vol] 91.0 fL 81-99 [facility] Mean corpuscular hemoglobin (MCH) determinationOrdered By: Eulogio Acuña on 09-04-2024 MCH (RBC) [Entitic mass] 31.2 pg 27.0-32.0 [facility] Mean corpuscular hemoglobin concentration (MCHC) determinationOrdered By: Eulogio Acuña on 09-04-2024 MCHC (RBC) [Mass/Vol] 34.3 g/dL 32-36 [facility] Mean platelet volume determi nationOrdered By: Eulogio Acuña on 09-04-2024 Platelet mean volume (Bld) [Entitic vol] 8.6 fL 6.2-12.0 [facility] Microscopic analysis of urin e for red blood cells (RBC)Ordered By: Eulogio Acuña on 09-04-2024 Microscopic analysis of urine for red blood cells (RBC) 0-5 SEEN /hpf 0-5 [facility] Urine RBC 0-5 SEEN /hpf 0-5 [facility] Monocyte percentageOrdered B y: Eulogio Acuña on 09-04-2024 Monocytes/100 WBC (Bld) 5.8 % 0-10 [facility] Mucus LM Ql (Urine sed)Order ed By: Eulogio Acuña on 09-04-2024 Mucus Ql (Urine sed) 0 SEEN /hpf [facility] Neutrophil percentageOrdered By: Eulogio Acuña on 09-04-2024 Neutrophils/100 WBC (Bld) 44.1 % Low 47-70 [facility] Nitrite Test strip Ql (U)Ord ered By: Eulogio Acuña on 09-04-2024 Nitrite Ql (U) Negative Negative [facility] Nucleated red blood cell per centageOrdered By: Eulogio Acuña on 09-04-2024 Nucleated RBC/100 WBC (Bld) [Ratio] 0 % 0-5 [facility] Platelet countOrdered By: Scott Acuña on 09-04-2024 Platelets (Bld) [#/Vol] 324 10*3/uL 150-450 [facility] Potassium (Unsp spec) [Mass/ Vol]Ordered By: Eulogio Acuña on 09-04-2024 Potassium [Moles/Vol] 4.1 mmol/L 3.3-5.1 [facility] Potassium measurement (mass/ volume)Ordered By: Eulogio Acuña on 09-04-2024 Potassium (Unsp spec) [Mass/Vol] 4.1 mmol/L 3.3-5.1 [facility] Protein Test strip Ql (U)Ord ered By: Eulogio Acuña on 09-04-2024 Protein Ql (U) 15 mg/dl High Negative [facility] RBC Auto (Bld) [#/Vol]Ordere d By: Eulogio Acuña on 09-04-2024 RBC (Bld) [#/Vol] 4.10 10*6/uL Low 4.2-5.4 [facility] Serum creatinine measurement (mass/volume)Ordered By: Eulogio Acuña on 09-04-2024 Creatinine [Mass/Vol] 1.00 mg/dL 0.70-1.20 [facility] Serum globulin measurementOr dered By: Eulogio Acuña on 09-04-2024 Globulin (S) [Mass/Vol] 3.0 g/dL 2.2-4.2 [facility] Serum glucose measurement (m ass/volume)Ordered By: Eulogio Acuña on 09-04-2024 Glucose [Mass/Vol] 92 mg/dL 70-99 [facility] Serum or plasma alanine irwin otransferase (ALT) measurementOrdered By: Eulogio Acuña on 09-04-2024 ALT [Catalytic activity/Vol] 47 U/L High <35 [facility] Serum or plasma albumin marianna urement (mass/volume)Ordered By: Eulogio Acuña on 09-04-2024 Albumin [Mass/Vol] 4.2 g/dL 3.5-5.0 [facility] Serum or plasma albumin/glob ulin mass ratioOrdered By: Eulogio Acuña on 09-04-2024 Albumin/Globulin [Mass ratio] 1.4 {ratio} 0.9-2.4 [facility] Serum or plasma alkaline caity sphatase measurementOrdered By: Eulogio Acuña on 09-04-2024 ALP [Catalytic activity/Vol] 86 U/L 35-104 [facility] Serum or plasma calcium marianna urement (mass/volume)Ordered By: Eulogio Acuña on 09-04-2024 Calcium [Mass/Vol] 9.2 mg/dL 7.6-11.0 [facility] Serum or plasma urea nitroge n measurement (mass/volume)Ordered By: Eulogio Acuña on 09-04-2024 Urea nitrogen [Mass/Vol] 16 mg/dL 4-19 [facility] Sodium levelOrdered By: Eulogio Acuña on 09-04-2024 Sodium [Moles/Vol] 139 mmol/L 133-145 [facility] Squamous epithelial cells de tection in urine sediment by light microscopyOrdered By: Eulogio Acuña on 09-04-2024 Epithelial cells.squamous LM Ql (Urine sed) 5-10 SEEN /hpf 5-10 [facility] Total proteinOrdered By: Reanna Acuña on 09-04-2024 Protein [Mass/Vol] 7.3 g/dL 5.9-8.4 [facility] Urinalysis, Completeon 09-04 BACTERIA 1+ /hpf Normal None Seen [facility] Comment on above: Order Comment: CLEAN CATCH Performed By: #### L 400.0001, ####[facility] [address] [place], [address] EPI,SQUAMOUS 5-10 SEEN Normal 5-10 [facility] Comment on above: Order Comment: CLEAN CATCH Performed By: #### L 400.0001, 8 ####[facility] [address] [place], [address] RBC 0-5 SEEN Normal 0-5 [facility] Comment on above: Order Comment: CLEAN CATCH Performed By: #### L 400.0001, M1678 ####[facility] [address] [place], [address] WBC 0-5 SEEN Normal 0-5 [facility] Comment on above: Order Comment: CLEAN CATCH Performed By: #### L 400.0001, M100.678 ####[facility] [address] [place], [address] Mucus Ql (Urine sed) 0 SEEN Normal [facility] Comment on above: Order Comment: CLEAN CATCH Performed By: #### L 400.0001, M100.678 ####[facility] [address] [place], [address] Urine blood detectionOrdered By: Eulogio Acuña on 09-04-2024 Urine Occult Blood Negative Negative [facility] Urine clarityOrdered By: Reanna Acuña on 09-04-2024 Clarity (U) Clear Clear [facility] Urine color determinationOrd ered By: Eulogio Acuña on 09-04-2024 Color (U) Yellow Yellow [facility] Urine glucose detectionOrder ed By: Eulogio Acuña on 09-04-2024 Glucose Ql (U) Normal mg/dl Normal [facility] Urine leukocyte esterase det ection by dipstickOrdered By: Eulogio Acuña on 09-04-2024 Leukocyte esterase Test strip Ql (U) Negative Negative [facility] Urine pHOrdered By: Eulogio dennison on 09-04-2024 pH (U) 6.0 [pH] 5.0 - 8.0 [facility] Urine sediment bacteria coun t by microscopy (number/high power field)Ordered By: Eulogio Acuña on 09-04-2024 Bacteria LM.HPF (Urine sed) [#/Area] 1 /[HPF] None Seen [facility] Urine specific gravity measu rementOrdered By: Eulogio Acuña on 09-04-2024 Specific gravity (U) [Rel density] 1.020 1.002-1.030 [facility] Urine urobilinogen measureme ntOrdered By: Eulogio Acuña on 09-04-2024 Urobilinogen Ql (U) Normal mg/dl Normal [facility] Urobilinogen Ql (U)Ordered B y: Eulogio Acuña on 09-04-2024 Urine Urobilinogen Normal mg/dl Normal [facility] White blood cell (WBC) count Ordered By: Eulogio Acuña on 09-04-2024 WBC (Bld) [#/Vol] 6.7 10*3/uL 4.4-11.0 [facility] White blood cell countOrdere d By: Eulogio Acuña on 09-04-2024 Urine WBC 0-5 SEEN /hpf 0-5 [facility] White blood cell count 0-5 SEEN /hpf 0-5 [facility] Lumbar Spine 2 or 3 Viewson 08-29-2024 Lumbar Spine 2 or 3 Views Normal [facility] Emergency Department Summary on 08-11-2024 Emergency Department Summary Normal [facility] Pelvic w/ Transvaginalon Pelvic w/ Transvaginal Normal [facility] Ankle min 3 Viewson 08-04-19 Ankle min 3 Views Normal [facility] Abdomen/Pelvis without Conto n 07-30-2024 Abdomen/Pelvis without Cont Normal [facility] Absolute lymphocyte countOrd ered By: Sumanth [place] on 07-30-2024 Lymphocytes Auto (Unsp spec) [#/Vol] 2.92 10*3/uL 0.83-4.51 [facility] Absolute neutrophil countOrd ered By: Sumanth [place]ne on 07-30-2024 Neutrophils (Bld) [#/Vol] 3.5 10*3/uL 2.0-7.7 [facility] Albumin to globulin ratioOrd ered By: Sumanth [place]ne on 07-30-2024 Albumin/Globulin [Mass ratio] 1.1 {ratio} 0.9-2.4 [facility] Automated lymphocyte count a s percentage of total leukocytesOrdered By: Sumanth [place]ne on 07-30-2024 Lymphocytes/100 WBC Auto (Unsp spec) 40.4 % 19-41 [facility] Basophil percentageOrdered B y: Sumanth [place]ne on 07-30-2024 Basophils/100 WBC (Bld) 0.3 % 0-1 [facility] Beta HCG ( test) Ql Ordered By: Sumanth [place]ne on 07-30-2024 Serum Test, Qualitative Negative [facility] Bilirubin Test strip Ql (U)O rdered By: Sumanth [place]ne on 07-30-2024 Bilirubin Ql (U) Negative Negative [facility] Bilirubin, totalOrdered By: Sumanth [place]ne on 07-30-2024 Bilirubin [Mass/Vol] 0.40 mg/dL 0.20-1.00 [facility] Comment on above: For patients on eltr ombopag therapy, use of Dimension Lawrence TBIL is not recommended. Blood urea nitrogen (BUN)/cr eatinine ratioOrdered By: Sumanth [place]ne on 07-30-2024 Urea nitrogen/Creatinine [Mass ratio] 22.1 mg/mg High 10-20 [facility] CBC W/Diff, Automatedon 07-03 Absolute Lymph 2.92 X10 3/uL Normal 0.83-4.51 [facility] Comment on above: Performed By: #### L 500.4050, L700.6800, L100.0100 ####[facility] [address] [place], [address] Absolute Neut 3.5 X10 3/uL Normal 2.0-7.7 [facility] Comment on above: Performed By: #### L 500.4050, L700.6800, L100.0100 ####[facility] [address] [place], [address] Basophils/100 WBC (Bld) 0.3 % Normal 0-1 [facility] Comment on above: Performed By: #### L 500.4050, L700.6800, L100.0100 ####[facility] [address] [place], [address] Eosinophils/100 WBC (Bld) 3.0 % Normal 0-5 [facility] Comment on above: Performed By: #### L 500.4050, L700.6800, L100.0100 ####[facility] [address] [place], [address] Erythrocyte distribution width (RBC) [Ratio] 12.6 % Normal 11.6-14.6 [facility] Comment on above: Performed By: #### L 500.4050, L700.6800, L100.0100 ####[facility] [address] [place], [address] Hematocrit (Bld) [Volume fraction] 35.2 % Low 37-47 [facility] Comment on above: Performed By: #### L 500.4050, L700.6800, L100.0100 ####[facility] [address] [place], [address] Hemoglobin (Bld) [Mass/Vol] 12.0 g/dL Normal 12.0-15.0 [facility] Comment on above: Performed By: #### L 500.4050, L700.6800, L100.0100 ####[facility] [address] [place], [address] IG% 0.300 Normal 0.0-0.9 [facility] Comment on above: Result Comment: IG% - Immature Granulocytes (promyelocytes, myelocytes andmetamyelocytes) > 1% indicates that a LEFT SHIFT is Present. Performed By: #### L 500.4050, L700.6800, L100.0100 ####[facility] [address] [place], [address] Lymphocytes/100 WBC (Bld) 40.4 % Normal 19-41 [facility] Comment on above: Performed By: #### L 500.4050, L700.6800, L100.0100 ####[facility] [address] [place], [address] MCH (RBC) [Entitic mass] 30.8 pg Normal 27.0-32.0 [facility] Comment on above: Performed By: #### L 500.4050, L700.6800, L100.0100 ####[facility] [address] [place], [address] MCHC (RBC) [Mass/Vol] 34.1 g/dL Normal 32-36 [facility] Comment on above: Performed By: #### L 500.4050, L700.6800, L100.0100 ####[facility] [address] [place], [address] MCV (RBC) [Entitic vol] 90.5 fL Normal 81-99 [facility] Comment on above: Performed By: #### L 500.4050, L700.6800, L100.0100 ####[facility] [address] [place], [address] Monocytes/100 WBC (Bld) 7.1 % Normal 0-10 [facility] Comment on above: Performed By: #### L 500.4050, L700.6800, L100.0100 ####[facility] [address] [place], [address] Neutrophils/100 WBC (Bld) 48.9 % Normal 47-70 [facility] Comment on above: Performed By: #### L 500.4050, L700.6800, L100.0100 ####[facility] [address] [place], [address] Nucleated RBC (Bld) [#/Vol] 0 10*3/uL Normal 0-5 [facility] Comment on above: Performed By: #### L 500.4050, L700.6800, L100.0100 ####[facility] [address] [place], [address] Platelet mean volume (Bld) [Entitic vol] 8.8 fL Normal 6.2-12.0 [facility] Comment on above: Performed By: #### L 500.4050, L700.6800, L100.0100 ####[facility] [address] [place], [address] Platelets (Bld) [#/Vol] 307 10*3/uL Normal 150-450 [facility] Comment on above: Performed By: #### L 500.4050, L700.6800, L100.0100 ####[facility] [address] [place], [address] RBC (Bld) [#/Vol] 3.89 10*6/uL Low 4.2-5.4 [facility] Comment on above: Performed By: #### L 500.4050, L700.6800, L100.0100 ####[facility] [address] [place], [address] RDW SD 41.0 fl Normal 35.1-43.9 [facility] Comment on above: Performed By: #### L 500.4050, L700.6800, L100.0100 ####[facility] [address] [place], [address] WBC (Bld) [#/Vol] 7.2 10*3/uL Normal 4.4-11.0 [facility] Comment on above: Performed By: #### L 500.4050, L700.6800, L100.0100 ####[facility] [address] [place], [address] Carbon dioxide measurementOr dered By: Sumanth Coyne on 07-30-2024 CO2 [Moles/Vol] 28.0 mmol/L 21.0-32.0 [facility] Chloride measurementOrdered By: Sumanth Coyne on 07-30-2024 Chloride [Moles/Vol] 106 mmol/L 98-107 [facility] Comprehensive Metabolic Prof ilon 07-30-2024 Albumin [Mass/Vol] 3.9 g/dL Normal 3.2-5.0 [facility] Comment on above: Performed By: #### L 500.4050, L700.6800, L100.0100 ####[facility] [address] [place], [address] Albumin/Globulin [Mass ratio] 1.1 {ratio} Normal 0.9-2.4 [facility] Comment on above: Performed By: #### L 500.4050, L700.6800, L100.0100 ####[facility] [address] [place], [address] ALK P 79 U/L Normal 45-117 [facility] Comment on above: Performed By: #### L 500.4050, L700.6800, L100.0100 ####[facility] [address] [place], [address] ALT [Catalytic activity/Vol] 36 U/L Normal 13-56 [facility] Comment on above: Performed By: #### L 500.4050, L700.6800, L100.0100 ####[facility] [address] [place], [address] AST [Catalytic activity/Vol] 27 U/L Normal 15-37 [facility] Comment on above: Performed By: #### L 500.4050, L700.6800, L100.0100 ####[facility] [address] [place], [address] Bilirubin [Mass/Vol] 0.40 mg/dL Normal 0.20-1.00 [facility] Comment on above: Result Comment: For patients on eltrombopag therapy, use of Dimension Lawrence TBIL is not recommended. Performed By: #### L 500.4050, L700.6800, L100.0100 ####[facility] [address] [place], [address] BUN/CRE 22.1 RATIO High 10-20 [facility] Comment on above: Performed By: #### L 500.4050, L700.6800, L100.0100 ####[facility] [address] [place], [address] CA,Total 9.4 mg/dL Normal 8.5-10.1 [facility] Comment on above: Performed By: #### L 500.4050, L700.6800, L100.0100 ####[facility] [address] [place], [address] Chloride [Moles/Vol] 106 mmol/L Normal 98-107 [facility] Comment on above: Performed By: #### L 500.4050, L700.6800, L100.0100 ####[facility] [address] [place], [address] CO2 [Moles/Vol] 28.0 mmol/L Normal 21.0-32.0 [facility] Comment on above: Performed By: #### L 500.4050, L700.6800, L100.0100 ####[facility] [address] [place], [address] Creatinine [Mass/Vol] 1.04 mg/dL High 0.55-1.02 [facility] Comment on above: Result Comment: The validity of the calculated GFR GFRAA in patients over70 years has not been determined. Clinical correlation isessential. Performed By: #### L 500.4050, L700.6800, L100.0100 ####[facility] [address] [place], [address] ECRCL 68.28 ml/min Normal [facility] Comment on above: Performed By: #### L 500.4050, L700.6800, L100.0100 ####[facility] [address] [place], [address] EST GFR - AA 73 mL/min Normal >60 [facility] Comment on above: Result Comment: Afri can Cymraes GFR Calc Performed By: #### L 500.4050, L700.6800, L100.0100 ####[facility] [address] [place], [address] GAP 5 Normal 5-15 [facility] Comment on above: Performed By: #### L 500.4050, L700.6800, L100.0100 ####[facility] [address] [place], [address] GFR/1.73 sq M.predicted among non-blacks MDRD (S/P/Bld) [Vol rate/Area] 60 mL/min/{1.73_m2} Normal >60 [facility] Comment on above: Result Comment: Non- GFR Calc Performed By: #### L 500.4050, L700.6800, L100.0100 ####[facility] [address] [place], [address] Globulin (S) [Mass/Vol] 3.7 g/dL Normal 2.2-4.2 [facility] Comment on above: Performed By: #### L 500.4050, L700.6800, L100.0100 ####[facility] [address] [place], [address] Glucose [Mass/Vol] 85 mg/dL Normal 74-106 [facility] Comment on above: Performed By: #### L 500.4050, L700.6800, L100.0100 ####[facility] [address] [place], [address] Potassium [Moles/Vol] 4.1 mmol/L Normal 3.5-5.1 [facility] Comment on above: Performed By: #### L 500.4050, L700.6800, L100.0100 ####[facility] [address] [place], [address] Sodium [Moles/Vol] 139 mmol/L Normal 136-145 [facility] Comment on above: Performed By: #### L 500.4050, L700.6800, L100.0100 ####[facility] [address] [place], [address] T PROT 7.6 g/dL Normal 6.4-8.2 [facility] Comment on above: Performed By: #### L 500.4050, L700.6800, L100.0100 ####[facility] [address] [place], [address] Urea nitrogen [Mass/Vol] 23 mg/dL High 7-18 [facility] Comment on above: Performed By: #### L 500.4050, L700.6800, L100.0100 ####[facility] [address] [place], [place], [address] Emergency Department Summary on 07-30-2024 Emergency Department Summary Normal [facility] Eosinophil percentageOrdered By: Sumanth Coyne on 07-30-2024 Eosinophils/100 WBC (Bld) 3.0 % 0-5 [facility] Epithelial cells.squamous LM Ql (Urine sed)Ordered By: Sumanth Coyne on 07-30-2024 Epithelial cells.squamous LM.HPF (Urine sed) [#/Area] 0 /[HPF] 5-10 [facility] Erythrocyte distribution wid th ratioOrdered By: Sumanth Coyne on 07-30-2024 Erythrocyte distribution width (RBC) [Ratio] 12.6 % 11.6-14.6 [facility] Erythrocyte distribution wid th standard deviationOrdered By: Sumanth Coyne on 07-30-2024 Erythrocyte distribution width (RBC) [Entitic vol] 41.0 fL 35.1-43.9 [facility] Erythrocyte distribution width (RBC) [Ratio] 41.0 fl 35.1-43.9 [facility] Estimated glomerular filtrat ion rate (GFR) AmericanOrdered By: Sumanth Coyne on 07-30-2024 Estimated GFR (MDRD) Amer 73 mL/min >60 [facility] Comment on above: GFR Calc Estimation of creatinine jenny aranceOrdered By: Sumanth Coyne on 07-30-2024 Estimated Creatinine Clearance Calc 68.28 ml/min [facility] Glomerular filtration rate ( GFR) estimationOrdered By: Sumanth Coyne on 07-30-2024 Estimated GFR (MDRD) Non-Af Amer 60 mL/min >60 [facility] Comment on above: Non- GFR Calc GFR/1.73 sq M.predicted among non-blacks MDRD (S/P/Bld) [Vol rate/Area] 60 mL/min/{1.73_m2} >60 [facility] Comment on above: Non- GFR Calc Glucose Ql (U)Ordered By: Andre Coyne on 07-30-2024 Urine Glucose (UA) Normal mg/dl Normal [facility] Glucose measurementOrdered B y: Sumanth Coyne on 07-30-2024 Glucose [Mass/Vol] 85 mg/dL 74-106 [facility] Hematocrit Auto (Bld) [Volum e fraction]Ordered By: Sumanth Coyne on 07-30-2024 Hematocrit (Bld) [Volume fraction] 35.2 % Low 37-47 [facility] Hemoglobin measurementOrdere d By: Sumanth Coyne on 07-30-2024 Hemoglobin (Bld) [Mass/Vol] 12.0 g/dL 12.0-15.0 [facility] Immature granulocytes/100 WB C Auto (Bld)Ordered By: Sumanth Coyne on 07-30-2024 Immature granulocytes/100 WBC (Bld) 0.300 % 0.0-0.9 [facility] Comment on above: IG% - Immature Granu locytes (promyelocytes, myelocytes and metamyelocytes) > 1% indicates that a LEFT SHIFT is Present. Ketones Test strip Ql (U)Ord ered By: Sumanth Coyne on 07-30-2024 Ketones Ql (U) Negative Negative [facility] Laboratory - Chemistry and C hemistry - challengeOrdered By: Sumanth Coyne on 07-30-2024 AST [Catalytic activity/Vol] 27 U/L 15-37 [facility] Lymphocytes Auto (Unsp spec) [#/Vol]Ordered By: Sumanth Coyne on 07-30-2024 Lymphocytes (Bld) [#/Vol] 2.92 10*3/uL 0.83-4.51 [facility] Lymphocytes/100 WBC Auto (Un sp spec)Ordered By: Sumatnh Coyne on 07-30-2024 Lymphocytes/100 WBC (Bld) 40.4 % 19-41 [facility] MCV (mean corpuscular volume ) determinationOrdered By: Sumanth Coyne on 07-30-2024 MCV (RBC) [Entitic vol] 90.5 fL 81-99 [facility] Mean corpuscular hemoglobin (MCH) determinationOrdered By: Sumanth Coyne on 07-30-2024 MCH (RBC) [Entitic mass] 30.8 pg 27.0-32.0 [facility] Mean corpuscular hemoglobin concentration (MCHC) determinationOrdered By: Sumanth Coyne on 07-30-2024 MCHC (RBC) [Mass/Vol] 34.1 g/dL 32-36 [facility] Mean platelet volume determi nationOrdered By: Sumanth Coyne on 07-30-2024 Platelet mean volume (Bld) [Entitic vol] 8.8 fL 6.2-12.0 [facility] Microscopic analysis of urin e for red blood cells (RBC)Ordered By: Sumanth Coyne on 07-30-2024 Microscopic analysis of urine for red blood cells (RBC) 0 SEEN /hpf 0-5 [facility] Urine RBC 0 SEEN /hpf 0-5 [facility] Monocyte percentageOrdered B y: Sumanth Coyne on 07-30-2024 Monocytes/100 WBC (Bld) 7.1 % 0-10 [facility] Mucus LM Ql (Urine sed)Order ed By: Sumanth Coyne on 07-30-2024 Mucus Ql (Urine sed) 0 SEEN /hpf [facility] Neutrophil percentageOrdered By: Sumanth Coyne on 07-30-2024 Neutrophils/100 WBC (Bld) 48.9 % 47-70 [facility] Nitrite Test strip Ql (U)Ord ered By: Sumanth Coyne on 07-30-2024 Nitrite Ql (U) Negative Negative [facility] Nucleated red blood cell per centageOrdered By: Sumanth Coyne on 07-30-2024 Nucleated RBC/100 WBC (Bld) [Ratio] 0 % 0-5 [facility] Platelet countOrdered By: Andre Coyne on 07-30-2024 Platelets (Bld) [#/Vol] 307 10*3/uL 150-450 [facility] Potassium measurementOrdered By: Sumanth Coyne on 07-30-2024 Potassium [Moles/Vol] 4.1 mmol/L 3.5-5.1 [facility] ,Serum,hCG Quali.on 07-30-2024 HCG, SERUM QUAL Negative Normal [facility] Comment on above: Performed By: #### L 500.4050, L700.6800, L100.0100 ####[facility] [address] [place], [address] Protein Test strip Ql (U)Ord ered By: Sumanth Coyne on 07-30-2024 Protein Ql (U) 15 mg/dl High Negative [facility] RBC Auto (Bld) [#/Vol]Ordere d By: Sumanth Coyne on 07-30-2024 RBC (Bld) [#/Vol] 3.89 10*6/uL Low 4.2-5.4 [facility] Serum anion gap measurementO rdered By: Sumanth Coyne on 07-30-2024 Anion gap [Moles/Vol] 5 mmol/L 5-15 [facility] Serum beta-hCG test, qualita tiveOrdered By: Sumanth Coyne on 07-30-2024 Beta HCG ( test) Ql Negative [facility] Serum globulin measurementOr dered By: Sumanth Coyne on 07-30-2024 Globulin (S) [Mass/Vol] 3.7 g/dL 2.2-4.2 [facility] Serum or plasma alanine irwin otransferase (ALT) measurementOrdered By: Sumanth Coyne on 07-30-2024 ALT [Catalytic activity/Vol] 36 U/L 13-56 [facility] Serum or plasma albumin marianna urement (mass/volume)Ordered By: Sumanth Coyne on 07-30-2024 Albumin [Mass/Vol] 3.9 g/dL 3.2-5.0 [facility] Serum or plasma alkaline caity sphatase measurementOrdered By: Sumanth Coyne on 07-30-2024 ALP [Catalytic activity/Vol] 79 U/L 45-117 [facility] Serum or plasma calcium marianna urement (mass/volume)Ordered By: Sumanth Coyne on 07-30-2024 Calcium [Mass/Vol] 9.4 mg/dL 8.5-10.1 [facility] Serum or plasma creatinine m easurement (mass/volume)Ordered By: Sumanth Coyne on 07-30-2024 Creatinine [Mass/Vol] 1.04 mg/dL High 0.55-1.02 [facility] Comment on above: The validity of the calculated GFR & GFRAA in patients over 70 years has not been determined. Clinical correlation is essential. Serum or plasma urea nitroge n measurement (mass/volume)Ordered By: Sumanth Coyne on 07-30-2024 Urea nitrogen [Mass/Vol] 23 mg/dL High 7-18 [facility] Sodium levelOrdered By: Sumanth Coyne on 07-30-2024 Sodium [Moles/Vol] 139 mmol/L 136-145 [facility] Squamous epithelial cells de tection in urine sediment by light microscopyOrdered By: Sumanth Coyne on 07-30-2024 Epithelial cells.squamous LM Ql (Urine sed) 0-5 SEEN /hpf 5-10 [facility] Total proteinOrdered By: Sugar Coyne on 07-30-2024 Protein [Mass/Vol] 7.6 g/dL 6.4-8.2 [facility] Urinalysis, Completeon 07-30 BACTERIA 1+ /hpf Normal None Seen [facility] Comment on above: Order Comment: COLLE CTOR TO SPECIFY Performed By: #### L 400.0001 ####[facility] [address] [facility] [place], [place], [id number] EPI,SQUAMOUS 0-5 SEEN Normal 5-10 [facility] Comment on above: Order Comment: COLLE CTOR TO SPECIFY Performed By: #### L 400.0001 ####[facility] [address] [place], [address] WBC 0-5 SEEN Normal 0-5 [facility] Comment on above: Order Comment: COLLE CTOR TO SPECIFY Performed By: #### L 400.0001 ####[facility] [address] [facility] [place], [address] Mucus Ql (Urine sed) 0 SEEN Normal [facility] Comment on above: Order Comment: LIZZIE CTOR TO SPECIFY Performed By: #### L 400.0001 ####[facility] [address] [place], [place], [id number] RBC 0 SEEN Normal 0-5 [facility] Comment on above: Order Comment: LIZZIE CTOR TO SPECIFY Performed By: #### L 400.0001 ####[facility] [address] [place], [place], [id number] Urine blood detectionOrdered By: Sumanth Coyne on 07-30-2024 Urine Occult Blood Negative Negative [facility] Urine clarityOrdered By: Sugar Coyne on 07-30-2024 Clarity (U) Clear Clear [facility] Urine color determinationOrd ered By: Sumanth Coyne on 07-30-2024 Color (U) Yellow Yellow [facility] Urine glucose detectionOrder ed By: Sumanth Coyne on 07-30-2024 Glucose Ql (U) Normal mg/dl Normal [facility] Urine leukocyte esterase det ection by dipstickOrdered By: Sumanth Coyne on 07-30-2024 Leukocyte esterase Test strip Ql (U) 25 /ul High Negative [facility] Urine pHOrdered By: Sumanth lambert on 07-30-2024 pH (U) 5.0 [pH] 5.0 - 8.0 [facility] Urine sediment bacteria coun t by microscopy (number/high power field)Ordered By: Sumanth Coyne on 07-30-2024 Bacteria LM.HPF (Urine sed) [#/Area] 1 /[HPF] None Seen [facility] Urine specific gravity measu rementOrdered By: Sumanth Coyne on 07-30-2024 Specific gravity (U) [Rel density] 1.020 1.002-1.030 [facility] Urine urobilinogen measureme ntOrdered By: Sumanth Coyne on 07-30-2024 Urobilinogen Ql (U) Normal mg/dl Normal [facility] Urobilinogen Ql (U)Ordered B y: Sumanth Coyne on 07-30-2024 Urine Urobilinogen Normal mg/dl Normal [facility] White blood cell (WBC) count Ordered By: Sumanth Coyne on 07-30-2024 WBC (Bld) [#/Vol] 7.2 10*3/uL 4.4-11.0 [facility] White blood cell countOrdere d By: Sumanth Coyne on 07-30-2024 Urine WBC 0-5 SEEN /hpf 0-5 [facility] White blood cell count 0-5 SEEN /hpf 0-5 [facility] CNOVon 07-18-2024 [facility] DAMARI RIOS ([id number]) 1975 F Date Time Provider Department 07/18/24 2:30 PM ARNULFO SANCHEZ [facility] During your visit today, we recorded the following information about you: Temperature Pulse Respiration Blood pressure 97.6 degrees 63/minute 18/minute 139/90 Weight 85.7 kg Arnulfo Sanchez APRN.MECHANICAL INSPECTOR 07/18/2024 2:44 PM Signed CC: Patient presents with: Cough: Congestion, R ear pain, PACHECO, ST x1 week HPI: Damarijojo Rios is a 48 year old female [...] Mother Breast (more content not included)... Normal [facility] Abdomen Single Viewon 2024 Abdomen Single View Normal [facility] Urine Cultureon 06-30-2024 URC Below infection leve l. Mixed Gram Positive Organisms Bristol Count 1000-10,000 MIXC Mixed contaminants. Submit a new specimen if indicated. Normal [facility] Comment on above: Performed By: #### M 100.2200 ####[facility] [address] [place], [address] Absolute neutrophil countOrd ered By: Anyi Disla on 06-28-2024 Neutrophils (Bld) [#/Vol] 2.8 10*3/uL 2.0-7.7 [facility] Basic Metabolic Profile (BMP )on 06-28-2024 BUN/CRE 12.3 RATIO Normal 10-20 [facility] Comment on above: Performed By: #### L 100.0100, L500.2500 ####[facility] [address] [place], [address] CA,Total 8.3 mg/dL Low 8.5-10.1 [facility] Comment on above: Performed By: #### L 100.0100, L500.2500 ####[facility] [address] [place], [address] Chloride [Moles/Vol] 107 mmol/L Normal 98-107 [facility] Comment on above: Performed By: #### L 100.0100, L500.2500 ####[facility] [address] [place], [address] CO2 [Moles/Vol] 29.0 mmol/L Normal 21.0-32.0 [facility] Comment on above: Performed By: #### L 100.0100, L500.2500 ####[facility] [address] [place], [address] Creatinine [Mass/Vol] 0.97 mg/dL Normal 0.55-1.02 [facility] Comment on above: Result Comment: The validity of the calculated GFR GFRAA in patients over70 years has not been determined. Clinical correlation isessential. Performed By: #### L 100.0100, L500.2500 ####[facility] [address] [place], [address] ECRCL 75.38 ml/min Normal [facility] Comment on above: Performed By: #### L 100.0100, L500.2500 ####[facility] [address] [place], [address] EST GFR - AA 79 mL/min Normal >60 [facility] Comment on above: Result Comment: Afri can Cymraes GFR Calc Performed By: #### L 100.0100, L500.2500 ####[facility] [address] [place], [address] GAP 3 Low 5-15 [facility] Comment on above: Performed By: #### L 100.0100, L500.2500 ####[facility] [address] [place], [address] GFR/1.73 sq M.predicted among non-blacks MDRD (S/P/Bld) [Vol rate/Area] 65 mL/min/{1.73_m2} Normal >60 [facility] Comment on above: Result Comment: Non- GFR Calc Performed By: #### L 100.0100, L500.2500 ####[facility] [address] [place], [address] Glucose [Mass/Vol] 108 mg/dL High 74-106 [facility] Comment on above: Result Comment: Fast ing Glucose result from 100 to 125 mg/dLsuggests IMPAIRED HOMEOSTASIS per A.D.A. criteria. Performed By: #### L 100.0100, L500.2500 ####[facility] [address] [place], [address] Potassium [Moles/Vol] 3.4 mmol/L Low 3.5-5.1 [facility] Comment on above: Performed By: #### L 100.0100, L500.2500 ####[facility] [address] [place], [address] Sodium [Moles/Vol] 139 mmol/L Normal 136-145 [facility] Comment on above: Performed By: #### L 100.0100, L500.2500 ####[facility] [address] [place], [address] Urea nitrogen [Mass/Vol] 12 mg/dL Normal 7-18 [facility] Comment on above: Performed By: #### L 100.0100, L500.2500 ####[facility] [address] [place], [address] Basophil percentageOrdered B y: Anyi Disla on 06-28-2024 Basophils/100 WBC (Bld) 0.5 % 0-1 [facility] Blood urea nitrogen (BUN)/cr eatinine ratioOrdered By: Anyi Disla on 06-28-2024 Urea nitrogen/Creatinine [Mass ratio] 12.3 mg/mg 10- [facility] CBC W/Diff, Automatedon - Absolute Lymph 2.96 X10 3/uL Normal 0.83-4.51 [facility] Comment on above: Performed By: #### L 100.0100, L500.2500 ####[facility] [address] [place], [address] Absolute Neut 2.8 X10 3/uL Normal 2.0-7.7 [facility] Comment on above: Performed By: #### L 100.0100, L500.2500 ####[facility] [address] [place], [address] Basophils/100 WBC (Bld) 0.5 % Normal 0-1 [facility] Comment on above: Performed By: #### L 100.0100, L500.2500 ####[facility] [address] [place], [address] Eosinophils/100 WBC (Bld) 3.2 % Normal 0-5 [facility] Comment on above: Performed By: #### L 100.0100, L500.2500 ####[facility] [address] [place], [address] Erythrocyte distribution width (RBC) [Ratio] 12.9 % Normal 11.6-14.6 [facility] Comment on above: Performed By: #### L 100.0100, L500.2500 ####[facility] [address] [place], [address] Hematocrit (Bld) [Volume fraction] 35.0 % Low 37-47 [facility] Comment on above: Performed By: #### L 100.0100, L500.2500 ####[facility] [address] [place], [address] Hemoglobin (Bld) [Mass/Vol] 11.5 g/dL Low 12.0-15.0 [facility] Comment on above: Performed By: #### L 100.0100, L500.2500 ####[facility] [address] [place], [address] IG% 0.200 Normal 0.0-0.9 [facility] Comment on above: Result Comment: IG% - Immature Granulocytes (promyelocytes, myelocytes andmetamyelocytes) > 1% indicates that a LEFT SHIFT is Present. Performed By: #### L 100.0100, L500.2500 ####[facility] [address] [place], [address] Lymphocytes/100 WBC (Bld) 45.7 % High 19-41 [facility] Comment on above: Performed By: #### L 100.0100, L500.2500 ####[facility] [address] [place], [address] MCH (RBC) [Entitic mass] 30.7 pg Normal 27.0-32.0 [facility] Comment on above: Performed By: #### L 100.0100, L500.2500 ####[facility] [address] [place], [address] MCHC (RBC) [Mass/Vol] 32.9 g/dL Normal 32-36 [facility] Comment on above: Performed By: #### L 100.0100, L500.2500 ####[facility] [address] [place], [address] MCV (RBC) [Entitic vol] 93.3 fL Normal 81-99 [facility] Comment on above: Performed By: #### L 100.0100, L500.2500 ####[facility] [address] [place], [address] Monocytes/100 WBC (Bld) 7.9 % Normal 0-10 [facility] Comment on above: Performed By: #### L 100.0100, L500.2500 ####[facility] [address] [place], [address] Neutrophils/100 WBC (Bld) 42.5 % Low 47-70 [facility] Comment on above: Performed By: #### L 100.0100, L500.2500 ####[facility] [address] [place], [address] Nucleated RBC (Bld) [#/Vol] 0 10*3/uL Normal 0-5 [facility] Comment on above: Performed By: #### L 100.0100, L500.2500 ####[facility] [address] [place], [address] Platelet mean volume (Bld) [Entitic vol] 8.7 fL Normal 6.2-12.0 [facility] Comment on above: Performed By: #### L 100.0100, L500.2500 ####[facility] [address] [place], [address] Platelets (Bld) [#/Vol] 317 10*3/uL Normal 150-450 [facility] Comment on above: Performed By: #### L 100.0100, L500.2500 ####[facility] [address] [place], [address] RBC (Bld) [#/Vol] 3.75 10*6/uL Low 4.2-5.4 [facility] Comment on above: Performed By: #### L 100.0100, L500.2500 ####[facility] [address] [place], [address] RDW SD 43.9 fl Normal 35.1-43.9 [facility] Comment on above: Performed By: #### L 100.0100, L500.2500 ####[facility] [address] [place], [address] WBC (Bld) [#/Vol] 6.5 10*3/uL Normal 4.4-11.0 [facility] Comment on above: Performed By: #### L 100.0100, L500.2500 ####[facility] [address] [place], [address] Carbon dioxide measurementOr dered By: Anyi Disla on 06-28-2024 CO2 [Moles/Vol] 29.0 mmol/L 21.0-32.0 [facility] Chloride measurementOrdered By: Anyi Disla on 06-28-2024 Chloride [Moles/Vol] 107 mmol/L 98-107 [facility] Discharge Instructionon 122 Discharge Instruction Normal [facility] Eosinophil percentageOrdered By: Anyi Disla on 06-28-2024 Eosinophils/100 WBC (Bld) 3.2 % 0-5 [facility] Erythrocyte distribution wid th ratioOrdered By: Anyi Disla on 06-28-2024 Erythrocyte distribution width (RBC) [Ratio] 12.9 % 11.6-14.6 [facility] Erythrocyte distribution wid th standard deviationOrdered By: Anyi Disla on 06-28-2024 Erythrocyte distribution width (RBC) [Entitic vol] 43.9 fL 35.1-43.9 [facility] Estimated glomerular filtrat ion rate (GFR) AmericanOrdered By: Anyi Disla on 06-28-2024 Estimated GFR (MDRD) Amer 79 mL/min >60 [facility] Comment on above: GFR Calc Estimation of creatinine jenny aranceOrdered By: Anyi Disla on 06-28-2024 Estimated Creatinine Clearance Calc 75.38 ml/min [facility] Glomerular filtration rate ( GFR) estimationOrdered By: Anyi Disla on 06-28-2024 Estimated GFR (MDRD) Non-Af Amer 65 mL/min >60 [facility] Comment on above: Non- GFR Calc Glucose measurementOrdered B y: Anyi Disla on 06-28-2024 Glucose [Mass/Vol] 108 mg/dL High 74-106 [facility] Comment on above: Fasting Glucose resu lt from 100 to 125 mg/dL suggests IMPAIRED HOMEOSTASIS per A.D.A. criteria. Hematocrit Auto (Bld) [Volum e fraction]Ordered By: Anyi Disla on 06-28-2024 Hematocrit (Bld) [Volume fraction] 35.0 % Low 37-47 [facility] Hemoglobin measurementOrdere d By: Anyi Disla on 06-28-2024 Hemoglobin (Bld) [Mass/Vol] 11.5 g/dL Low 12.0-15.0 [facility] Immature granulocytes/100 WB C Auto (Bld)Ordered By: Anyi Disla on 06-28-2024 Immature granulocytes/100 WBC (Bld) 0.200 % 0.0-0.9 [facility] Comment on above: IG% - Immature Granu locytes (promyelocytes, myelocytes and metamyelocytes) > 1% indicates that a LEFT SHIFT is Present. Lymphocytes Auto (Unsp spec) [#/Vol]Ordered By: Anyi Disla on 06-28-2024 Lymphocytes (Bld) [#/Vol] 2.96 10*3/uL 0.83-4.51 [facility] Lymphocytes/100 WBC Auto (Un sp spec)Ordered By: Anyi Disla on 06-28-2024 Lymphocytes/100 WBC (Bld) 45.7 % High 19-41 [facility] MCV (mean corpuscular volume ) determinationOrdered By: Anyi Disla on 06-28-2024 MCV (RBC) [Entitic vol] 93.3 fL 81-99 [facility] Mean corpuscular hemoglobin (MCH) determinationOrdered By: Anyi Disla on 06-28-2024 MCH (RBC) [Entitic mass] 30.7 pg 27.0-32.0 [facility] Mean corpuscular hemoglobin concentration (MCHC) determinationOrdered By: Anyi Disla on 06-28-2024 MCHC (RBC) [Mass/Vol] 32.9 g/dL 32-36 [facility] Mean platelet volume determi nationOrdered By: Anyi Disla on 06-28-2024 Platelet mean volume (Bld) [Entitic vol] 8.7 fL 6.2-12.0 [facility] Monocyte percentageOrdered B y: Anyi Disla on 06-28-2024 Monocytes/100 WBC (Bld) 7.9 % 0-10 [facility] Neutrophil percentageOrdered By: Anyi Disla on 06-28-2024 Neutrophils/100 WBC (Bld) 42.5 % Low 47-70 [facility] Nucleated red blood cell per centageOrdered By: Anyi Disla on 06-28-2024 Nucleated RBC/100 WBC (Bld) [Ratio] 0 % 0-5 [facility] Platelet countOrdered By: Frederic Disla on 06-28-2024 Platelets (Bld) [#/Vol] 317 10*3/uL 150-450 [facility] Potassium measurementOrdered By: Anyi Disla on 06-28-2024 Potassium [Moles/Vol] 3.4 mmol/L Low 3.5-5.1 [facility] RBC Auto (Bld) [#/Vol]Ordere d By: Anyi Disla on 06-28-2024 RBC (Bld) [#/Vol] 3.75 10*6/uL Low 4.2-5.4 [facility] Serum anion gap measurementO rdered By: Anyi Disla on 06-28-2024 Anion gap [Moles/Vol] 3 mmol/L Low 5-15 [facility] Serum or plasma calcium marianna urement (mass/volume)Ordered By: Anyi Disla on 06-28-2024 Calcium [Mass/Vol] 8.3 mg/dL Low 8.5-10.1 [facility] Serum or plasma creatinine m easurement (mass/volume)Ordered By: Anyi Disla on 06-28-2024 Creatinine [Mass/Vol] 0.97 mg/dL 0.55-1.02 [facility] Comment on above: The validity of the calculated GFR & GFRAA in patients over 70 years has not been determined. Clinical correlation is essential. Serum or plasma urea nitroge n measurement (mass/volume)Ordered By: Anyi Disla on 06-28-2024 Urea nitrogen [Mass/Vol] 12 mg/dL 7-18 [facility] Sodium levelOrdered By: Itzel Disla on 06-28-2024 Sodium [Moles/Vol] 139 mmol/L 136-145 [facility] White blood cell (WBC) count Ordered By: Anyi Disla on 06-28-2024 WBC (Bld) [#/Vol] 6.5 10*3/uL 4.4-11.0 [facility] Abdomen/Pelvis without Conto n 06-27-2024 Abdomen/Pelvis without Cont Normal [facility] Albumin to globulin ratioOrd ered By: Jean Duran on 06-27-2024 Albumin/Globulin [Mass ratio] 0.9 {ratio} 0.9-2.4 [facility] Bilirubin Test strip Ql (U)O rdered By: Jean Duran on 06-27-2024 Bilirubin Ql (U) Negative Negative [facility] Bilirubin, totalOrdered By: Jean Duran on 06-27-2024 Bilirubin [Mass/Vol] 0.30 mg/dL 0.20-1.00 [facility] Comment on above: For patients on eltr ombopag therapy, use of Dimension [place] TBIL is not recommended. CBC W/Diff, Automatedon 06-02 Absolute Lymph 3.87 X10 3/uL Normal 0.83-4.51 [facility] Comment on above: Performed By: #### L 500.4050, L100.0100, L501.2450 ####[facility] [address] [place], [address] Absolute Neut 4.1 X10 3/uL Normal 2.0-7.7 [facility] Comment on above: Performed By: #### L 500.4050, L100.0100, L501.2450 ####[facility] System [address] [place], [address] Basophils/100 WBC (Bld) 0.4 % Normal 0-1 [facility] Comment on above: Performed By: #### L 500.4050, L100.0100, L501.2450 ####[facility] [address] [place], [address] Eosinophils/100 WBC (Bld) 2.5 % Normal 0-5 [facility] Comment on above: Performed By: #### L 500.4050, L100.0100, L501.2450 ####[facility] [address] [place], [address] Erythrocyte distribution width (RBC) [Ratio] 12.8 % Normal 11.6-14.6 [facility] Comment on above: Performed By: #### L 500.4050, L100.0100, L501.2450 ####[facility] [address] [place], [address] Hematocrit (Bld) [Volume fraction] 37.0 % Normal 37-47 [facility] Comment on above: Performed By: #### L 500.4050, L100.0100, L501.2450 ####[facility] [address] [place], [address] Hemoglobin (Bld) [Mass/Vol] 12.6 g/dL Normal 12.0-15.0 [facility] Comment on above: Performed By: #### L 500.4050, L100.0100, L501.2450 ####[facility] [address] [place], [address] IG% 0.200 Normal 0.0-0.9 [facility] Comment on above: Result Comment: IG% - Immature Granulocytes (promyelocytes, myelocytes andmetamyelocytes) > 1% indicates that a LEFT SHIFT is Present. Performed By: #### L 500.4050, L100.0100, L501.2450 ####[facility] [address] [place], [address] Lymphocytes/100 WBC (Bld) 43.5 % High 19-41 [facility] Comment on above: Performed By: #### L 500.4050, L100.0100, L501.2450 ####[facility] [address] [place], [address] MCH (RBC) [Entitic mass] 31.0 pg Normal 27.0-32.0 [facility] Comment on above: Performed By: #### L 500.4050, L100.0100, L501.2450 ####[facility] [address] [place], [address] MCHC (RBC) [Mass/Vol] 34.1 g/dL Normal 32-36 [facility] Comment on above: Performed By: #### L 500.4050, L100.0100, L501.2450 ####[facility] [address] [place], [address] MCV (RBC) [Entitic vol] 90.9 fL Normal 81-99 [facility] Comment on above: Performed By: #### L 500.4050, L100.0100, L501.2450 ####[facility] [address] [place], [address] Monocytes/100 WBC (Bld) 7.8 % Normal 0-10 [facility] Comment on above: Performed By: #### L 500.4050, L100.0100, L501.2450 ####[facility] [address] [place], [address] Neutrophils/100 WBC (Bld) 45.6 % Low 47-70 [facility] Comment on above: Performed By: #### L 500.4050, L100.0100, L501.2450 ####[facility] [address] [place], [address] Nucleated RBC (Bld) [#/Vol] 0 10*3/uL Normal 0-5 [facility] Comment on above: Performed By: #### L 500.4050, L100.0100, L501.2450 ####[facility] [address] [place], [address] Platelet mean volume (Bld) [Entitic vol] 8.7 fL Normal 6.2-12.0 [facility] Comment on above: Performed By: #### L 500.4050, L100.0100, L501.2450 ####[facility] [address] [place], [address] Platelets (Bld) [#/Vol] 376 10*3/uL Normal 150-450 [facility] Comment on above: Performed By: #### L 500.4050, L100.0100, L501.2450 ####[facility] [address] [place], [address] RBC (Bld) [#/Vol] 4.07 10*6/uL Low 4.2-5.4 [facility] Comment on above: Performed By: #### L 500.4050, L100.0100, L501.2450 ####[facility] [address] [place], [address] RDW SD 41.9 fl Normal 35.1-43.9 [facility] Comment on above: Performed By: #### L 500.4050, L100.0100, L501.2450 ####[facility] [address] [place], [address] WBC (Bld) [#/Vol] 8.9 10*3/uL Normal 4.4-11.0 [facility] Comment on above: Performed By: #### L 500.4050, L100.0100, L501.2450 ####[facility] [address] [place], [address] Comprehensive Metabolic Prof ilon 06-27-2024 Albumin [Mass/Vol] 3.5 g/dL Normal 3.2-5.0 [facility] Comment on above: Performed By: #### L 500.4050, L100.0100, L501.2450 ####[facility] [address] [place], [address] Albumin/Globulin [Mass ratio] 0.9 {ratio} Normal 0.9-2.4 [facility] Comment on above: Performed By: #### L 500.4050, L100.0100, L501.2450 ####[facility] [address] [place], [address] ALK P 81 U/L Normal 45-117 [facility] Comment on above: Performed By: #### L 500.4050, L100.0100, L501.2450 ####[facility] [address] [place], [address] ALT [Catalytic activity/Vol] 35 U/L Normal 13-56 [facility] Comment on above: Performed By: #### L 500.4050, L100.0100, L501.2450 ####[facility] [address] [place], [address] AST [Catalytic activity/Vol] 24 U/L Normal 15-37 [facility] Comment on above: Performed By: #### L 500.4050, L100.0100, L501.2450 ####[facility] [address] [place], [address] Bilirubin [Mass/Vol] 0.30 mg/dL Normal 0.20-1.00 [facility] Comment on above: Result Comment: For patients on eltrombopag therapy, use of Dimension Lawrence TBIL is not recommended. Performed By: #### L 500.4050, L100.0100, L501.2450 ####[facility] [address] [place], [address] BUN/CRE 16.8 RATIO Normal 10-20 [facility] Comment on above: Performed By: #### L 500.4050, L100.0100, L501.2450 ####[facility] [address] [place], [address] CA,Total 9.1 mg/dL Normal 8.5-10.1 [facility] Comment on above: Performed By: #### L 500.4050, L100.0100, L501.2450 ####[facility] [address] [place], [address] Chloride [Moles/Vol] 110 mmol/L High 98-107 [facility] Comment on above: Performed By: #### L 500.4050, L100.0100, L501.2450 ####[facility] [address] [place], [address] CO2 [Moles/Vol] 26.0 mmol/L Normal 21.0-32.0 [facility] Comment on above: Performed By: #### L 500.4050, L100.0100, L501.2450 ####[facility] [address] [place], [address] Creatinine [Mass/Vol] 1.01 mg/dL Normal 0.55-1.02 [facility] Comment on above: Result Comment: The validity of the calculated GFR GFRAA in patients over70 years has not been determined. Clinical correlation isessential. Performed By: #### L 500.4050, L100.0100, L501.2450 ####[facility] [address] [place], [address] ECRCL 72.48 ml/min Normal [facility] Comment on above: Performed By: #### L 500.4050, L100.0100, L501.2450 ####[facility] [address] [place], [address] EST GFR - AA 75 mL/min Normal >60 [facility] Comment on above: Result Comment: Afri can Cymraes GFR Calc Performed By: #### L 500.4050, L100.0100, L501.2450 ####[facility] [address] [place], [address] GAP 6 Normal 5-15 [facility] Comment on above: Performed By: #### L 500.4050, L100.0100, L501.2450 ####[facility] [address] [place], [address] GFR/1.73 sq M.predicted among non-blacks MDRD (S/P/Bld) [Vol rate/Area] 62 mL/min/{1.73_m2} Normal >60 [facility] Comment on above: Result Comment: Non- GFR Calc Performed By: #### L 500.4050, L100.0100, L501.2450 ####[facility] [address] [place], [address] Globulin (S) [Mass/Vol] 3.9 g/dL Normal 2.2-4.2 [facility] Comment on above: Performed By: #### L 500.4050, L100.0100, L501.2450 ####[facility] [address] [place], [address] Glucose [Mass/Vol] 117 mg/dL High 74-106 [facility] Comment on above: Result Comment: Fast ing Glucose result from 100 to 125 mg/dLsuggests IMPAIRED HOMEOSTASIS per A.D.A. criteria. Performed By: #### L 500.4050, L100.0100, L501.2450 ####[facility] [address] [place], [address] Potassium [Moles/Vol] 3.2 mmol/L Low 3.5-5.1 [facility] Comment on above: Performed By: #### L 500.4050, L100.0100, L501.2450 ####[facility] [address] [place], [address] Sodium [Moles/Vol] 142 mmol/L Normal 136-145 [facility] Comment on above: Performed By: #### L 500.4050, L100.0100, L501.2450 ####[facility] [address] [place], [address] T PROT 7.4 g/dL Normal 6.4-8.2 [facility] Comment on above: Performed By: #### L 500.4050, L100.0100, L501.2450 ####[facility] [address] [place], [address] Urea nitrogen [Mass/Vol] 17 mg/dL Normal 7-18 [facility] Comment on above: Performed By: #### L 500.4050, L100.0100, L501.2450 ####[facility] [address] [place], [address] Emergency Department Summary on 06-27-2024 Emergency Department Summary Normal [facility] Epithelial cells.squamous LM Ql (Urine sed)Ordered By: Jean Duran on 06-27-2024 Epithelial cells.squamous LM.HPF (Urine sed) [#/Area] 5 /[HPF] 5-10 [facility] Glucose Ql (U)Ordered By: Hussein Duran on 06-27-2024 Urine Glucose (UA) Normal mg/dl Normal [facility] Ketones Test strip Ql (U)Ord ered By: Jean Duran on 06-27-2024 Ketones Ql (U) 5 mg/dl High Negative [facility] Laboratory - Chemistry and C hemistry - challengeOrdered By: Jean Duran on 06-27-2024 AST [Catalytic activity/Vol] 24 U/L 15-37 [facility] Lipaseon 06-27-2024 Lipase [Catalytic activity/Vol] 69 U/L Normal 13-75 [facility] Comment on above: Result Comment: Arcadio de la paz note:LIPASE revised reference range effective 22.New Lipase methodology. Expected to produce lower valuesthan the previous assay method.NEW Reference Range: 13 - 75 U/L Performed By: #### L 500.4050, L100.0100, L501.2450 ####[facility] [address] [place], [address] Lipase measurementOrdered By : Jean Duran on 06-27-2024 Lipase [Catalytic activity/Vol] 69 U/L 13-75 [facility] Comment on above: Please note:LIPASE r evised reference range effective 22. New Lipase methodology. Expected to produce lower values than the previous assay method. NEW Reference Range: 13 - 75 U/L Microscopic analysis of urin e for red blood cells (RBC)Ordered By: Jean Duran on 06-27-2024 Urine RBC > 100 SEEN /hpf 0-5 [facility] Mucus LM Ql (Urine sed)Order ed By: Jean Duran on 06-27-2024 Mucus Ql (Urine sed) 1+ /hpf [facility] Nitrite Test strip Ql (U)Ord ered By: Jean Duran on 06-27-2024 Nitrite Ql (U) Positive High Negative [facility] Protein Test strip Ql (U)Ord ered By: Jean Duran on 06-27-2024 Protein Ql (U) 100 mg/dl High Negative [facility] Serum globulin measurementOr dered By: Jean Duran on 06-27-2024 Globulin (S) [Mass/Vol] 3.9 g/dL 2.2-4.2 [facility] Serum or plasma alanine irwin otransferase (ALT) measurementOrdered By: Jean Duran on 06-27-2024 ALT [Catalytic activity/Vol] 35 U/L 13-56 [facility] Serum or plasma albumin marianna urement (mass/volume)Ordered By: Jean Duran on 06-27-2024 Albumin [Mass/Vol] 3.5 g/dL 3.2-5.0 [facility] Serum or plasma alkaline caity sphatase measurementOrdered By: Jean Duran on 06-27-2024 ALP [Catalytic activity/Vol] 81 U/L 45-117 [facility] Total proteinOrdered By: Stefania Duran on 06-27-2024 Protein [Mass/Vol] 7.4 g/dL 6.4-8.2 [facility] Urinalysis, Completeon 06-27 BACTERIA 1+ /hpf Normal None Seen [facility] Comment on above: Order Comment: COLOR OF URINE MAY AFFECT DIPSTICK RESULTS.MULT AU MATIC OPERATOR TO SPECIFY Performed By: #### L 400.0001 ####[facility] [address] [facility] [address] Mucus Ql (Urine sed) 1+ /hpf Normal [facility] Comment on above: Order Comment: COLOR OF URINE MAY AFFECT DIPSTICK RESULTS.MULT AU MATIC OPERATOR TO SPECIFY Performed By: #### L 400.0001 ####[facility] [address] [place], [address] EPI,SQUAMOUS 5-10 SEEN Normal 5-10 [facility] Comment on above: Order Comment: COLOR OF URINE MAY AFFECT DIPSTICK RESULTS.MULT AU MATIC OPERATOR TO SPECIFY Performed By: #### L 400.0001 ####[facility] [address] [place], [address] RBC > 100 SEEN Normal 0-5 [facility] Comment on above: Order Comment: COLOR OF URINE MAY AFFECT DIPSTICK RESULTS.MULT AU MATIC OPERATOR TO SPECIFY Performed By: #### L 400.0001 ####[facility] [address] [place], [address] WBC 50-100 SEEN Normal 0-5 [facility] Comment on above: Order Comment: COLOR OF URINE MAY AFFECT DIPSTICK RESULTS.MULT AU MATIC OPERATOR TO SPECIFY Performed By: #### L 400.0001 ####[facility] [address] [place], [address] BILIRUBIN URINE Negative Normal Negative [facility] Comment on above: Order Comment: COLOR OF URINE MAY AFFECT DIPSTICK RESULTS.MULT AU MATIC OPERATOR TO SPECIFY Performed By: #### L 400.0001 ####[facility] [address] [place], [address] Clarity (U) Cloudy Normal Clear [facility] Comment on above: Order Comment: COLOR OF URINE MAY AFFECT DIPSTICK RESULTS.MULT AU MATIC OPERATOR TO SPECIFY Performed By: #### L 400.0001 ####[facility] [address] [place] [id number] Color (U) Red Normal Yellow [facility] Comment on above: Order Comment: COLOR OF URINE MAY AFFECT DIPSTICK RESULTS.MULT AU MATIC OPERATOR TO SPECIFY Performed By: #### L 400.0001 ####[facility] [address] [place] [phone] GLUCOSE, UR Normal Normal Normal [facility] Comment on above: Order Comment: COLOR OF URINE MAY AFFECT DIPSTICK RESULTS.MULT AU MATIC OPERATOR TO SPECIFY Performed By: #### L 400.0001 ####[facility] [address] [place], [address] KETONE UR 5 mg/dl Abnormal Negative [facility] Comment on above: Order Comment: COLOR OF URINE MAY AFFECT DIPSTICK RESULTS.MULT AU MATIC OPERATOR TO SPECIFY Performed By: #### L 400.0001 ####[facility] [address] [place] [id number] LEUK ESTERASE 100 /ul Abnormal Negative [facility] Comment on above: Order Comment: COLOR OF URINE MAY AFFECT DIPSTICK RESULTS.MULT AU MATIC OPERATOR TO SPECIFY Performed By: #### L 400.0001 ####[facility] [address] [place], [address] Nitrite Ql (U) Positive Abnormal Negative [facility] Comment on above: Order Comment: COLOR OF URINE MAY AFFECT DIPSTICK RESULTS.MULT AU MATIC OPERATOR TO SPECIFY Performed By: #### L 400.0001 ####[facility] [address] [place], [address] OCCULT BLOOD-UR 250 /ul Abnormal Negative [facility] Comment on above: Order Comment: COLOR OF URINE MAY AFFECT DIPSTICK RESULTS.MULT AU MATIC OPERATOR TO SPECIFY Performed By: #### L 400.0001 ####[facility] [address] [place], [address] pH UR 6.5 Normal 5.0 - 8.0 [facility] Comment on above: Order Comment: COLOR OF URINE MAY AFFECT DIPSTICK RESULTS.MULT AU MATIC OPERATOR TO SPECIFY Performed By: #### L 400.0001 ####[facility] [address] [facility] [address] PROT DIPSTX 100 mg/dl Abnormal Negative [facility] Comment on above: Order Comment: COLOR OF URINE MAY AFFECT DIPSTICK RESULTS.MULT AU MATIC OPERATOR TO SPECIFY Performed By: #### L 400.0001 ####[facility] [address] [place], [address] SP.GR. DIPSTX 1.015 Normal 1.002-1.030 [facility] Comment on above: Order Comment: COLOR OF URINE MAY AFFECT DIPSTICK RESULTS.MULT AU MATIC OPERATOR TO SPECIFY Performed By: #### L 400.0001 ####[facility] [address] [place], [address] UROBILI 1 mg/dl Abnormal Normal [facility] Comment on above: Order Comment: COLOR OF URINE MAY AFFECT DIPSTICK RESULTS.MULT AU MATIC OPERATOR TO SPECIFY Performed By: #### L 400.0001 ####[facility] [address] [place], [address] Urine blood detectionOrdered By: Jean Duran on 06-27-2024 Urine Occult Blood 250 /ul High Negative [facility] Urine clarityOrdered By: Stefania Duran on 06-27-2024 Clarity (U) Cloudy Clear [facility] Urine color determinationOrd ered By: Jean Duran on 06-27-2024 Color (U) Red Yellow [facility] Urine cultureOrdered By: Aníbal Sykes on 06-27-2024 Bacteria identified Cx Nom (U) Positive Abnormal [facility] Bacteria identified Cx Nom (U) Positive Abnormal [facility] Urine leukocyte esterase det ection by dipstickOrdered By: Jean Duran on 06-27-2024 Leukocyte esterase Test strip Ql (U) 100 /ul High Negative [facility] Urine pHOrdered By: Jean barahona on 06-27-2024 pH (U) 6.5 [pH] 5.0 - 8.0 [facility] Urine sediment bacteria coun t by microscopy (number/high power field)Ordered By: Jean Duran on 06-27-2024 Bacteria LM.HPF (Urine sed) [#/Area] 1 /[HPF] None Seen [facility] Urine specific gravity measu rementOrdered By: Jean Duran on 06-27-2024 Specific gravity (U) [Rel density] 1.015 1.002-1.030 [facility] Urobilinogen Ql (U)Ordered B y: Jean Duran on 06-27-2024 Urobilinogen (U) [Mass/Vol] 1 mg/dL High Normal [facility] White blood cell countOrdere d By: Jean Duran on 06-27-2024 Urine WBC 50-100 SEEN /hpf 0-5 [facility] MR/ENEHABQX8ak 06-20-2024 MR/POSTOPAN2 Normal [facility] Discharge Instructionon 06-01 Discharge Instruction Normal [facility] MR/PAT.ANEon 06-19-2024 MR/PAT.ANE Normal [facility] MR/POSTOP.ANEon 06-19-2024 MR/POSTOP.ANE Normal [facility] Operative Reporton Operative Report Normal [facility] MR/PAT.ANEon 06-18-2024 MR/PAT.ANE Normal [facility] Absolute neutrophil countOrd ered By: Miguel Martinez on 06-09-2024 Neutrophils (Bld) [#/Vol] 3.5 10*3/uL 2.0-7.7 [facility] Basic Metabolic Profile (BMP )on 06-09-2024 BUN/CRE 19.6 RATIO Normal 10-20 [facility] Comment on above: Performed By: #### L 500.2500 ####[facility] [address] [place], [address] CA,Total 8.8 mg/dL Normal 8.5-10.1 [facility] Comment on above: Performed By: #### L 500.2500 ####[facility] [address] [place], [address] Chloride [Moles/Vol] 109 mmol/L High 98-107 [facility] Comment on above: Performed By: #### L 500.2500 ####[facility] [address] [place], [address] CO2 [Moles/Vol] 26.0 mmol/L Normal 21.0-32.0 [facility] Comment on above: Performed By: #### L 500.2500 ####[facility] [address] [place], [address] Creatinine [Mass/Vol] 0.87 mg/dL Normal 0.55-1.02 [facility] Comment on above: Result Comment: The validity of the calculated GFR GFRAA in patients over70 years has not been determined. Clinical correlation isessential. Performed By: #### L 500.2500 ####[facility] [address] [place], [address] ECRCL 84.60 ml/min Normal [facility] Comment on above: Performed By: #### L 500.2500 ####[facility] [address] [place], [address] EST GFR - AA 90 mL/min Normal >60 [facility] Comment on above: Result Comment: Afri can Cymraes GFR Calc Performed By: #### L 500.2500 ####[facility] [address] [place], [address] GAP 3 Low 5-15 [facility] Comment on above: Performed By: #### L 500.2500 ####[facility] [address] [place], [address] GFR/1.73 sq M.predicted among non-blacks MDRD (S/P/Bld) [Vol rate/Area] 74 mL/min/{1.73_m2} Normal >60 [facility] Comment on above: Result Comment: Non- GFR Calc Performed By: #### L 500.2500 ####[facility] [address] [place], [address] Glucose [Mass/Vol] 99 mg/dL Normal 74-106 [facility] Comment on above: Performed By: #### L 500.2500 ####[facility] [address] [place], [address] Potassium [Moles/Vol] 3.8 mmol/L Normal 3.5-5.1 [facility] Comment on above: Performed By: #### L 500.2500 ####[facility] [address] [place], [address] Sodium [Moles/Vol] 138 mmol/L Normal 136-145 [facility] Comment on above: Performed By: #### L 500.2500 ####[facility] [address] [place], [address] Urea nitrogen [Mass/Vol] 17 mg/dL Normal 7-18 [facility] Comment on above: Performed By: #### L 500.2500 ####[facility] [address] [place], [address] Basophil percentageOrdered B y: Miguel Martinez on 06-09-2024 Basophils/100 WBC (Bld) 0.3 % 0-1 [facility] Blood urea nitrogen (BUN)/cr eatinine ratioOrdered By: Miguel Martinez on 06-09-2024 Urea nitrogen/Creatinine [Mass ratio] 19.6 mg/mg 10-20 [facility] CBC W/Diff, Automatedon 12-0 Absolute Lymph 2.48 X10 3/uL Normal 0.83-4.51 [facility] Comment on above: Performed By: #### L 100.0100 ####[facility] [address] [place], [address] Absolute Neut 3.5 X10 3/uL Normal 2.0-7.7 [facility] Comment on above: Performed By: #### L 100.0100 ####[facility] [address] [place], [address] Basophils/100 WBC (Bld) 0.3 % Normal 0-1 [facility] Comment on above: Performed By: #### L 100.0100 ####[facility] [address] [place], [address] Eosinophils/100 WBC (Bld) 1.8 % Normal 0-5 [facility] Comment on above: Performed By: #### L 100.0100 ####[facility] [address] [place], [address] Erythrocyte distribution width (RBC) [Ratio] 12.8 % Normal 11.6-14.6 [facility] Comment on above: Performed By: #### L 100.0100 ####[facility] [address] [place], [address] Hematocrit (Bld) [Volume fraction] 35.1 % Low 37-47 [facility] Comment on above: Performed By: #### L 100.0100 ####[facility] [address] [place], [address] Hemoglobin (Bld) [Mass/Vol] 12.1 g/dL Normal 12.0-15.0 [facility] Comment on above: Performed By: #### L 100.0100 ####[facility] [address] [place], [address] IG% 0.300 Normal 0.0-0.9 [facility] Comment on above: Result Comment: IG% - Immature Granulocytes (promyelocytes, myelocytes andmetamyelocytes) > 1% indicates that a LEFT SHIFT is Present. Performed By: #### L 100.0100 ####[facility] [address] [place], [address] Lymphocytes/100 WBC (Bld) 37.8 % Normal 19-41 [facility] Comment on above: Performed By: #### L 100.0100 ####[facility] [address] [place], [address] MCH (RBC) [Entitic mass] 31.9 pg Normal 27.0-32.0 [facility] Comment on above: Performed By: #### L 100.0100 ####[facility] [address] [place], [address] MCHC (RBC) [Mass/Vol] 34.5 g/dL Normal 32-36 [facility] Comment on above: Performed By: #### L 100.0100 ####[facility] [address] [place], [address] MCV (RBC) [Entitic vol] 92.6 fL Normal 81-99 [facility] Comment on above: Performed By: #### L 100.0100 ####[facility] [address] [place], [address] Monocytes/100 WBC (Bld) 5.9 % Normal 0-10 [facility] Comment on above: Performed By: #### L 100.0100 ####[facility] [address] [place], [address] Neutrophils/100 WBC (Bld) 53.9 % Normal 47-70 [facility] Comment on above: Performed By: #### L 100.0100 ####[facility] [address] [place], [address] Nucleated RBC (Bld) [#/Vol] 0 10*3/uL Normal 0-5 [facility] [facility] Comment on above: Performed By: #### L 100.0100 ####[facility] [address] [place], [address] Platelet mean volume (Bld) [Entitic vol] 8.8 fL Normal 6.2-12.0 [facility] Comment on above: Performed By: #### L 100.0100 ####[facility] [address] [place], [address] Platelets (Bld) [#/Vol] 271 10*3/uL Normal 150-450 [facility] Comment on above: Performed By: #### L 100.0100 ####[facility] [address] [place], [address] RBC (Bld) [#/Vol] 3.79 10*6/uL Low 4.2-5.4 [facility] Comment on above: Performed By: #### L 100.0100 ####[facility] [address] [place], [address] RDW SD 43.4 fl Normal 35.1-43.9 [facility] Comment on above: Performed By: #### L 100.0100 ####[facility] [address] [place], [address] WBC (Bld) [#/Vol] 6.6 10*3/uL Normal 4.4-11.0 [facility] Comment on above: Performed By: #### L 100.0100 ####[facility] [address] [place], [address] Carbon dioxide measurementOr dered By: Miguel Martinez on 06-09-2024 CO2 [Moles/Vol] 26.0 mmol/L 21.0-32.0 [facility] Chloride measurementOrdered By: Miguel Martinez on 06-09-2024 Chloride [Moles/Vol] 109 mmol/L High 98-107 [facility] Discharge Instructionon 12-0 Discharge Instruction Normal [facility] Discharge Instruction Normal [facility] Eosinophil percentageOrdered By: Miguel Martinez on 06-09-2024 Eosinophils/100 WBC (Bld) 1.8 % 0-5 [facility] Erythrocyte distribution wid th ratioOrdered By: Miguel Martinez on 06-09-2024 Erythrocyte distribution width (RBC) [Ratio] 12.8 % 11.6-14.6 [facility] Erythrocyte distribution wid th standard deviationOrdered By: Miguel Martinez on 06-09-2024 Erythrocyte distribution width (RBC) [Entitic vol] 43.4 fL 35.1-43.9 [facility] Estimated glomerular filtrat ion rate (GFR) AmericanOrdered By: Miguel Martinez on 06-09-2024 Estimated GFR (MDRD) Amer 90 mL/min >60 [facility] Comment on above: GFR Calc Estimation of creatinine jenny aranceOrdered By: Miguel Martinez on 06-09-2024 Estimated Creatinine Clearance Calc 84.60 ml/min [facility] Glomerular filtration rate ( GFR) estimationOrdered By: Miguel Martinez on 06-09-2024 Estimated GFR (MDRD) Non-Af Amer 74 mL/min >60 [facility] Comment on above: Non- GFR Calc Glucose measurementOrdered B y: Miguel Martinez on 06-09-2024 Glucose [Mass/Vol] 99 mg/dL 74-106 [facility] Hematocrit Auto (Bld) [Volum e fraction]Ordered By: Miguel Martinez on 06-09-2024 Hematocrit (Bld) [Volume fraction] 35.1 % Low 37-47 [facility] Hemoglobin measurementOrdere d By: Miguel Martinez on 06-09-2024 Hemoglobin (Bld) [Mass/Vol] 12.1 g/dL 12.0-15.0 [facility] Immature granulocytes/100 WB C Auto (Bld)Ordered By: Miguel Martinez on 06-09-2024 Immature granulocytes/100 WBC (Bld) 0.300 % 0.0-0.9 [facility] Comment on above: IG% - Immature Granu locytes (promyelocytes, myelocytes and metamyelocytes) > 1% indicates that a LEFT SHIFT is Present. International normalized rat io (INR) calculationOrdered By: Miguel Martinez on 06-09-2024 INR Coag (Bld) [Relative time] 1.2 {INR} [facility] Lymphocytes Auto (Unsp spec) [#/Vol]Ordered By: Miguel Martinez on 06-09-2024 Lymphocytes (Bld) [#/Vol] 2.48 10*3/uL 0.83-4.51 [facility] Lymphocytes/100 WBC Auto (Un sp spec)Ordered By: Miguel Martinez on 06-09-2024 Lymphocytes/100 WBC (Bld) 37.8 % 19-41 [facility] MCV (mean corpuscular volume ) determinationOrdered By: Miguel Martinez on 06-09-2024 MCV (RBC) [Entitic vol] 92.6 fL 81-99 [facility] MR/POSTOP.ANEon 06-09-2024 MR/POSTOP.ANE Normal [facility] MR/YGZQOSWC5fy 06-09-2024 MR/POSTOPAN2 Normal [facility] Mean corpuscular hemoglobin (MCH) determinationOrdered By: Miguel Martinez on 06-09-2024 MCH (RBC) [Entitic mass] 31.9 pg 27.0-32.0 [facility] Mean corpuscular hemoglobin concentration (MCHC) determinationOrdered By: Miguel Martinez on 06-09-2024 MCHC (RBC) [Mass/Vol] 34.5 g/dL 32-36 [facility] Mean platelet volume determi nationOrdered By: Miguel Martinez on 06-09-2024 Platelet mean volume (Bld) [Entitic vol] 8.8 fL 6.2-12.0 [facility] Monocyte percentageOrdered B y: Miguel Martinez on 06-09-2024 Monocytes/100 WBC (Bld) 5.9 % 0-10 [facility] Neutrophil percentageOrdered By: Miguel Martinez on 06-09-2024 Neutrophils/100 WBC (Bld) 53.9 % 47-70 [facility] Nucleated red blood cell per centageOrdered By: Miguel Martinez on 06-09-2024 Nucleated RBC/100 WBC (Bld) [Ratio] 0 % 0-5 [facility] Operative Reporton 4 Operative Report Normal [facility] Partial Thromboplast Timeon 06-09-2024 aPTT Coag (Bld) [Time] 23.9 s Low 24.1-36.2 [facility] Comment on above: Performed By: #### L 300.4310, L300.3900 ####[facility] [address] [place], [address] Platelet countOrdered By: Aba Martinez on 06-09-2024 Platelets (Bld) [#/Vol] 271 10*3/uL 150-450 [facility] Potassium measurementOrdered By: Miguel Martinez on 06-09-2024 Potassium [Moles/Vol] 3.8 mmol/L 3.5-5.1 [facility] Prothrombin Time w/INRon INR Coag (PPP) [Relative time] 1.2 {INR} Normal [facility] Comment on above: Performed By: #### L 300.4310, L300.3900 ####[facility] [address] [place], [address] PT Coag (PPP) [Time] 14.8 s Normal 11.7-14.9 [facility] Comment on above: Performed By: #### L 300.4310, L300.3900 ####[facility] [address] [place], [address] Prothrombin timeOrdered By: Miguel Martinez on 06-09-2024 PT Coag (PPP) [Time] 14.8 s 11.7-14.9 [facility] RBC Auto (Bld) [#/Vol]Ordere d By: Miguel Martinez on 06-09-2024 RBC (Bld) [#/Vol] 3.79 10*6/uL Low 4.2-5.4 [facility] Serum anion gap measurementO rdered By: Miguel Martinez on 06-09-2024 Anion gap [Moles/Vol] 3 mmol/L Low 5-15 [facility] Serum or plasma calcium marianna urement (mass/volume)Ordered By: Miguel Martinez on 06-09-2024 Calcium [Mass/Vol] 8.8 mg/dL 8.5-10.1 [facility] Serum or plasma creatinine m easurement (mass/volume)Ordered By: Miguel Martinez on 06-09-2024 Creatinine [Mass/Vol] 0.87 mg/dL 0.55-1.02 [facility] Comment on above: The validity of the calculated GFR & GFRAA in patients over 70 years has not been determined. Clinical correlation is essential. Serum or plasma urea nitroge n measurement (mass/volume)Ordered By: Miguel Martinez on 06-09-2024 Urea nitrogen [Mass/Vol] 17 mg/dL 7-18 [facility] Sodium levelOrdered By: Miguel Martinez on 06-09-2024 Sodium [Moles/Vol] 138 mmol/L 136-145 [facility] Urine Cultureon 06-09-2024 URC Below infection leve l. Presumptive E. coli [place] Count 1000-10,000 Normal [facility] Comment on above: Performed By: #### M 100.2200 ####[facility] [address] [place], [address] White blood cell (WBC) count Ordered By: Miguel Martinez on 06-09-2024 WBC (Bld) [#/Vol] 6.6 10*3/uL 4.4-11.0 [facility] aPTT Coag (PPP) [Time]Ordere d By: Miguel Martinez on 06-09-2024 aPTT Coag (Bld) [Time] 23.9 s Low 24.1-36.2 [facility] Abdomen/Pelvis without Conto n 06-07-2024 Abdomen/Pelvis without Cont Normal [facility] Albumin to globulin ratioOrd ered By: Jean Duran on 06-07-2024 Albumin/Globulin [Mass ratio] 1.1 {ratio} 0.9-2.4 [facility] Bilirubin Test strip Ql (U)O rdered By: Jean Duran on 06-07-2024 Bilirubin Ql (U) Negative Negative [facility] Bilirubin, totalOrdered By: Jean Duran on 06-07-2024 Bilirubin [Mass/Vol] 0.60 mg/dL 0.20-1.00 [facility] Comment on above: For patients on eltr ombopag therapy, use of Dimension Lawrence TBIL is not recommended. CBC W/Diff, Automatedon 12- Absolute Lymph 3.19 X10 3/uL Normal 0.83-4.51 [facility] Comment on above: Performed By: #### L 501.2450, L100.0100, L500.4050 ####[facility] [address] [place], [address] Absolute Neut 4.2 X10 3/uL Normal 2.0-7.7 [facility] Comment on above: Performed By: #### L 501.2450, L100.0100, L500.4050 ####[facility] [address] [place], [address] Basophils/100 WBC (Bld) 0.4 % Normal 0-1 [facility] Comment on above: Performed By: #### L 501.2450, L100.0100, L500.4050 ####[facility] [address] [place], [address] Eosinophils/100 WBC (Bld) 2.0 % Normal 0-5 [facility] Comment on above: Performed By: #### L 501.2450, L100.0100, L500.4050 ####[facility] [address] [place], [address] Erythrocyte distribution width (RBC) [Ratio] 12.7 % Normal 11.6-14.6 [facility] Comment on above: Performed By: #### L 501.2450, L100.0100, L500.4050 ####[facility] [address] [place], [address] Hematocrit (Bld) [Volume fraction] 38.5 % Normal 37-47 [facility] Comment on above: Performed By: #### L 501.2450, L100.0100, L500.4050 ####[facility] [address] [place], [address] Hemoglobin (Bld) [Mass/Vol] 13.0 g/dL Normal 12.0-15.0 [facility] Comment on above: Performed By: #### L 501.2450, L100.0100, L500.4050 ####[facility] [address] [place], [address] IG% 0.200 Normal 0.0-0.9 [facility] Comment on above: Result Comment: IG% - Immature Granulocytes (promyelocytes, myelocytes andmetamyelocytes) > 1% indicates that a LEFT SHIFT is Present. Performed By: #### L 501.2450, L100.0100, L500.4050 ####[facility] [address] [place], [address] Lymphocytes/100 WBC (Bld) 39.6 % Normal 19-41 [facility] Comment on above: Performed By: #### L 501.2450, L100.0100, L500.4050 ####[facility] [address] [place], [address] MCH (RBC) [Entitic mass] 31.3 pg Normal 27.0-32.0 [facility] Comment on above: Performed By: #### L 501.2450, L100.0100, L500.4050 ####[facility] [address] [place], [address] MCHC (RBC) [Mass/Vol] 33.8 g/dL Normal 32-36 [facility] Comment on above: Performed By: #### L 501.2450, L100.0100, L500.4050 ####[facility] [address] [place], [address] MCV (RBC) [Entitic vol] 92.8 fL Normal 81-99 [facility] Comment on above: Performed By: #### L 501.2450, L100.0100, L500.4050 ####[facility] [address] [place], [address] Monocytes/100 WBC (Bld) 6.0 % Normal 0-10 [facility] Comment on above: Performed By: #### L 501.2450, L100.0100, L500.4050 ####[facility] [address] [place], [address] Neutrophils/100 WBC (Bld) 51.8 % Normal 47-70 [facility] Comment on above: Performed By: #### L 501.2450, L100.0100, L500.4050 ####[facility] [address] [place], [address] Nucleated RBC (Bld) [#/Vol] 0 10*3/uL Normal 0-5 [facility] Comment on above: Performed By: #### L 501.2450, L100.0100, L500.4050 ####[facility] [address] [place], [address] Platelet mean volume (Bld) [Entitic vol] 8.7 fL Normal 6.2-12.0 [facility] Comment on above: Performed By: #### L 501.2450, L100.0100, L500.4050 ####[facility] [address] [place], [address] Platelets (Bld) [#/Vol] 314 10*3/uL Normal 150-450 [facility] Comment on above: Performed By: #### L 501.2450, L100.0100, L500.4050 ####[facility] [address] [place], [address] RBC (Bld) [#/Vol] 4.15 10*6/uL Low 4.2-5.4 [facility] Comment on above: Performed By: #### L 501.2450, L100.0100, L500.4050 ####[facility] [address] [place], [address] RDW SD 43.2 fl Normal 35.1-43.9 [facility] Comment on above: Performed By: #### L 501.2450, L100.0100, L500.4050 ####[facility] [address] [place], [address] WBC (Bld) [#/Vol] 8.1 10*3/uL Normal 4.4-11.0 [facility] Comment on above: Performed By: #### L 501.2450, L100.0100, L500.4050 ####[facility] [address] [place], [address] Comprehensive Metabolic Prof [facility] 06-07-2024 Albumin [Mass/Vol] 3.9 g/dL Normal 3.2-5.0 [facility] Comment on above: Performed By: #### L 501.2450, L100.0100, L500.4050 ####[facility] [address] [place], [address] Albumin/Globulin [Mass ratio] 1.1 {ratio} Normal 0.9-2.4 [facility] Comment on above: Performed By: #### L 501.2450, L100.0100, L500.4050 ####[facility] [address] [place], [address] ALK P 68 U/L Normal 45-117 [facility] Comment on above: Performed By: #### L 501.2450, L100.0100, L500.4050 ####[facility] [address] [place], [address] ALT [Catalytic activity/Vol] 25 U/L Normal 13-56 [facility] Comment on above: Performed By: #### L 501.2450, L100.0100, L500.4050 ####[facility] [address] [place], [address] AST [Catalytic activity/Vol] 20 U/L Normal 15-37 [facility] Comment on above: Performed By: #### L 501.2450, L100.0100, L500.4050 ####[facility] [address] [place], [address] Bilirubin [Mass/Vol] 0.60 mg/dL Normal 0.20-1.00 [facility] Comment on above: Result Comment: For patients on eltrombopag therapy, use of Dimension Lawrence TBIL is not recommended. Performed By: #### L 501.2450, L100.0100, L500.4050 ####[facility] [address] [place], [address] BUN/CRE 18.4 RATIO Normal 10-20 [facility] Comment on above: Performed By: #### L 501.2450, L100.0100, L500.4050 ####[facility] [address] [place], [address] CA,Total 8.7 mg/dL Normal 8.5-10.1 [facility] Comment on above: Performed By: #### L 501.2450, L100.0100, L500.4050 ####[facility] [address] [place], [address] Chloride [Moles/Vol] 104 mmol/L Normal 98-107 [facility] Comment on above: Performed By: #### L 501.2450, L100.0100, L500.4050 ####[facility] [address] [place], [address] CO2 [Moles/Vol] 28.0 mmol/L Normal 21.0-32.0 [facility] Comment on above: Performed By: #### L 501.2450, L100.0100, L500.4050 ####[facility] [address] [place], [address] Creatinine [Mass/Vol] 0.87 mg/dL Normal 0.55-1.02 [facility] Comment on above: Result Comment: The validity of the calculated GFR GFRAA in patients over70 years has not been determined. Clinical correlation isessential. Performed By: #### L 501.2450, L100.0100, L500.4050 ####[facility] [address] [place], [address] ECRCL 84.49 ml/min Normal [facility] Comment on above: Performed By: #### L 501.2450, L100.0100, L500.4050 ####[facility] [address] [place], [address] EST GFR - AA 90 mL/min Normal >60 [facility] Comment on above: Result Comment: Afri can Cymraes GFR Calc Performed By: #### L 501.2450, L100.0100, L500.4050 ####[facility] [address] [place], [address] GAP 6 Normal 5-15 [facility] Comment on above: Performed By: #### L 501.2450, L100.0100, L500.4050 ####[facility] [address] [place], [address] GFR/1.73 sq M.predicted among non-blacks MDRD (S/P/Bld) [Vol rate/Area] 74 mL/min/{1.73_m2} Normal >60 [facility] Comment on above: Result Comment: Non- GFR Calc Performed By: #### L 501.2450, L100.0100, L500.4050 ####[facility] [address] [place], [address] Globulin (S) [Mass/Vol] 3.7 g/dL Normal 2.2-4.2 [facility] Comment on above: Performed By: #### L 501.2450, L100.0100, L500.4050 ####[facility] [address] [place], [address] Glucose [Mass/Vol] 86 mg/dL Normal 74-106 [facility] Comment on above: Performed By: #### L 501.2450, L100.0100, L500.4050 ####[facility] [address] [place], [address] Potassium [Moles/Vol] 3.3 mmol/L Low 3.5-5.1 [facility] Comment on above: Performed By: #### L 501.2450, L100.0100, L500.4050 ####[facility] [address] [place], [address] Sodium [Moles/Vol] 138 mmol/L Normal 136-145 [facility] Comment on above: Performed By: #### L 501.2450, L100.0100, L500.4050 ####[facility] [address] [place], [address] T PROT 7.6 g/dL Normal 6.4-8.2 [facility] Comment on above: Performed By: #### L 501.2450, L100.0100, L500.4050 ####[facility] [address] [place], [address] Urea nitrogen [Mass/Vol] 16 mg/dL Normal 7-18 [facility] Comment on above: Performed By: #### L 501.2450, L100.0100, L500.4050 ####[facility] [address] [place], [address] Emergency Department Summary on 06-07-2024 Emergency Department Summary Normal [facility] Epithelial cells.squamous LM Ql (Urine sed)Ordered By: Jean Duran on 06-07-2024 Epithelial cells.squamous LM.HPF (Urine sed) [#/Area] 0 /[HPF] 5-10 [facility] Glucose Ql (U)Ordered By: Hussein Duran on 06-07-2024 Urine Glucose (UA) Normal mg/dl Normal [facility] Ketones Test strip Ql (U)Ord ered By: Jean Duran on 06-07-2024 Ketones Ql (U) Negative Negative [facility] Laboratory - Chemistry and C hemistry - challengeOrdered By: Jean Duran on 06-07-2024 AST [Catalytic activity/Vol] 20 U/L 15-37 [facility] Lipaseon 06-07-2024 Lipase [Catalytic activity/Vol] 34 U/L Normal 13-75 [facility] Comment on above: Result Comment: Arcadio de la paz note:LIPASE revised reference range effective 22.New Lipase methodology. Expected to produce lower valuesthan the previous assay method.NEW Reference Range: 13 - 75 U/L Performed By: #### L 501.2450, L100.0100, L500.4050 ####[facility] [address] [place], [place], [address] Lipase measurementOrdered By : Jean Duran on 06-07-2024 Lipase [Catalytic activity/Vol] 34 U/L 13-75 [facility] Comment on above: Please note:LIPASE r evised reference range effective 22. New Lipase methodology. Expected to produce lower values than the previous assay method. NEW Reference Range: 13 - 75 U/L Microscopic analysis of urin e for red blood cells (RBC)Ordered By: Jean Duran on 06-07-2024 Urine RBC > 100 SEEN /hpf 0-5 [facility] Mucus LM Ql (Urine sed)Order ed By: Jean Duran on 06-07-2024 Mucus Ql (Urine sed) 0 SEEN /hpf [facility] Nitrite Test strip Ql (U)Ord ered By: Jean Duran on 06-07-2024 Nitrite Ql (U) Negative Negative [facility] Protein Test strip Ql (U)Ord ered By: Jean Duran on 06-07-2024 Protein Ql (U) 30 mg/dl High Negative [facility] Serum globulin measurementOr dered By: Jean Duran on 06-07-2024 Globulin (S) [Mass/Vol] 3.7 g/dL 2.2-4.2 [facility] Serum or plasma alanine irwin otransferase (ALT) measurementOrdered By: Jean Duran on 06-07-2024 ALT [Catalytic activity/Vol] 25 U/L 13-56 [facility] Serum or plasma albumin marianna urement (mass/volume)Ordered By: Jean Duran on 06-07-2024 Albumin [Mass/Vol] 3.9 g/dL 3.2-5.0 [facility] Serum or plasma alkaline caity sphatase measurementOrdered By: Jean Duran on 06-07-2024 ALP [Catalytic activity/Vol] 68 U/L 45-117 [facility] Total proteinOrdered By: Stefania Duran on 06-07-2024 Protein [Mass/Vol] 7.6 g/dL 6.4-8.2 [facility] Urinalysis, Completeon 06-07 BACTERIA 1+ /hpf Normal None Seen [facility] Comment on above: Order Comment: COLOR OF URINE MAY AFFECT DIPSTICK RESULTS.CLEAN CATCH Performed By: #### L 400.0001 ####[facility] [address] [place], [place], [address] EPI,SQUAMOUS 0-5 SEEN Normal 5-10 [facility] Comment on above: Order Comment: COLOR OF URINE MAY AFFECT DIPSTICK RESULTS.CLEAN CATCH Performed By: #### L 400.0001 ####[facility] [address] [place], [place], [address] RBC > 100 SEEN Normal 0-5 [facility] Comment on above: Order Comment: COLOR OF URINE MAY AFFECT DIPSTICK RESULTS.CLEAN CATCH Performed By: #### L 400.0001 ####[facility] [address] [place], [address] WBC 0-5 SEEN Normal 0-5 [facility] Comment on above: Order Comment: COLOR OF URINE MAY AFFECT DIPSTICK RESULTS.CLEAN CATCH Performed By: #### L 400.0001 ####[facility] [address] [place], [address] Mucus Ql (Urine sed) 0 SEEN Normal [facility] Comment on above: Order Comment: COLOR OF URINE MAY AFFECT DIPSTICK RESULTS.CLEAN CATCH Performed By: #### L 400.0001 ####[facility] [address] [place], [address] Urine blood detectionOrdered By: Jean Duran on 06-07-2024 Urine Occult Blood 250 /ul High Negative [facility] Urine clarityOrdered By: Stefania Duran on 06-07-2024 Clarity (U) Sl. Cloudy Clear [facility] Urine color determinationOrd ered By: Jean Duran on 06-07-2024 Color (U) Red Yellow [facility] Urine cultureOrdered By: Stefania Duran on 06-07-2024 Bacteria identified Cx Nom (U) Presumptive E. coli Abnormal [facility] Urine leukocyte esterase det ection by dipstickOrdered By: Jean Duran on 06-07-2024 Leukocyte esterase Test strip Ql (U) 25 /ul High Negative [facility] Urine pHOrdered By: Jean barahona on 06-07-2024 pH (U) 6.5 [pH] 5.0 - 8.0 [facility] Urine sediment bacteria coun t by microscopy (number/high power field)Ordered By: Jean Duran on 06-07-2024 Bacteria LM.HPF (Urine sed) [#/Area] 1 /[HPF] None Seen [facility] Urine specific gravity measu rementOrdered By: Jean Duran on 06-07-2024 Specific gravity (U) [Rel density] 1.010 1.002-1.030 [facility] Urobilinogen Ql (U)Ordered B y: Jean Duran on 06-07-2024 Urine Urobilinogen Normal mg/dl Normal [facility] White blood cell countOrdere d By: Jean Duran on 06-07-2024 Urine WBC 0-5 SEEN /hpf 0-5 [facility] Pelvic w/ Transvaginalon Pelvic w/ Transvaginal Normal [facility] 12 Lead EKGon 05-09-2024 12 Lead EKG Normal [facility] Basic Metabolic Profile (BMP )on 05-09-2024 BUN/CRE 10.3 RATIO Normal 10-20 [facility] Comment on above: Order Comment: 'TROP ' Serial specimen #1, #2 or #3: 1 Performed By: #### L 501.2450, L500.3400, L500.2500, L501.4020 ####[facility] [address] [place], [address] CA,Total 8.3 mg/dL Low 8.5-10.1 [facility] Comment on above: Order Comment: 'TROP ' Serial specimen #1, #2 or #3: 1 Performed By: #### L 501.2450, L500.3400, L500.2500, L501.4020 ####[facility] [address] [place], [address] Chloride [Moles/Vol] 109 mmol/L High 98-107 [facility] Comment on above: Order Comment: 'TROP ' Serial specimen #1, #2 or #3: 1 Performed By: #### L 501.2450, L500.3400, L500.2500, L501.4020 ####[facility] [address] [place], [address] CO2 [Moles/Vol] 24.0 mmol/L Normal 21.0-32.0 [facility] Comment on above: Order Comment: 'TROP ' Serial specimen #1, #2 or #3: 1 Performed By: #### L 501.2450, L500.3400, L500.2500, L501.4020 ####[facility] [address] [place], [address] Creatinine [Mass/Vol] 0.88 mg/dL Normal 0.55-1.02 [facility] Comment on above: Order Comment: 'TROP ' Serial specimen #1, #2 or #3: 1 Result Comment: The validity of the calculated GFR GFRAA in patients over70 years has not been determined. Clinical correlation isessential. Performed By: #### L 501.2450, L500.3400, L500.2500, L501.4020 ####[facility] [address] [place], [address] ECRCL 84.32 ml/min Normal [facility] Comment on above: Order Comment: 'TROP ' Serial specimen #1, #2 or #3: 1 Performed By: #### L 501.2450, L500.3400, L500.2500, L501.4020 ####[facility] [address] [place], [address] EST GFR - AA 89 mL/min Normal >60 [facility] Comment on above: Order Comment: 'TROP ' Serial specimen #1, #2 or #3: 1 Result Comment: Afri can Cymraes GFR Calc Performed By: #### L 501.2450, L500.3400, L500.2500, L501.4020 ####[facility] [address] [place], [address] GAP 5 Normal 5-15 [facility] Comment on above: Order Comment: 'TROP ' Serial specimen #1, #2 or #3: 1 Performed By: #### L 501.2450, L500.3400, L500.2500, L501.4020 ####[facility] [address] [place], [address] GFR/1.73 sq M.predicted among non-blacks MDRD (S/P/Bld) [Vol rate/Area] 73 mL/min/{1.73_m2} Normal >60 [facility] Comment on above: Order Comment: 'TROP ' Serial specimen #1, #2 or #3: 1 Result Comment: Non- GFR Calc Performed By: #### L 501.2450, L500.3400, L500.2500, L501.4020 ####[facility] [address] [place], [address] Glucose [Mass/Vol] 88 mg/dL Normal 74-106 [facility] Comment on above: Order Comment: 'TROP ' Serial specimen #1, #2 or #3: 1 Performed By: #### L 501.2450, L500.3400, L500.2500, L501.4020 ####[facility] [address] [place], [address] Potassium [Moles/Vol] 3.5 mmol/L Normal 3.5-5.1 [facility] Comment on above: Order Comment: 'TROP ' Serial specimen #1, #2 or #3: 1 Performed By: #### L 501.2450, L500.3400, L500.2500, L501.4020 ####[facility] [address] [place], [address] Sodium [Moles/Vol] 139 mmol/L Normal 136-145 [facility] Comment on above: Order Comment: 'TROP ' Serial specimen #1, #2 or #3: 1 Performed By: #### L 501.2450, L500.3400, L500.2500, L501.4020 ####[facility] [address] [place], [address] Urea nitrogen [Mass/Vol] 9 mg/dL Normal 7-18 [facility] Comment on above: Order Comment: 'TROP ' Serial specimen #1, #2 or #3: 1 Performed By: #### L 501.2450, L500.3400, L500.2500, L501.4020 ####[facility] [address] [place], [address] Bilirubin directOrdered By: Albert Sykes on 05-09-2024 Bilirubin.direct [Mass/Vol] 0.08 mg/dL 0.00-0.30 [facility] Bilirubin, totalOrdered By: Albert Sykes on 05-09-2024 Bilirubin [Mass/Vol] 0.30 mg/dL 0.20-1.00 [facility] Comment on above: For patients on eltr ombopag therapy, use of Dimension Lawrence TBIL is not recommended. Blood urea nitrogen (BUN)/cr eatinine ratioOrdered By: Albert Sykes on 05-09-2024 Urea nitrogen/Creatinine [Mass ratio] 10.3 mg/mg 10-20 [facility] CBC-Complete Blood Cnt No Di ffon 05-09-2024 Erythrocyte distribution width (RBC) [Ratio] 12.9 % Normal 11.6-14.6 [facility] Comment on above: Performed By: #### L 100.0500 ####[facility] [address] [place], [address] Hematocrit (Bld) [Volume fraction] 38.8 % Normal 37-47 [facility] Comment on above: Performed By: #### L 100.0500 ####[facility] [address] [place], [address] Hemoglobin (Bld) [Mass/Vol] 13.0 g/dL Normal 12.0-15.0 [facility] Comment on above: Performed By: #### L 100.0500 ####[facility] [address] [place], [address] MCH (RBC) [Entitic mass] 30.8 pg Normal 27.0-32.0 [facility] Comment on above: Performed By: #### L 100.0500 ####[facility] [address] [place], [address] MCHC (RBC) [Mass/Vol] 33.5 g/dL Normal 32-36 [facility] Comment on above: Performed By: #### L 100.0500 ####[facility] [address] [place], [address] MCV (RBC) [Entitic vol] 91.9 fL Normal 81-99 [facility] Comment on above: Performed By: #### L 100.0500 ####[facility] [address] [place], [address] Platelet mean volume (Bld) [Entitic vol] 8.5 fL Normal 6.2-12.0 [facility] Comment on above: Performed By: #### L 100.0500 ####[facility] [address] [place], [address] Platelets (Bld) [#/Vol] 305 10*3/uL Normal 150-450 [facility] Comment on above: Performed By: #### L 100.0500 ####[facility] [address] [place], [address] RBC (Bld) [#/Vol] 4.22 10*6/uL Normal 4.2-5.4 [facility] Comment on above: Performed By: #### L 100.0500 ####[facility] [address] [place], [address] RDW SD 43.3 fl Normal 35.1-43.9 [facility] Comment on above: Performed By: #### L 100.0500 ####[facility] [address] [place], [address] WBC (Bld) [#/Vol] 7.0 10*3/uL Normal 4.4-11.0 [facility] Comment on above: Performed By: #### L 100.0500 ####[facility] [address] [place], [address] CTA Chest W/WO Contraston CTA Chest W/WO Contrast Normal [facility] Carbon dioxide measurementOr dered By: Albert Sykes on 05-09-2024 CO2 [Moles/Vol] 24.0 mmol/L 21.0-32.0 [facility] Chloride measurementOrdered By: Albert Sykes on 05-09-2024 Chloride [Moles/Vol] 109 mmol/L High 98-107 [facility] Emergency Department Summary on 05-09-2024 Emergency Department Summary Normal [facility] Erythrocyte distribution wid th ratioOrdered By: Albert Sykes on 05-09-2024 Erythrocyte distribution width (RBC) [Ratio] 12.9 % 11.6-14.6 [facility] Erythrocyte distribution wid th standard deviationOrdered By: Albert Sykes on 05-09-2024 Erythrocyte distribution width (RBC) [Entitic vol] 43.3 fL 35.1-43.9 [facility] Estimated glomerular filtrat ion rate (GFR) AmericanOrdered By: Albert Sykes on 05-09-2024 Estimated GFR (MDRD) Amer 89 mL/min >60 [facility] Comment on above: GFR Calc Estimation of creatinine jenny aranceOrdered By: Albert Sykes on 05-09-2024 Estimated Creatinine Clearance Calc 84.32 ml/min [facility] Glomerular filtration rate ( GFR) estimationOrdered By: Albert Sykes on 05-09-2024 Estimated GFR (MDRD) Non-Af Amer 73 mL/min >60 [facility] Comment on above: Non- GFR Calc Glucose measurementOrdered B y: Albert Sykes on 05-09-2024 Glucose [Mass/Vol] 88 mg/dL 74-106 [facility] Hematocrit Auto (Bld) [Volum e fraction]Ordered By: Albert Sykes on 05-09-2024 Hematocrit (Bld) [Volume fraction] 38.8 % 37-47 [facility] Hemoglobin measurementOrdere d By: Albert Sykes on 05-09-2024 Hemoglobin (Bld) [Mass/Vol] 13.0 g/dL 12.0-15.0 [facility] L501.4020on 05-09-2024 TROPONIN-I HS 5 pg/mL Normal 3.0-54.0 [facility] Comment on above: Order Comment: 'TROP ' Serial specimen #1, #2 or #3: 1 Result Comment: Plea se Note: New Test Units and Gender Specific Reference Ranges. For more information see Policy Stat Procedure Lawrence High Sensitivity Troponin (TNIH) and attachments. Performed By: #### L 501.2450, L500.3400, L500.2500, L501.4020 ####[facility] [address] [place], [address] Laboratory - Chemistry and C hemistry - challengeOrdered By: Albert Sykes on 05-09-2024 AST [Catalytic activity/Vol] 21 U/L 15-37 [facility] Lipaseon 05-09-2024 Lipase [Catalytic activity/Vol] 52 U/L Normal 13-75 [facility] Comment on above: Order Comment: 'TROP ' Serial specimen #1, #2 or #3: 1 Result Comment: Plea se note:LIPASE revised reference range effective 22.New Lipase methodology. Expected to produce lower valuesthan the previous assay method.NEW Reference Range: 13 - 75 U/L Performed By: #### L 501.2450, L500.3400, L500.2500, L501.4020 ####[facility] [address] [place], [address] Lipase measurementOrdered By : Albert Sykes on 05-09-2024 Lipase [Catalytic activity/Vol] 52 U/L 13-75 [facility] Comment on above: Please note:LIPASE r evised reference range effective 22. New Lipase methodology. Expected to produce lower values than the previous assay method. NEW Reference Range: 13 - 75 U/L Liver Profileon 05-09-2024 Albumin [Mass/Vol] 3.5 g/dL Normal 3.2-5.0 [facility] Comment on above: Order Comment: 'TROP ' Serial specimen #1, #2 or #3: 1 Performed By: #### L 501.2450, L500.3400, L500.2500, L501.4020 ####[facility] [address] [place], [address] ALK P 78 U/L Normal 45-117 [facility] Comment on above: Order Comment: 'TROP ' Serial specimen #1, #2 or #3: 1 Performed By: #### L 501.2450, L500.3400, L500.2500, L501.4020 ####[facility] [address] [place], [address] ALT [Catalytic activity/Vol] 32 U/L Normal 13-56 [facility] Comment on above: Order Comment: 'TROP ' Serial specimen #1, #2 or #3: 1 Performed By: #### L 501.2450, L500.3400, L500.2500, L501.4020 ####[facility] [address] [place], [address] AST [Catalytic activity/Vol] 21 U/L Normal 15-37 [facility] Comment on above: Order Comment: 'TROP ' Serial specimen #1, #2 or #3: 1 Performed By: #### L 501.2450, L500.3400, L500.2500, L501.4020 ####[facility] [address] [place], [address] Bilirubin [Mass/Vol] 0.30 mg/dL Normal 0.20-1.00 [facility] Comment on above: Order Comment: 'TROP ' Serial specimen #1, #2 or #3: 1 Result Comment: For patients on eltrombopag therapy, use of Dimension Lawrence TBIL is not recommended. Performed By: #### L 501.2450, L500.3400, L500.2500, L501.4020 ####[facility] [address] [place], [address] Bilirubin.direct [Mass/Vol] 0.08 mg/dL Normal 0.00-0.30 [facility] Comment on above: Order Comment: 'TROP ' Serial specimen #1, #2 or #3: 1 Performed By: #### L 501.2450, L500.3400, L500.2500, L501.4020 ####[facility] [address] [place], [address] Globulin (S) [Mass/Vol] 3.6 g/dL Normal 2.2-4.2 [facility] Comment on above: Order Comment: 'TROP ' Serial specimen #1, #2 or #3: 1 Performed By: #### L 501.2450, L500.3400, L500.2500, L501.4020 ####[facility] [address] [place], [address] T PROT 7.1 g/dL Normal 6.4-8.2 [facility] Comment on above: Order Comment: 'TROP ' Serial specimen #1, #2 or #3: 1 Performed By: #### L 501.2450, L500.3400, L500.2500, L501.4020 ####[facility] [address] [place], [address] MCV (mean corpuscular volume ) determinationOrdered By: Albert Sykes on 05-09-2024 MCV (RBC) [Entitic vol] 91.9 fL 81-99 [facility] MR/ATQAQDEA1hn 05-09-2024 MR/POSTOPAN2 Normal [facility] Mean corpuscular hemoglobin (MCH) determinationOrdered By: Albert Sykes on 05-09-2024 MCH (RBC) [Entitic mass] 30.8 pg 27.0-32.0 [facility] Mean corpuscular hemoglobin concentration (MCHC) determinationOrdered By: Albert Sykes on 05-09-2024 MCHC (RBC) [Mass/Vol] 33.5 g/dL 32-36 [facility] Mean platelet volume determi nationOrdered By: Albert Sykes on 05-09-2024 Platelet mean volume (Bld) [Entitic vol] 8.5 fL 6.2-12.0 [facility] Platelet countOrdered By: Hunter Sykes on 05-09-2024 Platelets (Bld) [#/Vol] 305 10*3/uL 150-450 [facility] Potassium measurementOrdered By: Albert Sykes on 05-09-2024 Potassium [Moles/Vol] 3.5 mmol/L 3.5-5.1 [facility] RBC Auto (Bld) [#/Vol]Ordere d By: Albert Sykes on 05-09-2024 RBC (Bld) [#/Vol] 4.22 10*6/uL 4.2-5.4 [facility] Serum anion gap measurementO rdered By: Albert Sykes on 05-09-2024 Anion gap [Moles/Vol] 5 mmol/L 5-15 [facility] Serum globulin measurementOr dered By: Albert Sykes on 05-09-2024 Globulin (S) [Mass/Vol] 3.6 g/dL 2.2-4.2 [facility] Serum or plasma alanine irwin otransferase (ALT) measurementOrdered By: Albert Sykes on 05-09-2024 ALT [Catalytic activity/Vol] 32 U/L 13-56 [facility] Serum or plasma albumin marianna urement (mass/volume)Ordered By: Albert Sykes on 05-09-2024 Albumin [Mass/Vol] 3.5 g/dL 3.2-5.0 [facility] Serum or plasma alkaline caity sphatase measurementOrdered By: Albert Sykes on 05-09-2024 ALP [Catalytic activity/Vol] 78 U/L 45-117 [facility] Serum or plasma calcium marianna urement (mass/volume)Ordered By: Albert Sykes on 05-09-2024 Calcium [Mass/Vol] 8.3 mg/dL Low 8.5-10.1 [facility] Serum or plasma creatinine m easurement (mass/volume)Ordered By: Albert Sykes on 05-09-2024 Creatinine [Mass/Vol] 0.88 mg/dL 0.55-1.02 [facility] Comment on above: The validity of the calculated GFR & GFRAA in patients over 70 years has not been determined. Clinical correlation is essential. Serum or plasma urea nitroge n measurement (mass/volume)Ordered By: Albert Sykes on 05-09-2024 Urea nitrogen [Mass/Vol] 9 mg/dL 7-18 [facility] Sodium levelOrdered By: Berenice Sykes on 05-09-2024 Sodium [Moles/Vol] 139 mmol/L 136-145 [facility] Total proteinOrdered By: Aníbal Sykes on 05-09-2024 Protein [Mass/Vol] 7.1 g/dL 6.4-8.2 [facility] Troponin IOrdered By: Albert Sykes on 05-09-2024 Troponin I High Sensitivity 5 pg/mL 3.0-54.0 [facility] Comment on above: Please Note: New [place] t Units and Gender Specific Reference Ranges. For more information see Policy Stat Procedure Lawrence High Sensitivity Troponin (TNIH) and attachments. White blood cell (WBC) count Ordered By: Albert Sykes on 05-09-2024 WBC (Bld) [#/Vol] 7.0 10*3/uL 4.4-11.0 [facility] EGD Reporton 05-08-2024 EGD Report Normal [facility] H Pylori (initial)on 024 H Pylori (initial) Normal [facility] Comment on above: Performed By: #### P H.PYLORI ####[facility] [address] [place], [place], [address] MR/POSTOP.ANEon 05-08-2024 MR/POSTOP.ANE Normal [facility] Surgery Specimen Level Donita 05-08-2024 Surgery Specimen Level IV Normal [facility] Comment on above: Performed By: #### P SUIV ####[facility] [address] [place], [place], [address] Bracelet Former Office Visit Reporton 05-07-2024 Bracelet Former Office Visit Report Normal [facility] M7400.3302on 05-01-2024 M7400.3302 Normal [facility] Comment on above: Performed By: #### M 100.6796, M100.0605, L7000.0700, L7000.0750, M7400.3302, M100.7900, M600.5000, M100.637, L7000.0300 ####[facility] [address] [place], [address] Ova and Parasites 8623on OP Normal [facility] Comment on above: Performed By: #### M 100.6796, M100.0605, L7000.0700, L7000.0750, M7400.3302, M100.7900, M600.5000, M100.637, L7000.0300 ####[facility] [address] [place], [address] L7000.0750on 04-28-2024 P ELASTASE,FECA > 800 Normal >200 [facility] Comment on above: Result Comment: Resu lt Units: ug Elast./g Severe Pancreatic Insufficiency: <100 Moderate Pancreatic Insufficiency: 100 - 200 Normal: >200Performed at: [address] [id number] Director: Dave Palmer MD, Phone: [phone] Performed By: #### M 100.6796, M100.0605, L7000.0700, L7000.0750, M7400.3302, M100.7900, M600.5000, M100.637, L7000.0300 ####[facility] [address] [place], [place], [address] Calprotectin, Stoolon [address] 96 ug/g Normal 0-120 [facility] Comment on above: Order Comment: Test( s) [id number]-Ddzb, Neutral; 139892-Dwfo, Totalwas developed and its performance characteristicsdetermined by [employer]. It has not been cleared or approvedby the Food and Drug Administration. Result Comment: Conc entration Interpretation Follow-Up< 5 - 50 ug/g Normal None>50 -120 ug/g Borderline Re-evaluate in 4-6 weeks >120 ug/g Abnormal Repeat as clinically indicatedPerformed at: [facility] LabBrian [id number] [place], [place] [id number] Director: Dwight Estrada PhD, Phone: [phone] at: [facility] [address] [id number] Director: Dave Palmer MD, Phone: [phone] Performed By: #### M 100.6796, M100.0605, L7000.0700, L7000.0750, M7400.3302, M100.7900, M600.5000, M100.637, L7000.0300 ####[facility] [address] [place], [place], [address] Fecal Fat, Qualitativeon FATS, NEUTRAL Normal Normal . [facility] Comment on above: Order Comment: Test( s) [id number]-Fuil, Neutral; 267459-Crmr, Totalwas developed and its performance characteristicsdetermined by [employer]. It has not been cleared or approvedby the Food and Drug Administration. Result Comment: Norm al (<60 Droplets/HPF) Performed By: #### M 100.6796, M100.0605, L7000.0700, L7000.0750, M7400.3302, M100.7900, M600.5000, M100.637, L7000.0300 ####[facility] [address] [place], [place], [phone] FATS, TOTAL Normal Normal . [facility] Comment on above: Order Comment: Test( s) 656060-Jarb, Neutral; 839704-Kdlg, Totalwas developed and its performance characteristicsdetermined by [employer]. It has not been cleared or approvedby the Food and Drug Administration. Result Comment: Norm al (<100 Droplets/HPF) Performed By: #### M 100.6796, M100.0605, L7000.0700, L7000.0750, M7400.3302, M100.7900, M600.5000, M100.637, L7000.0300 ####[facility] [address] [place], [address] CBC W/Diff, Automatedon 10-2 Absolute Lymph 2.31 X10 3/uL Normal 0.83-4.51 [facility] Comment on above: Performed By: #### L 100.0100, L500.4050 ####[facility] [address] [place], [address] Absolute Neut 3.3 X10 3/uL Normal 2.0-7.7 [facility] Comment on above: Performed By: #### L 100.0100, L500.4050 ####[facility] [address] [place], [address] Basophils/100 WBC (Bld) 0.5 % Normal 0-1 [facility] Comment on above: Performed By: #### L 100.0100, L500.4050 ####[facility] [address] [place], [address] Eosinophils/100 WBC (Bld) 2.1 % Normal 0-5 [facility] Comment on above: Performed By: #### L 100.0100, L500.4050 ####[facility] [address] [place], [address] Erythrocyte distribution width (RBC) [Ratio] 13.0 % Normal 11.6-14.6 [facility] Comment on above: Performed By: #### L 100.0100, L500.4050 ####[facility] [address] [place], [address] Hematocrit (Bld) [Volume fraction] 38.1 % Normal 37-47 [facility] Comment on above: Performed By: #### L 100.0100, L500.4050 ####[facility] [address] [place], [address] Hemoglobin (Bld) [Mass/Vol] 12.9 g/dL Normal 12.0-15.0 [facility] Comment on above: Performed By: #### L 100.0100, L500.4050 ####[facility] [address] [place], [address] IG% 0.200 Normal 0.0-0.9 [facility] Comment on above: Result Comment: IG% - Immature Granulocytes (promyelocytes, myelocytes andmetamyelocytes) > 1% indicates that a LEFT SHIFT is Present. Performed By: #### L 100.0100, L500.4050 ####[facility] [address] [place], [address] Lymphocytes/100 WBC (Bld) 37.3 % Normal 19-41 [facility] Comment on above: Performed By: #### L 100.0100, L500.4050 ####[facility] [address] [place], [address] MCH (RBC) [Entitic mass] 30.9 pg Normal 27.0-32.0 [facility] Comment on above: Performed By: #### L 100.0100, L500.4050 ####[facility] [address] [place], [address] MCHC (RBC) [Mass/Vol] 33.9 g/dL Normal 32-36 [facility] Comment on above: Performed By: #### L 100.0100, L500.4050 ####[facility] [address] [place], [address] MCV (RBC) [Entitic vol] 91.4 fL Normal 81-99 [facility] Comment on above: Performed By: #### L 100.0100, L500.4050 ####[facility] [address] [place], [address] Monocytes/100 WBC (Bld) 6.8 % Normal 0-10 [facility] Comment on above: Performed By: #### L 100.0100, L500.4050 ####[facility] [address] [place], [address] Neutrophils/100 WBC (Bld) 53.1 % Normal 47-70 [facility] Comment on above: Performed By: #### L 100.0100, L500.4050 ####[facility] [address] [place], [address] Nucleated RBC (Bld) [#/Vol] 0 10*3/uL Normal 0-5 [facility] Comment on above: Performed By: #### L 100.0100, L500.4050 ####[facility] [address] [place], [address] Platelet mean volume (Bld) [Entitic vol] 9.9 fL Normal 6.2-12.0 [facility] Comment on above: Performed By: #### L 100.0100, L500.4050 ####[facility] [address] [place], [address] Platelets (Bld) [#/Vol] 293 10*3/uL Normal 150-450 [facility] Comment on above: Performed By: #### L 100.0100, L500.4050 ####[facility] [address] [place], [address] RBC (Bld) [#/Vol] 4.17 10*6/uL Low 4.2-5.4 [facility] Comment on above: Performed By: #### L 100.0100, L500.4050 ####[facility] [address] [place], [address] RDW SD 42.9 fl Normal 35.1-43.9 [facility] Comment on above: Performed By: #### L 100.0100, L500.4050 ####[facility] [address] [place], [address] WBC (Bld) [#/Vol] 6.2 10*3/uL Normal 4.4-11.0 [facility] Comment on above: Performed By: #### L 100.0100, L500.4050 ####[facility] [address] [place], [address] CDIFF (PCR)on 04-23-2024 CDIFF Pending 027 027 NAP1-B1 Presumptive Negative *for epidemiolologic???use C. Diff PCR Negative- No toxigenic C. Diff Detected Normal [facility] Comment on above: Performed By: #### M 100.6796, M100.0605, L7000.0700, L7000.0750, M7400.3302, M100.7900, M600.5000, M100.637, L7000.0300 ####[facility] [address] [place], [address] Comprehensive Metabolic Prof ilon 04-23-2024 Albumin [Mass/Vol] 3.2 g/dL Normal 3.2-5.0 [facility] Comment on above: Performed By: #### L 100.0100, L500.4050 ####[facility] [address] [place], [address] Albumin/Globulin [Mass ratio] 0.8 {ratio} Low 0.9-2.4 [facility] Comment on above: Performed By: #### L 100.0100, L500.4050 ####[facility] [address] [place], [address] ALK P 67 U/L Normal 45-117 [facility] Comment on above: Performed By: #### L 100.0100, L500.4050 ####[facility] [address] [place], [address] ALT [Catalytic activity/Vol] 30 U/L Normal 13-56 [facility] Comment on above: Performed By: #### L 100.0100, L500.4050 ####[facility] [address] [place], [address] AST [Catalytic activity/Vol] 40 U/L High 15-37 [facility] Comment on above: Result Comment: Mode rate Hemolysis, Result may be falsely increased. Performed By: #### L 100.0100, L500.4050 ####[facility] [address] [place], [address] Bilirubin [Mass/Vol] 0.60 mg/dL Normal 0.20-1.00 [facility] Comment on above: Result Comment: For patients on eltrombopag therapy, use of Dimension Lawrence TBIL is not recommended. Performed By: #### L 100.0100, L500.4050 ####[facility] [address] [place], [address] BUN/CRE 22.0 RATIO High 10-20 [facility] Comment on above: Performed By: #### L 100.0100, L500.4050 ####[facility] [address] [place], [address] CA,Total 9.0 mg/dL Normal 8.5-10.1 [facility] Comment on above: Performed By: #### L 100.0100, L500.4050 ####[facility] [address] [place], [address] Chloride [Moles/Vol] 107 mmol/L Normal 98-107 [facility] Comment on above: Performed By: #### L 100.0100, L500.4050 ####[facility] [address] [place], [place], [address] CO2 [Moles/Vol] 27.0 mmol/L Normal 21.0-32.0 [facility] Comment on above: Performed By: #### L 100.0100, L500.4050 ####[facility] [address] [place], [address] Creatinine [Mass/Vol] 0.77 mg/dL Normal 0.55-1.02 [facility] Comment on above: Result Comment: The validity of the calculated GFR GFRAA in patients over70 years has not been determined. Clinical correlation isessential. Performed By: #### L 100.0100, L500.4050 ####[facility] [address] [place], [address] EST GFR - AA 103 mL/min Normal >60 [facility] Comment on above: Result Comment: Afri can Cymraes GFR Calc Performed By: #### L 100.0100, L500.4050 ####[facility] [address] [place], [address] GAP 1 Low 5-15 [facility] Comment on above: Performed By: #### L 100.0100, L500.4050 ####[facility] [address] [place], [address] GFR/1.73 sq M.predicted among non-blacks MDRD (S/P/Bld) [Vol rate/Area] 85 mL/min/{1.73_m2} Normal >60 [facility] Comment on above: Result Comment: Non- GFR Calc Performed By: #### L 100.0100, L500.4050 ####[facility] [address] [place], [address] Globulin (S) [Mass/Vol] 4.2 g/dL Normal 2.2-4.2 [facility] Comment on above: Performed By: #### L 100.0100, L500.4050 ####[facility] [address] [place], [address] Glucose [Mass/Vol] 95 mg/dL Normal 74-106 [facility] Comment on above: Performed By: #### L 100.0100, L500.4050 ####[facility] [address] [place], [address] Potassium [Moles/Vol] 4.4 mmol/L Normal 3.5-5.1 [facility] Comment on above: Result Comment: Mode rate Hemolysis, Result may be falsely increased. Performed By: #### L 100.0100, L500.4050 ####[facility] [address] [place], [address] Sodium [Moles/Vol] 135 mmol/L Low 136-145 [facility] Comment on above: Performed By: #### L 100.0100, L500.4050 ####[facility] [address] [place], [address] T PROT 7.4 g/dL Normal 6.4-8.2 [facility] Comment on above: Performed By: #### L 100.0100, L500.4050 ####[facility] [address] [place], [address] Urea nitrogen [Mass/Vol] 17 mg/dL Normal 7-18 [facility] Comment on above: Performed By: #### L 100.0100, L500.4050 ####[facility] [address] [place], [address] ENTERIC PATHOGEN PANEL STOOL on 04-23-2024 EP PANEL CAMPYLOBACTER Not Detected Norovirus Not Detected Rotavirus Not Detected Salmonella Not Detected Shiga Toxin Not Detected Shigella sp. Not Detected VIBRIO Not Detected Yersinia Not Detected Normal [facility] Comment on above: Performed By: #### M 100.6796, M100.0605, L7000.0700, L7000.0750, M7400.3302, M100.7900, M600.5000, M100.637, L7000.0300 ####[facility] [address] [place], [address] Stool Lactoferrin/WBCon 04-02 WBCST Normal Reference [place] = Negative Fecal WBC Lactoferrin Negative: No Fecal WBC Lactoferrin present Normal [facility] Comment on above: Performed By: #### M 100.6796, M100.0605, L7000.0700, L7000.0750, M7400.3302, M100.7900, M600.5000, M100.637, L7000.0300 ####[facility] [address] [place], [address] Stool Occult Blood iFOBon STOB Negative Normal [facility] Comment on above: Performed By: #### M 100.6796, M100.0605, L7000.0700, L7000.0750, M7400.3302, M100.7900, M600.5000, M100.637, L7000.0300 ####[facility] [address] [place], [address] Gastric Emptying Studyon Gastric Emptying Study Normal [facility] Gastroenterology Visit Repor ton 04-07-2024 Gastroenterology Visit Report Normal [facility] Abdomen/Pelvis W IV Cont ONL Yon 03-24-2024 Abdomen/Pelvis W IV Cont ONLY Normal [facility] Basic Metabolic Profile (BMP )on 03-24-2024 BUN/CRE 20.5 RATIO High 04-20 [facility] Comment on above: Performed By: #### L 500.2500, L501.2450, L100.0100, L500.3400 ####[facility] [address] [place], [address] CA,Total 9.3 mg/dL Normal 8.5-10.1 [facility] Comment on above: Performed By: #### L 500.2500, L501.2450, L100.0100, L500.3400 ####[facility] [address] [place], [address] Chloride [Moles/Vol] 107 mmol/L Normal 98-107 [facility] Comment on above: Performed By: #### L 500.2500, L501.2450, L100.0100, L500.3400 ####[facility] [address] [place], [address] CO2 [Moles/Vol] 25.0 mmol/L Normal 21.0-32.0 [facility] Comment on above: Performed By: #### L 500.2500, L501.2450, L100.0100, L500.3400 ####[facility] [address] [place], [address] Creatinine [Mass/Vol] 0.83 mg/dL Normal 0.55-1.02 [facility] Comment on above: Result Comment: The validity of the calculated GFR GFRAA in patients over70 years has not been determined. Clinical correlation isessential. Performed By: #### L 500.2500, L501.2450, L100.0100, L500.3400 ####[facility] [address] [place], [address] ECRCL 89.21 ml/min Normal [facility] Comment on above: Performed By: #### L 500.2500, L501.2450, L100.0100, L500.3400 ####[facility] [address] [place], [address] EST GFR - AA 95 mL/min Normal >60 [facility] Comment on above: Result Comment: Afri can Cymraes GFR Calc Performed By: #### L 500.2500, L501.2450, L100.0100, L500.3400 ####[facility] [address] [place], [address] GAP 8 Normal 5-15 [facility] Comment on above: Performed By: #### L 500.2500, L501.2450, L100.0100, L500.3400 ####[facility] [address] [place], [address] GFR/1.73 sq M.predicted among non-blacks MDRD (S/P/Bld) [Vol rate/Area] 78 mL/min/{1.73_m2} Normal >60 [facility] Comment on above: Result Comment: Non- GFR Calc Performed By: #### L 500.2500, L501.2450, L100.0100, L500.3400 ####[facility] [address] [place], [address] Glucose [Mass/Vol] 99 mg/dL Normal 74-106 [facility] Comment on above: Performed By: #### L 500.2500, L501.2450, L100.0100, L500.3400 ####[facility] [address] [place], [address] Potassium [Moles/Vol] 3.7 mmol/L Normal 3.5-5.1 [facility] Comment on above: Performed By: #### L 500.2500, L501.2450, L100.0100, L500.3400 ####[facility] [address] [place], [address] Sodium [Moles/Vol] 140 mmol/L Normal 136-145 [facility] Comment on above: Performed By: #### L 500.2500, L501.2450, L100.0100, L500.3400 ####[facility] [address] [place], [address] Urea nitrogen [Mass/Vol] 17 mg/dL Normal 7-18 [facility] Comment on above: Performed By: #### L 500.2500, L501.2450, L100.0100, L500.3400 ####[facility] [address] [place], [address] CBC W/Diff, Automatedon 09-2 -2023 Absolute Lymph 2.58 X10 3/uL Normal 0.83-4.51 [facility] Comment on above: Performed By: #### L 500.2500, L501.2450, L100.0100, L500.3400 ####[facility] [address] [place], [address] Absolute Neut 3.1 X10 3/uL Normal 2.0-7.7 [facility] Comment on above: Performed By: #### L 500.2500, L501.2450, L100.0100, L500.3400 ####[facility] [address] [place], [address] Basophils/100 WBC (Bld) 0.5 % Normal 0-1 [facility] Comment on above: Performed By: #### L 500.2500, L501.2450, L100.0100, L500.3400 ####[facility] [address] [place], [address] Eosinophils/100 WBC (Bld) 1.8 % Normal 0-5 [facility] Comment on above: Performed By: #### L 500.2500, L501.2450, L100.0100, L500.3400 ####[facility] [address] [place], [address] Erythrocyte distribution width (RBC) [Ratio] 12.9 % Normal 11.6-14.6 [facility] Comment on above: Performed By: #### L 500.2500, L501.2450, L100.0100, L500.3400 ####[facility] [address] [place], [address] Hematocrit (Bld) [Volume fraction] 42.0 % Normal 37-47 [facility] Comment on above: Performed By: #### L 500.2500, L501.2450, L100.0100, L500.3400 ####[facility] [address] [place], [address] Hemoglobin (Bld) [Mass/Vol] 13.9 g/dL Normal 12.0-15.0 [facility] Comment on above: Performed By: #### L 500.2500, L501.2450, L100.0100, L500.3400 ####[facility] [address] [place], [address] IG% 0.200 Normal 0.0-0.9 [facility] Comment on above: Result Comment: IG% - Immature Granulocytes (promyelocytes, myelocytes andmetamyelocytes) > 1% indicates that a LEFT SHIFT is Present. Performed By: #### L 500.2500, L501.2450, L100.0100, L500.3400 ####[facility] [address] [place], [address] Lymphocytes/100 WBC (Bld) 41.3 % High 19-41 [facility] Comment on above: Performed By: #### L 500.2500, L501.2450, L100.0100, L500.3400 ####[facility] [address] [place], [address] MCH (RBC) [Entitic mass] 30.3 pg Normal 27.0-32.0 [facility] Comment on above: Performed By: #### L 500.2500, L501.2450, L100.0100, L500.3400 ####[facility] [address] [place], [address] MCHC (RBC) [Mass/Vol] 33.1 g/dL Normal 32-36 [facility] Comment on above: Performed By: #### L 500.2500, L501.2450, L100.0100, L500.3400 ####[facility] [address] [place], [address] MCV (RBC) [Entitic vol] 91.7 fL Normal 81-99 [facility] Comment on above: Performed By: #### L 500.2500, L501.2450, L100.0100, L500.3400 ####[facility] [address] [place], [address] Monocytes/100 WBC (Bld) 6.9 % Normal 0-10 [facility] Comment on above: Performed By: #### L 500.2500, L501.2450, L100.0100, L500.3400 ####[facility] [address] [place], [address] Neutrophils/100 WBC (Bld) 49.3 % Normal 47-70 [facility] Comment on above: Performed By: #### L 500.2500, L501.2450, L100.0100, L500.3400 ####[facility] [address] [place], [address] Nucleated RBC (Bld) [#/Vol] 0 10*3/uL Normal 0-5 [facility] Comment on above: Performed By: #### L 500.2500, L501.2450, L100.0100, L500.3400 ####[facility] [address] [place], [address] Platelet mean volume (Bld) [Entitic vol] 9.0 fL Normal 6.2-12.0 [facility] Comment on above: Performed By: #### L 500.2500, L501.2450, L100.0100, L500.3400 ####[facility] [address] [place], [address] Platelets (Bld) [#/Vol] 322 10*3/uL Normal 150-450 [facility] Comment on above: Performed By: #### L 500.2500, L501.2450, L100.0100, L500.3400 ####[facility] [address] [place], [address] RBC (Bld) [#/Vol] 4.58 10*6/uL Normal 4.2-5.4 [facility] Comment on above: Performed By: #### L 500.2500, L501.2450, L100.0100, L500.3400 ####[facility] [address] [place], [address] RDW SD 43.1 fl Normal 35.1-43.9 [facility] Comment on above: Performed By: #### L 500.2500, L501.2450, L100.0100, L500.3400 ####[facility] [address] [place], [address] WBC (Bld) [#/Vol] 6.2 10*3/uL Normal 4.4-11.0 [facility] Comment on above: Performed By: #### L 500.2500, L501.2450, L100.0100, L500.3400 ####[facility] [address] [place], [address] Emergency Department Summary on 03-24-2024 Emergency Department Summary Normal [facility] Lipaseon 03-24-2024 Lipase [Catalytic activity/Vol] 36 U/L Normal 13-75 [facility] Comment on above: Result Comment: Arcadio de la paz note:LIPASE revised reference range effective 22.New Lipase methodology. Expected to produce lower valuesthan the previous assay method.NEW Reference Range: 13 - 75 U/L Performed By: #### L 500.2500, L501.2450, L100.0100, L500.3400 ####[facility] [address] [place], [address] Liver Profileon 03-24-2024 Albumin [Mass/Vol] 3.7 g/dL Normal 3.2-5.0 [facility] Comment on above: Performed By: #### L 500.2500, L501.2450, L100.0100, L500.3400 ####[facility] [address] [place], [address] ALK P 81 U/L Normal 45-117 [facility] Comment on above: Performed By: #### L 500.2500, L501.2450, L100.0100, L500.3400 ####[facility] [address] [place], [address] ALT [Catalytic activity/Vol] 32 U/L Normal 13-56 [facility] Comment on above: Performed By: #### L 500.2500, L501.2450, L100.0100, L500.3400 ####[facility] [address] [place], [address] AST [Catalytic activity/Vol] 25 U/L Normal 15-37 [facility] Comment on above: Performed By: #### L 500.2500, L501.2450, L100.0100, L500.3400 ####[facility] [address] [place], [address] Bilirubin [Mass/Vol] 0.40 mg/dL Normal 0.20-1.00 [facility] Comment on above: Result Comment: For patients on eltrombopag therapy, use of Dimension Lawrence TBIL is not recommended. Performed By: #### L 500.2500, L501.2450, L100.0100, L500.3400 ####[facility] [address] [place], [address] Bilirubin.direct [Mass/Vol] 0.13 mg/dL Normal 0.00-0.30 [facility] Comment on above: Performed By: #### L 500.2500, L501.2450, L100.0100, L500.3400 ####[facility] [address] [place], [address] Globulin (S) [Mass/Vol] 4.2 g/dL Normal 2.2-4.2 [facility] Comment on above: Performed By: #### L 500.2500, L501.2450, L100.0100, L500.3400 ####[facility] [address] [place], [address] T PROT 7.9 g/dL Normal 6.4-8.2 [facility] Comment on above: Performed By: #### L 500.2500, L501.2450, L100.0100, L500.3400 ####[facility] [address] [place], [address] Urinalysis, Completeon 03-24 EPI,SQUAMOUS 5-10 SEEN Normal 5-10 [facility] Comment on above: Order Comment: CLEAN CATCH Performed By: #### L 400.0001 ####[facility] [address] [place], [address] BACTERIA 1+ /hpf Normal None Seen [facility] Comment on above: Order Comment: CLEAN CATCH Performed By: #### L 400.0001 ####[facility] [address] [place], [address] WBC 0-5 SEEN Normal 0-5 [facility] Comment on above: Order Comment: CLEAN CATCH Performed By: #### L 400.0001 ####[facility] [address] [place], [address] Mucus Ql (Urine sed) 0 SEEN Normal [facility] Comment on above: Order Comment: CLEAN CATCH Performed By: #### L 400.0001 ####[facility] [address] [place], [address] RBC 0 SEEN Normal 0-5 [facility] Comment on above: Order Comment: CLEAN CATCH Performed By: #### L 400.0001 ####[facility] [address] [place], [address] SCRN MAMM (CAD)W/REBEKAH BILATo n 02-22-2024 SCRN MAMM (CAD)W/REBEKAH BILAT Normal [facility] Basic Metabolic Profile (BMP )on 02-18-2024 BUN/CRE 14.3 RATIO Normal 10-20 [facility] Comment on above: Order Comment: Order Date: 02/06/24Order Info: 666-07 - BMP Performed By: #### L 500.2500 ####[facility] [address] [place], [address] CA,Total 9.1 mg/dL Normal 8.5-10.1 [facility] Comment on above: Order Comment: Order Date: 02/06/24Order Info: 666-07 - BMP Performed By: #### L 500.2500 ####[facility] [address] [place], [address] Chloride [Moles/Vol] 108 mmol/L High 98-107 [facility] Comment on above: Order Comment: Order Date: 02/06/24Order Info: 666-07 - BMP Performed By: #### L 500.2500 ####[facility] [address] [place], [address] CO2 [Moles/Vol] 28.0 mmol/L Normal 21.0-32.0 [facility] Comment on above: Order Comment: Order Date: 02/06/24Order Info: 666-07 - BMP Performed By: #### L 500.2500 ####[facility] [address] [place], [address] Creatinine [Mass/Vol] 0.91 mg/dL Normal 0.55-1.02 [facility] Comment on above: Order Comment: Order Date: 02/06/24Order Info: 666- - BMP Result Comment: The validity of the calculated GFR GFRAA in patients over70 years has not been determined. Clinical correlation isessential. Performed By: #### L 500.2500 ####[facility] [address] [place], [address] EST GFR - AA 86 mL/min Normal >60 [facility] Comment on above: Order Comment: Order Date: 02/06/24Order Info: 666-07 - BMP Result Comment: Afri can Cymraes GFR Calc Performed By: #### L 500.2500 ####[facility] [address] [place], [address] GAP 2 Low 5-15 [facility] Comment on above: Order Comment: Order Date: 02/06/24Order Info: 666-07 - BMP Performed By: #### L 500.2500 ####[facility] [address] [place], [address] GFR/1.73 sq M.predicted among non-blacks MDRD (S/P/Bld) [Vol rate/Area] 71 mL/min/{1.73_m2} Normal >60 [facility] Comment on above: Order Comment: Order Date: 02/06/24Order Info: 666-07 - BMP Result Comment: Non- GFR Calc Performed By: #### L 500.2500 ####[facility] [address] [place], [address] Glucose [Mass/Vol] 104 mg/dL Normal 74-106 [facility] Comment on above: Order Comment: Order Date: 02/06/24Order Info: 666-07 - BMP Result Comment: Fast ing Glucose result from 100 to 125 mg/dLsuggests IMPAIRED HOMEOSTASIS per A.D.A. criteria. Performed By: #### L 500.2500 ####[facility] [address] [place], [address] Potassium [Moles/Vol] 4.3 mmol/L Normal 3.5-5.1 [facility] Comment on above: Order Comment: Order Date: 02/06/24Order Info: 666-07 - BMP Performed By: #### L 500.2500 ####[facility] [address] [place], [address] Sodium [Moles/Vol] 138 mmol/L Normal 136-145 [facility] Comment on above: Order Comment: Order Date: 02/06/24Order Info: 0667-1 - BMP Performed By: #### L 500.2500 ####[facility] [address] [place], [address] Urea nitrogen [Mass/Vol] 13 mg/dL Normal 7-18 [facility] Comment on above: Order Comment: Order Date: 02/06/24Order Info: 0667-1 - BMP Performed By: #### L 500.2500 ####[facility] [address] [place], [address] STREP A MOLECULAR (POC)on Procedural Control Valid [facility] Strep A (POCT) Negative Negative [facility] XR Finger - right AP and Lat eral and obliqueon 09-22-2023 IMPRESSION: No acute osseous abnormality Power Bender Operator: [facility] Transcribe Date/Time: Sep 22 2023 9:12A Dictated by : RUSS DILLON MD This examination was interpreted and the report reviewed and electronically signed by: RUSS DILLON MD on Sep 22 2023 9:13AM [facility] DIVISION OF RADIOLOGY * * [...] spaces are maintained. DIVISION OF RADIOLOGY Provider, [facility] Korina [facility] - 09/22/2023 * * *Final Report* * [...] maintained. IMPRESSION IMPRESSION: No acute osseous abnormality Power Bender Operator: [facility] Transcribe Date/Time: Sep 22 2023 9:12A Dictated by : RUSS DILLON MD This examination was interpreted and the report reviewed and electronically signed by: RUSS DILLON MD on Sep 22 2023 9:13AM EST [facility] Radiology Study observation (narrative) [facility] XR Finger - right AP and Lat eral and obliqueOrdered By: Ccf Provider on 09-22-2023 [facility] CNCOon 08-18-2023 CNCO Letter Text Normal [facility] CNDSon 08-18-2023 DS HNO ID: [id number] Author: ZAINAB CROFT MD Service: Hospital Medicine [...] DATE: September 14, 2023 TIME: 7:36 PM [facility] CONSULT PROGon 08-18-2023 CONSULT PROG HNO ID: [id number] Author: HELEN LY APRN.MECHANICAL INSPECTOR Service: Gastroenterology Author Type: Nurse Practitioner Type: [...] myself/Dr Miranda as she prefers. Helen Ly APRN.MECHANICAL INSPECTOR August 18, 2023 1:49 PM [phone] [facility] NURSING PROGon 08-18-2023 NURSING PROG HNO ID: [id number] Author: JAYME STAHL RN Service: ? Author Type: Registered [...] patient, denies any questions at this time. [facility] NURSING PROG HNO ID: [id number] Author: MIGUEL MOULTON RN Service: Nursing Author Type: Registered Nurse Type: Nursing Progress Note Filed: 08/18/2023 05:48 Note Text: Daily Note: Report completed. Patient is resting comfortably with call light in reach. 0548 Paged out, patient is having persistent nausea. Got prn zofran - can she have anything else? Thanks [facility] CBC panel Auto (Bld)on 08-17 Erythrocyte distribution width (RBC) [Ratio] 13.0 % Normal 11.5-15.0 [facility] Comment on above: Order Comment: Renetta la Type: BLOOD SPECIMEN Ordering Facility: [facility] Address: [address] [place] [address] Performed By: #### P TTAC #### [facility] CLIA [id number] [address] [place] [address] [place] Hematocrit (Bld) [Volume fraction] 38.8 % Normal 36.0-46.0 [facility] Comment on above: Order Comment: Renetta la Type: BLOOD SPECIMEN Ordering Facility: [facility] Address: [address] [place] [address] Performed By: #### P TTAC #### [facility] CLIA [id number] [address] [place] [address] [place] Hemoglobin (Bld) [Mass/Vol] 13.6 g/dL Normal 11.5-15.5 [facility] Comment on above: Order Comment: Speci men Type: BLOOD SPECIMEN Ordering Facility: [facility] Address: [address] [place] [address] Performed By: #### P TTAC #### [facility] CLIA [id number] [address] [place] [address] [place] MCH (RBC) [Entitic mass] 31.3 pg Normal 26.0-34.0 [facility] Comment on above: Order Comment: Speci men Type: BLOOD SPECIMEN Ordering Facility: [facility] Address: [address] [place] [address] Performed By: #### P TTAC #### [facility] CLIA [id number] [address] [place] [address] [place] MCHC (RBC) [Mass/Vol] 35.1 g/dL Normal 30.5-36.0 [facility] Comment on above: Order Comment: Speci men Type: BLOOD SPECIMEN Ordering Facility: [facility] Address: [address] [place] [address] Performed By: #### P TTAC #### [facility] CLIA [id number] [address] [place] [address] [place] MCV (RBC) [Entitic vol] 89.2 fL Normal 80.0-100.0 [facility] Comment on above: Order Comment: Speci men Type: BLOOD SPECIMEN Ordering Facility: [facility] Address: [address] [place] [address] Performed By: #### P TTAC #### [facility] CLIA [id number] [address] [place] [address] [place] Nucleated RBC (Bld) [#/Vol] 10*3/uL Normal <0.01 [facility] Comment on above: Order Comment: Speci men Type: BLOOD SPECIMEN Ordering Facility: [facility] Address: [address] [place] [address] Performed By: #### P TTAC #### [facility] CLIA [id number] [address] [place] [address] [place] Platelet mean volume (Bld) [Entitic vol] 8.5 fL Low 9.0-12.7 [facility] Comment on above: Order Comment: Speci men Type: BLOOD SPECIMEN Ordering Facility: [facility] Address: [address] [place] [address] Performed By: #### P TTAC #### [facility] CLIA [id number] [address] [place] [address] [place] Platelets (Bld) [#/Vol] 286 10*3/uL Normal 150-400 [facility] Comment on above: Order Comment: Speci men Type: BLOOD SPECIMEN Ordering Facility: [facility] Address: [address] [place] [address] Performed By: #### P TTAC #### [facility] CLIA [id number] [address] [place] [address] [place] RBC (Bld) [#/Vol] 4.35 10*6/uL Normal 3.90-5.20 [facility] Comment on above: Order Comment: Speci men Type: BLOOD SPECIMEN Ordering Facility: [facility] Address: [address] [place] [address] Performed By: #### P TTAC #### [facility] CLIA [id number] [address] [place] [address] [place] WBC (Bld) [#/Vol] 9.64 10*3/uL Normal 3.70-11.00 [facility] Comment on above: Order Comment: Speci men Type: BLOOD SPECIMEN Ordering Facility: [facility] Address: [address] [place] [address] Performed By: #### P TTAC #### [facility] CLIA [id number] [address] [place] [address] [place] CONSULTon 08-17-2023 CONSULT HNO ID: [id number] Author: BRYAN CARR MD Service: Gastroenterology Author [...] mg/5 m (more content not included)... Normal [facility] Comprehensive metabolic 2000 panelon 08-17-2023 Albumin [Mass/Vol] 4.1 g/dL Normal 3.9-4.9 [facility] Comment on above: Order Comment: Speci men Type: BLOOD SPECIMENOrdering Facility: [facility] Address: [address] [place] [address] Performed By: #### 2 4323-8 ####[facility]IA [id number] [place] [address] [place] ALP [Catalytic activity/Vol] 81 U/L Normal 34-123 [facility] Comment on above: Order Comment: Speci men Type: BLOOD SPECIMENOrdering Facility: [facility] Address: [address] [place] [address] Performed By: #### 2 4323-8 ####[facility]IA [id number] [place] [address] [place] ALT [Catalytic activity/Vol] 17 U/L Normal 7-38 [facility] Comment on above: Order Comment: Speci men Type: BLOOD SPECIMENOrdering Facility: [facility] Address: [address] [place] [address] Performed By: #### 2 4323-8 ####[facility]ORYCLIA [id number] [place] [address] [place] Anion gap [Moles/Vol] 12 mmol/L Normal 9-18 [facility] Comment on above: Order Comment: Speci men Type: BLOOD SPECIMENOrdering Facility: [facility] Address: [address] [place] [address] Performed By: #### 2 4323-8 ####[facility] [id number] [place] [address] [place] AST [Catalytic activity/Vol] 14 U/L Normal 13-35 [facility] Comment on above: Order Comment: Speci men Type: BLOOD SPECIMENOrdering Facility: [facility] Address: [address] [place] [address] Performed By: #### 2 4323-8 ####[facility] [id number] [place] [address] [place] Bilirubin [Mass/Vol] 0.3 mg/dL Normal 0.2-1.3 [facility] Comment on above: Order Comment: Speci men Type: BLOOD SPECIMENOrdering Facility: [facility] Address: [address] [place] [address] Performed By: #### 2 4323-8 ####[facility]IA [id number] [place] [address] [place] Calcium [Mass/Vol] 9.0 mg/dL Normal 8.5-10.2 [facility] Comment on above: Order Comment: Speci men Type: BLOOD SPECIMENOrdering Facility: [facility] Address: [address] [place] [address] Performed By: #### 2 4323-8 ####[facility]IA [id number] [place] [address] [place] Chloride [Moles/Vol] 106 mmol/L High 97-105 [facility] Comment on above: Order Comment: Speci men Type: BLOOD SPECIMENOrdering Facility: [facility] Address: [address] [place] [address] Performed By: #### 2 4323-8 ####[facility]IA [id number] [place] [address] [place] CO2 [Moles/Vol] 19 mmol/L Low 22-30 [facility] Comment on above: Order Comment: Speci men Type: BLOOD SPECIMENOrdering Facility: [facility] Address: [address] [place] [address] Performed By: #### 2 4323-8 ####[facility] [id number] [place] [id number] [place] Creatinine [Mass/Vol] 0.96 mg/dL Normal 0.58-0.96 [facility] Comment on above: Order Comment: Renetta abhianv Type: BLOOD SPECIMENOrdering Facility: [facility] Address: [address] [place] [address] Performed By: #### 2 4323-8 ####[facility] [id number] [place] [address] [place] Creatinine and Glomerular filtration rate.predicted panel (S/P/Bld) 74 mL/min/1.73m??? Normal >=60 [facility] Comment on above: Order Comment: Renetta abhinav Type: BLOOD SPECIMENOrdering Facility: [facility] Address: [address] [place] [address] Result Comment: Nura mated Glomerular Filtration Rate [...] actual GFR. Performed By: #### 2 4323-8 ####[facility]IA [id number] [place] [address] [place] Glucose [Mass/Vol] 119 mg/dL High 74-99 [facility] Comment on above: Order Comment: Renetta la Type: BLOOD SPECIMENOrdering Facility: [facility] Address: [address] [place] [address] Result Comment: The [place] Diabetes [employer] (ADA) provides guidance for cutoff [...] Standards of Medical Care in Diabetes 2016, [employer]. Diabetes Care. 2016.39(Suppl 1). Performed By: #### 2 4323-8 ####[facility] [id number] [place] [address] [place] Potassium [Moles/Vol] 4.1 mmol/L Normal 3.7-5.1 [facility] Comment on above: Order Comment: Renetta la Type: BLOOD SPECIMENOrdering Facility: [facility] Address: [address] [place] [address] Performed By: #### 2 4323-8 ####[facility] [id number] [place] [address] [place] Protein [Mass/Vol] 7.2 g/dL Normal 6.3-8.0 [facility] Comment on above: Order Comment: Renetta la Type: BLOOD SPECIMENOrdering Facility: [facility] Address: [address] [place] [address] Performed By: #### 2 4323-8 ####[facility] [id number] [place] [address] [place] Sodium [Moles/Vol] 137 mmol/L Normal 136-144 [facility] Comment on above: Order Comment: Renetta la Type: BLOOD SPECIMENOrdering Facility: [facility] Address: [address] [place] [address] Performed By: #### 2 4323-8 ####[facility]IA [id number] [place] [address] [place] Urea nitrogen [Mass/Vol] 15 mg/dL Normal 7-21 [facility] Comment on above: Order Comment: Renetta la Type: BLOOD SPECIMENOrdering Facility: [facility] Address: [address] [place] [address] Performed By: #### 2 4323-8 ####[facility] [id number] [address] [place] NURSING PROGon 08-17-2023 NURSING PROG HNO ID: [id number] Author: CRICKET LAU, RN Service: Nursing Author Type: Registered Nurse [...] restart eliquis 5mg twice a day. Normal [facility] PTT, ANTICOAGULANT THERAPYon 08-17-2023 aPTT Coag (PPP) [Time] 68.0 s High 23.0-32.4 [facility] Comment on above: Order Comment: Speci men Type: BLOOD SPECIMEN Ordering Facility: [facility] Address: [address] [place] [address] Performed By: #### 5 8410-2 #### [facility] CLIA [id number] [place] aPTT Coag (PPP) [Time] 100.8 s High 23.0-32.4 [facility] Comment on above: Order Comment: Maikoli men Type: BLOOD SPECIMENOrdering Facility: [facility] Address: [address] [place] [address] Performed By: #### P TTAC ####[facility] [id number] [address] [place] aPTT Coag (PPP) [Time] 78.0 s High 23.0-32.4 [facility] Comment on above: Order Comment: Speci men Type: BLOOD SPECIMENOrdering Facility: [facility] Address: [address] [place] [address] Performed By: #### P TTAC ####[facility]IA [id number] [place] [address] [place] aPTT PPPon 08-17-2023 aPTT Coag (PPP) [Time] 83.7 s High 23.0-32.4 [facility] Comment on above: Order Comment: Speci men Type: BLOOD SPECIMEN Ordering Facility: [facility] Address: [address] [place] [address] Performed By: #### 5 8410-2 #### [facility] CLIA [id number] [address] [place] [address] [place] CBC panel Auto (Bld)on 08-16 Erythrocyte distribution width (RBC) [Ratio] 13.2 % Normal 11.5-15.0 [facility] Comment on above: Order Comment: Speci men Type: BLOOD SPECIMEN Ordering Facility: [facility] Address: [address] [place] [address] Performed By: #### P TTAC #### [facility] CLIA [id number] [address] [place] [address] [place] Hematocrit (Bld) [Volume fraction] 40.1 % Normal 36.0-46.0 [facility] Comment on above: Order Comment: Speci men Type: BLOOD SPECIMEN Ordering Facility: [facility] Address: [address] [place] [address] Performed By: #### P TTAC #### [facility] CLIA [id number] [address] [place] [address] [place] Hemoglobin (Bld) [Mass/Vol] 13.6 g/dL Normal 11.5-15.5 [facility] Comment on above: Order Comment: Speci men Type: BLOOD SPECIMEN Ordering Facility: [facility] Address: [address] [place] [address] Performed By: #### P TTAC #### [facility] CLIA [id number] [address] [place] [address] [place] MCH (RBC) [Entitic mass] 30.6 pg Normal 26.0-34.0 [facility] Comment on above: Order Comment: Speci men Type: BLOOD SPECIMEN Ordering Facility: [facility] Address: [address] [place] [address] Performed By: #### P TTAC #### [facility] CLIA [id number] [address] [place] [address] [place] MCHC (RBC) [Mass/Vol] 33.9 g/dL Normal 30.5-36.0 [facility] Comment on above: Order Comment: Speci men Type: BLOOD SPECIMEN Ordering Facility: [facility] Address: [address] [place] [address] Performed By: #### P TTAC #### [facility] CLIA [id number] [address] [place] [address] [place] MCV (RBC) [Entitic vol] 90.3 fL Normal 80.0-100.0 [facility] Comment on above: Order Comment: Speci men Type: BLOOD SPECIMEN Ordering Facility: [facility] Address: [address] [place] [address] Performed By: #### P TTAC #### [facility] CLIA [id number] [address] [place] [address] [place] Nucleated RBC (Bld) [#/Vol] 10*3/uL Normal <0.01 [facility] Comment on above: Order Comment: Speci men Type: BLOOD SPECIMEN Ordering Facility: [facility] Address: [address] [place] [address] Performed By: #### P TTAC #### [facility] CLIA [id number] [address] [place] [address] [place] Platelet mean volume (Bld) [Entitic vol] 8.9 fL Low 9.0-12.7 [facility] Comment on above: Order Comment: Speci men Type: BLOOD SPECIMEN Ordering Facility: [facility] Address: [address] [place] [address] Performed By: #### P TTAC #### [facility] CLIA [id number] [address] [place] [address] [place] Platelets (Bld) [#/Vol] 276 10*3/uL Normal 150-400 [facility] Comment on above: Order Comment: Speci men Type: BLOOD SPECIMEN Ordering Facility: [facility] Address: [address] [place] [address] Performed By: #### P TTAC #### [facility] CLIA [id number] [address] [place] [address] [place] RBC (Bld) [#/Vol] 4.44 10*6/uL Normal 3.90-5.20 [facility] Comment on above: Order Comment: Speci men Type: BLOOD SPECIMEN Ordering Facility: [facility] Address: [address] [place] [address] Performed By: #### P TTAC #### [facility] CLIA [id number] [address] [place] [address] [place] WBC (Bld) [#/Vol] 5.37 10*3/uL Normal 3.70-11.00 [facility] Comment on above: Order Comment: Speci men Type: BLOOD SPECIMEN Ordering Facility: [facility] Address: [address] [place] [address] Performed By: #### P TTAC #### [facility] CLIA [id number] [address] [place] [address] [place] CONSULT PROGon 08-16-2023 CONSULT PROG HNO ID: [id number] Author: ROBY AYALA MD Service: Vascular Medicine Author Type: Physician Type: Consult Progress Note Filed: 08/16/2023 09:50 Note Text: CONSULT PROGRESS NOTE: VASCULAR MEDICINE SERVICE PATIENT NAME: Damari [place]iso SERVICE DATE: 08/16/2023 SERVICE TIME: 9:47 AM [...] Plan for foreign body retrieval at [facility] [place] today. Plan: -Will remain on heparin infusion [...] (mg/dL) Date Value 06/07/2023 120 LDL Chol, [place] (mg/dL) Date Value 02/15/2012 108 Triglyceride (mg/dL) Date Value 06/07/2023 156 AST (U/L) Date Value 08/14/2023 20 05/24/2021 58 NT Pro BNP (pg/mL) Date Value 06/01/2023 131 03/17/2015 71 No results found for: DIGOXIN No results found for: GFR @S1FSEWQHA(HbA1C: 1)@ AST (U/L) Date Value 08/14/2023 20 [...] in th (more content not included)... Normal [facility] NURSING PROGon 08-16-2023 NURSING PROG HNO ID: [id number] Author: BÁRBARA POLANCO RN Service: ? Author Type: Registered Nurse Type: Nursing Progress Note Filed: 08/17/2023 06:10 Note Text: Other: 1909 text page out for anticoag and diet orders 0 Phlebotomy aware of PTT due 08/17 413 text page sent to [facility] re pt's pain 0510 phlebotomy aware of 0430 PTT due. 45 Phlebotomy states that they are short staffed and will be over to draw labs delaney. 0610 Phlebotomy on floor to draw labs Normal [facility] PTT, ANTICOAGULANT THERAPYon 08-16-2023 aPTT Coag (PPP) [Time] 40.2 s High 23.0-32.4 [facility] Comment on above: Order Comment: Speci men Type: BLOOD SPECIMEN Ordering Facility: [facility] Address: [address] [place] [address] Performed By: #### P TTA #### [facility] CLIA [id number] [address] [place] [address] OF [facility] ALLIED HEALTHon 08-15-2023 ALLIED HEALTH HNO ID: [id number] Author: CARLEY ALLRED RT(Manuel) Service: Radiology Author Type: Technologist Type: [...] PATIENT PRESENTS WITH AN IMPLANTABLE OR ATTACHED BRICKMASON SUPERVISOR: No RADIOLOGY DEPARTMENT: CT; Exam(s) Completed: Abdomen/Pelvis PERIPHERAL IV DATA: Not applicable SIGNED BY: Carley Allred RT(R) August 15, 2023 3:58 AM Normal [facility] Basic metabolic 2000 panelon 08-15-2023 Anion gap [Moles/Vol] 12 mmol/L Normal 9-18 [facility] Comment on above: Order Comment: Speci men Type: BLOOD SPECIMENOrdering Facility: [facility] Address: [address] [place] [address] Performed By: #### 2 4321-2 ####[facility] [id number] [place] [address] [place] Calcium [Mass/Vol] 8.8 mg/dL Normal 8.5-10.2 [facility] Comment on above: Order Comment: Speci men Type: BLOOD SPECIMENOrdering Facility: [facility] Address: [address] [place] [address] Performed By: #### 2 4321-2 ####[facility]ORYCLIA [id number] [place] [address] [place] Chloride [Moles/Vol] 105 mmol/L Normal 97-105 [facility] Comment on above: Order Comment: Speci men Type: BLOOD SPECIMENOrdering Facility: [facility] Address: [address] [place] [address] Performed By: #### 2 4321-2 ####[facility]ORYCLIA [id number] [place] [address] [place] CO2 [Moles/Vol] 22 mmol/L Normal 22-30 [facility] Comment on above: Order Comment: Speci men Type: BLOOD SPECIMENOrdering Facility: [facility] Address: [address] [place] [address] Performed By: #### 2 4321-2 ####[facility] [id number] [place] [address] [place] Creatinine [Mass/Vol] 0.94 mg/dL Normal 0.58-0.96 [facility] Comment on above: Order Comment: Speci men Type: BLOOD SPECIMENOrdering Facility: [facility] Address: [address] [place] [address] Performed By: #### 2 4321-2 ####[facility] [id number] [place] [address] [place] Creatinine and Glomerular filtration rate.predicted panel (S/P/Bld) 76 mL/min/1.73m??? Normal >=60 [facility] Comment on above: Order Comment: Renetta abhinav Type: BLOOD SPECIMENOrdering Facility: [facility] Address: [address] [place] [address] Result Comment: [facility] Glomerular Filtration Rate (eGFR) is [...] actual GFR. Performed By: #### 2 4321-2 ####[facility]ORYCLIA [id number] [place] [address] [place] Glucose [Mass/Vol] 79 mg/dL Normal 74-99 [facility] Comment on above: Order Comment: Renetta la Type: BLOOD SPECIMENOrdering Facility: [facility] Address: [address] [place] [address] Result Comment: The [place] Diabetes [employer] (ADA) provides guidance for cutoff [...] Standards of Medical Care in Diabetes 2016, [place]. Diabetes Care. 2016.39(Suppl 1). Performed By: #### 2 4321-2 ####[facility] [id number] [place] [address] [place] Potassium [Moles/Vol] 4.0 mmol/L Normal 3.7-5.1 [facility] Comment on above: Order Comment: Speci men Type: BLOOD SPECIMENOrdering Facility: [facility] Address: [address] [place] [address] Performed By: #### 2 4321-2 ####[facility]CLIA [id number] [place] [id number] [place] Sodium [Moles/Vol] 139 mmol/L Normal 136-144 [facility] Comment on above: Order Comment: Speci men Type: BLOOD SPECIMENOrdering Facility: [facility] Address: [address] [place] [address] Performed By: #### 2 4321-2 ####[facility]ORYCLIA [id number] [place] [address] [place] Urea nitrogen [Mass/Vol] 19 mg/dL Normal 7-21 [facility] Comment on above: Order Comment: Speci men Type: BLOOD SPECIMENOrdering Facility: [facility] Address: [address] [place] [address] Performed By: #### 2 4321-2 ####[facility]ORYCLIA [id number] [place] [address] [place] CBC panel Auto (Bld)on 08-15 Erythrocyte distribution width (RBC) [Ratio] 13.2 % Normal 11.5-15.0 [facility] Comment on above: Order Comment: Speci men Type: BLOOD SPECIMENOrdering Facility: [facility] Address: [address] [place] [address] Performed By: #### 5 8410-2 ####[facility]ORYCLIA [id number] [place] [address] [place] Hematocrit (Bld) [Volume fraction] 43.3 % Normal 36.0-46.0 [facility] Comment on above: Order Comment: Speci men Type: BLOOD SPECIMENOrdering Facility: [facility] Address: [address] [place] [address] Performed By: #### 5 8410-2 ####[facility]CLIA [id number] [place] [address] [place] Hemoglobin (Bld) [Mass/Vol] 14.5 g/dL Normal 11.5-15.5 [facility] Comment on above: Order Comment: Speci men Type: BLOOD SPECIMENOrdering Facility: [facility] Address: [address] [place] [address] Performed By: #### 5 8410-2 ####[facility]ORYCLIA [id number] [place] [address] [place] MCH (RBC) [Entitic mass] 30.6 pg Normal 26.0-34.0 [facility] Comment on above: Order Comment: Speci men Type: BLOOD SPECIMENOrdering Facility: [facility] Address: [address] [place] [address] Performed By: #### 5 8410-2 ####[facility]ORYCLIA [id number] [address] [place] MCHC (RBC) [Mass/Vol] 33.5 g/dL Normal 30.5-36.0 [facility] Comment on above: Order Comment: Speci men Type: BLOOD SPECIMENOrdering Facility: [facility] Address: [address] [place] [address] Performed By: #### 5 8410-2 ####[facility]ORYCLIA [id number] [place] [address] [place] MCV (RBC) [Entitic vol] 91.4 fL Normal 80.0-100.0 [facility] Comment on above: Order Comment: Speci men Type: BLOOD SPECIMENOrdering Facility: [facility] Address: [address] [place] [address] Performed By: #### 5 8410-2 ####[facility]ORYCLIA [id number] [place] [address] [place] Nucleated RBC (Bld) [#/Vol] 10*3/uL Normal <0.01 [facility] Comment on above: Order Comment: Speci men Type: BLOOD SPECIMENOrdering Facility: [facility] Address: [address] [place] [address] Performed By: #### 5 8410-2 ####[facility]ORYCLIA [id number] [place] [address] [place] Platelet mean volume (Bld) [Entitic vol] 8.4 fL Low 9.0-12.7 [facility] Comment on above: Order Comment: Speci men Type: BLOOD SPECIMENOrdering Facility: [facility] Address: [address] [place] [address] Performed By: #### 5 8410-2 ####[facility]ORYCLIA [id number] [place] [address] [place] Platelets (Bld) [#/Vol] 260 10*3/uL Normal 150-400 [facility] Comment on above: Order Comment: Speci men Type: BLOOD SPECIMENOrdering Facility: [facility] Address: [address] [place] [address] Performed By: #### 5 8410-2 ####[facility]ATORYCLIA [id number] [place] [address] [place] RBC (Bld) [#/Vol] 4.74 10*6/uL Normal 3.90-5.20 [facility] Comment on above: Order Comment: Speci men Type: BLOOD SPECIMENOrdering Facility: [facility] Address: [address] [place] [address] Performed By: #### 5 8410-2 ####[facility]ORYCLIA [id number] [place] [address] [place] WBC (Bld) [#/Vol] 5.14 10*3/uL Normal 3.70-11.00 [facility] Comment on above: Order Comment: Speci men Type: BLOOD SPECIMENOrdering Facility: [facility] Address: [address] [place] [address] Performed By: #### 5 8410-2 ####[facility] [id number] [place] [id number] [facility] CONSULTon 08-15-2023 CONSULT HNO ID: [id number] Author: ROBY AYALA MD Service: Vascular Medicine [...] Oral 78 20 97 % -- -- 08/15/235 124/76 36.3 ?C (97.3 ?F) Oral 66 [...] -- 139 (more content not included)... Normal [facility] CONSULT HNO ID: [id number] Author: MARYSOL WYNN MD Service: Pulmonary Disease Author Type: Physician Type: Consults Filed: 08/15/2023 15:37 Note Text: [facility] STAFF PHYSICIAN NOTE OF PERSONAL INVOLVEMENT IN [...] discussed with IP. Patient will go for [id number] bronchoscopy by interventional pulmonary for foreign body removal tomorrow at [facility]. Please keep n.p.o. from midnight. -Last Eliquis was on 2/13 a.m. Agree with heparin drip, needs to be held 6 hours prior to procedure. -Continue Dulera, albuterol as needed. aMrysol Wynn MD Pager: [phone] DATE OF SERVICE: 08/15/2023 PULMONARY CONSULT NOTE [...] unspecified ovari (more content not included)... Normal [facility] CT ABD/PEL WO IVCONon 2023 CT ABD/PEL WO IVCON * * *Final Report* * * DATE OF EXAM: Aug 15 2023 4:00AM [facility] 0531 - CT ABD/PEL WO IVCON / [...] Aug 15 2023 4:28AM EST [id number] Normal [facility] HISTORY PHYSICALon 4 HISTORY PHYSICAL HNO ID: [id number] Author: ZAINAB CROFT MD Service: Hospital Medicine [...] for sle (more content not included)... Normal [facility] HISTORY PHYSICAL HNO ID: [id number] Author: ECTOR LAZARO PA-C Service: Hospital Medicine Author Type: Physician Transformer Assembly Supervisor Type: H&P Filed: 08/14/2023 23:49 Note Text: [...] about a week ago she was at [facility] and noted her lip ring came out, [...] melena, hematoche (more content not included)... Normal [facility] NURSING PROGon 08-15-2023 NURSING PROG HNO ID: [id number] Author: LUDY PERDUE, RN Service: ? Author Type: Registered Nurse Type: Nursing Progress Note Filed: 08/16/2023 04:46 Note Text: 7530 [id number] Damari Rios. FYI pts PTT resulted >139.0 running hep gtt. thank you, Ludy [phone] received report from YUNI Delacruz. Pt resting [...] like me to recheck PTT? thanks, Ludy 50602 -recheck in 2 hrs, order placed 0117 restarted hep gtt @11 per pharmacy 0122 424-2 Damari Brande. pt reporting R side 9/10 back pain and PACHECO, stating other PRNs did not help, is she able to get anything else? thanks, Ludy 92362 -motrin ordered 0406 hep gtt infusion complete 0409 pt reporting 8/10 back pain, medication administered per MAR [facility] NURSING PROG HNO ID: [id number] Author: LIZA MCCALLUM, RN Service: ? Author Type: Registered Nurse Type: Nursing Progress Note Filed: 08/14/2023 22:28 Note Text: Other: 2224: pt arrived from ED with chest pain, assessment completed, iv site observed, wnl, call light, bedside tray within reach, instructed to use, verbalized understanding, bed in low position, locked. [facility] PT panel Coag (PPP)on 2023 INR Coag (PPP) [Relative time] 1.0 {INR} Normal 0.9-1.3 [facility] Comment on above: Order Comment: Speci men Type: BLOOD SPECIMEN Ordering Facility: [facility] Address: [address] [place] [address], [place] [address] Result Comment: Tiesha min K Antagonist (VKA) Therapeutic Range: INR 2 to 3 (Target INR of 2.5) Note: For patients treated with VKA drugs, such as warfarin, the [employer] 2012 Guideline recommends [...] Chest 2012, 141:7S-47S Roberta RA, et al. JACC 2017, 70: 252-289 Performed By: #### P TTAC #### [facility] CLIA [id number] [address] [place] [address] [place] PT Coag (PPP) [Time] 10.8 s Normal 9.7-13.0 [facility] Comment on above: Order Comment: Speci men Type: BLOOD SPECIMEN Ordering Facility: [facility] Address: [address] [place] [address] Performed By: #### P TTAC #### [facility] CLIA [id number] [address] [place] [address] [place] PTT, ANTICOAGULANT THERAPYon 08-15-2023 aPTT Coag (PPP) [Time] s High 23.0-32.4 [facility] Comment on above: Order Comment: Speci men Type: BLOOD SPECIMENOrdering Facility: [facility] Address: [address] [place] [address] Result Comment: Samp le checked for clot. Result rechecked. Performed By: #### P TTAC ####[facility]ORY[facility] [id number] [place] [address] STATES [facility] aPTT Coag (PPP) [Time] s High 23.0-32.4 [facility] Comment on above: Order Comment: Speci men Type: BLOOD SPECIMEN Ordering Facility: [facility] Address: [address] [place] [address] Result Comment: Samp le checked for clot. Result rechecked. Performed By: #### P TTAC #### [facility] CLIA [id number] [address] [place] [address] [place] aPTT Coag (PPP) [Time] 49.1 s High 23.0-32.4 [facility] Comment on above: Order Comment: Speci men Type: BLOOD SPECIMEN Ordering Facility: [facility] Address: [address] [place] [address] Performed By: #### P TTAC #### [facility] CLIA [id number] [address] [place] [address] [place] Urinalysis complete panel (U )on 08-15-2023 Bacteria LM.HPF (Urine sed) [#/Area] Rare Abnormal None Seen [facility] Comment on above: Order Comment: Speci men Type: URINE SPECIMENOrdering Facility: [facility] Address: [address] [place] [address] Performed By: #### 2 4356-8 ####[facility] [id number] [place] [address] [place] Bilirubin Ql (U) Negative Normal Negative [facility] Comment on above: Order Comment: Speci men Type: URINE SPECIMENOrdering Facility: [facility] Address: [address] [place] [address] Performed By: #### 2 4356-8 ####[facility]IA [id number] [place] [address] [place] Clarity (Unsp spec) Clear Normal Clear [facility] Comment on above: Order Comment: Speci men Type: URINE SPECIMENOrdering Facility: [facility] Address: [address] [place] [address] Performed By: #### 2 4356-8 ####[facility] [id number] [place] [address] [place] Color (U) Light Yellow Normal Yellow [facility] Comment on above: Order Comment: Speci men Type: URINE SPECIMENOrdering Facility: [facility] Address: [address] [place] [address] Performed By: #### 2 4356-8 ####[facility] [id number] [place] [address] [place] Epithelial cells LM.HPF (Urine sed) [#/Area] Many Normal [facility] Comment on above: Order Comment: Speci men Type: URINE SPECIMENOrdering Facility: [facility] Address: [address] [place] [address] Performed By: #### 2 4356-8 ####[facility] [id number] [place] [address] [place] Glucose Test strip (U) [Mass/Vol] Negative Normal Trace, Negative [facility] Comment on above: Order Comment: Speci men Type: URINE SPECIMENOrdering Facility: [facility] Address: [address] [place] [address] Performed By: #### 2 4356-8 ####[facility] [id number] [place] [address] [place] Hemoglobin Ql (U) Negative Normal Negative, Trace [facility] Comment on above: Order Comment: Speci men Type: URINE SPECIMENOrdering Facility: [facility] Address: [address] [place] [address] Performed By: #### 2 4356-8 ####[facility] [id number] [place] [address] [place] Ketones Ql (U) Negative Normal Negative, Trace [facility] Comment on above: Order Comment: Speci men Type: URINE SPECIMENOrdering Facility: [facility] Address: [address] [place] [address] Performed By: #### 2 4356-8 ####[facility] [id number] [place] [address] [place] Leukocyte esterase Test strip Ql (U) Negative Normal Negative, 25 Souleymane/uL [facility] Comment on above: Order Comment: Speci men Type: URINE SPECIMENOrdering Facility: [facility] Address: [address] [place] [address] Performed By: #### 2 4356-8 ####[facility] [id number] [place] [address] [place] Nitrite Ql (U) Negative Normal Negative [facility] Comment on above: Order Comment: Speci men Type: URINE SPECIMENOrdering Facility: [facility] Address: [address] [place] [address] Performed By: #### 2 4356-8 ####[facility] [id number] [place] [address] [place] pH (U) 6.5 [pH] Normal 5.0-8.0 [facility] Comment on above: Order Comment: Speci men Type: URINE SPECIMENOrdering Facility: [facility] Address: [address] [place] [address] Performed By: #### 2 4356-8 ####[facility] [id number] [place] [address] [place] Protein (U) [Mass/Vol] 1+ Abnormal Trace , Negative [facility] Comment on above: Order Comment: Speci men Type: URINE SPECIMENOrdering Facility: [facility] Address: [address] [place] [address] Performed By: #### 2 4356-8 ####[facility] [id number] [place] [address] [place] RBC LM.HPF (Urine sed) [#/Area] 6-10 /HPF Abnormal 0-3 /HPF [facility] Comment on above: Order Comment: Speci men Type: URINE SPECIMENOrdering Facility: [facility] Address: [address] [place] [address] Performed By: #### 2 4356-8 ####[facility] [id number] [place] [address] [place] Specific gravity (U) [Rel density] 1.010 Normal 1.005-1.030 [facility] Comment on above: Order Comment: Speci men Type: URINE SPECIMENOrdering Facility: [facility] Address: [address] [place] [address] Performed By: #### 2 4356-8 ####[facility] [id number] [place] [address] [place] Urobilinogen Ql (U) Normal Normal Normal [facility] Comment on above: Order Comment: Speci men Type: URINE SPECIMENOrdering Facility: [facility] Address: [address] [place] [address] Performed By: #### 2 4356-8 ####[facility]IA [id number] [address] STATES [facility] WBC LM.HPF (Urine sed) [#/Area] 11-25 /HPF Abnormal 0-5 /HPF [facility] Comment on above: Order Comment: Speci men Type: URINE SPECIMENOrdering Facility: [facility] Address: [address] [place] [address] Performed By: #### 2 4356-8 ####[facility]ORYCLIA [id number] [address] ALLIED HEALTHon 08-14-2023 ALLIED HEALTH HNO ID: [id number] Author: SUPA SHERMAN RT(R) Service: ? Author [...] PATIENT PRESENTS WITH AN IMPLANTABLE OR ATTACHED BRICKMASON SUPERVISOR: No ALLERGIES: Reviewed and unchanged CONTRAST ALLERGY: [...] RADIOLOGY DEPARTMENT: CT; Exam(s) Completed: Study SIGNATURE: Supa Sherman, RT(R) PATIENT NAME: Damari Rios DATE: August 14, 2023 TIME: 5:53 PM [facility] CBC W Auto Differential pane l (Bld)on 08-14-2023 Basophils (Bld) [#/Vol] 10*3/uL Normal <0.11 [facility] Comment on above: Order Comment: Speci men Type: BLOOD SPECIMENOrdering Facility: [facility] Address: [address] [place] [address] Performed By: #### 5 7021-8 ####[facility]IA [id number] [place] [address] [place] Basophils/100 WBC (Bld) 0.3 % Normal [facility] Comment on above: Order Comment: Speci men Type: BLOOD SPECIMENOrdering Facility: [facility] Address: [address] [place] [address] Performed By: #### 5 7021-8 ####[facility]IA [id number] [place] [address] [place] Differential cell count method Nom (Bld) Auto Normal [facility] Comment on above: Order Comment: Speci men Type: BLOOD SPECIMENOrdering Facility: [facility] Address: [address] [place] [address] Performed By: #### 5 7021-8 ####[facility]IA [id number] [place] [address] [place] Eosinophils (Bld) [#/Vol] 0.11 10*3/uL Normal <0.46 [facility] Comment on above: Order Comment: Speci men Type: BLOOD SPECIMENOrdering Facility: [facility] Address: [address] [place] [address] Performed By: #### 5 7021-8 ####[facility] [id number] [place] [address] [place] Eosinophils/100 WBC (Bld) 1.8 % Normal [facility] Comment on above: Order Comment: Speci men Type: BLOOD SPECIMENOrdering Facility: [facility] Address: [address] [place] [address] Performed By: #### 5 7021-8 ####[facility]IA [id number] [place] [address] [place] Erythrocyte distribution width (RBC) [Ratio] 13.3 % Normal 11.5-15.0 [facility] Comment on above: Order Comment: Speci men Type: BLOOD SPECIMENOrdering Facility: [facility] Address: [address] [place] [address] Performed By: #### 5 7021-8 ####[facility]IA [id number] [place] [address] [place] Hematocrit (Bld) [Volume fraction] 45.2 % Normal 36.0-46.0 [facility] Comment on above: Order Comment: Speci men Type: BLOOD SPECIMENOrdering Facility: [facility] Address: [address] [place] [address] Performed By: #### 5 7021-8 ####[facility] [id number] [place] [address] [place] Hemoglobin (Bld) [Mass/Vol] 15.1 g/dL Normal 11.5-15.5 [facility] Comment on above: Order Comment: Speci men Type: BLOOD SPECIMENOrdering Facility: [facility] Address: [address] [place] [address] Performed By: #### 5 7021-8 ####[facility] [id number] [place] [address] [place] Immature granulocytes (Bld) [#/Vol] 10*3/uL Normal <0.10 [facility] Comment on above: Order Comment: Speci men Type: BLOOD SPECIMENOrdering Facility: [facility] Address: [address] [place] [address] Performed By: #### 5 7021-8 ####[facility] [id number] [place] [address] [place] Immature granulocytes/100 WBC (Bld) 0.3 % Normal [facility] Comment on above: Order Comment: Speci men Type: BLOOD SPECIMENOrdering Facility: [facility] Address: [address] [place] [address] Performed By: #### 5 7021-8 ####[facility]IA [id number] [place] [address] [place] Lymphocytes (Bld) [#/Vol] 1.72 10*3/uL Normal 1.00-4.00 [facility] Comment on above: Order Comment: Speci men Type: BLOOD SPECIMENOrdering Facility: [facility] Address: [address] [place] [address] Performed By: #### 5 7021-8 ####[facility] [id number] [place] [address] [place] Lymphocytes/100 WBC (Bld) 28.6 % Normal [facility] Comment on above: Order Comment: Speci men Type: BLOOD SPECIMENOrdering Facility: [facility] Address: [address] [place] [address] Performed By: #### 5 7021-8 ####[facility] [id number] [place] [address] [place] MCH (RBC) [Entitic mass] 30.4 pg Normal 26.0-34.0 [facility] Comment on above: Order Comment: Speci men Type: BLOOD SPECIMENOrdering Facility: [facility] Address: [address] [place] [address] Performed By: #### 5 7021-8 ####[facility] [id number] [place] [address] [place] MCHC (RBC) [Mass/Vol] 33.4 g/dL Normal 30.5-36.0 [facility] Comment on above: Order Comment: Speci men Type: BLOOD SPECIMENOrdering Facility: [facility] Address: [address] [place] [address] Performed By: #### 5 7021-8 ####[facility] [id number] [place] [address] [place] MCV (RBC) [Entitic vol] 91.1 fL Normal 80.0-100.0 [facility] Comment on above: Order Comment: Speci men Type: BLOOD SPECIMENOrdering Facility: [facility] Address: [address] [place] [address] Performed By: #### 5 7021-8 ####[facility]IA [id number] [place] [address] [place] Monocytes (Bld) [#/Vol] 0.35 10*3/uL Normal <0.87 [facility] Comment on above: Order Comment: Speci men Type: BLOOD SPECIMENOrdering Facility: [facility] Address: [address] [place] [address] Performed By: #### 5 7021-8 ####[facility]IA [id number] [place] [address] [place] Monocytes/100 WBC (Bld) 5.8 % Normal [facility] Comment on above: Order Comment: Speci men Type: BLOOD SPECIMENOrdering Facility: [facility] Address: [address] [place] [address] Performed By: #### 5 7021-8 ####[facility]IA [id number] [place] [address] [place] Neutrophils (Bld) [#/Vol] 3.79 10*3/uL Normal 1.45-7.50 [facility] Comment on above: Order Comment: Speci men Type: BLOOD SPECIMENOrdering Facility: [facility] Address: [address] [place] [address] Performed By: #### 5 7021-8 ####[facility]IA [id number] [place] [address] [place] Neutrophils/100 WBC (Bld) 63.2 % Normal [facility] Comment on above: Order Comment: Speci men Type: BLOOD SPECIMENOrdering Facility: [facility] Address: [address] [place] [address] Performed By: #### 5 7021-8 ####[facility]IA [id number] [place] [address] [place] Nucleated RBC (Bld) [#/Vol] 10*3/uL Normal <0.01 [facility] Comment on above: Order Comment: Speci men Type: BLOOD SPECIMENOrdering Facility: [facility] Address: [address] [place] [address] Performed By: #### 5 7021-8 ####[facility]IA [id number] [place] [address] [place] Nucleated RBC/100 WBC (Bld) [Ratio] 0.0 /100 WBC Normal [facility] Comment on above: Order Comment: Speci men Type: BLOOD SPECIMENOrdering Facility: [facility] Address: [address] [place] [address] Performed By: #### 5 7021-8 ####[facility]IA [id number] [place] [address] [place] Platelet mean volume (Bld) [Entitic vol] 9.0 fL Normal 9.0-12.7 [facility] Comment on above: Order Comment: Speci men Type: BLOOD SPECIMENOrdering Facility: [facility] Address: [address] [place] [address] Performed By: #### 5 7021-8 ####[facility]CLIA [id number] [place] [address] [place] Platelets (Bld) [#/Vol] 330 10*3/uL Normal 150-400 [facility] Comment on above: Order Comment: Speci men Type: BLOOD SPECIMENOrdering Facility: [facility] Address: [address] [place] [address] Performed By: #### 5 7021-8 ####[facility]IA [id number] [place] [id number] [place] RBC (Bld) [#/Vol] 4.96 10*6/uL Normal 3.90-5.20 [facility] Comment on above: Order Comment: Speci men Type: BLOOD SPECIMENOrdering Facility: [facility] Address: [address] [place] [address] Performed By: #### 5 7021-8 ####[facility]IA [id number] [place] [id number] [place] WBC (Bld) [#/Vol] 6.01 10*3/uL Normal 3.70-11.00 [facility] Comment on above: Order Comment: Speci men Type: BLOOD SPECIMENOrdering Facility: [facility] Address: [address] [place] [address] Performed By: #### 5 7021-8 ####[facility]CLIA [id number] [place] [id number] [place] CT CHEST W IVCON PEon 2023 CT CHEST W IVCON PE * * *Final Report* * * DATE OF EXAM: Aug 14 2023 5:52PM [facility] 0540 - CT CHEST W IVCON PE [...] Aug 14 2023 6:19PM EST [id number] Normal [facility] Comprehensive metabolic 2000 panelon 08-14-2023 Albumin [Mass/Vol] 4.1 g/dL Normal 3.9-4.9 [facility] Comment on above: Order Comment: Speci men Type: BLOOD SPECIMENOrdering Facility: [facility] Address: [address] [place] [address] Performed By: #### 2 4323-8, 3040-3, HSTNT ####[facility] LABORATORYCLIA [id number] [place] [address] [place] ALP [Catalytic activity/Vol] 101 U/L Normal 34-123 [facility] Comment on above: Order Comment: Speci men Type: BLOOD SPECIMENOrdering Facility: [facility] Address: [address] [place] [address] Performed By: #### 2 4323-8, 3040-3, HSTNT ####[facility]ORYCLIA [id number] [place] [address] [place] ALT [Catalytic activity/Vol] 21 U/L Normal 7-38 [facility] Comment on above: Order Comment: Speci men Type: BLOOD SPECIMENOrdering Facility: [facility] Address: [facility] [place] [address] Performed By: #### 2 4323-8, 3040-3, HSTNT ####[facility]ORYCLIA [id number] [place] [id number] [place] Anion gap [Moles/Vol] 10 mmol/L Normal 9-18 [facility] Comment on above: Order Comment: Speci men Type: BLOOD SPECIMENOrdering Facility: [facility] Address: [address] [place] [address] Performed By: #### 2 4323-8, 3040-3, HSTNT ####[facility]ORYCLIA [id number] [place] [address] [place] AST [Catalytic activity/Vol] 20 U/L Normal 13-35 [facility] Comment on above: Order Comment: Speci men Type: BLOOD SPECIMENOrdering Facility: [facility] Address: [address] [place] [address] Performed By: #### 2 4323-8, 3040-3, HSTNT ####[facility]ORYCLIA [id number] [place] [address] [place] Bilirubin [Mass/Vol] 0.6 mg/dL Normal 0.2-1.3 [facility] Comment on above: Order Comment: Speci men Type: BLOOD SPECIMENOrdering Facility: [facility] Address: [address] [place] [address] Performed By: #### 2 4323-8, 3040-3, HSTNT ####[facility]ATORYCLIA [id number] [place] [address] [place] Calcium [Mass/Vol] 8.8 mg/dL Normal 8.5-10.2 [facility] Comment on above: Order Comment: Speci men Type: BLOOD SPECIMENOrdering Facility: [facility] Address: [address] [place] [address] Performed By: #### 2 4323-8, 3040-3, HSTNT ####[facility]CLIA [id number] [place] [id number] [place] Chloride [Moles/Vol] 103 mmol/L Normal 97-105 [facility] Comment on above: Order Comment: Speci men Type: BLOOD SPECIMENOrdering Facility: [facility] Address: [address] [place] [address] Performed By: #### 2 4323-8, 3040-3, HSTNT ####[facility]ORATORYCLIA [id number] [place] [id number] [place] CO2 [Moles/Vol] 24 mmol/L Normal 22-30 [facility] Comment on above: Order Comment: Speci men Type: BLOOD SPECIMENOrdering Facility: [facility] Address: [address] [place] [address] Performed By: #### 2 4323-8, 3040-3, HSTNT ####[facility]ORATORYCLIA [id number] [place] [address] [place] Creatinine [Mass/Vol] 0.96 mg/dL Normal 0.58-0.96 [facility] Comment on above: Order Comment: Speci men Type: BLOOD SPECIMENOrdering Facility: [facility] Address: [address] [place] [address] Performed By: #### 2 4323-8, 3040-3, HSTNT ####[facility]ORATORYCLIA [id number] [place] [id number] [place] Creatinine and Glomerular filtration rate.predicted panel (S/P/Bld) 74 mL/min/1.73m??? Normal >=60 [facility] Comment on above: Order Comment: Speci men Type: BLOOD SPECIMENOrdering Facility: [facility] Address: [address] [place] [address] Result Comment: Nura mated Glomerular Filtration Rate [...] Performed By: #### 2 4323-8, 3040-3, HSTNT ####[facility]ORATORYCLIA [id number] [place] [id number] [place] Glucose [Mass/Vol] 86 mg/dL Normal 74-99 [facility] Comment on above: Order Comment: Renetta la Type: BLOOD SPECIMENOrdering Facility: [facility] Address: [address] [place] [address] Result Comment: The [place] Diabetes Association (ADA) provides guidance for cutoff [...] Standards of Medical Care in Diabetes 2016, [place] [employer]. Diabetes Care. 2016.39(Suppl 1). Performed By: #### 2 4323-8, 0-3, HSTNT ####[facility]ORATORYCLIA [id number] [place] [address] [place] Potassium [Moles/Vol] 3.6 mmol/L Low 3.7-5.1 [facility] Comment on above: Order Comment: Renetta la Type: BLOOD SPECIMENOrdering Facility: [facility] Address: [address] [place] [address] Performed By: #### 2 4323-8, 3040-3, HSTNT ####[facility]ORATORYCLIA [id number] [place] [id number] [place] Protein [Mass/Vol] 7.0 g/dL Normal 6.3-8.0 [facility] Comment on above: Order Comment: Speci men Type: BLOOD SPECIMENOrdering Facility: [facility] Address: [address] [place] [address] Performed By: #### 2 4323-8, 3040-3, HSTNT ####[facility]ORATORYCLIA [id number] [place] [address] [place] Sodium [Moles/Vol] 137 mmol/L Normal 136-144 [facility] Comment on above: Order Comment: Speci men Type: BLOOD SPECIMENOrdering Facility: [facility] Address: [address] [place] [address] Performed By: #### 2 4323-8, 3040-3, HSTNT ####[facility]ORATORYCLIA [id number] [place] [address] [place] Urea nitrogen [Mass/Vol] 13 mg/dL Normal 7-21 [facility] Comment on above: Order Comment: Speci men Type: BLOOD SPECIMENOrdering Facility: [facility] Address: [address] [place] [address] Performed By: #### 2 4323-8, 3040-3, HSTNT ####[facility]ORATORYCLIA [id number] [place] [address] [place] Albumin [Mass/Vol] 4.4 g/dL Normal 3.9-4.9 [facility] Comment on above: Order Comment: Speci men Type: BLOOD SPECIMENOrdering Facility: [facility] Address: [address] [place] [address] Performed By: #### 2 4323-8, HSTNT, 10291-5 ####[facility]ORATORYCLIA [id number] [place] [address] [place] ALP [Catalytic activity/Vol] 100 U/L Normal 34-123 [facility] Comment on above: Order Comment: Speci men Type: BLOOD SPECIMENOrdering Facility: [facility] Address: [address] [place] [address] Performed By: #### 2 4323-8, HSTNT, ####[facility]ORATORYCLIA [id number] [place] [address] [place] ALT [Catalytic activity/Vol] Normal [facility] Comment on above: Order Comment: Speci men Type: BLOOD SPECIMENOrdering Facility: [facility] Address: [address] [place] [address] Result Comment: Unab le to assay due to interference from hemolysis. Suggest reorder as clinically indicated. Performed By: #### 2 4323-8, HSTNT, ####[facility]ORATORYCLIA [id number] [place] [address] [place] Anion gap [Moles/Vol] 11 mmol/L Normal 9-18 [facility] Comment on above: Order Comment: Speci men Type: BLOOD SPECIMENOrdering Facility: [facility] Address: [address] [place] [address] Performed By: #### 2 4323-8, HSTNT, ####[facility]ORATORYCLIA [id number] [place] [address] [place] AST [Catalytic activity/Vol] Normal [facility] Comment on above: Order Comment: Speci men Type: BLOOD SPECIMENOrdering Facility: [facility] Address: [address] [place] [address] Result Comment: Unab le to assay due to interference from hemolysis. Suggest reorder as clinically indicated. Performed By: #### 2 4323-8, HSTNT, ####[facility]ORATORYCLIA [id number] [place] [address] [place] Bilirubin [Mass/Vol] 0.6 mg/dL Normal 0.2-1.3 [facility] Comment on above: Order Comment: Speci men Type: BLOOD SPECIMENOrdering Facility: [facility] Address: [address] [place] [address] Performed By: #### 2 4323-8, HSTNT, ####[facility]ORATORYCLIA [id number] [place] [id number] [place] Calcium [Mass/Vol] 8.8 mg/dL Normal 8.5-10.2 [facility] Comment on above: Order Comment: Speci men Type: BLOOD SPECIMENOrdering Facility: [facility] Address: [address] [place] [address] Performed By: #### 2 4323-8, HSTNT, ####[facility]ORATORYCLIA [id number] [place] [address] [place] Chloride [Moles/Vol] 101 mmol/L Normal 97-105 [facility] Comment on above: Order Comment: Speci men Type: BLOOD SPECIMENOrdering Facility: [facility] Address: [address] [place] [address] Performed By: #### 2 4323-8, HSTNT, ####[facility]ORATORYCLIA [id number] [place] [address] [place] CO2 [Moles/Vol] 25 mmol/L Normal 22-30 [facility] Comment on above: Order Comment: Speci men Type: BLOOD SPECIMENOrdering Facility: [facility] Address: [address] [place] [address] Performed By: #### 2 4323-8, HSTNT, ####[facility]ORATORYCLIA [id number] [place] [address] [place] Creatinine [Mass/Vol] 0.91 mg/dL Normal 0.58-0.96 [facility] Comment on above: Order Comment: Speci men Type: BLOOD SPECIMENOrdering Facility: [facility] Address: [address] [place] [address] Performed By: #### 2 4323-8, HSTNT, ####[facility]ORATORYCLIA [id number] [place] [id number] [place] Creatinine and Glomerular filtration rate.predicted panel (S/P/Bld) 79 mL/min/1.73m??? Normal >=60 [facility] Comment on above: Order Comment: Renetta la Type: BLOOD SPECIMENOrdering Facility: [facility] Address: [address] [place] [address] Result Comment: Nura mated Glomerular Filtration Rate [...] GFR. Performed By: #### 2 4323-8, HSTNT, ####[facility] LABORATORYIA [id number] [place] [address] [place] Glucose [Mass/Vol] 85 mg/dL Normal 74-99 [facility] Comment on above: Order Comment: Renetta la Type: BLOOD SPECIMENOrdering Facility: [facility] Address: [address] [place] [address] Result Comment: The [place] Diabetes Association (ADA) provides guidance for cutoff [...] Standards of Medical Care in Diabetes 2016, [place] [employer]. Diabetes Care. 2016.39(Suppl 1). Performed By: #### 2 4323-8, HSTNT, ####[facility] LABORATORYCLIA [id number] [place] [id number] [place] Potassium [Moles/Vol] Normal [facility] Comment on above: Order Comment: Renetta la Type: BLOOD SPECIMENOrdering Facility: [facility] Address: [address] [place] [address] Result Comment: Unab le to assay due to interference from hemolysis. Suggest reorder as clinically indicated. Performed By: #### 2 4323-8, HSTNT, ####[facility]ATORYCLIA [id number] [place] [id number] [place] Protein [Mass/Vol] 7.6 g/dL Normal 6.3-8.0 [facility] Comment on above: Order Comment: Speci men Type: BLOOD SPECIMENOrdering Facility: [facility] Address: [address] [place] [address] Performed By: #### 2 4323-8, HSTNT, ####[facility]ORATORYCLIA [id number] [place] [id number] [place] Sodium [Moles/Vol] 137 mmol/L Normal 136-144 [facility] Comment on above: Order Comment: Speci men Type: BLOOD SPECIMENOrdering Facility: [facility] Address: [address] [place] [address] Performed By: #### 2 4323-8, HSTNT, 43098-6 ####[facility]ORATORYCLIA [id number] [place] [id number] [place] Urea nitrogen [Mass/Vol] 14 mg/dL Normal 7-21 [facility] Comment on above: Order Comment: Speci men Type: BLOOD SPECIMENOrdering Facility: [facility] Address: [address] [place] [address] Performed By: #### 2 4323-8, HSTNT, 12591-1 ####[facility] LABORATORYCLIA [id number] [place] [id number] [place] ECG COMPLETEon 08-14-2023 ECG COMPLETE Ventricular Rate : 7 3 BPM Atrial Rate : 73 BPM P-R Interval : 152 ms QRS Duration : 76 ms Q-T Interval : 350 ms QTC Calculation(Bazett) : 385 ms Calculated P Cordova : 66 degrees Calculated R Cordova : 48 degrees Calculated T Cordova : 101 degrees NORMAL SINUS RHYTHM NONSPECIFIC T WAVE ABNORMALITY ABNORMAL ECG WHEN COMPARED WITH ECG OF 09-JUN-2023 11:16, NO SIGNIFICANT CHANGE WAS FOUND CONFIRMED 2147 Confirmed by DO FLORES STEPHANIE ([id number]), mapping editor LAKISHA WALSH ([id number]) on 08/16/2023 10:59:59 AM NAME : DAMARI RIOS PID : [id number] : 1975 Gender : Female Race : ORD : [id number] Procedure Date : Aug 14 2023 13:11:33 Edit Date : Aug 16 2023 11:00:01 Diagnosis: NORMAL SINUS RHYTHM NONSPECIFIC T WAVE ABNORMALITY ABNORMAL ECG WHEN COMPARED WITH ECG OF 09-JUN-2023 11:16, NO SIGNIFICANT CHANGE WAS FOUND CONFIRMED 2147 Confirmed by DO FLORES STEPHANIE ([id number]), mapping editor LAKISHA WALSH ([id number]) on 08/16/2023 10:59:59 AM Test Reason : Chest Pain Location : 26 : ER L Overread By : DO FLORES STEPHANIE Edited By : LAKISHA WALSH Referred By : , Acquired by : , [facility] ED NOTEon 08-14-2023 ED NOTE HNO ID: [id number] Author: NIRMALA IBANEZ RN Service: ? Author Type: Registered Nurse Type: ED Notes Filed: 08/14/2023 19:40 Note Text: Bed: ED-28 Expected date: Expected time: Means of arrival: Comments: triage [facility] ED NOTE HNO ID: [id number] Author: ANTHONY SRINIVASAN RN Service: ? Author [...] history and POTS. Patient ambulatory and AANDOx3. [facility] ED PROV NOTEon 08-14-2023 ED PROV NOTE HNO ID: [id number] Author: SALUD FLORES DO Service: Emergency Medicine [...] TROPONIN T (more content not included)... Normal [facility] ED Triage Noteon 08-14-2023 ED Triage Note HNO ID: [id number] Author: ELLIS MÉNDEZ DO Service: Emergency Medicine [...] embolism Z86.711 SIGNATURE: Ellis Méndez DO Normal [facility] FLUABV+SARS-CoV-2+RSV Pnl Re sp ANDRY+probeon 08-14-2023 FLUABV+SARS-CoV-2+RSV Pnl Resp ANDRY+probe COVID 19 RESULT: Not detected The method used is RT-PCR or an equivalent NAAT method. Reference Range(the expected result in uninfected individuals): Not detected INFLUENZA A PCR: Not detected INFLUENZA B PCR: Not detected RSV PCR: Not detected Normal [facility] Comment on above: Performed By: #### 9 5941-1 ####[facility] LABORATORYCLIA [id number] [place] [address] [place] HCG QUAL BLDon 08-14-2023 HCG, QUALITATIVE Negative Normal Negative [facility] Comment on above: Order Comment: Renetta la Type: BLOOD SPECIMENOrdering Facility: [facility] Address: [address] [place] [address] Performed By: #### H CG ####[facility] LABORATORYCLIA [id number] [place] [address] [place] HIGH SENSITIVITY TROPONIN To n 08-14-2023 Troponin T.cardiac High sensitivity method [Mass/Vol] <6 Normal <12 [facility] Comment on above: Order Comment: Renetta la Type: BLOOD SPECIMENOrdering Facility: [facility] Address: [address] [place] [address] Result Comment: When assessing risk for acute [...] Performed By: #### 2 4323-8, 3040-3, HSTNT ####[facility]ORATORYCLIA [id number] [place] [address] [place] Troponin T.cardiac High sensitivity method [Mass/Vol] <6 Normal <12 [facility] Comment on above: Order Comment: Speci abhinav Type: BLOOD SPECIMENOrdering Facility: [facility] Address: [address] [place] [address] Result Comment: When assessing risk for acute [...] day MACE. Performed By: #### H STNT ####[facility]ORATORYCLIA [id number] [address] [place] Troponin T.cardiac High sensitivity method [Mass/Vol] Normal [facility] Comment on above: Order Comment: Renetta la Type: BLOOD SPECIMENOrdering Facility: [facility] Address: [address] [place] [address] Result Comment: Unab le to assay due to interference from hemolysis. Suggest reorder as clinically indicated. Performed By: #### 2 4323-8, HSTNT, 78092-6 ####[facility]ORATORYCLIA [id number] [place] [address] [place] Lipase SerPl-cCncon 08-14-19 24 Lipase [Catalytic activity/Vol] 20 U/L Normal 16-61 [facility] Comment on above: Order Comment: Renetta la Type: BLOOD SPECIMENOrdering Facility: [facility] Address: [address] [place] [address], [place] [address] Performed By: #### 2 4323-8, 3040-3, HSTNT ####[facility]ORATORYCLIA [id number] [place] [id number] [place] Magnesium SerPl-mCncon 08-14 Magnesium [Mass/Vol] 2.2 mg/dL Normal 1.7-2.3 [facility] Comment on above: Order Comment: Speci men Type: BLOOD SPECIMENOrdering Facility: [facility] Address: [address] [place] [address] Performed By: #### 2 4323-8, HSTNT, 73407-1 ####[facility] LABORATORYCLIA [id number] [place] [id number] [facility] ALLIED HEALTHon 06-11-2023 ALLIED HEALTH HNO ID: [id number] Author: Lydia Mcgraw Chaplain Service: ? Author [...] contact the Spiritual Care Department: Please call [phone] [place] [phone]. Thank you for the opportunity to be of service. This is an electronically created document. IF PRINTED, PLEASE DO NOT REMOVE FROM THE CHART OR MODIFY PRINTED COPY. Normal [facility] Basic metabolic 2000 panelon 06-11-2023 Anion gap [Moles/Vol] 12 mmol/L Normal 9-18 [facility] Comment on above: Order Comment: Speci men Type: BLOOD SPECIMEN Ordering Facility: [facility] Address: [address] [place] [address] Performed By: #### 5 8410-2 #### [facility] CLIA [id number] [address] [place] [address] [place] Calcium [Mass/Vol] 9.1 mg/dL Normal 8.5-10.2 [facility] Comment on above: Order Comment: Speci men Type: BLOOD SPECIMEN Ordering Facility: [facility] Address: [address] [place] [address] Performed By: #### 5 8410-2 #### [facility] CLIA [id number] [address] [place] [address] [place] Chloride [Moles/Vol] 101 mmol/L Normal 97-105 [facility] Comment on above: Order Comment: Speci men Type: BLOOD SPECIMEN Ordering Facility: [facility] Address: [address] [place] [address] Performed By: #### 5 8410-2 #### [facility] CLIA [id number] [address] [place] [address] [place] CO2 [Moles/Vol] 24 mmol/L Normal 22-30 [facility] Comment on above: Order Comment: Speci men Type: BLOOD SPECIMEN Ordering Facility: [facility] Address: [address] [place] [address] Performed By: #### 5 8410-2 #### [facility] CLIA [id number] [address] [place] [address] [place] Creatinine [Mass/Vol] 0.95 mg/dL Normal 0.58-0.96 [facility] Comment on above: Order Comment: Speci men Type: BLOOD SPECIMEN [facility]ing Facility: [facility] Address: [address] [place] [address] Performed By: #### 5 8410-2 #### [facility] CLIA [id number] [address] [place] [address] [place] Creatinine and Glomerular filtration rate.predicted panel (S/P/Bld) 75 mL/min/1.73m??? Normal >=60 [facility] Comment on above: Order Comment: Renetta la Type: BLOOD SPECIMEN Ordering Facility: [facility] Address: [address] [place] [address] Result Comment: Nuramiguel triana Glomerular Filtration Rate (eGFR) is calculated [...] GFR. Performed By: #### 5 8410-2 #### [facility] CLIA [id number] [address] [place] [address] [place] Glucose [Mass/Vol] 103 mg/dL High 74-99 [facility] Comment on above: Order Comment: Renetta la Type: BLOOD SPECIMEN [facility]ing Facility: [facility] Address: [address] [place] [address] Result Comment: The [place] Diabetes Association (ADA) provides guidance for cutoff [...] Standards of Medical Care in Diabetes 2016, [place] [employer]. Diabetes Care. 2016.39(Suppl 1). Performed By: #### 5 8410-2 #### [facility] CLIA [id number] [address] [place] [address] [place] Potassium [Moles/Vol] 3.9 mmol/L Normal 3.7-5.1 [facility] Comment on above: Order Comment: Renetta la Type: BLOOD SPECIMEN Ordering Facility: [facility] Address: [address] [place] [address] Performed By: #### 5 8410-2 #### [facility] CLIA [id number] [address] [place] [address] [place] Sodium [Moles/Vol] 137 mmol/L Normal 136-144 [facility] Comment on above: Order Comment: Speci men Type: BLOOD SPECIMEN Ordering Facility: [facility] Address: [address] [place] [address] Performed By: #### 5 8410-2 #### [facility] CLIA [id number] [address] [place] [address] [place] Urea nitrogen [Mass/Vol] 19 mg/dL Normal 7-21 [facility] Comment on above: Order Comment: Speci men Type: BLOOD SPECIMEN [facility]ing Facility: [facility] Address: [address] [place] [address] Performed By: #### 5 8410-2 #### [facility] CLIA [id number] [address] [place] [address] [place] CBC panel Auto (Bld)on 06-11 Erythrocyte distribution width (RBC) [Ratio] 12.8 % Normal 11.5-15.0 [facility] Comment on above: Order Comment: Speci men Type: BLOOD SPECIMENOrdering Facility: [facility] Address: [address] [place] [address] Performed By: #### 5 8410-2 ####[facility]ORATORYCLIA [id number] [place] [address] [place] Hematocrit (Bld) [Volume fraction] 40.4 % Normal 36.0-46.0 [facility] Comment on above: Order Comment: Speci men Type: BLOOD SPECIMENOrdering Facility: [facility] Address: [address] [place] [address] Performed By: #### 5 8410-2 ####[facility]ORATORYCLIA [id number] [place] [address] [place] Hemoglobin (Bld) [Mass/Vol] 13.9 g/dL Normal 11.5-15.5 [facility] Comment on above: Order Comment: Speci men Type: BLOOD SPECIMENOrdering Facility: [facility] Address: [address] [place] [address] Performed By: #### 5 8410-2 ####[facility]ATORYCLIA [id number] [place] [address] [place] MCH (RBC) [Entitic mass] 31.0 pg Normal 26.0-34.0 [facility] Comment on above: Order Comment: Speci men Type: BLOOD SPECIMENOrdering Facility: [facility] Address: [address] [place] [address] Performed By: #### 5 8410-2 ####[facility]ORATORYCLIA [id number] [place] [address] [place] MCHC (RBC) [Mass/Vol] 34.4 g/dL Normal 30.5-36.0 [facility] Comment on above: Order Comment: Speci men Type: BLOOD SPECIMENOrdering Facility: [facility] Address: [address] [place] [address] Performed By: #### 5 8410-2 ####[facility]ORATORYCLIA [id number] [place] [address] [place] MCV (RBC) [Entitic vol] 90.2 fL Normal 80.0-100.0 [facility] Comment on above: Order Comment: Speci men Type: BLOOD SPECIMENOrdering Facility: [facility] Address: [address] [place] [address] Performed By: #### 5 8410-2 ####[facility]ORATORYCLIA [id number] [place] [address] [place] Nucleated RBC (Bld) [#/Vol] 10*3/uL Normal <0.01 [facility] Comment on above: Order Comment: Speci men Type: BLOOD SPECIMENOrdering Facility: [facility] Address: [address] [place] [address] Performed By: #### 5 8410-2 ####[facility]ORATORYCLIA [id number] [place] [address] [place] Platelet mean volume (Bld) [Entitic vol] 8.6 fL Low 9.0-12.7 [facility] Comment on above: Order Comment: Speci men Type: BLOOD SPECIMENOrdering Facility: [facility] Address: [address] [place] [address] Performed By: #### 5 8410-2 ####[facility] LABORATORYCLIA [id number] [place] [address] [place] Platelets (Bld) [#/Vol] 321 10*3/uL Normal 150-400 [facility] Comment on above: Order Comment: Speci men Type: BLOOD SPECIMENOrdering Facility: [facility] Address: [address] [place] [address] Performed By: #### 5 8410-2 ####[facility] LABORATORYCLIA [id number] [place] [address] [place] RBC (Bld) [#/Vol] 4.48 10*6/uL Normal 3.90-5.20 [facility] Comment on above: Order Comment: Speci men Type: BLOOD SPECIMENOrdering Facility: [facility] Address: [address] [place] [address] Performed By: #### 5 8410-2 ####[facility] LABORATORYCLIA [id number] [place] [address] [place] WBC (Bld) [#/Vol] 8.72 10*3/uL Normal 3.70-11.00 [facility] Comment on above: Order Comment: Speci men Type: BLOOD SPECIMENOrdering Facility: [facility] Address: [address] [place] [address] Performed By: #### 5 8410-2 ####[facility] LABORATORYCLIA [id number] [place] [address] [place] CNDSon 06-11-2023 CNDS HNO ID: [id number] Author: Zainab Croft V, MD Service: General [...] 3 months-please follow-up outpatient with vascular medicine. ASSESSMENT NURSE PRACTITIONER was consulted for follow-up after a salpingo-oophorectomy -no further evaluation was done and you are to follow-up outpatient with ASSESSMENT NURSE PRACTITIONER. Please also follow-up with your primary care [...] Adriana Martinez MD Nurse Practitioner: Anya Howard APRN.[facility] Transitions of Care Critical Issues: NEW BASELINE FOR PATIENT: stable LABS AND PROCEDURES PENDING AT DISCHARGE: No pending results. INCIDENTAL OR ACTIONABLE FINDING (Last Refresh: 06/11/2023 4:19 PM) Test(s): CT FLANK WO IVCON FOLLOW-UP APPOINTMENTS ALREADY SCHEDULED WITH A [facility] PROVIDER: Future Appointments Date Time Provider Department Center 07/24/2023 11:00 AM PUL LAB [address] AT 07/24/2023 11:15 AM PULM LAB [facility] AT 07/24/2023 11:40 AM Adriana Martinez MD [facility] AT Discharge Information Row Name ED to Hosp-Admission (Current) from 06/01/[address] Medical Follow-Up Appointment Specialty Medline: Free Physician Referral Service (Please call if you would like to get established with a CC PCP) ALLERGIES Allergen Reactions Penicillins Anaphylaxis Bactrim [Sulfametho* Codeine Rash Ultram [Tramadol Hc* Intolerance DISCHARGE MEDICATION (more content not included)... Normal [facility] CONSULT PROGon 06-11-2023 CONSULT PROG HNO ID: [id number] Author: Remedios Momin APRN.MECHANICAL INSPECTOR Service: Pulmonary Disease Author Type: Nurse Practitioner [...] s/p prednisone Chest pain /NSTEMI -status post [facility] 06/08, no stenosis, LVEF 55% PULMONARY [...] ~~~~~~~~~~~~~~~~~~~~~~ ~~~~~~~~~~~~~~~~~~~~~~ ~~~~~~~~~ HUSSEIN Signature: Remedios Momin MECHANICAL INSPECTOR Normal [facility] CBC panel Auto (Bld)on 06-10 Erythrocyte distribution width (RBC) [Ratio] 12.8 % Normal 11.5-15.0 [facility] Comment on above: Order Comment: Speci men Type: BLOOD SPECIMEN Ordering Facility: [facility] Address: [address] [place] [address] Performed By: #### 5 8410-2 #### [facility] CLIA [id number] [address] [place] [address] [place] Hematocrit (Bld) [Volume fraction] 40.7 % Normal 36.0-46.0 [facility] Comment on above: Order Comment: Speci men Type: BLOOD SPECIMEN Ordering Facility: [facility] Address: [address] [place] [address] Performed By: #### 5 8410-2 #### [facility] CLIA [id number] [address] [place] [address] [place] Hemoglobin (Bld) [Mass/Vol] 14.1 g/dL Normal 11.5-15.5 [facility] Comment on above: Order Comment: Speci men Type: BLOOD SPECIMEN Ordering Facility: [facility] Address: [address] [place] [address] Performed By: #### 5 8410-2 #### [facility] CLIA [id number] [address] [place] [address] [place] MCH (RBC) [Entitic mass] 30.9 pg Normal 26.0-34.0 [facility] Comment on above: Order Comment: Speci men Type: BLOOD SPECIMEN Ordering Facility: [facility] Address: [address] [place] [address] Performed By: #### 5 8410-2 #### [facility] CLIA [id number] [address] [place] [address] [place] MCHC (RBC) [Mass/Vol] 34.6 g/dL Normal 30.5-36.0 [facility] Comment on above: Order Comment: Speci men Type: BLOOD SPECIMEN Ordering Facility: [facility] Address: [facility] [place]note 2] [place] [address] Performed By: #### 5 8410-2 #### [facility] CLIA [id number] [address] [place] [address] [place] MCV (RBC) [Entitic vol] 89.1 fL Normal 80.0-100.0 [facility] Comment on above: Order Comment: Speci men Type: BLOOD SPECIMEN Ordering Facility: [facility] Address: [address] [place] [address] Performed By: #### 5 8410-2 #### [facility] CLIA [id number] [address] [place] [address] [place] Nucleated RBC (Bld) [#/Vol] 10*3/uL Normal <0.01 [facility] Comment on above: Order Comment: Speci men Type: BLOOD SPECIMEN Ordering Facility: [facility] Address: [address] [place] [address] Performed By: #### 5 8410-2 #### [facility] CLIA [id number] [address] [place] [address] [place] Platelet mean volume (Bld) [Entitic vol] 8.4 fL Low 9.0-12.7 [facility] Comment on above: Order Comment: Speci men Type: BLOOD SPECIMEN Ordering Facility: [facility] Address: [address] [place] [address] Performed By: #### 5 8410-2 #### [facility] CLIA [id number] [address] [place] [address] [place] Platelets (Bld) [#/Vol] 317 10*3/uL Normal 150-400 [facility] Comment on above: Order Comment: Speci men Type: BLOOD SPECIMEN Ordering Facility: [facility] Address: [address] [place] [address] Performed By: #### 5 8410-2 #### [facility] CLIA [id number] [address] [place] [address] [place] RBC (Bld) [#/Vol] 4.57 10*6/uL Normal 3.90-5.20 [facility] Comment on above: Order Comment: Speci men Type: BLOOD SPECIMEN Ordering Facility: [facility] Address: [place] [id number] Performed By: #### 5 8410-2 #### [facility] CLIA [id number] [address] [place] [address] [place] WBC (Bld) [#/Vol] 10.76 10*3/uL Normal 3.70-11.00 [facility] Comment on above: Order Comment: Speci men Type: BLOOD SPECIMEN Ordering Facility: [facility] Address: [place] [address] Performed By: #### 5 8410-2 #### [facility] CLIA [id number] [address] [place] CONSULT PROGon 06-10-2023 CONSULT PROG HNO ID: [id number] Author: Jaquan Muñoz APRN.MECHANICAL INSPECTOR Service: Pulmonary Disease Author Type: Nurse Practitioner [...] 5 D Chest pain /NSTEMI -status post [facility] 06/08, no stenosis, LVEF 55% Acute [...] ~~~~~~~~~~~~~~~~~~~~~~ ~~~~~~~~~~~~~~~~~~~~~~ ~~~~~~~~~ HUSSEIN Signature: Jaquan Muñoz [facility] CBC panel Auto (Bld)on 06-09 Erythrocyte distribution width (RBC) [Ratio] 12.9 % Normal 11.5-15.0 [facility] Comment on above: Order Comment: Speci men Type: BLOOD SPECIMEN Ordering Facility: [facility] Address: [address] [place] [address] Performed By: #### 5 8410-2 #### [facility] CLIA [id number] [address] [place] [address] [place] Hematocrit (Bld) [Volume fraction] 39.3 % Normal 36.0-46.0 [facility] Comment on above: Order Comment: Speci men Type: BLOOD SPECIMEN Ordering Facility: [facility] Address: [address] [place] [address] Performed By: #### 5 8410-2 #### [facility] CLIA [id number] [address] [place] [address] [place] Hemoglobin (Bld) [Mass/Vol] 13.1 g/dL Normal 11.5-15.5 [facility] Comment on above: Order Comment: Speci men Type: BLOOD SPECIMEN Ordering Facility: [facility] Address: [address] [place] [address] Performed By: #### 5 8410-2 #### [facility] CLIA [id number] [address] [place] [address] [place] MCH (RBC) [Entitic mass] 30.8 pg Normal 26.0-34.0 [facility] Comment on above: Order Comment: Speci men Type: BLOOD SPECIMEN Ordering Facility: [facility] Address: [address] [place] [address] Performed By: #### 5 8410-2 #### [facility] CLIA [id number] [address] [place] [address] [place] MCHC (RBC) [Mass/Vol] 33.3 g/dL Normal 30.5-36.0 [facility] Comment on above: Order Comment: Speci men Type: BLOOD SPECIMEN Ordering Facility: [facility] Address: [address] [place] [address] Performed By: #### 5 8410-2 #### [facility] CLIA [id number] [address] [place] [address] [place] MCV (RBC) [Entitic vol] 92.5 fL Normal 80.0-100.0 [facility] Comment on above: Order Comment: Speci men Type: BLOOD SPECIMEN Ordering Facility: [facility] Address: [address] [place] [address] Performed By: #### 5 8410-2 #### [facility] CLIA [id number] [address] [place] [address] [place] Nucleated RBC (Bld) [#/Vol] 10*3/uL Normal <0.01 [facility] Comment on above: Order Comment: Speci men Type: BLOOD SPECIMEN Ordering Facility: [facility] Address: [address] [place] [address] Performed By: #### 5 8410-2 #### [facility] CLIA [id number] [address] [place] [address] [place] Platelet mean volume (Bld) [Entitic vol] 8.6 fL Low 9.0-12.7 [facility] Comment on above: Order Comment: Speci men Type: BLOOD SPECIMEN Ordering Facility: [facility] Address: [address] [place] [address] Performed By: #### 5 8410-2 #### [facility] CLIA [id number] [address] [place] [address] [place] Platelets (Bld) [#/Vol] 325 10*3/uL Normal 150-400 [facility] Comment on above: Order Comment: Speci men Type: BLOOD SPECIMEN Ordering Facility: [facility] Address: [address] [place] [address] Performed By: #### 5 8410-2 #### [facility] CLIA [id number] [address] [place] [address] [place] RBC (Bld) [#/Vol] 4.25 10*6/uL Normal 3.90-5.20 [facility] Comment on above: Order Comment: Speci men Type: BLOOD SPECIMEN Ordering Facility: [facility] Address: [address] [place] [address] [place] [id number] Performed By: #### 5 8410-2 #### [facility] CLIA [id number] [address] [place] [id number] [place] WBC (Bld) [#/Vol] 8.70 10*3/uL Normal 3.70-11.00 [facility] Comment on above: Order Comment: Speci men Type: BLOOD SPECIMEN Ordering Facility: [facility] Address: [place] [id number] Performed By: #### 5 8410-2 #### [facility] CLIA [id number] [address] [place] CONSULT PROGon 06-09-2023 CONSULT PROG HNO ID: [id number] Author: Brodie Delgado MD Service: Pulmonary Disease [...] 5 D Chest pain /NSTEMI -status post [facility] 06/08, no stenosis, LVEF 55% Acute [...] 09, 2023 (more content not included)... Normal [facility] ECG COMPLETEon 06-09-2023 ECG COMPLETE Ventricular Rate : 6 4 BPM Atrial Rate : 64 BPM P-R Interval : 162 ms QRS Duration : 74 ms Q-T Interval : 374 ms QTC Calculation(Bazett) : 385 ms Calculated P Cordova : 57 degrees Calculated R Cordova : 31 degrees Calculated T Cordova : 75 degrees NORMAL SINUS RHYTHM NONSPECIFIC T WAVE ABNORMALITY ABNORMAL ECG WHEN COMPARED WITH ECG OF 06-JUN-2023 12:16, VENT. RATE HAS DECREASED BY 43 BPM NON-SPECIFIC CHANGE IN ST SEGMENT IN LATERAL LEADS QT HAS SHORTENED Confirmed by DEEJAY ASHRAF M.D. ([id number]) on 06/10/2023 9:59:40 AM NAME : DAMARI RIOS PID : [id number] : 1975 Gender : Female Race : ORD : [id number] Procedure Date : Jun 09 2023 11:16:56 [...] By : , Acquired by : , [facility] NURSING PROGon 06-09-2023 NURSING PROG HNO ID: [id number] Author: Eliana August RN Service: Nursing Author Type: Registered Nurse Type: Nursing Progress Note Filed: 06/09/2023 7:16 PM Note Text: Other: 1530: Assumed care of patient in stable condition. Report received from dayshift RN. No s/s of acute distress noted. Bed low and call light within reach. 1916: Plan of Care Continuous Process Owner VS q4h and PRN Treat pain and reassess per protocol Notify LIP of any acute arrhythmias, cp, sob, pulse ox < 94 percent. Maintain pt. Safety: Call light in reach, side rails up X2, bed low and locked, up with assistance. [facility] NURSING PROG HNO ID: [id number] Author: Sapna Gutierrez RN Service: ? Author [...] bed low and locked, patient safety maintained. [facility] ALLIED HEALTHon 06-08-2023 ALLIED HEALTH HNO ID: [id number] Author: Jose C Richmond RT(R) Service: ? [...] ARTIFACT FROM ENDOSCOPIC CLIP, 3T COMPATIBLE Normal [facility] CBC panel Auto (Bld)on 06-08 Erythrocyte distribution width (RBC) [Ratio] 13.0 % Normal 11.5-15.0 [facility] Comment on above: Order Comment: Speci men Type: BLOOD SPECIMENOrdering Facility: [facility] Address: [place] [address] Performed By: #### 5 8410-2 ####[facility] [id number] [place] [address] [place] Hematocrit (Bld) [Volume fraction] 37.4 % Normal 36.0-46.0 [facility] Comment on above: Order Comment: Speci men Type: BLOOD SPECIMENOrdering Facility: [facility] Address: [address] [place] [address] Performed By: #### 5 8410-2 ####[facility] [id number] [address] [place] Hemoglobin (Bld) [Mass/Vol] 12.4 g/dL Normal 11.5-15.5 [facility] Comment on above: Order Comment: Speci men Type: BLOOD SPECIMENOrdering Facility: [facility] Address: [address] [place] [address] Performed By: #### 5 8410-2 ####[facility] [id number] [place] [address] [place] MCH (RBC) [Entitic mass] 30.7 pg Normal 26.0-34.0 [facility] Comment on above: Order Comment: Speci men Type: BLOOD SPECIMENOrdering Facility: [facility] Address: [address] [place] [address] Performed By: #### 5 8410-2 ####[facility] [id number] [address] [place] MCHC (RBC) [Mass/Vol] 33.2 g/dL Normal 30.5-36.0 [facility] Comment on above: Order Comment: Speci men Type: BLOOD SPECIMENOrdering Facility: [facility] Address: [address] [place] [address] Performed By: #### 5 8410-2 ####[facility] [id number] [address] [place] MCV (RBC) [Entitic vol] 92.6 fL Normal 80.0-100.0 [facility] Comment on above: Order Comment: Speci men Type: BLOOD SPECIMENOrdering Facility: [facility] Address: [address] [place] [address] Performed By: #### 5 8410-2 ####[facility] [id number] [place] [address] [place] Nucleated RBC (Bld) [#/Vol] 10*3/uL Normal <0.01 [facility] Comment on above: Order Comment: Speci men Type: BLOOD SPECIMENOrdering Facility: [facility] Address: [address] [place] [address] Performed By: #### 5 8410-2 ####[facility] [id number] [place] [address] [place] Platelet mean volume (Bld) [Entitic vol] 8.8 fL Low 9.0-12.7 [facility] Comment on above: Order Comment: Speci men Type: BLOOD SPECIMENOrdering Facility: [facility] Address: [address] [place] [address] Performed By: #### 5 8410-2 ####[facility] [id number] [place] [address] [place] Platelets (Bld) [#/Vol] 318 10*3/uL Normal 150-400 [facility] Comment on above: Order Comment: Speci men Type: BLOOD SPECIMENOrdering Facility: [facility] Address: [address] [place] [address] Performed By: #### 5 8410-2 ####[facility] [id number] [place] [address] [place] RBC (Bld) [#/Vol] 4.04 10*6/uL Normal 3.90-5.20 [facility] Comment on above: Order Comment: Speci men Type: BLOOD SPECIMENOrdering Facility: [facility] Address: [address] [place] [address] Performed By: #### 5 8410-2 ####[facility] [id number] [place] [address] [place] WBC (Bld) [#/Vol] 12.47 10*3/uL High 3.70-11.00 [facility] Comment on above: Order Comment: Speci men Type: BLOOD SPECIMENOrdering Facility: [facility] Address: [address] [place] [address] Performed By: #### 5 8410-2 ####[facility] [id number] [place] [id number] [facility] MRI LUMBAR SPINE WO/W IVCONo n 06-08-2023 [...] Jun 08 2023 9:11P Dictated by: DEEJAY HALL MD This examination was interpreted and the report reviewed and electronically signed by: DEEJAY HALL MD on Jun 08 2023 9:17PM EST [id number] [facility] NURSING PROGon 06-08-2023 NURSING PROG HNO ID: [id number] Author: Kimberly Pino RN Service: Nursing Author [...] to monitor. 0935 Patient off floor to [facility] at this time. 1500 Patient returned to floor at this time. [facility] NUTRITIONon 06-08-2023 NUTRITION HNO ID: [id number] Author: Francis Roman RD Service: Nutrition Therapy [...] Patient/family self-report, Medical condition Estimated kilocalorie needs: 0170-5052 Calorie Calculation Method: 20-25 kcals/kg Estimated protein [...] DATE: June 08, 2023 TIME: 10:27 AM [facility] OPERATIVE NOon 06-08-2023 OPERATIVE NO HNO ID: [id number] Author: Tyler Greene MD Service: Interventional Cardiology Author Type: Physician Type: Operative Report Filed: 07/03/2023 12:01 PM Note Text: PHARMACOVIGILANCE SPECIALIST PROCEDURE REPORT SERVICE DATE: 06/08/2023 SERVICE TIME: 1:06 PM ACCOUNT SUPPORT SPECIALIST: Tyler Greene MD ATTENDING: Zainab Croft V, MD PRIMARY CARE PHYSICIAN: Kimberly Cason MD REFERRING PROVIDER: Marylin Sweet MD COMPTON STUDY OF HEALTH and AGING SCALE:2=Well CARDIOVASCULAR [...] The patient was taken to the cardiac botany laboratory assistant where the entry site was prepped and [...] June 08, 2023 TIME: 1:06 PM Normal [facility] PTT, ANTICOAGULANT THERAPYon 06-08-2023 aPTT Coag (PPP) [Time] 84.5 s High 23.0-32.4 [facility] Comment on above: Order Comment: Renetta la Type: BLOOD SPECIMEN Ordering Facility: [facility] Address: [address] [place] [address] Performed By: #### P TTAC #### [facility] CLIA [id number] [address] [place] [address] [place] aPTT Coag (PPP) [Time] 71.3 s High 23.0-32.4 [facility] Comment on above: Order Comment: Renetta la Type: BLOOD SPECIMEN Ordering Facility: [facility] Address: [address] [place] [address] Performed By: #### P TTAC #### [facility] CLIA [id number] [address] [place] [address] [place] CBC panel Auto (Bld)on 06-07 Erythrocyte distribution width (RBC) [Ratio] 13.1 % Normal 11.5-15.0 [facility] Comment on above: Order Comment: Speci men Type: BLOOD SPECIMENOrdering Facility: [facility] Address: [address] [place] [address] Performed By: #### 5 8410-2 ####[facility] [id number] [address] [place] Hematocrit (Bld) [Volume fraction] 40.6 % Normal 36.0-46.0 [facility] Comment on above: Order Comment: Speci men Type: BLOOD SPECIMENOrdering Facility: [facility] Address: [address] [place] [address] Performed By: #### 5 8410-2 ####[facility] [id number] [place] [address] [place] Hemoglobin (Bld) [Mass/Vol] 13.6 g/dL Normal 11.5-15.5 [facility] Comment on above: Order Comment: Speci men Type: BLOOD SPECIMENOrdering Facility: [facility] Address: [address] [place] [address] Performed By: #### 5 8410-2 ####[facility] [id number] [place] [address] [place] MCH (RBC) [Entitic mass] 30.9 pg Normal 26.0-34.0 [facility] Comment on above: Order Comment: Speci men Type: BLOOD SPECIMENOrdering Facility: [facility] Address: [address] [place] [address] Performed By: #### 5 8410-2 ####[facility] [id number] [place] [address] [place] MCHC (RBC) [Mass/Vol] 33.5 g/dL Normal 30.5-36.0 [facility] Comment on above: Order Comment: Speci men Type: BLOOD SPECIMENOrdering Facility: [facility] Address: [address] [place] [address] Performed By: #### 5 8410-2 ####[facility] [id number] [place] [address] [place] MCV (RBC) [Entitic vol] 92.3 fL Normal 80.0-100.0 [facility] Comment on above: Order Comment: Speci men Type: BLOOD SPECIMENOrdering Facility: [facility] Address: [address] [place] [address] Performed By: #### 5 8410-2 ####[facility] [id number] [place] [address] [place] Nucleated RBC (Bld) [#/Vol] 10*3/uL Normal <0.01 [facility] Comment on above: Order Comment: Speci men Type: BLOOD SPECIMENOrdering Facility: [facility] Address: [address] [place] [address] Performed By: #### 5 8410-2 ####[facility] [id number] [place] [address] [place] Platelet mean volume (Bld) [Entitic vol] 8.8 fL Low 9.0-12.7 [facility] Comment on above: Order Comment: Speci men Type: BLOOD SPECIMENOrdering Facility: [facility] Address: [address] [place] [address] Performed By: #### 5 8410-2 ####[facility] [id number] [place] [address] [place] Platelets (Bld) [#/Vol] 325 10*3/uL Normal 150-400 [facility] Comment on above: Order Comment: Speci men Type: BLOOD SPECIMENOrdering Facility: [facility] Address: [address] [place] [address] Performed By: #### 5 8410-2 ####[facility] [id number] [place] [address] [place] RBC (Bld) [#/Vol] 4.40 10*6/uL Normal 3.90-5.20 [facility] Comment on above: Order Comment: Speci men Type: BLOOD SPECIMENOrdering Facility: [facility] Address: [address] [place] [address] Performed By: #### 5 8410-2 ####[facility] [id number] [place] [address] [place] WBC (Bld) [#/Vol] 11.51 10*3/uL High 3.70-11.00 [facility] Comment on above: Order Comment: Speci men Type: BLOOD SPECIMENOrdering Facility: [facility] Address: [address] [place] [address] Performed By: #### 5 8410-2 ####[facility] [id number] [place] [address] [place] CK TOTAL AND CK-MBon 023 CK [Catalytic activity/Vol] 24 U/L Low 42-196 [facility] Comment on above: Order Comment: Speci men Type: BLOOD SPECIMEN Ordering Facility: [facility] Address: [address] [place] [address] Performed By: #### 5 8410-2 #### [facility] CLIA [id number] [address] [place] [address] [place] CK.MB [Mass/Vol] ng/mL Normal <4.4 [facility] Comment on above: Order Comment: Speci men Type: BLOOD SPECIMEN Ordering Facility: [facility] Address: [address] [place] [address] Performed By: #### 5 8410-2 #### [facility] CLIA [id number] [address] [place] [address] [place] CK.MB [Ratio] Normal [facility] Comment on above: Order Comment: Speci men Type: BLOOD SPECIMEN Ordering Facility: [facility] Address: [address] [place] [address] Result Comment: CK M B % not reported with CK <100 U/L. Performed By: #### 5 8410-2 #### [facility] CLIA [id number] [address] [place] [address] [place] CONSULT PROGon 06-07-2023 CONSULT PROG HNO ID: [id number] Author: Melinda Coello APRN.BEN Service: Pulmonary Disease Author Type: Nurse [...] ONCE (heparin bolus) LABORATORY DATA Recent Labs 06/07/2392006/06/23 0948 06/05/23 0940 WBC 11.51* 15.26* 12.53* [...] 0.09 ABSBASO -- -- 0.03 Recent Labs 06/07/2321 06/06/2348 06/05/23 0940 NA -- 139 139 K -- 4.2 3.8 CHLOR -- 1 (more content not included)... Normal [facility] CONSULT PROG HNO ID: [id number] Author: Autumn Keller MD Service: Gynecology Author [...] be s (more content not included)... Normal [facility] ECHOon 06-07-2023 Echocardiography Echocardiography Report: Transthoracic Echo [facility] Date of service: 06/07/2023 10:25:11 AM [facility] Ordering physician: SUKHJINDER LANDAVERDE Indication: Pulmonary embolism Technologist: Celestine Ramos [facility] Interpreting physician: Fernandez Sweet MD PATIENT: Name: MRS. DAAMRI RIOS : 1975 Age: 47 years Gender: [...] * * Final * * * [email or web address] Medical Image : [id number] Normal [facility] HCG Preg Ur Qlon 06-07-2023 HCG ( test) Ql (U) Negative Normal Negative [facility] Comment on above: Order Comment: Renetta la Type: URINE SPECIMENOrdering Facility: [facility] Address: [address] [place] [address] Result Comment: This test is intended to aid in the early detection of . Very dilute urine samples, as indicated by a low specific gravity, may not contain in home sales representative levels of hCG. This test detects [...] for . Performed By: #### 2 106-3 ####[facility] [id number] [place] [address] [place] HIGH SENSITIVITY TROPONIN To n 06-07-2023 Troponin T.cardiac High sensitivity method [Mass/Vol] <6 Normal <12 [facility] Comment on above: Order Comment: Renetta la Type: BLOOD SPECIMEN Ordering Facility: [facility] Address: [address] [place] [address] Result Comment: When assessing risk for acute [...] #### 5 8410-2 #### [facility] CLIA [id number] [address] [place] [address] [place] Lipid 1996 panelon 3 Cholesterol [Mass/Vol] 203 mg/dL High <200 [facility] Comment on above: Order Comment: Renetta la Type: BLOOD SPECIMEN Ordering Facility: [facility] Address: [address] [place] [address] Result Comment: <200 mg/dL, Desirable 200-239 mg/dL, Borderline high >239 mg/dL, High Performed By: #### 5 8410-2 #### [facility] CLIA [id number] [address] [place] [address] [place] Cholesterol in HDL [Mass/Vol] 52 mg/dL Normal >39 [facility] Comment on above: Order Comment: Renetta la Type: BLOOD SPECIMEN Ordering Facility: [facility] Address: [address] [place] [address] Result Comment: 40-5 9 mg/dL, Acceptable >59 mg/dL, High: Negative risk factor for coronary heart disease <40 mg/dL, Low: Positive risk factor for coronary heart disease Performed By: #### 5 8410-2 #### [facility] CLIA [id number] [address] [place] [address] [place] Cholesterol in LDL [Mass/Vol] 120 mg/dL High <100 [facility] Comment on above: Order Comment: Renetta la Type: BLOOD SPECIMEN Ordering Facility: [facility] Address: [address] [place] [address] Result Comment: <100 mg/dL, Optimal 100-129 mg/dL, Near optimal/above optimal 130-159 mg/dL, Borderline high 160-189 mg/dL, High >189 mg/dL, Very high Secondary prevention optimal LDL Cholesterol levels are recommended to be < 70 mg/dL Performed By: #### 5 8410-2 #### [facility] CLIA [id number] [address] [place] [address] [place] Cholesterol in LDL/Cholesterol in HDL [Mass ratio] 2.31 {ratio} Normal <2.54 [facility] Comment on above: Order Comment: Renetta men Type: BLOOD SPECIMEN Ordering Facility: [facility] Address: [address] [place] [address] Result Comment: Refe rence: 1. National Cholesterol Education Program ATP III Guideline At-A-Glance Quick Desk Reference: National Heart, Lung, and Blood [place]. National Institutes of Health. 2001: NIH Publication No. 01-3305. 2. An International Atherosclerosis Society position paper: global recommendations for the management of dyslipidemia: executive summary, Atherosclerosis. 2014: 232(2):410-413. Performed By: #### 5 8410-2 #### [facility] CLIA [id number] [address] [place] [address] [place] Cholesterol in VLDL [Mass/Vol] 31 mg/dL High <30 [facility] Comment on above: Order Comment: Renetta la Type: BLOOD SPECIMEN Ordering Facility: [facility] Address: [address] [place] [address] Performed By: #### 5 8410-2 #### [facility] CLIA [id number] [address] [place] [address] [place] Cholesterol non HDL [Mass/Vol] 151 mg/dL High <130 [facility] Comment on above: Order Comment: Renetta abhinav Type: BLOOD SPECIMEN Ordering Facility: [facility] Address: [address] [place] [address] Result Comment: <130 mg/dL, Optimal 130-159 mg/dL, Near optimal/above optimal 160-189 mg/dL, Borderline high 190-219 mg/dL, High >219 mg/dL, Very high Secondary prevention optimal non HDL Cholesterol levels are recommended to be <100 mg/dL Performed By: #### 5 8410-2 #### [facility] CLIA [id number] [address] [place] [address] [place] Cholesterol.total/Chol esterol in HDL [Mass ratio] 3.90 {ratio} Normal <5.10 [facility] Comment on above: Order Comment: Renetta la Type: BLOOD SPECIMEN Ordering Facility: [facility] Address: [address] [place] [address] Performed By: #### 5 8410-2 #### [facility] CLIA [id number] [address] [place] [address] [place] FASTING TIME Normal [facility] Comment on above: Order Comment: Renetta la Type: BLOOD SPECIMEN Ordering Facility: [facility] Address: [address] [place] [address] Result Comment: Unkn own Performed By: #### 5 8410-2 #### [facility] CLIA [id number] [address] [place] [address] [place] Triglyceride [Mass/Vol] 156 mg/dL High <150 [facility] Comment on above: Order Comment: Renetta la Type: BLOOD SPECIMEN Ordering Facility: [facility] Address: [address] [place] [address] Result Comment: <150 mg/dL, Normal 150-199 mg/dL, Borderline high 200-499 mg/dL, High >499 mg/dL, Very high Performed By: #### 5 8410-2 #### [facility] CLIA [id number] [address] [place] [address] [place] PT panel Coag (PPP)on 2022 INR Coag (PPP) [Relative time] 1.0 {INR} Normal 0.9-1.3 [facility] Comment on above: Order Comment: Maikolmiguel la Type: BLOOD SPECIMENOrdering Facility: [facility] Address: [address] [place] [address] Result Comment: Tiesha min K Antagonist (VKA) Therapeutic Range: INR 2 to 3 (Target INR of 2.5) Note: For patients treated with VKA drugs, such as warfarin, the [employer] 2012 Guideline recommends [...] Chest 2012, 141:7S-47S Roberta RA, et al. [facility] 2017, 70: 252-289 Performed By: #### 3 4528-0, PTTAC ####[facility]IA [id number] [place] [address] [place] PT Coag (PPP) [Time] 11.0 s Normal 9.7-13.0 [facility] Comment on above: Order Comment: Speci men Type: BLOOD SPECIMENOrdering Facility: [facility] Address: [address] [place] [address] Performed By: #### 3 4528-0, PTTAC ####[facility]IA [id number] [place] [address] [place] PTT, ANTICOAGULANT THERAPYon 06-07-2023 aPTT Coag (PPP) [Time] 113.0 s High 23.0-32.4 [facility] Comment on above: Order Comment: Speci men Type: BLOOD SPECIMEN Ordering Facility: [facility] Address: [address] [place] [address] Performed By: #### 5 8410-2 #### [facility] CLIA [id number] [place] aPTT Coag (PPP) [Time] 30.0 s Normal 23.0-32.4 [facility] Comment on above: Order Comment: Speci men Type: BLOOD SPECIMENOrdering Facility: [facility] Address: [address] [place] [address] Performed By: #### 3 4528-0, PTTAC ####[facility] [id number] [place] [address] [place] Urinalysis complete panel (U )on 06-07-2023 Bilirubin Ql (U) Negative Normal Negative [facility] Comment on above: Order Comment: Speci men Type: URINE SPECIMEN Ordering Facility: [facility] Address: [address] [place] [address] Performed By: #### 2 4356-8 #### [facility] CLIA [id number] [address] [place] [address] [place] Clarity (Unsp spec) Clear Normal Clear [facility] Comment on above: Order Comment: Speci men Type: URINE SPECIMEN Ordering Facility: [facility] Address: [address] [place] [address] Performed By: #### 2 4356-8 #### [facility] CLIA [id number] [address] [place] [address] [place] Color (U) Light Yellow Normal Yellow [facility] Comment on above: Order Comment: Speci men Type: URINE SPECIMEN Ordering Facility: [facility] Address: [address] [place] [address] Performed By: #### 2 4356-8 #### [facility] CLIA [id number] [address] [place] [address] [place] Epithelial cells LM.HPF (Urine sed) [#/Area] Few Normal [facility] Comment on above: Order Comment: Speci men Type: URINE SPECIMEN Ordering Facility: [facility] Address: [address] [place] [address] Performed By: #### 2 4356-8 #### [facility] CLIA [id number] [address] [place] [address] [place] Glucose Test strip (U) [Mass/Vol] Trace Normal Trace, Negative [facility] Comment on above: Order Comment: Speci men Type: URINE SPECIMEN Ordering Facility: [facility] Address: [address] [place] [address] Performed By: #### 2 4356-8 #### [facility] CLIA [id number] [address] [place] [address] [place] Hemoglobin Ql (U) Negative Normal Negative, Trace [facility] Comment on above: Order Comment: Speci men Type: URINE SPECIMEN Ordering Facility: [facility] Address: [address] [place] [address] Performed By: #### 2 4356-8 #### [facility] CLIA [id number] [address] [place] [address] [place] Ketones Ql (U) Negative Normal Negative, Trace [facility] Comment on above: Order Comment: Speci men Type: URINE SPECIMEN Ordering Facility: [facility] Address: [address] [place] [address] Performed By: #### 2 4356-8 #### [facility] CLIA [id number] [address] [place] [address] [place] Leukocyte esterase Test strip Ql (U) Negative Normal Negative, 25 Souleymane/uL [facility] Comment on above: Order Comment: Speci men Type: URINE SPECIMEN Ordering Facility: [facility] Address: [address] [place] [address] Performed By: #### 2 4356-8 #### [facility] CLIA [id number] [address] [place] [address] [place] Nitrite Ql (U) Negative Normal Negative [facility] Comment on above: Order Comment: Speci men Type: URINE SPECIMEN Ordering Facility: [facility] Address: [address] [place] [address] Performed By: #### 2 4356-8 #### [facility] CLIA [id number] [address] [place] [address] [place] pH (U) 6.5 [pH] Normal 5.0-8.0 [facility] Comment on above: Order Comment: Speci men Type: URINE SPECIMEN Ordering Facility: [facility] Address: [address] [place] [address] Performed By: #### 2 4356-8 #### [facility] CLIA [id number] [address] [place] [address] [place] Protein (U) [Mass/Vol] Negative Normal Trace , Negative [facility] Comment on above: Order Comment: Speci men Type: URINE SPECIMEN Ordering Facility: [facility] Address: [address] [place] [address] Performed By: #### 2 4356-8 #### [facility] CLIA [id number] [address] [place] [address] [place] RBC LM.HPF (Urine sed) [#/Area] 0-3 /HPF Normal 0-3 /HPF [facility] Comment on above: Order Comment: Speci men Type: URINE SPECIMEN Ordering Facility: [facility] Address: [address] [place] [address] Performed By: #### 2 4356-8 #### [facility] CLIA [id number] [address] [place] [address] [place] Specific gravity (U) [Rel density] 1.018 Normal 1.005-1.030 [facility] Comment on above: Order Comment: Speci men Type: URINE SPECIMEN Ordering Facility: [facility] Address: [address] [place] [address] Performed By: #### 2 4356-8 #### [facility] CLIA [id number] [address] [place] [address] [place] Urobilinogen Ql (U) Negative Normal Negative [facility] Comment on above: Order Comment: Speci men Type: URINE SPECIMEN Ordering Facility: [facility] Address: [address] [place] [address] Performed By: #### 2 4356-8 #### [facility] CLIA [id number] [address] [place] [address] [place] WBC LM.HPF (Urine sed) [#/Area] 0-5 /HPF Normal 0-5 /HPF [facility] Comment on above: Order Comment: Speci men Type: URINE SPECIMEN Ordering Facility: [facility] Address: [address] [place] [address] Performed By: #### 2 4356-8 #### [facility] CLIA [id number] [address] [place] [id number] [facility] 06-06-2023 [facility] HNO ID: [id number] Author: Carley Allred RT(Manuel) Service: Radiology Author Type: Technologist Type: [...] RT Giuliano(R) June 06, 2023 5:48 PM [facility] HNO ID: [id number] Author: Suzanne Soliz RT(Manuel) Service: Radiology Author Type: Technologist Type: [...] IV DATA: Not applicable SIGNED BY: RT Antoine(Manuel) June 06, 2023 1:35 PM [facility] HNO ID: [id number] Author: Florencia Tubbs RT(R) Service: Radiology Author Type: Technologist [...] Devora(R) June 06, 2023 10:50 AM Normal [facility] CBC panel Auto (Bld)on 06-06 Erythrocyte distribution width (RBC) [Ratio] 13.0 % Normal 11.5-15.0 [facility] Comment on above: Order Comment: Renetta la Type: BLOOD SPECIMENOrdering Facility: [facility] Address: [address] [place] [address] Performed By: #### 5 8410-2 ####[facility] [id number] [place] [address] [place] Hematocrit (Bld) [Volume fraction] 40.9 % Normal 36.0-46.0 [facility] Comment on above: Order Comment: Renetta la Type: BLOOD SPECIMENOrdering Facility: [facility] Address: [address] [place] [address] Performed By: #### 5 8410-2 ####[facility]ORYCL[facility] [id number] [place] [address] [place] Hemoglobin (Bld) [Mass/Vol] 13.4 g/dL Normal 11.5-15.5 [facility] Comment on above: Order Comment: Maikoli men Type: BLOOD SPECIMENOrdering Facility: [facility] Address: [address] [place] [address] Performed By: #### 5 8410-2 ####[facility] [id number] [address] STATES [facility] MCH (RBC) [Entitic mass] 30.4 pg Normal 26.0-34.0 [facility] Comment on above: Order Comment: Speci men Type: BLOOD SPECIMENOrdering Facility: [facility] Address: [address] [place] [address] Performed By: #### 5 8410-2 ####[facility] [id number] [address] [place] MCHC (RBC) [Mass/Vol] 32.8 g/dL Normal 30.5-36.0 [facility] Comment on above: Order Comment: Speci men Type: BLOOD SPECIMENOrdering Facility: [facility] Address: [address] [place] [address] Performed By: #### 5 8410-2 ####[facility] [id number] [address] [place] MCV (RBC) [Entitic vol] 92.7 fL Normal 80.0-100.0 [facility] Comment on above: Order Comment: Speci men Type: BLOOD SPECIMENOrdering Facility: [facility] Address: [address] [place] [address] Performed By: #### 5 8410-2 ####[facility] [id number] [address] [place] Nucleated RBC (Bld) [#/Vol] 10*3/uL Normal <0.01 [facility] Comment on above: Order Comment: Speci men Type: BLOOD SPECIMENOrdering Facility: [facility] Address: [address] [place] [address] Performed By: #### 5 8410-2 ####[facility]IA [id number] [place] [address] [place] Platelet mean volume (Bld) [Entitic vol] 8.6 fL Low 9.0-12.7 [facility] Comment on above: Order Comment: Speci men Type: BLOOD SPECIMENOrdering Facility: [facility] Address: [address] [place] [address] Performed By: #### 5 8410-2 ####[facility]IA [id number] [place] [id number] [place] Platelets (Bld) [#/Vol] 339 10*3/uL Normal 150-400 [facility] Comment on above: Order Comment: Speci men Type: BLOOD SPECIMENOrdering Facility: [facility] Address: [address] [place] [address] Performed By: #### 5 8410-2 ####[facility]ORYCLIA [id number] [place] [address] [place] RBC (Bld) [#/Vol] 4.41 10*6/uL Normal 3.90-5.20 [facility] Comment on above: Order Comment: Speci men Type: BLOOD SPECIMENOrdering Facility: [facility] Address: [address] [place] [address] Performed By: #### 5 8410-2 ####[facility]ORYCLIA [id number] [place] [address] [place] WBC (Bld) [#/Vol] 15.26 10*3/uL High 3.70-11.00 [facility] Comment on above: Order Comment: Speci men Type: BLOOD SPECIMENOrdering Facility: [facility] Address: [address] [place] [address] Performed By: #### 5 8410-2 ####[facility]ORYCLIA [id number] [place] [address] [place] CK TOTAL AND CK-MBon 023 CK [Catalytic activity/Vol] 32 U/L Low 42-196 [facility] Comment on above: Order Comment: Speci men Type: BLOOD SPECIMENOrdering Facility: [facility] Address: [address] [place] [address] Performed By: #### H STNT, CKCKMB ####[facility]IA [id number] [place] [address] [place] CK.MB [Mass/Vol] 1.1 ng/mL Normal <4.4 [facility] Comment on above: Order Comment: Speci men Type: BLOOD SPECIMENOrdering Facility: [facility] Address: [address] [place] [address] Performed By: #### H STNT, CKCKMB ####[facility]IA [id number] [address] [place] CK.MB [Ratio] Normal [facility] Comment on above: Order Comment: Speci men Type: BLOOD SPECIMENOrdering Facility: [facility] Address: [address] [place] [address] Result Comment: CK M B % not reported with CK <100 U/L. Performed By: #### H STNT, CKCKMB ####[facility]ORATORYCLIA [id number] [address] [place] CNOVon 06-06-2023 CNOV Office Visit ([facility]ML[facility] ) DAMARI RIOS ([id number]) 1975 F Date Time Provider Department 06/06/23 10:00 AM [facility] PULM FCT 1PLMLBH During your visit today, we recorded the following information about you: Dania Srinivasan, JERONIMO 06/06/2023 10:20 AM Signed PULM FUNCTION SMARTBLOCK: Provider: Melinda Coello APRN.MECHANICAL INSPECTOR Oximetry - Ambulation: 1 Dania Srinivasan, JERONIMO 06/06/2023 10:20 AM Signed RESPIRATORY THERAPY OXIMETRY [...] Index Finger 30 -- None 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 Patient reports feeling foggy with activity, requiring periods of rest x2 Referring Provider: MELINDA COELLO [[id number]] Allergies As of Date: 06/06/2023 Noted Allergy Reaction PENICILLINS 03/13/2005 10 - Anaphylaxis BACTRIM (SULFAMETHOXAZOLE-TRIM ETH*03/13/2005 CODEINE 03/13/2005 2 - Rash ULTRAM (TRAMADOL HCL) 03/13/2005 5 - Intolerance Date Reviewed: 06/06/2023 Reviewed by: Marichuy Kwon, RN - Fully Assessed Reason for Visit: [...] pulmonary embolism wi (more content not included)... [facility] CONSULTon 06-06-2023 CONSULT HNO ID: [id number] Author: Marylin Sweet MD Service: Clinical Cardiology Author Type: Physician Type: Consults Filed: 06/06/2023 1:50 PM Note Text: [facility] CARDI[facility]ULAR [facility]ICINE CONSULT NOTE [facility] Damari Rios [id number] PRIMARY SERVICE: Medicine CONSULTING SERVICE: CVM TEAM [...] 5 m (more content not included)... Normal [facility] CT FLANK WO IVCONon 06-06-20 CT FLANK WO IVCON * * *Final Report* * * DATE OF EXAM: Jun 06 2023 5:53PM [facility] 0529 - CT FLANK WO IVCON / [...] cm Lower thorax: Tiny bilateral pleural effusions. Lead Ios Developer (topogram) images: Unremarkable. IMPRESSION: Peripelvic nonobstructing right [...] be communicated with the ordering provider via [employer] staff message or phone message by [employer] within 2 business days of report finalization. --END OF FINDING-- Transcribed Using Voice Recognition Transcribe Date/Time: Jun 06 2023 6:12P Dictated by: SUPA BEAR MD This examination was interpreted and the report reviewed and electronically signed by: SUPA BEAR MD on Jun 06 2023 6:19PM EST [id number] [id number] Invalid Interpretation Code [facility] Comprehensive metabolic 2000 panelon 06-06-2023 Albumin [Mass/Vol] 4.3 g/dL Normal 3.9-4.9 [facility] Comment on above: Order Comment: Speci men Type: BLOOD SPECIMEN Ordering Facility: [facility] Address: [address] [place] [address] Performed By: #### P TTAC #### [facility] CLIA [id number] [address] [place] [address] [place] ALP [Catalytic activity/Vol] 63 U/L Normal 34-123 [facility] Comment on above: Order Comment: Speci men Type: BLOOD SPECIMEN [facility] [facility] Address: [address] [place] [address] Performed By: #### P TTAC #### [facility] CLIA [id number] [address] [place] [address] [place] ALT [Catalytic activity/Vol] 9 U/L Normal 7-38 [facility] Comment on above: Order Comment: Speci men Type: BLOOD SPECIMEN Ordering Facility: [facility] Address: [address] [place] [address] Performed By: #### P TTAC #### [facility] CLIA [id number] [address] [place] [address] [place] Anion gap [Moles/Vol] 11 mmol/L Normal 9-18 [facility] Comment on above: Order Comment: Speci men Type: BLOOD SPECIMEN Ordering Facility: [facility] Address: [address] [place] [address] Performed By: #### P TTAC #### [facility] CLIA [id number] [address] [place] [address] [place] AST [Catalytic activity/Vol] 10 U/L Low 13-35 [facility] Comment on above: Order Comment: Speci men Type: BLOOD SPECIMEN Ordering Facility: [facility] Address: [address] [place] [address] Performed By: #### P TTAC #### [facility] CLIA [id number] [address] [place] [address] [place] Bilirubin [Mass/Vol] 0.4 mg/dL Normal 0.2-1.3 [facility] Comment on above: Order Comment: Speci men Type: BLOOD SPECIMEN Ordering Facility: [facility] Address: [address] [place] [address] Performed By: #### P TTAC #### [facility] [place] [id number] [address] [place] [address] [place] Calcium [Mass/Vol] 10.0 mg/dL Normal 8.5-10.2 [facility] Comment on above: Order Comment: Speci men Type: BLOOD SPECIMEN Ordering Facility: [facility] Address: [address] [place] [address] Performed By: #### P TTAC #### [facility] CLIA [id number] [address] [place] [address] [place] Chloride [Moles/Vol] 102 mmol/L Normal 97-105 [facility] Comment on above: Order Comment: Speci men Type: BLOOD SPECIMEN Ordering Facility: [facility] Address: [address] [place] [address] Performed By: #### P TTAC #### [facility] CLIA [id number] [address] [place] [address] [place] CO2 [Moles/Vol] 26 mmol/L Normal 22-30 [facility] Comment on above: Order Comment: Renetta la Type: BLOOD SPECIMEN Ordering Facility: [facility] Address: [address] [place] [address] Performed By: #### P TTAC #### [facility] CLIA [id number] [address] [place] [address] [place] Creatinine [Mass/Vol] 1.03 mg/dL High 0.58-0.96 [facility] Comment on above: Order Comment: Renetta la Type: BLOOD SPECIMEN Ordering Facility: [facility] Address: [address] [place] [address] Performed By: #### P TTAC #### [facility] CLIA [id number] [address] [place] [address] [place] Creatinine and Glomerular filtration rate.predicted panel (S/P/Bld) 68 mL/min/1.73m??? Normal >=60 [facility] Comment on above: Order Comment: Renetta la Type: BLOOD SPECIMEN Ordering Facility: [facility] Address: [address] [place] [address] Result Comment: Nura mated Glomerular Filtration Rate [...] GFR. Performed By: #### P TTAC #### [facility] CLIA [id number] [address] [place] [address] [place] Glucose [Mass/Vol] 100 mg/dL High 74-99 [facility] Comment on above: Order Comment: Renetta la Type: BLOOD SPECIMEN Ordering Facility: [facility] Address: [address] [place] [address] Result Comment: The [place] Diabetes Association (ADA) provides guidance for cutoff [...] Standards of Medical Care in Diabetes 2016, [place]. Diabetes Care. 2016.39(Suppl 1). Performed By: #### P TTAC #### [facility] CLIA [id number] [address] [place] [address] [place] Potassium [Moles/Vol] 4.2 mmol/L Normal 3.7-5.1 [facility] Comment on above: Order Comment: Renetta la Type: BLOOD SPECIMEN Ordering Facility: [facility] Address: [address] [place] [address] Performed By: #### P TTAC #### [facility] CLIA [id number] [address] [place] [address] [place] Protein [Mass/Vol] 7.4 g/dL Normal 6.3-8.0 [facility] Comment on above: Order Comment: Renetta la Type: BLOOD SPECIMEN Ordering Facility: [facility] Address: [address] [place] [address] Performed By: #### P TTAC #### [facility] CLIA [id number] [address] [place] [address] [place] Sodium [Moles/Vol] 139 mmol/L Normal 136-144 [facility] Comment on above: Order Comment: Renetta la Type: BLOOD SPECIMEN Ordering Facility: [facility] Address: [address] [place] [address] Performed By: #### P TTAC #### [facility] CLIA [id number] [address] [place] [address] [place] Urea nitrogen [Mass/Vol] 31 mg/dL High 7-21 [facility] Comment on above: Order Comment: Speci men Type: BLOOD SPECIMEN Ordering Facility: [facility] Address: [address] [place] [address] Performed By: #### P [facility] #### [facility] CLIA [id number] [address] STATES OF [facility] ECG COMPLETEon 06-06-2023 ECG COMPLETE Ventricular Rate : 5 7 BPM Atrial Rate : 57 BPM P-R Interval : 160 ms QRS Duration : 80 ms Q-T Interval : 412 ms QTC Calculation(Bazett) : 401 ms Calculated P Cordova : 51 degrees Calculated R Cordova : 31 degrees Calculated T Cordova : 98 degrees SINUS BRADYCARDIA WITH SINUS [...] PM NAME : DAMARI RIOS PID : [id number] : 1975 Gender : Female Race : ORD : [id number] Procedure Date : Jun 06 2023 09:22:38 [...] , Acquired by : JOSE ALMAGUER Normal [facility] HIGH SENSITIVITY TROPONIN To n 06-06-2023 Troponin T.cardiac High sensitivity method [Mass/Vol] <6 Normal <12 [facility] Comment on above: Order Comment: Speci men Type: BLOOD SPECIMENOrdering Facility: [facility] Address: [address] [place] [address] Result Comment: When assessing risk for acute [...] MACE. Performed By: #### H STNT, CKCKMB ####[facility] [id number] [place] [address] [place] Troponin T.cardiac High sensitivity method [Mass/Vol] <6 Normal <12 [facility] Comment on above: Order Comment: Renetta la Type: BLOOD SPECIMEN Ordering Facility: [facility] Address: [address] [place] [address] Result Comment: When assessing risk for acute [...] MACE. Performed By: #### P TTAC #### [facility] IA [id number] [address] [place] [address] [place] Magnesium SerPl-mCncon 06-06 Magnesium [Mass/Vol] 2.1 mg/dL Normal 1.7-2.3 [facility] Comment on above: Order Comment: Renetta la Type: BLOOD SPECIMEN Ordering Facility: [facility] Address: [address] [place] [address] Performed By: #### P TTAC #### [facility] CLIA [id number] [address] [place] [address] [place] NM CARDIAC PERF STRESS/PHARM on 06-06-2023 NM CARDIAC PERF STRESS/PHARM * * *Final Report* * * * * * SEE BOTTOM OF REPORT FOR ADDENDED TEXT * * * DATE OF EXAM: Jun 06 2023 1:17PM N 0006 - NM CARDIAC PERF STRESS/PHARM / [...] later. See administered radiotracer and doses below. [facility] Date of service: 06/06/2023 11:47:39 AM Ordering [...] * * * ------ Stress ECG Report: [facility] Date of service: 06/06/2023 11:47:39 AM Ordering physician: ADRIANA SHELBY archives specialist: Aliyah Rosenberg Transformer Assembly Supervisor: Lydia Parrish Interpreting physician: Fernandez Sweet MD [...] 121/60 mmHg. The double product achieved was [address]. Medications: Last Used NORVASC 1 Days ELIQUIS [...] / 60 mmHg Rate Pressure Product (RPP): 56054 Stress Exercise Observations: Reason for test termination: [...] Data Variable: Observed (more content not included)... [facility] NURSING PROGon 06-06-2023 NURSING PROG HNO ID: [id number] Author: Aliyah Rosenberg RN Service: ? Author Type: Registered Nurse Type: Nursing Progress Note Filed: 06/06/2023 12:29 PM Note Text: Covering knot cutter, Dr. Sweet, was contacted. Availability verified for direct supervision of the stress test. No contraindications to stress test noted. Pt. Id confirmed, allergies reviewed. IV assessed for patency. Lexiscan administered and observed per protocol. Denies c/o discomfort or allergic reaction. Normal [facility] Phosphate SerPl-mCncon 06-06 Phosphate [Mass/Vol] 4.0 mg/dL Normal 2.7-4.8 [facility] Comment on above: Order Comment: Speci men Type: BLOOD SPECIMEN Ordering Facility: [facility] Address: [address] [place] [address] Performed By: #### 5 8410-2 #### [facility] CLIA [id number] [address] [place] [address] OF [facility] US KIDNEY/BLADDERon 06-06-20 23 US KIDNEY/BLADDER * [...] on Jun 06 2023 2:30PM EST [id number] Normal [facility] XR ABDOMEN 1V SUPINEon 06-06 XR ABDOMEN [...] on Jun 06 2023 10:48AM EST [id number] [facility] XR CHEST 1V FRONTAL PORTon 1 [...] on Jun 06 2023 10:59AM EST [id number] [facility] Basic metabolic 2000 panelon 06-05-2023 Anion gap [Moles/Vol] 9 mmol/L Normal 9-18 [facility] Comment on above: Order Comment: Speci men Type: BLOOD SPECIMENOrdering Facility: [facility] Address: [address] [place] [address] Performed By: #### 2 4321-2, 75888-7 ####[facility] [id number] [place] [id number] [place] Calcium [Mass/Vol] 9.7 mg/dL Normal 8.5-10.2 [facility] Comment on above: Order Comment: Speci men Type: BLOOD SPECIMENOrdering Facility: [facility] Address: [address] [place] [address] Performed By: #### 2 4321-2, 32145-5 ####[facility] [id number] [place] [id number] [place] Chloride [Moles/Vol] 103 mmol/L Normal 97-105 [facility] Comment on above: Order Comment: Speci men Type: BLOOD SPECIMENOrdering Facility: [facility] Address: [address] [place] [address] Performed By: #### 2 432-2, 05703-9 ####[facility] [id number] [place] [id number] [place] CO2 [Moles/Vol] 27 mmol/L Normal 22-30 [facility] Comment on above: Order Comment: Speci men Type: BLOOD SPECIMENOrdering Facility: [facility] Address: [address] [place] [address] Performed By: #### 2 4321-2, 63849-7 ####[facility] [id number] [place] [id number] [place] Creatinine [Mass/Vol] 0.95 mg/dL Normal 0.58-0.96 [facility] Comment on above: Order Comment: Speci men Type: BLOOD SPECIMENOrdering Facility: [facility] Address: [address] [place] [address] Performed By: #### 2 4321-2, 17426-0 ####[facility] [id number] [place] [id number] [place] Creatinine and Glomerular filtration rate.predicted panel (S/P/Bld) 75 mL/min/1.73m??? Normal >=60 [facility] Comment on above: Order Comment: Renetta la Type: BLOOD SPECIMENOrdering Facility: [facility] Address: [address] [place] [address] Result Comment: [facility] Glomerular Filtration Rate (eGFR) is calculated [...] actual GFR. Performed By: #### 2 4321-2, 85465-5 ####[facility] [id number] [place] [id number] [place] Glucose [Mass/Vol] 102 mg/dL High 74-99 [facility] Comment on above: Order Comment: Renetta la Type: BLOOD SPECIMENOrdering Facility: [facility] Address: [address] [place] [address] Result Comment: The [place] Diabetes Association (ADA) provides guidance for cutoff [...] Standards of Medical Care in Diabetes 2016, [employer]. Diabetes Care. 2016.39(Suppl 1). Performed By: #### 2 4321-2, 70232-6 ####[facility] [id number] [place] [id number] [place] Potassium [Moles/Vol] 3.8 mmol/L Normal 3.7-5.1 [facility] Comment on above: Order Comment: Speci men Type: BLOOD SPECIMENOrdering Facility: [facility] Address: [address] [place] [address] Performed By: #### 2 4321-2, 40560-5 ####[facility] [id number] [place] [address] [place] Sodium [Moles/Vol] 139 mmol/L Normal 136-144 [facility] Comment on above: Order Comment: Speci men Type: BLOOD SPECIMENOrdering Facility: [facility] Address: [address] [place] [address] Performed By: #### 2 4321-2, 69563-7 ####[facility] [id number] [place] [address] [place] Urea nitrogen [Mass/Vol] 26 mg/dL High 7-21 [facility] Comment on above: Order Comment: Speci men Type: BLOOD SPECIMENOrdering Facility: [facility] Address: [address] [place] [address] Performed By: #### 2 4321-2, 72317-8 ####[facility] [id number] [place] [address] [place] CBC W Auto Differential pane l (Bld)on 06-05-2023 Basophils (Bld) [#/Vol] 0.03 10*3/uL Normal <0.11 [facility] Comment on above: Order Comment: Speci men Type: BLOOD SPECIMENOrdering Facility: [facility] Address: [address] [place] [address] Performed By: #### 5 7021-8 ####[facility] [id number] [place] [address] [place] Basophils/100 WBC (Bld) 0.2 % Normal [facility] Comment on above: Order Comment: Speci men Type: BLOOD SPECIMENOrdering Facility: [facility] Address: [address] [place] [address] Performed By: #### 5 7021-8 ####[facility] [id number] [place] [address] [place] Differential cell count method Nom (Bld) Auto Normal [facility] Comment on above: Order Comment: Speci men Type: BLOOD SPECIMENOrdering Facility: [facility] Address: [address] [place] [address] Performed By: #### 5 7021-8 ####[facility] [id number] [place] [address] [place] Eosinophils (Bld) [#/Vol] 0.09 10*3/uL Normal <0.46 [facility] Comment on above: Order Comment: Speci men Type: BLOOD SPECIMENOrdering Facility: [facility] Address: [address] [place] [address] Performed By: #### 5 7021-8 ####[facility] [id number] [place] [address] [place] Eosinophils/100 WBC (Bld) 0.7 % Normal [facility] Comment on above: Order Comment: Speci men Type: BLOOD SPECIMENOrdering Facility: [facility] Address: [address] [place] [address] Performed By: #### 5 7021-8 ####[facility] [id number] [place] [address] [place] Erythrocyte distribution width (RBC) [Ratio] 13.1 % Normal 11.5-15.0 [facility] Comment on above: Order Comment: Speci men Type: BLOOD SPECIMENOrdering Facility: [facility] Address: [address] [place] [address] Performed By: #### 5 7021-8 ####[facility] [id number] [place] [address] [place] Hematocrit (Bld) [Volume fraction] 41.1 % Normal 36.0-46.0 [facility] Comment on above: Order Comment: Speci men Type: BLOOD SPECIMENOrdering Facility: [facility] Address: [address] [place] [address] Performed By: #### 5 7021-8 ####[facility] [id number] [place] [address] [place] Hemoglobin (Bld) [Mass/Vol] 13.7 g/dL Normal 11.5-15.5 [facility] Comment on above: Order Comment: Speci men Type: BLOOD SPECIMENOrdering Facility: [facility] Address: [address] [place] [address] Performed By: #### 5 7021-8 ####[facility] [id number] [place] [address] [place] Immature granulocytes (Bld) [#/Vol] 0.09 10*3/uL Normal <0.10 [facility] Comment on above: Order Comment: Speci men Type: BLOOD SPECIMENOrdering Facility: [facility] Address: [address] [place] [address] Performed By: #### 5 7021-8 ####[facility]IA [id number] [place] [address] [place] Immature granulocytes/100 WBC (Bld) 0.7 % Normal [facility] Comment on above: Order Comment: Speci men Type: BLOOD SPECIMENOrdering Facility: [facility] Address: [address] [place] [address] Performed By: #### 5 7021-8 ####[facility]IA [id number] [place] [address] [place] Lymphocytes (Bld) [#/Vol] 4.03 10*3/uL High 1.00-4.00 [facility] Comment on above: Order Comment: Speci men Type: BLOOD SPECIMENOrdering Facility: [facility] Address: [address] [place] [address] Performed By: #### 5 7021-8 ####[facility] [id number] [place] [address] [place] Lymphocytes/100 WBC (Bld) 32.2 % Normal [facility] Comment on above: Order Comment: Speci men Type: BLOOD SPECIMENOrdering Facility: [facility] Address: [address] [place] [address] Performed By: #### 5 7021-8 ####[facility]IA [id number] [place] [address] [place] MCH (RBC) [Entitic mass] 30.9 pg Normal 26.0-34.0 [facility] Comment on above: Order Comment: Speci men Type: BLOOD SPECIMENOrdering Facility: [facility] Address: [address] [place] [address] Performed By: #### 5 7021-8 ####[facility]IA [id number] [place] [address] [place] MCHC (RBC) [Mass/Vol] 33.3 g/dL Normal 30.5-36.0 [facility] Comment on above: Order Comment: Speci men Type: BLOOD SPECIMENOrdering Facility: [facility] Address: [address] [place] [address] Performed By: #### 5 7021-8 ####[facility]IA [id number] [place] [address] [place] MCV (RBC) [Entitic vol] 92.8 fL Normal 80.0-100.0 [facility] Comment on above: Order Comment: Speci men Type: BLOOD SPECIMENOrdering Facility: [facility] Address: [address] [place] [address] Performed By: #### 5 7021-8 ####[facility]IA [id number] [place] [address] [place] Monocytes (Bld) [#/Vol] 0.77 10*3/uL Normal <0.87 [facility] Comment on above: Order Comment: Speci men Type: BLOOD SPECIMENOrdering Facility: [facility] Address: [address] [place] [address] Performed By: #### 5 7021-8 ####[facility]IA [id number] [address] [place] Monocytes/100 WBC (Bld) 6.1 % Normal [facility] Comment on above: Order Comment: Speci men Type: BLOOD SPECIMENOrdering Facility: [facility] Address: [address] [place] [address] Performed By: #### 5 7021-8 ####[facility]IA [id number] [place] [address] [place] Neutrophils (Bld) [#/Vol] 7.52 10*3/uL High 1.45-7.50 [facility] Comment on above: Order Comment: Speci men Type: BLOOD SPECIMENOrdering Facility: [facility] Address: [address] [place] [address] Performed By: #### 5 7021-8 ####[facility]CLIA [id number] [place] [address] [place] Neutrophils/100 WBC (Bld) 60.1 % Normal [facility] Comment on above: Order Comment: Speci men Type: BLOOD SPECIMENOrdering Facility: [facility] Address: [address] [place] [address] Performed By: #### 5 7021-8 ####[facility]ORYCLIA [id number] [place] [address] [place] Nucleated RBC (Bld) [#/Vol] 10*3/uL Normal <0.01 [facility] Comment on above: Order Comment: Speci men Type: BLOOD SPECIMENOrdering Facility: [facility] Address: [address] [place] [address] Performed By: #### 5 7021-8 ####[facility]CLIA [id number] [place] [address] [place] Nucleated RBC/100 WBC (Bld) [Ratio] 0.0 /100 WBC Normal [facility] Comment on above: Order Comment: Speci men Type: BLOOD SPECIMENOrdering Facility: [facility] Address: [address] [place] [address] Performed By: #### 5 7021-8 ####[facility]IA [id number] [place] [address] [place] Platelet mean volume (Bld) [Entitic vol] 8.7 fL Low 9.0-12.7 [facility] Comment on above: Order Comment: Speci men Type: BLOOD SPECIMENOrdering Facility: [facility] Address: [place] [address] Performed By: #### 5 7021-8 ####[facility]ORY[facility]IA [id number] [place] [address] [place] Platelets (Bld) [#/Vol] 316 10*3/uL Normal 150-400 [facility] Comment on above: Order Comment: Speci men Type: BLOOD SPECIMENOrdering Facility: [facility] Address: [address] [place] [address] Performed By: #### 5 7021-8 ####[facility]ORYCLIA [id number] [place] [address] [place] RBC (Bld) [#/Vol] 4.43 10*6/uL Normal 3.90-5.20 [facility] Comment on above: Order Comment: Speci men Type: BLOOD SPECIMENOrdering Facility: [facility] Address: [address] [place] [address] Performed By: #### 5 7021-8 ####[facility]ORYCLIA [id number] [place] [address] [place] WBC (Bld) [#/Vol] 12.53 10*3/uL High 3.70-11.00 [facility] Comment on above: Order Comment: Speci men Type: BLOOD SPECIMENOrdering Facility: [facility] Address: [address] [place] [address] Performed By: #### 5 7021-8 ####[facility]ORYCLIA [id number] [place] [address] [place] CONSULT PROGon 06-05-2023 CONSULT PROG HNO ID: [id number] Author: Melinda Coello APRN.MECHANICAL INSPECTOR Service: Pulmonary Disease Author Type: Nurse Practitioner [...] (97.5 ?F) Oral 74 17 100 % 06/04/230 138/79 36.5 ?C (97.7 ?F) Oral 94 [...] GLUC 102* CA 9.7 ABG: Invalid input(s): [id number] Respiratory/Nursing Documentation: O2 Therapy: Nasal Cannula (06/05/23 1117) DATA: Diagnostic tests reviewed for today's visit: Most recent labs and imaging results. Melinda Coello APRN.MECHANICAL INSPECTOR Case discussed with a respiratory institute staff physician DATE: June 05, 2023 TIME: 3:13 PM Normal [facility] FLUABV+SARS-CoV-2+RSV Pnl Re sp ANDRY+probeon 06-05-2023 FLUABV+SARS-CoV-2+RSV Pnl Resp ANDRY+probe COVID 19 RESULT: Not detected The method used is RT-PCR or an equivalent NAAT method. Reference Range(the expected result in uninfected individuals): Not detected INFLUENZA A PCR: Not detected INFLUENZA B PCR: Not detected RSV PCR: Not detected Normal [facility] Comment on above: Performed By: #### 9 5941-1 ####[facility] [id number] [place] [address] [place] Procalcitonin SerPl-mCncon 1 08-06-2022 Procalcitonin [Mass/Vol] ng/mL Normal <0.09 [facility] Comment on above: Order Comment: Speci men Type: BLOOD SPECIMENOrdering Facility: [facility] Address: [place] [address] Result Comment: For a guided interpretation of test results, please visit the Change in Procalcitonin Calculator, [email or web address]. Performed By: #### 2 4321-2, 35921-2 ####[facility] [id number] [place] [id number] [facility] XR CHEST 2V FRONTAL/LATon XR CHEST 2V [...] on Jun 06 2023 9:02AM EST [id number] Normal [facility] ALLIED HEALTHon 06-04-2023 ALLIED HEALTH HNO ID: [id number] Author: Alex Maddox RT(R) Service: ? Author [...] RT Emmanuel(R) June 04, 2023 8:18 AM [facility] CONSULT PROGon 06-04-2023 CONSULT PROG HNO ID: [id number] Author: Melinda Coello APRN.CNP Service: Pulmonary Disease Author Type: Nurse Practitioner Type: Consult Progress Note Filed: 06/04/2023 4:28 PM Note Text: CONSULT PROGRESS NOTES Patient Name: Damari Rios SERVICE DATE: 06/04/2023 Consult Progress Note CONSULTING SERVICE: F Respiratory [...] 1.0 APTT 83.7* 28.6 ABG: Invalid input(s): [id number] Respiratory/Nursing Documentation: O2 Therapy: Nasal Cannula (06/04/23 1157) DATA: Diagnostic tests reviewed for today's visit: Most recent labs and imaging results. Melinda Coello APRN.MECHANICAL INSPECTOR Case discussed with a respiratory institute staff physician DATE: June 04, 2023 TIME: 4:16 PM [facility] PT EDon 06-04-2023 PT ED HNO ID: [id number] Author: Tommy Diggs RPh Service: Pharmacy Author [...] adverse drug reactions, and interactions. Tommy Diggs [facility] US DVT LOWER BILon 3 US DVT LOWER ZANDER * * *Final Report* * * DATE OF EXAM: Jun 04 2023 8:17AM U 1005 - US DVT LOWER ZANDER / PROCEDURE REASON: Pulmonary embolism (PE), eval [...] Jun 04 2023 4:03PM EST [id number] Normal [facility] Urinalysis complete panel (U )on 06-03-2023 Bacteria LM.HPF (Urine sed) [#/Area] Rare Abnormal None Seen [facility] Comment on above: Order Comment: Speci men Type: BLOOD SPECIMEN Ordering Facility: [facility] Address: [address] [place] [address] Performed By: #### 5 8410-2 #### [facility] CLIA [id number] [address] [place] [address] [place] Bilirubin Ql (U) Negative Normal Negative [facility] Comment on above: Order Comment: Speci men Type: BLOOD SPECIMEN Ordering Facility: [facility] Address: [address] [place] [address] Performed By: #### 5 8410-2 #### [facility] CLIA [id number] [address] [place] [address] [place] Clarity (Unsp spec) Clear Normal Clear [facility] Comment on above: Order Comment: Speci men Type: BLOOD SPECIMEN Ordering Facility: [facility] Address: [address] [place] [address] Performed By: #### 5 8410-2 #### [facility] CLIA [id number] [address] [place] [address] [place] Color (U) Light Yellow Normal Yellow [facility] Comment on above: Order Comment: Speci men Type: BLOOD SPECIMEN Ordering Facility: [facility] Address: [address] [place] [address] Performed By: #### 5 8410-2 #### [facility] CLIA [id number] [address] [place] [address] [place] Epithelial cells LM.HPF (Urine sed) [#/Area] Moderate Normal [facility] Comment on above: Order Comment: Speci men Type: BLOOD SPECIMEN Ordering Facility: [facility] Address: [address] [place] [address] Performed By: #### 5 8410-2 #### [facility] CLIA [id number] [address] [place] [address] [place] Glucose Test strip (U) [Mass/Vol] Negative Normal Trace, Negative [facility] Comment on above: Order Comment: Speci men Type: BLOOD SPECIMEN Ordering Facility: [facility] Address: [address] [place] [address] Performed By: #### 5 8410-2 #### [facility] CLIA [id number] [address] [place] [address] [place] Hemoglobin Ql (U) Negative Normal Negative, Trace [facility] Comment on above: Order Comment: Speci men Type: BLOOD SPECIMEN Ordering Facility: [facility] Address: [address] [place] [address] Performed By: #### 5 8410-2 #### [facility] CLIA [id number] [address] [place] [address] [place] Ketones Ql (U) Negative Normal Negative, Trace [facility] Comment on above: Order Comment: Speci men Type: BLOOD SPECIMEN Ordering Facility: [facility] Address: [address] [place] [address] Performed By: #### 5 8410-2 #### [facility] CLIA [id number] [address] [place] [address] [place] Leukocyte esterase Test strip Ql (U) Negative Normal Negative, 25 Souleymane/uL [facility] Comment on above: Order Comment: Speci men Type: BLOOD SPECIMEN Ordering Facility: [facility] Address: [address] [place] [address] Performed By: #### 5 8410-2 #### [facility] CLIA [id number] [address] [place] [address] [place] Nitrite Ql (U) Negative Normal Negative [facility] Comment on above: Order Comment: Speci men Type: BLOOD SPECIMEN Ordering Facility: [facility] Address: [address] [place] [address] Performed By: #### 5 8410-2 #### [facility] CLIA [id number] [address] [place] [address] [place] pH (U) 6.5 [pH] Normal 5.0-8.0 [facility] Comment on above: Order Comment: Speci men Type: BLOOD SPECIMEN Ordering Facility: [facility] Address: [address] [place] [address] Performed By: #### 5 8410-2 #### [facility] CLIA [id number] [address] [place] [address] [place] Protein (U) [Mass/Vol] Negative Normal Trace , Negative [facility] Comment on above: Order Comment: Speci men Type: BLOOD SPECIMEN Ordering Facility: [facility] Address: [address] [place] [address] Performed By: #### 5 8410-2 #### [facility] CLIA [id number] [address] [place] [address] [place] RBC LM.HPF (Urine sed) [#/Area] 0-3 /HPF Normal 0-3 /HPF [facility] Comment on above: Order Comment: Speci men Type: BLOOD SPECIMEN Ordering Facility: [facility] Address: [address] [place] [address] Performed By: #### 5 8410-2 #### [facility] [place] [id number] [address] [place] [address] [place] Specific gravity (U) [Rel density] 1.012 Normal 1.005-1.030 [facility] Comment on above: Order Comment: Speci men Type: BLOOD SPECIMEN Ordering Facility: [facility] Address: [address] [place] [address] Performed By: #### 5 8410-2 #### [facility] CLIA [id number] [address] [place] [address] [place] Urobilinogen Ql (U) Negative Normal Negative [facility] Comment on above: Order Comment: Speci men Type: BLOOD SPECIMEN Ordering Facility: [facility] Address: [address] [place] [address] Performed By: #### 5 8410-2 #### [facility] CLIA [id number] [address] [place] [address] [place] WBC LM.HPF (Urine sed) [#/Area] 0-5 /HPF Normal 0-5 /HPF [facility] Comment on above: Order Comment: Speci men Type: BLOOD SPECIMEN Ordering Facility: [facility] Address: [address] [place] [address] Performed By: #### 5 8410-2 #### [facility] IA [id number] [address] [place] [address] [place] CBC panel Auto (Bld)on 06-02 Erythrocyte distribution width (RBC) [Ratio] 13.2 % Normal 11.5-15.0 [facility] Comment on above: Order Comment: Speci men Type: BLOOD SPECIMEN Ordering Facility: [facility] Address: [address] [place] [address] Performed By: #### P TTAC #### [facility] [place] [id number] [address] [place] [address] [place] Hematocrit (Bld) [Volume fraction] 42.4 % Normal 36.0-46.0 [facility] Comment on above: Order Comment: Speci men Type: BLOOD SPECIMEN Ordering Facility: [facility] Address: [address] [place] [address] Performed By: #### P TTAC #### [facility] IA [id number] [address] [place] [address] [place] Hemoglobin (Bld) [Mass/Vol] 14.1 g/dL Normal 11.5-15.5 [facility] Comment on above: Order Comment: Speci men Type: BLOOD SPECIMEN Ordering Facility: [facility] Address: [address] [place] [address] Performed By: #### P TTAC #### [facility] IA [id number] [address] [place] [address] [place] MCH (RBC) [Entitic mass] 30.3 pg Normal 26.0-34.0 [facility] Comment on above: Order Comment: Speci men Type: BLOOD SPECIMEN Ordering Facility: [facility] Address: [address] [place] [address] Performed By: #### P TTAC #### [facility] IA [id number] [address] [place] [address] [place] MCHC (RBC) [Mass/Vol] 33.3 g/dL Normal 30.5-36.0 [facility] Comment on above: Order Comment: Speci men Type: BLOOD SPECIMEN Ordering Facility: [facility] Address: [address] [place] [address] Performed By: #### P TTAC #### [facility] CLIA [id number] [address] [place] [address] [place] MCV (RBC) [Entitic vol] 91.2 fL Normal 80.0-100.0 [facility] Comment on above: Order Comment: Speci men Type: BLOOD SPECIMEN Ordering Facility: [facility] Address: [address] [place] [address] Performed By: #### P TTAC #### [facility] CLIA [id number] [address] [place] [address] [place] Nucleated RBC (Bld) [#/Vol] 10*3/uL Normal <0.01 [facility] Comment on above: Order Comment: Speci men Type: BLOOD SPECIMEN Ordering Facility: [facility] Address: [address] [place] [address] Performed By: #### P TTAC #### [facility] CLIA [id number] [address] [place] [address] [place] Platelet mean volume (Bld) [Entitic vol] 8.8 fL Low 9.0-12.7 [facility] Comment on above: Order Comment: Speci men Type: BLOOD SPECIMEN Ordering Facility: [facility] Address: [address] [place] [address] Performed By: #### P TTAC #### [facility] CLIA [id number] [address] [place] [address] [place] Platelets (Bld) [#/Vol] 334 10*3/uL Normal 150-400 [facility] Comment on above: Order Comment: Speci men Type: BLOOD SPECIMEN Ordering Facility: [facility] Address: [address] [place] [address] Performed By: #### P TTAC #### [facility] CLIA [id number] [address] [place] [address] [place] RBC (Bld) [#/Vol] 4.65 10*6/uL Normal 3.90-5.20 [facility] Comment on above: Order Comment: Speci men Type: BLOOD SPECIMEN Ordering Facility: [facility] Address: [facility] [place] [address] Performed By: #### P TTAC #### [facility] CLIA [id number] [address] [place] [address] [place] WBC (Bld) [#/Vol] 9.25 10*3/uL Normal 3.70-11.00 [facility] Comment on above: Order Comment: Speci men Type: BLOOD SPECIMEN Ordering Facility: [facility] Address: [address] [place] [address] Performed By: #### P TTAC #### [facility] CLIA [id number] [address] [place] [id number] [facility] CONSULTon 06-02-2023 CONSULT HNO ID: [id number] Author: Adriana Martinez MD Service: Pulmonary Disease [...] ULTRAM [TRAMADOL HCL] (more content not included)... Normal [facility] CONSULT HNO ID: [id number] Author: Roby Ayala MD Service: Vascular Medicine [...] VS: Yes. Reviewed Meds: Yes. LDL Chol, [place] (mg/dL) Date Value 02/15/2012 108 AST (U/L) Date Value 06/01/2023 15 05/24/2021 58 N (more content not included)... Normal [facility] HISTORY PHYSICALon 3 HISTORY PHYSICAL HNO ID: [id number] Author: Zainab Croft V, MD Service: Hospital [...] breath GI: (more content not included)... Normal [facility] HISTORY PHYSICAL HNO ID: [id number] Author: Maggi Harrison APRN.MECHANICAL INSPECTOR Service: General Internal Medicine Author Type: Nurse [...] OROPHARYNX: Neg (more content not included)... Normal [facility] NURSING PROGon 06-02-2023 NURSING PROG HNO ID: [id number] Author: Zuri Rascon RN Service: ? Author [...] in reach. Bed alarm on and functioning. [facility] PTT, ANTICOAGULANT THERAPYon 06-02-2023 aPTT Coag (PPP) [Time] 83.7 s High 23.0-32.4 [facility] Comment on above: Order Comment: Speci men Type: BLOOD SPECIMENOrdering Facility: [facility] Address: [address] [place] [address] Performed By: #### P [facility] ####[facility] [id number] [address] [facility] ALLIED HEALTHon 06-01-2023 ALLIED HEALTH HNO ID: [id number] Author: Selvin Duvall RT(Manuel) Service: Radiology Author [...] RT Mauricio(Manuel) June 01, 2023 7:56 PM [facility] ALLIED HEALTH HNO ID: [id number] Author: Selvin Duvall RT(Manuel) Service: Radiology Author [...] CT; Exam(s) Completed: PE Study SIGNATURE: RT Mauricio(R) PATIENT NAME: Damari Rios DATE: June 01, 2023 TIME: 5:45 PM [facility] ALLIED [facility] HNO ID: [id number] Author: Lelia Birmingham RT(R) Service: Radiology Author Type: Technologist Type: Allied Health Filed: 06/01/2023 4:17 PM Note Text: Radiology Service Progress Note PATIENT NAME: Damari DE LOS SANTOSN: [id number] DATE OF SERVICE: June 01, 2023 TIME: [...] Agustín(R) June 01, 2023 4:17 PM Normal [facility] CBC panel Auto (Bld)on 06-01 Erythrocyte distribution width (RBC) [Ratio] 13.1 % Normal 11.5-15.0 [facility] Comment on above: Order Comment: Renetta la Type: BLOOD SPECIMEN Ordering Facility: [facility] Address: [address] [place] [address] Performed By: #### 5 8410-2 #### [facility] CLIA [id number] [address] [place] [address] [place] Hematocrit (Bld) [Volume fraction] 40.2 % Normal 36.0-46.0 [facility] Comment on above: Order Comment: Renetta la Type: BLOOD SPECIMEN Ordering Facility: [facility] Address: [address] [place] [address] Performed By: #### 5 8410-2 #### [facility] CLIA [id number] [address] [place] [address] [place] Hemoglobin (Bld) [Mass/Vol] 13.8 g/dL Normal 11.5-15.5 [facility] Comment on above: Order Comment: Renetta la Type: BLOOD SPECIMEN Ordering Facility: [facility] Address: [address] [place] [address] Performed By: #### 5 8410-2 #### [facility] CLIA [id number] [address] [place] [address] [place] MCH (RBC) [Entitic mass] 30.9 pg Normal 26.0-34.0 [facility] Comment on above: Order Comment: Speci men Type: BLOOD SPECIMEN Ordering Facility: [facility] Address: [address] [place] [address] Performed By: #### 5 8410-2 #### [facility] CLIA [id number] [address] [place] [address] [place] MCHC (RBC) [Mass/Vol] 34.3 g/dL Normal 30.5-36.0 [facility] Comment on above: Order Comment: Speci men Type: BLOOD SPECIMEN Ordering Facility: [facility] Address: [address] [place] [address] Performed By: #### 5 8410-2 #### [facility] CLIA [id number] [address] [place] [address] [place] MCV (RBC) [Entitic vol] 89.9 fL Normal 80.0-100.0 [facility] Comment on above: Order Comment: Speci men Type: BLOOD SPECIMEN Ordering Facility: [facility] Address: [address] [place] [address] Performed By: #### 5 8410-2 #### [facility] CLIA [id number] [address] [place] [address] [place] Nucleated RBC (Bld) [#/Vol] 10*3/uL Normal <0.01 [facility] Comment on above: Order Comment: Speci men Type: BLOOD SPECIMEN Ordering Facility: [facility] Address: [address] [place] [address] Performed By: #### 5 8410-2 #### [facility] CLIA [id number] [address] [place] [address] [place] Platelet mean volume (Bld) [Entitic vol] 8.7 fL Low 9.0-12.7 [facility] Comment on above: Order Comment: Speci men Type: BLOOD SPECIMEN Ordering Facility: [facility] Address: [address] [place] [address] Performed By: #### 5 8410-2 #### [facility] CLIA [id number] [address] [place] [address] [place] Platelets (Bld) [#/Vol] 346 10*3/uL Normal 150-400 [facility] Comment on above: Order Comment: Speci men Type: BLOOD SPECIMEN Ordering Facility: [facility] Address: [address] [place] [address] Performed By: #### 5 8410-2 #### [facility] CLIA [id number] [address] [place] [address] [place] RBC (Bld) [#/Vol] 4.47 10*6/uL Normal 3.90-5.20 [facility] Comment on above: Order Comment: Speci men Type: BLOOD SPECIMEN Ordering Facility: [facility] Address: [address] [place] [address] Performed By: #### 5 8410-2 #### [facility] CLIA [id number] [address] [place] [address] [place] WBC (Bld) [#/Vol] 8.26 10*3/uL Normal 3.70-11.00 [facility] Comment on above: Order Comment: Speci men Type: BLOOD SPECIMEN Ordering Facility: [facility] Address: [address] [place] [address] Performed By: #### 5 8410-2 #### [facility] CLIA [id number] [address] [place] [address] [place] [address] ABD/PEL WO IVCONon 2022 CT ABD/PEL WO IVCON * * *Final Report* * * DATE OF EXAM: Jun 01 2023 8:00PM [facility] 0531 - CT ABD/PEL WO IVCON / [...] on Jun 01 2023 8:13PM EST [id number] [facility] CT CHEST W IVCON PEon 2022 CT CHEST W IVCON PE * * *Final Report* * * DATE OF EXAM: Jun 01 2023 5:49PM [facility] 0540 - CT CHEST W IVCON PE [...] upper quadrant likely related to recent surgery. Lead Ios Developer (topogram) images: Unremarkable. IMPRESSION: Multiple segmental pulmonary [...] 6:06PM EST [id number] CRITICAL!! Invalid Interpretation Code [facility] Comprehensive metabolic 2000 panelon 06-01-2023 Albumin [Mass/Vol] 4.2 g/dL Normal 3.9-4.9 [facility] Comment on above: Order Comment: Speci men Type: BLOOD SPECIMEN Ordering Facility: [facility] Address: [address] [place] [address] Performed By: #### 5 8410-2 #### [facility] CLIA [id number] [address] [place] [address] [place] ALP [Catalytic activity/Vol] 65 U/L Normal 34-123 [facility] Comment on above: Order Comment: Speci men Type: BLOOD SPECIMEN Ordering Facility: [facility] Address: [address] [place] [address] Performed By: #### 5 8410-2 #### [facility] CLIA [id number] [address] [place] [address] [place] ALT [Catalytic activity/Vol] 14 U/L Normal 7-38 [facility] Comment on above: Order Comment: Speci men Type: BLOOD SPECIMEN Ordering Facility: [facility] Address: [address] [place] [address] Performed By: #### 5 8410-2 #### [facility] CLIA [id number] [address] [place] [address] [place] Anion gap [Moles/Vol] 10 mmol/L Normal 9-18 [facility] Comment on above: Order Comment: Speci men Type: BLOOD SPECIMEN Ordering Facility: [facility] Address: [address] [place] [address] Performed By: #### 5 8410-2 #### [facility] CLIA [id number] [address] [place] [address] [place] AST [Catalytic activity/Vol] 15 U/L Normal 13-35 [facility] Comment on above: Order Comment: Speci men Type: BLOOD SPECIMEN Ordering Facility: [facility] Address: [address] [place] [address] Performed By: #### 5 8410-2 #### [facility] CLIA [id number] [address] [place] [address] [place] Bilirubin [Mass/Vol] 0.4 mg/dL Normal 0.2-1.3 [facility] Comment on above: Order Comment: Speci men Type: BLOOD SPECIMEN Ordering Facility: [facility] Address: [address] [place] [address] Performed By: #### 5 8410-2 #### [facility] CLIA [id number] [address] [place] [address] [place] Calcium [Mass/Vol] 9.5 mg/dL Normal 8.5-10.2 [facility] Comment on above: Order Comment: Speci men Type: BLOOD SPECIMEN Ordering Facility: [facility] Address: [address] [place] [address] Performed By: #### 5 8410-2 #### [facility] CLIA [id number] [address] [place] [address] [place] Chloride [Moles/Vol] 102 mmol/L Normal 97-105 [facility] Comment on above: Order Comment: Speci men Type: BLOOD SPECIMEN Ordering Facility: [facility] Address: [address] [place] [address] Performed By: #### 5 8410-2 #### [facility] CLIA [id number] [address] [place] [address] [place] CO2 [Moles/Vol] 28 mmol/L Normal 22-30 [facility] Comment on above: Order Comment: Speci men Type: BLOOD SPECIMEN Ordering Facility: [facility] Address: [address] [place] [address] Performed By: #### 5 8410-2 #### [facility] CLIA [id number] [address] [place] [address] [place] Creatinine [Mass/Vol] 1.08 mg/dL High 0.58-0.96 [facility] Comment on above: Order Comment: Speci men Type: BLOOD SPECIMEN Ordering Facility: [facility] Address: [address] [place] [place] [address], [place] [address] Performed By: #### 5 8410-2 #### [facility] CLIA [id number] [address] [place] [address] [place] Creatinine and Glomerular filtration rate.predicted panel (S/P/Bld) 64 mL/min/1.73m??? Normal >=60 [facility] Comment on above: Order Comment: Renetta la Type: BLOOD SPECIMEN Ordering Facility: [facility] Address: [address] [place] [address] Result Comment: Nura triana Glomerular Filtration Rate [...] GFR. Performed By: #### 5 8410-2 #### [facility] CLIA [id number] [address] [place] [address] [place] Glucose [Mass/Vol] 90 mg/dL Normal 74-99 [facility] Comment on above: Order Comment: Renetta la Type: BLOOD SPECIMEN Ordering Facility: [facility] Address: [place] [address] Result Comment: The [place] Diabetes Association (ADA) provides guidance for cutoff [...] Standards of Medical Care in Diabetes 2016, [place] [employer]. Diabetes Care. 2016.39(Suppl 1). Performed By: #### 5 8410-2 #### [facility] CLIA [id number] [address] [place] [address] [place] Potassium [Moles/Vol] 4.2 mmol/L Normal 3.7-5.1 [facility] Comment on above: Order Comment: Speci men Type: BLOOD SPECIMEN Ordering Facility: [facility] Address: [place] [address] Performed By: #### 5 8410-2 #### [facility] CLIA [id number] [address] [place] [address] [place] Protein [Mass/Vol] 7.3 g/dL Normal 6.3-8.0 [facility] Comment on above: Order Comment: Speci men Type: BLOOD SPECIMEN Ordering Facility: [facility] Address: [address] [place] [address] Performed By: #### 5 8410-2 #### [facility] CLIA [id number] [address] [place] [address] [place] Sodium [Moles/Vol] 140 mmol/L Normal 136-144 [facility] Comment on above: Order Comment: Speci men Type: BLOOD SPECIMEN Ordering Facility: [facility] Address: [address] [place] [address] Performed By: #### 5 8410-2 #### [facility] CLIA [id number] [address] [place] [address] [place] Urea nitrogen [Mass/Vol] 18 mg/dL Normal 7-21 [facility] Comment on above: Order Comment: Maikoli men Type: BLOOD SPECIMEN Ordering Facility: [facility] Address: [place] [address] Performed By: #### 5 8410-2 #### [facility] CLIA [id number] [address] [place] [address] [place] ECG COMPLETEon 06-01-2023 ECG COMPLETE Ventricular Rate : 6 6 BPM Atrial Rate : 66 BPM P-R Interval : 150 ms QRS Duration : 78 ms Q-T Interval : 382 ms QTC Calculation(Bazett) : 400 ms Calculated P Cordova : 44 degrees Calculated R Cordova : 62 degrees Calculated T Cordova : 1 degrees NORMAL SINUS RHYTHM WITH SINUS ARRHYTHMIA CANNOT RULE OUT INFERIOR INFARCT , AGE UNDETERMINED ABNORMAL ECG WHEN COMPARED WITH ECG OF 16-SEP-2015 08:30, ST NO LONGER ELEVATED IN LATERAL LEADS T WAVE INVERSION NOW EVIDENT IN INFERIOR LEADS T WAVE INVERSION NOW EVIDENT IN LATERAL LEADS Confirmed by MD FREEMAN BRIAN ([id number]), mapping editor JOSE C STEVE ([id number]) on 06/02/2023 10:12:19 AM NAME : DAMARI RIOS PID : [id number] : 1975 Gender : Female Race : ORD : [id number] Procedure Date : Jun 01 2023 15:34:17 [...] LATERAL LEADS Confirmed by MD FREEMAN BRIAN ([id number]), mapping editor JOSE C STEVE ([id number]) on 06/02/2023 10:12:19 AM Test Reason : Chest Pain Location : 26 : ER L ED Overread By : MD FREEMAN BRIAN Edited By : JOSE C STEVE Referred By : , Acquired by : , [facility] ED NOTEon 06-01-2023 ED NOTE HNO ID: [id number] Author: Amy Ralph RN Service: ? Author Type: Registered Nurse Type: ED Notes Filed: 06/01/2023 5:29 PM Note Text: Bed: ED-10 Expected date: Expected time: Means of arrival: Comments: Triage when clean [facility] ED PROV NOTEon 06-01-2023 ED PROV NOTE HNO ID: [id number] Author: Salud Flores DO Service: Emergency Medicine [...] Procedure Laterality Date COLONOSCOP W/ OR W/O [facility] SPEC 04/03/12 pt discomfort, normal to transverse colon - ordered BE EGD W/O [facility] SPECIMEN W/BX 04/03/12 mild gastritis HYSTERECTOMY HX [...] No palpable (more content not included)... Normal [facility] FLUABV+SARS-CoV-2+RSV Pnl Re sp ANDRY+probeon 06-01-2023 FLUABV+SARS-CoV-2+RSV Pnl Resp ANDRY+probe COVID 19 RESULT: Not detected The method used is RT-PCR or an equivalent NAAT method. Reference Range(the expected result in uninfected individuals): Not detected INFLUENZA A PCR: Not detected INFLUENZA B PCR: Not detected RSV PCR: Not detected Normal [facility] Comment on above: Performed By: #### 9 5941-1 ####[facility] [id number] [address] [place] HIGH SENSITIVITY TROPONIN T (INITIAL)on 06-01-2023 Troponin T.cardiac High sensitivity method [Mass/Vol] <6 Normal <12 [facility] Comment on above: Order Comment: Renetta la Type: BLOOD SPECIMEN Ordering Facility: [facility] Address: [address] [place] [address] Result Comment: When assessing risk for acute [...] MACE. Performed By: #### 5 8410-2 #### [facility] CLIA [id number] [address] [place] HIGH SENSITIVITY TROPONIN T (SECOND)on 06-01-2023 Troponin T.cardiac High sensitivity method [Mass/Vol] <6 Normal <[address] [place] [address] Comment on above: Order Comment: Renetta la Type: BLOOD SPECIMENOrdering Facility: [facility] Address: [address] [place] [address] Result Comment: When assessing risk for acute [...] day MACE. Performed By: #### 3 3762-6, [id number] ####[facility] [id number] [place] [address] [place] Magnesium SerPl-mCncon 06-01 Magnesium [Mass/Vol] 2.1 mg/dL Normal 1.7-2.3 [facility] Comment on above: Order Comment: Renetta la Type: BLOOD SPECIMEN Ordering Facility: [facility] Address: [address] [place] [address] Performed By: #### 5 8410-2 #### [facility] CLIA [id number] [address] [place] [facility] Natriuretic peptide.B prohormone N-Terminal [Mass/Vol] 131 pg/mL High <125 [facility] Comment on above: Order Comment: Renetta la Type: BLOOD SPECIMENOrdering Facility: [facility] Address: [address] [place] [address] Performed By: #### 3 3762-6, [id number] ####[facility] [id number] [address] [place] PT panel Coag (PPP)on 2022 INR Coag (PPP) [Relative time] 1.0 {INR} Normal 0.9-1.3 [facility] Comment on above: Order Comment: Renetta la Type: BLOOD SPECIMENOrdering Facility: [facility] Address: [address] [place] [address] Result Comment: Tiesha min K Antagonist (VKA) Therapeutic Range: INR 2 to 3 (Target INR of 2.5) Note: For patients treated with VKA drugs, such as warfarin, the [place] [employer] 2012 Guideline recommends [...] Chest 2012, 141:7S-47S Roberta RA, et al. [facility] 2017, 70: 252-289 Performed By: #### 3 4528-0, 35645-2 ####[facility] [id number] [place] [id number] [place] PT Coag (PPP) [Time] 10.3 s Normal 9.7-13.0 [facility] Comment on above: Order Comment: Speci men Type: BLOOD SPECIMENOrdering Facility: [facility] Address: [address] [place] [address] Performed By: #### 3 4528-0, 57141-1 ####[facility] [id number] [place] [id number] [facility] Surgical pathology studyOrde red By: Mia Terry on 06-01-2023 Laboratory comment Ed (Report) a7iszXQvRZYyb2opNBRcuR FuZzEwMzNcZnRuYmpcdWMx OOqgolCwFApsy9WtN9OmRo AwMFxhbnNpXGRlZmxhbmcx VMItGRC9aqRxXIEkTFkhSG KuPQwwGk0nmRWewArzMfEr WJDtg9kxyhOCCRbvDBODRV k7t8rdTMZuShJ3pMEhIMcs K6fqflDawUIhL8Qij0WjFL k9fU71MPQjaZ3iwQUbEDny uhKaAzV1XQvrPSFgMuW9DU DhtVTnMTGtQ6ukFFEgLMjr LBQyYVclnMNkHEJ4gWbeg1 Y9kKDuvEQygRiuFnMcSqPf MhNTu1RiFBx5dUogL7HlTM MrLdG0cZNmLJBqWNgvYMLp GFErycY1vA39MCbzciT8uR Tgf8Vjn59ha469aT6llAOm XLW4BQIaAPRdoZSkLBYvUH E0ZMBzfXBwM8gmIpGwjQQg E5MbWbBvaFRwP6DxFhQqjF MfM1ZaHsPruZQtXBPxsHQ3 FKccd667EVY4BsRuLD0jF7 Idd5C4bC3ygDOwTKVqnTKb JjJyWAFnjg6rcNKaPLcyr5 ShYMQ7xkK2hAGdbNXlQSLf KZ22Igjwj2FeCzdnYQE1WM RwvgIzc8Pqc7prKcIwfuWh R7jjU7XfFRYjXNRbYAJyXz UzyfBvd9Yuc0LxqOVraLo6 k3izRDXaFDKlaWyko7qwOV P5DGXxY2T4cXWrq2bmLGlr GXFovRC2zaZ3POdvGTLczc L4qhE8NFzvBAMeiTB7hcH3 JMjbRNFlZiJ7gmJ6KPskDE SzUIK0NeByRJLrc4Jjqtgp OrVva1KzdYKgXBhyW43ck7 01NDOnjkLpU4pyzCOrdvvs lKVrxntpPHfucjC2YVBgIH BsYWluXGYxXGZzMjBcbGFu ZzEwMzNcaGljaFxmMVxkYm IbAJSkKLvuZ5stEcCtReUe KHHAgNE5nGDao2jlzxA7dI QtUG3qIQYejZNxflShf7S4 GNV5cFXujA3llOUaFUJbdC YfssPfwd31wIXtdHV1MOSe HEVncXOjaW1jAABmPSJTlD 5hbCBJbnRlcnByZXRhdGlv nv8NmDPcio6amWIeW3DrsE lmaWVzIHRoYXQgdGhleSBo VOSsWKQfpspfi3ZsMXWbgH EbV8LeGI3aGYDbpz67 [facility] Work Phone: Pathology report Cancer Narrative Surgical Pathology Case: [id number] Authorizing Provider: Main Reed MD Collected: 05/28/2023 1335 Ordering Location: [facility] Received: 05/28/2023 1415 OR Pathologist: Mia Terry MD Specimen: OVARY OOPHORECTOMY RIGHT, RIGHT OVARY [facility] Work Phone: Pathology report final diagnosis Narrative r7vflRBsBTAepTTnNWNsLL tabnJuHGXmrRQhZ8Nwwyea NLjuBI1xUR1nlDcmrPGvnP BwXUZqJpSsm0zzu888sONs s0ajWXLDNDzpCSUCOVw7zK teP62hx3E6NixkR03eoKCm QWI5KVEoTMFqhDFoREQhNP G9VBOiaXWgQ9hkRQJaXA6q hfxnOPogRCydRHOodTN0VF RmzXYqI6SmPIGzHAyeSWXx spq3GiXxDm2dmYKkhZquYK xwYXJkXHBsYWluXGJcZnMy MCBBLiBSSUdIVCBPVkFSWS wxG29MMJ2PGXSOH60PWUgd YjAgIFxwYXJccGFyZCAtLS DXonQbrVY2wBYqZHAtoUzj P5XsWEAfD7tekCveQOD1 [facility] Work Phone: Pathology report gross observation Narrative y6njhFSjCZGsqYYBRRF5KF PaRE9ypOsytJj5yYluPWDd fuW6zYAiDJzwh2nsWTE7j1 ynmyELSxzhBGCkEE9cHRdy GWCoPV9rOqVhNRCaKiOiUN BhcGVydzEyMjQwXHBhcGVy aDK0KLSfIX6gadoxDEudVK gtIZWalcK9LVZwpKMjJ9Fy RVSzWM5mxrbdPKK2TCCERk heZi1lmQHmgSrrDeLhYuNo ZHHvOHBuMSFeiRgtW0Axb6 ZoQRe9eX9HJpzwXUN4DJMZ CbcfJvboeJkgo9LeyPAbZB NnIFxcaWQgNTEwMDAgXFxk EiBYNvCeLuC1Dxh0QJg9Rf P8WBz0UHEAYKZeRwZ2Axd1 CKY6HNy0YVZaTE7pIEuqjX XrRYfvRyhhZHrtZ664TYer XMDdX0SwO7NmIEcmYzRdFA hzBPTzTALcIHbqLNYoA6HY WZKiGOY4PKH3ZuAqCFc2NN inD1PDWAUtEZX0Drn5NGT0 FmG8GEm8DZMQVj6eDpU6Mi TeXvvtDHN3LaO3RVfenouy MBm0TOSpRLkhucVzGAsySr jsWCsfD22mhZApKQMAVybz bGFpblxlcGljTmVzdERvYz AeFQbjdQDofTIeVJ8PFTs6 cmNoXGZzMjIgQTogUmVjZW j2MRJvzP6rSg9bhREfxI3p TCbkBvDfCKEpb2f1nZR6gU JmyDE1aJCsoHoeFD9ayCGf KM4sTRjoj0LheCEtKJ36uI KapgIzalWlSxEvE5m5XV32 YRW6CozcdUTdEV0zcT53KD U7ERItx3WsdUt0WLQ5nhX6 dKGeSNPnzhUpzOA7cDDbAT ClyLFrRC7btI5mjdSpfSKh gB2ttHzpv6cjwMBjpPnlCZ QiDBd6PaxdBZfle4Z1HUTb y2FmDmBzEXksyPEsf8VgrL 6iTPMtFPY3ZIQvSqI7YLSl MCBjbSBhbmQgMTAuMSBnLi CfPXpvVVN0pUQnspHsXEM4 mnZuD7UraCGtuZ7pXCWnRl umR7xhKSBZORX8fO9hnT0y IHJldmVhbHMgYSBkaXNydX O2CYQvUHGei083fSJzrG9f RJRveVN7LUBapi1sCZUzIn Nzp384RL33wbybaDXmw4Ua dR1pEJIrQUQ9UVBcXAP5NI EiAXJuoK2iFZYlJZQwXM3m mG7kklvbG0Y1HDU8aiYqB5 WrjMPqnMomx9t0WPVvORCn Opj5dGLzsH10LTJtk6OofU c7ATUvBR0ydQ41vmqzHT8d IGZpYnJvdGljLiAgQSBkZW Wejaa4aAAhMS6az1YvoWEo is73LEveDZ14iRFsMNUgVZ KGDEFkBAYxazCwkRz9JRWm LTP7bO2dovYzpqLyq0XppQ p7rJDrNCozZJDxL4Jxr5H5 oYCoKIMfWYmgM8y0HZKoRQ dkobGhaTGyFYA6f2NiLRYZ jB66x5grPOOrdpWlkqKfwP QaDJ6wROPmadXRFbQOU6dx UBXuZKmfs0XzHGxdeBveIE PkOrKkBLeeBUGcX43xy2MX u0Kfy8wqcZoae9BqwUVgWP 27JQBywMCcIGW8EC9naKua YXIgDQpccGFyZCANClxwbG FpbiANCn0= [facility] Work Phone: Pathology report relevant history Narrative q7jwmLAlMPBdi1mmYILlpW OvMkGvBrUoJeZdXxv5KTLu ooT0Mlw2RHVyGVezoQ0yYV AyRPvuR6atwiFvyYOxX1Ou k8ZvSRj2pB3xnKfrjG8nCq LyYgVaQKPItjDvo6UqLTyz C84vj8gxXbjjMFGwJABxFH hhbCBtYXNzIFtOOTQuODld XHBhciB9 [facility] Work Phone: [facility] Work Phone: XR CHEST 1V FRONTAL [...] Jun 01 2023 4:47PM EST [id number] Normal [facility] aPTT PPPon 06-01-2023 aPTT Coag (PPP) [Time] 28.6 s Normal 23.0-32.4 [facility] Comment on above: Order Comment: Speci men Type: BLOOD SPECIMENOrdering Facility: [facility] Address: [address] [place] [address] Performed By: #### 3 4528-0, 78440-7 ####[facility] [id number] [place] [address] [place] ECG 12 leadOrdered By: Mahesh Harrell on 05-29-2023 Atrial Rate 63 BPM [facility] Work Phone: P Cordova 50 degrees [facility] Work Phone: [place] Interval 173 ms [facility] Work Phone: Q Onset 252 ms [facility] Work Phone: QRS Count 12 beats [facility] Work Phone: QRS Duration 89 ms [facility] Work Phone: QT Interval 399 ms [facility] Work Phone: QTC Calculation(Bazett) 418 ms [facility] Work Phone: QTC Fredericia 412 ms [facility] Work Phone: R Cordova 24 degrees [facility] Work Phone: T Cordova 103 degrees [facility] Work Phone: T Offset 452 ms [facility] Work Phone: Ventricular Rate 66 BPM [facility] Work Phone: [facility] Work Phone: ECG 12 leadon 05-29-2023 Sinus rhythm Ventricular premature complex Nonspecific T abnormalities, lateral leads ST elev, probable normal early repol pattern Baseline wander in lead(s) V3,V6 Confirmed by Mahesh Harrell ([id number]) on 05/29/2023 9:35:19 AM MUSE Mahesh Harrell DO - 05/29/2023 Sinus rhythm Ventricular premature complex Nonspecific T abnormalities, lateral leads ST elev, probable normal early repol pattern Baseline wander in lead(s) V3,V6 Confirmed by Mahesh Harrell ([id number]) on 05/29/2023 9:35:19 AM [facility] Work Phone: ECG 12-LEADon 05-28-2023 ECG 12-LEAD Ventricular Rate 66 Atrial Rate 63 P-R Interval 173 QRS Duration 89 Q-T Interval 399 QTC Calculation(Bazett) 418 P Cordova 50 R Cordova 24 T Cordova 103 QRS Count 12 Q Onset 252 T Offset 452 QTC Fredericia 412 Diagnosis Sinus rhythm Ventricular premature complex Nonspecific T abnormalities, lateral leads ST elev, probable normal early repol pattern Baseline wander in lead(s) V3,V6 Confirmed by Mahesh Harrell ([id number]) on 05/29/2023 9:35:19 AM Normal [facility] Surgical pathology studyon 1 07-28-2022 Surgical pathology study Pathology report.total SEE COMMENT Surgical Pathology Case: [id number] Authorizing Provider: Main Reed MD Collected: 05/28/2023 9440 Ordering Location: [facility] Received: 05/28/2023 1415 OR Pathologist: Mia [...] fibrotic. A definitive mass is not identified. Project Inspector sections are submitted in 4 cassettes to include disrupted cyst. Photographs are taken. ANS Normal [facility] Comment on above: Order Comment: Pre-o p diagnosis: Adnexal mass [N94.89] Tropinin I.cardiac panel Hig h sensitivity methodon 05-28-2023 Interpretation and review of laboratory results Normal [facility] Less than 99th percentile of normal [...] performed using a different testing methodology at [facility] than at other [facility]. Direct result comparisons should only be made within the same method. [facility] Troponin I, High Sensitivity , Initialon 05-28-2023 Tropinin I.cardiac panel High sensitivity method 3 ng/L 0 - 13 ng/L [facility] Troponin I.cardiac panelon 1 07-28-2022 Tropinin I.cardiac panel High sensitivity method 3 ng/L Normal 0-[address] [facility] Comment on above: Order Comment: ABNOR [...] performed using a different testing methodology at [facility] than at [facility]. Direct result comparisons should only be made within the same method. Performed By: #### 8 9577-1 #### RADHA Mcclain ([id number]) [facility] ([facility]) [address] [place] [address] POCT UA (nonautomated) hectormarylin jesse resultedon 05-22-2023 Appearance (U) Clear Clear [facility] Work Phone: Glucose Test strip (U) [Mass/Vol] Negative NEGATIVE mg/dl [facility] Work Phone: Hemoglobin Ql (U) Negative NEGATIVE [facility] Work Phone: Leukocyte esterase Test strip Ql (U) Negative NEGATIVE [facility] Work Phone: Nitrite Ql (U) Negative NEGATIVE [facility] Work Phone: pH (U) 6.5 [pH] No Reference Range Established [facility] Work Phone: POC Bilirubin, Urine Negative NEGATIVE [facility] Work Phone: POC Color, Urine Yellow Straw, Yellow, Light-Yellow [facility] Work Phone: POC Ketones, Urine Negative NEGATIVE mg/dl [facility] Work Phone: POC Protein, Urine Negative NEGATIVE, 30 (1+) mg/dl [facility] Work Phone: POC Specific [place], Urine 1.025 1.005 - 1.035 [facility] Work Phone: POC Urobilinogen, Urine 0.2 0.2, 1.0 EU/DL [facility] Work Phone: [facility] Work Phone: CBC W Auto Differential pane l (Bld)on 05-14-2023 Basophils (Bld) [#/Vol] 0.04 10*3/uL [facility] Basophils/100 WBC (Bld) 0.5 % 0.0 - 2.0 % [facility] Eosinophils (Bld) [#/Vol] 0.22 10*3/uL [facility] Eosinophils/100 WBC (Bld) 2.8 % 0.0 - 6.0 % [facility] Erythrocyte distribution width (RBC) [Ratio] 12.8 % 11.5 - 14.5 % [facility] Hematocrit (Bld) [Volume fraction] 43.2 % 36.0 - 46.0 % [facility] Hemoglobin (Bld) [Mass/Vol] 14.1 g/dL 12.0 - 16.0 g/dL [facility] Immature granulocytes (Bld) [#/Vol] 0.02 10*3/uL [facility] Immature granulocytes/100 WBC (Bld) 0.3 % 0.0 - 0.9 % [facility] Comment on above: Immature Granulocyte Count (IG) includes promyelocytes, myelocytes and metamyelocytes but does not include bands. Percent differential counts (%) should be interpreted in the context of the absolute cell counts (cells/UL). Lymphocytes (Bld) [#/Vol] 2.58 10*3/uL [facility] Lymphocytes/100 WBC (Bld) 32.3 % 13.0 - 44.0 % [facility] MCH (RBC) [Entitic mass] 29.7 pg 26.0 - 34.0 pg [facility] MCHC (RBC) [Mass/Vol] 32.6 g/dL 32.0 - 36.0 g/dL [facility] MCV (RBC) [Entitic vol] 91 fL 80 - 100 fL [facility] Monocytes (Bld) [#/Vol] 0.48 10*3/uL [facility] Monocytes/100 WBC (Bld) 6.0 % 2.0 - 10.0 % [facility] Neutrophils (Bld) [#/Vol] 4.66 10*3/uL [facility] Comment on above: Percent differential counts (%) should be interpreted in the context of the absolute cell counts (cells/uL). Neutrophils/100 WBC (Bld) 58.1 % 40.0 - 80.0 % [facility] Nucleated RBC/100 WBC (Bld) [Ratio] 0.0 % [facility] Platelets (Bld) [#/Vol] 352 10*3/uL [facility] RBC (Bld) [#/Vol] 4.74 10*6/uL [facility] WBC (Bld) [#/Vol] 8.0 10*3/uL [facility] Basophils (Bld) [#/Vol] 0.04 x10*3/uL Normal 0.00-0.10 [facility] Comment on above: Performed By: #### 5 7021-8 #### RIRI Hawkins ([id number]) [facility] ([facility]) [address] [place] [address] Basophils/100 WBC (Bld) 0.5 % Normal 0.0-2.0 [facility] Comment on above: Performed By: #### 5 7021-8 #### RIRI Hawkins ([id number]) [facility] ([facility]) [address] [place] [address] Eosinophils (Bld) [#/Vol] 0.22 x10*3/uL Normal 0.00-0.70 [facility] Comment on above: Performed By: #### 5 7021-8 #### RIRI Hawkins ([id number]) [facility] ([facility]) [address] [place] [address] Eosinophils/100 WBC (Bld) 2.8 % Normal 0.0-6.0 [facility] Comment on above: Performed By: #### 5 7021-8 #### RIRI Hawkins ([id number]) [facility] ([facility]) [address] [place] [address] Erythrocyte distribution width (RBC) [Ratio] 12.8 % Normal 11.5-14.5 [facility] Comment on above: Performed By: #### 5 7021-8 #### RIRI Hawkins ([id number]) [facility] ([facility]) [address] [place] [address] Hematocrit (Bld) [Volume fraction] 43.2 % Normal 36.0-46.0 [facility] Comment on above: Performed By: #### 5 7021-8 #### RIRI Hawkins ([id number]) [facility] ([facility]) [address] [place] [address] Hemoglobin (Bld) [Mass/Vol] 14.1 g/dL Normal 12.0-16.0 [facility] Comment on above: Performed By: #### 5 7021-8 #### RIRI Hawkins ([id number]) [facility] ([facility]) [address] [place] [address] Immature granulocytes (Bld) [#/Vol] 0.02 x10*3/uL Normal 0.00-0.70 [facility] Comment on above: Performed By: #### 5 7021-8 #### RIRI Hawkins ([id number]) [facility] ([facility]) [address] [place] [address] Immature granulocytes/100 WBC (Bld) 0.3 % Normal 0.0-0.9 [facility] Comment on above: Result Comment: Evelina ture Granulocyte Count (IG) includes promyelocytes, myelocytes and metamyelocytes but does not include bands. Percent differential counts (%) should be interpreted in the context of the absolute cell counts (cells/UL). Performed By: #### 5 7021-8 #### RIRI Hawkins ([id number]) [facility] ([facility]) [address] [place] [address] Lymphocytes (Bld) [#/Vol] 2.58 x10*3/uL Normal 1.20-4.80 [facility] Comment on above: Performed By: #### 5 7021-8 #### RIRI Hawkins ([id number]) [facility] ([facility]) [address] [place] [address] Lymphocytes/100 WBC (Bld) 32.3 % Normal 13.0-44.0 [facility] Comment on above: Performed By: #### 5 7021-8 #### RIRI Hawkins ([id number]) [facility] ([facility]) [address] [place] [address] MCH (RBC) [Entitic mass] 29.7 pg Normal 26.0-34.0 [facility] Comment on above: Performed By: #### 5 7021-8 #### RIRI Hawkins ([id number]) [facility] ([facility]) [address] [place] [address] MCHC (RBC) [Mass/Vol] 32.6 g/dL Normal 32.0-36.0 [facility] Comment on above: Performed By: #### 5 7021-8 #### RIRI Hawkins ([id number]) [facility] ([facility]) [address] [facility] [place] [address] MCV (RBC) [Entitic vol] 91 fL Normal 80-100 [facility] Comment on above: Performed By: #### 5 7021-8 #### RIRI Hawkins ([id number]) [facility] ([facility]) [address] [place] [address] Monocytes (Bld) [#/Vol] 0.48 x10*3/uL Normal 0.10-1.00 [facility] Comment on above: Performed By: #### 5 7021-8 #### RIRI Hawkins ([id number]) [facility] ([facility]) [address] [place] [address] Monocytes/100 WBC (Bld) 6.0 % Normal 2.0-10.0 [facility] Comment on above: Performed By: #### 5 7021-8 #### RIRI Hawkins ([id number]) [facility] ([facility]) [address] [place] [address] Neutrophils (Bld) [#/Vol] 4.66 x10*3/uL Normal 1.20-7.70 [facility] Comment on above: Result Comment: Perc ent differential counts (%) should be interpreted in the context of the absolute cell counts (cells/uL). Performed By: #### 5 7021-8 #### RIRI Hawkins ([id number]) [facility] ([facility]) [address] [place] [address] Neutrophils/100 WBC (Bld) 58.1 % Normal 40.0-80.0 [facility] Comment on above: Performed By: #### 5 7021-8 #### RIRI Hawkins ([id number]) [facility] ([facility]) [address] [place] [address] Nucleated RBC/100 WBC (Bld) [Ratio] 0.0 /100 WBCs Normal 0.0-0.0 [facility] Comment on above: Performed By: #### 5 7021-8 #### RIRI Hawkins ([id number]) [facility] ([facility]) [address] [place] [address] Platelets (Bld) [#/Vol] 352 x10*3/uL Normal 150-450 [facility] Comment on above: Performed By: #### 5 7021-8 #### RIRI DONISGERS Shruthi ([id number]) [facility] ([facility]) [address] [place] [address] RBC (Bld) [#/Vol] 4.74 x10*6/uL Normal 4.00-5.20 [facility] Comment on above: Performed By: #### 5 7021-8 #### RIRI Hawkins ([id number]) [facility] ([facility]) [address] [place] [address] WBC (Bld) [#/Vol] 8.0 x10*3/uL Normal 4.4-11.3 [facility] Comment on above: Performed By: #### 5 7021-8 #### RIRI Hawkins ([id number]) [facility] ([facility]) [address] [place] [address] CT ABDOMEN PELVIS WO IV CONT RASTon 05-14-2023 CT ABDOMEN PELVIS WO IV CONTRAST STUDY: CT Abdomen and Pelvis without IV Contrast; 05/14/2023 at 5:41 PM. INDICATION: Pain. COMPARISON: US pelvis 03/09/2023; CT AP 03/08/2023. ACCESSION NUMBER(S): [id number] ORDERING CLINICIAN: MERCEDES AZUL TECHNIQUE: CT of [...] side.. Signed by Jose C Paz MD [facility] CT Abdomen WO contraston 2 nonobstructing calculi are seen in the lower pole collecting system on the right but no additional calculi are seen and there is no hydronephrosis on either side.. Signed by Jose C Paz MD TELERADIOLOGY STUDY: CT Abdomen and Pelvis without IV Contrast; 05/14/2023 at 5:41 PM. INDICATION: Pain. COMPARISON: US pelvis 03/09/2023; CT AP 03/08/2023. ACCESSION NUMBER(S): [id number] ORDERING CLINICIAN: MERCEDES AZUL TECHNIQUE: CT of [...] pelvis 03/09/2023; CT AP 03/08/2023. ACCESSION NUMBER(S): [id number] ORDERING CLINICIAN: MERCEDES AZUL TECHNIQUE: CT of [...] side.. Signed by Jose C Paz MD [facility] Work Phone: Radiology Study observation (narrative) [facility] Work Phone: CT Abdomen WO contrastOrdere d By: Jose C Paz on 05-14-2023 [facility] Work Phone: Comprehensive metabolic 2000 panelon 05-14-2023 Albumin BCP dye [Mass/Vol] 4.2 g/dL 3.4 - 5.0 g/dL [facility] ALP [Catalytic activity/Vol] 57 U/L 33 - 110 U/L [facility] ALT With P-5'-P [Catalytic activity/Vol] 14 U/L 7 - 45 U/L [facility] Comment on above: Patients treated wit h Sulfasalazine may generate falsely decreased results for ALT. Anion gap [Moles/Vol] 12 mmol/L 10 - 2 0 mmol/L [facility] AST With P-5'-P [Catalytic activity/Vol] 16 U/L 9 - 39 U/L [facility] Bilirubin [Mass/Vol] 0.3 mg/dL 0.0 - 1 .2 mg/dL [facility] Calcium [Mass/Vol] 9.4 mg/dL 8.6 - 10. 3 mg/dL [facility] Chloride [Moles/Vol] 104 mmol/L 98 - 10 7 mmol/L [facility] CO2 [Moles/Vol] 28 mmol/L 21 - 32 mmol/L [facility] Creatinine [Mass/Vol] 1.17 mg/dL High 0.50 - 1.05 mg/dL [facility] GFR/1.73 sq M.predicted MDRD (S/P/Bld) [Vol rate/Area] 58 mL/min/{1.73_m2} Low - PINF [facility] Comment on above: Calculations of nura mated GFR are performed using the 2020 CKD-EPI Study Refit equation without the race variable for the IDMS-Traceable creatinine methods. https://jasn.asnjournals.org/content/early//ASN.55526 31240 Glucose [Mass/Vol] 93 mg/dL 74 - 99 mg/dL [facility] Interpretation and review of laboratory results Abnormal [facility] Potassium [Moles/Vol] 3.9 mmol/L 3.5 - 5.3 mmol/L [facility] Protein [Mass/Vol] 7.2 g/dL 6.4 - 8.2 g/dL [facility] Sodium [Moles/Vol] 140 mmol/L 136 - 145 mmol/L [facility] Urea nitrogen [Mass/Vol] 21 mg/dL 6 - 23 mg/dL [facility] Albumin BCP dye [Mass/Vol] 4.2 g/dL Normal 3.4-5.0 [facility] Comment on above: Performed By: #### 2 4323-8 #### RIRI Hawkins ([id number]) [facility] ([facility]) [address] [place] [address] ALP [Catalytic activity/Vol] 57 U/L Normal 33-110 [facility] Comment on above: Performed By: #### 2 4323-8 #### RIRI Hawkins ([id number]) [facility] ([facility]) [address] [place] [address] ALT With P-5'-P [Catalytic activity/Vol] 14 U/L Normal 7-45 [facility] Comment on above: Result Comment: Anjelica ents treated with Sulfasalazine may generate falsely decreased results for ALT. Performed By: #### 2 4323-8 #### RIRI Hawkins ([id number]) [facility] ([facility]) [address] [place] [address] Anion gap [Moles/Vol] 12 mmol/L Normal 10-20 [facility] Comment on above: Performed By: #### 2 4323-8 #### RIRI Hawkins ([id number]) [facility] ([facility]) [address] [place] [address] AST With P-5'-P [Catalytic activity/Vol] 16 U/L Normal 9-39 [facility] Comment on above: Performed By: #### 2 4323-8 #### RIRI Hawkins ([id number]) [facility] ([facility]) [address] [place] [address] Bilirubin [Mass/Vol] 0.3 mg/dL Normal 0.0-1.2 [facility] Comment on above: Performed By: #### 2 4323-8 #### RIRI Hawkins ([id number]) [facility] ([facility]) [address] [place] [address] Calcium [Mass/Vol] 9.4 mg/dL Normal 8.6-10.3 [facility] Comment on above: Performed By: #### 2 4323-8 #### RIRI Hawkins ([id number]) [facility] ([facility]) [address] [place] [address] Chloride [Moles/Vol] 104 mmol/L Normal 98-107 [facility] Comment on above: Performed By: #### 2 4323-8 #### RIRI Hawkins ([id number]) [facility] ([facility]) [address] [place] [address] CO2 [Moles/Vol] 28 mmol/L Normal 21-32 [facility] Comment on above: Performed By: #### 2 4323-8 #### RIRI Hawkins ([id number]) [facility] ([facility]) [address] [place] [address] Creatinine [Mass/Vol] 1.17 mg/dL High 0.50-1.05 [facility] Comment on above: Performed By: #### 2 4323-8 #### RIRI Hawkins ([id number]) [facility] ([facility]) [address] [place] [address] GFR/1.73 sq M.predicted MDRD (S/P/Bld) [Vol rate/Area] 58 mL/min/1.73m*2 Low >60 [facility] Comment on above: Result Comment: Calc ulations of estimated GFR are performed using the 2020 CKD-EPI Study Refit equation without the race variable for the IDMS-Traceable creatinine methods. https://jasn.asnjournals.org/content/early/ASN.53197 41126 Performed By: #### 2 4323-8 #### RIRI Hawkins ([id number]) [facility] ([facility]) [address] [place] [address] Glucose [Mass/Vol] 93 mg/dL Normal 74-99 [facility] Comment on above: Performed By: #### 2 4323-8 #### RIRI Hawkins ([id number]) [facility] ([facility]) [address] [place] [address] Potassium [Moles/Vol] 3.9 mmol/L Normal 3.5-5.3 [facility] Comment on above: Performed By: #### 2 4323-8 #### RIRI Hawkins ([id number]) [facility] ([facility]) [address] [place] [address] Protein [Mass/Vol] 7.2 g/dL Normal 6.4-8.2 [facility] Comment on above: Performed By: #### 2 4323-8 #### RIRI Hawkins ([id number]) [facility] ([facility]) [address] [place] [address] Sodium [Moles/Vol] 140 mmol/L Normal 136-145 [facility] Comment on above: Performed By: #### 2 4323-8 #### RIRI Hawkins ([id number]) [facility] ([facility]) [address] [place] [address] Urea nitrogen [Mass/Vol] 21 mg/dL Normal 6-23 [facility] Comment on above: Performed By: #### 2 4323-8 #### RIRI Hawkins ([id number]) [facility] ([facility]) [address] [place] [address] FLUAV and FLUBV RNA ANDRY+prob e Nom (Unsp spec)on 05-14-2023 FLUAV RNA ANDRY+probe Ql (Resp) Not detected Not Detected [facility] FLUBV RNA ANDRY+probe Ql (Resp) Not detected Not Detected [facility] This assay is an in vitro diagnostic multiplex nucleic acid amplification test for the detection and discrimination of Influenza A & B from nasopharyngeal specimens, and has been validated for use at [facility]. Negative results do not preclude Influenza A/B infections, and should not be used as the sole basis for diagnosis, treatment, or other management decisions. If Influenza A/B and RSV PCR results are negative, testing for Parainfluenza virus, Adenovirus and Metapneumovirus is routinely performed for [facility] pediatric oncology and intensive care inpatients, and is available on other patients by placing an add-on request. [facility] FLUAV RNA ANDRY+probe Ql (Resp) Not detected Normal Not Detected [facility] Comment on above: Order Comment: This assay is an in vitro diagnostic multiplex nucleic acid amplification test for the detection and discrimination of Influenza A & B from nasopharyngeal specimens, and has been validated for use at [facility]. Negative results do not preclude Influenza A/B infections, and should not be used as the sole basis for diagnosis, treatment, or other management decisions. If Influenza A/B and RSV PCR results are negative, testing for Parainfluenza virus, Adenovirus and Metapneumovirus is routinely performed for [facility] pediatric oncology and intensive care inpatients, and is available on other patients by placing an add-on request. Performed By: #### 4 8509-4 #### RIRI Hawkins ([id number]) [facility] ([facility]) [address] [place] [address] FLUBV RNA ANDRY+probe Ql (Resp) Not detected Normal Not Detected [facility] Comment on above: Order Comment: This assay is an in vitro diagnostic multiplex nucleic acid amplification test for the detection and discrimination of Influenza A & B from nasopharyngeal specimens, and has been validated for use at [facility]. Negative results do not preclude Influenza A/B infections, and should not be used as the sole basis for diagnosis, treatment, or other management decisions. If Influenza A/B and RSV PCR results are negative, testing for Parainfluenza virus, Adenovirus and Metapneumovirus is routinely performed for [facility] pediatric oncology and intensive care inpatients, and is available on other patients by placing an add-on request. Performed By: #### 4 8509-4 #### RIRI Hawkins ([id number]) [facility] ([facility]) [address] [place] [address] Lactateon 05-14-2023 Lactate [Moles/Vol] 0.9 mmol/L 0.4 - 2. 0 mmol/L [facility] Lactate [Moles/Vol] 0.9 mmol/L Normal 0.4-2.0 [facility] Comment on above: Order Comment: Venip uncture immediately after or during the administration of Metamizole may lead to falsely low results. Testing should be performed immediately prior to Metamizole dosing. Performed By: #### 2 524-7 #### RIRI Hawkins ([id number]) [facility] ([facility]) [address] [place] [address] Lactate [Moles/Vol]on 2022 Interpretation and review of laboratory results Normal [facility] Venipuncture immediately after or during the administration of Metamizole may lead to falsely low results. Testing should be performed immediately prior to Metamizole dosing. [facility] Lipaseon 05-14-2023 Lipase [Catalytic activity/Vol] 42 U/L 9 - 82 U/L [facility] Lipase [Catalytic activity/V ol]on 05-14-2023 Interpretation and review of laboratory results Normal [facility] Venipuncture immediately after or during the administration of Metamizole may lead to falsely low results. Testing should be performed immediately prior to Metamizole dosing. [facility] No Panel Informationon 05-14 Interpretation and review of laboratory results Normal [facility] RSV PCRon 05-14-2023 RSV RNA ANDRY+probe Ql (Resp) Not detected Not Detected [facility] RSV RNA ANDRY+probe Ql (Resp)o n 05-14-2023 This assay is an FDA-cleared, in vitro diagnostic nucleic acid amplification test for the detection of RSV from nasopharyngeal specimens, and has been validated for use at [facility]. Negative results do not preclude RSV infections, and should not be used as the sole basis for diagnosis, treatment, or other management decisions. If Influenza A/B and RSV PCR results are negative, testing for Parainfluenza virus, Adenovirus and Metapneumovirus is routinely performed for pediatric oncology and intensive care inpatients at [facility], and is available on other patients by placing an add-on request. [facility] Respiratory syncytial virus RNAon 05-14-2023 RSV RNA ANDRY+probe Ql (Resp) Not detected Normal Not Detected [facility] Comment on above: Order Comment: This assay is an FDA-cleared, in vitro diagnostic nucleic acid amplification test for the detection of RSV from nasopharyngeal specimens, and has been validated for use at [facility]. Negative results do not preclude RSV infections, and should not be used as the sole basis for diagnosis, treatment, or other management decisions. If Influenza A/B and RSV PCR results are negative, testing for Parainfluenza virus, Adenovirus and Metapneumovirus is routinely performed for pediatric oncology and intensive care inpatients at [facility], and is available on other patients by placing an add-on request. Performed By: #### 9 2131-2 #### RIRI Hawkins ([id number]) [facility] ([facility]) [address] [place] [address] SARS coronavirus 2 RNAon SARS-CoV-2 (COVID-19) RNA ANDRY+probe Ql (Resp) Not detected Normal Not Detected [facility] Comment on above: Order Comment: [...] and has been validated for use at [facility]. Negative results do not preclude COVID-19 infections and should not be used as the sole basis for diagnosis, treatment, or other management decisions. Performed By: #### 9 4500-6 #### RIRI Hawkins ([id number]) [facility] ([facility]) [address] [place] [address] SARS-CoV-2 (COVID-19) RNA NA A+probe Ql (Resp)on [...] and has been validated for use at [facility]. Negative results do not preclude COVID-19 infections and should not be used as the sole basis for diagnosis, treatment, or other management decisions. [facility] Sars-CoV-2 PCR, Symptomatico n 05-14-2023 SARS-CoV-2 (COVID-19) RNA ANDRY+probe Ql (Resp) Not detected Not Detected [facility] Triacylglycerol lipaseon Lipase [Catalytic activity/Vol] 42 U/L Normal 9-82 [facility] Comment on above: Order Comment: Venip uncture immediately after or during the administration of Metamizole may lead to falsely low results. Testing should be performed immediately prior to Metamizole dosing. Performed By: #### 3 040-3 #### RIRI Hawkins ([id number]) [facility] ([facility]) [address] [place] [address] Tropinin I.cardiac panel Hig h sensitivity methodon 05-14-2023 Interpretation and review of laboratory results Normal [facility] Less than 99th percentile of normal [...] performed using a different testing methodology at [facility] than at other [facility]. Direct result comparisons should only be made within the same method. [facility] Troponin I, High Sensitivity on 05-14-2023 Tropinin I.cardiac panel High sensitivity method 4 ng/L 0 - 13 ng/L [facility] Troponin I.cardiac panelon 1 07-14-2022 Tropinin I.cardiac panel High sensitivity method 4 ng/L Normal 0-13 [facility] Comment on above: Order Comment: [...] performed using a different testing methodology at [facility] than at other [facility]. Direct result comparisons should only be made within the same method. Performed By: #### 8 9577-1 #### RIRI Hawkins ([id number]) [facility] ([facility]) [address] [place] [address] Urinalysis complete panel (U )on 05-14-2023 Appearance (U) Hazy Abnormal Clear [facility] Bilirubin (U) [Mass/Vol] Negative NEGATIVE [facility] Color (U) Yellow Straw, Yellow [facility] Glucose Auto test strip (U) [Mass/Vol] Negative NEGATIVE mg/dL [facility] Interpretation and review of laboratory results Abnormal [facility] Ketones (U) [Mass/Vol] Negative NEGAT MARIBELL mg/dL [facility] Leukocyte esterase Auto test strip Ql (U) Negative NEGATIVE [facility] Nitrite Auto test strip Ql (U) Negative NEGATIVE [facility] pH (U) 7.0 [pH] 5.0, 5.5, 6.0, 6.5, 7.0, 7.5, 8.0 [facility] Protein (U) [Mass/Vol] Negative NEGAT MARIBELL mg/dL [facility] RBC (U) [#/Vol] Negative NEGATIVE [facility] Specific gravity (U) [Rel density] 1.017 1.005 - 1.035 [facility] Urobilinogen (U) [Mass/Vol] mg/dL NINF - 2.0 mg/dL [facility] Appearance (U) Hazy Normal Clear [facility] Comment on above: Performed By: #### 2 4356-8 ####RIRI Hawkins ([id number])[facility] ([facility])[address] [place] [address] Bilirubin (U) [Mass/Vol] Negative Normal NEGATIVE [facility] Comment on above: Performed By: #### 2 4356-8 ####RIRI Hawkins ([id number])[facility] ([facility])[address] [place] [address] Color (U) Yellow Normal Straw, Yellow [facility] Comment on above: Performed By: #### 2 4356-8 ####RIRI Hawkins ([id number])[facility] ([facility])[address] [place] [address] Glucose Auto test strip (U) [Mass/Vol] Negative Normal NEGATIVE [facility] Comment on above: Performed By: #### 2 4356-8 ####RIRI Hawkins ([id number])[facility] ([facility])[address] [place] [address] Ketones (U) [Mass/Vol] Negative Normal NEGATIVE [facility] Comment on above: Performed By: #### 2 4356-8 ####RIRI Hawkins ([id number])[facility] ([facility])[address] [place] [address] Leukocyte esterase Auto test strip Ql (U) Negative Normal NEGATIVE [facility] Comment on above: Performed By: #### 2 4356-8 ####RIRI Hawkins ([id number])[facility] ([facility])[address] [place] [address] Nitrite Auto test strip Ql (U) Negative Normal NEGATIVE [facility] Comment on above: Performed By: #### 2 4356-8 ####RIRI Hawkins ([id number])[facility] ([facility])[address] [place] [address] pH (U) 7.0 [pH] Normal 5.0, 5.5, 6.0, 6.5, 7.0, 7.5, 8.0 [facility] Comment on above: Performed By: #### 2 4356-8 ####RIRI Hawkins ([id number])[facility] ([facility])[address] [place] [address] Protein (U) [Mass/Vol] Negative Normal NEGATIVE [facility] Comment on above: Performed By: #### 2 4356-8 ####RIRI Hawkins ([id number])[facility] ([facility])[address] [place] [address] RBC (U) [#/Vol] Negative Normal NEGATIVE [facility] Comment on above: Performed By: #### 2 4356-8 ####RIRI Hawkins ([id number])[facility] ([facility])[address] [place] [address] Specific gravity (U) [Rel density] 1.017 Normal 1.005-1.035 [facility] Comment on above: Performed By: #### 2 4356-8 ####RIRI Hawkins ([id number])[facility] ([facility])[address] [place] [address] Urobilinogen (U) [Mass/Vol] mg/dL Normal <2.0 [facility] Comment on above: Performed By: #### 2 4356-8 ####RIRI Hawkins ([id number])[facility] ([facility])[address] [place] [address] XR CHEST 1 VIEWon 05-14-2023 XR CHEST 1 VIEW STUDY: Chest Radiograph; 05/14/2023 at 5:17 PM INDICATION: Chest pain. COMPARISON: 03/11/23 XR Chest ACCESSION NUMBER(S): [id number] ORDERING CLINICIAN: MERCEDES AZUL TECHNIQUE: Frontal chest was obtained at 17:17 hours. FINDINGS: CARDIOMEDIASTINAL SILHOUETTE: Cardiomediastinal silhouette is normal in size and configuration. LUNGS: Lungs are clear. ABDOMEN: No remarkable upper abdominal findings. BONES: No acute osseous changes. IMPRESSION: No regions of airspace consolidation. Signed by Riri Zavala MD [facility] XR Chest Single viewon 05-14 No regions of airspa ce consolidation. Signed by Riri Zavala MD TELERADIOLOGY STUDY: Chest Radiograph; 05/14/2023 at 5:17 PM INDICATION: Chest pain. COMPARISON: 03/11/23 XR Chest ACCESSION NUMBER(S): [id number] ORDERING CLINICIAN: MERCEDES AZUL TECHNIQUE: Frontal chest was obtained at 17:17 hours. FINDINGS: CARDIOMEDIASTINAL SILHOUETTE: Cardiomediastinal silhouette is normal in size and configuration. LUNGS: Lungs are clear. ABDOMEN: No remarkable upper abdominal findings. BONES: No acute osseous changes. TELERADIOLOGY Riri Zavala MD - 05/14/2023 STUDY: Chest Radiograph; 05/14/2023 at 5:17 PM INDICATION: Chest pain. COMPARISON: 03/11/23 XR Chest ACCESSION NUMBER(S): [id number] ORDERING CLINICIAN: MERCEDES AZUL TECHNIQUE: Frontal chest was obtained at 17:17 hours. FINDINGS: CARDIOMEDIASTINAL SILHOUETTE: Cardiomediastinal silhouette is normal in size and configuration. LUNGS: Lungs are clear. ABDOMEN: No remarkable upper abdominal findings. BONES: No acute osseous changes. IMPRESSION: No regions of airspace consolidation. Signed by Riri Zavala MD [facility] Work Phone: Radiology Study observation (narrative) [facility] Work Phone: XR Chest Single viewOrdered By: Riri Zavala on 05-14-2023 [facility] Work Phone: Surgical pathology studyon 1 Surgical pathology study Pathology report.total SEE COMMENT Surgical Pathology Case: [id number] Authorizing Provider: Janny Bai MD Collected: 04/24/2023 1028 Ordering Location: [facility] Received: 04/25/2023 1155 Center Pathologist: Radha Sheridan [...] is submitted in toto in one cassette. [facility] Path report.microscopic observation Microscopic slides examined. [facility] HIV 1/2 ANTIGEN/ANTIBODY SCR EEN WITH REFLEX TO CONFIRMATIONon 03-26-2023 HIV 1+2 Ab Qn (S) Non-Reactive See Below [facility] Work Phone: Comment on above: SOURCE: Reference Ra nge: NONREACTIVE HIV Ag/Ab screen is performed using the Siemens [employer]ell[employer] HIV Ag/Ab Combo assay which detects the presence of HIV p24 antigen as well as antibodies to HIV-1 (Group M and O) and HIV-2..No laboratory evidence of HIV infection. If acute HIV infection is suspected, consider testing for HIV RNA by PCR (viral load). Hemoglobin A1Con 03-26-2023 Glucose [Mass/Vol] 108 mg/dL [facility] Work Phone: HbA1c (Bld) [Mass fraction] 5.4 % [facility] Work Phone: Comment on above: Diagnosis of Diabete s-Adults Non-Diabetic: < or = 5.6% Increased risk for developing diabetes: 5.7-6.4% Diagnostic of diabetes: > or = 6.5%. Monitoring of Diabetes Age (y) Therapeutic Goal (%) Adults: >18 <7.0 Pediatrics: 13-18 <7.5 7-12 <8.0 0- 6 7.5-8.5 [employer]. Diabetes Care 33(S1), Jul 2009. Hepatitis C Antibody Teston 03-26-2023 Hepatitis C Antibody Test Non-Reactive See Below [facility] Work Phone: Comment on above: SOURCE: Reference Ra nge: NONREACTIVE Results from patients taking biotin supplements or receiving high-dose biotin therapy should be interpreted with caution due to possible interference with this test. Providers may contact their local laboratory for further information. Lipid Panelon 03-26-2023 Cholesterol [Mass/Vol] 178 mg/dL 0 - 199 [facility] Work Phone: Comment on above: SOURCE: [...] dosing. Cholesterol in HDL [Mass/Vol] 56.2 mg/dL [facility] Work Phone: Comment on above: . AGE VERY LOW LOW N ORMAL HIGH 0-19 Y < 35 < 40 40-45 ---- 20-24 Y ---- < 40 >45 ---- >24 Y ---- < 40 40-60 >60. Cholesterol in LDL [Mass/Vol] 103 mg/dL above high threshold 0 - 99 [facility] Work Phone: Comment on above: . NEAR BORD AGE BECKY RABLE OPTIMAL HIGH HIGH VERY HIGH 0-19 Y 0 - 109 --- 110-129 >/= 130 ---- 20-24 Y 0 - 119 --- 120-159 >/= 160 ---- >24 Y 0 - 99 100-129 130-159 160-189 >/=190. Cholesterol.total/Chol esterol in HDL [Mass ratio] 3.2 {ratio} [facility] Work Phone: Comment on above: REF VALUESDESIRABLE < 3.4HIGH RISK > 5.0 Triglyceride [Mass/Vol] 93 mg/dL 0 - 149 [facility] Work Phone: Comment on above: . [...] Lipid Panel 19 mg/dL 0 - 40 [facility] Work Phone: Vitamin D 25-Hydroxyon 03-26 25-hydroxyvitamin D3 [Mass/Vol] 57 ng/mL [facility] Work Phone: Comment on above: SOURCE: .DEFICIENCY: < 20 NG/MLINSUFFICIENCY: 20-29 NG/MLSUFFICIENCY: 30-100 NG/MLTHIS ASSAY ACCURATELY QUANTIFIES THE SUM OFVITAMIN D3, 25-HYDROXY AND VIT D2,25-HYDROXY. BASIC METABOLIC PANELon 03-02 Anion gap [Moles/Vol] 10 mmol/L Normal 10 - 20 [facility] Comment on above: Performed By: #### B MP #### [facility] [address] [place] [address] Calcium [Mass/Vol] 9.0 mg/dL Normal 8.6 - 10.3 [facility] Comment on above: Performed By: #### B MP #### [facility] [address] [place] [address] Chloride [Moles/Vol] 101 mmol/L Normal 98 - 107 [facility] Comment on above: Performed By: #### B MP #### [facility] [address] [place] [address] Creatinine [Mass/Vol] 1.06 mg/dL High 0.50 - 1.05 [facility] Comment on above: Performed By: #### B MP #### [facility] [address] [place] [address] GFR/1.73 sq M.predicted among non-blacks MDRD (S/P/Bld) [Vol rate/Area] 65 mL/min/{1.73_m2} Normal >90 [facility] Comment on above: Result Comment: CALC ULATIONS OF ESTIMATED GFR ARE PERFORMED USING THE 2020 CKD-EPI STUDY REFIT EQUATION WITHOUT THE RACE VARIABLE FOR THE IDMS-TRACEABLE CREATININE METHODS. https://jasn.asnjournals.org/content//ASN.17869 20086 Performed By: #### B MP #### [facility] [address] [place] [address] Glucose [Mass/Vol] 90 mg/dL Normal 74 - 99 [facility] Comment on above: Performed By: #### B MP #### [facility] [address] [place] [address] HCO3 (Bld) [Moles/Vol] 31 mmol/L Normal 21 - 32 [facility] Comment on above: Performed By: #### B MP #### [facility] [address] [place] [address] Potassium [Moles/Vol] 3.8 mmol/L Normal 3.5 - 5.3 [facility] Comment on above: Performed By: #### B MP #### [facility] [address] [place] [address] Sodium [Moles/Vol] 138 mmol/L Normal 136 - 145 [facility] Comment on above: Performed By: #### B MP #### [facility] [address] [place] [address] Urea nitrogen [Mass/Vol] 11 mg/dL Normal 6 - 23 [facility] Comment on above: Performed By: #### B MP #### [facility] [address] [place] [address] ANION GAP Canceled Normal [facility] Comment on above: Order Comment: TEST BASIC METABOLIC PANEL WAS CANCELLED, 03/14/2023 10:39 Performed By: #### T RPHS #### [facility] [address] [place] [address] BICARBONATE Canceled Normal [facility] Comment on above: Order Comment: TEST BASIC METABOLIC PANEL WAS CANCELLED, 03/14/2023 10:39 Performed By: #### T RPHS #### [facility] [address] [place] [address] CALCIUM Canceled Normal [facility] Comment on above: Order Comment: TEST BASIC METABOLIC PANEL WAS CANCELLED, 03/14/2023 10:39 Performed By: #### T RPHS #### [facility] [address] [place] [address] CHLORIDE Canceled Normal [facility] Comment on above: Order Comment: TEST BASIC METABOLIC PANEL WAS CANCELLED, 03/14/2023 10:39 Performed By: #### T RPHS #### [facility] [address] [place] [address] CREATININE Canceled Normal [facility] Comment on above: Order Comment: TEST BASIC METABOLIC PANEL WAS CANCELLED, 03/14/2023 10:39 Performed By: #### T RPHS #### [facility] [address] [facility] [place] [address] eGFR FEMALE Canceled Normal [facility] Comment on above: Order Comment: TEST BASIC METABOLIC PANEL WAS CANCELLED, 03/14/2023 10:39 Result Comment: CALC ULATIONS OF ESTIMATED GFR ARE PERFORMED USING THE 2020 CKD-EPI STUDY REFIT EQUATION WITHOUT THE RACE VARIABLE FOR THE IDMS-TRACEABLE CREATININE METHODS. https://jasn.asnjournals.org/content//ASN.48882 60081 Performed By: #### T RPHS #### [facility] [address] [place] [address] eGFR MALE Canceled Normal [facility] Comment on above: Order Comment: TEST BASIC METABOLIC PANEL WAS CANCELLED, 03/14/2023 10:39 Result Comment: CALC ULATIONS OF ESTIMATED GFR ARE PERFORMED USING THE 2020 CKD-EPI STUDY REFIT EQUATION WITHOUT THE RACE VARIABLE FOR THE IDMS-TRACEABLE CREATININE METHODS. https://jasn.asnjournals.org/content//ASN.48032 56140 Performed By: #### T RPHS #### [facility] [address] [facility] [place] [address] GLUCOSE Canceled Normal [facility] Comment on above: Order Comment: TEST BASIC METABOLIC PANEL WAS CANCELLED, 03/14/2023 10:39 Performed By: #### T RPHS #### [facility] [address] [place] [address] POTASSIUM Canceled Normal [facility] Comment on above: Order Comment: TEST BASIC METABOLIC PANEL WAS CANCELLED, 03/14/2023 10:39 Performed By: #### T RPHS #### [facility] [address] [place] [address] SODIUM Canceled Normal [facility] Comment on above: Order Comment: TEST BASIC METABOLIC PANEL WAS CANCELLED, 03/14/2023 10:39 Performed By: #### T RPHS #### [facility] [address] [place] [address] UREA NITROGEN Canceled Normal [facility] Comment on above: Order Comment: TEST BASIC METABOLIC PANEL WAS CANCELLED, 03/14/2023 10:39 Performed By: #### T RPHS #### [facility] [address] [place] [address] Clinical Event Note-Patient called backon 03-14-2023 Clinical [...] will be deferred to PCP Electronic Signatures: Ronan Delgado () (Signed 14-Mar-2023 17:39) Authored: Clinical Event Note Last Updated: 14-Mar-2023 17:39 by Ronan Delgado (DO) Normal [facility] - Chemistry and C hemistry - challengeon 03-14-2023 Anion gap [Moles/Vol] 10 mmol/L 10 - 20 [facility] Work Phone: Calcium [Mass/Vol] 9.0 mg/dL 8.6 - 10.3 [facility] Work Phone: Chloride [Moles/Vol] 101 mmol/L 98 - 107 [facility] Work Phone: CO2 [Moles/Vol] 31 mmol/L 21 - 32 [facility] Work Phone: Creatinine [Mass/Vol] 1.06 mg/dL above high threshold See Below [facility] Work Phone: Comment on above: Reference Range: 0.5 0 - 1.05 Glucose [Mass/Vol] 90 mg/dL 74 - 99 [facility] Work Phone: Potassium [Moles/Vol] 3.8 mmol/L 3.5 - 5.3 [facility] Work Phone: Sodium [Moles/Vol] 138 mmol/L 136 - 145 [facility] Work Phone: Urea nitrogen [Mass/Vol] 11 mg/dL 6 - 23 [facility] Work Phone: No Panel Informationon 03-14 65 {mL/min/1.73m2} >90 [facility] Work Phone: Comment on above: CALCULATIONS OF NURA MATED GFR ARE PERFORMED USING THE 2020 CKD-EPI STUDY REFIT EQUATION WITHOUT THE RACE VARIABLE FOR THE IDMS-TRACEABLE CREATININE METHODS.https://jasn.asnjournals.org/content/early/A SN.6963635868 CBCon 03-13-2023 Erythrocyte distribution width (RBC) [Ratio] 12.5 % Normal 11.5 - 14.5 [facility] Comment on above: Performed By: #### C BC #### [facility] [address] [place] [address] Hematocrit (Bld) [Volume fraction] 39.3 % Normal 36.0 - 46.0 [facility] Comment on above: Performed By: #### C BC #### [facility] [address] [place] [address] Hemoglobin (Bld) [Mass/Vol] 12.9 g/dL Normal 12.0 - 16.0 [facility] Comment on above: Performed By: #### C BC #### [facility] [address] [facility] [place] [place] [address] MCHC (RBC) [Mass/Vol] 32.8 g/dL Normal 32.0 - 36.0 [facility] Comment on above: Performed By: #### C BC #### [facility] [address] [place] [address] MCV (RBC) [Entitic vol] 90 fL Normal 80 - 100 [facility] Comment on above: Performed By: #### C BC #### [facility] [address] [place] [address] Platelets (Bld) [#/Vol] 304 10*3/uL Normal 150 - 450 [facility] Comment on above: Performed By: #### C BC #### [facility] [address] [facility] [place] [address] RBC 4.35 x10E12/L Normal 4.00 - 5.20 [facility] Comment on above: Performed By: #### C BC #### [facility] [address] [place] [address] WBC (Bld) [#/Vol] 7.8 10*3/uL Normal 4.4 - 11.3 [facility] Comment on above: Performed By: #### C BC #### [facility] [address] [place] [address] Daily Progress Note-Medicine on 03-13-2023 Daily Progress Note-Medicine Service: Medicine Subjective Data: DAMARI RIOS is a 47 year old Female who is Hospital Day # 6. Overnight Events: Patient had an uneventful night. Objective Data: Objective Information: T PRBPMAPSpO2 [id number]/9096% Date/Time03/13 5: 5: 5: 5: 5:20 Range(35.6C [...] hopes of discharging in a.m. 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 Provider FINAL REVIEW of Orders: Final Review: Final Review of Medication Reconciliation and Orders Completedby Physician Reviewing ProviderRonan Delgado DO at 14-Mar-2023 12:19:10 Appointments: Follow-Up [...] Incorporate rest periods with activity Electronic Signatures: Ronan Delgado (DO) (Signed 14-Mar-2023 12:19) Authored: Discharge Orders, Hospital Course (Home Care/Gold Form), Provider FINAL REVIEW of Orders, Appointments, Gold Form - Experimental Box Tester Summary Jayce Cuellar (BRYSON) (Signed 14-Mar-2023 13:23) Authored: Discharge Orders, Other Clinician Instructions Last Updated: 14-Mar-2023 13:23 by Jayce Cuellar (BRYSON) Normal [facility] - Hematology and Cell countson 03-13-2023 Erythrocyte distribution width (RBC) [Ratio] 12.5 % See Below [facility] Work Phone: Comment on above: Reference Range: 11. 5 - 14.5 Hematocrit (Bld) [Volume fraction] 39.3 % See Below [facility] Work Phone: Comment on above: Reference Range: 36. 0 - 46.0 Hemoglobin (Bld) [Mass/Vol] 12.9 g/dL See Below [facility] Work Phone: Comment on above: Reference Range: 12. 0 - 16.0 MCHC (RBC) [Mass/Vol] 32.8 g/dL See Below [facility] Work Phone: Comment on above: Reference Range: 32. 0 - 36.0 MCV (RBC) [Entitic vol] 90 fL 80 - 100 [facility] Work Phone: Platelets (Bld) [#/Vol] 304 10*3/uL 150 - 450 [facility] Work Phone: RBC (Bld) [#/Vol] 4.35 {x10E12/L} See Below [facility] Work Phone: Comment on above: Reference Range: 4.0 0 - 5.20 WBC (Bld) [#/Vol] 7.8 10*3/uL 4.4 - 11.3 [facility] Work Phone: Order Reconciliationon 03-13 Order Reconciliation Page 1 Discharge Reconciliation Document Reconciliation Type: Discharge requested on behalf of Ronan Delgado (Physician) done by Ronan Delgado DO Discharge - Partial Reconciliation: 13-Mar-2023 10:16 by: Ronan Delgado) Discharge - Reconciliation: 14-Mar-2023 11:58 by: Ronan Delgado) Discharge - Reset to Incomplete: 14-Mar-2023 17:36 by: Ronan Delgado) Discharge - Reconciliation: 14-Mar-2023 17:37 by: Ronan Delgado) Home Medications EnteredHOME MEDICATIONS AT DISCHARGE DateReconciliation [...] Discharge Discharge Diagnosis< N12 Pyelonephritis Discharge Provider, Ronan Delgado Discharge Disposition : .Home Condition at Discharge: Satisfactory Discharge Communication Instructions for Nursing Only: Remove IV prior to discharge from hospital. Do not remove any midline, if present, without an order from the provider. Discharge Instructions - PHR After your discharge from the hospital, two Summary of Care Documents will be available online in your Personal Health Record (PHR). 1.[facility] Document Architecture (C-CDA) Patient Discharge Summary This document is a summary of your hospital stay to be kept for your reference.2.C-CDA Visit Summary This document is a summary of your hospital stay to be shared with your follow-up providers (doctor, press tool maker, physical therapist, etc.). Guidelines for a Healthy Lifestyle oxyCODONE 5 mg oral capsule 1 c (more content not included)... Normal [facility] RENAL FUNCTION PANELon 03-13 Albumin [Mass/Vol] 3.4 g/dL Normal 3.4 - 5.0 [facility] Comment on above: Performed By: #### R ENAL #### [facility] [address] [place] [address] Anion gap [Moles/Vol] 10 mmol/L Normal 10 - 20 [facility] Comment on above: Performed By: #### R ENAL #### [facility] [address] [place] [address] Calcium [Mass/Vol] 8.8 mg/dL Normal 8.6 - 10.3 [facility] Comment on above: Performed By: #### R ENAL #### [facility] [address] [place] [address] Chloride [Moles/Vol] 100 mmol/L Normal 98 - 107 [facility] Comment on above: Performed By: #### R ENAL #### [facility] [address] [place] [address] Creatinine [Mass/Vol] 1.14 mg/dL High 0.50 - 1.05 [facility] Comment on above: Performed By: #### R ENAL #### [facility] [address] [place] [address] GFR/1.73 sq M.predicted among non-blacks MDRD (S/P/Bld) [Vol rate/Area] 60 mL/min/{1.73_m2} Normal >90 [facility] Comment on above: Result Comment: CALC ULATIONS OF ESTIMATED GFR ARE PERFORMED USING THE 2020 CKD-EPI STUDY REFIT EQUATION WITHOUT THE RACE VARIABLE FOR THE IDMS-TRACEABLE CREATININE METHODS. https://jasn.asnjournals.org/content//ASN.14949 34639 Performed By: #### R ENAL #### [facility] [address] [place] [address] Glucose [Mass/Vol] 110 mg/dL High 74 - 99 [facility] Comment on above: Performed By: #### R ENAL #### [facility] [address] [place] [address] HCO3 (Bld) [Moles/Vol] 32 mmol/L Normal 21 - 32 [facility] Comment on above: Performed By: #### R ENAL #### [facility] [address] [place] [address] Phosphate [Mass/Vol] 2.9 mg/dL Normal 2.5 - 4.9 [facility] Comment on above: Result Comment: The performance characteristics of phosphorus testing in heparinized plasma have been validated by the individual laboratory site where testing is performed. Testing on heparinized plasma is not approved by the FDA; however, such approval is not necessary. Performed By: #### R ENAL #### [facility] [address] [place] [address] Potassium [Moles/Vol] 3.9 mmol/L Normal 3.5 - 5.3 [facility] Comment on above: Performed By: #### R ENAL #### [facility] [address] [place] [address] Sodium [Moles/Vol] 138 mmol/L Normal 136 - 145 [facility] Comment on above: Performed By: #### R ENAL #### [facility] [address] [place] [address] Urea nitrogen [Mass/Vol] 9 mg/dL Normal 6 - 23 [facility] Comment on above: Performed By: #### R ENAL #### [facility] [address] [place] [address] Renal Function Panelon 03-13 Albumin BCP dye [Mass/Vol] 3.4 g/dL 3.4 - 5.0 [facility] Work Phone: Anion gap [Moles/Vol] 10 mmol/L 10 - 20 [facility] Work Phone: Calcium [Mass/Vol] 8.8 mg/dL 8.6 - 10.3 [facility] Work Phone: Chloride [Moles/Vol] 100 mmol/L 98 - 107 [facility] Work Phone: CO2 [Moles/Vol] 32 mmol/L 21 - 32 [facility] Work Phone: Creatinine [Mass/Vol] 1.14 mg/dL above high threshold See Below [facility] Work Phone: Comment on above: Reference Range: 0.5 0 - 1.05 Glucose [Mass/Vol] 110 mg/dL above high threshold 74 - 99 [facility] Work Phone: Phosphate [Mass/Vol] 2.9 mg/dL 2.5 - 4.9 [facility] Work Phone: Comment on above: The performance casey acteristics of phosphorus testing in heparinized plasma have been validated by the individual laboratory site where testing is performed. Testing on heparinized plasma is not approved by the FDA; however, such approval is not necessary. Potassium [Moles/Vol] 3.9 mmol/L 3.5 - 5.3 [facility] Work Phone: Sodium [Moles/Vol] 138 mmol/L 136 - 145 [facility] Work Phone: Urea nitrogen [Mass/Vol] 9 mg/dL 6 - 23 [facility] Work Phone: Renal Function Panel 60 {mL/min/1.73m2} >90 [facility] Work Phone: Comment on above: CALCULATIONS OF NURA MATED GFR ARE PERFORMED USING THE 2020 CKD-EPI STUDY REFIT EQUATION WITHOUT THE RACE VARIABLE FOR THE IDMS-TRACEABLE CREATININE METHODS.https://jasn.asnjournals.org/content/early//A SN.6093285473 CBCon 03-12-2023 Erythrocyte distribution width (RBC) [Ratio] 12.9 % Normal 11.5 - 14.5 [facility] Comment on above: Performed By: #### R ENAL #### [facility] [address] [place] [address] Hematocrit (Bld) [Volume fraction] 37.7 % Normal 36.0 - 46.0 [facility] Comment on above: Performed By: #### R ENAL #### [facility] [address] [place] [address] Hemoglobin (Bld) [Mass/Vol] 12.1 g/dL Normal 12.0 - 16.0 [facility] Comment on above: Performed By: #### R ENAL #### [facility] [address] [place] [address] MCHC (RBC) [Mass/Vol] 32.1 g/dL Normal 32.0 - 36.0 [facility] Comment on above: Performed By: #### R ENAL #### [facility] [address] [place] [address] MCV (RBC) [Entitic vol] 92 fL Normal 80 - 100 [facility] Comment on above: Performed By: #### R ENAL #### [facility] [address] [place] [address] Platelets (Bld) [#/Vol] 288 10*3/uL Normal 150 - 450 [facility] Comment on above: Performed By: #### R ENAL #### [facility] [address] [place] [address] RBC 4.09 x10E12/L Normal 4.00 - 5.20 [facility] Comment on above: Performed By: #### R ENAL #### [facility] [address] [place] [address] WBC (Bld) [#/Vol] 6.1 10*3/uL Normal 4.4 - 11.3 [facility] Comment on above: Performed By: #### R ENAL #### [facility] [address] [place] [address] Clinical Event Noteon 2022 Clinical Event Note [...] 12-Mar-2023 19:40 by Demarco Andrea (DO) Normal [facility] Clinical Event Note-CT PEon 03-12-2023 Clinical Event Note-CT PE Clinical Event: Clinical Event Note: TopicCT PE Details CT PE neg and no evidence for PE, some evidence of interstitial edema. Objective Information T PRBPMAPSpO2 [id number]/62903 % Date/Time03/11 19:319 20:159 19:319 20:15910 19:31 Range(35.9C - 36.7C ) (55 - 73 ) (18 - 18 ) (126 - 190 )/ (83 - 109 ) (92% - 97% ) Electronic Signatures: JANA ESTRADA (FU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) (Signed 11-Mar-2023 22:33) Authored: Clinical Event Note Last Updated: 11-Mar-2023 22:33 by JANA ESTRADA (FU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) Normal [facility] Daily Progress Note-Medicine on 03-12-2023 Daily Progress Note-Medicine Service: Medicine Subjective Data: DAMARI RIOS is a 47 year old Female who is Hospital Day # 5. Patient reports having shortness of breath with lying flat primarily. She admits to still having some nausea. She reports having diarrhea yesterday. Objective Data: Objective Information: T PRBPMAPSpO2 [id number]/17058 % Date/Time03/12 5: 5: 5: 5: 5:45 [...] -Monitor. Hypert (more content not included)... Normal [facility] - Hematology and Cell countson 03-12-2023 Erythrocyte distribution width (RBC) [Ratio] 12.9 % See Below [facility] Work Phone: Comment on above: Reference Range: 11. 5 - 14.5 Hematocrit (Bld) [Volume fraction] 37.7 % See Below [facility] Work Phone: Comment on above: Reference Range: 36. 0 - 46.0 Hemoglobin (Bld) [Mass/Vol] 12.1 g/dL See Below [facility] Work Phone: Comment on above: Reference Range: 12. 0 - 16.0 MCHC (RBC) [Mass/Vol] 32.1 g/dL See Below [facility] Work Phone: Comment on above: Reference Range: 32. 0 - 36.0 MCV (RBC) [Entitic vol] 92 fL 80 - 100 [facility] Work Phone: Platelets (Bld) [#/Vol] 288 10*3/uL 150 - 450 [facility] Work Phone: RBC (Bld) [#/Vol] 4.09 {x10E12/L} See Below [facility] Work Phone: Comment on above: Reference Range: 4.0 0 - 5.20 WBC (Bld) [#/Vol] 6.1 10*3/uL 4.4 - 11.3 [facility] Work Phone: MAGNESIUMon 03-12-2023 Magnesium [Mass/Vol] 1.94 mg/dL Normal 1.60 - 2.40 [facility] Comment on above: Performed By: #### M G #### [facility] [address] [place] [address] Magnesium [Mass/Vol] 1.89 mg/dL Normal 1.60 - 2.40 [facility] Comment on above: Performed By: #### R ENAL #### [facility] [address] [address] Magnesium, Serumon Magnesium [Mass/Vol] 1.94 mg/dL See Below [facility] Work Phone: Comment on above: Reference Range: 1.6 0 - 2.40 Magnesium [Mass/Vol] 1.89 mg/dL See Below [facility] Work Phone: Comment on above: Reference Range: 1.6 0 - 2.40 RENAL FUNCTION PANELon 03-12 Albumin [Mass/Vol] 3.2 g/dL Low 3.4 - 5.0 [facility] Comment on above: Performed By: #### R ENAL #### [facility] [address] [place] [address] Anion gap [Moles/Vol] 10 mmol/L Normal 10 - 20 [facility] Comment on above: Performed By: #### R ENAL #### [facility] [address] [facility] [place] [address] Calcium [Mass/Vol] 8.5 mg/dL Low 8.6 - 10.3 [facility] Comment on above: Performed By: #### R ENAL #### [facility] [address] [place] [address] Chloride [Moles/Vol] 103 mmol/L Normal 98 - 107 [facility] Comment on above: Performed By: #### R ENAL #### [facility] [address] [place] [address] Creatinine [Mass/Vol] 0.84 mg/dL Normal 0.50 - 1.05 [facility] Comment on above: Performed By: #### R ENAL #### [facility] [address] [place] [address] GFR/1.73 sq M.predicted among non-blacks MDRD (S/P/Bld) [Vol rate/Area] 87 mL/min/{1.73_m2} Normal >90 [facility] Comment on above: Result Comment: CALC ULATIONS OF ESTIMATED GFR ARE PERFORMED USING THE 2020 CKD-EPI STUDY REFIT EQUATION WITHOUT THE RACE VARIABLE FOR THE IDMS-TRACEABLE CREATININE METHODS. https://jasn.asnjournals.org/content/early//ASN.29969 48393 Performed By: #### R ENAL #### [facility] [address] [place] [address] Glucose [Mass/Vol] 83 mg/dL Normal 74 - 99 [facility] Comment on above: Performed By: #### R ENAL #### [facility] [address] [place] [address] HCO3 (Bld) [Moles/Vol] 30 mmol/L Normal 21 - 32 [facility] Comment on above: Performed By: #### R ENAL #### [facility] [address] [place] [address] Phosphate [Mass/Vol] 3.3 mg/dL Normal 2.5 - 4.9 [facility] Comment on above: Result Comment: The performance characteristics of phosphorus testing in heparinized plasma have been validated by the individual laboratory site where testing is performed. Testing on heparinized plasma is not approved by the FDA; however, such approval is not necessary. Performed By: #### R ENAL #### [facility] [address] [facility] [place] [address] Potassium [Moles/Vol] 3.9 mmol/L Normal 3.5 - 5.3 [facility] Comment on above: Performed By: #### R ENAL #### [facility] [address] [place] [address] Sodium [Moles/Vol] 139 mmol/L Normal 136 - 145 [facility] Comment on above: Performed By: #### R ENAL #### [facility] [address] [place] [address] Urea nitrogen [Mass/Vol] 5 mg/dL Low 6 - 23 [facility] Comment on above: Performed By: #### R ENAL #### [facility] [address] [place] [address] Renal Function Panelon 03-12 Albumin BCP dye [Mass/Vol] 3.2 g/dL below low threshold 3.4 - 5.0 [facility] Work Phone: Anion gap [Moles/Vol] 10 mmol/L 10 - 20 [facility] Work Phone: Calcium [Mass/Vol] 8.5 mg/dL below low threshold 8.6 - 10.3 [facility] Work Phone: Chloride [Moles/Vol] 103 mmol/L 98 - 107 [facility] Work Phone: CO2 [Moles/Vol] 30 mmol/L 21 - 32 [facility] Work Phone: Creatinine [Mass/Vol] 0.84 mg/dL See Below [facility] Work Phone: Comment on above: Reference Range: 0.5 0 - 1.05 Glucose [Mass/Vol] 83 mg/dL 74 - 99 [facility] Work Phone: Phosphate [Mass/Vol] 3.3 mg/dL 2.5 - 4.9 [facility] Work Phone: Comment on above: The performance casey acteristics of phosphorus testing in heparinized plasma have been validated by the individual laboratory site where testing is performed. Testing on heparinized plasma is not approved by the FDA; however, such approval is not necessary. Potassium [Moles/Vol] 3.9 mmol/L 3.5 - 5.3 [facility] Work Phone: Sodium [Moles/Vol] 139 mmol/L 136 - 145 [facility] Work Phone: Urea nitrogen [Mass/Vol] 5 mg/dL below low threshold 6 - 23 [facility] Work Phone: Renal Function Panel 87 {mL/min/1.73m2} >90 [facility] Work Phone: Comment on above: CALCULATIONS OF NURA MATED GFR ARE PERFORMED USING THE 2020 CKD-EPI STUDY REFIT EQUATION WITHOUT THE RACE VARIABLE FOR THE IDMS-TRACEABLE CREATININE METHODS.https://jasn.asnjournals.org/content//A SN.7491151818 BNPon 03-11-2023 Natriuretic peptide B (Bld) [Mass/Vol] 199 pg/mL High 0 - 99 [facility] Comment on above: Result Comment: . <1 00 pg/mL - Heart failure unlikely 100-299 pg/mL - Intermediate probability of acute heart . failure exacerbation. Correlate with clinical . context and patient history. >=300 pg/mL - Heart Failure likely. Correlate with clinical . context and patient history. BNP testing is performed using different testing methodology at [facility] than at other physicians & surgeons hospital. Direct result comparisons should only be made within the same method. Performed By: #### M G #### [facility] [address] [place] [address] CANCER AG 125on 03-11-2023 Cancer Ag 125 Qn 8.8 [arb'U]/mL Normal 0.0 - 30.2 [facility] Comment on above: Result Comment: CA 1 25 testing is performed by chemiluminescent immunoassay using the GutCheck. Values obtained with different analytic methods cannot [...] patient management decisions. Performed By: #### T [facility] #### [facility] [address] [place] [address] CBCon 03-11-2023 Erythrocyte distribution width (RBC) [Ratio] 13.2 % Normal 11.5 - 14.5 [facility] Comment on above: Performed By: #### [facility] #### [facility] [address] [place] [address] Hematocrit (Bld) [Volume fraction] 34.9 % Low 36.0 - 46.0 [facility] Comment on above: Performed By: #### T [facility] #### [facility] [address] [place] [address] Hemoglobin (Bld) [Mass/Vol] 11.5 g/dL Low 12.0 - 16.0 [facility] Comment on above: Performed By: #### T RP #### [facility] [address] [place] [address] MCHC (RBC) [Mass/Vol] 33.0 g/dL Normal 32.0 - 36.0 [facility] Comment on above: Performed By: #### T RP #### [facility] [address] [place] [address] MCV (RBC) [Entitic vol] 94 fL Normal 80 - 100 [facility] Comment on above: Performed By: #### T RPHS #### [facility] [address] [place] [address] Platelets (Bld) [#/Vol] 253 10*3/uL Normal 150 - 450 [facility] Comment on above: Performed By: #### T RPHS #### [facility] [address] [place] [address] RBC 3.73 x10E12/L Low 4.00 - 5.20 [facility] Comment on above: Performed By: #### T RPHS #### [facility] [address] [facility] [place] [address] WBC (Bld) [#/Vol] 6.8 10*3/uL Normal 4.4 - 11.3 [facility] Comment on above: Performed By: #### T RP #### [facility] [address] [place] [address] Erythrocyte distribution width (RBC) [Ratio] 13.0 % Normal 11.5 - 14.5 [facility] Comment on above: Performed By: #### T RPHS #### [facility] [address] [place] [address] Hematocrit (Bld) [Volume fraction] 33.7 % Low 36.0 - 46.0 [facility] Comment on above: Performed By: #### T RP #### [facility] [address] [place] [address] Hemoglobin (Bld) [Mass/Vol] 10.8 g/dL Low 12.0 - 16.0 [facility] Comment on above: Performed By: #### T RPHS #### [facility] [address] [place] [address] MCHC (RBC) [Mass/Vol] 32.0 g/dL Normal 32.0 - 36.0 [facility] Comment on above: Performed By: #### T RPHS #### [facility] [address] [place] [address] MCV (RBC) [Entitic vol] 93 fL Normal 80 - 100 [facility] Comment on above: Performed By: #### T RP #### [facility] [address] [place] [address] Platelets (Bld) [#/Vol] 220 10*3/uL Normal 150 - 450 [facility] Comment on above: Performed By: #### T RPHS #### [facility] [address] [place] [address] RBC 3.61 x10E12/L Low 4.00 - 5.20 [facility] Comment on above: Performed By: #### T RPHS #### [facility] [address] [place] [address] WBC (Bld) [#/Vol] 6.5 10*3/uL Normal 4.4 - 11.3 [facility] Comment on above: Performed By: #### T RP #### [facility] [address] [place] [address] COMPREHENSIVE PANELon 2022 Albumin [Mass/Vol] 3.0 g/dL Low 3.4 - 5.0 [facility] Comment on above: Performed By: #### R ENAL #### [facility] [address] [place] [address] ALP [Catalytic activity/Vol] 89 U/L Normal 33 - 110 [facility] Comment on above: Performed By: #### R ENAL #### [facility] [address] [place] [address] ALT [Catalytic activity/Vol] 20 U/L Normal 7 - 45 [facility] Comment on above: Result Comment: Anjelica ents treated with Sulfasalazine may generate falsely decreased results for ALT. Performed By: #### R ENAL #### [facility] [address] [place] [address] Anion gap [Moles/Vol] 10 mmol/L Normal 10 - 20 [facility] Comment on above: Performed By: #### R ENAL #### [facility] [address] [place] [address] AST [Catalytic activity/Vol] 19 U/L Normal 9 - 39 [facility] Comment on above: Performed By: #### R ENAL #### [facility] [address] [place] [address] Bilirubin [Mass/Vol] 0.3 mg/dL Normal 0.0 - 1.2 [facility] Comment on above: Performed By: #### R ENAL #### [facility] [address] [place] [address] Calcium [Mass/Vol] 8.1 mg/dL Low 8.6 - 10.3 [facility] Comment on above: Performed By: #### R ENAL #### [facility] [address] [facility] [place] [address] Chloride [Moles/Vol] 104 mmol/L Normal 98 - 107 [facility] Comment on above: Performed By: #### R ENAL #### [facility] [address] [place] [address] Creatinine [Mass/Vol] 0.85 mg/dL Normal 0.50 - 1.05 [facility] Comment on above: Performed By: #### R ENAL #### [facility] [address] [address] GFR/1.73 sq M.predicted among non-blacks MDRD (S/P/Bld) [Vol rate/Area] 85 mL/min/{1.73_m2} Normal >90 [facility] Comment on above: Result Comment: CALC ULATIONS OF ESTIMATED GFR ARE PERFORMED USING THE 2020 CKD-EPI STUDY REFIT EQUATION WITHOUT THE RACE VARIABLE FOR THE IDMS-TRACEABLE CREATININE METHODS. https://jasn.asnjournals.org/content/early//ASN.36106 22580 Performed By: #### R ENAL #### [facility] [address] [place] [address] Glucose [Mass/Vol] 92 mg/dL Normal 74 - 99 [facility] Comment on above: Performed By: #### R ENAL #### [facility] [address] [place] [address] HCO3 (Bld) [Moles/Vol] 27 mmol/L Normal 21 - 32 [facility] Comment on above: Performed By: #### R ENAL #### [facility] [address] [place] [address] Potassium [Moles/Vol] 4.0 mmol/L Normal 3.5 - 5.3 [facility] Comment on above: Performed By: #### R ENAL #### [facility] [address] [place] [address] Protein [Mass/Vol] 5.7 g/dL Low 6.4 - 8.2 [facility] Comment on above: Performed By: #### R ENAL #### [facility] [address] [place] [address] Sodium [Moles/Vol] 137 mmol/L Normal 136 - 145 [facility] Comment on above: Performed By: #### R ENAL #### [facility] [address] [place] [address] Urea nitrogen [Mass/Vol] 8 mg/dL Normal 6 - 23 [facility] Comment on above: Performed By: #### R ENAL #### [facility] [address] [place] [address] CT ANGIO CHEST FOR PEon 09-1 CT ANGIO CHEST FOR PE STUDY: CT Angiogram of the Chest; 03/11/2023 at 8:39 PM INDICATION: Dyspnea with elevated D-dimer, chest pressure and non-productive cough for a couple of days, getting worse. No surgeries to chest. COMPARISON: XR chest 03/08/2023, XR chest 02/28/2022 (images only; no report). ACCESSION NUMBER(S): [id number] ORDERING CLINICIAN: DEMARCO ANDREA DO TECHNIQUE: CTA [...] Electronically signed by: ARISTEO MUÑOZ MD Normal [facility] Clinical Event Note-ED Post Discharge Result Follow [...] emergency room. The patient was admitted to [facility]). The Culture Callback Team will turn over [...] Post-Discharge Culture Follow Up Team, please contact [phone]. . Adriana Thrasher, PharmEver, [facility] PGY1 [employer] Electronic Signatures: Dora Singh ([facility]) (Signed 12-Mar-2023 14:59) Co-Signer: Clinical Event Note Adriana ThrasherAB[facility]) (Signed 11-Mar-2023 11:20) Authored: Clinical Event Note Last Updated: 12-Mar-2023 14:59 by Dora Singh ([facility]) Normal [facility] D-DIMER, NON VTEon 3 D-DIMER, NON VTE 1589 ng/mL FEU Abnormal = 500 [facility] Comment on above: Result Comment: THE D-DIMER ASSAY IS REPORTED IN NG/ML FIBRINOGEN EQUIVALENT UNITS (FEU). THE RESULTS OF THIS ASSAY SHOULD NOT BE USED FOR THE EXCLUSION OF DEEP VEIN THROMBOSIS AND/OR PULMONARY EMBOLISM. Performed By: #### M G #### [facility] [address] [place] [address] Daily Progress Note-Medicine on 03-11-2023 Daily Progress Note-Medicine Service: Medicine Subjective Data: DAMARI RIOS is a 47 year old Female who is Hospital Day # 4. Patient reports still having nausea and did have some diarrhea overnight. She denies chest pain, shortness of breath. Objective Data: Objective Information: T PRBPMAPSpO2 [id number]/9894% Date/Time03/11 9: 9: 9: 9: 9:30 Range(35.9C [...] subcu. Electronic Signatures: Demarco Andrea () (Signed 11-Mar-2023 12:04) Authored: Service, Subjective Data, Objective Data, Assessment and Plan, Note Completion Last Updated: 11-Mar-2023 12:04 by Demarco Andrea (DO) Normal [facility] EMR ADDONon 03-11-2023 ADDON CONFIRMATION REQUEST REC'D Normal [facility] Comment on above: Performed By: #### R ENAL #### [facility] [address] [place] [address] Performed By: #### M G #### [facility] [address] [place] [address] Electrocardiogram 12 Leadon 03-11-2023 Electrocardiogram 12 Lead Ventricular Rate 67 Atrial Rate 67 P-R Interval 148 QRS Duration 76 Q-T Interval 390 QTC Calculation(Bazett) 412 P Cordova 38 R Cordova 5 T Cordova 89 QRS Count 11 Q Onset 220 P Onset 146 P Offset 191 T Offset 415 QTC Fredericia 404 Diagnosis Class Abnormal Diagnosis Normal sinus rhythm Nonspecific ST and T wave abnormality Abnormal ECG Confirmed by Sina Medina ([id number]) on 03/17/2023 11:44:43 AM Normal [facility] Laboratory - Chemistry and C hemistry - challengeon 03-11-2023 Albumin BCP dye [Mass/Vol] 3.0 g/dL below low threshold 3.4 - 5.0 [facility] Work Phone: ALP [Catalytic activity/Vol] 89 U/L 33 - 110 [facility] Work Phone: ALT With P-5'-P [Catalytic activity/Vol] 20 U/L 7 - 45 [facility] Work Phone: Comment on above: Patients treated wit h Sulfasalazine may generate falsely decreased results for ALT. Anion gap [Moles/Vol] 10 mmol/L 10 - 20 [facility] Work Phone: AST With P-5'-P [Catalytic activity/Vol] 19 U/L 9 - 39 [facility] Work Phone: Bilirubin [Mass/Vol] 0.3 mg/dL 0.0 - 1.2 [facility] Work Phone: Calcium [Mass/Vol] 8.1 mg/dL below low threshold 8.6 - 10.3 [facility] Work Phone: Chloride [Moles/Vol] 104 mmol/L 98 - 107 [facility] Work Phone: CO2 [Moles/Vol] 27 mmol/L 21 - 32 [facility] Work Phone: Creatinine [Mass/Vol] 0.85 mg/dL See Below [facility] Work Phone: Comment on above: Reference Range: 0.5 0 - 1.05 Glucose [Mass/Vol] 92 mg/dL 74 - 99 [facility] Work Phone: Natriuretic peptide B (Bld) [Mass/Vol] 199 pg/mL above high threshold 0 - 99 [facility] Work Phone: Comment on above: . <100 pg/mL - Heart failure -831 pg/mL - Intermediate probability of acute heart. failure exacerbation. Correlate with clinical. context and patient history. >=300 pg/mL - Heart Failure likely. Correlate with clinical. context and patient history.BNP testing is performed using different testing methodology at [facility] than at other physicians & surgeons hospital. Direct result comparisons should only be made within the same method. Potassium [Moles/Vol] 4.0 mmol/L 3.5 - 5.3 [facility] Work Phone: Protein [Mass/Vol] 5.7 g/dL below low threshold 6.4 - 8.2 [facility] Work Phone: Sodium [Moles/Vol] 137 mmol/L 136 - 145 [facility] Work Phone: Urea nitrogen [Mass/Vol] 8 mg/dL 6 - 23 [facility] Work Phone: Laboratory - Coagulationon 0 03-11-2023 Fibrin D-dimer DDU (PPP) [Mass/Vol] 1589 {ng/mL_FEU} Abnormal = 500 [facility] Work Phone: Comment on above: THE D-DIMER ASSAY IS REPORTED IN NG/ML FIBRINOGEN EQUIVALENT UNITS (FEU). THE RESULTS OF THIS ASSAY SHOULD NOT BE USED FOR THE EXCLUSION OF DEEP VEIN THROMBOSIS AND/OR PULMONARY EMBOLISM. Laboratory - Hematology and Cell countson 03-11-2023 Erythrocyte distribution width (RBC) [Ratio] 13.2 % See Below [facility] Work Phone: Comment on above: Reference Range: 11. 5 - 14.5 Hematocrit (Bld) [Volume fraction] 34.9 % below low threshold See Below [facility] Work Phone: Comment on above: Reference Range: 36. 0 - 46.0 Hemoglobin (Bld) [Mass/Vol] 11.5 g/dL below low threshold See Below [facility] Work Phone: Comment on above: Reference Range: 12. 0 - 16.0 MCHC (RBC) [Mass/Vol] 33.0 g/dL See Below [facility] Work Phone: Comment on above: Reference Range: 32. 0 - 36.0 MCV (RBC) [Entitic vol] 94 fL 80 - 100 [facility] Work Phone: Platelets (Bld) [#/Vol] 253 10*3/uL 150 - 450 [facility] Work Phone: RBC (Bld) [#/Vol] 3.73 {x10E12/L} below low threshold See Below [facility] Work Phone: Comment on above: Reference Range: 4.0 0 - 5.20 WBC (Bld) [#/Vol] 6.8 10*3/uL 4.4 - 11.3 [facility] Work Phone: Erythrocyte distribution width (RBC) [Ratio] 13.0 % See Below [facility] Work Phone: Comment on above: Reference Range: 11. 5 - 14.5 Hematocrit (Bld) [Volume fraction] 33.7 % below low threshold See Below [facility] Work Phone: Comment on above: Reference Range: 36. 0 - 46.0 Hemoglobin (Bld) [Mass/Vol] 10.8 g/dL below low threshold See Below [facility] Work Phone: Comment on above: Reference Range: 12. 0 - 16.0 MCHC (RBC) [Mass/Vol] 32.0 g/dL See Below [facility] Work Phone: Comment on above: Reference Range: 32. 0 - 36.0 MCV (RBC) [Entitic vol] 93 fL 80 - 100 [facility] Work Phone: Platelets (Bld) [#/Vol] 220 10*3/uL 150 - 450 [facility] Work Phone: RBC (Bld) [#/Vol] 3.61 {x10E12/L} below low threshold See Below [facility] Work Phone: Comment on above: Reference Range: 4.0 0 - 5.20 WBC (Bld) [#/Vol] 6.5 10*3/uL 4.4 - 11.3 [facility] Work Phone: MAGNESIUMon 03-11-2023 Magnesium [Mass/Vol] 1.80 mg/dL Normal 1.60 - 2.40 [facility] Comment on above: Performed By: #### M G #### [facility] [address] [place] [address] Magnesium [Mass/Vol] 1.91 mg/dL Normal 1.60 - 2.40 [facility] Comment on above: Performed By: #### M G #### [facility] [address] [place] [address] Magnesium, Serumon 3 Magnesium [Mass/Vol] 1.80 mg/dL See Below [facility] Work Phone: Comment on above: Reference Range: 1.6 0 - 2.40 Magnesium [Mass/Vol] 1.91 mg/dL See Below [facility] Work Phone: Comment on above: Reference Range: 1.6 0 - 2.40 No Panel Informationon 03-11 85 {mL/min/1.73m2} >90 [facility] Work Phone: Comment on above: CALCULATIONS OF NURA MATED GFR ARE PERFORMED USING THE 2020 CKD-EPI STUDY REFIT EQUATION WITHOUT THE RACE VARIABLE FOR THE IDMS-TRACEABLE CREATININE METHODS.https://jasn.asnjournals.org/content/early/A SN.9249551028 https://MUSEXPRDWE B0 1:8080/musescripts/mus eweb.dll?RetrieveTestB yDateTime?PatientID=[id number]&Date= 3&Time=16%3a16%3a38%3a 00&TestType=ECG&Site=1 &OutputType=PDF&Ext=PD F [facility] Work Phone: Normal sinus rhythm [facility] Work Phone: Abnormal [facility] Work Phone: [phone] [facility] Work Phone: [phone] [facility] Work Phone: [phone] [facility] Work Phone: [phone] [facility] Work Phone: [phone] [facility] Work Phone: [phone] [facility] [facility] Work Phone: [phone] [facility] Work Phone: 5 1 [facility] Work Phone: 38 1 [facility] Work Phone: [phone] [facility] Work Phone: [phone] [facility] Work Phone: 76 1 [facility] Work Phone: [phone] [facility] Work Phone: [phone] [facility] Work Phone: PHOSPHORUSon 03-11-2023 Phosphate [Mass/Vol] 2.7 mg/dL Normal 2.5 - 4.9 [facility] Comment on above: Result Comment: The performance characteristics of phosphorus testing in heparinized plasma have been validated by the individual laboratory site where testing is performed. Testing on heparinized plasma is not approved by the FDA; however, such approval is not necessary. Performed By: #### R ENAL #### [facility] [address] [place] [address] Phosphorus, Serumon 03-11-20 23 Phosphate [Mass/Vol] 2.7 mg/dL 2.5 - 4.9 [facility] Work Phone: Comment on above: The performance casey acteristics of phosphorus testing in heparinized plasma have been validated by the individual laboratory site where testing is performed. Testing on heparinized plasma is not approved by the FDA; however, such approval is not necessary. RENAL FUNCTION PANELon 03-11 Albumin [Mass/Vol] 2.8 g/dL Low 3.4 - 5.0 [facility] Comment on above: Performed By: #### R ENAL #### [facility] [address] [place] [address] Anion gap [Moles/Vol] 11 mmol/L Normal 10 - 20 [facility] Comment on above: Performed By: #### R ENAL #### [facility] [address] [place] [address] Calcium [Mass/Vol] 8.1 mg/dL Low 8.6 - 10.3 [facility] Comment on above: Performed By: #### R ENAL #### [facility] [address] [place] [address] Chloride [Moles/Vol] 105 mmol/L Normal 98 - 107 [facility] Comment on above: Performed By: #### R ENAL #### [facility] [address] [place] [address] Creatinine [Mass/Vol] 0.85 mg/dL Normal 0.50 - 1.05 [facility] Comment on above: Performed By: #### R ENAL #### [facility] [address] [place] [address] GFR/1.73 sq M.predicted among non-blacks MDRD (S/P/Bld) [Vol rate/Area] 85 mL/min/{1.73_m2} Normal >90 [facility] Comment on above: Result Comment: CALC ULATIONS OF ESTIMATED GFR ARE PERFORMED USING THE 2020 CKD-EPI STUDY REFIT EQUATION WITHOUT THE RACE VARIABLE FOR THE IDMS-TRACEABLE CREATININE METHODS. https://jasn.asnjournals.org/content//ASN.11630 46441 Performed By: #### R ENAL #### [facility] [address] [place] [address] Glucose [Mass/Vol] 80 mg/dL Normal 74 - 99 [facility] Comment on above: Performed By: #### R ENAL #### [facility] [address] [place] [address] HCO3 (Bld) [Moles/Vol] 24 mmol/L Normal 21 - 32 [facility] Comment on above: Performed By: #### R ENAL #### [facility] [address] [place] [address] Phosphate [Mass/Vol] 3.0 mg/dL Normal 2.5 - 4.9 [facility] Comment on above: Result Comment: The performance characteristics of phosphorus testing in heparinized plasma have been validated by the individual laboratory site where testing is performed. Testing on heparinized plasma is not approved by the FDA; however, such approval is not necessary. Performed By: #### R ENAL #### [facility] [address] [place] [address] Potassium [Moles/Vol] 3.4 mmol/L Low 3.5 - 5.3 [facility] Comment on above: Performed By: #### R ENAL #### [facility] [address] [place] [address] Sodium [Moles/Vol] 137 mmol/L Normal 136 - 145 [facility] Comment on above: Performed By: #### R ENAL #### [facility] [address] [place] [address] Urea nitrogen [Mass/Vol] 9 mg/dL Normal 6 - 23 [facility] Comment on above: Performed By: #### R ENAL #### [facility] [address] [place] [address] Radiologyon 03-11-2023 XR Chest Single view Normal [facility] Work Phone: Renal Function Panelon 03-11 Albumin BCP dye [Mass/Vol] 2.8 g/dL below low threshold 3.4 - 5.0 [facility] Work Phone: Anion gap [Moles/Vol] 11 mmol/L 10 - 20 [facility] Work Phone: Calcium [Mass/Vol] 8.1 mg/dL below low threshold 8.6 - 10.3 [facility] Work Phone: Chloride [Moles/Vol] 105 mmol/L 98 - 107 [facility] Work Phone: CO2 [Moles/Vol] 24 mmol/L 21 - 32 [facility] Work Phone: Creatinine [Mass/Vol] 0.85 mg/dL See Below [facility] Work Phone: Comment on above: Reference Range: 0.5 0 - 1.05 Glucose [Mass/Vol] 80 mg/dL 74 - 99 [facility] Work Phone: Phosphate [Mass/Vol] 3.0 mg/dL 2.5 - 4.9 [facility] Work Phone: Comment on above: The performance casey acteristics of phosphorus testing in heparinized plasma have been validated by the individual laboratory site where testing is performed. Testing on heparinized plasma is not approved by the FDA; however, such approval is not necessary. Potassium [Moles/Vol] 3.4 mmol/L below low threshold 3.5 - 5.3 [facility] Work Phone: Sodium [Moles/Vol] 137 mmol/L 136 - 145 [facility] Work Phone: Urea nitrogen [Mass/Vol] 9 mg/dL 6 - 23 [facility] Work Phone: Renal Function Panel 85 {mL/min/1.73m2} >90 [facility] Work Phone: Comment on above: CALCULATIONS OF NURA MATED GFR ARE PERFORMED USING THE 2020 CKD-EPI STUDY REFIT EQUATION WITHOUT THE RACE VARIABLE FOR THE IDMS-TRACEABLE CREATININE METHODS.https://jasn.asnjournals.org/content//A SN.3963201800 CT Angio Chest For PEon 0 03-11-2023 CT Angio Chest For PE Normal [facility] Work Phone: TROPONIN I, HIGH SENSITIVITY on 03-11-2023 TROPONIN I, HIGH SENSITIVITY 8 ng/L Normal 0 - 13 [facility] Comment on above: Result Comment: . Less [...] performed using a different testing methodology at [facility] than at other [facility]. Direct result comparisons should only be made within the same method. Performed By: #### [facility] #### [facility] [address] [place] [address] TROPONIN I, HIGH SENSITIVITY 8 ng/L Normal 0 - 13 [facility] Comment on above: Result Comment: . Less [...] performed using a different testing methodology at [facility] than at other [facility]. Direct result comparisons should only be made within the same method. Performed By: #### [facility] #### [facility] [address] [place] [address] Tropinin I.cardiac panel High sensitivity method 8 ng/L 0 - 13 [facility] Work Phone: Comment on above: .Less [...] performed using a different testing methodology at [facility] than at [facility]. Direct result comparisons should only be made within the same method. Tropinin I.cardiac panel High sensitivity method 8 ng/L 0 - 13 [facility] Work Phone: Comment on above: .Less [...] performed using a different testing methodology at [facility] than at [facility]. Direct result comparisons should only be made within the same method. BASIC METABOLIC PANELon - Anion gap [Moles/Vol] 10 mmol/L Normal 10 - 20 [facility] Comment on above: Performed By: #### M G #### [facility] [address] [place] [address] Calcium [Mass/Vol] 8.0 mg/dL Low 8.6 - 10.3 [facility] Comment on above: Performed By: #### M G #### [facility] [address] [place] [address] Chloride [Moles/Vol] 102 mmol/L Normal 98 - 107 [facility] Comment on above: Performed By: #### M G #### [facility] [address] [place] [address] Creatinine [Mass/Vol] 0.91 mg/dL Normal 0.50 - 1.05 [facility] Comment on above: Performed By: #### M G #### [facility] [address] [facility] [address] GFR/1.73 sq M.predicted among non-blacks MDRD (S/P/Bld) [Vol rate/Area] 79 mL/min/{1.73_m2} Normal >90 [facility] Comment on above: Result Comment: CALC ULATIONS OF ESTIMATED GFR ARE PERFORMED USING THE 2020 CKD-EPI STUDY REFIT EQUATION WITHOUT THE RACE VARIABLE FOR THE IDMS-TRACEABLE CREATININE METHODS. https://jasn.asnjournals.org/content/early//ASN.46246 73032 Performed By: #### M G #### [facility] [address] [place] [address] Glucose [Mass/Vol] 89 mg/dL Normal 74 - 99 [facility] Comment on above: Performed By: #### M G #### [facility] [address] [facility] [address] HCO3 (Bld) [Moles/Vol] 28 mmol/L Normal 21 - 32 [facility] Comment on above: Performed By: #### M G #### [facility] [address] [facility] [place] [address] Potassium [Moles/Vol] 3.7 mmol/L Normal 3.5 - 5.3 [facility] Comment on above: Performed By: #### M G #### [facility] [address] [facility] [address] Sodium [Moles/Vol] 136 mmol/L Normal 136 - 145 [facility] Comment on above: Performed By: #### M G #### [facility] [address] [facility] [address] Urea nitrogen [Mass/Vol] 10 mg/dL Normal 6 - 23 [facility] Comment on above: Performed By: #### M G #### [facility] [address] [place] [address] CBCon 03-10-2023 Erythrocyte distribution width (RBC) [Ratio] 12.8 % Normal 11.5 - 14.5 [facility] Comment on above: Performed By: #### T RP #### [facility] [address] [place] [place] [address] Hematocrit (Bld) [Volume fraction] 33.8 % Low 36.0 - 46.0 [facility] Comment on above: Performed By: #### T RP #### [facility] [address] [facility] [place] [place] [address] Hemoglobin (Bld) [Mass/Vol] 11.0 g/dL Low 12.0 - 16.0 [facility] Comment on above: Performed By: #### T RP #### [facility] [address] [place] [address] MCHC (RBC) [Mass/Vol] 32.5 g/dL Normal 32.0 - 36.0 [facility] Comment on above: Performed By: #### T RP #### [facility] [id number] [place] [address] MCV (RBC) [Entitic vol] 93 fL Normal 80 - 100 [facility] Comment on above: Performed By: #### T RP #### [facility] [address] [place] [address] Platelets (Bld) [#/Vol] 222 10*3/uL Normal 150 - 450 [facility] Comment on above: Performed By: #### T RP #### [facility] [address] [place] [address] RBC 3.63 x10E12/L Low 4.00 - 5.20 [facility] Comment on above: Performed By: #### T RPHS #### [facility] [address] [place] [address] WBC (Bld) [#/Vol] 8.0 10*3/uL Normal 4.4 - 11.3 [facility] Comment on above: Performed By: #### T RPHS #### [facility] [address] [place] [address] Cancer Antigen, 125on 2022 Cancer Ag 125 Qn 8.8 [arb'U]/mL 0.0 - 30.2 [facility] Work Phone: Comment on above: CA 125 testing is pe rformed by chemiluminescent immunoassay using the [employer]. Values obtained with different analytic methods cannot [...] she reports this was done vaginally at [facility]. 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 No murmur, rub or gallop. [place] beat not displaced. Gastrointestinal: Soft, tender in [...] ALB 3. (more content not included)... Normal [facility] Daily Progress Note-Medicine on 03-10-2023 Daily Progress Note-Medicine Service: Medicine Subjective Data: DAMARI RIOS is a 47 year old Female who is Hospital Day # 3. Patient reports still having some nausea and some diffuse abdominal pain. She denies chest pain or shortness of breath. Objective Data: Objective Information: T PRBPMAPSpO2 [id number]% Date/Time03/10 14: 14: 14: 14: 14:31 Range(36C [...] subcu. Electronic Signatures: Demarco Andrea () (Signed 10-Mar-2023 18:05) Authored: Service, Subjective Data, Objective Data, Assessment and Plan, Note Completion Last Updated: 10-Mar-2023 18:05 by Demarco Andrea (DO) Normal [facility] Laboratory - Chemistry and C hemistry - challengeon 03-10-2023 Anion gap [Moles/Vol] 10 mmol/L 10 - 20 [facility] Work Phone: Calcium [Mass/Vol] 8.0 mg/dL below low threshold 8.6 - 10.3 [facility] Work Phone: Chloride [Moles/Vol] 102 mmol/L 98 - 107 [facility] Work Phone: CO2 [Moles/Vol] 28 mmol/L 21 - 32 [facility] Work Phone: Creatinine [Mass/Vol] 0.91 mg/dL See Below [facility] Work Phone: Comment on above: Reference Range: 0.5 0 - 1.05 Glucose [Mass/Vol] 89 mg/dL 74 - 99 [facility] Work Phone: Potassium [Moles/Vol] 3.7 mmol/L 3.5 - 5.3 [facility] Work Phone: Sodium [Moles/Vol] 136 mmol/L 136 - 145 [facility] Work Phone: Urea nitrogen [Mass/Vol] 10 mg/dL 6 - 23 [facility] Work Phone: Laboratory - Hematology and Cell countson 03-10-2023 Erythrocyte distribution width (RBC) [Ratio] 12.8 % See Below [facility] Work Phone: Comment on above: Reference Range: 11. 5 - 14.5 Hematocrit (Bld) [Volume fraction] 33.8 % below low threshold See Below [facility] Work Phone: Comment on above: Reference Range: 36. 0 - 46.0 Hemoglobin (Bld) [Mass/Vol] 11.0 g/dL below low threshold See Below [facility] Work Phone: Comment on above: Reference Range: 12. 0 - 16.0 MCHC (RBC) [Mass/Vol] 32.5 g/dL See Below [facility] Work Phone: Comment on above: Reference Range: 32. 0 - 36.0 MCV (RBC) [Entitic vol] 93 fL 80 - 100 [facility] Work Phone: Platelets (Bld) [#/Vol] 222 10*3/uL 150 - 450 [facility] Work Phone: RBC (Bld) [#/Vol] 3.63 {x10E12/L} below low threshold See Below [facility] Work Phone: Comment on above: Reference Range: 4.0 0 - 5.20 WBC (Bld) [#/Vol] 8.0 10*3/uL 4.4 - 11.3 [facility] Work Phone: No Panel Informationon 03-10 79 {mL/min/1.73m2} >90 [facility] Work Phone: Comment on above: CALCULATIONS OF NURA MATED GFR ARE PERFORMED USING THE 2020 CKD-EPI STUDY REFIT EQUATION WITHOUT THE RACE VARIABLE FOR THE IDMS-TRACEABLE CREATININE METHODS.https://jasn.asnjournals.org/content/early//A SN.8786300508 BASIC METABOLIC PANELon Calcium [Mass/Vol] 8.5 mg/dL Low 8.6 - 10.3 [facility] Comment on above: Performed By: #### [facility] #### [facility] [address] [place] [address] Anion gap [Moles/Vol] 10 mmol/L Normal 10 - 20 [facility] Comment on above: Performed By: #### T RP #### [facility] [address] [address] Chloride [Moles/Vol] 103 mmol/L Normal 98 - 107 [facility] Comment on above: Performed By: #### T RP #### [facility] [address] [place] [address] Creatinine [Mass/Vol] 0.96 mg/dL Normal 0.50 - 1.05 [facility] Comment on above: Performed By: #### T RPHS #### [facility] [address] [facility] [place] [address] GFR/1.73 sq M.predicted among non-blacks MDRD (S/P/Bld) [Vol rate/Area] 74 mL/min/{1.73_m2} Normal >90 [facility] Comment on above: Result Comment: CALC ULATIONS OF ESTIMATED GFR ARE PERFORMED USING THE 2020 CKD-EPI STUDY REFIT EQUATION WITHOUT THE RACE VARIABLE FOR THE IDMS-TRACEABLE CREATININE METHODS. https://jasn.asnjournals.org/content/early/ASN.86050 43960 Performed By: #### T RPHS #### [facility] [address] [facility] [place] [address] Glucose [Mass/Vol] 96 mg/dL Normal 74 - 99 [facility] Comment on above: Performed By: #### T RPHS #### [facility] [address] [place] [address] HCO3 (Bld) [Moles/Vol] 27 mmol/L Normal 21 - 32 [facility] Comment on above: Performed By: #### T RPHS #### [facility] [address] [place] [address] Potassium [Moles/Vol] 3.7 mmol/L Normal 3.5 - 5.3 [facility] Comment on above: Performed By: #### T RPHS #### [facility] [address] [facility] [place] [address] Sodium [Moles/Vol] 136 mmol/L Normal 136 - 145 [facility] Comment on above: Performed By: #### T RPHS #### [facility] [address] [place] [address] Urea nitrogen [Mass/Vol] 14 mg/dL Normal 6 - 23 [facility] Comment on above: Performed By: #### T RPHS #### [facility] [address] [place] [address] CBCon 03-09-2023 Erythrocyte distribution width (RBC) [Ratio] 12.9 % Normal 11.5 - 14.5 [facility] Comment on above: Performed By: #### T RP #### [facility] [address] [facility] [address] Hematocrit (Bld) [Volume fraction] 37.0 % Normal 36.0 - 46.0 [facility] Comment on above: Performed By: #### T RP #### [facility] [address] [address] Hemoglobin (Bld) [Mass/Vol] 11.9 g/dL Low 12.0 - 16.0 [facility] Comment on above: Performed By: #### T RP #### [facility] [id number] [place] [address] [place] [address] MCHC (RBC) [Mass/Vol] 32.2 g/dL Normal 32.0 - 36.0 [facility] Comment on above: Performed By: #### T RP #### [facility] [id number] [place] [address] [place] [address] MCV (RBC) [Entitic vol] 93 fL Normal 80 - 100 [facility] Comment on above: Performed By: #### T RP #### [facility] [id number] [place] [address] [place] [address] Platelets (Bld) [#/Vol] 203 10*3/uL Normal 150 - 450 [facility] Comment on above: Performed By: #### T RP #### [facility] [id number] [place] [address] [place] [address] RBC 3.97 x10E12/L Low 4.00 - 5.20 [facility] Comment on above: Performed By: #### T RP #### [facility] [address] [place] [address] WBC (Bld) [#/Vol] 8.1 10*3/uL Normal 4.4 - 11.3 [facility] Comment on above: Performed By: #### T RP #### [facility] [address] [facility] [place] [address] Daily Progress Note-Medicine on 03-09-2023 Daily Progress Note-Medicine Service: Medicine Subjective Data: DAMARI RIOS is a 47 year old Female who is Hospital Day # 2. Patient reports having nausea, vomiting, abdominal pain, right flank pain. She denies shortness of breath or diarrhea. Objective Data: Objective Information: T PRBPMAPSpO2 [id number]% Date/Time03/09 13: 13: 13: 13: 13:44 Range(36.2C [...] subcu. Electronic Signatures: Demarco Andrea (DO) (Signed 09-Mar-2023 17:30) Authored: Service, Subjective Data, Objective Data, Assessment and Plan, Note Completion Last Updated: 09-Mar-2023 17:30 by Demarco Andrea (DO) [facility] Discharge Planning Qtum9ly 0 03-09-2023 Discharge Planning Note2 Discharge Planning: Planned Dispositionhome Discharge DestinationHome with roommate AMPAC < 20no [place] Explainedyes Anticipated Discharge [id number] Discharge Planning 03/09/23: 13:33 Transitional Cane Weigher Note: Discussed with interdisciplinary team. Met with [...] time. Will continue to follow. Nataly Saenz RNccna Coordinator 03/13/23: 14:03 Transitional Cane Weigher Note: Discussed with interdisciplinary team. Met with the patient at the bedside to touch base regarding discharge plan. The patient continues to feel poorly. The patient continues to deny any discharge needs at this time. Will continue to follow. Nataly Saenz RNccna Coordinator 03/14/23 athletic trainer dc pt to home. RN removed 1 IV intact. RN provided dc instructions, educational material and teaching. Pt stated they understood teaching. Pt is being transported to ride by wheelchair. Jayce Cuellar RN Assessment: Discharge Planning Assessment [id number] Discharge Planning Assessment Completed byNataly Saenz RNccna Coordinator Primary Contact Name and NumberStacy Rory (Friend) [phone] Prior Level of FunctioningIndependent Lives Withalone(1) Living Arrangementshouse(1) Stated Reason for AdmissionDamien chauhan(1) [facility] PCPDrMike Cason MD [facility] [place] Resource/Environmental Concernsnone(1) [facility] Services Anticipated at Transitionnone(1) Readmission Within the [...] (diet, activity, pt instructions)yes Discharge Documentation: Discharge/Transfer Date/[id number] 13:53 Transportation Methodprivate car Discharge Modewheelchair Code [...] Profile - Adult v2 09-Mar-2023 13:00 Normal [facility] Laboratory - Chemistry and C hemistry - challengeon 03-09-2023 Anion gap [Moles/Vol] 10 mmol/L 10 - 20 [facility] Work Phone: Calcium [Mass/Vol] 8.5 mg/dL below low threshold 8.6 - 10.3 [facility] Work Phone: Chloride [Moles/Vol] 103 mmol/L 98 - 107 [facility] Work Phone: CO2 [Moles/Vol] 27 mmol/L 21 - 32 [facility] Work Phone: Creatinine [Mass/Vol] 0.96 mg/dL See Below [facility] Work Phone: Comment on above: Reference Range: 0.5 0 - 1.05 Glucose [Mass/Vol] 96 mg/dL 74 - 99 [facility] Work Phone: Potassium [Moles/Vol] 3.7 mmol/L 3.5 - 5.3 [facility] Work Phone: Sodium [Moles/Vol] 136 mmol/L 136 - 145 [facility] Work Phone: Urea nitrogen [Mass/Vol] 14 mg/dL 6 - 23 [facility] Work Phone: Laboratory - Hematology and Cell countson 03-09-2023 Erythrocyte distribution width (RBC) [Ratio] 12.9 % See Below [facility] Work Phone: Comment on above: Reference Range: 11. 5 - 14.5 Hematocrit (Bld) [Volume fraction] 37.0 % See Below [facility] Work Phone: Comment on above: Reference Range: 36. 0 - 46.0 Hemoglobin (Bld) [Mass/Vol] 11.9 g/dL below low threshold See Below [facility] Work Phone: Comment on above: Reference Range: 12. 0 - 16.0 MCHC (RBC) [Mass/Vol] 32.2 g/dL See Below [facility] Work Phone: Comment on above: Reference Range: 32. 0 - 36.0 MCV (RBC) [Entitic vol] 93 fL 80 - 100 [facility] Work Phone: Platelets (Bld) [#/Vol] 203 10*3/uL 150 - 450 [facility] Work Phone: RBC (Bld) [#/Vol] 3.97 {x10E12/L} below low threshold See Below [facility] Work Phone: Comment on above: Reference Range: 4.0 0 - 5.20 WBC (Bld) [#/Vol] 8.1 10*3/uL 4.4 - 11.3 [facility] Work Phone: No Panel Informationon 03-09 Normal [facility] Work Phone: 74 {mL/min/1.73m2} >90 [facility] Work Phone: Comment on above: CALCULATIONS OF NURA MATED GFR ARE PERFORMED USING THE 2020 CKD-EPI STUDY REFIT EQUATION WITHOUT THE RACE VARIABLE FOR THE IDMS-TRACEABLE CREATININE METHODS.https://jasn.asnjournals.org/content//A SN.1539162748 Order Reconciliationon 03-09 Order Reconciliation Page 1 [...] 2 puff(s) inhaled every 6 hours, As [id number] AM Reviewed and Held furosemide 20 mg oral tablet 1 tab(s) orally 4 times a [id number] Reviewed and Held ibuprofen 800 mg oral [...] Every 8 Hours and as Needed Normal [facility] Patient Profile - Adult v2on 03-09-2023 Patient Profile - Adult v2 Profile: Initial Info: How to be AddressedMelanie Spoken Language PreferredEnglish Stated Reason for AdmissionDamien chauhan Wants Family/Rep Notified of Admissionaware Notify PCPdo not notify PCP Informed of Patient Visiting Rightsyes Arrived Fromemergency department Patient Belongingsremains with patient Patient Belongings Remaining with Patientclothing; cell phone/electronics Medications Brought to Hospitalno General Health: Weight in kg77.4 kilogram(s)(1) Weight in tgi592.6 pound(s) Weight Methodactual (measured) Scale Typebed Height [...] Arrangementshouse Services Anticipated at Transitionnone Anticipated [facility] Significant IndicatorsComplete Information Review: Allergies, Home Meds [...] From History and Physical 08-Mar-2023 23:30 Normal [facility] Admission Risk Screen - Adul ton 03-08-2023 Admission Risk Screen - Adult Allergies: Allergies: penicillin: Anaphylaxis Intolerances: codeine: GI Upset Patient Verification: New W ID Band Applied in my Departmentno Type of ID Patient is WearingW wristband, but not applied here Patient Transferred from Other Facility ([facility], [facility],etc)no Patient Identity Verified Bypatient ID Band [...] AlertFor Ebola-like Symptoms: Isolate Patient and Notify Provider/Farm Technician For Contact: Notify Provider/Farm Technician Advance Directive: Advance Directive/DNRno (2) Advance Directive [...] demonstration; verbal instruction Cultural Considerationsnone Developmental Considerationsnone Confucianism Considerationsnone Learning Assessment (Other Learner): Other learner availableno Depression Screen: During the past month, have you often been bothered by feeling down, depressed or hopelessno During the past month, have you often had little interest or pleasure in doing thingsno Have you had any thoughts of harming anyone elseno (1) Elim Suicide: Risk Screen Not Applicable/Able to Answerable to be screened In the Past Month: Have you wished you were or could go to sleep and not wake upno(1) In the Past Month: Have you had any actual thoughts of killing yourself no(1) Lifetime: Have you ever done, started to do, or prepared to do anything to end your lifeno Elim Suicide Risknegative Adult Nutrition Screen: Have you [...] Spiritual Screen: Are there any cultural, spiritual, sikh practices/values/needs that are important for us to knowno CAGE: Is this an injured patient at a Trauma Center ([facility]/[place]/[facility]/[place]): no (2) Vaccinations: Vaccination - Influenza Vaccination Screen: Is it flu season (between and September 29)Yes Screening for identified contraindications to influenza vaccinationno contraindications identified Influenza vaccine indicatedyes Vaccination - Pneumonia Vaccination Screen: Patient has received a previous pneumonia vaccine:no/unknown... Immunocompetent persons with underlying chronic conditions or reside in predatory animal exterminator care facilitiesnone of these conditions Persons with Functional o (more content not included)... Normal [facility] BASIC METABOLIC PANELon Anion gap [Moles/Vol] 15 mmol/L Normal - 20 [facility] Comment on above: Performed By: #### B #### [facility] [address] [place] [address] Calcium [Mass/Vol] 9.1 mg/dL Normal 8.6 - 10.3 [facility] Comment on above: Performed By: #### B MP #### [facility] [address] [place] [address] Chloride [Moles/Vol] 100 mmol/L Normal 98 - 107 [facility] Comment on above: Performed By: #### B MP #### [facility] [address] [place] [address] Creatinine [Mass/Vol] 0.96 mg/dL Normal 0.50 - 1.05 [facility] Comment on above: Performed By: #### B MP #### [facility] [address] [address] GFR/1.73 sq M.predicted among non-blacks MDRD (S/P/Bld) [Vol rate/Area] 74 mL/min/{1.73_m2} Normal >90 [facility] Comment on above: Result Comment: CALC ULATIONS OF ESTIMATED GFR ARE PERFORMED USING THE 2020 CKD-EPI STUDY REFIT EQUATION WITHOUT THE RACE VARIABLE FOR THE IDMS-TRACEABLE CREATININE METHODS. https://jasn.asnjournals.org/content/early//ASN.44877 68480 Performed By: #### B MP #### [facility] [address] [address] Glucose [Mass/Vol] 87 mg/dL Normal 74 - 99 [facility] Comment on above: Performed By: #### B MP #### [facility] [address] [place] [address] HCO3 (Bld) [Moles/Vol] 25 mmol/L Normal 21 - 32 [facility] Comment on above: Performed By: #### B MP #### [facility] [address] [place] [address] Potassium [Moles/Vol] 4.6 mmol/L Normal 3.5 - 5.3 [facility] Comment on above: Result Comment: MILD HEMOLYSIS DETECTED. The result may be falsely elevated due to hemolysis or other interferents. Clinical correlation is recommended. Repeat testing may be considered. Performed By: #### B MP #### [facility] [address] [place] [address] Sodium [Moles/Vol] 135 mmol/L Low 136 - 145 [facility] Comment on above: Performed By: #### B MP #### [facility] [address] [facility] [place] [address] Urea nitrogen [Mass/Vol] 15 mg/dL Normal 6 - 23 [facility] Comment on above: Performed By: #### B MP #### [facility] [address] [place] [address] CBC AND DIFFERENTIALon 03-08 % AUTOMATED IMMATURE GRAN 0.5 % Normal 0.0 - 0.9 [facility] Comment on above: Result Comment: Evelina ture Granulocyte Count (IG) includes promyelocytes, myelocytes and metamyelocytes but does not include bands. Percent differential counts (%) should be interpreted in the context of the absolute cell counts (cells/L). Performed By: #### C BCDF #### [facility] [id number] [place] [address] Basophils (Bld) [#/Vol] 0.03 10*3/uL Normal 0.00 - 0.10 [facility] Comment on above: Performed By: #### C BCDF #### [facility] [id number] [place] [address] Basophils/100 WBC (Bld) 0.3 % Normal 0.0 - 2.0 [facility] Comment on above: Performed By: #### C BCDF #### [facility] [id number] [place] [address] Eosinophils (Bld) [#/Vol] 0.01 10*3/uL Normal 0.00 - 0.70 [facility] Comment on above: Performed By: #### C BCDF #### [facility] [id number] [place] [address] Eosinophils/100 WBC (Bld) 0.1 % Normal 0.0 - 6.0 [facility] Comment on above: Performed By: #### C BCDF #### [facility] [address] [place] [address] Erythrocyte distribution width (RBC) [Ratio] 12.9 % Normal 11.5 - 14.5 [facility] Comment on above: Performed By: #### C BCDF #### [facility] [address] [facility] [address] Hematocrit (Bld) [Volume fraction] 41.6 % Normal 36.0 - 46.0 [facility] Comment on above: Performed By: #### C BCDF #### [facility] [address] [facility] [place] [address] Hemoglobin (Bld) [Mass/Vol] 14.0 g/dL Normal 12.0 - 16.0 [facility] Comment on above: Performed By: #### C BCDF #### [facility] [id number] [place] [address] [place] [address] Lymphocytes (Bld) [#/Vol] 1.09 10*3/uL Low 1.20 - 4.80 [facility] Comment on above: Performed By: #### C BCDF #### [address] [place] [address] Lymphocytes/100 WBC (Bld) 10.1 % Normal 13.0 - 44.0 [facility] Comment on above: Performed By: #### C BCDF #### [facility] [id number] [place] [address] [place] [address] MCHC (RBC) [Mass/Vol] 33.7 g/dL Normal 32.0 - 36.0 [facility] Comment on above: Performed By: #### C BCDF #### [facility] [id number] [place] [address] [place] [address] MCV (RBC) [Entitic vol] 90 fL Normal 80 - 100 [facility] Comment on above: Performed By: #### C BCDF #### [facility] [address] [facility] [place] [address] Monocytes (Bld) [#/Vol] 0.92 10*3/uL Normal 0.10 - 1.00 [facility] Comment on above: Performed By: #### C BCDF #### [facility] [address] [place] [address] Monocytes/100 WBC (Bld) 8.5 % Normal 2.0 - 10.0 [facility] Comment on above: Performed By: #### C BCDF #### [facility] [address] [place] [address] Neutrophils (Bld) [#/Vol] 8.73 10*3/uL High 1.20 - 7.70 [facility] Comment on above: Performed By: #### C BCDF #### [facility] [address] [place] [address] Neutrophils/100 WBC (Bld) 80.5 % Normal 40.0 - 80.0 [facility] Comment on above: Performed By: #### C BCDF #### [facility] [address] [place] [address] Platelets (Bld) [#/Vol] 260 10*3/uL Normal 150 - 450 [facility] Comment on above: Performed By: #### C BCDF #### [facility] [address] [place] [address] RBC 4.64 x10E12/L Normal 4.00 - 5.20 [facility] Comment on above: Performed By: #### C BCDF #### [facility] [address] [place] [address] WBC (Bld) [#/Vol] 10.8 10*3/uL Normal 4.4 - 11.3 [facility] Comment on above: Performed By: #### C BCDF #### [facility] [address] [place] [address] CT Abdomen and Pelvis with I V Contraston 03-08-2023 CT Abdomen and Pelvis W contrast IV Normal [facility] Work Phone: Complete Blood Count + Diffe rentialon 03-08-2023 Basophils/100 WBC (Bld) 0.3 % 0.0 - 2.0 [facility] Work Phone: Erythrocyte distribution width (RBC) [Ratio] 12.9 % See Below [facility] Work Phone: Comment on above: Reference Range: 11. 5 - 14.5 Hematocrit (Bld) [Volume fraction] 41.6 % See Below [facility] Work Phone: Comment on above: Reference Range: 36. 0 - 46.0 Hemoglobin (Bld) [Mass/Vol] 14.0 g/dL See Below [facility] Work Phone: Comment on above: Reference Range: 12. 0 - 16.0 Lymphocytes/100 WBC (Bld) 10.1 % See Below [facility] Work Phone: Comment on above: Reference Range: 13. 0 - 44.0 MCHC (RBC) [Mass/Vol] 33.7 g/dL See Below [facility] Work Phone: Comment on above: Reference Range: 32. 0 - 36.0 MCV (RBC) [Entitic vol] 90 fL 80 - 100 [facility] Work Phone: Monocytes/100 WBC (Bld) 8.5 % 2.0 - 10.0 [facility] Work Phone: Neutrophils/100 WBC (Bld) 80.5 % See Below [facility] Work Phone: Comment on above: Reference Range: 40. 0 - 80.0 Platelets (Bld) [#/Vol] 260 10*3/uL 150 - 450 [facility] Work Phone: RBC (Bld) [#/Vol] 4.64 {x10E12/L} See Below [facility] Work Phone: Comment on above: Reference Range: 4.0 0 - 5.20 WBC (Bld) [#/Vol] 10.8 10*3/uL 4.4 - 11.3 [facility] Work Phone: Complete Blood Count + Differential 0.03 {x10E9/L} See Below [facility] Work Phone: Comment on above: Reference Range: 0.0 0 - 0.10 Complete Blood Count + Differential 0.01 {x10E9/L} See Below [facility] Work Phone: Comment on above: Reference Range: 0.0 0 - 0.70 Complete Blood Count + Differential 0.92 {x10E9/L} See Below [facility] Work Phone: Comment on above: Reference Range: 0.1 0 - 1.00 Complete Blood Count + Differential 1.09 {x10E9/L} below low threshold See Below [facility] Work Phone: Comment on above: Reference Range: 1.2 0 - 4.80 Complete Blood Count + Differential 8.73 {x10E9/L} above high threshold See Below [facility] Work Phone: Comment on above: Reference Range: 1.2 0 - 7.70 Complete Blood Count + Differential 0.1 % 0.0 - 6.0 [facility] Work Phone: Complete Blood Count + Differential 0.5 % 0.0 - 0.9 [facility] Work Phone: Comment on above: Immature Granulocyte Count (IG) includes promyelocytes, myelocytes and metamyelocytes but does not include bands. Percent differential counts (%) should be interpreted in the context of the absolute cell counts (cells/L). Cult, Urineon 03-08-2023 Bacteria identified Cx Nom (U) Abnormal [facility] Work Phone: HEPATIC FUNCTION PANELon Albumin [Mass/Vol] 3.8 g/dL Normal 3.4 - 5.0 [facility] Comment on above: Performed By: #### T [facility] #### [facility] [address] [place] [address] ALP [Catalytic activity/Vol] 73 U/L Normal 33 - 110 [facility] Comment on above: Performed By: #### T RP #### [facility] [address] [place] [address] ALT [Catalytic activity/Vol] 16 U/L Normal 7 - 45 [facility] Comment on above: Result Comment: Anjelica ents treated with Sulfasalazine may generate falsely decreased results for ALT. Performed By: #### T [facility] #### [facility] [address] [facility] [place] [address] AST [Catalytic activity/Vol] 26 U/L Normal 9 - 39 [facility] Comment on above: Result Comment: MILD HEMOLYSIS DETECTED. The result may be falsely elevated due to hemolysis or other interferents. Clinical correlation is recommended. Repeat testing may be considered. Performed By: #### T RP #### [facility] [address] [place] [address] Bilirubin [Mass/Vol] 0.9 mg/dL Normal 0.0 - 1.2 [facility] Comment on above: Performed By: #### T RP #### [facility] [address] [place] [address] Bilirubin.indirect [Mass/Vol] 0.1 mg/dL Normal 0.0 - 0.3 [facility] Comment on above: Result Comment: MILD HEMOLYSIS DETECTED. The result may be falsely decreased due to hemolysis or other interferents. Clinical correlation is recommended. Repeat testing may be considered. Performed By: #### T RP #### [facility] [address] [place] [address] Protein [Mass/Vol] 7.3 g/dL Normal 6.4 - 8.2 [facility] Comment on above: Performed By: #### T RP #### [facility] [address] [place] [address] Hepatic Function Panelon Albumin BCP dye [Mass/Vol] 3.8 g/dL 3.4 - 5.0 [facility] Work Phone: ALP [Catalytic activity/Vol] 73 U/L 33 - 110 [facility] Work Phone: ALT With P-5'-P [Catalytic activity/Vol] 16 U/L 7 - 45 [facility] Work Phone: Comment on above: Patients treated wit h Sulfasalazine may generate falsely decreased results for ALT. AST With P-5'-P [Catalytic activity/Vol] 26 U/L 9 - 39 [facility] Work Phone: Comment on above: MILD HEMOLYSIS DETEC IMELDA. The result may be falsely elevated due tohemolysis or other interferents. Clinical correlation is recommended.Repeat testing may be considered. Bilirubin [Mass/Vol] 0.9 mg/dL 0.0 - 1.2 [facility] Work Phone: Bilirubin.direct [Mass/Vol] 0.1 mg/dL 0.0 - 0.3 [facility] Work Phone: Comment on above: MILD HEMOLYSIS DETEC IMELDA. The result may be falsely decreased due tohemolysis or other interferents. Clinical correlation is recommended.Repeat testing may be considered. Protein [Mass/Vol] 7.3 g/dL 6.4 - 8.2 [facility] Work Phone: LACTATEon 03-08-2023 Lactate [Moles/Vol] 0.5 mmol/L Normal 0.4 - 2.0 [facility] Comment on above: Result Comment: Yesi puncture immediately after or during the administration of Metamizole may lead to falsely low results. Testing should be performed immediately prior to Metamizole dosing. Performed By: #### L ACT #### [facility] [address] [place] [address] LIPASEon 03-08-2023 Lipase [Catalytic activity/Vol] 13 U/L Normal 9 - 82 [facility] Comment on above: Result Comment: Yesi puncture immediately after or during the administration of Metamizole may lead to falsely low results. Testing should be performed immediately prior to Metamizole dosing. A-rutptk-r-benzoquinone imine (metabolite of Acetaminophen) will generate erroneously low results in samples for patients that have taken toxic doses of acetaminophen. Performed By: #### R ENAL #### [facility] [address] [place] [address] Laboratory - Chemistry and C hemistry - challengeon 03-08-2023 Anion gap [Moles/Vol] 15 mmol/L 10 - 20 [facility] Work Phone: Calcium [Mass/Vol] 9.1 mg/dL 8.6 - 10.3 [facility] Work Phone: Chloride [Moles/Vol] 100 mmol/L 98 - 107 [facility] Work Phone: CO2 [Moles/Vol] 25 mmol/L 21 - 32 [facility] Work Phone: Creatinine [Mass/Vol] 0.96 mg/dL See Below [facility] Work Phone: Comment on above: Reference Range: 0.5 0 - 1.05 Glucose [Mass/Vol] 87 mg/dL 74 - 99 [facility] Work Phone: Potassium [Moles/Vol] 4.6 mmol/L 3.5 - 5.3 [facility] Work Phone: Comment on above: MILD HEMOLYSIS DETEC IMELDA. The result may be falsely elevated due tohemolysis or other interferents. Clinical correlation is recommended.Repeat testing may be considered. Sodium [Moles/Vol] 135 mmol/L below low threshold 136 - 145 [facility] Work Phone: TSH Qn 0.67 m[IU]/L See Below [facility] Work Phone: Comment on above: Reference Range: 0.4 4 - 3.98 TSH testing is performed using different testing methodology at [facility] than at other [facility]. Direct result comparisons should only be made within the same method. TSH Qn Canceled [facility] Work Phone: Comment on above: TSH testing is perfo rmed using different testing methodology at [facility] than at other [facility]. Direct result comparisons should only be made within the same method. Urea nitrogen [Mass/Vol] 15 mg/dL 6 - 23 [facility] Work Phone: Lactate, Levelon 03-08-2023 Lactate [Moles/Vol] 0.5 mmol/L 0.4 - 2.0 [facility] Work Phone: Comment on above: Venipuncture immedia tely after or during the administration of Metamizole may lead to falsely low results. Testing should be performed immediately prior to Metamizole dosing. Lipase, Serumon 03-08-2023 Lipase [Catalytic activity/Vol] 13 U/L 9 - 82 [facility] Work Phone: Comment on above: Venipuncture immedia tely after or during the administration of Metamizole may lead to falsely low results. Testing should be performed immediately prior to Metamizole dosing. L-hlafez-a-benzoquinone imine (metabolite of Acetaminophen) will generate erroneously low results in samples for patients that have taken toxic doses of acetaminophen. No Panel Informationon 03-08 74 {mL/min/1.73m2} >90 [facility] Work Phone: Comment on above: CALCULATIONS OF NURA MATED GFR ARE PERFORMED USING THE 2020 CKD-EPI STUDY REFIT EQUATION WITHOUT THE RACE VARIABLE FOR THE IDMS-TRACEABLE CREATININE METHODS.https://jasn.asnjournals.org/content/early//A SN.5272241148 Provider Note - ED v3on Provider Note [...] and discussed with attending physician Dr. Kelly Matthews DO EM PGY3 HISTORY OF PRESENTING ILLNESS DAMARI is a 47 year old Female and was seen by me at 08-Mar-2023 15:58 for a chief complaint of abdominal pain (Patient c/o right sided abdominal pain for the past week, (more content not included)... Normal [facility] Radiologyon 03-08-2023 XR Chest 2 Views Normal [facility] Work Phone: Risk Screen - [...] an injured patient at a Trauma Center ([facility]/[place]/[facility]/[place]): no Electronic Signatures: Dion Cedeño (RN) (Signed 08-Mar-2023 15:56) Authored: Preferred Language, Patient Preferred Pharmacy, Advanced Directives, Family Violence Adult, Learning Assessment (Patient), Learning Assessment (Other Learner), Pressure Injury/TB/Substance, Pressure Injury, CAGE Last Updated: 08-Mar-2023 15:56 by Dion Cedeño (RN) Normal [facility] TSH WITH REFLEX TO FREE T4 I F ABNORMALon 03-08-2023 TSH Qn 0.67 m[IU]/L Normal 0.44 - 3.98 [facility] Comment on above: Result Comment: TSH testing is performed using different testing methodology at [facility] than at other [facility]. Direct result comparisons should only be made within the same method. Performed By: #### R ENAL #### [facility] [address] [place] [address] TSH Canceled Normal [facility] Comment on above: Order Comment: TEST TSH WITH REFLEX TO FREE T4 IF ABNORMAL WAS CANCELLED, 03/08/2023 17:57Condensed orders with other chemistries. Result Comment: TSH testing is performed using different testing methodology at [facility] than at [facility]. Direct result comparisons should only be made within the same method. Performed By: #### R ENAL #### [facility] [address] [place] [address] Triage - EDon 03-08-2023 Triage - ED [...] BMI (kg/m2): 29.311 Calculated BSA (m2) 1.87 [place] Coma Scale: Best Eye Response: (E4) spontaneous [...] Past Medical History Reviewedno Electronic Signatures: Dion Cedeño) (Signed 08-Mar-2023 15:56) Entered: Risk Screens, Pain, Travel History, Chart Review, Scores, Past Medical History Authored: Quick Triage, Risk Screens, Pain, Travel History, Chart Review, Scores, Past Medical History Last Updated: 08-Mar-2023 15:56 by Dion Cedeño (RN) Normal [facility] UA MICROSCOPICon 03-08-2023 BACTERIA 4+ /HPF Abnormal [facility] Comment on above: Performed By: #### R ENAL #### [facility] [address] [place] [address] Mucus Ql (Urine sed) 3+ /LPF Normal [facility] Comment on above: Performed By: #### R ENAL #### [facility] [address] [place] [address] RBC 4 /HPF Normal 0-5 [facility] [facility] Comment on above: Performed By: #### R ENAL #### [facility] [address] [place] [address] SQUAMOUS EPITH. CELLS 11 /HPF Normal [facility] Comment on above: Performed By: #### R ENAL #### [facility] [address] [place] [address] WBC (U) [#/Vol] /uL Abnormal 0-5 [facility] Comment on above: Performed By: #### R ENAL #### [facility] [address] [place] [address] WBC CLUMPS FEW Normal [facility] Comment on above: Performed By: #### R ENAL #### [facility] [address] [place] [address] URINALYSIS WITH CULTURE IF I NDICATEDon 03-08-2023 Appearance (U) HAZY Normal CLEAR [facility] Comment on above: Performed By: #### R ENAL #### [facility] [address] [place] [address] Bilirubin Ql (U) Negative Normal NEGATIVE [facility] Comment on above: Performed By: #### R ENAL #### [facility] [address] [place] [address] Color (U) YELLOW Normal STRAW,YELLOW [facility] Comment on above: Performed By: #### R ENAL #### [facility] [address] [place] [address] Glucose Ql (U) Negative Normal NEGATIVE [facility] Comment on above: Performed By: #### R ENAL #### [facility] [address] [place] [address] Hemoglobin Ql (U) SMALL(1+) Abnormal NEGATIVE [facility] Comment on above: Performed By: #### R ENAL #### [facility] [address] [place] [address] Ketones Ql (U) Negative Normal NEGATIVE [facility] Comment on above: Performed By: #### R ENAL #### [facility] [address] [place] [address] Leukocyte esterase Test strip Ql (U) LARGE(3+) Abnormal NEGATIVE [facility] Comment on above: Performed By: #### R ENAL #### [facility] [address] [place] [address] Nitrite Ql (U) Positive Abnormal NEGATIVE [facility] Comment on above: Performed By: #### R ENAL #### [facility] [address] [place] [address] pH (U) 5.0 [pH] Normal 5.0 - 8.0 [facility] Comment on above: Performed By: #### R ENAL #### [facility] [address] [place] [address] Protein Ql (U) 100(2+) Abnormal NEGATIVE [facility] Comment on above: Performed By: #### R ENAL #### [facility] [address] [place] [address] Specific gravity (U) [Rel density] 1.018 Normal 1.005 - 1.035 [facility] Comment on above: Performed By: #### R ENAL #### [facility] [address] [place] [address] Urobilinogen (U) [Mass/Vol] mg/dL Normal 0.0 - 1.9 [facility] Comment on above: Performed By: #### R ENAL #### [facility] [address] [place] [address] Color (U) YELLOW See Below [facility] Work Phone: Comment on above: Reference Range: STR AW,YELLOW Glucose Ql (U) Negative NEGATIVE [facility] Work Phone: Ketones Ql (U) Negative NEGATIVE [facility] Work Phone: Leukocyte esterase Test strip Ql (U) LARGE(3+) Abnormal NEGATIVE [facility] Work Phone: pH (U) 5.0 [pH] 5.0 - 8.0 [facility] Work Phone: Protein (U) [Mass/Vol] 100(2+) Abnormal NEGATIVE [facility] Work Phone: RBC (U) [#/Vol] SMALL(1+) Abnormal NEGATIVE [facility] Work Phone: Specific gravity (U) [Rel density] 1.018 1 See Below [facility] Work Phone: Comment on above: Reference Range: 1.0 05 - 1.035 URINALYSIS WITH CULTURE IF INDICATED Positive Abnormal NEGATIVE [facility] Work Phone: URINALYSIS WITH CULTURE IF INDICATED <2.0 0.0 - 1.9 [facility] Work Phone: URINALYSIS WITH CULTURE IF INDICATED Negative NEGATIVE [facility] Work Phone: URINALYSIS WITH CULTURE IF INDICATED HAZY CLEAR [facility] Work Phone: URINE CULTURE,BACTERIALon URINE CULTURE,BACTERIAL PATIENT: DAMARI RIOS LOCATION: [address]#: [id number] : 77 AGE: SEX: F ORDERED BY: [...] DOSE DEPENDENT NS=NONSUSCEPTIBLE X=REPORTED IN ERROR Normal [facility] Comment on above: Performed By: #### T [facility] #### [facility] [address] [place] [address] Urinalysis, Microscopicon Urinalysis, Microscopic 3+ [facility] Work Phone: Urinalysis, Microscopic 4+ Abnormal [facility] Work Phone: Urinalysis, Microscopic 11 {/HPF} [facility] Work Phone: Urinalysis, Microscopic 4 {/HPF} 0-5 [facility] Work Phone: Urinalysis, Microscopic FEW [facility] Work Phone: Urinalysis, Microscopic >182 Abnormal 0-5 [facility] Work Phone: CHEST 2 VIEWon 02-28-2022 CHEST 2 VIEW *FINAL Date of Service: 02/28/2022 15:21 Adm #: [id number] Reading Dr:ELLIS VARGAS Signoff Dr: ELLIS VARGAS PROCEDURE: CHEST 2 VIEW - NXR 0020 REASON FOR EXAM: cough short of breath RESULT: Patient Name: DAMARI RIOS STUDY: CHEST 2 VIEW; 02/28/2022 3:21 pm INDICATION: cough short of breath; COMPARISON: October 31, 2016 ACCESSION NUMBER(S): [id number] ORDERING CLINICIAN: ELIZABETH LOWE TECHNIQUE: Views: PA and Lateral FINDINGS: RESULTS: The cardiac silhouette is within normal limits. Mediastinal contours are unremarkable. The lungs demonstrate no infiltrate or atelectasis. There is no evidence for pleural effusion. The osseous structures are unremarkable. IMPRESSION: No radiographic evidence for acute cardiopulmonary disease. Dictation workstation: [id number] Original Interpreting Physician: ELLIS VARGAS MD Original Transcribed by/Date: MMODAL Feb 28 2022 3:09P Original Electronically Signed by/Date: ELLIS VARGAS MD Feb 28 2022 4:58P Addendum Interpreting Physician: Addendum Transcribed by/Date: NO ADDENDUM Addendum Electronically Signed by/Date: [facility] Tobacco Screening.on 022 Tobacco use status CPHS b) No [facility] Work Phone: Falls Risk [...] CUTOFF LEVEL: 150 NG /ML The metabolite X-rqjei-sdxpukerscfqyf (LAAM) is not detected by this method [...] L SEE BELOW [facility]90 DO Work Phone: Comment on above: Drug [...] and Lateral Normal [facility] DO Work Phone: CALCIUM TOTAL [facility] 09-27-19 Calcium [Mass/Vol] 9.5 mg/dL 8.5 - 10. 2 mg/dL [facility] PTH INTACT Don 09-26-2021 Parathyrin.intact [Mass/Vol] 33 pg/mL 15 - 65 pg/mL [facility] UA DIP, URINE (POC)on 2021 BILIRUBIN UA (POCT) Negative Negative [facility] CLARITY UA (POCT) Clear [facility] COLOR UA (POCT) Yellow [facility] GLUCOSE UA (POCT) Negative Negative mg/dL [facility] HEMOGLOBIN/BLOOD UA (POCT) Large Abnormal Negative [facility] KETONE UA (POCT) Negative Negative mg/dL [facility] LEUKOCYTES UA (POCT) Negative Negative [facility] NITRITE UA (POCT) Negative Negative [facility] PH UA (POCT) 5.0 4.5 - 8.0 [facility] Protein Ql (U) 100 mg/dL Abnormal Negative mg/dL [facility] SPECIFIC GRAVITY UA (POCT) >=1.030 1.005 - 1.030 [facility] UROBILINOGEN UA (POCT) 0.2 E.U./dL Alexa l E.U./dL [facility] URIC ACID BLOODon 09-26-2021 Urate [Mass/Vol] 5.1 mg/dL 2.5 - 6.6 mg/dL [facility] Antidep Panel, Urineon 08-11 AMITRIPTYLINE [facility] Comment on above: Result Comment: NONE DET Unit: ng/mL Urine Reporting Limit: 100 ng/mL Synonym(s): Elavil(R); Endep(R) Analysis by Gas Chromatography (GC) and Gas Chromatography/Mass Spectrometry (GC/MS) Performed By: #### U TCAQT #### [place] [address] AMOXAPINE [facility] Comment on above: Result Comment: NONE DET Unit: ng/mL Urine Reporting Limit: 100 ng/mL Synonym(s): Asendin(R) Analysis by Gas Chromatography (GC) and Gas Chromatography/Mass Spectrometry (GC/MS) Performed By: #### U TCAQT #### [place] [address] CLOMIPRAMINE [facility] Comment on above: Result Comment: NONE DET Unit: ng/mL Urine Reporting Limit: 100 ng/mL Synonym(s): Anafranil(R) Analysis by Gas Chromatography (GC) and Gas Chromatography/Mass Spectrometry (GC/MS) Performed By: #### U TCAQT #### [place] [address] DESIPRAMINE [facility] Comment on above: Result Comment: NONE DET Unit: ng/mL Urine Reporting Limit: 100 ng/mL Synonym(s): Imipramine Metabolite; Norpramin(R); Pertofrane(R) Desipramine is a metabolite of Imipramine and is also available as an independent therapeutic agent. 24-hour post-dose urine typically contains less than 1% of an administered dose. Analysis by Gas Chromatography (GC) and Gas Chromatography/Mass Spectrometry (GC/MS) Performed By: #### U TCAQT #### [place] [id number] DESMETHYLCLOMIPRAMINE [facility] Comment on above: Result Comment: NONE DET Unit: ng/mL Urine Reporting Limit: 100 ng/mL Synonym(s): Clomipramine Metabolite Analysis by Gas Chromatography (GC) and Gas Chromatography/Mass Spectrometry (GC/MS) Performed By: #### U TCAQT #### [place] [address] DESMETHYLDOXEPIN [facility] Comment on above: Result Comment: NONE DET Unit: ng/mL Urine Reporting Limit: 100 ng/mL Synonym(s): Doxepin Metabolite Analysis by Gas Chromatography (GC) and Gas Chromatography/Mass Spectrometry (GC/MS) Performed By: #### U TCAQT #### [place] [address] DESMETHYLTRIMIPRAMINE [facility] Comment on above: Result Comment: NONE DET Unit: ng/mL Urine Reporting Limit: 100 ng/mL Synonym(s): Trimipramine Metabolite Analysis by Gas Chromatography (GC) and Gas Chromatography/Mass Spectrometry (GC/MS) Performed By: #### U TCAQT #### [place] [address] DOXEPIN [facility] Comment on above: Result Comment: NONE DET Unit: ng/mL Urine Reporting Limit: 100 ng/mL Synonym(s): Sinequan(R) Analysis by Gas Chromatography (GC) and Gas Chromatography/Mass Spectrometry (GC/MS) Performed By: #### U TCAQT #### [place] [address] FLUOXETINE [facility] Comment on above: Result Comment: NONE DET Unit: ng/mL Urine Reporting Limit: 100 ng/mL Synonym(s): Prozac(R) Analysis by Gas Chromatography (GC) and Gas Chromatography/Mass Spectrometry (GC/MS) Performed By: #### U TCAQT #### [place] [address] IMIPRAMINE [facility] Comment on above: Result Comment: NONE DET Unit: ng/mL Urine Reporting Limit: 100 ng/mL Synonym(s): Tofranil(R) Analysis by Gas Chromatography (GC) and Gas Chromatography/Mass Spectrometry (GC/MS) Performed By: #### U TCAQT #### [address] [address] MAPROTILINE [facility] Comment on above: Result Comment: NONE DET Unit: ng/mL Urine Reporting Limit: 100 ng/mL Synonym(s): Ludiomil(R) Analysis by Gas Chromatography (GC) and Gas Chromatography/Mass Spectrometry (GC/MS) Performed By: #### U TCAQT #### [place] [id number] MIRTAZAPINE [facility] Comment on above: Result Comment: NONE DET Unit: ng/mL Urine Reporting Limit: 100 ng/mL Synonym(s): Remeron(R) Analysis by Gas Chromatography (GC) and Gas Chromatography/Mass Spectrometry (GC/MS) This test was developed and its performance characteristics determined by [facility]. It has not been cleared or approved by the [place] Food and Drug Administration. Testing performed at [facility] [employer] [address] [place] [id number] CLIA [id number] Test performed by: [facility] [address],[address], unless otherwise specified. Performed at the [facility] Reference Laboratory unless otherwise noted. Performed By: #### U TCAQT #### [place] [id number] NORFLUOXETINE [facility] Comment on above: Result Comment: NONE DET Unit: ng/mL Urine Reporting Limit: 100 ng/mL Synonym(s): Fluoxetine Metabolite Analysis by Gas Chromatography (GC) and Gas Chromatography/Mass Spectrometry (GC/MS) Performed By: #### U TCAQT #### [place] [id number] NORTRIPTYLINE [facility] Comment on above: Result Comment: NONE [...] (GC/MS) Performed By: #### U TCAQT #### [place] [address] PROTRIPTYLINE [facility] Comment on above: Result Comment: NONE DET Unit: ng/mL Urine Reporting Limit: 100 ng/mL Synonym(s): Vivactil(R) Substance(s) known to interfere with the identity and/or quantity of the reported result: Norcyclobenzaprine (Cyclobenzaprine metabolite) and Desmethylsertraline (Sertraline metabolite). Analysis by Gas Chromatography (GC) and Gas Chromatography/Mass Spectrometry (GC/MS) Performed By: #### U TCAQT #### [place] [address] TRAZODONE [facility] Comment on above: Result Comment: NONE DET Unit: mcg/mL Urine Reporting Limit: 0.20 mcg/mL Synonym(s): Desyrel(R) Analysis by Gas Chromatography (GC) and Gas Chromatography/Mass Spectrometry (GC/MS) Performed By: #### U TCAQT #### [place] [address] TRIMIPRAMINE [facility] Comment on above: Result Comment: NONE DET Unit: ng/mL Urine Reporting Limit: 100 ng/mL Synonym(s): Surmontil(R) Analysis by Gas Chromatography (GC) and Gas Chromatography/Mass Spectrometry (GC/MS) Performed By: #### U TCAQT #### [place] [address] URINE DRUG SCREENon 08-02-19 22 AMPHETAMINE/ECSTASY [facility] Comment on above: Result Comment: NEGA TIVE Performed at [place] [address] Performed By: #### U DS #### [facility] [address] [place] [id number] [place] [address] BARBITURATE [facility] Comment on above: Result Comment: NEGA TIVE Performed at [address] [address] Performed By: #### U DS #### [place] [id number] [place] [address] Main Laboratory [facility] [address] [place] [address] BENZODIAZEPINE [facility] Comment on above: Result Comment: NEGA TIVE Performed at [facility] [address] [place] [address] Performed By: #### U DS #### [facility] [address] [place] [address] [facility] [address] [place] [address] COCAINE METABOLITES [facility] Comment on above: Result Comment: NEGA TIVE Performed at [facility] [address] [place] [address] Performed By: #### U DS #### [facility] [address] [place] [address] [facility] [address] [place] [address] [facility] Comment on above: Result Comment: NEGA TIVE Performed at [facility] [address] [place] [address] Performed By: #### U DS #### [facility] [address] [place] [address] [facility] [address] [place] [address] OPIATE [facility] Comment on above: Result Comment: NEGA TIVE Performed at [facility] [address] [place] [address] Performed By: #### U DS #### [facility] [address] [place] [address] [facility] [address] [place] [address] OXYCODONE [facility] Comment on above: Result Comment: NEGA TIVE Performed at [facility] [address] [place] [address] Performed By: #### U DS #### [facility] [address] [place] [address] [facility] [address] [place] [address] PCP [facility] Comment on above: Result Comment: NEGA TIVE Performed at [facility] [address] [place] [address] Performed By: #### U DS #### [facility] [address] [place] [address] [place] [address] THC/CANNABINOIDS Normal [facility] Comment on above: Result Comment: GEOFF HERNÁNDEZ Performed at [place] [address] Performed By: #### U DS #### [address] [place] [address] COMMENT [facility] Comment on above: Result Comment: Thes [...] 200 ng/ml OXYCODONE 100 ng/ml Performed at [place] [id number] Performed By: #### U DS #### [address] [place] [id number] US KIDNEY/BLADDERon 03-04-20 21 [facility] CT Cardiac Scoringon 021 CT Cardiac Scoring Normal [facility] Work Phone: Laboratory - Chemistry and C hemistry - challengeon 11-25-2020 Albumin BCP dye [Mass/Vol] 4.3 g/dL 3.4 - 5.0 [facility] [employer] Work Phone: ALP [Catalytic activity/Vol] 86 U/L 33 - 110 [facility] [employer] Work Phone: ALT With P-5'-P [Catalytic activity/Vol] 116 U/L above high threshold 7 - 45 [facility] [employer] Work Phone: Comment on above: Patients treated wit h Sulfasalazine may generate falsely decreased results for ALT. Anion gap [Moles/Vol] 12 mmol/L 10 - 20 [facility] [employer] Work Phone: AST With P-5'-P [Catalytic activity/Vol] 107 U/L above high threshold 9 - 39 [facility] [employer] Work Phone: Bilirubin [Mass/Vol] 0.8 mg/dL 0.0 - 1.2 [facility] [employer] Work Phone: Calcium [Mass/Vol] 9.2 mg/dL 8.6 - 10.3 [facility] [employer] Work Phone: Chloride [Moles/Vol] 104 mmol/L 98 - 107 [facility] [employer] Work Phone: CO2 [Moles/Vol] 26 mmol/L 21 - 32 [facility] [employer] Work Phone: Creatinine [Mass/Vol] 0.97 mg/dL See Below [facility] [employer] Work Phone: Comment on above: Reference Range: 0.5 0 - 1.05 Glucose [Mass/Vol] 98 mg/dL 74 - 99 [facility] [employer] Work Phone: Potassium [Moles/Vol] 3.9 mmol/L 3.5 - 5.3 [facility] [employer] Work Phone: Protein [Mass/Vol] 7.3 g/dL 6.4 - 8.2 [facility] [employer] Work Phone: Sodium [Moles/Vol] 138 mmol/L 136 - 145 [facility] [employer] Work Phone: TSH Qn 1.84 m[IU]/L See Below [facility] [employer] Work Phone: Comment on above: Reference Range: 0.4 4 - 3.98 TSH testing is performed using different testing methodology at [facility] than at other [facility]. Direct result comparisons should only be made within the same method. Urea nitrogen [Mass/Vol] 12 mg/dL 6 - 23 [facility] [employer] Work Phone: Laboratory - Hematology and Cell countson 11-25-2020 Erythrocyte distribution width (RBC) [Ratio] 13.5 % See Below [facility] [employer] [place] Phone: Comment on above: Reference Range: 11. 5 - 14.5 Hematocrit (Bld) [Volume fraction] 43.2 % See Below [facility] [employer] [place] Phone: Comment on above: Reference Range: 36. 0 - 46.0 Hemoglobin (Bld) [Mass/Vol] 14.2 g/dL See Below [facility] [employer] [place] Phone: Comment on above: Reference Range: 12. 0 - 16.0 MCHC (RBC) [Mass/Vol] 32.9 g/dL See Below [facility] [employer] Work Phone: Comment on above: Reference Range: 32. 0 - 36.0 MCV (RBC) [Entitic vol] 95 fL 80 - 100 [facility] [employer] [place] Phone: Platelets (Bld) [#/Vol] 299 10*3/uL 150 - 450 [facility] [employer] [place] Phone: RBC (Bld) [#/Vol] 4.55 {x10E12/L} See Below [facility] [employer] Work Phone: Comment on above: Reference Range: 4.0 0 - 5.20 WBC (Bld) [#/Vol] 5.8 10*3/uL 4.4 - 11.3 [facility] [employer] Work Phone: Lipid Panelon 11-25-2020 Cholesterol [Mass/Vol] 169 mg/dL 0 - 199 [facility] [employer] [place] Phone: Comment on above: . AGE DESIRABLE [...] Cholesterol in HDL [Mass/Vol] 34.9 mg/dL Abnormal [employer] Work Phone: Comment on above: . AGE VERY LOW LOW N ORMAL HIGH 0-19 Y < 35 < 40 40-45 ---- 20-24 Y ---- < 40 >45 ---- >24 Y ---- < 40 40-60 >60. Cholesterol in LDL [Mass/Vol] 100 mg/dL above high threshold 0 - 99 [employer] Phone: Comment on above: . NEAR BORD AGE BECKY RABLE OPTIMAL HIGH HIGH VERY HIGH 0-19 Y 0 - 109 --- 110-129 >/= 130 ---- 20-24 Y 0 - 119 --- 120-159 >/= 160 ---- >24 Y 0 - 99 100-129 130-159 160-189 >/=190. Cholesterol.total/Chol esterol in HDL [Mass ratio] 4.8 {ratio} [employer] Phone: Comment on above: REF VALUESDESIRABLE < 3.4HIGH RISK > 5.0 Triglyceride [Mass/Vol] 171 mg/dL above high threshold 0 - 149 [employer] Phone: Comment on above: . AGE DESIRABLE [...] Lipid Panel 34 mg/dL 0 - 40 [facility] [employer] Work Phone: No Panel Informationon 11-25 >60 >60 [facility] [employer] Work Phone: Comment on above: CALCULATIONS OF NURA MATED GFR ARE PERFORMED USING THE MDRD STUDY EQUATION FOR THE IDMS-TRACEABLE CREATININE METHODS. CLIN CHEM 2007;53:766-72 [email or web address] 1: [email or web address]/musescripts/musew eb.[email or web address]?RetrieveTestByD ateTime?[email or web address] 31248&Date=25-11-2020& Time=10%3a52%3a21%3a00 &TestType=ECG&Site=7&O utputType=PDF&Ext=PDF [facility] [employer] [place] Phone: Normal sinus rhythm with sinus arrhythmia [facility] [employer] Work Phone: Borderline Abnormal [facility] [employer] Work Phone: [phone] [facility] [employer] Work Phone: 200 1 [facility] [employer] Work Phone: 146 1 [facility] [employer] Work Phone: 220 1 [facility] [employer] Work Phone: 13 1 [facility] [employer] Work Phone: 52 1 [facility] [employer] Work Phone: 34 1 [facility] [employer] Work Phone: 45 1 [facility] [employer] Work Phone: [phone] 1 [facility] [employer] Work Phone: 370 1 [facility] [employer] Work Phone: 74 1 [facility] [employer] Work Phone: 148 1 [facility] [employer] Work Phone: 79 1 [facility] [employer] Work Phone: XR Chest PA and Lateralon IMPRESSION: No acute radiographic abnormality. Power Bender Operator: CASSIE Transcribe Date/Time: Oct 08 2020 3:02P Dictated by : NABOR SELF MD This examination was interpreted and the report reviewed and electronically signed by: NABOR SELF MD on Oct 08 2020 3:02PM [facility] DIVISION OF RADIOLOGY * * [...] soft tissues: Unremarkable. DIVISION OF RADIOLOGY Provider, [facility] - 10/08/2020 * * *Final Report* * [...] Unremarkable. IMPRESSION IMPRESSION: No acute radiographic abnormality. Power Bender Operator: CASSIE Transcribe Date/Time: Oct 08 2020 3:02P Dictated by : NABOR SELF MD This examination was interpreted and the report reviewed and electronically signed by: NABOR SELF MD on Oct 08 2020 3:02PM [facility] Radiology Study observation (narrative) [facility] XR Chest PA and LateralOrder ed By: Cc Provider on 10-08-2020 [facility] Vital Signs Date Time Vital Sign Value Performing Clinician Faci lity 01-27-2025 10:43-0400 Body mass index (BMI) [Ratio] 32.92 kg/m2 Krislyn Aberegg PA Work Phone: [facility] 01-27-2025 10:43-0400 Body temperature 97.39 [degF] Krislyn Aberegg PA Work Phone: [facility] 01-27-2025 10:43-0400 Body weight 87 kg Krislyn Aberegg PA Work Phone: [facility] 01-27-2025 10:43-0400 Diastolic blood pressure 80 mm[Hg] Krislyn Aberegg PA Work Phone: [facility] 01-27-2025 10:43-0400 Heart rate 85 /min Krislyn Aberegg PA Work Phone: [facility] 01-27-2025 10:43-0400 Respiratory rate 19 /min Krislyn Aberegg PA Work Phone: [facility] 01-27-2025 10:43-0400 SaO2% (BldA) [Mass fraction] 98 % Krislyn Aberegg PA Work Phone: [facility] 01-27-2025 10:43-0400 Systolic blood pressure 120 mm[Hg] Krislyn Aberegg PA Work Phone: [facility] 01-06-2025 13:16-0400 Body mass index (BMI) [Ratio] 33.23 kg/m2 Deejay Frances FUEL HOUSE ATTENDANT.MECHANICAL INSPECTOR Work Phone: [facility] 01-06-2025 13:16-0400 Body temperature 98.4 [degF] Deejay Frances APRN.MECHANICAL INSPECTOR Work Phone: [facility] 01-06-2025 13:16-0400 Body weight 87.8 kg Deejay Frances FUEL HOUSE ATTENDANT.MECHANICAL INSPECTOR Work Phone: [facility] 01-06-2025 13:16-0400 Diastolic blood pressure 70 mm[Hg] Deejay Frances FUEL HOUSE ATTENDANT.MECHANICAL INSPECTOR Work Phone: [facility] 01-06-2025 13:16-0400 Heart rate 80 /min Deejay Frances FUEL HOUSE ATTENDANT.MECHANICAL INSPECTOR Work Phone: [facility] 01-06-2025 13:16-0400 Respiratory rate 16 /min Deejay Frances FUEL HOUSE ATTENDANT.MECHANICAL INSPECTOR Work Phone: [facility] 01-06-2025 13:16-0400 SaO2% (BldA) [Mass fraction] 96 % Deejay Frances FUEL HOUSE ATTENDANT.MECHANICAL INSPECTOR Work Phone: [facility] 01-06-2025 13:16-0400 Systolic blood pressure 122 mm[Hg] Deejay Frances FUEL HOUSE ATTENDANT.MECHANICAL INSPECTOR Work Phone: [facility] 12-04-2024 07:46-0400 Body temperature 97.8 [degF] Dwayne Stephens MD Work Phone: [facility] 12-04-2024 07:46-0400 Diastolic blood pressure 86 mm[Hg] Dwayne Stephens MD Work Phone: [facility] 12-04-2024 07:46-0400 Heart rate 68 /min Dwayne Stephens MD Work Phone: [facility] 12-04-2024 07:46-0400 Respiratory rate 16 /min Dwayne Stephens MD Work Phone: [facility] 12-04-2024 07:46-0400 SaO2% (BldA) [Mass fraction] 98 % Dwayne Stephens MD Work Phone: [facility] 12-04-2024 07:46-0400 Systolic blood pressure 126 mm[Hg] Dwayne Stephens MD Work Phone: [facility] 12-04-2024 06:17-0400 Body height 165.1 cm Dwayne Stephens MD Work Phone: [facility] 12-04-2024 06:17-0400 Body mass index (BMI) [Ratio] 32.8 kg/m2 Dwayne Stephens MD Work Phone: [facility] 12-04-2024 06:17-0400 Body weight 89.6 kg Dwayne Stephens MD Work Phone: [facility] 12-02-2024 13:21-0400 Body height 165.1 cm Dwayne Stephens MD Work Phone: [facility] 12-02-2024 13:21-0400 Body mass index (BMI) [Ratio] 32.3 kg/m2 Dwayne Stephens MD Work Phone: [facility] 12-02-2024 13:21-0400 Body weight 87.99 kg Dwayne Stephens MD Work Phone: [facility] 12-02-2024 13:21-0400 Diastolic blood pressure 76 mm[Hg] Dwayne Stephens MD Work Phone: [facility] 12-02-2024 13:21-0400 Heart rate 78 /min Dwayne Stephens MD Work Phone: [facility] 12-02-2024 13:21-0400 Respiratory rate 18 /min Dwayne Stephens MD Work Phone: [facility] 12-02-2024 13:21-0400 SaO2% (BldA) [Mass fraction] 94 % Dwayne Stephens MD Work Phone: [facility] 12-02-2024 13:21-0400 Systolic blood pressure 109 mm[Hg] Dwayne Stephens MD Work Phone: [facility] 11-30-2024 17:03-0400 Body temperature 98.7 [degF] Dwayne Stephens MD Work Phone: [facility] 11-30-2024 17:03-0400 Diastolic blood pressure 86 mm[Hg] Dwayne Stephens MD Work Phone: [facility] 11-30-2024 17:03-0400 Heart rate 70 /min Dwayne Stephens MD Work Phone: [facility] 11-30-2024 17:03-0400 Respiratory rate 16 /min Dwayne Stephens MD Work Phone: [facility] 11-30-2024 17:03-0400 SaO2% (BldA) [Mass fraction] 98 % Dwayne Stephens MD Work Phone: [facility] 11-30-2024 17:03-0400 Systolic blood pressure 146 mm[Hg] Dwayne Stephens MD Work Phone: [facility] 11-30-2024 15:25-0400 Body height 165.1 cm Dwayne Stephens MD Work Phone: [facility] 11-30-2024 15:25-0400 Body mass index (BMI) [Ratio] 32.6 kg/m2 Dwayne Stephens MD Work Phone: [facility] 11-30-2024 15:25-0400 Body weight 89.08 kg Dwayne Stephens MD Work Phone: [facility] 11-04-2024 14:43-0400 Body height 165.1 cm Dwayne Stephens MD Work Phone: [facility] 11-04-2024 14:43-0400 Body mass index (BMI) [Ratio] 32.8 kg/m2 Dwayne Stephens MD Work Phone: [facility] 11-04-2024 14:43-0400 Body weight 89.52 kg Dwayne Stephens MD Work Phone: [facility] 10-23-2024 17:18-0400 Body temperature 97.6 [degF] Dwayne Stephens MD Work Phone: [facility] 10-23-2024 17:18-0400 Diastolic blood pressure 86 mm[Hg] Dwayne Stephens MD Work Phone: [facility] 10-23-2024 17:18-0400 Heart rate 74 /min Dwayne Stephens MD Work Phone: [facility] 10-23-2024 17:18-0400 Respiratory rate 16 /min Dwayne Stephens MD Work Phone: [facility] 10-23-2024 17:18-0400 SaO2% (BldA) [Mass fraction] 99 % Dwayne Stephens MD Work Phone: [facility] 10-23-2024 17:18-0400 Systolic blood pressure 122 mm[Hg] Dwayne Stephens MD Work Phone: 2(913)295-802177 [address] 10-23-2024 11:36-0400 Body mass index (BMI) [Ratio] 31.5 kg/m2 Dwayne Stephens MD Work Phone: 6(332)848-917377 [address] 10-23-2024 11:36-0400 Body weight 86 kg Dwayne Stephens MD Work Phone: 6(848)233-476977 [address] 10-01-2024 21:25-0400 Body mass index (BMI) [Ratio] 33.5 kg/m2 Dwayne Stephens MD Work Phone: 2(397)714-725710 [place] [address] 10-01-2024 21:25-0400 Body weight 91.5 kg Dwayne Stephens MD Work Phone: 0(582)007-486377 [address] 10-01-2024 21:23-0400 Body height 165.1 cm Dwayne Stephens MD Work Phone: 3(648)678-117678 [place] [address] 10-01-2024 21:23-0400 Body temperature 97.8 [degF] Dwayne Stephens MD Work Phone: 2(809)393-589078 [place] [address] 10-01-2024 21:23-0400 Diastolic blood pressure 93 mm[Hg] Dwayne Stephens MD Work Phone: 9(209)410-389477 [address] 10-01-2024 21:23-0400 Heart rate 86 /min Dwayne Stephens MD Work Phone: [facility] 10-01-2024 21:23-0400 Respiratory rate 16 /min Dwayne Stephens MD Work Phone: 9(507)864-958110 [place] [address] 10-01-2024 21:23-0400 SaO2% (BldA) [Mass fraction] 100 % Dwayne Stephens MD Work Phone: 1(698)917-020610 [place] [address] 10-01-2024 21:23-0400 Systolic blood pressure 153 mm[Hg] Dwayne Stephens MD Work Phone: [facility] 09-24-2024 23:39-0400 Diastolic blood pressure 81 mm[Hg] Dwayne Stephens MD Work Phone: [facility] 09-24-2024 23:39-0400 Heart rate 86 /min Dwayne Stephens MD Work Phone: [facility] 09-24-2024 23:39-0400 Respiratory rate 18 /min Dwayne Stephens MD Work Phone: [facility] 09-24-2024 23:39-0400 SaO2% (BldA) [Mass fraction] 97 % Dwayne Stephens MD Work Phone: [facility] 09-24-2024 23:39-0400 Systolic blood pressure 132 mm[Hg] Dwayne Stephens MD Work Phone: [facility] 09-24-2024 21:39-0400 Body height 165.1 cm Dwayne Stephens MD Work Phone: [facility] 09-24-2024 21:39-0400 Body mass index (BMI) [Ratio] 32.8 kg/m2 Dwayne Stephens MD Work Phone: [facility] 09-24-2024 21:39-0400 Body temperature 97.9 [degF] Dwayne Stephens MD Work Phone: [facility] 09-24-2024 21:39-0400 Body weight 89.35 kg Dwayne Stephens MD Work Phone: [facility] 09-04-2024 16:22-0500 Body temperature 98 [degF] Dwayne Stephens MD Work Phone: [facility] 09-04-2024 16:22-0500 Diastolic blood pressure 89 mm[Hg] Dwayne Stephens MD Work Phone: [facility] 09-04-2024 16:22-0500 Heart rate 78 /min Dwayne Stephens MD Work Phone: [facility] 09-04-2024 16:22-0500 Respiratory rate 16 /min Dwayne Stephens MD Work Phone: 0(494)385-240377 [address] 09-04-2024 16:22-0500 SaO2% (BldA) [Mass fraction] 99 % Dwayne Stephens MD Work Phone: 7(398)112-193810 [place] [address] 09-04-2024 16:22-0500 Systolic blood pressure 128 mm[Hg] Dwayne Stephens MD Work Phone: 3(438)201-343577 [address] 09-04-2024 14:41-0500 Body height 165.1 cm Dwayne Stephens MD Work Phone: 6(125)289-323078 [place] [address] 09-04-2024 14:41-0500 Body mass index (BMI) [Ratio] 32.1 kg/m2 Dwayne Stephens MD Work Phone: 9(842)254-865078 [place] [address] 09-04-2024 14:41-0500 Body weight 87.54 kg Dwayne Stephens MD Work Phone: 0(194)105-225278 [place] [address] 08-11-2024 19:32-0500 Diastolic blood pressure 86 mm[Hg] Dwayne Stephens MD Work Phone: 4(961)592-589178 [place] [address] 08-11-2024 19:32-0500 Heart rate 84 /min Dwayne Stephens MD Work Phone: 9(541)775-328878 [place] [address] 08-11-2024 19:32-0500 Respiratory rate 16 /min Dwayne Stephens MD Work Phone: 3(352)399-959377 [address] 08-11-2024 19:32-0500 SaO2% (BldA) [Mass fraction] 98 % Dwayne Stephens MD Work Phone: 4(618)309-923877 [address] 08-11-2024 19:32-0500 Systolic blood pressure 155 mm[Hg] Dwayne Stephens MD Work Phone: 7(157)424-780678 [place] [address] 08-11-2024 17:33-0500 Body mass index (BMI) [Ratio] 31.7 kg/m2 Dwayne Stephens MD Work Phone: [facility] 08-11-2024 17:33-0500 Body temperature 97 [degF] Dwayne Stephens MD Work Phone: [facility] 08-11-2024 17:33-0500 Body weight 86.54 kg Dwayne Stephens MD Work Phone: [facility] 07-30-2024 21:00-0500 Diastolic blood pressure 66 mm[Hg] Dwayne Stephens MD Work Phone: [facility] 07-30-2024 21:00-0500 SaO2% (BldA) [Mass fraction] 93 % Dwayne Stephens MD Work Phone: [facility] 07-30-2024 21:00-0500 Systolic blood pressure 113 mm[Hg] Dwayne Stephens MD Work Phone: [facility] 07-30-2024 17:54-0500 Heart rate 63 /min Dwayne Stephens MD Work Phone: [facility] 07-30-2024 17:54-0500 Respiratory rate 18 /min Dwayne Stephens MD Work Phone: [facility] 07-30-2024 15:29-0500 Body temperature 97.3 [degF] Dwayne Stephens MD Work Phone: [facility] 07-30-2024 15:27-0500 Body mass index (BMI) [Ratio] 27.9 kg/m2 Dwayne Stephens MD Work Phone: [facility] 07-30-2024 15:27-0500 Body weight 76.2 kg Dwayne Stephens MD Work Phone: [facility] 07-18-2024 14:26-0500 Body mass index (BMI) [Ratio] 32.43 kg/m2 Arnulfo Sanchez APRN.MECHANICAL INSPECTOR Work Phone: [facility] 07-18-2024 14:26-0500 Body temperature 97.59 [degF] Arnulfo Sanchez APRN.MECHANICAL INSPECTOR Work Phone: [facility] 07-18-2024 14:26-0500 Body weight 85.7 kg Arnulfo Sanchez APRN.MECHANICAL INSPECTOR Work Phone: [facility] 07-18-2024 14:26-0500 Diastolic blood pressure 90 mm[Hg] Arnulfoshanthi Sanchez FUEL HOUSE ATTENDANT.MECHANICAL INSPECTOR Work Phone: [facility] 07-18-2024 14:26-0500 Heart rate 63 /min Arnulfo Sanchez FUEL HOUSE ATTENDANT.MECHANICAL INSPECTOR Work Phone: [facility] 07-18-2024 14:26-0500 Respiratory rate 18 /min Arnulfo Sanchez FUEL HOUSE ATTENDANT.MECHANICAL INSPECTOR Work Phone: [facility] 07-18-2024 14:26-0500 SaO2% (BldA) [Mass fraction] 98 % Arnulfo Sanchez APRN.MECHANICAL INSPECTOR Work Phone: [facility] 07-18-2024 14:26-0500 Systolic blood pressure 139 mm[Hg] Arnulfo Sanchez FUEL HOUSE ATTENDANT.MECHANICAL INSPECTOR Work Phone: [facility] 06-28-2024 14:35-0500 Body temperature 98.3 [degF] Dwayne Stephens MD Work Phone: [facility] 06-28-2024 14:35-0500 Diastolic blood pressure 66 mm[Hg] Dwayne Stephens MD Work Phone: [facility] 06-28-2024 14:35-0500 Heart rate 77 /min Dwayne Stephens MD Work Phone: [facility] 06-28-2024 14:35-0500 Respiratory rate 18 /min Dwayne Stephens MD Work Phone: [facility] 06-28-2024 14:35-0500 SaO2% (BldA) [Mass fraction] 95 % Dwayne Stephens MD Work Phone: [facility] 06-28-2024 14:35-0500 Systolic blood pressure 133 mm[Hg] Dwayne Stephens MD Work Phone: [facility] 06-28-2024 02:41-0500 Body mass index (BMI) [Ratio] 29.7 kg/m2 Dwayne Stephens MD Work Phone: [facility] 06-28-2024 02:41-0500 Body weight 80.99 kg Dwayne Stephens MD Work Phone: [facility] 06-19-2024 15:00-0500 Body temperature 97 [degF] Dwayne Stephens MD Work Phone: [facility] 06-19-2024 15:00-0500 Diastolic blood pressure 92 mm[Hg] Dwayne Stephens MD Work Phone: [facility] 06-19-2024 15:00-0500 Heart rate 76 /min Dwayne Stephens MD Work Phone: [facility] 06-19-2024 15:00-0500 Respiratory rate 16 /min Dwayne Stephens MD Work Phone: [facility] 06-19-2024 15:00-0500 SaO2% (BldA) [Mass fraction] 97 % Dwayne Stephens MD Work Phone: [facility] 06-19-2024 15:00-0500 Systolic blood pressure 127 mm[Hg] Dwayne Stephens MD Work Phone: [facility] 06-19-2024 12:31-0500 Body mass index (BMI) [Ratio] 29.8 kg/m2 Dwayne Stephens MD Work Phone: [facility] 06-19-2024 12:31-0500 Body weight 81.4 kg Dwayne Stephens MD Work Phone: [facility] 06-09-2024 15:55-0500 Body temperature 98.3 [degF] Dwayne Stephens MD Work Phone: [facility] 06-09-2024 15:55-0500 Diastolic blood pressure 82 mm[Hg] Dwayne Stephens MD Work Phone: [facility] 06-09-2024 15:55-0500 Heart rate 78 /min Dwayne Stephens MD Work Phone: [facility] 06-09-2024 15:55-0500 Respiratory rate 18 /min Dwayne Stephens MD Work Phone: [facility] 06-09-2024 15:55-0500 SaO2% (BldA) [Mass fraction] 97 % Dwayne Stephens MD Work Phone: [facility] 06-09-2024 15:55-0500 Systolic blood pressure 132 mm[Hg] Dwayne Stephens MD Work Phone: 3(634)659-047310 [place] [address] 06-09-2024 10:43-0500 Body mass index (BMI) [Ratio] 30.1 kg/m2 Dwayne Stephens MD Work Phone: 9(973)593-213610 [place] [address] 06-09-2024 10:43-0500 Body weight 82.1 kg Dwayne Stephens MD Work Phone: 2(460)922-922310 [place] [address] 05-09-2024 16:35-0500 Body temperature 97.6 [degF] Dwayne Stephens MD Work Phone: 0(266)430-941277 [address] 05-09-2024 16:35-0500 Diastolic blood pressure 108 mm[Hg] Dwayne Stephens MD Work Phone: [facility] 05-09-2024 16:35-0500 Heart rate 63 /min Dwayne Stephens MD Work Phone: 2(521)900-687910 [place] [address] 05-09-2024 16:35-0500 Respiratory rate 14 /min Dwayne Stephens MD Work Phone: [facility] 05-09-2024 16:35-0500 SaO2% (BldA) [Mass fraction] 98 % Dwayne Stephens MD Work Phone: [facility] 05-09-2024 16:35-0500 Systolic blood pressure 144 mm[Hg] Dwayne Stephens MD Work Phone: 1(719)529-361210 [place] [address] 05-09-2024 14:04-0500 Body mass index (BMI) [Ratio] 30.6 kg/m2 Dwayne Stephens MD Work Phone: [facility] 05-09-2024 14:04-0500 Body weight 83.46 kg Dwayne Stephens MD Work Phone: [facility] 05-08-2024 12:09-0500 Body temperature 97.1 [degF] Dwayne Stephens MD Work Phone: [facility] 05-08-2024 12:09-0500 Diastolic blood pressure 100 mm[Hg] Dwayne Stephens MD Work Phone: [facility] 05-08-2024 12:09-0500 Heart rate 89 /min Dwayne Stephens MD Work Phone: [facility] 05-08-2024 12:09-0500 Respiratory rate 16 /min Dwayne Stephens MD Work Phone: [facility] 05-08-2024 12:09-0500 SaO2% (BldA) [Mass fraction] 96 % Dwayne Stephens MD Work Phone: [facility] 05-08-2024 12:09-0500 Systolic blood pressure 130 mm[Hg] Dwayne Stephens MD Work Phone: [facility] 05-08-2024 09:58-0500 Body mass index (BMI) [Ratio] 30.7 kg/m2 Dwayne Stephens MD Work Phone: [facility] 05-08-2024 09:58-0500 Body weight 83.6 kg Dwayne Stephens MD Work Phone: [facility] 05-07-2024 14:49-0500 Diastolic blood pressure 79 mm[Hg] Dwayne Stephens MD Work Phone: [facility] 05-07-2024 14:49-0500 Systolic blood pressure 137 mm[Hg] Dwayne Stephens MD Work Phone: [facility] 05-07-2024 14:43-0500 Body mass index (BMI) [Ratio] 30.7 kg/m2 Dwayne Stephens MD Work Phone: [facility] 05-07-2024 14:43-0500 Body weight 83.91 kg Dwayne Stephens MD Work Phone: [facility] 10-22-2023 13:04-0400 Body mass index (BMI) [Ratio] 30.84 kg/m2 Angel Laguerre MD Work Phone: [facility] 10-22-2023 13:04-0400 Body temperature 97.5 [degF] Angle Laguerre MD Work Phone: [facility] 10-22-2023 13:04-0400 Body weight 81.5 kg Angel Laguerre MD Work Phone: [facility] 10-22-2023 13:04-0400 Diastolic blood pressure 82 mm[Hg] Angel Laguerre MD Work Phone: [facility] 10-22-2023 13:04-0400 Heart rate 82 /min Angel Laguerre MD Work Phone: [facility] 10-22-2023 13:04-0400 Respiratory rate 16 /min Angel Laguerre MD Work Phone: [facility] 10-22-2023 13:04-0400 SaO2% (BldA) [Mass fraction] 98 % Angel Laguerre MD Work Phone: [facility] 10-22-2023 13:04-0400 Systolic blood pressure 148 mm[Hg] Angel Laguerre MD Work Phone: [facility] 10-09-2023 08:36-0400 Body temperature 97.3 [degF] Dolly Sainz APRN.MECHANICAL INSPECTOR Work Phone: [facility] 10-09-2023 08:36-0400 Body weight 79 kg Dolly Sainz APRN.MECHANICAL INSPECTOR Work Phone: [facility] 10-09-2023 08:36-0400 Diastolic blood pressure 88 mm[Hg] Dolly Sainz APRN.MECHANICAL INSPECTOR Work Phone: [facility] 10-09-2023 08:36-0400 Heart rate 60 /min Dolly Praisler-Wood FUEL HOUSE ATTENDANT.MECHANICAL INSPECTOR Work Phone: [facility] 10-09-2023 08:36-0400 Respiratory rate 18 /min Dolly Praisler-Wood FUEL HOUSE ATTENDANT.MECHANICAL INSPECTOR Work Phone: [facility] 10-09-2023 08:36-0400 SaO2% (BldA) [Mass fraction] 97 % Dolly Praisler-Wood FUEL HOUSE ATTENDANT.MECHANICAL INSPECTOR Work Phone: [facility] 10-09-2023 08:36-0400 Systolic blood pressure 128 mm[Hg] Dolly Praisler-Wood FUEL HOUSE ATTENDANT.MECHANICAL INSPECTOR Work Phone: [facility] 09-22-2023 08:26-0400 Body temperature 97 [degF] Justyn Pendlebury FUEL HOUSE ATTENDANT.MECHANICAL INSPECTOR Work Phone: [facility] 09-22-2023 08:26-0400 Body weight 78.3 kg Justyn Pendlebury FUEL HOUSE ATTENDANT.MECHANICAL INSPECTOR Work Phone: [facility] 09-22-2023 08:26-0400 Diastolic blood pressure 90 mm[Hg] Justyn Pendlebury FUEL HOUSE ATTENDANT.MECHANICAL INSPECTOR Work Phone: [facility] 09-22-2023 08:26-0400 Heart rate 84 /min Justyn Pendlebury FUEL HOUSE ATTENDANT.MECHANICAL INSPECTOR Work Phone: [facility] 09-22-2023 08:26-0400 Respiratory rate 21 /min Justyn Pendlebury FUEL HOUSE ATTENDANT.MECHANICAL INSPECTOR Work Phone: [facility] 09-22-2023 08:26-0400 SaO2% (BldA) [Mass fraction] 99 % Justyn Pendlebury FUEL HOUSE ATTENDANT.MECHANICAL INSPECTOR Work Phone: [facility] 09-22-2023 08:26-0400 Systolic blood pressure 122 mm[Hg] Justyn Pendlebury FUEL HOUSE ATTENDANT.MECHANICAL INSPECTOR Work Phone: [facility] 08-06-2023 14:34-0500 Body mass index (BMI) [Ratio] 29.74 kg/m2 Lul de Capite FU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 Work Phone: [facility] 08-06-2023 14:34-0500 Body weight 78.6 kg Lul de Capite FU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 Work Phone: [facility] 08-06-2023 14:34-0500 Diastolic blood pressure 90 mm[Hg] Lul de Capite FU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 Work Phone: [facility] 08-06-2023 14:34-0500 Heart rate 66 /min Lul de Capite FU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 Work Phone: [facility] 08-06-2023 14:34-0500 SaO2% (BldA) [Mass fraction] 94 % Lul de Capite FU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 Work Phone: [facility] 08-06-2023 14:34-0500 Systolic blood pressure 162 mm[Hg] Lul de Capite FU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 Work Phone: [facility] 07-03-2023 15:03-0500 Body height 162.6 cm Blayne Weeks MD Work Phone: [facility] 07-03-2023 15:03-0500 Body mass index (BMI) [Ratio] 29.35 kg/m2 Blayne Weeks MD Work Phone: [facility] 07-03-2023 15:03-0500 Body temperature 97.11 [degF] Blayne Weeks MD Work Phone: [facility] 07-03-2023 15:03-0500 Body weight 77.56 kg Blayne Weeks MD Work Phone: [facility] 07-03-2023 15:03-0500 Diastolic blood pressure 80 mm[Hg] Blayne Weeks MD Work Phone: [facility] 07-03-2023 15:03-0500 Heart rate 106 /min Blayne Weeks MD Work Phone: [facility] 07-03-2023 15:03-0500 SaO2% (BldA) [Mass fraction] 97 % Blayne Weeks MD Work Phone: [facility] 07-03-2023 15:03-0500 Systolic blood pressure 130 mm[Hg] Blayne Weeks MD Work Phone: [facility] 05-28-2023 17:15-0500 Heart rate 73 /min Main Reed MD Work Phone: [facility] 05-28-2023 17:15-0500 SaO2% (BldA) [Mass fraction] 95 % Main Reed MD Work Phone: [facility] 05-28-2023 17:00-0500 Diastolic blood pressure 90 mm[Hg] Main Reed MD Work Phone: [facility] 05-28-2023 17:00-0500 Respiratory rate 20 /min Main Reed MD Work Phone: [facility] 05-28-2023 17:00-0500 Systolic blood pressure 143 mm[Hg] Main Reed MD Work Phone: [facility] 05-28-2023 14:01-0500 Body temperature 97.11 [degF] Main Reed MD Work Phone: [facility] 05-28-2023 10:40-0500 Body height 162.6 cm Main Reed MD Work Phone: [facility] 05-28-2023 10:40-0500 Body mass index (BMI) [Ratio] 27.81 kg/m2 Main Reed MD Work Phone: [facility] 05-28-2023 10:40-0500 Body weight 73.48 kg Main Reed MD Work Phone: [facility] 05-14-2023 19:56-0500 Diastolic blood pressure 76 mm[Hg] Verona Cook MD Work Phone: [facility] 05-14-2023 19:56-0500 Heart rate 81 /min Verona Cook MD Work Phone: [facility] 05-14-2023 19:56-0500 SaO2% (BldA) [Mass fraction] 98 % Verona Cook MD Work Phone: [facility] 05-14-2023 19:56-0500 Systolic blood pressure 168 mm[Hg] Verona Cook MD Work Phone: [facility] 05-14-2023 19:28-0500 Respiratory rate 16 /min Verona Cook MD Work Phone: [facility] 05-14-2023 16:11-0500 Body height 162.6 cm Verona Cook MD Work Phone: [facility] 05-14-2023 16:11-0500 Body mass index (BMI) [Ratio] 27.81 kg/m2 Verona Cook MD Work Phone: [facility] 05-14-2023 16:11-0500 Body weight 73.48 kg Verona Cook MD Work Phone: [facility] 04-05-2023 15:07-0400 Body height 162.6 cm Janny Bai MD Work [facility]: [facility] [facility] 04-05-2023 15:07-0400 Body mass index (BMI) [Ratio] 27.64 kg/m2 Janny Bai MD Work Phone: [facility] 04-05-2023 15:07-0400 Body weight 73.03 kg Janny Bai MD Work Phone: [facility] 04-05-2023 15:07-0400 Diastolic blood pressure 96 mm[Hg] Janny Bai MD Work Phone: [facility] 04-05-2023 15:07-0400 Heart rate 73 /min Janny Bai MD Work Phone: [facility] 04-05-2023 15:07-0400 Systolic blood pressure 186 mm[Hg] Janny Bai MD Work Phone: [facility] 03-20-2023 14:46-0400 Body height 163.8 cm Blayne Weeks MD Work Phone: [facility] 03-20-2023 14:46-0400 Body mass index (BMI) [Ratio] 27.55 kg/m2 Blayne Weeks MD Work Phone: [facility] 03-20-2023 14:46-0400 Body temperature 96.91 [degF] Blayne Weeks MD Work Phone: [facility] 03-20-2023 14:46-0400 Body weight 73.94 kg Blayne Weeks MD Work Phone: [facility] 03-20-2023 14:46-0400 Diastolic blood pressure 74 mm[Hg] Blayne Weeks MD Work Phone: [facility] 03-20-2023 14:46-0400 Heart rate 60 /min Blayne Weeks MD Work Phone: [facility] 03-20-2023 14:46-0400 SaO2% (BldA) [Mass fraction] 97 % Blayne Weeks MD Work Phone: [facility] 03-20-2023 14:46-0400 Systolic blood pressure 126 mm[Hg] Blayne Weeks MD Work Phone: [facility] 03-14-2023 11:59-0400 Body temperature 97.16 [degF] Haitham Kousa Other Phone: [facility] 03-14-2023 11:59-0400 Diastolic blood pressure 104 mm[Hg] Haitham Kousa Other Phone: [facility] 03-14-2023 11:59-0400 Heart rate 56 /min Haitham Kousa Other Phone: [facility] 03-14-2023 11:59-0400 Respiratory rate 18 /min Kimberly Cason Other Phone: [facility] 03-14-2023 11:59-0400 SaO2% (BldA) [Mass fraction] 96 % Kimberly Cason Other Phone: [facility] 03-14-2023 11:59-0400 Systolic blood pressure 162 mm[Hg] Kimberly Cason Other Phone: [facility] 08-23-2022 09:30-0500 Body height 163.83 cm ROSEMADELYN JEAN Other [facility] [employer] Other 08-23-2022 09:30-0500 Body mass index (BMI) [Ratio] 29.91 kg/m2 ROSEMADELYN JEAN Other [facility] [employer] Other 08-23-2022 09:30-0500 Body temperature 96.6 [degF] ROSE JEAN Other [facility] [employer] Other 08-23-2022 09:30-0500 Body weight 80.29 kg ROSEMADELYN JEAN Other [facility] [employer] Other 08-23-2022 09:30-0500 Diastolic blood pressure 100 mm[Hg] ROSEMADELYN JEAN Other [facility] [employer] Other 08-23-2022 09:30-0500 Heart rate 76 /min ROSE TED Other [facility] [employer] Other 08-23-2022 09:30-0500 Respiratory rate 18 /min ROSE RAFTERY Other [facility] [employer] Other 08-23-2022 09:30-0500 Systolic blood pressure 142 mm[Hg] ROSE JEAN Other [facility] [employer] Other 04-05-2022 12:00-0400 Body height 163.83 cm AIDAN LÓPEZ Other [facility] [employer] Other 04-05-2022 12:00-0400 Body mass index (BMI) [Ratio] 32.44 kg/m2 AIDAN SCHMITZANTIONE Other [facility] [employer] Other 04-05-2022 12:00-0400 Body temperature 98 [degF] AIDAN SCHMITZANTIONE Other [facility] [employer] Other 04-05-2022 12:00-0400 Body weight 87.09 kg AIDAN SCHMITZANTIONE Other [facility] [employer] Other 04-05-2022 12:00-0400 Diastolic blood pressure 106 mm[Hg] AIDAN SCHMITZANTIONE Other [facility] [employer] Other 04-05-2022 12:00-0400 Heart rate 74 /min AIDAN SCHMITZANTIONE Other [facility] [employer] Other 04-05-2022 12:00-0400 Respiratory rate 18 /min AIDAN SCHMITZANTIONE Other [facility] [employer] Other 04-05-2022 12:00-0400 Systolic blood pressure 192 mm[Hg] AIDAN [facility]MITZANTIONE [facility] Other 03-21-2022 12:00-0400 Body height 163.83 cm AIDAN SCHMITZANTIONE Other [facility] [employer] Other 03-21-2022 12:00-0400 Body mass index (BMI) [Ratio] 27.88 kg/m2 AIDAN SHAH Other [facility] [employer] Other 03-21-2022 12:00-0400 Body temperature 98 [degF] AIDAN SHAH Other [facility] [employer] Other 03-21-2022 12:00-0400 Body weight 74.84 kg AIDAN SHAH Other [facility] [employer] Other 03-21-2022 12:00-0400 Diastolic blood pressure 94 mm[Hg] AIDAN SCHMITZANTIONE Other [facility] [employer] Other 03-21-2022 12:00-0400 Heart rate 67 /min AIDAN SHAH Other [facility] Other 03-21-2022 12:00-0400 Respiratory rate 21 /min AIDAN SCHMITZSHERWIN Other [facility] Other 03-21-2022 12:00-0400 Systolic blood pressure 164 mm[Hg] AIDAN SCHMITZANTIONE Other [facility] [employer] Other 03-15-2022 23:12-0400 Body height 172.72 cm DO Christopher Longinow DO [employer] 03-15-2022 23:12-0400 Body mass index (BMI) [Ratio] 29.4 kg/m2 DO Christopher Longinow DO [employer] 03-15-2022 23:12-0400 Body weight 87.9 kg DO Yemi Toribio DO [facility] [place] 02-28-2022 13:30-0400 Body height 163.83 cm ELIZABETH LOWE Other [facility] [employer] Other 02-28-2022 13:30-0400 Body mass index (BMI) [Ratio] 27.88 kg/m2 ELIZABETH LOWE Other [facility] [employer] Other 02-28-2022 13:30-0400 Body temperature 97 [degF] ELIZABETH LOWE Other [facility] [employer] Other 02-28-2022 13:30-0400 Body weight 74.84 kg ELIZABETH LOWE Other [facility] [address] Other 02-28-2022 13:30-0400 Diastolic blood pressure 100 mm[Hg] ELIZABETH LOWE Other [facility] [employer] Other 02-28-2022 13:30-0400 Systolic blood pressure 178 mm[Hg] ELIZABETH LOWE Other [facility] [employer] Other 10-28-2021 12:11-0400 Body height 162.56 cm H J Kousa Work Phone: [facility] 103 DO Work Phone: 10-28-2021 12:11-0400 Body mass index (BMI) [Ratio] 33.82 kg/m2 H J Kousa Work Phone: [facility] 103 DO Work Phone: 10-28-2021 12:11-0400 Body surface area Derived from formula 1.94 m2 H J Kousa Work Phone: [place] [address] DO Work Phone: 10-28-2021 12:11-0400 Body temperature 97.6 [degF] H J Kousa Work Phone: [place] [address] DO Work Phone: 10-28-2021 12:11-0400 Body weight 89.36 kg H J Kousa Work Phone: [facility] 103 DO Work Phone: 10-17-2021 09:42-0400 Body height 162.56 cm H J Kousa Work Phone: [facility] Work Phone: 10-17-2021 09:42-0400 Body mass index (BMI) [Ratio] 33.99 kg/m2 H J Kousa Work Phone: [facility] Work Phone: 10-17-2021 09:42-0400 Body surface area Derived from formula 1.95 m2 H J Kousa Work Phone: [facility] Work Phone: 10-17-2021 08:13-0400 Body height 10.16 cm H J Kousa Work Phone: [facility] Work Phone: 10-17-2021 08:13-0400 Body mass index (BMI) [Ratio] 8700.65 kg/m2 H J Kousa Work Phone: [facility] Work Phone: 10-17-2021 08:13-0400 Body surface area Derived from formula 0.26 m2 H J Kousa Work Phone: [facility] Work Phone: 10-17-2021 08:13-0400 Body weight 89.81 kg H J Kousa Work Phone: [facility] Work Phone: 10-17-2021 08:13-0400 Diastolic blood pressure 84 mm[Hg] H J Kousa Work Phone: [facility] Work Phone: 10-17-2021 08:13-0400 Heart rate 84 /min H J Kousa Work Phone: [facility] Work Phone: 10-17-2021 08:13-0400 Respiratory rate 18 /min H J Kousa Work Phone: [facility] Work Phone: 10-17-2021 08:13-0400 SaO2% (BldA) [Mass fraction] 98 % H J Kousa Work Phone: [facility] Work Phone: 10-17-2021 08:13-0400 Systolic blood pressure 148 mm[Hg] H J Kousa Work Phone: [facility] Work Phone: 11-25-2020 11:01-0400 Diastolic blood pressure 96 mm[Hg] H J Kousa Work Phone: [facility]Cnpderasad-Jvjn [facility] Work Phone: 11-25-2020 11:01-0400 Systolic blood pressure 158 mm[Hg] H J Kousa Work Phone: TV-Zkqxjdejeh-Grqx [facility] Work Phone: 11-25-2020 10:53-0400 Body height 162.56 cm H J Kousa Work Phone: ZD-Zfetdxpgmm-Apku [facility] Work Phone: 05-27-2021 10:53-0400 Body mass index (BMI) [Ratio] 28.32 kg/m2 H J Kousa Work Phone: W[facility]-Ukvyogbvyh-Eoil [facility] Work Phone: 11-25-2020 10:53-0400 Body surface area Derived from formula 1.8 m2 H J Kousa Work Phone: XQ-Qkzirngbzl-Yqai [facility] Work Phone: 11-25-2020 10:53-0400 Body weight 74.84 kg H J Kousa Work Phone: TF-Awjgdnjagl-Aekm [facility] Work Phone: 11-25-2020 10:53-0400 Diastolic blood pressure 99 mm[Hg] H J Kousa Work Phone: W[facility]-Nchxqvtxhm-Uyzo [facility] Work Phone: 11-25-2020 10:53-0400 Heart rate 84 /min H J Kousa Work Phone: XB-Fpyufhezoh-Nsjg [facility] Work Phone: 11-25-2020 10:53-0400 SaO2% (BldA) [Mass fraction] 95 % H J Kousa Work Phone: WH-Dboekjfqse-Ftbv ord [facility] Work Phone: 11-25-2020 10:53-0400 Systolic blood pressure 154 mm[Hg] H J Kousa Work Phone: IX-Rlxfbwcemi-Fruh ord [facility] Work Phone: Encounters Encounter Date Encounter Type Care Provider Facility Start: 03-11-2025 ambulatory [facility] Facility:[facility] Start: 01-27-2025 End: 01-27-2025 Patient encounter procedure Mj SAVAGE Work Phone: [facility] Comment on above: Maxillary sinusitis, unspecified chronicity (Primary Dx) Start: 01-27-2025 End: 01-27-2025 ambulatory [facility] Facility:[facility] Start: 01-20-2025 End: 01-20-2025 Patient encounter procedure Uma SAVAGE -[facility] Work Phone: Start: 01-20-2025 End: 01-20-2025 ambulatory Dwayne Stephens MD Work Phone: -[facility] Start: 01-14-2025 Non-patient / Non-visit Dr. Sumanth ramírez MD -[facility] Start: 01-14-2025 End: 01-14-2025 ambulatory Dwayne Stephens MD Work Phone: -Cardiovascular Services Start: 01-14-2025 End: 01-14-2025 Patient encounter procedure Ellis Donnelly DPM -Cardiovascular Services Work Phone: Start: 01-13-2025 End: 01-14-2025 ambulatory Dwayne Stephens MD Work Phone: -Pulmonary Services/Neurology Start: 01-13-2025 End: 01-13-[address] 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 Anyi day MD -[facility] Work Phone: Start: 12-16-2024 End: 12-16-2024 Patient encounter procedure Uma SAVAGE -[facility] Work Phone: Start: 12-16-2024 End: 12-16-2024 ambulatory Dwayne Stephens MD Work Phone: [facility] Work Phone: Start: 12-15-2024 End: 12-15-[address] Dwayne Stephens MD -Radiology [place] Work Phone: Start: 12-15-2024 End: 12-15-2024 ambulatory Dwayne Stephens MD Work Phone: [facility] Work Phone: Start: 12-15-2024 End: 12-15-2024 ambulatory Dwayne Stephens Facility:[facility] Start: 12-12-2024 ambulatory Dwayne Stephens Facility:[facility] Start: 12-10-2024 ambulatory Dwayne Stephens Facility:[facility] Start: 12-08-2024 End: 12-08-2024 Emergency department patient visit BUSHRA LOWE DO [facility] Start: 12-04-2024 End: 12-04-2024 Emergency department patient visit Dwayne Stephens MD Work Phone: -Emergency Department Work Phone: Start: 12-02-2024 End: 12-02-[address] Ellis Irizarry MD -[facility] Work Phone: Start: 12-02-2024 End: 12-02-2024 ambulatory Dawyne Stephens MD Work Phone: [facility] Work Phone: Start: 11-30-2024 End: 11-30-2024 Emergency department patient visit Dwayne Stephens MD Work Phone: -Emergency Department Work Phone: Start: 11-13-2024 End: 11-13-2024 Patient encounter procedure Uma SAVAGE -[facility] Work Phone: Start: 11-13-2024 End: 11-13-2024 ambulatory Dwayne Stephens MD Work Phone: [facility] Work Phone: Start: 11-04-2024 End: 11-04-2024 Patient encounter procedure Mirian SAVAGE -[facility] Work Phone: Start: 11-04-2024 End: 11-04-2024 ambulatory Dwayne Stephens Facility:[facility] [place] [place] Start: 10-23-2024 End: 10-23-2024 Emergency department patient visit Dr. Neeta Gonzales DO -Emergency Department Work Phone: Start: 10-17-2024 Non-patient / Non-visit Dr. Sumanth ramírez MD -[facility] Start: 10-17-2024 End: 10-17-2024 ambulatory Dwayne Stephens MD Work Phone: [facility] Work Phone: Start: 10-17-2024 End: 10-17-[address] Dwayne Stephens MD -Cardiovascular Services Work Phone: Start: 10-17-2024 End: 10-17-2024 ambulatory Dwayne Stephens Facility:[facility] Start: 10-16-2024 End: 10-16-[address] Dwayne Stephens MD -Laboratory, [facility] Start: 10-16-2024 End: 10-16-2024 ambulatory Dwayne Stephens Facility:[facility] Start: 10-01-2024 End: 10-01-2024 Emergency department patient visit Dwayne Stephens MD Work Phone: -Emergency Department Work Phone: Start: 09-25-2024 Non-patient / Non-visit Dr. Sumanth ramírez MD -[facility] Start: 09-25-2024 End: 09-25-2024 ambulatory Dwayne Stephens MD Work Phone: [facility] Work Phone: Start: 09-25-2024 End: 09-25-[address] Dwayne Stephens MD -Cardiovascular Services Work Phone: Start: 09-25-2024 End: 09-25-2024 ambulatory Dwayne Stephens Facility:[facility] Start: 09-24-2024 End: 09-25-2024 Emergency department patient visit Dwayne Stephens MD Work Phone: -Emergency Department Work Phone: Start: 09-04-2024 End: 09-04-2024 Emergency department patient visit Dwayne Stephens MD Work Phone: -Emergency Department Work Phone: Start: 08-29-2024 End: 08-29-2024 ambulatory Dwayne Stephens MD Work Phone: [facility] Work Phone: Start: 08-29-2024 End: 08-29-[address] Dwayne Stephens MD -Radiology, [place] Work Phone: Start: 08-29-2024 End: 08-29-2024 ambulatory [facility] Facility:[facility] Start: 08-11-2024 End: 08-11-2024 Emergency department patient visit Dr. Haroon Vieira DO -Emergency Department Work Phone: Start: 08-11-2024 End: 08-11-2024 Patient encounter procedure Rachel Art GUSSET FOLDER-C -Ultrasound, [facility] Work Phone: Start: 08-11-2024 End: 08-11-2024 ambulatory Rachel Art Facility:[facility] Start: 08-04-2024 End: 08-04-[address] Dwayne Stephens MD -Radiology, [place] Work Phone: Start: 08-04-2024 End: 08-04-2024 ambulatory [facility] Facility:[facility] Start: 07-30-2024 End: 07-30-2024 Emergency department patient visit Dr. Sumanth Coyne DO -Emergency Department Work Phone: Start: 07-18-2024 End: 07-18-2024 ambulatory [facility] Facility:[facility] Start: 07-18-2024 End: 07-18-2024 Patient encounter procedure Arnulfo Sanchez APRN.[facility] Work Phone: [facility] Comment on above: Acute otitis media, right (Primary Dx) Start: 07-08-2024 End: 07-08-[address] Anyi Disla MD -Radiology, [place] Work Phone: Start: 07-08-2024 End: 07-08-2024 ambulatory Anyi Disla Facility:[facility] Start: 06-28-2024 End: 06-28-2024 ambulatory Melstone Naif Facility:[facility] Start: 06-28-2024 End: 06-28-2024 Evaluation and management of inpatient Dr. Anyi Disla MD -Medical Surgical 3 Work Phone: Start: 06-19-2024 End: 06-19-2024 Admission to same day surgery center Dr. Anyi Disla MD -Surgical Day Care Start: 06-19-2024 End: 06-19-2024 ambulatory Anyi Disla Facility:[facility] Start: 06-07-2024 End: 06-09-[facility] Start: 06-07-2024 End: 06-09-2024 Evaluation and management of inpatient Dr. Anyi Disla MD -Medical Surgical 3 Work Phone: Start: 06-03-2024 End: 06-03-2024 Patient encounter procedure Rachel MEDINA -Ultrasound, [facility] Work Phone: Start: 06-03-2024 End: 06-03-2024 ambulatory [facility] Facility:[facility] Start: 05-09-2024 End: 05-09-2024 Emergency department patient visit Dr. Albert Sykes DO -Emergency Department Work Phone: Start: 05-08-2024 ambulatory [facility] Start: 05-08-2024 Non-patient / Non-visit Jose Gomez nd DO -[facility] Start: 05-08-2024 End: 05-08-2024 Admission to same day surgery center Jose Hassan DO -Endoscopy Work Phone: Start: 05-08-2024 End: 05-08-2024 ambulatory Chalon Kat Facility:[facility] Start: 05-07-2024 End: 05-07-2024 Patient encounter procedure Rachel MEDINA -[facility] Work Phone: Start: 05-07-2024 End: 05-07-2024 ambulatory Chalon Kat Facility:[facility] [place] [place] Start: 04-23-2024 End: 04-23-2024 [facility]ulatory [facility] Start: 04-17-2024 End: 04-17-2024 [facility]ulatory [facility] Start: 04-07-2024 End: 04-07-2024 ambulatory Chalon Kat Facility:[facility] [place] [place] Start: 04-03-[facility] Start: 03-24-2024 End: 03-24-2024 Emergency department patient visit [facility] Facility:[facility] Start: 03-05-2024 Encounter for genera l adult medical examination without abnormal findings [facility] Start: 02-22-2024 End: 02-22-2024 [facility] Start: 02-18-2024 End: 02-18-2024 ambulatory [facility] Facility:[facility] Start: 10-22-2023 End: 10-22-2023 Patient encounter procedure Angel Laguerre MD Work Phone: [facility] Comment on above: Acute bilateral low back pain with right-sided sciatica (Primary Dx) Start: 10-09-2023 End: 10-09-2023 Patient encounter procedure Dolly Sainz APRN.MECHANICAL INSPECTOR Work Phone: [facility] Comment on above: URI, acute (Primary Dx); Sore throat Start: 09-22-2023 Telephone encounter Justyn lund APRN.MECHANICAL INSPECTOR Work Phone: [facility] Comment on above: Results Start: 09-22-2023 End: 09-22-2023 Subsequent hospital visit by physician Barb [facility] Work Phone: Radiology Comment on above: Injury of finger of right hand, initial encounter [S69.91XA] Start: 09-22-2023 End: 09-22-2023 Office outpatient visit 15 minutes Justyn Maldonado FUEL HOUSE ATTENDANT.MECHANICAL INSPECTOR Work Phone: [place] [facility] Comment on above: Injury of finger of right hand, initial encounter (Primary Dx) Start: 08-31-2023 End: 08-31-2023 Subsequent hospital visit by physician Darby Holter/[facility] Comment on above: Heart palpitations Start: 08-31-2023 End: 08-31-2023 ambulatory [facility] Start: 08-21-2023 Telephone encounter No Pcp FUEL HOUSE ATTENDANT JEANNA Comment on above: Follow Up Phone Call (Post Discharge F/U - attempt made. No answer.) Start: 08-06-2023 End: 08-06-2023 [facility] FU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 Work Phone: [facility] Building Comment on above: Heart palpitations ( Primary Dx); Essential hypertension Start: 08-06-2023 End: 08-06-2023 ambulatory [facility] Start: 07-09-2023 End: 07-09-2023 ambulatory [facility] Start: 07-03-2023 End: 07-04-2023 ambulatory [facility] Start: 07-03-2023 End: 07-03-2023 Office outpatient visit 15 minutes Blayne Weeks MD Work Phone: [facility] Comment on above: Other acute pulmonar y embolism without acute cor pulmonale (CMS/HCC) (Primary Dx); Need for pneumococcal vaccine Start: 06-07-2023 ambulatory [facility] Start: 06-07-2023 End: 06-07-2023 Postop follow up visit related to original px Main Reed MD Work Phone: [facility] Building Comment on above: Postop check (Primar y Dx) Start: 06-06-2023 End: 06-06-2023 Evaluation and management of inpatient [facility] 1 Work Phone: [facility] Function [facility] Comment on above: History of pulmonary embolism (Primary Dx) Start: 06-01-2023 End: 06-11-2023 Evaluation and management of inpatient ZAINAB CROFT Facility:[facility] Start: 05-28-2023 End: 05-28-2023 ambulatory MAIN REED [facility] Start: 05-28-2023 End: 05-28-2023 Subsequent hospital visit by physician Main Reed MD Work Phone: [facility] [place] Comment on above: Adnexal mass (Primar y Dx); Myofascial pain Start: 05-22-2023 End: 05-22-2023 ambulatory [facility] Start: 05-22-2023 End: 05-22-2023 Patient encounter procedure Urology [place] [id number] [facility] Comment on above: Urinary incontinence in female (Primary Dx) Start: 05-14-2023 End: 05-14-2023 Emergency department patient visit Verona Cook MD Work Phone: [facility] Emergency Medicine Comment on above: Kidney stone (Primar y Dx); Abdominal pain, unspecified abdominal location Start: 04-27-2023 End: 04-27-2023 ambulatory [facility] Start: 04-24-2023 End: 04-27-2023 Patient encounter procedure Janny Bai MD Work Phone: [facility] Comment on above: Esophageal dysphagia ; Colon cancer screening Start: 04-05-2023 End: 04-05-2023 ambulatory [facility] Ambulatory Start: 04-05-2023 End: 04-05-2023 Office outpatient new 30 minutes Janny Bai MD Work Phone: [facility] Comment on above: Colon cancer screeni ng (Primary Dx); Esophageal dysphagia Start: 03-28-2023 SURGGRH, Provider: Main Reed, Status: Pen, Time: 7:30 AM Francisco Cason Work Phone: [facility] Work Phone: Start: 03-26-[address] Main Gordon y:[id number] Start: 03-26-2023 Office outpatient vi sit 40 minutes Francisco Cason Work Phone: [facility] Work Phone: Start: 03-26-2023 Patient encounter procedure Francisco Cason Work Phone: [facility] Work Phone: Start: 03-26-2023 End: 03-27-2023 ambulatory [facility] Start: 03-26-2023 End: 03-27-2023 Encounter for general adult medical examination without abnormal findings [facility] Start: 03-21-[address] Greman Calero Facility:[id number] Start: 03-20-2023 End: 03-21-2023 ambulatory [facility] Start: 03-20-2023 End: 03-21-2023 Encounter for general adult medical examination without abnormal findings [facility] Start: 03-20-2023 End: 03-20-2023 Initial preventive medicine new patient 40-64yrs Blayne Weeks MD Work Phone: [facility] Comment on above: Breast cancer screen ing by mammogram (Primary Dx); Encounter for annual physical exam; Colon cancer screening; Arthritis; Moderate asthma without complication, unspecified whether persistent Start: 03-20-2023 End: 03-20-2023 Patient encounter procedure Blayne Weeks MD Work Phone: [facility] Work Phone: Start: 03-09-2023 End: 03-14-2023 Evaluation and management of inpatient Dr. Ronan Delgado Facility: Start: 03-08-2023 End: 03-14-2023 Evaluation and management of inpatient Ronan Pastor Obs 2 Rm 219 Bed B Start: 08-23-2022 End: 08-23-2022 ambulatory ROSE JEAN Other [facility] Other Start: 08-23-2022 Office outpatient vi sit 25 minutes ROSE JEAN [facility] Start: 04-26-2022 End: 04-26-2022 Patient [...] 04-05-2022 End: 04-05-2022 ambulatory AIDAN SHAH Other [facility] Other Start: 04-05-2022 Office outpatient vi sit 15 minutes AIDAN ALYSSA [facility] Start: 04-04-2022 End: 04-04-2022 ambulatory AIDAN LEMONS Other [facility] Other Start: 04-04-2022 Telephone encounter AIDAN LEMONS [facility] Start: 03-21-2022 End: 03-21-2022 ambulatory AIDAN SHAH Other [facility] Other Start: 03-21-2022 Office outpatient vi sit 15 minutes AIDAN SHAH [facility] Start: 03-15-2022 End: 03-16-2022 ambulatory Yemi Toribio Facility:UNKNOWN Start: 02-28-2022 (TELEVNP) [facility] Start: 02-28-2022 (X-RAY) [facility]-RAY Inhouse [facility] Start: 02-28-2022 End: 02-28-2022 Refill Adriana Martinez MD Work Phone: Pulmonary Medicine Comment on above: Refill Request Start: 02-27-2022 Refill Adriana Hernandez Work Phone: Pulmonary Medicine Comment on above: Refill Request Start: 02-21-2022 ambulatory Bárbara Justen root FUEL HOUSE ATTENDANT.MECHANICAL INSPECTOR Work Phone: Telemedicine Comment on above: Treatment not availa ble (Primary Dx) Start: 10-28-2021 NPV, Provider: Keo Brown, Status: Pen, Time: 11:30 AM H J Kousa Work Phone: [facility] [phone] DO Work Phone: Start: 10-28-2021 DUALAUDIO, Provider: Lucila Davis, Status: Pen, Time: 11:00 AM H J Kousa Work Phone: [facility] [phone] DO Work Phone: Start: 10-28-2021 Patient encounter procedure H J Kousa Work Phone: [facility] 103 DO Work Phone: Start: 10-26-2021 Chart Update H J Kousa Work Phone: [facility] [phone] DO Work Phone: Start: 10-18-2021 ambulatory Riri Matthew MD Work Phone: Urology Start: 10-17-2021 Office outpatient ne w 45 minutes H J Kousa Work Phone: [facility] 2300 Work Phone: Start: 10-04-2021 ambulatory Riri Matthew MD Work Phone: Urology Start: 09-29-2021 ambulatory Marin ortiz MD Work Phone: Urology Comment on above: Question regarding U S ABD RT UPPER QUADRANT Start: 09-29-2021 Patient encounter procedure Marin Gutierrez MD Work Phone: Urology Start: 09-28-2021 ambulatory Bárbara Escudero RN [employer]BL[employer] Comment on above: UTI Start: 09-28-2021 Patient encounter procedure Marin Gutierrez MD Work Phone: Urology Start: 09-26-2021 End: 09-26-2021 Patient encounter procedure Marin Gutierrez MD Work Phone: Urology Comment on above: Kidney stones (Prima ry Dx) Start: 09-25-2021 ambulatory Adriana Hernandez Work Phone: Pulmonary Medicine Comment on above: Make apt Start: 08-02-2021 ambulatory KIMBERLY CASON Fa cility:UNKNOWN Start: 03-04-2021 End: 03-04-2021 Subsequent hospital visit by physician [facility] 1 Radiology Comment on above: Renal calculus, righ t [N20.0] Start: 01-20-2021 ECHO, Provider: CONC ORD ECHOCARDIOGRAM 1,CHCECHO 1, Status: Pen, Time: 8:00 AM Francisco Cason Work Phone: JG[facility] Work Phone: Start: 01-19-2021 Chart Update H [employer] Work Phone: LP-Eyvizhapqk[facility]Ahvensr Work Phone: Start: 12-09-2020 AUDIT H [employer] Work Phone: YI-Mbznhieqoh-Ncclmbv Work Phone: Start: 11-25-2020 Current tobacco non-user cad cap copd pv dm H J [employer] Work Phone: YR-Wfxzdqbkma-Ekrrkcf [facility]VI Work Phone: Start: 10-08-2020 End: 10-08-2020 Subsequent hospital visit by physician Barb [facility] Work Phone: Radiology Comment on above: Cough [R05] Start: 04-13-2015 Physical examination ELIZABETH HOOVER Other [facility]. Other DO Yemi Toribio DO [facility] Procedures Date Procedure Procedure Detail Performing Clinician Start: 12-15-2024 X-ray of ankle, three or more views Dwayne Stephens MD Work Phone: Start: 12-15-2024 X-ray of foot, three or more views Baltazar Stephens MD Work Phone: Start: 12-04-2024 Plain X-ray of tibia and fibula Dwayne henderson MD Work Phone: Start: 12-04-2024 X-ray of ankle, three or more views Dwayne Stephens MD Work Phone: Start: 12-04-2024 X-ray of foot, three or more views Baltazar Stephens MD Work Phone: Start: 11-30-2024 Plain x-ray of wrist Dwayne Stephens MD Work Phone: Start: 11-04-2024 X-ray of lumbosacral spine Dwayne Hernandez Work Phone: Start: 10-23-2024 Urnls dip stick/tablet [...] Work Phone: Start: 09-04-2024 Plain chest X-ray Dawyne Stephens MD Work Phone: Start: 09-04-2024 Urnls [...] contrast Dwayne Stephens MD Work Phone: Start: 06-07-2024 Urine culture Dwayne Stephens MD Work Phone: Start: 06-03-2024 Pelvic echography Dwayne Stephens MD Work Phone: Start: 05-09-2024 CT angiography of chest with contrast Dwayne Stephens MD Work Phone: Start: 10-09-2023 STREP A MOLECULAR (POC) [facility] Provider Start: 09-22-2023 Radex fingr minimum 2 views Justyn bassett FUEL HOUSE ATTENDANT.MECHANICAL INSPECTOR Work Phone: Start: 08-31-2023 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 OR EVENT 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 LUL THOMAS Start: 07-03-2023 PNEUMOCOCCAL CONJUGATE VACCINE 20-VALENT IM BLAYNE WEEKS Start: 06-07-2023 Lipid 1996 panel - Serum or Plasma No Pc p FUEL HOUSE ATTENDANT Start: 06-06-2023 Noninvasive ear/pulse oximetry multiple deter Melinda Coello FUEL HOUSE ATTENDANT.MECHANICAL INSPECTOR Work Phone: Start: 05-29-2023 ECG 12-LEAD MAIN [...] stick/tablet rgnt auto w/o microscopy Mercedes Azul APRN-MECHANICAL INSPECTOR Work Phone: Start: 05-14-2023 Ct abdomen & pelvis w/o contrast material Mercedes Azul FU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 Work Phone: Start: 05-14-2023 Influenza virus A and B RNA [Identifier] in Unspecified specimen by ANDRY with probe detection Mercedes Azul FUEL HOUSE ATTENDANT-[facility] Work Phone: Start: 05-14-2023 Respiratory syncytial virus RNA [Presence] in Respiratory specimen by ANDRY with probe detection [facility] Work Phone: Start: 05-14-2023 SARS-CoV-2 (COVID-19) RNA [Presence] in Respiratory specimen by ANDRY with probe detection Mercedes Azul [facility] Work Phone: Start: 05-14-2023 Radiologic exam chest single view Ellie Azul [facility] Work Phone: Start: 05-14-2023 Comprehensive metabolic panel Mercedes Azul [facility] Work Phone: Start: 05-04-2023 Colonoscopy Janny Bai MD Work Phone: Start: 04-27-2023 Esophagogastroduodenoscopy NA KOUSA Start: 04-27-2023 Colonoscopy NA KOUSA Start: [...] Work Phone: Start: 04-03-2012 Colonoscopy Bárbara Chan APRN.MECHANICAL INSPECTOR Work Phone: Start: 02-15-2012 Lipid 1996 panel - Serum or Plasma 1 Plan of Treatment Date Care Activity Detail Author Start: 05-04-2033 Screening for malignant neoplasm of colon [facility] Start: 03-21-2032 DTaP/Tdap/Td Vaccines (3 - Td or Tdap) DTaP/Tdap/Td Vaccines (3 - Td or Tdap) [facility] Start: 03-21-2032 Urine microalbumin profile DTaP,Tdap,Td Vaccine (3 - Td or Tdap) [facility] Start: 06-07-2028 Lipid panel Lipid Screening [facility] Start: 03-26-2028 Lipid 1996 panel - Serum or Plasma Lipid Screening [facility] Start: 03-26-2028 Lipid panel Lipid Panel [facility] Start: 2026 Zoster Vaccines (1 of 2) Zoster Vaccines (1 of 2) [facility] Start: 08-17-2026 Diabetes Screening Diabetes Screening [facility] Start: 06-06-2026 Diabetes Screening Diabetes Screening [facility] Start: 11-25-2025 Lipid panel Lipid Panel [facility] Start: 03-02-2025 Influenza vaccination Influenza Vaccine (#1) [facility] Start: 12-02-2024 Evaluation of diagnostic study results [facility] Start: 11-30-2024 [facility] Start: 11-04-2024 Patient referral [employer] Work Phone: Start: 10-23-2024 Enteric precautions [facility] Start: 10-01-2024 [facility] Start: 09-25-2024 [facility] Start: 09-04-2024 [facility] Start: 08-11-2024 [facility] Start: 08-11-2024 Us pelvic nonobstetric real-time image complete US EXAM PELVIC COMPLETE [facility] Start: 08-11-2024 Us transvaginal TRANSVAGINAL US NON-OB [facility] Start: 07-30-2024 [facility] Start: 06-28-2024 Patient discharge [facility] Start: 06-28-2024 Oxygen therapy [facility] Start: 06-28-2024 Admission procedure [facility] Start: 06-28-2024 Ambulation without limitation [facility] Start: 06-28-2024 Assessment of risk of venous thromboembolism [facility] Start: 06-28-2024 Insertion of catheter into peripheral vein [facility] Start: 06-28-2024 Measuring intake and output [facility] Start: 06-28-2024 Providing care according to standard [facility] Start: 06-28-2024 End: 06-28-2024 [facility] Start: 06-28-2024 Following clinical pathway protocol [facility] Start: 06-28-2024 Hospital admission, emergency, from emergency room, medical nature [facility] Start: 06-19-2024 Patient discharge [facility] Start: 06-19-2024 Anes lithotrp xtrcorp shock wave w/o water bath ANESTH KIDNEY STONE DESTRUCT [facility] Start: 06-19-2024 Lithotripsy xtrcorp shock wave FRAGMENTING OF KIDNEY STONE [facility] Start: 06-09-2024 Patient discharge [facility] Start: 06-07-2024 Oxygen therapy [facility] Start: 06-07-2024 Admission procedure [facility] Start: 06-07-2024 Ambulation without limitation [facility] Start: 06-07-2024 Assessment of risk of venous thromboembolism [facility] Start: 06-07-2024 Catheterization of vein [facility] Start: 06-07-2024 Insertion of catheter into peripheral vein [facility] Start: 06-07-2024 Measuring intake and output [facility] Start: 06-07-2024 Providing care according to standard [facility] Start: 06-07-2024 End: 06-07-2024 [facility] Start: 06-07-2024 Following clinical pathway protocol [facility] Start: 06-07-2024 Admission procedure [facility] Start: 06-07-2024 Hospital admission, emergency, from emergency room, medical nature [facility] Start: 06-07-2024 Anes transurethral w/urethrocystoscopy nos ANESTH BLADDER SURGERY [facility] Start: 06-07-2024 Cysto w/insert ureteral stent CYSTOSCOPY AND TREATMENT [facility] Start: 05-09-2024 [facility] Start: 05-08-2024 Egd transoral biopsy single/multiple EGD BIOPSY SINGLE/MULTIPLE [facility] Start: 05-08-2024 Patient discharge [facility] Start: 04-27-2024 Screening for malignant neoplasm of colon [facility] Start: 03-26-2024 Diabetes mellitus screening Diabetes Screening [facility] Start: 03-21-2024 Yearly Adult Physical Yearly Adult Physical [facility] Start: 03-02-2024 Covid-19 Vaccine ( season) Covid-19 Vaccine ( season) [facility] Start: 03-02-2024 Covid-19 Vaccine ( season) Covid-19 Vaccine ( season) [facility] Start: 03-02-2024 Influenza vaccination Influenza Vaccine (#1) [facility] Start: 12-03-2023 End: 12-03-2023 Patient encounter procedure 12/03/2023 9:00 AM EDT Office Visit Cardiology [address] [place] [address] Blayne Guerra MD [address] [place] [address] Elevated BP Cardiology Comment on above: Elevated BP Start: 12-03-2023 End: 12-03-2023 ambulatory 12/03/2023 8:00 AM EDT Results Only Cardiology [address] [place] [address] Elevated BP Cardiology Comment on above: Elevated BP Start: 11-21-2023 End: 11-21-2023 Patient encounter procedure 11/21/2023 10:00 AM EDT Office Visit OB/Gynecology [address] [address] Suzanne Gallardo APRN.CN [address] [place] [address] annual OB/Gynecology Comment on above: annual Start: 10-22-2023 End: 10-22-2023 Patient encounter procedure 10/22/2023 1:40 PM EDT Office Visit [facility] [address] [phone] [place] [address] [address] [facility] Start: 10-10-2023 End: 10-10-2023 Patient encounter procedure 10/10/2023 1:40 PM EDT Office Visit [facility] [address] [place] [phone] Lul Chin, FU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 [address] [address] [facility] [place], [place] [phone] [facility] Start: 10-08-2023 End: 10-08-2023 Patient encounter procedure 10/08/2023 1:40 PM EDT Office Visit [facility] [address] [place] [phone] Lul Chin, FU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 [address] [place] [facility] [place], [place] [phone] [facility] Office Building Start: 10-04-2023 End: 10-04-2023 Patient encounter procedure 10/04/2023 2:00 PM EDT Office Visit [facility] [address] [facility] [address] [place] [phone] Blayne Weeks MD 8055 [facility] [address] [place], [place] [phone] [facility] Start: 08-20-2023 End: 08-20-2023 Patient encounter procedure 08/20/2023 1:30 PM EST Office Visit [facility] [address] [facility] [address] [place] [phone] [place] [address] [address] [facility] [place], [place] [phone] [facility] Start: 08-13-2023 End: 08-13-2023 Patient encounter procedure 08/13/2023 1:30 PM EST Appointment [facility] [address] [place] [phone] [facility] Start: 08-06-2023 End: 08-06-2025 Holter monitor study Holter Or Event Process Owner Cardiac Services Routine Heart palpitations Expected: 08/06/2023 (Approximate), Expires: 08/06/2025 [facility] Service Area Work Phone: Comment on above: Expected: 08/06/2023 (Approximate), Expi res: 08/06/2025 Start: 07-31-2023 End: 07-31-2023 Patient encounter procedure 07/31/2023 1:30 PM EST Office Visit [facility] [address] [facility] [address] [place] [address] [place] [address] [address] [place], [place] [phone] [facility] Start: 07-05-2023 End: 07-05-2023 Patient encounter procedure 07/05/2023 9:20 AM EST Office Visit [facility] Office Building [address] [address] [place] [phone] [place] [address] [address] [facility] [place] [address] [place] [address] [facility] Start: 07-02-2023 Behavioral Health Screening Behavioral Health Screening [facility] Start: 07-02-2023 Depression Assessment Depression Assessment [facility] Start: 06-08-2023 End: 06-08-2023 Admission to same day surgery center 06/08/2023 1:00 PM EST - 06/08/2023 2:00 PM EST Surgery [facility] [place] [address] [place] [phone] [place] [address] [facility] [address], [place] [phone] RIGHT OOPHORECTOMY, SLING PLACEMENT [69229 (CPT )] [facility] [place] Comment on above: RIGHT OOPHORECTOMY, SLING [...] physician 06/08/2023 11:30 AM EST Hospital Encounter [facility] [place] [facility] [place] [address] [place] [phone] [place] [address] [facility], [address] [phone] [facility] [place] Start: 06-07-2023 End: 06-07-2023 Patient encounter procedure 06/07/2023 3:00 PM EST Office Visit [facility] [address] [facility] 1st [place] [phone] [place] [address] [place], [place] [phone] [facility] Start: 06-07-2023 End: 06-07-2023 Telemedicine consultation with patient 06/07/2023 9:20 AM EST Telemedicine [facility] [address] [phone] [place] [address] [facility], [address] [phone] [facility] Start: 05-28-2023 End: 05-28-2023 Admission to same day surgery center 05/28/2023 12:00 PM EST - 05/28/2023 1:15 PM EST Surgery [facility] [place] [address] [place] [phone] [place] [address] [facility], [address] [phone] Oophorectomy [11188 (CPT )] [facility] [place] Comment on above: Oophorectomy [41023 (CPT )] Start: 05-28-2023 End: 05-28-2023 Anesthesia consultation 05/28/2023 12:00 PM EST Anesthesia Event [facility] [place] [address] [place] [phone] Jean Schreiber DO [address] [place] [address] [phone] [facility] [place] Start: 05-28-2023 End: 05-28-2023 Oophorectomy partial/total uni/bi Oophorectomy Adnexal mass 05/28/2023 12:00 PM EST Virtual [facility] [place] Start: 05-28-2023 Subsequent hospital visit by physician 05/28/2023 10:30 AM EST Hospital Encounter [facility] [place] [address] [place] [address] [place] [address] [facility], [facility] [address] [place], [place] [phone] [facility] [place] Start: 05-22-2023 End: 05-22-2023 Patient encounter procedure 05/22/2023 8:30 AM EST Procedure Visit [facility] [address] [facility] [address] [place] [address] [facility] Start: 05-21-2023 End: 05-21-2023 Patient encounter procedure 05/21/2023 3:00 PM EST Office Visit [facility] [address] [phone] Blayne Weeks MD [address] [phone] [facility] Start: 04-05-2023 End: 10-04-2024 Colonoscopy Colonoscopy Screening Endoscopy Routine Esophageal dysphagia Colon cancer screening Expected: 04/05/2023, Expires: 10/04/2024 [facility] Work Phone: Comment on above: Expected: 04/05/2023, Expires: Start: 04-05-2023 End: 04-05-2024 Esophagogastroduodenoscopy EGD Endoscopy Routine Esophageal dysphagia Colon cancer screening Expected: 04/05/2023 (Approximate), Expires: 04/05/2024 [facility] Service Area Work Phone: Comment on above: Expected: 04/05/2023 (Approximate), Expi res: 04/05/2024 Start: 03-20-2023 End: 09-19-2024 25-hydroxyvitamin D3 [Mass/volume] in Serum or Plasma Vitamin D 25-Hydroxy,Total (for eval of Vitamin D levels) Lab Routine Encounter for annual physical exam Expected: 03/20/2023 (Approximate), Expires: 03/20/2024 [facility] Work Phone: Comment on above: Expected: 03/20/2023 (Approximate), Expi res: 03/20/2024 Start: 03-20-2023 End: 03-20-2024 Colonoscopy Colonoscopy Screening Endoscopy Routine Colon cancer screening Expected: 03/20/2023 (Approximate), Expires: 03/20/2024 [facility] Work Phone: Comment on above: Expected: 03/20/2023 (Approximate), Expi res: 03/20/2024 Start: 03-20-2023 End: 05-20-2024 DBT Breast - bilateral BI mammo bilateral screening tomosynthesis Imaging Routine Breast cancer screening by mammogram Expected: 03/20/2023, Expires: 05/20/2024 [facility] Service Area Work Phone: Comment on above: Expected: 03/20/2023, Expires: Start: 03-20-2023 End: 03-20-2024 Hemoglobin A1c/Hemoglobin.total in Blood Hemoglobin A1C Lab Routine Encounter for annual physical exam Expected: 03/20/2023 (Approximate), Expires: 03/20/2024 [facility] Work Phone: Comment on above: Expected: 03/20/2023 (Approximate), Expi res: 03/20/2024 Start: 03-20-2023 End: 03-20-2024 Hepatitis C virus Ab [Presence] in Serum Hepatitis C Antibody Lab Routine Encounter for annual physical exam Expected: 03/20/2023 (Approximate), Expires: 03/20/2024 [facility] Work Phone: Comment on above: Expected: 03/20/2023 (Approximate), Expi res: 03/20/2024 Start: 03-20-2023 End: 03-20-2024 HIV 1+2 Ab+HIV1 p24 Ag [Presence] in Serum or Plasma by Immunoassay HIV 1/2 Antigen/Antibody Screen with Reflex to Confirmation Lab Routine Encounter for annual physical exam Expected: 03/20/2023 (Approximate), Expires: 03/20/2024 [facility] Work Phone: Comment on above: Expected: 03/20/2023 (Approximate), Expi res: 03/20/2024 Start: 03-20-2023 End: 03-20-2024 Lipid 1996 panel - Serum or Plasma Lipid Panel Lab Routine Encounter for annual physical exam Expected: 03/20/2023 (Approximate), Expires: 03/20/2024 [facility] Work Phone: Comment on above: Expected: 03/20/2023 (Approximate), Expi res: 03/20/2024 Start: 03-08-2023 End: 03-08-2024 [facility] Start: 03-02-2023 Covid-19 Vaccine () Covid-19 Vaccine () [facility] Start: 03-02-2023 Influenza vaccination Influenza Vaccine (#1) [facility] Start: 08-06-2022 DIABETES SCREEN DIABETES SCREEN [facility] Start: 08-06-2022 Diabetes Screening Diabetes Screening [facility] Start: 07-02-2022 Depression Assessment Depression Assessment [facility] Start: 03-02-2022 Influenza vaccination [facility] Start: 12-05-2021 FUV, Provider: Joshua Tena, Status: Pen, Time: 8:15 AM FUV, Provider: Joshua Tena, Status: Abdulaziz, Time: 8:15 AM [facility] Work Phone: Start: 2021 COLOGUARD (FIT-DNA) COLOGUARD (FIT-DNA) [facility] Start: 2021 Colonoscopy COLONOSCOPY [facility] Start: 2021 COLORECTAL CANCER SCREENING COLORECTAL CANCER SCREENING [facility] Start: [address] COLONOGRAPHY [facility] Start: 2021 FECAL OCCULT BLOOD FECAL OCCULT BLOOD [facility] Start: 2021 Lipid 1996 panel - Serum or Plasma Lipid Screening [facility] Start: 2021 LIPID SCREEN LIPID SCREEN [facility] Start: 2021 Screening for malignant neoplasm of colon [facility] Start: 2021 SIGMOIDOSCOPY SIGMOIDOSCOPY [facility] Start: 10-28-2021 NPV, Provider: Keo Brown, Status: [...] Routine Kidney stones Expected: 09/26/2021, Expires: 11/26/2021 [facility] Work Phone: Comment on above: Expected: 09/26/2021, Expires: Start: 09-15-2021 COVID-19 VACCINE (3 - Booster for Pfizer series) COVID-19 VACCINE (3 - Booster for Pfizer series) [facility] Start: 07-02-2021 DEPRESSION ASSESSMENT DEPRESSION ASSESSMENT [facility] Start: 06-12-2021 COVID-19 VACCINE (3 - Booster for Pfizer series) COVID-19 VACCINE (3 - Booster for Pfizer series) [facility] Start: 06-12-2021 COVID-19 Vaccine (3 - Pfizer series) COVID-19 Vaccine (3 - Pfizer series) [facility] Start: 03-02-2021 Influenza vaccination INFLUENZA (#1) [facility] Start: 01-27-2021 STRESS DONA, Provider: [facility]CORD STRESS TEST,CHCSTRESS, Status: Pen, Time: 11:00 AM STRESS DONA, Provider: CONCORD STRESS TEST,CHCSTRESS, Status: Pen, Time: 11:00 AM CA-Ftsvpyxdvb-Mja grin Work Phone: Start: 01-20-2021 STRESS DONA, Provider: [facility]CORD STRESS TEST,CHCSTRESS, Status: Pen, Time: 9:00 AM STRESS DONA, Provider: CONCORD STRESS TEST,CHCSTRESS, Status: Pen, Time: 9:00 AM [employer] [facility] Work Phone: Start: 01-20-2021 ECHO, Provider: CONCORD ECHOCARDIOGRAM 1,CHCECHO 1, Status: Pen, Time: 8:00 AM ECHO, Provider: CONCORD ECHOCARDIOGRAM 1,CHCECHO 1, Status: Pen, Time: 8:00 AM [employer] Work Phone: Start: 12-30-2020 STRESS DONA, Provider: CONCORD STRESS TEST,CHCSTRESS, Status: Pen, Time: 11:00 AM STRESS DONA, Provider: CONCORD STRESS TEST,CHCSTRESS, Status: Pen, Time: 11:00 AM YD-Acyxdxeivs-Dta [facility] Work Phone: Start: 12-30-2020 ECHO, Provider: CONCORD ECHOCARDIOGRAM 1,CHCECHO 1, Status: Pen, Time: 10:00 AM ECHO, Provider: CONCORD ECHOCARDIOGRAM 1,CHCECHO 1, Status: Pen, Time: 10:00 AM UB-Ecjmigatfx-Aeq cord [facility] Work Phone: Start: 12-26-2019 Screening for malignant neoplasm of cervix Pap Smear [facility] Start: 11-02-2019 Screening for malignant neoplasm of breast [facility] Start: 03-09-2019 Screening for malignant neoplasm of breast Mammogram Screening [facility] Start: 10-14-2018 HPV TESTING HPV TESTING [facility] Start: 10-14-2018 PAP TESTING PAP TESTING [facility] Start: 10-14-2018 Screening for malignant neoplasm of cervix [facility] Start: 12-08-2016 Adult depression screening assessment DEPRESSION SCREENING [facility] Start: 2016 Mammography [facility] Start: 10-30-2013 Urine microalbumin profile DTAP,TDAP,TD (2 - Tdap) [facility] Start: 1997 Screening for malignant neoplasm of cervix HPV/Cotest [facility] Start: 11-16-1995 Hepatitis B Vaccine (1 of 3 - 19+ 3-dose series) Hepatitis B Vaccine (1 of 3 - 19+ 3-dose series) [facility] Start: 1994 ANNUAL PCP TEAM CHRONIC DISEASE VISIT ANNUAL PCP TEAM CHRONIC DISEASE VISIT [facility] Start: 1994 BP Controlled (<130/80) BP Controlled (<130/80) [facility] Start: 1994 Depression Screening Depression Screening [facility] Start: 1994 Diabetes mellitus screening Diabetes Screening [facility] Start: 1994 Hepatitis C screening Hepatitis C Screening [facility] Start: 1994 HIV SCREENING HIV SCREENING [facility] Start: 1994 HIV screening HIV Screening [facility] Start: 1982 PNEUMOCOCCAL (1 - PCV) PNEUMOCOCCAL (1 - PCV) [facility] Start: 1982 Pneumococcal vaccination Pneumococcal Vaccine (1 - PCV) [facility] Start: 1982 Pneumococcal Vaccine: Pediatrics (0 to 5 Years) and At-Risk Patients (6 to 64 Years) (1 - PCV) Pneumococcal Vaccine: Pediatrics (0 to 5 Years) and At-Risk Patients (6 to 64 Years) (1 - PCV) [facility] Start: 1977 MMR Vaccines (1 of 1 - Standard series) MMR Vaccines (1 of 1 - Standard series) [facility] Start: 1976 HEPATITIS B (1 of 3 - 3-dose series) HEPATITIS B (1 of 3 - 3-dose series) [facility] Start: 1976 Hepatitis B Vaccine (1 of 3 - 3-dose series) Hepatitis B Vaccine (1 of 3 - 3-dose series) [facility] Start: 1976 Hepatitis B Vaccines (1 of 3 - 3-dose series) Hepatitis B Vaccines (1 of 3 - 3-dose series) [facility] Start: 1976 HIV screening HIV Screening [facility] Start: 1976 Screening for malignant neoplasm of colon [facility] Ambulatory ECG [facility] End: 05-28-2023 Choriogonadotropin ( test) [Presence] in Urine POCT , urine manually resulted Point of Care Testing Routine Once (Lab) for 1 Occurrences starting 05/28/2023 until 05/28/2023 [facility] Work Phone: Comment on above: Once (Lab) for 1 Occurrences starting until 05/28/2023 End: 10-26-2022 Ct abdomen & pelvis w/o contrast material CT FLANK WO IVCON Radiology Routine Kidney stones 1 Occurrences starting 09/26/2021 until 10/26/2022 [facility] Work Phone: Comment on above: 1 Occurrences starting 09/26/2021 until 10/26/2022 End: 05-14-2023 ECG 12 lead ECG 12 lead ECG STAT Once for 1 Occurrences starting 05/14/2023 until 05/14/2023 [facility] Work Phone: Comment on above: Once for 1 Occurrences starting 05/14/20 until 05/14/2023 End: 04-25-2023 EMG(NEURO/NI) EMG(NEURO/NI) EMG Routine Cubital tunnel syndrome on left 1 Occurrences starting 04/25/2022 until 04/25/2023 [facility] Work Phone: Comment on above: 1 Occurrences starting 04/25/2022 until 04/25/2023 Glucose [Mass/volume ] in Serum or Plasma POCT Glucose Point of Care Testing - Docked Device Routine As needed (Lab) until discontinued starting 05/28/2023 [facility] Work Phone: Comment on above: As needed (Lab) until discontinued start ing 05/28/2023 End: 08-31-2023 Holter monitor study [facility] Work Phone: Comment on above: Once for 1 Occurrences starting 08/31/19 until 08/31/2023 NEUROMUSCULAR ULTRASOUND/NEUROLOGY NEUROMUSCULAR ULTRASOUND/NEUROLOGY Procedures Routine Cubital tunnel syndrome on left Laceration of left forearm, sequela Ordered: 04/25/2022 [facility] Work Phone: Comment on above: Ordered: 04/25/2022 Patient Education [facility] Work Phone: Patient referral [facility] Work Phone: End: 05-28-2023 Troponin I.cardiac panel - Serum or Plasma by High sensitivity method [facility] Work Phone: Comment on above: STAT (Lab) for 1 Occurrences starting until 05/28/2023 Once for 1 Occurrenc es starting 05/28/2023 until 05/28/2023 URINALYSIS, REFLEX MICROSCOPIC U RINALYSIS, REFLEX MICROSCOPIC Lab Routine Screening for genitourinary condition Ordered: 10/04/2021 [facility] Work Phone: Comment on above: Ordered: 10/04/2021 [facility] Immunizations Immunization Date Immunization Notes Care Provider Rashid mccartney 04-07-2024 influenza virus vaccine, unspecified formulation Deejay Frances APRN.CNP Work Phone: [facility] 07-03-2023 Pneumococcal conjugate vaccine, 20-valent (PREVNAR 20) Blayne Weeks MD Work Phone: [facility] Work Phone: 03-11-2023 influenza, injectable, quadrivalent, preservative free Haihunteram Kousa Other Phone: [facility] 03-11-2023 influenza virus vaccine, unspecified formulation [place] [place] Work Phone: [facility] 03-21-2022 influenza, injectable, quadrivalent, preservative free H J Kousa Work Phone: [facility] Work Phone: 03-21-2022 tetanus toxoid, reduced diphtheria toxoid, and acellular pertussis vaccine, adsorbed AIDAN HOFIUS Other [facility] [employer] Other 03-21-2022 influenza, injectable, quadrivalent, contains preservative AIDAN HOFIUS Other [facility] [employer] Other 03-21-2022 influenza virus vaccine, unspecified formulation [address] 04-17-2021 Pfizer-BioNTech COVID-19 Vacc 30 MCG/0.3ML Intramuscular Suspension H J Kousa Work Phone: [facility] Work Phone: 03-27-2021 Pfizer-BioNTech COVID-19 Vacc 30 MCG/0.3ML Intramuscular Suspension H J Kousa Work Phone: [facility] Work Phone: 06-19-2019 influenza, injectable, quadrivalent, contains preservative H J Kousa Work Phone: [facility] 04-13-2015 influenza, injectable, quadrivalent, contains preservative H J Kousa Work Phone: [facility] Work Phone: 04-28-2013 influenza virus vaccine, unspecified formulation Adriana Martinez MD Work Phone: [facility] 04-01-2013 Influenza virus vaccine Dwayne Stephens MD Work Phone: [facility] 04-12-2012 influenza virus vaccine, unspecified formulation Adriana Martinez MD Work Phone: [facility] Work Phone: 03-02-2010 influenza virus vaccine, unspecified formulation Adriana Martinez MD Work Phone: [facility] 10-31-2003 diphtheria and tetanus toxoids, adsorbed for pediatric use Adriana Martinez MD Work Phone: [facility] Work Phone: NEGATED: Highlighted row has not occurred! 2 tetanus toxoid, reduced diphtheria toxoid, and acellular pertussis vaccine, adsorbed; Translations: [DIPH/PERTUSS(ACELL )/TET (TDAP)] Patient Objection DO Yemi Toribio DO [facility] [place] Payers Date Payer Category Payer Unknown [id number] 2024 Unknown [id number] 2024 Self-pay [id number] 2014 Medicaid [facility] MEDICAID [id number] 2014-Present [phone] [address] [place] [address] Medicaid [id number]. [id number] 2014 Medicaid [id number]. 1.13.159.2.7.3. [id number] 2014 Unknown 2014 Unknown [id number] 1976 Unknown [id number] 2.16.840.1.871111.3.579.2.69 1976 Unknown [id number] 2.16.840.1.746157.3.579.2.69 1976 Unknown [id number] 2.16.840.1.959286.3.579.2. 1976 Unknown [id number] 2.16.840.1.411565.3.579.2.356 1976 Unknown [id number] 2.16.840.1.646510.3.579.2.356 1976 Unknown [id number] 2.16.840.1.299235.3.579.2.1244 1976 Unknown [id number] 2.16.840.1.565962.3.579.2.1244 1976 Unknown [id number] 2.16.840.1.032901.3.579.2.356 1976 Unknown [id number] 2.16.840.1.899879.3.579.2.356 1976 Unknown [id number] 2.16.840.1.064869.3.579.2.1242 1976 Unknown [id number] 2.16.840.1.596576.3.579.2.1243 1976 Unknown [id number] 2..840.1.766663.3.579.2.1243 1976 Unknown [id number] 2.16.840.1.998048.3.579.2.1243 1976 Unknown [id number] 2..840.1.630178.3.579.2.1243 1976 Unknown [id number] 2.840.1.607366.3.579.2.1243 1976 Unknown [id number] 2.840.1.839908.3.579.2.1243 1976 Unknown [id number] 2.840.1.826468.3.579.2.1241 1976 Unknown [id number] 2.840.1.702564.3.579.2.1241 1976 Unknown [id number] 2.840.1.978857.3.579.2.1241 1976 Unknown [id number] 2..840.1.145086.3.579.2.627 Medicaid [id number] 2.840.1.702223.19 Unknown [id number] 2840.1.791324.3.579.2.462 Unknown [id number] 2.16840.1.862800.3.579.2.462 Unknown [id number] 2.16.840.1.502928.3.579.2.462 Unknown [id number] 2.16.840.1.947074.3.579.2.462 Unknown [id number] 2.16.840.1.622846.3.579.2.462 Unknown [id number] 2.16.840.1.942263.3.579.2.462 Unknown [id number] 2.16.840.1.793520.3.579.2.462 Unknown [id number] 2.16840.1.399843.3.579.2.462 Unknown [id number] 2.16.840.1.313986.3.579.2.462 Unknown [id number] 2.16840.1.247204.3.579.2.462 Unknown [id number] 2.16840.1.319277.3.579.2.462 Unknown [id number] 2.840.1.144879.3.579.2.462 Unknown [id number] 2.840.1.904796.3.579.2.462 Unknown [id number] 2.840.1.877280.3.579.2.462 Unknown [id number] 2.840.1.729484.3.579.2.462 Unknown [id number] 2.840.1.931880.3.579.2.462 Unknown [id number] 2.840.1.961553.3.579.2.462 Unknown [id number] 2.840.1.491521.3.579.2.462 Unknown [id number] 2.840.1.215453.3.579.2.462 Unknown [id number] 2.840.1.102060.3.579.2.462 Unknown [id number] 2.840.1.664656.3.579.2.462 Unknown [id number] 2.16840.1.528514.3.579.2.462 Unknown [id number] 2.16840.1.271544.3.579.2.462 Unknown [id number] 2.16840.1.441848.3.579.2.462 Unknown [id number] 2.840.1.993387.3.579.2.462 Unknown [id number] 2.16.840.1.003973.3.579.2.462 Unknown [id number] 2.16.840.1.462589.3.579.2.462 Unknown [id number] 2.16.840.1.286245.3.579.2.462 Unknown [id number] 2.16.840.1.846630.3.579.2.462 Unknown [id number] 2.16.840.1.837690.3.579.2.462 Unknown [id number] 2.16.840.1.643494.3.579.2.462 Unknown [id number] 2.16.840.1.433277.3.579.2.462 Unknown [id number] 2.840.1.742812.3.579.2.462 Unknown [id number] 2.840.1.734383.3.579.2.462 Unknown [id number] 2.840.1.541725.3.579.2.462 Unknown [id number] 2.840.1.910233.3.579.2.462 Unknown [id number] 2.16840.1.805198.3.579.2.462 Unknown [id number] 2.840.1.439292.3.579.2.462 Unknown [id number] 2.16.840.1.462245.3.579.2.462 Unknown [id number] 2.16.840.1.922235.3.579.2.462 Unknown [id number] 2.16.840.1.199576.3.579.2.462 Unknown [id number] 2.16.840.1.634118.3.579.2.462 Unknown [id number] 2..840.1.810116.3.579.2.462 Unknown [id number] 2.16.840.1.005080.3.579.2.462 Unknown [id number] 2.16.840.1.884744.3.579.2.462 Unknown [id number] 2.16.840.1.071767.3.579.2.462 Unknown [id number] 2.16.840.1.997683.3.579.2.462 Social History Date Type Detail Facility Start: 03-20-2023 End: 05-22-2024 Never a smoker Never a smoker [facility] Work Phone: Comment on above: 2 cups per day; Start: 12-19-2013 End: 09-22-2023 Tobacco smoking status NHIS Never smoked tobacco [facility] Start: 12-19-2013 End: 09-22-2023 Tobacco use and exposure Smokeless tobacco non-user [facility] Start: 04-04-2021 End: 07-18-2024 Alcohol intake Current drinker of alcohol (finding) [facility] Start: 07-24-2019 History SDOH Alcohol Frequency 99 [facility] Start: 07-24-2019 History SDOH Alcohol Comment very rare- maybe 2x/ year [facility] Start: 1975 Sex Assigned At Not on file [facility] Start: 09-08-2020 End: 08-31-2023 Exposure to SARS-CoV-2 (event) Not sure [facility] Start: 03-20-2023 End: 05-22-2024 Sex Assigned At [facility] [place] Tobacco smoking consumption unknown [facility] Start: 03-20-2023 End: 08-06-2023 Alcohol intake Lifetime non-drinker (finding) [facility] Work Phone: Frequency of Alcohol Consumption Monthly or less [facility] Start: 04-17-2023 End: 04-27-2023 Exposure to SARS-CoV-2 (event) Unable to assess [facility] Start: 05-28-2023 Alcohol Comment onoce every co uple months [facility] Work Phone: Start: 08-06-2023 Alcohol Comment once every cou ple months [facility] Work Phone: Start: 2023 None None [facility] Start: 03-13-2014 With Family With Family [facility] Start: 03-10-2015 Non-smoker Non-smoker [facility] Start: 09-04-2024 End: 10-23-2024 Sex Female (finding) [facility] Start: 1975 Sex Assigned At Female W [facility] Tobacco smoking status [facility] NEGATED: Highlighted rowStart: NINF History of tobacco use Passive smoker [facility] Work Phone: NEGATED: Highlighted row Not [facility] Medical Equipment Procedure Code Equipment Code Equipment Origin al Text Equipment Identifier Dates Cystoscopy, with retrograde pyelogram and ureteral stent insertion ([id number]) Polymeric ureteral stent ([id number] FDA Start: 06-09-2024 Goals Date Patient Goal Desired Activity /State Functional Status Date Assessment Result Facility 06-28-2024 Functional status Ambulates [facility] Work Phone: 06-09-2024 Functional status Bathroom Privilege [facility] Work Phone: 08-18-2023 Are you deaf, or do you have serious difficulty hearing No 08/18/2023 3:20 PM Jayme Villarreal RN No [facility] 08-18-2023 Are you blind, or do you have serious difficulty seeing, even when wearing glasses No 08/18/2023 3:20 PM Jayme Villarreal RN No [facility] 08-18-2023 Do you have serious difficulty walking or climbing stairs No 08/18/2023 3:20 PM Jayme Villarreal RN No [facility] 08-18-2023 Do you have difficul ty dressing or bathing No 08/18/2023 3:20 PM Jayme Villarreal RN No [facility] 08-18-2023 Because of a physica l, mental, or emotional condition, do you have difficulty doing errands alone such as visiting a physician's office or shopping No 08/18/2023 3:20 PM Jayme Villarreal RN No [facility] Functional observable [facility] Mental Status Date Assessment Result Facility 09-04-2024 Cognitive function Level Of Cons ciousness Awake;Alert;Appropriate;Fol lows Commands [facility] Work Phone: 08-11-2024 Cognitive function Level Of Cons ciousness Awake;Alert;Appropriate;Fol lows Commands [facility] Work Phone: 06-28-2024 Cognitive function Voice/Name [facility] Work Phone: 06-28-2024 Cognitive function Appropriate;Cooperativ e [facility] Work Phone: 06-19-2024 Cognitive function Level Of Cons ciousness Awake;Drowsy [facility] Work Phone: 06-19-2024 Cognitive function Voice/Name [facility] Work Phone: 06-09-2024 Cognitive function Voice/Name [facility] Work Phone: 05-08-2024 Cognitive function Voice/Name [facility] Work Phone: 08-18-2023 Because of a physica l, mental, or emotional condition, do you have serious difficulty concentrating, remembering, or making decisions No 08/18/2023 3:20 PM Jayme Villarreal RN No [facility] 03-13-2023 Cognitive functi ons [id number] [facility] Clinical Notes 03-17-2015 to 01-27-2025 Mj Haddad PA - 01/27/2025 10:53 AM EDT Note Date & Type Note Facility 01-27-2025 Note HNO ID: [id number] Author: MJ HADDAD PA Service: ? Author Type: Physician Transformer Assembly Supervisor Type: Progress Notes Filed: 01/27/2025 10:53 Note Text: [facility] Madelin Rios is a 49 year old female. Patient presents with: Cough: Congestion, right ear pain x 2 weeks HPI Congestion and Right Ear Pain: - Persistent congestion and right ear pain x2 weeks. - Previously treated with doxycycline and prednisone for one week on 01/06 with no improvement. - Denies fevers. - Unable to take many OTC medications due to asthma. - Using albuterol and breathing treatments with minimal relief. - Denies wheezing. Review of Systems Constitutional: (-) fever Ears/Nose/Mouth/Throat: (+) nasal congestion, (+) right ear pain, (+) facial pressure Objective BP 120/80 Pulse 85 Temp 36.3 ?C (97.4 ?F) Resp 19 Wt 87 kg (191 lb 12.8 oz) LMP 07/24/2016 (Approximate) SpO2 98% BMI 32.92 kg/m? Physical Exam Vitals and nursing note reviewed. Constitutional: General: She is not in acute distress. Appearance: Normal appearance. She is not toxic-appearing. HENT: Right Ear: Ear canal normal. A middle ear effusion is present. Left Ear: Ear canal normal. A middle ear effusion is present. Nose: Congestion present. Right Sinus: Maxillary sinus tenderness present. Left Sinus: Maxillary sinus tenderness present. Mouth/Throat: Mouth: Mucous membranes are moist. Pharynx: No oropharyngeal exudate or posterior oropharyngeal erythema. Eyes: Conjunctiva/sclera: Conjunctivae normal. Cardiovascular: Rate and Rhythm: Normal rate and regular rhythm. Pulmonary: Effort: Pulmonary effort is normal. Breath sounds: Normal breath sounds. Neurological: Mental Status: She is alert. General: No acute distress. HEENT: Mild sinus tenderness; fluid behind tympanic membranes, no signs of infection. Resp: Lungs clear to auscultation, no wheezing. { 1. Maxillary sinusitis, unspecified chronicity (J32.0) - Persistent congestion and right ear pain since last visit a couple of weeks ago; no improvement with prior doxycycline and prednisone. - No fevers reported; unable to take most OTC medications due to asthma. - Exam: mild sinus tenderness, fluid in ears without signs of infection; lungs clear. - Start azithromycin (Z-Artur). - Start Tessalon Perles for cough. - Start Flonase nasal spray; prescription sent. - Continue current inhalers. - Advised to follow up with primary care provider if symptoms do not improve. and Recording using ambient AI software for draft documentation of the visit was discussed with the patient/authorized in home sales representative; all questions welcomed and answered. Patient/authorized in home sales representative agreed to proceed Diagnosis and treatment plan were discussed and questions were answered to the patient's satisfaction. Pt acknowledged understanding of concepts and follow up plan. Specific signs and symptoms that would indicate the need for higher level of care were discussed in detail warranting prompt ER evaluation. History and Record Review External record(s) reviewed: prior outpatient record. Disposition The patient was discharged. Procedures [facility] 01-27-2025 History of Present illness Narrative [facility] Subjective Damari Rios is a 49 year old female. Patient presents with: Cough: Congestion, right ear pain x 2 weeks HPI Congestion and Right Ear Pain: - Persistent congestion and right ear pain x2 weeks. - Previously treated with doxycycline and prednisone for one week on 01/06 with no improvement. - Denies fevers. - Unable to take many OTC medications due to asthma. - Using albuterol and breathing treatments with minimal relief. - Denies wheezing. Review of Systems Constitutional: (-) fever Ears/Nose/Mouth/Throat: (+) nasal congestion, (+) right ear pain, (+) facial pressure Objective BP 120/80 Pulse 85 Temp 36.3 C (97.4 F) Resp 19 Wt 87 kg (191 lb 12.8 oz) LMP 07/24/2016 (Approximate) SpO2 98% BMI 32.92 kg/m Physical Exam Vitals and nursing note reviewed. Constitutional: General: She is not in acute distress. Appearance: Normal appearance. She is not toxic-appearing. HENT: Right Ear: Ear canal normal. A middle ear effusion is present. Left Ear: Ear canal normal. A middle ear effusion is present. Nose: Congestion present. Right Sinus: Maxillary sinus tenderness present. Left Sinus: Maxillary sinus tenderness present. Mouth/Throat: Mouth: Mucous membranes are moist. Pharynx: No oropharyngeal exudate or posterior oropharyngeal erythema. Eyes: Conjunctiva/sclera: Conjunctivae normal. Cardiovascular: Rate and Rhythm: Normal rate and regular rhythm. Pulmonary: Effort: Pulmonary effort is normal. Breath sounds: Normal breath sounds. Neurological: Mental Status: She is alert. General: No acute distress. HEENT: Mild sinus tenderness; fluid behind tympanic membranes, no signs of infection. Resp: Lungs clear to auscultation, no wheezing. { 1. Maxillary sinusitis, unspecified chronicity (J32.0) - Persistent congestion and right ear pain since last visit a couple of weeks ago; no improvement with prior doxycycline and prednisone. - No fevers reported; unable to take most OTC medications due to asthma. - Exam: mild sinus tenderness, fluid in ears without signs of infection; lungs clear. - Start azithromycin (Z-Artur). - Start Tessalon Perles for cough. - Start Flonase nasal spray; prescription sent. - Continue current inhalers. - Advised to follow up with primary care provider if symptoms do not improve. and Recording using Peer60 software for draft documentation of the visit was discussed with the patient/authorized in home sales representative; all questions welcomed and answered. Patient/authorized in home sales representative agreed to proceed Diagnosis and treatment plan were discussed and questions were answered to the patient's satisfaction. Pt acknowledged understanding of concepts and follow up plan. Specific signs and symptoms that would indicate the need for higher level of care were discussed in detail warranting prompt ER evaluation. History and Record Review External record(s) reviewed: prior outpatient record. Disposition The patient was discharged. Procedures documented in this encounter [facility] 01-20-2025 Progress note Note Date/Time January 20, 2025 3:56pm [facility] [address] [place] [address] OFFICE VISIT Date of Service: 01/20/25 MR#: [id number] Acct: [id number] Name: DAMARI RIOS Rep #: [id number] : 1975 Provider: HUSSEIN Bae Age/Sex: 49/F Location: [facility] [place] [place] Status: Signed Intake Vital Signs 12/04/24 06:17 Height 5 ft 5 in Intake Visit Reasons: 1 Month f/u Chief Complaint: abd pain Allergies Penicillins Allergy (Verified 12/04/24 06:16) Anaphylaxis naproxen (From Naprosyn) Adverse Reaction (Unknown, Verified 12/04/24 06:16) Nausea codeine Adverse Reaction (Verified 12/04/24 06:16) Nausea Patient : No Have you fallen in the past year?: No Nurse's Note: OV 01/20/25 Pt here for a f/u and reports nausea, vomiting, diarrhea, and abdominal pain. [facility] Medical History (Updated 12/12/24 @ 00:01 by Rama Braswell) Peripheral vascular disease Urinary tract infection Flank pain Anemia Easy bruising Restless legs History of stress test Wears glasses Post-menopausal Pulmonary embolism History of IBS Gastric reflux Non-smoker Asthma Cardiology follow-up encounter Hypertension Surgical History History of cystoscopy History of cardiac catheterization History of laparoscopic cholecystectomy History of bladder surgery History of hysterectomy Family History Brother Asthma Grandmother Diabetes Myocardial infarction Father Hypertension Mother Uterine cancer Social History housing: house Smoking Status: Never smoker alcohol intake: never substance use type: does not use caffeine: Yes Female Reproductive History Menstrual Ab spontaneous: 1 HPI HPI Chief Complaint: abd pain Details: DAMARI RIOS, is a 49 F who presents to the office today for f/u BGI established in Apr 2024 with abd pain nausea and bloating after eating over hte past year. Has been seen in the ED on a few occasion with normal work up. EGD and colonposcy about a year ago with no abnormalities. She is s/p cholecystectomy. Biochemical work up 03.24.24; CBC, CMP wnl CT abdomen/pelvis 03.24.24;1. Stable nonobstructing right kidney stones 2. Prior supracervical hysterectomy. No interval change in small simple cyst of the left ovary measuring 3.84 cm in diameter that does not require any additional imaging. Small parenchymal calcification of the left ovary unchanged. GES 10.17.24; normal EGD 24; - Normal esophagus. - Bilious gastric fluid. - Bile gastritis. Biopsied. - Erythematous duodenopathy. Biopsied. [facility] ED 10.23.24 with abd pain and vomiting. Work up showing hypokalemia but no other abnormalities. CT abd/pelvis 10.23.24Mild hepatomegaly and diffuse fatty infiltration of the liver. Status post cholecystectomy. OV 5.15.25 Pt continues to have daily nausea, early satiety, and constipation alternating with diarrhea. She continues to take Pantoprazole 40 mg daily and zofran PRN. She will have days with urgent diarrhea after eating and other days with no bm. When she is constipated she will have small hard stools daily. She has diffuse abd cramping which is worse when she is constipated. She has been having issues with kidney stones and had to have some stents placed. At her lasturology appointment she had no further stones or issues. Increase PPI to 40 mg BID and add fiber OV 6.17.25 Pt continues to have abd pain, nausea, vomiting and diarrhea. Diarrhea is after each meal. She is nauseous all the time but will only vomitinga few times per week. She continues with PPI. Start Colestipol 1 gram daily. Consider Reglan OV 7.22.25 Pt continues to have diffuse abd pain, bloating and n/v. She did not notice much of a difference with the colestipol. ROS Const Constitutional: Positive for headache(s) and weight change; No fatigue or fever(s) ENT ENT: Positive for headache(s); No difficulty swallowing Gastro GI: Positive for abdominal pain, diarrhea, heartburn, nausea/dyspepsia and vomiting; No belching, bloating, change in bowel habits, change in stool character, coffeeground emesis, constipation, cramping, difficulty swallowing, feeling full early, excessive flatus, incontinent of stools, Vomiting blood/hematemesis, Blood in stool, loose stools, Black,tarry stools, pain with swallowing or other Musc Musculoskeletal: Positive for back pain; No joint pain Skin Skin: No yellowing of the eye or itchy eyes Neuro Neurology: Positive for headache(s) Psych Psychiatric: No anxiety and No depression Endo Endocrine: Positive for weight change; No fatigue Aller/Imm Allergy/Immunologic: No itchy eyes Corbin/Lymp Hematologic/Lymphatic: Positive for easy bruising; No easy bleeding Exam Const General: cooperative, healthy appearing and comfortable Orientation: alert [facility] Head: normal to inspection Eyes General: appearance normal, both eyes and all related structures Neck Neck: normal visual inspection Chest Chest palpation & inspection: normal inspection of the chest Resp Effort & Inspection: normal respiratory effort Cardio Rate: regular rate Rhythm: regular rhythm GI Inspection: normal to inspection Auscultation: normal bowel sounds Palpation: soft and nontender Assessment and Plan Assessment and Plan (1) Gastritis: Status: Acute Plan: Woodrow ia 49 yo female pt with PMHx of bile gastritis s/p cholecystectomy here today for continued issues with abd pain, n/v and bloating. Pt was stated on Colestipol 1 gram daily which did not help with her symptoms. I have recommend increasing to 2 grams daily. she continues with Pantoprazole 40 mg BID. I have provided samples of voquezna for her to trail. If she has relief of her symptomswill prescribe. Discussed treatment for upper limit of normal GES with Reglan however she declines due to side effects. SHe ill undergo repeat EGD to assess her upper GI tract. -Increase colestipol to 2 gram daily -Trial Voquezna -EGD - (2) IBS (irritable bowel syndrome): Status: Acute Coding Level of Care Code Off vis,est,level 3 Diagnoses Gastritis K29.70 IBS (irritable bowel syndrome) K58.9 Clinical Quality Measures Falls Risk Screening/Assistive Devices Have you fallen in the past year?: No 01/20/25 2652 <Electronically signed by Uma SAVAGE> Date _ Uma SAVAGE [facility] Signature: Date (if applicable) CC: ~ [facility] Work Phone: [phone] 273-420607-22-2025 Progress [facility] [address] [place] [address] OFFICE VISIT Date of Service: 01/20/25 MR#: [id number] Acct: [id number] Name: DAMARI RIOS Rep #: [id number] : 1975 Provider: HUSSEIN Bae Age/Sex: 49/F Location: [facility] [place] Status: Signed Intake Vital Signs 12/04/24 06:17 Height 5 ft 5 in Intake Visit Reasons: 1 Month f/u Chief Complaint: abd pain Allergies Penicillins Allergy (Verified 12/04/24 06:16) Anaphylaxis naproxen (From Naprosyn) Adverse Reaction (Unknown, Verified 12/04/24 06:16) Nausea codeine Adverse Reaction (Verified 12/04/24 06:16) Nausea Patient : No Have you fallen in the past year?: No Nurse's Note: OV 01/20/25 Pt here for a f/u and reports nausea, vomiting, diarrhea, and abdominal pain. [facility] Medical History (Updated 12/12/24 @ 00:01 by Background Michaelle) Peripheral vascular disease Urinary tract infection Flank pain Anemia Easy bruising Restless legs History of stress test Wears glasses Post-menopausal Pulmonary embolism History of IBS Gastric reflux Non-smoker Asthma Cardiology follow-up encounter Hypertension Surgical History History of cystoscopy History of cardiac catheterization History of laparoscopic cholecystectomy History of bladder surgery History of hysterectomy Family History Brother Asthma Grandmother Diabetes Myocardial infarction Father Hypertension Mother Uterine cancer Social History housing: house Smoking Status: Never smoker alcohol intake: never substance use type: does not use caffeine: Yes Female Reproductive History Menstrual Ab spontaneous: 1 HPI HPI Chief Complaint: abd pain Details: DAMARI RIOS, is a 49 F who presents to the office today for f/u BGI established in Apr 2024 with abd pain nausea and bloating after eating over hte past year. Has been seen in the ED on a few occasion with normal work up. EGD and colonposcy about a year ago with no abnormalities. She is s/p cholecystectomy. Biochemical work up .; CBC, CMP wnl CT abdomen/pelvis .;1. Stable nonobstructing right kidney stones 2. Prior supracervical hysterectomy. No interval change in small simple cyst of the left ovary measuring 3.84 cm in diameter that does not require any additional imaging. Small parenchymal calcification of the left ovary unchanged. GES 10..24; normal EGD 05.08.24; - Normal esophagus. - Bilious gastric fluid. - Bile gastritis. Biopsied. - Erythematous duodenopathy. Biopsied. [facility] ED 10.23.24 with abd pain and vomiting. Work up showing hypokalemia but no other abnormalities. CT abd/pelvis 10.23.24Mild hepatomegaly and diffuse fatty infiltration of the liver. Status post cholecystectomy. OV 5.15.25 Pt continues to have daily nausea, early satiety, and constipation alternating with diarrhea. She continues to take Pantoprazole 40 mg daily and zofran PRN. She will have days with urgent diarrhea after eating and other days with no bm. When she is constipated she will have small hard stools daily. She has diffuse abd cramping which is worse when she is constipated. She has been havingissues with kidney stones and had to have some stents placed. At her lasturology appointment she had no further stones or issues. Increase PPI to 40 mg BID and add fiber OV 6.17.25 Pt continues to have abd pain, nausea, vomiting and diarrhea. Diarrhea is after each meal. She is nauseous all the time but will only vomitinga few times per week. She continues with PPI. Start Colestipol 1 gram daily. Consider Reglan OV 7..25 Pt continues to have diffuse abd pain, bloating and n/v. She did not notice much of a difference with the colestipol. ROS Const Constitutional: Positive for headache(s) and weight change; No fatigue or fever(s) ENT ENT: Positive for headache(s); No difficulty swallowing Gastro GI: Positive for abdominal pain, diarrhea, heartburn, nausea/dyspepsia and vomiting; No belching, bloating, change in bowel habits, change in stool character, coffeeground emesis, constipation, cramping, difficulty swallowing, feeling full early, excessive flatus, incontinent of stools, Vomiting blood/hematemesis, Blood in stool, loose stools, Black,tarry stools, pain with swallowing or other Musc Musculoskeletal: Positive for back pain; No joint pain Skin Skin: No yellowing of the eye or itchy eyes Neuro Neurology: Positive for headache(s) Psych Psychiatric: No anxiety and No depression Endo Endocrine: Positive for weight change; No fatigue Aller/Imm Allergy/Immunologic: No itchy eyes Corbin/Lymp Hematologic/Lymphatic: Positive for easy bruising; No easy bleeding Exam Const General: cooperative, healthy appearing and comfortable Orientation: alert [facility] Head: normal to inspection Eyes General: appearance normal, both eyes and all related structures Neck Neck: normal visual inspection Chest Chest palpation & inspection: normal inspection of the chest Resp Effort & Inspection: normal respiratory effort Cardio Rate: regular rate Rhythm: regular rhythm GI Inspection: normal to inspection Auscultation: normal bowel sounds Palpation: soft and nontender Assessment and Plan Assessment and Plan (1) Gastritis: Status: Acute Plan: Melanis ia 49 yo female pt with PMHx of bile gastritis s/p cholecystectomy here today for continuedissues with abd pain, n/v and bloating. Pt was stated on Colestipol 1 gram daily which did not helpwith her symptoms. I have recommend increasing to 2 grams daily. she continues with Pantoprazole 40mg BID. I have provided samples of voquezna for her to trail. If she has relief of her symptomswillprescribe. Discussed treatment for upper limit of normal GES with Reglan however she declines due to side effects. SHe ill undergo repeat EGD to assess her upper GI tract. -Increase colestipol to 2 gram daily -Trial Voquezna -EGD - (2) IBS (irritable bowel syndrome): Status: Acute Coding Level of Care Code Off vis,est,level 3 Diagnoses Gastritis K29.70 IBS (irritable bowel syndrome) K58.9 Clinical Quality Measures Falls Risk Screening/Assistive Devices Have you fallen in the past year?: No 01/20/25 1556 rishabh SAVAGE> Date _ Uma SAVAGE Cosigner Signature: Date (if applicable) CC: ~ [facility]07-08-2025 NoteHNO ID: [id number] Author: DEEJAY FRANCES APRN.BEN Service: ? Author Type: Nurse Practitioner Type: Progress Notes Filed: 01/06/2025 14:04 Note Text: [facility] Subjective HPI HPI Damari Rios is a 49 year old female who presents today for CC of cough, sinus pressure, ear pain. This started 1 week ago. Has tried otc medication for relief. Symptoms are worsened by nothing. Risk factors hx of asthma, has been hospitalized in past for asthma. Nonsmoker. .Patient presents with: Nasal Congestion: drainage, right ear pain x 1 week PAST MEDICAL HISTORY Diagnosis Date Abdominal pain [...] Ultram [Tramadol Hcl], and Naprosyn [Naproxen] MEDICATIONS predniSONE (DELTASONE) 20 mg tablet Take 2 tablets by mouth once daily for 5 days. Take daily with food. doxycycline monohydrate 100 mg tablet Take 1 tablet by mouth two times a day for 7 days. albuterol HFA (PROVENTIL HFA, VENTOLIN HFA) 90 mcg/actuation inhaler Inhale 2 puffs as instructed every 4 hours as needed for wheezing/shortness of breath. albuterol (PROVENTIL) 2.5 mg /3 mL (0.083 %) nebulizer solution Use 3 mL via nebulizer every 4 hours as needed for wheezing/shortness of breath. cyclobenzaprine (FLEXERIL) 5 mg tablet Take 5 [...] (DELTASONE) 10 mg tablet Take by mouth. (Patient not taking: Reported on 01/06/2025) rOPINIRole (REQUIP) 0.25 mg tablet AT BEDTIME [...] rare- maybe 2x/ year Drug use: No Review of Systems Constitutional: Negative for chills, fatigue and fever. HENT: Positive for ear pain, rhinorrhea and sore throat. Negative for ear discharge, sinus pressure and sinus pain. Eyes: Negative for discharge and redness. Respiratory: Positive for cough. Negative for shortness of breath and wheezing. Cardiov (more content not included)...[facility]07-08-2025 History of Present illness Narrative* Deejay Frances APRN.MECHANICAL INSPECTOR - 01/06/2025 1:31 PM EDT [facility] Subjective HPI HPI Damari Rios is a 49 year old female who presents today for CC of cough, sinus pressure, ear pain. This started 1 week ago. Has tried otc medication for relief. Symptoms are worsened by nothing. Risk factors hx of asthma, has been hospitalized in past for asthma. Nonsmoker. .Patient presents with: Nasal Congestion: drainage, right ear pain x 1 week PAST MEDICAL HISTORY Diagnosis Date Abdominal pain [...] Ultram [Tramadol Hcl], and Naprosyn [Naproxen] MEDICATIONS predniSONE (DELTASONE) 20 mg tablet Take 2 tablets by mouth once daily for 5 days. Take daily with food. doxycycline monohydrate 100 mg tablet Take 1 tablet by mouth two times a day for 7 days. albuterol HFA (PROVENTIL HFA, VENTOLIN HFA) 90 mcg/actuation inhaler Inhale 2 puffs as instructed every 4 hours as needed for wheezing/shortness of breath. albuterol (PROVENTIL) 2.5 mg /3 mL (0.083 %) nebulizer solution Use 3 mL via nebulizer every 4 hours as needed for wheezing/shortness of breath. cyclobenzaprine (FLEXERIL) 5 mg tablet Take 5 [...] (DELTASONE) 10 mg tablet Take by mouth. (Patient not taking: Reported on 01/06/2025) rOPINIRole (REQUIP) 0.25 mg tablet AT BEDTIME [...] rare- maybe 2x/ year Drug use: No Review of Systems Constitutional: Negative for chills, fatigue and fever. HENT: Positive for ear pain, rhinorrhea and sore throat. Negative for ear discharge, sinus pressureand sinus pain. Eyes: Negative for discharge and redness. Respiratory: Positive for cough. Negative for shortness of breath and wheezing. Cardiovascular: Negative for chest pain. Skin: Negative for rash. Objective BP 122/70 Pulse 80 Temp 36.9 C (98.4 F) Resp 16 Wt 87.8 kg (193 lb 9 oz) LMP 07/24/2016 (Approximate) SpO2 96% BMI 33.23 kg/m Physical Exam Constitutional: General: She is not in acute distress. Appearance: She is ill-appearing (mild). She is not toxic-appearing or diaphoretic. HENT: Head: Normocephalic and atraumatic. Right Ear: Hearing, tympanic membrane, ear canal and external ear normal. Left Ear: Hearing, tympanic membrane, ear canal and external ear normal. Nose: Nose normal. Mouth/Throat: Pharynx: Uvula midline. Eyes: General: Lids are normal. No scleral icterus. Right eye: No discharge. Left eye: No discharge. Conjunctiva/sclera: Conjunctivae normal. Pupils: Pupils are equal, round, and reactive to light. Neck: Trachea: Trachea normal. Cardiovascular: Rate and Rhythm: Normal rate and regular rhythm. Heart sounds: Normal heart sounds. Pulmonary: Effort: Pulmonary effort is normal. Breath sounds: Normal breath sounds. Musculoskeletal: Cervical back: Normal range of motion and neck supple. Lymphadenopathy: Cervical: No cervical adenopathy. Skin: Findings: No rash. Neurological: Mental Status: She is alert and oriented to person, place, and time. {ASSESSMENT/PLAN: 1. Sinobronchitis - ICD9: 473.9, 490, ICD10: J32.9, J40 (primary diagnosis) - Will begin treatment with as per antibiotic as written, see orders - Supportive care with plenty of fluids, rest, and analgesia prn. - Follow up in 3-5 days if symptoms persist or worsen. - PREDNISONE 20 MG TABLET - DOXYCYCLINE MONOHYDRATE 100 MG TABLET 2. Moderate persistent asthmatic bronchitis with acute exacerbation (HCC) - ICD9: order steroid - ALBUTEROL SULFATE HFA 90 MCG/ACTUATION AEROSOL INHALER - ALBUTEROL SULFATE 2.5 MG/3 ML (0.083 %) SOLUTION FOR NEBULIZATION Deejay Frances APRN.BEN History and Record Review External record(s) reviewed: prior outpatient record. Findings from review of outpatient records: hist of asthma Additional Tests or Interventions The following testing was considered but ultimately not selected after discussion with patient/family: chest xray and vs negative, exam negative today Disposition The patient was discharged. [facility] Radiology Diagnostic study note [facility] Imaging Services [address] [place] [address] Ankle min 3 Views MR#: [id number] Acct: [id number] Name: DAMARI RIOS Rep #: [id number] : 1975 F 49 From: Shelby Rangel MD PCP: Dr. Dwayne Stephens MD Status: REG CL I Study:Ankle min 3 Views Date of Exam: Exam# [id number] Ordering Dr: Adelina Stephens MD PROCEDURE: ANKLE MIN 3 VIEWS 12/15/2024 REASON FOR EXAM: LEFT ANKLE INJURY TECHNIQUE: ANKLE MIN 3 VIEWS COMPARISON: 12/04/2024. FINDINGS: Soft tissue edema and swelling overlying the lateral malleolus. Enthesophyte formation at the calcaneal insertion of Achilles tendon. Normal visualized distal tibia and medial malleolus. Normal visualized distal fibula and lateral malleolus. Normal tibiotalar articulation and ankle mortise. Normal visualized talus. Normal visualized calcaneus. The visualized subtalar, talonavicular, calcaneocuboid and tarsal articulations are normal. RAD/Ankle min 3 Views IMPRESSION: Soft tissue edema and swelling. Reading Location: [place] [address] CC: Dr. Dwayne Stephens MD ~ Power Bender Operator: Signed [facility]06-17-2025 Radiology Diagnostic study note [facility] Imaging Services [address] [place] [id number] Foot min 3 Views MR#: [id number] Acct: [id number] Name: DAMARI RIOS Rep #: [id number] : 1975 F 49 From: Shelby Rangel MD PCP: Dr. Dwayne Stephens MD Status: REG CL I Study:Foot min 3 Views Date of Exam: Exam# [id number] Ordering Dr: Adelina Stephens MD PROCEDURE: FOOT MIN 3 VIEWS 12/15/2024 REASON FOR EXAM: LEFT FOOT INJURY TECHNIQUE: FOOT MIN 3 VIEWS COMPARISON: 12/04/2024. FINDINGS: Enthesophyte formation at the calcaneal insertion of Achilles tendon, unchanged. Normal talus, calcaneus, and tarsal bones. Normal visualized subtalar, talonavicular, calcaneocuboid, tarsal and tarsometatarsal articulations. Normal metatarsi. Normal metatarsophalangeal joint of the great toe. Normal tibial and fibular sesamoid bones. Normalinterphalangeal joint of the great toe. Normal phalanges of the great toe. Normal second through fifth metatarsophalangeal joints. Normal interphalangeal joints of the lessertoes. Normal phalanges of the lesser toes. RAD/Foot min 3 Views IMPRESSION: No evidence for acute abnormality. Reading Location: [facility] CC: Dr. Dwayne Stephens MD ~ Power Bender Operator: Signed [facility]06-09-2025 Hospital Discharge instructions Patient Education 12/08/2024 09:45:52 Wrist Sprain Wrist Sprain A sprain is an injury to the ligaments or capsule that holds a joint together. There are no broken bones. Most sprains take about 3 to 6 weeks to heal. If it a severe sprain where the ligament is completely torn, it can take months to recover. Most wrist sprains are treated with a splint, wrist brace, or elastic wrap for support. Severe sprains may require surgery. Home care Keep your arm elevated to reduce pain and swelling. This is very important during the first 48 hours. Apply an ice pack over the injured area for 15 to 20 minutes every 3 to 6 hours. You should do thisfor the first 24 to 48 hours. You can make an ice pack by filling a plastic bag that seals at the top with ice cubes and then wrapping it with a thin towel. Continue to use ice packs for relief of pain and swelling as needed. As the ice melts, be careful to avoid getting your wrap, splint, or cast wet. After 48 hours, apply heat (warm shower or warm bath) for 15 to 20 minutes several times a day,or alternate ice and heat. You may use [id number] pain medicine to control pain, unless another pain medicine was prescribed. If you have chronic liver or kidney disease or ever had a stomach ulcer or gastrointestinal bleeding, talk with your doctor before using these medicines. If you were given a splint or brace, wear it for the time advised by your doctor. Follow-up care Follow up with your healthcare provider, or as advised. Any X-rays you had today don t show any broken bones, breaks, or fractures. Sometimes fractures don t show up on the first X-ray. Bruises and sprains can sometimes hurt as much as a fracture. These injuries can take time to heal completely. Ifyour symptoms don t improve or they get worse, talk with your doctor. You may need a repeat X-ray. If X-rays were taken, you will be told of any new findings that may affect your care. When to seek medical advice Call your healthcare provider right away if any of these occur: Pain or swelling increases Fingers or hand becomes cold, blue, numb, or tingly [id number] [employer]. [address] [place] [address]. All rights reserved. This information is not intended as a substitute for professional medical care. Always follow yourhealthcare professional's instructions. 12/08/2024 09:45:51 Ankle Sprain (Adult) Ankle Sprain (Adult) An ankle sprain is a stretching or tearing of the ligaments that hold the ankle joint together. There are no broken bones. An ankle sprain is a common injury for both children and adults. It happens when the ankle turns, twists, or rolls in an awkward way. This can be caused by a sports injury. Or it can happen from doing something as simple as stepping on an uneven surface. Ligaments are made of tough connective tissue. Normally, ligaments stretch a certain amount and then go back to their normal place. A sprain happens when a ligament is forced to stretch more than thenormal amount. A severe sprain can actually tear the ligaments. If you have a severe sprain, you may have felt or heard something like a pop when you were injured. Ankle sprains are given a grade depending on whether they are mild, moderate, or severe: Grade 1 sprain. A mild sprain with minor stretching and damage to the ligament. Grade 2 sprain. A moderate sprain where the ligament is partly torn. Grade 3 sprain. The most severe kind of sprain. The ligament is completely torn. Most sprains take about 4 to 6 weeks to heal. A severe sprain can take several months to recover. Your healthcare provider may order X-rays to be sure you don t have a fracture, or broken bone. The injured area will feel sore. Swelling and pain may make it hard to walk. You may need crutches if walking is painful. Or your provider may have you use a cast boot or air splint. This will dependon the grade of ankle sprain that you have. Home care For a Grade 1 sprain, use RICE (rest, ice, compression, and elevation): Rest your ankle. Don t walk on it. Ice should be used right away to help control swelling. Place an ice pack over the injured area for20 minutes. Do this every 3 to 6 hours for the first 24 to 48 hours. Keep using ice packs to ease pain and swelling as needed. To make an ice pack, put ice cubes in a plastic bag that seals at the top. Wrap the bag in a clean, thin towel or cloth. Never put ice or an ice pack directly on the skin. The ice pack can be put right on the cast, bandage, or splint. As the ice melts, be careful that thecast, bandage, or splint doesn t get wet. If you have a boot, open it to apply an ice pack, unless told otherwise by your provider. Compression devices help to control swelling. They also keep the ankle from moving and support yourinjured ankle. These devices include dressings, bandages, and wraps. Elevate or raise your ankle above the level of your heart when sitting or lying down. This is very important for the first 48 hours. Follow the RICE guidelines for a Grade 2 sprain. This type of sprain will take longer to heal. Yourprovider may have you wear a splint, cast, or brace to keep your ankle from moving. If you have a Grade 3 sprain, you are at risk for long-term ankle instability. In rare cases, surgery may be needed. Your provider may have you wear a short leg cast or a walking boot for 2 to 3 weeks. After 48 hours, it may be helpful to apply heat for 20 minutes several times a day. You can do thiswith a heating pad or warm compress. Or you may want to go back and forth between using ice and heat. Never apply heat directly to the skin. Always wrap the heating pad or warm compress in a clean, thin towel or cloth. You may use ojeq-yfo-pzdrzpy pain medicine (NSAIDS or nonsteroidal anti- inflammatory drugs) to control pain, unless another pain medicine was prescribed. Talk with your provider before using these medicines if you have chronic liver or kidney disease, or have ever had a stomach ulcer or gastrointestinal bleeding. Follow any rehabilitation exercises your provider gives you. These can help you be more flexible and improve your balance and coordination. This is helpful in preventing long-term ankle problems. Prevention To help prevent ankle sprains, it s important to have good strength, balance, and flexibility. Be sure to: Always warm up before you exercise or do something very active Be careful when walking or running on uneven or cracked surfaces Wear shoes that are in good condition and fit well Listen to your body s signals to slow down when you are in pain or tired Follow-up care Any X-rays you had today don t show any broken bones, breaks, or fractures. Sometimes fractures dont show up on the first X-ray. Bruises and sprains can sometimes hurt as much as a fracture. These injuries can take time to heal completely. If your symptoms don t get better or they get worse, talk with your healthcare provider. You may need a repeat X-ray. Follow up with your healthcare provider, or as advised. Check for any warning signs listed below. When to seek medical advice Call your healthcare provider right away if any of these occur: Fever of 100.4 F (38 C) or higher, or as directed by your healthcare provider Chills The injury doesn t seem to be healing The swelling comes back The cast or splint has a bad smell The plaster cast or splint gets wet or soft The fiberglass cast or splint gets wet and does not dry for 24 hours The pain or swelling increases, or redness appears Your toes become cold, blue, numb, or tingly The skin is discolored (looks blue, purple, or leiva), has blisters, or is irritated You re-injure your ankle [id number] [employer]. [address] [place] [address]. All rights reserved. This information is not intended as a substitute for professional medical care. Always follow yourhealthcare professional's instructions. Follow Up Care 12/08/2024 08:03:52 With:JACI LEGER MD Address: [address] [place] [address] [facility] [place] [phone] When:5 to 7 days only if needed With:Go to emergency room if symptoms worsen Address:Unknown When:2-4 days With:JAYME STEPHENS MD Address:Unknown When:2-4 days [facility] 06-09-2025 Note Discharge Instructions Thank you for allowing [facility] to assist you with your healthcare needs. The following is importantdischarge information regarding your hospital visit. Diagnosis from Today's Visit Left ankle sprain Left wrist sprain What to Do Next Instructions from Your Care Team Follow-up with your PCP for repeat assessment within the next few days. Keep the extremities elevated when able, and can ice the extremities for help with swelling and discomfort. Take Tylenol or Motrin as needed for discomfort. If symptoms persist greater than a week, follow-up with orthopedics asprovided as you may require further evaluation and management. Discharge Home Equipment - Ordered -- Splint, wrist Left, 99 month(s), 12/08/24 9:44:00 EDT Post Acute Orders No qualifying data available. You Need to Schedule the Following Appointments Follow Up with JACI LEGER MD When:Within 5 to 7 days, only if needed Where:[address] [facility] [place] [address] [phone] Follow Up with Go to emergency room if symptoms worsen When:Within 2-4 days Follow Up with JAYME STEPHENS MD When:Within 2-4 days Allergies penicillin Medications Please ask your primary doctor or pharmacist before taking any other medication not listed, including over the counter drugs, herbal medications, vitamins and or supplements as they may interact withyour home medications. Please take this list to your next doctor s visit. Bring all medications you take, including over the counter medications, herbals and other supplements with you to your doctor s visit. Patients and families are reminded to discard old lists and to update any records with all medication providers or retail pharmacies. Education Materials Wrist Sprain A sprain is an injury to the ligaments or capsule that holds a joint together. There are no broken bones. Most sprains take about 3 to 6 weeks to heal. If it a severe sprain where the ligament is completely torn, it can take months to recover. Most wrist sprains are treated with a splint, wrist brace, or elastic wrap for support. Severe sprains may require surgery. Home care Keep your arm elevated to reduce pain and swelling. This is very important during the first 48 hours. Apply an ice pack over the injured area for 15 to 20 minutes every 3 to 6 hours. You should do thisfor the first 24 to 48 hours. You can make an ice pack by filling a plastic bag that seals at the top with ice cubes and then wrapping it with a thin towel. Continue to use ice packs for relief of pain and swelling as needed. As the ice melts, be careful to avoid getting your wrap, splint, or cast wet. After 48 hours, apply heat (warm shower or warm bath) for 15 to 20 minutes several times a day,or alternate ice and heat. You may use lccm-faa-tbbmtim pain medicine to control pain, unless another pain medicine was prescribed. If you have chronic liver or kidney disease or ever had a stomach ulcer or gastrointestinal bleeding, talk with your doctor before using these medicines. If you were given a splint or brace, wear it for the time advised by your doctor. Follow-up care Follow up with your healthcare provider, or as advised. Any X-rays you had today don t show any broken bones, breaks, or fractures. Sometimes fractures don t show up on the first X-ray. Bruises and sprains can sometimes hurt as much as a fracture. These injuries can take time to heal completely. Ifyour symptoms don t improve or they get worse, talk with your doctor. You may need a repeat X-ray. If X-rays were taken, you will be told of any new findings that may affect your care. When to seek medical advice Call your healthcare provider right away if any of these occur: Pain or swelling increases Fingers or hand becomes cold, blue, numb, or tingly [phone] [employer]. [address] [place] [address]. All rights reserved. This information is not intended as a substitute for professional medical care. Always follow yourhealthcare professional's instructions. Ankle Sprain (Adult) An ankle sprain is a stretching or tearing of the ligaments that hold the ankle joint together. There are no broken bones. An ankle sprain is a common injury for both children and adults. It happens when the ankle turns, twists, or rolls in an awkward way. This can be caused by a sports injury. Or it can happen from doing something as simple as stepping on an uneven surface. Ligaments are made of tough connective tissue. Normally, ligaments stretch a certain amount and then go back to their normal place. A sprain happens when a ligament is forced to stretch more than thenormal amount. A severe sprain can actually tear the ligaments. If you have a severe sprain, you may have felt or heard something like a pop when you were injured. Ankle sprains are given a grade depending on whether they are mild, moderate, or severe: Grade 1 sprain. A mild sprain with minor stretching and damage to the ligament. Grade 2 sprain. A moderate sprain where the ligament is partly torn. Grade 3 sprain. The most severe kind of sprain. The ligament is completely torn. Most sprains take about 4 to 6 weeks to heal. A severe sprain can take several months to recover. Your healthcare provider may order X-rays to be sure you don t have a fracture, or broken bone. The injured area will feel sore. Swelling and pain may make it hard to walk. You may need crutches if walking is painful. Or your provider may have you use a cast boot or air splint. This will dependon the grade of ankle sprain that you have. Home care For a Grade 1 sprain, use RICE (rest, ice, compression, and elevation): Rest your ankle. Don t walk on it. Ice should be used right away to help control swelling. Place an ice pack over the injured area for20 minutes. Do this every 3 to 6 hours for the first 24 to 48 hours. Keep using ice packs to ease pain and swelling as needed. To make an ice pack, put ice cubes in a plastic bag that seals at the top. Wrap the bag in a clean, thin towel or cloth. Never put ice or an ice pack directly on the skin. The ice pack can be put right on the cast, bandage, or splint. As the ice melts, be careful that thecast, bandage, or splint doesn t get wet. If you have a boot, open it to apply an ice pack, unless told otherwise by your provider. Compression devices help to control swelling. They also keep the ankle from moving and support yourinjured ankle. These devices include dressings, bandages, and wraps. Elevate or raise your ankle above the level of your heart when sitting or lying down. This is very important for the first 48 hours. Follow the RICE guidelines for a Grade 2 sprain. This type of sprain will take longer to heal. Yourprovider may have you wear a splint, cast, or brace to keep your ankle from moving. If you have a Grade 3 sprain, you are at risk for long-term ankle instability. In rare cases, surgery may be needed. Your provider may have you wear a short leg cast or a walking boot for 2 to 3 weeks. After 48 hours, it may be helpful to apply heat for 20 minutes several times a day. You can do thiswith a heating pad or warm compress. Or you may want to go back and forth between using ice and heat. Never apply heat directly to the skin. Always wrap the heating pad or warm compress in a clean, thin towel or cloth. You may use lazl-mmo-zfvrniq pain medicine (NSAIDS or nonsteroidal anti- inflammatory drugs) to control pain, unless another pain medicine was prescribed. Talk with your provider before using these medicines if you have chronic liver or kidney disease, or have ever had a stomach ulcer or gastrointestinal bleeding. Follow any rehabilitation exercises your provider gives you. These can help you be more flexible and improve your balance and coordination. This is helpful in preventing long-term ankle problems. Prevention To help prevent ankle sprains, it s important to have good strength, balance, and flexibility. Be sure to: Always warm up before you exercise or do something very active Be careful when walking or running on uneven or cracked surfaces Wear shoes that are in good condition and fit well Listen to your body s signals to slow down when you are in pain or tired Follow-up care Any X-rays you had today don t show any broken bones, breaks, or fractures. Sometimes fractures dont show up on the first X-ray. Bruises and sprains can sometimes hurt as much as a fracture. These injuries can take time to heal completely. If your symptoms don t get better or they get worse, talk with your healthcare provider. You may need a repeat X-ray. Follow up with your healthcare provider, or as advised. Check for any warning signs listed below. When to seek medical advice Call your healthcare provider right away if any of these occur: Fever of 100.4 F (38 C) or higher, or as directed by your healthcare provider Chills The injury doesn t seem to be healing The swelling comes back The cast or splint has a bad smell The plaster cast or splint gets wet or soft The fiberglass cast or splint gets wet and does not dry for 24 hours The pain or swelling increases, or redness appears Your toes become cold, blue, numb, or tingly The skin is discolored (looks blue, purple, or leiva), has blisters, or is irritated You re-injure your ankle [phone] [employer]. [address] [place] [address]. All rights reserved. This information is not intended as a substitute for professional medical care. Always follow yourhealthcare professional's instructions. Additional Information VACCINATE! IT SAVES LIVES! Members of the community who have not yet received the COVID-19 vaccine and would like to receive it can visit one of [facility] vaccine clinics. There are many vaccine clinic locations within the [facility]. For locations and available times, please visit www.gettheshot.coronavirus.[place].gov/. It is important to note that some COVID mobile vaccine clinics are held outdoors and may be canceled in rainy or stormy conditions. To learn more about pediatric vaccinations (ages 5-11), we invite you to visit the [facility] webpage. https://www.[employer].org/pages/4333-Sjnve-Ltgtvkrselx-Nmlucnxjmn-Wsmzt-Uxu stions.htmlTo learn more about the COVID-19 vaccine, we invite you to visit the CDC website for a list of frequently asked questions. https://www.cdc.gov/coronavirus/2019-ncov/vaccines/faq.html [facility] Patient Portal Access Instructions: Stay connected with your healthcare team and access your personal medical information anytime with the [facility] Patient Portal. If you would like a full copy of your medical records please contact the [facility] Medical Records Department Sunday through Sunday between 8a.m. and 4:30p.m. Please follow the directions below to access the portal: 1.Access the email account you provided upon registration to the hospital.2.Look for an invitation email from [facility].3.Open the email and access the invitation link: Accept Invitation to [facility]4.Fill in the required vora to create your account. Sign into www.[employer] with your username and password that you created in the above steps to stay up to date. You can then view a summary of results, a summary of your visits, and the ability to download your summaries to your computer or send the information securely to a physician. Remember that your healthcare information is confidential, so carefully consider who you will allow to register on the [facility] Patient Portal for access to your information. You can also access the [facility] Patient Portal on the [employer]. Simply click on Health Records under [employer] and then click on the [employer] logo. HOW TO SAFELY DISPOSE OF PRESCRIPTION MEDICATIONS Please use one of the following methods to safely dispose of your unused medications. 1.Use a drug disposal kit: the drug disposal pouch allows you to safely discard your old and unuseddrugs. Ask your nurse to give you one when you are discharged.2.Visit a local take-back location: Many local pharmacies and police departments have programs that collect old and unwanted prescriptiondrugs. Call your local pharmacy or go to http://Screenhero.Quickcue/8E1Jd8f to find one close to you.3.Make use of household items: Use cat litter or old coffee grounds to dispose medications if other options arenot available. Mix your drugs with these household products, seal them in an airtight container andthrow it into the garbage. Call [facility]: [phone] to be sure your drugs can be disposed of in this way. Some medicines may require a different approach.4.Never flush your medications down the toilet. IF YOU HAVE BEEN PRESCRIBED AN OPIOIDS FOR PAIN If you have been prescribed an opioid (such as hydrocodone, oxycodone or morphine), it is critical to understand the possible side effects and risks of opioid pain medications. Even when taken as directed, opioids can have several side effects including: Tolerance, meaning you might need to take more of a medication for the same pain relief. Nausea, vomiting and/or constipation. Sleepiness, dizziness, dry mouth, confusion, depression or itching. Physical dependence, meaning you have withdrawal symptoms when a medication is stopped ? this can develop within a few days. KNOW YOUR RESPONSIBILITIES It is important to know exactly how much and how often to take the opioid pain medications you are prescribed. Never take opioids in higher amounts or more often than prescribed. Do not combine opioids with alcohol or other drugs that cause drowsiness, such as benzodiazepines, also known as benzos,including diazepam and alprazolam, muscle relaxants or sleep aids. Never sell or share prescriptionopioids. This is illegal. Store opioids in a secure place and out of reach of others (including children, family, friends and visitors). The last page(s) of this document has been signed and retained as a CHART COPY Signatures Patient Education Materials Wrist Sprain Ankle Sprain (Adult) Medication Leaflets My discharge plan and instructions have been reviewed and explained to me and I,DAMARI RIOS Thad understand my current condition and have read and understand these discharge instructions. I have received a written copy of the plan/instructions. If I have questions, I am aware that I should contactmy doctor. Patient/Project Inspector Signature: Date/Time: Relationship to Patient: Witness Name/Signature: Date/Time: [facility]06-09-2025 Note* Exam Date Time Procedure Performing Provider Status 12/08/24 8:28 AM XR Wrist Minimum 3 Views Left MAIN MORENO DO; Auth (Verified) [id number] ORIGINAL EXAMINATION: THREE XRAY VIEWS OF THE LEFT WRIST12/08/2024 8:29 am WRIST 3 VIEWS LEFT COMPARISON: None HISTORY: ORDERING SYSTEM PROVIDED HISTORY: Reason for Exam: wrist pain and swelling FINDINGS: No acute fracture or dislocation is identified. The joint spaces are maintained. There is no radiopaque foreign body. Ring obscures the 4th proximal phalanx. IMPRESSION: No acute fracture or dislocation. I have personally reviewed the images of this examination and agree with the resident's findings and interpretation. Interpreted by: Main Moreno DO Preliminary Report By: Yemi Martin MD Electronically signed By Main Moreno DO Dictated Date: 12/08/2024 8:58:53 AM Prelim Date: 12/08/2024 9:20:56 AM Sign Date: 12/08/2024 9:20:56 AM Ordering Provider: [facility]06-09-2025 Note* Exam Date Time Procedure Performing Provider Status 12/08/24 8:26 AM XR Ankle Minimum 3 Views Left MAIN MORENO DO; Auth (Verified) [id number] ORIGINAL EXAMINATION: THREE XRAY VIEWS OF THE LEFT ANKLE 12/08/2024 8:27 am COMPARISON: None. HISTORY: ORDERING SYSTEM PROVIDED HISTORY: Reason for Exam: ankle swelling, pain FINDINGS: No acute fracture or dislocation is visualized. The talar dome is intact. The joint spaces are preserved. There is mild soft tissue edema in the lateral foot near the ankle. There are no areas of cortical erosion. IMPRESSION: No fracture or dislocation. Mild soft tissue edema. I have personally reviewed the images of this examination and agree with the resident's findings and interpretation. Interpreted by: Main Moreno DO Preliminary Report By: Taran Graham Electronically signed By Main Moreno DO Dictated Date: 12/08/2024 8:38:37 AM Prelim Date: 12/08/2024 9:02:58 AM Sign Date: 12/08/2024 9:02:58 AM Ordering Provider: [facility]06-05-2025 Radiology Diagnostic study note [facility] Imaging Services [address] [place] [address] Ankle min 3 Views MR#: [id number] Acct: [id number] Name: DAMARI RIOS Rep #: [id number] : 1975 F 49 From: Elmo Benedict MD PCP: Dr. Dwayne Stephens MD Status: REG ER Study:Ankle min 3 Views Date of Exam: Exam# [id number] Ordering Dr: Meagan Thurman DO PROCEDURE: ANKLE MIN 3 VIEWS 12/04/2024 REASON FOR EXAM: PAIN TECHNIQUE: Three views of the left ankle were obtained. COMPARISON: None. FINDINGS: There is no evidence of fracture or dislocation. There are no joint space abnormalities. There are no soft tissue abnormalities. RAD/Ankle min 3 Views IMPRESSION: Normal left ankle. Reading Location: [facility] CC: Dr. Dwayne Stephens MD; Jovani Thurman DO ~ Power Bender Operator: Signed [facility] Work Phone: [phone] Radiology Diagnostic study note [facility] Imaging Services [address] [place], [place] [address] Tibia & Fibula 2 Views MR#: [id number] Acct: [id number] Name: DAMARI ROIS Rep #: [id number] : 1975 F 49 From: Elmo Benedict MD PCP: Dr. Dwayne Stephens MD Status: REG ER Study:Tibia & Fibula 2 Views Date of Exam: 12/04/24 Exam# [id number] Ordering Dr: Meagan Thurman DO EXAM: Left tibia and fibula. CLINICAL HISTORY: Trauma. COMPARISON: None. TECHNIQUE: AP and lateral views of the left tibia and fibula were obtained. FINDINGS: The left tibia and fibula are intact. Limited evaluation of the left knee and left ankle are unremarkable. There are no soft tissue abnormalities. RAD/Tibia & Fibula 2 Views IMPRESSION: Normal left tibia and fibula. Reading Location: [facility] CC: Dr. Dwayne Stephens MD; Jovani Thurman DO ~ Power Bender Operator: Signed [facility] Work Phone: 1(744) 219-661906-05-2025 Radiology Diagnostic study note [facility] Imaging Services [address], [place] [address] Foot min 3 Views MR#: [id number] Acct: [id number] Name: DAMARI RIOS Rep #: [id number] : 1975 F 49 From: Elmo Benedict MD PCP: Dr. Dwayne Stephens MD Status: REG ER Study:Foot min 3 Views Date of Exam: 11/23 Exam# [id number] Ordering Dr: Meagan Thurman DO PROCEDURE: FOOT MIN 3 VIEWS 12/04/2024 REASON FOR EXAM: PAIN TECHNIQUE: Three views of the left foot were obtained. COMPARISON: None. FINDINGS: There is no evidence of fracture or dislocation. There are no joint space abnormalities. There are no soft tissue abnormalities. RAD/Foot min 3 Views IMPRESSION: Normal left foot. Reading Location: [id number] CC: Dr. Dwayne Stephens MD; DO Tobi Peña Power Bender Operator: Signed [facility] Work Phone: 1(295) 301-135106-01-2025 Discharge summary [facility] Medical Records Department [address] [place] [address] Emergency Department Summary 11/30/24 MR#: [id number] Acct: [id number] Name: DAMARI RIOS Rep #:[id number] : 1975 49 From: Eulogio Acuña MD PCP: Dr. Dwayne Stephens MD Status:REG ER Location: ED HPI History of Present Illness Chief Complaint: Upper Extremity Injury Narrative Narrative: 49-year-old female, pysnx-ytll-gzsfyjzk, past medical history of DVT/PE on Eliquis presents with right hand injury from a few days ago. She states that she was rearranging large [employer] tubs/boxes. 1 started to fall onto her over her head. She tried to brace it with her right hand. She sustaineda hyper extension injury and complains of pain mainly on the back of her hand and radiating up towards her wrist. Pain is worse with movement. She denies other injuries. No hitting of her head or loss of consciousness. [facility] Medical History Peripheral vascular disease Urinary tract [...] surgery/hand to follow-up as needed. I feel lrie-nzm-ilfhvkd medications are sufficient for analgesia for her [...] Active Staff] - As Needed Print Language: Bangladeshi Disposition Disposition: Home, Self Care What to do if you have Problems For any increased pain, shortness of breath, bleeding, nausea or vomiting, chestpain, or any unexpected problems, contact your Primary Care Provider. Call [facility] ([phone]) or report tothe closest Emergency Room. Call 911 if necessary. 11/30/24 1650 Cosigner Signature (if applicable): CC: Dr. Dwayne Stephens MD ~ Signed [facility]06-01-2025 Radiology Diagnostic study note [facility] Imaging Services [address], [place] [id number] Wrist min 3 Views MR#: [id number] Acct: [id number] Name: DAMARI RIOS Rep #: [id number] : 1975 F 49 From: Claude Valadez MD PCP: Dr. Dwayne Stephens MD Status: REG ER Study:Wrist min 3 Views Date of Exam: Exam# [id number] Ordering Dr: Eulogio Acuña MD PROCEDURE: WRIST MIN 3 VIEWS 11/30/2024 REASON FOR EXAM: PAIN TECHNIQUE: Three views of the right wrist. COMPARISON: None. FINDINGS: No evidence of acute fracture or dislocation. The soft tissues are unremarkable. RAD/Wrist min 3 Views IMPRESSION: No acute osseous abnormalities. Reading Location: [id number] CC: Dr. Eulogio Acuña MD; Dr. Dwayne Stephens MD ~ Power Bender Operator: Signed [facility]06-01-2025 Discharge summary Author Eulogio Acuña [facility] Note Date/Time November 30, 2024 4:50p m [facility] Medical Records Department [address] [place] [address] Emergency Department Summary 11/30/24 MR#: [id number] Acct: [id number] Name: DAMARI RIOS Rep #:[id number] : 1975 49 From: Eulogio Acuña MD PCP: Dr. Dwayne Stephens MD Status:REG ER Location: ED HPI History of Present Illness Chief Complaint: Upper Extremity Injury Narrative Narrative: 49-year-old female, jbgun-ovje-bovzruvg, past medical history of DVT/PE on Eliquis [...] of her head or loss of consciousness. [facility] Medical History Peripheral vascular disease Urinary tract [...] surgery/hand to follow-up as needed. I feel aqtu-gjr-viotzks medications are sufficient for analgesia for her [...] Active Staff] - As Needed Print Language: Bangladeshi Disposition Disposition: Home, Self Care What to do if you have Problems For any increased pain, shortness of breath, bleeding, nausea or vomiting, chestpain, or any unexpected problems, contact your Primary Care Provider. Call [facility] ([phone]) or report to the closest Emergency Room. Call 911 if necessary. 11/30/24 1650 <Electronically signed by Eulogio Acuña MD> Cosigner Signature (if applicable): CC: Dr. Dwayne Stephens MD ~ Signed [facility] Work Phone: 1([phone]) 606-191505-06-2025 Evaluation note* Diagnosis Onset Date Resolution Status Admit Date Lumbar radiculopathy acute November 04, 2024 2:40pm Abdominal symptoms noneactive November 132024 3:18pm [facility] Work Phone: 1(752) 248-597405-06-2025 Evaluation note* Diagnosis Onset Date Resolution Status Admit Date Lumbar radiculopathy acute November 04, 2024 2:40pm Gastritis acute November 13, 2024 3:18pm IBS (irritable bowel syndrome) acute November 13, 2024 3:18pm Nausea acute November 13, 2024 3:18pm Abdominal pain inactive November 13, 2024 3:18pm Abdominal symptoms noneactive November 132024 3:18pm [facility] Work Phone: 1(939) 775-495105-06-2025 Evaluation note* Diagnosis Onset Date Resolution Status Admit Date Lumbar radiculopathy acute November 04, 2024 2:40pm Gastritis acute November 13, 2024 3:18pm IBS (irritable bowel syndrome) acute November 13, 2024 3:18pm Nausea acute November 13, 2024 3:18pm Abdominal pain inactive November 13, 2024 3:18pm Abdominal symptoms noneactive November 132024 3:18pm Heart palpitations acute December 022024 1:17pm Pulmonary embolism acute December 022024 1:17pm Hypertension chronic December 02 1:17pm [facility] Work Phone: 1(279) 579-355705-06-2025 Evaluation note* Diagnosis Onset Date Resolution Status Admit Date Lumbar radiculopathy acute November 04, 2024 2:40pm Gastritis acute November 13, 2024 3:18pm IBS (irritable bowel syndrome) acute November 13, 2024 3:18pm Nausea acute November 13, 2024 3:18pm Abdominal pain inactive November 13, 2024 3:18pm Abdominal symptoms noneactive November 132024 3:18pm Heart palpitations acute December 022024 1:17pm Pulmonary embolism acute December 022024 1:17pm Hypertension chronic December 02 1:17pm Gastritis acute December 16 3:24pm IBS (irritable bowel syndrome) acute December 16, 2024 3:24pm Nausea acute December 16 3:24pm [facility] Work Phone: 1([phone]) 621-879705-06-2025 Evaluation note* Diagnosis Onset Date Resolution Status Admit Date Lumbar radiculopathy acute November 04, 2024 2:40pm Gastritis acute November 13, 2024 3:18pm IBS (irritable bowel syndrome) acute November 13, 2024 3:18pm Nausea acute November 13, 2024 3:18pm Abdominal pain inactive November 13, 2024 3:18pm Abdominal symptoms noneactive November 132024 3:18pm Heart palpitations acute December 022024 1:17pm Pulmonary embolism acute December 022024 1:17pm Hypertension chronic December 02 1:17pm Gastritis acute December 16 3:24pm IBS (irritable bowel syndrome) acute December 16, 2024 3:24pm Nausea acute December 16 3:24pm Gastritis acute January 20 3:08pm IBS (irritable bowel syndrome) acute January 20, 2025 3:08pm [facility] Work Phone: 1(842) 761-344804-02-2025 Radiology Diagnostic study note [facility] Imaging Services [address] [place] [address] Tibia & Fibula 2 Views MR#: [id number] Acct: [id number] Name: DAMARI RIOS Rep #: [id number] : 1975 F 48 From: Betsey Rodriguez DO PCP: Dr. Dwayne Stephens MD Status: REG ER Study:Tibia & Fibula 2 Views Date of Exam: 10/01/24 Exam# [id number] Ordering Dr: Pop Sykes DO PROCEDURE: TIBIA [...] Stephens MD; Dr. Albert Sykes DO ~ Power Bender Operator: Signed [facility]03-27-2025 Radiology Diagnostic study note [facility] Imaging Services [address] [place] [address] Abdomen/Pelvis W IV Cont ONLY MR#: [id number] Acct: [id number] Name: DAMARI RIOS Rep #: [id number] : 1975 F 48 From: Bonnie Martinez MD PCP: Dr. Dwayne Stephens MD Status: REG ER Study:Abdomen/Pelvis W IV Cont ONLY Date of E xam: 09/24/24 Exam# [id number] Ordering Dr: Sumanth Coyne DO PROCEDURE: ABDOMEN/PELVIS [...] hepatomegaly with diffuse hepatic steatosis. Reading Location: [facility] CC: Dr. Dwayne Stephens MD; Dr. Sumanth Schwiger, DO ~ Power Bender Operator: Signed [facility]03-06-2025 Discharge summary [facility] Medical Records Department [address] [place] [address] Emergency Department Summary 09/04/24 MR#: [id number] Acct: [id number] Name: DAMARI RIOS Rep #:[id number] : 1975 48 From: Eulogio Acuña MD [...] kidney stones which required stenting as well. [facility] Medical History Urinary tract infection Flank pain [...] Treatment will continue to be symptomatic with ddbm-zcv-xlcwizk medications as needed for pain. She may [...] 44.1 L Lymph % (Auto) 46.3 H Turner % (Auto) 5.8 Eos % (Auto) 3.3 [...] Clarity Clear Urine pH 6.0 Ur Specific Orlinda 1.020 Urine Protein 15 H Urine Glucose [...] use of iterative reconstruction technique). Reading Location: [place] [address] Chest X-Ray 09/04/24 15:25 IMPRESSION: No active cardiopulmonary disease. Reading Location: [place] [address] Discharge Plan Triage Chief Complaint: General Illness [...] not improving Activity Restrictions/Additional Instructions: Continue your qsol-rnw-zvcfodc medications as needed for pain. Return with increased difficulty breathing, new or worsening symptoms. Print Language: Bangladeshi Disposition Disposition: Home, Self Care What to do if you have Problems For any increased pain, shortness of breath, bleeding, nausea or vomiting, chestpain, or any unexpected problems, contact your Primary Care Provider. Call [facility] ([phone]) or report tothe closest Emergency Room. Call 911 if necessary. 09/04/24 1621 Cosigner Signature (if applicable): CC: Dr. Dwayne Stephens MD ~ Signed [facility]03-06-2025 Radiology Diagnostic study note [facility] Imaging Services [address] [place] [address] Chest 1 View (Portable) MR#: [id number] Acct: [id number] Name: DAMARI RIOS Rep #: [id number] : 1975 F 48 From: Sugar Garcia MD PCP: Dr. Dwayne Stephens MD Status: REG ER Study:Chest 1 View (Portable) Date of Exam: 09/04/24 Exam# [id number] Ordering Dr: Eulogio Acuña MD PROCEDURE: CHEST [...] IMPRESSION: No active cardiopulmonary disease. Reading Location: [place] [address] CC: Dr. Eulogio Acuña MD; Dr. Dwayne Stephens MD ~ Power Bender Operator: Signed [facility]03-06-2025 Radiology Diagnostic study note [facility] Imaging Services [address] [place], [place] [address] Abdomen/Pelvis without Cont MR#: [id number] Acct: [id number] Name: DAMARI RIOS Rep #: [id number] : 1975 F 48 From: Sugar Garcia MD PCP: Dr. Dwayne Stephens MD Status: REG ER Study:Abdomen/Pelvis without Cont Date of Exa m: 09/04/24 Exam# [id number] Ordering Dr: Eulogio Acuña MD PROCEDURE: ABDOMEN/PELVIS [...] use of iterative reconstruction technique). Reading Location: [facility] CC: Dr. Eulogio Acuña MD; Dr. Dwayne Stephens MD ~ Power Bender Operator: Signed [facility]03-06-2025 Discharge summary Author Eulogio Acuña [facility] Note Date/Time September 04, 2024 4:21 pm [facility] Medical Records Department [address] [place] [address] Emergency Department Summary 09/04/24 MR#: [id number] Acct: [id number] Name: DAMARI RIOS Rep #:[id number] : 1975 48 From: Eulogio Acuña MD [...] kidney stones which required stenting as well. [facility] Medical History Urinary tract infection Flank pain [...] Treatment will continue to be symptomatic with hcax-xcr-vpijhug medications as needed for pain. She may [...] 44.1 L Lymph % (Auto) 46.3 H Turner % (Auto) 5.8 Eos % (Auto) 3.3 [...] Clarity Clear Urine pH 6.0 Ur Specific Orlinda 1.020 Urine Protein 15 H Urine Glucose [...] use of iterative reconstruction technique). Reading Location: [place] [address] Chest X-Ray 09/04/24 15:25 IMPRESSION: No active cardiopulmonary disease. Reading Location: [place] [address] Discharge Plan Triage Chief Complaint: General Illness [...] not improving Activity Restrictions/Additional Instructions: Continue your jtbe-sei-ntoacmn medications as needed for pain. Return with increased difficulty breathing, new or worsening symptoms. Print Language: Bangladeshi Disposition Disposition: Home, Self Care What to do if you have Problems For any increased pain, shortness of breath, bleeding, nausea or vomiting, chestpain, or any unexpected problems, contact your Primary Care Provider. Call [facility] ([phone]) or report to the closest Emergency Room. Call 911 if necessary. 09/04/24 1621 <Electronically signed by Eulogio Acuña MD> Cosigner Signature (if applicable): CC: Dr. Dwayne Stephens MD ~ Signed [facility] Work Phone: 1(469) 928-247402-28-2025 Radiology Diagnostic study note [facility] Imaging Services [address], [place] [address] Lumbar Spine 2 or 3 Views MR#: [id number] Acct: [id number] Name: DAMARI RIOS Rep #: [id number] : 1975 F 48 From: Stefania Griggs MD PCP: Dr. Dwayne Stephens MD Status: REG CL I Study:Lumbar Spine 2 or 3 Views Date of Exam: 08/29/24 Exam# [id number] Ordering Dr: Adelina Stephens MD PROCEDURE: LUMBAR SPINE 2 OR 3 [...] MAURICE CC: Dr. Dwayne Stephens MD ~ Power Bender Operator: Signed [facility]01-17-2025 NoteHNO ID: [id number] Author: ARNULFO SANCHEZ APRN.MECHANICAL INSPECTOR Service: ? Author Type: Nurse Practitioner Type: [...] (lupus) Other Anesthesia P (more content not included)...[facility]01-17-2025 History of Present illness Narrative* Arnulfo Sanchez APRN.[facility] - 07/18/2024 2:32 PM EST CC: Patient [...] Patient agreeable to treatment plan. Arnulfo Sanchez APRN.MECHANICAL INSPECTOR documented in this encounter[facility]12-28-2024 [facility]12-28-2024 Evaluation note* Diagnosis Onset Date Resolution Status Admit Date Flank pain acute June 28, 2024 3:08am Nausea acute June 28, 2024 3:08am Urinary tract infection acute D ec2023 3:08am Pyelonephritis resolved June 022023 3:08am [facility] Work Phone: 1(694) 358-439212-08-2024 [facility]12-07-2024 Evaluation note* Diagnosis Onset Date Resolution Status Admit Date Hydronephrosis with renal calculous obstruction acute June 072023 5:01pm Nausea acute June 07, 2024 5:01pm Acute flank pain resolved June 07, 2024 5:01pm Flank pain acute June 28, 2024 3:08am Nausea acute June 28, 2024 3:08am Urinary tract infection acute D ec2023 3:08am Pyelonephritis resolved June 022023 3:08am [facility] Work Phone: 1(287) 905-587911-07-2024 [facility]11-06-2024 Evaluation note* Diagnosis Onset Date Resolution [...] 2023 3:08am Pyelonephritis resolved June 022023 3:08am [facility] Work Phone: 1(238) 612-709904-22-2024 History of Present illness Narrative* Angel Laguerre MD - 10/22/2023 1:05 PM EDT [...] unexplained fever, or progressive weakness or numbness. Angel Laguerre MD documented in this encounterSelect [facility]04-09-2024 Instructions* Patient Instructions* Dolly Sainz APRN.CNP - 10/09/2023 9:05 AM EDT ASSESSMENT/PLAN: 1. [...] fluids help open respiratory and sinus passages [place] [facility] [place] may offer relief of nasal and head [...] worse rather than better documented in this encounterSelect [facility]04-09-2024 History of Present illness Narrative* Destiny Scruggs [...] molecular testing negative ALBINA Loera TEACHING PROVIDER (Physician/PA/FUEL HOUSE ATTENDANT) NOTE OF PERSONAL INVOLVEMENT IN CARE: I have personally seen and examined the patient and performed the medical decision-making components. I have reviewed the Advanced Practice Registered Nurse (FUEL HOUSE ATTENDANT) Student's documentation and verified the findings in the note as written. Any additions or changes are noted in bold/italics. Signature: Dolly Sainz Date: 10/09/2023 Time: 9:13 AM documented in this encounterSelect [facility]03-25-2024 Miscellaneous Notes* Telephone Encounter - Elizabeth Vergara MA - 09/24/2023 8:52 AM EDT Our practice is closed, no longer accepting any patients. She has not see Dr. Asher since nd she no showed 3 times within that year. Elizabeth Vergara MA * Telephone Encounter - Janette Santa - 09/22/2023 9:18 AM EDT Pt is previous pt of Lb, wondering if she can reestablish as she has recently moved back [facility]. Please review and advise. Janette Santa September 22, 2023 9:26 AM documented in this encounterSelect [facility]03-23-2024 Miscellaneous Notes* Telephone Encounter - Marie Mirza MA - 09/22/2023 9:35 AM EDT Patient notified of results, verbalized understanding of instructions given. Marie Mirza MA * Telephone Encounter - Justyn Maldonado APRN.CNP - 09/22/2023 9:24 AM EDT Radiologist read no acute fractures on x-ray. I would recommend continue wearing splint over the next 5 to 7 days for comfort measures. Follow-up with PCP if symptoms or not improving. Justyn Maldonado APRN.BEN documented in this encounterSelect Medical [facility]03-23-2024 History of Present illness Narrative* Florencia Alejandre RT(R) - 09/22/2023 8:50 AM EDT Radiology [...] PATIENT PRESENTS WITH AN IMPLANTABLE OR ATTACHED BRICKMASON SUPERVISOR: No RADIOLOGY DEPARTMENT: General X-ray: Exam(s) Completed: Upper Extremity X- Ray(s): Fingers/Thumb, right PERIPHERAL IV DATA: Not applicable SIGNED BY: RT Shruthi(R) September 22, 2023 8:54 AM documented in this encounterSelect [facility]03-23-2024 History of Present illness Narrative* Justyn Maldonado APRN.MECHANICAL INSPECTOR - 09/22/2023 8:40 AM EDT Images from [...] Pain is increased by movement or palpation. Zkxqm-dmon-tvzvwkzc. No surgeries or fractures in the past. [...] of care. This note was generated using Mumboe software. It may contain errors in wording, punctuation, or spelling. Justyn Maldonado APRN.MECHANICAL INSPECTOR documented in this encounterSelect Medical Special[facility]02-17-2024 NoteHNO ID: [id number] Author: DEMETRICE DELGADO RN Service: Care Management [...] 18, 2023 TIME: 1:29 PM CONTACT #: [id number] NoteHNO ID: [id number] Author: ZAINAB CROFT MD Service: Hospital Medicine [...] -- -- 72 -- 100 % 08/17/23 08 -- -- -- 61 -- -- 08/17/23 08 -- -- -- 67 16 100 % [...] MD DATE: August 17, 2023 TIME: 8:18 [facility]02-16-2024 NoteHNO ID: [id number] Author: SULLY ONEILL PA-C Service: Pulmonary Disease Author Type: Physician Transformer Assembly Supervisor Type: Progress Notes Filed: 08/17/2023 11:49 Note [...] not displayed. Plan above discussed with staff Fruit Stuffer Dr. Wynn ~~~~~~~~~~~~~~~~~~~~~~~~~~~~~~~~~~~~~~~~~~~~~~~~~~~~~ Sully Oneill PA-C [facility] Pager: [phone] [id number] NoteHNO ID: [id number] Author: SUMANTH ESCALANTE RN Service: Care Management [...] 17, 2023 TIME: 10:49 AM PAGER/CONTACT #: [phone]02-15-2024 NoteHNO ID: [id number] Author: ZAINAB CROFT MD Service: Hospital Medicine [...] (97.5 ?F) Oral 60 18 98 % 08/15/238 143/87 36.4 ?C (97.5 ?F) Oral 71 [...] MD DATE: August 16, 2023 TIME: 3:50 [facility]-2024 NoteHNO ID: [id number] Author: SULLY ONEILL PA-C Service: Pulmonary Disease Author Type: Physician Transformer Assembly Supervisor Type: Progress Notes Filed: 08/16/2023 09:53 Note [...] room air. Have discussed with nursing and [facility]. [facility] called this morning to confirm transport for [...] not displayed. Plan above discussed with staff Fruit Stuffer Dr. Wynn ~~~~~~~~~~~~~~~~~~~~~~~~~~~~~~~~~~~~~~~~~~~~~~~~~~~~~ Sully Oneill PA-C [facility] Pager: [phone] [id number] NoteHNO ID: [id number] Author: CATRACHITA FINNEY RN Service: Care Management Author Type: Registered Nurse Type: Yasir Adamet Progress Note Filed: 08/16/2023 09:00 Note Text: CARE MANAGEMENT PROGRESS NOTE SERVICE DATE: 08/16/2023 SERVICE TIME: 8:59 AM LOS: 2 days Post-Acute Discharge Planning Patient Goal(s): The patient/family expressed post-acute services are not needed at this time. Anticipated # of Days Until Discharge: 2 Needs Prior to Discharge: Needs Prior to Discharge: Discharge Prescriptions Post-Acute Discharge Plan: Bronchoscopy scheduled for today at [facility], for removal of foreign body. Spoke with [facility], transport set up for 929, she is calling to confirm. Per staff, patient to return following procedure. Current plan to return home with self-care, independent prior to admission. Anticipate no skilled needs or d/c transport. SIGNATURE: Catrachita Finney RN PATIENT NAME: Damari Rios DATE: August 16, 2023 TIME: 8:59 AM PAGER/CONTACT #:[facility]02-14-2024 NoteHNO ID: [id number] Author: RODDY FLANAGAN RN Service: Care Management Author Type: Registered Nurse Type: Yasir Adamet Initial Assessment Filed: 08/15/2023 14:43 Note Text: CARE MANAGEMENT: ASSESSMENT AND DISCHARGE PLAN SERVICE DATE: August 15, 2023 SERVICE TIME: 2:40 PM PCP: No primary care provider on file. Primary Contact: Extended Emergency Contact Information Primary Emergency Contact: Ysabel Valadez Address: [place] [id number] [facility] Mobile Relation: Friend Admission Status: Inpatient Insurance Provider: [facility] MEDICAID Discharge Planning requested by: Per Department Practice Potential Transition Plans Home Advance Directives Current Advance Directive: Health Care Power of Photocopying 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 In Chart: Yes Up To Date and [...] services are not needed at this time. [place] Explained: [place] Given: No Reason Not Given: [...] 15, 2023 TIME: 2:40 PM CONTACT #: [id number] History of Present illness Narrative* Lul Oneil Chin, FU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 - 08/06/2023 2:20 PM EST Referred by Dr. Madrid ref. provider found for Hypertension History Of Present Illness: Dear Dr. Weeks, I had the pleasure of meeting Mrs. Brand today at [facility] for evaluation of hypertension. The patient is seen in collaboration with Dr. Veronica. Mrs. Brand is a very pleasant 47 year old female with a history of HTN, fibromyalgia, astthma, GERD and PE (06/2023), she denies history of smoking. Family history of HTN, and CAD. She has had difficulty controlling her blood pressure. She was admitted in June 2023 with a PE at [facility], echocardiogram showed a preserved LV function. Heart [...] Asthma, Colon polyp, COPD (chronic obstructive pulmonary disease)([facility]), Dysfunctional uterine bleeding, GERD (gastroesophageal reflux disease), [...] of asthma, HTN, and GERD, recentlyadmitted to [facility] 06/2023 with PE. She had a heart [...] patient's care, please call with any questions Lul Chin APRN-MECHANICAL INSPECTOR documented [facility] encounterC[facility] Work Phone: 1(446) 529-705302-05-2024 Instructions* Patient Instructions* NASREEN Trinidad - 08/06/2023 2:20 PM EST CALL WITH ANY QUESTIONS HEART MONITOR FOR TWO WEEKS START AMLODIPINE 5 MG DAILY FOLLOW UP IN TWO MONTHS documented in this encounterC[facility] Work Phone: 1(107) 610-738501-02-2024 History of Present illness Narrative* Blayne Weeks [...] 20-valent (PREVNAR 20) (Completed) documented in this encounterC[facility] Work Phone: 1(116) [phone] NoteHNO ID: [id number] Author: Gerry (Or Scrub Tech)Jaci Service: Pharmacy Author Type: ? Type: Plan of Care Filed: 06/11/2023 4:49 PM Note Text: The following medications were delivered to the patient: ELIQUIS 5 mg tab(s) Generic drug: apixaban Take 1 tablet by mouth two times a day. tamsulosin 0.4 mg Commonly known as: FLOMAX Take 1 capsule by mouth once daily. 30 minutes after the same meal each day. Jaci Garrett (Or Scrub Tech) PAGER: discharge pharmacy rosales June 11, 2023 4:49 [facility]23 NoteHNO ID: [id number] Author: Sumanth Greene RN Service: Care Management [...] ED to Hosp-Admission (Current) from 06/01/[address] Medical Follow-Up Appointment Specialty Medline: Free [...] 11, 2023 TIME: 3:50 PM CONTACT #: [phone] NoteHNO ID: [id number] Author: Zainab Croft V, MD Service: General [...] salpingo-oophorectomy and urethral sling at OSH - ASSESSMENT NURSE PRACTITIONER- OP f/u Bipolar dx Mild Protein-Calorie Malnutrition DVT prophylaxis: AC D/c planning Mgean Joshua APRN.MECHANICAL INSPECTOR June 11, 2023[facility]23 NoteHNO ID: [id number] Author: Adriana Shelby APRN.BEN Service: Clinical Cardiology [...] collaborated with Dr. Okeefe SIGNATURE: Adriana Shelby APRN.BEN DATE: June 11, 2023 TIME: 11:12 AM CONTACTING [facility] CARDIOVASCULAR MEDICINE: Team A: (M-F 8:00 am - 5:00 pm) Sheela Mishra Scharfstein, Sparano, Vekstein, Wiseman, Gupta, Rogers - PAGE [phone] Team B: (M-F 8:00 am - 5:00 pm) Janny Flores Hawwa, Kaminski, Kruithoff, Mattina, Taraben, William, Abdelghany- [place] [phone] Night and Weekend Cardiovascular Medicine (consults, inpatient management questions, transfers, etc.): CALL [phone] (not the physician listed) - All calls triaged via answering service. Please include the patient's name, location, MRN, and 10-digit call-back number.[facility]12-10-2023 NoteHNO ID: [id number] Author: Zainab Croft V, MD Service: Hospital [...] salpingo-oophorectomy and urethral sling at OSH - ASSESSMENT NURSE PRACTITIONER- OP f/u Bipolar dx Mild Protein-Calorie Malnutrition DVT prophylaxis: DAVID Croft MDFederal [facility]12-09-2023 NoteHNO ID: [id number] Author: Zainab Croft V, MD Service: Hospital [...] salpingo-oophorectomy and urethral sling at OSH - ASSESSMENT NURSE PRACTITIONER- OP f/u Bipolar dx Mild Protein-Calorie Malnutrition DVT prophylaxis: AC Zainab Croft MDFederal [facility], [place]12-08-2023 NoteHNO ID: [id number] Author: Sina Emmanuel RN Service: Care Management [...] lives with a roommate. Dtg is an FOOD COUNSELOR, and roommate is an RN. Back to room air. + stress test, Heart cath done today. SIGNATURE: Sina Emmanuel RN PATIENT NAME: Damari Rios DATE: June 08, 2023 TIME: 3:30 PM PAGER/CONTACT #: Office:[phone] NoteHNO ID: [id number] Author: Zainab Croft V, MD Service: General [...] salpingo-oophorectomy and urethral sling at OSH - ASSESSMENT NURSE PRACTITIONER- OP f/u Bipolar dx Mild Protein-Calorie Malnutrition DVT prophylaxis: AC SIGNATURE: Megan Joshua APRN.MECHANICAL INSPECTOR DATE: June 08, 2023 Cardiac catheterization completed. Restart Eliquis tonight. Having some vague abdominal discomfort. MRI pending. Cardiology pulm examination as noted above. Approaching discharge. [facility]-07-2023 NoteHNO ID: [id number] Author: Zainab Croft V, MD Service: Hospital [...] reviewed for today's visit: CBC: Recent Labs 06/07/23 0921 WBC 11.51* RBC 4.40 HB 13.6 HCT 40.6 PLT 325 MCV 92.3 MCH 30.9 MPV 8.8* Coags: Recent Labs 06/07/2321 INR 1.0 APTT 30.0 BMP: No results [...] MD DATE: June 07, 2023 TIME: 5:08 PM[facility]-07-2023 NoteHNO ID: [id number] Author: Adriana Shelby APRN.CNP Service: Clinical Cardiology Author Type: Nurse Practitioner Type: Progress Notes Filed: 06/07/2023 9:12 AM Note Text: CONSULT PROGRESS NOTES CARDIOVASCULAR MEDICINE [facility] Patient Name: Damari Rios SERVICE DATE: 06/07/2023 [...] exacerbation L2 lesion noted on CT Schedule [facility] with Dr. Greene. NPO p MN Send Lipid panel Echo pending Continue current meds for HTN Hold Eliquis, place on Heparin gtt in preparation for [facility] tomorrow Assessment and Recommendations discussed and collaborated with Dr. Sweet MEDICATIONS: Current Facility-Administered Medications Medication Dose Route [...] imaging Most recent EKG SIGNATURE: Adriana Shelby APRN.MECHANICAL INSPECTOR DATE: June 07, 2023 TIME: 9:09 AM CONTACTING [facility] CARDI[facility]ULAR [facility]ICINE: Team A: (M-F 8:00 am - 5:00 pm) Sheela Mishra Scharfstein, Sparano, Vekstein, Wiseman, Gupta, Rogers - PAGE [phone] Team B: (M-F 8:00 am - 5:00 pm) Janny Flores Hawwa, Kaminski, Kruithoff, Mattina, Taraben, William, Abdelghany- [place] [phone] Night and Weekend Cardiovascular Medicine (consults, inpatient management questions, transfers, etc.): CALL [phone] (not the physician listed) - All calls triaged via answering service. Please include the patient's name, location, MRN, and 10-digit call-back number.[facility]12-[facility] History of Present illness Narrative* Main Reed [...] Asthma, Colon polyp, COPD (chronic obstructive pulmonary disease)([facility]/HCC), Dysfunctional uterine bleeding, GERD (gastroesophageal reflux disease), [...] months Main Reed MD documented in this [facility] Work Phone: 1(361) 544-693812-06-2023 NoteHNO ID: [id number] Author: Zainab Croft V, MD Service: Hospital [...] BP Temp Temp src Pulse Resp SpO2 06/06/232003 119/67 36.3 ?C (97.3 ?F) Oral [...] MD DATE: June 06, 2023 TIME: 9:10 PM[facility]-06-2023 NoteHNO ID: [id number] Author: Melinda Coello APRN.CNP Service: Pulmonary Disease Author Type: Nurse Practitioner Type: Plan of Care Filed: 06/06/2023 4:55 PM Note Text: Damari Rios [id number] Attempted to see today, was taken to stress test, on the second attempt was sleeping post procedure Will resume care tomorrow Melinda Coello APRN.[facility]12-06-2023 NoteHNO ID: [id number] Author: Dania Srinivasan RRT Service: ? Author [...] foggy with activity, requiring periods of rest [address]12-06-2023 NoteHNO ID: [id number] Author: Dania Srinivasan RRT Service: ? Author Type: Respiratory Therapist Type: Progress Notes Filed: 06/06/2023 10:20 AM Note Text: PULM FUNCTION SMARTBLOCK: Provider: Melinda Coello APRN.MECHANICAL INSPECTOR Oximetry - Ambulation: [address] [place], [place] [address]2-06-2023 NoteHNO ID: [id number] Author: Sukhjinder Landaverde APRN.CNP Service: Critical Care Author Type: Nurse Practitioner Type: Progress Notes Filed: 06/06/2023 10:26 AM Note Text: INPATIENT PROGRESS NOTES * SERVICE DATE: 06/06/2023 SERVICE TIME: 0856 Subjective Assessment: Ms Damari Rios is a [...] cardiology- EKG reviewed per Dr. Sweet - NPO for stress test per cardiology [...] 5 mg ORAL 2 TIMES DAILY Ordered 06/02/23 0922 -- 06/02/23 0930 apixaban 10 mg tab(s) (ELIQUIS) (apixaban tab(s) (ELIQUIS)) See Hyperspace for full Linked Orders Report. 10 mg ORAL 2 TIMES DAILY Given, 06/06 0821 06/02/23 0922 06/09/23 0859 06/01/23 2200 vte current anticoag (more content not included)...[facility] Procedure note* Dania Srinivasan, JERONIMO - 06/06/2023 10:19 AM ESTAssociated Order(s): OXIMETRY [...] periods of rest x2 documented in this encounter[facility]12-[facility]-2023 History of Present illness Narrative* Dania Srinivasan RRT - 06/06/2023 10:17 AM EST PULM FUNCTION SMARTBLOCK: Provider: Melinda Coello APRN.MECHANICAL INSPECTOR Oximetry - Ambulation: 1 documented in this encounterSelect [facility]12-04-2023 NoteHNO ID: [id number] Author: Zainab Croft V, MD Service: Hospital [...] MD DATE: June 04, 2023 TIME: 7:39 PM[facility]-04-[facility]23 NoteHNO ID: [id number] Author: Sina Emmanuel RN Service: Care Management [...] lives with a roommate. Dtg is an FOOD COUNSELOR, and roommate is an RN. Currently on 2L, but normally room air at baseline. Ultrasound lower extremities ordered. Pulm following. SIGNATURE: Sina Emmanuel RN PATIENT NAME: Damari Rios DATE: June 04, 2023 TIME: 2:16 PM PAGER/CONTACT #: Office:[phone] NoteHNO ID: [id number] Author: Adriana Martinez MD Service: Pulmonary Disease [...] June 03, 2023 TIME: 2:09 PM PAGER: [phone] [facility], [facility]12-03-2023 NoteHNO ID: [id number] Author: Zainab Croft V, MD Service: Hospital [...] MD DATE: June 03, 2023 TIME: 1:47 [facility]12-03-2023 NoteHNO ID: [id number] Author: June Longo RN Service: Care Management [...] Information Primary Emergency Contact: Ysabel Valadez Address: [place] [id number] [facility] Mobile Relation: Friend Admission Status: Inpatient Insurance Provider: [facility] MEDICAID Discharge Planning requested by: Per Department Practice Potential Transition Plans Home Advance Directives Current Advance Directive: Health Care Power of Photocopying 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 In Chart: Yes Up To Date and Valid: No Die Attaching Machine Tender Attempted to Assist with AD Completion: Yes [...] Be able to go home, General wellness [place] Explained: [place] Given: No Reason Not Given: No placements necessary Caregiver Assessment: Caregiver is ready, willing and able to meet the patient's needs as recommended by the inter-professional team: No Caregiver needed Transport at Discharge: Transportation Arrangements: Car (Daughter to transport) Needs Prior to Discharge: Needs Prior to Discharge: To Be Determined;None Post-Acute Discharge Plan: marketing intelligence manager called patient at bedside. Explained role of criminalist and discharge planning. Pt anticipated returning home, self-care, denies any home going skilled needs at this time, independent prior to admission with ADL's, still drives, lives with a roommate. Stated her Daughter is an FOOD COUNSELOR, and roommate is an RN. Pt denies [...] 03, 2023 TIME: 10:38 AM CONTACT #: [phone] [id number] NoteHNO ID: [id number] Author: Note, Interface Service: ? Author Type: ? Type: Progress Notes Filed: 06/02/2023 5:57 AM Note Text: Epic Scheduled Downtime: 06/02/2023 1:00:00 AM to 06/02/2023 5:38:00 [facility]11-27-2023 Note* Significant Event - Amanda Oneill RN - 05/28/2023 6:03 PM EST MEDICAATEDD WITH FENTANYL PER MOTOR EQUIPMENT CAPTAIN [facility]11-27-2023 Note* Significant Event - Amanda Oneill RN - 05/28/2023 6:03 PM EST ESTHER PAD HAS SM AMT RED DRAINAGE PRESEENT [facility] Work Phone: [phone]) 189-193911-27-2023 Miscellaneous Notes* Significant Event - Amanda Oneill RN - 05/28/2023 6:03 PM EST MEDICAATEDD WITH FENTANYL PER MOTOR EQUIPMENT CAPTAIN * Significant Event - Amanda Oneill RN [...] GIVEN FOR HTN * Significant Event - Amnada Oneill RN - 05/28/2023 5:43 PM EST [...] Surgeons * Main Reed - Primary Resident/Fellow/Other Transformer Assembly Supervisor: Surgeon(s) and Role: Emma Teran Procedure Summary Anesthesia: General ASA: III Anesthesia Staff: MOTOR EQUIPMENT CAPTAIN: Judy De La Fuente APRN-MOTOR EQUIPMENT CAPTAIN Estimated Blood Loss: 10 mL Intra-op Medications: [...] EXAM Main Reed MD 05/28/2023 1335 Staff: Short Story Writer: Alisia Gant RN; Nadya Langley RN Relief [...] entire procedure. Main Reed documented in this [facility] Work Phone: [phone]) 220-904811-27-2023 Note* Significant Event - Amanda Oneill RN - 05/28/2023 5:49 PM EST C/O HEARTBURN, LIKE SOMETHING STUCK IN MY CHEST-MIDSTERNAL [facility] Work Phone: [phone] Note* Significant Event - Amanda Oneill RN - 05/28/2023 5:47 PM EST BLOOD DRAWN FOR TROPONIN [facility] Work Phone: 1([phone]) 245-808211-27-2023 Note* Significant Event - Amanda Oneill RN - 05/28/2023 5:47 PM EST MEDICATED WITH MYLANTA FOR HEARTBURN [facility] Work Phone: [phone]) 561-903611-27-2023 Note* Significant Event - Amanda Oneill RN - 05/28/2023 5:46 PM EST EKG DONE [facility] Work Phone: 1(478) 556-771111-27-2023 Note* Significant Event - Amanda Oneill RN - 05/28/2023 5:44 PM EST 2ND DOSE OF HYDRALAZINE GIVEN FOR HTN [facility] Work Phone: [phone]) 287-435511-27-2023 Note* Significant Event - Amanda Oneill RN - 05/28/2023 5:43 PM EST MEDICATED FOR HTN [facility] Work Phone: [phone]) 640-384811-27-2023 Note* Significant Event - Amanda Oneill RN - 05/28/2023 5:41 PM EST VOIDING TRIAL STARTED [facility] Work Phone: [phone] Note* Op Note - Main Reed MD - 05/28/2023 1:05 PM EST Midurethral sling, cystoscopy, right oophorectomy Operative Note Date: 05/28/2023 OR Location: POR OR Name: Damari Rios, : 1975, Age: 47 y.o., , Sex: female Diagnosis Pre-op Diagnosis * Adnexal mass [N94.89] Post-op Diagnosis * Adnexal mass [N94.89] Procedures Laparoscopic right salpingoophorectomy Mid-urethral sling Surgeons * Main Reed - Primary Resident/Fellow/Other Transformer Assembly Supervisor: Surgeon(s) and Role: Emma Teran Procedure Summary Anesthesia: General ASA: III Anesthesia Staff: MOTOR EQUIPMENT CAPTAIN: Judy De La Fuente APRN-MOTOR EQUIPMENT CAPTAIN Estimated Blood Loss: 10 mL Intra-op Medications: [...] EXAM Main Reed MD 05/28/2023 1335 Staff: Short Story Writer: Alisia Gant RN; Nadya Langley RN Relief [...] scrubbed for the entire procedure. Main Reed [facility] Work Phone: 1(696) 522-735011-27-2023 Hospital Discharge instructions* Discharge Instructions* Emma Teran [...] from the narcotic medication. documented in this [facility] Work Phone: [phone]) [phone] History and physical note* Emma Teran MD [...] Dispo: home following surgery Emma Teran MD [facility] Work Phone: [phone]) 434-889911-27-2023 History and physical note* Emma Teran MD [...] surgery Emma Teran MD documented in this encounterC[facility] Work Phone: 1(770) 617-149911-21-2023 History of Present illness Narrative* Jana Casey [...] to review results. 05/22/2023/las [facility] Work Phone: 1(193) 407-149410-24-2023 History of Present illness Narrative* Janny Bai MD - 04/24/2023 9:20 AM EDT See report documented in this encounterC[facility] Work Phone: [phone]) 481-476210-05-2023 History of Present illness Narrative* Janny Bai MD - 04/05/2023 3:00 PM EDT Subjective Patient ID: Damari Rios is a 47 y.o. female who presents for No chief complaint on file.. HPI This is a 47-year-old female with history of hypertension, S/P cholecystectomy, fibromyalgia, nephrolithiasis, chronic back pain-opioid/NSAIDs use, COPD recent admission to [facility] with pyelonephritis, right renal calculi who came [...] GI in 2 months documented in this encounterC[facility] Work Phone: 1(960) 389-228510-05-2023 Instructions* Patient Instructions* Janny Bai MD - 04/05/2023 3:00 PM EDT EGD for further evaluation Screening colonoscopy Further recommendation as per EGD findings Avoid alcohol, NSAIDs Follow-up with GI in 2 months documented in this encounterCleveland Clinic [facility] Work Phone: 1([phone]) 752-354209-19-2023 History of Present illness Narrative* Blayne Weeks [...] HFA) 90 mcg/actuation inhaler documented in this encounterCleveland Clinic [facility] Work Phone: [phone]) 517-698109-13-2023 NoteSend Summary: Discharge Summary Providers: Provider RoleProvider Name Farnaz Daniel Brian ConsultingSheyn, David PrimaryKousa, Haitham Joseph Note Recipients: Kimberly Cason MD - [id number] [Preferred] Discharge: Summary: Admission Date: .08-Mar-2023 15:36:00 Discharge Date: 14-Mar-2023 Attending Physician at Discharge: Ronan Delgado Admission Reason: Right renal calculi and pyelonephritis(1) Final Discharge Diagnoses: Pyelonephritis, lithiasis, pulmonary edema, right ovarian cystic lesion, hypertension, hypokalemia, GERD with concerns of peptic ulcer disease Procedures: none Condition at Discharge: Satisfactory Disposition at Discharge: .Home Vital Signs: T PRBPMAPSpO2 Value36.79850399/92786% Date/Time03/14 9: 9: 9: 9: 9:59 Range(35.9C - 36.5C ) (53 - 66 ) (17 - 18 ) (142 - 180 )/ (78 - 104 ) (95% - 99% ) Date: Weight/Scale Type:Height: 09-Mar-2023 13:0077.4 kg / tys787.5 cm Physical Exam: Constitutional: Patient is alert. [...] advised to follow-up with her PCP and industrial management teacher. Overall time spent on discharge was longer [...] time of discharge: Full Code Electronic Signatures: Ronan Delgado) (Signed 14-Mar-2023 12:28) Authored: Send Summary, Summary Content, Immunizations, Ongoing Care, DNR Status, Note Completion Last Updated: 14-Mar-2023 12:28 by Ronan Delgado () References: 1. 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 Allergies: [...] Sneezing, Swelling Objective: Objective Information: T PRBPMAPSpO2 Value36.093383435/7897% Date/Time03/08 21: 21: 21: 20: 21:06 Range(36.3C - 37.1C ) (89 - [...] S2 regular. No murmur, rub or gallop. [place] beat not displaced. Gastrointestinal: Soft, tender in [...] Push Once 7. [place] (more content not included)...[facility]02-22-2023 Evaluation note* Encounter Date Diagnosis Assessment Notes Treatment Notes Treatment Clinical Notes Aug, Encounter for screening mammogram for malignant neoplasm of breast (ICD-10 - Z12.31) Aug, Blood blister (ICD-10 - T14.8XXA) Aug, Anxiety (ICD-10 - F41.9) [facility]. Other 10-25-2022 History of Present [...] 25, 2022 8:30 AM documented in this encounterSelect [facility]10-05-2022 Evaluation note* Encounter Date Diagnosis Assessment Notes Treatment Notes Treatment Clinical Notes Apr, Hypertension (ICD-10 - I10) I will have her stop her metoprolol for now due to her asthma an change to lotrel 11/08. keep bp log and recheck 4-6 wks with log. Apr, Laceration of forearm, left (ICD-10 - S51.812A) sutures removed and follow up with ortho as scheduled near future. [facility]. Other 09-20-2022 Evaluation note* Encounter Date Diagnosis Assessment Notes Treatment Notes Treatment Clinical Notes Mar, Encounter for immunization (ICD-10 - Z23) Patient Educated with: www.cdc.gov/vaccin es/hcp/vis/current -vis.html (www.cdc.gov/vacci ashwini/hcp/vis/xiomara t-vis.html) Mar, Laceration of forearm, left (ICD-10 - S51.812A) Mar, Other Observation 20 minutes post injection - no side effects [facility] Other 09-15-2022 Hospital Discharge instructions ED [...] Frankie Gaspar MD ([id number]) - Internal Medicine [facility] 08-30-2022 Evaluation note* Encounter Date Diagnosis Assessment Notes Treatment Notes Treatment Clinical Notes Jan, Bronchitis (ICD-10 - J40) nebulizer and xray today [facility] Other 08-30-2022 Evaluation note* Encounter Date Diagnosis Assessment Notes Treatment Notes Treatment Clinical Notes Jan, Bronchitis (ICD-10 - J40) [facility] Other 08-30-2022 Miscellaneous Notes* Telephone Encounter - Elida Alvarez RN - 02/28/2022 9:04 AM EDT Refill request for nebulizer and supplies. [facility] 06/19/2019. Will send patient message to schedule appt. Elida Alvarez RN documented in this encounterSelect Medical Specialty [facility], [facility]08-23-2022 History of Present illness Narrative* Bárbara Chan APRN.MECHANICAL INSPECTOR - 02/21/2022 1:09 PM EDT This is an Express Care eVisit note for Damari Rios eVisit/Questionnaire reviewed The chief complaint for the visit - Patient presents with: Sinus Problem Recommendations/Treatment plan - See My Chart Message to patient Bárbara Chan APRN.BEN Total time spent on e-Visit: 3 minutes documented in this encounterSelect [facility]03-30-2022 Miscellaneous Notes* Telephone Encounter - Bárbara Escudero [...] strong urge to urinate) Protocols used: URINARY [id number] documented in this encounterSelect Medical Special[facility]03-28-2022 History of Present illness Narrative* Marin Gutierrez [...] By signing my name below, I, Analilia Camachoor, attest that this documentation has been prepared [...] 26, 2021 1:50 PM documented in this encounterSelect [facility]09-03-2021 History of Present illness Narrative* Demetrice Ignacio [...] 04, 2021 2:13 PM documented in this encounterSelect [facility], [facility]05-02-2021 History of Present illness Narrative* 45 yo [...] +ch cough. * ECG 11/19: SR (79), [facility] Work Phone: 1(407) 953-242205-02-2021 History of Present illness Narrative* 45 yo [...] +ch cough. * ECG 11/19: SR (79), [facility] Work Phone: 1([phone]) 187-424204-09-2021 History of Present illness Narrative* Stanley Katz [...] PERIPHERAL IV DATA: Not applicable SIGNED BY: Stanley Katz, RT(R) October 08, 2020 2:13 PM documented in this encounterSelect Medical [facility]04-05-2021 History of Present illness Narrative* 45 yo [...] cough. * ECG 11/19: SR (79), normal [facility] Work Phone: 1([phone]) 112-254203-27-2021 History of Present illness Narrative* 45 yo [...] cough. * ECG 11/19: SR (79), normal [facility] Work Phone: 1([phone]) 292-238209-16-2015 History of Past illness Narrative* Problem Noted Date Resolved Date Community acquired pneumonia 03/17/2015 Bilateral pleural effusion 03/17/201507/24 SOB (shortness of breath) 03/17/20152019 Abdominal pain, unspecified site 04/03/2012 10/14/2013 Bipolar I disorder, most rec ent episode (or current) mixed, mild 03/27/2006 04/16/2008 Anxiety state, unspecified 03/27/200604/16 Panic disorder without agoraphobia 03/27/2006 04/16/2008 documented as of this encounter (statuses as of 09/26/2021) [facility] History of Past illness Narrative* Problem Noted Date Resolved Date Community acquired pneumonia 03/17/2015 Bilateral pleural effusion 03/17/201507/24 SOB (shortness of breath) 03/17/20152019 Abdominal pain, unspecified site 04/03/2012 10/14/2013 Bipolar I disorder, most rec ent episode (or current) mixed, mild 03/27/2006 04/16/2008 Anxiety state, unspecified 03/27/200604/16 Panic disorder without agoraphobia 03/27/2006 04/16/2008 documented as of this encounter (statuses as of 09/26/2021) [facility] History of Past illness Narrative* Problem Noted Date Resolved Date Community acquired pneumonia 03/17/2015 Bilateral pleural effusion 03/17/201507/24 SOB (shortness of breath) 03/17/20152019 Abdominal pain, unspecified site 04/03/2012 10/14/2013 Bipolar I disorder, most rec ent episode (or current) mixed, mild 03/27/2006 04/16/2008 Anxiety state, unspecified 03/27/200604/16 Panic disorder without agoraphobia 03/27/2006 04/16/2008 documented as of this encounter (statuses as of 09/29/2021) [facility] History of Past illness Narrative* Problem Noted Date Resolved Date Community acquired pneumonia 03/17/2015 Bilateral pleural effusion 03/17/201507/24 SOB (shortness of breath) 03/17/20152019 Abdominal pain, unspecified site 04/03/2012 10/14/2013 Bipolar I disorder, most rec ent episode (or current) mixed, mild 03/27/2006 04/16/2008 Anxiety state, unspecified 03/27/200604/16 Panic disorder without agoraphobia 03/27/2006 04/16/2008 documented as of this encounter (statuses as of 09/29/2021) [facility] History of Past illness Narrative* Problem Noted Date Resolved Date Community acquired pneumonia 03/17/2015 Bilateral pleural effusion 03/17/201507/24 SOB (shortness of breath) 03/17/20152019 Abdominal pain, unspecified site 04/03/2012 10/14/2013 Bipolar I disorder, most rec ent episode (or current) mixed, mild 03/27/2006 04/16/2008 Anxiety state, unspecified 03/27/200604/16 Panic disorder without agoraphobia 03/27/2006 04/16/2008 documented as of this encounter (statuses as of 09/30/2021) [facility] History of Past illness Narrative* Problem Noted Date Resolved Date Community acquired pneumonia 03/17/2015 Bilateral pleural effusion 03/17/201507/24 SOB (shortness of breath) 03/17/20152019 Abdominal pain, unspecified site 04/03/2012 10/14/2013 Bipolar I disorder, most rec ent episode (or current) mixed, mild 03/27/2006 04/16/2008 Anxiety state, unspecified 03/27/200604/16 Panic disorder without agoraphobia 03/27/2006 04/16/2008 documented as of this encounter (statuses as of 10/07/2021) [facility] History of Past illness Narrative* Problem Noted Date Resolved Date Community acquired pneumonia 03/17/2015 Bilateral pleural effusion 03/17/201507/24 SOB (shortness of breath) 03/17/20152019 Abdominal pain, unspecified site 04/03/2012 10/14/2013 Bipolar I disorder, most rec ent episode (or current) mixed, mild 03/27/2006 04/16/2008 Anxiety state, unspecified 03/27/200604/16 Panic disorder without agoraphobia 03/27/2006 04/16/2008 documented as of this encounter (statuses as of 10/21/2021) [facility] History of Past illness Narrative* Problem Noted Date Resolved Date Community acquired pneumonia 03/17/2015 Bilateral pleural effusion 03/17/201507/24 SOB (shortness of breath) 03/17/20152019 Abdominal pain, unspecified site 04/03/2012 10/14/2013 Bipolar I disorder, most rec ent episode (or current) mixed, mild 03/27/2006 04/16/2008 Anxiety state, unspecified 03/27/200604/16 Panic disorder without agoraphobia 03/27/2006 04/16/2008 documented as of this encounter (statuses as of 02/21/2022) [facility] History of Past illness Narrative* Problem Noted Date Resolved Date Community acquired pneumonia 03/17/2015 Bilateral pleural effusion 03/17/201507/24 SOB (shortness of breath) 03/17/20152019 Abdominal pain, unspecified site 04/03/2012 10/14/2013 Bipolar I disorder, most rec ent episode (or current) mixed, mild 03/27/2006 04/16/2008 Anxiety state, unspecified 03/27/200604/16 Panic disorder without agoraphobia 03/27/2006 04/16/2008 documented as of this encounter (statuses as of 02/28/2022) [facility] History of Past illness Narrative* Problem Noted Date Resolved Date Community acquired pneumonia 03/17/2015 Bilateral pleural effusion 03/17/201507/24 SOB (shortness of breath) 03/17/20152019 Abdominal pain, unspecified site 04/03/2012 10/14/2013 Bipolar I disorder, most rec ent episode (or current) mixed, mild 03/27/2006 04/16/2008 Anxiety state, unspecified 03/27/200604/16 Panic disorder without agoraphobia 03/27/2006 04/16/2008 documented as of this encounter (statuses as of 02/28/2022) [facility] History of Past illness Narrative* Problem Noted Date Resolved Date Community acquired pneumonia 03/17/2015 Bilateral pleural effusion 03/17/201507/24 SOB (shortness of breath) 03/17/20152019 Abdominal pain, unspecified site 04/03/2012 10/14/2013 Bipolar I disorder, most rec ent episode (or current) mixed, mild 03/27/2006 04/16/2008 Anxiety state, unspecified 03/27/200604/16 Panic disorder without agoraphobia 03/27/2006 04/16/2008 documented as of this encounter (statuses as of 04/25/2022) [facility] History of Past illness Narrative* Problem Noted Date Resolved Date Community acquired pneumonia 03/17/2015 Bilateral pleural effusion 03/17/201507/24 SOB (shortness of breath) 03/17/20152019 Abdominal pain, unspecified site 04/03/2012 10/14/2013 Bipolar I disorder, most rec ent episode (or current) mixed, mild 03/27/2006 04/16/2008 Anxiety state, unspecified 03/27/200604/16 Panic disorder without agoraphobia 03/27/2006 04/16/2008 documented as of this encounter (statuses as of 05/02/2022) [facility] History of Past illness Narrative* Problem Noted [...] of this encounter (statuses as of 05/06/2023) [facility] History of Past illness Narrative* Problem Noted Date Diagnosed Date Resolved Date Community acquired pneumonia 03/17/2015 07/24/2019 Bilateral pleural effusion 03/17/2015 0 07/24/2019 Abdominal pain, unspecified site 04/03/2012 10/14/2013 Bipolar I disorder, most rec ent episode (or current) mixed, mild 03/27/2006 04/16/2008 Anxiety state, unspecified 03/27/2006 1 Panic disorder without agoraphobia 03/27/2006 04/16/2008 documented as of this encounter (statuses as of 06/06/2023) [facility] History of Past illness Narrative* Problem Noted Date Diagnosed Date Resolved Date Community acquired pneumonia 03/17/2015 07/24/2019 Bilateral pleural effusion 03/17/2015 0 07/24/2019 Abdominal pain, unspecified site 04/03/2012 10/14/2013 Bipolar I disorder, most rec ent episode (or current) mixed, mild 03/27/2006 04/16/2008 Anxiety state, unspecified 03/27/2006 1 Panic disorder without agoraphobia 03/27/2006 04/16/2008 documented as of this encounter (statuses as of 08/21/2023) [facility] History of Past illness Narrative* Problem Noted Date Diagnosed Date Resolved Date Community acquired pneumonia 03/17/2015 07/24/2019 Bilateral pleural effusion 03/17/2015 0 07/24/2019 Abdominal pain, unspecified site 04/03/2012 10/14/2013 Bipolar I disorder, most rec ent episode (or current) mixed, mild 03/27/2006 04/16/2008 Anxiety state, unspecified 03/27/2006 1 Panic disorder without agoraphobia 03/27/2006 04/16/2008 documented as of this encounter (statuses as of 09/22/2023) [facility] History of Past illness Narrative* Problem Noted Date Diagnosed Date Resolved Date Community acquired pneumonia 03/17/2015 07/24/2019 Bilateral pleural effusion 03/17/2015 0 07/24/2019 Abdominal pain, unspecified site 04/03/2012 10/14/2013 Bipolar I disorder, most rec ent episode (or current) mixed, mild 03/27/2006 04/16/2008 Anxiety state, unspecified 03/27/2006 1 Panic disorder without agoraphobia 03/27/2006 04/16/2008 documented as of this encounter (statuses as of 09/22/2023) [facility] History of Past illness Narrative* Problem Noted Date Diagnosed Date Resolved Date Community acquired pneumonia 03/17/2015 07/24/2019 Bilateral pleural effusion 03/17/2015 0 07/24/2019 Abdominal pain, unspecified site 04/03/2012 10/14/2013 Bipolar I disorder, most rec ent episode (or current) mixed, mild 03/27/2006 04/16/2008 Anxiety state, unspecified 03/27/2006 1 Panic disorder without agoraphobia 03/27/2006 04/16/2008 documented as of this encounter (statuses as of 09/24/2023) [facility] History of Past illness Narrative* Problem Noted Date Diagnosed Date Resolved Date Community acquired pneumonia 03/17/2015 07/24/2019 Bilateral pleural effusion 03/17/2015 0 07/24/2019 Abdominal pain, unspecified site 04/03/2012 10/14/2013 Bipolar I disorder, most rec ent episode (or current) mixed, mild 03/27/2006 04/16/2008 Anxiety state, unspecified 03/27/2006 1 Panic disorder without agoraphobia 03/27/2006 04/16/2008 documented as of this encounter (statuses as of 10/09/2023) [facility] Narrative - ReportedDAMARI RIOS is being seen for a cardiovascular evaluation of palpitations.[facility] Work Phone: Chief complaint Narrative - ReportedDAMARI RIOS is being seen for a cardiovascular evaluation of palpitations.[facility] Work Phone: Chief complaint Narrative - ReportedDAMARI RIOS is being seen for a cardiovascular evaluation of palpitations.[facility] Work Phone: Evaluation + Plan note [facility] Evaluation + Plan note No data available for this section [facility] Evaluation note* Diagnosis Kidney stones- Primary Calculus of kidney documented in this encounter [facility] Diagnosis Screening for genitourinary condition Screening for other and unspecified genitourinary condition documented in this encounter [facility]* Diagnosis Renal calculi Calculus of kidney [facility] Diagnosis Treatment not available- Primary Procedure not carried out for other reasons [facility]* Diagnosis Mild intermittent asthma, unspecified whether complicated [facility] Diagnosis Mild intermittent asthma, unspecified whether complicated documented [facility] this encounter [facility] Other Evaluation note* Diagnosis Cubital tunnel syndrome on left- Primary Lesion of ulnar nerve Laceration of left forearm, sequela documented in this encounter [facility]* Diagnosis NO SHOW- Primary [facility]* Psychological: Cooperative.Extremities: No pitting edema bilat ankles.Gastrointestinal: Soft. Mild,diffuse abdominal tenderness with no guarding. Bowel sounds present.Cardiovascular: RRR.Respiratory/Thorax: CTAB.Eyes: Clear sclera.Constitutional: Patient is alert. NAD. [facility] Diagnosis Breast cancer screening by mammogram- Primary Encounter for annual physical exam Colon cancer screening Special screening for malignant neoplasms, colon Arthritis Unspecified arthropathy, site unspecified Moderate asthma without complication, unspecified whether persistent documented in this encounter [facility] Work Phone: Evaluation note* Diagnosis Colon cancer screening- Primary Special screening for malignant neoplasms, colon Esophageal dysphagia Dysphagia, pharyngoesophageal phase documented in this encounter [facility] Work Phone: Evaluation note* Diagnosis Colon cancer screening- Primary Special screening for malignant neoplasms, colon Esophageal dysphagia Dysphagia, pharyngoesophageal phase documented in this encounter [facility] Work Phone: Evaluation note* Diagnosis Renal calculus, right Calculus of kidney documented in this encounter [facility]* Diagnosis Esophageal dysphagia Dysphagia, pharyngoesophageal phase Colon cancer screening Special screening for malignant neoplasms, colon documented in this encounter [facility] Work Phone: Evaluation note* Diagnosis Adnexal mass- Primary Other specified symptom associated with female genital organs Kidney stone- Primary Calculus of kidney Abdominal pain, unspecified abdominal location Adnexal mass Other specified symptom associated with female genital organs documented in this encounter [facility] Work Phone: Evaluation note* Diagnosis Adnexal mass- Primary Other specified symptom associated with female genital organs Urinary incontinence in female- Primary Adnexal mass Other specified symptom associated with female genital organs documented in this encounter [facility] Work Phone: Evaluation note* Diagnosis History of pulmonary embolism- Primary Personal history of pulmonary embolism documented in this encounter [facility]* Diagnosis Postop check- Primary Follow-up examination, following unspecified surgery documented in this encounter [facility] Work Phone: Evaluation note* Diagnosis Adnexal mass- Primary Other specified symptom associated with female genital organs Adnexal mass Other specified symptom associated with female genital organs Myofascial pain Unspecified myalgia and myositis documented in this encounter [facility] Work Phone: Evaluation note* Diagnosis Other acute pulmonary embolism without acute cor pulmonale (CMS/HCC)- Primary Need for pneumococcal vaccine Need for prophylactic vaccination against streptococcus pneumoniae (pneumococcus) documented in this encounter [facility] Work Phone: Evaluation note* Diagnosis Heart palpitations- Primary Palpitations Essential hypertension Unspecified essential hypertension documented in this encounter [facility] Work Phone: evaluation note* Diagnosis Heart palpitations Palpitations documented in this encounter [facility] Work Phone: Evaluation note* Diagnosis Injury of finger of right hand, initial encounter- Primary documented [facility] this [facility] Diagnosis URI, acute- Primary Acute upper respiratory infections of unspecified site Sore throat Acute pharyngitis documented in this encounter [facility]* Diagnosis Acute bilateral low back pain with right-sided sciatica- Primary documented in this encounter [facility]* Diagnosis Preop examination- Primary Preoperative examination, unspecified Kidney stone Calculus of kidney Uncomplicated asthma, unspecified asthma severity, unspecified whether persistent Cough Preoperative examination- Primary Preoperative examination, unspecified Renal calculus, right Calculus of kidney Uncomplicated asthma, unspecified asthma severity, unspecified whether persistent Anxiety Anxiety state, unspecified Injury of finger of right hand, initial encounter [facility]* Diagnosis Preop examination- Primary Preoperative examination, unspecified Kidney stone Calculus of kidney Uncomplicated asthma, unspecified asthma severity, unspecified whether persistent Cough Preoperative examination- Primary Preoperative examination, unspecified Renal calculus, right Calculus of kidney Uncomplicated asthma, unspecified asthma severity, unspecified whether persistent Anxiety Anxiety state, unspecified Cough [facility]* Diagnosis Preop examination- Primary Preoperative examination, unspecified Kidney stone Calculus of kidney Uncomplicated asthma, unspecified asthma severity, unspecified whether persistent Cough Preoperative examination- Primary Preoperative examination, unspecified Renal calculus, right Calculus of kidney Uncomplicated asthma, unspecified asthma severity, unspecified whether persistent Anxiety Anxiety state, unspecified Acute otitis media, right- Primary Unspecified otitis media documented in this encounter [facility] note* Diagnosis Preop examination- Primary Preoperative examination, unspecified Kidney stone Calculus of kidney Uncomplicated asthma, unspecified asthma severity, unspecified whether persistent (HCC) Cough Preoperative examination- Primary Preoperative examination, unspecified Renal calculus, right Calculus of kidney Uncomplicated asthma, unspecified asthma severity, unspecified whether persistent (HCC) Anxiety Anxiety state, unspecified Sinobronchitis- Primary Unspecified sinusitis (chronic) Moderate persistent asthmatic bronchitis with acute exacerbation (HCC) documented in this encounter [facility] note* Diagnosis Preop examination- Primary Preoperative examination, unspecified Kidney stone Calculus of kidney Uncomplicated asthma, unspecified asthma severity, unspecified whether persistent (HCC) Cough Preoperative examination- Primary Preoperative examination, unspecified Renal calculus, right Calculus of kidney Uncomplicated asthma, unspecified asthma severity, unspecified whether persistent (HCC) Anxiety Anxiety state, unspecified Maxillary sinusitis, unspecified chronicity- Primary documented in this encounter [facility] Narrative - Reported* Type Description Date Medical History anxiety Medical History Low back pain Medical History Right shoulder dislocation. Medical History ASTHMA Surgical History GALLBLADDER REMOVAL Surgical History BTL Surgical History T&A Surgical History STENT FOR KIDNEY STONES- SINCE REMOVED Surgical History RIGHT OVARIAN CYST REMOVED 2014 Surgical History TVH 03/01/17 Hospitalization History PNEUMONIA 2014 [facility]. Other History of Present illness Narrative* This is a pleasant 45-year-old female who presents to the pain clinic at [facility], with history of chronic upper mid and [...] had back injections by a physician in [place] in 2015. 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 Her pain affects her activities of daily living and her work. She however rates quality of her social life is average with current treatment. [facility] Work Phone: Hospital course [facility] Hospital Discharge instructions* Activity:activity as tolerated. * [...] course of antibioticsIncorporate rest periods with activity [facility] Additional Instructions Continue your ltyw-qtz-zoerwqj medications as needed for pain. Return with increased difficulty breathing, new or worsening symptoms.[facility] Work Phone: Hospital Discharge instructions Additional Instructions [...] care physician for further outpatient evaluation and management.[facility] Work Phone: Hospital Discharge instructions Additional Instructions Your x-ray showed no acute fracture or dislocation indicating your pain is secondary to soft tissue and bone bruising. Continue to ice the area to reduce pain and speed healing and take ienm-ycj-cyvlyne medication for pain control. Follow-up with Workmen's Comp. for repeat evaluation and return to the ER should you have any further concernsWooBarn[facility] Work Phone: Reason for referral (narrative)* Outpatient Procedure (Routine) - Authorized Specialty Diagnoses / Procedures Referred By Shaye vieyra Referred To Contact [facility] Diagnoses Cubital tunnel syndrome on left Procedures EMG(NEURO/NI) NERVE CONDUCTION STUDIES 9-10 STUDIES Aristeo Maldonado PA-C [address] [place] [address] [facility] [place] [address] [place] [address] Referral ID Status Reason Start Date Expiration Date Visits Requested Visits Authorized [id number] Authorized Auto-Generat ed Referral 2 07/01/2022 1 1 [facility] for referral (narrative)* Diagnostic Procedure Only (Urgent) - Closed Specialty Diagnoses / Procedures Referred By Shaye vieyra Referred To Contact XR IMAGING Diagnoses Injury of finger of right hand, initial encounter Procedures XR DIGIT GENERAL 3V FRONTAL/LAT/OBL RIGHT RADEX FINGR MINIMUM 2 VIEWS Justyn Maldonado APRN.MECHANICAL INSPECTOR [address] [place] [address] [place] [address] Referral ID Status Reason Start Date Expiration Date V isits Requested Visits Authorized [id number] Closed Auto-Generate d Referral 09/22/2023 10/21/2024 1 1 [facility] for referral (narrative)* Diagnostic Procedure Only (Urgent) - Closed Specialty Diagnoses / Procedures Referred By Contac t Referred To Contact XR IMAGING Diagnoses Injury of finger of right hand, initial encounter Procedures XR DIGIT GENERAL 3V FRONTAL/LAT/OBL RIGHT RADEX FINGR MINIMUM 2 VIEWS Justyn Maldonado APRN.MECHANICAL INSPECTOR [address] [place] [address] [place] [address] Referral ID Status Reason Start Date Expiration Date V isits Requested Visits Authorized [id number] Closed Auto-Generate d Referral 09/22/2023 10/21/2024 1 1 [facility] for referral (narrative)No reason for referral information availableWTr[facility] Work Phone: Reqblt for visit Narrative* Diagnostic Procedure Only (Urgent) - Closed Specialty Diagnoses / Procedures Referred By Contac t Referred To Contact XR IMAGING Diagnoses Injury of finger of right hand, initial encounter Procedures XR DIGIT GENERAL 3V FRONTAL/LAT/OBL RIGHT RADEX FINGR MINIMUM 2 VIEWS Justyn Maldonado APRN.MECHANICAL INSPECTOR [address] [place] [address] [place] [address] Referral ID Status Reason Start Date Expiration Date V isits Requested Visits Authorized [id number] Closed Auto-Generate d Referral 09/22/2023 10/21/2024 1 1 [facility] Family History No Family History Records FoundUnknown [...] FoundDocuments on File Type Date Recorded Patient Project Inspector Expl anation Advance Directive(s) 06/19/2019 2:32 PM Date Activated Date Inactivated Comments 08/14/2023 11:00 PM 08/16/2023 11:26 AM Question Answer Comments Full Code Order Discussed With: Patient Documents on File Type Date Recorded Patient Project Inspector Expl anation Advance Directive(s) 04/06/2021 9:37 AM Advance Directive(s) 07/04/2019 3:48 PM Advance Directive(s) 07/01/2019 10:34 AM Advance Directive(s) 06/19/2019 2:32 PM Documents on File Type Date Recorded Patient Project Inspector Expl anation Advance Directive(s) 04/06/2021 9:37 AM Advance Directive(s) 07/04/2019 3:48 PM Advance Directive(s) 07/01/2019 10:34 AM Advance Directive(s) 06/19/2019 2:32 PM Documents on File Type Date Recorded Patient Project Inspector Expl anation Advance Directive(s) 06/19/2019 2:32 PM [...] No March 24, 2024 8:49am Power of Photocopying 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 No March 8:49am Living Will No May 05 2:51pm Power of Photocopying 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 No May 05, 2024 2:51pm Living Will No June 07 5:13pm Power of Photocopying 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 No June 07, 2024 5:13pm Living Will No June 18, 2 024 10:37am Power of Photocopying 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 No June 18, 2024 10:37am Living Will No June 28 024 2:42am Power of Photocopying 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 No June 28, 2024 2:42am Living Will No July 30 5:55pm Power of Photocopying 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 No July 30, 2024 5:55pm Living Will No September 04, 2024 2:47pm Power of Photocopying 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 No September 04 2:47pm Living Will No May 09 2:43pm Power of Photocopying 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 No May 09, 2024 2:43pm Living Will No August 11 2 025 5:32pm Power of Photocopying 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 No August 11, 2024 5:32pm Advance Directives No January 28 11:29am Advance Directive Response Recorded Date/ Time Living Will No June 07 6:13pm Power of Photocopying 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 No June 07, 2024 6:13pm Living Will No June 18, 2 024 11:37am Power of Photocopying 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 No June 18, 2024 11:37am Living Will No June 28 3:42am Power of Photocopying 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 No June 28, 2024 3:42am Living Will No July 30 6:55pm Power of Photocopying 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 No July 30, 2024 6:55pm Living Will No September 04, 2024 3:47pm Power of Photocopying 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 No September 04 3:47pm Living Will No August 11 6:32pm Power of Photocopying 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 No August 11, 2024 6:32pm Advance Directives No January 28 12:29pm Advance Directive Response Recorded Date/ Time Living Will No June 07 6:13pm Do you have a Healthcare Power of Photocopying 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? No June 07, 2024 6:13pm Living Will No June 18 11:37am Do you have a Healthcare Power of Photocopying 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? No June 18, 2024 11:37am Living Will No June 28 3:42am Do you have a Healthcare Power of Photocopying 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? No June 28, 2024 3:42am Living Will No July 30 6:55pm Do you have a Healthcare Power of Photocopying 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? No July 30, 2024 6:55pm Living Will No September 04, 2024 3:47pm Do you have a Healthcare Power of Photocopying 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? No September 04, 2024 3:47pm Living Will No September 24, 2024 10:41pm Do you have a Healthcare Power of Photocopying 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? No September 24, 2024 10:41pm Living Will No August 11 6:32pm Do you have a Healthcare Power of Photocopying 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? No August 11, 2024 6:32pm Advance Directives No January 28 12:29pm Advance Directive Response Recorded Date/ Time Living Will No June 07 6:13pm Do you have a Healthcare Power of Photocopying 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? No June 07, 2024 6:13pm Living Will No June 18 11:37am Do you have a Healthcare Power of Photocopying 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? No June 18, 2024 11:37am Living Will No June 28 3:42am Do you have a Healthcare Power of Photocopying 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? No June 28, 2024 3:42am Living Will No July 30 6:55pm Do you have a Healthcare Power of Photocopying 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? No July 30, 2024 6:55pm Living Will No September 04, 2024 3:47pm Do you have a Healthcare Power of Photocopying 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? No September 04, 2024 3:47pm Living Will No September 24, 2024 10:41pm Do you have a Healthcare Power of Photocopying 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? No September 24, 2024 10:41pm Living Will No August 11 6:32pm Do you have a Healthcare Power of Photocopying 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? No August 11, 2024 6:32pm Living Will No October 01, 2024 9:37pm Do you have a Healthcare Power of Photocopying 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? No October 01, 2024 9:37pm Advance Directives No January 28 12:29pm Advance Directive Response Recorded Date/ Time Living Will No June 28 3:42am Do you have a Healthcare Power of Photocopying 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? No June 28, 2024 3:42am Living Will No July 30 6:55pm Do you have a Healthcare Power of Photocopying 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? No July 30, 2024 6:55pm Living Will No September 04, 2024 3:47pm Do you have a Healthcare Power of Photocopying 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? No September 04, 2024 3:47pm Living Will No September 24, 2024 10:41pm Do you have a Healthcare Power of Photocopying 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? No September 24, 2024 10:41pm Living Will No August 11 6:32pm Do you have a Healthcare Power of Photocopying 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? No August 11, 2024 6:32pm Living Will No October 01, 2024 9:37pm Do you have a Healthcare Power of Photocopying 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? No October 01, 2024 9:37pm Advance Directives No October 21 12:54pm Advance Directive Response Recorded Date/ Time Advance Directives No October 21 12:54pm Living Will No July 30 6:55pm Do you have a Healthcare Power of Photocopying 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? No July 30, 2024 6:55pm Living Will No September 04, 2024 3:47pm Do you have a Healthcare Power of Photocopying 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? No September 04, 2024 3:47pm Living Will No September 24, 2024 10:41pm Do you have a Healthcare Power of Photocopying 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? No September 24, 2024 10:41pm Do you have a Healthcare Power of Photocopying 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? No October 23, 2024 12:21pm Living Will No August 11 6:32pm Do you have a Healthcare Power of Photocopying 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? No August 11, 2024 6:32pm Living Will No October 01, 2024 9:37pm Do you have a Healthcare Power of Photocopying 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? No October 01, 2024 9:37pm Advance Directive Response Recorded Date/ Time Advance Directives No October 21 12:54pm Living Will No September 04, 2024 3:47pm Do you have a Healthcare Power of Photocopying 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? No September 04, 2024 3:47pm Living Will No September 24, 2024 10:41pm Do you have a Healthcare Power of Photocopying 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? No September 24, 2024 10:41pm Do you have a Healthcare Power of Photocopying 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? No October 23, 2024 12:21pm Do you have a Healthcare Power of Photocopying 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? No November 30, 2024 4:23pm Living Will No August 11 6:32pm Do you have a Healthcare Power of Photocopying 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? No August 11, 2024 6:32pm Living Will No October 01, 2024 9:37pm Do you have a Healthcare Power of Photocopying 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? No October 01, 2024 9:37pm Advance Directive Response Recorded Date/ Time Advance Directives No October 21 12:54pm Living Will No September 04, 2024 3:47pm Do you have a Healthcare Power of Photocopying 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? No September 04, 2024 3:47pm Living Will No September 24, 2024 10:41pm Do you have a Healthcare Power of Photocopying 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? No September 24, 2024 10:41pm Do you have a Healthcare Power of Photocopying 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? No October 23, 2024 12:21pm Do you have a Healthcare Power of Photocopying 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? No November 30, 2024 4:23pm Do you have a Healthcare Power of Photocopying 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? No December 04, 2024 6:20am Living Will No August 11 6:32pm Do you have a Healthcare Power of Photocopying 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? No August 11, 2024 6:32pm Living Will No October 01, 2024 9:37pm Do you have a Healthcare Power of Photocopying 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? No October 01, 2024 9:37pm Advance Directive Response Recorded Date/ Time Advance Directives No October 21 025 12:54pm Living Will No September 04, 2024 3:47pm Do you have a Healthcare Power of Photocopying 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? No September 04, 2024 3:47pm Living Will No September 24, 2024 10:41pm Do you have a Healthcare Power of Photocopying 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? No September 24, 2024 10:41pm Do you have a Healthcare Power of Photocopying 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? No October 23, 2024 12:21pm Do you have a Healthcare Power of Photocopying 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? No November 30, 2024 4:23pm Do you have a Healthcare Power of Photocopying 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? No December 04, 2024 6:20am Living Will No October 01, 2024 9:37pm Do you have a Healthcare Power of Photocopying 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? No October 01, 2024 9:37pm Advance Directive Response Recorded Date/ Time Advance Directives No October 21 025 12:54pm Living Will No September 24, 2024 10:41pm Do you have a Healthcare Power of Photocopying 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? No September 24, 2024 10:41pm Do you have a Healthcare Power of Photocopying 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? No October 23, 2024 12:21pm Do you have a Healthcare Power of Photocopying 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? No November 30, 2024 4:23pm Do you have a Healthcare Power of Photocopying 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? No December 04, 2024 6:20am Living Will No October 01, 2024 9:37pm Do you have a Healthcare Power of Photocopying 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? No October 01, 2024 9:37pm Reason for Referral Specialty Diagnoses / Procedures Referred By Contdavid t Referred To Contact CT IMAGING Diagnoses Kidney stones Procedures CT FLANK WO IVCON CT ABD & PELVIS W/O CONTRAST Marin Gutierrez MD [address] [place] [address] Ct Imaging Referral ID Status Reason Start Date Expiration Date Visits Requested Visits Authorized [id number] Authorized Auto-Generat ed Referral 09/26/2021 11/25/2021 1 1 Reason EVAL AND TREAT // ul ed nerve injury? R1 03/21/22 Diagnosis 1 Laceration of forear m, left (S51.812A) Referral Organization [facility] Referring Provider First Name AIDAN Referring Provider Last Name ALYSSA Referring Provider Specialty Family Prac jamie Referred Provider Fazal Raphael ( [facility]) Referred Provider Specialty Orthopedic S urgery [...] Diagnoses Colon cancer screening Procedures Colonoscopy Screening MN COLONOSCOPY FLX DX W/COLLJ SPEC WHEN PFRMD MN COLON CA SCRN NOT HI RSK IND MN COLORECTAL SCRN; HI RISK IND MN COLONOSCOPY W/BIOPSY SINGLE/MULTIPLE MN COLSC FLX W/RMVL OF TUMOR POLYP LESION SNARE TQ MN COLSC FLX W/REMOVAL LESION BY HOT BX FORCEPS Blayne Weeks MD [address] [address] Referral ID Status Reason Start Date Expiration Date V isits Requested Visits Authorized [id number] Pending Review 03/20/2023 09/16/2023 1 1 Specialty Diagnoses / Procedures Referred By Shaye vieyra Referred To Contact Radiology Diagnoses Breast cancer screening by mammogram Procedures BI mammo bilateral screening tomosynthesis Blayne Weeks MD [address] [address] Referral ID Status Reason Start Date Expiration Date Visits Requested Visits Authorized [id number] Authorized Perform Procedure 03/20/2023 09/16/2023 1 1 Specialty Diagnoses / Procedures [facility] To Contact Gastroenterology Diagnoses Esophageal dysphagia Colon cancer screening Procedures Colonoscopy Screening MN COLONOSCOPY FLX DX W/COLLJ SPEC WHEN PFRMD MN COLON CA SCRN NOT HI RSK IND MN COLORECTAL SCRN; HI RISK IND MN COLONOSCOPY W/BIOPSY SINGLE/MULTIPLE MN COLSC FLX W/RMVL OF TUMOR POLYP LESION SNARE TQ MN COLSC FLX W/REMOVAL L[place]ION [place] [address] [place] [address] Referral ID Status Reason Start Date Expiration Date V isits Requested Visits Authorized [id number] Pending Review 04/05/2023 10/02/2023 1 1 Specialty Diagnoses / Procedures Referred By Contact Referred To Contact Gastroenterology Diagnoses Esophageal dysphagia Colon cancer screening Procedures EGD MN ESOPHAGOGASTRODUODENOSCOPY TRANSORAL DIAGNOSTIC MN EGD TRANSORAL BIOPSY SINGLE/[place] [address] [place] [address] Referral ID Status Reason Start Date Expiration Date V isits Requested Visits Authorized [id number] Pending Review 04/05/2023 10/02/2023 1 1 Referral ID Status Reason Start Date Expiration Date V isits Requested Visits Authorized [id number] Authorized 04/05/2023 10/02/2023 1 1 Referral ID Status Reason Start Date Expiration Date V isits Requested Visits Authorized [id number] Authorized 04/05/2023 10/02/2023 1 1 Specialty Diagnoses / Procedures Referred By Contac t Referred To Contact Cardiology Diagnoses Heart palpitations Procedures Holter Or Event Process Owner de Lul Thomas, [employer]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 [address] [facility] [place] [address] Referral ID Status Reason Start Date Expiration Date V isits Requested Visits Authorized [id number] Pending Review 08/06/2023 08/05/2024 1 1 Referral ID Status Reason Start Date Expiration Date V isits Requested Visits Authorized [id number] Authorized 08/06/2023 08/05/2024 1 1 Chief Complaint [...] 2024 3:18p m Chief Complaint Admit Date OVARIAN CYST August 11, 2024 4:22pm edema [...] upper ex November 30, 2024 3:24p m AFIB (Self) December 02, 2024 1:17p m left leg injury December 04, 2024 6:15a m Reason for Visit Admit Date Lumbar radiculopathy November 04, 2024 2:40p m Gastritis November 13, 2024 3:18p m IBS (irritable bowel syndrome) November 13, 2024 3:18pm Nausea November 13, 2024 3:18p m Abdominal pain November 13, 2024 3:18p m Abdominal symptoms November 13, 2024 3:18p m Heart palpitations December 02, 2024 1:17p m Pulmonary embolism December 02, 2024 1:17p m Hypertension December 02, 2024 1:17p m Chief Complaint Admit Date injury, rolled- [...] upper ex November 30, 2024 3:24p m AFIB (Self) December 02, 2024 1:17p m Chief Complaint Admit Date sciatica of the right leg August 29, [...] upper ex November 30, 2024 3:24p m AFIB (Self) December 02, 2024 1:17p m left leg injury December 04, 2024 6:15a m Left foot injury left ankle injury December 15, 2024 3:40pm 1 Month f/u December 16, 2024 3:24 pm Reason for Visit Admit Date Lumbar radiculopathy November 04, 2024 2:40p m Gastritis November 13, 2024 3:18p m IBS (irritable bowel syndrome) November 13, 2024 3:18pm Nausea November 13, 2024 3:18p m Abdominal pain November 13, 2024 3:18p m Abdominal symptoms November 13, 2024 3:18p m Heart palpitations December 02, 2024 1:17p m Pulmonary embolism December 02, 2024 1:17p m Hypertension December 02, 2024 1:17p m Gastritis December 16, 2024 3:24 pm IBS (irritable bowel syndrome) November 3:24pm Nausea December 16, 2024 3:24 pm Chief Complaint Admit Date ABDOMINAL PAIN September 24, 2024 9:3 8pm PVD September 25, 2024 1:5 3pm Leg pain October 01, 2024 9:22 pm LT LEG DVT October 17, 2024 9:5 0am N/V/D October 23, 2024 11: 36am LUMBAR SPINE November 04, 2024 2:40pm Room 3 November 04, 2024 2:53pm Abdominal complaints November 13, 2024 3:18 pm upper ex November 30, 2024 3:24p m AFIB (Self) December 02, 2024 1:17p m left leg injury December 04, 2024 6:15a m Left foot injury left ankle injury December 15, 2024 3:40pm 1 Month f/u December 16, 2024 3:24 pm AFIB January 13, 2025 1:01 pm VENOUS INSUFFICIENCY, EDEMA January 14, 2 025 12:29pm Chief Complaint Admit Date ABDOMINAL PAIN September 24, 2024 9:3 8pm PVD September 25, 2024 1:5 3pm Leg pain October 01, 2024 9:22 pm LT LEG DVT October 17, 2024 9:5 0am N/V/D October 23, 2024 11: 36am LUMBAR SPINE November 04, 2024 2:40pm Room 3 November 04, 2024 2:53pm Abdominal complaints November 13, 2024 3:18 pm upper ex November 30, 2024 3:24p m AFIB (Self) December 02, 2024 1:17p m left leg injury December 04, 2024 6:15a m Left foot injury left ankle injury December 15, 2024 3:40pm 1 Month f/u December 16, 2024 3:24 pm AFIB January 13, 2025 1:01 pm VENOUS INSUFFICIENCY, EDEMA January 14, 2 025 12:29pm 1 Month f/u January 20, 2025 3:08 pm Reason for Visit Admit Date Lumbar radiculopathy November 04, 2024 2:40p m Gastritis November 13, 2024 3:18p m IBS (irritable bowel syndrome) November 13, 2024 3:18pm Nausea November 13, 2024 3:18p m Abdominal pain November 13, 2024 3:18p m Abdominal symptoms November 13, 2024 3:18p m Heart palpitations December 02, 2024 1:17p m Pulmonary embolism December 02, 2024 1:17p m Hypertension December 02, 2024 1:17p m Gastritis December 16, 2024 3:24 pm IBS (irritable bowel syndrome) November 3:24pm Nausea December 16, 2024 3:24 pm Gastritis January 20, 2025 3:08 pm IBS (irritable bowel syndrome) December 3:08pm Additional Source Comments Source Comments (unrecognize d section and content) In the event this informatio n is protected by the Federal Confidentiality of Alcohol and Drug Abuse Patient Records regulations: The Federal rules restrict any use of the information to criminally investigate or prosecute any alcohol or drug abuse patient.[facility], IncIn the event this information is protected by the Federal Confidentiality of Alcohol and Drug Abuse Patient Records regulations: The Federal rules restrict any use of the information to criminally investigate or prosecute any alcohol or drug abuse patient.[facility], IncIn the event this information is protected by the Federal Confidentiality of Alcohol and Drug Abuse Patient Records regulations: The Federal rules restrict any use of the information to criminally investigate or prosecute any alcohol or drug abuse patient.[facility], IncIn the event this information is protected by the Federal Confidentiality of Alcohol and Drug Abuse Patient Records regulations: The Federal rules restrict any use of the information to criminally investigate or prosecute any alcohol or drug abuse patient.[facility], IncIn the event this information is protected by the Federal Confidentiality of Alcohol and Drug Abuse Patient Records regulations: The Federal rules restrict any use of the information to criminally investigate or prosecute any alcohol or drug abuse patient.[facility], IncIn the event this information is protected by the Federal Confidentiality of Alcohol and Drug Abuse Patient Records regulations: The Federal rules restrict any use of the information to criminally investigate or prosecute any alcohol or drug abuse patient.[facility], IncIn the event this information is protected by the Federal Confidentiality of Alcohol and Drug Abuse Patient Records regulations: The Federal rules restrict any use of the information to criminally investigate or prosecute any alcohol or drug abuse patient.[facility], IncIn the event this information is protected by the Federal Confidentiality of Alcohol and Drug Abuse Patient Records regulations: The Federal rules restrict any use of the information to criminally investigate or prosecute any alcohol or drug abuse patient.[facility], IncIn the event this information is protected by the Federal Confidentiality of Alcohol and Drug Abuse Patient Records regulations: The Federal rules restrict any use of the information to criminally investigate or prosecute any alcohol or drug abuse patient.[facility], IncIn the event this information is protected by the Federal Confidentiality of Alcohol and Drug Abuse Patient Records regulations: The Federal rules restrict any use of the information to criminally investigate or prosecute any alcohol or drug abuse patient.[facility], IncIn the event this information is protected by the Federal Confidentiality of Alcohol and Drug Abuse Patient Records regulations: The Federal rules restrict any use of the information to criminally investigate or prosecute any alcohol or drug abuse patient.[facility], IncIn the event this information is protected by the Federal Confidentiality of Alcohol and Drug Abuse Patient Records regulations: The Federal rules restrict any use of the information to criminally investigate or prosecute any alcohol or drug abuse patient.[facility], IncIn the event this information is protected by the Federal Confidentiality of Alcohol and Drug Abuse Patient Records regulations: The Federal rules restrict any use of the information to criminally investigate or prosecute any alcohol or drug abuse patient.[facility], IncIn the event this information is protected by the Federal Confidentiality of Alcohol and Drug Abuse Patient Records regulations: The Federal rules restrict any use of the information to criminally investigate or prosecute any alcohol or drug abuse patient.[facility], IncIn the event this information is protected by the Federal Confidentiality of Alcohol and Drug Abuse Patient Records regulations: The Federal rules restrict any use of the information to criminally investigate or prosecute any alcohol or drug abuse patient.[facility], IncIn the event this information is protected by the Federal Confidentiality of Alcohol and Drug Abuse Patient Records regulations: The Federal rules restrict any use of the information to criminally investigate or prosecute any alcohol or drug abuse patient.[facility], IncIn the event this information is protected by the Federal Confidentiality of Alcohol and Drug Abuse Patient Records regulations: The Federal rules restrict any use of the information to criminally investigate or prosecute any alcohol or drug abuse patient.[facility], IncIn the event this information is protected by the Federal Confidentiality of Alcohol and Drug Abuse Patient Records regulations: The Federal rules restrict any use of the information to criminally investigate or prosecute any alcohol or drug abuse patient.[facility], IncIn the event this information is protected by the Federal Confidentiality of Alcohol and Drug Abuse Patient Records regulations: The Federal rules restrict any use of the information to criminally investigate or prosecute any alcohol or drug abuse patient.[facility], IncIn the event this information is protected by the Federal Confidentiality of Alcohol and Drug Abuse Patient Records regulations: The Federal rules restrict any use of the information to criminally investigate or prosecute any alcohol or drug abuse patient.[facility], IncIn the event this information is protected by the Federal Confidentiality of Alcohol and Drug Abuse Patient Records regulations: The Federal rules restrict any use of the information to criminally investigate or prosecute any alcohol or drug abuse patient.[facility], IncIn the event this information is protected by the Federal Confidentiality of Alcohol and Drug Abuse Patient Records regulations: The Federal rules restrict any use of the information to criminally investigate or prosecute any alcohol or drug abuse patient.[facility], IncIn the event this information is protected by the Federal Confidentiality of Alcohol and Drug Abuse Patient Records regulations: The Federal rules restrict any use of the information to criminally investigate or prosecute any alcohol or drug abuse patient.[facility], IncIn the event this information is protected by the Federal Confidentiality of Alcohol and Drug Abuse Patient Records regulations: The Federal rules restrict any use of the information to criminally investigate or prosecute any alcohol or drug abuse patient.[facility], IncIn the event this information is protected by the Federal Confidentiality of Alcohol and Drug Abuse Patient Records regulations: The Federal rules restrict any use of the information to criminally investigate or prosecute any alcohol or drug abuse patient.[facility], IncIn the event this information is protected by the Federal Confidentiality of Alcohol and Drug Abuse Patient Records regulations: The Federal rules restrict any use of the information to criminally investigate or prosecute any alcohol or drug abuse patient.[facility], IncIn the event this information is protected by the Federal Confidentiality of Alcohol and Drug Abuse Patient Records regulations: The Federal rules restrict any use of the information to criminally investigate or prosecute any alcohol or drug abuse patient.[facility] Care Teams (unrecognized sec tion and content) Framing Manager Relationship Specialty Start Date End Date Kimberly Cason MD [address] [place] [address] [address] [place] [phone] PCP - General Internal Medicine 01/21/21 Framing Manager Relationship Specialty Start Date End Date Kimberly Cason MD [address] [facility] [address] [place] [phone] PCP - General Internal Medicine 01/21/21 Framing Manager Relationship Specialty Start Date End Date Kimberly Cason MD [address] [place] [phone] PCP - General Internal Medicine 01/21/21 Framing Manager Relationship Specialty Start Date End Date Kimberly Cason MD [address] [place] [address] [facility] [address] [place] [phone] PCP - General Internal Medicine 01/21/21 Framing Manager Relationship Specialty Start Date End Date Kimberly Cason MD [address] [place] [address] [facility] [address] [place] [phone] PCP - General Internal Medicine 01/21/21 Framing Manager Relationship Specialty Start Date End Date Kimberly Cason MD [address] [place] [address] [facility] [address] [place] [phone] PCP - General Internal Medicine 01/21/21 Framing Manager Relationship Specialty Start Date End Date Kimberly Cason MD [address] [place] [address] [facility] [address] [place] [phone] PCP - General Internal Medicine 01/21/21 Framing Manager Relationship Specialty Start Date End Date Kimberly Cason MD [address] [place] [address] [facility] [address] [place] [phone] PCP - General Internal Medicine 01/21/21 Framing Manager Relationship Specialty Start Date End Date Kimberly Cason MD [address] [address] [place] [phone] PCP - General Internal Medicine 01/21/21 Framing Manager Relationship Specialty Start Date End Date Kimberly Cason MD [address] [facility] [address] [place] [phone] PCP - General Internal Medicine 01/21/21 Framing Manager Relationship Specialty Start Date End Date Francisco Cason MD [address] [place] [facility] [address] [place], [place] [id number] PCP - General 11/16/20 Francisco Cason MD [address] [facility] [address] [place] [address] [facility]22 Roxana Price Die Attaching Machine TenderPoly Packer And Heat Sealer 03/15/23 Framing Manager Relationship Specialty Start Date End Date Francisco Cason MD [address] [place] [address] [facility] [address] [place] [address] PCP - General 11/16/20 Francisco Cason MD [address] [place] [address] [facility] [address] [place] [address] [facility] 07/02/22 Roxana Price Die Attaching Machine TenderPoly Packer And Heat Sealer 03/15/23 Framing Manager Relationship Specialty Start Date End Date Francisco Cason [facility] [address] [place] [facility] [address] [place] [address] [facility] 07/02/22 Blayne Weeks MD [address] [address] PCP - General Internal Medicine 03/08/23 Roxana Price Die Attaching Machine TenderPoly Packer And Heat Sealer 03/15/23 04/16/23 Framing Manager Relationship Specialty Start Date End Date Kimberly Cason MD [address] [facility] [address] [place] [phone] PCP - General Internal Medicine 01/21/21 Framing Manager Relationship Specialty Start Date End Date Francisco Cason MD [address] [place] [address] [facility] [address] [place] [address] PCP - [facility] PCP 07/02/22 Blayne Weeks MD [address] [address] PCP - General Internal Medicine 03/08/23 Framing Manager Relationship Specialty Start Date End Date Francisco Cason MD [address] [place] [facility] [address] [place] [address] PCP - [facility] PCP 07/02/22 Blayne Weeks MD [address] [address] PCP - General Internal Medicine 03/08/23 Framing Manager Relationship Specialty Start Date End Date Francisco Cason MD [address] [place] [place] [facility] [address] [place] [address] PCP - [facility] PCP 07/02/22 Blayne Weeks MD [address] [address] PCP - General Internal Medicine 03/08/23 Framing Manager Relationship Specialty Start Date End Date Kimberly Cason MD [address] [facility] [address] [place] [phone] PCP - General Internal Medicine 01/21/21 Framing Manager Relationship Specialty Start Date End Date Blayne Weeks MD [address] [address] PCP - General Internal Medicine 03/08/23 Framing Manager Relationship Specialty Start Date End Date Blayne Weeks MD [address] [address] PCP - General Internal Medicine 03/08/23 Framing Manager Relationship Specialty Start Date End Date Blayne Weeks MD [address] [address] PCP - General Internal Medicine 03/08/23 Framing Manager Relationship Specialty Start Date End Date Blayne Weeks MD [address] [address] PCP - General Internal Medicine 03/08/23 Framing Manager Relationship Specialty Start Date End Date [facility] 06/07/23 Framing Manager Relationship Specialty Start Date End Date Blayne Weeks MD [address] [address] PCP - General Internal Medicine 03/08/23 Aidan Shah DO [address] [address] PCP - [facility] Medicaid PCP 07/02/23 Framing Manager Relationship Specialty Start Date End Date [facility] 06/07/23 Framing Manager Relationship Specialty Start Date End Date [facility] 06/07/23 Framing Manager Relationship Specialty Start Date End Date [facility] 06/07/23 Framing Manager Relationship Specialty Start Date End Date [facility] 06/07/23 Framing Manager Relationship Specialty Start Date End Date [facility] 06/07/23 Framing Manager Relationship Specialty Start Date End Date Dwayne Stephens MD [address] [place] [address] PCP - General Internal Medicine 03/05/24 Dwayne Stephens MD [address] [place] [address] Referring Internal Medicine 03/05/24 [facility] 06/07/23 Team Status: Active Member Role Status Oscar Stephens MD Primary Care Provider Active Team Status: Inactive Member Role Status Oscar Stephens MD Primary Care Provider Active St art: May 07, 2024 End: May 07, 2024 Dwayne Stephens MD Referring Provider Active Start : May 07, 2024 End: May 07, 2024 Rachel Art NP, GUSSET FOLDER-C Attending Provider Active Start: May 07, 2024 [...] 2024 End: June 03, 2024 Rachel Art GUSSET FOLDER, GUSSET FOLDER-C Attending Provider Active Start: June 03, 2024 End: June 03, 2024 Rachel Art GUSSET FOLDER, GUSSET FOLDER-C Referring Provider Active Start: June 03, 2024 [...] 2024 End: August 11, 2024 Rachel Art GUSSET FOLDER, GUSSET FOLDER-C Attending Provider Active Start: August 11, 2024 End: August 11, 2024 Rachel Art GUSSET FOLDER, GUSSET FOLDER-C Referring Provider Active Start: August 11, 2024 [...] End: October 17, 2024 Dwayne Stephens MD Referring [...] Active Start : October 17, 2024 Dr. Sumanth Patino MD [...] November 30, 2024 End: November 30, 2024 Team Status: Inactive Member Role Status Oscar Stephens MD Primary Care Provider Active St art: December 02, 2024 End: December 02, 2024 Dwayne Stephens MD Referring Provider Active Start : December 02, 2024 End: December 02, 2024 Dr. Ellis Irizarry MD Attending Provider Active Start: December 02, 2024 End: December 02, 2024 Team Status: Inactive Member Role Status Oscar Stephens MD Primary Care Provider Active St art: December 04, 2024 End: December 04, 2024 Dr. Jovani Thurman DO Emergency Provider Active Start: December 04, 2024 End: December 04, 2024 Team Status: Inactive Member Role Status Oscar Stephens MD Primary Care Provider Active St art: November 30, 2024 End: November 30, 2024 Eulogio Acuña MD Attending Provider Active Star t: November 30, 2024 End: November 30, 2024 Eulogio Acuña MD Emergency Provider Active Star t: November 30, 2024 End: November 30, 2024 Team Status: Inactive Member Role Status Oscar Stephens MD Primary Care Provider Active St art: December 04, 2024 End: December 04, 2024 Dr. Jovnai Thurman DO Attending Provider Active Start: December 04, 2024 End: December 04, 2024 Dr. Jovani Thurman DO Emergency Provider Active Start: December 04, 2024 End: December 04, 2024 Team Status: Active Member Role Status Oscar Stephens MD Primary Care Provider Active St art: December 15, 2024 Dwayne Stephens MD Attending Provider Active Start : December 15, 2024 Dwayne Stephens MD Referring Provider Active Start : December 15, 2024 Team Status: Inactive Member Role Status Oscar Stephens MD Primary Care Provider Active St art: December 16, 2024 End: December 16, 2024 Dwayne Stephens MD Referring Provider Active Start : December 16, 2024 End: December 16, 2024 HUSSEIN Bae Attending Provider Active Start: December 16, 2024 End: December 16, 2024 Team Status: Inactive Member Role Status Oscar Stephens MD Primary Care Provider Active St art: December 15, 2024 End: December 15, 2024 Dwayne Stephens MD Attending Provider Active Start : December 15, 2024 End: December 15, 2024 Dwayne Stephens MD Referring Provider Active Start : December 15, 2024 End: December 15, 2024 Team Status: Active Member Role/Relationship Status Oscar Stephens MD Primary Care Provider Active Team Status: Inactive Member Role/Relationship Status Oscar Stephens MD Primary Care Provider [...] September 25, 2024 Team Status: Inactive Member Role/Relationship Status Oscar Stephens MD Primary Care Provider Active St art: September 25, 2024 End: September 25, 2024 Dwayne Stephens MD Attending Provider Active Start : September 25, 2024 End: September 25, 2024 Dwayne Stephens MD Referring Provider Active Start : September 25, 2024 End: September 25, 2024 Team Status: Active Member Role/Relationship Status Oscar Stephens MD Primary Care Provider Active St art: September 25, 2024 Dwayne Stephens MD Referring Provider Active Start : September 25, 2024 Dr. Sumanth Patino MD Attending Provider Active S tart: September 25, 2024 Team Status: Inactive Member Role/Relationship Status Oscar Stephens MD Primary Care Provider Active St art: October 01, 2024 End: October 01, 2024 Dr. Albert Sykes DO Attending Provider Active Start: October 01, 2024 End: October 01, 2024 Dr. Albert Sykes DO Emergency Provider Active Start: October 01, 2024 End: October 01, 2024 Team Status: Inactive Member Role/Relationship Status Oscar Stephens MD Primary Care Provider Active St art: October 16, 2024 End: October 16, 2024 Dwayne Stephens MD Attending Provider Active Start : October 16, 2024 End: October 16, 2024 Dwayne Stephens MD Referring Provider Active Start : October 16, 2024 End: October 16, 2024 Team Status: Inactive Member Role/Relationship Status Oscar Stephens MD Primary Care Provider Active St art: October 17, 2024 End: October 17, 2024 Dwayne Stephens MD Attending Provider Active Start : October 17, 2024 End: October 17, 2024 Dwayne Stephens MD Referring Provider Active Start : October 17, 2024 End: October 17, 2024 Team Status: Active Member Role/Relationship Status Oscar Stephens MD Primary Care Provider Active St art: October 17, 2024 Dwayne Stephens MD Referring Provider Active Start : October 17, 2024 Dr. Sumanth Patino MD Attending Provider Active S tart: October 17, 2024 Team Status: Inactive Member Role/Relationship Status Oscar Stephens MD Primary Care Provider Active St art: October 23, 2024 End: October 23, 2024 Dr. Neeta Gonzales DO Attending Provider Active Start: October 23, 2024 End: October 23, 2024 Dr. Neeta Gonzales DO Emergency Provider Active Start: October 23, 2024 End: October 23, 2024 Team Status: Inactive Member Role/Relationship Status Oscar Stephens MD Primary Care Provider Active St art: November 04, 2024 End: November 04, 2024 Dwayne Stephens MD Referring Provider Active Start : November 04, 2024 End: November 04, 2024 HUSSEIN Melgoza Attending Provider Active Star t: November 04, 2024 End: November 04, 2024 Team Status: Inactive Member Role/Relationship Status Oscar Stephens MD Primary Care Provider Active St art: November 04, 2024 End: November 04, 2024 Dr. Duran Miller MD Attending Provider Active S tart: November 04, 2024 End: November 04, 2024 Team Status: Inactive Member Role/Relationship Status Oscar Stephens MD Primary Care Provider Active St art: November 13, 2024 End: November 13, 2024 Dwayne Stephens MD Referring Provider Active Start : November 13, 2024 End: November 13, 2024 HUSSEIN Bae Attending Provider Active Start: November 13, 2024 End: November 13, 2024 Team Status: Inactive Member Role/Relationship Status Oscar Stephens MD Primary Care Provider Active St art: November 30, 2024 End: November 30, 2024 Eulogio Acuña MD Attending Provider Active Star t: November 30, 2024 End: November 30, 2024 Eulogio Acuña MD Emergency Provider Active Star t: November 30, 2024 End: November 30, 2024 Team Status: Inactive Member Role/Relationship Status Oscar Stephens MD Primary Care Provider Active St art: December 02, 2024 End: December 02, 2024 Dwayne Stephens MD Referring Provider Active Start : December 02, 2024 End: December 02, 2024 Dr. Ellis Irizarry MD Attending Provider Active Start: December 02, 2024 End: December 02, 2024 Team Status: Inactive Member Role/Relationship Status Oscar Stephens MD Primary Care Provider Active St art: December 04, 2024 End: December 04, 2024 Dr. Jovani Thurman DO Attending Provider Active Start: December 04, 2024 End: December 04, 2024 Dr. Jovani Thurman DO Emergency Provider Active Start: December 04, 2024 End: December 04, 2024 Team Status: Inactive Member Role/Relationship Status Oscar Stephens MD Primary Care Provider Active St art: December 15, 2024 End: December 15, 2024 Dwayne Stephens MD Attending Provider Active Start : December 15, 2024 End: December 15, 2024 Dwayne Stephens MD Referring Provider Active Start : December 15, 2024 End: December 15, 2024 Team Status: Inactive Member Role/Relationship Status Oscar Stephens MD Primary Care Provider Active St art: December 16, 2024 End: December 16, 2024 Dwayne Stephens MD Referring Provider Active Start : December 16, 2024 End: December 16, 2024 HUSSEIN Bae Attending Provider Active Start: December 16, 2024 End: December 16, 2024 Team Status: Inactive Member Role/Relationship Status Oscar Stephens MD Primary Care Provider Active St art: January 13, 2025 End: January 13, 2025 Dr. Ellis Irizarry MD Attending Provider Active Start: January 13, 2025 End: January 13, 2025 Dr. Ellis Irizarry MD Referring Provider Active Start: January 13, 2025 End: January 13, 2025 HUSSEIN Bae Other Provider Active Star t: January 13, 2025 End: January 13, 2025 Team Status: Active Member Role/Relationship Status Oscar Stephens MD Primary Care Provider Active St art: January 14, 2025 Dr. Ellis Donnelly DPM Attending Provider Active Start: January 14, 2025 Dr. Ellis Donnelly DPM Referring Provider Active Start: January 14, 2025 Team Status: Active Member Role/Relationship Status Oscar Stephens MD Primary Care Provider Active St art: January 14, 2025 Dr. Sumanth Patino MD Attending Provider Active S tart: January 14, 2025 Team Status: Inactive Member Role/Relationship Status Oscar Stephens MD Primary Care Provider Active St art: January 14, 2025 End: January 14, 2025 Dr. Ellis Donnelly DPM Attending Provider Active Start: January 14, 2025 End: January 14, 2025 Dr. Ellis Donnelly DPM Referring Provider Active Start: January 14, 2025 End: January 14, 2025 Team Status: Inactive Member Role/Relationship Status Oscar Stephens MD Primary Care Provider Active St art: December 30, 2024 Dr. Anyi Disla MD Attending Provider Active Start: December 30, 2024 Team Status: Inactive Member Role/Relationship Status Dates Dwayne Stephens MD Primary Care Provider Active St art: January 13, 2025 End: January 13, 2025 Dr. Ellis Irizarry MD Attending Provider Active Start: January 13, 2025 End: January 13, 2025 Dr. Ellis Irizarry MD Referring Provider Active Start: January 13, 2025 End: January 13, 2025 HUSSEIN Bae Other Provider Active Star t: January 13, 2025 End: January 13, 2025 Team Status: Inactive Member Role/Relationship Status Oscar Stephens MD Primary Care Provider Active St art: January 14, 2025 End: January 14, 2025 Dr. Ellis Donnelly DPM Attending Provider Active Start: January 14, 2025 End: January 14, 2025 Dr. Ellis Donnelly DPM Referring Provider Active Start: January 14, 2025 End: January 14, 2025 Team Status: Active Member Role/Relationship Status Oscar Stephens MD Primary Care Provider Active St art: January 14, 2025 Dr. Sumanth Patino MD Attending Provider Active S tart: January 14, 2025 Team Status: Inactive Member Role/Relationship Status Oscar Stephens MD Primary Care Provider Active St art: January 20, 2025 End: January 20, 2025 Dwayne Stephens MD Referring Provider Active Start : January 20, 2025 End: January 20, 2025 HUSSEIN Bae Attending Provider Active Start: January 20, 2025 End: January 20, 2025 Framing Manager Relationship Specialty Start Date End Date Dwayne Stephens MD [address] [place] [address] PCP - General Internal Medicine 03/05/24 Dwayne Stephens MD [address] [facility] [address] [place] [address] Referring Internal Medicine 03/05/24 [facility] Community Resource 06/07/23 Reason for Visit (unrecogniz [...] dysphagia Colon cancer screening Procedures Colonoscopy Screening MN COLONOSCOPY FLX DX W/COLLJ SPEC WHEN PFRMD MN COLON CA SCRN NOT HI RSK IND MN COLORECTAL SCRN; HI RISK IND MN COLONOSCOPY W/BIOPSY SINGLE/MULTIPLE MN COLSC FLX W/RMVL OF TUMOR POLYP LESION SNARE TQ MN COLSC FLX W/REMOVAL L[place]ION [place] [address] [place] [address] Referral ID Status Reason Start Date Expiration Date V isits Requested Visits Authorized [id number] Authorized 04/05/2023 10/02/2023 1 1 Reason Comments Abdominal Pain Right side abd pain with known ovarian cyst. Pt states pain increasing. Pt has nausea Reason Comments Urinary Incontinence Reason Comments Dyspnea On Exertion Specialty Diagnoses / Procedures Referred By Contac t Referred To Contact Diagnoses Pulmonary embolism, unspecified chronicity, unspecified pulmonary embolism type, unspecified whether acute cor pulmonale present (HCC) Procedures [facility] [place] [address] [place] [address] Referral ID Status Reason Start Date Expiration Date Visits Re quested Visits Authorized [id number] 1 1 Specialty Diagnoses / Procedures Referred By Parulac t Referred To Contact Diagnoses Adnexal mass Adnexal mass [N94.89] Procedures [place] OOPHORECTOMY PARTIAL/TOTAL UNI/BI LAPAROSCOP[place] [address] [facility], [address] [place] [address] [address] [place] [address] [place] [address] Referral ID Status Reason Start Date Expiration Date Visits Re quested Visits Authorized [id number] 1 1 Reason Comments URI Recent PE-06/07. Now URI, negative covid test today. States recent exposure to RSV Reason Comments Hypertension Reason Comments Follow Up Phone Call Post Discharge F/U - attempt made. No answer. Specialty Diagnoses / Procedures Referred By Shaye vieyra Referred To Contact Cardiology Diagnoses Heart palpitations Procedures Holter Or Event Process Owner de Lul Thomas, FU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 [address] [facility] [place] [address] Referral ID Status Reason Start Date Expiration Date V isits Requested Visits Authorized [id number] Authorized 08/06/2023 08/05/2024 1 1 Reason Comments [...] ear pa in, [place], ST x1 week Reason Comments Nasal Congestion drainage, right ear pain x 1 week Reason Comments Cough Congestion, right ea r pain x 2 weeks Goals (unrecognized section and content) INFORMATION SOURCE (unrecogn ized section and content) DATE CREATED AUTHOR 03/29/2022 [employer] [facility] DATE CREATED AUTHOR AUTHOR'S ORGANIZ ATION 03/19/2023 [facility] DATE CREATED AUTHOR AUTHOR'S ORGANIZ ATION 03/21/2023 [facility] DATE CREATED AUTHOR AUTHOR'S ORGANIZ ATION 05/06/2023 [facility] DATE CREATED AUTHOR AUTHOR'S ORGANIZ ATION 05/30/2023 [facility] DATE CREATED AUTHOR AUTHOR'S ORGANIZ ATION 06/17/2023 [facility] DATE CREATED AUTHOR AUTHOR'S ORGANIZ ATION 07/12/2023 [facility] DATE CREATED AUTHOR AUTHOR[facility]S [facility]IZ ATION [facility] DATE CREATED AUTHOR AUTHOR'S ORGANIZ ATION 03/15/2024 [facility] DATE CREATED AUTHOR AUTHOR'S ORGANIZ ATION 12/19/2024 [facility] DATE CREATED AUTHOR AUTHOR'S ORGANIZ ATION 01/28/2025 [facility] DATE CREATED AUTHOR AUTHOR'S ORGANIZ ATION 02/11/2025 [facility] <item> Privacy Markings (unrecogniz ed section and [...] On Sun05/14/23 at 1720, For 1 dose 173 (Given - Provid er: Dasha Dunn RN) pantoprazole (ProtoNix) injection 40 mg (COMPLETED) 40 mg, intravenous, Once, On Sun05/14/23 at 1720, For 1 dose, Reconstitute with 10 mL sodium chloride 0.9% for injection. Push over 2 minutes. 173 (Given - Provid er: Dasha Dunn RN) sodium chloride 0.9 % bolus 1,000 mL (COMPLETED) 1,000 mL, intravenous, at 2,000 mL/hr, Administer over 30 Minutes, Once, On Sun05/14/23 at 1720, For 1 dose 173 (New Bag - Prov ider: Dasha Dunn RN)180 (Stopped - Provider: Dasha Dunn RN) sucralfate (Carafate) suspension 1 g 1 g, oral, Every 6 hours scheduled, First dose on Sun05/14/23 at 1910, SHAKE WELL 1924 (Given - Provid er: Dasha Dunn RN) Scheduled Medication Order 05/26/2023 05/27/2023 05/28/2023 alum-mag hydroxide-simeth (Mylanta) 200-200-20 mg/5 mL oral suspension 30 mL (COMPLETED) 30 mL, oral, Once, On Sun05/28/23 at 1630, For 1 dose, Recovery & On Unit, FOR PACU GERD SYMPTOMS 1627 (Given - Provid er: Amanda Oneill RN) [...] Wound Infection 1239 (Given - Provid er: Judy De La Fuente APRN-MOTOR EQUIPMENT CAPTAIN) famotidine PF (Pepcid) injection 20 mg (COMPLETED) 20 mg, intravenous, Once, On Sun05/28/23 at 1030, For 1 dose, Preprocedure 1119 (Given - Provid er: Audra Aleman RN) gentamicin (Garamycin) 270 mg in dextrose 5 % in water (D5W) 100 mL IV (COMPLETED) 270 mg (rounded from 273.5 mg = 5 mg/kg 54.7 kg [place] weight), intravenous, at 100 mL/hr, Administer over 60 Minutes, Once, On Sun05/28/23 at 1215, For 1 dose, Intraprocedure, Dosing of this medication varies based on severity of illness. Does this patient have sepsis or concern for sepsis (probable or documented infection plus systemic manifestations of infection)? No, Suspected Indication (Select all that apply): Surgical Wound Infection 1247 (New Bag - Prov ider: Judy De La Fuente APRN-MOTOR EQUIPMENT CAPTAIN)1347 (Stopped - Provider: Judy De La Fuente APRN-WEI) hydrALAZINE (Apresoline) injection 2.6 mg (COMPLETED) 2.6 [...] Amanda Oneill RN)1457 (Given - Provider: Amanda Oneill RN)1514 (Given - Provider: Amanda Oneill RN)1535 (Given - Provider: Amanda Oneill, RN)1630 (Given - Provider: Amanda Oneill, YUNI) ondansetron [...] BE BASED ON THE PRIMARY CLINICAL RECORDS. [facility]. provides no warranty or guarantee of the accuracy or completeness of information in this document.
[2025-03-02 20:44] LABS: Differential Indicated SCAN CRITERIA MET
[2025-03-02 20:47] LABS: Red Cell Morphology NORM C+C NORMAL (NORM C&C)
--- NOTE | 2025-03-02 20:49 | ED.VIS.CHEST ---
HPI History of Present Illness Chief Complaint: Chest Pain Informant: patient Onset/Context/Timing Onset: Days Activity at onset: gradual Timing: Continuous Quality: Positive for Aching Location: Substernal, Right Parasternal and Left Parasternal Current Severity: Mild Maximum Severity: Mild Worsened By: Nothing Associated Symptoms: Positive for Dyspnea and Acid Reflux; Negative for Nausea, Vomiting, Diaphoresis, Cough, Fever, Lightheadedness or Palpitations Narrative Narrative: 49-year-old female history of pulmonary emboli on Eliquis but does admit that she missed a couple doses of her Eliquis within the last 10 days. No prior cardiac history she is diagnosed with POTS she had a negative heart cath 3 years ago. States she has chest pain since Sunday feels like heartburn but she says she takes antireflux medication does not believe it is that. She is not diabetic. She denies any hemoptysis no leg pain or swelling. Her prior blood clot was after surgery she developed a PE. No clotting disorder that she is aware of. Recently did travel to [place]. Has had no recent hospitalization or surgery. Nothing particular makes the pain better or worse. Prior Similar Symptoms: Yes Recent Illness/Hospitalization: No CVD Risk Factors: Negative for Hypertension, Diabetes or Hypercholesterolemia PE Risk Factors: Positive for Recent Travel/Surgery; Negative for Prior DVT or PE, Cancer or OCP + Smoking + >/=35 TAD Risk Factors: Negative for Marfan's Syndrome, Hypertension or Family History [facility] Medical History Peripheral vascular disease Urinary tract infection Flank pain Anemia Easy bruising Restless legs History of stress test Wears glasses Post-menopausal Pulmonary embolism History of IBS Gastric reflux Non-smoker Asthma Cardiology follow-up encounter Hypertension Home Medications ?Medication ?Instructions ?Recorded ?Last Taken ?Type apixaban 5 mg tablet (Eliquis) 5 mg PO BID blood thinner 12/04/23 06/16/24 History pantoprazole 40 mg tablet,delayed 40 mg PO BID #90 tabs 11/13/24 Unknown Rx release famotidine 20 mg tablet 20 mg PO QDAY 11/26/24 Unknown History potassium chloride 10 mEq 10 meq PO QDAY 11/26/24 Unknown History capsule,extended release amlodipine 10 mg tablet 10 mg PO DAILY 12/02/24 Unknown History colestipol 1 gram tablet 1 g PO ONCE #60 tabs 12/16/24 Unknown Rx carvedilol 6.25 mg tablet 6.25 mg PO BID heart #180 tabs 01/28/25 Unknown Rx ondansetron 4 mg disintegrating 4 mg PO Q8H PRN PRN Nausea #10 tabs 02/02/25 Unknown Rx tablet Allergy/AdvReac Type Severity Reaction Status Date / Time Penicillins Allergy Anaphylaxis Verified 03/02/25 20:07 naproxen (From Naprosyn) AdvReac Unknown Nausea Verified 03/02/25 20:07 codeine AdvReac Nausea Verified 03/02/25 20:07 Family History Brother Asthma Grandmother Diabetes Myocardial infarction Father Hypertension Mother Uterine cancer Surgical History History of cystoscopy History of cardiac catheterization History of laparoscopic cholecystectomy History of bladder surgery History of hysterectomy Social History housing: house Smoking Status: Never smoker alcohol intake: never substance use type: does not use caffeine: Yes ROS ROS ED ROS Narrative Chest pain. Not exertional. Pleuritic. No hemoptysis. Constitutional Constitutional ED: Denies chills or fever(s) Eyes Eyes: Reports none ENT ENT ED: Denies ear pain Cardiovascular Cardiovascular: Reports as per HPI and chest pain; Denies palpitations or racing heartbeat Respiratory/Chest Respiratory/Chest: Reports dyspnea Gastrointestinal Gastrointestinal: Denies abdominal pain Genitourinary Genitourinary ED: Denies dysuria or hematuria Musculoskeletal Musculoskeletal: Denies arthralgias, back pain, myalgias or neck pain Integumentary Denies abscess or Abrasions Neurologic Neurologic: Denies headache(s) Psychiatric Psychiatric: Denies anxiety or depression Endocrine Endocrinology: Denies cold intolerance Hematologic/Lymphatic Hematologic/Lymphatic: Denies easy bleeding, easy bruising or lymphadenopathy Allergic/Immunologic Allergic/Immunologic ED: Denies mouth swelling, tongue swelling or urticaria EXAM Physical Exam Narrative Exam Narrative: Well-appearing middle-aged female. Vital signs stable initial blood pressure elevated 183/113. Pulse ox is 99% on room air no hypoxia. H EENT exam pupils round react light. Motions are intact. Neck nontender no JVD. Lungs clear to auscultation bilaterally. Heart regular rhythm rate about 70 no murmur. Chest wall and ribs no significant tenderness. No ecchymosis or bruising. No subcu air or crepitus. Multiple tattoos. Abdomen soft nontender normal bowel sounds without peritoneal signs. Moving all 4 extremities. 5-5 category consultant strength. Equal symmetrical radial pulse. Calves nontender no edema no cords. Dorsi plantarflexion intact. Back nontender. Neurologically she is awake alert. Answering questions following commands. No focal motor deficits. Const Vital Signs: 03/02/25 20:05 03/02/25 20:20 03/02/25 21:21 Temperature 98.4 F Temperature Source Temporal Pulse Rate 72 76 Respiratory Rate 18 18 Blood Pressure 183/113 H 133/92 H Blood Pressure Mean 136 105 Pulse Ox 99 100 98 Oxygen Delivery Method Room Air Room Air Room Air 03/02/25 23:12 Temperature Temperature Source Pulse Rate 77 Respiratory Rate Blood Pressure Blood Pressure Mean Pulse Ox Oxygen Delivery Method Positive well nourished and well developed; Negative for cachectic, contractures or unkempt General Appearance ED: well developed and NAD; Negative for unkempt, cachectic, contractures or pallor Nutritional Appearance: Negative for cachectic HEENT Reports moist mucous membranes normocephalic and atraumatic Eyes PERRL and EOMs intact bilaterally General Eye ED: Negative for pale conjunctiva or scleral icterus Neck no lymphadenopathy, supple and no JVD General: Negative for tenderness Chest Wall inspection of chest normal and palpation of chest normal Resp normal respiratory effort and clear to auscultation bilaterally Cardio regular rhythm, S1 normal heart sound, S2 normal heart sound and no murmurs Peripheral Pulses: pulses 2+ throughout GI normal to inspection, nondistended, normoactive bowel sounds, soft to palpation, non-tender and non-distended Back/Spine no CVA tenderness and no thoracic nor lumbar tenderness Extremity normal to inspection General Extremety ED: Negative for edema, pulses abnormal or tenderness General Extremity: Negative for edema or pulses abnormal Neuro oriented x3 and CN's II-XII intact bilaterally Sensorium / Orientation: awake, alert, oriented to person, oriented to place and oriented to time Motor Exam: strength 5/5 throughout Psych mental status grossly normal Appearance: Negative for unkempt Skin no rashes or lesions noted and no wounds General Skin Exam: Negative for jaundice or pallor Rashes: No rashes noted Trauma: Negative for abrasion or laceration Heart Score History: Slightly/Non-Suspicious ECG: Normal Age: >45 - <65 years Risk Factors: No Risk Factors Troponin: </= Normal Limit Score: 1 MDM MDM MDM Narrative Medical decision making narrative: 49-year-old female with atypical nonreproducible chest pain. Clinically it only gets cardiac is not exertional. She had a negative heart cath 3 years ago. He has had a pulmonary emboli before after surgery. She is on blood thinner but she has missed some dosages in the last 10 days. This could also be secondary to reflux. Cardiac workup with a D-dimer. Also she has an elevated blood pressure 183/113. Given that her prior PE I will obtain a CTA of her chest. She will be given a GI cocktail have a cardiac workup. Repeat exam patient is doing well at 10:45 PM. We went over her lab work chest x-ray and EKG were awaiting her CT results. Currently she is resting comfortably the GI cocktail would not give her any relief. I offered but she did not want a thing right now for pain. Pressures improved at 133/92. Repeat exam patient doing well 11:19 PM. Patient be discharged to home chest pain uncertain etiology. History & Record Review Discussion w/independent historian: Patient and Family Additional record(s) reviewed:: Prior inpatient record, Prior outpatient record, Prior ED visit and Prior labs Lab Data Attestation: I reviewed the patient's lab results. Lab results narrative: CBC unremarkable. White count 8. H&H 13 and 38. Platelets 148. Chemistries show sodium 135. Of 10. Normal BUN and creatinine. Glucose 107. Troponin less than 6. 2-hour troponin was less than 6 also. D-dimer = 0.27. CTA chest showed no PE. No dissection no acute abnormality. Labs: Laboratory Results - last 24 hr 03/02/25 03/02/25 03/02/25 20:17 21:25 22:40 WBC 8.0 RBC 4.27 Hgb 13.4 Hct 38.7 MCV 90.6 MCH 31.4 MCHC 34.6 RDW Std Deviation 43.4 RDW Coeff of Bibi 13.3 Plt Count 148 L MPV 9.8 Immature Gran % (Auto) 0.500 Neut % (Auto) 51.9 Lymph % (Auto) 38.9 Glenn % (Auto) 5.7 Eos % (Auto) 2.4 Baso % (Auto) 0.6 Absolute Neuts (auto) 4.2 Absolute Lymphs (auto) 3.12 Nucleated RBC % 0.2 Platelet Estimate ADEQUATE RBC Morphology NORM C+C D-Dimer Quant (PE/DVT) 0.27 Sodium 135 Potassium TNP 4.1 Chloride 104 Carbon Dioxide 21.9 Anion Gap 10 BUN 14 Creatinine 1.00 Estim Creat Clear Calc 75.98 Est GFR (MDRD) Non-Af 70 BUN/Creatinine Ratio 13.6 Glucose 107 H Calcium 9.1 Troponin T High Sens < 6 Troponin T Hi Sens 2 Hr < 6 Radiography Chest X-Ray - ED: 2 View, Read by ED Physician, Read by Radiologist, Normal, Heart, Lungs, Mediastinum, Bony Structures, No Acute Disease and Chronic Changes Diagnostic Testing: Clinical Impression(s) from Imaging Studies Chest X-Ray 03/02/25 20:20 IMPRESSION: Left lower lobe atelectasis. no focal consolidation. Reading Location: [facility] Chest CTA 03/02/25 20:55 IMPRESSION: No acute intrathoracic pathology. No pulmonary arterial emboli. Reading Location: [facility] Chest x-ray, 2 views, AP and lateral, interpreted myself and radiologist. Normal cardiac silhouette. Normal lungs. Atelectasis left base. Rhythm Strip Rhythm Strip: Sinus Rhythm Rate: 66 Ectopy: None EKG Initial EKG: Attestation: I personally reviewed and interpreted this EKG as follows: Interpretation: Sinus Rhythm and No Acute Injury Pattern Comments: Normal sinus rhythm rate of 66 no acute signs of [place] or ischemia. Discharge Plan Triage Chief Complaint: Chest Pain ED Provider: Hugo Kamara Dx/Rx/DC Orders Clinical Impression: Chest pain of uncertain etiology, Hx of pulmonary embolus, Family history of GERD Instructions: ED Chest Pain, Uncertain Cause Prescriptions: No Action potassium chloride 10 mEq capsule, extended release 10 meq PO QDAY famotidine 20 mg tablet 20 mg PO QDAY amlodipine 10 mg tablet 10 mg PO DAILY pantoprazole 40 mg tablet,delayed release (DR/EC) 40 mg PO BID Qty: 90 2RF colestipol 1 gram tablet 1 g PO ONCE Qty: 60 2RF Eliquis 5 mg tablet 5 mg PO BID carvedilol 6.25 mg tablet 6.25 mg PO BID Qty: 180 3RF ondansetron 4 mg tablet,disintegrating 4 mg PO Q8H PRN PRN (Reason: Nausea) Qty: 10 0RF Primary Care Provider: Dwayne Dorado Referrals: Dwayne Dorado MD [Primary Care Provider] - 3-5 Days if not improving Activity Restrictions/Additional Instructions: Follow-up with your doctor if not improving. Return if worse. Continue your current medications. Print Language: [place] Irish Disposition Disposition: Home, Self Care
--- NOTE | 2025-03-02 20:55 | CT_ITS ---
PROCEDURE: CTA CHEST W/WO CONTRAST 03/02/2025 REASON FOR EXAM: CP, ELEVATED BP AMD PRIOR PE TECHNIQUE: Procedure Code: [id number] Modality: CT Procedure: CTA CHEST W/WO CONTRAST Multiplanar Sagittal and Coronal images were obtained. 3D post processing was performed. CONTRAST: Isovue 370 VOLUME: 100 mL One or more dose reduction techniques were used (e.g., Automated exposure control, adjustment of the mA and/or kV according to patient size, use of iterative reconstruction technique). RADIATION DOSE SUMMARY: DLP: 538.81 mGycm COMPARISON: CTA chest 05/09/2024. FINDINGS: PULMONARY VESSELS: No filling defects suspicious for pulmonary arterial emboli identified. Normal caliber of the main pulmonary trunk. No evidence of right heart strain. LUNGS/PLEURA: Clear. No airspace consolidation or findings of pulmonary edema. No pneumothorax or pleural effusions. Mild bibasilar dependent atelectasis. Right upper lobe accessory azygos fissure. MEDIASTINUM: Unremarkable. No lymphadenopathy. HEART: Normal in size. No pericardial effusion. No significant coronary artery calcifications. THORACIC AORTA: Normal in course and caliber. No aneurysm or dissection. UPPER ABDOMEN: Hepatomegaly and diffuse hepatic steatosis. Prior cholecystectomy. BONES: Unremarkable. CT/CTA Chest W/WO Contrast IMPRESSION: No acute intrathoracic pathology. No pulmonary arterial emboli. Reading Location: [id number]
[2025-03-02 21:03] LABS: D-Dimer Quantitative (DVT/PE) 0.27 FEU/ug/m (0.27-0.49)
[2025-03-02 21:14] LABS: Anion Gap 10 (5-15); BUN 14 mg/dL (4-19); BUN/Creat Ratio 13.6 RATIO (10-20); Calcium,Total 9.1 mg/dL (7.6-11.0); Carbon Dioxide 21.9 mmol/L (21.0-32.0); Chloride 104 mmol/L (98-108); Estimated Creatinine Clearance 75.98 ml/min (50-250); Glucose 107 mg/dL (70-99); Troponin T High Sensitivity < 6 ng/L (<=14)
[2025-03-02] MEDS: Lidocaine 2% Viscous15 ML UDC 15 ML PO (21:20)
[2025-03-02 21:21] VITALS: BP 133/92; PULSE 76; RESP 18; O2SAT 98
[2025-03-02 22:21] LABS: Potassium 4.1 mmol/L (3.3-5.1)
[2025-03-02 23:12] VITALS: PULSE 77
[2025-03-02 23:14] LABS: Troponin T High Sens 2 HR < 6 ng/L (<=14)
== END 2025-03-02 23:29 | disposition home or self-care (01) ==
PROVIDERS: Emergency Provider Emergency Medicine; PCP Family Medicine; Visit Provider Emergency Medicine
DX: R07.9 Chest pain, unspecified (principal); J45.909 Unspecified asthma, uncomplicated; I10 Essential (primary) hypertension; K21.9 Gastro-esophageal reflux disease without esophagitis; Z79.01 Long term (current) use of anticoagulants; Z79.899 Other long term (current) drug therapy; Z86.711 Personal history of pulmonary embolism
CPT/HCPCS: 71046; 71275; 80048; 84132; 84484; 85025; 85379; 93005; 99284; Q9967; A4216

== ENCOUNTER 2025-03-11 11:18 | Day surgery (SDC) | payer MEDICAID, SELFPAY ==
--- NOTE | 2025-03-09 14:16 | PAT.ANESEVAL ---
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 When Was Last Pacemaker Check QUESTION #4 FULL TEXT: You/Your Family Experience fever (hyperthermia) with Anesthesia Last Oral Intake Last Oral intake: Last Oral Intake NPO since Meds taken in AM with sips of water? Meds patient instructed to take am of surgery PONV PONV - brisket puller: PONV - brisket puller Female Yes 03/09/25 08:34 HX of Motion Sickness No 03/09/25 08:34 HX of N/V After Surgery No 03/09/25 08:34 Non-Smoker Yes 03/09/25 08:34 Duration of Surgery greater No 03/09/25 08:34 than 60 minutes Number of Risk Factors 2 03/09/25 08:34 PONV Score Moderate Risk 03/09/25 08:34 Height & Weight Height & Weight: Anesthesia: Height & Weight Height 5 ft 5 in 12/04/24 06:17 Respiratory Assessment Respiratory Assessment - brisket puller: Respiratory Tract Infection Hx - brisket puller Hx Respiratory Tract Infection No 03/09/25 08:34 STOP Sleep Apnea STOP Sleep Apnea - brisket puller: STOP Sleep Apnea - brisket puller Hx Hypertension Yes: CONTROLLED ON MED 03/09/25 08:34 Hx Sleep Apnea No 03/09/25 08:34 CPAP No 03/09/25 08:34 BIPAP No 03/09/25 08:34 Do you snore loudly (louder No 03/09/25 08:34 than talking or can be heard Do you often feel tired/ No 03/09/25 08:34 fatigued/ sleepy during daytime? Has anyone observed you stop No 03/09/25 08:34 breathing during sleep? STOP Results Negative 03/09/25 08:34 QUESTION #5 FULL TEXT : Do you snore loudly (louder than talking or can be heard through closed doors)? 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 Specify any problems Hx of Preganancy in last 3 No 03/09/25 08:34 Months Nurse Filling Out Transfusion VCHRISTIN 03/09/25 08:34 & Questions: Date: 03/09/25 03/09/25 08:34 Time: 08:36 03/09/25 08:34 Patient unable to answer at this time (ie. confused, unrespo /Reproduction History /Reproductive History - brisket puller: /Reproductive Hx- brisket puller Hx Now No 03/09/25 08:34 Gestational Age (in weeks): EDC: Hx Hx Para Hx Section SAB No 03/09/25 08:34 [facility] Medical History (Updated 03/09/25 @ 08:38 by Remedios Patel) Normal Holter exam History of echocardiogram Peripheral vascular disease Urinary tract infection Flank pain Anemia Easy bruising Restless legs History of stress test Wears glasses Post-menopausal Pulmonary embolism History of IBS Gastric reflux Non-smoker Asthma Cardiology follow-up encounter Hypertension Home Medications ?Medication ?Instructions ?Recorded ?Last Taken ?Type apixaban 5 mg tablet (Eliquis) 5 mg PO BID blood thinner 12/04/23 03/05/25 History pantoprazole 40 mg tablet,delayed 40 mg PO BID #90 tabs 11/13/24 03/05/25 Rx release famotidine 20 mg tablet 20 mg PO QDAY PRN GERD 11/26/24 Unknown History potassium chloride 10 mEq 10 meq PO QDAY 11/26/24 Unknown History capsule,extended release amlodipine 10 mg tablet 10 mg PO DAILY 12/02/24 Unknown History carvedilol 6.25 mg tablet 6.25 mg PO BID heart #180 tabs 01/28/25 Unknown Rx ondansetron 4 mg disintegrating 4 mg PO Q8H PRN PRN Nausea #10 tabs 02/02/25 Unknown Rx tablet albuterol sulfate 2.5 mg/3 mL 2.5 mg inhalation Q4H PRN PRN 03/09/25 Unknown History (0.083 %) solution for nebulization wheezing albuterol sulfate 90 mcg/actuation 2 puff inhalation Q4H PRN PRN 03/09/25 Unknown History aerosol inhaler wheezing fluticasone propionate 50 2 spray intranasal DAILY 03/09/25 Unknown History mcg/actuation nasal spray,suspension Allergy/AdvReac Type Severity Reaction Status Date / Time Penicillins Allergy Anaphylaxis Verified 03/09/25 08:28 naproxen (From Naprosyn) AdvReac Unknown Nausea Verified 03/09/25 08:28 codeine AdvReac Nausea Verified 03/09/25 08:28 Family History Brother Asthma Grandmother Diabetes Myocardial infarction Father Hypertension Mother Uterine cancer Surgical History (Updated 03/09/25 @ 08:34 by Remedios Patel) History of extracorporeal shockwave lithotripsy (ESWL) History of cystoscopy History of cardiac catheterization History of laparoscopic cholecystectomy History of bladder surgery History of hysterectomy Social History housing: house Smoking Status: Never smoker alcohol intake: never substance use type: does not use caffeine: Yes Audit: Pertinent Findings Pertinent Findings EKG Perinent findings: EKG 03/02/2025 sinus rhythm Stress test pertinent findings: Stress test June 06, 2023. Left ventricular is normal in size. Left ventricular systolic function is normal. Low risk scan. LVEF 73%. There is a small area of mild ischemia in the territory of the LAD. Heart catheterization pertinent findings: Heart cath June 08, 2023. Condition stable. Consult pertinent findings: Cardiology visit 12/02/2024. EKG in the office today shows normal sinus rhythm with heart rate 66 bpm and is otherwise unremarkable. Recommend Holter 48-hour monitor. Average heart rate 78 bpm. There were a total of 32 premature supraventricular ectopic isolated beats. No atrial fibrillation noted Recommendation Anesthesia Recommendation Anesthesia recommendation: OPTIMIZED for anesthesia
[2025-03-11] VITALS (23 sets, daily range): BP systolic 98–141; BP diastolic 68–94; PULSE 63–98; RESP 12–18; TEMP 36.3–36.9; O2SAT 89–99; BMI 31.8
[2025-03-11] MEDS: Lactated Ringers 1,000 ML 15 ML IV (11:50)
--- NOTE | 2025-03-11 12:15 | PCM.PRE.AN2 ---
ASA Classification* ASA Classification ASA Classification: 2 Assessment & Plan Anesthesia* Anesthesia Assessment Anesthesia Assessment: Discussed sedation and/or anesthesia options, risks, benefits, and alternatives with patient/parents/legal guardian/POA. Questions invited. The patient/parents/legal guardian/POA seems to understand and agrees to proceed with anesthesia plan. Reviewed the physical assessment, medical history, allergy history and patient home medications list prior to surgery/procedure/anesthetic and documented any changes. Performed airway and anesthesia risk assessments. Anesthesia Type Anesthesia Type: MAC History Source History Obtained from:: Patient and Chart Anesthesia Focused Assessment* Temperature: 97.9 F Pulse Rate: 65 Blood Pressure: 122/83 Respiratory Rate: 17 Pulse Ox: 99 Oxygen Delivery Method: Room Air Airway Assessment Mouth opens: >3 cm Mallampati Score: II Teeth Condition: Chipped/Broken and Missing Neck Range of motion (ROM): Full ROM Labs Anesthesia Preop lab: CBC WBC 8.0 K/mm3 (4.4-11.0) 03/02/25 20:03/02/25 RBC 4.27 M/mm3 (4.2-5.4) 03/02/25 20:17 03/02/25 Hgb 13.4 g/dL (12.0-15.0) 03/02/25 20:17 03/02/25 Hct 38.7 % (37-47) 03/02/25 20:17 03/02/25 Plt Count 148 K/mm3 (150-450) L 03/02/25 20:17 03/02/25 CHEMISTRY Potassium 4.1 mmol/L (3.3-5.1) 03/02/25 21:25 03/02/25 Sodium 135 mmol/L (133-145) 03/02/25 20:17 03/02/25 Magnesium 2.3 mg/dL (1.8-2.4) 01/30/16 06:21 01/30/16 BUN 14 mg/dL (4-19) 03/02/25 20:17 03/02/25 Creatinine 1.00 mg/dL (0.70-1.20) 03/02/25 20:03/02/25 Glucose 107 mg/dL (70-99) H 03/02/25 20:03/02/25 TSH 1.98 uIU/mL (0.358-3.74) 11/15/23 14:07 11/15/23 COAG PT 14.8 SECONDS (11.7-14.9) 06/09/24 05:49 06/09/24 HCG, Quant < 1 mIU/mL (<9 non-preg) 04/27/14 19:40 04/27/14 Urine Test Negative Negative 02/28/15 03:50 02/28/15 Pre-Assessment Diagnosis/Proposed Procedure Planned Operative Procedure(s): EGD Anesthesia History 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 When Was Last Pacemaker Check QUESTION #4 FULL TEXT: You/Your Family Experience fever (hyperthermia) with Anesthesia Last Oral Intake Last Oral intake: Last Oral Intake NPO since 00:00 03/11/25 11:47 Meds taken in AM with sips of No 03/11/25 11:47 water? Meds patient instructed to take am of surgery PONV PONV - package sealer machine: PONV - package sealer machine Female Yes 03/09/25 08:34 HX of Motion Sickness No 03/09/25 08:34 HX of N/V After Surgery No 03/09/25 08:34 Non-Smoker Yes 03/09/25 08:34 Duration of Surgery greater No 03/09/25 08:34 than 60 minutes Number of Risk Factors 2 03/09/25 08:34 PONV Score Moderate Risk 03/09/25 08:34 Height & Weight Height & Weight: Anesthesia: Height & Weight Height 5 ft 5 in 03/11/25 11:47 Weight: 87 kg 03/11/25 11:47 Body Mass Index (BMI) 31.8 03/11/25 11:47 Respiratory Assessment Respiratory Assessment - package sealer machine: Respiratory Tract Infection Hx - package sealer machine Hx Respiratory Tract Infection No 03/09/25 08:34 STOP Sleep Apnea STOP Sleep Apnea - package sealer machine: STOP Sleep Apnea - package sealer machine Hx Hypertension Yes: CONTROLLED ON MED 03/09/25 08:34 Hx Sleep Apnea No 03/09/25 08:34 CPAP No 03/09/25 08:34 BIPAP No 03/09/25 08:34 Do you snore loudly (louder No 03/09/25 08:34 than talking or can be heard Do you often feel tired/ No 03/09/25 08:34 fatigued/ sleepy during daytime? Has anyone observed you stop No 03/09/25 08:34 breathing during sleep? STOP Results Negative 03/09/25 08:34 QUESTION #5 FULL TEXT : Do you snore loudly (louder than talking or can be heard through closed doors)? 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 Specify any problems Hx of Preganancy in last 3 No 03/09/25 08:34 Months Nurse Filling Out Transfusion VCHRISTIN 03/09/25 08:34 & Questions: Date: 03/09/25 03/09/25 08:34 Time: 08:36 03/09/25 08:34 Patient unable to answer at this time (ie. confused, unrespo /Reproduction History /Reproductive History - package sealer machine: /Reproductive Hx- package sealer machine Hx Now No 03/09/25 08:34 Gestational Age (in weeks): EDC: Hx Hx Para Hx Section SAB No 03/09/25 08:34 Active Medications Active Medications: Current Medications Generic Name Dose Route Start Last Admin Trade Name Freq PRN Reason Stop Dose Admin Lactated Ringer's 1,000 mls @ 15 mls/hr 03/11/25 11:30 03/11/25 11:50 IV 15 mls/hr .Q48H CEM Administration PFSH Medical History Normal Holter exam History of echocardiogram Peripheral vascular disease Urinary tract infection Flank pain Anemia Easy bruising Restless legs History of stress test Wears glasses Post-menopausal Pulmonary embolism History of IBS Gastric reflux Non-smoker Asthma Cardiology follow-up encounter Hypertension Home Medications ?Medication ?Instructions ?Recorded ?Last Taken ?Type apixaban 5 mg tablet (Eliquis) 5 mg PO BID blood thinner 12/04/23 03/05/25 History pantoprazole 40 mg tablet,delayed 40 mg PO BID #90 tabs 11/13/24 03/05/25 Rx release famotidine 20 mg tablet 20 mg PO QDAY PRN GERD 11/26/24 Unknown History potassium chloride 10 mEq 10 meq PO QDAY 11/26/24 03/10/25 History capsule,extended release amlodipine 10 mg tablet 10 mg PO DAILY 12/02/24 03/11/25 History carvedilol 6.25 mg tablet 6.25 mg PO BID heart #180 tabs 01/28/25 03/11/25 Rx ondansetron 4 mg disintegrating 4 mg PO Q8H PRN PRN Nausea #10 tabs 02/02/25 Unknown Rx tablet albuterol sulfate 2.5 mg/3 mL 2.5 mg inhalation Q4H PRN PRN 03/09/25 Unknown History (0.083 %) solution for nebulization wheezing albuterol sulfate 90 mcg/actuation 2 puff inhalation Q4H PRN PRN 03/09/25 Unknown History aerosol inhaler wheezing fluticasone propionate 50 2 spray intranasal DAILY 03/09/25 Unknown History mcg/actuation nasal spray,suspension Allergy/AdvReac Type Severity Reaction Status Date / Time Penicillins Allergy Anaphylaxis Verified 03/11/25 11:46 naproxen (From Naprosyn) AdvReac Unknown Nausea Verified 03/11/25 11:46 codeine AdvReac Nausea Verified 03/11/25 11:46 Family History Brother Asthma Grandmother Diabetes Myocardial infarction Father Hypertension Mother Uterine cancer Surgical History History of extracorporeal shockwave lithotripsy (ESWL) History of cystoscopy History of cardiac catheterization History of laparoscopic cholecystectomy History of bladder surgery History of hysterectomy Social History housing: house Smoking Status: Never smoker alcohol intake: never substance use type: does not use caffeine: Yes Review of Systems (Anesthesia) ROS Narrative System reviewed and no additional complaints, except as documented.
--- NOTE | 2025-03-11 12:30 | EGD_PTH ---
PATIENT: LETA RIOS LOC: EN U#:[id number] AGE/SX: 49/F ROOM: RE03/11/[address]: Dr. Jose Hassan DO : 1975 BED: DIS: 03/11/2025 SPEC #: [id number] RECD: 03/11/25 14:44 STATUS: ELO REQ #: [id number] CARLY: 03/11/25 12:[address]: Jose Hassan DEPT: SURGICAL PATHOLOGY RECD BY: Manjinder Terry ENTERED: 03/11/25 15:23 SP TYPE: EGD BIOPSY OTHR DR: Dwayne Dorado MD Tissues: A - Esophagus, NOS B - Gastric mucous membrane C - Duodenum, NOS Procedures: Immunohistochemical Stains Surgery Specimen Level IV HEADER OPERATION: EGD with biopsies PRE-OP DIAGNOSIS: Abdominal pain, GERD TISSUE SUBMITTED: A- Distal esophagus biopsy, B- Gastric antrum biopsy, C- Duodenum biopsy MICROSCOPIC DIAGNOSIS A. Distal esophagus, biopsy: - Squamocolumnar mucosa with reactive changes. - Negative for goblet cell metaplasia. B. Gastric antrum, biopsy: - Oxyntic mucosa with features of reactive gastropathy. - IHC negative for H. pylori organisms. C. Duodenum, biopsy: - Mary Ellen gland hyperplasia. - Negative for increased intraepithelial lymphocytes. MICROSCOPIC DESCRIPTION Slides are reviewed. All matched controls reacted appropriately. These tests were developed and their performance characteristics determined by [facility]. They may not have been cleared or approved by the U.S. Food and Drug Administration. The FDA has determined that such clearance or approval is not necessary. The above immunohistochemical/dualISH markers are reviewed by the Pathologist. GROSS DESCRIPTION A. Received in fixative is one container labeled with the patient's name and designated Distal esophagus biopsy. The specimen consists of three irregular fragments of light shaw soft tissue that measure 0.2 to 0.6 cm. The specimen is totally submitted in one cassette. B. Received in fixative is one container labeled with the patient's name and designated Gastric antrum biopsy. The specimen consists of four irregular fragments of light shaw soft tissue that measure 0.1 to 0.5 cm. The specimen is totally submitted in one cassette. C. Received in fixative is one container labeled with the patient's name and designated Duodenum biopsy. The specimen consists of two irregular fragments of light shaw soft tissue that measure 0.3 and 0.6 cm. The specimen is totally submitted in one cassette. MS 03/11/2025 CPT:31680z5,34489
--- NOTE | 2025-03-11 12:43 | PCM.HP.STD ---
HPI - General General Date of Admission: 03/11/25 Date of Service: 03/11/25 Chief Complaint: abdominal pain and GERD HPI Narrative LETA RIOS, is a 49 F who presents Chief Complaint: abd pain BGI established in Apr 2024 with abd pain nausea and bloating after eating over hte past year. Has been seen in the ED on a few occasion with normal work up. EGD and colonposcy about a year ago with no abnormalities. She is s/p cholecystectomy. Biochemical work up 03.24.24; CBC, CMP wnl CT abdomen/pelvis 03.24.24;1. Stable nonobstructing right kidney stones 2. Prior supracervical hysterectomy. No interval change in small simple cyst of the left ovary measuring 3.84 cm in diameter that does not require any additional imaging. Small parenchymal calcification of the left ovary unchanged. GES 04.17.24; normal EGD 05.08.24; - Normal esophagus. - Bilious gastric fluid. - Bile gastritis. Biopsied. - Erythematous duodenopathy. Biopsied. [facility] ED 10.23.24 with abd pain and vomiting. Work up showing hypokalemia but no other abnormalities. CT abd/pelvis 10.23.24Mild hepatomegaly and diffuse fatty infiltration of the liver. Status post cholecystectomy. OV 5.15.25 Pt continues to have daily nausea, early satiety, and constipation alternating with diarrhea. She continues to take Pantoprazole 40 mg daily and zofran PRN. She will have days with urgent diarrhea after eating and other days with no bm. When she is constipated she will have small hard stools daily. She has diffuse abd cramping which is worse when she is constipated. She has been having issues with kidney stones and had to have some stents placed. At her last urology appointment she had no further stones or issues. Increase PPI to 40 mg BID and add fiber OV 6.17.25 Pt continues to have abd pain, nausea, vomiting and diarrhea. Diarrhea is after each meal. She is nauseous all the time but will only vomiting a few times per week. She continues with PPI. Start Colestipol 1 gram daily. Consider Reglan OV 7.22.25 Pt continues to have diffuse abd pain, bloating and n/v. She did not notice much of a difference with the colestipol. [facility] Medical History Normal Holter exam History of echocardiogram Peripheral vascular disease Urinary tract infection Flank pain Anemia Easy bruising Restless legs History of stress test Wears glasses Post-menopausal Pulmonary embolism History of IBS Gastric reflux Non-smoker Asthma Cardiology follow-up encounter Hypertension Home Medications ?Medication ?Instructions ?Recorded ?Last Taken ?Type apixaban 5 mg tablet (Eliquis) 5 mg PO BID blood thinner 12/04/23 03/05/25 History pantoprazole 40 mg tablet,delayed 40 mg PO BID #90 tabs 11/13/24 03/05/25 Rx release famotidine 20 mg tablet 20 mg PO QDAY PRN GERD 11/26/24 Unknown History potassium chloride 10 mEq 10 meq PO QDAY 11/26/24 03/10/25 History capsule,extended release amlodipine 10 mg tablet 10 mg PO DAILY 12/02/24 03/11/25 History carvedilol 6.25 mg tablet 6.25 mg PO BID heart #180 tabs 01/28/25 03/11/25 Rx ondansetron 4 mg disintegrating 4 mg PO Q8H PRN PRN Nausea #10 tabs 02/02/25 Unknown Rx tablet albuterol sulfate 2.5 mg/3 mL 2.5 mg inhalation Q4H PRN PRN 03/09/25 Unknown History (0.083 %) solution for nebulization wheezing albuterol sulfate 90 mcg/actuation 2 puff inhalation Q4H PRN PRN 03/09/25 Unknown History aerosol inhaler wheezing fluticasone propionate 50 2 spray intranasal DAILY 03/09/25 Unknown History mcg/actuation nasal spray,suspension Allergy/AdvReac Type Severity Reaction Status Date / Time Penicillins Allergy Anaphylaxis Verified 03/11/25 11:46 naproxen (From Naprosyn) AdvReac Unknown Nausea Verified 03/11/25 11:46 codeine AdvReac Nausea Verified 03/11/25 11:46 Family History Brother Asthma Grandmother Diabetes Myocardial infarction Father Hypertension Mother Uterine cancer Surgical History History of extracorporeal shockwave lithotripsy (ESWL) History of cystoscopy History of cardiac catheterization History of laparoscopic cholecystectomy History of bladder surgery History of hysterectomy Social History housing: house Smoking Status: Never smoker alcohol intake: never substance use type: does not use caffeine: Yes ROS Constitutional Constitutional: Denies fatigue, fever(s), poor appetite, weight gain or weight loss Gastrointestinal Gastrointestinal: Denies belching, bloating, change in bowel habits, change in stool character, chewing difficulty, coffee ground emesis, constipation, cramping, diarrhea, dyspepsia, dysphagia, early satiety, excessive flatus, fecal incontinence, heartburn, hematemesis, hematochezia, hemorrhoids, loose stools, melena, nausea, odynophagia, rectal bleeding, tenesmus, vomiting or weight changes Vital Signs Vital Signs Vital Signs: 03/11/25 11:47 03/11/25 11:47 03/11/25 12:17 Temperature 97.9 F 97.9 F Temperature Source Temporal Pulse Rate 65 65 Respiratory Rate 17 17 Respiratory Pattern Normal Blood Pressure 122/83 H 122/83 H Blood Pressure Mean 96 Blood Pressure Source Monitor Blood Pressure Position Semi-Fowlers Blood Pressure Location Right Arm Pulse Ox 99 99 Oxygen Delivery Method Room Air Room Air Weight Weight: 191 lb 12.835 oz Body Mass Index (BMI) 31.8 Physical Exam Const alert, oriented x3, no apparent distress and healthy appearing General Appearance: cooperative GI normal to inspection, nondistended, normoactive bowel sounds, soft to palpation, non-tender and non-distended Percussion: normal to percussion Rectal Exam: deferred Assessment & Plan Assessment/Plan (1) IBS (irritable bowel syndrome): (2) Gastritis: PLAN: Assessment and Plan Assessment and Plan (1) Gastritis: Status: Acute Plan: Melanis ia 49 yo female pt with PMHx of bile gastritis s/p cholecystectomy here today for continued issues with abd pain, n/v and bloating. Pt was stated on Colestipol 1 gram daily which did not help with her symptoms. I have recommend increasing to 2 grams daily. she continues with Pantoprazole 40 mg BID. I have provided samples of voquezna for her to trail. If she has relief of her symptoms will prescribe. Discussed treatment for upper limit of normal GES with Cal however she declines due to side effects. SHe ill undergo repeat EGD to assess her upper GI tract. -Increase colestipol to 2 gram daily -Trial Katt -EGD - (2) IBS (irritable bowel syndrome): Status: Acute
--- NOTE | 2025-03-11 13:11 | OP.EGD_ITS ---
Patient Name: Damari Katz Procedure Date: 03/11/2025 12:48 PM Date of : 1975 Age: 49 Procedure: Upper GI endoscopy Indications: Epigastric abdominal pain, Abdominal pain in the left upper quadrant, Functional Dyspepsia, Indigestion, Heartburn Providers: Jose Hassan DO Referring MD: Dwayne Dorado Md Medicines: Monitored Anesthesia Care Patient Profile: This is a 49 year old female. Refer to note in patient chart for documentation of history and physical. Patient has symptoms of chronic abdominal cramping, chronic abdominal distention, acute epigastric abdominal pain, chronic dyspepsia, chronic heartburn and chronic nausea. Complications: No immediate complications. Procedure: Pre-Anesthesia Assessment: - Prior to the procedure, a History and Physical was performed, and patient medications and allergies were reviewed. The patient is competent. The risks and benefits of the procedure and the sedation options and risks were discussed with the patient. All questions were answered and informed consent was obtained. Patient identification and proposed procedure were verified by the physician in the pre-procedure area. Mental Status Examination: alert and oriented. Airway Examination: normal oropharyngeal airway and neck mobility. Respiratory Examination: clear to auscultation. CV Examination: normal. Prophylactic Antibiotics: The patient does not require prophylactic antibiotics. Prior Anticoagulants: The patient has taken no anticoagulant or antiplatelet agents except for NSAID medication. ASA Grade Assessment: II - A patient with mild systemic disease. After reviewing the risks and benefits, the patient was deemed in satisfactory condition to undergo the procedure. The anesthesia plan was to use monitored anesthesia care (MAC). Immediately prior to administration of medications, the patient was re-assessed for adequacy to receive sedatives. The heart rate, respiratory rate, oxygen saturations, blood pressure, adequacy of pulmonary ventilation, and response to care were monitored throughout the procedure. The physical status of the patient was re-assessed after the procedure. After obtaining informed consent, the endoscope was passed under direct vision. Throughout the procedure, the patient's blood pressure, pulse, and oxygen saturations were monitored continuously. The Endoscope was introduced through the mouth, and advanced to the third part of the duodenum. Small bowel enteroscopy was deemed necessary. The upper GI endoscopy was accomplished without difficulty. The patient tolerated the procedure well. Scope In: 12:59:04 PM Scope Out: 1:02:47 PM Total Procedure Duration Time 0 hours 3 minutes 43 seconds Findings: The Z-line was irregular and was found 40 cm from the incisors. Biopsies were taken with a cold forceps for histology. Bilious fluid was found in the gastric body. Patchy mildly erythematous mucosa without bleeding was found in the gastric body. Biopsies were taken with a cold forceps for histology. Biopsies were taken with a cold forceps for Helicobacter pylori testing. Verification of patient identification for the specimen was done. Estimated blood loss was minimal. Patchy mildly erythematous mucosa without active bleeding and with no stigmata of bleeding was found in the entire duodenum. Biopsies were taken with a cold forceps for histology. Verification of patient identification for the specimen was done. Estimated blood loss was minimal. Impression: - Z-line irregular, 40 cm from the incisors. Biopsied. - Bilious gastric fluid. - Erythematous mucosa in the gastric body. Biopsied. - Erythematous duodenopathy. Biopsied. Recommendation: - Discharge patient to home. - Resume previous diet. - Continue present medications. - Await pathology results. Procedure Code(s): --- Professional --- 93410, Small intestinal endoscopy, enteroscopy beyond second portion of duodenum, not including ileum; with biopsy, single or multiple CPT copyright 2021 [employer]. All rights reserved. The codes documented in this report are preliminary and upon government minister review may be revised to meet current compliance requirements. Jose Hassan DO 03/11/2025 1:11:06 PM This report has been signed electronically. Number of Addenda: 0 Note Initiated On: 03/11/2025 12:48 PM
--- NOTE | 2025-03-11 13:11 | OP.PROVAT_ITS ---
03/11/2025 Dwayne Dorado Md Re : Upper GI endoscopy procedure for Damari Katz [address] This procedure was performed on Tuesday, March 11, 2025. My impressions and recommendations are as follows: Impressions : - Z-line irregular, 40 cm from the incisors. Biopsied. - Bilious gastric fluid. - Erythematous mucosa in the gastric body. Biopsied. - Erythematous duodenopathy. Biopsied. Recommendations : - Discharge patient to home. - Resume previous diet. - Continue present medications. - Await pathology results. My findings are described in the full procedure note, which is enclosed. If I can be of further assistance, please feel free to contact me at . Sincerely, Jose Hassan, 03/11/2025 1:11:06 PM This report has been signed electronically.
--- NOTE | 2025-03-11 13:13 | PCM.POST.ANE ---
Anesthesia: Postop Eval I Current Vital Signs Temperature: 98.5 F Pulse Rate: 89 Blood Pressure: 114/75 Respiratory Rate: 16 Pulse Ox: 95 Oxygen Delivery Method: Room Air Assessment Airway patent: Yes Spontaneous unlabored respirations: Yes Mental status: Awake and Calm nausea: No Vomiting: No Anesthesia Complication: No Fluid Hydration Crystalloid volume administer (ml): 300 Total IV fluid infused: 300 Progress Note Anesthesia document: Postop Eval 1 completed: Yes
--- NOTE | 2025-03-11 13:42 | PCM.POSTANE2 ---
Anesthesia Postop Eval I Sum Postop Eval Completion status Anesthesia document: Postop Eval 1 completed: Yes Anesthesia Postop Eval I Summary Anesthesia Postop Eval I Summary: Anesthesia Postop Eval I: Assessment Summary Airway patent Yes 03/11/25 13:14 [email or web address] Spontaneous unlabored Yes 03/11/25 13:14 [email or web address] respirations Mental status Awake,Calm 03/11/25 13:14 [email or web address] nausea No 03/11/25 13:14 [email or web address] Vomiting No 03/11/25 13:14 [email or web address] Anesthesia Postop Eval I: Fluid Summary Crystalloid volume administer 300 03/11/25 13:14 [email or web address] (ml) Colloids volume administered ( ml) Blood Product volume administered (ml) Total IV fluid infused 300 03/11/25 13:14 [email or web address] Anesthesia Postop Eval I: Summary Notes Anesthesia Complication No 03/11/25 13:14 [email or web address] Anesthesia Complication Comment: Post-operative progress note Anesthesia: Postop Eval II Evaluation Mental status: Awake and Calm Pain Level: 1 nausea: No Vomiting: No Complications Anesthesia Complication: No
[2025-03-11] MEDS: Albuterol 2.5 MG/3 ML VIAL.NEB. INHALATION (14:09)
--- NOTE | 2025-03-11 15:31 | RAD_ITS ---
PROCEDURE: CHEST 1 VIEW (PORTABLE) 03/11/2025 REASON FOR EXAM: SOB Status post EGD procedure with. TECHNIQUE: Frontal view of the chest. COMPARISON: None FINDINGS: Hardware: EKG electrodes are seen. Heart: The heart size is normal. Lungs: The lungs are clear. Bones: The bones are unremarkable. Other: RAD/Chest 1 View (Portable) IMPRESSION: No Acute Findings. Reading Location: [id number]
[2025-03-11] MEDS: Pantoprazole Sodium 40 MG in 0.9% Normal Saline (100mL MB+) 100 ML 300 MG IV (16:05)
--- NOTE | 2025-03-11 16:16 | PCM.HOSP.N ---
Hospitalist Note Called by anesthesiologist this afternoon to discuss possible need for admission for the patient post EGD. Medical history significant for prior PE on Eliquis, asthma, class I obesity, and persistent abdominal pain with nausea, bloating and acid reflux symptoms. She had an EGD done today with Dr. Hassan that showed bilious gastric fluid, erythematous mucosa in the gastric body is biopsied, and erythematous duodenopathy that was biopsied. Dr. Hassan noted that she was okay for discharge home after the procedure. On chart review, EGD results today appear fairly similar to EGD results from 05/2024. However, in the PACU patient was reporting chest pain/heaviness and shortness of breath. She was given 2 doses of albuterol with only mild relief of symptoms. Anesthesiologist noted that her oxygen saturations was remaining in the low 90s after the treatments as well. I saw the patient in the PACU shortly afterward. Patient was mildly fatigued appearing but otherwise sitting back fairly comfortably in bed, conversing normally and appeared in no acute distress. She was normotensive, oxygen saturations at rest were in the 95 to 97% range, and she was in normal sinus rhythm with heart rate in the 70s. She did have a few dry coughing episodes during our encounter. Noted that with her asthma, she will use her inhaler 1-2 times daily with mild relief of symptoms. She does have ongoing reflux with chest discomfort due to this. Importantly, she was seen in the ED here on 03/02 for similar chest pain. CTA chest was negative for PE and lung vora were clear. Her chest pain improved somewhat there without any intervention (she refused GI cocktail noting it would not help) and she was discharged home. She feels like her pain today is somewhat similar to the pain that day. I obtained a chest x-ray in PACU and lung vora were clear and there were no other concerning findings. Eliquis has been held for 4 days prior to this EGD, but it is highly unlikely patient would develop a significant PE in that timeframe. I observed as patient ambulated to the bathroom and her oxygen saturations remained in the mid 90s. I suspect that her chest discomfort/heaviness is primarily due to the EGD procedure today as well as ongoing bilious fluid in the stomach leading to acid reflux. Will give patient a dose of IV Protonix 40 mg now. Patient will then be okay for discharge home.
== END 2025-03-11 16:54 | disposition home or self-care (01) ==
LOC: EN 11:19 → AC 11:20
PROVIDERS: PCP Family Medicine; Referring Provider Family Medicine; Visit Provider Internal Medicine Gastroenterology
PROC: 0DJ08ZZ Inspection of Upper Intestinal Tract, Via Natural or Artificial Opening Endoscopic (ICD-10-PCS; CPT 43235; principal; 2025-03-11 12:25)
DX: K21.9 Gastro-esophageal reflux disease without esophagitis (principal); Z90.49 Acquired absence of other specified parts of digestive tract; J45.909 Unspecified asthma, uncomplicated; K58.0 Irritable bowel syndrome with diarrhea; E66.811 Obesity, class 1; R07.9 Chest pain, unspecified; E87.6 Hypokalemia; Z86.711 Personal history of pulmonary embolism; I10 Essential (primary) hypertension; Z79.899 Other long term (current) drug therapy; Z79.01 Long term (current) use of anticoagulants
CPT/HCPCS: 43239; 44361; 71045; 88305; 88342; 94640; A4216; J2405

== ENCOUNTER → 2025-05-08 | Outpatient (CLI) | payer MEDICAID, SELFPAY ==
--- NOTE | 2025-05-08 12:08 | US_ITS ---
PROCEDURE: KIDNEY AND BLADDER 05/08/2025 REASON FOR EXAM: RIGHT FLANK PAIN, HISTORY STONES TECHNIQUE: Procedure Code: USKI Modality: US Procedure: KIDNEY AND BLADDER COMPARISON: CT scan of the abdomen and pelvis dated October 23, 2024. FINDINGS: Kidneys: Normal renal sizes, parenchymal thicknesses, and echotextures. [place]: No evidence of hydronephrosis. Cysts or Masses: No cysts or large solid renal masses. Other: None RIGHT Kidney Size: 10.4 cm x 4.8 cm x 4.9 cm Cortical Thickness (if discernible): 13 mm (>6mm is normal) LEFT Kidney Size: 11.5 cm x 4.8 cm x 5.6 cm Cortical Thickness (if discernible): 13 (>6mm is normal) Normal appearing urinary bladder. US/Kidney and Bladder IMPRESSION: NORMAL RENAL ULTRASOUND. Reading Location: [id number]
== END | disposition home or self-care (01) ==
PROVIDERS: PCP Family Medicine; Referring Provider Urology; Visit Provider Urology
DX: R10.9 Unspecified abdominal pain (principal)
CPT/HCPCS: 76770